=== PATIENT | female | born 1950 | race Caucasian/White ===

== ENCOUNTER → 2016-08-05 | Outpatient (CLI) | payer OTHER ==
[~2016-08-05] VITALS: Ht 165.1 cm; Wt 130.8 kg
[~2016-08-05] MED LIST: ADVIN50/60 INH; ALBU0.08 INH; ALBUAER2 INH; ASPI81TA28 PO; B-COCAP2 PO; CINN500T PO; CLOP1TAB5 PO; CRAN1000 PO; FERR325T5 PO; FLUC150T PO; GFNSR600 PO; GLC500 PO; INSU70IN2 SC; INSUINJ4 SQ; LAMO200T38 PO; LORA10TA5 PO; LORA1TAB13 PO; LPR25 PO; MAGN1CAP2 PO; MULTTAB58 PO; NVLGI SC; OMEG10007 PO; OXCA150T2 PO; OXGN; PANT40TA PO; SALINE INTNAS; SIMV10TA5 PO; SNG10 PO; TIOTCAP INH; TRIA1SPR2 NAE; TYLER650 PO
[2016-08-05 12:06] VITALS: Ht 165.1 cm; Wt 130.8 kg
--- NOTE | 2016-08-05 12:49 | PAT Medication Instructions ---
Service Date August 05, 2016. Current Home Medication List Acetaminophen (Tylenol Arthitis Ext Rel), 1-2 TAB PO PRN PRN for RN Albuterol (Ventolin), 2 PUFFS INH QID PRN for SOB/Wheezing Albuterol Soln (Proventil 0.083% 2.5MG/3ML), 2.5 MG INH QIDPRN Aspirin (Aspirin Ec), 81 MG PO QAM Cinnamon (Cinnamon), 1,000 MG PO BID Clopidogrel Bisulfate (Plavix), 75 MG PO QAM Cranberry (Vaccinium Macrocarp (Cranberry Juice Extract), 1,000 MG PO BID Ferrous Sulfate (Ferrous Sulfate), 325 MG PO HS Fish Oil ([place]-3), 1 CAP PO QAM Fluconazole (Diflucan), 150 MG PO UD PRN for RN Fluticasone Prop/Salmeterol (Advair Diskus 500/50 60 Dose), 1 PUFF INH BID Insulin Aspart (Novolog), 0 SC WM PRN for BLOOD SUGAR >175 Insulin Glargine (Lantus Solostar Pen), 60 UNITS SQ QAM Insulin Isophan/Regular (Novolin 70/30), 60 UNITS SC BID Lamotrigine (Lamictal), 100 MG PO HS Loratadine (Claritin), 10 MG PO HS Lorazepam (Lorazepam), 0.5 MG PO DAILY PRN for Anxiety Magnesium Oxide (Mg Supplement (Magnesium), 400 MG PO BID Metformin HCL (Glucophage *), 1,000 MG PO BID Metoprolol Tartrate (Lopressor), 12.5 MG PO BID Montelukast (Singulair *), 10 MG PO HS Multiple Vitamin (Multivitamin), 1 TAB PO QAM Oxcarbazepine (Trileptal), 150 MG PO HS Oxygen (Oxygen), 2 LITERS NA PRN Pantoprazole (Protonix), 40 MG PO HS Simvastatin (Zocor), 10 MG PO HS Tiotropium [place] (Spiriva Handihaler), 1 CAP INH QPM Triamcinolone Acetonide (Nasal (Nasacort-Aq Nasal Inh), 2 SPRAYS ANIBAL QPM Vitamin B Cmplx/Vitc/Folic Ac (Nephrocaps), 1 CAP PO QAM [Saline Nasal], 1-2 SPRAYS INTNAS BID PRN for director of operations support Instructions For Your Scheduled Surgery Clopidogrel Bisulfate (Plavix), 75 MG PO QAM (patient starting holding 08/02/16 per surgeon and PCP instructions) Fluconazole (Diflucan), 150 MG PO UD PRN for RN (not taking currently- only takes with antibiotics) Aspirin (Aspirin Ec), 81 MG PO QAM (patient will check with surgeon for instructions) Triamcinolone Acetonide (Nasal (Nasacort-Aq Nasal Inh), 2 SPRAYS ANIBAL QPM ( patient will check with surgeon for instructions) Saline Nasal 1-2 SPRAYS INTNAS BID PRN for RN (patient will check with surgeon for instructions) - Hold the following medications starting today 08/05/16 Fish Oil ([place]-3), 1 CAP PO QAM Cranberry (Vaccinium Macrocarp (Cranberry Juice Extract), 1,000 MG PO BID Cinnamon (Cinnamon), 1,000 MG PO BID - Hold the following medications 48 hours prior to surgery: Metformin HCL (Glucophage *), 1,000 MG PO BID (last dose will be in the morning on 08/06/16) - Hold the following medications the morning of surgery: Vitamin B Cmplx/Vitc/Folic Ac (Nephrocaps), 1 CAP PO QAM Multiple Vitamin (Multivitamin), 1 TAB PO QAM Magnesium Oxide (Mg Supplement (Magnesium), 400 MG PO BID Insulin Aspart (Novolog), 0 SC WM PRN for BLOOD SUGAR >175 Insulin Isophan/Regular (Novolin 70/30), 60 UNITS SC BID - Take the following medications the morning of surgery with a sip of water: Metoprolol Tartrate (Lopressor), 12.5 MG PO BID Lorazepam (Lorazepam), 0.5 MG PO DAILY PRN for Anxiety Fluticasone Prop/Salmeterol (Advair Diskus 500/50 60 Dose), 1 PUFF INH BID Albuterol (Ventolin), 2 PUFFS INH QID PRN for SOB/Wheezing (bring with you to hospital on day of surgery) Albuterol Soln (Proventil 0.083% 2.5MG/3ML), 2.5 MG INH QIDPRN (if needed) Acetaminophen (Tylenol Arthitis Ext Rel), 1-2 TAB PO PRN PRN for RN (if needed) - Take the following medications as scheduled the night before surgery: Tiotropium [place] (Spiriva Handihaler), 1 CAP INH QPM Pantoprazole (Protonix), 40 MG PO HS Simvastatin (Zocor), 10 MG PO HS Oxcarbazepine (Trileptal), 150 MG PO HS Montelukast (Singulair *), 10 MG PO HS Metoprolol Tartrate (Lopressor), 12.5 MG PO BID Magnesium Oxide (Mg Supplement (Magnesium), 400 MG PO BID Lorazepam (Lorazepam), 0.5 MG PO DAILY PRN for Anxiety Lamotrigine (Lamictal), 100 MG PO HS Loratadine (Claritin), 10 MG PO HS Insulin Aspart (Novolog), 0 SC WM PRN for BLOOD SUGAR >175 (if needed) Insulin Isophan/Regular (Novolin 70/30), 60 UNITS SC BID Fluticasone Prop/Salmeterol (Advair Diskus 500/50 60 Dose), 1 PUFF INH BID Ferrous Sulfate (Ferrous Sulfate), 325 MG PO HS Albuterol (Ventolin), 2 PUFFS INH QID PRN for SOB/Wheezing Albuterol Soln (Proventil 0.083% 2.5MG/3ML), 2.5 MG INH QIDPRN Acetaminophen (Tylenol Arthitis Ext Rel), 1-2 TAB PO PRN PRN for RN - For Insulin Dependent Diabetic patients: Test blood sugar A.M. of surgery. - If blood sugar is greater than 150, take half of your morning dose of: Lantus 30 units - If blood sugar is less than 150, do not take any: Lantus If you have any questions please call us at [phone] or [phone] ( [facility]) or [phone]
[2016-08-05 13:16] LABS: BASO % 0.7 %; BASO ABS # 0.06 K/uL (0-0.2); COMPLETE YES; EOS % 2.7 %; HEMATOCRIT 38.8 % (37-47); IG% 0.4 %; LYMPH % 28.7 %; LYMPH ABS # 2.63 K/uL (1.2-3.4); MEAN CELL VOLUME 90.7 fL (80-100); MEAN PLATELET VOLUME 10.5 fL (7.4-10.4); MONO % 5.8 %; NEUT % 61.7 %; PLATELET COUNT 187 K/uL (130-400); RED BLOOD COUNT 4.28 M/uL (4.2-5.4); WHITE BLOOD COUNT 9.16 K/uL (4.8-10.8)
== END | disposition home or self-care (01) ==
LOC: C.LAB 08:00 → EDSTATUS 08-08 11:38
PROVIDERS: ATTEND Otolaryngology
DX: Z01.818 Encounter for other preprocedural examination (principal)

== ENCOUNTER → 2016-08-05 | Outpatient (CLI) | payer OTHER ==
[~2016-08-05] MED LIST changes: +ALBINS/ INH; +B-CO1CAP17 PO; +INSDGI SC; +METF1000 PO; +MONT1TAB3 PO; +NVLG SQ; +SPRIN/30 INH; +TRIA1SPR4 NAE; +VNTHFA/IN INH
--- NOTE | 2016-08-05 15:57 | DIAGNOSTIC IMAGING REPORT ---
CT SCAN OF THE PARANASAL SINUSES CLINICAL HISTORY: Sinusitis. COMPARISON STUDY: CT scan of the paranasal sinuses dated 06/25/2011. TECHNIQUE: High-resolution CT scan of the paranasal sinuses is performed. Images are reviewed in the axial, sagittal, and coronal planes. IV contrast was not administered for this examination. CT DOSE: 594.92 mGy.cm FINDINGS: Maxillary antra: Clear bilaterally. A thin bony septation is seen inferiorly on the left. There is a 9 mm cortical defect present within the posterior wall the right maxillary antrum as seen on image #127. Anterior ethmoid sinuses: Clear. Posterior ethmoid sinuses: Clear. Sphenoid sinuses: Clear. Frontal sinuses: Clear. Ostiomeatal complexes: Patent bilaterally. Frontoethmoidal and sphenoethmoidal recesses: Patent bilaterally. Carotid arteries: The carotid arteries are protuberant but covered and without septal attachments. Ethmoid roofs: There is slightly asymmetric elevation of the right ethmoid roof as compared to the left. Nasal turbinates: Normal in appearance. Nasal septum: There is mild left were deviation of the bony nasal septum. Optic nerves: Covered. Orbits: The bony orbits are intact. Orbital contents are normal in appearance noting bilateral ocular lens implants. Calvarium: The skeletal structures are osteopenic. The imaged calvarium is normal in appearance. Mastoid air cells: Well pneumatized. Brain parenchyma: Partially visualized brain parenchyma is within normal limits. IMPRESSION: No paranasal sinus disease is identified. See above. Electronically signed by: Semaj Gonzalez M.D. 08/05/2016 3:56 PM Dictated Date/Time: 08/05/2016 3:52 PM
== END | disposition home or self-care (01) ==
LOC: C.CTS 15:38
PROVIDERS: ATTEND Otolaryngology
DX: J32.9 Chronic sinusitis, unspecified (principal)

== ENCOUNTER 2017-01-18 21:12 | Emergency (ER) | payer OTHER ==
[~2017-01-18] VITALS: Ht 166.4 cm; Wt 131.5 kg
[~2017-01-18 21:12] MED LIST changes: -ALBINS/ INH; -B-CO1CAP17 PO; -GFNSR600 PO; -INSDGI SC; -METF1000 PO; -MONT1TAB3 PO; -NVLG SQ; -SPRIN/30 INH; -TRIA1SPR4 NAE; -VNTHFA/IN INH
[2017-01-18 21:28] VITALS: TEMP 36.9; Ht 166.4 cm; Wt 131.5 kg
[2017-01-18] MEDS ORDERED: ACETAMINOPHEN 325 MG TAB PO STA (21:49)
--- NOTE | 2017-01-18 22:41 | DIAGNOSTIC IMAGING REPORT ---
R SHOULDER MIN 2 VIEWS ROUTINE CLINICAL HISTORY: Right shoulder pain following fall. COMPARISON: Chest CT May 17, 2014. FINDINGS: Alignment of the right shoulder is anatomic. No acute fractures are identified. There is mild to moderate arthritis of the right shoulder. Penetration is suboptimal on this portable exam. IMPRESSION: Technically compromised exam given suboptimal penetration but no acute fracture or dislocation of the right shoulder identified. Electronically signed by: Hola Méndez M.D. 01/18/2017 10:40 PM Dictated Date/Time: 01/18/2017 10:37 PM
--- NOTE | 2017-01-18 22:57 | EMERGENCY ROOM VISIT NOTE ---
History First contact with patient: 21:34 Chief Complaint: SHOULDER PAIN Stated Complaint: Fall, Right shoulder pain History of Present Illness The patient is a 66 year old female who presents to the Emergency Room with complaints of right shoulder pain. The patient states that she was walking into her living room when she tripped over her slippers and fell, striking her right shoulder. The patient reports that she has pain in the anterior right shoulder. She rates her discomfort a 10/10. She states the shoulder pain is worse with movement and she has difficulty moving the shoulder. She denies any previous injuries to the shoulder. She does report hearing a cracking sensation in the shoulder when she fell. The patient denies any dizziness/ lightheadedness related to the fall. Review of Systems A 6 point review of systems was reviewed with the patient with pertinent positives and negatives as per history of present illness. All else were negative. Past Medical/Surgical History Medical Problems: (1) Anxiety disorder (2) Arthritis (3) Asthma (4) Benign hypertension (5) Bipolar disorder (6) Bronchitis (7) COPD (chronic obstructive pulmonary disease) (8) Diabetes mellitus (9) Fracture, ulna, proximal (10) Heart disease (11) Pneumonia (12) Ulcers Family History Diabetes mellitus Social History Smoking Status: Former Smoker Alcohol Use: none Marital Status: Housing Status: lives with family Occupation Status: unemployed Current/Historical Medications Scheduled Aspirin (Aspirin Ec), 81 MG PO QAM Cinnamon (Cinnamon), 1,000 MG PO BID Clopidogrel Bisulfate (Plavix), 75 MG PO QAM Cranberry (Vaccinium Macrocarp (Cranberry Juice Extract), 1,000 MG PO BID Ferrous Sulfate (Ferrous Sulfate), 325 MG PO HS Fish Oil ([place]-3), 1 CAP PO QPM Fluticasone Prop/Salmeterol (Advair Diskus 500/50 60 Dose), 1 PUFF INH BID Home O2 Therapy (Oxygen), 2 LITERS NA PRN Insulin Aspart (Novolog), SQ TIDM Insulin Glargine (Lantus), 60 UNITS SC AMPM Insulin Isophan/Regular (Novolin 70/30), 60 UNITS SC BID Lamotrigine (Lamictal), 100 MG PO HS Loratadine (Claritin), 10 MG PO HS Magnesium Oxide (Mg Supplement (Magnesium), 400 MG PO BID Metformin Hcl (Glucophage), 1,000 MG PO BID Metoprolol Tartrate (Lopressor), 12.5 MG PO BID Montelukast Sodium (Singulair), 10 MG PO DAILY Multiple Vitamin (Multivitamin), 1 TAB PO QAM Pantoprazole (Protonix), 40 MG PO HS Simvastatin (Zocor), 10 MG PO HS Tiotropium [place] (Spiriva Handihaler), 1 CAP INH DAILY Vitamin B Cmplx/Vitc/Folic Ac (Nephrocaps), 1 CAP PO DAILY Scheduled PRN Acetaminophen (Tylenol Arthitis Ext Rel), 1-2 TAB PO PRN PRN for RN Albuterol Hfa (Ventolin Hfa), 2 PUFFS INH Q6H PRN for SOB/Wheezing Albuterol Sulf (Proventil 0.083% 2.5MG/3ML), 2.5 MG INH QID PRN for SOB/Wheezing Fluconazole (Diflucan), 150 MG PO UD PRN for RN Lorazepam (Lorazepam), 0.5 MG PO DAILY PRN for Anxiety [Saline Nasal], 1-2 SPRAYS INTNAS BID PRN for RN Miscellaneous Medications Triamcinolone Acetonide (Nasal (Nasacort Allergy 24Hr), 2 SPRAY ANIBAL Allergies Coded Allergies: Cephalosporins (Verified Allergy, Intermediate, RASH, 01/18/17) Replaces KEFUROX 1.5 G Sulfa Antibiotics (Verified Allergy, Intermediate, "Sulfa Drugs = rash", 01/18/17) Terconazole (Verified Allergy, Intermediate, ITCHING, BURNING, 01/18/17) Penicillin G (Verified Allergy, Mild, RASH, 01/18/17) Amoxicillin (Verified Allergy, Unknown, UNKNOWN, 01/18/17) Clarithromycin (Verified Allergy, Unknown, UNKNOWN, 01/18/17) Clavulanic Acid (Verified Allergy, Unknown, UNKNOWN, 01/18/17) Adhesives (Verified Adverse Reaction, Mild, BAND-AIDS = SKIN IRRITATION, 01/18/17) Physical Exam Vital Signs Date Time Temp Pulse Resp B/P (MAP) Pulse Ox O2 Delivery O2 Flow Rate FiO2 01/18/17 23:28 78 20 146/95 95 01/18/17 21:28 36.9 86 20 137/83 96 Room Air Physical Exam VITALS: Vitals are noted on the nurse's note and reviewed by myself. Vital signs stable. GENERAL: This is a 66-year-old female, in no acute distress, nondiaphoretic, well-developed well-nourished. SKIN: No lacerations, abrasions or ecchymosis. HEART: Regular rate and rhythm without murmurs gallops or rubs. LUNGS: Clear to auscultation bilaterally without wheezes, rales or rhonchi. MUSCULOSKELETAL: There is tenderness to palpation in the anterior right shoulder. There is no tenderness to the posterior lateral shoulder. No tenderness of the clavicle. No tenderness of the cervical spine. Limited range of motion secondary to patient discomfort. Fundraiser strength 5/5. Radial pulse 2+. NEURO: Patient was alert and oriented to person place and time. Normal sensation to light and sharp touch. Medical Decision & Procedures ER Provider Diagnostic Interpretation: R SHOULDER MIN 2 VIEWS ROUTINE FINDINGS: Alignment of the right shoulder is anatomic. No acute fractures are identified. There is mild to moderate arthritis of the right shoulder. Penetration is suboptimal on this portable exam. IMPRESSION: Technically compromised exam given suboptimal penetration but no acute fracture or dislocation of the right shoulder identified. Medications Administered Medications (Trade) Dose Ordered Sig/Vu Route Start Time Stop Time Status Last Admin Dose Admin Acetaminophen (Tylenol Tab) 650 mg NOW STAT PO 01/18/17 21:49 01/18/17 21:50 DC 01/18/17 22:43 650 MG Medical Decision Differential diagnosis includes fracture, contusion, dislocation, ligamentous injury, among others. The patient is a 66-year-old female who presents to the ED complaining of right shoulder pain after a mechanical fall. X-rays were obtained and read by radiology and show no acute findings. The patient was placed in an arm sling for comfort. Conservative measures were discussed. She was encouraged to follow-up with orthopedics as needed for any worsening or new/concerning symptoms. She verbalized her understanding of my assessment and treatment plan and was discharged home in good condition. Blood Pressure Screening: Patient was found to have a slightly elevated blood pressure due to circumstances. I do not believe that the patient requires hypertension monitoring. Medication reconciliation: I attest that I have personally reviewed the patient 's current medication list. Impression Primary Impression: Contusion of right shoulder Departure Information Dispostion Home / Self-Care Condition GOOD Referrals Kopinski, Sabine, D.O. (PCP) Patient Instructions My [facility] Additional Instructions You have been treated in the Emergency Department for Shoulder Pain. For pain control, you can use the following inew-rls-wzyskck medicines (if >12 yo): - Regular strength (325mg/tab) Tylenol (acetaminophen) 2 tabs every 4-6 hours as needed. Do not exceed 12 tablets in a 24 hour period. Avoid taking more than 4 grams (4000 mg) of Tylenol per day. This includes any other sources of acetaminophen you may take on a regular basis. If this is a recent injury (<24 hrs), ice can be applied to the area of pain for the first 3 days to help decrease pain and inflammation. Keep the sling in place for the next few days as needed for pain. Be sure to take the arm out of the sling a few times a day and perform range of motion. Follow-up with orthopedics if you have persistent pain in 4-5 days or any new/ concerning symptoms. Return to the Emergency Department if your current symptoms worsen despite treatment course outlined above, or if you develop any of the following symptoms : intractable pain despite aforementioned treatment course or new onset of numbness or tingling of the arm. Problem Qualifiers Primary Impression: Contusion of right shoulder Encounter type: initial encounter Qualified Codes: S40.011A - Contusion of right shoulder, initial encounter
[2017-01-18] MEDS ORDERED: TRIA1SPR4 NAE (23:04)
[2017-01-18] MEDS ORDERED: SPRIN/30 INH (23:04)
[2017-01-18] MEDS ORDERED: INSDGI SC (23:04)
[2017-01-18] MEDS ORDERED: B-CO1CAP17 PO (23:04)
[2017-01-18] MEDS ORDERED: VNTHFA/IN INH (23:04)
[2017-01-18] MEDS ORDERED: ALBINS/ INH (23:04)
[2017-01-18] MEDS ORDERED: MONT1TAB3 PO (23:04)
[2017-01-18] MEDS ORDERED: NVLG SQ (23:04)
[2017-01-18] MEDS ORDERED: METF1000 PO (23:04)
[2017-01-18 23:28] VITALS: BP 146/95; PULSE 78; O2SAT 95
== END 2017-01-18 23:29 | disposition home or self-care (01) ==
LOC: EDBD 21:12 → C.EDB 21:29
DX: S40.011A Contusion of right shoulder, initial encounter (principal); W01.10XA Fall on same level from slipping, tripping and stumbling with subsequent striking against unspecified object, initial encounter; Y93.01 Activity, walking, marching and hiking; Y99.8 Other external cause status; Y92.008 Other place in unspecified non-institutional (private) residence as the place of occurrence of the external cause; M19.90 Unspecified osteoarthritis, unspecified site; J45.909 Unspecified asthma, uncomplicated; J44.9 Chronic obstructive pulmonary disease, unspecified; E11.9 Type 2 diabetes mellitus without complications; F31.9 Bipolar disorder, unspecified; Z87.01 Personal history of pneumonia (recurrent); Z87.891 Personal history of nicotine dependence; Z83.3 Family history of diabetes mellitus; Z79.02 Long term (current) use of antithrombotics/antiplatelets; Z79.4 Long term (current) use of insulin; Z79.82 Long term (current) use of aspirin; Z79.899 Other long term (current) drug therapy

== ENCOUNTER 2017-06-26 11:56 | Inpatient (IN) | payer OTHER ==
[~2017-06-26] VITALS: Ht 165.1 cm; Wt 129.1 kg
[~2017-06-26 11:56] MED LIST changes: +ALBINS/ INH; -ALBU0.08 INH; -ALBUAER2 INH; +B-CO1CAP17 PO; -B-COCAP2 PO; -GLC500 PO; +INSDGI SC; -INSUINJ4 SQ; +LAMO200T35 PO; -LAMO200T38 PO; -LORA10TA5 PO; +LORA10TA6 PO; +METF1000 PO; +MONT1TAB3 PO; +NVLG SQ; -NVLGI SC; -OXCA150T2 PO; -SNG10 PO; +SPRIN/30 INH; -TIOTCAP INH; -TRIA1SPR2 NAE; +TRIA1SPR4 NAE; +VNTHFA/IN INH
[2017-06-26] MEDS ORDERED: SODIUM CHLORIDE 0.9% 500ML 500 ML IV STA ×2 (12:11→13:34)
[2017-06-26 12:27] LABS: BASO % 0.5 %; BASO ABS # 0.05 K/uL (0-0.2); EOS ABS # 0.29 K/uL (0-0.5); HEMATOCRIT 42.4 % (37-47); HEMOGLOBIN 14.1 g/dL (12.0-16.0); IG# 0.04 K/uL (0.00-0.02); LYMPH % 31.2 %; LYMPH ABS # 3.01 K/uL (1.2-3.4); MEAN CELL VOLUME 91.6 fL (80-100); MEAN CORPUSCULAR HEMOGLOBIN 30.5 pg (25-34); MEAN CORPUSCULAR HGB CONC 33.3 g/dl (32-36); MEAN PLATELET VOLUME 10.7 fL (7.4-10.4); MONO % 8.9 %; MONO ABS # 0.86 K/uL (0.11-0.59); PLATELET COUNT 212 K/uL (130-400); RED CELL DISTRIBUTION WIDTH CV 14.6 % (11.5-14.5); RED CELL DISTRIBUTION WIDTH SD 49.6 fL (36.4-46.3); WHITE BLOOD COUNT 9.65 K/uL (4.8-10.8)
--- NOTE | 2017-06-26 12:28 | EMERGENCY ROOM VISIT NOTE ---
History Report prepared by Mike: Irma Daigle Under the Supervision of: Dr. David Lester M.D. First contact with patient: 12:08 Stated Complaint: afib History of Present Illness The patient is a 66 year old female who presents to the Emergency Room with complaints of intermittent heart palpitations beginning two weeks ago. The patient is coming from Dr. Wells-Cardiology's office where she was being seen for her palpitations and was found in Atrial fibrillation. The patient had an episode of A-fib in 2012 which resided without intervention. She notes some shortness of breath and a cough. She denies any chest pain, fever, body aches, or chills. The patient states she is getting over a sinus infection. She reports she stopped her Levaquin on Thursday. The patient is on Plavix. The patient follows up with Dr. Irene. The patient has a history of septic pneumonic, lymphedema, and C.Diff Source of History: patient Onset: two weeks ago Position: other (generalized) Quality: other (palpations) Timing: intermittent Associated Symptoms: + cough, + SOB, No fevers, No chills, No chest pain Review of Systems See HPI for pertinent positives and negatives. A total of ten systems were reviewed and were otherwise negative. Past Medical & Surgical Medical Problems: (1) Arthritis (2) COPD (chronic obstructive pulmonary disease) (3) Diabetes mellitus, type II (4) H/O: CVA (cerebrovascular accident) (5) HLD (hyperlipidemia) (6) Mood disorder (7) REENA (obstructive sleep apnea) (8) Paroxysmal atrial fibrillation (9) RBBB Social History Problems: (1) Benign hypertension (2) Bipolar disorder Family History Diabetes mellitus Social History Smoking Status: Former Smoker Alcohol Use: none Marital Status: Housing Status: lives with family Occupation Status: unemployed Current/Historical Medications Scheduled Aspirin (Aspirin Ec), 81 MG PO QAM Atorvastatin (Lipitor), 40 MG PO DAILY Cinnamon (Cinnamon), 1,000 MG PO BID Clopidogrel Bisulfate (Plavix), 75 MG PO QAM Cranberry (Vaccinium Macrocarp (Cranberry Juice Extract), 1,000 MG PO BID Ferrous Sulfate (Ferrous Sulfate), 325 MG PO BID Fish Oil ([place]-3), 1 CAP PO QPM Fluticasone Prop/Salmeterol (Advair Diskus 500/50 60 Dose), 1 PUFF INH BID Home O2 Therapy (Oxygen), 2 LITERS NA PRN Insulin Aspart Protamine & Asp (Novolog Mix 70/30), 40 UNITS SC QPM Insulin Glargine (Lantus), 40 UNITS SC AMPM Insulin Isophan/Regular (Novolin 70/30), 45 UNITS SC QAM Lamotrigine (Lamictal), 100 MG PO HS Levocetirizine Dihydrochloride (Xyzal Allergy 24Hr), 5 MG PO DAILY Liraglutide (Victoza), 1 DOSE SQ DAILY Magnesium Oxide (Mg Supplement (Magnesium), 400 MG PO BID Metformin Hcl (Glucophage), 1,000 MG PO BID Metoprolol Tartrate (Lopressor), 12.5 MG PO BID Montelukast Sodium (Singulair), 10 MG PO DAILY Multiple Vitamin (Multivitamin), 1 TAB PO QAM Omeprazole (Cvs Omeprazole), 20 MG PO DAILY Pantoprazole (Protonix), 40 MG PO HS Tiotropium [place] (Spiriva Handihaler), 1 CAP INH DAILY Vitamin B Cmplx/Vitc/Folic Ac (Nephrocaps), 1 CAP PO DAILY Scheduled PRN Acetaminophen (Tylenol Arthitis Ext Rel), 1-2 TAB PO PRN PRN for RN Albuterol Hfa (Ventolin Hfa), 2 PUFFS INH Q6H PRN for SOB/Wheezing Albuterol Sulf (Proventil 0.083% 2.5MG/3ML), 2.5 MG INH QID PRN for SOB/Wheezing Fluconazole (Diflucan), 150 MG PO UD PRN for RN Lorazepam (Lorazepam), 0.5 MG PO DAILY PRN for Anxiety Miscellaneous Medications Triamcinolone Acetonide (Nasal (Nasacort Allergy 24Hr), 2 SPRAY ANIBAL Allergies Coded Allergies: Cephalosporins (Verified Allergy, Intermediate, RASH, 06/26/17) Replaces KEFUROX 1.5 G Sulfa Antibiotics (Verified Allergy, Intermediate, "Sulfa Drugs = rash", ) Terconazole (Verified Allergy, Intermediate, ITCHING, BURNING, 06/26/17) Penicillin G (Verified Allergy, Mild, RASH, 06/26/17) Amoxicillin (Verified Allergy, Unknown, UNKNOWN, 06/26/17) Clarithromycin (Verified Allergy, Unknown, UNKNOWN, 06/26/17) Clavulanic Acid (Verified Allergy, Unknown, UNKNOWN, 06/26/17) Adhesives (Verified Adverse Reaction, Mild, BAND-AIDS = SKIN IRRITATION, ) Physical Exam Vital Signs Date Time Temp Pulse Resp B/P (MAP) Pulse Ox O2 Delivery O2 Flow Rate FiO2 06/26/17 14:18 94 06/26/17 13:26 91 16 95 Room Air 06/26/17 13:01 137 16 104/80 93 Room Air 06/26/17 12:50 139 20 124/94 94 Room Air 06/26/17 12:21 152 06/26/17 12:16 95 Room Air 06/26/17 12:11 36.3 142 22 120/86 95 Room Air 06/26/17 12:00 95 Room Air Physical Exam GENERAL: Awake, alert, fatigued-appearing, in no distress HENT: Normocephalic, atraumatic. Oropharynx unremarkable. Dry mucus membranes. EYES: Normal conjunctiva. Sclera non-icteric. NECK: Supple. No nuchal rigidity. FROM. No JVD. RESPIRATORY: Clear to auscultation. CARDIAC: Irregularly irregular rhythm. Extremities warm and well perfused. Pulses equal. ABDOMEN: Soft, non-distended. No tenderness to palpation. No rebound or guarding. No masses. RECTAL: Deferred. MUSCULOSKELETAL: Chest examination reveals no tenderness. The back is symmetrical on inspection without obvious abnormality. There is no CVA tenderness to palpation. No joint edema. LOWER EXTREMITIES: Calves are equal size bilaterally and non-tender. No edema. No discoloration. NEURO: Normal sensorium. No sensory or motor deficits noted. SKIN: No rash or jaundice noted. Medical Decision & Procedures ER Provider Diagnostic Interpretation: Radiology results as stated below per my review and radiologist interpretation: CHEST ONE VIEW PORTABLE FINDINGS: Mild stable cardiomegaly. Chronic prominence of pulmonary vasculature. Diaphragms are smooth. No focal infiltrate. IMPRESSION: Slight chronic prominence of the pulmonary vasculature. No acute process. The above report was generated using voice recognition software. It may contain grammatical, syntax or spelling errors. Electronically signed by: Anup Mcmullen M.D. Laboratory Results 06/26/17 12:00 Red Blood Count 4.63, Mean Corpuscular Volume 91.6, Mean Corpuscular Hemoglobin 30.5, Mean Corpuscular Hemoglobin Concent 33.3, Mean Platelet Volume 10.7, Neutrophils (%) (Auto) 56.0, Lymphocytes (%) (Auto) 31.2, Monocytes (%) (Auto) 8.9, Eosinophils (%) (Auto) 3.0, Basophils (%) (Auto) 0.5, Neutrophils # (Auto) 5.40, Lymphocytes # (Auto) 3.01, Monocytes # (Auto) 0.86, Eosinophils # (Auto) 0.29, Basophils # (Auto) 0.05 06/26/17 12:00 Test 06/26/17 12:00 06/26/17 12:20 06/26/17 12:38 White Blood Count 9.65 K/uL (4.8-10.8) Red Blood Count 4.63 M/uL (4.2-5.4) Hemoglobin 14.1 g/dL (12.0-16.0) Hematocrit 42.4 % (37-47) Mean Corpuscular Volume 91.6 fL (80-100) Mean Corpuscular Hemoglobin 30.5 pg (25-34) Mean Corpuscular Hemoglobin Concent 33.3 g/dl (32-36) Platelet Count 212 K/uL (130-400) Mean Platelet Volume 10.7 fL (7.4-10.4) Neutrophils (%) (Auto) 56.0 % Lymphocytes (%) (Auto) 31.2 % Monocytes (%) (Auto) 8.9 % Eosinophils (%) (Auto) 3.0 % Basophils (%) (Auto) 0.5 % Neutrophils # (Auto) 5.40 K/uL (1.4-6.5) Lymphocytes # (Auto) 3.01 K/uL (1.2-3.4) Monocytes # (Auto) 0.86 K/uL (0.11-0.59) Eosinophils # (Auto) 0.29 K/uL (0-0.5) Basophils # (Auto) 0.05 K/uL (0-0.2) RDW Standard Deviation 49.6 fL (36.4-46.3) RDW Coefficient of Variation 14.6 % (11.5-14.5) Immature Granulocyte % (Auto) 0.4 % Immature Granulocyte # (Auto) 0.04 K/uL (0.00-0.02) Prothrombin Time 10.5 SECONDS (9.0-12.0) Prothromb Time International Ratio 1.0 (0.9-1.1) Anion Gap 9.0 mmol/L (3-11) Est Creatinine Clear Calc Drug Dose 101.8 ml/min Estimated GFR () 96.1 Estimated GFR (Non- 82.9 BUN/Creatinine Ratio 18.7 (10-20) Calcium Level 8.9 mg/dl (8.5-10.1) Magnesium Level 1.8 mg/dl (1.8-2.4) Total Bilirubin 0.6 mg/dl (0.2-1) Direct Bilirubin 0.2 mg/dl (0-0.2) Aspartate Amino Transf (AST/SGOT) 31 U/L (15-37) Alanine Aminotransferase (ALT/SGPT) 43 U/L (12-78) Alkaline Phosphatase 98 U/L (45-117) Pro-B-Type Natriuretic Peptide 372 pg/ml (0-900) Total Protein 6.8 gm/dl (6.4-8.2) Albumin 3.7 gm/dl (3.4-5.0) Lipase 126 U/L (73-393) Thyroid Stimulating Hormone (TSH) 1.510 uIu/ml (0.300-4.500) Hepatitis C Antibody Screen NEG (NEG) Influenza Type A (RT-PCR) Neg for Influ A (NEG) Influenza Type B (RT-PCR) Neg for Influ B (NEG) Urine Color DK YELLOW Urine Appearance CLEAR (CLEAR) Urine pH 5.5 (4.5-7.5) Urine Specific Vader 1.018 (1.000-1.030) Urine Protein NEG (NEG) Urine Glucose (UA) NEG (NEG) Urine Ketones NEG (NEG) Urine Occult Blood NEG (NEG) Urine Nitrite NEG (NEG) Urine Bilirubin NEG (NEG) Urine Urobilinogen NEG (NEG) Urine Leukocyte Esterase MODERATE (NEG) Urine WBC (Auto) 5-10 /hpf (0-5) Urine RBC (Auto) 0-4 /hpf (0-4) Urine Hyaline Casts (Auto) 1-5 /lpf (0-5) Urine Epithelial Cells (Auto) >30 /lpf (0-5) Urine Bacteria (Auto) NEG (NEG) Laboratory results reviewed by me Medications Administered Medications (Trade) Dose Ordered Sig/Vu Route Start Time Stop Time Status Last Admin Dose Admin Sodium Chloride 500 ml @ 999 mls/hr Q31M STAT IV 06/26/17 12:11 06/26/17 12:41 DC 06/26/17 12:38 999 MLS/HR Sodium Chloride 500 ml @ 999 mls/hr Q31M STAT IV 06/26/17 13:34 06/26/17 14:04 DC 06/26/17 13:35 999 MLS/HR ECG Per My Interpretation Indication: palpitations Rate (beats per minute): 138 Rhythm: sinus tachycardia Findings: no acute ischemic change, other (normal axis) Comparison ECG Date: 08/05/16 Change: increased rate compared to prior. REPEAT EKG: Normal sinus 81 bpm, normal axis, RBBB, no acute ischemia. ED Course 1210: The patient was evaluated in room A9. A complete history and physical exam was performed. 1512: I discussed the patient with Dr. Irene Cardiology - He recommends bringing the patient into the hospital for further evaluation. 1527: I updated the patient on the treatment plan and she is agreeable. 1530: I discussed the patient with Dr. George - He will evaluate the patient for further treatment. Medical Decision I reviewed the patient's past medical history, medications, and the nursing notes as described above. Differential diagnosis: Etiologies such as premature contractions, electrolyte abnormality, cardiac dysrhythmia, thyroid dysfunction, pulmonary embolism, infection, gastrointestinal, as well as others were entertained. The patient is a 66-year-old woman with a past medical history of paroxysmal atrial fibrillation who presents to the emergency department for evaluation and admission with atrial fibrillation with RVR from the cardiology clinic (Seen by Dr. Wells) after presenting there for an evaluation for palpitations per [facility]. On arrival the patient is fatigued appearing but no acute distress, afebrile with heart rate in the 140s and vital signs otherwise stable. EKG on arrival shows a regular tachycardia that appears consistent with aflutter with 2 -1 block. Was given 500 cc of NS with subsequent improvement in her rate to the low 100s. The patient was then given additional 500 cc with further improvement with heart rate into the 70s and 80s with repeat EKG demonstrating normal sinus rhythm. Labs otherwise unremarkable including WBC within normal limits. Chest x-ray negative. Case was discussed with Dr. Mosley, the patient's photo studio assistant who is also on-call, who agrees with plan for admission to optimize the patient's rate controlling medications and evaluate the patient for additional anticoagulation given her elevated chads vascular score. Currently the patient is on Aspirin and Plavix. Case was discussed with Patt Velasquez hospitalist, who will admit the patient for further management. Medication Reconcilliation Current Medication List: was personally reviewed by me Blood Pressure Screening Patient's blood pressure: Normal blood pressure Consults Time Called: 1506 Consulting Physician: Dr. Irene Cardiology Returned Call: 1512 I discussed the patient with Dr. Irene Cardiology - He recommends bringing the patient into the hospital for further evaluation. Additional Consults: Time Called: 1516 Consulted Physician: Dr. George Returned Call: 1530 Additional Comments: I discussed the patient with Dr. George - He will evaluate the patient for further treatment. Impression Primary Impression: Atrial flutter with rapid ventricular response Scribe Attestation The scribe's documentation has been prepared under my direction and personally reviewed by me in its entirety. I confirm that the note above accurately reflects all work, treatment, procedures, and medical decision making performed by me. Departure Information Dispostion Being Evaluated By Hospitalist Sabine Mccollum D.O. (PCP)
[2017-06-26 12:35] LABS: ALBUMIN 3.7 gm/dl (3.4-5.0); ALT/SGPT 43 U/L (12-78); BLOOD UREA NITROGEN 14 mg/dl (7-18); CALCIUM 8.9 mg/dl (8.5-10.1); CARBON DIOXIDE 23 mmol/L (21-32); CREATININE 0.76 mg/dl (0.60-1.20); GLUCOSE 139 mg/dl (70-99); LIPASE 126 U/L (73-393); SODIUM 137 mmol/L (136-145)
[2017-06-26] MEDS ORDERED: OMEP20TA40 PO (12:39)
[2017-06-26] MEDS ORDERED: LIRA18IN SQ (12:39)
[2017-06-26] MEDS ORDERED: NVLGI7030 SC (12:39)
[2017-06-26] MEDS ORDERED: LEVO5TAB7 PO (12:39)
[2017-06-26] MEDS ORDERED: ATOR-24 PO (12:39)
[2017-06-26 12:46] LABS: ALKALINE PHOSPHATASE 98 U/L (45-117); AST/SGOT 31 U/L (15-37); TOTAL PROTEIN 6.8 gm/dl (6.4-8.2)
--- NOTE | 2017-06-26 12:51 | DIAGNOSTIC IMAGING REPORT ---
CHEST ONE VIEW PORTABLE CLINICAL HISTORY: CHEST PAIN dyspnea COMPARISON STUDY: 04/18/2015 FINDINGS: Mild stable cardiomegaly. Chronic prominence of pulmonary vasculature. Diaphragms are smooth. No focal infiltrate. IMPRESSION: Slight chronic prominence of the pulmonary vasculature. No acute process. The above report was generated using voice recognition software. It may contain grammatical, syntax or spelling errors. Electronically signed by: Anup Mcmullen M.D. 06/26/2017 12:50 PM Dictated Date/Time: 06/26/2017 12:49 PM
[2017-06-26 14:46] LABS: INFLUENZA A PCR Neg for Influ A (NEG); INFLUENZA B PCR Neg for Influ B (NEG)
[2017-06-26] MEDS ORDERED: ALUMINUM/MAGNESIUM/SIMETH (MAALOX MAX) 30 ML UDC PO PRN (15:45)
[2017-06-26] MEDS ORDERED: NITROGLYCERIN 0.4 MG SL PER TAB CHARGE SL PRN (15:45)
[2017-06-26] MEDS ORDERED: POLYETHYLENE (MIRALAX) 17 GM PACK PO PRN (15:45)
[2017-06-26] MEDS ORDERED: MAGNESIUM HYDROXIDE SUSP 30 ML UDC PO PRN (15:45)
[2017-06-26] MEDS ORDERED: ALBUTEROL HFA 8 GM INHALER INH PRN (16:15)
[2017-06-26] MEDS ORDERED: DABIGATRAN ELEXILATE 75 MG CAP PO ONE (16:15)
[2017-06-26] MEDS ORDERED: ALBUTEROL 0.083% NEBU SOLN 3 ML VIAL INH PRN (16:15)
[2017-06-26] MEDS ORDERED: METOPROLOL TARTRATE 25 MG TAB PO ONE (16:15)
[2017-06-26] MEDS ORDERED: LORAZEPAM 0.5 MG TAB PO PRN (16:15)
--- NOTE | 2017-06-26 16:55 | History and Physical ---
History & Physical Date & Time of Service: Jun 26, 2017 at 16:54 Chief Complaint: afib Primary Care Physician: Sabine Mosley D.O. History of Present Illness Source: patient, clinic records, hospital records Patient is a 66-year-old female with a past medical history of DM II, COPD, paroxysmal A. fib, history of CVA (on aspirin, Plavix) and other problems mentioned below who presents from cardiology clinic with atrial flutter in RVR. Patient endorses palpitations over the past 2 weeks with associated shortness of breath and near syncope. She is recovering from acute sinusitis and finished a course of Levaquin this past Thursday. EKG in clinic today showed a flutter with RVR with a heart rate in 140s. Patient was sent over by Dr. Wells to the ED for further evaluation. Upon arrival, patient was found in a flutter with RVR with a 2:1 block at 138 bpm. Spontaneously converted to normal sinus with a rate of 81 bpm. Patient has had one previous episode of an atrial arrhythmia during a 2013 hospital admission for septic pneumonia in the ICU. Was found to be in A. fib with RVR then and required cardioversion. Was sent home on metoprolol and Pradaxa and followed with cardiology clinic but became asymptomatic and eventually Pradaxa was discontinued. Continues to take Toprol 12.5mg BID. Recently patient began to experience more frequent palpitations and had a 24- hour Holter monitor evaluation, which showed very frequent supraventricular ectopy as well as episodes of A. fib with RVR. HR varied from 61-185 bpm during 24 hour period. Denies any fever, chills, lightheadedness, headache, visual, abdominal pain, nausea, vomiting, or bladder changes, LE swelling. Echocardiogram from 2016 shows normal EF, no wall motion abnormalities. Follows with Dr. Mosley for cardio. Past Medical/Surgical History Medical Problems: (1) Arthritis Status: Chronic (2) COPD (chronic obstructive pulmonary disease) Status: Chronic (3) Diabetes mellitus, type II Status: Chronic (4) H/O: CVA (cerebrovascular accident) Status: Chronic (5) HLD (hyperlipidemia) Status: Chronic (6) Mood disorder Status: Chronic (7) REENA (obstructive sleep apnea) Status: Chronic (8) Paroxysmal atrial fibrillation Status: Chronic (9) RBBB Status: Chronic Social History Problems: (1) Benign hypertension Status: Chronic (2) Bipolar disorder Status: Chronic Family History Diabetes mellitus Social History Smoking Status: Former Smoker Alcohol Use: none Marital Status: Housing status: lives with significant other Occupational Status: unemployed Immunizations History of Influenza Vaccine: No Influenza Vaccine Date: Jan 05, 2005 History of Tetanus Vaccine?: Yes Tetanus Immunization Date: Nov 17, 2010 History of Pneumococcal: Yes History of Hepatitis B Vaccine: Yes Allergies Coded Allergies: Cephalosporins (Verified Allergy, Intermediate, RASH, 06/26/17) Replaces KEFUROX 1.5 G Sulfa Antibiotics (Verified Allergy, Intermediate, "Sulfa Drugs = rash", ) Terconazole (Verified Allergy, Intermediate, ITCHING, BURNING, 06/26/17) Penicillin G (Verified Allergy, Mild, RASH, 06/26/17) Amoxicillin (Verified Allergy, Unknown, UNKNOWN, 06/26/17) Clarithromycin (Verified Allergy, Unknown, UNKNOWN, 06/26/17) Clavulanic Acid (Verified Allergy, Unknown, UNKNOWN, 06/26/17) Adhesives (Verified Adverse Reaction, Mild, BAND-AIDS = SKIN IRRITATION, ) Home Medications Scheduled Aspirin (Aspirin Ec), 81 MG PO QAM Atorvastatin (Lipitor), 40 MG PO DAILY Cinnamon (Cinnamon), 1,000 MG PO BID Clopidogrel Bisulfate (Plavix), 75 MG PO QAM Cranberry (Vaccinium Macrocarp (Cranberry Juice Extract), 1,000 MG PO BID Ferrous Sulfate (Ferrous Sulfate), 325 MG PO BID Fish Oil ([place]-3), 1 CAP PO QPM Fluticasone Prop/Salmeterol (Advair Diskus 500/50 60 Dose), 1 PUFF INH BID Home O2 Therapy (Oxygen), 2 LITERS NA PRN Insulin Aspart Protamine & Asp (Novolog Mix 70/30), 40 UNITS SC QPM Insulin Glargine (Lantus), 40 UNITS SC AMPM Insulin Isophan/Regular (Novolin 70/30), 45 UNITS SC QAM Lamotrigine (Lamictal), 100 MG PO HS Levocetirizine Dihydrochloride (Xyzal Allergy 24Hr), 5 MG PO DAILY Liraglutide (Victoza), 1 DOSE SQ DAILY Magnesium Oxide (Mg Supplement (Magnesium), 400 MG PO BID Metformin Hcl (Glucophage), 1,000 MG PO BID Metoprolol Tartrate (Lopressor), 12.5 MG PO BID Montelukast Sodium (Singulair), 10 MG PO DAILY Multiple Vitamin (Multivitamin), 1 TAB PO QAM Omeprazole (Cvs Omeprazole), 20 MG PO DAILY Pantoprazole (Protonix), 40 MG PO HS Tiotropium [place] (Spiriva Handihaler), 1 CAP INH DAILY Vitamin B Cmplx/Vitc/Folic Ac (Nephrocaps), 1 CAP PO DAILY Scheduled PRN Acetaminophen (Tylenol Arthitis Ext Rel), 1-2 TAB PO PRN PRN for RN Albuterol Hfa (Ventolin Hfa), 2 PUFFS INH Q6H PRN for SOB/Wheezing Albuterol Sulf (Proventil 0.083% 2.5MG/3ML), 2.5 MG INH QID PRN for SOB/Wheezing Fluconazole (Diflucan), 150 MG PO UD PRN for RN Lorazepam (Lorazepam), 0.5 MG PO DAILY PRN for Anxiety Miscellaneous Medications Triamcinolone Acetonide (Nasal (Nasacort Allergy 24Hr), 2 SPRAY ANIBAL Review of Systems Ten systems reviewed and negative except as noted in the HPI. Physical Exam Vital Signs Date Time Temp Pulse Resp B/P (MAP) Pulse Ox O2 Delivery O2 Flow Rate FiO2 06/26/17 16:14 78 18 154/99 95 Room Air 06/26/17 14:18 94 06/26/17 13:26 91 16 95 Room Air 06/26/17 13:01 137 16 104/80 93 Room Air 06/26/17 12:50 139 20 124/94 94 Room Air 06/26/17 12:21 152 06/26/17 12:16 95 Room Air 06/26/17 12:11 36.3 142 22 120/86 95 Room Air 06/26/17 12:00 95 Room Air General Appearance: WD/WN, no apparent distress Head: normocephalic, atraumatic Eyes: normal inspection, PERRL, sclerae normal ENT: normal ENT inspection, hearing grossly normal, pharynx normal Neck: supple, thyroid normal, no JVD, trachea midline Respiratory/Chest: chest non-tender, lungs clear, normal breath sounds, no respiratory distress, no accessory muscle use Cardiovascular: regular rate, rhythm, no murmur, normal peripheral pulses, + pertinent finding (Trace bilateral edema. Wearing nick hose ) Abdomen/GI: non tender, soft, no organomegaly Extremities/Musculoskelatal: normal inspection, no calf tenderness, normal range of motion, non-tender Neurologic/Psych: no motor/sensory deficits, alert, normal mood/affect, oriented x 3 Skin: normal color, warm/dry Diagnostics Laboratory Results Results Past 24 Hours Test 06/26/17 12:00 06/26/17 12:20 06/26/17 12:38 Range/Units White Blood Count 9.65 4.8-10.8 K/uL Red Blood Count 4.63 4.2-5.4 M/uL Hemoglobin 14.1 12.0-16.0 g/dL Hematocrit 42.4 37-47 % Mean Corpuscular Volume 91.6 80-100 fL Mean Corpuscular Hemoglobin 30.5 25-34 pg Mean Corpuscular Hemoglobin Concent 33.3 32-36 g/dl Platelet Count 212 130-400 K/uL Mean Platelet Volume 10.7 7.4-10.4 fL Neutrophils (%) (Auto) 56.0 % Lymphocytes (%) (Auto) 31.2 % Monocytes (%) (Auto) 8.9 % Eosinophils (%) (Auto) 3.0 % Basophils (%) (Auto) 0.5 % Neutrophils # (Auto) 5.40 1.4-6.5 K/uL Lymphocytes # (Auto) 3.01 1.2-3.4 K/uL Monocytes # (Auto) 0.86 0.11-0.59 K/uL Eosinophils # (Auto) 0.29 0-0.5 K/uL Basophils # (Auto) 0.05 0-0.2 K/uL RDW Standard Deviation 49.6 36.4-46.3 fL RDW Coefficient of Variation 14.6 11.5-14.5 % Immature Granulocyte % (Auto) 0.4 % Immature Granulocyte # (Auto) 0.04 0.00-0.02 K/uL Prothrombin Time 10.5 9.0-12.0 SECONDS Prothromb Time International Ratio 1.0 0.9-1.1 Sodium Level 137 136-145 mmol/L Potassium Level 4.0 3.5-5.1 mmol/L Chloride Level 105 98-107 mmol/L Carbon Dioxide Level 23 21-32 mmol/L Anion Gap 9.0 3-11 mmol/L Blood Urea Nitrogen 14 7-18 mg/dl Creatinine 0.76 0.60-1.20 mg/dl Est Creatinine Clear Calc Drug Dose 101.8 ml/min Estimated GFR () 96.1 Estimated GFR (Non- 82.9 BUN/Creatinine Ratio 18.7 10-20 Random Glucose 139 70-99 mg/dl Calcium Level 8.9 8.5-10.1 mg/dl Magnesium Level 1.8 1.8-2.4 mg/dl Total Bilirubin 0.6 0.2-1 mg/dl Direct Bilirubin 0.2 0-0.2 mg/dl Aspartate Amino Transf (AST/SGOT) 31 15-37 U/L Alanine Aminotransferase (ALT/SGPT) 43 12-78 U/L Alkaline Phosphatase 98 45-117 U/L Troponin I < 0.015 0-0.045 ng/ml Pro-B-Type Natriuretic Peptide 372 0-900 pg/ml Total Protein 6.8 6.4-8.2 gm/dl Albumin 3.7 3.4-5.0 gm/dl Lipase 126 73-393 U/L Thyroid Stimulating Hormone (TSH) 1.510 0.300-4.500 uIu/ml Influenza Type A (RT-PCR) Neg for Influ A NEG Influenza Type B (RT-PCR) Neg for Influ B NEG Urine Color DK YELLOW Urine Appearance CLEAR CLEAR Urine pH 5.5 4.5-7.5 Urine Specific [place] 1.018 1.000-1.030 Urine Protein NEG NEG Urine Glucose (UA) NEG NEG Urine Ketones NEG NEG Urine Occult Blood NEG NEG Urine Nitrite NEG NEG Urine Bilirubin NEG NEG Urine Urobilinogen NEG NEG Urine Leukocyte Esterase MODERATE NEG Urine WBC (Auto) 5-10 0-5 /hpf Urine RBC (Auto) 0-4 0-4 /hpf Urine Hyaline Casts (Auto) 1-5 0-5 /lpf Urine Epithelial Cells (Auto) >30 0-5 /lpf Urine Bacteria (Auto) NEG NEG Diagnostic Radiology CXR: IMPRESSION: Slight chronic prominence of the pulmonary vasculature. No acute process. EKG Initial EKG: Probable Atrial flutter with 2 to 1 block at 138 bpm Right bundle branch block (previously noted) Repeat EKG: Normal sinus rhythm at 81 bpm RBBB Impression Assessment and Plan Patient is a 66-year-old female with a past medical history of DM II, COPD, paroxysmal A. fib, history of CVA (on Plavix) and other problems mentioned below who presents from cardiology clinic with atrial flutter in RVR. A flutter in RVR: resolved -H/o A Fib with RVR in 2012 -Recent 24H Holter monitor with frequent supraventricular ectopy as well as episodes of A. fib with RVR -Initially in A flutter with 2:1 block at 138 bpm -Spontaneously converted to NSR at 81 bpm -Electrolytes, TSH wnl -Cardio consulted -Increased Toprol to 25mg BID -Restart Pradaxa, discontinue Plavix -Echo tomorrow -Monitor on telemetry DM II: -Most recent a1c of 8.1 in Mar 2017 -Recently started following with [facility] endo with improvement -Hold victoza, metformin, 70/30 insulin while in-patient -Continue Lantus 40U BID with tight correction factor and CHO ratio -BSG checks AC HS -Diabetic diet COPD: -At baseline -No SOB, wheezing -Cont home albuterol, nebs PRN, Singulair H/o CVA: -Continue baby aspirin -Hold Plavix since restarting Pradaxa Mood disorder: -Cont Lamictal, Ativan PRN GERD: -Cont PPI DVT Ppx: Pradaxa Code status: FULL per discussion with patient PCP: Marion Mosley Dispo: Admitted to telemetry. Discharge planning ordered once medically appropriate. Patient seen in collaboration with Dr. Lind . Please see addendum. ATTENDING ADDENDUM This is a 66-year-old female with past medical history of paroxysmal A. fib, type 2 diabetes, history of CVA on Plavix. Sent from cardiology office as patient was found to be in atrial flutter 2:1 heart rate 150 Physical exam: Please refer to physical exam by Ina Piedra PA-C assessment and plan: A. fib RVR/A flutter: Converted to sinus rhythm in ER, after getting IV fluids bolus Patient will be admitted to telemetry Cardiology consulted/appreciate input Toprol dose increased to 25 mg twice daily Patient is started with Pradaxa, DC Plavix Monitor serial cardiac markers, resting echo Please refer to documentation by Ina Piedra PA-C for further discussion of other chronic issues Graciela Lind MD Resuscitation Status VTE Prophylaxis Will order VTE Prophylaxis: Yes
[2017-06-26] MEDS ORDERED: DEXTROSE 50% 50 ML SYR IV PRN (17:00)
[2017-06-26] MEDS ORDERED: GLUCOSE 10 TABS/TUBE PO PRN (17:00)
[2017-06-26] MEDS ORDERED: GLUCOSE 40% GEL 15 GM TUBE PO PRN (17:00)
[2017-06-26] MEDS ORDERED: GLUCAGON FOR INJ 1 MG VIAL SQ PRN (17:00)
[2017-06-26] MEDS: ACETAMINOPHEN 325 MG TAB PO PRN ×2 (17:53→22:09)
[2017-06-26 17:56] VITALS: BP 129/63; PULSE 83; TEMP 36.4; O2SAT 94; Ht 165.1 cm; Wt 129.1 kg
[2017-06-26] MEDS ORDERED: METOPROLOL TARTRATE 25 MG TAB PO SCH ×2 (18:00→21:00)
--- NOTE | 2017-06-26 19:18 | CARDIOLOGY CONSULTATION ---
DATE OF CONSULTATION: 06/26/2017 REFERRING PHYSICIAN: Graciela Lind MD. REASON FOR CONSULTATION: Paroxysmal atrial flutter. HISTORY OF PRESENT ILLNESS: Ms. Mercado is a 66-year-old female who is well known to the undersigned. Carries a previous history of paroxysmal atrial fibrillation in the setting of pneumonia and ventilator dependent respiratory failure 2012. She had been treated with Pradaxa, which was subsequently discontinued. The patient was transitioned back to aspirin and Plavix which she has been maintained on for the past 3 years. Over the past 2 weeks, she notes palpitations and dyspnea on exertion. Feels a fluttering in her chest associated with her shortness of breath. Notes intermittent lightheadedness without syncope. No chest discomfort. Denies orthopnea, PND, or lower extremity edema. Symptoms seem to be intermittent. At times she feels quite normal. Recent Holter monitor demonstrated episodes of atrial fibrillation. ECG today demonstrates atrial flutter with 2:1 conduction. She subsequently converted to sinus rhythm in the Emergency Department. Currently, asymptomatic. Family at bedside. Offers no other complaints at this time. REVIEW OF SYSTEMS: The pertinent positive noted above, a comprehensive 10-system review is otherwise negative. PAST MEDICAL HISTORY: 1. Paroxysmal atrial fibrillation in the setting of pneumonia, VDRF, septic shock. 2. Reactive airways disease. 3. Cerebrovascular accident. 4. Chronic obstructive pulmonary disease. 5. Obstructive sleep apnea. 6. Dyslipidemia. 7. Diabetes type 2. 8. Right bundle branch block. PAST SURGICAL HISTORY: 1. Colonoscopy. 2. Cystoscopy. 3. Tonsillectomy. 4. Hysterectomy. FAMILY HISTORY: Negative for premature CAD or sudden cardiac . Diabetes noted in her father and grandmother. SOCIAL HISTORY: Former tobacco abuse with a [id number] history. She is , lives with her spouse. ALLERGIES: PENICILLIN, AUGMENTIN, CEPHALOSPORINS, CLARITHROMYCIN, SULFA ANTIBIOTICS, ITRACONAZOLE. OUTPATIENT MEDICATIONS: 1. Albuterol inhaler as needed. 2. Lipitor 40 mg daily. 3. B complex vitamin daily. 4. Topical estrogen cream. 5. Ferrous sulfate 325 twice daily. 6. Advair Diskus 1 puff twice daily. 7. Aspart insulin with meals. 8. Insulin Glargine 60 units twice daily. 9. Lamictal 100 mg daily. 10. Victoza 18 mg daily. 11. Lorazepam 1 mg as needed. 12. Magnesium 400 mg 2 times daily. 13. Glucophage 1000 mg 2 times daily. 14. Toprol-XL 12.5 mg twice daily. 15. Singulair 10 mg daily. 16. Mucinex 600 mg daily as needed. 17. 70/30 insulin 45 units before breakfast and 45 units before dinner. 18. [place] 3 fatty acids daily. 19. Prilosec 20 mg daily. 20. Spiriva inhaler, 18 mcg daily. ECG on admission demonstrates atrial flutter, 2:1 conduction, right bundle branch block. Chest x-ray on admission: No acute process. LABORATORY DATA: White blood cell count 9.65, hemoglobin is 14.1, platelet count is 212. INR is 1.0. Sodium 137, potassium 4.0, chloride 105, CO2 23, BUN is 14, creatinine 0.76. Troponins less than 0.015. TSH 1.510. ProBNP is 372. Urinalysis moderate esterase. Influenza screen is negative. PHYSICAL EXAMINATION: VITAL SIGNS: Temperature is 36.3 degrees centigrade, pulse is 75 beats per minute and regular, respiratory rate 16 breaths per minute, blood pressure 104/80, SaO2 is 95% on room air. GENERAL: NAD, awake, alert and oriented x3. Obese. HEENT: Mucous membranes are moist. No scleral icterus. Conjunctivae pink. NECK: Supple, no JVD, no HJR. No carotid bruit. HEART: Regular with a normal S1 and S2. There is no murmur, rub or gallop. LUNGS: Clear bilateral. There are no rales, rhonchi, or wheeze. ABDOMEN: Obese and nontender. No rebound or guarding. Normal bowel sounds. EXTREMITIES: Warm and dry without clubbing, cyanosis or edema. NEUROLOGIC: Demonstrates no focal deficit. FINAL IMPRESSION: 1. Paroxysmal atrial flutter with 2:1 conduction. 2. History of paroxysmal atrial fibrillation in the setting of critical illness. 3. Elevated stroke risk secondary to diabetes, hypertension, history of prior cerebrovascular accident. PLAN AND RECOMMENDATIONS: Plavix and aspirin will be discontinued at this time. The patient will be given Pradaxa 150 mg twice daily. Metoprolol be increased to 25 mg twice daily as well. Repeat resting 2D transthoracic echo in a.m. Continue other cardiovascular medications previously ordered. Thank you for allowing me to participate in the care of your patient.
[2017-06-26 20:14] VITALS: BP 120/65; PULSE 82; TEMP 36.9; O2SAT 92
[2017-06-26] MEDS ORDERED: [UNRECOGNIZED DRUG - OTHER] PO SCH (21:00)
[2017-06-26] MEDS ORDERED: OMEGA-3 (PURIFIED FISH OIL) 1 GM CAP PO SCH (21:00)
[2017-06-26] MEDS ORDERED: CRANBERRY PO SCH (21:00)
[2017-06-26] MEDS: INSULIN ASPART 100 UNITS/ML 3 ML PEN SC SCH (21:00)
[2017-06-26] MEDS ORDERED: FERROUS SULFATE 325 MG TAB PO SCH (21:00)
[2017-06-26] MEDS ORDERED: PANTOprazole SOD 40 MG TAB PO SCH (21:00)
[2017-06-26] MEDS ORDERED: NON-FORMULARY MEDICATION (Cinnamon 1,000 MG) PO SCH (21:00)
[2017-06-26] MEDS: MAGNESIUM OXIDE 400 MG TAB PO SCH (21:28)
[2017-06-26] MEDS: DABIGATRAN ELEXILATE 75 MG CAP PO SCH (21:28)
[2017-06-26] MEDS: FLUTICASONE/SALMETEROL (ADVAIR) 500/50 INH 14 PUFF INH SCH (21:29)
[2017-06-26] MEDS: INSULIN GLARGINE SOLOSTAR 100 UNITS/ML 3 ML PEN SC SCH (21:30)
[2017-06-26] MEDS ORDERED: METOPROLOL TARTRATE 1 MG/ML VIAL IV PRN (22:45)
[2017-06-26 22:49] VITALS: BP 123/87; PULSE 150
[2017-06-26] MEDS: METOPROLOL TARTRATE 25 MG TAB PO SCH (23:21)
[2017-06-26] MEDS ORDERED: NURSING VERBAL MED ORDER ONE (23:30)
[2017-06-26 23:42] VITALS: BP 143/92; PULSE 78; TEMP 36.8; O2SAT 92
[2017-06-26] MEDS: [UNRECOGNIZED DRUG - OTHER] SCH (23:54)
[2017-06-27 03:41] VITALS: BP 106/68; PULSE 77; TEMP 36.5; O2SAT 92
[2017-06-27] MEDS: METOPROLOL TARTRATE 25 MG TAB PO SCH (06:05)
[2017-06-27] MEDS: [UNRECOGNIZED DRUG - OTHER] SCH ×2 (07:32→15:16)
[2017-06-27] MEDS: FLUTICASONE/SALMETEROL (ADVAIR) 500/50 INH 14 PUFF INH SCH (07:47)
[2017-06-27] MEDS: DABIGATRAN ELEXILATE 75 MG CAP PO SCH (07:50)
[2017-06-27] MEDS: MAGNESIUM OXIDE 400 MG TAB PO SCH (07:50)
[2017-06-27 07:55] LABS: HEMOGLOBIN A1C 7.3 % (4.5-5.6)
[2017-06-27] MEDS: INSULIN ASPART 100 UNITS/ML 3 ML PEN SC SCH ×3 (07:58→18:00)
[2017-06-27] MEDS: INSULIN GLARGINE SOLOSTAR 100 UNITS/ML 3 ML PEN SC SCH (07:59)
[2017-06-27 08:00] VITALS: BP 140/83; PULSE 68; TEMP 36.6; O2SAT 93
[2017-06-27] MEDS ORDERED: NURSING VERBAL MED ORDER ONE (08:00)
[2017-06-27] MEDS ORDERED: NURSING DECISION MEDICATION ORDER SCH (08:15)
[2017-06-27] MEDS ORDERED: SODIUM CHLORIDE 0.65% NA SOLN 45 ML (OCEAN) PRN (08:15)
[2017-06-27] MEDS ORDERED: NEPHROCAPS PO SCH (09:00)
[2017-06-27] MEDS ORDERED: TRIAMCINOLONE ACET NASAL SPRAY 10.8ML BTL NAE SCH (09:00)
[2017-06-27] MEDS ORDERED: ASPIRIN 81 MG ECTAB PO SCH (09:00)
[2017-06-27] MEDS ORDERED: TIOTROPIUM BROMIDE 5 PUFF/90 MCG INH INH SCH (09:00)
[2017-06-27] MEDS ORDERED: PANTOprazole SOD 40 MG TAB PO SCH (09:00)
[2017-06-27] MEDS ORDERED: MULTIVITAMIN TAB PO SCH (09:00)
[2017-06-27] MEDS ORDERED: MONTELUKAST SOD 10 MG TAB PO SCH ×2 (09:00→21:00)
[2017-06-27] MEDS ORDERED: ATORVASTATIN 40 MG TAB PO SCH ×2 (09:00→21:00)
[2017-06-27] MEDS: ACETAMINOPHEN 325 MG TAB PO PRN (09:04)
[2017-06-27] MEDS ORDERED: ELQ25 PO (10:25)
--- NOTE | 2017-06-27 10:30 | Progress Note ---
Medicine Progress Note Date & Time of Visit: Jun 27, 2017 at 10:16. Subjective Patient seen resting in bed comfortable in good spirits States she feels fine overall Denies chest pain shortness of breath nausea vomiting dizziness Ambulating with no problems Denies any symptoms Objective Last 8 Hrs Date Time Temp Pulse Resp B/P (MAP) Pulse Ox O2 Delivery O2 Flow Rate FiO2 06/27/17 08:00 Room Air 06/27/17 08:00 36.6 68 20 140/83 (102) 93 Room Air 06/27/17 04:00 Room Air 06/27/17 03:41 36.5 77 20 106/68 (81) 92 Room Air Physical Exam: General-oriented 3 not in distress no accessory muscle use speaking in sentences Head- atraumatic Eyes- PERRL, EOMI, anicteric ENT- oropharynx clear Neck- supple, no JVD, no adenopathy, no thyromegaly; carotids +2/2, no bruits appreciated Lungs- clear to auscultation bilaterally Heart- regular rhythm; no murmur, n normal rate Abdomen- normal bowel sounds, soft, nontender Extremities- no pretibial edema, no calf tenderness; peripheral pulses intact Neuro- alert, oriented x 3; no gross focal motor or sensory deficits Skin- warm & dry Laboratory Results: Last 24 Hours Test 06/26/17 12:00 06/26/17 12:20 06/26/17 12:38 06/26/17 20:33 White Blood Count 9.65 K/uL Red Blood Count 4.63 M/uL Hemoglobin 14.1 g/dL Hematocrit 42.4 % Mean Corpuscular Volume 91.6 fL Mean Corpuscular Hemoglobin 30.5 pg Mean Corpuscular Hemoglobin Concent 33.3 g/dl Platelet Count 212 K/uL Mean Platelet Volume 10.7 fL Neutrophils (%) (Auto) 56.0 % Lymphocytes (%) (Auto) 31.2 % Monocytes (%) (Auto) 8.9 % Eosinophils (%) (Auto) 3.0 % Basophils (%) (Auto) 0.5 % Neutrophils # (Auto) 5.40 K/uL Lymphocytes # (Auto) 3.01 K/uL Monocytes # (Auto) 0.86 K/uL Eosinophils # (Auto) 0.29 K/uL Basophils # (Auto) 0.05 K/uL RDW Standard Deviation 49.6 fL RDW Coefficient of Variation 14.6 % Immature Granulocyte % (Auto) 0.4 % Immature Granulocyte # (Auto) 0.04 K/uL Prothrombin Time 10.5 SECONDS Prothromb Time International Ratio 1.0 Sodium Level 137 mmol/L Potassium Level 4.0 mmol/L Chloride Level 105 mmol/L Carbon Dioxide Level 23 mmol/L Anion Gap 9.0 mmol/L Blood Urea Nitrogen 14 mg/dl Creatinine 0.76 mg/dl Est Creatinine Clear Calc Drug Dose 101.8 ml/min Estimated GFR () 96.1 Estimated GFR (Non- 82.9 BUN/Creatinine Ratio 18.7 Random Glucose 139 mg/dl Calcium Level 8.9 mg/dl Magnesium Level 1.8 mg/dl Total Bilirubin 0.6 mg/dl Direct Bilirubin 0.2 mg/dl Aspartate Amino Transf (AST/SGOT) 31 U/L Alanine Aminotransferase (ALT/SGPT) 43 U/L Alkaline Phosphatase 98 U/L Troponin I < 0.015 ng/ml Pro-B-Type Natriuretic Peptide 372 pg/ml Total Protein 6.8 gm/dl Albumin 3.7 gm/dl Lipase 126 U/L Thyroid Stimulating Hormone (TSH) 1.510 uIu/ml Hepatitis C Antibody Screen NEG Influenza Type A (RT-PCR) Neg for Influ A Influenza Type B (RT-PCR) Neg for Influ B Urine Color DK YELLOW Urine Appearance CLEAR Urine pH 5.5 Urine Specific [place] 1.018 Urine Protein NEG Urine Glucose (UA) NEG Urine Ketones NEG Urine Occult Blood NEG Urine Nitrite NEG Urine Bilirubin NEG Urine Urobilinogen NEG Urine Leukocyte Esterase MODERATE Urine WBC (Auto) 5-10 /hpf Urine RBC (Auto) 0-4 /hpf Urine Hyaline Casts (Auto) 1-5 /lpf Urine Epithelial Cells (Auto) >30 /lpf Urine Bacteria (Auto) NEG Bedside Glucose 144 mg/dl Test 06/26/17 21:56 06/27/17 03:46 06/27/17 06:51 06/27/17 09:30 Troponin I < 0.015 ng/ml < 0.015 ng/ml Estimated Average Glucose 163 mg/dl Hemoglobin A1c 7.3 % Bedside Glucose 162 mg/dl Assessment & Plan Patient is a 66-year-old female with a past medical history of DM II, COPD, paroxysmal A. fib, history of CVA (on Plavix) and other problems mentioned below who presents from cardiology clinic with atrial flutter in RVR. A flutter in RVR: resolved -H/o A Fib with RVR in 2012 -Recent 24H Holter monitor with frequent supraventricular ectopy as well as episodes of A. fib with RVR -Initially in A flutter with 2:1 block at 138 bpm -Spontaneously converted to NSR at 81 bpm -Electrolytes, TSH wnl -Cardio consulted Dr. Mosley Metoprolol increased to 25 twice daily Pradaxa twice daily started Overnight the patient remained in sinus rhythm with rate controlled Tolerated medications well Final recommendations by Dr. Villanueva -Increased Toprol to 25mg BID from 12.5 mg twice daily -Discharged on Eliquis 5 mg p.o. twice daily Follow-up with cardiology clinic in 1-2 weeks DM II: A1c 7.3 Continue usual diabetic regimen Follow-up with dental clinic COPD: No signs of exacerbation Continue usual regimen H/o CVA: Start Eliquis 5 mg twice daily DC aspirin and Plavix Mood disorder: -Cont Lamictal, Ativan PRN GERD: -Cont PPI PCP: Mraion Mosley Dispo: d/c home today ff up with PCP in 3-5 days ff up with Cardiology in 1-2 weeks. Current Inpatient Medications: Current Inpatient Medications Medications (Trade) Dose Ordered Sig/Vu Route Start Time Stop Time Status Last Admin Dose Admin Acetaminophen (Tylenol Tab) 650 mg Q4H PRN PO 06/26/17 15:45 07/26/17 15:44 06/27/17 09:04 650 MG Al Hydrox/Mg Hydrox/Simethicone (Maalox Max Susp) 15 ml Q4H PRN PO 06/26/17 15:45 07/26/17 15:44 06/27/17 03:27 15 ML Magnesium Hydroxide (Milk Of Magnesia Susp) 30 ml Q12H PRN PO 06/26/17 15:45 07/26/17 15:44 Nitroglycerin (Nitrostat Tab) 0.4 mg UD PRN SL 06/26/17 15:45 07/26/17 15:44 Polyethylene (Miralax Powder Packet) 17 gm DAILY PRN PO 06/26/17 15:45 07/26/17 15:44 Dabigatran (Pradaxa Cap) 150 mg BID PO 06/26/17 21:00 07/26/17 20:59 06/27/17 07:50 150 MG Albuterol (Ventolin Hfa Inhaler) 2 puffs Q6H PRN INH 06/26/17 16:15 07/26/17 16:14 Albuterol Sulfate (Ventolin 0.083% 2.5MG/3ML Neb) 2.5 mg QID PRN INH 06/26/17 16:15 07/26/17 16:14 Ferrous Sulfate (Feosol Tab) 325 mg HS PO 06/26/17 21:00 07/26/17 20:59 06/26/17 21:28 325 MG Fish Oil ([place]-3 (Purified Fish Oil) Cap) 1 gm QPM PO 06/26/17 21:00 07/26/17 20:59 06/26/17 21:28 1 GM Salmeterol Xinafoate/ Fluticasone (Advair Diskus 500/50 Inh) 1 puff BID INH 06/26/17 21:00 07/26/17 20:59 06/27/17 07:47 1 PUFF Insulin Glargine (Lantus Solostar Pen) 40 units BID SC 06/26/17 21:00 07/26/17 20:59 06/27/17 07:59 40 UNITS Lamotrigine (Lamictal Tab) 100 mg HS PO 06/26/17 21:00 07/26/17 20:59 06/26/17 21:28 100 MG Lorazepam (Ativan Tab) 0.5 mg DAILY PRN PO 06/26/17 16:15 07/26/17 16:14 Multivitamins (Multivitamin Tab) 1 tab QAM PO 06/27/17 09:00 07/27/17 08:59 06/27/17 07:50 1 TAB Pantoprazole Sodium (Protonix Tab) 40 mg HS PO 06/26/17 21:00 07/26/17 20:59 06/26/17 21:28 40 MG Tiotropium [place] (Spiriva Handihaler Inhaler) 1 puff DAILY INH 06/27/17 09:00 07/27/17 08:59 06/27/17 07:48 1 PUFF Triamcinolone Acetonide (Nasacort Allergy 24hr) 2 sprays DAILY ANIBAL 06/27/17 09:00 07/27/17 08:59 06/27/17 07:46 2 SPRAYS Vitamin B Complex/ Vit C/Folic Acid (Nephrocaps) 1 cap DAILY PO 06/27/17 09:00 07/27/17 08:59 06/27/17 07:49 1 CAP Miscellaneous Information (Order Awaiting Action) 1 ea QS N/A 06/27/17 00:00 07/27/17 00:00 Miscellaneous Information (Order Awaiting Action) 1 ea QS N/A 06/27/17 00:00 07/27/17 00:00 Magnesium Oxide (Mag-Ox Tab) 400 mg BID PO 06/26/17 21:00 07/26/17 20:59 06/27/17 07:50 400 MG Insulin Aspart (novoLOG ASPART) SLIDING SCALE If C... ACHS SC 06/26/17 21:00 07/26/17 20:59 06/27/17 07:58 29 UNITS Glucose (Glucose 40% Gel) 15-30 GRAMS 15 GRAMS... UD PRN PO 06/26/17 17:00 07/26/17 16:59 Glucose (Glucose Chew Tab) 4-8 Tablets 4 Tabl... UD PRN PO 06/26/17 17:00 07/26/17 16:59 Dextrose (Dextrose 50% 50ML Syringe) 25-50ML OF 50% DW IV FOR... UD PRN IV 06/26/17 17:00 07/26/17 16:59 Glucagon (Glucagon Inj) 1 mg UD PRN SQ 06/26/17 17:00 07/26/17 16:59 Metoprolol Tartrate (Lopressor Iv) 5 mg Q6 PRN IV 06/26/17 22:45 07/26/17 22:44 Metoprolol Tartrate (Lopressor Tab) 25 mg Q6 PO 06/27/17 00:00 07/26/17 17:59 06/27/17 06:05 25 MG Atorvastatin Calcium (Lipitor Tab) 40 mg HS PO 06/27/17 21:00 07/27/17 08:59 Montelukast Sodium (Singulair Tab) 10 mg HS PO 06/27/17 21:00 07/27/17 08:59 Sodium Chloride ([place] Nasal [place]) 1 sprays PRN PRN NA 06/27/17 08:15 07/27/17 08:14
[2017-06-27 10:32] LABS: BLOOD UREA NITROGEN 15 mg/dl (7-18); CALCIUM 8.9 mg/dl (8.5-10.1); CARBON DIOXIDE 23 mmol/L (21-32); CREATININE 0.79 mg/dl (0.60-1.20); GLUCOSE 181 mg/dl (70-99); POTASSIUM 3.9 mmol/L (3.5-5.1); SODIUM 137 mmol/L (136-145)
--- NOTE | 2017-06-27 10:32 | Discharge Instructions ---
Discharge Instructions Date of Service Jun 27, 2017. Admission Reason for Admission: Atrial Flutter With Rapid Ventricular Response Discharge Discharge Diagnosis / Problem: ATRIAL FIBRILLATION/FLUTTER WITH RAPID VENTRICULAR RESPONSE Discharge Goals Goal(s): Diagnostic testing, Therapeutic intervention Activity Recommendations Activity Limitations: as noted below (NO HEAVY EXERTION UNTIL FOLLOW UP WITH PRIMARY CARE PHYSICIAN) Lifting Limitations: until after follow-up appointment Exercise/Sports Limitations: until after follow-up appointment Driving or Machine Use: NO DRIVING UNTIL FOLLOW UP WITH PRIMARY CARE PHYSICIAN . Instructions / Follow-Up Instructions / Follow-Up PLEASE REVIEW YOUR NEW MEDICATION LIST AND FOLLOW INSTRUCTIONS CAREFULLY. CALL YOUR PRIMARY CARE PHYSICIAN OR RETURN TO ER IMMEDIATELY IF WITH DIZZINESS, PALPITATIONS, CHEST PAIN, SHORTNESS OF BREATH, BLEEDING. IF YOU HAVE ANY HEAD TRAUMA, GO TO THE ER IMMEDIATELY FOR EVALUATION. FOLLOW UP WITH DR. PANKAJ GASCA (ASSOCIATE OF DR. Luann HUDSON) ON Thursday AT 12 45PM. FOLLOW UP WITH CARDIOLOGY CLINIC IN 1-2 WEEKS. Current Hospital Diet Patient's current hospital diet: AHA Diet (Heart Healthy), Diabetes Type 2 Diet Discharge Diet Recommended Diet: AHA Diet (Heart Healthy), Diabetes Type 2 Diet Procedures Procedures Performed: ECHOCARDIOGRAM Pending Studies Studies pending at discharge: no Laboratory Results Hemoglobin A1c Test 06/27/17 03:46 Range/Units Estimated Average Glucose 163 mg/dl Hemoglobin A1c 7.3 H 4.5-5.6 % Medical Emergencies . Who to Call and When: Medical Emergencies: If at any time you feel your situation is an emergency, please call 911 immediately. . Non-Emergent Contact Non-Emergency issues call your: Primary Care Provider, Forge Tender Call Non-Emergent contact if: you have a fever, you have any medication questions . . "Provider Documentation" section prepared by Denilson Apple. .
--- NOTE | 2017-06-27 10:48 | PROGRESS NOTE ---
DATE: 06/27/2017 CARDIOLOGY CONSULTATION FOLLOWUP NOTE The patient seen and examined. Chart, medications, telemetry reviewed. SUBJECTIVE: The patient feels well this morning. Notes spontaneous conversion to sinus rhythm overnight with no further arrhythmias. She is anxious to be discharged. Notes no chest pain or discomfort. Notes no dizziness. Notes no acute neurologic complaints. Appetite is good. Notes no worsening edema. Notes no headache or visual changes. OBJECTIVE: VITAL SIGNS: Heart rate is 68, blood pressure is 140/83. NECK: Thick. There is no distinct jugular venous distention. LUNGS: Clear to auscultation. CARDIOVASCULAR: Regular with normal S1, S2. There is no murmur, gallop or rub. ABDOMEN: Soft, nontender. There is no palpable hepatosplenomegaly. There is no hepatojugular reflux. EXTREMITIES: Without cyanosis or clubbing. There is no significant peripheral edema. LABORATORY DATA: Electrolytes are pending from this morning. IMPRESSION AND PLAN: A 66-year-old female with paroxysmal atrial fibrillation/flutter with symptomatic relapse, past history of atrial fibrillation in the setting of acute illness in 2012. Discussed findings in detail. She has been restarted on an oral anticoagulant. We would continue with Eliquis 5 mg twice per day. Continue metoprolol at 25 mg twice per day. Discontinue aspirin and Plavix. Echocardiogram will be ordered and reviewed prior to hospital discharge. The patient may be allowed to return to home with planned outpatient followup with Dr. Sabine Mosley and Dr. Aries Mosley. The patient is agreeable to plan and will represent if any recurrence of atrial arrhythmias.
[2017-06-27 11:53] VITALS: BP 145/91; PULSE 71; TEMP 36.6; O2SAT 93
[2017-06-27 13:17] VITALS: BP 145/91; PULSE 71; TEMP 36.6; O2SAT 93
--- NOTE | 2017-06-27 14:05 | ECHOCARDIOGRAM REPORT ---
*NOTICE TO RECEIVING CONSTITUTION PARTY AGENCY This information is strictly Confidential and protected under [place] law. [place] law prohibits you from making any further disclosure of this information unless further disclosure is expressly permitted by the written consent of the person to whom it pertains or is authorized by law. A general authorization for the release of medical or other information is not sufficient for this purpose. Hospital accepts no responsibility if the information is made available to any other person, INCLUDING THE PATIENT. Interpretation Summary * Name: ASHER JACKSON Study Date: 06/27/2017 01:07 PM BP: 145/91 mmHg * Patient Location: .2T\S\E218\S\1 HR: 71 * : 1950 (M/d/yyyy) Gender: Female Height: 65 in * Age: 66 yrs Ethnicity: CA Weight: 284 lb * Ordering Physician: Graciela Lind * Referring Physician: Dimitris Wells D.O. * Performed By: Gilda Billy RDCS * * Reason For Study: AFLUTTER * BSA: 2.3 m2 * -- Conclusions -- * The left ventricle is normal in size. * There is borderline concentric left ventricular hypertrophy. * Left ventricular systolic function is normal. * The left ventricular wall motion is normal. * Ejection Fraction = 60-65%. * There is no significant valvular disease. * The left atrial size is normal. Procedure Details * A contrast injection of Definity was performed to improve assessment of LV function. * Contrast was injected into an intravenous site in the left arm. * One vial of Definity ultrasound contrast was diluted in normal saline to a total volume of 10 ml. A total of '2' ml of solution was administered during imaging. * Lot # [id number] of Definity utilized for procedure. * Expiration date MAY 25. * The attending nurse who injected the contrast agent was AURELIO RUIZ. * A complete two-dimensional transthoracic echocardiogram was performed (2D, M-mode, Doppler and color flow Doppler). Left Ventricle * The left ventricle is normal in size. * There is borderline concentric left ventricular hypertrophy. * Ejection Fraction = 60-65%. * Left ventricular systolic function is normal. * The left ventricular wall motion is normal. Right Ventricle * The right ventricle is normal in size and function. Atria * The left atrial size is normal. * Right atrial size is normal. * No ASD detected; PFO is not assessed. Mitral Valve * The mitral valve anatomy is normal. * There is no mitral valve stenosis. * There is trace mitral regurgitation. Tricuspid Valve * The tricuspid valve anatomy is normal. * There is no tricuspid stenosis. * There is trace tricuspid regurgitation. * Doppler findings do not suggest pulmonary hypertension. Aortic Valve * The aortic valve is trileaflet. * No hemodynamically significant valvular aortic stenosis. * No aortic regurgitation is present. Pulmonic Valve * The pulmonic valve is not well visualized. Great Vessels * The aortic root is normal size. Pericardium/Pleural * There is no pericardial effusion. Great Vessels * Normal inferior vena cava diameter and respiratory variation suggests normal central venous pressure. MMode 2D Measurements and Calculations IVSd 1.2 cm IVSs 1.6 cm LVIDd 4.7 cm LVIDs 3.4 cm LVPWd 1.4 cm LVPWs 1.5 cm IVS/LVPW 0.88 FS 29.0 % EDV(Teich) 103.6 ml ESV(Teich) 45.9 ml EF(Teich) 55.7 % EDV(cubed) 105.5 ml ESV(cubed) 37.7 ml EF(cubed) 64.3 % % IVS thick 26.1 % % LVPW thick 9.8 % LV mass(C)d 246.1 grams LV mass(C)dI 107.2 grams/m\S\2 LV mass(C)s 193.6 grams LV mass(C)sI 84.3 grams/m\S\2 SV(Teich) 57.7 ml SI(Teich) 25.2 ml/m\S\2 SV(cubed) 67.8 ml SI(cubed) 29.5 ml/m\S\2 Ao root diam 3.3 cm Ao root area 8.6 cm\S\2 LA dimension 3.9 cm LA/Ao 1.2 LVAd ap4 33.4 cm\S\2 LVLd ap4 8.5 cm EDV(MOD-sp4) 108.5 ml EDV(sp4-el) 111.5 ml LVAs ap4 20.5 cm\S\2 LVLs ap4 7.6 cm ESV(MOD-sp4) 45.0 ml ESV(sp4-el) 46.9 ml EF(MOD-sp4) 58.5 % EF(sp4-el) 57.9 % LVAd ap2 36.3 cm\S\2 LVLd ap2 8.8 cm EDV(MOD-sp2) 124.4 ml EDV(sp2-el) 127.7 ml LVAs ap2 21.4 cm\S\2 LVLs ap2 7.7 cm ESV(MOD-sp2) 49.4 ml ESV(sp2-el) 50.3 ml EF(MOD-sp2) 60.3 % EF(sp2-el) 60.6 % LVLd %diff 3.1 % EDV(MOD-bp) 115.1 ml LVLs %diff 1.6 % ESV(MOD-bp) 47.3 ml EF(MOD-bp) 58.9 % SV(MOD-sp4) 63.5 ml SI(MOD-sp4) 27.7 ml/m\S\2 SV(MOD-sp2) 75.0 ml SI(MOD-sp2) 32.7 ml/m\S\2 SV(MOD-bp) 67.8 ml SI(MOD-bp) 29.5 ml/m\S\2 SV(sp4-el) 64.6 ml SI(sp4-el) 28.1 ml/m\S\2 SV(sp2-el) 77.4 ml SI(sp2-el) 33.7 ml/m\S\2 Doppler Measurements and Calculations MV E max maria de jesus 81.8 cm/sec MV A max maria de jesus 59.6 cm/sec MV E/A 1.4 MV dec time 0.21 sec Ao V2 max 124.1 cm/sec Ao max PG 6.2 mmHg Ao max PG (full) 1.1 mmHg LV V1 max PG 5.0 mmHg LV V1 max 112.4 cm/sec
[2017-06-27 15:54] VITALS: BP 112/74; PULSE 71; TEMP 36.5; O2SAT 92
[2017-06-27] MEDS ORDERED: LPR25 PO (16:50)
--- NOTE | 2017-06-27 16:59 | Discharge Summary ---
Discharge Summary Date of Service Jun 27, 2017. Discharge Summary Admission Date: Jun 26, 2017 at 15:39 Discharge Date: Jun 27, 2017 Discharge Disposition: Home Principal Diagnosis: A flutter in RVR: resolved Secondary Diagnoses/Problems: Please refer to hospital course below. Procedures: ECHO: * -- Conclusions -- * The left ventricle is normal in size. * There is borderline concentric left ventricular hypertrophy. * Left ventricular systolic function is normal. * The left ventricular wall motion is normal. * Ejection Fraction = 60-65%. * There is no significant valvular disease. * The left atrial size is normal. Consultations: CCNA DR. HUDSON/DR. VILLANUEVA Pending Studies/Follow-Up: PLEASE REFER TO HOSPITAL COURSE BELOW. Medication Reconciliation New Medications: Apixaban (Eliquis) 2.5 Mg Tab 5 MG PO BID for 30 Days, #120 TAB 2 Refills Metoprolol Tartrate (Lopressor) 25 Mg Tab 25 MG PO Q12H for 30 Days, #60 TAB 2 Refills Continued Medications: Acetaminophen (Tylenol Arthitis Ext Rel) 650 Mg Ertab 1-2 TAB PO PRN PRN for RN, CAP Albuterol Hfa (Ventolin Hfa) 200 Puffs/23509 Mcg Aers 2 PUFFS INH Q6H PRN for SOB/Wheezing, #1 INHALER Albuterol Sulf (Proventil 0.083% 2.5MG/3ML) 2.5 Mg/3 Ml Nebu 2.5 MG INH QID PRN for SOB/Wheezing, EA Atorvastatin (Lipitor) 40 Mg Tab 40 MG PO DAILY, TAB Cinnamon (Cinnamon) 500 Mg Tab 1000 MG PO BID Cranberry (Vaccinium Macrocarp (Cranberry Juice Extract) 1,000 Mg Cap 1000 MG PO BID Ferrous Sulfate (Ferrous Sulfate) 325 Mg Tab 325 MG PO BID Fish Oil ([place]-3) 1 Ea Cap 1 CAP PO QPM, 0 Refills Fluticasone Prop/Salmeterol (Advair Diskus 500/50 60 Dose) 1 Ea Aerp 1 PUFF INH BID, INHALER Home O2 Therapy (Oxygen) Gas 2 LITERS NA PRN Insulin Aspart Protamine & Asp (Novolog Mix 70/30) 1 Inj Inj 40 UNITS SC QPM, BTL Insulin Glargine (Lantus) 100 Unit/Ml Inj 40 UNITS SC AMPM, VIAL Insulin Isophan/Regular (Novolin 70/30) Susp 45 UNITS SC QAM Lamotrigine (Lamictal) 200 Mg Tab 100 MG PO HS, #60 Levocetirizine Dihydrochloride (Xyzal Allergy 24Hr) 5 Mg Tab 5 MG PO DAILY Liraglutide (Victoza) 18 Mg/3 Ml Inj 1 DOSE SQ DAILY Lorazepam (Lorazepam) 1 Mg Tab 0.5 MG PO DAILY PRN for Anxiety Magnesium Oxide (Mg Supplement (Magnesium) 400 Mg Cap 400 MG PO BID Metformin Hcl (Glucophage) 1,000 Mg Tab 1000 MG PO BID, TAB Montelukast Sodium (Singulair) 10 Mg Tab 10 MG PO DAILY, TAB Multiple Vitamin (Multivitamin) 1 Tab Tab 1 TAB PO QAM, TAB Pantoprazole (Protonix) 40 Mg Tab 40 MG PO HS, 0 Refills Tiotropium Canvas (Spiriva Handihaler) 30 Puff/540 Mcg Aerp 1 CAP INH DAILY, INHALER Triamcinolone Acetonide (Nasal (Nasacort Allergy 24Hr) 55 Mcg/Act Spr 2 SPRAY ANIBAL Vitamin B Cmplx/Vitc/Folic Ac (Nephrocaps) Cap 1 CAP PO DAILY for 30 Days, #30 CAP 11 Refills Discontinued Medications: Aspirin (Aspirin Ec) 81 Mg Tab 81 MG PO QAM Clopidogrel Bisulfate (Plavix) 75 Mg Tab 75 MG PO QAM, TAB Fluconazole (Diflucan) 150 Mg Tab 150 MG PO UD PRN for RN, TAB Metoprolol Tartrate (Lopressor) 25 Mg Tab 12.5 MG PO BID, TAB Omeprazole (Cvs Omeprazole) 20 Mg Tab 20 MG PO DAILY Admission Information HPI (per Admitting provider): Patient is a 66-year-old female with a past medical history of DM II, COPD, paroxysmal A. fib, history of CVA (on aspirin, Plavix) and other problems mentioned below who presents from cardiology clinic with atrial flutter in RVR. Patient endorses palpitations over the past 2 weeks with associated shortness of breath and near syncope. She is recovering from acute sinusitis and finished a course of Levaquin this past Thursday. EKG in clinic today showed a flutter with RVR with a heart rate in 140s. Patient was sent over by Dr. Wells to the ED for further evaluation. Upon arrival, patient was found in a flutter with RVR with a 2:1 block at 138 bpm. Spontaneously converted to normal sinus with a rate of 81 bpm. Patient has had one previous episode of an atrial arrhythmia during a 2013 hospital admission for septic pneumonia in the ICU. Was found to be in A. fib with RVR then and required cardioversion. Was sent home on metoprolol and Pradaxa and followed with cardiology clinic but became asymptomatic and eventually Pradaxa was discontinued. Continues to take Toprol 12.5mg BID. Recently patient began to experience more frequent palpitations and had a 24- hour Holter monitor evaluation, which showed very frequent supraventricular ectopy as well as episodes of A. fib with RVR. HR varied from 61-185 bpm during 24 hour period. Denies any fever, chills, lightheadedness, headache, visual, abdominal pain, nausea, vomiting, or bladder changes, LE swelling. Echocardiogram from 2016 shows normal EF, no wall motion abnormalities. Follows with Dr. Hudson for cardio. Physical Exam (per Admitting): General Appearance: WD/WN, no apparent distress Head: normocephalic, atraumatic Eyes: normal inspection, PERRL, sclerae normal ENT: normal ENT inspection, hearing grossly normal, pharynx normal Neck: supple, thyroid normal, no JVD, trachea midline Respiratory/Chest: chest non-tender, lungs clear, normal breath sounds, no respiratory distress, no accessory muscle use Cardiovascular: regular rate, rhythm, no murmur, normal peripheral pulses, + pertinent finding (Trace bilateral edema. Wearing nick hose ) Abdomen/GI: non tender, soft, no organomegaly Extremities/Musculoskelatal: normal inspection, no calf tenderness, normal range of motion, non-tender Neurologic/Psych: no motor/sensory deficits, alert, normal mood/affect, oriented x 3 Skin: normal color, warm/dry Hospital Course Patient is a 66-year-old female with a past medical history of DM II, COPD, paroxysmal A. fib, history of CVA (on Plavix) and other problems mentioned below who presents from cardiology clinic with atrial flutter in RVR. A flutter in RVR: resolved -H/o A Fib with RVR in 2012 -Recent 24H Holter monitor with frequent supraventricular ectopy as well as episodes of A. fib with RVR -Initially in A flutter with 2:1 block at 138 bpm -Spontaneously converted to NSR at 81 bpm -Electrolytes, TSH wnl -Cardio consulted Dr. Hudson Metoprolol increased to 25 twice daily Pradaxa twice daily started Overnight the patient remained in sinus rhythm with rate controlled Tolerated medications well Final recommendations by Dr. Villanueva -Increased Toprol to 25mg BID from 12.5 mg twice daily -Discharged on Eliquis 5 mg p.o. twice daily Follow-up with cardiology clinic in 1-2 weeks DM II: A1c 7.3 Continue usual diabetic regimen Follow-up with Endo Clinic COPD: No signs of exacerbation Continue usual regimen H/o CVA: Start Eliquis 5 mg twice daily Discontinue aspirin and Plavix Mood disorder: -Cont Lamictal, Ativan PRN GERD: -Cont PPI Dispo: d/c home ff up with PCP in 3-5 days ff up with Cardiology in 1-2 weeks. Total time spent on discharge = 40 minutes This includes examination of the patient, discharge planning, medication reconciliation, and communication with other providers. Discharge Instructions Discharge Instructions Date of Service Jun 27, 2017. Admission Reason for Admission: Atrial Flutter With Rapid Ventricular Response Discharge Discharge Diagnosis / Problem: ATRIAL FIBRILLATION/FLUTTER WITH RAPID VENTRICULAR RESPONSE Discharge Goals Goal(s): Diagnostic testing, Therapeutic intervention Activity Recommendations Activity Limitations: as noted below (NO HEAVY EXERTION UNTIL FOLLOW UP WITH PRIMARY CARE PHYSICIAN) Lifting Limitations: until after follow-up appointment Exercise/Sports Limitations: until after follow-up appointment Driving or Machine Use: NO DRIVING UNTIL FOLLOW UP WITH PRIMARY CARE PHYSICIAN . Instructions / Follow-Up Instructions / Follow-Up PLEASE REVIEW YOUR NEW MEDICATION LIST AND FOLLOW INSTRUCTIONS CAREFULLY. CALL YOUR PRIMARY CARE PHYSICIAN OR RETURN TO ER IMMEDIATELY IF WITH DIZZINESS, PALPITATIONS, CHEST PAIN, SHORTNESS OF BREATH, BLEEDING. IF YOU HAVE ANY HEAD TRAUMA, GO TO THE ER IMMEDIATELY FOR EVALUATION. FOLLOW UP WITH DR. PANKAJ GASCA (ASSOCIATE OF DR. Luann HUDSON) ON Thursday AT 12 45PM. FOLLOW UP WITH CARDIOLOGY CLINIC IN 1-2 WEEKS. Current Hospital Diet Patient's current hospital diet: AHA Diet (Heart Healthy), Diabetes Type 2 Diet Discharge Diet Recommended Diet: AHA Diet (Heart Healthy), Diabetes Type 2 Diet Procedures Procedures Performed: ECHOCARDIOGRAM Pending Studies Studies pending at discharge: no Laboratory Results Hemoglobin A1c Test 06/27/17 03:46 Range/Units Estimated Average Glucose 163 mg/dl Hemoglobin A1c 7.3 H 4.5-5.6 % Medical Emergencies . Who to Call and When: Medical Emergencies: If at any time you feel your situation is an emergency, please call 911 immediately. . Non-Emergent Contact Non-Emergency issues call your: Primary Care Provider, Supervisor Call Non-Emergent contact if: you have a fever, you have any medication questions . . "Provider Documentation" section prepared by Denilson Apple. .
[2017-06-27] MEDS ORDERED: APIXABAN 2.5 MG TAB PO SCH ×3 (17:00→21:00)
[2017-06-27] MEDS ORDERED: METOPROLOL TARTRATE 25 MG TAB PO SCH (18:00)
== END 2017-06-27 18:46 | disposition home or self-care (01) | DRG 310 ==
LOC: EDBD 11:56 → C.EDA 11:57 → C.2T 15:39 → ENRESERV 16:32
PROVIDERS: ADMIT Hospitalist; ATTEND Internal Medicine
DX: I48.92 Unspecified atrial flutter (principal); M19.90 Unspecified osteoarthritis, unspecified site; J44.9 Chronic obstructive pulmonary disease, unspecified; E11.9 Type 2 diabetes mellitus without complications; Z86.73 Personal history of transient ischemic attack (TIA), and cerebral infarction without residual deficits; E78.5 Hyperlipidemia, unspecified; G47.33 Obstructive sleep apnea (adult) (pediatric); I10 Essential (primary) hypertension; F39 Unspecified mood [affective] disorder; Z87.891 Personal history of nicotine dependence; Z88.2 Allergy status to sulfonamides; Z88.1 Allergy status to other antibiotic agents; I48.0 Paroxysmal atrial fibrillation; Z79.84 Long term (current) use of oral hypoglycemic drugs; Z79.02 Long term (current) use of antithrombotics/antiplatelets

== ENCOUNTER 2017-07-07 15:11 | Inpatient (IN) | payer OTHER ==
[~2017-07-07] VITALS: Ht 165.1 cm; Wt 129.9 kg
[~2017-07-07 15:11] MED LIST changes: -ASPI81TA28 PO; +ATOR-24 PO; -B-CO1CAP17 PO; -CLOP1TAB5 PO; -CRAN1000 PO; +ELQ25 PO; -FERR325T5 PO; -FLUC150T PO; -INSDGI SC; -INSU70IN2 SC; +LEVO5TAB7 PO; +LIRA18IN SQ; -LORA10TA6 PO; -MAGN1CAP2 PO; -METF1000 PO; -MONT1TAB3 PO; -NVLG SQ; +NVLGI7030 SC; -PANT40TA PO; -SALINE INTNAS; -SIMV10TA5 PO; -SPRIN/30 INH; -VNTHFA/IN INH
[2017-07-07] MEDS ORDERED: METOPROLOL TARTRATE 1 MG/ML VIAL IV STA ×2 (15:15→16:22)
[2017-07-07] MEDS ORDERED: CRAN1000 PO (15:33)
[2017-07-07 15:39] LABS: BASO % 0.4 %; BASO ABS # 0.06 K/uL (0-0.2); EOS % 1.8 %; EOS ABS # 0.26 K/uL (0-0.5); HEMATOCRIT 41.2 % (37-47); HEMOGLOBIN 13.7 g/dL (12.0-16.0); IG# 0.05 K/uL (0.00-0.02); LYMPH % 21.2 %; LYMPH ABS # 3.14 K/uL (1.2-3.4); MEAN CELL VOLUME 91.6 fL (80-100); MEAN CORPUSCULAR HEMOGLOBIN 30.4 pg (25-34); MEAN CORPUSCULAR HGB CONC 33.3 g/dl (32-36); MEAN PLATELET VOLUME 10.1 fL (7.4-10.4); MONO % 6.9 %; MONO ABS # 1.02 K/uL (0.11-0.59); NEUT % 69.4 %; NEUT ABS # 10.25 K/uL (1.4-6.5); PLATELET COUNT 235 K/uL (130-400); RED CELL DISTRIBUTION WIDTH CV 14.5 % (11.5-14.5); RED CELL DISTRIBUTION WIDTH SD 48.9 fL (36.4-46.3); WHITE BLOOD COUNT 14.78 K/uL (4.8-10.8)
--- NOTE | 2017-07-07 15:44 | DIAGNOSTIC IMAGING REPORT ---
SINGLE VIEW CHEST CLINICAL HISTORY: Dyspnea. FINDINGS: An AP, portable, upright chest radiograph is compared to study dated 06/23/2017. Correlation is with chest CT dated 05/17/2014. The examination is degraded by portable technique and patient rotation. The heart is enlarged. There is mild congestion of the pulmonary vasculature. Patchy airspace opacities are present at both lung bases. No large pleural effusion or pneumothorax is seen. The skeletal structures are osteopenic. The bony thorax is grossly intact. IMPRESSION: 1. Cardiomegaly with mild pulmonary vascular congestion. 2. Bibasilar airspace opacities likely represent atelectasis. Correlate clinically for evidence of a superimposed infectious/inflammatory pneumonitis. Electronically signed by: Semaj Gonzalez M.D. 07/07/2017 3:43 PM Dictated Date/Time: 07/07/2017 3:42 PM
[2017-07-07 15:49] LABS: INR 1.1 (0.9-1.1); PTT PATIENT 27.6 SECONDS (21.0-31.0)
[2017-07-07 15:59] LABS: ALBUMIN 3.7 gm/dl (3.4-5.0); ALT/SGPT 53 U/L (12-78); AST/SGOT 24 U/L (15-37); BLOOD UREA NITROGEN 22 mg/dl (7-18); CALCIUM 9.3 mg/dl (8.5-10.1); CARBON DIOXIDE 23 mmol/L (21-32); CREATININE 0.98 mg/dl (0.60-1.20); GLUCOSE 162 mg/dl (70-99); POTASSIUM 4.1 mmol/L (3.5-5.1); SODIUM 138 mmol/L (136-145)
[2017-07-07 16:09] LABS: ALKALINE PHOSPHATASE 128 U/L (45-117)
[2017-07-07] MEDS ORDERED: SODIUM CHLORIDE 0.9% 500ML 500 ML IV STA (16:21)
[2017-07-07] MEDS ORDERED: MAGNESIUM SULFATE 1GM / D5W 1 GM BAG IV STA (16:22)
[2017-07-07] MEDS ORDERED: PRMVC PV (16:28)
[2017-07-07] MEDS ORDERED: PANT40TA PO (16:28)
[2017-07-07] MEDS ORDERED: ADVIN50/60 INH (16:28)
[2017-07-07] MEDS ORDERED: LEVA45AE INH (16:28)
[2017-07-07] MEDS ORDERED: KETO2SHA TOP (16:28)
[2017-07-07] MEDS ORDERED: LEVO500T19 PO (16:28)
[2017-07-07] MEDS ORDERED: INSU100I23 SQ (16:28)
[2017-07-07] MEDS ORDERED: SODIUM CHLORIDE 0.9% 1000ML 1,000 ML IV STA (17:01)
--- NOTE | 2017-07-07 17:03 | EMERGENCY ROOM VISIT NOTE ---
History Report prepared by Mike: Gautam Be Under the Supervision of: Dr. Tor Dinh D.O. First contact with patient: 15:12 Chief Complaint: TACHYCARDIA Stated Complaint: CARDIAC ASSESMENT AFIB History of Present Illness The patient is a 66 year old female who presents to the Emergency Room with complaints of constant atrial fibrillation. She was seen by her respiratory therapist today for congestion and was found to be in A-fib. She was diagnosed with paroxysmal A-fib recently and was started on Eliquis. The patient also complains of shortness of breath. She denies chest pain, fevers, or leg swelling. She notes that she has been taking Prednisone and feels this could be related. The patient has been eating and drinking normally. She has been taking her medications normally. She reports using her inhalers more than usual lately. The patient states that she has lost weight recently because of her medications. Source of History: patient Onset: Today Quality: other (Atrial fibrillation) Timing: constant Associated Symptoms: + SOB, No fevers, No chest pain Note: Negative: leg swelling. Review of Systems See HPI for pertinent positives & negatives. A total of 10 systems reviewed and were otherwise negative. Past Medical & Surgical Medical Problems: (1) Arthritis (2) COPD (chronic obstructive pulmonary disease) (3) Diabetes mellitus, type II (4) H/O: CVA (cerebrovascular accident) (5) HLD (hyperlipidemia) (6) Mood disorder (7) REENA (obstructive sleep apnea) (8) Paroxysmal atrial fibrillation (9) RBBB Social History Problems: (1) Benign hypertension (2) Bipolar disorder Family History Diabetes mellitus Social History Smoking Status: Former Smoker Alcohol Use: none Marital Status: Housing Status: lives with family Occupation Status: unemployed Current/Historical Medications Scheduled Apixaban (Eliquis), 5 MG PO BID Atorvastatin (Lipitor), 40 MG PO DAILY Cinnamon (Cinnamon), 1,000 MG PO BID Cranberry (Vaccinium Macrocarp (Cranberry Juice Extract), 1,000 MG PO BID Estrogens, Conjugated (Premarin), 1 APPLN PV HS Ferrous Sulfate (Ferrous Sulfate), 325 MG PO BID Fluticasone Prop/Salmeterol (Advair Diskus 500/50 60 Dose), 1 PUFF INH BID Insulin Aspart Protamine & Asp (Novolog Mix 70/30), 40 UNITS SC QPM Insulin Glargine (Basaglar Kwikpen), 40 UNITS SQ BID Insulin Isophan/Regular (Novolin 70/30), 45 UNITS SC QAM Ketoconazole (Topical) (Ketoconazole), 1 APPLN TOP UD Lamotrigine (Lamictal), 100 MG PO HS Levalbuterol Tartrate (Levalbuterol Tartrate Hfa), INH UD Levocetirizine Dihydrochloride (Xyzal Allergy 24Hr), 5 MG PO DAILY Levofloxacin (Levaquin), 1 TAB PO UD Liraglutide (Victoza), 1 DOSE SQ DAILY Magnesium Oxide (Mg Supplement (Magnesium), 400 MG PO BID Metformin Hcl (Glucophage), 1,000 MG PO BID Metoprolol Tartrate (Lopressor), 25 MG PO Q12H Montelukast Sodium (Singulair), 10 MG PO DAILY Multiple Vitamin (Multivitamin), 1 TAB PO QAM Pantoprazole (Protonix), 40 MG PO HS Tiotropium [place] (Spiriva Handihaler), 1 CAP INH DAILY Vitamin B Cmplx/Vitc/Folic Ac (Nephrocaps), 1 CAP PO DAILY Scheduled PRN Acetaminophen (Tylenol Arthitis Ext Rel), 1-2 TAB PO PRN PRN for RN Albuterol Hfa (Ventolin Hfa), 2 PUFFS INH Q6H PRN for SOB/Wheezing Albuterol Sulf (Proventil 0.083% 2.5MG/3ML), 2.5 MG INH BID PRN for SOB/Wheezing Miscellaneous Medications Triamcinolone Acetonide (Nasal (Nasacort Allergy 24Hr), 2 SPRAY ANIBAL Allergies Coded Allergies: Cephalosporins (Verified Allergy, Intermediate, RASH, 06/26/17) Replaces KEFUROX 1.5 G Sulfa Antibiotics (Verified Allergy, Intermediate, "Sulfa Drugs = rash", ) Terconazole (Verified Allergy, Intermediate, ITCHING, BURNING, 06/26/17) Penicillin G (Verified Allergy, Mild, RASH, 06/26/17) Amoxicillin (Verified Allergy, Unknown, UNKNOWN, 06/26/17) Clarithromycin (Verified Allergy, Unknown, UNKNOWN, 06/26/17) Clavulanic Acid (Verified Allergy, Unknown, UNKNOWN, 06/26/17) Adhesives (Verified Adverse Reaction, Mild, BAND-AIDS = SKIN IRRITATION, ) Physical Exam Vital Signs Date Time Temp Pulse Resp B/P (MAP) Pulse Ox O2 Delivery O2 Flow Rate FiO2 07/07/17 17:27 141 18 95/74 92 Room Air 07/07/17 16:52 141 18 86/74 91 Room Air 07/07/17 16:35 144 97/69 07/07/17 16:34 144 20 97/69 92 Room Air 07/07/17 16:05 144 20 95/74 93 Room Air 07/07/17 15:25 143 07/07/17 15:20 36.6 145 20 96/80 94 Room Air 07/07/17 15:20 94 Room Air 07/07/17 15:20 94 Room Air 07/07/17 15:20 94 Room Air Physical Exam GENERAL: Patient is awake, alert, and in no acute distress. Patient is resting comfortably and showing no signs of anxiety EYES: The conjunctivae are clear. The pupils are round and reactive. EARS, NOSE, MOUTH AND THROAT: The nose is without any evidence of any deformity. Mucous membranes are moist tongue is midline NECK: The neck is nontender and supple. RESPIRATORY: Normal respiratory effort is noted there is no evidence of wheezing rhonchi or rales CARDIOVASCULAR: Tachycardic but regular. No definite murmur noted. GASTROINTESTINAL: The abdomen is soft. Bowel sounds are present in all quadrants. Abdomen is nontender MUSCULOSKELETAL/EXTREMITIES: There is no evidence of gross deformity full range of motion is noted in the hips and shoulders SKIN: There is no obvious evidence of any rash. There are no petechiae, pallor or cyanosis noted. NEUROLOGIC: Patient is awake alert and oriented x3. Medical Decision & Procedures ER Provider Diagnostic Interpretation: Radiology results as stated below per my review and radiologist interpretation: SINGLE VIEW CHEST FINDINGS: An AP, portable, upright chest radiograph is compared to study dated 06/23/2017. Correlation is with chest CT dated 05/17/2014. The examination is degraded by portable technique and patient rotation. The heart is enlarged. There is mild congestion of the pulmonary vasculature. Patchy airspace opacities are present at both lung bases. No large pleural effusion or pneumothorax is seen. The skeletal structures are osteopenic. The bony thorax is grossly intact. IMPRESSION: 1. Cardiomegaly with mild pulmonary vascular congestion. 2. Bibasilar airspace opacities likely represent atelectasis. Correlate clinically for evidence of a superimposed infectious/inflammatory pneumonitis. Electronically signed by: Semaj Gonzalez M.D. 07/07/2017 3:43 PM Laboratory Results 07/07/17 15:25 Red Blood Count 4.50, Mean Corpuscular Volume 91.6, Mean Corpuscular Hemoglobin 30.4, Mean Corpuscular Hemoglobin Concent 33.3, Mean Platelet Volume 10.1, Neutrophils (%) (Auto) 69.4, Lymphocytes (%) (Auto) 21.2, Monocytes (%) (Auto) 6.9, Eosinophils (%) (Auto) 1.8, Basophils (%) (Auto) 0.4, Neutrophils # (Auto) 10.25, Lymphocytes # (Auto) 3.14, Monocytes # (Auto) 1.02, Eosinophils # (Auto) 0.26, Basophils # (Auto) 0.06 07/07/17 15:25 Test 07/07/17 15:25 07/07/17 17:30 White Blood Count 14.78 K/uL (4.8-10.8) Red Blood Count 4.50 M/uL (4.2-5.4) Hemoglobin 13.7 g/dL (12.0-16.0) Hematocrit 41.2 % (37-47) Mean Corpuscular Volume 91.6 fL (80-100) Mean Corpuscular Hemoglobin 30.4 pg (25-34) Mean Corpuscular Hemoglobin Concent 33.3 g/dl (32-36) Platelet Count 235 K/uL (130-400) Mean Platelet Volume 10.1 fL (7.4-10.4) Neutrophils (%) (Auto) 69.4 % Lymphocytes (%) (Auto) 21.2 % Monocytes (%) (Auto) 6.9 % Eosinophils (%) (Auto) 1.8 % Basophils (%) (Auto) 0.4 % Neutrophils # (Auto) 10.25 K/uL (1.4-6.5) Lymphocytes # (Auto) 3.14 K/uL (1.2-3.4) Monocytes # (Auto) 1.02 K/uL (0.11-0.59) Eosinophils # (Auto) 0.26 K/uL (0-0.5) Basophils # (Auto) 0.06 K/uL (0-0.2) RDW Standard Deviation 48.9 fL (36.4-46.3) RDW Coefficient of Variation 14.5 % (11.5-14.5) Immature Granulocyte % (Auto) 0.3 % Immature Granulocyte # (Auto) 0.05 K/uL (0.00-0.02) Prothrombin Time 11.1 SECONDS (9.0-12.0) Prothromb Time International Ratio 1.1 (0.9-1.1) Activated Partial Thromboplast Time 27.6 SECONDS (21.0-31.0) Partial Thromboplastin Ratio 1.1 Anion Gap 11.0 mmol/L (3-11) Est Creatinine Clear Calc Drug Dose 79.1 ml/min Estimated GFR () 70.7 Estimated GFR (Non- 61.0 BUN/Creatinine Ratio 21.9 (10-20) Calcium Level 9.3 mg/dl (8.5-10.1) Magnesium Level 1.8 mg/dl (1.8-2.4) Total Bilirubin 0.9 mg/dl (0.2-1) Aspartate Amino Transf (AST/SGOT) 24 U/L (15-37) Alanine Aminotransferase (ALT/SGPT) 53 U/L (12-78) Alkaline Phosphatase 128 U/L (45-117) Troponin I < 0.015 ng/ml (0-0.045) Total Protein 7.0 gm/dl (6.4-8.2) Albumin 3.7 gm/dl (3.4-5.0) Globulin 3.3 gm/dl (2.5-4.0) Albumin/Globulin Ratio 1.1 (0.9-2) Thyroid Stimulating Hormone (TSH) 0.772 uIu/ml (0.300-4.500) Free Thyroxine 1.37 ng/dl (0.80-1.60) Laboratory results per my review. Medications Administered Medications (Trade) Dose Ordered Sig/Vu Route Start Time Stop Time Status Last Admin Dose Admin Sodium Chloride 500 ml @ 999 mls/hr Q31M STAT IV 07/07/17 16:21 07/07/17 16:51 DC 07/07/17 16:34 999 MLS/HR Magnesium Sulfate (Magnesium Sulfate) 1 gm NOW STAT IV 07/07/17 16:22 07/07/17 16:23 DC 07/07/17 16:22 1 GM Metoprolol Tartrate (Lopressor Iv) 5 mg NOW STAT IV 07/07/17 16:22 07/07/17 16:23 DC 07/07/17 16:35 5 MG Sodium Chloride 1,000 ml @ 999 mls/hr Q1H1M STAT IV 07/07/17 17:01 07/07/17 18:01 07/07/17 17:07 999 MLS/HR ECG Per My Interpretation Indication: tachycardia Rate (beats per minute): 143 Rhythm: atrial fibrillation Findings: RBBB, other (No PVCs. ) Comparison ECG Date: 06/27/2017 Change: A-fib is new. ED Course 1513: The patient was evaluated in room B6. A complete history and physical examination were performed. 1515: Ordered Lopressor 15 mg IV. 1621: Ordered NSS 500 ml @ 999 mls/hr IV, Lopressor 5 mg IV, Magnesium Sulfate 1 gm IV. 1700: Upon reevaluation, the patient is resting comfortably. I discussed results and treatment plan with her. She verbalizes agreement and understanding. [facility] The patient will be evaluated for further management and care. Medical Decision Differential diagnosis: Etiologies such as premature contractions, electrolyte abnormality, cardiac dysrhythmia, thyroid dysfunction, pulmonary embolism, infection, gastrointestinal, as well as others were entertained. Nursing notes reviewed. The patient is a 66-year-old female who presented to the emergency department for palpitations and fast heart rate. She was found to be in rapid atrial fibrillation. 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 The patient was treated with IV fluids and IV Lopressor in the emergency department. She was reevaluated multiple times. She continued to have a fast heart rate as well as hypotension. I discussed this case with the on-call [facility] group. I am unsure if this represents hypotension from the patient's rapid atrial fibrillation or an infectious source. She was found to have an elevated white blood cell count but was recently taking steroids. She was treated with further IV fluids. At this time and cultures and a [id number] lactate was drawn. I further discussed her findings with the on-call [facility] group. She may require further testing to determine the best course of treatment. She may also require an evaluation by cardiology. Medication Reconcilliation Current Medication List: was personally reviewed by me Blood Pressure Screening Patient's blood pressure: Low blood pressure Blood pressure disposition: Did not require urgent referral Consults Time Called: 1655 Consulting Physician: Kim Roth [facility] Return[facility] Call: [phone] I discussed the patient's case with Kim Roth PA-C. The patient will be evaluated for further management. Impression Primary Impression: Rapid atrial fibrillation Additional Impression: Hypotension Scribe Attestation The scribe's documentation has been prepared under my direction and personally reviewed by me in its entirety. I confirm that the note above accurately reflects all work, treatment, procedures, and medical decision making performed by me. Departure Information Dispostion Being Evaluated By Hospitalist Referrals Sabine Mosley D.O. (PCP) Patient Instructions My [facility] Problem Qualifiers Additional Impression: Hypotension Hypotension type: unspecified hypotension type Qualified Codes: I95.9 - Hypotension, unspecified
[2017-07-07] MEDS ORDERED: MAGN1CAP2 PO (17:40)
[2017-07-07] MEDS ORDERED: AMIODARONE IV BOLUS / DRIP IV STA (17:49)
--- NOTE | 2017-07-07 17:59 | History and Physical ---
History & Physical Date & Time of Service: Jul 07, 2017 at 17:59 Chief Complaint: Cardiac Assesment Afib Primary Care Physician: Sabine Mosley D.O. History of Present Illness Source: patient, clinic records, hospital records Patient is a 66-year-old female with a past medical history of paroxysmal A. fib, DM II, COPD, history of CVA and other problems mentioned below who presents from respiratory therapy with tachycardia. Patient was recently admitted from 06/26-06/27 for A flutter with RVR with HR of 138 that spontaneously converted. Toprol dose was increased from 12.5mg BID to 25mg BID and patient was discharged home on Eliquis. A few days later, patient started to experience URI symptoms such as nasal congestion and productive cough with yellow sputum and was started on a steroid taper that she completed today. Has been taking PRN Xopenex nebs and albuterol more frequently than before. Endorses lightheadedness with exertion and palpitations but denies near-syncope , chest pain, SOB or LE swelling. States that she felt bloated after eating dairy over the weekend and had diarrhea that has since resolved. Has been eating /drinking less than normal the past few days and feels dehydrated. Denies fever , chills, headache, visual changes, abdominal pain, nausea, vomiting, dysuria, Echocardiogram from a few weeks ago shows EF: 60-65%, no wall motion abnormalities or significant valvular disease. Follows with Dr. Mosley for cardio. Past Medical/Surgical History Medical Problems: (1) Arthritis Status: Chronic (2) COPD (chronic obstructive pulmonary disease) Status: Chronic (3) Diabetes mellitus, type II Status: Chronic (4) H/O: CVA (cerebrovascular accident) Status: Chronic (5) HLD (hyperlipidemia) Status: Chronic (6) Mood disorder Status: Chronic (7) REENA (obstructive sleep apnea) Status: Chronic (8) Paroxysmal atrial fibrillation Status: Chronic (9) RBBB Status: Chronic Social History Problems: (1) Benign hypertension Status: Chronic (2) Bipolar disorder Status: Chronic Family History Diabetes mellitus Social History Smoking Status: Former Smoker Marital Status: Housing status: lives with significant other Occupational Status: unemployed Immunizations History of Influenza Vaccine: No Influenza Vaccine Date: Jan 05, 2005 History of Tetanus Vaccine?: Yes Tetanus Immunization Date: Nov 17, 2010 History of Pneumococcal: Yes History of Hepatitis B Vaccine: Yes Allergies Coded Allergies: Cephalosporins (Verified Allergy, Intermediate, RASH, 06/26/17) Replaces KEFUROX 1.5 G Sulfa Antibiotics (Verified Allergy, Intermediate, "Sulfa Drugs = rash", ) Terconazole (Verified Allergy, Intermediate, ITCHING, BURNING, 06/26/17) Penicillin G (Verified Allergy, Mild, RASH, 06/26/17) Amoxicillin (Verified Allergy, Unknown, UNKNOWN, 06/26/17) Clarithromycin (Verified Allergy, Unknown, UNKNOWN, 06/26/17) Clavulanic Acid (Verified Allergy, Unknown, UNKNOWN, 06/26/17) Adhesives (Verified Adverse Reaction, Mild, BAND-AIDS = SKIN IRRITATION, ) Home Medications Scheduled Apixaban (Eliquis), 5 MG PO BID Atorvastatin (Lipitor), 40 MG PO DAILY Cinnamon (Cinnamon), 1,000 MG PO BID Cranberry (Vaccinium Macrocarp (Cranberry Juice Extract), 1,000 MG PO BID Estrogens, Conjugated (Premarin), 1 APPLN PV HS Ferrous Sulfate (Ferrous Sulfate), 325 MG PO BID Fluticasone Prop/Salmeterol (Advair Diskus 500/50 60 Dose), 1 PUFF INH BID Insulin Aspart Protamine & Asp (Novolog Mix 70/30), 40 UNITS SC QPM Insulin Glargine (Basaglar Kwikpen), 40 UNITS SQ BID Insulin Isophan/Regular (Novolin 70/30), 45 UNITS SC QAM Ketoconazole (Topical) (Ketoconazole), 1 APPLN TOP UD Lamotrigine (Lamictal), 100 MG PO HS Levocetirizine Dihydrochloride (Xyzal Allergy 24Hr), 5 MG PO DAILY Liraglutide (Victoza), 1 DOSE SQ DAILY Magnesium Oxide (Mg Supplement (Magnesium), 400 MG PO BID Metformin Hcl (Glucophage), 1,000 MG PO BID Metoprolol Tartrate (Lopressor), 25 MG PO Q12H Montelukast Sodium (Singulair), 10 MG PO DAILY Multiple Vitamin (Multivitamin), 1 TAB PO QAM Nystatin (Topical) (Nystop), 1 DOSE TOP TID Nystatin-Triamcinolone (Nystatin/Triamcinolone), 1 APPLN TOP BID Pantoprazole (Protonix), 40 MG PO HS Tiotropium [place] (Spiriva Handihaler), 1 CAP INH DAILY Vitamin B Cmplx/Vitc/Folic Ac (Nephrocaps), 1 CAP PO DAILY Scheduled PRN Acetaminophen (Tylenol Arthitis Ext Rel), 1-2 TAB PO PRN PRN for RN Albuterol Hfa (Ventolin Hfa), 2 PUFFS INH Q6H PRN for SOB/Wheezing Albuterol Sulf (Proventil 0.083% 2.5MG/3ML), 2.5 MG INH BID PRN for SOB/Wheezing Levalbuterol Tartrate (Levalbuterol Tartrate Hfa), 2 PUFFS INH Q4H PRN for Shortness of Breath Miscellaneous Medications Triamcinolone Acetonide (Nasal (Nasacort Allergy 24Hr), 2 SPRAY ANIBAL Review of Systems Ten systems reviewed and negative except as noted in the HPI. Physical Exam Vital Signs Date Time Temp Pulse Resp B/P (MAP) Pulse Ox O2 Delivery O2 Flow Rate FiO2 07/07/17 17:27 141 18 95/74 92 Room Air 07/07/17 16:52 141 18 86/74 91 Room Air 07/07/17 16:35 144 97/69 07/07/17 16:34 144 20 97/69 92 Room Air 07/07/17 16:05 144 20 95/74 93 Room Air 07/07/17 15:25 143 07/07/17 15:20 36.6 145 20 96/80 94 Room Air 07/07/17 15:20 94 Room Air 07/07/17 15:20 94 Room Air 07/07/17 15:20 94 Room Air General Appearance: WD/WN, no apparent distress, + pertinent finding ( Conversational ) Head: normocephalic, atraumatic Eyes: normal inspection, PERRL, sclerae normal ENT: normal ENT inspection, hearing grossly normal, pharynx normal (dry mucous membranes ) Neck: supple, no JVD, trachea midline Respiratory/Chest: chest non-tender, lungs clear, no respiratory distress, no accessory muscle use, + decreased breath sounds Cardiovascular: no edema, normal peripheral pulses, + tachycardia Abdomen/GI: non tender, soft, no organomegaly Back: normal inspection Extremities/Musculoskelatal: normal inspection, no calf tenderness, no pedal edema, non-tender Neurologic/Psych: no motor/sensory deficits, alert, normal mood/affect, oriented x 3 Skin: normal color, warm/dry Diagnostics Laboratory Results Results Past 24 Hours Test 07/07/17 15:25 07/07/17 17:30 Range/Units White Blood Count 14.78 4.8-10.8 K/uL Red Blood Count 4.50 4.2-5.4 M/uL Hemoglobin 13.7 12.0-16.0 g/dL Hematocrit 41.2 37-47 % Mean Corpuscular Volume 91.6 80-100 fL Mean Corpuscular Hemoglobin 30.4 25-34 pg Mean Corpuscular Hemoglobin Concent 33.3 32-36 g/dl Platelet Count 235 130-400 K/uL Mean Platelet Volume 10.1 7.4-10.4 fL Neutrophils (%) (Auto) 69.4 % Lymphocytes (%) (Auto) 21.2 % Monocytes (%) (Auto) 6.9 % Eosinophils (%) (Auto) 1.8 % Basophils (%) (Auto) 0.4 % Neutrophils # (Auto) 10.25 1.4-6.5 K/uL Lymphocytes # (Auto) 3.14 1.2-3.4 K/uL Monocytes # (Auto) 1.02 0.11-0.59 K/uL Eosinophils # (Auto) 0.26 0-0.5 K/uL Basophils # (Auto) 0.06 0-0.2 K/uL RDW Standard Deviation 48.9 36.4-46.3 fL RDW Coefficient of Variation 14.5 11.5-14.5 % Immature Granulocyte % (Auto) 0.3 % Immature Granulocyte # (Auto) 0.05 0.00-0.02 K/uL Prothrombin Time 11.1 9.0-12.0 SECONDS Prothromb Time International Ratio 1.1 0.9-1.1 Activated Partial Thromboplast Time 27.6 21.0-31.0 SECONDS Partial Thromboplastin Ratio 1.1 Sodium Level 138 136-145 mmol/L Potassium Level 4.1 3.5-5.1 mmol/L Chloride Level 104 98-107 mmol/L Carbon Dioxide Level 23 21-32 mmol/L Anion Gap 11.0 3-11 mmol/L Blood Urea Nitrogen 22 7-18 mg/dl Creatinine 0.98 0.60-1.20 mg/dl Est Creatinine Clear Calc Drug Dose 79.1 ml/min Estimated GFR () 70.7 Estimated GFR (Non- 61.0 BUN/Creatinine Ratio 21.9 10-20 Random Glucose 162 70-99 mg/dl Calcium Level 9.3 8.5-10.1 mg/dl Magnesium Level 1.8 1.8-2.4 mg/dl Total Bilirubin 0.9 0.2-1 mg/dl Aspartate Amino Transf (AST/SGOT) 24 15-37 U/L Alanine Aminotransferase (ALT/SGPT) 53 12-78 U/L Alkaline Phosphatase 128 45-117 U/L Troponin I < 0.015 0-0.045 ng/ml Total Protein 7.0 6.4-8.2 gm/dl Albumin 3.7 3.4-5.0 gm/dl Globulin 3.3 2.5-4.0 gm/dl Albumin/Globulin Ratio 1.1 0.9-2 Thyroid Stimulating Hormone (TSH) 0.772 0.300-4.500 uIu/ml Free Thyroxine 1.37 0.80-1.60 ng/dl Microbiology Results 07/07/17 Blood Culture, Received Pending 07/07/17 Blood Culture, Received Pending Diagnostic Radiology CXR: IMPRESSION: 1. Cardiomegaly with mild pulmonary vascular congestion. 2. Bibasilar airspace opacities likely represent atelectasis. Correlate clinically for evidence of a superimposed infectious/inflammatory pneumonitis. EKG A flutter with 2:1 conduction at 141 bpm. Impression Assessment and Plan Patient is a 66-year-old female with a past medical history of paroxysmal A. fib, DM II, COPD, history of CVA and other problems mentioned below who presents from respiratory therapy with tachycardia and was found to have A Flutter with RVR. A flutter in RVR: -H/o paroxysmal A Fib. Recently seen for A fib with RVR June 26 -A flutter with 2:1 block at 141 bpm -BP of 96/80 initially -Given 20mg IV Lopressor total in ED -BP decreased to 86/74 -Electrolytes, TSH wnl -Cardio consulted -Amiodarone bolus and drip -Monitor on telemetry -Continue Eliquis. Hold PO Toprol for now. -Echo from June 2017 with normal EV, no wall motion abnormalities DM II: -Most recent a1c of 7.3 in June 2017 -Hold victoza, metformin, 70/30 insulin while in-patient -Continue Lantus 40U BID with tight correction factor and CHO ratio -BSG checks AC HS -Diabetic diet Leukocytosis: -Likely steroid induced; completed taper today -Recent URI, resolving -Repeat CBC tomorrow COPD: -At baseline -Recent URI with resolution -No SOB, wheezing -Cont Spiriva, Advair, singulair as scheduled -Xopenex inhaler PRN H/o CVA: -Continue baby aspirin Mood disorder: -Cont Lamictal, Ativan PRN GERD: -Cont PPI DVT Ppx: Eliquis Code status: FULL PCP: Marion Mosley Dispo: Admitted to telemetry. Discharge planning ordered once medically appropriate. Patient seen in collaboration with Dr. Martinez . Please see addendum. Attending Note: Patient is a 66 yr female with PMH of Afib, Atrial flutter, COPD and other problems presents with history of dyspnea on exertion, palpitations, dizziness. Patient is currently undergoing treatment with PO prednisone for URI infection and she states she was seen by her respiratory therapist and was found to be tachycardic. She also states she has been using her albuterol more frequently secondary to URI. She was recently discharged from [facility] after being treated for A.flutter RVR. she has poor appetite since few days secondary to URI. She was was found to be in atrial flutter RVR with low blood pressure. Physical Exam: Vitals signs as noted above General Appearance:Obese, no apparent distress Head: normocephalic, Atraumatic Eyes: normal inspection, EOMI, PERRL Neck: supple, Trachea midline Respiratory/Chest: Decreased breath sounds, CTA Cardiovascular: Tachycardiac, No murmur Abdomen/GI:Soft, Non tender, Bowel sounds present Extremities/Musculoskelatal:normal inspection, Trace edema Neurologic/Psych:AAOX3, grossly no focal neurological deficits Skin:normal color,warm Assessment and Plan: Atrial Flutter RVR: Started on amiodarone ggt Thyroid function normal Hold home Metoprolol Cardiology consulted On Eliquis for anticoagulation I personally reviewed the record. Patient is interviewed and examined at bedside. Patient's care is coordinated with Ina Piedra PA-C.Please refer to the documentation above for details of patient's presentation and for discussion of other issues. Resuscitation Status VTE Prophylaxis Will order VTE Prophylaxis: Yes
[2017-07-07] MEDS ORDERED: AMIODARONE / D5W 100 ML IV SCH (18:00)
[2017-07-07] MEDS ORDERED: AMIODARONE / D5W 200 ML IV SCH (18:15)
[2017-07-07] MEDS ORDERED: FERR325T5 PO (18:17)
[2017-07-07] MEDS ORDERED: INSU70IN2 SC (18:17)
[2017-07-07 18:50] VITALS: BP 123/89; PULSE 135; TEMP 36.9; O2SAT 95; BMI 47.9
[2017-07-07] MEDS ORDERED: SODIUM CHLORIDE 0.9% 1000ML 1,000 ML IV SCH (19:00)
[2017-07-07] MEDS ORDERED: NYSTCRE32 TOP (19:02)
[2017-07-07] MEDS ORDERED: NYST100010 TOP (19:02)
[2017-07-07] MEDS ORDERED: GLUCOSE 40% GEL 15 GM TUBE PO PRN (19:15)
[2017-07-07] MEDS ORDERED: DEXTROSE 50% 50 ML SYR IV PRN (19:15)
[2017-07-07] MEDS ORDERED: GLUCAGON FOR INJ 1 MG VIAL SQ PRN (19:15)
[2017-07-07] MEDS ORDERED: GLUCOSE 10 TABS/TUBE PO PRN (19:15)
[2017-07-07] MEDS ORDERED: METOPROLOL TARTRATE 25 MG TAB PO SCH (19:15)
[2017-07-07] MEDS: XYZAL~ORDER AWAITING ACTION SCH (19:30)
[2017-07-07] MEDS ORDERED: LEValbuterol HFA 15GM INHALER INH PRN (20:00)
[2017-07-07] MEDS: NYSTATIN/TRIAMCINOLONE CR 15 GM TUBE EXT SCH (20:44)
[2017-07-07] MEDS: FLUTICASONE/SALMETEROL (ADVAIR) 500/50 INH 14 PUFF INH SCH (20:44)
[2017-07-07] MEDS: NYSTATIN POWDER 15GM BTL EXT SCH (20:44)
[2017-07-07] MEDS: MAGNESIUM OXIDE 400 MG TAB PO SCH (20:45)
[2017-07-07] MEDS: APIXABAN 2.5 MG TAB PO SCH (20:46)
[2017-07-07] MEDS: PANTOprazole SOD 40 MG TAB PO SCH (20:47)
[2017-07-07] MEDS ORDERED: INSULIN ASPART 100 UNITS/ML 3 ML PEN SC SCH (21:00)
[2017-07-07] MEDS ORDERED: INSULIN GLARGINE SOLOSTAR 100 UNITS/ML 3 ML PEN SQ SCH (21:00)
[2017-07-07] MEDS ORDERED: IV FLUIDS COMPLETED PRN (21:00)
[2017-07-07] MEDS ORDERED: DIGOXIN IV 250 MCG in SYRINGE 9 ML IV ONE (22:30)
[2017-07-07] MEDS ORDERED: MAGNESIUM SULFATE 1GM / D5W 1 GM in PREMIXED IN D5W 100 ML IV ONE (22:30)
[2017-07-07] MEDS ORDERED: METF1000 PO (23:04)
[2017-07-07] MEDS ORDERED: B-CO1CAP17 PO (23:04)
[2017-07-07] MEDS ORDERED: VNTHFA/IN INH (23:04)
[2017-07-07] MEDS ORDERED: MONT1TAB3 PO (23:04)
[2017-07-07] MEDS ORDERED: SPRIN/30 INH (23:04)
[2017-07-07] MEDS ORDERED: INSDGI SC (23:04)
[2017-07-08] VITALS (12 sets, daily range): BP systolic 108–136; BP diastolic 64–85; PULSE 69–139; TEMP 36.6–36.7; O2SAT 90–94
[2017-07-08] MEDS ORDERED: AMIODARONE / D5W 200 ML IV SCH (00:15)
[2017-07-08] MEDS ORDERED: METOPROLOL TARTRATE 1 MG/ML VIAL IV STA (00:49)
[2017-07-08] MEDS: ACETAMINOPHEN 325 MG TAB PO PRN ×2 (01:42→17:21)
[2017-07-08] MEDS ORDERED: COUGH DROP (SUGAR FREE) LOZ 24 LOZ/1 BOX LOZ ONE (01:46)
[2017-07-08] MEDS ORDERED: DIGOXIN IV 250 MCG in SYRINGE 9 ML IV ONE (02:00)
[2017-07-08] MEDS ORDERED: ALBUMIN HUMAN 25% 12.5 GM/50 ML VIAL IV ONE (02:00)
[2017-07-08 02:21] LABS: BASO % 0.4 %; BASO ABS # 0.05 K/uL (0-0.2); EOS % 1.8 %; EOS ABS # 0.24 K/uL (0-0.5); HEMATOCRIT 38.4 % (37-47); HEMOGLOBIN 12.3 g/dL (12.0-16.0); IG# 0.06 K/uL (0.00-0.02); LYMPH % 36.4 %; LYMPH ABS # 4.93 K/uL (1.2-3.4); MEAN CELL VOLUME 92.1 fL (80-100); MEAN CORPUSCULAR HEMOGLOBIN 29.5 pg (25-34); MEAN PLATELET VOLUME 10.5 fL (7.4-10.4); MONO % 6.4 %; MONO ABS # 0.87 K/uL (0.11-0.59); NEUT % 54.6 %; NEUT ABS # 7.41 K/uL (1.4-6.5); PLATELET COUNT 204 K/uL (130-400); RED CELL DISTRIBUTION WIDTH CV 14.5 % (11.5-14.5); RED CELL DISTRIBUTION WIDTH SD 48.8 fL (36.4-46.3); WHITE BLOOD COUNT 13.56 K/uL (4.8-10.8)
[2017-07-08 02:39] LABS: CALCIUM 8.3 mg/dl (8.5-10.1); POTASSIUM 3.9 mmol/L (3.5-5.1)
[2017-07-08] MEDS ORDERED: POTASSIUM CHLORIDE 10 MEQ TABCR PO STA (03:04)
[2017-07-08 03:16] LABS: ALBUMIN 3.5 gm/dl (3.4-5.0)
[2017-07-08] MEDS ORDERED: CALCIUM GLUCONATE 10% 1,000 MG in SODIUM CHLORIDE 0.9% 50ML 50 ML IV STA (03:17)
[2017-07-08] MEDS ORDERED: INSULIN GLARGINE SOLOSTAR 100 UNITS/ML 3 ML PEN SC ONE (03:18)
[2017-07-08] MEDS ORDERED: INSULIN ASPART 100 UNITS/ML 3 ML PEN SC ONE ×2 (03:18→07:47)
[2017-07-08] MEDS ORDERED: INSULIN GLARGINE SOLOSTAR 100 UNITS/ML 3 ML PEN SQ ONE (03:37)
[2017-07-08] MEDS: XYZAL~ORDER AWAITING ACTION SCH ×4 (08:00→23:26)
[2017-07-08] MEDS: FERROUS SULFATE 325 MG TAB PO SCH ×2 (08:38→17:19)
[2017-07-08] MEDS: NEPHROCAPS PO SCH (08:38)
[2017-07-08] MEDS: APIXABAN 2.5 MG TAB PO SCH ×2 (08:39→21:09)
[2017-07-08] MEDS: ATORVASTATIN 40 MG TAB PO SCH (08:40)
[2017-07-08] MEDS: FLUTICASONE/SALMETEROL (ADVAIR) 500/50 INH 14 PUFF INH SCH ×2 (08:40→21:10)
[2017-07-08] MEDS: NYSTATIN POWDER 15GM BTL EXT SCH ×3 (08:41→21:11)
[2017-07-08] MEDS: NYSTATIN/TRIAMCINOLONE CR 15 GM TUBE EXT SCH ×2 (08:41→21:11)
[2017-07-08] MEDS: MONTELUKAST SOD 10 MG TAB PO SCH ×2 (09:00→21:20)
[2017-07-08] MEDS ORDERED: INSULIN GLARGINE SOLOSTAR 100 UNITS/ML 3 ML PEN SC SCH (09:00)
[2017-07-08] MEDS: TIOTROPIUM BROMIDE 5 PUFF/90 MCG INH INH SCH (09:00)
[2017-07-08] MEDS ORDERED: INSULIN ASPART 100 UNITS/ML 3 ML PEN SC SCH (11:00)
[2017-07-08] MEDS: MAGNESIUM OXIDE 400 MG TAB PO SCH ×2 (11:39→21:10)
[2017-07-08] MEDS: INSULIN ASPART 100 UNITS/ML 3 ML PEN SC SCH ×3 (11:43→21:17)
--- NOTE | 2017-07-08 12:20 | Progress Note ---
Medicine Progress Note Date & Time of Visit: Jul 08, 2017 at 12:20. Subjective converted to SR seen resting in bed comfortable states she feels better today denies chest pain, dyspnea, palpitations, dizziness no other symptoms Objective Last 8 Hrs Date Time Temp Pulse Resp B/P (MAP) Pulse Ox O2 Delivery O2 Flow Rate FiO2 07/08/17 11:35 36.6 73 20 126/81 (96) 92 Room Air 07/08/17 08:00 Room Air 07/08/17 07:57 36.7 69 20 132/85 (101) 94 Room Air Physical Exam: General- oriented x 3, not in distress, speaks in sentences with no effort Head- atraumatic Eyes- PERRL, EOMI, anicteric ENT- oropharynx clear Neck- supple, no JVD, no adenopathy, no thyromegaly Lungs- clear to auscultation bilaterally Heart- regular rhythm; no murmur, normal rate Abdomen- normal bowel sounds, soft, nontender Extremities- no pretibial edema, no calf tenderness; peripheral pulses intact Neuro- alert, oriented x 3; no gross focal deficits Skin- warm & dry Laboratory Results: Last 24 Hours Test 07/07/17 15:25 07/07/17 17:30 07/07/17 17:45 07/07/17 18:15 White Blood Count 14.78 K/uL Red Blood Count 4.50 M/uL Hemoglobin 13.7 g/dL Hematocrit 41.2 % Mean Corpuscular Volume 91.6 fL Mean Corpuscular Hemoglobin 30.4 pg Mean Corpuscular Hemoglobin Concent 33.3 g/dl Platelet Count 235 K/uL Mean Platelet Volume 10.1 fL Neutrophils (%) (Auto) 69.4 % Lymphocytes (%) (Auto) 21.2 % Monocytes (%) (Auto) 6.9 % Eosinophils (%) (Auto) 1.8 % Basophils (%) (Auto) 0.4 % Neutrophils # (Auto) 10.25 K/uL Lymphocytes # (Auto) 3.14 K/uL Monocytes # (Auto) 1.02 K/uL Eosinophils # (Auto) 0.26 K/uL Basophils # (Auto) 0.06 K/uL RDW Standard Deviation 48.9 fL RDW Coefficient of Variation 14.5 % Immature Granulocyte % (Auto) 0.3 % Immature Granulocyte # (Auto) 0.05 K/uL Prothrombin Time 11.1 SECONDS Prothromb Time International Ratio 1.1 Activated Partial Thromboplast Time 27.6 SECONDS Partial Thromboplastin Ratio 1.1 Sodium Level 138 mmol/L Potassium Level 4.1 mmol/L Chloride Level 104 mmol/L Carbon Dioxide Level 23 mmol/L Anion Gap 11.0 mmol/L Blood Urea Nitrogen 22 mg/dl Creatinine 0.98 mg/dl Est Creatinine Clear Calc Drug Dose 79.1 ml/min Estimated GFR () 70.7 Estimated GFR (Non- 61.0 BUN/Creatinine Ratio 21.9 Random Glucose 162 mg/dl Calcium Level 9.3 mg/dl Magnesium Level 1.8 mg/dl Total Bilirubin 0.9 mg/dl Aspartate Amino Transf (AST/SGOT) 24 U/L Alanine Aminotransferase (ALT/SGPT) 53 U/L Alkaline Phosphatase 128 U/L Troponin I < 0.015 ng/ml Total Protein 7.0 gm/dl Albumin 3.7 gm/dl Globulin 3.3 gm/dl Albumin/Globulin Ratio 1.1 Thyroid Stimulating Hormone (TSH) 0.772 uIu/ml Free Thyroxine 1.37 ng/dl Random Cortisol 7.62 mcg/dl Hepatitis C Antibody Screen NEG Bedside Lactic Acid Venous 2.86 mmol/L Urine Color DK YELLOW Urine Appearance CLOUDY Urine pH 5.0 Urine Specific [place] 1.034 Urine Protein NEG Urine Glucose (UA) NEG Urine Ketones TRACE Urine Occult Blood NEG Urine Nitrite NEG Urine Bilirubin NEG Urine Urobilinogen NEG Urine Leukocyte Esterase SMALL Urine WBC (Auto) 1-5 /hpf Urine RBC (Auto) 0-4 /hpf Urine Hyaline Casts (Auto) 1-5 /lpf Urine Epithelial Cells (Auto) >30 /lpf Urine Bacteria (Auto) NEG Urine Crystals CALCIUM OXALATE Test 07/07/17 20:48 07/08/17 02:07 07/08/17 04:20 07/08/17 06:36 Bedside Glucose 168 mg/dl 219 mg/dl 174 mg/dl White Blood Count 13.56 K/uL Red Blood Count 4.17 M/uL Hemoglobin 12.3 g/dL Hematocrit 38.4 % Mean Corpuscular Volume 92.1 fL Mean Corpuscular Hemoglobin 29.5 pg Mean Corpuscular Hemoglobin Concent 32.0 g/dl Platelet Count 204 K/uL Mean Platelet Volume 10.5 fL Neutrophils (%) (Auto) 54.6 % Lymphocytes (%) (Auto) 36.4 % Monocytes (%) (Auto) 6.4 % Eosinophils (%) (Auto) 1.8 % Basophils (%) (Auto) 0.4 % Neutrophils # (Auto) 7.41 K/uL Lymphocytes # (Auto) 4.93 K/uL Monocytes # (Auto) 0.87 K/uL Eosinophils # (Auto) 0.24 K/uL Basophils # (Auto) 0.05 K/uL RDW Standard Deviation 48.8 fL RDW Coefficient of Variation 14.5 % Immature Granulocyte % (Auto) 0.4 % Immature Granulocyte # (Auto) 0.06 K/uL Sodium Level 138 mmol/L Potassium Level 3.9 mmol/L Chloride Level 107 mmol/L Carbon Dioxide Level 21 mmol/L Anion Gap 10.0 mmol/L Blood Urea Nitrogen 21 mg/dl Creatinine 1.00 mg/dl Est Creatinine Clear Calc Drug Dose 77.5 ml/min Estimated GFR () 69.0 Estimated GFR (Non- 59.5 BUN/Creatinine Ratio 21.5 Random Glucose 248 mg/dl Lactic Acid Level 2.8 mmol/L Calcium Level 8.3 mg/dl Magnesium Level 2.0 mg/dl Albumin 3.5 gm/dl Procalcitonin < 0.05 ng/ml Test 07/08/17 09:00 07/08/17 11:37 Lactic Acid Level 1.8 mmol/L Bedside Glucose 167 mg/dl Date/Time Source Procedure Growth Status 07/07/17 17:43 Blood Blood Culture Pending Received 07/07/17 17:30 Blood Blood Culture Pending Received Assessment & Plan Patient is a 66-year-old female with a past medical history of paroxysmal A. fib, DM II, COPD, history of CVA and other problems mentioned below who presents from respiratory therapy with tachycardia and was found to have A Flutter with RVR. A flutter in RVR -H/o paroxysmal A Fib. Recently seen for A fib with RVR June 26 -Cardio consulted -Amiodarone bolus and drip - converted to SR - Per Cardio, d/c Amiodarone plan to start Sotalol tomorrow if QT is < 500 - continue Eliquis DM II: -Most recent a1c of 7.3 in June 2017 -Hold victoza, metformin, 70/30 insulin while in-patient -Continue Lantus 40U BID with tight correction factor and CHO ratio -BSG checks AC HS -Diabetic diet Leukocytosis: -Likely steroid induced; completed taper today -Recent URI, resolving COPD: -At baseline -Recent URI with resolution -No SOB, wheezing -Cont Spiriva, Advair, singulair as scheduled -Xopenex inhaler PRN H/o CVA: -Continue baby aspirin Mood disorder: -Cont Lamictal, Ativan PRN GERD: -Cont PPI DVT Ppx: Eliquis Code status: FULL PCP: Marion Mosley Dispo: pending anticipate d/c home when medically stable Current Inpatient Medications: Current Inpatient Medications Medications (Trade) Dose Ordered Sig/Vu Route Start Time Stop Time Status Last Admin Dose Admin Acetaminophen (Tylenol Tab) 650 mg Q4H PRN PO 07/07/17 18:00 08/06/17 17:59 07/08/17 01:42 650 MG Apixaban (Eliquis Tab) 5 mg BID PO 07/07/17 21:00 08/06/17 20:59 07/08/17 08:39 5 MG Atorvastatin Calcium (Lipitor Tab) 40 mg DAILY PO 07/08/17 09:00 08/07/17 08:59 07/08/17 08:40 40 MG Ferrous Sulfate (Feosol Tab) 325 mg BIDM PO 07/08/17 07:30 08/07/17 07:29 07/08/17 08:38 325 MG Salmeterol Xinafoate/ Fluticasone (Advair Diskus 500/50 Inh) 1 puff BID INH 07/07/17 21:00 08/06/17 20:59 07/08/17 08:40 1 PUFF Lamotrigine (Lamictal Tab) 100 mg HS PO 07/07/17 21:00 08/06/17 20:59 07/07/17 20:45 100 MG Levalbuterol (Xopenex Hfa Inhaler) 2 puffs Q4H PRN INH 07/07/17 20:00 08/06/17 19:59 Montelukast Sodium (Singulair Tab) 10 mg DAILY PO 07/08/17 09:00 08/07/17 08:59 Nystatin (Mycostatin Powder) 1 appln TID EXT 07/07/17 21:00 08/06/17 20:59 07/08/17 08:41 1 APPLN Nystatin/ Triamcinolone Acetonide (Mycogen II Crm) 1 appln BID EXT 07/07/17 21:00 08/06/17 20:59 07/08/17 08:41 1 APPLN Pantoprazole Sodium (Protonix Tab) 40 mg HS PO 07/07/17 21:00 08/06/17 20:59 07/07/17 20:47 40 MG Tiotropium [place] (Spiriva Handihaler Inhaler) 1 puff DAILY INH 07/08/17 09:00 08/07/17 08:59 Vitamin B Complex/ Vit C/Folic Acid (Nephrocaps) 1 cap DAILY PO 07/08/17 09:00 08/07/17 08:59 07/08/17 08:38 1 CAP Miscellaneous Information (Order Awaiting Action) 1 ea QS N/A 07/07/17 19:30 08/06/17 19:29 Magnesium Oxide (Mag-Ox Tab) 400 mg BID PO 07/07/17 21:00 08/06/17 20:59 07/08/17 11:39 400 MG Glucose (Glucose 40% Gel) 15-30 GRAMS 15 GRAMS... UD PRN PO 07/07/17 19:15 08/06/17 19:14 Glucose (Glucose Chew Tab) 4-8 Tablets 4 Tabl... UD PRN PO 07/07/17 19:15 08/06/17 19:14 Dextrose (Dextrose 50% 50ML Syringe) 25-50ML OF 50% DW IV FOR... UD PRN IV 07/07/17 19:15 08/06/17 19:14 Glucagon (Glucagon Inj) 1 mg UD PRN SQ 07/07/17 19:15 08/06/17 19:14 Miscellaneous (Iv Fluids Completed) 1 ea PRN PRN N/A 07/07/17 21:00 07/07/18 20:59 Insulin Aspart (novoLOG ASPART) SLIDING SCALE If C... ACHS SC 07/08/17 11:00 08/06/17 20:59 07/08/17 11:43 14 UNITS Insulin Glargine (Lantus Solostar Pen) 42 units BID SQ 07/08/17 21:00 08/06/17 20:59
--- NOTE | 2017-07-08 15:49 | CARDIOLOGY CONSULTATION ---
DATE OF CONSULTATION: 07/08/2017 CONSULTATION REQUESTED BY: Dr. Martinez. REASON FOR CONSULTATION: Symptomatic atrial flutter with rapid ventricular response. HISTORY OF PRESENT ILLNESS: Ms. Mercado is a very pleasant 66-year-old woman who has been followed very closely with Dr. Wells of our cardiology practice for history of paroxysmal atrial flutter. She presented to [facility] on 07/07/2017 with a complaint of significant dyspnea with exertion and palpitations. The patient states that for the last several days she has noticed that her heart seems to have been bracing more, but she was recently started on prednisone for an upper respiratory tract infection and chalked her heart racing up to the effects of the prednisone. However, today she was walking into Dr. Cerrato's office for an evaluation, she became severely dyspneic on a very short walk. She was triaged at that appointment and found to be back in atrial flutter and sent to [facility]. In the Emergency Department, it was confirmed that she was in atrial flutter, upon arrival with a 2:1 block. She was evaluated by Dr. Martinez and placed on an amiodarone drip and the patient spontaneously converted at 7:07 a.m. today. Currently, she states that she is feeling much better. She states her heart is no longer racing and her breathing is improved. Of note, the patient has had a total of 3 episodes of atrial flutter dating back over the last 5 years with the last 2 episodes now occurring approximately 1 week apart. PAST SURGICAL HISTORY: 1. Colonoscopy. 2. Cystoscopy. 3. Tonsillectomy. 4. Hysteroscopy. MEDICAL ILLNESSES: 1. Paroxysmal atrial flutter, increasing in frequency. 2. Reactive airway disease. 3. CVA. 4. COPD. 5. Obstructive sleep apnea. 6. Dyslipidemia. 7. Type 2 diabetes. 8. Right bundle branch block. 9. Elevated BMI. FAMILY HISTORY: Denies any premature coronary artery disease or sudden cardiac . SOCIAL HISTORY: The patient is a former smoker, has a [id number] history. She is . She lives at home with her . REVIEW OF SYSTEMS: As per HPI. All review of systems reviewed and negative at this time. ALLERGIES: 1. PENICILLIN. 2. AUGMENTIN. 3. CEPHALOSPORINS. 4. CLARITHROMYCIN. 5. SULFA. 6. ITRACONAZOLE. MEDICATIONS AN OUTPATIENT: 1. Eliquis 5 mg b.i.d. 2. Atorvastatin 40 mg daily. 3. Metformin b.i.d. 4. Spiriva daily. 5. Protonix daily. 6. Insulin 70/30 as directed. 7. Metoprolol tartrate 25 mg b.i.d. 8. Singulair daily. 9. Premarin cream. PHYSICAL EXAMINATION: VITALS: Temperature 36.7, pulse 69, respiratory rate 12, blood pressure 132/85. GENERAL: Awake, alert, oriented x3 in no acute distress. HEENT: Normocephalic, atraumatic. Pupils equal, round, and reactive to light and accommodation. Extraocular muscles intact. Anicteric sclerae. Moist mucous membranes. NECK: No JVD, no bruit. CARDIOVASCULAR: Regular but distant. Unable to appreciate murmurs, rubs or gallops. PULMONARY: Poor air movement bilaterally but clear. No rales, rhonchi, or wheezing. ABDOMEN: Bowel sounds x4, soft. No rebound, guarding, tenderness. No organomegaly. EXTREMITIES: No clubbing, cyanosis or edema. +2 pedal pulses bilaterally. SKIN: Warm and dry. TEST RESULTS: A 2D echocardiogram performed on 06/27/2017 was read as normal left ventricular chamber size with borderline concentric LVH, normal LV systolic function without regional wall motion abnormality, EF 60-65%, no significant valvular disease, normal left atrial size. A 12-lead EKG performed in the Emergency Department independently reviewed at this time shows atrial flutter with 2:1 block at 143 beats per minute, underlying right bundle branch block, QTC of 533. Repeat EKG today at 13:43 shows normal sinus rhythm, again with underlying right bundle branch block and a QTC of 516 milliseconds. LABORATORY STUDIES OF SIGNIFICANCE: INR of 1.1. Sodium 138, potassium 3.9, BUN 21, and creatinine of 1. IMPRESSION: 1. Symptomatic paroxysmal atrial flutter with 2 episodes occurring approximately 1 week apart. 2. Reactive airway disease. 3. Underlying right bundle branch block pattern on echocardiogram. 4. Diabetes. 5. History of cerebrovascular accident. 6. Obstructive sleep apnea. RECOMMENDATIONS: It was my pleasure to see Mrs. Mercado in reevaluation today. Once again, the pathophysiology and treatment options for atrial flutter were discussed with the patient. She was counseled at this point she definitely needs further treatment for her atrial flutter, given the increasing frequency of her symptoms. However, the fact that her baseline QT is prolonged is somewhat troublesome and may limit our options in terms of antiarrhythmics. So at this point, her amiodarone will be discontinued and like to allow her to wash out from antiarrhythmic for at least 24 hours. We will reevaluate her QT interval in the a.m. and should be below 500 milliseconds. Then will likely start her on sotalol for further atrial arrhythmia suppression. Again, a very close eye will have to be kept on her QT interval and she was counseled that should her QT interval significantly lengthened with the addition of antiarrhythmic therapy then we may have to proceed with atrial flutter ablation instead. The patient states that she understands and agrees that she would like to try the medication first. However, she will be happy to pursue this, the ablation should be deemed necessary. So, she will be continued on her Eliquis currently as well as her metoprolol and again the amiodarone has been stopped.
[2017-07-08] MEDS ORDERED: INSULIN GLARGINE SOLOSTAR 100 UNITS/ML 3 ML PEN SQ SCH (21:00)
[2017-07-08] MEDS: PANTOprazole SOD 40 MG TAB PO SCH (21:11)
[2017-07-08] MEDS: INSULIN GLARGINE SOLOSTAR 100 UNITS/ML 3 ML PEN SQ SCH (21:17)
[2017-07-09] VITALS (9 sets, daily range): BP systolic 108–144; BP diastolic 57–78; PULSE 58–89; TEMP 36–36.7; O2SAT 92–97
[2017-07-09] MEDS: ACETAMINOPHEN 325 MG TAB PO PRN ×3 (01:21→21:36)
[2017-07-09] MEDS: XYZAL~ORDER AWAITING ACTION SCH ×3 (08:00→23:20)
--- NOTE | 2017-07-09 08:55 | Cardiology Follow-Up ---
Subjective Subjective Date of Service: Jul 09, 2017. Pt evaluation today including: conversation w/ patient, physical exam, chart review, lab review, review of studies, review of inpatient medication list Problem List Medical Problems: (1) Atrial flutter with rapid ventricular response Status: Acute (2) Contusion of right shoulder Status: Acute (3) Facial abrasion Status: Acute (4) Hypotension Status: Acute (5) Rapid atrial fibrillation Status: Acute (6) Wound dehiscence Status: Acute Social History Problems: (1) Benign hypertension Status: Chronic (2) Bipolar disorder Status: Chronic Review of Systems Respiratory: + sputum Cardiac: + edema Objective Vital Signs Last Vital Signs Documentation Date Time Temp Pulse Resp B/P (MAP) Pulse Ox O2 Delivery O2 Flow Rate FiO2 07/09/17 07:57 36.5 61 20 144/78 (100) 93 Room Air 07/08/17 00:19 21
[2017-07-09] MEDS: ATORVASTATIN 40 MG TAB PO SCH (09:11)
[2017-07-09] MEDS: MAGNESIUM OXIDE 400 MG TAB PO SCH ×2 (09:11→21:38)
[2017-07-09] MEDS: MONTELUKAST SOD 10 MG TAB PO SCH (09:11)
[2017-07-09] MEDS: FERROUS SULFATE 325 MG TAB PO SCH ×2 (09:12→17:23)
[2017-07-09] MEDS: APIXABAN 2.5 MG TAB PO SCH ×2 (09:12→21:38)
[2017-07-09] MEDS: NEPHROCAPS PO SCH (09:12)
[2017-07-09] MEDS: FLUTICASONE/SALMETEROL (ADVAIR) 500/50 INH 14 PUFF INH SCH ×2 (09:13→21:36)
[2017-07-09] MEDS: TIOTROPIUM BROMIDE 5 PUFF/90 MCG INH INH SCH (09:13)
[2017-07-09] MEDS: NYSTATIN POWDER 15GM BTL EXT SCH ×3 (09:14→21:36)
[2017-07-09] MEDS: NYSTATIN/TRIAMCINOLONE CR 15 GM TUBE EXT SCH ×2 (09:14→21:36)
[2017-07-09] MEDS: INSULIN ASPART 100 UNITS/ML 3 ML PEN SC SCH ×4 (09:16→21:41)
[2017-07-09] MEDS: INSULIN GLARGINE SOLOSTAR 100 UNITS/ML 3 ML PEN SQ SCH ×2 (09:16→21:42)
[2017-07-09] MEDS: SOTALOL HCL 80 MG TAB PO SCH ×2 (09:32→21:38)
--- NOTE | 2017-07-09 17:35 | Progress Note ---
Medicine Progress Note Date & Time of Visit: Jul 09, 2017 at 17:32. Subjective Seen resting in bed comfortable in good spirits States she feels okay overall Denies weakness dizziness chest pain shortness of breath palpitations Cough improving No other symptoms Objective Last 8 Hrs Date Time Temp Pulse Resp B/P (MAP) Pulse Ox O2 Delivery O2 Flow Rate FiO2 07/09/17 15:59 36.6 58 20 108/71 (83) 92 Room Air 07/09/17 12:00 Room Air CPAP 07/09/17 11:37 36.7 69 20 109/57 (74) 97 BiPAP Physical Exam: General- oriented x 3, not in distress, speaks in sentences with no effort Eyes- anicteric Neck- supple, no JVD Lungs- clear breath sounds bilaterally Heart- regular rhythm; no murmur, normal rate Abdomen- normal bowel sounds, soft, nontender Extremities- no pretibial edema, no calf tenderness; peripheral pulses intact Neuro- alert, oriented x 3; no gross focal deficits Skin- warm & dry Laboratory Results: Last 24 Hours Test 07/08/17 20:49 07/09/17 06:35 07/09/17 16:47 Bedside Glucose 182 mg/dl 185 mg/dl 144 mg/dl Assessment & Plan Patient is a 66-year-old female with a past medical history of paroxysmal A. fib, DM II, COPD, history of CVA and other problems mentioned below who presents from respiratory therapy with tachycardia and was found to have A Flutter with RVR. A flutter in RVR -H/o paroxysmal A Fib. Recently seen for A fib with RVR June 26 -Cardio consulted -Was given amiodarone bolus and drip - converted to SR -Now transitioned to sotalol 80 mg twice daily Remains in sinus rhythm rate controlled QT monitoring daily -Continue Eliquis DM II: -Most recent a1c of 7.3 in June 2017 -Hold victoza, metformin, 70/30 insulin while in-patient -Continue Lantus 40U BID with tight correction factor and CHO ratio BSG is within acceptable range Monitor Leukocytosis: -Likely steroid induced; completed taper today -Recent URI, resolving COPD: -At baseline -Recent URI with resolution -No SOB, wheezing -Cont Spiriva, Advair, singulair as scheduled -Xopenex inhaler PRN H/o CVA: -Continue baby aspirin Mood disorder: -Cont Lamictal, Ativan PRN GERD: -Cont PPI DVT Ppx: Eliquis Code status: FULL PCP: Marion Mosley Dispo: Pending Usually lives at home with family Anticipate discharge to home when medically stable, cleared by cardiology Current Inpatient Medications: Current Inpatient Medications Medications (Trade) Dose Ordered Sig/Vu Route Start Time Stop Time Status Last Admin Dose Admin Acetaminophen (Tylenol Tab) 650 mg Q4H PRN PO 07/07/17 18:00 08/06/17 17:59 07/09/17 10:20 650 MG Apixaban (Eliquis Tab) 5 mg BID PO 07/07/17 21:00 08/06/17 20:59 07/09/17 09:12 5 MG Atorvastatin Calcium (Lipitor Tab) 40 mg DAILY PO 07/08/17 09:00 08/07/17 08:59 07/09/17 09:11 40 MG Ferrous Sulfate (Feosol Tab) 325 mg BIDM PO 07/08/17 07:30 08/07/17 07:29 07/09/17 09:12 325 MG Salmeterol Xinafoate/ Fluticasone (Advair Diskus 500/50 Inh) 1 puff BID INH 07/07/17 21:00 08/06/17 20:59 07/09/17 09:13 1 PUFF Lamotrigine (Lamictal Tab) 100 mg HS PO 07/07/17 21:00 08/06/17 20:59 07/08/17 21:09 100 MG Levalbuterol (Xopenex Hfa Inhaler) 2 puffs Q4H PRN INH 07/07/17 20:00 08/06/17 19:59 Montelukast Sodium (Singulair Tab) 10 mg DAILY PO 07/08/17 09:00 08/07/17 08:59 07/09/17 09:11 10 MG Nystatin (Mycostatin Powder) 1 appln TID EXT 07/07/17 21:00 08/06/17 20:59 07/09/17 12:39 1 APPLN Nystatin/ Triamcinolone Acetonide (Mycogen II Crm) 1 appln BID EXT 07/07/17 21:00 08/06/17 20:59 07/09/17 09:14 1 APPLN Pantoprazole Sodium (Protonix Tab) 40 mg HS PO 07/07/17 21:00 08/06/17 20:59 07/08/17 21:11 40 MG Tiotropium [place] (Spiriva Handihaler Inhaler) 1 puff DAILY INH 07/08/17 09:00 08/07/17 08:59 07/09/17 09:13 1 PUFF Vitamin B Complex/ Vit C/Folic Acid (Nephrocaps) 1 cap DAILY PO 07/08/17 09:00 08/07/17 08:59 07/09/17 09:12 1 CAP Miscellaneous Information (Order Awaiting Action) 1 ea QS N/A 07/07/17 19:30 08/06/17 19:29 Magnesium Oxide (Mag-Ox Tab) 400 mg BID PO 07/07/17 21:00 08/06/17 20:59 07/09/17 09:11 400 MG Glucose (Glucose 40% Gel) 15-30 GRAMS 15 GRAMS... UD PRN PO 07/07/17 19:15 08/06/17 19:14 Glucose (Glucose Chew Tab) 4-8 Tablets 4 Tabl... UD PRN PO 07/07/17 19:15 08/06/17 19:14 Dextrose (Dextrose 50% 50ML Syringe) 25-50ML OF 50% DW IV FOR... UD PRN IV 07/07/17 19:15 08/06/17 19:14 Glucagon (Glucagon Inj) 1 mg UD PRN SQ 07/07/17 19:15 08/06/17 19:14 Miscellaneous (Iv Fluids Completed) 1 ea PRN PRN N/A 07/07/17 21:00 07/07/18 20:59 Insulin Aspart (novoLOG ASPART) SLIDING SCALE If C... ACHS SC 07/08/17 11:00 08/06/17 20:59 07/09/17 17:24 11 UNITS Insulin Glargine (Lantus Solostar Pen) 42 units BID SQ 07/08/17 21:00 08/06/17 20:59 07/09/17 09:16 42 UNITS Sotalol HCl (Betapace Tab) 80 mg BID PO 07/09/17 09:00 08/08/17 08:59 07/09/17 09:32 80 MG
[2017-07-09] MEDS: PANTOprazole SOD 40 MG TAB PO SCH (21:37)
[2017-07-10 04:28] VITALS: BP 144/77; PULSE 108; TEMP 36.7; O2SAT 94
[2017-07-10 07:06] LABS: CALCIUM 8.7 mg/dl (8.5-10.1); CREATININE 0.83 mg/dl (0.60-1.20); POTASSIUM 4.1 mmol/L (3.5-5.1)
[2017-07-10 07:22] VITALS: BP 128/90; PULSE 83; TEMP 36.5; O2SAT 92
[2017-07-10] MEDS: XYZAL~ORDER AWAITING ACTION SCH ×2 (08:00→16:00)
[2017-07-10] MEDS: FERROUS SULFATE 325 MG TAB PO SCH ×2 (08:11→17:24)
[2017-07-10] MEDS: INSULIN ASPART 100 UNITS/ML 3 ML PEN SC SCH ×4 (08:17→20:11)
[2017-07-10] MEDS: INSULIN GLARGINE SOLOSTAR 100 UNITS/ML 3 ML PEN SQ SCH ×2 (08:18→20:12)
[2017-07-10] MEDS: FLUTICASONE/SALMETEROL (ADVAIR) 500/50 INH 14 PUFF INH SCH ×2 (08:20→20:04)
[2017-07-10] MEDS: APIXABAN 2.5 MG TAB PO SCH ×2 (08:20→20:04)
[2017-07-10] MEDS: TIOTROPIUM BROMIDE 5 PUFF/90 MCG INH INH SCH (08:20)
[2017-07-10] MEDS: ATORVASTATIN 40 MG TAB PO SCH (08:21)
[2017-07-10] MEDS: MONTELUKAST SOD 10 MG TAB PO SCH (08:21)
[2017-07-10] MEDS: MAGNESIUM OXIDE 400 MG TAB PO SCH ×2 (08:21→20:04)
[2017-07-10] MEDS: SOTALOL HCL 80 MG TAB PO SCH ×2 (08:21→20:04)
[2017-07-10] MEDS: NEPHROCAPS PO SCH (08:22)
[2017-07-10] MEDS: NYSTATIN POWDER 15GM BTL EXT SCH ×3 (08:23→20:05)
[2017-07-10] MEDS: NYSTATIN/TRIAMCINOLONE CR 15 GM TUBE EXT SCH ×2 (08:45→20:05)
[2017-07-10] MEDS ORDERED: DILTIAZEM BOLUS / DRIP IV STA (08:52)
[2017-07-10] MEDS ORDERED: DILTIAZEM HCL INJ 125 MG in DEXTROSE 5% 100ML IV PRN (09:15)
[2017-07-10] MEDS ORDERED: DILTIAZEM HCL 5 MG/ML 5 ML VIAL BOLUS/OMNI IV ONE (09:15)
[2017-07-10 09:45] VITALS: BP 110/64; PULSE 63; O2SAT 93
[2017-07-10 11:33] VITALS: BP 125/71; PULSE 63; TEMP 36.6; O2SAT 93
--- NOTE | 2017-07-10 11:48 | Cardiology Follow-Up ---
Subjective Subjective Date of Service: Jul 10, 2017. Pt evaluation today including: conversation w/ patient, physical exam, chart review, lab review, review of studies, review of inpatient medication list Additional Details: Pt seen and examined, states that she feels well now. Did go into afib with rvr into 130's overnight, symptoms did return; palpitations, lightheadedness and lightheadedness. But received IV cardizem bolus as I ordered and spontaneously converted back to sinus rhythm. No symptom free. Tele reviewed: afib with rvr overnight, now sinus. Problem List Medical Problems: (1) Atrial flutter with rapid ventricular response Status: Acute (2) Contusion of right shoulder Status: Acute (3) Facial abrasion Status: Acute (4) Hypotension Status: Acute (5) Rapid atrial fibrillation Status: Acute (6) Wound dehiscence Status: Acute Social History Problems: (1) Benign hypertension Status: Chronic (2) Bipolar disorder Status: Chronic Review of Systems Respiratory: No see HPI, No cough, No sputum, No wheezing, No shortness of breath, No dyspnea on exertion, No dyspnea at rest, No hemoptysis, No problem reported Cardiac: No see HPI, No chest pain, No orthopnea, No PND, No edema, No claudication, No palpitations, No problem reported Objective Vital Signs Last Vital Signs Documentation Date Time Temp Pulse Resp B/P (MAP) Pulse Ox O2 Delivery O2 Flow Rate FiO2 07/10/17 11:33 36.6 63 20 125/71 (89) 93 Room Air 07/08/17 00:19 21 Physical Exam: General Appearance: WD/WN, no apparent distress Eyes: bilateral eyes normal inspection, bilateral eyes PERRL, bilateral eyes EOMI ENT: normal ENT inspection, hearing grossly normal, pharynx normal Neck: supple, no adenopathy, thyroid normal, no JVD, no carotid bruits, trachea midline Respiratory/Chest: chest non-tender, lungs clear, normal breath sounds, no respiratory distress, no accessory muscle use Cardiovascular: regular rate, rhythm, no edema, no JVD, no murmur, + gallop/S4 Abdomen: normal bowel sounds, non tender, soft, no organomegaly, no pulsatile mass Extremities: normal inspection, no pedal edema, no calf tenderness Neurologic/Psychiatric: inside outside sales representative II-XII nml as tested, no motor/sensory deficits, alert, normal mood/affect, oriented x 3 Skin: normal color, warm/dry, no rash Lymphatic: no adenopathy Assessment and Plan 1. paroxysmal atrial flutter and now fibrillation new onset afib overnight with rvr has been receiving sotalol ordered cardizem bolus and gtt, converted after bolus has now received a total of 3 doses of sotalol and QTc has remained stable cont to monitor on tele cont daily ECG's cont Temiquis
[2017-07-10] MEDS: ACETAMINOPHEN 325 MG TAB PO PRN ×2 (13:59→20:24)
[2017-07-10 15:20] VITALS: BP 111/74; PULSE 66; TEMP 36.7; O2SAT 93
--- NOTE | 2017-07-10 17:44 | Progress Note ---
Medicine Progress Note Date & Time of Visit: Jul 10, 2017 at 17:39. Subjective Overnight the patient developed A. fib with RVR Had to be placed on diltiazem drip Converted to sinus rhythm now off diltiazem drip On exam patient seen resting in bed comfortable, in good denied spirits Denies chest pain shortness of breath dizziness palpitations No other symptoms Objective Last 8 Hrs Date Time Temp Pulse Resp B/P (MAP) Pulse Ox O2 Delivery O2 Flow Rate FiO2 07/10/17 16:00 Room Air CPAP 07/10/17 15:20 36.7 66 18 111/74 (86) 93 BiPAP 07/10/17 12:00 Room Air CPAP 07/10/17 11:33 36.6 63 20 125/71 (89) 93 Room Air 07/10/17 09:45 63 110/64 (79) 93 Room Air Physical Exam: General- oriented x 3, not in distress, speaks in sentences with no effort Eyes- anicteric Neck- no JVD Lungs- clear BS bilaterally, no rales or wheezes Heart- regular rhythm; no murmur, normal rate Abdomen- normal bowel sounds, soft, nontender Extremities- no pretibial edema, no calf tenderness Neuro- alert, oriented x 3; no gross focal deficits Skin- warm & dry Laboratory Results: Last 24 Hours Test 07/09/17 20:33 07/10/17 06:04 07/10/17 07:18 07/10/17 11:21 Bedside Glucose 175 mg/dl 204 mg/dl 263 mg/dl Sodium Level 138 mmol/L Potassium Level 4.1 mmol/L Chloride Level 106 mmol/L Carbon Dioxide Level 24 mmol/L Anion Gap 8.0 mmol/L Blood Urea Nitrogen 11 mg/dl Creatinine 0.83 mg/dl Est Creatinine Clear Calc Drug Dose 94.3 ml/min Estimated GFR () 86.4 Estimated GFR (Non- 74.5 BUN/Creatinine Ratio 13.8 Random Glucose 233 mg/dl Calcium Level 8.7 mg/dl Magnesium Level 2.1 mg/dl Test 07/10/17 16:02 Bedside Glucose 155 mg/dl Assessment & Plan Patient is a 66-year-old female with a past medical history of paroxysmal A. fib, DM II, COPD, history of CVA and other problems mentioned below who presents from respiratory therapy with tachycardia and was found to have A Flutter with RVR. A flutter in RVR -H/o paroxysmal A Fib. Recently seen for A fib with RVR June 26 -Cardio consulted -Was given amiodarone bolus and drip - converted to SR Transition to sotalol 80 mg twice daily 07/10/2017 Patient had an episode of A. fib with RVR Resolved with Cardizem drip Continue sotalol 80 mg twice daily Monitor QT daily Continue Eliquis Appreciate cardiology service recommendations as needed DM II: -Most recent a1c of 7.3 in June 2017 -Hold victoza, metformin, 70/30 insulin while in-patient -Continue Lantus 40U BID with tight correction factor and CHO ratio BSG is within acceptable range Monitor Leukocytosis: -Likely steroid induced; completed taper today -Recent URI, resolving COPD: -At baseline -Recent URI with resolution -No SOB, wheezing -Cont Spiriva, Advair, singulair as scheduled -Xopenex inhaler PRN H/o CVA: -Continue baby aspirin Mood disorder: -Cont Lamictal, Ativan PRN GERD: -Cont PPI DVT Ppx: Eliquis Code status: FULL PCP: Marion Mosley Dispo: Pending Usually lives at home with family Anticipate discharge to home when medically stable, cleared by cardiology Current Inpatient Medications: Current Inpatient Medications Medications (Trade) Dose Ordered Sig/Vu Route Start Time Stop Time Status Last Admin Dose Admin Acetaminophen (Tylenol Tab) 650 mg Q4H PRN PO 07/07/17 18:00 08/06/17 17:59 07/10/17 13:59 650 MG Apixaban (Eliquis Tab) 5 mg BID PO 07/07/17 21:00 08/06/17 20:59 07/10/17 08:20 5 MG Atorvastatin Calcium (Lipitor Tab) 40 mg DAILY PO 07/08/17 09:00 08/07/17 08:59 07/10/17 08:21 40 MG Ferrous Sulfate (Feosol Tab) 325 mg BIDM PO 07/08/17 07:30 08/07/17 07:29 07/09/17 09:12 325 MG Salmeterol Xinafoate/ Fluticasone (Advair Diskus 500/50 Inh) 1 puff BID INH 07/07/17 21:00 08/06/17 20:59 4/6/18 08:20 1 PUFF Lamotrigine (Lamictal Tab) 100 mg HS PO 07/07/17 21:00 08/06/17 20:59 07/08/17 21:09 100 MG Levalbuterol (Xopenex Hfa Inhaler) 2 puffs Q4H PRN INH 07/07/17 20:00 08/06/17 19:59 Montelukast Sodium (Singulair Tab) 10 mg DAILY PO 07/08/17 09:00 08/07/17 08:59 07/10/17 08:21 10 MG Nystatin (Mycostatin Powder) 1 appln TID EXT 07/07/17 21:00 08/06/17 20:59 07/10/17 13:59 1 APPLN Nystatin/ Triamcinolone Acetonide (Mycogen II Crm) 1 appln BID EXT 07/07/17 21:00 08/06/17 20:59 07/10/17 08:45 1 APPLN Pantoprazole Sodium (Protonix Tab) 40 mg HS PO 07/07/17 21:00 08/06/17 20:59 07/09/17 21:37 40 MG Tiotropium [place] (Spiriva Handihaler Inhaler) 1 puff DAILY INH 07/08/17 09:00 08/07/17 08:59 07/10/17 08:20 1 PUFF Vitamin B Complex/ Vit C/Folic Acid (Nephrocaps) 1 cap DAILY PO 07/08/17 09:00 08/07/17 08:59 07/10/17 08:22 1 CAP Miscellaneous Information (Order Awaiting Action) 1 ea QS N/A 07/07/17 19:30 08/06/17 19:29 Magnesium Oxide (Mag-Ox Tab) 400 mg BID PO 07/07/17 21:00 08/06/17 20:59 07/10/17 08:21 400 MG Glucose (Glucose 40% Gel) 15-30 GRAMS 15 GRAMS... UD PRN PO 07/07/17 19:15 08/06/17 19:14 Glucose (Glucose Chew Tab) 4-8 Tablets 4 Tabl... UD PRN PO 07/07/17 19:15 08/06/17 19:14 Dextrose (Dextrose 50% 50ML Syringe) 25-50ML OF 50% DW IV FOR... UD PRN IV 07/07/17 19:15 08/06/17 19:14 Glucagon (Glucagon Inj) 1 mg UD PRN SQ 07/07/17 19:15 08/06/17 19:14 Miscellaneous (Iv Fluids Completed) 1 ea PRN PRN N/A 07/07/17 21:00 07/07/18 20:59 Insulin Aspart (novoLOG ASPART) SLIDING SCALE If C... ACHS SC 07/08/17 11:00 08/06/17 20:59 07/10/17 17:28 12 UNITS Insulin Glargine (Lantus Solostar Pen) 42 units BID SQ 07/08/17 21:00 08/06/17 20:59 07/10/17 08:18 42 UNITS Sotalol HCl (Betapace Tab) 80 mg BID PO 07/09/17 09:00 08/08/17 08:59 07/10/17 08:21 80 MG
[2017-07-10 19:13] VITALS: BP 128/79; PULSE 67; TEMP 36.3; O2SAT 92
[2017-07-10] MEDS: PANTOprazole SOD 40 MG TAB PO SCH (20:05)
[2017-07-11] VITALS (8 sets, daily range): BP systolic 104–166; BP diastolic 63–97; PULSE 60–111; TEMP 36.3–37; O2SAT 92–94
[2017-07-11] MEDS: ACETAMINOPHEN 325 MG TAB PO PRN ×3 (01:44→23:22)
[2017-07-11] MEDS: FERROUS SULFATE 325 MG TAB PO SCH ×2 (07:30→16:45)
[2017-07-11] MEDS: INSULIN ASPART 100 UNITS/ML 3 ML PEN SC SCH ×4 (07:49→20:27)
[2017-07-11] MEDS: INSULIN GLARGINE SOLOSTAR 100 UNITS/ML 3 ML PEN SQ SCH ×2 (07:50→20:28)
[2017-07-11] MEDS: XYZAL~ORDER AWAITING ACTION SCH ×3 (07:52→15:56)
[2017-07-11] MEDS: NYSTATIN POWDER 15GM BTL EXT SCH ×3 (09:29→20:22)
[2017-07-11] MEDS: NYSTATIN/TRIAMCINOLONE CR 15 GM TUBE EXT SCH ×2 (09:29→20:23)
[2017-07-11] MEDS: FLUTICASONE/SALMETEROL (ADVAIR) 500/50 INH 14 PUFF INH SCH ×2 (09:29→20:24)
[2017-07-11] MEDS: MONTELUKAST SOD 10 MG TAB PO SCH (09:30)
[2017-07-11] MEDS: TIOTROPIUM BROMIDE 5 PUFF/90 MCG INH INH SCH (09:30)
[2017-07-11] MEDS: ATORVASTATIN 40 MG TAB PO SCH (09:30)
[2017-07-11] MEDS: SOTALOL HCL 80 MG TAB PO SCH ×2 (09:30→20:22)
[2017-07-11] MEDS: MAGNESIUM OXIDE 400 MG TAB PO SCH ×2 (09:30→20:22)
[2017-07-11] MEDS: APIXABAN 2.5 MG TAB PO SCH ×2 (09:30→20:23)
[2017-07-11] MEDS: NEPHROCAPS PO SCH (09:31)
--- NOTE | 2017-07-11 11:19 | Cardiology Follow-Up ---
Subjective Subjective Date of Service: Jul 11, 2017. Pt evaluation today including: conversation w/ patient, physical exam, chart review, lab review, review of inpatient medication list Additional Details: This is a 66-year-old female with paroxysmal atrial fibrillation who was started on sotalol. She has no new complaints today. Her EKG however, indicates her QTC to be over 500 which is of concern. Her atrial arrhythmias have been stable and she has no evidence of ventricular ectopy. I will continue the sotalol but will reduce the dose to 40 mg twice daily. Problem List Medical Problems: (1) Atrial flutter with rapid ventricular response Status: Acute (2) Contusion of right shoulder Status: Acute (3) Facial abrasion Status: Acute (4) Hypotension Status: Acute (5) Rapid atrial fibrillation Status: Acute (6) Wound dehiscence Status: Acute Social History Problems: (1) Benign hypertension Status: Chronic (2) Bipolar disorder Status: Chronic Review of Systems Respiratory: No see HPI, No cough, No sputum, No wheezing, No shortness of breath, No dyspnea on exertion, No dyspnea at rest, No hemoptysis, No problem reported Cardiac: No see HPI, No chest pain, No orthopnea, No PND, No edema, No claudication, No palpitations, No problem reported Objective Vital Signs Last Vital Signs Documentation Date Time Temp Pulse Resp B/P (MAP) Pulse Ox O2 Delivery O2 Flow Rate FiO2 07/11/17 08:00 Room Air 07/11/17 07:00 36.5 70 18 166/93 (117) 93 07/08/17 00:19 21 Physical Exam: General Appearance: WD/WN, no apparent distress Eyes: bilateral eyes normal inspection, bilateral eyes PERRL, bilateral eyes EOMI ENT: normal ENT inspection, hearing grossly normal, pharynx normal Neck: supple, no adenopathy, thyroid normal, no JVD, no carotid bruits, trachea midline Respiratory/Chest: chest non-tender, lungs clear, normal breath sounds, no respiratory distress, no accessory muscle use Cardiovascular: regular rate, rhythm, no edema, no JVD, no murmur, + gallop/S4 Abdomen: normal bowel sounds, non tender, soft, no organomegaly, no pulsatile mass Extremities: normal inspection, no pedal edema, no calf tenderness Neurologic/Psychiatric: 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 The QTc has started to length and be on 500 and I have lowered her dose of sotalol to 40 mg twice daily. We will continue to monitor her and obtain an EKG in the morning. Medications: Current Inpatient Medications Medications (Trade) Dose Ordered Sig/Vu Route Start Time Stop Time Status Last Admin Dose Admin Acetaminophen (Tylenol Tab) 650 mg Q4H PRN PO 07/07/17 18:00 08/06/17 17:59 07/11/17 09:41 650 MG Apixaban (Eliquis Tab) 5 mg BID PO 07/07/17 21:00 08/06/17 20:59 07/11/17 09:30 5 MG Atorvastatin Calcium (Lipitor Tab) 40 mg DAILY PO 07/08/17 09:00 08/07/17 08:59 07/11/17 09:30 40 MG Ferrous Sulfate (Feosol Tab) 325 mg BIDM PO 07/08/17 07:30 08/07/17 07:29 07/09/17 09:12 325 MG Salmeterol Xinafoate/ Fluticasone (Advair Diskus 500/50 Inh) 1 puff BID INH 07/07/17 21:00 08/06/17 20:59 07/11/17 09:29 1 PUFF Lamotrigine (Lamictal Tab) 100 mg HS PO 07/07/17 21:00 08/06/17 20:59 07/08/17 21:09 100 MG Levalbuterol (Xopenex Hfa Inhaler) 2 puffs Q4H PRN INH 07/07/17 20:00 08/06/17 19:59 Montelukast Sodium (Singulair Tab) 10 mg DAILY PO 07/08/17 09:00 08/07/17 08:59 07/11/17 09:30 10 MG Nystatin (Mycostatin Powder) 1 appln TID EXT 07/07/17 21:00 08/06/17 20:59 07/11/17 09:29 1 APPLN Nystatin/ Triamcinolone Acetonide (Mycogen II Crm) 1 appln BID EXT 07/07/17 21:00 08/06/17 20:59 07/11/17 09:29 1 APPLN Pantoprazole Sodium (Protonix Tab) 40 mg HS PO 07/07/17 21:00 08/06/17 20:59 07/10/17 20:05 40 MG Tiotropium [place] (Spiriva Handihaler Inhaler) 1 puff DAILY INH 07/08/17 09:00 08/07/17 08:59 07/11/17 09:30 1 PUFF Vitamin B Complex/ Vit C/Folic Acid (Nephrocaps) 1 cap DAILY PO 07/08/17 09:00 08/07/17 08:59 07/11/17 09:31 1 CAP Miscellaneous Information (Order Awaiting Action) 1 ea QS N/A 07/07/17 19:30 08/06/17 19:29 Magnesium Oxide (Mag-Ox Tab) 400 mg BID PO 07/07/17 21:00 08/06/17 20:59 07/11/17 09:30 400 MG Glucose (Glucose 40% Gel) 15-30 GRAMS 15 GRAMS... UD PRN PO 07/07/17 19:15 08/06/17 19:14 Glucose (Glucose Chew Tab) 4-8 Tablets 4 Tabl... UD PRN PO 07/07/17 19:15 08/06/17 19:14 Dextrose (Dextrose 50% 50ML Syringe) 25-50ML OF 50% DW IV FOR... UD PRN IV 07/07/17 19:15 08/06/17 19:14 Glucagon (Glucagon Inj) 1 mg UD PRN SQ 07/07/17 19:15 08/06/17 19:14 Miscellaneous (Iv Fluids Completed) 1 ea PRN PRN N/A 07/07/17 21:00 07/07/18 20:59 Insulin Aspart (novoLOG ASPART) SLIDING SCALE If C... ACHS SC 07/08/17 11:00 08/06/17 20:59 07/11/17 07:49 13 UNITS Insulin Glargine (Lantus Solostar Pen) 42 units BID SQ 07/08/17 21:00 08/06/17 20:59 07/11/17 07:50 42 UNITS Sotalol HCl (Betapace Tab) 80 mg BID PO 07/09/17 09:00 08/08/17 08:59 07/11/17 09:30 80 MG Lab Results: Last 24 Hours Test 07/10/17 11:21 07/10/17 16:02 07/10/17 20:07 07/11/17 06:11 Bedside Glucose 263 mg/dl 155 mg/dl 203 mg/dl 173 mg/dl
[2017-07-11] MEDS ORDERED: IPRATROPIUM BROMIDE NEB SOLN 0.02% 2.5 ML VIAL INH STA (14:24)
[2017-07-11] MEDS ORDERED: LEVALBUTEROL 0.63MG/3 ML NEB INH STA (14:24)
[2017-07-11] MEDS ORDERED: LEVALBUTEROL 0.63MG/3 ML NEB INH PRN (14:30)
[2017-07-11] MEDS ORDERED: IPRATROPIUM BROMIDE NEB SOLN 0.02% 2.5 ML VIAL INH PRN (14:30)
--- NOTE | 2017-07-11 14:59 | Progress Note ---
Medicine Progress Note Date & Time of Visit: Jul 11, 2017 at 14:55. Subjective Sitting up in bed, comfortable, good spirits QT noted to be prolonged at 518 Denies chest pain shortness of breath palpitations dizziness Has cough productive of yellow sputum Denies fevers chills, shortness of breath No other symptoms Objective Last 8 Hrs Date Time Temp Pulse Resp B/P (MAP) Pulse Ox O2 Delivery O2 Flow Rate FiO2 07/11/17 12:00 Room Air 07/11/17 11:23 36.9 68 22 149/74 (99) 92 Room Air 07/11/17 08:00 Room Air 07/11/17 07:00 36.5 70 18 166/93 (117) 93 Room Air Physical Exam: General- oriented x 3, not in distress, speaks in sentences with no effort Eyes- anicteric Neck- no JVD Lungs-scattered mild rales/wheezes bilaterally, good air entry Heart- regular rhythm; no murmur, normal rate Abdomen- normal bowel sounds, soft, nontender Extremities- no pretibial edema, no calf tenderness Neuro- alert, oriented x 3; no gross focal deficits Skin- warm & dry Laboratory Results: Last 24 Hours Test 07/10/17 16:02 07/10/17 20:07 07/11/17 06:11 07/11/17 11:21 Bedside Glucose 155 mg/dl 203 mg/dl 173 mg/dl 210 mg/dl Assessment & Plan Patient is a 66-year-old female with a past medical history of paroxysmal A. fib, DM II, COPD, history of CVA and other problems mentioned below who presents from respiratory therapy with tachycardia and was found to have A Flutter with RVR. A flutter in RVR -H/o paroxysmal A Fib. Recently seen for A fib with RVR June 26 -Cardio consulted -Was given amiodarone bolus and drip - converted to SR Transition to sotalol 80 mg twice daily 07/10/2017 Patient had an episode of A. fib with RVR Resolved with Cardizem drip 07/11/2017 QT prolonged to 518 Sotalol reduced to 40 mg twice daily Monitor QT daily Continue Eliquis Appreciate cardiology service recommendations Cough, possible acute bronchitis rule out pneumonia Check chest x-ray 2 views Start nebulizer treatments Start doxycycline 100 mg twice daily Monitor DM II: -Most recent a1c of 7.3 in June 2017 -Hold victoza, metformin, 70/30 insulin while in-patient -Continue Lantus 40U BID with tight correction factor and CHO ratio BSG reaching 200s We will consult pharmacy glycemic control COPD: -At baseline Management of acute bronchitis as noted above Does not seem to be in COPD exacerbation But will closely monitor -Cont Spiriva, Advair, singulair as scheduled -Xopenex inhaler PRN H/o CVA: -Continue baby aspirin Mood disorder: -Cont Lamictal, Ativan PRN GERD: -Cont PPI DVT Ppx: Eliquis Code status: FULL PCP: Marion Mosley Dispo: Pending Usually lives at home with family Anticipate discharge to home when medically stable, cleared by cardiology Current Inpatient Medications: Current Inpatient Medications Medications (Trade) Dose Ordered Sig/Vu Route Start Time Stop Time Status Last Admin Dose Admin Acetaminophen (Tylenol Tab) 650 mg Q4H PRN PO 07/07/17 18:00 08/06/17 17:59 07/11/17 09:41 650 MG Apixaban (Eliquis Tab) 5 mg BID PO 07/07/17 21:00 08/06/17 20:59 07/11/17 09:30 5 MG Atorvastatin Calcium (Lipitor Tab) 40 mg DAILY PO 07/08/17 09:00 08/07/17 08:59 07/11/17 09:30 40 MG Ferrous Sulfate (Feosol Tab) 325 mg BIDM PO 07/08/17 07:30 08/07/17 07:29 07/09/17 09:12 325 MG Salmeterol Xinafoate/ Fluticasone (Advair Diskus 500/50 Inh) 1 puff BID INH 07/07/17 21:00 08/06/17 20:59 07/11/17 09:29 1 PUFF Lamotrigine (Lamictal Tab) 100 mg HS PO 07/07/17 21:00 08/06/17 20:59 07/08/17 21:09 100 MG Montelukast Sodium (Singulair Tab) 10 mg DAILY PO 07/08/17 09:00 08/07/17 08:59 07/11/17 09:30 10 MG Nystatin (Mycostatin Powder) 1 appln TID EXT 07/07/17 21:00 08/06/17 20:59 07/11/17 14:32 1 APPLN Nystatin/ Triamcinolone Acetonide (Mycogen II Crm) 1 appln BID EXT 07/07/17 21:00 08/06/17 20:59 07/11/17 09:29 1 APPLN Pantoprazole Sodium (Protonix Tab) 40 mg HS PO 07/07/17 21:00 08/06/17 20:59 07/10/17 20:05 40 MG Tiotropium [place] (Spiriva Handihaler Inhaler) 1 puff DAILY INH 07/08/17 09:00 08/07/17 08:59 07/11/17 09:30 1 PUFF Vitamin B Complex/ Vit C/Folic Acid (Nephrocaps) 1 cap DAILY PO 07/08/17 09:00 08/07/17 08:59 07/11/17 09:31 1 CAP Miscellaneous Information (Order Awaiting Action) 1 ea QS N/A 07/07/17 19:30 08/06/17 19:29 Magnesium Oxide (Mag-Ox Tab) 400 mg BID PO 07/07/17 21:00 08/06/17 20:59 07/11/17 09:30 400 MG Glucose (Glucose 40% Gel) 15-30 GRAMS 15 GRAMS... UD PRN PO 07/07/17 19:15 08/06/17 19:14 Glucose (Glucose Chew Tab) 4-8 Tablets 4 Tabl... UD PRN PO 07/07/17 19:15 08/06/17 19:14 Dextrose (Dextrose 50% 50ML Syringe) 25-50ML OF 50% DW IV FOR... UD PRN IV 07/07/17 19:15 08/06/17 19:14 Glucagon (Glucagon Inj) 1 mg UD PRN SQ 07/07/17 19:15 08/06/17 19:14 Miscellaneous (Iv Fluids Completed) 1 ea PRN PRN N/A 07/07/17 21:00 07/07/18 20:59 Insulin Aspart (novoLOG ASPART) SLIDING SCALE If C... ACHS SC 07/08/17 11:00 08/06/17 20:59 07/11/17 12:10 12 UNITS Insulin Glargine (Lantus Solostar Pen) 42 units BID SQ 07/08/17 21:00 08/06/17 20:59 07/11/17 07:50 42 UNITS Sotalol HCl (Betapace Tab) 40 mg BID PO 07/11/17 21:00 08/08/17 08:59 Levalbuterol (Xopenex 0.63 Mg/ 3 Ml Neb) 0.63 mg Q4H PRN INH 07/11/17 14:30 08/10/17 14:29 Ipratropium [place] (Atrovent 0.02% 0.5MG/2.5ML Neb) 0.5 mg Q4H PRN INH 07/11/17 14:30 08/10/17 14:29 Doxycycline Hyclate (Vibramycin Cap) 100 mg BID PO 07/11/17 14:45 07/18/17 14:44
[2017-07-11] MEDS ORDERED: PHARMACY GLYCEMIC MGMT CONSULT PRN (15:01)
[2017-07-11] MEDS: DOXYCYCLINE HYCLATE 100 MG CAP PO SCH ×2 (15:22→20:22)
--- NOTE | 2017-07-11 15:35 | Pharmacy Progress Note ---
Glycemic Control Intl Consult Date of Service Jul 11, 2017. Scope Glycemic Pharmacist consulted by Dr Apple on 07/11/17 for glycemic control and to write orders per [facility] inpatient glycemic control protocol Objective Weight (Kilograms): 131.400 Accuchecks BSG (last 24hrs): Test 07/10/17 16:02 07/10/17 20:07 07/11/17 06:11 07/11/17 11:21 Bedside Glucose 155 mg/dl (70-90) 203 mg/dl (70-90) 173 mg/dl (70-90) 210 mg/dl (70-90) Recent Pertinent Medications Outpatient Anti-diabetic Regimen: * Basaglar 40 units BID + Humulin 70/30 ... 45 units in the morning and 40 units in the PM (CONFIRMED WITH PATIENT AND [employer]SCRIPTS) plus Victozia * A1c = 7.3 % 06/27/17 The patient is currently receiving: * Basal insulin: Lantus 42 units every 12 hours * Correctional Insulin: Novolog Correction per scale ACHS Goal Range: Low 110 mg/dL - High 140 mg/dL Correction Factor: 25 mg/dL/unit * Prandial insulin: Per carb ratio of 1 unit per 5 grams CHO consumed Risk Factors for Insulin Resistance: * Diet: type 2 diabetes Assessment & Plan ASSESSMENT: * Mr Mercado is a 66 y/o F with a PMH of Afib, COPD, CVA, and very well controlled type 2 diabetes who presented with SOB from possible bronchitis and AFib with RVR. Patient remains hospitalized for initiation of sotalol. I spoke with the patient today who confirmed the use of basaglar and Humulin 70/30. This equates to 165 units of insulin per day (I estimated that patient would need around 150 units/day) with 140 units of basal insulin. Since the patient has already been started on a more 50/50 split of insulin will continue Lantus dose of 42 units. Tighten Novolog to CF of 10 and CR of 3 which is what is recommended for TDD of 150 units/day. Added an overnight check to see how patient trends overnight for one night. * Reduce goal range to 110-140 mg/dL. PLAN FOR INPATIENT GLYCEMIC CONTROL: * Basal insulin with LANTUS 42 units SQ BID * Correctional Insulin with NOVOLOG per scale ACHS or Q6hrs while NPO * Goal Range: Low 110 mg/dL - High 140 mg/dL * Correction Factor: 25 mg/dL/unit * Nutritional / Prandial insulin per carb ratio of 1 unit per 5 grams CHO consumed OUTPATIENT RECOMMENDATIONS * Patient is well controlled as an outpatient continue current regimen. Thank you.
--- NOTE | 2017-07-11 19:36 | DIAGNOSTIC IMAGING REPORT ---
CHEST ONE VIEW PORTABLE CLINICAL HISTORY: 66 years-old Female presenting with r/o pneumonia. TECHNIQUE: Portable upright AP view of the chest was obtained. COMPARISON: 07/07/2017. FINDINGS: Atherosclerosis of aortic arch. Cardiac silhouette mildly enlarged. Pulmonary vascular prominence. Mildly low lung volumes. Minimal linear and nodular opacities at the lung bases similar to prior exam. No large pleural effusion or pneumothorax. Osseous structures normal. External leads degrade evaluation of the right upper quadrant. IMPRESSION: 1. Mildly low lung volumes with unchanged bibasilar opacities, presumably atelectasis. An infectious process is felt to be less likely, however, aspiration cannot be excluded. 2. Mild cardiomegaly with mild volume overload. Electronically signed by: Cheng Zee M.D. 07/11/2017 7:34 PM Dictated Date/Time: 07/11/2017 7:33 PM
[2017-07-11] MEDS: PANTOprazole SOD 40 MG TAB PO SCH (20:22)
[2017-07-12] VITALS (8 sets, daily range): BP systolic 116–130; BP diastolic 73–89; PULSE 64–105; TEMP 36.2–36.8; O2SAT 91–98
[2017-07-12] MEDS ORDERED: INSULIN ASPART 100 UNITS/ML 3 ML PEN SC SCH (02:00)
[2017-07-12] MEDS: FERROUS SULFATE 325 MG TAB PO SCH ×2 (07:30→16:45)
[2017-07-12] MEDS: XYZAL~ORDER AWAITING ACTION SCH ×3 (08:00→16:00)
--- NOTE | 2017-07-12 09:22 | Progress Note ---
Medicine Progress Note Date & Time of Visit: Jul 12, 2017 at 09:22. Subjective Sitting up in bed comfortable, in good spirits States she feels improved today Less chest congestion, coughing no chest pain, shortness of breath, palpitations , dizziness No other symptoms Objective Last 8 Hrs Date Time Temp Pulse Resp B/P (MAP) Pulse Ox O2 Delivery O2 Flow Rate FiO2 07/12/17 08:14 36.4 79 20 116/77 (90) 92 Room Air 07/12/17 04:00 Nasal Cannula 2.0 07/12/17 02:48 36.5 105 20 124/89 (101) 92 Room Air Physical Exam: General- oriented x 3, not in distress, speaks in sentences with no effort Eyes- anicteric Neck- no JVD Lungs-scattered rales bilateral bases no wheezing, good air entry bilaterally Heart- regular rhythm; no murmur, normal rate Abdomen- normal bowel sounds, soft, nontender Extremities- no pretibial edema, no calf tenderness Neuro- alert, oriented x 3; no gross focal deficits Skin- warm & dry Laboratory Results: Last 24 Hours Test 07/11/17 11:21 07/11/17 16:15 07/11/17 20:24 07/12/17 02:17 Bedside Glucose 210 mg/dl 203 mg/dl 158 mg/dl 294 mg/dl Test 07/12/17 06:25 Bedside Glucose 292 mg/dl Assessment & Plan Patient is a 66-year-old female with a past medical history of paroxysmal A. fib, DM II, COPD, history of CVA and other problems mentioned below who presents from respiratory therapy with tachycardia and was found to have A Flutter with RVR. A flutter in RVR -H/o paroxysmal A Fib. Recently seen for A fib with RVR June 26 -Cardio consulted -Was given amiodarone bolus and drip - converted to SR Transition to sotalol 80 mg twice daily 07/10/2017 Patient had an episode of A. fib with RVR Resolved with Cardizem drip 07/11/2017 QT prolonged to 518 Sotalol reduced to 40 mg twice daily Positive episode of A. fib heart rate 110s 07/12/2017 QT less than 500 Continue sotalol 40 mg twice daily Cardizem 3 times daily started Continue to monitor QT daily continue Eliquis Appreciate cardiology recommendations Cough, possible acute bronchitis rule out pneumonia Chest x-ray: No signs of pulmonary congestion Prednisone 40 mg p.o. daily started, improving Nebs every 6 hours doxycycline 100 mg twice daily day #2 Monitor DM II: -Most recent a1c of 7.3 in June 2017 -Hold victoza, metformin, 70/30 insulin while in-patient -Lantus and insulin sliding scale Appreciate pharmacy glycemic control recommendations COPD, possible mild exacerbation secondary to bronchitis -At baseline Management of acute bronchitis as noted above We will closely monitor -Cont Spiriva, Advair, singulair as scheduled -Xopenex inhaler PRN H/o CVA: -Continue baby aspirin Mood disorder: -Cont Lamictal, Ativan PRN GERD: -Cont PPI DVT Ppx: Eliquis Code status: FULL PCP: Marion Mosley Dispo: Pending Usually lives at home with family Anticipate discharge to home when medically stable, cleared by cardiology Current Inpatient Medications: Current Inpatient Medications Medications (Trade) Dose Ordered Sig/Vu Route Start Time Stop Time Status Last Admin Dose Admin Acetaminophen (Tylenol Tab) 650 mg Q4H PRN PO 07/07/17 18:00 08/06/17 17:59 07/11/17 23:22 650 MG Apixaban (Eliquis Tab) 5 mg BID PO 07/07/17 21:00 08/06/17 20:59 07/11/17 20:23 5 MG Atorvastatin Calcium (Lipitor Tab) 40 mg DAILY PO 07/08/17 09:00 08/07/17 08:59 07/11/17 09:30 40 MG Ferrous Sulfate (Feosol Tab) 325 mg BIDM PO 07/08/17 07:30 08/07/17 07:29 07/09/17 09:12 325 MG Salmeterol Xinafoate/ Fluticasone (Advair Diskus 500/50 Inh) 1 puff BID INH 07/07/17 21:00 08/06/17 20:59 07/11/17 20:24 1 PUFF Lamotrigine (Lamictal Tab) 100 mg HS PO 07/07/17 21:00 08/06/17 20:59 07/08/17 21:09 100 MG Montelukast Sodium (Singulair Tab) 10 mg DAILY PO 07/08/17 09:00 08/07/17 08:59 07/11/17 09:30 10 MG Nystatin (Mycostatin Powder) 1 appln TID EXT 07/07/17 21:00 08/06/17 20:59 07/11/17 20:22 1 APPLN Nystatin/ Triamcinolone Acetonide (Mycogen II Crm) 1 appln BID EXT 07/07/17 21:00 08/06/17 20:59 07/11/17 20:23 1 APPLN Pantoprazole Sodium (Protonix Tab) 40 mg HS PO 07/07/17 21:00 08/06/17 20:59 07/11/17 20:22 40 MG Tiotropium [place] (Spiriva Handihaler Inhaler) 1 puff DAILY INH 07/08/17 09:00 08/07/17 08:59 07/11/17 09:30 1 PUFF Vitamin B Complex/ Vit C/Folic Acid (Nephrocaps) 1 cap DAILY PO 07/08/17 09:00 08/07/17 08:59 07/11/17 09:31 1 CAP Miscellaneous Information (Order Awaiting Action) 1 ea QS N/A 07/07/17 19:30 08/06/17 19:29 Magnesium Oxide (Mag-Ox Tab) 400 mg BID PO 07/07/17 21:00 08/06/17 20:59 07/11/17 20:22 400 MG Glucose (Glucose 40% Gel) 15-30 GRAMS 15 GRAMS... UD PRN PO 07/07/17 19:15 08/06/17 19:14 Glucose (Glucose Chew Tab) 4-8 Tablets 4 Tabl... UD PRN PO 07/07/17 19:15 08/06/17 19:14 Dextrose (Dextrose 50% 50ML Syringe) 25-50ML OF 50% DW IV FOR... UD PRN IV 07/07/17 19:15 08/06/17 19:14 Glucagon (Glucagon Inj) 1 mg UD PRN SQ 07/07/17 19:15 08/06/17 19:14 Miscellaneous (Iv Fluids Completed) 1 ea PRN PRN N/A 07/07/17 21:00 07/07/18 20:59 Insulin Aspart (novoLOG ASPART) SLIDING SCALE If C... ACHS SC 07/08/17 11:00 08/06/17 20:59 07/11/17 20:27 2 UNITS Insulin Glargine (Lantus Solostar Pen) 42 units BID SQ 07/08/17 21:00 08/06/17 20:59 07/11/17 20:28 42 UNITS Sotalol HCl (Betapace Tab) 40 mg BID PO 07/11/17 21:00 08/08/17 08:59 07/11/17 20:22 40 MG Levalbuterol (Xopenex 0.63 Mg/ 3 Ml Neb) 0.63 mg Q4H PRN INH 07/11/17 14:30 08/10/17 14:29 Ipratropium [place] (Atrovent 0.02% 0.5MG/2.5ML Neb) 0.5 mg Q4H PRN INH 07/11/17 14:30 08/10/17 14:29 Doxycycline Hyclate (Vibramycin Cap) 100 mg BID PO 07/11/17 14:45 07/18/17 14:44 07/11/17 20:22 100 MG Miscellaneous Information (Consult Glycemic Management Pharmacy) 1 ea UD PRN N/A 07/11/17 15:01 08/10/17 15:00
[2017-07-12] MEDS: TIOTROPIUM BROMIDE 5 PUFF/90 MCG INH INH SCH (09:29)
[2017-07-12] MEDS: FLUTICASONE/SALMETEROL (ADVAIR) 500/50 INH 14 PUFF INH SCH ×2 (09:29→20:42)
[2017-07-12] MEDS: MAGNESIUM OXIDE 400 MG TAB PO SCH ×2 (09:30→20:46)
[2017-07-12] MEDS: MONTELUKAST SOD 10 MG TAB PO SCH (09:30)
[2017-07-12] MEDS: APIXABAN 2.5 MG TAB PO SCH ×2 (09:30→20:47)
[2017-07-12] MEDS: NEPHROCAPS PO SCH (09:30)
[2017-07-12] MEDS ORDERED: LORAZEPAM 0.5 MG TAB PO PRN (09:30)
[2017-07-12] MEDS: DOXYCYCLINE HYCLATE 100 MG CAP PO SCH ×2 (09:31→20:44)
[2017-07-12] MEDS: SOTALOL HCL 80 MG TAB PO SCH ×2 (09:31→20:45)
[2017-07-12] MEDS: ATORVASTATIN 40 MG TAB PO SCH (09:31)
[2017-07-12] MEDS: NYSTATIN/TRIAMCINOLONE CR 15 GM TUBE EXT SCH ×2 (09:32→20:43)
[2017-07-12] MEDS: NYSTATIN POWDER 15GM BTL EXT SCH ×3 (09:32→20:43)
[2017-07-12] MEDS: INSULIN ASPART 100 UNITS/ML 3 ML PEN SC SCH ×4 (09:35→20:56)
[2017-07-12] MEDS: INSULIN GLARGINE SOLOSTAR 100 UNITS/ML 3 ML PEN SQ SCH ×2 (09:36→20:57)
[2017-07-12] MEDS ORDERED: ACETYLCYSTEINE 20% INHAL SOLN ***DISPENSED BY RESP. INH ONE (10:00)
--- NOTE | 2017-07-12 11:07 | Pharmacy Progress Note ---
Pharmacy Glycemic Short Note 2 Date of Service Jul 12, 2017. OUTPATIENT ANTIDIABETIC REGIMEN: * Basaglar 40 units BID + Humulin 70/30 ... 45 units in the morning and 40 units in the PM (CONFIRMED WITH PATIENT AND ALLSCRIPTS) plus Victonicka ASSESSMENT: * Mr Mercado is a 66 y/o F with a PMH of Afib, COPD, CVA, and very well controlled type 2 diabetes who presented with SOB from possible bronchitis and AFib with RVR. Patient remains hospitalized for initiation of sotalol. I spoke with the patient yesterday who confirmed the use of basaglar and Humulin 70/30. This equates to 165 units of insulin per day (I estimated that patient would need around 150 units/day) with 140 units of basal insulin. Since the patient has already been started on a more 50/50 split of insulin will continue Lantus dose of 42 units. Reduce goal range to 110-140 mg/dL. * Patient received a dose of prednisone 40 mg yesterday around 2000 and today around 1000. Patient's blood sugar was 173-210 (pharmacy consulted here)- 203- 158. Check at 0200 was 294 (this was after prednisone) and patient received 16 units of insulin. Fasting was 292 mg/dL. Did not tighten Novolog for breakfast as this was already 12 hours after prednisone so effects should be dissimilating. Lantus was not increased as want to use Novolog to achieve desired blood sugars with steroids. * With additional dose of prednisone today, give NPH 0.4 units/kg or 50 units with lunch so that NPH peaks with prednisone tonight. Tighten Novolog with lunch as blood sugar trended upwards. PLAN FOR INPATIENT GLYCEMIC CONTROL: * Basal insulin * Lantus 42 units SQ BID * Bolus insulin * NovoLog per scale ACHS or Q6hrs while NPO * Goal Range: Low 110 mg/dL - High 140 mg/dL * Correction Factor: 9 mg/dL/unit * Nutritional / Prandial insulin per carb ratio of 1 unit per 2 grams CHO consumed PLAN FOR DISCHARGE: * Patient is well controlled on regimen. Follow-up with provider.
--- NOTE | 2017-07-12 11:25 | Cardiology Follow-Up ---
Subjective Subjective Date of Service: Jul 12, 2017. Pt evaluation today including: conversation w/ patient, physical exam, chart review, lab review, review of inpatient medication list Additional Details: The patient had atrial fibrillation which started late yesterday afternoon and continue to 4 AM this morning. She is currently in a sinus rhythm. I have lowered her sotalol starting last evening to 40 mg twice daily due to prolonged QT interval. The QT interval has improved with this morning's EKG. Patient currently has no complaints. Problem List Medical Problems: (1) Atrial flutter with rapid ventricular response Status: Acute (2) Contusion of right shoulder Status: Acute (3) Facial abrasion Status: Acute (4) Hypotension Status: Acute (5) Rapid atrial fibrillation Status: Acute (6) Wound dehiscence Status: Acute Social History Problems: (1) Benign hypertension Status: Chronic (2) Bipolar disorder Status: Chronic Review of Systems Respiratory: No see HPI, No cough, No sputum, No wheezing, No shortness of breath, No dyspnea on exertion, No dyspnea at rest, No hemoptysis, No problem reported Cardiac: No see HPI, No chest pain, No orthopnea, No PND, No edema, No claudication, No palpitations, No problem reported Objective Vital Signs Last Vital Signs Documentation Date Time Temp Pulse Resp B/P (MAP) Pulse Ox O2 Delivery O2 Flow Rate FiO2 07/12/17 11:05 75 18 97 Room Air 07/12/17 08:14 36.4 116/77 (90) 07/12/17 08:00 2.0 07/08/17 00:19 21 Physical Exam: General Appearance: WD/WN, no apparent distress Eyes: bilateral eyes normal inspection, bilateral eyes PERRL, bilateral eyes EOMI ENT: normal ENT inspection, hearing grossly normal, pharynx normal Neck: supple, no adenopathy, thyroid normal, no JVD, no carotid bruits, trachea midline Respiratory/Chest: chest non-tender, lungs clear, normal breath sounds, no respiratory distress, no accessory muscle use Cardiovascular: regular rate, rhythm, no edema, no JVD, no murmur, + gallop/S4 Abdomen: normal bowel sounds, non tender, soft, no organomegaly, no pulsatile mass Extremities: normal inspection, no pedal edema, no calf tenderness 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 The patient is currently receiving sotalol 40 mg twice daily with the QT interval improving over yesterday. She did have a prolonged episode of PAF starting late yesterday afternoon until the umbrella tipper hand hours. I am going to add diltiazem to her medical regimen to see if we can suppress PAF or at least a heart rate if she should go into atrial fibrillation. Medications: Current Inpatient Medications Medications (Trade) Dose Ordered Sig/Vu Route Start Time Stop Time Status Last Admin Dose Admin Acetaminophen (Tylenol Tab) 650 mg Q4H PRN PO 07/07/17 18:00 08/06/17 17:59 07/11/17 23:22 650 MG Apixaban (Eliquis Tab) 5 mg BID PO 07/07/17 21:00 08/06/17 20:59 07/12/17 09:30 5 MG Atorvastatin Calcium (Lipitor Tab) 40 mg DAILY PO 07/08/17 09:00 08/07/17 08:59 07/12/17 09:31 40 MG Ferrous Sulfate (Feosol Tab) 325 mg BIDM PO 07/08/17 07:30 08/07/17 07:29 07/09/17 09:12 325 MG Salmeterol Xinafoate/ Fluticasone (Advair Diskus 500/50 Inh) 1 puff BID INH 07/07/17 21:00 08/06/17 20:59 07/12/17 09:29 1 PUFF Lamotrigine (Lamictal Tab) 100 mg HS PO 07/07/17 21:00 08/06/17 20:59 07/08/17 21:09 100 MG Montelukast Sodium (Singulair Tab) 10 mg DAILY PO 07/08/17 09:00 08/07/17 08:59 07/12/17 09:30 10 MG Nystatin (Mycostatin Powder) 1 appln TID EXT 07/07/17 21:00 08/06/17 20:59 07/12/17 09:32 1 APPLN Nystatin/ Triamcinolone Acetonide (Mycogen II Crm) 1 appln BID EXT 07/07/17 21:00 08/06/17 20:59 07/12/17 09:32 1 APPLN Pantoprazole Sodium (Protonix Tab) 40 mg HS PO 07/07/17 21:00 08/06/17 20:59 07/11/17 20:22 40 MG Tiotropium [place] (Spiriva Handihaler Inhaler) 1 puff DAILY INH 07/08/17 09:00 08/07/17 08:59 07/12/17 09:29 1 PUFF Vitamin B Complex/ Vit C/Folic Acid (Nephrocaps) 1 cap DAILY PO 07/08/17 09:00 08/07/17 08:59 07/12/17 09:30 1 CAP Miscellaneous Information (Order Awaiting Action) 1 ea QS N/A 07/07/17 19:30 08/06/17 19:29 Magnesium Oxide (Mag-Ox Tab) 400 mg BID PO 07/07/17 21:00 08/06/17 20:59 07/12/17 09:30 400 MG Glucose (Glucose 40% Gel) 15-30 GRAMS 15 GRAMS... UD PRN PO 07/07/17 19:15 08/06/17 19:14 Glucose (Glucose Chew Tab) 4-8 Tablets 4 Tabl... UD PRN PO 07/07/17 19:15 08/06/17 19:14 Dextrose (Dextrose 50% 50ML Syringe) 25-50ML OF 50% DW IV FOR... UD PRN IV 07/07/17 19:15 08/06/17 19:14 Glucagon (Glucagon Inj) 1 mg UD PRN SQ 07/07/17 19:15 08/06/17 19:14 Miscellaneous (Iv Fluids Completed) 1 ea PRN PRN N/A 07/07/17 21:00 07/07/18 20:59 Insulin Aspart (novoLOG ASPART) SLIDING SCALE If C... ACHS SC 07/08/17 11:00 08/06/17 20:59 07/12/17 09:35 32 UNITS Insulin Glargine (Lantus Solostar Pen) 42 units BID SQ 07/08/17 21:00 08/06/17 20:59 07/12/17 09:36 42 UNITS Sotalol HCl (Betapace Tab) 40 mg BID PO 07/11/17 21:00 08/08/17 08:59 07/12/17 09:31 40 MG Levalbuterol (Xopenex 0.63 Mg/ 3 Ml Neb) 0.63 mg Q4H PRN INH 07/11/17 14:30 08/10/17 14:29 07/12/17 11:00 0.63 MG Ipratropium [place] (Atrovent 0.02% 0.5MG/2.5ML Neb) 0.5 mg Q4H PRN INH 07/11/17 14:30 08/10/17 14:29 Doxycycline Hyclate (Vibramycin Cap) 100 mg BID PO 07/11/17 14:45 07/18/17 14:44 07/12/17 09:31 100 MG Miscellaneous Information (Consult Glycemic Management Pharmacy) 1 ea UD PRN N/A 07/11/17 15:01 08/10/17 15:00 Levalbuterol (Xopenex 0.31MG/ 3ML Neb) 0.31 mg Q6RWA INH 07/12/17 15:00 08/11/17 14:59 Acetylcysteine (Mucomyst 20% Inh Soln) 3 ml BIDR INH 07/12/17 20:00 08/11/17 19:59 Lorazepam (Ativan Tab) 0.5 mg Q6H PRN PO 07/12/17 09:30 08/11/17 09:29 Insulin Human NPH (humuLIN-N U-100 PER UNIT) 50 units QDL SQ 07/12/17 11:30 07/12/17 11:31 Lab Results: Last 24 Hours Test 07/11/17 16:15 07/11/17 20:24 07/12/17 02:17 07/12/17 06:25 Bedside Glucose 203 mg/dl 158 mg/dl 294 mg/dl 292 mg/dl
[2017-07-12] MEDS ORDERED: [UNRECOGNIZED DRUG - OTHER] SQ SCH (11:30)
[2017-07-12] MEDS ORDERED: INSULIN HUMAN REGULAR IV BOLUS 10 UNIT in SYRINGE 0 ML IV SCH (12:30)
[2017-07-12] MEDS: LEVALBUTEROL 0.31MG/3 ML VIAL INH SCH ×2 (14:11→19:25)
[2017-07-12] MEDS: DILTIAZEM HCL 30 MG TAB PO SCH ×2 (14:18→20:46)
[2017-07-12] MEDS: ACETAMINOPHEN 325 MG TAB PO PRN ×2 (14:20→23:37)
[2017-07-12] MEDS: ACETYLCYSTEINE 20% INHAL SOLN ***DISPENSED BY RESP. INH SCH (19:25)
[2017-07-12] MEDS: PANTOprazole SOD 40 MG TAB PO SCH (20:48)
[2017-07-13] VITALS (11 sets, daily range): BP systolic 101–136; BP diastolic 58–73; PULSE 49–82; TEMP 36.5–36.7; O2SAT 92–95
[2017-07-13] MEDS ORDERED: INSULIN ASPART 100 UNITS/ML 3 ML PEN SC SCH (02:00)
[2017-07-13] MEDS: LEVALBUTEROL 0.31MG/3 ML VIAL INH SCH ×3 (07:14→19:35)
[2017-07-13] MEDS: ACETYLCYSTEINE 20% INHAL SOLN ***DISPENSED BY RESP. INH SCH ×2 (07:15→19:35)
[2017-07-13] MEDS: FERROUS SULFATE 325 MG TAB PO SCH ×3 (07:30→18:24)
[2017-07-13] MEDS: XYZAL~ORDER AWAITING ACTION SCH ×4 (08:00→23:25)
[2017-07-13] MEDS: TIOTROPIUM BROMIDE 5 PUFF/90 MCG INH INH SCH (09:00)
[2017-07-13 09:22] LABS: BASO % 0.4 %; BASO ABS # 0.06 K/uL (0-0.2); EOS % 0.8 %; EOS ABS # 0.13 K/uL (0-0.5); HEMATOCRIT 38.4 % (37-47); IG# 0.08 K/uL (0.00-0.02); LYMPH % 30.6 %; LYMPH ABS # 4.76 K/uL (1.2-3.4); MEAN CELL VOLUME 89.9 fL (80-100); MEAN CORPUSCULAR HEMOGLOBIN 30.4 pg (25-34); MEAN CORPUSCULAR HGB CONC 33.9 g/dl (32-36); MEAN PLATELET VOLUME 10.2 fL (7.4-10.4); MONO % 8.5 %; MONO ABS # 1.32 K/uL (0.11-0.59); NEUT % 59.2 %; PLATELET COUNT 203 K/uL (130-400); RED CELL DISTRIBUTION WIDTH CV 14.2 % (11.5-14.5); RED CELL DISTRIBUTION WIDTH SD 46.5 fL (36.4-46.3); WHITE BLOOD COUNT 15.55 K/uL (4.8-10.8)
--- NOTE | 2017-07-13 09:43 | Pharmacy Progress Note ---
Pharmacy Glycemic Short Note 2 Date of Service Jul 13, 2017. OUTPATIENT ANTIDIABETIC REGIMEN: * Basaglar 40 units BID + Humulin 70/30 ... 45 units in the morning and 40 units in the PM (CONFIRMED WITH PATIENT AND ALLSCRIPTS) plus Victozia * Total daily insulin dose is 465 units + Victoza Item Value Date Time Bedside Glucose 173 mg/dl H 07/11/17 0611 Bedside Glucose 210 mg/dl H 07/11/17 1121 Bedside Glucose 203 mg/dl H 07/11/17 1615 Bedside Glucose 158 mg/dl H 07/11/17 2024 Bedside Glucose 294 mg/dl H 07/12/17 0217 Bedside Glucose 292 mg/dl H 07/12/17 0625 Bedside Glucose 326 mg/dl H 07/12/17 1126 Bedside Glucose 271 mg/dl H 07/12/17 1458 Bedside Glucose 280 mg/dl H 07/12/17 1620 Bedside Glucose 331 mg/dl H 07/12/17 2023 Bedside Glucose 315 mg/dl H 07/13/17 0205 Bedside Glucose 198 mg/dl H 07/13/17 0647 ASSESSMENT: * 66yo T2DM female with significant insulin resistance- on high doses of insulin as an outpatient. High insulin needs are compounded but infection and daily prednisone dosing. * Pt was receiving ~125 units of insulin per day with near adequate control on - 07/11. However, daily prednsone started the evening of 07/11 which has deteriorated glycemic control despite aggressive insulin dosing. * Pt has received 331 units of insulin over the past 24hrs. * 84 units of basal insulin with Lantus * 50 units of NPH to cover steroid induced hyperglycemia from prednisone 40mg * 197 units of prandial/correctional insulin * Risk factors for insulin resistance are decreasing over the past 24hrs * Steroid dosing decreased from 40mg daily to 30mg daily * Infection is being adequately treated/Pt status improving * Despite these improvements, will keep insulin dosing the same today since BSGs were all >270 mg/dl yesterday. Decreased steroid dosing should yield improvement in BSGs and insulin dose increase may not be needed. * AM Fasting BSG = 198 mg/dl --> this is above goal range but decrease in prednisone dosing should yield improvements * Post-prandial BSGs are elevated/BSGs rise throughout the day, however, decrease in prednisone dosing should yield improvement PLAN FOR INPATIENT GLYCEMIC CONTROL: no changes at this time. * Basal insulin * Lantus 42 units SQ BID * Steroid/Prednisone induced hyperglycemia * NPH 50 units SQ daily with lunch * Bolus insulin * NovoLog per scale ACHS or Q6hrs while NPO * Goal Range: Low 110 mg/dL - High 140 mg/dL * Correction Factor: 9 mg/dL/unit * Nutritional / Prandial insulin per carb ratio of 1 unit per 2 grams CHO consumed PLAN FOR DISCHARGE: * Patient is well controlled on regimen. Follow-up with PCP/endo provider. * Pt may require adjustment in AM dose of 70/30 if prednisone is continued post- discharge.
[2017-07-13] MEDS: ATORVASTATIN 40 MG TAB PO SCH (09:50)
[2017-07-13] MEDS: INSULIN GLARGINE SOLOSTAR 100 UNITS/ML 3 ML PEN SQ SCH ×2 (09:50→20:44)
[2017-07-13] MEDS: INSULIN ASPART 100 UNITS/ML 3 ML PEN SC SCH ×4 (09:50→21:41)
[2017-07-13] MEDS: MONTELUKAST SOD 10 MG TAB PO SCH (09:51)
[2017-07-13] MEDS: NEPHROCAPS PO SCH (09:51)
[2017-07-13] MEDS: MAGNESIUM OXIDE 400 MG TAB PO SCH ×2 (09:51→20:40)
[2017-07-13] MEDS: FLUTICASONE/SALMETEROL (ADVAIR) 500/50 INH 14 PUFF INH SCH ×2 (09:51→20:36)
[2017-07-13] MEDS: DILTIAZEM HCL 30 MG TAB PO SCH ×3 (09:52→20:38)
[2017-07-13] MEDS: DOXYCYCLINE HYCLATE 100 MG CAP PO SCH ×2 (09:52→20:39)
[2017-07-13] MEDS: APIXABAN 2.5 MG TAB PO SCH ×2 (09:52→20:40)
[2017-07-13] MEDS: SOTALOL HCL 80 MG TAB PO SCH ×2 (09:53→20:37)
[2017-07-13 09:58] LABS: CREATININE 0.8 mg/dl (0.60-1.20); POTASSIUM 3.9 mmol/L (3.5-5.1)
[2017-07-13] MEDS: NYSTATIN POWDER 15GM BTL EXT SCH ×3 (10:03→20:41)
[2017-07-13] MEDS: NYSTATIN/TRIAMCINOLONE CR 15 GM TUBE EXT SCH ×2 (10:04→20:41)
[2017-07-13] MEDS: ACETAMINOPHEN 325 MG TAB PO PRN ×2 (12:08→23:27)
[2017-07-13] MEDS: INSULIN HUMAN NPH SC SCH (12:12)
--- NOTE | 2017-07-13 13:31 | Cardiology Follow-Up ---
Subjective Subjective Date of Service: Jul 13, 2017. Pt evaluation today including: conversation w/ patient, physical exam, chart review, lab review, review of studies, review of inpatient medication list Additional Details: The patient had an uneventful night. No new cardiac complaints. I reviewed her telemetry from last night. She has had no additional episodes of paroxysmal atrial fibrillation. She is maintaining sinus rhythm with sinus bradycardia at night while sleeping which is not clinically significant. Problem List Medical Problems: (1) Atrial flutter with rapid ventricular response Status: Acute (2) Contusion of right shoulder Status: Acute (3) Facial abrasion Status: Acute (4) Hypotension Status: Acute (5) Rapid atrial fibrillation Status: Acute (6) Wound dehiscence Status: Acute Social History Problems: (1) Benign hypertension Status: Chronic (2) Bipolar disorder Status: Chronic Review of Systems Respiratory: No see HPI, No cough, No sputum, No wheezing, No shortness of breath, No dyspnea on exertion, No dyspnea at rest, No hemoptysis, No problem reported Cardiac: No see HPI, No chest pain, No orthopnea, No PND, No edema, No claudication, No palpitations, No problem reported Objective Vital Signs Last Vital Signs Documentation Date Time Temp Pulse Resp B/P (MAP) Pulse Ox O2 Delivery O2 Flow Rate FiO2 07/13/17 12:00 Room Air 07/13/17 11:20 36.5 61 20 101/63 (76) 93 07/12/17 16:00 2.0 07/08/17 00:19 21 Physical Exam: General Appearance: WD/WN, no apparent distress Eyes: bilateral eyes normal inspection, bilateral eyes PERRL, bilateral eyes EOMI ENT: normal ENT inspection, hearing grossly normal, pharynx normal Neck: supple, no adenopathy, thyroid normal, no JVD, no carotid bruits, trachea midline Respiratory/Chest: chest non-tender, lungs clear, normal breath sounds, no respiratory distress, no accessory muscle use Cardiovascular: regular rate, rhythm, no edema, no JVD, no murmur, + gallop/S4 Abdomen: normal bowel sounds, non tender, soft, no organomegaly, no pulsatile mass Extremities: normal inspection, no pedal edema, no calf tenderness Neurologic/Psychiatric: 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 The patient is on a combination of diltiazem and sotalol. Her QTc interval was normal today. She is maintaining sinus rhythm without additional episodes of PAF. She is currently clinically stable.
--- NOTE | 2017-07-13 20:17 | Progress Note ---
Medicine Progress Note Date & Time of Visit: Jul 13, 2017 at 20:14. Subjective Seen resting bedside chair comfortable States she feels improved today compared to yesterday No recurrence of A. fib with RVR, remains in sinus rhythm with controlled States chest congestion and cough starting to improve, ambulated in the hallways with no shortness of breath No other symptoms Objective Last 8 Hrs Date Time Temp Pulse Resp B/P (MAP) Pulse Ox O2 Delivery O2 Flow Rate FiO2 07/13/17 19:52 36.7 67 18 129/58 (81) 93 Room Air 07/13/17 19:35 82 18 93 Room Air 07/13/17 16:00 93 Room Air 07/13/17 15:12 36.6 56 20 131/73 (92) 93 Room Air 07/13/17 14:17 73 18 94 Room Air Physical Exam: General- oriented x 3, not in distress, speaks in sentences with no effort Eyes- anicteric Neck- no JVD Lungs-mild scattered rales at the lower lung berry, no wheezing, good bilateral air entry Heart- regular rhythm; no murmur, normal rate Abdomen- normal bowel sounds, soft, nontender Extremities- no pretibial edema, no calf tenderness Neuro- alert, oriented x 3; no gross focal deficits Skin- warm & dry Laboratory Results: Last 24 Hours Test 07/12/17 20:23 07/13/17 02:05 07/13/17 06:47 07/13/17 09:05 Bedside Glucose 331 mg/dl 315 mg/dl 198 mg/dl White Blood Count 15.55 K/uL Red Blood Count 4.27 M/uL Hemoglobin 13.0 g/dL Hematocrit 38.4 % Mean Corpuscular Volume 89.9 fL Mean Corpuscular Hemoglobin 30.4 pg Mean Corpuscular Hemoglobin Concent 33.9 g/dl Platelet Count 203 K/uL Mean Platelet Volume 10.2 fL Neutrophils (%) (Auto) 59.2 % Lymphocytes (%) (Auto) 30.6 % Monocytes (%) (Auto) 8.5 % Eosinophils (%) (Auto) 0.8 % Basophils (%) (Auto) 0.4 % Neutrophils # (Auto) 9.20 K/uL Lymphocytes # (Auto) 4.76 K/uL Monocytes # (Auto) 1.32 K/uL Eosinophils # (Auto) 0.13 K/uL Basophils # (Auto) 0.06 K/uL RDW Standard Deviation 46.5 fL RDW Coefficient of Variation 14.2 % Immature Granulocyte % (Auto) 0.5 % Immature Granulocyte # (Auto) 0.08 K/uL Sodium Level 137 mmol/L Potassium Level 3.9 mmol/L Chloride Level 105 mmol/L Carbon Dioxide Level 23 mmol/L Anion Gap 9.0 mmol/L Blood Urea Nitrogen 24 mg/dl Creatinine 0.80 mg/dl Est Creatinine Clear Calc Drug Dose 94.6 ml/min Estimated GFR () 89.7 Estimated GFR (Non- 77.4 BUN/Creatinine Ratio 29.9 Random Glucose 207 mg/dl Calcium Level 9.0 mg/dl Magnesium Level 1.8 mg/dl Test 07/13/17 11:19 07/13/17 16:48 Bedside Glucose 214 mg/dl 268 mg/dl Date/Time Source Procedure Growth Status 07/13/17 12:55 Sputum Expectorated Sputum Gram Stain Pending Received 07/13/17 12:55 Sputum Expectorated Sputum Sputum Culture Pending Received Assessment & Plan Patient is a 66-year-old female with a past medical history of paroxysmal A. fib, DM II, COPD, history of CVA and other problems mentioned below who presents from respiratory therapy with tachycardia and was found to have A Flutter with RVR. A flutter in RVR -H/o paroxysmal A Fib. Recently seen for A fib with RVR June 26 -Cardio consulted -Was initially given amiodarone bolus and drip - converted to SR Then transitioned to sotalol 80 mg twice daily 07/10/2017 Patient had an episode of A. fib with RVR Resolved with Cardizem drip 07/11/2017 QT prolonged to 518 Sotalol reduced to 40 mg twice daily Positive episode of A. fib heart rate 110s 07/12/2017 QT less than 500 Continued sotalol 40 mg twice daily Cardizem 3 times daily started 07/13/2017 Remains in sinus rhythm Continue sotalol 40 mg twice daily Cardizem 30 mg 3 times daily Continue to monitor QT daily continue Eliquis Appreciate cardiology recommendations Cough, possible acute bronchitis rule out pneumonia Chest x-ray: No signs of pulmonary congestion Prednisone 40 mg p.o. daily started, improving overall Lower prednisone to prednisone 30 mg p.o. daily today and taper Nebs every 6 hours Mucomyst twice daily day 2 out of 3 doxycycline 100 mg twice daily day #3 Monitor DM II: -Most recent a1c of 7.3 in June 2017 -Hold victoza, metformin, 70/30 insulin while in-patient -Lantus and insulin sliding scale Appreciate pharmacy glycemic control recommendations COPD, possible mild exacerbation secondary to bronchitis -At baseline Management of acute bronchitis as noted above We will closely monitor -Cont Spiriva, Advair, singulair as scheduled -Xopenex inhaler PRN H/o CVA: -Continue baby aspirin Mood disorder: -Cont Lamictal, Ativan PRN GERD: -Cont PPI DVT Ppx: Eliquis Code status: FULL PCP: Marion Mosley Dispo: Pending Usually lives at home with family Anticipate discharge to home when medically stable, cleared by cardiology Current Inpatient Medications: Current Inpatient Medications Medications (Trade) Dose Ordered Sig/Vu Route Start Time Stop Time Status Last Admin Dose Admin Acetaminophen (Tylenol Tab) 650 mg Q4H PRN PO 07/07/17 18:00 08/06/17 17:59 07/13/17 12:08 650 MG Apixaban (Eliquis Tab) 5 mg BID PO 07/07/17 21:00 08/06/17 20:59 07/13/17 09:52 5 MG Atorvastatin Calcium (Lipitor Tab) 40 mg DAILY PO 07/08/17 09:00 08/07/17 08:59 07/13/17 09:50 40 MG Ferrous Sulfate (Feosol Tab) 325 mg BIDM PO 07/08/17 07:30 08/07/17 07:29 07/09/17 09:12 325 MG Salmeterol Xinafoate/ Fluticasone (Advair Diskus 500/50 Inh) 1 puff BID INH 07/07/17 21:00 08/06/17 20:59 07/13/17 09:51 1 PUFF Lamotrigine (Lamictal Tab) 100 mg HS PO 07/07/17 21:00 08/06/17 20:59 07/08/17 21:09 100 MG Montelukast Sodium (Singulair Tab) 10 mg DAILY PO 07/08/17 09:00 08/07/17 08:59 07/13/17 09:51 10 MG Nystatin (Mycostatin Powder) 1 appln TID EXT 07/07/17 21:00 08/06/17 20:59 07/13/17 13:22 1 APPLN Nystatin/ Triamcinolone Acetonide (Mycogen II Crm) 1 appln BID EXT 07/07/17 21:00 08/06/17 20:59 07/13/17 10:04 1 APPLN Pantoprazole Sodium (Protonix Tab) 40 mg HS PO 07/07/17 21:00 08/06/17 20:59 07/12/17 20:48 40 MG Tiotropium [place] (Spiriva Handihaler Inhaler) 1 puff DAILY INH 07/08/17 09:00 08/07/17 08:59 07/12/17 09:29 1 PUFF Vitamin B Complex/ Vit C/Folic Acid (Nephrocaps) 1 cap DAILY PO 07/08/17 09:00 08/07/17 08:59 07/13/17 09:51 1 CAP Miscellaneous Information (Order Awaiting Action) 1 ea QS N/A 07/07/17 19:30 08/06/17 19:29 Magnesium Oxide (Mag-Ox Tab) 400 mg BID PO 07/07/17 21:00 08/06/17 20:59 07/13/17 09:51 400 MG Glucose (Glucose 40% Gel) 15-30 GRAMS 15 GRAMS... UD PRN PO 07/07/17 19:15 08/06/17 19:14 Glucose (Glucose Chew Tab) 4-8 Tablets 4 Tabl... UD PRN PO 07/07/17 19:15 08/06/17 19:14 Dextrose (Dextrose 50% 50ML Syringe) 25-50ML OF 50% DW IV FOR... UD PRN IV 07/07/17 19:15 08/06/17 19:14 Glucagon (Glucagon Inj) 1 mg UD PRN SQ 07/07/17 19:15 08/06/17 19:14 Miscellaneous (Iv Fluids Completed) 1 ea PRN PRN N/A 07/07/17 21:00 07/07/18 20:59 Insulin Aspart (novoLOG ASPART) SLIDING SCALE If C... ACHS SC 07/08/17 11:00 08/06/17 20:59 07/13/17 16:59 46 UNITS Insulin Glargine (Lantus Solostar Pen) 42 units BID SQ 07/08/17 21:00 08/06/17 20:59 07/13/17 09:50 42 UNITS Sotalol HCl (Betapace Tab) 40 mg BID PO 07/11/17 21:00 08/08/17 08:59 07/13/17 09:53 40 MG Levalbuterol (Xopenex 0.63 Mg/ 3 Ml Neb) 0.63 mg Q4H PRN INH 07/11/17 14:30 08/10/17 14:29 07/12/17 11:00 0.63 MG Ipratropium [place] (Atrovent 0.02% 0.5MG/2.5ML Neb) 0.5 mg Q4H PRN INH 07/11/17 14:30 08/10/17 14:29 Doxycycline Hyclate (Vibramycin Cap) 100 mg BID PO 07/11/17 14:45 07/18/17 14:44 07/13/17 09:52 100 MG Miscellaneous Information (Consult Glycemic Management Pharmacy) 1 ea UD PRN N/A 07/11/17 15:01 08/10/17 15:00 Levalbuterol (Xopenex 0.31MG/ 3ML Neb) 0.31 mg Q6RWA INH 07/12/17 15:00 08/11/17 14:59 07/13/17 19:35 0.31 MG Acetylcysteine (Mucomyst 20% Inh Soln) 3 ml BIDR INH 07/12/17 20:00 08/11/17 19:59 07/13/17 19:35 3 ML Lorazepam (Ativan Tab) 0.5 mg Q6H PRN PO 07/12/17 09:30 08/11/17 09:29 Diltiazem HCl (Cardizem Tab) 30 mg TID PO 07/12/17 14:00 08/11/17 13:59 07/13/17 13:34 30 MG Prednisone (PredniSONE TAB) 30 mg DAILY PO 07/14/17 09:00 08/13/17 08:59 Insulin Human NPH (novoLIN-N NPH) 50 units QDL SC 07/13/17 11:30 08/12/17 11:29 07/13/17 12:12 50 UNITS
[2017-07-13] MEDS: PANTOprazole SOD 40 MG TAB PO SCH (20:39)
[2017-07-14] VITALS (7 sets, daily range): BP systolic 92–121; BP diastolic 58–75; PULSE 60–90; TEMP 36.5–36.9; O2SAT 93–96
[2017-07-14] MEDS ORDERED: INSULIN ASPART 100 UNITS/ML 3 ML PEN SC SCH (02:00)
[2017-07-14] MEDS: FERROUS SULFATE 325 MG TAB PO SCH ×2 (07:30→16:29)
[2017-07-14 07:35] LABS: CALCIUM 8.8 mg/dl (8.5-10.1); CREATININE 0.81 mg/dl (0.60-1.20); POTASSIUM 3.9 mmol/L (3.5-5.1)
[2017-07-14] MEDS: LEVALBUTEROL 0.31MG/3 ML VIAL INH SCH (07:48)
[2017-07-14] MEDS: ACETYLCYSTEINE 20% INHAL SOLN ***DISPENSED BY RESP. INH SCH (07:49)
[2017-07-14] MEDS: XYZAL~ORDER AWAITING ACTION SCH ×3 (08:00→23:45)
[2017-07-14] MEDS ORDERED: INSULIN GLARGINE SOLOSTAR 100 UNITS/ML 3 ML PEN SC SCH (09:00)
--- NOTE | 2017-07-14 09:09 | Cardiology Follow-Up ---
Subjective Subjective Date of Service: Jul 14, 2017. Pt evaluation today including: conversation w/ patient, physical exam, chart review, lab review, review of studies, review of inpatient medication list Additional Details: The patient went back into atrial fibrillation with a controlled heart rate this morning after receiving a nebulizer treatment. In questioning the patient , it seems as though each time she goes into paroxysmal atrial fibrillation it is following these nebulizer treatments. She states that they make her feel jittery. I think these treatments should be discontinued or changed. Problem List Medical Problems: (1) Atrial flutter with rapid ventricular response Status: Acute (2) Contusion of right shoulder Status: Acute (3) Facial abrasion Status: Acute (4) Hypotension Status: Acute (5) Rapid atrial fibrillation Status: Acute (6) Wound dehiscence Status: Acute Social History Problems: (1) Benign hypertension Status: Chronic (2) Bipolar disorder Status: Chronic Review of Systems Respiratory: No see HPI, No cough, No sputum, No wheezing, No shortness of breath, No dyspnea on exertion, No dyspnea at rest, No hemoptysis, No problem reported Cardiac: No see HPI, No chest pain, No orthopnea, No PND, No edema, No claudication, No palpitations, No problem reported Objective Vital Signs Last Vital Signs Documentation Date Time Temp Pulse Resp B/P (MAP) Pulse Ox O2 Delivery O2 Flow Rate FiO2 07/14/17 08:06 36.5 73 18 110/70 (83) 96 07/14/17 07:49 Room Air 07/12/17 16:00 2.0 07/08/17 00:19 21 Physical Exam: General Appearance: WD/WN, no apparent distress Eyes: bilateral eyes normal inspection, bilateral eyes PERRL, bilateral eyes EOMI ENT: normal ENT inspection, hearing grossly normal, pharynx normal Neck: supple, no adenopathy, thyroid normal, no JVD, no carotid bruits, trachea midline Respiratory/Chest: chest non-tender, lungs clear, normal breath sounds, no respiratory distress, no accessory muscle use Cardiovascular: regular rate, rhythm, no edema, no JVD, no murmur, + gallop/S4 Abdomen: normal bowel sounds, non tender, soft, no organomegaly, no pulsatile mass Extremities: normal inspection, no pedal edema, no calf tenderness Neurologic/Psychiatric: rigger up II-XII 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 The patient is on a combination of diltiazem and sotalol. She had been maintaining sinus rhythm but converted to atrial fibrillation with controlled heart rate this morning after receiving a nebulizer treatment. The treatment is combination of Mucomyst and levalbuterol which I believe may be exacerbating her atrial arrhythmias. I would ask the hospitalist to switch or discontinue this medication. Medications: Current Inpatient Medications Medications (Trade) Dose Ordered Sig/Vu Route Start Time Stop Time Status Last Admin Dose Admin Acetaminophen (Tylenol Tab) 650 mg Q4H PRN PO 07/07/17 18:00 08/06/17 17:59 07/13/17 23:27 650 MG Apixaban (Eliquis Tab) 5 mg BID PO 07/07/17 21:00 08/06/17 20:59 07/13/17 20:40 5 MG Atorvastatin Calcium (Lipitor Tab) 40 mg DAILY PO 07/08/17 09:00 08/07/17 08:59 07/13/17 09:50 40 MG Ferrous Sulfate (Feosol Tab) 325 mg BIDM PO 07/08/17 07:30 08/07/17 07:29 07/09/17 09:12 325 MG Salmeterol Xinafoate/ Fluticasone (Advair Diskus 500/50 Inh) 1 puff BID INH 07/07/17 21:00 08/06/17 20:59 07/13/17 20:36 1 PUFF Lamotrigine (Lamictal Tab) 100 mg HS PO 07/07/17 21:00 08/06/17 20:59 07/08/17 21:09 100 MG Montelukast Sodium (Singulair Tab) 10 mg DAILY PO 07/08/17 09:00 08/07/17 08:59 07/13/17 09:51 10 MG Nystatin (Mycostatin Powder) 1 appln TID EXT 07/07/17 21:00 08/06/17 20:59 07/13/17 20:41 1 APPLN Nystatin/ Triamcinolone Acetonide (Mycogen II Crm) 1 appln BID EXT 07/07/17 21:00 08/06/17 20:59 07/13/17 20:41 1 APPLN Pantoprazole Sodium (Protonix Tab) 40 mg HS PO 07/07/17 21:00 08/06/17 20:59 07/13/17 20:39 40 MG Tiotropium [place] (Spiriva Handihaler Inhaler) 1 puff DAILY INH 07/08/17 09:00 08/07/17 08:59 07/12/17 09:29 1 PUFF Vitamin B Complex/ Vit C/Folic Acid (Nephrocaps) 1 cap DAILY PO 07/08/17 09:00 08/07/17 08:59 07/13/17 09:51 1 CAP Miscellaneous Information (Order Awaiting Action) 1 ea QS N/A 07/07/17 19:30 08/06/17 19:29 Magnesium Oxide (Mag-Ox Tab) 400 mg BID PO 07/07/17 21:00 08/06/17 20:59 07/13/17 20:40 400 MG Glucose (Glucose 40% Gel) 15-30 GRAMS 15 GRAMS... UD PRN PO 07/07/17 19:15 08/06/17 19:14 Glucose (Glucose Chew Tab) 4-8 Tablets 4 Tabl... UD PRN PO 07/07/17 19:15 08/06/17 19:14 Dextrose (Dextrose 50% 50ML Syringe) 25-50ML OF 50% DW IV FOR... UD PRN IV 07/07/17 19:15 08/06/17 19:14 Glucagon (Glucagon Inj) 1 mg UD PRN SQ 07/07/17 19:15 08/06/17 19:14 Miscellaneous (Iv Fluids Completed) 1 ea PRN PRN N/A 07/07/17 21:00 07/07/18 20:59 Insulin Aspart (novoLOG ASPART) SLIDING SCALE If C... ACHS SC 07/08/17 11:00 08/06/17 20:59 07/13/17 21:41 36 UNITS Insulin Glargine (Lantus Solostar Pen) 42 units BID SQ 07/08/17 21:00 08/06/17 20:59 Future Hold 07/13/17 20:44 42 UNITS Sotalol HCl (Betapace Tab) 40 mg BID PO 07/11/17 21:00 08/08/17 08:59 07/13/17 20:37 40 MG Levalbuterol (Xopenex 0.63 Mg/ 3 Ml Neb) 0.63 mg Q4H PRN INH 07/11/17 14:30 08/10/17 14:29 07/12/17 11:00 0.63 MG Ipratropium [place] (Atrovent 0.02% 0.5MG/2.5ML Neb) 0.5 mg Q4H PRN INH 07/11/17 14:30 08/10/17 14:29 07/14/17 07:48 0.5 MG Doxycycline Hyclate (Vibramycin Cap) 100 mg BID PO 07/11/17 14:45 07/18/17 14:44 07/13/17 20:39 100 MG Miscellaneous Information (Consult Glycemic Management Pharmacy) 1 ea UD PRN N/A 07/11/17 15:01 08/10/17 15:00 Levalbuterol (Xopenex 0.31MG/ 3ML Neb) 0.31 mg Q6RWA INH 07/12/17 15:00 08/11/17 14:59 07/14/17 07:48 0.31 MG Acetylcysteine (Mucomyst 20% Inh Soln) 3 ml BIDR INH 07/12/17 20:00 08/11/17 19:59 07/14/17 07:49 3 ML Lorazepam (Ativan Tab) 0.5 mg Q6H PRN PO 07/12/17 09:30 08/11/17 09:29 Diltiazem HCl (Cardizem Tab) 30 mg TID PO 07/12/17 14:00 08/11/17 13:59 07/13/17 20:38 30 MG Prednisone (PredniSONE TAB) 30 mg DAILY PO 07/14/17 09:00 08/13/17 08:59 Insulin Human NPH (novoLIN-N NPH) 50 units QDL SC 07/13/17 11:30 08/12/17 11:29 07/13/17 12:12 50 UNITS Insulin Glargine (Lantus Solostar Pen) 70 units TODAY@0900 SC 07/14/17 09:00 07/14/17 10:00 Lab Results: Last 24 Hours Test 07/13/17 11:19 07/13/17 16:48 07/13/17 20:32 07/14/17 01:52 Bedside Glucose 214 mg/dl 268 mg/dl 335 mg/dl 268 mg/dl Test 07/14/17 06:20 07/14/17 06:41 Sodium Level 140 mmol/L Potassium Level 3.9 mmol/L Chloride Level 106 mmol/L Carbon Dioxide Level 26 mmol/L Anion Gap 8.0 mmol/L Blood Urea Nitrogen 23 mg/dl Creatinine 0.81 mg/dl Est Creatinine Clear Calc Drug Dose 93.4 ml/min Estimated GFR () 88.3 Estimated GFR (Non- 76.2 BUN/Creatinine Ratio 28.5 Random Glucose 291 mg/dl Calcium Level 8.8 mg/dl Magnesium Level 1.8 mg/dl Bedside Glucose 240 mg/dl
[2017-07-14] MEDS: FLUTICASONE/SALMETEROL (ADVAIR) 500/50 INH 14 PUFF INH SCH ×2 (09:24→20:43)
[2017-07-14] MEDS: NYSTATIN/TRIAMCINOLONE CR 15 GM TUBE EXT SCH ×2 (09:24→20:42)
[2017-07-14] MEDS: NYSTATIN POWDER 15GM BTL EXT SCH ×3 (09:24→20:42)
[2017-07-14] MEDS: MONTELUKAST SOD 10 MG TAB PO SCH (09:25)
[2017-07-14] MEDS: APIXABAN 2.5 MG TAB PO SCH ×2 (09:25→20:55)
[2017-07-14] MEDS: TIOTROPIUM BROMIDE 5 PUFF/90 MCG INH INH SCH (09:25)
[2017-07-14] MEDS: ATORVASTATIN 40 MG TAB PO SCH (09:25)
[2017-07-14] MEDS: NEPHROCAPS PO SCH (09:25)
[2017-07-14] MEDS: SOTALOL HCL 80 MG TAB PO SCH ×2 (09:25→20:43)
[2017-07-14] MEDS: DOXYCYCLINE HYCLATE 100 MG CAP PO SCH ×2 (09:26→20:43)
[2017-07-14] MEDS: MAGNESIUM OXIDE 400 MG TAB PO SCH ×2 (09:26→20:44)
[2017-07-14] MEDS: DILTIAZEM HCL 30 MG TAB PO SCH ×3 (09:26→20:43)
[2017-07-14] MEDS: INSULIN ASPART 100 UNITS/ML 3 ML PEN SC SCH ×5 (09:27→23:49)
[2017-07-14] MEDS ORDERED: LEValbuterol HFA 15GM INHALER INH PRN (11:15)
--- NOTE | 2017-07-14 11:57 | Progress Note ---
Subjective Date of Service: Jul 14, 2017. Subjective Pt evaluation today including: conversation w/ patient, physical exam, lab review, review of studies, review of inpatient medication list Saw/examined the patient in room 235 cough and wheezing persists no shortness of breath at this time has some chest congestion, but no chest pain; palpitations Problem List Medical Problems: (1) Atrial flutter with rapid ventricular response Status: Acute (2) Contusion of right shoulder Status: Acute (3) Facial abrasion Status: Acute (4) Hypotension Status: Acute (5) Rapid atrial fibrillation Status: Acute (6) Wound dehiscence Status: Acute Social History Problems: (1) Benign hypertension Status: Chronic (2) Bipolar disorder Status: Chronic Review of Systems Constitutional: No fever, No chills Respiratory: + cough, + sputum, + wheezing, No shortness of breath, No dyspnea on exertion, No dyspnea at rest, No hemoptysis Cardiac: No chest pain, No edema, No palpitations Abdomen: No pain, No nausea, No vomiting, No diarrhea Musculoskeletal: No joint pain Medications Current Inpatient Medications Medications (Trade) Dose Ordered Sig/Vu Route Start Time Stop Time Status Last Admin Dose Admin Acetaminophen (Tylenol Tab) 650 mg Q4H PRN PO 07/07/17 18:00 08/06/17 17:59 07/13/17 23:27 650 MG Apixaban (Eliquis Tab) 5 mg BID PO 07/07/17 21:00 08/06/17 20:59 07/14/17 09:25 5 MG Atorvastatin Calcium (Lipitor Tab) 40 mg DAILY PO 07/08/17 09:00 08/07/17 08:59 07/14/17 09:25 40 MG Ferrous Sulfate (Feosol Tab) 325 mg BIDM PO 07/08/17 07:30 08/07/17 07:29 07/09/17 09:12 325 MG Salmeterol Xinafoate/ Fluticasone (Advair Diskus 500/50 Inh) 1 puff BID INH 07/07/17 21:00 08/06/17 20:59 07/14/17 09:24 1 PUFF Lamotrigine (Lamictal Tab) 100 mg HS PO 07/07/17 21:00 08/06/17 20:59 07/08/17 21:09 100 MG Montelukast Sodium (Singulair Tab) 10 mg DAILY PO 07/08/17 09:00 08/07/17 08:59 07/14/17 09:25 10 MG Nystatin (Mycostatin Powder) 1 appln TID EXT 07/07/17 21:00 08/06/17 20:59 07/14/17 09:24 1 APPLN Nystatin/ Triamcinolone Acetonide (Mycogen II Crm) 1 appln BID EXT 07/07/17 21:00 08/06/17 20:59 07/14/17 09:24 1 APPLN Pantoprazole Sodium (Protonix Tab) 40 mg HS PO 07/07/17 21:00 08/06/17 20:59 07/13/17 20:39 40 MG Tiotropium [place] (Spiriva Handihaler Inhaler) 1 puff DAILY INH 07/08/17 09:00 08/07/17 08:59 07/14/17 09:25 1 PUFF Vitamin B Complex/ Vit C/Folic Acid (Nephrocaps) 1 cap DAILY PO 07/08/17 09:00 08/07/17 08:59 07/14/17 09:25 1 CAP Miscellaneous Information (Order Awaiting Action) 1 ea QS N/A 07/07/17 19:30 08/06/17 19:29 Magnesium Oxide (Mag-Ox Tab) 400 mg BID PO 07/07/17 21:00 08/06/17 20:59 07/14/17 09:26 400 MG Glucose (Glucose 40% Gel) 15-30 GRAMS 15 GRAMS... UD PRN PO 07/07/17 19:15 08/06/17 19:14 Glucose (Glucose Chew Tab) 4-8 Tablets 4 Tabl... UD PRN PO 07/07/17 19:15 08/06/17 19:14 Dextrose (Dextrose 50% 50ML Syringe) 25-50ML OF 50% DW IV FOR... UD PRN IV 07/07/17 19:15 08/06/17 19:14 Glucagon (Glucagon Inj) 1 mg UD PRN SQ 07/07/17 19:15 08/06/17 19:14 Miscellaneous (Iv Fluids Completed) 1 ea PRN PRN N/A 07/07/17 21:00 07/07/18 20:59 Insulin Aspart (novoLOG ASPART) SLIDING SCALE If C... ACHS SC 07/08/17 11:00 08/06/17 20:59 07/14/17 09:27 36 UNITS Insulin Glargine (Lantus Solostar Pen) 42 units BID SQ 07/08/17 21:00 08/06/17 20:59 Future Hold 07/13/17 20:44 42 UNITS Sotalol HCl (Betapace Tab) 40 mg BID PO 07/11/17 21:00 08/08/17 08:59 07/14/17 09:25 40 MG Doxycycline Hyclate (Vibramycin Cap) 100 mg BID PO 07/11/17 14:45 07/18/17 14:44 07/14/17 09:26 100 MG Miscellaneous Information (Consult Glycemic Management Pharmacy) 1 ea UD PRN N/A 07/11/17 15:01 08/10/17 15:00 Acetylcysteine (Mucomyst 20% Inh Soln) 3 ml BIDR INH 07/12/17 20:00 08/11/17 19:59 07/14/17 07:49 3 ML Lorazepam (Ativan Tab) 0.5 mg Q6H PRN PO 07/12/17 09:30 08/11/17 09:29 Diltiazem HCl (Cardizem Tab) 30 mg TID PO 07/12/17 14:00 08/11/17 13:59 07/14/17 09:26 30 MG Insulin Human NPH (novoLIN-N NPH) 50 units QDL SC 07/13/17 11:30 08/12/17 11:29 07/13/17 12:12 50 UNITS Prednisone (PredniSONE TAB) 20 mg DAILY PO 07/15/17 09:00 08/13/17 08:59 UNV Guaifenesin (Mucinex Contr Rel Tab) 600 mg Q12 PO 07/14/17 21:00 08/13/17 20:59 UNV Objective Vital Signs Date Time Temp Pulse Resp B/P (MAP) Pulse Ox O2 Delivery O2 Flow Rate FiO2 07/14/17 08:06 36.5 73 18 110/70 (83) 96 07/14/17 08:00 Room Air 07/14/17 07:49 71 18 94 Room Air 07/14/17 04:00 Room Air 07/14/17 03:33 36.6 69 20 117/72 (87) 95 CPAP 07/14/17 00:00 CPAP 07/13/17 23:15 36.6 58 20 125/71 (89) 94 Room Air 07/13/17 20:00 Room Air 07/13/17 19:52 36.7 67 18 129/58 (81) 93 Room Air 07/13/17 19:35 82 18 93 Room Air 07/13/17 16:00 93 Room Air 07/13/17 15:12 36.6 56 20 131/73 (92) 93 Room Air 07/13/17 14:17 73 18 94 Room Air 07/13/17 12:00 Room Air 07/13/17 11:20 36.5 61 20 101/63 (76) 93 Room Air Physical Exam General Appearance: no apparent distress, + obese Respiratory/Chest: no respiratory distress, no accessory muscle use, + decreased breath sounds, + wheezing (sonorous wheezing on expiration, worse on the L) Cardiovascular: no edema, no murmur, + tachycardia, + irregularly irregular Extremities: normal range of motion, non-tender, normal inspection, no pedal edema, no calf tenderness Neurologic/Psychiatric: no motor/sensory deficits, alert, normal mood/affect Skin: normal color Lymphatic: no adenopathy Laboratory Results Last 24 Hours Test 07/13/17 11:19 07/13/17 16:48 07/13/17 20:32 07/14/17 01:52 Bedside Glucose 214 mg/dl 268 mg/dl 335 mg/dl 268 mg/dl Test 07/14/17 06:20 07/14/17 06:41 Sodium Level 140 mmol/L Potassium Level 3.9 mmol/L Chloride Level 106 mmol/L Carbon Dioxide Level 26 mmol/L Anion Gap 8.0 mmol/L Blood Urea Nitrogen 23 mg/dl Creatinine 0.81 mg/dl Est Creatinine Clear Calc Drug Dose 93.4 ml/min Estimated GFR () 88.3 Estimated GFR (Non- 76.2 BUN/Creatinine Ratio 28.5 Random Glucose 291 mg/dl Calcium Level 8.8 mg/dl Magnesium Level 1.8 mg/dl Bedside Glucose 240 mg/dl Assessment and Plan This is a 67 year old morbidly obese female with a past medical history of paroxysmal atrial fibrillation on long-term anticoagulation, COPD, REENA on nocturnal CPAP, insulin dependent DM2, depression/anxiety, HLD, hx. of CVA - presents with tachycardia during respiratory treatment as outpatient - found to have A. Fib with RVR; continues to have productive cough, end expiratory wheezing and congestion. Paroxysmal Atrial Fibrillation presented with Rapid Ventricular Response - in the setting of respiratory treatment, b-agonist use - patient was started on amiodarone, but due to QT prolongation, this was stopped and patient started on sotalol - patient is also on diltiazem for rate control and Eliquis for anticoagulation - had converted to sinus rhythm, but reverts back to A. Fib with breathing treatments - will stop nebulizers and taper down steroids in hopes of better atrial tachyarrhythmia control - appreciate cardiology input Acute Bronchitis Mild Acute COPD Exacerbation - patient presented with productive cough, wheezing - unlikely pneumonia; more likely URI vs. viral bronchitis - either way, will treat with a 7 day course of doxycycline - Xopenex nebulizers seems to be triggering the A. Fib - will stop all nebulizers and go back to inhalers - taper prednisone down to 20mg, quick taper - added Mucinex - continue Spiriva and Advair REENA on Nocturnal CPAP Insulin Dependent DM2 - well controlled as outpatient, with Ha1c = 7.3% - while inpatient and with steroid use, requiring a change in insulin regimen - appreciate glycemic control input - on discharge, back to her baseline insulin - tapering down steroids to prednisone 20mg daily for now Hx. of CVA - continue Lipitor - takes Eliquis, does not take aspirin; continue this Mood Disorder; Depression with Anxiety - continue home medications, Lamictal GERD - continue PPI DVT ppx - Eliquis FULL CODE
[2017-07-14] MEDS: ACETAMINOPHEN 325 MG TAB PO PRN ×2 (12:24→23:54)
[2017-07-14] MEDS: INSULIN HUMAN NPH SC SCH (12:27)
--- NOTE | 2017-07-14 13:18 | Pharmacy Progress Note ---
Glycemic Control Progress Note Date of Service Jul 14, 2017. Scope Glycemic Pharmacist consulted for glycemic control to write orders per [facility] inpatient glycemic control protocol. Objective Accuchecks BSG (last 24hrs): Test 07/13/17 16:48 07/13/17 20:32 07/14/17 01:52 07/14/17 06:20 Bedside Glucose 268 mg/dl (70-90) 335 mg/dl (70-90) 268 mg/dl (70-90) Random Glucose 291 mg/dl (70-99) Test 07/14/17 06:41 07/14/17 11:13 Bedside Glucose 240 mg/dl (70-90) 264 mg/dl (70-90) Recent Pertinent Medications The patient is currently receiving: * Basal insulin: Lantus 70 units this AM. 07/13/17 lantus 42 units BID * Correctional Insulin: Novolog Correction per scale ACHS Goal Range: Low 110 mg/dL - High 140 mg/dL Correction Factor: 9 mg/dL/unit * Prandial insulin: Per carb ratio of 1 unit per 2 grams CHO consumed Assessment & Plan ASSESSMENT: * See progress note from 07/13/17 for more background info, in short: * Pt receiving SQ basal bolus insulin regimen for hyperglycemia secondary to baseline DM (outpatient regimen on hold), high daily insulin requirement due to underlying infxn and daily prednisone. Ms. Mercado set to start Prednisone 20mg QAM 07/15/17, previously ordered 30mg daily. * She required 310 units of insulin over the previous 24hrs. * 112 units of Lantus * 50 units of NPH to cover prednisone's metabolic antagonization of insulin * 176 units of correctional/prandial Plan: * Continue with previously ordered CF:CR. Will add 0000/0400 checks * Despite the taper in prednisone dose: I plan on continuing NPH 50units QDL, BSGs have remained largely above goal. * Basal scale set for evening of 07/14/17: BSG 200 or greater give 50units, BSG less than 200 give 42 units * Insulin requirements ostensibly seem to be decreasing; however, her BSGs have not been under 214 over the previous 24hrs * Please note that the plan above was derived based on current level of insulin resistance and hospital stress. These recommendations are appropriate for inpatient admission only. Plan of care upon discharge will need to be reassessed to avoid potential outpatient hypo/hyperglycemia. Thank you.
[2017-07-14] MEDS: PANTOprazole SOD 40 MG TAB PO SCH (20:44)
[2017-07-14] MEDS: INSULIN GLARGINE SOLOSTAR 100 UNITS/ML 3 ML PEN SQ SCH (20:50)
[2017-07-14] MEDS: GUAIFENESIN 600 MG TABCR PO SCH (20:54)
[2017-07-15] MEDS: INSULIN ASPART 100 UNITS/ML 3 ML PEN SC SCH ×5 (03:26→21:05)
[2017-07-15 04:05] VITALS: BP 116/79; PULSE 44; TEMP 36.4; O2SAT 95
[2017-07-15 06:33] LABS: HEMATOCRIT 37.3 % (37-47); HEMOGLOBIN 12.4 g/dL (12.0-16.0); MEAN CELL VOLUME 91.2 fL (80-100); MEAN CORPUSCULAR HEMOGLOBIN 30.3 pg (25-34); MEAN CORPUSCULAR HGB CONC 33.2 g/dl (32-36); MEAN PLATELET VOLUME 10.8 fL (7.4-10.4); PLATELET COUNT 191 K/uL (130-400); RED CELL DISTRIBUTION WIDTH CV 14.2 % (11.5-14.5); WHITE BLOOD COUNT 13.75 K/uL (4.8-10.8)
[2017-07-15 07:10] LABS: CALCIUM 8.7 mg/dl (8.5-10.1); CREATININE 0.81 mg/dl (0.60-1.20); POTASSIUM 3.7 mmol/L (3.5-5.1)
[2017-07-15] MEDS: FERROUS SULFATE 325 MG TAB PO SCH ×2 (07:17→17:41)
[2017-07-15 07:30] VITALS: BP 114/70; PULSE 52; TEMP 36.4; O2SAT 93
[2017-07-15] MEDS: XYZAL~ORDER AWAITING ACTION SCH ×3 (08:00→23:20)
[2017-07-15] MEDS: DILTIAZEM HCL 30 MG TAB PO SCH ×3 (09:14→21:15)
[2017-07-15] MEDS: ATORVASTATIN 40 MG TAB PO SCH (09:14)
[2017-07-15] MEDS: APIXABAN 2.5 MG TAB PO SCH ×2 (09:15→21:14)
[2017-07-15] MEDS: MAGNESIUM OXIDE 400 MG TAB PO SCH ×2 (09:15→21:12)
[2017-07-15] MEDS: GUAIFENESIN 600 MG TABCR PO SCH ×2 (09:15→21:13)
[2017-07-15] MEDS: NEPHROCAPS PO SCH (09:15)
[2017-07-15] MEDS: MONTELUKAST SOD 10 MG TAB PO SCH (09:15)
[2017-07-15] MEDS: ACETAMINOPHEN 325 MG TAB PO PRN ×3 (09:16→23:21)
[2017-07-15] MEDS: SOTALOL HCL 80 MG TAB PO SCH ×2 (09:16→21:11)
[2017-07-15] MEDS: FLUTICASONE/SALMETEROL (ADVAIR) 500/50 INH 14 PUFF INH SCH ×2 (09:16→21:10)
[2017-07-15] MEDS: DOXYCYCLINE HYCLATE 100 MG CAP PO SCH ×2 (09:17→21:16)
[2017-07-15] MEDS: TIOTROPIUM BROMIDE 5 PUFF/90 MCG INH INH SCH (09:17)
[2017-07-15] MEDS: INSULIN GLARGINE SOLOSTAR 100 UNITS/ML 3 ML PEN SQ SCH ×2 (09:24→21:09)
[2017-07-15] MEDS: INSULIN HUMAN NPH SC SCH ×2 (09:25→17:40)
[2017-07-15] MEDS: NYSTATIN/TRIAMCINOLONE CR 15 GM TUBE EXT SCH ×2 (09:26→21:10)
[2017-07-15] MEDS: NYSTATIN POWDER 15GM BTL EXT SCH ×3 (09:26→21:10)
--- NOTE | 2017-07-15 10:06 | Pharmacy Progress Note ---
Pharmacy Glycemic Short Note 2 Date of Service Jul 15, 2017. OUTPATIENT ANTIDIABETIC REGIMEN: * Basaglar 40 units BID + Humulin 70/30 ... 45 units in the morning and 40 units in the PM (CONFIRMED WITH PATIENT AND [facility]CRIPTS) plus Victozia * Total daily insulin dose is 465 units + Victoza Item Value Date Time Bedside Glucose 268 mg/dl H 07/14/17 0152 Bedside Glucose 240 mg/dl H 07/14/17 0641 Bedside Glucose 264 mg/dl H 07/14/17 1113 Bedside Glucose 257 mg/dl H 07/14/17 1613 Bedside Glucose 332 mg/dl H 07/14/17 2037 Bedside Glucose 267 mg/dl H 07/14/17 2342 Bedside Glucose 262 mg/dl H 07/15/17 0320 Bedside Glucose 218 mg/dl H 07/15/17 0628 ASSESSMENT: * 66yo T2DM female with significant insulin resistance- on high doses of insulin as an outpatient. High insulin needs are compounded by infection and daily prednisone dosing. * Pt was receiving ~125 units of insulin per day with near adequate control on - 07/11. However, daily prednsone started the evening of 07/11 which has deteriorated glycemic control despite aggressive insulin dosing. * Pt has been requiring 350+ units of insulin per day with suboptimal control. Most BSGs >250 mg/dl * Hesitant to increase Lantus dosing as steroids have their most profound effect on post-prandial hyperglycemia. Additionally, do not want large doses of 24hr insulin on board in the event that steroid dose is rapidly tapered. * Hyperglycemia secondary to once daily prednisone is best covered with the addition of NPH insulin - dosing based on weight and dose of NPH. * Will continue to titrate NPH dosing for better control of prednisone induced hyperglycemia. * Prednisone dose decreased from 30mg to 20mg today, this should yield a small improvement in BSGs * Estimating total daily dose of insulin needed ~350-400 units/day PLAN FOR INPATIENT GLYCEMIC CONTROL: * Basal insulin * Lantus 42-50 units SQ BID (this is basically outpatient dosing) * Steroid/Prednisone induced hyperglycemia. Increase NPH to BID since once daily is not covering hyperglycemia from once daily prednisone. Additionally, pt is on BID premixed insulin (novolin 70/30) in addition to Lantus as an outpatient. * NPH 40 units SQ BIDM * Bolus insulin * NovoLog per scale ACHS or Q6hrs while NPO * Goal Range: Low 110 mg/dL - High 140 mg/dL * Correction Factor: 9 mg/dL/unit * Nutritional / Prandial insulin per carb ratio of 1 unit per 2 grams CHO consumed PLAN FOR DISCHARGE: * Patient is well controlled on regimen. Follow-up with PCP/endo provider. * Pt may require adjustment in AM dose of 70/30 if prednisone is continued post- discharge.
--- NOTE | 2017-07-15 10:14 | Progress Note ---
Subjective Date of Service: Jul 15, 2017. Subjective Pt evaluation today including: conversation w/ patient, physical exam, lab review, review of studies, review of inpatient medication list Saw/examined the patient in room 235 She is doing well, no chest pain, no palpitations Breathing much improved, minimal cough persists Problem List Medical Problems: (1) Atrial flutter with rapid ventricular response Status: Acute (2) Contusion of right shoulder Status: Acute (3) Facial abrasion Status: Acute (4) Hypotension Status: Acute (5) Rapid atrial fibrillation Status: Acute (6) Wound dehiscence Status: Acute Social History Problems: (1) Benign hypertension Status: Chronic (2) Bipolar disorder Status: Chronic Review of Systems Constitutional: No fever, No chills Respiratory: + cough, + sputum, + wheezing, + shortness of breath, No dyspnea on exertion, No dyspnea at rest, No hemoptysis Cardiac: No chest pain, No edema, No palpitations Medications Current Inpatient Medications Medications (Trade) Dose Ordered Sig/Vu Route Start Time Stop Time Status Last Admin Dose Admin Acetaminophen (Tylenol Tab) 650 mg Q4H PRN PO 07/07/17 18:00 08/06/17 17:59 07/15/17 09:16 650 MG Apixaban (Eliquis Tab) 5 mg BID PO 07/07/17 21:00 08/06/17 20:59 07/15/17 09:15 5 MG Atorvastatin Calcium (Lipitor Tab) 40 mg DAILY PO 07/08/17 09:00 08/07/17 08:59 07/15/17 09:14 40 MG Ferrous Sulfate (Feosol Tab) 325 mg BIDM PO 07/08/17 07:30 08/07/17 07:29 07/09/17 09:12 325 MG Salmeterol Xinafoate/ Fluticasone (Advair Diskus 500/50 Inh) 1 puff BID INH 07/07/17 21:00 08/06/17 20:59 07/15/17 09:16 1 PUFF Lamotrigine (Lamictal Tab) 100 mg HS PO 07/07/17 21:00 08/06/17 20:59 07/08/17 21:09 100 MG Montelukast Sodium (Singulair Tab) 10 mg DAILY PO 07/08/17 09:00 08/07/17 08:59 07/15/17 09:15 10 MG Nystatin (Mycostatin Powder) 1 appln TID EXT 07/07/17 21:00 08/06/17 20:59 07/15/17 09:26 1 APPLN Nystatin/ Triamcinolone Acetonide (Mycogen II Crm) 1 appln BID EXT 07/07/17 21:00 08/06/17 20:59 07/15/17 09:26 1 APPLN Pantoprazole Sodium (Protonix Tab) 40 mg HS PO 07/07/17 21:00 08/06/17 20:59 07/14/17 20:44 40 MG Tiotropium Riparius (Spiriva Handihaler Inhaler) 1 puff DAILY INH 07/08/17 09:00 08/07/17 08:59 07/15/17 09:17 1 PUFF Vitamin B Complex/ Vit C/Folic Acid (Nephrocaps) 1 cap DAILY PO 07/08/17 09:00 08/07/17 08:59 07/15/17 09:15 1 CAP Miscellaneous Information (Order Awaiting Action) 1 ea QS N/A 07/07/17 19:30 08/06/17 19:29 Magnesium Oxide (Mag-Ox Tab) 400 mg BID PO 07/07/17 21:00 08/06/17 20:59 07/15/17 09:15 400 MG Glucose (Glucose 40% Gel) 15-30 GRAMS 15 GRAMS... UD PRN PO 07/07/17 19:15 08/06/17 19:14 Glucose (Glucose Chew Tab) 4-8 Tablets 4 Tabl... UD PRN PO 07/07/17 19:15 08/06/17 19:14 Dextrose (Dextrose 50% 50ML Syringe) 25-50ML OF 50% DW IV FOR... UD PRN IV 07/07/17 19:15 08/06/17 19:14 Glucagon (Glucagon Inj) 1 mg UD PRN SQ 07/07/17 19:15 08/06/17 19:14 Miscellaneous (Iv Fluids Completed) 1 ea PRN PRN N/A 07/07/17 21:00 07/07/18 20:59 Insulin Aspart (novoLOG ASPART) SLIDING SCALE If C... ACHS SC 07/08/17 11:00 08/06/17 20:59 07/15/17 09:24 45 UNITS Sotalol HCl (Betapace Tab) 40 mg BID PO 07/11/17 21:00 08/08/17 08:59 07/15/17 09:16 40 MG Doxycycline Hyclate (Vibramycin Cap) 100 mg BID PO 07/11/17 14:45 07/18/17 14:44 07/15/17 09:17 100 MG Miscellaneous Information (Consult Glycemic Management Pharmacy) 1 ea UD PRN N/A 07/11/17 15:01 08/10/17 15:00 Lorazepam (Ativan Tab) 0.5 mg Q6H PRN PO 07/12/17 09:30 08/11/17 09:29 Diltiazem HCl (Cardizem Tab) 30 mg TID PO 07/12/17 14:00 08/11/17 13:59 07/15/17 09:14 30 MG Prednisone (PredniSONE TAB) 20 mg DAILY PO 07/15/17 09:00 08/13/17 08:59 07/15/17 09:15 20 MG Guaifenesin (Mucinex Contr Rel Tab) 600 mg Q12 PO 07/14/17 21:00 08/13/17 20:59 07/15/17 09:15 600 MG Levalbuterol (Xopenex Hfa Inhaler) 2 puffs QID PRN INH 07/14/17 11:15 08/13/17 11:14 Insulin Glargine (Lantus Solostar Pen) SEE PROTOCOL TE... BID SQ 07/14/17 21:00 08/06/17 20:59 07/15/17 09:24 50 UNITS Insulin Human NPH (novoLIN-N NPH) 40 units BIDM SC 07/15/17 08:00 08/14/17 07:59 07/15/17 09:25 40 UNITS Objective Vital Signs Date Time Temp Pulse Resp B/P (MAP) Pulse Ox O2 Delivery O2 Flow Rate FiO2 07/15/17 08:00 Room Air 07/15/17 07:30 36.4 52 18 114/70 (85) 93 CPAP 07/15/17 04:05 36.4 44 18 116/79 (91) 95 Room Air 07/15/17 04:00 Room Air 07/14/17 23:59 Room Air 07/14/17 23:40 36.5 62 20 119/75 (90) 94 Room Air 07/14/17 20:00 Room Air 07/14/17 20:00 36.9 60 18 121/58 (79) 95 Room Air 07/14/17 16:00 Room Air 07/14/17 15:53 36.7 78 20 92/64 (73) 93 Room Air 07/14/17 12:00 Room Air 07/14/17 11:42 36.5 90 24 110/71 (84) 93 Room Air Physical Exam General Appearance: no apparent distress Respiratory/Chest: no respiratory distress, no accessory muscle use, + wheezing Cardiovascular: regular rate, rhythm, no edema, no murmur Extremities: normal inspection, no pedal edema Neurologic/Psychiatric: no motor/sensory deficits, alert, normal mood/affect Laboratory Results Last 24 Hours Test 07/14/17 11:13 07/14/17 16:13 07/14/17 20:37 07/14/17 23:42 Bedside Glucose 264 mg/dl 257 mg/dl 332 mg/dl 267 mg/dl Test 07/15/17 03:20 07/15/17 05:52 07/15/17 06:28 Bedside Glucose 262 mg/dl 218 mg/dl White Blood Count 13.75 K/uL Red Blood Count 4.09 M/uL Hemoglobin 12.4 g/dL Hematocrit 37.3 % Mean Corpuscular Volume 91.2 fL Mean Corpuscular Hemoglobin 30.3 pg Mean Corpuscular Hemoglobin Concent 33.2 g/dl RDW Standard Deviation 47.0 fL RDW Coefficient of Variation 14.2 % Platelet Count 191 K/uL Mean Platelet Volume 10.8 fL Sodium Level 138 mmol/L Potassium Level 3.7 mmol/L Chloride Level 107 mmol/L Carbon Dioxide Level 27 mmol/L Anion Gap 4.0 mmol/L Blood Urea Nitrogen 24 mg/dl Creatinine 0.81 mg/dl Est Creatinine Clear Calc Drug Dose 93.4 ml/min Estimated GFR () 88.3 Estimated GFR (Non- 76.2 BUN/Creatinine Ratio 30.0 Random Glucose 213 mg/dl Calcium Level 8.7 mg/dl Magnesium Level 2.0 mg/dl Assessment and Plan This is a 67 year old morbidly obese female with a past medical history of paroxysmal atrial fibrillation on long-term anticoagulation, COPD, REENA on nocturnal CPAP, insulin dependent DM2, depression/anxiety, HLD, hx. of CVA - presents with tachycardia during respiratory treatment as outpatient - found to have A. Fib with RVR; continues to have productive cough, end expiratory wheezing and congestion. Paroxysmal Atrial Fibrillation presented with Rapid Ventricular Response 07/15 - back to NSR, with episodes of sinus bradycardia - denies any palpitations, chest pain; clinically stable - continue Sotalol and Diltiazem - further recommendations as per cardiology - continue Eliquis for anticoagulation 07/14 - in the setting of respiratory treatment, b-agonist use - patient was started on amiodarone, but due to QT prolongation, this was stopped and patient started on sotalol - patient is also on diltiazem for rate control and Eliquis for anticoagulation - had converted to sinus rhythm, but reverts back to A. Fib with breathing treatments - will stop nebulizers and taper down steroids in hopes of better atrial tachyarrhythmia control - appreciate cardiology input Acute Bronchitis Mild Acute COPD Exacerbation 07/15 - continue Spiriva, Advair, Xopenex inhaler as needed - continue prednisone 20mg today - finish doxycycline 7 day course - clinically improving 07/14 - patient presented with productive cough, wheezing - unlikely pneumonia; more likely URI vs. viral bronchitis - either way, will treat with a 7 day course of doxycycline - Xopenex nebulizers seems to be triggering the A. Fib - will stop all nebulizers and go back to inhalers - taper prednisone down to 20mg, quick taper - added Mucinex - continue Spiriva and Advair REENA on Nocturnal CPAP Insulin Dependent DM2 - well controlled as outpatient, with Ha1c = 7.3% - while inpatient and with steroid use, requiring a change in insulin regimen - appreciate glycemic control input - on discharge, back to her baseline insulin - tapering down steroids to prednisone 20mg daily for now Hx. of CVA - continue Lipitor - takes Eliquis, does not take aspirin; continue this Mood Disorder; Depression with Anxiety - continue home medications, Lamictal GERD - continue PPI DVT ppx - Eliquis FULL CODE
[2017-07-15 11:20] VITALS: BP 126/60; PULSE 60; TEMP 37; O2SAT 94
--- NOTE | 2017-07-15 11:48 | Cardiology Follow-Up ---
Subjective Subjective Date of Service: Jul 15, 2017. Pt evaluation today including: conversation w/ patient, physical exam, chart review, lab review, review of inpatient medication list Additional Details: The patient converted to normal sinus rhythm last evening. She has not had recurrence of her atrial arrhythmias overnight. Stopping the albuterol treatments as I believe has helped. Problem List Medical Problems: (1) Atrial flutter with rapid ventricular response Status: Acute (2) Contusion of right shoulder Status: Acute (3) Facial abrasion Status: Acute (4) Hypotension Status: Acute (5) Rapid atrial fibrillation Status: Acute (6) Wound dehiscence Status: Acute Social History Problems: (1) Benign hypertension Status: Chronic (2) Bipolar disorder Status: Chronic Review of Systems Constitutional: No fever, No chills Respiratory: + cough, + sputum, + wheezing, + shortness of breath, No dyspnea on exertion, No dyspnea at rest, No hemoptysis Cardiac: No chest pain, No edema, No palpitations Abdomen: No pain, No nausea, No vomiting, No diarrhea Musculoskeletal: No joint pain Objective Vital Signs Last Vital Signs Documentation Date Time Temp Pulse Resp B/P (MAP) Pulse Ox O2 Delivery O2 Flow Rate FiO2 07/15/17 11:20 37.0 60 18 126/60 (82) 94 Room Air 07/12/17 16:00 2.0 07/08/17 00:19 21 Physical Exam: General Appearance: no apparent distress Eyes: bilateral eyes normal inspection, bilateral eyes PERRL, bilateral eyes EOMI ENT: normal ENT inspection, hearing grossly normal, pharynx normal Neck: supple, no adenopathy, thyroid normal, no JVD, no carotid bruits, trachea midline Respiratory/Chest: no respiratory distress, no accessory muscle use, + wheezing Cardiovascular: regular rate, rhythm, no edema, no murmur Abdomen: normal bowel sounds, non tender, soft, no organomegaly, no pulsatile mass Extremities: normal inspection, no pedal edema Neurologic/Psychiatric: no motor/sensory deficits, alert, normal mood/affect Skin: normal color Lymphatic: no adenopathy Assessment and Plan This is a 66-year-old female remains in the hospital due to atrial fibrillation with RVR and the start of sotalol treatment. The patient is on a combination of diltiazem and sotalol. She is maintaining sinus rhythm and I think it has helped that she is no longer receiving albuterol treatments. I would recommend that we start discharge planning.
[2017-07-15 14:06] VITALS: Ht 165.1 cm; Wt 129.9 kg
[2017-07-15 16:21] VITALS: BP 111/56; PULSE 46; TEMP 36.7; O2SAT 96
[2017-07-15 19:52] VITALS: BP 121/79; PULSE 50; TEMP 36.6; O2SAT 95
[2017-07-15] MEDS: PANTOprazole SOD 40 MG TAB PO SCH (21:16)
[2017-07-15 23:26] VITALS: BP 153/82; PULSE 56; TEMP 36.3; O2SAT 91
[2017-07-16 03:51] VITALS: BP 145/82; PULSE 45; TEMP 36.4; O2SAT 94
[2017-07-16 06:53] LABS: HEMATOCRIT 37.5 % (37-47); HEMOGLOBIN 12.1 g/dL (12.0-16.0); MEAN CELL VOLUME 91.7 fL (80-100); MEAN CORPUSCULAR HEMOGLOBIN 29.6 pg (25-34); MEAN CORPUSCULAR HGB CONC 32.3 g/dl (32-36); PLATELET COUNT 173 K/uL (130-400); RED CELL DISTRIBUTION WIDTH CV 14.1 % (11.5-14.5); RED CELL DISTRIBUTION WIDTH SD 47.4 fL (36.4-46.3)
[2017-07-16 07:23] LABS: CALCIUM 8.8 mg/dl (8.5-10.1); CREATININE 0.78 mg/dl (0.60-1.20); POTASSIUM 3.9 mmol/L (3.5-5.1)
[2017-07-16 07:42] VITALS: BP 153/93; PULSE 51; TEMP 36.4; O2SAT 93
[2017-07-16] MEDS ORDERED: INSULIN HUMAN NPH SC SCH (07:45)
[2017-07-16] MEDS: FERROUS SULFATE 325 MG TAB PO SCH (08:18)
[2017-07-16] MEDS: APIXABAN 2.5 MG TAB PO SCH (08:19)
[2017-07-16] MEDS: SOTALOL HCL 80 MG TAB PO SCH (08:19)
[2017-07-16] MEDS: MAGNESIUM OXIDE 400 MG TAB PO SCH (08:20)
[2017-07-16] MEDS: NEPHROCAPS PO SCH (08:21)
[2017-07-16] MEDS: DOXYCYCLINE HYCLATE 100 MG CAP PO SCH (08:21)
[2017-07-16] MEDS: ATORVASTATIN 40 MG TAB PO SCH (08:21)
[2017-07-16] MEDS: MONTELUKAST SOD 10 MG TAB PO SCH (08:21)
[2017-07-16] MEDS: GUAIFENESIN 600 MG TABCR PO SCH (08:22)
[2017-07-16] MEDS: DILTIAZEM HCL 30 MG TAB PO SCH (08:22)
[2017-07-16] MEDS: INSULIN ASPART 100 UNITS/ML 3 ML PEN SC SCH ×2 (08:27→12:00)
[2017-07-16] MEDS: INSULIN GLARGINE SOLOSTAR 100 UNITS/ML 3 ML PEN SQ SCH (08:28)
[2017-07-16] MEDS: FLUTICASONE/SALMETEROL (ADVAIR) 500/50 INH 14 PUFF INH SCH (08:32)
[2017-07-16] MEDS: TIOTROPIUM BROMIDE 5 PUFF/90 MCG INH INH SCH (08:33)
[2017-07-16] MEDS: NYSTATIN/TRIAMCINOLONE CR 15 GM TUBE EXT SCH (08:35)
[2017-07-16] MEDS: NYSTATIN POWDER 15GM BTL EXT SCH (08:35)
--- NOTE | 2017-07-16 09:06 | Cardiology Follow-Up ---
Subjective Subjective Date of Service: Jul 16, 2017. Pt evaluation today including: conversation w/ patient, conversation w/ family , physical exam, chart review, review of studies, conversation w/ absence management consultant Problem List Medical Problems: (1) Atrial flutter with rapid ventricular response Status: Acute (2) Contusion of right shoulder Status: Acute (3) Facial abrasion Status: Acute (4) Hypotension Status: Acute (5) Rapid atrial fibrillation Status: Acute (6) Wound dehiscence Status: Acute Social History Problems: (1) Benign hypertension Status: Chronic (2) Bipolar disorder Status: Chronic Review of Systems Constitutional: No fever, No chills Respiratory: No dyspnea on exertion, No dyspnea at rest, No hemoptysis Cardiac: No chest pain, No edema, No palpitations Abdomen: No pain, No nausea, No vomiting, No diarrhea Musculoskeletal: No joint pain Objective Vital Signs Last Vital Signs Documentation Date Time Temp Pulse Resp B/P (MAP) Pulse Ox O2 Delivery O2 Flow Rate FiO2 07/16/17 07:42 36.4 51 18 153/93 (113) 93 Room Air 07/12/17 16:00 2.0 07/08/17 00:19 21 Physical Exam: General Appearance: no apparent distress Eyes: bilateral eyes normal inspection, bilateral eyes PERRL, bilateral eyes EOMI ENT: normal ENT inspection, hearing grossly normal, pharynx normal Neck: supple, no adenopathy, thyroid normal, no JVD, no carotid bruits, trachea midline Respiratory/Chest: no respiratory distress, no accessory muscle use, + wheezing Cardiovascular: regular rate, rhythm, no edema, no murmur Abdomen: normal bowel sounds, non tender, soft, no organomegaly, no pulsatile mass Extremities: normal inspection, no pedal edema Neurologic/Psychiatric: no motor/sensory deficits, alert, normal mood/affect Skin: normal color Lymphatic: no adenopathy Assessment and Plan This is a 67-year-old female with a history of asthma who presented with atrial fibrillation and RVR that was symptomatic. She has now been controlled for the past 36 hours on a combination of sotalol and diltiazem. She feels well and I would recommend at this point that she be discharged to outpatient follow-up. I will arrange follow-up with our office. Medications: Current Inpatient Medications Medications (Trade) Dose Ordered Sig/Vu Route Start Time Stop Time Status Last Admin Dose Admin Acetaminophen (Tylenol Tab) 650 mg Q4H PRN PO 07/07/17 18:00 08/06/17 17:59 07/15/17 23:21 650 MG Apixaban (Eliquis Tab) 5 mg BID PO 07/07/17 21:00 08/06/17 20:59 07/16/17 08:19 5 MG Atorvastatin Calcium (Lipitor Tab) 40 mg DAILY PO 07/08/17 09:00 08/07/17 08:59 07/16/17 08:21 40 MG Ferrous Sulfate (Feosol Tab) 325 mg BIDM PO 07/08/17 07:30 08/07/17 07:29 07/16/17 08:18 325 MG Salmeterol Xinafoate/ Fluticasone (Advair Diskus 500/50 Inh) 1 puff BID INH 07/07/17 21:00 08/06/17 20:59 07/16/17 08:32 1 PUFF Lamotrigine (Lamictal Tab) 100 mg HS PO 07/07/17 21:00 08/06/17 20:59 07/15/17 21:12 100 MG Montelukast Sodium (Singulair Tab) 10 mg DAILY PO 07/08/17 09:00 08/07/17 08:59 07/16/17 08:21 10 MG Nystatin (Mycostatin Powder) 1 appln TID EXT 07/07/17 21:00 08/06/17 20:59 07/16/17 08:35 1 APPLN Nystatin/ Triamcinolone Acetonide (Mycogen II Crm) 1 appln BID EXT 07/07/17 21:00 08/06/17 20:59 07/16/17 08:35 1 APPLN Pantoprazole Sodium (Protonix Tab) 40 mg HS PO 07/07/17 21:00 08/06/17 20:59 07/15/17 21:16 40 MG Tiotropium Naylor (Spiriva Handihaler Inhaler) 1 puff DAILY INH 07/08/17 09:00 08/07/17 08:59 07/16/17 08:33 1 PUFF Vitamin B Complex/ Vit C/Folic Acid (Nephrocaps) 1 cap DAILY PO 07/08/17 09:00 08/07/17 08:59 07/16/17 08:21 1 CAP Miscellaneous Information (Order Awaiting Action) 1 ea QS N/A 07/07/17 19:30 08/06/17 19:29 Magnesium Oxide (Mag-Ox Tab) 400 mg BID PO 07/07/17 21:00 08/06/17 20:59 07/16/17 08:20 400 MG Glucose (Glucose 40% Gel) 15-30 GRAMS 15 GRAMS... UD PRN PO 07/07/17 19:15 08/06/17 19:14 Glucose (Glucose Chew Tab) 4-8 Tablets 4 Tabl... UD PRN PO 07/07/17 19:15 08/06/17 19:14 Dextrose (Dextrose 50% 50ML Syringe) 25-50ML OF 50% DW IV FOR... UD PRN IV 07/07/17 19:15 08/06/17 19:14 Glucagon (Glucagon Inj) 1 mg UD PRN SQ 07/07/17 19:15 08/06/17 19:14 Miscellaneous (Iv Fluids Completed) 1 ea PRN PRN N/A 07/07/17 21:00 07/07/18 20:59 Insulin Aspart (novoLOG ASPART) SLIDING SCALE If C... ACHS SC 07/08/17 11:00 08/06/17 20:59 07/16/17 08:27 43 UNITS Sotalol HCl (Betapace Tab) 40 mg BID PO 07/11/17 21:00 08/08/17 08:59 07/16/17 08:19 40 MG Doxycycline Hyclate (Vibramycin Cap) 100 mg BID PO 07/11/17 14:45 07/18/17 14:44 07/16/17 08:21 100 MG Miscellaneous Information (Consult Glycemic Management Pharmacy) 1 ea UD PRN N/A 07/11/17 15:01 08/10/17 15:00 Lorazepam (Ativan Tab) 0.5 mg Q6H PRN PO 07/12/17 09:30 08/11/17 09:29 Diltiazem HCl (Cardizem Tab) 30 mg TID PO 07/12/17 14:00 08/11/17 13:59 07/16/17 08:22 30 MG Prednisone (PredniSONE TAB) 20 mg DAILY PO 07/15/17 09:00 08/13/17 08:59 07/16/17 08:18 20 MG Guaifenesin (Mucinex Contr Rel Tab) 600 mg Q12 PO 07/14/17 21:00 08/13/17 20:59 07/16/17 08:22 600 MG Levalbuterol (Xopenex Hfa Inhaler) 2 puffs QID PRN INH 07/14/17 11:15 08/13/17 11:14 Insulin Glargine (Lantus Solostar Pen) SEE PROTOCOL TE... BID SQ 07/14/17 21:00 08/06/17 20:59 07/16/17 08:28 55 UNITS Insulin Human NPH (novoLIN-N NPH) 50 units BIDM SC 07/16/17 07:45 08/15/17 07:44 07/16/17 08:28 50 UNITS Lab Results: Last 24 Hours Test 07/15/17 11:01 07/15/17 16:46 07/15/17 20:55 07/16/17 06:10 Bedside Glucose 248 mg/dl 219 mg/dl 274 mg/dl White Blood Count 12.10 K/uL Red Blood Count 4.09 M/uL Hemoglobin 12.1 g/dL Hematocrit 37.5 % Mean Corpuscular Volume 91.7 fL Mean Corpuscular Hemoglobin 29.6 pg Mean Corpuscular Hemoglobin Concent 32.3 g/dl RDW Standard Deviation 47.4 fL RDW Coefficient of Variation 14.1 % Platelet Count 173 K/uL Mean Platelet Volume 11.0 fL Sodium Level 138 mmol/L Potassium Level 3.9 mmol/L Chloride Level 106 mmol/L Carbon Dioxide Level 28 mmol/L Anion Gap 4.0 mmol/L Blood Urea Nitrogen 24 mg/dl Creatinine 0.78 mg/dl Est Creatinine Clear Calc Drug Dose 97.8 ml/min Estimated GFR () 92.5 Estimated GFR (Non- 79.8 BUN/Creatinine Ratio 30.3 Random Glucose 207 mg/dl Calcium Level 8.8 mg/dl Magnesium Level 1.9 mg/dl Test 07/16/17 06:23 Bedside Glucose 201 mg/dl
--- NOTE | 2017-07-16 09:33 | Progress Note ---
Subjective Date of Service: Jul 16, 2017. Subjective Pt evaluation today including: conversation w/ patient, physical exam, lab review, review of studies, review of inpatient medication list Saw/examined the patient in room 235 She is doing well today, cough is still present, but improving Denies any pain or palpitations Problem List Medical Problems: (1) Atrial flutter with rapid ventricular response Status: Acute (2) Contusion of right shoulder Status: Acute (3) Facial abrasion Status: Acute (4) Hypotension Status: Acute (5) Rapid atrial fibrillation Status: Acute (6) Wound dehiscence Status: Acute Social History Problems: (1) Benign hypertension Status: Chronic (2) Bipolar disorder Status: Chronic Review of Systems Respiratory: + cough, + sputum, No wheezing, No shortness of breath, No dyspnea on exertion Cardiac: No chest pain, No edema, No palpitations Abdomen: No pain, No nausea, No vomiting, No diarrhea, No constipation Heme: No abnormal bleeding/bruising Medications Current Inpatient Medications Medications (Trade) Dose Ordered Sig/Vu Route Start Time Stop Time Status Last Admin Dose Admin Acetaminophen (Tylenol Tab) 650 mg Q4H PRN PO 07/07/17 18:00 08/06/17 17:59 07/15/17 23:21 650 MG Apixaban (Eliquis Tab) 5 mg BID PO 07/07/17 21:00 08/06/17 20:59 07/16/17 08:19 5 MG Atorvastatin Calcium (Lipitor Tab) 40 mg DAILY PO 07/08/17 09:00 08/07/17 08:59 07/16/17 08:21 40 MG Ferrous Sulfate (Feosol Tab) 325 mg BIDM PO 07/08/17 07:30 08/07/17 07:29 07/16/17 08:18 325 MG Salmeterol Xinafoate/ Fluticasone (Advair Diskus 500/50 Inh) 1 puff BID INH 07/07/17 21:00 08/06/17 20:59 07/16/17 08:32 1 PUFF Lamotrigine (Lamictal Tab) 100 mg HS PO 07/07/17 21:00 08/06/17 20:59 07/15/17 21:12 100 MG Montelukast Sodium (Singulair Tab) 10 mg DAILY PO 4/4/18 09:00 08/07/17 08:59 07/16/17 08:21 10 MG Nystatin (Mycostatin Powder) 1 appln TID EXT 07/07/17 21:00 08/06/17 20:59 07/16/17 08:35 1 APPLN Nystatin/ Triamcinolone Acetonide (Mycogen II Crm) 1 appln BID EXT 07/07/17 21:00 08/06/17 20:59 07/16/17 08:35 1 APPLN Pantoprazole Sodium (Protonix Tab) 40 mg HS PO 07/07/17 21:00 08/06/17 20:59 07/15/17 21:16 40 MG Tiotropium [place] (Spiriva Handihaler Inhaler) 1 puff DAILY INH 07/08/17 09:00 08/07/17 08:59 07/16/17 08:33 1 PUFF Vitamin B Complex/ Vit C/Folic Acid (Nephrocaps) 1 cap DAILY PO 07/08/17 09:00 08/07/17 08:59 07/16/17 08:21 1 CAP Miscellaneous Information (Order Awaiting Action) 1 ea QS N/A 07/07/17 19:30 08/06/17 19:29 Magnesium Oxide (Mag-Ox Tab) 400 mg BID PO 07/07/17 21:00 08/06/17 20:59 07/16/17 08:20 400 MG Glucose (Glucose 40% Gel) 15-30 GRAMS 15 GRAMS... UD PRN PO 07/07/17 19:15 08/06/17 19:14 Glucose (Glucose Chew Tab) 4-8 Tablets 4 Tabl... UD PRN PO 07/07/17 19:15 08/06/17 19:14 Dextrose (Dextrose 50% 50ML Syringe) 25-50ML OF 50% DW IV FOR... UD PRN IV 07/07/17 19:15 08/06/17 19:14 Glucagon (Glucagon Inj) 1 mg UD PRN SQ 07/07/17 19:15 08/06/17 19:14 Miscellaneous (Iv Fluids Completed) 1 ea PRN PRN N/A 07/07/17 21:00 07/07/18 20:59 Insulin Aspart (novoLOG ASPART) SLIDING SCALE If C... ACHS SC 07/08/17 11:00 08/06/17 20:59 07/16/17 08:27 43 UNITS Sotalol HCl (Betapace Tab) 40 mg BID PO 07/11/17 21:00 08/08/17 08:59 07/16/17 08:19 40 MG Doxycycline Hyclate (Vibramycin Cap) 100 mg BID PO 07/11/17 14:45 07/18/17 14:44 07/16/17 08:21 100 MG Miscellaneous Information (Consult Glycemic Management Pharmacy) 1 ea UD PRN N/A 07/11/17 15:01 08/10/17 15:00 Lorazepam (Ativan Tab) 0.5 mg Q6H PRN PO 07/12/17 09:30 08/11/17 09:29 Diltiazem HCl (Cardizem Tab) 30 mg TID PO 07/12/17 14:00 08/11/17 13:59 07/16/17 08:22 30 MG Prednisone (PredniSONE TAB) 20 mg DAILY PO 07/15/17 09:00 08/13/17 08:59 07/16/17 08:18 20 MG Guaifenesin (Mucinex Contr Rel Tab) 600 mg Q12 PO 07/14/17 21:00 08/13/17 20:59 07/16/17 08:22 600 MG Levalbuterol (Xopenex Hfa Inhaler) 2 puffs QID PRN INH 07/14/17 11:15 08/13/17 11:14 Insulin Glargine (Lantus Solostar Pen) SEE PROTOCOL TE... BID SQ 07/14/17 21:00 08/06/17 20:59 07/16/17 08:28 55 UNITS Insulin Human NPH (novoLIN-N NPH) 50 units BIDM SC 07/16/17 07:45 08/15/17 07:44 07/16/17 08:28 50 UNITS Objective Vital Signs Date Time Temp Pulse Resp B/P (MAP) Pulse Ox O2 Delivery O2 Flow Rate FiO2 07/16/17 07:42 36.4 51 18 153/93 (113) 93 Room Air 07/16/17 04:00 Room Air 07/16/17 03:51 36.4 45 21 145/82 (103) 94 Room Air 07/15/17 23:59 Room Air 07/15/17 23:26 36.3 56 20 153/82 (105) 91 Room Air 07/15/17 20:00 Room Air 07/15/17 19:52 36.6 50 21 121/79 (93) 95 CPAP 07/15/17 16:21 36.7 46 18 111/56 (74) 96 CPAP 07/15/17 16:00 Room Air 07/15/17 12:00 Room Air 07/15/17 11:20 37.0 60 18 126/60 (82) 94 Room Air Physical Exam General Appearance: no apparent distress, + obese Respiratory/Chest: chest non-tender, lungs clear, normal breath sounds, no respiratory distress, no accessory muscle use Cardiovascular: regular rate, rhythm, no edema, no murmur Extremities: normal inspection, no pedal edema Neurologic/Psychiatric: no motor/sensory deficits, alert, normal mood/affect Laboratory Results Last 24 Hours Test 07/15/17 11:01 07/15/17 16:46 07/15/17 20:55 07/16/17 06:10 Bedside Glucose 248 mg/dl 219 mg/dl 274 mg/dl White Blood Count 12.10 K/uL Red Blood Count 4.09 M/uL Hemoglobin 12.1 g/dL Hematocrit 37.5 % Mean Corpuscular Volume 91.7 fL Mean Corpuscular Hemoglobin 29.6 pg Mean Corpuscular Hemoglobin Concent 32.3 g/dl RDW Standard Deviation 47.4 fL RDW Coefficient of Variation 14.1 % Platelet Count 173 K/uL Mean Platelet Volume 11.0 fL Sodium Level 138 mmol/L Potassium Level 3.9 mmol/L Chloride Level 106 mmol/L Carbon Dioxide Level 28 mmol/L Anion Gap 4.0 mmol/L Blood Urea Nitrogen 24 mg/dl Creatinine 0.78 mg/dl Est Creatinine Clear Calc Drug Dose 97.8 ml/min Estimated GFR () 92.5 Estimated GFR (Non- 79.8 BUN/Creatinine Ratio 30.3 Random Glucose 207 mg/dl Calcium Level 8.8 mg/dl Magnesium Level 1.9 mg/dl Test 07/16/17 06:23 Bedside Glucose 201 mg/dl Assessment and Plan This is a 67 year old morbidly obese female with a past medical history of paroxysmal atrial fibrillation on long-term anticoagulation, COPD, REENA on nocturnal CPAP, insulin dependent DM2, depression/anxiety, HLD, hx. of CVA - presents with tachycardia during respiratory treatment as outpatient - found to have A. Fib with RVR; continues to have productive cough, end expiratory wheezing and congestion. Paroxysmal Atrial Fibrillation presented with Rapid Ventricular Response 07/16 - patient is doing well, currently in NSR - appreciate cardiology input - plan for d/c home with Sotalol and Diltiazem - outpatient PCP and cardiology follow-up 07/15 - back to NSR, with episodes of sinus bradycardia - denies any palpitations, chest pain; clinically stable - continue Sotalol and Diltiazem - further recommendations as per cardiology - continue Eliquis for anticoagulation 07/14 - in the setting of respiratory treatment, b-agonist use - patient was started on amiodarone, but due to QT prolongation, this was stopped and patient started on sotalol - patient is also on diltiazem for rate control and Eliquis for anticoagulation - had converted to sinus rhythm, but reverts back to A. Fib with breathing treatments - will stop nebulizers and taper down steroids in hopes of better atrial tachyarrhythmia control - appreciate cardiology input Acute Bronchitis Mild Acute COPD Exacerbation 07/15 - continue Spiriva, Advair, Xopenex inhaler as needed - continue prednisone 20mg today - finish doxycycline 7 day course - clinically improving 07/14 - patient presented with productive cough, wheezing - unlikely pneumonia; more likely URI vs. viral bronchitis - either way, will treat with a 7 day course of doxycycline - Xopenex nebulizers seems to be triggering the A. Fib - will stop all nebulizers and go back to inhalers - taper prednisone down to 20mg, quick taper - added Mucinex - continue Spiriva and Advair REENA on Nocturnal CPAP Insulin Dependent DM2 - well controlled as outpatient, with Ha1c = 7.3% - while inpatient and with steroid use, requiring a change in insulin regimen - appreciate glycemic control input - on discharge, back to her baseline insulin - tapering down steroids to prednisone 20mg daily for now Hx. of CVA - continue Lipitor - takes Eliquis, does not take aspirin; continue this Mood Disorder; Depression with Anxiety - continue home medications, Lamictal GERD - continue PPI DVT ppx - Eliquis FULL CODE
--- NOTE | 2017-07-16 09:41 | Pharmacy Progress Note ---
Pharmacy Glycemic Short Note 2 Date of Service Jul 16, 2017. OUTPATIENT ANTIDIABETIC REGIMEN: * Basaglar 40 units BID + Humulin 70/30 ... 45 units in the morning and 40 units in the PM (CONFIRMED WITH PATIENT AND ALLSCRIPTS) plus Victozia * Total daily insulin dose is 465 units + Victoza Test 07/15/17 11:01 07/15/17 16:46 07/15/17 20:55 07/16/17 06:10 Bedside Glucose 248 mg/dl (70-90) 219 mg/dl (70-90) 274 mg/dl (70-90) Random Glucose 207 mg/dl (70-99) Test 07/16/17 06:23 Bedside Glucose 201 mg/dl (70-90) ASSESSMENT: 07/16/17 * Patient received 333 units of insulin yesterday, BSGs noted above * No change to causes of insulin resistance - prednisone dose remains the same * Fasting BSG elevated: will increase Lantus scale to 55 units instead of 50 units * Postprandial BSGs elevated: will increase NPH from 40->50 units BID since BSG elevation most likely from steroids 07/15/17 * 66yo T2DM female with significant insulin resistance- on high doses of insulin as an outpatient. High insulin needs are compounded by infection and daily prednisone dosing. * Pt was receiving ~125 units of insulin per day with near adequate control on - 07/11. However, daily prednsone started the evening of 07/11 which has deteriorated glycemic control despite aggressive insulin dosing. * Pt has been requiring 350+ units of insulin per day with suboptimal control. Most BSGs >250 mg/dl * Hesitant to increase Lantus dosing as steroids have their most profound effect on post-prandial hyperglycemia. Additionally, do not want large doses of 24hr insulin on board in the event that steroid dose is rapidly tapered. * Hyperglycemia secondary to once daily prednisone is best covered with the addition of NPH insulin - dosing based on weight and dose of NPH. * Will continue to titrate NPH dosing for better control of prednisone induced hyperglycemia. * Prednisone dose decreased from 30mg to 20mg today, this should yield a small improvement in BSGs * Estimating total daily dose of insulin needed ~350-400 units/day PLAN FOR INPATIENT GLYCEMIC CONTROL: * Basal insulin - increase * Lantus 42-55 units SQ BID (slightly higher than outpatient dosing) * NPH 50 units SQ BIDM (increase to account for steroid hyperglycemia) * Bolus insulin - no change * NovoLog per scale ACHS or Q6hrs while NPO * Goal Range: Low 110 mg/dL - High 140 mg/dL * Correction Factor: 9 mg/dL/unit * Nutritional / Prandial insulin per carb ratio of 1 unit per 2 grams CHO consumed PLAN FOR DISCHARGE: * Patient is well controlled on regimen. Follow-up with PCP/endo provider. * Pt may require adjustment in AM dose of 70/30 if prednisone is continued post- discharge.
[2017-07-16] MEDS ORDERED: DXY100 PO (09:48)
[2017-07-16] MEDS ORDERED: GFNSR600 PO (09:48)
[2017-07-16] MEDS ORDERED: BTP80 PO (09:48)
[2017-07-16] MEDS ORDERED: CRD30 PO (09:48)
[2017-07-16] MEDS ORDERED: PRD10 PO (09:48)
--- NOTE | 2017-07-16 09:50 | Discharge Instructions ---
Discharge Instructions Date of Service Jul 16, 2017. Admission Reason for Admission: Atrial Flutter With Rvr Discharge Discharge Diagnosis / Problem: Atrial Flutter (irregular heart rhythm), Bronchitis Discharge Goals Goal(s): Decrease discomfort, Improve function, Diagnostic testing, Therapeutic intervention Activity Recommendations Activity Limitations: resume your previous activity . Instructions / Follow-Up Instructions / Follow-Up Please follow up with Dr. Sabine Mosley on July 23 at 10:55AM * You will be on prednisone (steroid) 10mg once a day for two more days, then stop * You will be on doxycycline (antibiotic) 100mg twice a day for two more days, then stop * You can take Mucinex for the cough - stop taking this as the cough improves * Continue using your inhalers - Spiriva and Advair; use Xopenex inhaler as needed and try using this sparingly to avoid going into an irregular heart rhythm * You are to stop taking metoprolol altogether - you will now be on sotalol and diltiazem - take these as prescribed * Follow-up with cardiology - they will give you a call with a date/time Current Hospital Diet Patient's current hospital diet: Diabetes Type 2 Diet, AHA Diet (Heart Healthy) Discharge Diet Recommended Diet: AHA Diet (Heart Healthy), Diabetes Type 2 Diet Pending Studies Studies pending at discharge: no Laboratory Results Hemoglobin A1c Test 06/27/17 03:46 Range/Units Estimated Average Glucose 163 mg/dl Hemoglobin A1c 7.3 H 4.5-5.6 % Medical Emergencies . Who to Call and When: Medical Emergencies: If at any time you feel your situation is an emergency, please call 911 immediately. . Non-Emergent Contact Non-Emergency issues call your: Primary Care Provider, Filteration Operator . Past History Medical & Surgical History: (1) Rapid atrial fibrillation (2) COPD (chronic obstructive pulmonary disease) . "Provider Documentation" section prepared by Day Gray. .
--- NOTE | 2017-07-16 09:58 | Discharge Summary ---
Discharge Summary Date of Service Jul 16, 2017. Discharge Summary Admission Date: Jul 09, 2017 at 18:02 Discharge Date: Jul 16, 2017 Discharge Disposition: Home Principal Diagnosis: Paroxysmal Atrial Fibrillation presented with Rapid Ventricular Response Acute Bronchitis Mild Acute COPD Exacerbation REENA on Nocturnal CPAP Insulin Dependent DM2 Hx. of CVA Mood Disorder; Depression with Anxiety GERD Medication Reconciliation New Medications: Diltiazem HCl (Diltiazem HCl) 30 Mg Tab 30 MG PO TID for 30 Days, #90 TAB Doxycycline Hyclate (Doxycycline Hyclate) 100 Mg Cap 100 MG PO BID for 2 Days, #4 CAP Guaifenesin Ext Rel (Mucinex Ext Rel) 600 Mg Tabcr 600 MG PO Q12 for 10 Days, #20 TABS Prednisone (Prednisone) 10 Mg Tab 10 MG PO DAILY for 2 Days, #2 TAB Sotalol HCl (Sotalol HCl) 80 Mg Tab 40 MG PO BID for 30 Days, #30 TAB Continued Medications: Acetaminophen (Tylenol Arthitis Ext Rel) 650 Mg Ertab 1-2 TAB PO PRN PRN for RN, CAP Albuterol Hfa (Ventolin Hfa) 200 Puffs/71988 Mcg Aers 2 PUFFS INH Q6H PRN for SOB/Wheezing, #1 INHALER Albuterol Sulf (Proventil 0.083% 2.5MG/3ML) 2.5 Mg/3 Ml Nebu 2.5 MG INH BID PRN for SOB/Wheezing, EA Apixaban (Eliquis) 2.5 Mg Tab 5 MG PO BID for 30 Days, #120 TAB 2 Refills Atorvastatin (Lipitor) 40 Mg Tab 40 MG PO DAILY, TAB Cinnamon (Cinnamon) 500 Mg Tab 1000 MG PO BID Cranberry (Vaccinium Macrocarp (Cranberry Juice Extract) 1,000 Mg Cap 1000 MG PO BID Estrogens, Conjugated (Premarin) 14 Appln/30 Gm Cr 1 APPLN PV HS Ferrous Sulfate (Ferrous Sulfate) 325 Mg Tab 325 MG PO BID Fluticasone Prop/Salmeterol (Advair Diskus 500/50 60 Dose) 1 Ea Aerp 1 PUFF INH BID, INHALER Insulin Aspart Protamine & Asp (Novolog Mix 70/30) 1 Inj Inj 40 UNITS SC QPM, BTL Insulin Glargine (Basaglar Kwikpen) 100 Unit/Ml Inj 40 UNITS SQ BID Insulin Isophan/Regular (Novolin 70/30) Susp 45 UNITS SC QAM Ketoconazole (Topical) (Ketoconazole) 2 % Sha 1 APPLN TOP UD for 30 Days, #120 ML 1 Refill Lamotrigine (Lamictal) 200 Mg Tab 100 MG PO HS, #60 Levalbuterol Tartrate (Levalbuterol Tartrate Hfa) 45 Mcg/Act Aer 2 PUFFS INH Q4H PRN for Shortness of Breath Levocetirizine Dihydrochloride (Xyzal Allergy 24Hr) 5 Mg Tab 5 MG PO DAILY Liraglutide (Victoza) 18 Mg/3 Ml Inj 1 DOSE SQ DAILY Magnesium Oxide (Mg Supplement (Magnesium) 400 Mg Cap 400 MG PO BID Metformin Hcl (Glucophage) 1,000 Mg Tab 1000 MG PO BID, TAB Montelukast Sodium (Singulair) 10 Mg Tab 10 MG PO DAILY, TAB Multiple Vitamin (Multivitamin) 1 Tab Tab 1 TAB PO QAM, TAB Nystatin (Topical) (Nystop) 100,000 Unit/Gm Pow 1 DOSE TOP TID Nystatin-Triamcinolone (Nystatin/Triamcinolone) 1 Cre Cre 1 APPLN TOP BID, #15 GM 1 Refill Pantoprazole (Protonix) 40 Mg Tab 40 MG PO HS, 0 Refills Tiotropium [place] (Spiriva Handihaler) 30 Puff/540 Mcg Aerp 1 CAP INH DAILY, INHALER Triamcinolone Acetonide (Nasal (Nasacort Allergy 24Hr) 55 Mcg/Act Spr 2 SPRAY ANIBAL Vitamin B Cmplx/Vitc/Folic Ac (Nephrocaps) Cap 1 CAP PO DAILY for 30 Days, #30 CAP 11 Refills Discontinued Medications: Metoprolol Tartrate (Lopressor) 25 Mg Tab 25 MG PO Q12H for 30 Days, #60 TAB 2 Refills Admission Information HPI (per Admitting provider): Patient is a 66-year-old female with a past medical history of paroxysmal A. fib, DM II, COPD, history of CVA and other problems mentioned below who presents from respiratory therapy with tachycardia. Patient was recently admitted from 06/26-06/27 for A flutter with RVR with HR of 138 that spontaneously converted. Toprol dose was increased from 12.5mg BID to 25mg BID and patient was discharged home on Eliquis. A few days later, patient started to experience URI symptoms such as nasal congestion and productive cough with yellow sputum and was started on a steroid taper that she completed today. Has been taking PRN Xopenex nebs and albuterol more frequently than before. Endorses lightheadedness with exertion and palpitations but denies near-syncope , chest pain, SOB or LE swelling. States that she felt bloated after eating dairy over the weekend and had diarrhea that has since resolved. Has been eating /drinking less than normal the past few days and feels dehydrated. Denies fever , chills, headache, visual changes, abdominal pain, nausea, vomiting, dysuria, Echocardiogram from a few weeks ago shows EF: 60-65%, no wall motion abnormalities or significant valvular disease. Follows with Dr. Mosley for cardio. Physical Exam (per Admitting): General Appearance: WD/WN, no apparent distress, + pertinent finding ( Conversational ) Head: normocephalic, atraumatic Eyes: normal inspection, PERRL, sclerae normal ENT: normal ENT inspection, hearing grossly normal, pharynx normal (dry mucous membranes ) Neck: supple, no JVD, trachea midline Respiratory/Chest: chest non-tender, lungs clear, no respiratory distress, no accessory muscle use, + decreased breath sounds Cardiovascular: no edema, normal peripheral pulses, + tachycardia Abdomen/GI: non tender, soft, no organomegaly Back: normal inspection Extremities/Musculoskelatal: normal inspection, no calf tenderness, no pedal edema, non-tender Neurologic/Psych: no motor/sensory deficits, alert, normal mood/affect, oriented x 3 Skin: normal color, warm/dry Hospital Course This is a 67 year old morbidly obese female with a past medical history of paroxysmal atrial fibrillation on long-term anticoagulation, COPD, REENA on nocturnal CPAP, insulin dependent DM2, depression/anxiety, HLD, hx. of CVA - presents with tachycardia during respiratory treatment as outpatient - found to have A. Fib with RVR; continues to have productive cough, end expiratory wheezing and congestion. Paroxysmal Atrial Fibrillation presented with Rapid Ventricular Response 07/16 - patient is doing well, currently in NSR - appreciate cardiology input - plan for d/c home with Sotalol and Diltiazem - outpatient PCP and cardiology follow-up 07/15 - back to NSR, with episodes of sinus bradycardia - denies any palpitations, chest pain; clinically stable - continue Sotalol and Diltiazem - further recommendations as per cardiology - continue Eliquis for anticoagulation 07/14 - in the setting of respiratory treatment, b-agonist use - patient was started on amiodarone, but due to QT prolongation, this was stopped and patient started on sotalol - patient is also on diltiazem for rate control and Eliquis for anticoagulation - had converted to sinus rhythm, but reverts back to A. Fib with breathing treatments - will stop nebulizers and taper down steroids in hopes of better atrial tachyarrhythmia control - appreciate cardiology input Acute Bronchitis Mild Acute COPD Exacerbation 07/15 - continue Spiriva, Advair, Xopenex inhaler as needed - continue prednisone 20mg today - finish doxycycline 7 day course - clinically improving 07/14 - patient presented with productive cough, wheezing - unlikely pneumonia; more likely URI vs. viral bronchitis - either way, will treat with a 7 day course of doxycycline - Xopenex nebulizers seems to be triggering the A. Fib - will stop all nebulizers and go back to inhalers - taper prednisone down to 20mg, quick taper - added Mucinex - continue Spiriva and Advair REENA on Nocturnal CPAP Insulin Dependent DM2 - well controlled as outpatient, with Ha1c = 7.3% - while inpatient and with steroid use, requiring a change in insulin regimen - appreciate glycemic control input - on discharge, back to her baseline insulin - tapering down steroids to prednisone 20mg daily for now Hx. of CVA - continue Lipitor - takes Eliquis, does not take aspirin; continue this Mood Disorder; Depression with Anxiety - continue home medications, Lamictal GERD - continue PPI DVT ppx - Eliquis FULL CODE Total time spent on discharge = 45 minutes This includes examination of the patient, discharge planning, medication reconciliation, and communication with other providers. Discharge Instructions Please follow up with Dr. Sabine Mosley on July 23 at 10:55AM * You will be on prednisone (steroid) 10mg once a day for two more days, then stop * You will be on doxycycline (antibiotic) 100mg twice a day for two more days, then stop * You can take Mucinex for the cough - stop taking this as the cough improves * Continue using your inhalers - Spiriva and Advair; use Xopenex inhaler as needed and try using this sparingly to avoid going into an irregular heart rhythm * You are to stop taking metoprolol altogether - you will now be on sotalol and diltiazem - take these as prescribed * Follow-up with cardiology - they will give you a call with a date/time
[2017-07-16 11:37] VITALS: BP 159/70; PULSE 53; TEMP 36.9; O2SAT 94
== END 2017-07-16 13:20 | disposition home or self-care (01) | DRG 309 ==
LOC: EDBD 15:11 → C.EDB 15:12 → C.2T 17:45 → EDBEDREQ 17:49 → ENRESERV 17:54 → OBSVTOIN 07-09 18:02
PROVIDERS: ADMIT Internal Medicine; ATTEND Family Medicine
DX: I48.0 Paroxysmal atrial fibrillation (principal); J44.0 Chronic obstructive pulmonary disease with (acute) lower respiratory infection; E11.9 Type 2 diabetes mellitus without complications; J20.9 Acute bronchitis, unspecified; E78.5 Hyperlipidemia, unspecified; G47.33 Obstructive sleep apnea (adult) (pediatric); Z86.73 Personal history of transient ischemic attack (TIA), and cerebral infarction without residual deficits; I10 Essential (primary) hypertension; Z87.891 Personal history of nicotine dependence; Z79.4 Long term (current) use of insulin; Z79.84 Long term (current) use of oral hypoglycemic drugs; Z88.2 Allergy status to sulfonamides; Z88.1 Allergy status to other antibiotic agents; I95.9 Hypotension, unspecified; F41.8 Other specified anxiety disorders; Z88.0 Allergy status to penicillin; I48.92 Unspecified atrial flutter; K21.9 Gastro-esophageal reflux disease without esophagitis; E66.01 Morbid (severe) obesity due to excess calories; Z68.42 Body mass index [BMI] 45.0-49.9, adult

== ENCOUNTER 2017-11-04 09:58 | Emergency (ER) | payer OTHER ==
[~2017-11-04 09:58] MED LIST changes: +B-CO1CAP17 PO; +BTP80 PO; +CRAN1000 PO; +CRD30 PO; +DXY100 PO; +FERR325T5 PO; +GFNSR600 PO; +INSU100I23 SQ; +INSU70IN2 SC; +KETO2SHA TOP; +LEVA45AE INH; -LORA1TAB13 PO; -LPR25 PO; +MAGN1CAP2 PO; +METF1000 PO; +MONT1TAB3 PO; +NYST100010 TOP; +NYSTCRE32 TOP; -OMEG10007 PO; -OXGN; +PANT40TA PO; +PRD10 PO; +PRMVC PV; +SPRIN/30 INH; +VNTHFA/IN INH
[2017-11-04 10:04] VITALS: TEMP 36.9; Ht 165.1 cm
--- NOTE | 2017-11-04 10:45 | DIAGNOSTIC IMAGING REPORT ---
SINGLE VIEW CHEST CLINICAL HISTORY: Weakness. Change in mental status. FINDINGS: An AP, portable, upright chest radiograph is compared to study dated 07/11/2017. Correlation is with chest CT dated 05/17/2014. The examination is degraded by portable technique and patient rotation. The heart is enlarged and there is prominence of the central pulmonary vessels. Emphysema and chronic interstitial thickening are similar to previous. Patchy airspace opacities are present at both lung bases. No large pleural effusion or pneumothorax is seen. The skeletal structures are osteopenic. The bony thorax is grossly intact. IMPRESSION: 1. Cardiomegaly with prominence of the central pulmonary vessels. Correlate clinically for evidence of mild congestive change. 2. Emphysema. 3. Bibasilar airspace opacities likely represent atelectasis. Correlate clinically for evidence of a superimposed infectious/inflammatory pneumonitis. Electronically signed by: Semaj Gonzalez M.D. 11/04/2017 10:43 AM Dictated Date/Time: 11/04/2017 10:42 AM
[2017-11-04 11:05] LABS: BASO % 0.5 %; BASO ABS # 0.05 K/uL (0-0.2); EOS ABS # 0.31 K/uL (0-0.5); HEMATOCRIT 41.7 % (37-47); HEMOGLOBIN 13.7 g/dL (12.0-16.0); IG# 0.03 K/uL (0.00-0.02); LYMPH % 31.7 %; LYMPH ABS # 3.29 K/uL (1.2-3.4); MEAN CELL VOLUME 91.2 fL (80-100); MEAN CORPUSCULAR HGB CONC 32.9 g/dl (32-36); MEAN PLATELET VOLUME 10.9 fL (7.4-10.4); MONO % 7.9 %; MONO ABS # 0.82 K/uL (0.11-0.59); NEUT % 56.6 %; NEUT ABS # 5.88 K/uL (1.4-6.5); PLATELET COUNT 220 K/uL (130-400); RED CELL DISTRIBUTION WIDTH SD 46.2 fL (36.4-46.3); WHITE BLOOD COUNT 10.38 K/uL (4.8-10.8)
[2017-11-04] MEDS ORDERED: INSU70IN2 SC ×2 (11:21)
[2017-11-04] MEDS ORDERED: INSU100I23 SQ (11:21)
[2017-11-04 11:33] LABS: ALBUMIN 3.8 gm/dl (3.4-5.0); ALKALINE PHOSPHATASE 101 U/L (45-117); ALT/SGPT 35 U/L (12-78); AST/SGOT 24 U/L (15-37); BLOOD UREA NITROGEN 15 mg/dl (7-18); CALCIUM 9.3 mg/dl (8.5-10.1); CARBON DIOXIDE 26 mmol/L (21-32); CREATININE 0.76 mg/dl (0.60-1.20); GLUCOSE 160 mg/dl (70-99); SODIUM 137 mmol/L (136-145); TOTAL PROTEIN 7.3 gm/dl (6.4-8.2)
[2017-11-04] MEDS ORDERED: DILT60TA PO (12:17)
[2017-11-04 12:29] VITALS: BP 140/90; PULSE 81; O2SAT 94
--- NOTE | 2017-11-04 13:58 | Pharmacy Progress Note ---
ED Pharmacist Progress Note Date of Service: Nov 04, 2017. Received a call from [facility] pharmacist asking for a daily limit for the diltiazem prescriptions 1/2 30mg tab as needed for palpitations. Discussed with Dr. Miles, the prescribing provider, and a max daily of 3 doses (15mg) was decided and conveyed to the pharmacist.
--- NOTE | 2017-11-04 17:16 | EMERGENCY ROOM VISIT NOTE ---
History Report prepared by Mike: Gregoria De Paz Under the Supervision of: Dr. Semaj Miles M.D. First contact with patient: 10:11 Chief Complaint: TACHYCARDIA Stated Complaint: NEW MEDICATION FAST HEART BEAT History of Present Illness The patient is a 67 year old female who presents to the Emergency Room with complaints of intermittent palpitations over the last week. She reports feeling fluttering with the palpitations and reports having some shortness of breath with the episodes. The patient denies having any chest pain with the episodes. She states that her most recent episode was about 4 hours prior to arrival, but denies feeling the palpitations currently. The patient states that her episodes last for up to 4 hours. She states that she has a heart rate monitor which she states showed her heart rate was at 119 and 135 earlier this morning, but states that she does not think that it has been working correctly. The patient states that she has been under a lot of stress since October 07 and that she was feeling fine until about a week ago. She reports that she was here in July for her atrial fibrillation and that she has been on Eliquis and Sotalol since, and states that she has not missed any dosages. She reports that she is no longer on Diltiazem. 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 Source of History: patient Onset: over the last week Position: other (generalized ) Quality: other (palpitations ) Timing: intermittent Associated Symptoms: + SOB, No chest pain Review of Systems See HPI for pertinent positives & negatives. A total of 10 systems reviewed and were otherwise negative. Past Medical & Surgical Medical Problems: (1) Arthritis (2) COPD (chronic obstructive pulmonary disease) (3) Diabetes mellitus, type II (4) H/O: CVA (cerebrovascular accident) (5) HLD (hyperlipidemia) (6) Mood disorder (7) REENA (obstructive sleep apnea) (8) Paroxysmal atrial fibrillation (9) RBBB Social History Problems: (1) Benign hypertension (2) Bipolar disorder Family History Diabetes mellitus Social History Smoking Status: Former Smoker Alcohol Use: none Marital Status: Housing Status: lives with family Occupation Status: unemployed Current/Historical Medications Scheduled Apixaban (Eliquis), 5 MG PO BID Atorvastatin (Lipitor), 40 MG PO DAILY Cinnamon (Cinnamon), 1,000 MG PO BID Cranberry (Vaccinium Macrocarp (Cranberry Juice Extract), 1,000 MG PO BID Diltiazem HCl (Diltiazem HCl), 30 MG PO TID Diltiazem Hcl (Diltiazem Hcl), 30 MG PO DIRECTED Doxycycline Hyclate (Doxycycline Hyclate), 100 MG PO BID Estrogens, Conjugated (Premarin), 1 APPLN PV HS Ferrous Sulfate (Ferrous Sulfate), 325 MG PO BID Fluticasone Prop/Salmeterol (Advair Diskus 500/50 60 Dose), 1 PUFF INH BID Guaifenesin Ext Rel (Mucinex Ext Rel), 600 MG PO Q12 Insulin Glargine (Basaglar Kwikpen), 60 UNITS SQ BID Insulin Human Isophan/Regular (Novolin 70/30), 45 UNITS SC before breakfast Insulin Human Isophan/Regular (Novolin 70/30), 45 UNITS SC before supper Ketoconazole (Topical) (Ketoconazole), 1 APPLN TOP UD Lamotrigine (Lamictal), 100 MG PO HS Levocetirizine Dihydrochloride (Xyzal Allergy 24Hr), 5 MG PO DAILY Liraglutide (Victoza), 1 DOSE SQ DAILY Magnesium Oxide (Mg Supplement (Magnesium), 400 MG PO BID Metformin Hcl (Glucophage), 1,000 MG PO BID Montelukast Sodium (Singulair), 10 MG PO DAILY Multiple Vitamin (Multivitamin), 1 TAB PO QAM Nystatin (Topical) (Nystop), 1 DOSE TOP TID Nystatin-Triamcinolone (Nystatin/Triamcinolone), 1 APPLN TOP BID Pantoprazole (Protonix), 40 MG PO HS Prednisone (Prednisone), 10 MG PO DAILY Sotalol HCl (Sotalol HCl), 40 MG PO BID Tiotropium [place] (Spiriva Handihaler), 1 CAP INH DAILY Vitamin B Cmplx/Vitc/Folic Ac (Nephrocaps), 1 CAP PO DAILY Scheduled PRN Acetaminophen (Tylenol Arthitis Ext Rel), 1-2 TAB PO PRN PRN for RN Albuterol Hfa (Ventolin Hfa), 2 PUFFS INH Q6H PRN for SOB/Wheezing Albuterol Sulf (Proventil 0.083% 2.5MG/3ML), 2.5 MG INH BID PRN for SOB/Wheezing Levalbuterol Tartrate (Levalbuterol Tartrate Hfa), 2 PUFFS INH Q4H PRN for Shortness of Breath Miscellaneous Medications Triamcinolone Acetonide (Nasal (Nasacort Allergy 24Hr), 2 SPRAY ANIBAL Allergies Coded Allergies: Cephalosporins (Verified Allergy, Intermediate, RASH, 06/26/17) Replaces KEFUROX 1.5 G Sulfa Antibiotics (Verified Allergy, Intermediate, "Sulfa Drugs = rash", ) Terconazole (Verified Allergy, Intermediate, ITCHING, BURNING, 06/26/17) Penicillin G (Verified Allergy, Mild, RASH, 06/26/17) Amoxicillin (Verified Allergy, Unknown, UNKNOWN, 06/26/17) Clarithromycin (Verified Allergy, Unknown, UNKNOWN, 06/26/17) Clavulanic Acid (Verified Allergy, Unknown, UNKNOWN, 06/26/17) Adhesives (Verified Adverse Reaction, Mild, BAND-AIDS = SKIN IRRITATION, ) Physical Exam Vital Signs Date Time Temp Pulse Resp B/P (MAP) Pulse Ox O2 Delivery O2 Flow Rate FiO2 11/04/17 12:29 81 18 140/90 94 11/04/17 11:58 82 16 11/04/17 11:28 87 23 94 11/04/17 11:02 93 Room Air 11/04/17 11:01 90 23 131/79 92 Room Air 11/04/17 11:00 131/79 11/04/17 10:59 91 11/04/17 10:58 91 23 11/04/17 10:04 36.9 94 18 138/84 96 Room Air Physical Exam GENERAL: Patient is in no acute distress. HEENT: No acute trauma, normocephalic atraumatic, mucous membranes moist, no nasal congestion, no scleral icterus. NECK: No stridor, no adenopathy, no meningismus, trachea is midline. LUNGS: Clear to auscultation bilaterally, no wheeze, no rhonchi, breath sounds equal. HEART: Without murmurs gallops or rubs, regular rate and rhythm. ABDOMEN: Soft, nontender, bowel sounds positive, no hernias, no peritonitis. EXTREMITIES: No cyanosis, full range of motion of all the joints without pain or difficulty, no signs for acute trauma. Mild bilateral pedal edema. NEUROLOGIC: Oriented x 3, no acute motor or sensory deficits, no focal weakness. SKIN: No rash, no jaundice, no diaphoresis. Medical Decision & Procedures ER Provider Diagnostic Interpretation: Radiology results as stated below per my review and radiologist interpretation: SINGLE VIEW CHEST CLINICAL HISTORY: Weakness. Change in mental status. FINDINGS: An AP, portable, upright chest radiograph is compared to study dated 07/11/2017. Correlation is with chest CT dated 05/17/2014. The examination is degraded by portable technique and patient rotation. The heart is enlarged and there is prominence of the central pulmonary vessels. Emphysema and chronic interstitial thickening are similar to previous. Patchy airspace opacities are present at both lung bases. No large pleural effusion or pneumothorax is seen. The skeletal structures are osteopenic. The bony thorax is grossly intact. IMPRESSION: 1. Cardiomegaly with prominence of the central pulmonary vessels. Correlate clinically for evidence of mild congestive change. 2. Emphysema. 3. Bibasilar airspace opacities likely represent atelectasis. Correlate clinically for evidence of a superimposed infectious/inflammatory pneumonitis. Electronically signed by: Semaj Gonzalez M.D. 11/04/2017 10:43 AM Dictated Date/Time: 11/04/2017 10:42 AM Laboratory Results 11/04/17 10:30 Red Blood Count 4.57, Mean Corpuscular Volume 91.2, Mean Corpuscular Hemoglobin 30.0, Mean Corpuscular Hemoglobin Concent 32.9, Mean Platelet Volume 10.9, Neutrophils (%) (Auto) 56.6, Lymphocytes (%) (Auto) 31.7, Monocytes (%) (Auto) 7.9, Eosinophils (%) (Auto) 3.0, Basophils (%) (Auto) 0.5, Neutrophils # (Auto) 5.88, Lymphocytes # (Auto) 3.29, Monocytes # (Auto) 0.82, Eosinophils # (Auto) 0.31, Basophils # (Auto) 0.05 11/04/17 10:30 Test 11/04/17 10:30 11/04/17 11:45 White Blood Count 10.38 K/uL (4.8-10.8) Red Blood Count 4.57 M/uL (4.2-5.4) Hemoglobin 13.7 g/dL (12.0-16.0) Hematocrit 41.7 % (37-47) Mean Corpuscular Volume 91.2 fL (80-100) Mean Corpuscular Hemoglobin 30.0 pg (25-34) Mean Corpuscular Hemoglobin Concent 32.9 g/dl (32-36) Platelet Count 220 K/uL (130-400) Mean Platelet Volume 10.9 fL (7.4-10.4) Neutrophils (%) (Auto) 56.6 % Lymphocytes (%) (Auto) 31.7 % Monocytes (%) (Auto) 7.9 % Eosinophils (%) (Auto) 3.0 % Basophils (%) (Auto) 0.5 % Neutrophils # (Auto) 5.88 K/uL (1.4-6.5) Lymphocytes # (Auto) 3.29 K/uL (1.2-3.4) Monocytes # (Auto) 0.82 K/uL (0.11-0.59) Eosinophils # (Auto) 0.31 K/uL (0-0.5) Basophils # (Auto) 0.05 K/uL (0-0.2) RDW Standard Deviation 46.2 fL (36.4-46.3) RDW Coefficient of Variation 14.0 % (11.5-14.5) Immature Granulocyte % (Auto) 0.3 % Immature Granulocyte # (Auto) 0.03 K/uL (0.00-0.02) Anion Gap 8.0 mmol/L (3-11) Estimated GFR () 95.4 Estimated GFR (Non- 82.3 BUN/Creatinine Ratio 20.4 (10-20) Calcium Level 9.3 mg/dl (8.5-10.1) Magnesium Level 1.8 mg/dl (1.8-2.4) Total Bilirubin 0.6 mg/dl (0.2-1) Aspartate Amino Transf (AST/SGOT) 24 U/L (15-37) Alanine Aminotransferase (ALT/SGPT) 35 U/L (12-78) Alkaline Phosphatase 101 U/L (45-117) Troponin I < 0.015 ng/ml (0-0.045) Total Protein 7.3 gm/dl (6.4-8.2) Albumin 3.8 gm/dl (3.4-5.0) Globulin 3.5 gm/dl (2.5-4.0) Albumin/Globulin Ratio 1.1 (0.9-2) Thyroid Stimulating Hormone (TSH) 1.260 uIu/ml (0.300-4.500) Urine Color YELLOW Urine Appearance CLEAR (CLEAR) Urine pH 5.0 (4.5-7.5) Urine Specific [place] 1.017 (1.000-1.030) Urine Protein NEG (NEG) Urine Glucose (UA) NEG (NEG) Urine Ketones NEG (NEG) Urine Occult Blood NEG (NEG) Urine Nitrite NEG (NEG) Urine Bilirubin NEG (NEG) Urine Urobilinogen NEG (NEG) Urine Leukocyte Esterase NEG (NEG) Laboratory results reviewed by me. ECG Per My Interpretation Indication: palpitations Rate (beats per minute): 87 Rhythm: normal sinus Findings: RBBB, other (no ST elevation) Change: sinus rhythm has replace afib ED Course 1014: The patient was evaluated in room B4B. A complete history and physical exam was performed. 1231: Discussed the patient's case with Dr. Sukhdeep Beltre Cardiology who said to give the patient Cardizem as needed to take home. Dr. Rivera said that he will see the patient in his office. 1235: Reevaluated the patient. Discussed results and discharge instructions: She verbalized understanding and agreement. The patient is ready for discharge. Medical Decision The patient is a 67 year old female who presents to the ED with complaints of palpitations. Differential diagnoses considered include atrial fibrillation or atrial flutter, SVT, VT, anxiety, stress, anemia, electrolyte imbalance, thyroid disorder, and UTI. There is no leukocytosis or concerning anemia. No significant electrolyte abnormality, kidney failure or hepatitis. The patient appears to be in a euthyroid state. Chest film shows some likely chronic findings, no pneumonia or true CHF. EKG shows a sinus rhythm, no acute ischemic change. Cardiac enzyme testing 1 is not consistent with acute cardiac injury. Urinalysis does not show evidence for infection. The patient is in a sinus rhythm at present. I did speak with cardiology. They suggested adding on some as needed diltiazem for her palpitations. She is going to follow with them in the office later today. If things are worsening, she can return. She was felt stable for discharge. She likely is having bouts of atrial fibrillation, she understands. She will continue her anticoagulation with Eliquis. Medication Reconcilliation Current Medication List: was personally reviewed by me Blood Pressure Screening Patient's blood pressure: Elevated blood pressure Blood pressure disposition: Referred to PCP Consults Time Called: 1220 Consulting Physician: Dr. Rohit Beltre Cardiology Returned Call: 1231 Discussed the patient's case with Dr. Sukhdeep Beltre Cardiology who said to give the patient Cardizem as needed to take home. Dr. Rivera said that he will see the patient in his office. Impression Primary Impression: Palpitations Additional Impression: History of atrial fibrillation Scribe Attestation The scribe's documentation has been prepared under my direction and personally reviewed by me in its entirety. I confirm that the note above accurately reflects all work, treatment, procedures, and medical decision making performed by me. Departure Information Dispostion Home / Self-Care Prescriptions Diltiazem Hcl (DILTIAZEM HCL) 60 Mg Tab 30 MG PO DIRECTED, #15 TAB 2 Refills use 30 mg (1/2 tab) for episodes of palpitations Prov: Semaj Miles M.D. 11/04/17 Referrals Sabine Mosley D.O. (PCP) Stone Rivera D.O. Forms HOME CARE DOCUMENTATION FORM, IMPORTANT VISIT INFORMATION, WORK / SCHOOL INSTRUCTIONS Patient Instructions My [facility] Additional Instructions report to the cardiology office now use the diltiazem as needed for palpitations lab testing today was all ok return if worsening or if you have chest pain Problem Qualifiers
== END 2017-11-04 12:45 | disposition home or self-care (01) ==
LOC: C.EDB 10:00
DX: R00.2 Palpitations (principal); R03.0 Elevated blood-pressure reading, without diagnosis of hypertension; R60.0 Localized edema; I48.0 Paroxysmal atrial fibrillation; Z79.01 Long term (current) use of anticoagulants; E78.5 Hyperlipidemia, unspecified; J44.9 Chronic obstructive pulmonary disease, unspecified; E11.9 Type 2 diabetes mellitus without complications; Z79.4 Long term (current) use of insulin; Z87.891 Personal history of nicotine dependence; Z88.1 Allergy status to other antibiotic agents; Z88.2 Allergy status to sulfonamides; Z88.8 Allergy status to other drugs, medicaments and biological substances; Z88.0 Allergy status to penicillin

== ENCOUNTER 2018-06-14 16:10 | Observation (INO) ==
[2018-06-14] MEDS ORDERED: SODIUM CHLORIDE 0.9% 500 ML IV SCH (17:00)
--- NOTE | 2018-06-14 17:10 | XRay Report ---
XR chest 1V portable CLINICAL HISTORY: Chest Pain dyspnea COMPARISON STUDY: 03/15/2018 FINDINGS: Mild chronic bilateral interstitial prominence. No well-defined focal infiltrate. Minimal c hronic atelectasis right lung base. Pulmonary apices are clear. IMPRESSION: Chronic change. No acute process. The above report was generated using voice recognition software. It may contain grammatical, syntax or spelling errors. Electronically signed by: Anup Mcmullen M.D. 06/14/2018 5:09 PM
[2018-06-14 17:23] LABS: Basophils # (auto) 0.06 K/uL (0-0.2); Basophils % (auto) 0.6 %; Eosinophils # (auto) 0.47 K/uL (0-0.5); Eosinophils % (auto) 4.4 %; Hematocrit (blood only) 40.7 % (37-47); Hemoglobin 13.6 g/dL (12.0-16.0); Immature Granulocytes # (auto) 0.04 K/uL (0.00-0.02); Immature Granulocytes % (auto) 0.4 %; Lymphocytes # (auto) 2.97 K/uL (1.2-3.4); Mean Corpuscular Hgb Conc 33.4 g/dL (32-36); Mean Corpuscular Volume 90.4 fL (80-100); Mean Platelet Volume 10.4 fL (7.4-10.4); Monocytes # (auto) 0.91 K/uL (0.11-0.59); Monocytes % (auto) 8.6 %; Neutrophils # (auto) 6.14 K/uL (1.4-6.5); Platelet Count 218 K/uL (130-400); RDW Coefficient of Variation 14.3 % (11.5-14.5); RDW Standard Deviation 46.9 fL (36.4-46.3); White Blood Count 10.59 K/uL (4.8-10.8)
[2018-06-14 17:40] LABS: Appearance Urine Turbid (Clear); Bilirubin Urine Negative (Negative); Blood Urine Negative (Negative); Cast Urine Automated 0 /lpf (0-5); Color Urine Yellow; Epithelial Cell Urine Auto >30 /lpf (0-5); Glucose Urine UA Negative (Negative); Ketones Urine Negative (Negative); Leukocyte Esterase Urine Negative (Negative); Nitrite Urine Negative (Negative); Protein Urine Negative (Negative); Specific Gravity Urine 1.018 (1.000-1.030); Urobilinogen Urine Negative (Negative)
[2018-06-14 17:41] LABS: Alanine Aminotransferase 35 U/L (12-78); Albumin Level 3.8 gm/dl (3.4-5.0); Aspartate Aminotransferase 19 U/L (15-37); BUN Creatinine Ratio 20.5 (10-20); Blood Urea Nitrogen 13 mg/dl (7-18); Calcium 9.3 mg/dl (8.5-10.1); Carbon Dioxide 25 mmol/L (21-32); Chloride 104 mmol/L (98-107); Creatinine Clr Calc Pharmacy 119.5 ml/min; Est GFR (African American) 109.1; Est GFR (Non-African American) 94.1; Glucose 138 mg/dl (70-99); Sodium 137 mmol/L (136-145)
[2018-06-14 17:48] LABS: Alkaline Phosphatase 113 U/L (45-117); Bilirubin,Total 0.5 mg/dl (0.2-1); Creatine Kinase 295 U/L (26-192); Creatine Kinase MB 4.8 ng/ml (0.5-3.6); Globulin 3.8 gm/dl (2.5-4.0); NT Pro B Type Natriuretic Pept 35 pg/ml (0-900); Total Protein 7.6 gm/dl (6.4-8.2); Troponin I < 0.015 ng/ml (0-0.045)
[2018-06-14 17:55] LABS: Bacteria Urine Automated 2+ (Negative); RBC Urine Automated 0-4 /hpf (0-4)
--- NOTE | 2018-06-14 19:49 | History & Physical Report ---
Date of Service June 14, 2018 Assessment & Plan (1) Palpitations: (2) Paroxysmal atrial fibrillation: Patient is a 67yo F with a PMH of paroxysmal A. fib (on anticoagulation), DM II, COPD, history of CVA and other problems mentioned below who presents with palpitations. -Possible that patient spontaneously converted from A Fib to NSR prior to arrival, still feeling fatigued and anxious -EKG with NSR at 96 bpm, RBBB (chronic) -Echo from June 2017 with normal EV, no wall motion abnormalities -Continue home diltiazem, sotalol -Eliquis for anticoagulation -Telemetry -Repeat EKG in AM (3) Diabetes mellitus, type II: Most recent a1c of 6.6 in March 2018 -Hold victoza, metformin, 70/30 insulin while in-patient -Continue Lantus 40U BID with tight correction factor and CHO ratio -BSG checks AC HS -Diabetic diet (4) COPD (chronic obstructive pulmonary disease): -At baseline, no SOB, wheezing -Cont Spiriva, Advair, singulair as scheduled -Xopenex inhaler PRN (5) Mood disorder: Continue Lamictal, Ativan PRN DVT Ppx: Eliquis Code status: FULL PCP: Marion Mosley Dispo: Observation med tele. Plan to return home once medically stable. Patient seen in collaboration with Dr. Steward. Please see addendum. History of Present Illness Chief Complaint: palpitations Primary Care Provider: Sabine Mosley Patient is a 67yo F with a PMH of paroxysmal A. fib (on anticoagulation), DM II, COPD, history of CVA and other problems mentioned below who presents with palpit ations. Patient woke up during the night and felt her heart racing and thought she was in A Fib. [place] like she could not catch her breath and had heaviness in left shoulder. Denies lightheadedness, dizziness or chest pain. Took her morning dose of diltiazem and sotolol prior to arrival in ED. Upon arrival, patient was found to be in normal sinus rhythm with EKG of HR of 96. CXR unremarkable. No el ectrolyte changes noted. Has not been consuming caffeine or alcohol. Feels tired now and anxious that arrythmia will return once she goes home. Denies fever, chills, headache, chest pain, SOB, nausea, vomiting, abdominal pain, dysuria, diarrhea or constipation. Allergies Allergy/AdvReac Type Severity Reaction Status Date / Time Cephalosporins Allergy Intermediate RASH Verified 06/14/18 17:30 Sulfa (Sulfonamide Allergy Intermediate "Sulfa Verified 06/14/18 17:30 Antibiotics) Drugs = rash" terconazole Allergy Intermediate ITCHING, Verified 06/14/18 17:30 BURNING penicillin G Allergy Mild RASH Verified 06/14/18 17:30 amoxicillin Allergy Unknown UNKNOWN Verified 06/14/18 17:30 clarithromycin Allergy Unknown UNKNOWN Verified 06/14/18 17:30 clavulanic acid Allergy Unknown UNKNOWN Verified 06/14/18 17:30 adhesive AdvReac Mild BAND-AIDS Verified 06/14/18 17:30 = SKIN IRRITATION Home Medications Home Medications Medication Instructions Recorded Confirmed Type acetaminophen [Tylenol Arthritis 650 - 1,300 mg PO DAILY 06/14/18 06/14/18 History Pain] apixaban [Eliquis] 5 mg PO BID 06/14/18 06/14/18 History atorvastatin 40 mg PO DAILY 06/14/18 06/14/18 History bisacodyl 5 mg PO DAILY PRN 06/14/18 06/14/18 History cholecalciferol (vitamin D3) 5,000 unit PO DAILY 06/14/18 06/14/18 History cinnamon bark [Cinnamon] 1,000 mg PO BID 06/14/18 06/14/18 History clobetasol 1 applic TOPICAL UD 06/14/18 06/14/18 History codeine-guaifenesin [Cheratussin 10 ml PO HS PRN 06/14/18 06/14/18 History AC] conjugated estrogens [Premarin] 1 dose VAGINAL HS 06/14/18 06/14/18 History cranberry extract [Cranberry 1,000 mg PO DAILY 06/14/18 06/14/18 History Concentrate] diltiazem HCl 120 mg PO QAM 06/14/18 06/14/18 History ferrous sulfate 325 mg PO BID 06/14/18 06/14/18 History kmlb-pnc-srt-blkbor-om 3,6,9 5 1 cap PO DAILY 06/14/18 06/14/18 History [[place] 3-6-9 Fatty Acids] fluticasone-salmeterol 1 inh INHALATION BID 06/14/18 06/14/18 History guaifenesin [Mucinex] 600 mg PO DAILY PRN 06/14/18 06/14/18 History insulin NPH and regular human 45 unit SUBCUT BID 06/14/18 06/14/18 History insulin glargine [Basaglar KwikPen 40 unit SUBCUT BID 06/14/18 06/14/18 History U-100 Insulin] lamotrigine 150 mg PO DAILY 06/14/18 06/14/18 History levalbuterol HCl 0.63 mg INHALATION Q4H PRN 06/14/18 06/14/18 History liraglutide [Victoza 2-Blaine] 0.6 mg SUBCUT DAILY 06/14/18 06/14/18 History lorazepam 1 mg PO DAILY PRN 06/14/18 06/14/18 History magnesium 400 mg PO BID 06/14/18 06/14/18 History metformin 1,000 mg PO BID 06/14/18 06/14/18 History montelukast 10 mg PO DAILY 06/14/18 06/14/18 History os-wl-pwpj-FA-Ca carb-vit K 1 tab PO DAILY 06/14/18 06/14/18 History [One-A-Day Womens Formula] nystatin 1 applic TOPICAL BID PRN 06/14/18 06/14/18 History pantoprazole 40 mg PO DAILY 06/14/18 06/14/18 History ranitidine HCl 150 mg PO BID 06/14/18 06/14/18 History sotalol [Sotalol AF] 40 mg PO Q12H 06/14/18 06/14/18 History tiotropium bromide [Spiriva with 1 cap INHALATION DAILY 06/14/18 06/14/18 History HandiHaler] Past Med/Surg History Medical History COPD (chronic obstructive pulmonary disease) (Chronic) Arthritis (Chronic) H/O: CVA (cerebrovascular accident) (Chronic) REENA (obstructive sleep apnea) (Chronic) HLD (hyperlipidemia) (Chronic) Paroxysmal atrial fibrillation (Chronic) Diabetes mellitus, type II (Chronic) RBBB (Chronic) Mood disorder (Chronic) H/O: hysterectomy (Resolved) Surgical History Hx of nasal septoplasty (Resolved) Family History Other Diabetes Social History Preferred Language: Yoruba Communication Ability: Effective Scaffolding Helper Required: No Beliefs That Will Affect Care: Taoism marital status: Current Living Situation: Spouse Other Information That Helps Us Care for You: No Feels Safe at Home: Yes Safety Concerns: Feels Safe At This Time Smoking Status: Former smoker Hx Alcohol Use: No Hx Substance Use: No Review of Systems All systems reviewed & are unremarkable except as noted in HPI & below Physical Exam Vital Signs (Past 24 Hours): Last Vital Signs Temp 36.8 C 06/14/18 16:18 Pulse 88 06/14/18 18:57 Resp 19 06/14/18 18:57 BP 147/85 H 06/14/18 18:57 Pulse Ox 95 06/14/18 18:57 Physical Exam: General Appearance: WD/WN, no apparent distress, sitting at side of bed, + anxious Head: normocephalic, atraumatic Eyes: normal inspection, PERRL, EOMI ENT: hearing grossly normal, pharynx normal (moist mucous membranes) Neck: supple, no JVD, no adenopathy Respiratory/Chest: lungs clear to auscultation. No wheezes, rales or rhonci. No respiratory distress or accessory muscle use Cardiovascular: regular rate, rhythm, no murmur, normal peripheral pulses, trace BLE edema Abdomen/GI: normal bowel sounds, soft, non-tender to palpation Extremities/Musculoskelatal: normal inspection, no calf tenderness, normal capillary refill, no pedal edema Neurologic/Psych: alert, normal mood/affect, oriented x 3 Skin: normal color, warm/dry Results & Data Laboratory Results Short CBC 06/14/18 Range/Units 17:15 WBC 10.59 (4.8-10.8) K/uL Hgb 13.6 (12.0-16.0) g/dL Hct 40.7 (37-47) % Plt Count 218 (130-400) K/uL BMP 06/14/18 17:15 Sodium 137 Potassium 4.0 Chloride 104 Carbon Dioxide 25 BUN 13 Creatinine 0.63 Glucose 138 H Calcium 9.3 Cardiac Enzymes 06/14/18 Range/Units 17:15 Total Creatine Kinase 295 H (26-192) U/L CK-MB (CK-2) 4.8 H (0.5-3.6) ng/ml Troponin I < 0.015 (0-0.045) ng/ml Liver Function 06/14/18 Range/Units 17:15 Total Bilirubin 0.5 (0.2-1) mg/dl AST 19 (15-37) U/L ALT 35 (12-78) U/L Alkaline Phosphatase 113 (45-117) U/L Albumin 3.8 (3.4-5.0) gm/dl Urine 06/14/18 Range/Units 17:10 Urine Color Yellow Urine Appearance Turbid H (Clear) Urine pH 7.0 (4.5-7.5) Ur Specific [place] 1.018 (1.000-1.030) Urine Protein Negative (Negative) Urine Glucose (UA) Negative (Negative) Supervising Physician Co-Signing Physician Notes Attending addendum: The patient was seen and examined in the emergency room She has acute atrial fibrillation controlled with oral sotalol and Cardizem and came to ER with an episode of palpitation and weakness Remained hemodynamically stable in the emergency room without any significant symptoms Is very anxious to be discharged from the emergency room On examination No apparent distress at rest Hemodynamically stable Chest-clear to auscultate bilaterally with decreased breath sounds Abdomen-benign Heart-S1-S2 irregular without any murmur Extremities-trace edema bilaterally Admission labs and imaging studies reviewed Agree with assessment and plan as outlined above by Dimitris Steward
[2018-06-14] MEDS ORDERED: dilTIAZem HCl 5 MG/ML 5 ML VIAL IV STA (20:20)
[2018-06-14] MEDS ORDERED: LORazepam 1 MG TAB PO PRN (21:47)
[2018-06-14] MEDS ORDERED: GLUCOSE 40% GEL 15 GM TUBE PO PRN (21:47)
[2018-06-14] MEDS ORDERED: NYSTATIN CR 15 GM TUBE EXT PRN (21:47)
[2018-06-14] MEDS ORDERED: POLYETHYLENE (MIRALAX) 17 GM PACK PO PRN (21:47)
[2018-06-14] MEDS ORDERED: DEXTROSE 50% 50 ML SYRINGE IV PRN (21:47)
[2018-06-14] MEDS ORDERED: GLUCOSE 10 TABS/TUBE PO PRN (21:47)
[2018-06-14] MEDS ORDERED: CARBOHYDRATES FOR HYPOGLYCEMIA PO PRN (21:47)
[2018-06-14] MEDS ORDERED: LEVALBUTEROL HCL 0.63 MG/3 ML NEB INH PRN (21:47)
[2018-06-14] MEDS ORDERED: SOTALOL HCL 80 MG TAB PO SCH (21:47)
[2018-06-14] MEDS ORDERED: GLUCAGON FOR INJ 1 MG VIAL SQ PRN (21:47)
[2018-06-14] MEDS ORDERED: BISACODYL 5 MG TABEC PO PRN (22:15)
[2018-06-14] MEDS: INSULIN ASPART 100 UNITS/ML 3 ML PEN SC SCH (23:01)
[2018-06-14] MEDS: FLUTICASONE/SALMETEROL (ADVAIR) 500/50 INH 14 PUFF INH SCH (23:01)
[2018-06-14] MEDS: APIXABAN 5 MG TABLET PO SCH (23:05)
[2018-06-14] MEDS: INSULIN GLARGINE SOLOSTAR 100 UNITS/ML 3 ML PEN SC SCH (23:07)
[2018-06-14] MEDS: ACETAMINOPHEN 325 MG TAB PO PRN (23:30)
[2018-06-15] MEDS ORDERED: SODIUM CHLORIDE 0.65% NA SOLN 45 ML (OCEAN) PRN
[2018-06-15] MEDS ORDERED: SODIUM CHLORIDE 0.9% 500 ML IV ONE (00:06)
[2018-06-15] MEDS ORDERED: dilTIAZem HCl 5 MG/ML 5 ML VIAL IV ONE (00:30)
--- NOTE | 2018-06-15 02:03 | Emergency Department Note ---
Entered by Bhumika Iqbal acting as a scribe for Ag Day MD History of Present Illness General Chief complaint: Cardiac Assessment Stated complaint: A-FIB Time Seen by Provider: 06/14/18 16:22 Source: patient Mode of arrival: ambulatory Limitations: no limitations History of Present Illness Provider complaint: palpitations Onset (ago): hour(s) 4 Location: chest Pain Consistency: + other (episode) Quality: + other (palpitations) Associated symptoms: + other (heavy arm) The patient is a 67 year old female who presents to the Emergency Room with complaints of an episode of palpitations that occurred about 4 hours ago. The patient reports that she was lying in bed around 1300 today when she suddenly felt as if her heart was racing. She notes that she does have a history of a- fib and is currently on Eliquis. She states that she also felt heaviness in her arm and that she contacted her city secretary, Dr. Mosley, who referred her to the ER. She denies ever having a stent placed but reports she did have a stress test many years ago. She states that she does have a history of diabetes. She notes that she was feeling baseline prior to this episode. Home Medications Home Medications Medication Instructions Recorded Confirmed Type acetaminophen [Tylenol Arthritis 650 - 1,300 mg PO DAILY 06/14/18 06/14/18 History Pain] apixaban [Eliquis] 5 mg PO BID 06/14/18 06/14/18 History atorvastatin 40 mg PO DAILY 06/14/18 06/14/18 History bisacodyl 5 mg PO DAILY PRN 06/14/18 06/14/18 History cholecalciferol (vitamin D3) 5,000 unit PO DAILY 06/14/18 06/14/18 History cinnamon bark [Cinnamon] 1,000 mg PO BID 06/14/18 06/14/18 History clobetasol 1 applic TOPICAL UD 06/14/18 06/14/18 History codeine-guaifenesin [Cheratussin 10 ml PO HS PRN 06/14/18 06/14/18 History AC] conjugated estrogens [Premarin] 1 dose VAGINAL HS 06/14/18 06/14/18 History cranberry extract [Cranberry 1,000 mg PO DAILY 06/14/18 06/14/18 History Concentrate] diltiazem HCl 120 mg PO QAM 06/14/18 06/14/18 History ferrous sulfate 325 mg PO BID 06/14/18 06/14/18 History msmr-ecg-ojt-blkbor-om 3,6,9 5 1 cap PO DAILY 06/14/18 06/14/18 History [Blanket 3-6-9 Fatty Acids] fluticasone-salmeterol 1 inh INHALATION BID 06/14/18 06/14/18 History guaifenesin [Mucinex] 600 mg PO DAILY PRN 06/14/18 06/14/18 History insulin NPH and regular human 45 unit SUBCUT BID 06/14/18 06/14/18 History insulin glargine [Basaglar KwikPen 40 unit SUBCUT BID 06/14/18 06/14/18 History U-100 Insulin] lamotrigine 150 mg PO DAILY 06/14/18 06/14/18 History levalbuterol HCl 0.63 mg INHALATION Q4H PRN 06/14/18 06/14/18 History liraglutide [Victoza 2-Blaine] 0.6 mg SUBCUT DAILY 06/14/18 06/14/18 History lorazepam 1 mg PO DAILY PRN 06/14/18 06/14/18 History magnesium 400 mg PO BID 06/14/18 06/14/18 History metformin 1,000 mg PO BID 06/14/18 06/14/18 History montelukast 10 mg PO DAILY 06/14/18 06/14/18 History yi-ft-uhyj-FA-Ca carb-vit K 1 tab PO DAILY 06/14/18 06/14/18 History [One-A-Day Womens Formula] nystatin 1 applic TOPICAL BID PRN 06/14/18 06/14/18 History pantoprazole 40 mg PO DAILY 06/14/18 06/14/18 History ranitidine HCl 150 mg PO BID 06/14/18 06/14/18 History sotalol [Sotalol AF] 40 mg PO Q12H 06/14/18 06/14/18 History tiotropium bromide [Spiriva with 1 cap INHALATION DAILY 06/14/18 06/14/18 History HandiHaler] Allergies Allergy/AdvReac Type Severity Reaction Status Date / Time Cephalosporins Allergy Intermediate RASH Verified 06/14/18 17:30 Sulfa (Sulfonamide Allergy Intermediate "Sulfa Verified 06/14/18 17:30 Antibiotics) Drugs = rash" terconazole Allergy Intermediate ITCHING, Verified 06/14/18 17:30 BURNING penicillin G Allergy Mild RASH Verified 06/14/18 17:30 amoxicillin Allergy Unknown UNKNOWN Verified 06/14/18 17:30 clarithromycin Allergy Unknown UNKNOWN Verified 06/14/18 17:30 clavulanic acid Allergy Unknown UNKNOWN Verified 06/14/18 17:30 adhesive AdvReac Mild BAND-AIDS Verified 06/14/18 17:30 = SKIN IRRITATION Past Med/Surg History Medical History COPD (chronic obstructive pulmonary disease) (Chronic) Arthritis (Chronic) H/O: CVA (cerebrovascular accident) (Chronic) REENA (obstructive sleep apnea) (Chronic) HLD (hyperlipidemia) (Chronic) Paroxysmal atrial fibrillation (Chronic) Diabetes mellitus, type II (Chronic) RBBB (Chronic) Mood disorder (Chronic) H/O: hysterectomy (Resolved) Surgical History Hx of nasal septoplasty (Resolved) Family History Other Diabetes Social History Preferred Language: Guamanian Communication Ability: Effective Past Due Accounts Clerk Required: No Beliefs That Will Affect Care: Buddhism marital status: Current Living Situation: Spouse Other Information That Helps Us Care for You: No Feels Safe at Home: Yes Safety Concerns: Feels Safe At This Time Smoking Status: Former smoker Hx Alcohol Use: No Hx Substance Use: No Review of Systems See HPI for pertinent positives & negatives. and A total of 10 systems reviewed and were otherwise negative Physical Exam Vital Signs Vital Signs - 24 hr 06/14/18 16:18 06/14/18 18:32 06/14/18 18:57 Temperature 36.8 C Temperature Source Oral Sepsis Recent Fever Within 48 Hours No Sepsis New/Unexplained Change in Mental Status No Sepsis Action Taken by Nursing No Action Required Pulse Rate 101 H 90 Pulse Rate [Finger] 88 Pulse Rate from SpO2 Sensor Respiratory Rate 26 H 19 Respiratory Effort / Characteristics Respiratory Depth Respiratory Pattern Blood Pressure 167/92 H Blood Pressure [Left Arm] 147/85 H Blood Pressure Mean 117 Blood Pressure Mean [Left Arm] 105 Pulse Oximetry 95 95 95 Oxygen Delivery Method Room Air Room Air 06/14/18 18:58 06/14/18 19:30 06/14/18 19:45 Temperature Temperature Source Sepsis Recent Fever Within 48 Hours Sepsis New/Unexplained Change in Mental Status Sepsis Action Taken by Nursing Pulse Rate 95 H 94 H Pulse Rate [Finger] Pulse Rate from SpO2 Sensor 94 H 93 H Respiratory Rate 24 24 Respiratory Effort / Characteristics Respiratory Depth Respiratory Pattern Blood Pressure 147/85 H Blood Pressure [Left Arm] Blood Pressure Mean 105 Blood Pressure Mean [Left Arm] Pulse Oximetry 95 93 Oxygen Delivery Method Room Air 06/14/18 20:09 06/14/18 20:21 06/14/18 20:30 Temperature Temperature Source Sepsis Recent Fever Within 48 Hours Sepsis New/Unexplained Change in Mental Status Sepsis Action Taken by Nursing Pulse Rate 146 H 135 H 131 H Pulse Rate [Finger] Pulse Rate from SpO2 Sensor 118 H 120 H Respiratory Rate 13 20 21 Respiratory Effort / Characteristics Respiratory Depth Respiratory Pattern Blood Pressure 145/106 H Blood Pressure [Left Arm] Blood Pressure Mean 119 Blood Pressure Mean [Left Arm] Pulse Oximetry 94 93 Oxygen Delivery Method 06/14/18 20:33 06/14/18 20:35 06/15/18 00:35 Temperature Temperature Source Sepsis Recent Fever Within 48 Hours Sepsis New/Unexplained Change in Mental Status Sepsis Action Taken by Nursing Pulse Rate 128 H 142 H 114 H Pulse Rate [Finger] Pulse Rate from SpO2 Sensor 121 H Respiratory Rate 21 19 16 Respiratory Effort / Characteristics Non-Labored Spontaneous Respiratory Depth Normal Respiratory Pattern Regular Blood Pressure 121/70 Blood Pressure [Left Arm] Blood Pressure Mean 87 Blood Pressure Mean [Left Arm] Pulse Oximetry 94 96 Oxygen Delivery Method GENERAL: Patient is a healthy-appearing well-nourished HEAD: Normocephalic atraumatic EYES: Ocular movements intact pupils equal and react to light OROPHARYNX mucous membranes are moist no exudates present no erythema or edema present NECK: Supple no nuchal rigidity CHEST: Good equal expansion LUNGS: Clear and equal to auscultation CARDIAC: Normal S1 and S2 ABDOMEN: Soft nontender no guarding BACK: No CVA tenderness EXTREMITIES: No pain upon palpation normal muscle strength in all groups no clubbing cyanosis or edema NEURO: Patient is following commands is answering questions appropriately. Alert and oriented x3 Cranial Nerves 2-12 grossly intact Course 1636: We have been waiting for the patient who is in the bathroom. 1647: Past medical records reviewed. The patient was evaluated in room C2A, and a complete history and physical examination were performed. 1808: I reviewed the patient's case with ELAINA Yañez - [facility] Hospitalist. She will evaluate the patient for further management. Administered Medications Acetaminophen (Tylenol) 650 mg PO Q4H PRN PRN Reason: Pain or Fever Stop: 07/14/18 21:46 Last Admin: 06/14/18 23:30 Dose: 650 mg Documented by: [id number] Apixaban (Eliquis) 5 mg PO BID GARIMA Stop: 07/14/18 21:46 Last Admin: 06/14/18 23:05 Dose: 5 mg Documented by: [id number] Insulin Aspart (Novolog Flexpen) 0 units SC ACHS GARIMA Stop: 07/14/18 21:46 Last Admin: 06/14/18 23:01 Dose: Not Given Documented by: [id number] Cosigned by: [id number] Insulin Glargine (Lantus Solostar Pen) 0 units SC BID GARIMA Stop: 07/14/18 21:59 Last Admin: 06/14/18 23:07 Dose: 20 units Documented by: [id number] Cosigned by: [id number] Ranitidine HCl (Zantac) 150 mg PO BID GARIMA Stop: 07/14/18 21:46 Last Admin: 06/14/18 23:05 Dose: 150 mg Documented by: [id number] Fluticasone/Salmeterol (Advair Diskus 500/50) 1 puffs INH BID GARIMA Stop: 07/14/18 21:46 Last Admin: 06/14/18 23:01 Dose: 1 puffs Documented by: [id number] Sotalol HCl (Betapace) 40 mg PO BID GARIMA Stop: 07/14/18 21:46 Last Admin: 06/14/18 23:03 Dose: 40 mg Documented by: [id number] Discontinued Medications Diltiazem HCl (Cardizem) 31 mg IV NOW STA Stop: 06/14/18 20:21 Last Admin: 06/14/18 20:27 Dose: 31 mg Documented by: [id number] Cosigned by: [id number] Diltiazem HCl (Cardizem) 20 mg IV ONE ONE Stop: 06/15/18 00:31 Last Admin: 06/15/18 00:31 Dose: 20 mg Documented by: [id number] Cosigned by: [id number] Sodium Chloride (Nss) 500 mls @ 999 mls/hr IV .Q31M GARIMA Stop: 06/14/18 17:30 Last Infusion: 06/14/18 18:10 Dose: 0 mls/hr Documented by: [id number] Admin: 06/14/18 17:23 Dose: 999 mls/hr Documented by: [id number] Sodium Chloride (Nss) 500 mls @ 500 mls/hr IV .Q1H ONE Stop: 06/15/18 01:05 Last Admin: 06/15/18 00:31 Dose: 500 mls/hr Documented by: [id number] Medical Decision Making Differential Diagnosis Differential diagnosis includes: premature contractions, electrolyte abnormality, cardiac dysrhythmia, thyroid dysfunction, pulmonary embolism, infection, gastrointestinal, as well as others were entertained. Medical Records Attestation: I reviewed the patient's medical records. Home Medications Current Medication List: was personally reviewed by me Laboratory Data Attestation: I reviewed the patient's lab results. Result diagrams: 06/14/18 17:15 06/14/18 17:15 Lab Results 06/14/18 06/14/18 06/14/18 Range/Units 17:10 17:15 17:15 WBC 10.59 (4.8-10.8) K/uL RBC 4.50 (4.2-5.4) M/uL Hgb 13.6 (12.0-16.0) g/dL Hct 40.7 (37-47) % MCV 90.4 (80-100) fL MCH 30.2 (25-34) pg MCHC 33.4 (32-36) g/dL RDW Std Deviation 46.9 H (36.4-46.3) fL RDW Coeff of Juan [place] 14.3 (11.5-14.5) % Plt Count 218 (130-400) K/uL MPV 10.4 (7.4-10.4) fL Immature Gran % (Auto) 0.4 % Neut % (Auto) 58.0 % Lymph % (Auto) 28.0 % Maverick % (Auto) 8.6 % Eos % (Auto) 4.4 % Baso % (Auto) 0.6 % Immature Gran # (Auto) 0.04 H (0.00-0.02) K/uL Neut # (Auto) 6.14 (1.4-6.5) K/uL Lymph # (Auto) 2.97 (1.2-3.4) K/uL Maverick # (Auto) 0.91 H (0.11-0.59) K/uL Eos # (Auto) 0.47 (0-0.5) K/uL Baso # (Auto) 0.06 (0-0.2) K/uL Sodium 137 (136-145) mmol/L Potassium 4.0 (3.5-5.1) mmol/L Chloride 104 (98-107) mmol/L Carbon Dioxide 25 (21-32) mmol/L Anion Gap 9.0 (3-11) BUN 13 (7-18) mg/dl Creatinine 0.63 (0.6-1.2) mg/dl Est Cr Clr Drug Dosing 119.5 ml/min Est GFR ( Amer) 109.1 Est GFR (Non-Af Amer) 94.1 BUN/Creatinine Ratio 20.5 H (10-20) Glucose 138 H (70-99) mg/dl POC Glucose (70-99) Calcium 9.3 (8.5-10.1) mg/dl Magnesium Cancelled Total Bilirubin 0.5 (0.2-1) mg/dl AST 19 (15-37) U/L ALT 35 (12-78) U/L Alkaline Phosphatase 113 (45-117) U/L Total Creatine Kinase 295 H (26-192) U/L CK-MB (CK-2) 4.8 H (0.5-3.6) ng/ml CK/CKMB % Calc 1.6 (0-3.0) Troponin I < 0.015 (0-0.045) ng/ml NT-Pro-B Natriuret Pep 35 (0-900) pg/ml Total Protein 7.6 (6.4-8.2) gm/dl Albumin 3.8 (3.4-5.0) gm/dl Globulin 3.8 (2.5-4.0) gm/dl Albumin/Globulin Ratio 1.0 (0.9-2) Lipase 112 (73-393) U/L Urine Color Yellow Urine Appearance Turbid H (Clear) Urine pH 7.0 (4.5-7.5) Ur Specific [place] 1.018 (1.000-1.030) Urine Protein Negative (Negative) Urine Glucose (UA) Negative (Negative) Urine Ketones Negative (Negative) Urine Blood Negative (Negative) Urine Nitrite Negative (Negative) Urine Bilirubin Negative (Negative) Urine Urobilinogen Negative (Negative) Ur Leukocyte Esterase Negative (Negative) Urine WBC (Auto) 1-5 (0-5) /hpf Urine RBC (Auto) 0-4 (0-4) /hpf U Hyaline Cast (Auto) 0 (0-5) /lpf U Epithel Cells (Auto) >30 H (0-5) /lpf Urine Bacteria (Auto) 2+ H (Negative) Urine Sperm Not Reportable 06/14/18 06/14/18 06/15/18 Range/Units 20:35 22:16 00:14 WBC (4.8-10.8) K/uL RBC (4.2-5.4) M/uL Hgb (12.0-16.0) g/dL Hct (37-47) % MCV (80-100) fL MCH (25-34) pg MCHC (32-36) g/dL RDW Std Deviation (36.4-46.3) fL RDW Coeff of Juan [place] (11.5-14.5) % Plt Count (130-400) K/uL MPV (7.4-10.4) fL Immature Gran % (Auto) % Neut % (Auto) % Lymph % (Auto) % Maverick % (Auto) % Eos % (Auto) % Baso % (Auto) % Immature Gran # (Auto) (0.00-0.02) K/uL Neut # (Auto) (1.4-6.5) K/uL Lymph # (Auto) (1.2-3.4) K/uL Maverick # (Auto) (0.11-0.59) K/uL Eos # (Auto) (0-0.5) K/uL Baso # (Auto) (0-0.2) K/uL Sodium (136-145) mmol/L Potassium (3.5-5.1) mmol/L Chloride (98-107) mmol/L Carbon Dioxide (21-32) mmol/L Anion Gap (3-11) BUN (7-18) mg/dl Creatinine (0.6-1.2) mg/dl Est Cr Clr Drug Dosing ml/min Est GFR ( Amer) Est GFR (Non-Af Amer) BUN/Creatinine Ratio (10-20) Glucose (70-99) mg/dl POC Glucose 102 H 158 H (70-99) Calcium (8.5-10.1) mg/dl Magnesium 1.6 L Total Bilirubin (0.2-1) mg/dl AST (15-37) U/L ALT (12-78) U/L Alkaline Phosphatase (45-117) U/L Total Creatine Kinase (26-192) U/L CK-MB (CK-2) (0.5-3.6) ng/ml CK/CKMB % Calc (0-3.0) Troponin I (0-0.045) ng/ml NT-Pro-B Natriuret Pep (0-900) pg/ml Total Protein (6.4-8.2) gm/dl Albumin (3.4-5.0) gm/dl Globulin (2.5-4.0) gm/dl Albumin/Globulin Ratio (0.9-2) Lipase (73-393) U/L Urine Color Urine Appearance (Clear) Urine pH (4.5-7.5) Ur Specific [place] (1.000-1.030) Urine Protein (Negative) Urine Glucose (UA) (Negative) Urine Ketones (Negative) Urine Blood (Negative) Urine Nitrite (Negative) Urine Bilirubin (Negative) Urine Urobilinogen (Negative) Ur Leukocyte Esterase (Negative) Urine WBC (Auto) (0-5) /hpf Urine RBC (Auto) (0-4) /hpf U Hyaline Cast (Auto) (0-5) /lpf U Epithel Cells (Auto) (0-5) /lpf Urine Bacteria (Auto) (Negative) Urine Sperm Imaging Data Radiologist's Impression: Radiology results as stated below per my review and the radiologist's interpretation: XR chest 1V portable CLINICAL HISTORY: Chest Pain dyspnea COMPARISON STUDY: 03/15/2018 FINDINGS: Mild chronic bilateral interstitial prominence. No well-defined focal infiltrate. Minimal chronic atelectasis right lung base. Pulmonary apices are clear. IMPRESSION: Chronic change. No acute process. The above report was generated using voice recognition software. It may contain grammatical, syntax or spelling errors. Electronically signed by: Anup Mcmullen M.D. 06/14/2018 5:09 PM ECG Data Attestation: I personally reviewed and interpreted this ECG as follows: Indication: tachycardia Rate (beats per minute): 96 Rhythm: normal sinus Findings: + RBBB; no ST depression and no ST elevation Comparison ECG Date: from (04-NOV-2017) Change: no significant change Blood Pressure Blood Pressure Findings: Elevated blood pressure Blood Pressure Disposition: further management by hospitalist MDM Narrative This is a 67-year-old female who reports that she had an increase in her heart rate earlier today. Upon arrival to the emergency department the patient was in a normal sinus rhythm. She has no elevations in her CK-MB and troponin. Her EKG is unchanged from previous. Patient is on Eliquis for her atrial fibrillation. The patient was being evaluated in the emergency department she flipped into an A. fib with RVR. She was then given Cardizem. Case was di scussed with the hospitalist who agreed to admit the patient. Impression & Plan Atrial fibrillation with RVR Discharge Plan Visit Data *Final* Discharge Date/Time: 06/14/18 21:16 Chief Complaint: Cardiac Assessment Stated Complaint: A-FIB ED Provider: Ag Day Discharge Problem: Atrial fibrillation with RVR Patient Disposition: Admitted As Inpatient Discharge Instructions Interventions: ED Discharge Assessment Last Done: 06/14/18 21:16 The scribe's documentation has been prepared under my direction and personally reviewed by me in its entirety. I confirm that the note above accurately refl ects all work, treatment, procedures, and medical decision making performed by me.
[2018-06-15] MEDS: MAGNESIUM SULFATE / D5W 1 GM/100 ML BAG IV SCH ×2 (02:27→03:56)
[2018-06-15] MEDS: SOTALOL HCL 80 MG TAB PO SCH ×2 (06:01→21:15)
[2018-06-15] MEDS: FERROUS SULFATE 325 MG TAB PO SCH ×3 (08:13→18:10)
[2018-06-15] MEDS: dilTIAZem HCL 120 MG CAPCR PO SCH (08:14)
[2018-06-15] MEDS: FLUTICASONE/SALMETEROL (ADVAIR) 500/50 INH 14 PUFF INH SCH ×2 (08:14→21:13)
[2018-06-15] MEDS: CHOLECALCIFEROL 1,000 UNITS TAB PO SCH (08:15)
[2018-06-15] MEDS: MAGNESIUM OXIDE 400 MG TAB PO SCH ×4 (08:18→21:12)
[2018-06-15] MEDS: APIXABAN 5 MG TABLET PO SCH ×2 (08:18→21:14)
[2018-06-15] MEDS: INSULIN GLARGINE SOLOSTAR 100 UNITS/ML 3 ML PEN SC SCH ×2 (08:19→21:16)
[2018-06-15] MEDS: INSULIN ASPART 100 UNITS/ML 3 ML PEN SC SCH ×4 (08:24→21:17)
[2018-06-15 08:35] LABS: Hematocrit (blood only) 42.7 % (37-47); Hemoglobin 14.2 g/dL (12.0-16.0); Mean Corpuscular Hgb Conc 33.3 g/dL (32-36); Mean Corpuscular Volume 90.5 fL (80-100); Mean Platelet Volume 10.4 fL (7.4-10.4); Platelet Count 224 K/uL (130-400); RDW Coefficient of Variation 14.4 % (11.5-14.5); RDW Standard Deviation 48.3 fL (36.4-46.3); Red Blood Count 4.72 M/uL (4.2-5.4); White Blood Count 12.12 K/uL (4.8-10.8)
[2018-06-15 08:59] LABS: Estimated Average Glucose 157 mg/dl; Hemoglobin A1C 7.1 % (4.5-5.6)
[2018-06-15] MEDS ORDERED: TIOTROPIUM BROMIDE 5 PUFF/90 MCG INH INH SCH ×2 (09:00→21:00)
[2018-06-15] MEDS ORDERED: ATORVASTATIN 40 MG TAB PO SCH ×2 (09:00→21:00)
[2018-06-15] MEDS ORDERED: [UNRECOGNIZED DRUG - OTHER] PO SCH (09:00)
[2018-06-15] MEDS ORDERED: PANTOprazole 40 MG TAB PO SCH ×2 (09:00→21:00)
[2018-06-15] MEDS ORDERED: MONTELUKAST SODIUM 10 MG TABLET PO SCH ×3 (09:00→21:00)
[2018-06-15] MEDS ORDERED: NON-FORMULARY MEDICATION (Mv-Mn-Iron-Fa-Ca Carb-Vit K [One-A-Day Womens Formula] 1 TAB) PO SCH (09:00)
[2018-06-15 09:05] LABS: BUN Creatinine Ratio 18.4 (10-20); Blood Urea Nitrogen 13 mg/dl (7-18); Carbon Dioxide 24 mmol/L (21-32); Chloride 106 mmol/L (98-107); Creatinine Clr Calc Pharmacy 105.1 ml/min; Est GFR (African American) 103.6; Est GFR (Non-African American) 89.4; Glucose 159 mg/dl (70-99); Potassium 3.8 mmol/L (3.5-5.1); Sodium 138 mmol/L (136-145)
[2018-06-15 09:09] LABS: Troponin I < 0.015 ng/ml (0-0.045)
[2018-06-15] MEDS ORDERED: dilTIAZem HCL 30 MG TAB PO ONE (10:15)
--- NOTE | 2018-06-15 11:06 | Consultation Report ---
DATE OF ADMISSION: 06/15/2018 REQUESTED BY: Richard Gallardo MD REASON FOR CONSULTATION: Paroxysmal atrial fibrillation. HISTORY OF PRESENT ILLNESS: Ms. Mercado is a very pleasant 67-year-old woman who follows very closely with Dr. Mosley of our cardiology practice. She was in her normal state of health on 06/14/2018 when she took an afternoon nap. She woke up suddenly and felt her heart beating quick, fast in her chest. She states that this was similar yet somewhat more severe than her past episodes of atrial fibrillation. She did try taking an extra half tablet of her sotalol as she has been instructed to do with the past; however, symptoms persisted for over an hour. During this time, she also became very anxious and developed a funny feeling in her left shoulder, which she described more of a heaviness sensation. She called the [facility] office and was instructed to present herself to [facility] Emergency Department. This episode was also associated with some shortness of breath. Her symptoms seemed to resolve on the way to the hospital and upon presentation, she was found to be in normal sinus rhythm. She was admitted to telemetry and had recurrent bouts of atrial fibrillation intermittently overnight with periods of sinus rhythm including frequent PACs. The patient denies any changes to her medical regimen lately. She states that she is very compliant with her medications as she has not missed any of her sotalol, Cardizem or Eliquis. She has been in her normal state of health recently and no other significant changes either. She did note that she was not wearing her CPAP when she took a nap. PAST SURGICAL HISTORY: 1. Total abdominal hysterectomy. 2. Breast biopsy. 3. Nasal septum repair. 4. Cystoscopy. 5. Tonsillectomy. 6. Colonoscopy. MEDICAL ILLNESSES: 1. Paroxysmal atrial fibrillation on chronic sotalol and Eliquis. 2. Moderate COPD. 3. Diabetes. 4. Obesity. 5. History of CVA. 6. Obstructive sleep apnea, nocturnal CPAP. 7. Chronic right bundle branch block. 8. Dyslipidemia. 9. Hypertriglyceridemia. FAMILY HISTORY: Noncontributory. SOCIAL HISTORY: The patient is a former smoker, quit in 2012. Denies any alcohol or recreational drug use. She is . She lives at home with her . 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 REVIEW OF SYSTEMS: As per HPI, all other review of systems reviewed and negative at this time. ALLERGIES: 1. CEPHALOSPORINS. 2. SULFA. 3. ITRACONAZOLE. 4. PENICILLIN G. 5. AMOXICILLIN. 6. CLARITHROMYCIN. 7. CLAVULANIC ACID. 8. ADHESIVES. MEDICATIONS AN OUTPATIENT: 1. Sotalol 40 mg b.i.d. 2. Eliquis 5 mg b.i.d. 3. Diltiazem 120 mg daily. 4. Atorvastatin 40 mg daily. 5. Magnesium oxide b.i.d. 6. Insulin as directed. 7. Protonix daily. 8. Spiriva daily. 9. Advair. 10. Lamictal. PHYSICAL EXAMINATION: VITALS: Temperature 36.3, pulse 87, respiratory rate 12, blood pressure 133/79. GENERAL: Awake, alert, oriented x3 in no acute distress. HEENT: Normocephalic, atraumatic. Pupils equal, round react to light and accommodation. Extraocular muscles intact. Anicteric sclerae. Moist mucous membranes. NECK: No JVD, no bruit. CARDIOVASCULAR: Regular. Positive S4. Normal S1 and S2, no S3. No murmurs or rubs. PULMONARY: Clear to auscultation bilaterally. No rales, rhonchi or wheezing. ABDOMEN: Bowel sounds x4, soft. No rebound, guarding, tenderness. No organomegaly. EXTREMITIES: No clubbing, cyanosis or edema. +2 pedal pulses bilaterally. SKIN: Warm and dry. TEST RESULTS: A 12-lead EKG performed in the Emergency Department independently reviewed at this time shows normal sinus rhythm with underlying right bundle branch block. Repeat EKG on 06/14/2013 shows atrial fibrillation with rapid ventricular response at 137 beats per minute. Telemetry monitoring shows intermittent atrial fibrillation with rapid ventricular response overnight. LABORATORY STUDIES OF SIGNIFICANCE: Magnesium of 1.6, sodium 138, potassium 3.8, BUN 13, creatinine 0.7. IMPRESSION: 1. Paroxysmal atrial fibrillation with rapid ventricular response, symptomatic. 2. History of cerebrovascular accident. 3. Hypertension. 4. Diabetes. 5. Obstructive sleep apnea, nocturnal CPAP. 6. Chronic hypomagnesium. RECOMMENDATIONS: It is my pleasure to see Mrs. Mercado in consultation today. From a cardiac standpoint, the patient is definitely going in and out of atrial fibrillation at this time, unfortunately we are rather limited in our scope of treatment given the fact that her QT is borderline prolonged at 490 milliseconds on low dose sotalol, so at this point we will attempt to replete her magnesium levels and I will give her a slight increase of her Cardizem dose at this time to see if this combination does not maintain normal sinus rhythm. Otherwise, her Eliquis will be continued uninterrupted and consideration will be given to possible electrophysiology referral as an outpatient. The patient will be maintained on telemetry monitoring overnight tonight. Further recommendations to follow. MTDD
[2018-06-15] MEDS: ACETAMINOPHEN 325 MG TAB PO PRN ×2 (13:01→23:35)
--- NOTE | 2018-06-15 16:48 | Hospitalist Progress Note ---
Date of Service June 15, 2018 Assessment & Plan (1) Palpitations: (2) Paroxysmal atrial fibrillation: Patient is a 67yo F with a PMH of paroxysmal A. fib (on anticoagulation), DM II, COPD, history of CVA and other problems mentioned below who presents with palpitations. -Possible that patient spontaneously converted from A Fib to NSR prior to arrival, still feeling fatigued and anxious -EKG with NSR at 96 bpm, RBBB (chronic) -Echo from June 2017 with normal EV, no wall motion abnormalities -Continue home diltiazem, sotalol -Eliquis for anticoagulation -Has had episodes of RVR at night -Appreciate cardiology input and recommendation -Received an additional dose of diltiazem IV and dose of diltiazem has been increased -Electrolytes should be replaced -Likely to be discharged tomorrow (3) Diabetes mellitus, type II: Most recent a1c of 6.6 in March 2018 -Hold victoza, metformin, 70/30 insulin while in-patient -Continue Lantus 40U BID with tight correction factor and CHO ratio -BSG checks AC HS -Diabetic diet (4) COPD (chronic obstructive pulmonary disease): -At baseline, no SOB, wheezing -Cont Spiriva, Advair, singulair as scheduled -Xopenex inhaler PRN -Denies any acute shortness of breath at rest (5) Mood disorder: Continue Lamictal, Ativan PRN Other significant medical conditions like History of CVA REENA Hyperlipidemia and arthritis remained stable We will continue current medications DVT Ppx: Eliquis Code status: FULL PCP: Marion Mosley Dispo: Observation med tele. Plan to return home once medically stable. Patient seen in collaboration with Dr. Steward. Please see addendum. Subjective She is a 67-year-old female with significant past medical history of paroxysmal atrial fibrillation, COPD, obstructive sleep apnea, diabetes type 2, and hyperlipidemia was admitted with atrial fibrillation with rapid ventricular response with symptoms. 06/15 He has had episodes of RVR last night She received intravenous dose of diltiazem She has been feeling a lot better this morning She denies any chest pain and/or palpitation Physical Exam Vital Signs (Past 24 Hours): Last Vital Signs Temp 36.7 C 06/15/18 16:04 Pulse 76 06/15/18 16:04 Resp 22 06/15/18 16:04 BP 122/76 03/12/19 16:04 Pulse Ox 90 06/15/18 16:04 Physical Exam: No apparent distress at rest Constitutional: WD/WN, vitals as above Eyes: PERRL, conjunctivae normal, anicteric sclerae ENMT: external ear and nose normal, oropharynx normal Neck: trachea midline, no thyromegaly Respiratory: normal respiratory effort Auscultation: lungs clear to auscultation bilaterally Cardiovascular: Rate/Rhythm: + abnormal rate and + abnormal rhythm Heart Sounds: normal S1 and normal S2 Gastrointestinal (Abdomen): normal bowel sounds, soft, nontender, no hepatosplenomegaly Neurologic: PERRL, EOMI, accommodation nl, no face palsy, no dysarthria Results & Data Laboratory Results Short CBC 06/14/18 06/15/18 Range/Units 17:15 08:12 WBC 10.59 12.12 H (4.8-10.8) K/uL Hgb 13.6 14.2 (12.0-16.0) g/dL Hct 40.7 42.7 (37-47) % Plt Count 218 224 (130-400) K/uL BMP 06/14/18 06/15/18 17:15 08:12 Sodium 137 138 Potassium 4.0 3.8 Chloride 104 106 Carbon Dioxide 25 24 BUN 13 13 Creatinine 0.63 0.71 Glucose 138 H 159 H Calcium 9.3 9.0 Cardiac Enzymes 06/14/18 06/15/18 Range/Units 17:15 08:12 Total Creatine Kinase 295 H (26-192) U/L CK-MB (CK-2) 4.8 H (0.5-3.6) ng/ml Troponin I < 0.015 < 0.015 (0-0.045) ng/ml Liver Function 06/14/18 Range/Units 17:15 Total Bilirubin 0.5 (0.2-1) mg/dl AST 19 (15-37) U/L ALT 35 (12-78) U/L Alkaline Phosphatase 113 (45-117) U/L Albumin 3.8 (3.4-5.0) gm/dl Urine 06/14/18 Range/Units 17:10 Urine Color Yellow Urine Appearance Turbid H (Clear) Urine pH 7.0 (4.5-7.5) Ur Specific [place] 1.018 (1.000-1.030) Urine Protein Negative (Negative) Urine Glucose (UA) Negative (Negative) Medications Administered Current Inpatient Medications Acetaminophen (Tylenol) 650 mg PO Q4H PRN PRN Reason: Pain or Fever Stop: 07/14/18 21:46 Last Admin: 06/15/18 13:01 Dose: 650 mg Documented by: Apixaban (Eliquis) 5 mg PO BID [facility] Stop: 07/14/18 21:46 Last Admin: 06/15/18 08:18 Dose: 5 mg Documented by: Atorvastatin Calcium (Lipitor) 40 mg PO HS [facility] Stop: 07/15/18 20:59 Bisacodyl (Dulcolax) 5 mg PO DAILY PRN PRN Reason: constipation Stop: 07/14/18 22:14 Dextrose (Dextrose 50%) 25 - 50 ml IV UD PRN; Protocol PRN Reason: Hypoglycemia Protocol Stop: 07/14/18 21:46 Diltiazem HCl (Cardizem Cd) 120 mg PO DAILY [facility] Stop: 07/15/18 08:59 Last Admin: 06/15/18 08:14 Dose: 120 mg Documented by: Ferrous Sulfate (Feosol) 325 mg PO BIDM [facility] Stop: 07/15/18 07:59 Last Admin: 06/15/18 08:17 Dose: Not Given Documented by: Glucagon (Glucagen) 1 mg SQ UD PRN; Protocol PRN Reason: Hypoglycemia Protocol Stop: 07/14/18 21:46 Glucose (Glucose 40%) 15 - 30 gm PO UD PRN; Protocol PRN Reason: Hypoglycemia Protocol Stop: 07/14/18 21:46 Glucose (Dex4 Glucose) 4 - 8 tabs PO UD PRN; Protocol PRN Reason: Hypoglycemia Protocol Stop: 07/14/18 21:46 Insulin Aspart (Novolog Flexpen) 0 units SC ACHS [facility] Stop: 07/14/18 21:46 Last Admin: 06/15/18 12:53 Dose: 15 units Documented by: Insulin Glargine (Lantus Solostar Pen) 0 units SC BID [facility] Stop: 07/14/18 21:59 Last Admin: 06/15/18 08:19 Dose: 20 units Documented by: Levalbuterol HCl (Xopenex 0.63 Mg/3 Ml Neb) 0.63 mg INH Q4H PRN PRN Reason: Wheezing Stop: 07/14/18 21:46 Lorazepam (Ativan) 1 mg PO DAILY PRN PRN Reason: Anxiety Stop: 07/14/18 21:46 Magnesium Oxide (Mag-Ox) 400 mg PO BID [facility] Stop: 07/15/18 08:59 Last Admin: 06/15/18 08:18 Dose: 400 mg Documented by: Magnesium Oxide (Mag-Ox) 400 mg PO BID [facility] Stop: 07/15/18 10:14 Last Admin: 06/15/18 12:51 Dose: 400 mg Documented by: Miscellaneous (Carbohydrates For Hypoglycemia) 15 - 30 gm PO UD PRN PRN Reason: Hypoglycemia Treatment Stop: 07/14/18 21:46 Montelukast Sodium (Singulair) 10 mg PO HS [facility] Stop: 07/15/18 20:59 Nystatin (Nystatin) 1 appln EXT BID PRN PRN Reason: Rash Stop: 07/14/18 21:46 Pantoprazole Sodium (Protonix) 40 mg PO HS [facility] Stop: 07/15/18 20:59 Polyethylene Glycol (Miralax Powder Packet) 17 gm PO DAILY PRN PRN Reason: Constipation Stop: 07/14/18 21:46 Ranitidine HCl (Zantac) 150 mg PO BID [facility] Stop: 07/14/18 21:46 Last Admin: 06/15/18 08:13 Dose: 150 mg Documented by: Fluticasone/Salmeterol (Advair Diskus 500/50) 1 puffs INH BID [facility] Stop: 07/14/18 21:46 Last Admin: 06/15/18 08:14 Dose: 1 puffs Documented by: Sodium Chloride ([place] Nasal) 0 sprays NA PRN PRN; Protocol PRN Reason: Dryness Stop: 07/15/18 00:00 Sotalol HCl (Betapace) 40 mg PO BID [facility] Stop: 07/15/18 05:59 Last Admin: 06/15/18 06:01 Dose: 40 mg Documented by: Tiotropium [place] (Spiriva) 2 puffs INH HS [facility] Stop: 07/15/18 20:59 Vitamin D (Vitamin D3) 5,000 units PO DAILY [facility] Stop: 07/15/18 08:59 Last Admin: 06/15/18 08:15 Dose: 5,000 units Documented by:
[2018-06-16] MEDS: FLUTICASONE/SALMETEROL (ADVAIR) 500/50 INH 14 PUFF INH SCH (08:24)
[2018-06-16] MEDS: FERROUS SULFATE 325 MG TAB PO SCH (08:24)
[2018-06-16] MEDS: CHOLECALCIFEROL 1,000 UNITS TAB PO SCH (08:28)
[2018-06-16] MEDS: dilTIAZem HCL 120 MG CAPCR PO SCH (08:30)
[2018-06-16] MEDS: SOTALOL HCL 80 MG TAB PO SCH (08:30)
[2018-06-16] MEDS: MAGNESIUM OXIDE 400 MG TAB PO SCH ×2 (08:31)
[2018-06-16] MEDS: APIXABAN 5 MG TABLET PO SCH (08:32)
[2018-06-16] MEDS: INSULIN ASPART 100 UNITS/ML 3 ML PEN SC SCH ×2 (08:33→12:41)
[2018-06-16] MEDS: INSULIN GLARGINE SOLOSTAR 100 UNITS/ML 3 ML PEN SC SCH (08:34)
[2018-06-16 09:30] LABS: BUN Creatinine Ratio 24.2 (10-20); Calcium 8.7 mg/dl (8.5-10.1); Creatinine Clr Calc Pharmacy 102.6 ml/min; Est GFR (African American) 100.2; Est GFR (Non-African American) 86.4
--- NOTE | 2018-06-16 09:48 | Cardiology Progress Note ---
Date of Service June 16, 2018 Assessment & Plan (1) Atrial fibrillation with RVR: has subsided with increase of diltiazem will d/c to home with increased dose of 180mg daily unfortunately, unable to uptitrate sotalol given QT interval approaching 500 ms would consider outpatient evaluation with EP for possible PVI pt does appear to be a viable candidate given her: normal left atrial size, lack of mitral valve disease and inability to tolerate antiarrhythmics my office will arrange cardiac f/u with Dr. Mosley in 2-4 weeks cont Eliquis uninterrupted (2) H/O: CVA (cerebrovascular accident): stable on Eliquis (3) REENA (obstructive sleep apnea): cont nocturnal cpap (4) Chest pain: chest and shoulder heaviness upon presentation resolved with cardioversion to sinus cardiac enzymes negative will arrange for outpatient Lexiscan nuclear stress test to rule out ischemia Subjective Pt seen and examined, states that she feels well today. Palpitations have all but resolved since increasing cardizem yesterday. Anxious for discharge today. Denies cp, sob, palpitations, lightheadedness or dizziness. Tele reviewed: sinus rhythm with occasional PAC's, no sustained runs of afib. Review of Systems All systems reviewed & are unremarkable except as noted in HPI & below Physical Exam Vital Signs (Past 24 Hours): Last Vital Signs Temp 36.4 C L 06/16/18 08:04 Pulse 70 06/16/18 08:04 Resp 16 06/16/18 08:04 BP 121/73 06/16/18 08:04 Pulse Ox 95 06/16/18 08:04 Physical Exam: General: Awake, alert and oriented x 3. No acute distress. HEENT: Normocephalic, atraumatic. Pupils equal, round and reactive to light and accommodation. Extraocular muscles are intact. Anicteric sclera. Moist mucous membranes. Neck: No JVD. No bruit. Cardiovascular: Regular. Positive S-4. Normal S-1 and S-2. No S-3. No murmurs or rubs. Pulmonary: Clear to auscultation B/L. No rales, rhonchi or wheezing Abdomen: Bowel sounds x 4, soft. No rebound, guarding or tenderness. No organomegaly. Extremities: No clubbing, cyanosis or edema. +2 pedal pulses bilaterally. Skin: Warm and dry.
[2018-06-16] MEDS ORDERED: dilTIAZem HCL 30 MG TAB PO STA (09:50)
--- NOTE | 2018-06-16 13:42 | Hospitalist Progress Note ---
Date of Service June 16, 2018 Assessment & Plan (1) Palpitations: (2) Paroxysmal atrial fibrillation: Patient is a 67yo F with a PMH of paroxysmal A. fib (on anticoagulation), DM II, COPD, history of CVA and other problems presents with palpitations. Afib RVR Diltiazem dose increased to 180mg daily continue sotalol Continue Eliquis for anticoagulation Appreciate cardiology Input Monitor electrolytes EP study as outpatient for possible PVI (3) Diabetes mellitus, type II: A1C: 7.1: June 2018 Hold victoza, metformin, 70/30 insulin while in-patient Continue ISS, Lantus Monitor BGs (4) COPD (chronic obstructive pulmonary disease): No signs of exacerbation Continue Spiriva, Advair, singulair Xopenex PRN (5) Mood disorder: Continue Lamictal, Ativan PRN H/O CVA REENA Hyperlipidemia Arthritis Stable Continue home meds DVT Px: On Eliquis Code status: FULL PCP: Marion Mosley Subjective Patient is seen and examined at bedside Doing well today Palpitations resolved Denies chest pain, SOB, dizziness, nausea Offers no other complaints Physical Exam Vital Signs (Past 24 Hours): Last Vital Signs Temp 36.2 C L 06/16/18 11:30 Pulse 62 06/16/18 11:30 Resp 18 06/16/18 11:30 BP 146/70 H 06/16/18 11:30 Pulse Ox 94 06/16/18 11:30 Physical Exam: Physical Exam: Vitals signs as noted above General Appearance:Obese, no apparent distress Head: normocephalic, Atraumatic Eyes: normal inspection, EOMI Neck: supple, Trachea midline Respiratory/Chest: Normal breath sounds, CTA Cardiovascular: S1, S2, No murmur Abdomen/GI:Soft, Non tender, Bowel sounds present Extremities/Musculoskelatal:normal inspection, Trace edema Neurologic/Psych:AAOX3, grossly no focal neurological deficits Skin: normal color, warm Results & Data Laboratory Results [facility] 06/16/18 08:18 Sodium 140 Potassium 4.0 Chloride 107 Carbon Dioxide 25 BUN 18 Creatinine 0.73 Glucose 266 H Calcium 8.7
--- NOTE | 2018-06-16 13:55 | Discharge Summary ---
Date of Service June 16, 2018 Admission HPI Per Admitting Provider Patient is a 67yo F with a PMH of paroxysmal A. fib (on anticoagulation), DM II, COPD, history of CVA and other problems mentioned below who presents with palpitations. Patient woke up during the night and felt her heart racing and thought she was in A Fib. [place] like she could not catch her breath and had heaviness in left shoulder. Denies lightheadedness, dizziness or chest pain. Took her morning dose of diltiazem and sotolol prior to arrival in ED. Upon arrival, patient was found to be in normal sinus rhythm with EKG of HR of 96. CXR unremarkable. No electrolyte changes noted. Has not been consuming caffeine or alcohol. Feels tired now and anxious that arrythmia will return once she goes home. Denies fever, chills, headache, chest pain, SOB, nausea, vomiting, abdominal pain, dysuria, diarrhea or constipation. Admission Exam Per Admitting Provider General Appearance: WD/WN, no apparent distress, sitting at side of bed, + anxious Head: normocephalic, atraumatic Eyes: normal inspection, PERRL, EOMI ENT: hearing grossly normal, pharynx normal (moist mucous membranes) Neck: supple, no JVD, no adenopathy Respiratory/Chest: lungs clear to auscultation. No wheezes, rales or rhonci. No respiratory distress or accessory muscle use Cardiovascular: regular rate, rhythm, no murmur, normal peripheral pulses, trace BLE edema Abdomen/GI: normal bowel sounds, soft, non-tender to palpation Extremities/Musculoskelatal: normal inspection, no calf tenderness, normal capillary refill, no pedal edema Neurologic/Psych: alert, normal mood/affect, oriented x 3 Skin: normal color, warm/dry Principal Diagnosis Discharge Information Discharge Diagnosis Atrial Fibrillation Discharge Goals Decrease discomfort,Improve function,Improve disease control Discharge Activity Limitations Resume your previous activity Discharge Data Allergies Allergy/AdvReac Type Severity Reaction Status Date / Time Cephalosporins Allergy Intermediate RASH Verified 06/14/18 17:30 Sulfa (Sulfonamide Allergy Intermediate "Sulfa Verified 06/14/18 17:30 Antibiotics) Drugs = rash" terconazole Allergy Intermediate ITCHING, Verified 06/14/18 17:30 BURNING penicillin G Allergy Mild RASH Verified 06/14/18 17:30 amoxicillin Allergy Unknown UNKNOWN Verified 06/14/18 17:30 clarithromycin Allergy Unknown UNKNOWN Verified 06/14/18 17:30 clavulanic acid Allergy Unknown UNKNOWN Verified 06/14/18 17:30 adhesive AdvReac Mild BAND-AIDS Verified 06/14/18 17:30 = SKIN IRRITATION Consultations 06/14/18 18:09 ED Decision to Admit Stat 06/15/18 11:06 Consult Cardiology Routine Procedures Performed CXR: Chronic change. No acute process. Hospital Course (1) Palpitations: (2) Paroxysmal atrial fibrillation: Patient is a 67yo F with a PMH of paroxysmal A. fib (on anticoagulation), DM II, COPD, history of CVA and other problems presents with palpitations. Afib RVR Diltiazem dose increased to 180mg daily continue sotalol Continue Eliquis for anticoagulation Appreciate cardiology Input Monitor electrolytes EP study as outpatient for possible PVI (3) Diabetes mellitus, type II: A1C: 7.1: June 2018 Hold victoza, metformin, 70/30 insulin while in-patient Continue ISS, Lantus Monitor BGs (4) COPD (chronic obstructive pulmonary disease): No signs of exacerbation Continue Spiriva, Advair, singulair Xopenex PRN (5) Mood disorder: Continue Lamictal, Ativan PRN H/O CVA ERENA Hyperlipidemia Arthritis Stable Continue home meds DVT Px: On Eliquis Code status: FULL PCP: Marion Mosley Total Time Total Time Spent Total Time Spent (In Minutes): 35 minutes Total Time Includes: Examination of the Patient, Discharge Planning, Medication Reconciliation, Communication With Other Providers and Other Discharge Plan Discharge Items Patient Disposition: Home - Self-Care Reason For Visit: PALPITATIONS Discharge Diagnosis: Atrial Fibrillation Discharge Goals: Decrease discomfort, Improve disease control and Improve function Activity: Resume your previous activity Exercise/Sports: Gradually increase as tolerated Non-emergency contact: Primary Care Provider and [facility] Call non-emergency contact if: you have any medication questions, your symptoms worsen, your pain is not controlled, your pain is worsening, your pain is unusual for you, your pain is concerning for you, you have a fever, your temperature is above 100.5, your temperature is above 101 and your temperature is above 101.5 Follow-up/Referrals: Sabine Mosley DO [Primary Care Provider] - Diet: Carb Consistent or DM2 and Heart Healthy Addtl Provider Instructions: Follow up with your PCP on 06/22/18 at 1:15pm Follow up with your Tile [facility] in 2-4 weeks Get Electrophysiology (EP) study as outpatient as per the recommendations from your [facility] Seek immediate medical attention if your symptoms reoccur or worsen Medications Changes: Your Diltiazem dose is increased to 180mg daily Prescriptions: New diltiazem HCl 180 mg Capsule,Extended Release 24hr 180 mg PO DAILY 30 Days Qty: 30 RF: 1 Continued atorvastatin 40 mg Tablet 40 mg PO DAILY RF: 0 levalbuterol HCl 0.63 mg/3 mL Solution For Nebulization 0.63 mg INHALATION Q4H PRN (Reason: Wheezing) RF: 0 sotalol [Sotalol AF] 80 mg Tablet 40 mg PO Q12H RF: 0 clobetasol 0.05 % Cream 1 applic TOPICAL UD RF: 0 acetaminophen [Tylenol Arthritis Pain] 650 mg Tablet Extended Release 650 - 1,300 mg PO DAILY RF: 0 pantoprazole 40 mg Tablet,Delayed Release (Dr/Ec) 40 mg PO DAILY RF: 0 ferrous sulfate 325 mg (65 mg iron) Tablet 325 mg PO BID RF: 0 Premarin 0.625 mg/gram Cream 1 dose Vaginal HS RF: 0 metformin 1,000 mg Tablet 1,000 mg PO BID RF: 0 nystatin 100,000 unit/gram Cream 1 applic TOPICAL BID PRN (Reason: Rash) RF: 0 ranitidine HCl 150 mg Tablet 150 mg PO BID RF: 0 fluticasone-salmeterol 500-50 mcg/dose Blister With Device 1 inh INHALATION BID RF: 0 montelukast 10 mg Tablet 10 mg PO DAILY RF: 0 codeine-guaifenesin [Cheratussin AC] 10-100 mg/5 mL Liquid 10 ml PO HS PRN (Reason: Cough) RF: 0 lorazepam 1 mg Tablet 1 mg PO DAILY PRN (Reason: Anxiety) RF: 0 bisacodyl 5 mg Tablet 5 mg PO DAILY PRN (Reason: Constipation) RF: 0 magnesium 200 mg Tablet 400 mg PO BID RF: 0 cranberry extract [Cranberry Concentrate] 500 mg Capsule 1,000 mg PO DAILY RF: 0 Spiriva with HandiHaler 18 mcg Capsule, W/Inhalation Device 1 cap INHALATION DAILY RF: 0 cinnamon bark [Cinnamon] 500 mg Capsule 1,000 mg PO BID RF: 0 insulin NPH and regular human 100 unit/mL (70-30) Insulin Pen 45 unit SUBCUT BID RF: 0 Basaglar KwikPen U-100 Insulin 100 unit/mL (3 mL) Insulin Pen 40 unit SUBCUT BID RF: 0 cholecalciferol (vitamin D3) 5,000 unit Tablet 5,000 unit PO DAILY RF: 0 Victoza 2-Blaine 0.6 mg/0.1 mL (18 mg/3 mL) Pen Injector 0.6 mg SUBCUT DAILY RF: 0 [place] 3-6-9 Fatty Acids 400-400-200 mg Capsule 1 cap PO DAILY RF: 0 One-A-Day Womens Formula 18 mg iron-400 mcg-500 mg Tablet 1 tab PO DAILY RF: 0 Eliquis 5 mg Tablet 5 mg PO BID RF: 0 guaifenesin [Mucinex] 600 mg Tablet Extended Release 12hr 600 mg PO DAILY PRN (Reason: CHEST CONGESTION) RF: 0 lamotrigine 150 mg tablet 150 mg PO DAILY RF: 0 Discontinued diltiazem HCl 120 mg Tablet 120 mg PO QAM RF: 0 Stand-Alone Forms: Formerly [facility], [facility]–1983 Discharge Orders: Discharge Order (Routine); Ordered 06/16/18 Ordered By: Kj Martinez Admission Data Admit Date/Time: 06/14/18 19:39 Attending Provider: Kj Martinez Admit Provider: Magdalene Steward Primary Care Provider: Sabine Mosley Other Providers: Magdalene Steward ; Stone Rivera Service: Telemetry Other Interventions: Discharge Summary Assessment (RN) Last Done: 06/16/18 14:09 Pending Studies at Discharge: No DC Date/Time DO NOT enter until pt leaves facility: 06/16/18 14:50
[2018-06-17] MEDS ORDERED: dilTIAZem HCL 180 MG CAPCR PO SCH (09:00)
== END 2018-06-16 14:50 | disposition home or self-care (01) ==
LOC: ED 16:10 → 2W 16:10 → SUATTDRO 19:39 → 2W 21:16

== ENCOUNTER 2019-11-03 17:30 | Inpatient (IN) ==
[2019-11-03] MEDS ORDERED: SODIUM CHLORIDE 0.9% 1000ML 500 ML IV ONE (17:56)
[2019-11-03] MEDS ORDERED: MoRPHine SULFATE 4 MG/ML 1 ML CARP\\VIAL IV STA (17:56)
[2019-11-03 18:17] LABS: Basophils # (auto) 0.04 K/uL (0-0.2); Basophils % (auto) 0.3 %; Eosinophils # (auto) 0.12 K/uL (0-0.5); Eosinophils % (auto) 0.8 %; Hematocrit (blood only) 43.3 % (37-47); Hemoglobin 14.1 g/dL (12.0-16.0); Immature Granulocytes # (auto) 0.05 K/uL (0.00-0.02); Immature Granulocytes % (auto) 0.3 %; Lymphocytes # (auto) 1.97 K/uL (1.2-3.4); Lymphocytes % (auto) 13.3 %; Mean Corpuscular Hemoglobin 29.7 pg (25-34); Mean Corpuscular Hgb Conc 32.6 g/dL (32-36); Mean Corpuscular Volume 91.2 fL (80-100); Mean Platelet Volume 10.5 fL (7.4-10.4); Monocytes # (auto) 0.95 K/uL (0.11-0.59); Monocytes % (auto) 6.4 %; Neutrophils # (auto) 11.67 K/uL (1.4-6.5); Neutrophils % (auto) 78.9 %; Platelet Count 249 K/uL (130-400); RDW Coefficient of Variation 14.5 % (11.5-14.5); RDW Standard Deviation 48.8 fL (36.4-46.3); Red Blood Count 4.75 M/uL (4.2-5.4)
--- NOTE | 2019-11-03 18:22 | Emergency Department Note ---
Impression & Plan Renal colic, Atrial fibrillation with RVR, Hydronephrosis ED Provider Note NAME: ASHER JACKSON AGE: 69 SEX: F : 1950 ARRIVES VIA: Walk-In INFORMANT: Patient ED PROVIDER(S): Mitch Rowan DO CHIEF COMPLAINT: Lower abdominal cramps HPI: Patient is a 9-year-old female who presents the ER for lower abdominal belly cramping. This started yesterday and then resolved after she had a bowel movement. It started again today. She describes as a crampy pain 10 out of 10. Is bilateral lower pelvic region. She has taken Metamucil and today she took some MiraLAX. Previous history of hysterectomy. No other abdominal surgeries. Does have a history of A. fib. She takes Eliquis. She notes that she took her medications late tonight which included sotalol and calcium channel patsy due to the belly pain earlier. She denies any nausea vomiting. No dysuria urgency or frequency. No vaginal bleeding or vaginal discharge. ROS: See above HPI for pertinent positives & negatives. A total of 10 systems reviewed and were otherwise negative. PAST MEDICAL HISTORY:See Below PAST SURGICAL HISTORY:See Below FAMILY HISTORY:See Below SOCIAL HISTORY:See Below HOME MEDICATIONS:See Below ALLERGIES:See Below VITALS:See Below PHYSICAL EXAMINATION: GENERAL: Sitting up in bed, alert, obese, no acute distress, nontoxic EYE EXAM: normal conjunctiva. OROPHARYNX: no exudate, no erythema, lips, buccal mucosa, and tongue normal and mucous membranes are moist NECK: supple, no nuchal rigidity, no adenopathy, non-tender LUNGS: Clear to auscultation. Normal chest wall mechanics HEART: no murmurs, S1 normal and S2 normal ABDOMEN: abdomen soft, tender in the lower abdomen, normo-active bowel sounds, no masses, no rebound or guarding. BACK: Back is symmetrical on inspection and there is no deformity, no midline tenderness, no CVA tenderness. SKIN: no rashes and no bruising UPPER EXTREMITIES: upper extremities are grossly normal. LOWER EXTREMITIES: No pitting edema. NEURO EXAM: Normal sensorium, cranial nerves II-XII grossly intact, normal speech, no gross weakness of arms, no gross weakness of legs. MEDICAL DECISION MAKING: Patient is a 69-year-old female who presents the ER for lower abdominal pain. She sent in by her PCP. IV was established blood work was obtained. Labs show leukocytosis of 14,000. No significant anemia. BMP was unremarkable. Lactate was slightly elevated at 2.4 but was ordered by the hospitalist. LFTs bilirubin was unremarkable. Lipase was normal. UA had leukocytes and white blood cells. CT shows 5 mm distal stone. She was given multiple doses of IV narcotics. She still uncomfortable. She is in A. fib and is anticoagulated. Heart rate was up slightly I did not give her any rate controlling medications as I did feel that this is likely combination of the pain. With the leukocytes and white cells did consider infection and cover her with IV antibiotics although I favor this is less likely. Patient was updated bedside. Discussed with hospitalist will be admitted for further work-up. Triage Nursing notes reviewed. Prior medical records reviewed Vital Signs: reviewed and remarkable for tachycardic Differential diagnosis: Differential diagnoses includes but is not limited to gastritis, peptic ulcer disease, GERD, gallbladder disease, pancreatitis, small bowel obstruction, acute coronary syndrome, pericarditis, ischemic bowel, irritable bowel disease, irritable bowel syndrome, appendicitis, diverticulitis, malignancy, hernia, urinary tract infection, torsion, perforation, trauma, infectious. ER treatment provided: See below Diagnostics interpreted by me: ECG: A. fib RVR rate of 118 Left axis Right bundle branch block ST depressions in the septal leads with T WI Normal QTC No PVCs No change from EKG 2019 Cardiac Monitoring: An order was placed for continuous cardiac monitoring. The monitor shows a rate of 121 with A. fib with RVR rhythm. Laboratory studies: As stated above and show below. Imaging studies: CT shows a 5 mm distal stone. Consultation(s): D/w with hospitalist for admission. ED COURSE: Procedures: none Critical Care: None Past Med/Surg History Social History (System 10/04/19 @ 09:15 by Cristina Vera) Smoking Status: Former smoker Second Hand Exposure: No; Hx Alcohol Use: No Hx Substance Use: No Preferred Language: Togolese Communication Ability: Effective Hospice Team Lead Required: No Beliefs That Will Affect Care: Oriental Orthodox Oriental Orthodox Beliefs: Caodaism marital status: Current Living Situation: Spouse Feels Safe at Home: Yes Allergies Allergies Allergy/AdvReac Type Severity Reaction Status Date / Time amoxicillin [From Augmentin] Allergy Severe Unknown Verified 11/03/19 19:13 Cephalosporins Allergy Intermediate RASH Verified 11/03/19 19:13 Sulfa (Sulfonamide Allergy Intermediate "Sulfa Verified 11/03/19 19:13 Antibiotics) Drugs = rash" terconazole Allergy Intermediate ITCHING, Verified 11/03/19 19:13 BURNING clarithromycin Allergy Unknown UNKNOWN Verified 11/03/19 19:13 clavulanic acid Allergy Unknown UNKNOWN Verified 11/03/19 19:13 clobetasol Allergy Unknown Unknown Verified 11/03/19 19:13 Penicillins Allergy Unknown Unknown Verified 11/03/19 19:13 adhesive AdvReac Mild BAND-AIDS Verified 11/03/19 19:13 = SKIN IRRITATION Home Meds Home Medications Medication Instructions Recorded Confirmed apixaban 5 mg tablet 5 mg PO BID tab 11/11/18 11/03/19 atorvastatin 40 mg tablet 40 mg PO PM #90 tab 11/11/18 11/03/19 cinnamon bark 500 mg capsule 1,000 mg PO BID 11/11/18 11/03/19 loratadine 10 mg tablet 10 mg PO PM tab 11/11/18 11/03/19 metformin 1,000 mg tablet 1,000 mg PO BID tab 11/11/18 11/03/19 cholecalciferol (vitamin D3) 125 5,000 unit PO QAM cap 12/10/18 11/03/19 mcg (5,000 unit) capsule diltiazem HCl 120 mg 120 mg PO QAM 12/10/18 11/03/19 capsule,extended release 24 hr magnesium oxide 400 mg (241.3 mg 400 mg PO BID tab 12/10/18 11/03/19 magnesium) tablet multivitamin 1 tab PO QAM 12/10/18 11/03/19 nystatin 100,000 unit/gram topical 1 applic TOPICAL DAILY PRN gm 12/10/18 11/03/19 powder omega-3 fatty acids 1,000 mg 1,000 mg PO QAM 12/10/18 11/03/19 capsule lactobacillus combination no.9 4 4,000 mmu cells PO QAM 01/18/19 11/03/19 billion cell capsule sotalol 80 mg tablet 40 mg PO BID tab 01/18/19 11/03/19 [id number]-igsvinyhp-gwmxmfim 1 puffs INH PM 08/28/19 11/03/19 [Trelegy Ellipta] acetaminophen [Tylenol Arthritis 650 mg PO Q12H PRN 11/03/19 11/03/19 Pain] bisacodyl 5 mg PO HS PRN 11/03/19 11/03/19 clobetasol 1 applic TOPICAL BID PRN 11/03/19 11/03/19 conjugated estrogens 0.625 mg VAGINAL DIRECTED 11/03/19 11/03/19 cranberry extract 1,000 mg PO DAILY 11/03/19 11/03/19 famotidine 20 mg PO DAILY 11/03/19 11/03/19 yxsmgmdbd-clq-Q-danny-herbal 21 1 tab PO DAILY 11/03/19 11/03/19 [Glucosamine-MSM Complex] guaifenesin [Mucinex] 600 mg PO Q12H PRN 11/03/19 11/03/19 insulin asp prt-insulin aspart 45 unit SUBCUT BIDM 11/03/19 11/03/19 [Novolog Mix 70-30 U-100 Insuln] insulin glargine [Basaglar KwikPen 40 unit SUBCUT BID 11/03/19 11/03/19 U-100 Insulin] ipratropium bromide 2 spray INTRANASAL BID 11/03/19 11/03/19 lamotrigine 150 mg PO DAILY 11/03/19 11/03/19 levalbuterol HCl 0.63 mg INH Q4H PRN 11/03/19 11/03/19 liraglutide [Victoza 3-Blaine] 1.8 mg SUBCUT DAILY 11/03/19 11/03/19 lorazepam [Ativan] 1 mg PO DAILY PRN 11/03/19 11/03/19 methocarbamol 500 mg PO TID PRN 11/03/19 11/03/19 montelukast [Singulair] 10 mg PO DAILY 11/03/19 11/03/19 nystatin-triamcinolone 1 applic TOPICAL DIRECTED PRN 11/03/19 11/03/19 pantoprazole 40 mg PO DAILY 11/03/19 11/03/19 phenazopyridine [Pyridium] 200 mg PO TID PRN 11/03/19 11/03/19 vitamin B complex-folic acid 0 mg PO DAILY 11/03/19 11/03/19 Previous Rx's Medication Instructions Recorded CPAP Machine #1 ea 12/10/18 levalbuterol tartrate 45 2 puffs INH Q6H PRN #3 inhaler 06/21/19 mcg/actuation aerosol inhaler nebulizer accessories #1 ea 06/27/19 Results & Data (ED) Vital Signs Vital Signs - 24 hr 11/03/19 17:38 11/03/19 18:02 11/03/19 18:23 Temperature 36.9 C Temperature Source Oral Pulse Rate 116 H 137 H Pulse Rate [Apical] 124 H Pulse Rhythm Irregular Pulse Rhythm [Apical] Irregular Pulse Strength [Apical] Normal Respiratory Rate 20 14 16 Respiratory Effort / Characteristics Non-Labored Non-Labored Spontaneous Respiratory Depth Normal Normal Respiratory Pattern Regular Blood Pressure 116/80 Blood Pressure [Left Arm] 118/92 Blood Pressure Mean 92 Blood Pressure Mean [Left Arm] 100 Blood Pressure Position Sitting Blood Pressure Position [Left Arm] Semi-fowlers Pulse Oximetry 94 94 94 Oxygen Delivery Method Room Air Room Air Room Air Sepsis Recent Fever Within 48 Hours No Sepsis New/Unexplained Change in Mental Status No Sepsis Action Taken by Nursing No Action Required 11/03/19 20:48 11/03/19 21:34 Temperature Temperature Source Pulse Rate Pulse Rate [Apical] 112 H 100 H Pulse Rhythm Pulse Rhythm [Apical] Pulse Strength [Apical] Respiratory Rate 20 20 Respiratory Effort / Characteristics Non-Labored Spontaneous Non-Labored Spontaneous Respiratory Depth Normal Normal Respiratory Pattern Regular Regular Blood Pressure Blood Pressure [Left Arm] 154/112 H 136/100 Blood Pressure Mean Blood Pressure Mean [Left Arm] 126 112 Blood Pressure Position Blood Pressure Position [Left Arm] Sitting Pulse Oximetry 95 93 Oxygen Delivery Method Room Air Room Air Sepsis Recent Fever Within 48 Hours Sepsis New/Unexplained Change in Mental Status Sepsis Action Taken by Nursing Laboratory Data Result diagrams: 11/03/19 18:02 11/03/19 18:02 Lab Results 11/03/19 11/03/19 11/03/19 Range/Units 17:55 18:02 18:02 WBC 14.80 H (4.8-10.8) K/uL RBC 4.75 (4.2-5.4) M/uL Hgb 14.1 (12.0-16.0) g/dL Hct 43.3 (37-47) % MCV 91.2 (80-100) fL MCH 29.7 (25-34) pg MCHC 32.6 (32-36) g/dL RDW Std Deviation 48.8 H (36.4-46.3) fL RDW Coeff of [place] 14.5 (11.5-14.5) % Plt Count 249 (130-400) K/uL MPV 10.5 H (7.4-10.4) fL Immature Gran % (Auto) 0.3 % Neut % (Auto) 78.9 % Lymph % (Auto) 13.3 % [place] % (Auto) 6.4 % Eos % (Auto) 0.8 % Baso % (Auto) 0.3 % Neut # (Auto) 11.67 H (1.4-6.5) K/uL Lymph # (Auto) 1.97 (1.2-3.4) K/uL [place] # (Auto) 0.95 H (0.11-0.59) K/uL Eos # (Auto) 0.12 (0-0.5) K/uL Baso # (Auto) 0.04 (0-0.2) K/uL Immature Gran # (Auto) 0.05 H (0.00-0.02) K/uL APTT (21.0-31.0) Seconds PTT Ratio Sodium 137 (136-145) mmol/L Potassium 4.1 (3.5-5.1) mmol/L Chloride 106 (98-107) mmol/L Carbon Dioxide 23 (21-32) mmol/L Anion Gap 8.0 (3-11) BUN 19 H (7-18) mg/dl Creatinine 0.86 (0.6-1.2) mg/dl Est Cr Clr Drug Dosing [employer] Est GFR ( Amer) 81.0 Est GFR (Non-Af Amer) 69.9 BUN/Creatinine Ratio 22.6 H (10-20) Glucose 175 H (70-99) mg/dl Lactate (0.4-2.0) mmol/L Calcium 9.5 (8.5-10.1) mg/dl Magnesium 1.7 L (1.8-2.4) mg/dl Total Bilirubin 1.0 (0.2-1) mg/dl AST 22 (15-37) U/L ALT 39 (12-78) U/L Alkaline Phosphatase 96 (45-117) U/L Total Protein 7.9 (6.4-8.2) gm/dl Albumin 3.9 (3.4-5.0) gm/dl Globulin 4.0 (2.5-4.0) gm/dl Albumin/Globulin Ratio 1.0 (0.9-2) Lipase 113 (73-393) U/L TSH 1.130 (0.300-4.500) uIu/ml Urine Color [place] Urine Appearance Turbid A (Clear) Urine pH 5.0 (4.5-7.5) Ur Specific [place] 1.019 (1.000-1.030) Urine Protein 2+ H (Negative) Urine Glucose (UA) Negative (Negative) Urine Ketones Negative (Negative) Urine Blood 3+ H (Negative) Urine Nitrite Negative (Negative) Urine Bilirubin Negative (Negative) Urine Urobilinogen Negative (Negative) Ur Leukocyte Esterase 1+ H (Negative) Urine WBC (Auto) 10-30 H (0-5) /hpf Urine RBC (Auto) >30 H (0-4) /hpf U Hyaline Cast (Auto) 1-5 (0-5) /lpf U Epithel Cells (Auto) 20-30 H (0-5) /lpf Urine Bacteria (Auto) Negative (Negative) 11/03/19 11/03/19 Range/Units 18:02 20:34 WBC (4.8-10.8) K/uL RBC (4.2-5.4) M/uL Hgb (12.0-16.0) g/dL Hct (37-47) % MCV (80-100) fL MCH (25-34) pg MCHC (32-36) g/dL RDW Std Deviation (36.4-46.3) fL RDW Coeff of [place] (11.5-14.5) % Plt Count (130-400) K/uL MPV (7.4-10.4) fL Immature Gran % (Auto) % Neut % (Auto) % Lymph % (Auto) % [place] % (Auto) % Eos % (Auto) % Baso % (Auto) % Neut # (Auto) (1.4-6.5) K/uL Lymph # (Auto) (1.2-3.4) K/uL [place] # (Auto) (0.11-0.59) K/uL Eos # (Auto) (0-0.5) K/uL Baso # (Auto) (0-0.2) K/uL Immature Gran # (Auto) (0.00-0.02) K/uL APTT 32.5 H (21.0-31.0) Seconds PTT Ratio 1.2 Sodium (136-145) mmol/L Potassium (3.5-5.1) mmol/L Chloride (98-107) mmol/L Carbon Dioxide (21-32) mmol/L Anion Gap (3-11) BUN (7-18) mg/dl Creatinine (0.6-1.2) mg/dl Est Cr Clr Drug Dosing Est GFR ( Amer) Est GFR (Non-Af Amer) BUN/Creatinine Ratio (10-20) Glucose (70-99) mg/dl Lactate 2.3 H* (0.4-2.0) mmol/L Calcium (8.5-10.1) mg/dl Magnesium (1.8-2.4) mg/dl Total Bilirubin (0.2-1) mg/dl AST (15-37) U/L ALT (12-78) U/L Alkaline Phosphatase (45-117) U/L Total Protein (6.4-8.2) gm/dl Albumin (3.4-5.0) gm/dl Globulin (2.5-4.0) gm/dl Albumin/Globulin Ratio (0.9-2) Lipase (73-393) U/L TSH (0.300-4.500) uIu/ml Urine Color Urine Appearance (Clear) Urine pH (4.5-7.5) Ur Specific [place] (1.000-1.030) Urine Protein (Negative) Urine Glucose (UA) (Negative) Urine Ketones (Negative) Urine Blood (Negative) Urine Nitrite (Negative) Urine Bilirubin (Negative) Urine Urobilinogen (Negative) Ur Leukocyte Esterase (Negative) Urine WBC (Auto) (0-5) /hpf Urine RBC (Auto) (0-4) /hpf U Hyaline Cast (Auto) (0-5) /lpf U Epithel Cells (Auto) (0-5) /lpf Urine Bacteria (Auto) (Negative) Administered Medications Magnesium Sulfate/Dextrose (Magnesium Sulfate / D5w) 1 gm in 100 mls @ 50 mls/hr IV Q2H GARIMA Stop: 11/04/19 00:59 Last Admin: 11/03/19 21:22 Dose: 50 mls/hr Documented by: [id number] Discontinued Medications Sodium Chloride (Nss 1000ml) 500 mls @ 999 mls/hr IV .Q31M ONE Stop: 11/03/19 18:26 Last Infusion: 11/03/19 19:13 Dose: 0 mls/hr Documented by: [id number] Admin: 11/03/19 18:42 Dose: 999 mls/hr Documented by: [id number] Ertapenem 1,000 mg/ Sodium (Chloride) 60 mls @ 100 mls/hr IV TODAY@2015 GARIMA Stop: 11/03/19 20:50 Last Admin: 11/03/19 21:22 Dose: Not Given Documented by: [id number] Aztreonam 2,000 mg/ Dextrose 110 mls @ 100 mls/hr IV NOW STA; Protocol Stop: 11/03/19 21:44 Last Admin: 11/03/19 21:22 Dose: 100 mls/hr Documented by: [id number] Ioversol (Optiray 320 100ml) 94 ml IV ONCE ONE Stop: 11/03/19 19:16 Last Admin: 11/03/19 19:15 Dose: 94 ml Documented by: [id number] Morphine Sulfate (Morphine Sulfate) 4 mg IV NOW STA Stop: 11/03/19 17:57 Last Admin: 11/03/19 18:41 Dose: 4 mg Documented by: [id number] Morphine Sulfate (Morphine Sulfate) 6 mg IV NOW STA Stop: 11/03/19 20:02 Last Admin: 11/03/19 20:34 Dose: 6 mg Documented by: [id number] Sotalol HCl (Betapace) 40 mg PO NOW ONE Stop: 11/03/19 20:39 Last Admin: 11/03/19 21:22 Dose: 40 mg Documented by: [id number] Tamsulosin HCl (Flomax) 0.4 mg PO NOW ONE Stop: 11/03/19 20:39 Last Admin: 11/03/19 21:22 Dose: 0.4 mg Documented by: [id number] Discharge Plan Visit Data Chief Complaint: Kidney Stone Stated Complaint: kidney stones ED Provider: Mitch Rowan Discharge Problem: Renal colic, Atrial fibrillation with RVR, Hydronephrosis Forms Stand Alone Forms: [facility] Prescriptions Prescriptions: No Action levalbuterol tartrate [Xopenex HFA] 45 mcg/actuation HFA aerosol inhaler 2 puffs INH Q6H PRN (Reason: shortness of breath or wheezing) Qty: 3 RF: 1 (DME) nebulizer accessories Kit See Rx Instructions .ROUTE .MEDSUPPLY Qty: 1 RF: 0 cinnamon bark [Cinnamon] 500 mg capsule 1,000 mg PO BID RF: 0 Eliquis 5 mg tablet 5 mg PO BID RF: 0 loratadine 10 mg tablet 10 mg PO PM RF: 0 atorvastatin 40 mg tablet 40 mg PO PM Qty: 90 RF: 0 metformin 1,000 mg tablet 1,000 mg PO BID RF: 0 diltiazem HCl [Cardizem CD] 120 mg capsule,extended release 24hr 120 mg PO QAM RF: 0 omega-3 fatty acids 1,000 mg capsule 1,000 mg PO QAM RF: 0 magnesium oxide 400 mg (241.3 mg magnesium) tablet 400 mg PO BID RF: 0 multivitamin [Daily Multi-Vitamin] tablet 1 tab PO QAM RF: 0 nystatin 100,000 unit/gram powder 1 applic topical DAILY PRN (Reason: irritation) RF: 0 cholecalciferol (vitamin D3) 5,000 unit capsule 5,000 unit PO QAM RF: 0 (DME) CPAP Machine Misc See Dose Instructions .ROUTE .MEDSUPPLY Qty: 1 RF: 0 Adult 50 Plus Probiotic 4 billion cell capsule 4,000 mmu cells PO QAM RF: 0 sotalol 80 mg tablet 40 mg PO BID RF: 0 methocarbamol 500 mg Tablet 500 mg PO TID PRN (Reason: MUSCLE SPASMS) RF: 0 lamotrigine 150 mg tablet 150 mg PO DAILY RF: 0 phenazopyridine [Pyridium] 200 mg Tablet 200 mg PO TID PRN (Reason: BLADDER PAIN) RF: 0 Glucosamine-MSM Complex Tablet 1 tab PO DAILY RF: 0 acetaminophen [Tylenol Arthritis Pain] 650 mg Tablet Extended Release 650 mg PO Q12H PRN (Reason: Pain) RF: 0 nystatin-triamcinolone 100,000-0.1 unit/gram-% Ointment 1 applic TOPICAL DIRECTED PRN (Reason: Skin Irritation) RF: 0 famotidine 20 mg Tablet 20 mg PO DAILY RF: 0 pantoprazole 40 mg Tablet,Delayed Release (Dr/Ec) 40 mg PO DAILY RF: 0 conjugated estrogens 0.625 mg/gram Cream 0.625 mg VAGINAL DIRECTED RF: 0 montelukast [Singulair] 10 mg Tablet 10 mg PO DAILY RF: 0 clobetasol 0.05 % Ointment 1 applic TOPICAL BID PRN (Reason: NEEDED) RF: 0 lorazepam [Ativan] 1 mg Tablet 1 mg PO DAILY PRN (Reason: Anxiety) RF: 0 ipratropium bromide 0.03 % [place],Non-Aerosol 2 spray INTRANASAL BID RF: 0 bisacodyl 5 mg Tablet 5 mg PO HS PRN (Reason: Constipation) RF: 0 insulin asp prt-insulin aspart [Novolog Mix 70-30 U-100 Insuln] 100 unit/mL (70-30) Solution 45 unit SUBCUT BIDM RF: 0 Basaglar KwikPen U-100 Insulin 100 unit/mL (3 mL) Insulin Pen 40 unit SUBCUT BID RF: 0 vitamin B complex-folic acid 400 mcg Tablet Extended Release 0 mg PO DAILY RF: 0 Victoza 3-Blaine 0.6 mg/0.1 mL (18 mg/3 mL) Pen Injector 1.8 mg SUBCUT DAILY RF: 0 guaifenesin [Mucinex] 600 mg Tablet Extended Release 12hr 600 mg PO Q12H PRN (Reason: Congestion) RF: 0 cranberry extract 500 mg Tablet 1,000 mg PO DAILY RF: 0 levalbuterol HCl 0.63 mg/3 mL solution for nebulization 0.63 mg INH Q4H PRN (Reason: shortness of breath or wheezing) RF: 0 Trelegy Ellipta 100-62.5-25 mcg blister with device 1 puffs INH PM RF: 0 Discharge Problem: Hydronephrosis Qualifiers: Hydronephrosis type: unspecified Qualified Code(s): N13.30 - Unspecified hydronephrosis
[2019-11-03 18:31] LABS: Appearance Urine Turbid (Clear); Bacteria Urine Automated Negative (Negative); Bilirubin Urine Negative (Negative); Blood Urine 3+ (Negative); Color Urine Orange; Epithelial Cell Urine Auto 20-30 /lpf (0-5); Glucose Urine UA Negative (Negative); Ketones Urine Negative (Negative); Leukocyte Esterase Urine 1+ (Negative); Nitrite Urine Negative (Negative); Protein Urine 2+ (Negative); RBC Urine Automated >30 /hpf (0-4); Specific Gravity Urine 1.019 (1.000-1.030); Urobilinogen Urine Negative (Negative)
[2019-11-03 18:35] LABS: Alanine Aminotransferase 39 U/L (12-78); Albumin Level 3.9 gm/dl (3.4-5.0); Aspartate Aminotransferase 22 U/L (15-37); BUN Creatinine Ratio 22.6 (10-20); Blood Urea Nitrogen 19 mg/dl (7-18); Calcium 9.5 mg/dl (8.5-10.1); Carbon Dioxide 23 mmol/L (21-32); Chloride 106 mmol/L (98-107); Est GFR (Non-African American) 69.9; Glucose 175 mg/dl (70-99); Lipase 113 U/L (73-393); Potassium 4.1 mmol/L (3.5-5.1); Sodium 137 mmol/L (136-145)
[2019-11-03 18:38] LABS: Alkaline Phosphatase 96 U/L (45-117); Total Protein 7.9 gm/dl (6.4-8.2)
[2019-11-03] MEDS ORDERED: IOVERSOL 100ml IV ONE (19:15)
--- NOTE | 2019-11-03 19:49 | CT Scan Report ---
CT abd pelvis IV con only CT DOSE: 1628.98 mGy.cm HISTORY: Pain. Nausea. lower abd pain TECHNIQUE: Multiaxial CT images of the abdomen and pelvis were performed following the use of intrave nous contrast. A dose lowering technique was utilized adhering to the principles of ALARA. COMPARISON STUDY: 05/17/2014 FINDINGS: Minimal dependent basilar atelectasis. Mild fatty replacement of the liver. Gallbladder is negative for distention. Left kidney shows mild cortical scarring. There is no evidence for left renal nephrocalcinosis or hyd ronephrosis. There is moderate right renal hydronephrosis with a small amount of perinephric fluid. The right uret er is distended and extends to a 5 mm obstructing calculus distal right ureter at and slightly proxim al to the right ureteral vesicle junction. The bladder is midline. Chronic sigmoid diverticulosis. No evidence for acute diverticulitis. Nonobstructive bowel pattern. IMPRESSION: 1. 5 mm obstructing calculus distal right ureter. 2. Moderate right renal hydroureteronephrosis. 3. Small amount of right perirenal/perinephric fluid. 4. Mild fatty replacement of the liver. ACT 112: Negative or not required by law. The above report was generated using voice recognition software. It may contain grammatical, syntax or spelling errors. Electronically signed by: Anup Mcmullen M.D. 11/03/2019 7:47 PM
[2019-11-03] MEDS ORDERED: CIPROFLOXACIN / D5W 400 MG/200 ML BAG IV STA (19:50)
[2019-11-03] MEDS ORDERED: MoRPHine SULFATE 10 MG/ML CARP/VIAL IV STA (20:01)
[2019-11-03 20:14] LABS: Magnesium 1.7 mg/dl (1.8-2.4)
[2019-11-03] MEDS ORDERED: ERTAPENEM SODIUM 1,000 MG in SODIUM CHLORIDE 0.9% 50 ML IV SCH (20:15)
--- NOTE | 2019-11-03 20:20 | XRay Report ---
XR chest 1V portable CLINICAL HISTORY: sepsis dyspnea COMPARISON STUDY: 06/14/2018 FINDINGS: Moderate increase in cardiac size. Prominent pulmonary vasculature. Potential parenchymal i nfiltrate medial right base. IMPRESSION: 1. Mild congestive heart failure. 2. Small parenchymal infiltrate medial aspect right base. ACT 112: Negative or not required by law. The above report was generated using voice recognition software. It may contain grammatical, syntax or spelling errors. Electronically signed by: Anup Mcmullen M.D. 11/03/2019 8:18 PM
[2019-11-03] MEDS ORDERED: TAMSULOSIN HCL 0.4 MG CAP PO ONE (20:38)
[2019-11-03] MEDS ORDERED: SOTALOL HCL 80 MG TAB PO ONE (20:38)
[2019-11-03] MEDS ORDERED: AZTREONAM 2,000 MG in DEXTROSE 5% 100 ML IV STA (20:39)
[2019-11-03 21:06] LABS: Partial Thromboplastin Ratio 1.2; Partial Thromboplastin Time 32.5 Seconds (21.0-31.0)
[2019-11-03] MEDS: MAGNESIUM SULFATE / D5W 1 GM/100 ML BAG IV SCH ×2 (21:22→23:58)
--- NOTE | 2019-11-03 21:29 | History & Physical Report ---
Date of Service November 03, 2019 Assessment & Plan (1) Severe sepsis: SIRS plus lactic acid elevation Secondary to complicated UTI/obstructive uropathy Rapid A. fib secondary to above Patient on Eliquis. hypertension, elevated secondary discomfort hyperlipidemia on statin Rx history CVA as per records COPD, not in acute exacerbation DM2 insulin requiring, reasonable control as of recent hemoglobin A1c of 7.09 October 2019 mood disorder, stable past tobacco abuse PCU Facilitate Sotalol Analgesia IVF, follow lactic acid Cultures, Azactam for now Add Daptomycin if lactic acidosis unimproved after initial intervention Flomax trial for obstructive uropathy Strain urine Urology consult RE obstructive uropathy N.p.o. after midnight, hold Eliquis until patient seen by Urology in anticipation of procedure Basal insulin adjusted for n.p.o. status, ISS BG goal [id number] DVT prophylaxis. SCDs while Eliquis on hold Full code Text document was generated using [employer] voice recognition software. It may contain grammatical or spelling errors. Kindly contact undersigned for clarification of any documentation item in question. History of Present Illness Chief Complaint: Abdominal/flank pain/constipation Primary Care Provider: Sabine Mosley DO History obtained from patient and records. Medical history significant for A. fib/a flutter on Eliquis, hypertension, hyperlipidemia, history CVA as per records, COPD, REENA on CPAP, DM2 insulin requiring, mood disorder, past tobacco abuse. Last confinement June 2018 for A. fib with RVR. Yesterday patient noted right sided abdominal/flank cramping with constipation symptoms followed by urinary urgency and hesitancy later followed by hematuria. No fever, no chills. No chest pain, no S OB, no cough. Patient directed by PCP to ER. Medical History as above Surgical History : Breast lesion biopsy, tonsillectomy, septoplasty, LUCERO/BSO Family History : Breast cancer, skin cancer, COPD, diabetes Personal/Social history : Past tobacco abuse, no EtOH intake, retired [employer] employee Allergies Allergy/AdvReac Type Severity Reaction Status Date / Time amoxicillin [From Augmentin] Allergy Severe Unknown Verified 11/03/19 19:13 Cephalosporins Allergy Intermediate RASH Verified 11/03/19 19:13 Sulfa (Sulfonamide Allergy Intermediate "Sulfa Verified 11/03/19 19:13 Antibiotics) Drugs = rash" terconazole Allergy Intermediate ITCHING, Verified 11/03/19 19:13 BURNING clarithromycin Allergy Unknown UNKNOWN Verified 11/03/19 19:13 clavulanic acid Allergy Unknown UNKNOWN Verified 11/03/19 19:13 clobetasol Allergy Unknown Unknown Verified 11/03/19 19:13 Penicillins Allergy Unknown Unknown Verified 11/03/19 19:13 adhesive AdvReac Mild BAND-AIDS Verified 11/03/19 19:13 = SKIN IRRITATION Home Medications Home Medications Medication Instructions Recorded Confirmed Type apixaban 5 mg tablet 5 mg PO BID tab 11/11/18 11/03/19 History atorvastatin 40 mg tablet 40 mg PO PM #90 tab 11/11/18 11/03/19 History cinnamon bark 500 mg capsule 1,000 mg PO BID 11/11/18 11/03/19 History loratadine 10 mg tablet 10 mg PO PM tab 11/11/18 11/03/19 History metformin 1,000 mg tablet 1,000 mg PO BID tab 11/11/18 11/03/19 History CPAP Machine #1 ea 12/10/18 08/10/19 Rx cholecalciferol (vitamin D3) 125 5,000 unit PO QAM cap 12/10/18 11/03/19 Histor y mcg (5,000 unit) capsule diltiazem HCl 120 mg 120 mg PO QAM 12/10/18 11/03/19 History capsule,extended release 24 hr magnesium oxide 400 mg (241.3 mg 400 mg PO BID tab 12/10/18 11/03/19 History magnesium) tablet multivitamin 1 tab PO QAM 12/10/18 11/03/19 History nystatin 100,000 unit/gram topical 1 applic TOPICAL DAILY PRN gm 12/10/18 11/03/19 History powder omega-3 fatty acids 1,000 mg 1,000 mg PO QAM 12/10/18 11/03/19 History capsule lactobacillus combination no.9 4 4,000 mmu cells PO QAM 01/18/19 11/03/19 History billion cell capsule sotalol 80 mg tablet 40 mg PO BID tab 01/18/19 11/03/19 History levalbuterol tartrate 45 2 puffs INH Q6H PRN #3 inhaler 06/21/19 11/03/19 Rx mcg/actuation aerosol inhaler nebulizer accessories #1 ea 06/27/19 08/10/19 Rx pjwgrmhpkim-tjlabbhkx-wpgnbjbk 1 puffs INH PM 08/28/19 11/03/19 History [Trelegy Ellipta] acetaminophen [Tylenol Arthritis 650 mg PO Q12H PRN 11/03/19 11/03/19 History Pain] bisacodyl 5 mg PO HS PRN 11/03/19 11/03/19 History clobetasol 1 applic TOPICAL BID PRN 11/03/19 11/03/19 History conjugated estrogens 0.625 mg VAGINAL DIRECTED 11/03/19 11/03/19 History cranberry extract 1,000 mg PO DAILY 11/03/19 11/03/19 History famotidine 20 mg PO DAILY 11/03/19 11/03/19 History ueicuqnyd-kvx-E-danny-herbal 21 1 tab PO DAILY 11/03/19 11/03/19 History [Glucosamine-MSM Complex] guaifenesin [Mucinex] 600 mg PO Q12H PRN 11/03/19 11/03/19 History insulin asp prt-insulin aspart 45 unit SUBCUT BIDM 11/03/19 11/03/19 History [Novolog Mix 70-30 U-100 Insuln] insulin glargine [Basaglar KwikPen 40 unit SUBCUT BID 11/03/19 11/03/19 History U-100 Insulin] ipratropium bromide 2 spray INTRANASAL BID 11/03/19 11/03/19 History lamotrigine 150 mg PO DAILY 11/03/19 11/03/19 History levalbuterol HCl 0.63 mg INH Q4H PRN 11/03/19 11/03/19 History liraglutide [Victoza 3-Blaine] 1.8 mg SUBCUT DAILY 11/03/19 11/03/19 History lorazepam [Ativan] 1 mg PO DAILY PRN 11/03/19 11/03/19 History methocarbamol 500 mg PO TID PRN 11/03/19 11/03/19 History montelukast [Singulair] 10 mg PO DAILY 11/03/19 11/03/19 History nystatin-triamcinolone 1 applic TOPICAL DIRECTED PRN 11/03/19 11/03/19 History pantoprazole 40 mg PO DAILY 11/03/19 11/03/19 History phenazopyridine [Pyridium] 200 mg PO TID PRN 11/03/19 11/03/19 History vitamin B complex-folic acid 0 mg PO DAILY 11/03/19 11/03/19 History Past Med/Surg History Social History (System 10/04/19 @ 09:15 by Cristina Vera) Smoking Status: Former smoker Second Hand Exposure: No; Hx Alcohol Use: No Hx Substance Use: No Preferred Language: Kittitian Communication Ability: Effective Meat Seafood Associate Required: No Beliefs That Will Affect Care: None marital status: Current Living Situation: Spouse Other Information That Helps Us Care for You: No Feels Safe at Home: Yes Safety Concerns: Feels Safe At This Time Review of Systems Review of Systems: As per HPI, all 10 systems reviewed, all other ROS negative Physical Exam Physical Exam: GENERAL: Slightly uncomfortable, morbidly obese, no respiratory distress SKIN: Normal color, warm HEENT: [place] palpebral conjunctivae, no ptosis, dry buccal mucosa NECK : Supple, short neck, no tenderness CHEST : Decreased breath sounds, no tenderness HEART : Irregular, tachycardic , no obvious murmurs ABDOMEN: distention, right-sided abdominal tenderness EXTREMITIES : Bilateral LE swelling, no LE tenderness, no other conspicuous deformities noted NEUROLOGIC : Coherent, no facial asymmetry, no other gross focality Results & Data Results & Data ([facility]) Vital Signs (Past 12 Hours) Vital Signs Temp Pulse Pulse Resp BP BP Pulse Ox 11/03/19 20:48 112 H 20 154/112 H 95 11/03/19 18:23 124 H 16 118/92 94 11/03/19 18:02 137 H 14 94 11/03/19 17:38 36.9 C 116 H 20 116/80 94 Laboratory Results Laboratory Results WBC 14.80 K/uL (4.8-10.8) H 11/03/19 18:02 RBC 4.75 M/uL (4.2-5.4) 11/03/19 18:02 Hgb 14.1 g/dL (12.0-16.0) 11/03/19 18:02 Hct 43.3 % (37-47) 11/03/19 18:02 MCV 91.2 fL (80-100) 11/03/19 18:02 MCH 29.7 pg (25-34) 11/03/19 18:02 MCHC 32.6 g/dL (32-36) 11/03/19 18:02 RDW Std Deviation 48.8 fL (36.4-46.3) H 11/03/19 18:02 RDW Coeff of Juan Diego 14.5 % (11.5-14.5) 11/03/19 18:02 Plt Count 249 K/uL (130-400) 11/03/19 18:02 MPV 10.5 fL (7.4-10.4) H 11/03/19 18:02 Immature Gran % (Auto) 0.3 % 11/03/19 18:02 Neut % (Auto) 78.9 % 11/03/19 18:02 Lymph % (Auto) 13.3 % 11/03/19 18:02 [place] % (Auto) 6.4 % 11/03/19 18:02 Eos % (Auto) 0.8 % 11/03/19 18:02 Baso % (Auto) 0.3 % 11/03/19 18:02 Neut # (Auto) 11.67 K/uL (1.4-6.5) H 11/03/19 18:02 Lymph # (Auto) 1.97 K/uL (1.2-3.4) 11/03/19 18:02 [place] # (Auto) 0.95 K/uL (0.11-0.59) H 11/03/19 18:02 Eos # (Auto) 0.12 K/uL (0-0.5) 11/03/19 18:02 Baso # (Auto) 0.04 K/uL (0-0.2) 11/03/19 18:02 Immature Gran # (Auto) 0.05 K/uL (0.00-0.02) H 11/03/19 18:02 APTT 32.5 Seconds (21.0-31.0) H 11/03/19 18:02 PTT Ratio 1.2 11/03/19 18:02 Sodium 137 mmol/L (136-145) 11/03/19 18:02 Potassium 4.1 mmol/L (3.5-5.1) 11/03/19 18:02 Chloride 106 mmol/L (98-107) 11/03/19 18:02 Carbon Dioxide 23 mmol/L (21-32) 11/03/19 18:02 Anion Gap 8.0 (3-11) 11/03/19 18:02 BUN 19 mg/dl (7-18) H 11/03/19 18:02 Creatinine 0.86 mg/dl (0.6-1.2) 11/03/19 18:02 Est Cr Clr Drug Dosing Not Reportable 11/03/19 18:02 Est GFR ( Amer) 81.0 11/03/19 18:02 Est GFR (Non-Af Amer) 69.9 11/03/19 18:02 BUN/Creatinine Ratio 22.6 (10-20) H 11/03/19 18:02 Glucose 175 mg/dl (70-99) H 11/03/19 18:02 Lactate 2.3 mmol/L (0.4-2.0) H* 11/03/19 20:34 Calcium 9.5 mg/dl (8.5-10.1) 11/03/19 18:02 Magnesium 1.7 mg/dl (1.8-2.4) L 11/03/19 18:02 Total Bilirubin 1.0 mg/dl (0.2-1) 11/03/19 18:02 AST 22 U/L (15-37) 11/03/19 18:02 ALT 39 U/L (12-78) 11/03/19 18:02 Alkaline Phosphatase 96 U/L (45-117) 11/03/19 18:02 Total Protein 7.9 gm/dl (6.4-8.2) 11/03/19 18:02 Albumin 3.9 gm/dl (3.4-5.0) 11/03/19 18:02 Globulin 4.0 gm/dl (2.5-4.0) 11/03/19 18:02 Albumin/Globulin Ratio 1.0 (0.9-2) 11/03/19 18:02 Lipase 113 U/L (73-393) 11/03/19 18:02 TSH 1.130 uIu/ml (0.300-4.500) 11/03/19 18:02 Urine Color [place] 11/03/19 17:55 Urine Appearance Turbid (Clear) A 11/03/19 17:55 Urine pH 5.0 (4.5-7.5) 11/03/19 17:55 Ur Specific [place] 1.019 (1.000-1.030) 11/03/19 17:55 Urine Protein 2+ (Negative) H 11/03/19 17:55 Urine Glucose (UA) Negative (Negative) 11/03/19 17:55 Urine Ketones Negative (Negative) 11/03/19 17:55 Urine Blood 3+ (Negative) H 11/03/19 17:55 Urine Nitrite Negative (Negative) 11/03/19 17:55 Urine Bilirubin Negative (Negative) 11/03/19 17:55 Urine Urobilinogen Negative (Negative) 11/03/19 17:55 Ur Leukocyte Esterase 1+ (Negative) H 11/03/19 17:55 Urine WBC (Auto) 10-30 /hpf (0-5) H 11/03/19 17:55 Urine RBC (Auto) >30 /hpf (0-4) H 11/03/19 17:55 U Hyaline Cast (Auto) 1-5 /lpf (0-5) 11/03/19 17:55 U Epithel Cells (Auto) 20-30 /lpf (0-5) H 11/03/19 17:55 Urine Bacteria (Auto) Negative (Negative) 11/03/19 17:[address] abdomen pelvis: 1. 5 mm obstructing calculus distal right ureter. 2. Moderate right renal hydroureteronephrosis. 3. Small amount of right perirenal/perinephric fluid. 4. Mild fatty replacement of the liver. Chest x-ray : 1. Mild congestive heart failure. 2. Small parenchymal infiltrate medial aspect right base. EKG as per my interpretation : Rate 120, A. fib, normal axis, RBBB, T wave abnormalities inferior and lateral leads
[2019-11-03] MEDS ORDERED: LACTULOSE SYRUP 20 GM/30 ML UDC PO STA (21:41)
[2019-11-03] MEDS ORDERED: HYDROmorphone INJ 0.5 MG/0.5 ML SYR IV STA (21:41)
[2019-11-03] MEDS ORDERED: POLYETHYLENE (MIRALAX) 17 GM PACK PO PRN (21:41)
[2019-11-03] MEDS ORDERED: INSULIN GLARGINE SOLOSTAR 100 UNITS/ML 3 ML PEN SC STA (21:43)
[2019-11-03] MEDS ORDERED: DOCUSATE SODIUM/SENNA 50/8.6MG TAB PO STA (21:52)
[2019-11-03 22:39] LABS: NT Pro B Type Natriuretic Pept 319 pg/ml (0-900)
[2019-11-03] MEDS ORDERED: PHENAZOPYRIDINE HCL 200 MG TAB PO PRN (22:52)
[2019-11-03] MEDS ORDERED: OXYCODONE HCL IR 5 MG TAB (IMMEDIATE RELEASE) PO PRN (22:52)
[2019-11-03] MEDS ORDERED: PROMETHAZINE HCL 12.5 MG in SODIUM CHLORIDE 0.9% 50 ML IV PRN (22:52)
[2019-11-03] MEDS ORDERED: LORazepam 0.5 MG/1 ML VIAL IV PRN (22:52)
[2019-11-03] MEDS ORDERED: HYDROmorphone INJ 1 MG/ML SYRINGE IV PRN (22:52)
[2019-11-03] MEDS ORDERED: SODIUM CHLORIDE 0.9% 500 ML IV ONE (23:00)
[2019-11-03] MEDS ORDERED: AZTREONAM CONSULT ACTIVE PRN (23:17)
[2019-11-04] MEDS: NORMOSOL-R 1,000 ML IV SCH ×3 (00:48→17:43)
[2019-11-04] MEDS ORDERED: NORMOSOL-R 1,000 ML IV SCH (02:00)
[2019-11-04 02:05] LABS: Basophils # (auto) 0.03 K/uL (0-0.2); Basophils % (auto) 0.2 %; Eosinophils # (auto) 0.04 K/uL (0-0.5); Eosinophils % (auto) 0.2 %; Hematocrit (blood only) 43.2 % (37-47); Hemoglobin 14.1 g/dL (12.0-16.0); Immature Granulocytes # (auto) 0.04 K/uL (0.00-0.02); Immature Granulocytes % (auto) 0.2 %; Lymphocytes # (auto) 1.93 K/uL (1.2-3.4); Lymphocytes % (auto) 11.3 %; Mean Corpuscular Hemoglobin 30.1 pg (25-34); Mean Corpuscular Hgb Conc 32.6 g/dL (32-36); Mean Corpuscular Volume 92.1 fL (80-100); Mean Platelet Volume 10.1 fL (7.4-10.4); Monocytes % (auto) 6.5 %; Neutrophils % (auto) 81.6 %; Platelet Count 220 K/uL (130-400); RDW Coefficient of Variation 14.6 % (11.5-14.5); RDW Standard Deviation 49.4 fL (36.4-46.3); Red Blood Count 4.69 M/uL (4.2-5.4); White Blood Count 17.04 K/uL (4.8-10.8)
[2019-11-04 02:22] LABS: BUN Creatinine Ratio 18.7 (10-20); Calcium 8.9 mg/dl (8.5-10.1); Creatinine Clr Calc Pharmacy 71.9 ml/min; Est GFR (African American) 65.1; Est GFR (Non-African American) 56.2; Magnesium 2.1 mg/dl (1.8-2.4); Potassium 4.2 mmol/L (3.5-5.1)
[2019-11-04] MEDS ORDERED: DAPTOMYCIN CONSULT ACTIVE PRN (02:46)
[2019-11-04] MEDS ORDERED: DAPTOmycin 350 MG in SYRINGE 0 ML IV SCH (03:00)
[2019-11-04] MEDS ORDERED: DAPTOmycin 500 MG in SYRINGE 0 ML IV SCH (03:00)
[2019-11-04] MEDS: AZTREONAM 2,000 MG in DEXTROSE 5% 100 ML IV SCH ×3 (03:21→20:54)
[2019-11-04] MEDS ORDERED: ACETAMINOPHEN 325 MG TAB PO PRN (04:07)
[2019-11-04] MEDS ORDERED: dilTIAZem HCL 120 MG CAPCR PO SCH ×2 (04:30→09:00)
[2019-11-04] MEDS ORDERED: MONTELUKAST SODIUM 10 MG TABLET PO SCH ×2 (09:00→21:00)
[2019-11-04] MEDS ORDERED: lamoTRIgine 100 MG TAB PO SCH ×2 (09:00→21:00)
[2019-11-04] MEDS ORDERED: CONSULT PHARMACY SCH (09:00)
[2019-11-04] MEDS ORDERED: ENOXAPARIN INJ 40 MG/0.4 ML SYR SQ SCH (09:00)
[2019-11-04] MEDS: DOCUSATE SODIUM/SENNA 50/8.6MG TAB PO SCH ×2 (09:41→21:02)
[2019-11-04] MEDS: dilTIAZem HCL 120 MG CAPCR PO SCH (09:42)
[2019-11-04] MEDS: FAMOTIDINE 20 MG TAB PO SCH (09:42)
[2019-11-04] MEDS: MULTIVITAMIN TAB PO SCH (09:42)
[2019-11-04] MEDS: MAGNESIUM OXIDE 400 MG TAB PO SCH ×2 (09:42→21:01)
[2019-11-04] MEDS: SOTALOL HCL 80 MG TAB PO SCH ×2 (09:43→20:59)
[2019-11-04] MEDS: VITAMIN B COMPLEX TAB PO SCH (09:43)
[2019-11-04] MEDS: PANTOprazole 40 MG TAB PO SCH (09:43)
[2019-11-04] MEDS: INSULIN GLARGINE SOLOSTAR 100 UNITS/ML 3 ML PEN SC SCH ×2 (09:48→22:32)
[2019-11-04] MEDS ORDERED: Nursing to Pharmacy Communication SCH (11:00)
--- NOTE | 2019-11-04 11:56 | Urology Consultation ---
Date of Consultation November 04, 2019 Assessment & Plan (1) Nephrolithiasis: Assessment Renal colic secondary to a 5 mm right ureterovesical junction stone. I did review her CT scan. Patient has since passed the stone she is now pain-free. This is her first stone. General stone prevention guidelines discussed. No further urologic intervention needed. She should follow-up with us as an outpatient. History of Present Illness Attending Physician: Denilson Apple MD History of Present Illness 69-year-old white female admitted to the ER with abdominal pain. Work-up showed a 5 mm right ureterovesical junction stone. She denies any fevers or shaking chills. She currently has no nausea or vomiting. Temperature is 36.8 Pulse 113 Blood pressure 142/91 Patient is no longer having any pain as she has passed her stone. Allergies Allergy/AdvReac Type Severity Reaction Status Date / Time amoxicillin [From Augmentin] Allergy Severe Unknown Verified 11/03/19 19:13 Cephalosporins Allergy Intermediate RASH Verified 11/03/19 19:13 Sulfa (Sulfonamide Allergy Intermediate "Sulfa Verified 11/03/19 19:13 Antibiotics) Drugs = rash" terconazole Allergy Intermediate ITCHING, Verified 11/03/19 19:13 BURNING clarithromycin Allergy Unknown UNKNOWN Verified 11/03/19 19:13 clavulanic acid Allergy Unknown UNKNOWN Verified 11/03/19 19:13 clobetasol Allergy Unknown Unknown Verified 11/03/19 19:13 Penicillins Allergy Unknown Unknown Verified 11/03/19 19:13 adhesive AdvReac Mild BAND-AIDS Verified 11/03/19 19:13 = SKIN IRRITATION Home Medications Home Medications Medication Instructions Recorded Confirmed Type apixaban 5 mg tablet 5 mg PO BID tab 11/11/18 11/03/19 History atorvastatin 40 mg tablet 40 mg PO PM #90 tab 11/11/18 11/03/19 History cinnamon bark 500 mg capsule 1,000 mg PO BID 11/11/18 11/03/19 History loratadine 10 mg tablet 10 mg PO PM tab 11/11/18 11/03/19 History metformin 1,000 mg tablet 1,000 mg PO BID tab 11/11/18 11/03/19 History CPAP Machine #1 ea 12/10/18 08/10/19 Rx cholecalciferol (vitamin D3) 125 5,000 unit PO QAM cap 12/10/18 11/03/19 History mcg (5,000 unit) capsule diltiazem HCl 120 mg 120 mg PO QAM 12/10/18 11/03/19 History capsule,extended release 24 hr magnesium oxide 400 mg (241.3 mg 400 mg PO BID tab 12/10/18 11/03/19 History magnesium) tablet multivitamin 1 tab PO QAM 12/10/18 11/03/19 History nystatin 100,000 unit/gram topical 1 applic TOPICAL DAILY PRN gm 12/10/18 11/03/19 History powder omega-3 fatty acids 1,000 mg 1,000 mg PO QAM 12/10/18 11/03/19 History capsule lactobacillus combination no.9 4 4,000 mmu cells PO QAM 01/18/19 11/03/19 History billion cell capsule sotalol 80 mg tablet 40 mg PO BID tab 01/18/19 11/03/19 History levalbuterol tartrate 45 2 puffs INH Q6H PRN #3 inhaler 06/21/19 11/03/19 Rx mcg/actuation aerosol inhaler nebulizer accessories #1 ea 06/27/19 08/10/19 Rx eiuaglxnrod-fwfwvidfr-nteqhtku 1 puffs INH PM 08/28/19 11/03/19 History [Trelegy Ellipta] acetaminophen [Tylenol Arthritis 650 mg PO Q12H PRN 11/03/19 11/03/19 History Pain] bisacodyl 5 mg PO HS PRN 11/03/19 11/03/19 History clobetasol 1 applic TOPICAL BID PRN 11/03/19 11/03/19 History conjugated estrogens 0.625 mg VAGINAL DIRECTED 11/03/19 11/03/19 History cranberry extract 1,000 mg PO DAILY 11/03/19 11/03/19 History famotidine 20 mg PO DAILY 11/03/19 11/03/19 History aiopindqp-xow-A-danny-herbal 21 1 tab PO DAILY 11/03/19 11/03/19 History [Glucosamine-MSM Complex] guaifenesin [Mucinex] 600 mg PO Q12H PRN 11/03/19 11/03/19 History insulin asp prt-insulin aspart 45 unit SUBCUT BIDM 11/03/19 11/03/19 History [Novolog Mix 70-30 U-100 Insuln] insulin glargine [Basaglar KwikPen 40 unit SUBCUT BID 11/03/19 11/03/19 History U-100 Insulin] ipratropium bromide 2 spray INTRANASAL BID 11/03/19 11/03/19 History lamotrigine 150 mg PO DAILY 11/03/19 11/03/19 History levalbuterol HCl 0.63 mg INH Q4H PRN 11/03/19 11/03/19 History liraglutide [Victoza 3-Blaine] 1.8 mg SUBCUT DAILY 11/03/19 11/03/19 History lorazepam [Ativan] 1 mg PO DAILY PRN 11/03/19 11/03/19 History methocarbamol 500 mg PO TID PRN 11/03/19 11/03/19 History montelukast [Singulair] 10 mg PO DAILY 11/03/19 11/03/19 History nystatin-triamcinolone 1 applic TOPICAL DIRECTED PRN 11/03/19 11/03/19 History pantoprazole 40 mg PO DAILY 11/03/19 11/03/19 History phenazopyridine [Pyridium] 200 mg PO TID PRN 11/03/19 11/03/19 History vitamin B complex-folic acid 0 mg PO DAILY 11/03/19 11/03/19 History Patient History Social History (System 10/04/19 @ 09:15 by Cristina Vera) Smoking Status: Former smoker Second Hand Exposure: No; Hx Alcohol Use: No Hx Substance Use: No Preferred Language: Macanese Communication Ability: Effective Shampooer Required: No Beliefs That Will Affect Care: None marital status: Current Living Situation: Spouse Other Information That Helps Us Care for You: No Feels Safe at Home: Yes Safety Concerns: Feels Safe At This Time Physical Exam Physical Exam: Constitutional Well-developed well-nourished In no acute distress, Healthy appearing Neuro/psych Alert and oriented x3 Normal mood Normal affect Normal coordination Skin Normal color Normal turgor No rashes Warm and Dry Neck Normal visual inspection Pulmonary Normal rhythm and effort No respiratory distress No audible wheezes Able to speak in complete sentences Cardiac No peripheral edema Results & Data Vital Signs (Past 12 Hours) Vital Signs Temp Pulse Pulse Resp BP Pulse Ox 07/31/20 07:11 36.8 C 113 H 20 142/91 H 93 11/04/19 03:47 36.6 C 104 H 20 131/92 95 11/04/19 00:40 89 18 91 PG Care Time/CCT Total # of Minutes Spent Total Time Spent with Patient: Total time spent is greater than 50% in coordination of care (as documented) at patient's floor/unit and/or counseling patient: Coding Level of Care Code 24384 Initial Inpt Care Lvl 1 Diagnoses Nephrolithiasis N20.0
[2019-11-04] MEDS ORDERED: APIXABAN 5 MG TABLET PO SCH (21:00)
[2019-11-04] MEDS ORDERED: LORATADINE 10 MG TAB PO SCH (21:00)
[2019-11-04] MEDS ORDERED: TAMSULOSIN HCL 0.4 MG CAP PO SCH (21:00)
[2019-11-04] MEDS ORDERED: ATORVASTATIN 40 MG TAB PO SCH (21:00)
[2019-11-04] MEDS ORDERED: FLUTICASONE FUROATE 100MCG 14 PUFFS/INHALER INH SCH (21:00)
[2019-11-04] MEDS ORDERED: UMECLIDINIUM/VILANTEROL 62.5/25MCG 7 PUFFS/INHALER INH SCH (21:00)
--- NOTE | 2019-11-04 21:09 | Hospitalist Progress Note ---
Date of Service November 04, 2019 Assessment & Plan (1) Severe sepsis: SIRS plus lactic acid elevation Secondary to complicated UTI/obstructive uropathy afebrile blood cultures: pending urine culture: pending continue Dapto + Aztreonam monitor closely Ureteral stone patient passed stone today no interventions per Urology hold Eliquis for hematuria, hopefully can resume tomorrow monitor Rapid A. fib secondary to above HR improved continue Sotalol, Xardizem Patient on Eliquis. Hypertension, elevated secondary to discomfort improved Hyperlipidemia on statin Rx History CVA as per records COPD, not in acute exacerbation DM2 insulin requiring, reasonable control as of recent hemoglobin A1c of 7.09 October 2019 mood disorder, stable past tobacco abuse DVT prophylaxis. SCDs while Eliquis on hold Full code Admission and Anticipated Discharge Date Admission Date: November 03, 2019 Subjective ff up for severe sepsis, ureteral stone, a fib, etc. passed stone earlier today stone seen in patient's strainer sitting up in bed, comfortable states she feels better overall abdominal pain resolved no nausea/vomiting, fever/chills reports hematuria - dark red- multiple times this afternoon denies chest pain,dyspnea, palpitations no other symptoms Review of Systems Review of Systems: All systems reviewed & are unremarkable except as noted in HPI & below Physical Exam Physical Exam: General- oriented x 3, not in distress, speaks in sentences with no effort or accessory muscle use Head- atraumatic Eyes- PERRL, EOMI, anicteric ENT- oropharynx clear Neck- supple, no JVD, no adenopathy, no thyromegaly; carotids +2/2, no bruits appreciated Lungs- clear to auscultation bilaterally, no rales/wheezes Heart- normal rate, irregularly irregular rhythm; no murmur, no gallop, no rub appreciated Abdomen- normal bowel sounds, nondistended, soft, nontender, no masses or hepatosplenomegaly Extremities- no pretibial edema, no calf tenderness; peripheral pulses intact Neuro- alert, oriented x 3; CN 2-12 grossly intact; motor 5/5 bilaterally;sensation 100% on all extremities; no other gross focal neurologic deficits Skin- warm & dry Results & Data Results & Data ([facility]) Vital Signs (Past 12 Hours) Vital Signs Temp Pulse Resp BP Pulse Ox 11/04/19 20:32 36.6 C 95 H 20 106/71 93 07/31/20 15:35 36.4 C L 95 H 21 93/63 L 92 11/04/19 11:15 37.1 C 95 H 18 104/67 91 Laboratory Results Laboratory Results - last 24 hr 11/03/19 11/03/19 11/03/19 18:02 18:02 20:34 WBC RBC Hgb Hct MCV MCH MCHC RDW Std Deviation RDW Coeff of Juan Diego Plt Count MPV Immature Gran % (Auto) Neut % (Auto) Lymph % (Auto) [place] % (Auto) Eos % (Auto) Baso % (Auto) Neut # (Auto) Lymph # (Auto) [place] # (Auto) Eos # (Auto) Baso # (Auto) Immature Gran # (Auto) APTT 32.5 H PTT Ratio 1.2 Sodium 137 Potassium 4.1 Chloride 106 Carbon Dioxide 23 Anion Gap 8.0 BUN 19 H Creatinine 0.86 Est Cr Clr Drug Dosing YARDER PUNCHER Est GFR ( Amer) 81.0 Est GFR (Non-Af Amer) 69.9 BUN/Creatinine Ratio 22.6 H Glucose 175 H POC Glucose Lactate 2.3 H* Calcium 9.5 Magnesium 1.7 L Total Bilirubin 1.0 AST 22 ALT 39 Alkaline Phosphatase 96 NT-Pro-B Natriuret Pep 319 Total Protein 7.9 Albumin 3.9 Globulin 4.0 Albumin/Globulin Ratio 1.0 Lipase 113 TSH 1.130 11/03/19 11/04/19 11/04/19 22:31 01:57 01:57 WBC 17.04 H RBC 4.69 Hgb 14.1 Hct 43.2 MCV 92.1 MCH 30.1 MCHC 32.6 RDW Std Deviation 49.4 H RDW Coeff of [place] 14.6 H Plt Count 220 MPV 10.1 Immature Gran % (Auto) 0.2 Neut % (Auto) 81.6 Lymph % (Auto) 11.3 [place] % (Auto) 6.5 Eos % (Auto) 0.2 Baso % (Auto) 0.2 Neut # (Auto) 13.90 H Lymph # (Auto) 1.93 [place] # (Auto) 1.10 H Eos # (Auto) 0.04 Baso # (Auto) 0.03 Immature Gran # (Auto) 0.04 H APTT PTT Ratio Sodium 139 Potassium 4.2 Chloride 106 Carbon Dioxide 28 Anion Gap 5.0 BUN 19 H Creatinine 1.03 Est Cr Clr Drug Dosing 71.9 Est GFR ( Amer) 65.1 Est GFR (Non-Af Amer) 56.2 BUN/Creatinine Ratio 18.7 Glucose 185 H POC Glucose 154 H Lactate Calcium 8.9 Magnesium 2.1 Total Bilirubin AST ALT Alkaline Phosphatase NT-Pro-B Natriuret Pep Total Protein Albumin Globulin Albumin/Globulin Ratio Lipase TSH 11/04/19 11/04/19 11/04/19 01:57 06:05 07:27 WBC RBC Hgb Hct MCV MCH MCHC RDW Std Deviation RDW Coeff of [place] Plt Count MPV Immature Gran % (Auto) Neut % (Auto) Lymph % (Auto) [place] % (Auto) Eos % (Auto) Baso % (Auto) Neut # (Auto) Lymph # (Auto) [place] # (Auto) Eos # (Auto) Baso # (Auto) Immature Gran # (Auto) APTT PTT Ratio Sodium Potassium Chloride Carbon Dioxide Anion Gap BUN Creatinine Est Cr Clr Drug Dosing Est GFR ( Amer) Est GFR (Non-Af Amer) BUN/Creatinine Ratio Glucose POC Glucose 184 H Lactate 2.2 H* 2.3 H* Calcium Magnesium Total Bilirubin AST ALT Alkaline Phosphatase NT-Pro-B Natriuret Pep Total Protein Albumin Globulin Albumin/Globulin Ratio Lipase TSH 11/04/19 11/04/19 11/04/19 11:19 16:32 20:05 WBC RBC Hgb Hct MCV MCH MCHC RDW Std Deviation RDW Coeff of [place] Plt Count MPV Immature Gran % (Auto) Neut % (Auto) Lymph % (Auto) [place] % (Auto) Eos % (Auto) Baso % (Auto) Neut # (Auto) Lymph # (Auto) [place] # (Auto) Eos # (Auto) Baso # (Auto) Immature Gran # (Auto) APTT PTT Ratio Sodium Potassium Chloride Carbon Dioxide Anion Gap BUN Creatinine Est Cr Clr Drug Dosing Est GFR ( Amer) Est GFR (Non-Af Amer) BUN/Creatinine Ratio Glucose POC Glucose 187 H 211 H 238 H Lactate Calcium Magnesium Total Bilirubin AST ALT Alkaline Phosphatase NT-Pro-B Natriuret Pep Total Protein Albumin Globulin Albumin/Globulin Ratio Lipase TSH
[2019-11-04] MEDS ORDERED: GLUCAGON FOR INJ 1 MG VIAL SQ PRN (21:13)
[2019-11-04] MEDS ORDERED: GLUCOSE 10 TABS/TUBE PO PRN (21:13)
[2019-11-04] MEDS ORDERED: CARBOHYDRATES FOR HYPOGLYCEMIA PO PRN (21:13)
[2019-11-04] MEDS ORDERED: DEXTROSE 50% 50 ML SYRINGE IV PRN (21:13)
[2019-11-04] MEDS ORDERED: GLUCOSE 40% GEL 15 GM TUBE PO PRN (21:13)
[2019-11-04] MEDS: INSULIN ASPART 100 UNITS/ML 3 ML PEN SC SCH (22:34)
[2019-11-05] MEDS ORDERED: DAPTOmycin 525 MG in SYRINGE 0 ML IV SCH (03:00)
[2019-11-05] MEDS: AZTREONAM 2,000 MG in DEXTROSE 5% 100 ML IV SCH ×2 (03:20→13:25)
--- NOTE | 2019-11-05 06:47 | Electrocardiogram Report ---
Test Reason : Blood Pressure : / mmHG Vent. Rate : 118 BPM Atrial Rate : 133 BPM P-R Int : 000 ms QRS Dur : 136 ms QT Int : 316 ms P-R-T Axes : 000 013 -31 degrees QTc Int : 442 ms Atrial fibrillation with rapid ventricular response Right bundle branch block Abnormal ECG When compared with ECG of 28-AUG-2019 16:37, No significant change was found Confirmed by Davis Murillo ([id number]) on 11/05/2019 6:46:50 AM Referred By: REFERRED SELF Confirmed By:Davis Murillo
[2019-11-05] MEDS ORDERED: PHARMACY GLYCEMIC MGMT CONSULT PRN (08:33)
[2019-11-05 08:53] LABS: Basophils # (auto) 0.04 K/uL (0-0.2); Basophils % (auto) 0.4 %; Eosinophils # (auto) 0.19 K/uL (0-0.5); Hematocrit (blood only) 37.6 % (37-47); Hemoglobin 12.4 g/dL (12.0-16.0); Immature Granulocytes # (auto) 0.02 K/uL (0.00-0.02); Immature Granulocytes % (auto) 0.2 %; Lymphocytes % (auto) 31.4 %; Mean Corpuscular Hemoglobin 29.7 pg (25-34); Mean Platelet Volume 10.5 fL (7.4-10.4); Monocytes # (auto) 0.79 K/uL (0.11-0.59); Monocytes % (auto) 8.3 %; Neutrophils # (auto) 5.52 K/uL (1.4-6.5); Neutrophils % (auto) 57.7 %; Platelet Count 193 K/uL (130-400); RDW Coefficient of Variation 14.7 % (11.5-14.5); Red Blood Count 4.18 M/uL (4.2-5.4); White Blood Count 9.56 K/uL (4.8-10.8)
[2019-11-05] MEDS ORDERED: INSULIN GLARGINE SOLOSTAR 100 UNITS/ML 3 ML PEN SC ONE (09:00)
[2019-11-05] MEDS: INSULIN ASPART 100 UNITS/ML 3 ML PEN SC SCH ×2 (09:08→13:19)
[2019-11-05] MEDS: dilTIAZem HCL 120 MG CAPCR PO SCH (09:09)
[2019-11-05] MEDS: VITAMIN B COMPLEX TAB PO SCH (09:09)
[2019-11-05] MEDS: FAMOTIDINE 20 MG TAB PO SCH (09:09)
[2019-11-05] MEDS: MAGNESIUM OXIDE 400 MG TAB PO SCH (09:10)
[2019-11-05] MEDS: SOTALOL HCL 80 MG TAB PO SCH (09:10)
[2019-11-05] MEDS: MULTIVITAMIN TAB PO SCH (09:16)
[2019-11-05] MEDS: PANTOprazole 40 MG TAB PO SCH (09:16)
[2019-11-05] MEDS: DOCUSATE SODIUM/SENNA 50/8.6MG TAB PO SCH (09:30)
[2019-11-05 09:47] LABS: Calcium 8.5 mg/dl (8.5-10.1); Creatinine Clr Calc Pharmacy 71.8 ml/min; Est GFR (African American) 64.4; Est GFR (Non-African American) 55.6; Potassium 3.8 mmol/L (3.5-5.1)
[2019-11-05 10:08] LABS: Beta-Hydroxybutyrate 1.03 mg/dl (0.2-2.81)
--- NOTE | 2019-11-05 10:08 | Pharmacy Report ---
Pharmacy Glycemic Short Note 2 - Date of Service November 05, 2019 - Glycemic Short BSG Results (Last 24 hours): 11/04/19 11/04/19 11/04/19 11:19 16:32 20:05 Glucose POC Glucose 187 H 211 H 238 H 11/05/19 11/05/19 07:20 08:39 Glucose 307 H* POC Glucose 248 H OUTPATIENT ANTIDIABETIC REGIMEN: * metformin 1000 mg PO BID * victoza 1.8 mg SQ daily * basaglar 40 units SQ BID * novolin 70/30 45 units BID (reported on med rec as novolog mix, refill records indicate novolin 70/30) * A1c = 7.5% (October 2019) ASSESSMENT: * Tiffanie is a 69 yo female admitted with complicated UTI, nephrolithiasis * Pharmacy consulted due to hyperglycemia. Patient takes large amounts amounts of insulin at home (~170 units/day). * Will increase both basal and bolus insulin and continue to titrate based on BSG. PLAN FOR INPATIENT GLYCEMIC CONTROL: * Hold outpatient oral diabetes medications * Basal insulin * Lantus 45 units SQ x 1 this morning, then 35-45 units BID per scale: * 35 units for BSG < 150 * 40 units for BSG 150 - 200 * 45 units for BSG > 200 * Bolus insulin * NovoLog per scale ACHS or Q6hrs while NPO * Goal Range: Low 120 mg/dL - High 150 mg/dL * Correction Factor: 10 mg/dL/unit * Nutritional / Prandial insulin per carb ratio of 1 unit per 3 grams CHO consumed PLAN FOR DISCHARGE: * tbd
[2019-11-05] MEDS ORDERED: APIXABAN 5 MG TABLET PO SCH (14:05)
--- NOTE | 2019-11-05 14:11 | Hospitalist Progress Note ---
Date of Service November 05, 2019 Assessment & Plan (1) Severe sepsis: Severe Sepsis with SIRS plus lactic acid elevation Secondary to complicated UTI/obstructive uropathy blood cultures: negative so far urine culture: negative so far given Dapto + Aztreonam x 2 days afebrile since admisison leukocytosis resolved ff up final culture reports will discharge on Macrobid 100mg BID x 7 days Ureteral stone patient passed stone on hospital day 2 no interventions per Urologist Dr. Amato hematuria resolved, resume Eliquis ff up with Urologist Nael Renner. fib secondary to above HR improved continue Sotalol, Xardizem Patient on Eliquis. Hypertension continue usual regimen Hyperlipidemia on statin Rx History CVA as per records COPD not in acute exacerbation DM2 continue usual Insulin regimen ff up as outpatient Disposition d/c home ff up with PCP in 1 week as per d/c instructions ff up with [facility] [place] Urologist Admission and Anticipated Discharge Date Admission Date: November 03, 2019 Subjective ff up for sepsis, possible UTI, ureteral stone seen resting in bedside chair comfortable, in good spirits states she feels much better overall denies abdominal/flank/back pain no problems with urination no hematuria no fever/chills denies chest pain, dizziness, dyspnea, palpitations no other symptoms states she is ready and would like to be discharged today Review of Systems Review of Systems: All systems reviewed & are unremarkable except as noted in HPI & below Physical Exam Physical Exam: General- oriented x 3, not in distress, speaks in sentences with no effort or accessory muscle use Eyes- anicteric Neck- no JVD Lungs- clear breath sounds bilaterally, no rales/wheezes Heart- normal rate, regular rhythm; no murmurs Abdomen- normal bowel sounds, nondistended, soft, nontender NO cva tenderness Extremities- trace pretibial edema, no calf tenderness Neuro- alert, oriented x 3; no gross focal neurologic deficits Skin- warm & dry Results & Data Results & Data ([facility]) Vital Signs (Past 12 Hours) Vital Signs Temp Pulse Pulse Resp BP Pulse Ox 11/05/19 11:34 36.5 C 103 H 18 113/62 96 11/05/19 07:02 36.9 C 106 H 18 110/65 93 11/05/19 03:52 16 95 11/05/19 03:29 36.8 C 100 H 19 125/84 92 Laboratory Results Laboratory Results - last 24 hr 11/04/19 11/04/19 11/04/19 16:32 20:05 Unknown WBC RBC Hgb Hct MCV MCH MCHC RDW Std Deviation RDW Coeff of Juan Diego Plt Count MPV Immature Gran % (Auto) Neut % (Auto) Lymph % (Auto) [place] % (Auto) Eos % (Auto) Baso % (Auto) Neut # (Auto) Lymph # (Auto) [place] # (Auto) Eos # (Auto) Baso # (Auto) Immature Gran # (Auto) Sodium Potassium Chloride Carbon Dioxide Anion Gap BUN Creatinine Est Cr Clr Drug Dosing Est GFR ( Amer) Est GFR (Non-Af Amer) BUN/Creatinine Ratio Glucose POC Glucose 211 H 238 H Calcium Beta-Hydroxybutyric Acd Stone Source Pending Stone Weight Pending Stone Composition Pending Stone Composition 2 Pending 11/05/19 11/05/19 11/05/19 07:20 08:39 08:39 WBC 9.56 RBC 4.18 L Hgb 12.4 Hct 37.6 MCV 90.0 MCH 29.7 MCHC 33.0 RDW Std Deviation 48.0 H RDW Coeff of Juan Diego 14.7 H Plt Count 193 MPV 10.5 H Immature Gran % (Auto) 0.2 Neut % (Auto) 57.7 Lymph % (Auto) 31.4 [place] % (Auto) 8.3 Eos % (Auto) 2.0 Baso % (Auto) 0.4 Neut # (Auto) 5.52 Lymph # (Auto) 3.00 [place] # (Auto) 0.79 H Eos # (Auto) 0.19 Baso # (Auto) 0.04 Immature Gran # (Auto) 0.02 Sodium 137 Potassium 3.8 Chloride 106 Carbon Dioxide 23 Anion Gap 8.0 BUN 25 H Creatinine 1.04 Est Cr Clr Drug Dosing 71.8 Est GFR ( Amer) 64.4 Est GFR (Non-Af Amer) 55.6 BUN/Creatinine Ratio 24.0 H Glucose 307 H* POC Glucose 248 H Calcium 8.5 Beta-Hydroxybutyric Acd 1.03 Stone Source Stone Weight Stone Composition Stone Composition 2 11/05/19 11:15 WBC RBC Hgb Hct MCV MCH MCHC RDW Std Deviation RDW Coeff of Juan Diego Plt Count MPV Immature Gran % (Auto) Neut % (Auto) Lymph % (Auto) [place] % (Auto) Eos % (Auto) Baso % (Auto) Neut # (Auto) Lymph # (Auto) [place] # (Auto) Eos # (Auto) Baso # (Auto) Immature Gran # (Auto) Sodium Potassium Chloride Carbon Dioxide Anion Gap BUN Creatinine Est Cr Clr Drug Dosing Est GFR ( Amer) Est GFR (Non-Af Amer) BUN/Creatinine Ratio Glucose POC Glucose 270 H Calcium Beta-Hydroxybutyric Acd Stone Source Stone Weight Stone Composition Stone Composition 2
--- NOTE | 2019-11-05 14:28 | Discharge Summary ---
Date of Service November 05, 2019 Admission HPI Per Admitting Provider History obtained from patient and records. Medical history significant for A. fib/a flutter on Eliquis, hypertension, hyperlipidemia, history CVA as per records, COPD, REENA on CPAP, DM2 insulin requiring, mood disorder, past tobacco abuse. Last confinement June 2018 for A. fib with RVR. Yesterday patient noted right sided abdominal/flank cramping with constipation symptoms followed by urinary urgency and hesitancy later followed by hematuria. No fever, no chills. No chest pain, no S OB, no cough. Patient directed by PCP to ER. Medical History as above Surgical History : Breast lesion biopsy, tonsillectomy, septoplasty, LUCERO/BSO Family History : Breast cancer, skin cancer, COPD, diabetes Personal/Social history : Past tobacco abuse, no EtOH intake, retired [employer] employee Admission Exam Per Admitting Provider GENERAL: Slightly uncomfortable, morbidly obese, no respiratory distress SKIN: Normal color, warm HEENT: [place] palpebral conjunctivae, no ptosis, dry buccal mucosa NECK : Supple, short neck, no tenderness CHEST : Decreased breath sounds, no tenderness HEART : Irregular, tachycardic , no obvious murmurs ABDOMEN: distention, right-sided abdominal tenderness EXTREMITIES : Bilateral LE swelling, no LE tenderness, no other conspicuous deformities noted NEUROLOGIC : Coherent, no facial asymmetry, no other gross focality Principal Diagnosis RIGHT URETERAL STONE, s/p SPONTANEOUS PASSAGE POSSIBLE URINARY TRACT INFECTION Discharge Exam General- oriented x 3, not in distress, speaks in sentences with no effort or accessory muscle use Eyes- anicteric Neck- no JVD Lungs- clear breath sounds bilaterally, no rales/wheezes Heart- normal rate, regular rhythm; no murmurs Abdomen- normal bowel sounds, nondistended, soft, nontender NO cva tenderness Extremities- trace pretibial edema, no calf tenderness Neuro- alert, oriented x 3; no gross focal neurologic deficits Skin- warm & dry Discharge Data Allergies Allergy/AdvReac Type Severity Reaction Status Date / Time amoxicillin [From Augmentin] Allergy Severe Unknown Verified 11/03/19 19:13 Cephalosporins Allergy Intermediate RASH Verified 11/03/19 19:13 Sulfa (Sulfonamide Allergy Intermediate "Sulfa Verified 11/03/19 19:13 Antibiotics) Drugs = rash" terconazole Allergy Intermediate ITCHING, Verified 11/03/19 19:13 BURNING clarithromycin Allergy Unknown UNKNOWN Verified 11/03/19 19:13 clavulanic acid Allergy Unknown UNKNOWN Verified 11/03/19 19:13 clobetasol Allergy Unknown Unknown Verified 11/03/19 19:13 Penicillins Allergy Unknown Unknown Verified 11/03/19 19:13 adhesive AdvReac Mild BAND-AIDS Verified 11/03/19 19:13 = SKIN IRRITATION Consultations 11/03/19 20:00 ED Decision to Admit Stat 11/03/19 22:52 Consult Urology Routine Ordered Studies 11/03/19 17:56 CT abd pelvis IV con only Stat COMPARISON STUDY: 05/17/2014 FINDINGS: Minimal dependent basilar atelectasis. Mild fatty replacement of the liver. Gallbladder is negative for distention. Left kidney shows mild cortical scarring. There is no evidence for left renal nephrocalcinosis or hydronephrosis. There is moderate right renal hydronephrosis with a small amount of perinephric fluid. The right ureter is distended and extends to a 5 mm obstructing calculus distal right ureter at and slightly proximal to the right ureteral vesicle junction. The bladder is midline. Chronic sigmoid diverticulosis. No evidence for acute diverticulitis. Nonobstructive bowel pattern. IMPRESSION: 1. 5 mm obstructing calculus distal right ureter. 2. Moderate right renal hydroureteronephrosis. 3. Small amount of right perirenal/perinephric fluid. 4. Mild fatty replacement of the liver. Hospital Course (1) Severe sepsis: Severe Sepsis with SIRS plus lactic acid elevation Secondary to complicated UTI/obstructive uropathy admitted with leukocytosis of 17,000 but afebrile blood cultures: preliminary, negative x 48 hours urine culture: negative given Dapto + Aztreonam x 2 days afebrile since admission leukocytosis resolved ff up final culture reports discharged on Macrobid 100mg BID x 7 days Follow-up with PCP in 1 week Ureteral stone patient passed stone spontaneously on hospital day 2 Kidney stone analysis pending no interventions per Urologist Dr. Amato hematuria resolved, resume Eliquis ff up with Urologist Fatty liver Seen on CT abdomen pelvis Further management and follow-up as an outpatient Atrial fibrillation in RVR secondary to above HR improved continue Sotalol, Xardizem Patient on Eliquis. Hypertension continue usual regimen Hyperlipidemia on statin Rx History CVA as per records COPD not in acute exacerbation DM2 continue usual Insulin regimen ff up as outpatient Disposition d/c home ff up with PCP in 1 week as per d/c instructions ff up with [facility] Urologist Total Time Total Time Spent Total Time Spent (In Minutes): 50 minutes Discharge Plan Discharge Items Patient Disposition: Home - Self-Care Reason For Visit: RAPID AF Discharge Diagnosis: SEVERE SEPSIS, POSSIBLE URINARY TRACT INFECTION URETERAL STONE Activity: Resume your previous activity Activity Comment: GRADUALLY TOLERATED Sexual Activity: Wait until after follow-up appointment Exercise/Sports: Wait until after follow-up appointment Driving/Machine Use: NO DRIVING UNTIL RE-EVALUATED AND ALLOWED BY PRIMARY CARE PHYSICIAN Non-emergency contact: Primary Care Provider Call non-emergency contact if: you have any medication questions, your symptoms worsen, your pain is not controlled, your pain is worsening, your pain is unusual for you, your pain is concerning for you and you have a fever Diet: Carb Consistent or DM2 and Heart Healthy Addtl Attending Provider Instructions: YOUR NEW MEDICATION IS: MACROBID (NITROFURANTOIN)- antibiotic for urinary tract infection PLEASE DRINK PLENTY OF WATER. CALL PRIMARY CARE PHYSICIAN OR RETURN TO THE ER IMMEDIATELY IF WITH WORSENING OF SYMPTOMS, RECURRENCE OF ABDOMINAL/BACK/FLANK PAIN, PROBLEMS WITH URINATION INCLUDING BLOOD IN THE URINE, FEVER/CHILLS, NAUSEA/VOMITING, INCREASING LEG SWELLING. Pending Studies at Discharge: Yes Studies:: FINAL REPORTS OF URINE AND BLOOD CULTURES Stand-Alone Forms: My [facility], Smoking Cessation Medications and DC Order Prescriptions: New nitrofurantoin monohyd/m-cryst [Macrobid] 100 mg capsule 100 mg PO Q12H 7 Days Qty: 14 RF: 0 Continued levalbuterol tartrate [Xopenex HFA] 45 mcg/actuation HFA aerosol inhaler 2 puffs INH Q6H PRN (Reason: shortness of breath or wheezing) Qty: 3 RF: 1 (DME) nebulizer accessories Kit See Rx Instructions .ROUTE .MEDSUPPLY Qty: 1 RF: 0 cinnamon bark [Cinnamon] 500 mg capsule 1,000 mg PO BID RF: 0 Eliquis 5 mg tablet 5 mg PO BID RF: 0 loratadine 10 mg tablet 10 mg PO PM RF: 0 atorvastatin 40 mg tablet 40 mg PO PM Qty: 90 RF: 0 metformin 1,000 mg tablet 1,000 mg PO BID RF: 0 diltiazem HCl [Cardizem CD] 120 mg capsule,extended release 24hr 120 mg PO QAM RF: 0 omega-3 fatty acids 1,000 mg capsule 1,000 mg PO QAM RF: 0 magnesium oxide 400 mg (241.3 mg magnesium) tablet 400 mg PO BID RF: 0 multivitamin [Daily Multi-Vitamin] tablet 1 tab PO QAM RF: 0 nystatin 100,000 unit/gram powder 1 applic topical DAILY PRN (Reason: irritation) RF: 0 cholecalciferol (vitamin D3) 5,000 unit capsule 5,000 unit PO QAM RF: 0 (DME) CPAP Machine Misc See Dose Instructions .ROUTE .MEDSUPPLY Qty: 1 RF: 0 Adult 50 Plus Probiotic 4 billion cell capsule 4,000 mmu cells PO QAM RF: 0 sotalol 80 mg tablet 40 mg PO BID RF: 0 methocarbamol 500 mg Tablet 500 mg PO TID PRN (Reason: MUSCLE SPASMS) RF: 0 lamotrigine 150 mg tablet 150 mg PO DAILY RF: 0 phenazopyridine [Pyridium] 200 mg Tablet 200 mg PO TID PRN (Reason: BLADDER PAIN) RF: 0 Glucosamine-MSM Complex Tablet 1 tab PO DAILY RF: 0 acetaminophen [Tylenol Arthritis Pain] 650 mg Tablet Extended Release 650 mg PO Q12H PRN (Reason: Pain) RF: 0 nystatin-triamcinolone 100,000-0.1 unit/gram-% Ointment 1 applic TOPICAL DIRECTED PRN (Reason: Skin Irritation) RF: 0 famotidine 20 mg Tablet 20 mg PO DAILY RF: 0 pantoprazole 40 mg Tablet,Delayed Release (Dr/Ec) 40 mg PO DAILY RF: 0 conjugated estrogens 0.625 mg/gram Cream 0.625 mg VAGINAL DIRECTED RF: 0 montelukast [Singulair] 10 mg Tablet 10 mg PO DAILY RF: 0 clobetasol 0.05 % Ointment 1 applic TOPICAL BID PRN (Reason: NEEDED) RF: 0 lorazepam [Ativan] 1 mg Tablet 1 mg PO DAILY PRN (Reason: Anxiety) RF: 0 ipratropium bromide 0.03 % [place],Non-Aerosol 2 spray INTRANASAL BID RF: 0 bisacodyl 5 mg Tablet 5 mg PO HS PRN (Reason: Constipation) RF: 0 insulin asp prt-insulin aspart [Novolog Mix 70-30 U-100 Insuln] 100 unit/mL (70-30) Solution 45 unit SUBCUT BIDM RF: 0 Basaglar KwikPen U-100 Insulin 100 unit/mL (3 mL) Insulin Pen 40 unit SUBCUT BID RF: 0 vitamin B complex-folic acid 400 mcg Tablet Extended Release 0 mg PO DAILY RF: 0 Victoza 3-Blaine 0.6 mg/0.1 mL (18 mg/3 mL) Pen Injector 1.8 mg SUBCUT DAILY RF: 0 guaifenesin [Mucinex] 600 mg Tablet Extended Release 12hr 600 mg PO Q12H PRN (Reason: Congestion) RF: 0 cranberry extract 500 mg Tablet 1,000 mg PO DAILY RF: 0 levalbuterol HCl 0.63 mg/3 mL solution for nebulization 0.63 mg INH Q4H PRN (Reason: shortness of breath or wheezing) RF: 0 Trelegy Ellipta 100-62.5-25 mcg blister with device 1 puffs INH PM RF: 0 Discharge Orders: Discharge Order (Routine); Ordered 11/05/19 Ordered By: Denilson Apple Admission Data Admit Date/Time: 11/03/19 21:35 Attending Provider: Denilson Apple Admit Provider: Richard Gallardo Primary Care Provider: Sabine Mosley Other Providers: Richard Gallardo ; Davis Dubose ; Stone Amato ; Alfie Boyle I. ; Ashish Darling ; Do Park ; Ayanna Schaeffer ; Hernan Garcia ; Cherri Ansari Melissa A. ; Aries Norton ; Darline Palma Other Interventions: Discharge Summary Assessment (RN) Last Done: 11/05/19 14:57 DC Date/Time DO NOT enter until pt leaves facility: 11/05/19 16:10
[2019-11-05] MEDS ORDERED: INSULIN GLARGINE SOLOSTAR 100 UNITS/ML 3 ML PEN SC SCH (21:00)
[2019-11-09 14:03] LABS: Component 2 DNR; Source KIDNEY
== END 2019-11-05 16:10 | disposition home or self-care (01) | DRG 872 ==
LOC: ED 17:30 → 2S 21:35

== ENCOUNTER 2023-01-23 16:28 | Inpatient (IN) ==
--- NOTE | 2023-01-23 17:01 | Emergency Department Note ---
Impression & Plan Hydronephrosis with renal and ureteral calculous obstruction, Fever, Hypomagnesemia, Acute urinary retention ED Provider Note NAME: ASHER JACKSON AGE: 72 SEX: F : 1950 ARRIVES VIA: Ambulance INFORMANT: Patient, EMS ED PROVIDER(S): Tor Dinh DO CHIEF COMPLAINT: Difficulty breathing HPI: The patient is a 72-year-old female who presented to the emergency department by ambulance for generalized weakness and difficulty breathing. She has been noticing dysuria and frequency. She was started on an antibiotic for urinary tract infection. She has had trouble breathing now. She has had difficulty ambulating and standing because of her shortness of breath. She denies having any chest pain. She has lower extremity swelling which is not new. ROS: See above HPI for pertinent positives & negatives. A total of 10 systems reviewed and were otherwise negative. PAST MEDICAL HISTORY: See Below PAST SURGICAL HISTORY: See Below FAMILY HISTORY: See Below SOCIAL HISTORY: See Below HOME MEDICATIONS: See Below ALLERGIES: See Below VITALS: See Below PHYSICAL EXAMINATION: GENERAL: The patient is awake and alert. The patient is very anxious.. EYES: The conjunctivae are clear. The pupils are round and reactive. EARS, NOSE, MOUTH AND THROAT: The nose is without any evidence of any deformity. Mucous membranes are dry. NECK: The neck is nontender and supple. RESPIRATORY: Diminished breath sounds are noted throughout. There is tachypnea and conversational dyspnea. CARDIOVASCULAR: Irregular heart sounds were noted to auscultation. There is no definite murmur. GASTROINTESTINAL: The abdomen was soft and mildly distended. There is diffuse tenderness palpation but no guarding or rigidity. MUSCULOSKELETAL/EXTREMITIES: There is no evidence of gross deformity full range of motion is noted in the hips and shoulders. SKIN: Pedal edema was noted bilaterally. Chronic venous stasis changes were n oted left greater than right. NEUROLOGIC: Patient is awake alert and oriented x3 MEDICAL DECISION MAKING: The patient is a 72-year-old female who presented to the emergency department for an evaluation of weakness. The patient reported a fever. The patient did not have any significant back pain. Given the patient's urinary symptoms and abdominal distention Miller catheter was placed. The patient did have a significant urinary tension. Urinalysis was not overwhelmingly consistent with infection but the patient was treated with an IV antibiotic because of her elevated white blood cell count. I discussed the patient's laboratory and radiographic studies with her. She was found to have an obstructing right-sided ureteral calculus. I discussed her condition with the on-call urologist as well [facility] have agreed to evaluate the patient in the emergency department for further management and disposition. Triage Nursing notes reviewed. Prior medical records reviewed Vital Signs: reviewed and remarkable for tachycardia and fever. Differential diagnosis: Infection, dehydration, metabolic abnormality, hypo/hyperglycemia, electrolyte disturbance, anemia, hypoxia, cardiac sources, intracerebral event, toxicologic, neurologic, as well as other pathologies. ER treatment provided: See below Diagnostics interpreted by me: ECG: EKG was obtained in the emergency department. My interpretation is atrial fibrillation at 102 bpm. There is no PVCs noted. Right [place] block pattern was noted. This was compared to a tracing from May 09, 2022. No changes were noted. Cardiac Monitoring: An order was placed for continuous cardiac monitoring. The monitor shows a rate of 115 bpm with atrial fibrillation. Laboratory studies: As stated above and show below. Imaging studies: See below. Radiographic imaging was reviewed by myself Consultation(s): I discussed this case with Dr Ventura I discussed this case with Dr. Davila who was [facility]. Past Med/Surg History Medical History (Updated 01/23/23 @ 23:12 by Tor Dinh DO) Anxiety Arthritis Bipolar disorder Chronic diastolic heart failure Chronic sinusitis COPD (chronic obstructive pulmonary disease) follows with [facility] Pulmonary (Dr Kat) Depression Diabetes mellitus, type II IDDM GERD (gastroesophageal reflux disease) H/O: CVA (cerebrovascular accident) 2004 -- no deficits. History of bleeding ulcers History of cardioversion History of pneumococcal septicemia treated at [facility] 2012. HLD (hyperlipidemia) Hypertension Kidney stones Morbid obesity Nephrolithiasis REENA (obstructive sleep apnea) cpap at night Paroxysmal atrial fibrillation follows with Dr. 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 no problems since then. Wound dehiscence 2015 s/p hysterectomy Surgical History H/O: hysterectomy LUCERO with BSO History of bronchoscopy History of cataract surgery bilateral History of colonoscopy History of esophagogastroduodenoscopy (EGD) History of open reduction and internal fixation (ORIF) procedure Left elbow with hardware History of tonsillectomy Hx of nasal septoplasty S/P laparotomy to repair hysterectomy wound dehiscence. S/P tendon repair bicep tendon repair (left) Family History Other Diabetes No family history of adverse response to anesthesia Social History Smoking Status: Former smoker Tobacco Type: Cigarettes Cigarettes Per Day: 40; Second Hand Exposure: No; Do You Dip or Chew Tobacco: No; Hx Alcohol Use: No Hx Substance Use: No Preferred Language: Haitian Communication Ability: Effective Ointment Mill Tender Required: No Beliefs That Will Affect Care: None marital status: Current Living Situation: Spouse Feels Safe at Home: Yes Assistive Devices: Cane, CPAP and Walker Allergies Allergies Allergy/AdvReac Type Severity Reaction Status Date / Time Cephalosporins Allergy Intermediate RASH Verified 01/23/23 21:42 Sulfa (Sulfonamide Allergy Intermediate "Sulfa Verified 01/23/23 21:42 Antibiotics) Drugs = rash" terconazole Allergy Intermediate ITCHING, Verified 01/23/23 21:42 BURNING clarithromycin Allergy Unknown UNKNOWN Verified 01/23/23 21:42 clavulanic acid Allergy Unknown UNKNOWN Verified 01/23/23 21:42 clobetasol Allergy Unknown Unknown Verified 01/23/23 21:42 adhesive AdvReac Mild BAND-AIDS Verified 01/23/23 21:42 = SKIN IRRITATION Home Meds Home Medications Medication Instructions Recorded Confirmed albuterol sulfate 90 mcg/actuation 2 inh inhalation Q4H PRN Shortness 01/23/23 01/23/23 aerosol inhaler Of Breath Or Wheezing apixaban 5 mg tablet (Eliquis) 5 mg PO BID 01/23/23 01/23/23 atorvastatin 40 mg tablet 40 mg PO DAILY 01/23/23 01/23/23 baclofen 10 mg tablet 10 mg PO BID PRN Muscle Pain 01/23/23 01/23/23 diltiazem HCl 180 mg 180 mg PO DAILY 01/23/23 01/23/23 capsule,extended release 24 hr famotidine 20 mg tablet 20 mg PO DAILY 01/23/23 01/23/23 fluconazole 150 mg tablet 150 mg PO ONCE 01/23/23 01/23/23 hydrocodone 5 mg-acetaminophen 325 1 tab PO Q6 PRN Pain 01/23/23 01/23/23 mg tablet hydrocortisone acetate 25 mg 25 mg NE BID PRN Hemorrhoids 01/23/23 01/23/23 rectal suppository insulin aspart U-100 100 unit/mL 20 - 25 unit subcut BIDM 01/23/23 01/23/23 (3 mL) subcutaneous pen (Novolog FlexPen U-100 Insulin aspart) insulin glargine 100 unit/mL (3 65 unit subcut BID 01/23/23 01/23/23 mL) subcutaneous pen (Basaglar KwikPen U-100 Insulin) ipratropium bromide 21 mcg (0.03 2 spray intranasal AMHS 01/23/23 01/23/23 %) nasal spray levalbuterol HCl 0.63 mg/3 mL 0.63 mg inhalation Q4 PRN Wheezing 01/23/23 01/23/23 solution for nebulization metformin 1,000 mg tablet 1,000 mg PO BID 01/23/23 01/23/23 metoprolol tartrate 50 mg tablet 75 mg PO BID 01/23/23 01/23/23 montelukast 10 mg tablet 10 mg PO DAILY 01/23/23 01/23/23 nitrofurantoin 100 mg PO BID 01/23/23 01/23/23 monohydrate/macrocrystals 100 mg capsule nystatin 100,000 unit/gram topical 1 applic topical BID 01/23/23 01/23/23 powder nystatin-triamcinolone 100,000 1 applic topical BID PRN .flare ups 01/23/23 unit/g-0.1 % topical cream pantoprazole 40 mg tablet,delayed 40 mg PO DAILY 01/23/23 01/23/23 release semaglutide 2 mg/dose (8 mg/3 mL) 2 mg subcut WK 01/23/23 01/23/23 subcutaneous pen injector (Ozempic) tamsulosin 0.4 mg capsule 0.4 mg PO HS 01/23/23 01/23/23 triamcinolone acetonide 0.1 % 1 applic topical BID PRN .flare ups 01/23/23 01/23/23 topical ointment Results & Data (ED) Vital Signs Vital Signs - 24 hr 01/23/23 16:41 01/23/23 17:12 01/23/23 17:30 Temperature 37.9 C H Temperature Source Oral Pulse Rate 101 H 106 H 98 H Pulse Rate [Apical] Pulse Rate from SpO2 Sensor 103 H Pulse Rhythm Regular Pulse Rhythm [Apical] Pulse Strength Normal Respiratory Rate 34 H 32 H Respiratory Effort / Characteristics Labored Respiratory Pattern Tachypnea Blood Pressure 174/88 H 163/110 H Blood Pressure [Right Arm] Blood Pressure Mean 116 127 Blood Pressure Mean [Right Arm] Blood Pressure Position Sitting Pulse Oximetry 97 97 Oxygen Delivery Method Room Air Nasal Cannula Oxygen Flow Rate 2 Sepsis Recent Fever Within 48 Hours Yes Sepsis New/Unexplained Change in Mental Status No Sepsis Action Taken by Nursing Physician Notified 01/23/23 17:45 01/23/23 18:00 01/23/23 18:15 Temperature Temperature Source Pulse Rate 106 H 108 H 102 H Pulse Rate [Apical] Pulse Rate from SpO2 Sensor 104 H 107 H 105 H Pulse Rhythm Pulse Rhythm [Apical] Pulse Strength Respiratory Rate 31 H 30 H 34 H Respiratory Effort / Characteristics Respiratory Pattern Blood Pressure 158/97 H 132/91 148/88 H Blood Pressure [Right Arm] Blood Pressure Mean 117 104 108 Blood Pressure Mean [Right Arm] Blood Pressure Position Pulse Oximetry 96 96 97 Oxygen Delivery Method Nasal Cannula Nasal Cannula Nasal Cannula Oxygen Flow Rate 2 2 2 Sepsis Recent Fever Within 48 Hours Sepsis New/Unexplained Change in Mental Status Sepsis Action Taken by Nursing 01/23/23 18:30 01/23/23 19:00 01/23/23 19:41 Temperature Temperature Source Pulse Rate 106 H Pulse Rate [Apical] 103 H 108 H Pulse Rate from SpO2 Sensor 107 H Pulse Rhythm Pulse Rhythm [Apical] Irregular Pulse Strength Respiratory Rate 29 H 23 Respiratory Effort / Characteristics Respiratory Pattern Blood Pressure 162/100 H Blood Pressure [Right Arm] 131/79 Blood Pressure Mean 120 Blood Pressure Mean [Right Arm] 96 Blood Pressure Position Pulse Oximetry 96 97 Oxygen Delivery Method Nasal Cannula Room Air Oxygen Flow Rate 2 Sepsis Recent Fever Within 48 Hours Sepsis New/Unexplained Change in Mental Status Sepsis Action Taken by Nursing 01/23/23 20:45 Temperature Temperature Source Pulse Rate 115 H Pulse Rate [Apical] Pulse Rate from SpO2 Sensor Pulse Rhythm Pulse Rhythm [Apical] Pulse Strength Respiratory Rate Respiratory Effort / Characteristics Respiratory Pattern Blood Pressure Blood Pressure [Right Arm] Blood Pressure Mean Blood Pressure Mean [Right Arm] Blood Pressure Position Pulse Oximetry Oxygen Delivery Method Oxygen Flow Rate Sepsis Recent Fever Within 48 Hours Sepsis New/Unexplained Change in Mental Status Sepsis Action Taken by [facility] Medications Current Medication List: was personally reviewed by me Laboratory Data Attestation: I reviewed the patient's lab results. 01/23/23 17:14 01/23/23 17:14 Lab Results 01/23/23 01/23/23 01/23/23 Range/Units 17:10 17:14 17:14 WBC 20.15 H (4.8-10.8) K/ul RBC 4.62 (4.20-5.40) M/uL Hgb 12.7 (12.0-16.0) g/dl Hct 40.0 (37.0-47.0) % MCV 86.6 (80.0-100.0) fL MCH 27.5 (25.0-34.0) pg MCHC 31.8 L (32.0-36.0) g/dL RDW Std Deviation 54.0 H (36.4-46.3) fL RDW Coeff of [place] 17.1 H (11.5-14.5) % Plt Count 172 (130-400) K/uL MPV 10.6 (9.4-12.4) fL Immature Gran % (Auto) 0.8 % Neut % (Auto) 86.2 % Lymph % (Auto) 6.7 % [place] % (Auto) 5.6 % Eos % (Auto) 0.2 % Baso % (Auto) 0.5 % Neut # (Auto) 17.36 H (1.40-6.50) K/uL Lymph # (Auto) 1.36 (1.20-3.40) K/uL [place] # (Auto) 1.13 H (0.11-0.59) K/uL Eos # (Auto) 0.04 (0.00-0.50) K/uL Baso # (Auto) 0.10 (0.00-0.20) K/uL Immature Gran # (Auto) 0.16 (0.01-0.20) K/uL PT 10.8 (9.0-12.0) Seconds INR 1.0 (0.9-1.1) APTT 29.3 (21.0-31.0) Seconds PTT Ratio 1.0 VBG pH (7.36-7.41) VBG pCO2 (38-50) mmHg VBG pO2 mmHg VBG HCO3 mmol/L VBG O2 Saturation % VBG Base Excess mEq/L Sodium (136-145) mmol/L Potassium (3.5-5.1) mmol/L Chloride (98-107) mmol/L Carbon Dioxide (21-32) mmol/L Anion Gap (3-11) BUN (6-23) mg/dl Creatinine (0.6-1.2) mg/dl Est Cr Clr Drug Dosing ml/min Est GFR ( Amer) ml/min Est GFR (Non-Af Amer) ml/min BUN/Creatinine Ratio (10-20) Glucose (70-99(Fasting)) mg/dl Lactate (0.4-2.0) mmol/L Calcium (8.6-10.3) mg/dl Magnesium (1.7-2.4) mg/dl Total Bilirubin (0.2-1.0) mg/dl Direct Bilirubin (0-0.2) mg/dl AST (13-39) U/L ALT (7-52) U/L Alkaline Phosphatase (34-104) U/L Troponin I High Sens (0-14) pg/ml B-Natriuretic Peptide (0-100) pg/ml Total Protein (6.0-8.3) gm/dl Albumin (3.4-5.0) gm/dl Procalcitonin (0-0.5) ng/ml Urine Color Yellow Urine Appearance Clear (Clear) Urine pH 5.0 (4.5-7.5) Ur Specific [place] 1.009 (1.000-1.030) Urine Protein Negative (Negative) Urine Glucose (UA) Negative (Negative) Urine Ketones Negative (Negative) Urine Blood 3+ H (Negative) Urine Nitrite Negative (Negative) Urine Bilirubin Negative (Negative) Urine Urobilinogen Negative (Negative) Ur Leukocyte Esterase Negative (Negative) Urine WBC (Auto) 0 (0-5) /hpf Urine RBC (Auto) 0-4 (0-4) /hpf U Hyaline Cast (Auto) 0 (0-5) /lpf U Epithel Cells (Auto) 0-5 (0-5) /lpf Urine Bacteria (Auto) Negative (Negative) Adenovirus (PCR) (NotDetected) B. pertussis DNA (PCR) (NotDetected) B.parapertussis DNA PCR (NotDetected) C. pneumoniae DNA (PCR) (NotDetected) Coronavirus OC43 (PCR) (NotDetected) Coronavirus HKU1 (PCR) (NotDetected) Coronavirus 229E (PCR) (NotDetected) SARS-CoV-2 (PCR) (NotDetected) Coronavirus NL63 (PCR) (NotDetected) Human Metapneumovir PCR (NotDetected) Influenza Type A (PCR) (NotDetected) Influenza Type B (PCR) (NotDetected) M. pneumoniae (PCR) (NotDetected) Parainfluenza 1 (PCR) (NotDetected) Parainfluenza 2 (PCR) (NotDetected) Parainfluenza 3 (PCR) (NotDetected) Parainfluenza 4 (PCR) (NotDetected) RSV (PCR) (NotDetected) Entero/Rhino (PCR) (NotDetected) 01/23/23 01/23/23 01/23/23 Range/Units 17:14 17:14 17:18 WBC (4.8-10.8) K/ul RBC (4.20-5.40) M/uL Hgb (12.0-16.0) g/dl Hct (37.0-47.0) % MCV (80.0-100.0) fL MCH (25.0-34.0) pg MCHC (32.0-36.0) g/dL RDW Std Deviation (36.4-46.3) fL RDW Coeff of [place] (11.5-14.5) % Plt Count (130-400) K/uL MPV (9.4-12.4) fL Immature Gran % (Auto) % Neut % (Auto) % Lymph % (Auto) % [place] % (Auto) % Eos % (Auto) % Baso % (Auto) % Neut # (Auto) (1.40-6.50) K/uL Lymph # (Auto) (1.20-3.40) K/uL [place] # (Auto) (0.11-0.59) K/uL Eos # (Auto) (0.00-0.50) K/uL Baso # (Auto) (0.00-0.20) K/uL Immature Gran # (Auto) (0.01-0.20) K/uL PT (9.0-12.0) Seconds INR (0.9-1.1) APTT (21.0-31.0) Seconds PTT Ratio VBG pH (7.36-7.41) VBG pCO2 (38-50) mmHg VBG pO2 mmHg VBG HCO3 mmol/L VBG O2 Saturation % VBG Base Excess mEq/L Sodium 136 (136-145) mmol/L Potassium 4.4 (3.5-5.1) mmol/L Chloride 102 (98-107) mmol/L Carbon Dioxide 23 (21-32) mmol/L Anion Gap 11 (3-11) BUN 15 (6-23) mg/dl Creatinine 0.84 (0.6-1.2) mg/dl Est Cr Clr Drug Dosing 91.4 ml/min Est GFR ( Amer) 81.6 ml/min Est GFR (Non-Af Amer) 70.4 ml/min BUN/Creatinine Ratio 17.9 (10-20) Glucose 263 H (70-99(Fasting)) mg/dl Lactate (0.4-2.0) mmol/L Calcium 9.4 (8.6-10.3) mg/dl Magnesium 1.3 L (1.7-2.4) mg/dl Total Bilirubin 0.7 (0.2-1.0) mg/dl Direct Bilirubin 0.2 (0-0.2) mg/dl AST 26 (13-39) U/L ALT 29 (7-52) U/L Alkaline Phosphatase 118 H (34-104) U/L Troponin I High Sens 8.6 (0-14) pg/ml B-Natriuretic Peptide (0-100) pg/ml Total Protein 7.8 (6.0-8.3) gm/dl Albumin 4.3 (3.4-5.0) gm/dl Procalcitonin 0.12 (0-0.5) ng/ml Urine Color Urine Appearance (Clear) Urine pH (4.5-7.5) Ur Specific [place] (1.000-1.030) Urine Protein (Negative) Urine Glucose (UA) (Negative) Urine Ketones (Negative) Urine Blood (Negative) Urine Nitrite (Negative) Urine Bilirubin (Negative) Urine Urobilinogen (Negative) Ur Leukocyte Esterase (Negative) Urine WBC (Auto) (0-5) /hpf Urine RBC (Auto) (0-4) /hpf U Hyaline Cast (Auto) (0-5) /lpf U Epithel Cells (Auto) (0-5) /lpf Urine Bacteria (Auto) (Negative) Adenovirus (PCR) Not Detected (NotDetected) B. pertussis DNA (PCR) Not Detected (NotDetected) B.parapertussis DNA PCR Not Detected (NotDetected) C. pneumoniae DNA (PCR) Not Detected (NotDetected) Coronavirus OC43 (PCR) Not Detected (NotDetected) Coronavirus HKU1 (PCR) Not Detected (NotDetected) Coronavirus 229E (PCR) Not Detected (NotDetected) SARS-CoV-2 (PCR) Not Detected (NotDetected) Coronavirus NL63 (PCR) Not Detected (NotDetected) Human Metapneumovir PCR Not Detected (NotDetected) Influenza Type A (PCR) Not Detected (NotDetected) Influenza Type B (PCR) Not Detected (NotDetected) M. pneumoniae (PCR) Not Detected (NotDetected) Parainfluenza 1 (PCR) Not Detected (NotDetected) Parainfluenza 2 (PCR) Not Detected (NotDetected) Parainfluenza 3 (PCR) Not Detected (NotDetected) Parainfluenza 4 (PCR) Not Detected (NotDetected) RSV (PCR) Not Detected (NotDetected) Entero/Rhino (PCR) Not Detected (NotDetected) 01/23/23 01/23/23 01/23/23 Range/Units 17:52 17:52 17:52 WBC (4.8-10.8) K/ul RBC (4.20-5.40) M/uL Hgb (12.0-16.0) g/dl Hct (37.0-47.0) % MCV (80.0-100.0) fL MCH (25.0-34.0) pg MCHC (32.0-36.0) g/dL RDW Std Deviation (36.4-46.3) fL RDW Coeff of [place] (11.5-14.5) % Plt Count (130-400) K/uL MPV (9.4-12.4) fL Immature Gran % (Auto) % Neut % (Auto) % Lymph % (Auto) % [place] % (Auto) % Eos % (Auto) % Baso % (Auto) % Neut # (Auto) (1.40-6.50) K/uL Lymph # (Auto) (1.20-3.40) K/uL [place] # (Auto) (0.11-0.59) K/uL Eos # (Auto) (0.00-0.50) K/uL Baso # (Auto) (0.00-0.20) K/uL Immature Gran # (Auto) (0.01-0.20) K/uL PT (9.0-12.0) Seconds INR (0.9-1.1) APTT (21.0-31.0) Seconds PTT Ratio VBG pH 7.42 H (7.36-7.41) VBG pCO2 45 (38-50) mmHg VBG pO2 28 mmHg VBG HCO3 29 mmol/L VBG O2 Saturation < 60.0 % VBG Base Excess 4.0 mEq/L Sodium (136-145) mmol/L Potassium (3.5-5.1) mmol/L Chloride (98-107) mmol/L Carbon Dioxide (21-32) mmol/L Anion Gap (3-11) BUN (6-23) mg/dl Creatinine (0.6-1.2) mg/dl Est Cr Clr Drug Dosing ml/min Est GFR ( Amer) ml/min Est GFR (Non-Af Amer) ml/min BUN/Creatinine Ratio (10-20) Glucose (70-99(Fasting)) mg/dl Lactate 3.4 H* (0.4-2.0) mmol/L Calcium (8.6-10.3) mg/dl Magnesium (1.7-2.4) mg/dl Total Bilirubin (0.2-1.0) mg/dl Direct Bilirubin (0-0.2) mg/dl AST (13-39) U/L ALT (7-52) U/L Alkaline Phosphatase (34-104) U/L Troponin I High Sens (0-14) pg/ml B-Natriuretic Peptide 156 H (0-100) pg/ml Total Protein (6.0-8.3) gm/dl Albumin (3.4-5.0) gm/dl Procalcitonin (0-0.5) ng/ml Urine Color Urine Appearance (Clear) Urine pH (4.5-7.5) Ur Specific [place] (1.000-1.030) Urine Protein (Negative) Urine Glucose (UA) (Negative) Urine Ketones (Negative) Urine Blood (Negative) Urine Nitrite (Negative) Urine Bilirubin (Negative) Urine Urobilinogen (Negative) Ur Leukocyte Esterase (Negative) Urine WBC (Auto) (0-5) /hpf Urine RBC (Auto) (0-4) /hpf U Hyaline Cast (Auto) (0-5) /lpf U Epithel Cells (Auto) (0-5) /lpf Urine Bacteria (Auto) (Negative) Adenovirus (PCR) (NotDetected) B. pertussis DNA (PCR) (NotDetected) B.parapertussis DNA PCR (NotDetected) C. pneumoniae DNA (PCR) (NotDetected) Coronavirus OC43 (PCR) (NotDetected) Coronavirus HKU1 (PCR) (NotDetected) Coronavirus 229E (PCR) (NotDetected) SARS-CoV-2 (PCR) (NotDetected) Coronavirus NL63 (PCR) (NotDetected) Human Metapneumovir PCR (NotDetected) Influenza Type A (PCR) (NotDetected) Influenza Type B (PCR) (NotDetected) M. pneumoniae (PCR) (NotDetected) Parainfluenza 1 (PCR) (NotDetected) Parainfluenza 2 (PCR) (NotDetected) Parainfluenza 3 (PCR) (NotDetected) Parainfluenza 4 (PCR) (NotDetected) RSV (PCR) (NotDetected) Entero/Rhino (PCR) (NotDetected) 01/23/23 Range/Units 20:36 WBC (4.8-10.8) K/ul RBC (4.20-5.40) M/uL Hgb (12.0-16.0) g/dl Hct (37.0-47.0) % MCV (80.0-100.0) fL MCH (25.0-34.0) pg MCHC (32.0-36.0) g/dL RDW Std Deviation (36.4-46.3) fL RDW Coeff of [place] (11.5-14.5) % Plt Count (130-400) K/uL MPV (9.4-12.4) fL Immature Gran % (Auto) % Neut % (Auto) % Lymph % (Auto) % [place] % (Auto) % Eos % (Auto) % Baso % (Auto) % Neut # (Auto) (1.40-6.50) K/uL Lymph # (Auto) (1.20-3.40) K/uL [place] # (Auto) (0.11-0.59) K/uL Eos # (Auto) (0.00-0.50) K/uL Baso # (Auto) (0.00-0.20) K/uL Immature Gran # (Auto) (0.01-0.20) K/uL PT (9.0-12.0) Seconds INR (0.9-1.1) APTT (21.0-31.0) Seconds PTT Ratio VBG pH (7.36-7.41) VBG pCO2 (38-50) mmHg VBG pO2 mmHg VBG HCO3 mmol/L VBG O2 Saturation % VBG Base Excess mEq/L Sodium (136-145) mmol/L Potassium (3.5-5.1) mmol/L Chloride (98-107) mmol/L Carbon Dioxide (21-32) mmol/L Anion Gap (3-11) BUN (6-23) mg/dl Creatinine (0.6-1.2) mg/dl Est Cr Clr Drug Dosing ml/min Est GFR ( Amer) ml/min Est GFR (Non-Af Amer) ml/min BUN/Creatinine Ratio (10-20) Glucose (70-99(Fasting)) mg/dl Lactate 4.1 H* (0.4-2.0) mmol/L Calcium (8.6-10.3) mg/dl Magnesium (1.7-2.4) mg/dl Total Bilirubin (0.2-1.0) mg/dl Direct Bilirubin (0-0.2) mg/dl AST (13-39) U/L ALT (7-52) U/L Alkaline Phosphatase (34-104) U/L Troponin I High Sens (0-14) pg/ml B-Natriuretic Peptide (0-100) pg/ml Total Protein (6.0-8.3) gm/dl Albumin (3.4-5.0) gm/dl Procalcitonin (0-0.5) ng/ml Urine Color Urine Appearance (Clear) Urine pH (4.5-7.5) Ur Specific [place] (1.000-1.030) Urine Protein (Negative) Urine Glucose (UA) (Negative) Urine Ketones (Negative) Urine Blood (Negative) Urine Nitrite (Negative) Urine Bilirubin (Negative) Urine Urobilinogen (Negative) Ur Leukocyte Esterase (Negative) Urine WBC (Auto) (0-5) /hpf Urine RBC (Auto) (0-4) /hpf U Hyaline Cast (Auto) (0-5) /lpf U Epithel Cells (Auto) (0-5) /lpf Urine Bacteria (Auto) (Negative) Adenovirus (PCR) (NotDetected) B. pertussis DNA (PCR) (NotDetected) B.parapertussis DNA PCR (NotDetected) C. pneumoniae DNA (PCR) (NotDetected) Coronavirus OC43 (PCR) (NotDetected) Coronavirus HKU1 (PCR) (NotDetected) Coronavirus 229E (PCR) (NotDetected) SARS-CoV-2 (PCR) (NotDetected) Coronavirus NL63 (PCR) (NotDetected) Human Metapneumovir PCR (NotDetected) Influenza Type A (PCR) (NotDetected) Influenza Type B (PCR) (NotDetected) M. pneumoniae (PCR) (NotDetected) Parainfluenza 1 (PCR) (NotDetected) Parainfluenza 2 (PCR) (NotDetected) Parainfluenza 3 (PCR) (NotDetected) Parainfluenza 4 (PCR) (NotDetected) RSV (PCR) (NotDetected) Entero/Rhino (PCR) (NotDetected) Administered Medications Discontinued Medications Acetaminophen (Acetaminophen 325 Mg Tab) 650 mg PO NOW STA Stop: 01/23/23 20:17 Last Admin: 01/23/23 20:26 Dose: 650 mg Documented By: KT Acetaminophen (Acetaminophen 500 Mg Tab) 500 mg PO NOW STA Stop: 01/23/23 21:31 Last Admin: 01/23/23 22:43 Dose: Not Given Documented By: KT Ertapenem (Invanz) 10 mls @ 2 mls/min IV NOW STA Stop: 01/23/23 17:50 Last Admin: 01/23/23 18:21 Dose: 2 mls/min Documented By: [place] Magnesium Sulfate/Dextrose (Magnesium Sulfate / D5w) 1 gm in 100 mls @ 100 mls/hr IV Q1H GARIMA Stop: 01/23/23 20:32 Last Infusion: 01/23/23 22:44 Dose: 0 mls/hr Documented By: Admin: 01/23/23 20:27 Dose: 100 mls/hr Documented By: Infusion: 01/23/23 20:27 Dose: 100 mls/hr Documented By: Admin: 01/23/23 19:46 Dose: 100 mls/hr Documented By: KT Sodium Chloride (Nss) 500 mls @ 999 mls/hr IV .Q31M ONE Stop: 01/23/23 20:46 Last Admin: 01/23/23 21:01 Dose: Not Given Documented By: KT Albumin Human (Albumin 25%) 25 gm in 100 mls @ 50 mls/hr IV ONE ONE Stop: 01/23/23 22:29 Last Infusion: 01/23/23 22:44 Dose: 0 mls/hr Documented By: Admin: 01/23/23 21:00 Dose: 50 mls/hr Documented By: KT Magnesium Sulfate/Dextrose (Magnesium Sulfate / D5w) 1 gm in 100 mls @ 50 mls/hr IV ONE ONE Stop: 01/23/23 22:30 Last Admin: 01/23/23 20:59 Dose: 50 mls/hr Documented By: KT Piperacillin Sod/Tazobactam Sod (Zosyn) 4.5 gm in 100 mls @ 200 mls/hr IV NOW STA Stop: 01/23/23 21:35 Last Admin: 01/23/23 22:44 Dose: 200 mls/hr Documented By: MANJEET Ioversol (Optiray 320 500ml) 114 ml IV ONCE ONE Stop: 01/23/23 19:05 Last Admin: 01/23/23 19:06 Dose: 114 ml Documented By: HERON Ipratropium [place] (Ipratropium [place] Neb Soln 0.02% 2.5 Ml Vial) 0.5 mg INH NOW STA Stop: 01/23/23 20:29 Last Admin: 01/23/23 21:00 Dose: 0.5 mg Documented By: MANJEET Levalbuterol HCl (Levalbuterol 1.25 Mg/3 Ml Neb) 1.25 mg NEB NOW STA Stop: 01/23/23 20:29 Last Admin: 01/23/23 21:00 Dose: 1.25 mg Documented By: MANJEET Tamsulosin HCl (Tamsulosin Hcl 0.4 Mg Cap) 0.4 mg PO NOW ONE Stop: 01/23/23 20:37 Last Admin: 01/23/23 21:00 Dose: 0.4 mg Documented By: MANJEET Imaging Data Attestation: I personally reviewed and interpreted this imaging study as follows: My Impression: 1 view chest x-ray was obtained in the emergency department. My interpretation is cardiomegaly with volume overload, final report below. CT of the abdomen and pelvis was obtained in the emergency department. My interpretation is obstructing right-sided ureteral calculus, no free air, final report below Radiologist's Impression: Chest X-Ray 01/23/23 16:55 SINGLE VIEW CHEST CLINICAL HISTORY: Sepsis. FINDINGS: An AP, portable, upright chest radiograph is compared to study dated 04/04/2022. Correlation is made with chest CT dated 02/14/2021. The heart is enlarged noting atherosclerotic calcification of the thoracic area aorta. There is pulmonary vascular congestion an mild interstitial edema. Emphysema and chronic interstitial thickening is similar to previous. Scarring/atelectasis is seen at the lung bases. No airspace consolidation or large pleural effusion is identified. No pneumothorax is seen. The skeletal structures are osteopenic. The bony thorax is grossly intact. IMPRESSION: 1. Cardiomegaly with evidence of congestive failure and mild pulmonary edema. 2. Emphysema. 3. No airspace consolidation or large pleural effusion is identified. ACT 112: Negative or not required by law. Electronically signed by: Semaj Gonzalez M.D. 01/23/2023 5:31 PM Abdomen/Pelvis CT 01/23/23 18:33 Exam(s): CT ABDOMEN + PELVIS With Contrast IV Amt: 114 ml opti 320 EXAM: CT Abdomen and Pelvis With Intravenous Contrast CLINICAL HISTORY: Reason for exam: fever and pain. TECHNIQUE: Axial computed tomography images of the abdomen and pelvis with intravenous contrast. CTDI is 28.14 mGy and DLP is 1499.82 mGy-cm. Automated exposure control was utilized for the study. A dose lowering technique was utilized adhering to the principles of ALARA. CONTRAST: Patient received 114 ml opti 320 of IV contrast COMPARISON: No relevant prior studies available. FINDINGS: Lung bases: Unremarkable. No mass. No consolidation. ABDOMEN: Liver: Hepatic steatosis. Gallbladder and bile ducts: Unremarkable. No calcified stones. No ductal dilation. Pancreas: Unremarkable. No mass. No ductal dilation. Spleen: Unremarkable. No splenomegaly. Adrenals: Unremarkable. No mass. Kidneys and ureters: Obstructing 6 x 5 mm stone in the RIGHT proximal ureter. Mild fullness of the RIGHT renal collecting system. Nonobstructing 5 mm RIGHT mid pole renal stone. Stomach and bowel: Diverticulosis, without acute diverticulitis. No small bowel obstruction. No free intraperitoneal air. PELVIS: Appendix: No findings to suggest acute appendicitis. Bladder: Decompressed urinary bladder which contains a Miller catheter. Reproductive: Unremarkable as visualized. ABDOMEN and PELVIS: Intraperitoneal space: Unremarkable. No free air. No significant fluid collection. Bones/joints: Degenerative changes of the spine. No acute fracture. No dislocation. Soft tissues: Small fat-containing umbilical hernia. Vasculature: Atherosclerotic changes of the aorta. No abdominal aortic aneurysm. Lymph nodes: Unremarkable. No enlarged lymph nodes. IMPRESSION: 1. Obstructing 6 x 5 mm stone in the RIGHT proximal ureter. Mild fullness of the RIGHT renal collecting system. Nonobstructing 5 mm RIGHT mid pole renal stone. 2. Diverticulosis, without acute diverticulitis. No small bowel obstruction. No free intraperitoneal air. Electronically signed by: Kyler Chaney MD 01/23/23 20:04 PM Chest CTA 01/23/23 18:33 Exam(s): CTA CHEST IV Amt: 114 ml opti 320 EXAM: CT Angiography Chest With Intravenous Contrast CLINICAL HISTORY: Reason for exam: PE. TECHNIQUE: Axial computed tomographic angiography images of the chest with intravenous contrast. CTDI is 28.14 mGy and DLP is 894.74 mGy-cm. Automated exposure control was utilized for the study. A dose lowering technique was utilized adhering to the principles of ALARA. MIP reconstructed images were created and reviewed. COMPARISON: No relevant prior studies available. FINDINGS: Pulmonary arteries: Unremarkable. No acute pulmonary embolism. Aorta: No acute findings. No thoracic aortic aneurysm. Lungs: Atelectasis at the lung bases. No mass. Pleural space: Unremarkable. No significant effusion. No pneumothorax. Heart: Cardiomegaly. No significant pericardial effusion. No evidence of RV dysfunction. Bones/joints: No acute fracture. No dislocation. Soft tissues: Unremarkable. Lymph nodes: Unremarkable. No enlarged lymph nodes. Liver: Hepatic steatosis. IMPRESSION: No acute pulmonary embolism. Electronically signed by: Kyler Chaney MD 01/23/23 19:[address] 01/23/23 21:28 Exam(s): CT HEAD Without Contrast EXAM: CT Head Without Intravenous Contrast CLINICAL HISTORY: Reason for exam: mcclendon, ams, eliquis,. TECHNIQUE: Axial computed tomography images of the head/brain without intravenous contrast. CTDI is 36.31 mGy and DLP is 625.8 mGy-cm. Automated exposure control was utilized for the study. A dose lowering technique was utilized adhering to the principles of ALARA. COMPARISON: No relevant prior studies available. FINDINGS: No acute intracranial hemorrhage. No midline shift or mass effect. The territorial khan-white matter differentiation is maintained throughout. Age-related cerebral volume loss. Periventricular and subcortical white matter hypoattenuation, consistent with chronic microangiopathy. The visualized orbits appear grossly unremarkable. The calvarium is intact. The visualized paranasal sinuses and mastoid air cells are grossly clear. IMPRESSION: No acute intracranial hemorrhage, midline shift, or mass effect. Electronically signed by: Kyler Chaney MD 01/23/23 22:19 PM Discharge Plan Visit Data Chief Complaint: Shortness of Breath/Dyspnea Stated Complaint: WEAKNESS ED Provider: Tor Dinh Discharge Problem: Hydronephrosis with renal and ureteral calculous obstruction, Fever, Hypomagnesemia, Acute urinary retention Patient Disposition: Being Evaluated by Hospitalist Forms Stand Alone Forms: [facility] [employer] Prescriptions Prescriptions: No Action levalbuterol HCl 0.63 mg/3 mL Solution For Nebulization 0.63 mg INHALATION Q4 PRN (Reason: Wheezing) diltiazem HCl 180 mg capsule,extended release 24hr 180 mg PO DAILY hydrocodone-acetaminophen 5-325 mg tablet 1 tab PO Q6 PRN (Reason: Pain) hydrocortisone acetate 25 mg suppository 25 mg NE BID PRN (Reason: Hemorrhoids) famotidine 20 mg tablet 20 mg PO DAILY tamsulosin 0.4 mg capsule 0.4 mg PO HS baclofen 10 mg Tablet 10 mg PO BID PRN (Reason: Muscle Pain) pantoprazole 40 mg tablet,delayed release (DR/EC) 40 mg PO DAILY metformin 1,000 mg tablet 1,000 mg PO BID triamcinolone acetonide 0.1 % Ointment 1 applic TOPICAL BID PRN (Reason: .flare ups) metoprolol tartrate 50 mg tablet 75 mg PO BID Rx Instructions: Filled 01/15/23 nystatin-triamcinolone 100,000-0.1 unit/g-% cream 1 applic TOPICAL BID PRN (Reason: .flare ups) montelukast 10 mg Tablet 10 mg PO DAILY nystatin 100,000 unit/gram powder 1 applic TOPICAL BID Rx Instructions: Apply 0.5 g to groin ipratropium bromide 21 mcg (0.03 %) spray,non-aerosol 2 spray INTRANASAL [facility] insulin aspart U-100 [Novolog FlexPen U-100 Insulin] 100 unit/mL (3 mL) insulin pen 20 - 25 unit SUBCUT BIDM insulin glargine [Basaglar KwikPen U-100 Insulin] 100 unit/mL (3 mL) insulin pen 65 unit SUBCUT BID Eliquis 5 mg Tablet 5 mg PO BID Ozempic 2 mg/dose (8 mg/3 mL) pen injector 2 mg SUBCUT WK Rx Instructions: wed atorvastatin 40 mg tablet 40 mg PO DAILY fluconazole 150 mg tablet 150 mg PO ONCE albuterol sulfate 90 mcg/actuation HFA aerosol inhaler 2 inh INHALATION Q4H PRN (Reason: Shortness Of Breath Or Wheezing) nitrofurantoin monohyd/m-cryst 100 mg capsule 100 mg PO BID Referrals Referrals: Sabine Mosley DO [Primary Care Provider] -
[2023-01-23 17:32] LABS: Appearance Urine Clear (Clear); Bacteria Urine Automated Negative (Negative); Bilirubin Urine Negative (Negative); Blood Urine 3+ (Negative); Cast Urine Automated 0 /lpf (0-5); Color Urine Yellow; Epithelial Cell Urine Auto 0-5 /lpf (0-5); Glucose Urine UA Negative (Negative); Ketones Urine Negative (Negative); Leukocyte Esterase Urine Negative (Negative); Nitrite Urine Negative (Negative); Protein Urine Negative (Negative); RBC Urine Automated 0-4 /hpf (0-4); Specific Gravity Urine 1.009 (1.000-1.030); Urobilinogen Urine Negative (Negative); WBC Urine Automated 0 /hpf (0-5)
--- NOTE | 2023-01-23 17:32 | XRay Report ---
SINGLE VIEW CHEST CLINICAL HISTORY: Sepsis. FINDINGS: An AP, portable, upright chest radiograph is compared to study dated 04/04/2022. Correlatio n is made with chest CT dated 02/14/2021. The heart is enlarged noting atherosclerotic calcification of the thoracic area aorta. There is pulmonary vascular congestion an mild interstitial edema. Emphys vonnie and chronic interstitial thickening is similar to previous. Scarring/atelectasis is seen at the l anita bases. No airspace consolidation or large pleural effusion is identified. No pneumothorax is seen . The skeletal structures are osteopenic. The bony thorax is grossly intact. IMPRESSION: 1. Cardiomegaly with evidence of congestive failure and mild pulmonary edema. 2. Emphysema. 3. No airspace consolidation or large pleural effusion is identified. ACT 112: Negative or not required by law. Electronically signed by: Semaj Gonzalez M.D. 01/23/2023 5:31 PM
[2023-01-23 17:41] LABS: Basophils % (auto) 0.5 %; Eosinophils # (auto) 0.04 K/uL (0.00-0.50); Eosinophils % (auto) 0.2 %; Hemoglobin 12.7 g/dl (12.0-16.0); Immature Granulocytes # (auto) 0.16 K/uL (0.01-0.20); Immature Granulocytes % (auto) 0.8 %; Lymphocytes # (auto) 1.36 K/uL (1.20-3.40); Lymphocytes % (auto) 6.7 %; Mean Corpuscular Hemoglobin 27.5 pg (25.0-34.0); Mean Corpuscular Hgb Conc 31.8 g/dL (32.0-36.0); Mean Corpuscular Volume 86.6 fL (80.0-100.0); Mean Platelet Volume 10.6 fL (9.4-12.4); Monocytes # (auto) 1.13 K/uL (0.11-0.59); Monocytes % (auto) 5.6 %; Neutrophils # (auto) 17.36 K/uL (1.40-6.50); Neutrophils % (auto) 86.2 %; Platelet Count 172 K/uL (130-400); RDW Coefficient of Variation 17.1 % (11.5-14.5); Red Blood Count 4.62 M/uL (4.20-5.40); White Blood Count 20.15 K/ul (4.8-10.8)
[2023-01-23 17:45] LABS: Albumin Level 4.3 gm/dl (3.4-5.0); BUN Creatinine Ratio 17.9 (10-20); Bilirubin Direct 0.2 mg/dl (0-0.2); Bilirubin,Total 0.7 mg/dl (0.2-1.0); Calcium 9.4 mg/dl (8.6-10.3); Creatinine Clr Calc Pharmacy 91.4 ml/min; Est GFR (African American) 81.6 ml/min; Est GFR (Non-African American) 70.4 ml/min; Magnesium 1.3 mg/dl (1.7-2.4); Potassium 4.4 mmol/L (3.5-5.1); Total Protein 7.8 gm/dl (6.0-8.3)
[2023-01-23] MEDS ORDERED: ERTAPENEM SODIUM 10 ML IV STA (17:46)
[2023-01-23 17:52] LABS: Troponin I High Sensitivity 8.6 pg/ml (0-14)
[2023-01-23 17:55] LABS: Partial Thromboplastin Time 29.3 Seconds (21.0-31.0); Prothrombin Time 10.8 Seconds (9.0-12.0)
[2023-01-23 18:08] LABS: HCO3 VBG 29 mmol/L; Oxygen Saturation VBG < 60.0 %; PCO2 VBG 45 mmHg (38-50); PO2 VBG 28 mmHg; pH VBG 7.42 (7.36-7.41)
[2023-01-23 18:18] LABS: Adenovirus PCR Not Detected (NotDetected); Bordetella parapertussis PCR Not Detected (NotDetected); Bordetella pertussis PCR Not Detected (NotDetected); Chlamydia pneumoniae PCR Not Detected (NotDetected); Coronavirus 229E PCR Not Detected (NotDetected); Coronavirus CoV-2 (COVID19)PCR Not Detected (NotDetected); Coronavirus HKU1 PCR Not Detected (NotDetected); Coronavirus NL63 PCR Not Detected (NotDetected); Coronavirus OC43PCR Not Detected (NotDetected); Human Metapneumovirus PCR Not Detected (NotDetected); Influenza A PCR Not Detected (NotDetected); Influenza B PCR Not Detected (NotDetected); Mycoplasma pneumoniae PCR Not Detected (NotDetected); Parainfluenza Virus 1 PCR Not Detected (NotDetected); Parainfluenza Virus 2 PCR Not Detected (NotDetected); Parainfluenza Virus 3 PCR Not Detected (NotDetected); Parainfluenza Virus 4 PCR Not Detected (NotDetected); Respiratory Syncytial VirusPCR Not Detected (NotDetected); Rhinovirus/Enterovirus PCR Not Detected (NotDetected)
[2023-01-23] MEDS ORDERED: OPTIRAY 320 500ml IV ONE (19:04)
[2023-01-23] MEDS: MAGNESIUM SULFATE / D5W 1 GM/100 ML BAG IV SCH ×2 (19:46→20:27)
--- NOTE | 2023-01-23 19:58 | CT Scan Report ---
Exam(s): CTA CHEST IV Amt: 114 ml opti 320 EXAM: CT Angiography Chest With Intravenous Contrast CLINICAL HISTORY: Reason for exam: PE. TECHNIQUE: Axial computed tomographic angiography images of the chest with intravenous contrast. CTDI is 28.14 mGy and DLP is 894.74 mGy-cm. Automated exposure control was utilized for the study. A dose lowering technique was utilized adhering to the principles of ALARA. MIP reconstructed images were created and reviewed. COMPARISON: No relevant prior studies available. FINDINGS: Pulmonary arteries: Unremarkable. No acute pulmonary embolism. Aorta: No acute findings. No thoracic aortic aneurysm. Lungs: Atelectasis at the lung bases. No mass. Pleural space: Unremarkable. No significant effusion. No pneumothorax. Heart: Cardiomegaly. No significant pericardial effusion. No evidence of RV dysfunction. Bones/joints: No acute fracture. No dislocation. Soft tissues: Unremarkable. Lymph nodes: Unremarkable. No enlarged lymph nodes. Liver: Hepatic steatosis. IMPRESSION: No acute pulmonary embolism. Electronically signed by: Kyler Chaney MD 01/23/23 19:57 PM
--- NOTE | 2023-01-23 20:05 | CT Scan Report ---
Exam(s): CT ABDOMEN + PELVIS With Contrast IV Amt: 114 ml opti 320 EXAM: CT Abdomen and Pelvis With Intravenous Contrast CLINICAL HISTORY: Reason for exam: fever and pain. TECHNIQUE: Axial computed tomography images of the abdomen and pelvis with intravenous contrast. CTDI is 28.14 mGy and DLP is 1499.82 mGy-cm. Automated exposure control was utilized for the study. A dose lowering technique was utilized adhering to the principles of ALARA. CONTRAST: Patient received 114 ml opti 320 of IV contrast COMPARISON: No relevant prior studies available. FINDINGS: Lung bases: Unremarkable. No mass. No consolidation. ABDOMEN: Liver: Hepatic steatosis. Gallbladder and bile ducts: Unremarkable. No calcified stones. No ductal dilation. Pancreas: Unremarkable. No mass. No ductal dilation. Spleen: Unremarkable. No splenomegaly. Adrenals: Unremarkable. No mass. Kidneys and ureters: Obstructing 6 x 5 mm stone in the RIGHT proximal ureter. Mild fullness of the RIGHT renal collecting system. Nonobstructing 5 mm RIGHT mid pole renal stone. Stomach and bowel: Diverticulosis, without acute diverticulitis. No small bowel obstruction. No free intraperitoneal air. PELVIS: Appendix: No findings to suggest acute appendicitis. Bladder: Decompressed urinary bladder which contains a Miller catheter. Reproductive: Unremarkable as visualized. ABDOMEN and PELVIS: Intraperitoneal space: Unremarkable. No free air. No significant fluid collection. Bones/joints: Degenerative changes of the spine. No acute fracture. No dislocation. Soft tissues: Small fat-containing umbilical hernia. Vasculature: Atherosclerotic changes of the aorta. No abdominal aortic aneurysm. Lymph nodes: Unremarkable. No enlarged lymph nodes. IMPRESSION: 1. Obstructing 6 x 5 mm stone in the RIGHT proximal ureter. Mild fullness of the RIGHT renal collecting system. Nonobstructing 5 mm RIGHT mid pole renal stone. 2. Diverticulosis, without acute diverticulitis. No small bowel obstruction. No free intraperitoneal air. Electronically signed by: Kyler Chaney MD 01/23/23 20:04 PM
[2023-01-23] MEDS ORDERED: ACETAMINOPHEN 325 MG TAB PO STA (20:16)
[2023-01-23] MEDS: SODIUM CHLORIDE 0.9% 500 ML IV ONE ×2 (20:27→21:01)
[2023-01-23] MEDS ORDERED: XOPENEX/ATROVENT 1.25mg/0.5MG NEB COMBO NEB STA (20:28)
[2023-01-23] MEDS ORDERED: IPRATROPIUM BROMIDE NEB SOLN 0.02% 2.5 ML VIAL INH STA (20:28)
[2023-01-23] MEDS ORDERED: LEVALBUTEROL 1.25 MG/3 ML NEB NEB STA (20:28)
[2023-01-23] MEDS ORDERED: ALBUMIN 25% 25 GM/100 ML VIAL IV ONE (20:30)
[2023-01-23] MEDS ORDERED: MAGNESIUM SULFATE / D5W 1 GM/100 ML BAG IV ONE (20:31)
--- NOTE | 2023-01-23 20:33 | History & Physical Report ---
Date of Service January 23, 2023 Assessment & Plan (1) Ureteral calculus, right: (2) Sepsis: (3) Hypomagnesemia: (4) Diabetes mellitus, type II: (5) Hypertension: (6) HLD (hyperlipidemia): (7) Paroxysmal atrial fibrillation: (8) COPD (chronic obstructive pulmonary disease): (9) H/O: CVA (cerebrovascular accident): (10) REENA (obstructive sleep apnea): (11) Chronic diastolic heart failure: (12) Bipolar disorder: (13) Morbid obesity: Plan: Assessment and Plan per Dr Gallardo. See addendum. History of Present Illness Chief Complaint: multiple complaints Primary Care Provider: Sabine Mosley DO Patient is 72 y/o F with PMH HTN, HLD, DM II, COPD, paroxysmal atrial fibrillation chronically anticoagulated on Eliquis, chronic diastolic heart failure, RBBB, CVA, kidney stones, bipolar disorder, REENA, morbid obesity presented to ER with multiple medical complaints. History obtained from patient as well as chart review. Limited history obtained from patient secondary to patient's current dyspnea and lethargy. Spoke to daughter on phone who assists in history. Patient reports last week started with urinary symptoms with urinary frequency. Reports having urinary frequency, dysuria. Patient reports gave urine sample Thursday at urology office. Reports she was called in Macrobid for UTI. (No urine studies from this week for review). Patient states started Macrobid today. Today started with left abdominal pain. Had Urine culture 01/05/2023 likely skin edmundo. Patients daughter states patient has had urinary frequency and dysuria for the past month and has been treated for UTI and finished 2 courses of Macrobid. States today started third course of Macrobid. Patient's daughter also states patient has been complaining of some nausea and "gassiness" for the past week that was thought secondary to Ozempic that patient restarted 1 to 2 weeks ago. Patient thinks has had a fever. Daughter is unsure if patient had fevers. Patient states yesterday was with her friend and her friend noted that patient seemed to be short of breath. Patient states she did not feel short of breath at the time. Patient does endorse cough however is unable to further clarify. When asked if this is a chronic cough she states "I have a heart condition". Patient states today she does feel short of breath. States past 2 days has been having increased weakness and lethargy. States chronic BLE edema and does not think it is worse. Denies nausea, vomiting, diarrhea, syncope, CP, palpitations, sore throat, rhinorrhea, rashes. Allergies Allergy/AdvReac Type Severity Reaction Status Date / Time Cephalosporins Allergy Intermediate RASH Verified 01/23/23 21:42 Sulfa (Sulfonamide Allergy Intermediate "Sulfa Verified 01/23/23 21:42 Antibiotics) Drugs = rash" terconazole Allergy Intermediate ITCHING, Verified 01/23/23 21:42 BURNING clarithromycin Allergy Unknown UNKNOWN Verified 01/23/23 21:42 clavulanic acid Allergy Unknown UNKNOWN Verified 01/23/23 21:42 clobetasol Allergy Unknown Unknown Verified 01/23/23 21:42 adhesive AdvReac Mild BAND-AIDS Verified 01/23/23 21:42 = SKIN IRRITATION Home Medications Medication Instructions Recorded Confirmed Type albuterol sulfate 90 mcg/actuation 2 inh inhalation Q4H PRN Shortness 01/23/23 01/23/23 History aerosol inhaler Of Breath Or Wheezing apixaban 5 mg tablet (Eliquis) 5 mg PO BID 01/23/23 01/23/23 History atorvastatin 40 mg tablet 40 mg PO DAILY 01/23/23 01/23/23 History baclofen 10 mg tablet 10 mg PO BID PRN Muscle Pain 01/23/23 01/23/23 History diltiazem HCl 180 mg 180 mg PO DAILY 01/23/23 01/23/23 History capsule,extended release 24 hr famotidine 20 mg tablet 20 mg PO DAILY 01/23/23 01/23/23 History fluconazole 150 mg tablet 150 mg PO ONCE 01/23/23 01/23/23 History hydrocodone 5 mg-acetaminophen 325 1 tab PO Q6 PRN Pain 01/23/23 01/23/23 History mg tablet hydrocortisone acetate 25 mg 25 mg ND BID PRN Hemorrhoids 01/23/23 01/23/23 History rectal suppository insulin aspart U-100 100 unit/mL 20 - 25 unit subcut BIDM 01/23/23 01/23/23 History (3 mL) subcutaneous pen (Novolog FlexPen U-100 Insulin aspart) insulin glargine 100 unit/mL (3 65 unit subcut BID 01/23/23 01/23/23 History mL) subcutaneous pen (Basaglar KwikPen U-100 Insulin) ipratropium bromide 21 mcg (0.03 2 spray intranasal AMHS 01/23/23 01/23/23 History %) nasal spray levalbuterol HCl 0.63 mg/3 mL 0.63 mg inhalation Q4 PRN Wheezing 01/23/23 01/23/23 History solution for nebulization metformin 1,000 mg tablet 1,000 mg PO BID 01/23/23 01/23/23 History metoprolol tartrate 50 mg tablet 75 mg PO BID 01/23/23 01/23/23 History montelukast 10 mg tablet 10 mg PO DAILY 01/23/23 01/23/23 History nitrofurantoin 100 mg PO BID 01/23/23 01/23/23 History monohydrate/macrocrystals 100 mg capsule nystatin 100,000 unit/gram topical 1 applic topical BID 01/23/23 01/23/23 History powder nystatin-triamcinolone 100,000 1 applic topical BID PRN .flare ups 01/23/23 01/23/23 History unit/g-0.1 % topical cream pantoprazole 40 mg tablet,delayed 40 mg PO DAILY 01/23/23 01/23/23 History release semaglutide 2 mg/dose (8 mg/3 mL) 2 mg subcut WK 01/23/23 01/23/23 History subcutaneous pen injector (Ozempic) tamsulosin 0.4 mg capsule 0.4 mg PO HS 01/23/23 01/23/23 History triamcinolone acetonide 0.1 % 1 applic topical BID PRN .flare ups 01/23/23 01/23/23 History topical ointment Past Med/Surg History Medical History (Updated 01/23/23 @ 23:12 by Tor Dinh DO) Anxiety Arthritis Bipolar disorder Chronic diastolic heart failure Chronic sinusitis COPD (chronic obstructive pulmonary disease) follows with [facility] Pulmonary (Dr Kat) Depression Diabetes mellitus, type II IDDM GERD (gastroesophageal reflux disease) H/O: CVA (cerebrovascular accident) 2004 -- no deficits. History of bleeding ulcers History of cardioversion History of pneumococcal septicemia treated at [facility] 2012. HLD (hyperlipidemia) Hypertension Kidney stones Morbid obesity Nephrolithiasis REENA (obstructive sleep apnea) cpap at night Paroxysmal atrial fibrillation follows with Dr. 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 no problems since then. Wound dehiscence 2016 s/p hysterectomy Surgical History H/O: hysterectomy LUCERO with BSO History of bronchoscopy History of cataract surgery bilateral History of colonoscopy History of esophagogastroduodenoscopy (EGD) History of open reduction and internal fixation (ORIF) procedure Left elbow with hardware History of tonsillectomy Hx of nasal septoplasty S/P laparotomy to repair hysterectomy wound dehiscence. S/P tendon repair bicep tendon repair (left) Family History Other Diabetes No family history of adverse response to anesthesia Social History Smoking Status: Former smoker Tobacco Type: Cigarettes Cigarettes Per Day: 40; Second Hand Exposure: No; Do You Dip or Chew Tobacco: No; Tobacco Cessation Education Requested by Patient: No Hx Alcohol Use: No Hx Substance Use: No Preferred Language: Colombian Communication Ability: Effective Academic Guidance Specialist Required: No Beliefs That Will Affect Care: None marital status: Current Living Situation: Spouse Other Information That Helps Us Care for You: No Feels Safe at Home: Yes Safety Concerns: Feels Safe At This Time Assistive Devices: Cane and Walker Review of Systems Review of Systems: All systems reviewed & are unremarkable except as noted in HPI & below Physical Exam Physical Exam: General: + distress, +ill appearing, obese elderly female Head: normocephalic, atraumatic Eyes: conjunctiva non-injected, anicteric ENT: normal inspection external ears, nose, mucous membranes dry Neck: supple, trachea midline Lungs: + Tachypnea, difficult to auscultate lungs secondary to body habitus and current lethargy however appears decreased without noted wheezing or rales CV: +tachycardia rate 116, regular Abd: protuberant, normal BS, soft, + diffuse tenderness to palpation without guarding Ext: BLE +edema bilaterally with erythematous skin changes bilateral lower legs with tenderness to palpation bilateral legs, no cyanosis Neuro: +drowsy and falling asleep while talking, oriented to person, place, month and year, no focal deficits noted Skin: +hot to palpation, dry Results & Data Results & Data Vital Signs (Past 12 Hours) Vital Signs Temp Pulse Pulse Resp BP BP Pulse Ox 01/23/23 19:41 108 H 23 131/79 97 01/23/23 19:00 103 H 01/23/23 18:30 106 H 29 H 162/100 H 96 01/23/23 18:15 102 H 34 H 148/88 H 97 01/23/23 18:00 108 H 30 H 132/91 96 01/23/23 17:45 106 H 31 H 158/97 H 96 01/23/23 17:30 98 H 32 H 163/110 H 97 01/23/23 17:12 106 H 01/23/23 16:41 37.9 C H 101 H 34 H 174/88 H 97 O2 Del Method O2 Flow Rate 01/23/23 19:41 Room Air 01/23/23 19:00 01/23/23 18:30 Nasal Cannula 2 01/23/23 18:15 Nasal Cannula 2 01/23/23 18:00 Nasal Cannula 2 01/23/23 17:45 Nasal Cannula 2 01/23/23 17:30 Nasal Cannula 2 01/23/23 17:12 01/23/23 16:41 Room Air Laboratory Results Short CBC 01/23/23 Range/Units 17:14 WBC 20.15 H (4.8-10.8) K/ul Hgb 12.7 (12.0-16.0) g/dl Hct 40.0 (37.0-47.0) % Plt Count 172 (130-400) K/uL BMP 01/23/23 17:14 Sodium 136 Potassium 4.4 Chloride 102 Carbon Dioxide 23 BUN 15 Creatinine 0.84 Glucose 263 H Calcium 9.4 Liver Function 01/23/23 Range/Units 17:14 Total Bilirubin 0.7 (0.2-1.0) mg/dl Direct Bilirubin 0.2 (0-0.2) mg/dl AST 26 (13-39) U/L ALT 29 (7-52) U/L Alkaline Phosphatase 118 H (34-104) U/L Albumin 4.3 (3.4-5.0) gm/dl Urine 01/23/23 Range/Units 17:10 Urine Color Yellow Urine Appearance Clear (Clear) Urine pH 5.0 (4.5-7.5) Ur Specific [place] 1.009 (1.000-1.030) Urine Protein Negative (Negative) Urine Glucose (UA) Negative (Negative) Diagnostic Findings Chest X-Ray 01/23/23 16:55 SINGLE VIEW CHEST CLINICAL HISTORY: Sepsis. FINDINGS: An AP, portable, upright chest radiograph is compared to study dated 04/04/2022. Correlation is made with chest CT dated 02/14/2021. The heart is enlarged noting atherosclerotic calcification of the thoracic area aorta. There is pulmonary vascular congestion an mild interstitial edema. Emphysema and chronic interstitial thickening is similar to previous. Scarring/atelectasis is seen at the lung bases. No airspace consolidation or large pleural effusion is identified. No pneumothorax is seen. The skeletal structures are osteopenic. The bony thorax is grossly intact. IMPRESSION: 1. Cardiomegaly with evidence of congestive failure and mild pulmonary edema. 2. Emphysema. 3. No airspace consolidation or large pleural effusion is identified. ACT 112: Negative or not required by law. Electronically signed by: Semaj Gonzalez M.D. 01/23/2023 5:31 PM Abdomen/Pelvis CT 01/23/23 18:33 Exam(s): CT ABDOMEN + PELVIS With Contrast IV Amt: 114 ml opti 320 EXAM: CT Abdomen and Pelvis With Intravenous Contrast CLINICAL HISTORY: Reason for exam: fever and pain. TECHNIQUE: Axial computed tomography images of the abdomen and pelvis with intravenous contrast. CTDI is 28.14 mGy and DLP is 1499.82 mGy-cm. Automated exposure control was utilized for the study. A dose lowering technique was utilized adhering to the principles of ALARA. CONTRAST: Patient received 114 ml opti 320 of IV contrast COMPARISON: No relevant prior studies available. FINDINGS: Lung bases: Unremarkable. No mass. No consolidation. ABDOMEN: Liver: Hepatic steatosis. Gallbladder and bile ducts: Unremarkable. No calcified stones. No ductal dilation. Pancreas: Unremarkable. No mass. No ductal dilation. Spleen: Unremarkable. No splenomegaly. Adrenals: Unremarkable. No mass. Kidneys and ureters: Obstructing 6 x 5 mm stone in the RIGHT proximal ureter. Mild fullness of the RIGHT renal collecting system. Nonobstructing 5 mm RIGHT mid pole renal stone. Stomach and bowel: Diverticulosis, without acute diverticulitis. No small bowel obstruction. No free intraperitoneal air. PELVIS: Appendix: No findings to suggest acute appendicitis. Bladder: Decompressed urinary bladder which contains a Miller catheter. Reproductive: Unremarkable as visualized. ABDOMEN and PELVIS: Intraperitoneal space: Unremarkable. No free air. No significant fluid collection. Bones/joints: Degenerative changes of the spine. No acute fracture. No dislocation. Soft tissues: Small fat-containing umbilical hernia. Vasculature: Atherosclerotic changes of the aorta. No abdominal aortic aneurysm. Lymph nodes: Unremarkable. No enlarged lymph nodes. IMPRESSION: 1. Obstructing 6 x 5 mm stone in the RIGHT proximal ureter. Mild fullness of the RIGHT renal collecting system. Nonobstructing 5 mm RIGHT mid pole renal stone. 2. Diverticulosis, without acute diverticulitis. No small bowel obstruction. No free intraperitoneal air. Electronically signed by: Kyler Chaney MD 01/23/23 20:04 PM Chest CTA 01/23/23 18:33 Exam(s): CTA CHEST IV Amt: 114 ml opti 320 EXAM: CT Angiography Chest With Intravenous Contrast CLINICAL HISTORY: Reason for exam: PE. TECHNIQUE: Axial computed tomographic angiography images of the chest with intravenous contrast. CTDI is 28.14 mGy and DLP is 894.74 mGy-cm. Automated exposure control was utilized for the study. A dose lowering technique was utilized adhering to the principles of ALARA. MIP reconstructed images were created and reviewed. COMPARISON: No relevant prior studies available. FINDINGS: Pulmonary arteries: Unremarkable. No acute pulmonary embolism. Aorta: No acute findings. No thoracic aortic aneurysm. Lungs: Atelectasis at the lung bases. No mass. Pleural space: Unremarkable. No significant effusion. No pneumothorax. Heart: Cardiomegaly. No significant pericardial effusion. No evidence of RV dysfunction. Bones/joints: No acute fracture. No dislocation. Soft tissues: Unremarkable. Lymph nodes: Unremarkable. No enlarged lymph nodes. Liver: Hepatic steatosis. IMPRESSION: No acute pulmonary embolism. Electronically signed by: Kyler Chaney MD 01/23/23 19:57 PM Supervising Physician Co-Signing Physician Notes IM ATTENDING : Patient seen and examined. History obtained from patient and records. Preceding documentation by Ms. Kim Roth PA-C reviewed. In addition, patient complaining of headache symptoms. CT head: No acute intracranial hemorrhage, midline shift, or mass effect. FINAL ASSESSMENT AND PLAN as follows : Decompensated heart failure History diastolic dysfunction (EF 55 to 59%, TTE 2020) History noncompliance as per records Severe sepsis SIRS plus lactic acid elevation secondary to partially treated complicated UTI/infected kidney stone causing obstructive uropathy (History of Enterococcus, enteric organisms on previous urine CS) Hematuria secondary to obstructive uropathy hx Eliquis Rx for AF Hemoglobin currently stable hypertension, stable hyperlipidemia on statin Rx history CVA as per records COPD, not in acute exacerbation REENA on CPAP DM2 insulin requiring, suboptimal control as of recent hemoglobin A1c of 9.06 September 2022 mood disorder, stable past tobacco abuse hx MRSA PCU stat neb tx Diuretic Rx once lactic acidosis improved Strict I/Os, daily weights, CHF education Update TTE, Cardiology consult Re: CHF Continue CPAP at bedtime CS, Zosyn Follow-up lactic acid response to IV albumin (Guideline recommended 30 cc/kg IBW fluid bolus administration over 3 hours currently precluded by pulmonary congestion.) Strain urine Urology consult RE obstructive uropathy causing sepsis (ER provider already in touch with Dr. Ventura. ) N.p.o. until patient seen by Urology given potential need for urgent intervention Hold Eliquis for now given gross hematuria. Basal insulin adjusted for n.p.o. status, ISS BG goal [id number], update hemoglobin A1c DVT prophylaxis. SCDs while Eliquis on hold Full code Patient requesting for daughter to be given periodic updates regarding care. Ms. Sarah Gerber, contact #[phone]. Text document was generated using [employer] voice recognition software. It may contain grammatical or spelling errors. Kindly contact undersigned for clarification of any documentation item in question. ADDENDUM 01/24 4 AM Persistent lactic acidosis despite Zosyn Rx 3.3 <- 3.3 <- 3.4 <- 4.3 Change antibiotic regimen to daptomycin and Azactam for now. Recheck lactic acidosis after 4 hours. Hold statin while patient on daptomycin. (8) COPD (chronic obstructive pulmonary disease) COPD type: emphysema Emphysema type: centrilobular Qualified Code(s): J43.2 - Centrilobular emphysema
[2023-01-23] MEDS ORDERED: TAMSULOSIN HCL 0.4 MG CAP PO ONE (20:36)
[2023-01-23] MEDS ORDERED: PIPERACILLIN/TAZOBACTAM 4.5 GM/100 ML BAG IV STA (21:06)
[2023-01-23] MEDS ORDERED: ACETAMINOPHEN 500 MG TAB PO STA (21:30)
--- NOTE | 2023-01-23 22:20 | CT Scan Report ---
Exam(s): CT HEAD Without Contrast EXAM: CT Head Without Intravenous Contrast CLINICAL HISTORY: Reason for exam: mcclendon, ams, eliquis,. TECHNIQUE: Axial computed tomography images of the head/brain without intravenous contrast. CTDI is 36.31 mGy and DLP is 625.8 mGy-cm. Automated exposure control was utilized for the study. A dose lowering technique was utilized adhering to the principles of ALARA. COMPARISON: No relevant prior studies available. FINDINGS: No acute intracranial hemorrhage. No midline shift or mass effect. The territorial khan-white matter differentiation is maintained throughout. Age-related cerebral volume loss. Periventricular and subcortical white matter hypoattenuation, consistent with chronic microangiopathy. The visualized orbits appear grossly unremarkable. The calvarium is intact. The visualized paranasal sinuses and mastoid air cells are grossly clear. IMPRESSION: No acute intracranial hemorrhage, midline shift, or mass effect. Electronically signed by: Kyler Chaney MD 01/23/23 22:19 PM
[2023-01-23] MEDS ORDERED: PROMETHAZINE HCL 12.5 MG in SODIUM CHLORIDE 0.9% 50 ML IV PRN (22:29)
[2023-01-23 23:12] LABS: Base Excess VBG 1.7 mEq/L; HCO3 VBG 27 mmol/L; Oxygen Saturation VBG 63.5 %; PCO2 VBG 42 mmHg (38-50); PO2 VBG 39 mmHg; pH VBG 7.41 (7.36-7.41)
[2023-01-23 23:15] LABS: Hemoglobin 11.6 g/dl (12.0-16.0)
[2023-01-23] MEDS ORDERED: ALBUMIN 25% 25 GM/100 ML VIAL IV STA (23:39)
[2023-01-23] MEDS ORDERED: DEXTROSE 50% 50 ML SYRINGE IV PRN (23:58)
[2023-01-23] MEDS ORDERED: GLUCOSE 40% GEL 15 GM TUBE PO PRN (23:58)
[2023-01-23] MEDS ORDERED: GLUCOSE 10 TAB/TUBE PO PRN (23:58)
[2023-01-23] MEDS ORDERED: GLUCAGON FOR INJ 1 MG VIAL SQ PRN (23:58)
[2023-01-23] MEDS ORDERED: NITROGLYCERIN SL 0.4 MG/TAB TAB SL PRN (23:58)
[2023-01-23] MEDS ORDERED: CARBOHYDRATES FOR HYPOGLYCEMIA PO PRN (23:58)
[2023-01-24] MEDS ORDERED: LANTUS PER UNIT CHARGE SQ SCH (00:15)
[2023-01-24] MEDS ORDERED: LANTUS PER UNIT CHARGE SQ STA (00:24)
[2023-01-24] MEDS: INSULIN ASPART PER UNIT CHARGE SC SCH ×6 (00:57→20:37)
[2023-01-24] MEDS: LIDOCAINE 5% 1 PATCH TD SCH ×2 (01:08→20:41)
[2023-01-24] MEDS ORDERED: PIPERACILLIN/TAZOBACTAM 4.5 GM in DEXTROSE 5% MINI-B 100 ML IV SCH (04:00)
[2023-01-24 04:30] LABS: Hemoglobin 10.6 g/dl (12.0-16.0); Mean Corpuscular Hemoglobin 27.7 pg (25.0-34.0); Mean Corpuscular Volume 83.6 fL (80.0-100.0); Red Blood Count 3.83 M/uL (4.20-5.40); White Blood Count 18.32 K/ul (4.8-10.8)
[2023-01-24] MEDS ORDERED: DIGOXIN 250 MCG in SYRINGE 9 ML IV ONE (04:30)
[2023-01-24] MEDS ORDERED: FUROSEMIDE INJ 20 MG/2 ML VIAL IV ONE (04:30)
[2023-01-24 04:31] LABS: Basophils # (auto) 0.06 K/uL (0.00-0.20); Basophils % (auto) 0.3 %; Immature Granulocytes # (auto) 0.12 K/uL (0.01-0.20); Immature Granulocytes % (auto) 0.7 %; Lymphocytes # (auto) 1.71 K/uL (1.20-3.40); Lymphocytes % (auto) 9.3 %; Mean Corpuscular Hgb Conc 33.1 g/dL (32.0-36.0); Monocytes # (auto) 1.12 K/uL (0.11-0.59); Monocytes % (auto) 6.1 %; Neutrophils # (auto) 15.31 K/uL (1.40-6.50); Neutrophils % (auto) 83.6 %; Platelet Count 150 K/uL (130-400); RDW Coefficient of Variation 17.3 % (11.5-14.5); RDW Standard Deviation 52.5 fL (36.4-46.3)
[2023-01-24 04:47] LABS: BUN Creatinine Ratio 17.6 (10-20); Calcium 9.1 mg/dl (8.6-10.3); Creatinine Clr Calc Pharmacy 84.7 ml/min; Est GFR (African American) 74.1 ml/min; Est GFR (Non-African American) 63.9 ml/min; Magnesium 1.8 mg/dl (1.7-2.4)
[2023-01-24] MEDS: dilTIAZem HCL 180 MG CAPCR PO SCH (05:41)
[2023-01-24] MEDS: DAPTOmycin 550 MG in SYRINGE 0 ML IV SCH (05:41)
[2023-01-24] MEDS: MAGNESIUM SULFATE / D5W 1 GM/100 ML BAG IV SCH ×2 (06:09→08:52)
--- NOTE | 2023-01-24 06:25 | Urology Consultation ---
I have discussed Ms. Mercado's case with Nathaniel Andrade PA-C and agree with the above documentation. Right ureteral stone and markers of urinary tract infection raise concern for possible septic stone. We will plan for cystoscopy, right retrograde pyelogram and right ureteral stent placement. -Edvin Ventura MD. Date of Consultation January 24, 2023 Assessment & Plan (1) Hydronephrosis with renal and ureteral calculous obstruction: The patient has been admitted on the hospitalist service. From a urologic perspective we recommend continuing care as follows: Provide analgesics -provide antiemetics Broad-spectrum antibiotics in form of aztreonam and daptomycin have been initiated. The patient has had blood and urine cultures sent. Culture results should be followed and antibiotics can be further tailored based on these results As there is concern for underlying sepsis from an obstructing kidney stone I have discussed the case with my attending physician Dr. Ventura and are plan will be to take the patient for cystoscopy with possible right ureteral stent placement on 01/24/2023. At the present time the patient is noted to be afebrile and hemodynamically stable Additional recommendations will be forthcoming based on her clinical course as it unfolds History of Present Illness Reason for Consultation: Nephrolithiasis with concern for sepsis Attending Physician: Gonzalo Cleary MD History of Present Illness This is a 72-year-old female who presented to the emergency department at [facility] on 01/23/2023 secondary to generalized weakness and some difficulty breathing. The patient also has noted dysuria and urinary frequency for approximately 1 month. Patient notes that she was recently started on antibiotic for urinary tract infection and since this time has had more difficulty breathing. She specifically denies any chest pain. In addition, the patient reports some right-sided flank pain with some radiation into her abdomen. She has had nausea without vomiting. The patient says that she has felt feverish but has not checked her temperature. The patient does note that she has had kidney stones in the past and has required cystoscopy. Her most recent urologic procedure was in March 2022 where patient underwent a laser destruction of a kidney stone on the right-hand side. Since arrival to the hospital the patient has had labs and imaging which independent reviewed. The patient did have a chest x-ray that showed no evidence of pneumonia. Patient did have some cardiomegaly with evidence of congestive change. A CT scan of the chest showed no evidence of acute pulmonary embolism. CT scan of the head showed no acute intracranial findings. A CT scan of the abdomen pelvis showed the patient had an obstructing 6 x 5 mm kidney stone in the right proximal ureter. Labs include a CBC her white blood cell count was elevated 18.3. Hemoglobin and hematocrit were 10.6 and 32.0. Platelet count was normal. Coagulation studies were noted to be normal. Chemistry profile showed sodium was 133 with a normal potassium. BUN and creatinine were both normal. The patient did have an elevated lactic acid level which peaked at approximately 4.1 but on repeat levels was noted to be 3.3. A urinalysis was not indicative of infection. The patient did have a bio fire checked which was negative for all viruses tested. At the time of my interview the patient was resting comfortably in bed and she was no distress. I did discuss with the nurse attending the patient and the patient has had a low-grade temperature since arrival to the unit. She has not had any episodes of hypotension but she is having episodes of tachycardia. Allergies Allergy/AdvReac Type Severity Reaction Status Date / Time Cephalosporins Allergy Intermediate RASH Verified 01/23/23 21:42 Sulfa (Sulfonamide Allergy Intermediate "Sulfa Verified 01/23/23 21:42 Antibiotics) Drugs = rash" terconazole Allergy Intermediate ITCHING, Verified 01/23/23 21:42 BURNING clarithromycin Allergy Unknown UNKNOWN Verified 01/23/23 21:42 clavulanic acid Allergy Unknown UNKNOWN Verified 01/23/23 21:42 clobetasol Allergy Unknown Unknown Verified 01/23/23 21:42 adhesive AdvReac Mild BAND-AIDS Verified 01/23/23 21:42 = SKIN IRRITATION Home Medications Medication Instructions Recorded Confirmed Type albuterol sulfate 90 mcg/actuation 2 inh inhalation Q4H PRN Shortness 01/23/23 01/23/23 History aerosol inhaler Of Breath Or Wheezing apixaban 5 mg tablet (Eliquis) 5 mg PO BID 01/23/23 01/23/23 History atorvastatin 40 mg tablet 40 mg PO DAILY 01/23/23 01/23/23 History baclofen 10 mg tablet 10 mg PO BID PRN Muscle Pain 01/23/23 01/23/23 History diltiazem HCl 180 mg 180 mg PO DAILY 01/23/23 01/23/23 History capsule,extended release 24 hr famotidine 20 mg tablet 20 mg PO DAILY 01/23/23 01/23/23 History fluconazole 150 mg tablet 150 mg PO ONCE 01/23/23 01/23/23 History hydrocodone 5 mg-acetaminophen 325 1 tab PO Q6 PRN Pain 01/23/23 01/23/23 History mg tablet hydrocortisone acetate 25 mg 25 mg DC BID PRN Hemorrhoids 01/23/23 01/23/23 History rectal suppository insulin aspart U-100 100 unit/mL 20 - 25 unit subcut BIDM 01/23/23 01/23/23 History (3 mL) subcutaneous pen (Novolog FlexPen U-100 Insulin aspart) insulin glargine 100 unit/mL (3 65 unit subcut BID 01/23/23 01/23/23 History mL) subcutaneous pen (Basaglar KwikPen U-100 Insulin) ipratropium bromide 21 mcg (0.03 2 spray intranasal AMHS 01/23/23 01/23/23 History %) nasal spray levalbuterol HCl 0.63 mg/3 mL 0.63 mg inhalation Q4 PRN Wheezing 01/23/23 01/23/23 History solution for nebulization metformin 1,000 mg tablet 1,000 mg PO BID 01/23/23 01/23/23 History metoprolol tartrate 50 mg tablet 75 mg PO BID 01/23/23 01/23/23 History montelukast 10 mg tablet 10 mg PO DAILY 01/23/23 01/23/23 History nitrofurantoin 100 mg PO BID 01/23/23 01/23/23 History monohydrate/macrocrystals 100 mg capsule nystatin 100,000 unit/gram topical 1 applic topical BID 01/23/23 01/23/23 History powder nystatin-triamcinolone 100,000 1 applic topical BID PRN .flare ups 01/23/23 01/23/23 History unit/g-0.1 % topical cream pantoprazole 40 mg tablet,delayed 40 mg PO DAILY 01/23/23 01/23/23 History release semaglutide 2 mg/dose (8 mg/3 mL) 2 mg subcut WK 01/23/23 01/23/23 History subcutaneous pen injector (Ozempic) tamsulosin 0.4 mg capsule 0.4 mg PO HS 01/23/23 01/23/23 History triamcinolone acetonide 0.1 % 1 applic topical BID PRN .flare ups 01/23/23 01/23/23 History topical ointment Patient History Medical History Anxiety Arthritis Bipolar disorder Chronic diastolic heart failure Chronic sinusitis COPD (chronic obstructive pulmonary disease) follows with [facility] (Dr Kat) Depression Diabetes mellitus, type II IDDM GERD (gastroesophageal reflux disease) H/O: CVA (cerebrovascular accident) 2004 -- no deficits. History of bleeding ulcers History of cardioversion History of pneumococcal septicemia treated at [facility] 2012. HLD (hyperlipidemia) Hypertension Kidney stones Morbid obesity Nephrolithiasis REENA (obstructive sleep apnea) cpap at night Paroxysmal atrial fibrillation follows with Dr. 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 no problems since then. Wound dehiscence 2015 s/p hysterectomy Surgical History H/O: hysterectomy LUCERO with BSO History of bronchoscopy History of cataract surgery bilateral History of colonoscopy History of esophagogastroduodenoscopy (EGD) History of open reduction and internal fixation (ORIF) procedure Left elbow with hardware History of tonsillectomy Hx of nasal septoplasty S/P laparotomy to repair hysterectomy wound dehiscence. S/P tendon repair bicep tendon repair (left) Family History Other Diabetes No family history of adverse response to anesthesia Social History Smoking Status: Former smoker Tobacco Type: Cigarettes Cigarettes Per Day: 40; Second Hand Exposure: No; Do You Dip or Chew Tobacco: No; Tobacco Cessation Education Requested by Patient: No Hx Alcohol Use: No Hx Substance Use: No Preferred Language: Yoruba Communication Ability: Effective Production Expert Required: No Beliefs That Will Affect Care: None marital status: Current Living Situation: Spouse Other Information That Helps Us Care for You: No Feels Safe at Home: Yes Safety Concerns: Feels Safe At This Time Assistive Devices: Cane and Walker Review of Systems Constitutional: + fever; no chills Ear, Nose, Mouth, Throat: no ear pain Respiratory: + dyspnea Cardiovascular: no chest pain Gastrointestinal: + abdominal pain (Radiating from right flank) and + nausea; no vomiting Genitourinary: as per Subjective / HPI Musculoskeletal: + back pain (Right flank) Integumentary: no rash Neurologic: no localized weakness Physical Exam Constitutional: WD/WN, vitals as above Eyes: no conjunctival abnormality ENMT: Ears: no hearing impairment and no external ear abnormality Neck: trachea midline Respiratory: normal respiratory effort; no respiratory distress and no labored breathing Breath sounds are decreased at bases Cardiovascular: Rate/Rhythm: regular rate, regular rhythm and + tachycardic Gastrointestinal (Abdomen): Abdomen is rotund but soft. It is nonrigid. There is some pain with palpation in the right lower quadrant of her abdomen Musculoskeletal: No calf tenderness Skin: no rashes Neurologic: moves all extremities Psychiatric: A+Ox3, euthymic affect Results & Data Vital Signs (Past 12 Hours) Vital Signs Temp Pulse Pulse Resp BP BP Pulse Ox 01/24/23 06:05 36.9 C 98 H 22 115/64 01/24/23 02:59 126 H 25 H 94 01/23/23 23:45 36.9 C 112 H 20 119/74 96 01/23/23 23:58 36.9 C 112 H 20 119/74 96 01/23/23 23:58 01/24/23 00:00 01/24/23 00:41 01/23/23 20:45 115 H 01/23/23 19:41 108 H 23 131/79 97 01/23/23 19:00 103 H 01/23/23 18:30 106 H 29 H 162/100 H 96 Pulse Ox O2 Del Method O2 Del Method O2 Flow Rate O2 Flow Rate 01/24/23 06:05 CPAP 01/24/23 02:59 3 01/23/23 23:45 Nasal Cannula 2 01/23/23 23:58 Nasal Cannula 2 01/23/23 23:58 96 Nasal Cannula 2 01/24/23 00:00 96 Nasal Cannula 2 01/24/23 00:41 Nasal Cannula 2 01/23/23 20:45 01/23/23 19:41 Room Air 01/23/23 19:00 01/23/23 18:30 Nasal Cannula 2 PG Care Time/CCT Total # of Minutes Spent Total Time Spent with Patient: Total time spent is greater than 50% in coordination of care (as documented) at patient's floor/unit and/or counseling patient: Coding Level of Care Code 78939 INT INP/OBS CARE MIN Diagnoses Hydronephrosis with renal and ureteral calculous obstruction N13.2
[2023-01-24] MEDS: ALBUMIN 25% 25 GM/100 ML VIAL IV SCH ×3 (06:28→20:55)
[2023-01-24] MEDS: ACETAMINOPHEN 500 MG TAB PO PRN ×2 (07:18→23:50)
--- NOTE | 2023-01-24 07:31 | Electrocardiogram Report ---
Test Reason : Blood Pressure : / mmHG Vent. Rate : 102 BPM Atrial Rate : 000 BPM P-R Int : 000 ms QRS Dur : 120 ms QT Int : 346 ms P-R-T Axes : 000 007 -03 degrees QTc Int : 450 ms Atrial fibrillation with rapid ventricular response Low voltage QRS Right bundle branch block Abnormal ECG When compared with ECG of 09-MAY-2022 14:57, No significant change was found Confirmed by Dev Matos ([id number]) on 01/24/2023 7:31:36 AM Referred By: REFERRED SELF Confirmed By:Dev Matos
[2023-01-24] MEDS ORDERED: ALBUMIN 25% 25 GM/100 ML VIAL IV SCH (08:00)
[2023-01-24 08:07] LABS: Estimated Average Glucose 197 mg/dl; Hemoglobin A1C 8.5 % (4.5-5.6)
[2023-01-24] MEDS ORDERED: PROPOFOL IV EMULSION 10 MG/ML 20 ML VIAL IV ONE ×2 (08:47→10:10)
[2023-01-24] MEDS ORDERED: DEXAMETHASONE SOD INJ 4 MG/ML VIAL ONE (08:47)
[2023-01-24] MEDS ORDERED: ONDANSETRON INJ 2 MG/ML 2 ML VIAL ONE (08:47)
[2023-01-24] MEDS ORDERED: LIDOCAINE 2% 2 ML VIAL/AMP(20MG/ML) INFIL ONE (08:47)
[2023-01-24] MEDS: THIAMINE HCL 100 MG TAB PO SCH (08:52)
[2023-01-24] MEDS: METOPROLOL TARTRATE 25 MG TAB PO SCH ×2 (08:52→20:42)
[2023-01-24] MEDS: FAMOTIDINE 20 MG TAB PO SCH (08:53)
[2023-01-24] MEDS: PANTOprazole 40 MG TAB PO SCH (08:54)
[2023-01-24] MEDS ORDERED: dilTIAZem HCL 180 MG CAPCR PO SCH (09:00)
[2023-01-24] MEDS ORDERED: ePHEDrine sulfate 50 MG/ML AMP IV PRN (09:41)
[2023-01-24] MEDS ORDERED: ONDANSETRON INJ 2 MG/ML 2 ML VIAL IV PRN (09:41)
[2023-01-24] MEDS ORDERED: ATROPINE SULFATE 0.1 MG/ML 10ML SYR IV PRN (09:41)
--- NOTE | 2023-01-24 09:41 | Anesthesiology Consultation ---
Date of Service January 24, 2023 Assessment & Plan Chart Review Chart Review: Acceptable Risk for Surgery and Patient NOT seen in Pre Admission Testing Consults Requested none ASA ASA4 Proposed Anesthesia Anesthesia Type: MAC Risk / Benefits Reviewed With: PT / POA / Parent / Guardian, Accepts Plan and Informed Consent Obtained Additional Comments: Patient presented yesterday with shortness of breath, found to be septic with infected kidney stone. Patient in a-fib with RVR. TTE done for concern for decompensated HF given sob and leg swelling. TTE preliminarily read by Dr. Brown from cardiology who states preserved EF 55-60% without valvular abnormality. Final report pending. Patient takes ozempic but has not had it in several weeks. BP stable HR slightly elevated 100-120. hx of REENA and COPD. Patient requests breathig treatment prior to procedure. Will proceed with MAC anesthesia. History Surgery Operation Date: 01/24/23 09:30 Proposed Procedures p Cystoscopy Retrograde - Edvin Ventura MD Height/Weight Height: 5 ft 5 in Weight: 147.6 kg Allergies Allergy/AdvReac Type Severity Reaction Status Date / Time Cephalosporins Allergy Intermediate RASH Verified 01/23/23 21:42 Sulfa (Sulfonamide Allergy Intermediate "Sulfa Verified 01/23/23 21:42 Antibiotics) Drugs = rash" terconazole Allergy Intermediate ITCHING, Verified 01/23/23 21:42 BURNING clarithromycin Allergy Unknown UNKNOWN Verified 01/23/23 21:42 clavulanic acid Allergy Unknown UNKNOWN Verified 01/23/23 21:42 clobetasol Allergy Unknown Unknown Verified 01/23/23 21:42 adhesive AdvReac Mild BAND-AIDS Verified 01/23/23 21:42 = SKIN IRRITATION Medications Home Medications Medication Instructions Recorded Confirmed Last Taken albuterol sulfate 90 mcg/actuation 2 inh inhalation Q4H PRN Shortness 01/23/23 01/23/23 01/23/23 aerosol inhaler Of Breath Or Wheezing apixaban 5 mg tablet (Eliquis) 5 mg PO BID 01/23/23 01/23/23 01/23/23 11:00 atorvastatin 40 mg tablet 40 mg PO DAILY 01/23/23 01/23/23 Unknown baclofen 10 mg tablet 10 mg PO BID PRN Muscle Pain 01/23/23 01/23/23 Unknown diltiazem HCl 180 mg 180 mg PO DAILY 01/23/23 01/23/23 Unknown capsule,extended release 24 hr famotidine 20 mg tablet 20 mg PO DAILY 01/23/23 01/23/23 Unknown fluconazole 150 mg tablet 150 mg PO ONCE 01/23/23 01/23/23 Unknown hydrocodone 5 mg-acetaminophen 325 1 tab PO Q6 PRN Pain 01/23/23 01/23/23 Unknown mg tablet hydrocortisone acetate 25 mg 25 mg [place] BID PRN Hemorrhoids 01/23/23 01/23/23 Unknown rectal suppository insulin aspart U-100 100 unit/mL 20 - 25 unit subcut BIDM 01/23/23 01/23/23 01/23/23 11:00 (3 mL) subcutaneous pen (Novolog FlexPen U-100 Insulin aspart) insulin glargine 100 unit/mL (3 65 unit subcut BID 01/23/23 01/23/23 01/23/23 11:00 mL) subcutaneous pen (Basaglar KwikPen U-100 Insulin) ipratropium bromide 21 mcg (0.03 2 spray intranasal AMHS 01/23/23 01/23/23 Unknown %) nasal spray levalbuterol HCl 0.63 mg/3 mL 0.63 mg inhalation Q4 PRN Wheezing 01/23/23 01/23/23 Unknown solution for nebulization metformin 1,000 mg tablet 1,000 mg PO BID 01/23/23 01/23/23 Unknown metoprolol tartrate 50 mg tablet 75 mg PO BID 01/23/23 01/23/23 Unknown montelukast 10 mg tablet 10 mg PO DAILY 01/23/23 01/23/23 Unknown nitrofurantoin 100 mg PO BID 01/23/23 01/23/23 01/23/23 monohydrate/macrocrystals 100 mg capsule nystatin 100,000 unit/gram topical 1 applic topical BID 01/23/23 01/23/23 Unknown powder nystatin-triamcinolone 100,000 1 applic topical BID PRN .flare ups 01/23/23 01/23/23 Unknown unit/g-0.1 % topical cream pantoprazole 40 mg tablet,delayed 40 mg PO DAILY 01/23/23 01/23/23 Unknown release semaglutide 2 mg/dose (8 mg/3 mL) 2 mg subcut WK 01/23/23 01/23/23 01/14/23 subcutaneous pen injector (Emprivo) tamsulosin 0.4 mg capsule 0.4 mg PO HS 01/23/23 01/23/23 Unknown triamcinolone acetonide 0.1 % 1 applic topical BID PRN .flare ups 01/23/23 01/23/23 Unknown topical ointment Active Medications Generic Name Dose Route Start Last Admin Trade Name Freq PRN Reason Stop Dose Admin Acetaminophen 500 mg 01/23/23 22:29 01/24/23 07:18 Acetaminophen 500 Mg Tab PO 02/22/23 22:28 500 mg Q6H PRN Administration fever/pain Diltiazem HCl 180 mg 01/24/23 04:30 01/24/23 05:41 Diltiazem Hcl 180 Mg Capcr PO 02/23/23 04:29 180 mg DAILY GARIMA Administration Famotidine 20 mg 01/24/23 09:00 01/24/23 08:53 Famotidine 20 Mg Tab PO 02/23/23 08:59 20 mg DAILY GARIMA Administration Daptomycin 550 mg/ Syringe 11 mls @ 5.5 mls/min 01/24/23 05:00 01/24/23 05:41 IV 02/03/23 04:59 5.5 mls/min Q24H GARIMA Administration Protocol Albumin Human 25 gm in 100 mls @ 50 mls/hr 01/24/23 06:05 01/24/23 06:28 Albumin 25% IV 01/25/23 06:04 50 mls/hr Q8H GARIMA Administration Insulin Aspart 0 units 01/24/23 00:15 01/24/23 06:20 Insulin Aspart Per Unit Charge SC 02/23/23 00:14 3 units Q6 GARIMA Administration Lidocaine 1 patch 01/24/23 00:45 01/24/23 01:08 Lidocaine 5% 1 Patch TD 02/23/23 00:44 1 patch HS GARIMA Administration Metoprolol Tartrate 75 mg 01/24/23 09:00 01/24/23 08:52 Metoprolol Tartrate 25 Mg Tab PO 02/23/23 08:59 75 mg BID GARIMA Administration Pantoprazole Sodium 40 mg 01/24/23 09:00 01/24/23 08:54 Pantoprazole 40 Mg Tab PO 02/23/23 08:59 40 mg DAILY GARIMA Administration Thiamine HCl 100 mg 01/24/23 09:00 01/24/23 08:52 Thiamine Hcl 100 Mg Tab PO 01/30/23 09:01 100 mg QAM GARIMA Administration Past Medical History Medical History Anxiety Arthritis Bipolar disorder Chronic diastolic heart failure Chronic sinusitis COPD (chronic obstructive pulmonary disease) follows [facility] (Dr Kat) Depression Diabetes mellitus, type II IDDM GERD (gastroesophageal reflux disease) H/O: CVA (cerebrovascular accident) 2004 -- no deficits. History of bleeding ulcers History of cardioversion History of pneumococcal septicemia treated at [facility] 2012. HLD (hyperlipidemia) Hypertension Kidney stones Morbid obesity Nephrolithiasis REENA (obstructive sleep apnea) cpap at night Paroxysmal atrial fibrillation follows with Dr. 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 no problems since then. Wound dehiscence 2015 s/p hysterectomy Past Family History Family History Other Diabetes No family history of adverse response to anesthesia Past Surgical History Surgical History H/O: hysterectomy LUCERO with BSO History of bronchoscopy History of cataract surgery bilateral History of colonoscopy History of esophagogastroduodenoscopy (EGD) History of open reduction and internal fixation (ORIF) procedure Left elbow with hardware History of tonsillectomy Hx of nasal septoplasty S/P laparotomy to repair hysterectomy wound dehiscence. S/P tendon repair bicep tendon repair (left) Past Anesthesia History No Hx of Anesthesia Complications and No Family Hx of Anesthesia Complications Social History Smoking Status: Former smoker tobacco type: cigarettes Smoking cigarettes per day: 40 Do You Dip or Chew Tobacco: No Hx Alcohol Use: No Hx Substance Use: No Review of Systems ROS Unobtainable: All systems reviewed & are unremarkable except as noted in HPI & below Physical Exam Vital Signs Last Vital Signs Temp 37.6 C H 01/24/23 07:00 Pulse 106 H 01/24/23 07:00 Resp 18 01/24/23 07:00 BP 139/76 01/24/23 07:00 Pulse Ox 94 01/24/23 07:00 O2 Del Method Nasal Cannula, CPAP 01/24/23 07:42 O2 Flow Rate 2 01/24/23 07:42 Constitutional + morbidly obese; no acute distress ENMT Mouth: no TMJ abnormality Thyromental Distance: > or= 3.5 Finger Breadths Mallampati Class: III Neck normal visual inspection and trachea midline; neck extension not limited Respiratory normal respiratory effort Auscultation: lungs clear to auscultation bilaterally Cardiovascular Rate/Rhythm: regular rate and regular rhythm Heart Sounds: no murmur Musculoskeletal Spine: normal cervical ROM Extremities: full ROM of extremities Neurologic moves all extremities Psychiatric Orientation: alert and oriented x 3 Testing Laboratory Results 01/24/23 03:34 01/24/23 03:34 PT 10.8 Seconds (9.0-12.0) 01/23/23 17:14 INR 1.0 (0.9-1.1) 01/23/23 17:14 APTT 29.3 Seconds (21.0-31.0) 01/23/23 17:14 Hemoglobin A1c 8.5 % (4.5-5.6) H 01/23/23 17:14 Urine Color Yellow 01/23/23 17:10 Urine Appearance Clear (Clear) 01/23/23 17:10 Urine pH 5.0 (4.5-7.5) 01/23/23 17:10 Ur Specific [place] 1.009 (1.000-1.030) 01/23/23 17:10 Urine Protein Negative (Negative) 01/23/23 17:10 Urine Glucose (UA) Negative (Negative) 01/23/23 17:10 Urine Ketones Negative (Negative) 01/23/23 17:10 Urine Nitrite Negative (Negative) 01/23/23 17:10 Ur Leukocyte Esterase Negative (Negative) 01/23/23 17:10 Urine WBC (Auto) 0 /hpf (0-5) 01/23/23 17:10 Urine RBC (Auto) 0-4 /hpf (0-4) 01/23/23 17:10 U Hyaline Cast (Auto) 0 /lpf (0-5) 01/23/23 17:10 U Epithel Cells (Auto) 0-5 /lpf (0-5) 01/23/23 17:10 Urine Bacteria (Auto) Negative (Negative) 01/23/23 17:10 Blood Type O Positive 10/20/23 22:46 Antibody Screen NEGATIVE 01/23/23 22:46 01/24/23 01/23/23 06:18 23:44 POC Glucose 210 H 192 H Electrocardiogram Date: 01/23/23 Findings: + AFIB @ (with RVR)
[2023-01-24] MEDS ORDERED: fentaNYL citrate PF 100 MCG/2 ML VIAL ONE (09:47)
[2023-01-24] MEDS ORDERED: ALBUT/IPRATROP 3MG/0.5MG NEB 3 ML VIAL INH STA (10:00)
--- NOTE | 2023-01-24 10:15 | Operative Report ---
PG Post Operative Report Pre & Post Diagnosis Operation Date: 01/24/23 09:30 Pre-Op Diagnosis: Hydronephrosis with renal and right ureteral calculous obstruction Post-Op Diagnosis: Hydronephrosis with renal and right ureteral calculous obstruction I identified the patient and participated in the time-out.: Yes Procedure Operation Date: 01/24/23 09:30 Actual Procedures p Cystoscopy, right Retrograde pyelogrom, right ureteral stent insertion(Right) - Edvin Ventura MD Surgeon Edvin Ventura MD Licensed Practical Vocational Nurse None Estimated Blood Loss 0 Findings Consistent with Post-Op Diagnosis Specimens None Drains 6 Venezuelan by 24 cm double-J ureteral stent in the right ureter 16 Venezuelan Miller catheter per urethra 10 cc in balloon Anesthesia Type MAC Complications none Disposition Accompanied Patient To Recovery: Yes Disposition: Recovery Room Indications This is a 72-year-old female found to have signs of urinary tract infection and a right ureteral stone on CT scan. She is being brought to the OR for right ureteral stent placement. Description of Procedure The patient was identified in the holding area and informed consent was confirmed. She was marked on the right side, then was taken to the operating room where anesthesia was initiated. She was placed in the dorsal lithotomy position with all pressure points appropriately padded. She was prepped and draped in the usual sterile fashion and a preoperative timeout was performed. A well-lubricated cystoscope was inserted per urethra and panendoscopy was p erformed. The urethra was normal in appearance. The bladder was of normal size with ureteral orifices in orthotopic position. The right ureteral orifice was identified and cannulated with a 5 [place]an open- ended catheter. A retrograde pyelogram was performed to outline the contour of the ureter and the kidney. There was mild hydronephrosis of the kidney. A 0.038" ZIPwire was advanced to the level of the kidney under fluoroscopic guidance. Over the wire, a 6 Venezuelan x 24 centimeter double-J ureteral stent was advanced. When the wire was removed, the proximal curl was visualized in the kidney with x-ray, and the distal curl visualized in the bladder with the cystoscope. At this point all instrumentation was removed. A 16 [place] Miller catheter was advanced per urethra. Once in position, the balloon was inflated with 10 mL normal saline and the catheter was attached to gravity drainage. The patient was then awakened from anesthesia and was brought to the PACU in stable condition. I attest to the content of the Intraoperative Record and any orders documented therein. Any exceptions are noted below.
[2023-01-24] MEDS ORDERED: DIATRIZOATE MEGLUMINE 30% 100ML VIAL INSTIL SCH (10:30)
[2023-01-24] MEDS ORDERED: DIATRIZOATE MEGLUMINE 30% 100ML VIAL INSTIL ONE ×2 (10:31→10:33)
[2023-01-24] MEDS: fentaNYL citrate PF 100 MCG/2 ML VIAL IV PRN ×3 (10:35→11:03)
--- NOTE | 2023-01-24 11:05 | Fluoroscopy Report ---
FL retrograde includes kub CLINICAL HISTORY: RT SIDE RETROGRADE COMPARISON STUDY: CT of the abdomen and pelvis January 23, 2023. FLUOROSCOPY TIME: 8 seconds. Ka, r: 7.93 mGy FLUOROSCOPIC IMAGES: 1 FINDINGS: Fluoroscopy was provided during right retrograde exam with right ureteral stent placement. Proximal aspect of the stent projects over the right renal pelvis. IMPRESSION: Fluoroscopy provided during right retrograde exam with right ureteral stent placement. ACT 112: Negative or not required by law. Electronically signed by: Hola Méndez M.D. 01/24/2023 11:03 AM
--- NOTE | 2023-01-24 11:10 | Anesthesiology Progress Note ---
Date of Service January 24, 2023 Anesthesia Post Procedure Vital Signs Vital Signs: Temp Pulse Pulse Resp BP BP Pulse Ox 01/24/23 11:00 84 20 125/55 L 93 01/24/23 10:50 86 22 98/60 L 93 01/24/23 10:40 91 H 22 98/58 L 93 01/24/23 10:30 37.4 C 82 25 H 101/52 L 96 01/24/23 10:22 36.8 C 88 25 H 97/51 L 93 01/24/23 07:42 01/24/23 07:00 37.6 C H 106 H 18 139/76 94 01/24/23 06:05 36.9 C 98 H 22 115/64 01/24/23 02:59 126 H 25 H 94 01/23/23 23:45 36.9 C 112 H 20 119/74 96 01/23/23 23:58 36.9 C 112 H 20 119/74 96 01/23/23 23:58 01/24/23 00:00 01/24/23 00:41 01/23/23 20:45 115 H 01/23/23 19:41 108 H 23 131/79 97 01/23/23 19:00 103 H 01/23/23 18:30 106 H 29 H 162/100 H 96 01/23/23 18:15 102 H 34 H 148/88 H 97 01/23/23 18:00 108 H 30 H 132/91 96 01/23/23 17:45 106 H 31 H 158/97 H 96 01/23/23 17:30 98 H 32 H 163/110 H 97 01/23/23 17:12 106 H 01/23/23 16:41 37.9 C H 101 H 34 H 174/88 H 97 Pulse Ox O2 Del Method O2 Del Method O2 Flow Rate O2 Flow Rate 01/24/23 11:00 Oxymask 4 01/24/23 10:50 Oxymask 4 01/24/23 10:40 Oxymask 4 01/24/23 10:30 Oxymask 4 01/24/23 10:22 Oxymask 6 01/24/23 07:42 Nasal Cannula, CPAP 2 01/24/23 07:00 CPAP 01/24/23 06:05 CPAP 01/24/23 02:59 3 01/23/23 23:45 Nasal Cannula 2 01/23/23 23:58 Nasal Cannula 2 01/23/23 23:58 96 Nasal Cannula 2 01/24/23 00:00 96 Nasal Cannula 2 01/24/23 00:41 Nasal Cannula 2 01/23/23 20:45 01/23/23 19:41 Room Air 01/23/23 19:00 01/23/23 18:30 Nasal Cannula 2 01/23/23 18:15 Nasal Cannula 2 01/23/23 18:00 Nasal Cannula 2 01/23/23 17:45 Nasal Cannula 2 01/23/23 17:30 Nasal Cannula 2 01/23/23 17:12 01/23/23 16:41 Room Air Pain Intensity Bilateral Leg: Pain Intensity: 5 Transfer of Care Handoff Completed per policy Notes Mental Status: alert / awake / arousable Patient Amnestic to Procedure: Yes Nausea / Vomiting: adequately controlled Pain: adequately controlled Airway Patency, RR, SpO2: stable & adequate BP & HR: stable & adequate Hydration State: stable & adequate Anesthetic Complications: no major complications apparent and Pt Satisfied with anesthetic care
[2023-01-24] MEDS: AZTREONAM 2,000 MG in DEXTROSE 5% MINI-B 100 ML IV SCH ×2 (11:56→20:02)
[2023-01-24] MEDS: IPRATROPIUM BROMIDE NASAL SPRAY 0.06% 15ML NAE SCH ×2 (12:05→20:40)
[2023-01-24] MEDS: MONTELUKAST SODIUM 10 MG TABLET PO SCH (12:07)
[2023-01-24] MEDS: LANTUS PER UNIT CHARGE SQ SCH ×2 (12:29→20:39)
[2023-01-24] MEDS: traMADol HCL 50 MG TABLET PO PRN ×3 (13:29→21:57)
[2023-01-24] MEDS ORDERED: oxyCODONE/ACETAMINOPHEN 5mg/325mg TAB PO PRN (13:49)
[2023-01-24] MEDS: HYDROCODONE/ACETAMOPHEN 5/325MG TAB PO PRN ×2 (13:58→19:56)
--- NOTE | 2023-01-24 14:04 | Cardiology Consultation ---
Date of Consultation January 24, 2023 Assessment & Plan (1) Acute heart failure with preserved ejection fraction (HFpEF): Plan This is a 72 year old female with a pmhx of HFpEF, morbid obesity, COPD, CVA, who was admitted for urinary symptoms and found to have sepsis 2/2 a complicated UTI/infected kidney stone now s/p stent. She also was found to have acute on chronic decompensated HFpEF. 1. Acute Exacerbation of HFpEF -she has chronic volume overloaded 2/2 non-compliance and acutely complicated by sepsis -recommend dose of 80mg IV lasix x 1 and follow up urine output -goal net negative I/O of 2L or more daily -No change in LV function as per recent TTE 2. Afib with RVR -improved HR -continue to treat underlying sepsis -continue beta patsy and CCB for now. I provided 40 min of time to direct patient care including physical examination, review of the chart, and counseling the patient in regards to acute exacerbation of HFpEF. Ham Bauman MD History of Present Illness Reason for Consultation: Acute exacerbation of HFpEF Attending Physician: Gonzalo Cleary MD History of Present Illness This is a 72 year old female with a pmhx of HFpEF, morbid obesity, COPD, CVA, who was admitted for urinary symptoms and found to have sepsis 2/2 a complicated UTI/infected kidney stone now s/p stent. She also was found to have acute on chronic decompensated HFpEF. She is currently out of the OR and tells us that she "feels fine," other than some "back pain." She does have some b/l lower ext remity edema that she admits is likely due to her non-compliance with her home diuretic dose. She denies chest pain. No N/V/ESPITIA; afebrile. No PND or orthopnea. She does have some mild shortness of breath at rest. Allergies Allergy/AdvReac Type Severity Reaction Status Date / Time Cephalosporins Allergy Intermediate RASH Verified 01/23/23 21:42 Sulfa (Sulfonamide Allergy Intermediate "Sulfa Verified 01/23/23 21:42 Antibiotics) Drugs = rash" terconazole Allergy Intermediate ITCHING, Verified 01/23/23 21:42 BURNING clarithromycin Allergy Unknown UNKNOWN Verified 01/23/23 21:42 clavulanic acid Allergy Unknown UNKNOWN Verified 01/23/23 21:42 clobetasol Allergy Unknown Unknown Verified 01/23/23 21:42 adhesive AdvReac Mild BAND-AIDS Verified 01/23/23 21:42 = SKIN IRRITATION Home Medications Medication Instructions Recorded Confirmed Type albuterol sulfate 90 mcg/actuation 2 inh inhalation Q4H PRN Shortness 01/23/23 01/23/23 History aerosol inhaler Of Breath Or Wheezing apixaban 5 mg tablet (Eliquis) 5 mg PO BID 01/23/23 01/23/23 History atorvastatin 40 mg tablet 40 mg PO DAILY 01/23/23 01/23/23 History baclofen 10 mg tablet 10 mg PO BID PRN Muscle Pain 01/23/23 01/23/23 History diltiazem HCl 180 mg 180 mg PO DAILY 01/23/23 01/23/23 History capsule,extended release 24 hr famotidine 20 mg tablet 20 mg PO DAILY 01/23/23 01/23/23 History fluconazole 150 mg tablet 150 mg PO ONCE 01/23/23 01/23/23 History hydrocodone 5 mg-acetaminophen 325 1 tab PO Q6 PRN Pain 01/23/23 01/23/23 History mg tablet hydrocortisone acetate 25 mg 25 mg SD BID PRN Hemorrhoids 01/23/23 01/23/23 History rectal suppository insulin aspart U-100 100 unit/mL 20 - 25 unit subcut BIDM 01/23/23 01/23/23 History (3 mL) subcutaneous pen (Novolog FlexPen U-100 Insulin aspart) insulin glargine 100 unit/mL (3 65 unit subcut BID 01/23/23 01/23/23 History mL) subcutaneous pen (Basaglar KwikPen U-100 Insulin) ipratropium bromide 21 mcg (0.03 2 spray intranasal AMHS 01/23/23 01/23/23 Hi story %) nasal spray levalbuterol HCl 0.63 mg/3 mL 0.63 mg inhalation Q4 PRN Wheezing 01/23/23 01/23/23 History solution for nebulization metformin 1,000 mg tablet 1,000 mg PO BID 01/23/23 01/23/23 History metoprolol tartrate 50 mg tablet 75 mg PO BID 01/23/23 01/23/23 History montelukast 10 mg tablet 10 mg PO DAILY 01/23/23 01/23/23 History nitrofurantoin 100 mg PO BID 01/23/23 01/23/23 History monohydrate/macrocrystals 100 mg capsule nystatin 100,000 unit/gram topical 1 applic topical BID 01/23/23 01/23/23 History powder nystatin-triamcinolone 100,000 1 applic topical BID PRN .flare ups 01/23/23 01/23/23 History unit/g-0.1 % topical cream pantoprazole 40 mg tablet,delayed 40 mg PO DAILY 01/23/23 01/23/23 History release semaglutide 2 mg/dose (8 mg/3 mL) 2 mg subcut WK 01/23/23 01/23/23 History subcutaneous pen injector (Ozempic) tamsulosin 0.4 mg capsule 0.4 mg PO HS 01/23/23 01/23/23 History triamcinolone acetonide 0.1 % 1 applic topical BID PRN .flare ups 01/23/23 01/23/23 History topical ointment Patient History Medical History Anxiety Arthritis Bipolar disorder Chronic diastolic heart failure Chronic sinusitis COPD (chronic obstructive pulmonary disease) follows with [facility] Pulmonary (Dr Kat) Depression Diabetes mellitus, type II IDDM GERD (gastroesophageal reflux disease) H/O: CVA (cerebrovascular accident) 2004 -- no deficits. History of bleeding ulcers History of cardioversion History of pneumococcal septicemia treated at [facility] 2012. HLD (hyperlipidemia) Hypertension Kidney stones Morbid obesity Nephrolithiasis REENA (obstructive sleep apnea) cpap at night Paroxysmal atrial fibrillation follows with Dr. 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 no problems since then. Wound dehiscence 2016 s/p hysterectomy Surgical History H/O: hysterectomy LUCERO with BSO History of bronchoscopy History of cataract surgery bilateral History of colonoscopy History of esophagogastroduodenoscopy (EGD) History of open reduction and internal fixation (ORIF) procedure Left elbow with hardware History of tonsillectomy Hx of nasal septoplasty S/P laparotomy to repair hysterectomy wound dehiscence. 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 Physical Exam Physical Exam: Morbid obesity. NAD. AAOx3 Constitutional: Has some lower back pain Eyes: PERRL, conjunctivae normal, anicteric sclerae Neck: Cannot assess JVD 2/2 body habitus Respiratory: Decreased breath sounds due to body habitus. No wheezes/rales/rhonchi. Cardiovascular: Irregular rhythm (chronic afib); regular rate. No murmurs, rubs, or gallops. Chest (Breasts): Chest: normal inspection of chest Gastrointestinal (Abdomen): normal bowel sounds, soft, nontender, no hepatosplenomegaly Skin: Left leg with significant erythema and warmth. 1+ b/l lower extremity edema. Neurologic: Deferred Psychiatric: A+Ox3, euthymic affect Results & Data Vital Signs (Past 12 Hours) Vital Signs Temp Pulse Pulse Resp BP Pulse Ox O2 Del Method 01/24/23 12:02 37.6 C H 79 21 116/67 92 Nasal Cannula 01/24/23 11:20 88 22 116/71 92 Nasal Cannula 01/24/23 11:10 37.4 C 81 21 118/66 92 Nasal Cannula 01/24/23 11:00 84 20 125/55 L 93 Oxymask 01/24/23 10:50 86 22 98/60 L 93 Oxymask 01/24/23 10:40 91 H 22 98/58 L 93 Oxymask 01/24/23 10:30 37.4 C 82 25 H 101/52 L 96 Oxymask 01/24/23 10:22 36.8 C 88 25 H 97/51 L 93 Oxymask 01/24/23 07:42 Nasal Cannula, CPAP 01/24/23 07:00 37.6 C H 106 H 18 139/76 94 CPAP 01/24/23 06:05 36.9 C 98 H 22 115/64 CPAP 01/24/23 02:59 126 H 25 H 94 O2 Flow Rate 01/24/23 12:02 4 01/24/23 11:20 4 01/24/23 11:10 4 01/24/23 11:00 4 01/24/23 10:50 4 01/24/23 10:40 4 01/24/23 10:30 4 01/24/23 10:22 6 01/24/23 07:42 2 01/24/23 07:00 01/24/23 06:05 01/24/23 02:59 3
[2023-01-24] MEDS: DICLOFENAC SOD 1% GEL 100 GM TUBE EXT SCH ×2 (14:13→19:55)
--- NOTE | 2023-01-24 14:40 | Hospitalist Progress Note ---
Date of Service January 24, 2023 Assessment & Plan (1) Ureteral calculus, right: Plan 72 y/o F with PMH HTN, HLD, DM II, COPD, paroxysmal atrial fibrillation chronically anticoagulated on Eliquis, chronic diastolic heart failure, RBBB, CVA, kidney stones, bipolar disorder, REENA, morbid obesity presented to ER with multiple medical complaints.This is being managed for the following: Acute on chronic diastolic heart failure History of noncompliance, patient was dyspneic at presentation 2020 TTE with EF of 55 to 59%. Admitting BNP 156. Admitting echo with EF of 55 to 60%, no LV segmental wall motion abnormality. Diastolic dysfunction. Troponin negative at presentation. Admitting CXR with pulmonary edema. No airspace consolidation. CT chest with no PE. Volume overload secondary to noncompliance in the setting of acute sepsis. Strict I's and O's, cardiology on board, managing diuresis. Continue telemetry monitoring. Partially treated complicated UTI Infected renal stone/obstructive uropathy Severe sepsis POA: Secondary to above. SIRS positive, lactic acid elevation at presentation. Hematuria: Secondary to obstructive uropathy LLE Cellulitis: will get lle venous doppler Patient came in with complaint of urinary frequency, dysuria in the setting of recent multiple courses of outpatient treatment for UTI. Pt noted to have LLE cellulitis on bedside exam today. Admitting CTAP with obstructing 6 x 5 mm stone in the right proximal ureter and nonobstructing 5 mm right mid pole renal stone. Patient started on aztreonam and daptomycin. Continue with same. Follow admitting cultures. Tailor antibiotic per culture results. Follow H&H closely. Status post cystoscopy and right ureteral stent placement by urology 01/24/2023. Will need follow-up with urology on discharge. Patient hemodynamically getting stable. Other chronic medical conditions: Continue with/resume home meds as and when able. hypertension, stable hyperlipidemia on statin Rx, held d/t pt being on dapto for now. PAF: Resume Eliquis once cleared per urology. history CVA as per records COPD, not in acute exacerbation REENA on CPAP DM2 insulin requiring, suboptimal control as of recent hemoglobin A1c of 9.06 September 2022, a1c 8.5 this admission. ? 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 mood disorder, stable past tobacco abuse hx MRSA DVT prophylaxis: SCDs hold Eliquis for now given gross hematuria at presentation. Full code Admission and Anticipated Discharge Date Admission Date: January 23, 2023 Subjective Patient was seen and examined at bedside. Patient was lying in bed, status post cystoscopy and right ureteral stent placement today morning, complaining of left hip pain which is her chronic pain and takes hydrocodone at home. Hydrocodone ordered. Diet will be resumed. Patient denies further fever after coming to the hospital. Denies right-sided flank pain. Physical Exam Physical Exam: GENERAL: Alert and oriented x3. NAD, on 4L NC O2; obese class III HEENT: No pallor, no icterus. Pupils equal, round and reactive to light. Oral mucosa moist. NECK: No JVD, no neck masses. HEART: S1 and S2 heard. Regular rate and rhythm. No murmur, no gallop. RESPIRATORY SYSTEM: Normal AP diameter. No accessory muscle use. No wheezing, no crackles. Decreased breath sounds secondary to obesity. ABDOMEN: Soft, bowel sounds present, nontender, no distention. CENTRAL NERVOUS SYSTEM: No facial droop. Speech is clear. Obeys simple commands. Moves extremities. EXTREMITIES: 1+ BLE edema, diffuse erythema and tenderness x left leg, chronic skin changes x right leg. Results & Data Results & Data Vital Signs (Past 12 Hours) Vital Signs Temp Pulse Pulse Resp BP Pulse Ox O2 Del Method 01/24/23 12:02 37.6 C H 79 21 116/67 92 Nasal Cannula 01/24/23 11:20 88 22 116/71 92 Nasal Cannula 01/24/23 11:10 37.4 C 81 21 118/66 92 Nasal Cannula 01/24/23 11:00 84 20 125/55 L 93 Oxymask 01/24/23 10:50 86 22 98/60 L 93 Oxymask 01/24/23 10:40 91 H 22 98/58 L 93 Oxymask 01/24/23 10:30 37.4 C 82 25 H 101/52 L 96 Oxymask 01/24/23 10:22 36.8 C 88 25 H 97/51 L 93 Oxymask 01/24/23 07:42 Nasal Cannula, CPAP 01/24/23 07:00 37.6 C H 106 H 18 139/76 94 CPAP 01/24/23 06:05 36.9 C 98 H 22 115/64 CPAP 01/24/23 02:59 126 H 25 H 94 O2 Flow Rate 01/24/23 12:02 4 01/24/23 11:20 4 01/24/23 11:10 4 01/24/23 11:00 4 01/24/23 10:50 4 01/24/23 10:40 4 01/24/23 10:30 4 01/24/23 10:22 6 01/24/23 07:42 2 01/24/23 07:00 01/24/23 06:05 01/24/23 02:59 3
[2023-01-24] MEDS ORDERED: FUROSEMIDE 40 MG/4 ML VIAL IV ONE (15:07)
--- NOTE | 2023-01-24 16:00 | Ultrasound Report ---
LEFT LOWER EXTREMITY VENOUS DOPPLER CLINICAL HISTORY: Lower extremity swelling. Evaluate for deep venous thrombus. COMPARISON STUDY: No previous studies for comparison. TECHNIQUE: Sonography of the deep venous system of the left lower extremity was performed. Compressi on and augmentation were evaluated. FINDINGS: The left common femoral, superficial femoral and popliteal veins were compressible. Augmen tation was normal. Calf vessels were suboptimally assessed but no deep venous thrombus was identified . IMPRESSION: Exam compromised by suboptimal penetration but no evidence of deep venous thrombus within the left lower extremity. ACT 112: Negative or not required by law. Electronically signed by: Hola Méndez M.D. 01/24/2023 3:58 PM
[2023-01-24] MEDS: TAMSULOSIN HCL 0.4 MG CAP PO SCH (20:43)
[2023-01-25] MEDS: HYDROCODONE/ACETAMOPHEN 5/325MG TAB PO PRN ×3 (02:23→14:23)
[2023-01-25] MEDS: DICLOFENAC SOD 1% GEL 100 GM TUBE EXT SCH ×3 (02:25→14:27)
[2023-01-25] MEDS: AZTREONAM 2,000 MG in DEXTROSE 5% MINI-B 100 ML IV SCH ×3 (04:39→19:30)
[2023-01-25] MEDS: DAPTOmycin 550 MG in SYRINGE 0 ML IV SCH (05:28)
[2023-01-25 06:01] LABS: Hematocrit (blood only) 30.3 % (37.0-47.0); Hemoglobin 9.5 g/dl (12.0-16.0); Mean Corpuscular Hemoglobin 27.3 pg (25.0-34.0); Mean Corpuscular Hgb Conc 31.4 g/dL (32.0-36.0); Mean Corpuscular Volume 87.1 fL (80.0-100.0); Mean Platelet Volume 10.8 fL (9.4-12.4); Platelet Count 122 K/uL (130-400); RDW Coefficient of Variation 17.3 % (11.5-14.5); RDW Standard Deviation 55.5 fL (36.4-46.3); Red Blood Count 3.48 M/uL (4.20-5.40); White Blood Count 10.54 K/ul (4.8-10.8)
[2023-01-25 06:09] LABS: BUN Creatinine Ratio 24.1 (10-20); Calcium 9.1 mg/dl (8.6-10.3); Creatinine Clr Calc Pharmacy 88.6 ml/min; Est GFR (African American) 78.2 ml/min; Est GFR (Non-African American) 67.5 ml/min; Phosphorus 3.7 mg/dl (2.5-4.9)
[2023-01-25] MEDS: INSULIN ASPART PER UNIT CHARGE SC SCH ×4 (07:48→21:22)
--- NOTE | 2023-01-25 07:49 | Hospitalist Progress Note ---
Date of Service January 25, 2023 Assessment & Plan (1) Ureteral calculus, right: Plan 72 y/o F with PMH HTN, HLD, DM II, COPD, paroxysmal atrial fibrillation chronically anticoagulated on Eliquis, chronic diastolic heart failure, RBBB, CVA, kidney stones, bipolar disorder, REENA, morbid obesity presented to ER with multiple medical complaints.This is being managed for the following: Acute on chronic diastolic heart failure History of noncompliance, patient was dyspneic at presentation 2020 TTE with EF of 55 to 59%. Admitting BNP 156. Admitting echo with EF of 55 to 60%, no LV segmental wall motion abnormality. Diastolic dysfunction. Troponin negative at presentation. Admitting CXR with pulmonary edema. No airspace consolidation. CT chest with no PE. Volume overload secondary to noncompliance in the setting of acute sepsis. Strict I's and O's, cardiology on board, managing diuresis. Continue telemetry monitoring. Partially treated complicated UTI Infected renal stone/obstructive uropathy Severe sepsis POA: Secondary to above. SIRS positive, lactic acid elevation at presentation. Hematuria: Secondary to obstructive uropathy LLE Cellulitis: will get lle venous doppler Patient came in with complaint of urinary frequency, dysuria in the setting of recent multiple courses of outpatient treatment for UTI. Pt noted to have LLE cellulitis on bedside exam today. Admitting CTAP with obstructing 6 x 5 mm stone in the right proximal ureter and nonobstructing 5 mm right mid pole renal stone. Patient started on aztreonam and daptomycin. Continue with same. Blood cultures are negative to day and no UA or Ucx this admission to reflect a specific pathogen. Will obtain outpatient records. Status post cystoscopy and right ureteral stent placement by urology 01/24/2023. Post operatively she reports acute left hip pain that is TTP of lateral area over GTB. Left CT hip reveals no acute fracture or dislocation. She is requiring narcotic therapy. Will start short term toradol to try and avoid using narcotics. Will need follow-up with urology on discharge. Other chronic medical conditions: Continue with/resume home meds as and when able. hypertension, stable hyperlipidemia on statin Rx, held d/t pt being on dapto for now. PAF: Resume Eliquis once cleared per urology. history CVA as per records COPD, not in acute exacerbation REENA on CPAP DM2 insulin requiring, suboptimal control as of recent hemoglobin A1c of 9.06 September 2022, a1c 8.5 this admission. ? compliance issues. 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 mood disorder, very anxious today regarding this hip pain which was improved with Ativan. Cont PRN severe anxiety. past tobacco abuse hx MRSA morbid obesity DVT prophylaxis: SCDs hold Eliquis for now given gross hematuria at presentation. Full code Danielle Roy DO [facility] Hospitalist Admission and Anticipated Discharge Date Admission Date: January 23, 2023 Subjective 72-year-old female presented with sepsis secondary to UTI, resuscitated. She underwent cystoscopy with a right ureteral stent insertion on 01/24. Very faint hematuria today that was intermittent. Patient is mostly focused on left hip pain that is acute and present spontaneously postoperatively yesterday. She denies any history of hip pain in the past. Her pain is so severe she is in distress and does not seem to be able to get comfortable. Denies any significant shortness of breath and remains on oxygen supplementation today. She is oxygenating 90% on 3 L/min. She continues to reiterate to myself and the primary RN that she is worried that she is needing to be ambulatory prior to discharge and that her will not take care of her. Physical Exam Physical Exam: CONSTITUTIONAL: obese, vitals as above, generally in moderate distress EYES: EOMI bilaterally, PERRL, normal conjuctivae, no scleral icterus, no fundoscopic abnormality ENT: external ear and nose normal, oropharynx clear, no TM abnormality, no maxillary or ethmoid sinus tenderness NECK: trachea midline, no lymphadenopathy, normal thyroid RESPIRATORY: clear to auscultation bilaterally, no crackles, rales or wheezes, normal respiratory effort CARDIOVASCULAR: regular rate and rhythm, S1 and 2 heard without murmurs, gallops or rubs, no JVD, no peripheral edema, no carotid bruits CHEST: inspection of chest was normal (+pacemaker, +port) GASTROINTESTINAL: normal bowel sounds, soft, nontender, no hepatomegaly, no guarding MUSCULOSKELETAL: strength 5/5 throughout, head is normocephalic and atraumatic, neck supple, normal palpation of chest wall without tenderness SKIN: warm and dry, no rashes NEUROLOGIC: CN 2-12 grossly intact, no sensory deficit, normal cognition, normal speech, no tremor PSYCHIATRIC: alert cooperative and oriented to person, place and time. Results & Data Results & Data Vital Signs (Past 12 Hours) Vital Signs Temp Pulse Pulse Resp BP Pulse Ox Pulse Ox 01/25/23 00:00 98 01/24/23 23:58 79 22 98 01/24/23 23:58 96 01/25/23 03:26 36.7 C 88 18 115/83 96 01/25/23 02:48 96 H 27 H 96 01/24/23 23:00 96 H 24 96 01/24/23 23:29 37.0 C 90 16 114/69 91 01/24/23 21:00 O2 Del Method O2 Del Method O2 Flow Rate 01/25/23 00:00 CPAP 01/24/23 23:58 CPAP 01/24/23 23:58 CPAP 01/25/23 03:26 CPAP 01/25/23 02:48 3 01/24/23 23:00 3 01/24/23 23:29 CPAP 01/24/23 21:00 Nasal Cannula 2 Laboratory Results Short CBC 01/25/23 Range/Units 05:35 WBC 10.54 (4.8-10.8) K/ul Hgb 9.5 L (12.0-16.0) g/dl Hct 30.3 L (37.0-47.0) % Plt Count 122 L (130-400) K/uL BMP 01/25/23 05:35 Sodium 133 L Potassium 4.0 Chloride 97 L Carbon Dioxide 29 BUN 21 Creatinine 0.87 Glucose 244 H Calcium 9.1 Medications Administered Current Inpatient Medications Acetaminophen (Acetaminophen 500 Mg Tab) 500 mg PO Q6H PRN PRN Reason: fever/pain Stop: 02/22/23 22:28 Last Admin: 01/24/23 23:50 Dose: 500 mg Hydrocodone Bitart/Acetaminophen (Hydrocodone/Acetamophen 5/325mg Tab) 1 tab PO Q6 PRN PRN Reason: Pain Stop: 02/07/23 13:50 Last Admin: 01/25/23 02:23 Dose: 1 tab Atorvastatin Calcium (Atorvastatin 40 Mg Tab) 40 mg PO DAILY GARIMA Stop: 02/23/23 08:59 Dextrose (Dextrose 50% 50 Ml Syringe) 25 - 50 ml IV UD PRN; Protocol PRN Reason: Hypoglycemia Protocol Stop: 02/22/23 23:57 Diclofenac Sodium (Diclofenac Sod 1% Gel 100 Gm Tube) 4 gm EXT Q6H GARIMA; Protocol Stop: 02/23/23 13:59 Last Admin: 01/25/23 02:25 Dose: 4 gm Diltiazem HCl (Diltiazem Hcl 180 Mg Capcr) 180 mg PO DAILY [facility] Stop: 02/23/23 04:29 Last Admin: 01/24/23 05:41 Dose: 180 mg Famotidine (Famotidine 20 Mg Tab) 20 mg PO DAILY [facility] Stop: 02/23/23 08:59 Last Admin: 01/24/23 08:53 Dose: 20 mg Glucagon (Glucagon For Inj 1 Mg Vial) 1 mg SQ UD PRN; Protocol PRN Reason: Hypoglycemia Protocol Stop: 02/22/23 23:57 Glucose (Glucose 10 Tab/Tube) 4 - 8 tab PO UD PRN; Protocol PRN Reason: Hypoglycemia Treatment Stop: 02/22/23 23:57 Glucose (Glucose 40% Gel 15 Gm Tube) 15 - 30 gm PO UD PRN; Protocol PRN Reason: Hypoglycemia Protocol Stop: 02/22/23 23:57 Promethazine HCl 12.5 mg/ (Sodium Chloride) 50.5 mls @ 202 mls/hr IV Q6H PRN PRN Reason: Nausea And Vomiting Stop: 02/22/23 22:28 Daptomycin 550 mg/ Syringe 11 mls @ 5.5 mls/min IV Q24H [facility]; Protocol Stop: 02/03/23 04:59 Last Admin: 01/25/23 05:28 Dose: 5.5 mls/min Aztreonam 2,000 mg/ Dextrose 100 mls @ 100 mls/hr IV Q8H [facility] Stop: 02/03/23 11:59 Last Infusion: 01/25/23 05:36 Dose: Infused Insulin Aspart (Insulin Aspart Per Unit Charge) 0 units SC ACHS [facility] Stop: 02/23/23 13:29 Last Admin: 01/24/23 20:37 Dose: 8 units Insulin Glargine (Lantus Per Unit Charge) 40 units SQ BID [facility] Stop: 02/23/23 08:59 Last Admin: 01/24/23 20:39 Dose: 40 units Ipratropium [place] (Ipratropium [place] Nasal [place] 0.06% 15ml) 1 sprays ANIBAL AMHS [facility] Stop: 02/23/23 08:59 Last Admin: 01/24/23 20:40 Dose: 1 sprays Lidocaine (Lidocaine 5% 1 Patch) 1 patch TD HS GARIMA Stop: 02/23/23 00:44 Last Admin: 01/24/23 20:41 Dose: 1 patch Metoprolol Tartrate (Metoprolol Tartrate 25 Mg Tab) 75 mg PO BID GARIMA Stop: 02/23/23 08:59 Last Admin: 01/24/23 20:42 Dose: 75 mg Miscellaneous (Carbohydrates For Hypoglycemia ) 15 - 30 gm PO UD PRN PRN Reason: Hypoglycemia Protocol Stop: 02/22/23 23:57 Miscellaneous (Remove Lidoderm Patch) 1 each N/A QAM GARIMA Stop: 02/23/23 10:59 Last Admin: 01/24/23 12:08 Dose: 1 each Montelukast Sodium (Montelukast Sodium 10 Mg Tablet) 10 mg PO DAILY GARIMA Stop: 02/23/23 08:59 Last Admin: 01/24/23 12:07 Dose: 10 mg Nitroglycerin (Nitroglycerin Sl 0.4 Mg/Tab Tab) 0.4 mg SL Q5M PRN PRN Reason: Chest Pain Stop: 02/22/23 23:57 Pantoprazole Sodium (Pantoprazole 40 Mg Tab) 40 mg PO DAILY GARIMA Stop: 02/23/23 08:59 Last Admin: 01/24/23 08:54 Dose: 40 mg Tamsulosin HCl (Tamsulosin Hcl 0.4 Mg Cap) 0.4 mg PO HS [facility] Stop: 02/23/23 20:59 Last Admin: 01/24/23 20:43 Dose: 0.4 mg Thiamine HCl (Thiamine Hcl 100 Mg Tab) 100 mg PO QAM GARIMA Stop: 01/30/23 09:01 Last Admin: 01/24/23 08:52 Dose: 100 mg Tramadol HCl (Tramadol Hcl 50 Mg Tablet) 25 - 50 mg PO Q4H PRN PRN Reason: Pain Stop: 02/22/23 22:28 Last Admin: 01/24/23 21:57 Dose: 50 mg
[2023-01-25] MEDS: LANTUS PER UNIT CHARGE SQ SCH ×2 (08:17→21:22)
[2023-01-25] MEDS: THIAMINE HCL 100 MG TAB PO SCH (08:47)
[2023-01-25] MEDS: METOPROLOL TARTRATE 25 MG TAB PO SCH ×2 (08:48→21:25)
[2023-01-25] MEDS: FAMOTIDINE 20 MG TAB PO SCH (08:48)
[2023-01-25] MEDS: dilTIAZem HCL 180 MG CAPCR PO SCH (08:49)
[2023-01-25] MEDS: MONTELUKAST SODIUM 10 MG TABLET PO SCH (08:50)
[2023-01-25] MEDS: IPRATROPIUM BROMIDE NASAL SPRAY 0.06% 15ML NAE SCH ×2 (08:50→23:06)
--- NOTE | 2023-01-25 09:41 | Urology Progress Note ---
Date of Service January 25, 2023 Assessment & Plan (1) Hydronephrosis with renal and ureteral calculous obstruction: (2) Fever: (3) Ureteral calculus, right: Plan Overall, she is doing well s/p right ureteral stent placement on 01/25/2023 She should have adequate source control with ureteral stent in place for urinary tract infection. We will continue antibiotics and narrow as further culture data becomes available, from urology perspective will require 7 to 10-day course of antibiotics. No plan for further urologic intervention during this admission, we will arrange outpatient follow-up to coordinate stone management. Urology will sign off for now, please call with any questions or concerns. Admission and Anticipated Discharge Date Admission Date: January 23, 2023 Subjective Feeling okay this morning Denies any fevers or chills Tolerating the stent without any issues WBC improved from 18.3 to 10.54 Lactate improved from 2.4 down to 1.1 blood cultures negative at 24 hours, she remains on daptomycin Review of Systems Review of Systems: 12 point review of systems negative except for otherwise indicated. Physical Exam Physical Exam: Well-appearing, NAD Results & Data Vital Signs (Past 12 Hours) Vital Signs Temp Pulse Pulse Resp BP Pulse Ox Pulse Ox 01/25/23 08:03 36.6 C 86 18 127/84 97 01/25/23 00:00 98 01/24/23 23:58 79 22 98 01/24/23 23:58 96 01/25/23 03:26 36.7 C 88 18 115/83 96 01/25/23 02:48 96 H 27 H 96 01/24/23 23:00 96 H 24 96 01/24/23 23:29 37.0 C 90 16 114/69 91 O2 Del Method O2 Del Method O2 Flow Rate 01/25/23 08:03 Nasal Cannula 3 01/25/23 00:00 CPAP 01/24/23 23:58 CPAP 01/24/23 23:58 CPAP 01/25/23 03:26 CPAP 01/25/23 02:48 3 01/24/23 23:00 3 01/24/23 23:29 CPAP PG Care Time/CCT Total # of Minutes Spent Total Time Spent with Patient: Total time spent is greater than 50% in coordination of care (as documented) at patient's floor/unit and/or counseling patient: Coding Level of Care Code 86782 SUB INP/OBS CARE Diagnoses Hydronephrosis with renal and ureteral calculous obstruction N13.2 Fever R50.9 Fever type: unspecified Ureteral calculus, right N20.1 (2) Fever Fever type: unspecified Qualified Code(s): R50.9 - Fever, unspecified
[2023-01-25] MEDS: traMADol HCL 50 MG TABLET PO PRN (10:32)
[2023-01-25] MEDS: PANTOprazole 40 MG TAB PO SCH (10:33)
[2023-01-25] MEDS: ACETAMINOPHEN 500 MG TAB PO PRN (12:03)
--- NOTE | 2023-01-25 13:04 | Cardiology Progress Note ---
Date of Service January 25, 2023 Assessment & Plan (1) Acute heart failure with preserved ejection fraction (HFpEF): Plan This is a 72 year old female with a pmhx of HFpEF, morbid obesity, COPD, CVA, who was admitted for urinary symptoms and found to have sepsis 2/2 a complicated UTI/infected kidney stone now s/p stent. She also was found to have acute on chronic decompensated HFpEF. 1. Acute Exacerbation of HFpEF -she has chronic volume overloaded 2/2 non-compliance and acutely complicated by sepsis -recommend additional dose of 80mg IV lasix x 1 and follow up urine output -goal net negative I/O of 2L or more daily -No change in LV function as per recent TTE 2. Afib with RVR -improved HR -continue to treat underlying sepsis -continue beta patsy and CCB for now. I provided 55 min of time to direct patient care including physical examination, review of the chart, and counseling the patient in regards to acute exacerbation of HFpEF. Ham Bauman MD Admission and Anticipated Discharge Date Admission Date: January 23, 2023 Subjective Feeling better overnight. Less short of breath. Less swelling in b/l lower extremities Review of Systems Review of Systems: Review of systems is otherwise negative, unless noted above in the HPI. Physical Exam Physical Exam: Morbid obesity. NAD. AAOx3 Eyes: PERRL, conjunctivae normal, anicteric sclerae Neck: Cannot assess JVD 2/2 body habitus. Respiratory: Decreased breath sounds diffusely 2/2 body habitus. Cardiovascular: Irregular Rhythm; normal rate. Chest (Breasts): Chest: normal inspection of chest Gastrointestinal (Abdomen): normal bowel sounds, soft, nontender, no hepatosplenomegaly Skin: lower extremity erythema improved. Psychiatric: A+Ox3, euthymic affect Results & Data Vital Signs (Past 12 Hours) Vital Signs Temp Pulse Pulse Resp BP Pulse Ox O2 Del Method 01/25/23 11:03 36.3 C L 99 H 18 122/76 92 Nasal Cannula 01/25/23 07:30 Nasal Cannula 01/25/23 08:03 36.6 C 86 18 127/84 97 Nasal Cannula 01/25/23 03:26 36.7 C 88 18 115/83 96 CPAP 01/25/23 02:48 96 H 27 H 96 O2 Flow Rate 01/25/23 11:03 3 01/25/23 07:30 2 01/25/23 08:03 3 01/25/23 03:26 01/25/23 02:48 3
[2023-01-25] MEDS ORDERED: FUROSEMIDE 40 MG/4 ML VIAL IV ONE (13:06)
[2023-01-25] MEDS: KETOROLAC TROMETHAMINE 15 MG/ML VIAL IV SCH ×2 (15:40→23:06)
[2023-01-25] MEDS: ACETAMINOPHEN 500 MG TAB PO SCH ×2 (15:43→21:27)
[2023-01-25] MEDS: PHENAZOPYRIDINE HCL 100 MG TAB PO SCH ×2 (15:43→21:28)
[2023-01-25] MEDS: oxyCODONE HCL IR 5 MG TAB (IMMEDIATE RELEASE) PO PRN ×2 (16:11→23:59)
--- NOTE | 2023-01-25 16:35 | CT Scan Report ---
CT hip LT wo con CLINICAL HISTORY: severe L hip pain, post op TECHNIQUE: Multidetector row helical CT of the left hip was performed without intravenous contrast. C oronal and sagittal reformations were obtained. Automated dose lowering techniques and/or adjustment according to patient size were utilized for this examination. CT DOSE: 1001.12 mGy.cm Comparison: Comparison is made to CT abdomen and pelvis 01/23/2023 FINDINGS: The osseous structures are without fracture or dislocation. Seen. No joint effusion is seen. Diverti culosis is seen without colitis. Catheter is noted in the bladder with a right nephroureteral stent. IMPRESSION: No evidence of acute fracture or dislocation. ACT 112: Negative or not required by law. Electronically signed by: Sina Mars M.D. 01/25/2023 4:33 PM
[2023-01-25] MEDS: LORazepam 0.5 MG TAB PO PRN (16:51)
[2023-01-25] MEDS ORDERED: MICONAZOLE NITRATE POWDER 85 GM EXT PRN (17:58)
[2023-01-25] MEDS: TROLAMINE SALICYLATE 10% CRM 255 APPLN/85 GM TUBE EXT PRN (19:32)
[2023-01-25] MEDS: TAMSULOSIN HCL 0.4 MG CAP PO SCH (21:25)
[2023-01-25] MEDS: LIDOCAINE 5% 1 PATCH TD SCH (21:26)
[2023-01-26] MEDS: AZTREONAM 2,000 MG in DEXTROSE 5% MINI-B 100 ML IV SCH ×2 (04:18→12:48)
[2023-01-26] MEDS: ACETAMINOPHEN 500 MG TAB PO SCH ×3 (06:12→20:58)
[2023-01-26] MEDS: DAPTOmycin 550 MG in SYRINGE 0 ML IV SCH (06:13)
[2023-01-26 07:24] LABS: Hematocrit (blood only) 32.5 % (37.0-47.0); Hemoglobin 10.1 g/dl (12.0-16.0); Mean Corpuscular Hemoglobin 27.2 pg (25.0-34.0); Mean Corpuscular Hgb Conc 31.1 g/dL (32.0-36.0); Mean Corpuscular Volume 87.6 fL (80.0-100.0); Mean Platelet Volume 11.2 fL (9.4-12.4); Platelet Count 129 K/uL (130-400); RDW Standard Deviation 54.7 fL (36.4-46.3); Red Blood Count 3.71 M/uL (4.20-5.40); White Blood Count 9.21 K/ul (4.8-10.8)
[2023-01-26] MEDS: KETOROLAC TROMETHAMINE 15 MG/ML VIAL IV SCH ×2 (07:45→12:48)
[2023-01-26 07:47] LABS: BUN Creatinine Ratio 25.6 (10-20); Calcium 9.6 mg/dl (8.6-10.3); Creatinine Clr Calc Pharmacy 66.2 ml/min; Est GFR (African American) 54.7 ml/min; Est GFR (Non-African American) 47.2 ml/min
--- NOTE | 2023-01-26 08:01 | Hospitalist Progress Note ---
Date of Service January 26, 2023 Assessment & Plan (1) Ureteral calculus, right: (2) Acute heart failure with preserved ejection fraction (HFpEF): (3) Hydronephrosis with renal and ureteral calculous obstruction: (4) Morbid obesity: (5) Bipolar disorder: (6) Arthritis: (7) REENA (obstructive sleep apnea): (8) Paroxysmal atrial fibrillation: (9) Diabetes mellitus, type II: Plan 72 y/o F with PMH HTN, HLD, DM II, COPD, paroxysmal atrial fibrillation chronically anticoagulated on Eliquis, chronic diastolic heart failure, RBBB, CVA, kidney stones, bipolar disorder, REENA, morbid obesity presented to ER with multiple medical complaints.This is being managed for the following: Acute on chronic diastolic heart failure History of noncompliance, patient was dyspneic at presentation 2020 TTE with EF of 55 to 59%. Admitting BNP 156. Admitting echo with EF of 55 to 60%, no LV segmental wall motion abnormality. Diastolic dysfunction. Troponin negative at presentation. Admitting CXR with pulmonary edema. No airspace consolidation. CT chest with no PE. Volume overload secondary to noncompliance in the setting of acute sepsis. Strict I's and O's, cardiology on board, managing diuresis. Continue telemetry monitoring. An additional 20mg IV Lasix fgiven by cardiology tonight. Cont to trend BMP with slight rise in creatinine this am. Partially treated complicated UTI Infected renal stone/obstructive uropathy Severe sepsis POA: Secondary to above. SIRS positive, lactic acid elevation at presentation. Hematuria: Secondary to obstructive uropathy Patient came in with complaint of urinary frequency, dysuria in the setting of recent multiple courses of outpatient treatment for UTI. No evidence of cellulitis today. Admitting CTAP with obstructing 6 x 5 mm stone in the right proximal ureter and nonobstructing 5 mm right mid pole renal stone. Patient started on aztreonam and daptomycin. Blood cultures are negative and there are no UA or Ucx this admission to reflect a specific pathogen. Outpatient records reveal no recent infection or culture data. De-escalate abx to PO Cipro on 01/26 Status post cystoscopy and right ureteral stent placement by urology 01/24/2023. Post operatively she reports acute left hip pain that is TTP of lateral area over GTB. Left CT hip reveals no acute fracture or dislocation. She is requiring narcotic therapy. Pain still present despite Toradol overnight. Cont to encourage her to get out of bed and ambulate. PT and OT are seeing her. Will need follow-up with urology on discharge. Other chronic medical conditions: Continue with/resume home meds as and when able. hypertension, stable hyperlipidemia on statin Rx, held d/t pt being on dapto for now. PAF: Resume Eliquis once cleared per urology. At this time hematuria is still present so would hold. history CVA as per records COPD, not in acute exacerbation REENA on CPAP DM2 insulin requiring, suboptimal control as of recent hemoglobin A1c of 9.06 September 2022, a1c 8.5 this admission. ? 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 Continue with basal/bolus insulin. tightened correction factor today. mood disorder, very anxious today regarding this hip pain which was improved with Ativan. Cont PRN severe anxiety. past tobacco abuse hx MRSA morbid obesity DVT prophylaxis: SCDs hold Eliquis for now given gross hematuria at presentation. Full code Danielle Roy DO [facility] Hospitalist Admission and Anticipated Discharge Date Admission Date: January 23, 2023 Subjective 72-year-old female presented with sepsis secondary to UTI, resuscitated. She underwent cystoscopy with a right ureteral stent insertion on 01/24. Hematuria persists today and she likes the pyridium. Still reports left hip pain that is described as a stabbing toothache. Not improved with toradol. Asking for lidocaine patch. She continues to require oxygen supplementation and is reporting coughing up scant blood with mucous. Requesting mucinex. Also, adding humidification to her line which is not currently present. Physical Exam Physical Exam: CONSTITUTIONAL: obese, vitals as above, generally in moderate distress EYES: normal conjunctivae, no scleral icterus ENT: external ear and nose normal, oropharynx clear, MMM NECK: trachea midline RESPIRATORY: clear to auscultation bilaterally, no crackles, rales or wheezes, normal respiratory effort CARDIOVASCULAR: regular rate and rhythm, S1 and 2 heard without murmurs, gallops or rubs, no JVD, no peripheral edema CHEST: inspection of chest was normal GASTROINTESTINAL: soft, nontender, ND no guarding, protuberant abdomen. MUSCULOSKELETAL: strength 5/5 throughout, head is normocephalic and atraumatic, TTP of GTB present on left hip. No pain to palpation of right inguinal area. SKIN: warm and dry, no rashes NEUROLOGIC: CN 2-12 grossly intact, no sensory deficit, normal cognition, normal speech, no tremor PSYCHIATRIC: alert cooperative and oriented to person, place and time. Results & Data Results & Data Vital Signs (Past 12 Hours) Vital Signs Temp Pulse Pulse Resp BP Pulse Ox Pulse Ox 01/25/23 23:00 98 01/26/23 04:33 36.8 C 72 23 122/84 91 01/26/23 02:58 68 20 94 01/26/23 00:13 89 L 01/26/23 00:05 36.7 C 70 19 120/72 01/26/23 00:03 69 18 90 01/25/23 22:18 O2 Del Method O2 Del Method O2 Flow Rate 01/25/23 23:00 CPAP 01/26/23 04:33 CPAP 01/26/23 02:58 3 01/26/23 00:13 CPAP 01/26/23 00:05 01/26/23 00:03 3 01/25/23 22:18 Nasal Cannula 2 Laboratory Results Short CBC 01/26/23 Range/Units 06:32 WBC 9.21 (4.8-10.8) K/ul Hgb 10.1 L (12.0-16.0) g/dl Hct 32.5 L (37.0-47.0) % Plt Count 129 L (130-400) K/uL BMP 01/26/23 06:32 Sodium 134 L Potassium 4.0 Chloride 96 L Carbon Dioxide 29 BUN 30 H Creatinine 1.17 D Glucose 241 H Calcium 9.6 Medications Administered Current Inpatient Medications Acetaminophen (Acetaminophen 500 Mg Tab) 1,000 mg PO Q8 [facility] Stop: 02/24/23 15:15 Last Admin: 01/26/23 06:12 Dose: 500 mg Atorvastatin Calcium (Atorvastatin 40 Mg Tab) 40 mg PO DAILY [facility] Stop: 02/23/23 08:59 Dextrose (Dextrose 50% 50 Ml Syringe) 25 - 50 ml IV UD PRN; Protocol PRN Reason: Hypoglycemia Protocol Stop: 02/22/23 23:57 Diltiazem HCl (Diltiazem Hcl 180 Mg Capcr) 180 mg PO DAILY [facility] Stop: 02/23/23 04:29 Last Admin: 01/25/23 08:49 Dose: 180 mg Famotidine (Famotidine 20 Mg Tab) 20 mg PO DAILY [facility] Stop: 02/23/23 08:59 Last Admin: 01/25/23 08:48 Dose: 20 mg Glucagon (Glucagon For Inj 1 Mg Vial) 1 mg SQ UD PRN; Protocol PRN Reason: Hypoglycemia Protocol Stop: 02/22/23 23:57 Glucose (Glucose 10 Tab/Tube) 4 - 8 tab PO UD PRN; Protocol PRN Reason: Hypoglycemia Treatment Stop: 02/22/23 23:57 Glucose (Glucose 40% Gel 15 Gm Tube) 15 - 30 gm PO UD PRN; Protocol PRN Reason: Hypoglycemia Protocol Stop: 02/22/23 23:57 Promethazine HCl 12.5 mg/ (Sodium Chloride) 50.5 mls @ 202 mls/hr IV Q6H PRN PRN Reason: Nausea And Vomiting Stop: 02/22/23 22:28 Daptomycin 550 mg/ Syringe 11 mls @ 5.5 mls/min IV Q24H [facility]; Protocol Stop: 02/03/23 04:59 Last Admin: 01/26/23 06:13 Dose: 5.5 mls/min Aztreonam 2,000 mg/ Dextrose 100 mls @ 100 mls/hr IV Q8H [facility] Stop: 02/03/23 11:59 Last Infusion: 01/26/23 07:26 Dose: Infused Insulin Aspart (Insulin Aspart Per Unit Charge) 0 units SC ACHS [facility] Stop: 02/23/23 13:29 Last Admin: 01/25/23 21:22 Dose: 8 units Insulin Glargine (Lantus Per Unit Charge) 50 units SQ BID [facility] Stop: 02/23/23 08:59 Last Admin: 01/25/23 21:22 Dose: 50 units Ipratropium [place] (Ipratropium [place] 0.06% 15ml) 1 sprays ANIBAL AMHS [facility] Stop: 02/23/23 08:59 Last Admin: 01/25/23 23:06 Dose: 1 sprays Ketorolac Tromethamine (Ketorolac Tromethamine 15 Mg/Ml Vial) 15 mg IV Q6 [facility] Stop: 01/26/23 12:01 Last Admin: 01/26/23 07:45 Dose: 15 mg Lidocaine (Lidocaine 5% 1 Patch) 1 patch TD HS [facility] Stop: 02/23/23 00:44 Last Admin: 01/25/23 21:26 Dose: 1 patch Lorazepam (Lorazepam 0.5 Mg Tab) 0.5 mg PO Q8H PRN PRN Reason: Anxiety Stop: 02/24/23 16:21 Last Admin: 01/25/23 16:51 Dose: 0.5 mg Metoprolol Tartrate (Metoprolol Tartrate 25 Mg Tab) 75 mg PO BID [facility] Stop: 02/23/23 08:59 Last Admin: 01/25/23 21:25 Dose: 75 mg Miconazole Nitrate (Miconazole Nitrate Powder 85 Gm) 1 appln EXT BID PRN PRN Reason: skin fold irritation Stop: 02/24/23 17:57 Miscellaneous (Carbohydrates For Hypoglycemia ) 15 - 30 gm PO UD PRN PRN Reason: Hypoglycemia Protocol Stop: 02/22/23 23:57 Miscellaneous (Remove Lidoderm Patch) 1 each N/A QAM [facility] Stop: 02/23/23 10:59 Last Admin: 01/25/23 10:33 Dose: 1 each Montelukast Sodium (Montelukast Sodium 10 Mg Tablet) 10 mg PO DAILY [facility] Stop: 02/23/23 08:59 Last Admin: 01/25/23 08:50 Dose: 10 mg Nitroglycerin (Nitroglycerin Sl 0.4 Mg/Tab Tab) 0.4 mg SL Q5M PRN PRN Reason: Chest Pain Stop: 02/22/23 23:57 Oxycodone HCl (Oxycodone Hcl Ir 5 Mg Tab (Immediate Release)) 5 mg PO Q6H PRN PRN Reason: severe pain 7-10 Stop: 02/08/23 15:14 Last Admin: 01/25/23 23:59 Dose: 5 mg Pantoprazole Sodium (Pantoprazole 40 Mg Tab) 40 mg PO DAILY [facility] Stop: 02/23/23 08:59 Last Admin: 01/25/23 10:33 Dose: 40 mg Phenazopyridine HCl (Phenazopyridine Hcl 100 Mg Tab) 100 mg PO TID [facility] Stop: 02/24/23 15:29 Last Admin: 01/25/23 21:28 Dose: 100 mg Tamsulosin HCl (Tamsulosin Hcl 0.4 Mg Cap) 0.4 mg PO HS [facility] Stop: 02/23/23 20:59 Last Admin: 01/25/23 21:25 Dose: 0.4 mg Thiamine HCl (Thiamine Hcl 100 Mg Tab) 100 mg PO QAM [facility] Stop: 01/30/23 09:01 Last Admin: 01/25/23 08:47 Dose: 100 mg Tramadol HCl (Tramadol Hcl 50 Mg Tablet) 25 - 50 mg PO Q4H PRN PRN Reason: Pain Stop: 02/22/23 22:28 Last Admin: 01/25/23 10:32 Dose: 50 mg Trolamine Salicylate (Trolamine Salicylate 10% Crm 255 Appln/85 Gm Tube) 1 appln EXT TID PRN PRN Reason: joint pain Stop: 02/24/23 15:15 Last Admin: 01/25/23 19:32 Dose: 1 appln
[2023-01-26] MEDS: FAMOTIDINE 20 MG TAB PO SCH (08:18)
[2023-01-26] MEDS: dilTIAZem HCL 180 MG CAPCR PO SCH (08:18)
[2023-01-26] MEDS: MONTELUKAST SODIUM 10 MG TABLET PO SCH (08:19)
[2023-01-26] MEDS: PHENAZOPYRIDINE HCL 100 MG TAB PO SCH ×3 (08:19→21:02)
[2023-01-26] MEDS: PANTOprazole 40 MG TAB PO SCH (08:19)
[2023-01-26] MEDS: METOPROLOL TARTRATE 25 MG TAB PO SCH ×2 (08:19→21:02)
[2023-01-26] MEDS: THIAMINE HCL 100 MG TAB PO SCH (08:20)
[2023-01-26] MEDS: LANTUS PER UNIT CHARGE SQ SCH ×2 (09:14→21:07)
[2023-01-26] MEDS: IPRATROPIUM BROMIDE NASAL SPRAY 0.06% 15ML NAE SCH ×2 (09:14→21:03)
[2023-01-26] MEDS: INSULIN ASPART PER UNIT CHARGE SC SCH ×4 (09:14→21:07)
[2023-01-26] MEDS: oxyCODONE HCL IR 5 MG TAB (IMMEDIATE RELEASE) PO PRN (10:34)
--- NOTE | 2023-01-26 14:24 | Urology Progress Note ---
Date of Service January 26, 2023 Assessment & Plan (1) Hydronephrosis with renal and ureteral calculous obstruction: (2) Fever: (3) Ureteral calculus, right: Plan Overall, she is doing well s/p right ureteral stent placement on 01/24/2023 Afebrile and hemodynamically stable. Labs today show no leukocytosis, hemoglobin 10.1, and normal renal function. She continues on daptomycin and aztreonam, follow cultures. Miller catheter intact and draining with hematuria. Catheter irrigated at bedside today without difficulty. Some hematuria is expected with a ureteral stent in place. Continue to monitor. Okay to hand irrigate as needed. No plan for further urologic intervention during this admission, we will arrange outpatient follow-up to coordinate stone management. Urology will sign off for now, please call with any questions or concerns. Admission and Anticipated Discharge Date Admission Date: January 23, 2023 Subjective Patient examined at bedside this AM. Awake, resting in bed on arrival. No acute distress. Tolerating ureteral stent with minimal bother. Miller draining with hematuria. She does report left hip pain and is unable to get comfortable due to this. Denies fevers, chills, nausea, vomiting. Review of Systems Constitutional: as per Subjective / HPI Gastrointestinal: as per Subjective / HPI Genitourinary: as per Subjective / HPI Physical Exam Constitutional: no acute distress Respiratory: no respiratory distress and no labored breathing Skin: No visible rashes or lesions to exposed skin areas Neurologic: awake Psychiatric: A+Ox3, euthymic affect Genitourinary: Miller intact, draining with hematuria Results & Data Vital Signs (Past 12 Hours) Vital Signs Temp Pulse Pulse Resp BP Pulse Ox O2 Del Method 01/26/23 12:09 37.1 C 83 18 136/75 92 Nasal Cannula 01/26/23 10:45 Nasal Cannula 01/26/23 08:02 36.9 C 98 H 18 139/73 92 Nasal Cannula 01/26/23 04:33 36.8 C 72 23 122/84 91 CPAP 01/26/23 02:58 68 20 94 O2 Flow Rate 01/26/23 12:09 2 01/26/23 10:45 2 01/26/23 08:02 2 01/26/23 04:33 01/26/23 02:58 3 PG Care Time/CCT Total # of Minutes Spent Total Time Spent with Patient: Total time spent is greater than 50% in coordination of care (as documented) at patient's floor/unit and/or counseling patient: Coding Level of Care Code 57127 SUB INP/OBS CARE 2/35MIN Diagnoses Hydronephrosis with renal and ureteral calculous obstruction N13.2 Fever R50.9 Fever type: unspecified Ureteral calculus, right N20.1 (2) Fever Fever type: unspecified Qualified Code(s): R50.9 - Fever, unspecified
[2023-01-26] MEDS ORDERED: FUROSEMIDE INJ 20 MG/2 ML VIAL IV ONE (16:00)
--- NOTE | 2023-01-26 17:22 | Cardiology Progress Note ---
Date of Service January 26, 2023 Assessment & Plan (1) Acute heart failure with preserved ejection fraction (HFpEF): Plan This is a 72 year old female with a pmhx of HFpEF, morbid obesity, COPD, CVA, who was admitted for urinary symptoms and found to have sepsis 2/2 a complicated UTI/infected kidney stone now s/p stent. She also was found to have acute on chronic decompensated HFpEF. 1. Acute Exacerbation of HFpEF -Patient received furosemide 80 mg in 01/25/2023. 2 L of urine output noted in the interim. Creatinine slightly increased from 0.87 yesterday to 1.17 milligrams per deciliter. -Still volume overloaded on exam -Proceed with furosemide 20 mg IV x1 now and again tomorrow. 2. Afib with RVR -improved HR -continue to treat underlying sepsis -continue beta patsy and CCB for now. --Eliquis on hold due to hematuria. Discussed treatment of UTI with Dr. Roy. Plan is to de-escalate her IV antibiotics and transition to oral ciprofloxacin. Admission and Anticipated Discharge Date Admission Date: January 23, 2023 Subjective Patient seen in cardiology follow-up. Telemetry reveals rate controlled atrial fibrillation in the 80s. Patient in the bedside chair. Miller catheter in place with mild hematuria noted. Physical Exam Physical Exam: Morbid obesity. NAD. AAOx3 Eyes: PERRL, conjunctivae normal, anicteric sclerae Cardiovascular: Rate/Rhythm: + irregularly irregular; not tachycardic Extremities: + edema (1-2+ bilateral lower extremity edema) Chest (Breasts): Chest: normal inspection of chest Gastrointestinal (Abdomen): normal bowel sounds, soft, nontender, no hepatosplenomegaly Psychiatric: A+Ox3, euthymic affect Results & Data Vital Signs (Past 12 Hours) Vital Signs Temp Pulse Pulse Resp BP Pulse Ox O2 Del Method 01/26/23 16:50 37.0 C 78 18 124/64 93 Room Air 01/26/23 07:59 87 01/26/23 14:58 74 01/26/23 12:09 37.1 C 83 18 136/75 92 Nasal Cannula 01/26/23 10:45 Nasal Cannula 01/26/23 08:02 36.9 C 98 H 18 139/73 92 Nasal Cannula O2 Flow Rate 01/26/23 16:50 01/26/23 07:59 01/26/23 14:58 01/26/23 12:09 2 01/26/23 10:45 2 01/26/23 08:02 2 Laboratory Results CBC 01/26/23 Range/Units 06:32 WBC 9.21 (4.8-10.8) K/ul RBC 3.71 L (4.20-5.40) M/uL Hgb 10.1 L (12.0-16.0) g/dl Hct 32.5 L (37.0-47.0) % Plt Count 129 L (130-400) K/uL Comprehensive Metabolic Panel 01/26/23 Range/Units 06:32 Sodium 134 L (136-145) mmol/L Potassium 4.0 (3.5-5.1) mmol/L Chloride 96 L (98-107) mmol/L Carbon Dioxide 29 (21-32) mmol/L BUN 30 H (6-23) mg/dl Creatinine 1.17 D (0.6-1.2) mg/dl Glucose 241 H (70-99(Fasting)) mg/dl Calcium 9.6 (8.6-10.3) mg/dl Intake and Output 01/26/23 01/26/23 01/26/23 06:59 14:59 22:59 Intake Total 200 / 680 480 / 680 Output Total 107 / 2575 300 / 450 150 / 450 Balance -1075 / -1775 -100 / 230 330 / 230 Intake: IV 200 / 200 Aztreonam 2,000 mg In Dextrose 200 / 200 5% Mini-B 100 ml @ 100 mls/hr IV Q8H [facility] Rx#:[id number] Oral 480 / 480 Output: Urine Amount (Catheter) 107 / 2575 300 / 450 150 / 450 Miller/Indwelling 1075 / 2575 300 / 450 150 / 450 Other: Weight 148.778 kg Weight Measurement Method Built in [facility]
[2023-01-26] MEDS ORDERED: ALBUTEROL 0.5% NEB SOLN 2.5 MG/0.5 ML VIAL NEB STA (19:41)
[2023-01-26] MEDS ORDERED: ALBUTEROL 0.5% NEB SOLN 2.5 MG/0.5 ML VIAL NEB PRN (19:41)
[2023-01-26] MEDS: TAMSULOSIN HCL 0.4 MG CAP PO SCH (20:59)
[2023-01-26] MEDS: guaiFENesin 600 MG TABCR PO SCH (21:00)
[2023-01-26] MEDS: CIPROFLOXACIN 500 MG TAB PO SCH (21:00)
[2023-01-26] MEDS: LIDOCAINE 5% 1 PATCH TD SCH (21:00)
[2023-01-27] MEDS: oxyCODONE HCL IR 5 MG TAB (IMMEDIATE RELEASE) PO PRN ×4 (04:26→23:11)
[2023-01-27] MEDS: ACETAMINOPHEN 500 MG TAB PO SCH ×3 (05:43→21:08)
[2023-01-27 06:52] LABS: Hematocrit (blood only) 32.2 % (37.0-47.0); Hemoglobin 10.1 g/dl (12.0-16.0); Mean Corpuscular Hemoglobin 26.9 pg (25.0-34.0); Mean Corpuscular Hgb Conc 31.4 g/dL (32.0-36.0); Mean Corpuscular Volume 85.6 fL (80.0-100.0); Mean Platelet Volume 11.2 fL (9.4-12.4); Platelet Count 159 K/uL (130-400); RDW Coefficient of Variation 16.8 % (11.5-14.5); RDW Standard Deviation 53.1 fL (36.4-46.3); Red Blood Count 3.76 M/uL (4.20-5.40); White Blood Count 8.89 K/ul (4.8-10.8)
[2023-01-27 07:26] LABS: BUN Creatinine Ratio 34.4 (10-20); Calcium 9.4 mg/dl (8.6-10.3); Creatinine Clr Calc Pharmacy 80.2 ml/min; Est GFR (African American) 69.4 ml/min; Est GFR (Non-African American) 59.9 ml/min; Magnesium 1.9 mg/dl (1.7-2.4); Potassium 4.4 mmol/L (3.5-5.1)
[2023-01-27] MEDS: CIPROFLOXACIN 500 MG TAB PO SCH ×2 (08:19→20:55)
[2023-01-27] MEDS: FAMOTIDINE 20 MG TAB PO SCH (08:19)
[2023-01-27] MEDS: guaiFENesin 600 MG TABCR PO SCH ×2 (08:19→20:57)
[2023-01-27] MEDS: dilTIAZem HCL 180 MG CAPCR PO SCH (08:19)
[2023-01-27] MEDS: PANTOprazole 40 MG TAB PO SCH (08:19)
[2023-01-27] MEDS: ATORVASTATIN 40 MG TAB PO SCH (08:19)
[2023-01-27] MEDS: METOPROLOL TARTRATE 25 MG TAB PO SCH ×2 (08:19→20:56)
[2023-01-27] MEDS: IPRATROPIUM BROMIDE NASAL SPRAY 0.06% 15ML NAE SCH ×2 (08:20→20:58)
[2023-01-27] MEDS: PHENAZOPYRIDINE HCL 100 MG TAB PO SCH ×3 (08:20→21:07)
[2023-01-27] MEDS: MONTELUKAST SODIUM 10 MG TABLET PO SCH (08:20)
[2023-01-27] MEDS: THIAMINE HCL 100 MG TAB PO SCH (08:20)
[2023-01-27] MEDS: LANTUS PER UNIT CHARGE SQ SCH ×2 (08:26→21:06)
[2023-01-27] MEDS: INSULIN ASPART PER UNIT CHARGE SC SCH ×4 (08:26→21:00)
[2023-01-27] MEDS ORDERED: FUROSEMIDE INJ 20 MG/2 ML VIAL IV SCH (09:00)
[2023-01-27] MEDS ORDERED: PHARMACY GLYCEMIC MGMT CONSULT PRN (10:29)
--- NOTE | 2023-01-27 10:30 | Hospitalist Progress Note ---
Date of Service January 27, 2023 Assessment & Plan (1) Ureteral calculus, right: (2) Acute heart failure with preserved ejection fraction (HFpEF): (3) Hydronephrosis with renal and ureteral calculous obstruction: (4) Morbid obesity: (5) Bipolar disorder: (6) Arthritis: (7) REENA (obstructive sleep apnea): (8) Paroxysmal atrial fibrillation: (9) Diabetes mellitus, type II: Plan 72 y/o F with PMH HTN, HLD, DM II, COPD, paroxysmal atrial fibrillation chronically anticoagulated on Eliquis, chronic diastolic heart failure, RBBB, CVA, kidney stones, bipolar disorder, REENA, morbid obesity presented to ER with multiple medical complaints.This is being managed for the following: Acute on chronic diastolic heart failure History of noncompliance, patient was dyspneic at presentation 2020 TTE with EF of 55 to 59%. Admitting BNP 156. Admitting echo with EF of 55 to 60%, no LV segmental wall motion abnormality. Diastolic dysfunction. Troponin negative at presentation. Admitting CXR with pulmonary edema. No airspace consolidation. CT chest with no PE. Volume overload secondary to noncompliance in the setting of acute sepsis. Strict I's and O's, cardiology on board, managing diuresis. Continue telemetry monitoring. Lasix increased to 20mg IV TID for goal net -2L daily. Partially treated complicated UTI Infected renal stone/obstructive uropathy Severe sepsis POA: Secondary to above. SIRS positive, lactic acid elevation at presentation. Hematuria: Secondary to obstructive uropathy Patient came in with complaint of urinary frequency, dysuria in the setting of recent multiple courses of outpatient treatment for UTI. No evidence of cellulitis today. Admitting CTAP with obstructing 6 x 5 mm stone in the right proximal ureter and nonobstructing 5 mm right mid pole renal stone. Patient started on aztreonam and daptomycin. Blood cultures are negative and there are no UA or Ucx this admission to reflect a specific pathogen. Outpatient records reveal no recent infection or culture data. De-escalate abx to PO Cipro on 01/26 Status post cystoscopy and right ureteral stent placement by urology 01/24/2023. Post operatively she reports acute left hip pain that is TTP of lateral area over GTB. Left CT hip reveals no acute fracture or dislocation. She is requiring narcotic therapy. Pain still present despite Toradol overnight. Cont to encourage her to get out of bed and ambulate. PT and OT are seeing her. Will need follow-up with urology on discharge. Other chronic medical conditions: Continue with/resume home meds as and when able. hypertension, stable hyperlipidemia on statin Rx, held d/t pt being on dapto for now. PAF: Resume Eliquis once cleared per urology. At this time hematuria is still present so would hold. history CVA as per records COPD, not in acute exacerbation REENA on CPAP DM2 insulin requiring, suboptimal control as of recent hemoglobin A1c of 9.06 September 2022, a1c 8.5 this admission. ? 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 tightened correction factor today. mood disorder, very anxious today regarding this hip pain which was improved with Ativan. Cont PRN severe anxiety. past tobacco abuse hx MRSA morbid obesity DVT prophylaxis: SCDs hold Eliquis for now given gross hematuria at presentation. Full code [facility] Roy [facility] and Anticipated Discharge Date Admission Date: January 23, 2023 Subjective 72-year-old female presented with sepsis secondary to UTI, resuscitated. She underwent cystoscopy with a right ureteral stent insertion on 01/24. Hematuria persists today and she likes the pyridium. Still reports left hip pain that is described as a stabbing toothache. Not improved with toradol. Asking for lidocaine patch. She continues to require oxygen supplementation and is reporting coughing up scant blood with mucous. Requesting mucinex. Also, adding humidification to her line which is not currently present. Physical Exam Physical Exam: CONSTITUTIONAL: obese, vitals as above, generally in moderate distress EYES: normal conjunctivae, no scleral icterus ENT: external ear and nose normal, oropharynx clear, MMM NECK: trachea midline RESPIRATORY: clear to auscultation bilaterally, no crackles, rales or wheezes, normal respiratory effort CARDIOVASCULAR: regular rate and rhythm, S1 and 2 heard without murmurs, gallops or rubs, no JVD, no peripheral edema CHEST: inspection of chest was normal GASTROINTESTINAL: soft, nontender, ND no guarding, protuberant abdomen. MUSCULOSKELETAL: strength 5/5 throughout, head is normocephalic and atraumatic, TTP of GTB present on left hip. No pain to palpation of right inguinal area. SKIN: warm and dry, no rashes NEUROLOGIC: CN 2-12 grossly intact, no sensory deficit, normal cognition, normal speech, no tremor PSYCHIATRIC: alert cooperative and oriented to person, place and time. Results & Data Results & Data Vital Signs (Past 12 Hours) Vital Signs Temp Pulse Pulse Resp BP Pulse Ox Pulse Ox 01/27/23 08:00 95 01/27/23 07:00 84 01/27/23 08:00 36.8 C 81 18 115/70 92 01/27/23 03:49 36.9 C 87 22 168/89 H 90 01/27/23 00:00 92 01/26/23 23:00 93 01/26/23 23:28 37.1 C 95 H 21 119/70 01/26/23 23:15 102 H 21 91 O2 Del Method O2 Del Method O2 Flow Rate O2 Flow Rate 01/27/23 08:00 Nasal Cannula 4 01/27/23 07:00 01/27/23 08:00 Nasal Cannula 4 01/27/23 03:49 CPAP 01/27/23 00:00 CPAP 01/26/23 23:00 Nasal Cannula 2 01/26/23 23:28 CPAP 01/26/23 23:15 4 Laboratory Results Short CBC 01/27/23 Range/Units 06:08 WBC 8.89 (4.8-10.8) K/ul Hgb 10.1 L (12.0-16.0) g/dl Hct 32.2 L (37.0-47.0) % Plt Count 159 (130-400) K/uL BMP 01/27/23 06:08 Sodium 133 L Potassium 4.4 Chloride 96 L Carbon Dioxide 28 BUN 33 H Creatinine 0.96 Glucose 291 H Calcium 9.4 Medications Administered Current Inpatient Medications Acetaminophen (Acetaminophen 500 Mg Tab) 1,000 mg PO Q8 GARIMA Stop: 02/24/23 15:15 Last Admin: 01/27/23 05:43 Dose: 1,000 mg Albuterol (Albuterol 0.5% Neb Soln 2.5 Mg/0.5 Ml Vial) 2.5 mg NEB Q6R PRN; Protocol PRN Reason: sob/wheezing Stop: 02/26/23 00:59 Atorvastatin Calcium (Atorvastatin 40 Mg Tab) 40 mg PO DAILY GARIMA Stop: 02/23/23 08:59 Last Admin: 01/27/23 08:19 Dose: 40 mg Ciprofloxacin (Ciprofloxacin 500 Mg Tab) 500 mg PO BID [facility]; Protocol Stop: 01/30/23 09:01 Last Admin: 01/27/23 08:19 Dose: 500 mg Dextrose (Dextrose 50% 50 Ml Syringe) 25 - 50 ml IV UD PRN; Protocol PRN Reason: Hypoglycemia Protocol Stop: 02/22/23 23:57 Diltiazem HCl (Diltiazem Hcl 180 Mg Capcr) 180 mg PO DAILY [facility] Stop: 02/23/23 04:29 Last Admin: 01/27/23 08:19 Dose: 180 mg Famotidine (Famotidine 20 Mg Tab) 20 mg PO DAILY [facility] Stop: 02/23/23 08:59 Last Admin: 01/27/23 08:19 Dose: 20 mg Furosemide (Furosemide Inj 20 Mg/2 Ml Vial) 20 mg IV DAILY [facility] Stop: 02/26/23 08:59 Last Admin: 01/27/23 08:19 Dose: 20 mg Glucagon (Glucagon For Inj 1 Mg Vial) 1 mg SQ UD PRN; Protocol PRN Reason: Hypoglycemia Protocol Stop: 02/22/23 23:57 Glucose (Glucose 10 Tab/Tube) 4 - 8 tab PO UD PRN; Protocol PRN Reason: Hypoglycemia Treatment Stop: 02/22/23 23:57 Glucose (Glucose 40% Gel 15 Gm Tube) 15 - 30 gm PO UD PRN; Protocol PRN Reason: Hypoglycemia Protocol Stop: 02/22/23 23:57 Guaifenesin (Guaifenesin 600 Mg Tabcr) 600 mg PO Q12 [facility] Stop: 02/25/23 20:59 Last Admin: 01/27/23 08:19 Dose: 600 mg Promethazine HCl 12.5 mg/ (Sodium Chloride) 50.5 mls @ 202 mls/hr IV Q6H PRN PRN Reason: Nausea And Vomiting Stop: 02/22/23 22:28 Insulin Aspart (Insulin Aspart Per Unit Charge) 0 units SC ACHS [facility] Stop: 02/23/23 13:29 Last Admin: 01/27/23 08:26 Dose: 22 units Insulin Glargine (Lantus Per Unit Charge) 50 units SQ BID [facility] Stop: 02/23/23 08:59 Last Admin: 01/27/23 08:26 Dose: 50 units Ipratropium [place] (Ipratropium [place] Nasal [place] 0.06% 15ml) 1 sprays ANIBAL AMHS [facility] Stop: 02/23/23 08:59 Last Admin: 01/27/23 08:20 Dose: 1 sprays Lidocaine (Lidocaine 5% 1 Patch) 2 patch TD HS G[facility]IMA Stop: 02/25/23 20:59 Last Admin: 01/26/23 21:00 Dose: 2 patch Lorazepam (Lorazepam 0.5 Mg Tab) 0.5 mg PO Q8H PRN PRN Reason: Anxiety Stop: 02/24/23 16:21 Last Admin: 01/25/23 16:51 Dose: 0.5 mg Metoprolol Tartrate (Metoprolol Tartrate 25 Mg Tab) 75 mg PO BID [facility] Stop: 02/23/23 08:59 Last Admin: 01/27/23 08:19 Dose: 75 mg Miconazole Nitrate (Miconazole Nitrate Powder 85 Gm) 1 appln EXT BID PRN PRN Reason: skin fold irritation Stop: 02/24/23 17:57 Miscellaneous (Carbohydrates For Hypoglycemia ) 15 - 30 gm PO UD PRN PRN Reason: Hypoglycemia Protocol Stop: 02/22/23 23:57 Miscellaneous (Remove Lidoderm Patch) 2 each N/A QAM [facility] Stop: 02/23/23 10:59 Last Admin: 01/27/23 08:20 Dose: 2 each Miscellaneous Information (Pharmacy Glycemic Mgmt Consult) 1 each N/A UD PRN; Protocol PRN Reason: Consult Stop: 02/26/23 10:28 Montelukast Sodium (Montelukast Sodium 10 Mg Tablet) 10 mg PO DAILY [facility] Stop: 02/23/23 08:59 Last Admin: 01/27/23 08:20 Dose: 10 mg Nitroglycerin (Nitroglycerin Sl 0.4 Mg/Tab Tab) 0.4 mg SL Q5M PRN PRN Reason: Chest Pain Stop: 02/22/23 23:57 Oxycodone HCl (Oxycodone Hcl Ir 5 Mg Tab (Immediate Release)) 5 mg PO Q6H PRN PRN Reason: severe pain 7-10 Stop: 02/08/23 15:14 Last Admin: 01/27/23 10:29 Dose: 5 mg Pantoprazole Sodium (Pantoprazole 40 Mg Tab) 40 mg PO DAILY [facility]IM[facility] Stop: 02/23/23 08:59 Last Admin: 01/27/23 08:19 Dose: 40 mg Phenazopyridine HCl (Phenazopyridine Hcl 100 Mg Tab) 100 mg PO TID [facility] Stop: 02/24/23 15:29 Last Admin: 01/27/23 08:20 Dose: 100 mg Tamsulosin HCl (Tamsulosin Hcl 0.4 Mg Cap) 0.4 mg PO HS [facility] Stop: 02/23/23 20:59 Last Admin: 01/26/23 20:59 Dose: 0.4 mg Thiamine HCl (Thiamine Hcl 100 Mg Tab) 100 mg PO QAM [facility] Stop: 01/30/23 09:01 Last Admin: 01/27/23 08:20 Dose: 100 mg Tramadol HCl (Tramadol Hcl 50 Mg Tablet) 25 - 50 mg PO Q4H PRN PRN Reason: Pain Stop: 02/22/23 22:28 Last Admin: 01/25/23 10:32 Dose: 50 mg Trolamine Salicylate (Trolamine Salicylate 10% Crm 255 Appln/85 Gm Tube) 1 appln EXT TID PRN PRN Reason: joint pain Stop: 02/24/23 15:15 Last Admin: 01/25/23 19:32 Dose: 1 appln
[2023-01-27] MEDS ORDERED: LANTUS PER UNIT CHARGE SC ONE (10:45)
--- NOTE | 2023-01-27 10:58 | Pharmacy Report ---
Pharmacy Glycemic Short Note 2 - Date of Service January 27, 2023 - Glycemic Short BSG Results (Last 24 hours): 01/26/23 01/26/23 01/26/23 11:31 11:32 16:34 Glucose POC Glucose 313 H* 311 H* 270 H 01/26/23 01/27/23 01/27/23 20:52 06:08 07:38 Glucose 291 H POC Glucose 283 H 287 H OUTPATIENT ANTIDIABETIC REGIMEN: * Basaglar 65units SQ BID * Novolog 20-25 units BIDM * metformin 1gm PO BID * Ozempic 2mg SQ weekly HbA1C: 8.5% ASSESSMENT: * Pt is a 72 year old female admitted 01/23 with sepsis in the setting of an infected renal stone. History of DM2 on insulin, metformin and Ozempic at home. BSGs have remained elevated since admission. Pharmacy consulted to assist with glycemic management. * BSGs [phone]/dl the last 24h. Fasting BSG persistently elevated. Received 100 units of basal and 64 units of bolus insulin yesterday (titrated from 90 units and 42 units of bolus 01/25). * Tolerating diet and receiving PO antibiotics. * Further titrate basal today for total 60 units this AM and 58 units BID starting tonight. Novolog tightened to 12/4. PLAN FOR INPATIENT GLYCEMIC CONTROL: * Hold outpatient oral diabetes medications * Basal insulin * Lantus 10 units SQ X 1 (in addition to 50 units received this AM), then 58 units BID * Bolus insulin * NovoLog per scale ACHS or Q6hrs while NPO * Goal Range: Low 110 mg/dL - High 140 mg/dL * Correction Factor: 12 mg/dL/unit * Nutritional / Prandial insulin per carb ratio of 1 unit per 4 grams CHO consumed
--- NOTE | 2023-01-27 11:04 | Cardiology Progress Note ---
Date of Service January 27, 2023 Assessment & Plan (1) Acute heart failure with preserved ejection fraction (HFpEF): (2) Permanent atrial fibrillation: Plan This is a 72 year old female with a pmhx of HFpEF, morbid obesity, COPD, CVA, who was admitted for urinary symptoms and found to have sepsis 2/2 a complicated UTI/infected kidney stone now s/p stent. She also was found to have acute on chronic decompensated HFpEF. 1. Acute Exacerbation of HFpEF -per review of outpatient cardio note from 2021, pt on chronic diltiazem and has chronic LE edema -Continue furosemide, increase dose to 20 mg IV TID 2. Permanent atrial fibrillation -continue beta patsy and CCB for now. -Eliquis on hold due to hematuria. -h/o CVA so need to attempt to limit duration off Eliquis Differ treatment of cellulitis / UTI to hospitalist service. Admission and Anticipated Discharge Date Admission Date: January 23, 2023 Subjective Patient in good spirits. Feeling well. Miller catheter remains in place. Although she is on Pyridium, there appears to be mild superimposed hematuria as well. She tolerated doses of IV furosemide, 20 mg last evening and again thus far today from a blood pressure and kidney function standpoint. Physical Exam Physical Exam: Morbid obesity. NAD. AAOx3 Eyes: PERRL, conjunctivae normal, anicteric sclerae Cardiovascular: Rate/Rhythm: + irregularly irregular; not tachycardic Extremities: + edema (1-2+ bilateral lower extremity edema) Chest (Breasts): Chest: normal inspection of chest Gastrointestinal (Abdomen): normal bowel sounds, soft, nontender, no hepatosplenomegaly Psychiatric: A+Ox3, euthymic affect Results & Data Vital Signs (Past 12 Hours) Vital Signs Temp Pulse Pulse Resp BP Pulse Ox Pulse Ox 01/27/23 08:00 95 01/27/23 07:00 84 01/27/23 08:00 36.8 C 81 18 115/70 92 01/27/23 03:49 36.9 C 87 22 168/89 H 90 01/27/23 00:00 92 01/26/23 23:00 93 01/26/23 23:28 37.1 C 95 H 21 119/70 01/26/23 23:15 102 H 21 91 O2 Del Method O2 Del Method O2 Flow Rate O2 Flow Rate 01/27/23 08:00 Nasal Cannula 4 01/27/23 07:00 01/27/23 08:00 Nasal Cannula 4 01/27/23 03:49 CPAP 01/27/23 00:00 CPAP 01/26/23 23:00 Nasal Cannula 2 01/26/23 23:28 CPAP 01/26/23 23:15 4 Laboratory Results CBC 01/27/23 Range/Units 06:08 WBC 8.89 (4.8-10.8) K/ul RBC 3.76 L (4.20-5.40) M/uL Hgb 10.1 L (12.0-16.0) g/dl Hct 32.2 L (37.0-47.0) % Plt Count 159 (130-400) K/uL Comprehensive Metabolic Panel 01/27/23 Range/Units 06:08 Sodium 133 L (136-145) mmol/L Potassium 4.4 (3.5-5.1) mmol/L Chloride 96 L (98-107) mmol/L Carbon Dioxide 28 (21-32) mmol/L BUN 33 H (6-23) mg/dl Creatinine 0.96 (0.6-1.2) mg/dl Glucose 291 H (70-99(Fasting)) mg/dl Calcium 9.4 (8.6-10.3) mg/dl Intake and Output 01/26/23 01/27/23 01/27/23 22:59 06:59 14:59 Intake Total 480 / 1190 510 / 1190 Output Total 150 / 1275 825 / 1275 Balance 330 / -85 -315 / -85 Intake: Oral 480 / 990 510 / 990 Output: Urine Amount (Catheter) 150 / 1275 825 / 1275 Miller/Indwelling 150 / 1275 825 / 1275 Other: Weight 147.531 kg Weight Measurement Method Built in [place] [id number]
[2023-01-27] MEDS: FUROSEMIDE INJ 20 MG/2 ML VIAL IV SCH ×2 (12:10→17:04)
[2023-01-27] MEDS ORDERED: GLYCERIN ADULT 12 SUPP/BOX SUPP PR PRN (18:58)
[2023-01-27] MEDS: LIDOCAINE 5% 1 PATCH TD SCH (20:59)
[2023-01-27] MEDS: POLYETHYLENE (MIRALAX) 17 GM PACK PO SCH (21:07)
[2023-01-27] MEDS: TAMSULOSIN HCL 0.4 MG CAP PO SCH (21:08)
[2023-01-28] MEDS: oxyCODONE HCL IR 5 MG TAB (IMMEDIATE RELEASE) PO PRN ×2 (04:53→13:15)
[2023-01-28] MEDS: ACETAMINOPHEN 500 MG TAB PO SCH ×3 (04:54→20:48)
[2023-01-28 07:25] LABS: BUN Creatinine Ratio 33.3 (10-20); Est GFR (African American) 81.6 ml/min; Est GFR (Non-African American) 70.4 ml/min; Magnesium 1.8 mg/dl (1.7-2.4); Potassium 4.3 mmol/L (3.5-5.1)
[2023-01-28] MEDS: FUROSEMIDE INJ 20 MG/2 ML VIAL IV SCH ×3 (08:54→16:59)
--- NOTE | 2023-01-28 08:56 | Hospitalist Progress Note ---
Date of Service January 28, 2023 Assessment & Plan (1) Ureteral calculus, right: (2) Acute heart failure with preserved ejection fraction (HFpEF): (3) Hydronephrosis with renal and ureteral calculous obstruction: (4) Morbid obesity: (5) Bipolar disorder: (6) Arthritis: (7) REENA (obstructive sleep apnea): (8) Paroxysmal atrial fibrillation: (9) Diabetes mellitus, type II: Plan 72 y/o F with PMH HTN, HLD, DM II, COPD, paroxysmal atrial fibrillation chronically anticoagulated on Eliquis, chronic diastolic heart failure, RBBB, CVA, kidney stones, bipolar disorder, REENA, morbid obesity presented to ER with multiple medical complaints.This is being managed for the following: Acute on chronic diastolic heart failure History of noncompliance, patient was dyspneic at presentation 2020 TTE with EF of 55 to 59%. Admitting BNP 156. Admitting echo with EF of 55 to 60%, no LV segmental wall motion abnormality. Diastolic dysfunction. Troponin negative at presentation. Admitting CXR with pulmonary edema. No airspace consolidation. CT chest with no PE. Volume overload secondary to noncompliance in the setting of acute sepsis. Strict I's and O's, cardiology on board, managing diuresis. Continue telemetry monitoring. Cont. Lasix 20mg IV TID Partially treated complicated UTI Infected renal stone/obstructive uropathy Severe sepsis POA: Secondary to above. SIRS positive, lactic acid elevation at presentation. Hematuria: Secondary to obstructive uropathy Patient came in with complaint of urinary frequency, dysuria in the setting of recent multiple courses of outpatient treatment for UTI. +LLE cellulitis - started PO doxy Admitting CTAP with obstructing 6 x 5 mm stone in the right proximal ureter and nonobstructing 5 mm right mid pole renal stone. Patient started on aztreonam and daptomycin. Blood cultures are negative and there are no UA or Ucx this admission to reflect a specific pathogen. Outpatient records reveal no recent infection or culture data. De-escalate abx to PO Cipro on 01/26 Status post cystoscopy and right ureteral stent placement by urology 01/24/2023. Post operatively she reports acute left hip pain that is TTP of lateral area over GTB. Left CT hip reveals no acute fracture or dislocation. She is requiring narcotic therapy. Pain still present despite Toradol overnight. Cont to encourage her to get out of bed and ambulate. PT and OT are seeing her. Will need follow-up with urology on discharge. Other chronic medical conditions: Continue with/resume home meds as and when able. hypertension, stable hyperlipidemia on statin Rx, held d/t pt being on dapto. can resume PAF: Resume Eliquis history CVA as per records COPD, not in acute exacerbation REENA on CPAP DM2 insulin requiring, suboptimal control as of recent hemoglobin A1c of 9.06 September 2022, a1c 8.5 this admission. ? compliance issues. under cutter. Continue with basal/bolus insulin. tightened correction factor. mood disorder, very anxious regarding hip pain which was improved with Ativan (per previous provider). Cont PRN severe anxiety. past tobacco abuse hx MRSA morbid obesity DVT ppx - resume eliquis Full code Admission and Anticipated Discharge Date Admission Date: January 23, 2023 Subjective 72-year-old female presented with sepsis secondary to UTI, resuscitated. She underwent cystoscopy with a right ureteral stent insertion on 01/24. Hematuria is now resolved, pt is on pyridium. Still reports left hip pain. She continues to require oxygen supplementation, breathing comfortably. No fever, chills, chest pain. Review of Systems Review of Systems: All systems reviewed & are unremarkable except as noted in Subjective Physical Exam Physical Exam: CONSTITUTIONAL: obese F in NAD, on suppl. O2 EYES: normal conjunctivae, no scleral icterus ENT: external ear and nose normal, oropharynx clear, MMM NECK: trachea midline RESPIRATORY: clear to auscultation bilaterally, no crackles, rales or wheezes, normal respiratory effort CARDIOVASCULAR: regular rate and rhythm, S1 and 2 heard without murmurs, gallops or rubs, no JVD, no peripheral edema CHEST: inspection of chest was normal GASTROINTESTINAL: soft, nontender, ND no guarding, + obese abdomen. MUSCULOSKELETAL: head is normocephalic and atraumatic, moves extremities, + LLE erythema SKIN: warm and dry, no rashes NEURO/PSYCH: awake, alert, answers appropriately, no facial asymmetry, speech fluent, moves extremities Results & Data Results & Data Vital Signs (Past 12 Hours) Vital Signs Temp Pulse Pulse Resp BP Pulse Ox O2 Del Method 01/28/23 07:43 75 01/28/23 07:21 Nasal Cannula 01/28/23 07:15 36.6 C 70 20 136/81 95 Nasal Cannula 01/28/23 03:52 74 21 129/85 93 CPAP 01/28/23 02:08 74 21 92 01/27/23 23:37 36.9 C 89 21 125/81 91 Nasal Cannula 01/28/23 00:11 22 92 O2 Flow Rate 01/28/23 07:43 01/28/23 07:21 2 01/28/23 07:15 2.0 01/28/23 03:52 01/28/23 02:08 5 01/27/23 23:37 2 01/28/23 00:11 3 Laboratory Results 01/28/23 01/28/23 01/27/23 Range/Units 07:12 06:14 20:39 Sodium 137 (136-145) mmol/L Potassium 4.3 (3.5-5.1) mmol/L Chloride 100 (98-107) mmol/L Carbon Dioxide 28 (21-32) mmol/L Anion Gap 9 (3-11) BUN 28 H (6-23) mg/dl Creatinine 0.84 (0.6-1.2) mg/dl Est Cr Clr Drug Dosing 94.0 ml/min Est GFR ( Amer) 81.6 ml/min Est GFR (Non-Af Amer) 70.4 ml/min BUN/Creatinine Ratio 33.3 H (10-20) Glucose 243 H (70-99(Fasting)) mg/dl POC Glucose 254 H 277 H (70-99) mg/dl Calcium 10.0 (8.6-10.3) mg/dl Magnesium 1.8 (1.7-2.4) mg/dl 01/27/23 01/27/23 Range/Units 16:26 11:23 Sodium (136-145) mmol/L Potassium (3.5-5.1) mmol/L Chloride (98-107) mmol/L Carbon Dioxide (21-32) mmol/L Anion Gap (3-11) BUN (6-23) mg/dl Creatinine (0.6-1.2) mg/dl Est Cr Clr Drug Dosing ml/min Est GFR ( Amer) ml/min Est GFR (Non-Af Amer) ml/min BUN/Creatinine Ratio (10-20) Glucose (70-99(Fasting)) mg/dl POC Glucose 228 H 274 H (70-99) mg/dl Calcium (8.6-10.3) mg/dl Magnesium (1.7-2.4) mg/dl Medications Administered Current Inpatient Medications Acetaminophen (Acetaminophen 500 Mg Tab) 1,000 mg PO Q8 GARIMA Stop: 02/24/23 15:15 Last Admin: 01/28/23 04:54 Dose: 1,000 mg Albuterol (Albuterol 0.5% Neb Soln 2.5 Mg/0.5 Ml Vial) 2.5 mg NEB Q6R PRN; Protocol PRN Reason: sob/wheezing Stop: 02/26/23 00:59 Atorvastatin Calcium (Atorvastatin 40 Mg Tab) 40 mg PO DAILY GARIMA Stop: 02/23/23 08:59 Last Admin: 01/27/23 08:19 Dose: 40 mg Ciprofloxacin (Ciprofloxacin 500 Mg Tab) 500 mg PO BID GARIMA; Protocol Stop: 01/30/23 09:01 Last Admin: 01/27/23 20:55 Dose: 500 mg Dextrose (Dextrose 50% 50 Ml Syringe) 25 - 50 ml IV UD PRN; Protocol PRN Reason: Hypoglycemia Protocol Stop: 02/22/23 23:57 Diltiazem HCl (Diltiazem Hcl 180 Mg Capcr) 180 mg PO DAILY GARIMA Stop: 02/23/23 04:29 Last Admin: 01/27/23 08:19 Dose: 180 mg Famotidine (Famotidine 20 Mg Tab) 20 mg PO DAILY GARIMA Stop: 02/23/23 08:59 Last Admin: 01/27/23 08:19 Dose: 20 mg Furosemide (Furosemide Inj 20 Mg/2 Ml Vial) 20 mg IV TIDM GARIMA Stop: 02/26/23 13:59 Last Admin: 01/27/23 17:04 Dose: 20 mg Glucagon (Glucagon For Inj 1 Mg Vial) 1 mg SQ UD PRN; Protocol PRN Reason: Hypoglycemia Protocol Stop: 02/22/23 23:57 Glucose (Glucose 10 Tab/Tube) 4 - 8 tab PO UD PRN; Protocol PRN Reason: Hypoglycemia Treatment Stop: 02/22/23 23:57 Glucose (Glucose 40% Gel 15 Gm Tube) 15 - 30 gm PO UD PRN; Protocol PRN Reason: Hypoglycemia Protocol Stop: 02/22/23 23:57 Glycerin (Glycerin Adult 12 Supp/Box Supp) 1 supp SC Q24H PRN PRN Reason: Constipation Stop: 02/26/23 18:57 Guaifenesin (Guaifenesin 600 Mg Tabcr) 600 mg PO Q12 GARIMA Stop: 02/25/23 20:59 Last Admin: 01/27/23 20:57 Dose: 600 mg Promethazine HCl 12.5 mg/ (Sodium Chloride) 50.5 mls @ 202 mls/hr IV Q6H PRN PRN Reason: Nausea And Vomiting Stop: 02/22/23 22:28 Insulin Aspart (Insulin Aspart Per Unit Charge) 0 units SC ACHS GARIMA Stop: 02/23/23 13:29 Last Admin: 01/27/23 21:00 Dose: 12 units Insulin Glargine (Lantus Per Unit Charge) 58 units SQ BID [facility] Stop: 02/23/23 08:59 Last Admin: 01/27/23 21:06 Dose: 58 units Ipratropium [place] (Ipratropium [place] Nasal [place] 0.06% 15ml) 1 sprays ANIBAL [facility] Stop: 02/23/23 08:59 Last Admin: 01/27/23 20:58 Dose: 1 sprays Lidocaine (Lidocaine 5% 1 Patch) 2 patch TD HS [facility] Stop: 02/25/23 20:59 Last Admin: 01/27/23 20:59 Dose: 2 patch Lorazepam (Lorazepam 0.5 Mg Tab) 0.5 mg PO Q8H PRN PRN Reason: Anxiety Stop: 02/24/23 16:21 Last Admin: 01/25/23 16:51 Dose: 0.5 mg Metoprolol Tartrate (Metoprolol Tartrate 25 Mg Tab) 75 mg PO BID [facility] Stop: 02/23/23 08:59 Last Admin: 01/27/23 20:56 Dose: 75 mg Miconazole Nitrate (Miconazole Nitrate Powder 85 Gm) 1 appln EXT BID PRN PRN Reason: skin fold irritation Stop: 02/24/23 17:57 Miscellaneous (Carbohydrates For Hypoglycemia ) 15 - 30 gm PO UD PRN PRN Reason: Hypoglycemia Protocol Stop: 02/22/23 23:57 Miscellaneous (Remove Lidoderm Patch) 2 each N/A QAM G[facility]IM[facility] Stop: 02/23/23 10:59 Last Admin: 01/27/23 08:20 Dose: 2 each Miscellaneous Information (Pharmacy Glycemic Mgmt Consult) 1 each N/A UD PRN; Protocol PRN Reason: Consult Stop: 02/26/23 10:28 Montelukast Sodium (Montelukast Sodium 10 Mg Tablet) 10 mg PO DAILY GARIMA Stop: 02/23/23 08:59 Last Admin: 01/27/23 08:20 Dose: 10 mg Nitroglycerin (Nitroglycerin Sl 0.4 Mg/Tab Tab) 0.4 mg SL Q5M PRN PRN Reason: Chest Pain Stop: 02/22/23 23:57 Oxycodone HCl (Oxycodone Hcl Ir 5 Mg Tab (Immediate Release)) 5 mg PO Q6H PRN PRN Reason: severe pain 7-10 Stop: 02/08/23 15:14 Last Admin: 01/28/23 04:53 Dose: 5 mg Pantoprazole Sodium (Pantoprazole 40 Mg Tab) 40 mg PO DAILY GARIMA Stop: 02/23/23 08:59 Last Admin: 01/27/23 08:19 Dose: 40 mg Phenazopyridine HCl (Phenazopyridine Hcl 100 Mg Tab) 100 mg PO TID [facility] Stop: 02/24/23 15:29 Last Admin: 01/27/23 21:07 Dose: 100 mg Polyethylene Glycol (Polyethylene (Miralax) 17 Gm Pack) 17 gm PO DAILY GARIMA Stop: 02/26/23 18:59 Last Admin: 01/27/23 21:07 Dose: 17 gm Tamsulosin HCl (Tamsulosin Hcl 0.4 Mg Cap) 0.4 mg PO HS [facility] Stop: 02/23/23 20:59 Last Admin: 01/27/23 21:08 Dose: 0.4 mg Thiamine HCl (Thiamine Hcl 100 Mg Tab) 100 mg PO QAM [facility] Stop: 01/30/23 09:01 Last Admin: 01/27/23 08:20 Dose: 100 mg Tramadol HCl (Tramadol Hcl 50 Mg Tablet) 25 - 50 mg PO Q4H PRN PRN Reason: Pain Stop: 02/22/23 22:28 Last Admin: 01/25/23 10:32 Dose: 50 mg Trolamine Salicylate (Trolamine Salicylate 10% Crm 255 Appln/85 Gm Tube) 1 appln EXT TID PRN PRN Reason: joint pain Stop: 02/24/23 15:15 Last Admin: 01/25/23 19:32 Dose: 1 appln
[2023-01-28] MEDS: CIPROFLOXACIN 500 MG TAB PO SCH ×2 (08:57→20:31)
[2023-01-28] MEDS: ATORVASTATIN 40 MG TAB PO SCH (08:57)
[2023-01-28] MEDS: dilTIAZem HCL 180 MG CAPCR PO SCH (08:57)
[2023-01-28] MEDS: IPRATROPIUM BROMIDE NASAL SPRAY 0.06% 15ML NAE SCH ×2 (08:58→22:02)
[2023-01-28] MEDS: guaiFENesin 600 MG TABCR PO SCH ×2 (08:58→20:32)
[2023-01-28] MEDS: METOPROLOL TARTRATE 25 MG TAB PO SCH ×2 (08:58→22:17)
[2023-01-28] MEDS: FAMOTIDINE 20 MG TAB PO SCH (08:58)
[2023-01-28] MEDS: POLYETHYLENE (MIRALAX) 17 GM PACK PO SCH (08:59)
[2023-01-28] MEDS: PHENAZOPYRIDINE HCL 100 MG TAB PO SCH ×3 (08:59→22:17)
[2023-01-28] MEDS: PANTOprazole 40 MG TAB PO SCH (08:59)
[2023-01-28] MEDS: MONTELUKAST SODIUM 10 MG TABLET PO SCH (08:59)
[2023-01-28] MEDS: INSULIN ASPART PER UNIT CHARGE SC SCH ×4 (09:00→20:44)
[2023-01-28] MEDS: LANTUS PER UNIT CHARGE SQ SCH ×2 (09:00→20:46)
[2023-01-28] MEDS: THIAMINE HCL 100 MG TAB PO SCH (09:00)
--- NOTE | 2023-01-28 12:16 | Cardiology Progress Note ---
Date of Service January 28, 2023 Assessment & Plan (1) Acute heart failure with preserved ejection fraction (HFpEF): (2) Permanent atrial fibrillation: Plan This is a 72 year old female with a pmhx of HFpEF, morbid obesity, COPD, CVA, who was admitted for urinary symptoms and found to have sepsis 2/2 a complicated UTI/infected kidney stone now s/p stent. She also was found to have acute on chronic decompensated HFpEF. 1. Acute Exacerbation of HFpEF -per review of outpatient cardio note from 2021, pt on chronic diltiazem and has chronic LE edema -Continue furosemide, increase dose to 20 mg IV TID 2. Permanent atrial fibrillation -continue beta patsy and CCB for now. -Eliquis on hold due to hematuria which seems to have resolved. -She is on Pyridium -h/o CVA so need to attempt to limit duration off Eliquis and will resume it this evening. Differ treatment of cellulitis / UTI to hospitalist service. DVT prophylaxis: resume Eliquis Admission and Anticipated Discharge Date Admission Date: January 23, 2023 Subjective Most significant subjective complaint is left hip pain. She has chronic hip pain , but worse since cystoscopy. Telemetry reveals rate controlled AF. Miller draining clear orange tinged urine. Physical Exam Physical Exam: Morbid obesity. NAD. AAOx3 Eyes: PERRL, conjunctivae normal, anicteric sclerae Cardiovascular: Rate/Rhythm: + irregularly irregular; not tachycardic Extremities: + edema (1-2+ bilateral lower extremity edema) Chest (Breasts): Chest: normal inspection of chest Gastrointestinal (Abdomen): normal bowel sounds, soft, nontender, no hepatosplenomegaly Psychiatric: A+Ox3, euthymic affect Results & Data Vital Signs (Past 12 Hours) Vital Signs Temp Pulse Pulse Resp BP Pulse Ox O2 Del Method 01/28/23 10:58 36.7 C 82 18 136/83 93 Nasal Cannula 01/28/23 07:43 75 01/28/23 07:21 Nasal Cannula 01/28/23 07:15 36.6 C 70 20 136/81 95 Nasal Cannula 01/28/23 03:52 74 21 129/85 93 CPAP 01/28/23 02:08 74 21 92 O2 Flow Rate 01/28/23 10:58 2.0 01/28/23 07:43 01/28/23 07:21 2 01/28/23 07:15 2.0 01/28/23 03:52 01/28/23 02:08 5 Laboratory Results Comprehensive Metabolic Panel 01/28/23 Range/Units 06:14 Sodium 137 (136-145) mmol/L Potassium 4.3 (3.5-5.1) mmol/L Chloride 100 (98-107) mmol/L Carbon Dioxide 28 (21-32) mmol/L BUN 28 H (6-23) mg/dl Creatinine 0.84 (0.6-1.2) mg/dl Glucose 243 H (70-99(Fasting)) mg/dl Calcium 10.0 (8.6-10.3) mg/dl Intake and Output 01/27/23 01/28/23 01/28/23 22:59 06:59 14:59 Intake Total 340 / 1140 Output Total 625 / 1125 Balance -285 / 15 Intake: Oral 340 / 1140 Output: Urine Amount (Catheter) 625 / 1125 Miller/Indwelling 625 / 1125 Other: Weight 153.428 kg Weight Measurement Method Built in [facility]
--- NOTE | 2023-01-28 14:46 | Pharmacy Report ---
Pharmacy Glycemic Short Note 2 - Date of Service January 28, 2023 - Glycemic Short BSG Results (Last 24 hours): 01/27/23 01/27/23 01/28/23 16:26 20:39 06:14 Glucose 243 H POC Glucose 228 H 277 H 01/28/23 01/28/23 07:12 11:01 Glucose POC Glucose 254 H 265 H OUTPATIENT ANTIDIABETIC REGIMEN: * Basaglar 65units SQ BID * Novolog 20-25 units BIDM * metformin 1gm PO BID * Ozempic 2mg SQ weekly HbA1C: 8.5% ASSESSMENT: 01/28/23: * Tiffanie received 191 units of insulin yesterday of which 118 were basal * Fasting BSG elevated this AM, increase basal insulin by 10% back to home dosage * She continues on PO antibiotics, no additional glycemic stressors noted at this time * All BSGs over 200, tightened Novolog parameters further 01/27/23: * Pt is a 72 year old female admitted 01/23 with sepsis in the setting of an infected renal stone. History of DM2 on insulin, metformin and Ozempic at home. BSGs have remained elevated since admission. Pharmacy consulted to assist with glycemic management. * BSGs [phone]/dl the last 24h. Fasting BSG persistently elevated. Received 100 units of basal and 64 units of bolus insulin yesterday (titrated from 90 units and 42 units of bolus 01/25). * Tolerating diet and receiving PO antibiotics. * Further titrate basal today for total 60 units this AM and 58 units BID starting tonight. Novolog tightened to 12/4. PLAN FOR INPATIENT GLYCEMIC CONTROL: * Hold outpatient oral diabetes medications * Basal insulin * Lantus 65 units BID * Bolus insulin * NovoLog per scale ACHS or Q6hrs while NPO * Goal Range: Low 110 mg/dL - High 140 mg/dL * Correction Factor: 8 mg/dL/unit * Nutritional / Prandial insulin per carb ratio of 1 unit per 2.5 grams CHO consumed
[2023-01-28] MEDS: DOXYCYCLINE HYCLATE 100 MG CAP PO SCH (20:28)
[2023-01-28] MEDS: APIXABAN 5 MG TABLET PO SCH (20:30)
[2023-01-28] MEDS: LIDOCAINE 5% 1 PATCH TD SCH (22:01)
[2023-01-28] MEDS: TAMSULOSIN HCL 0.4 MG CAP PO SCH (22:15)
[2023-01-29] MEDS: oxyCODONE HCL IR 5 MG TAB (IMMEDIATE RELEASE) PO PRN ×3 (00:47→17:27)
[2023-01-29] MEDS: ACETAMINOPHEN 500 MG TAB PO SCH (06:09)
[2023-01-29] MEDS: TROLAMINE SALICYLATE 10% CRM 255 APPLN/85 GM TUBE EXT PRN (06:10)
[2023-01-29 06:18] LABS: Hematocrit (blood only) 32.8 % (37.0-47.0); Hemoglobin 10.4 g/dl (12.0-16.0); Mean Corpuscular Hemoglobin 27.3 pg (25.0-34.0); Mean Corpuscular Hgb Conc 31.7 g/dL (32.0-36.0); Mean Corpuscular Volume 86.1 fL (80.0-100.0); Mean Platelet Volume 10.2 fL (9.4-12.4); Nucleated RBC # (auto) 0.03 K/uL (0.00-0.12); Nucleated RBC % (auto) 0.3 %; Platelet Count 195 K/uL (130-400); RDW Coefficient of Variation 16.2 % (11.5-14.5); RDW Standard Deviation 51.4 fL (36.4-46.3); Red Blood Count 3.81 M/uL (4.20-5.40); White Blood Count 8.64 K/ul (4.8-10.8)
[2023-01-29 06:42] LABS: BUN Creatinine Ratio 32.6 (10-20); Calcium 9.3 mg/dl (8.6-10.3); Creatinine Clr Calc Pharmacy 88.7 ml/min; Est GFR (African American) 76.1 ml/min; Est GFR (Non-African American) 65.7 ml/min; Magnesium 1.5 mg/dl (1.7-2.4); Phosphorus 4.1 mg/dl (2.5-4.9); Potassium 4.1 mmol/L (3.5-5.1)
[2023-01-29] MEDS: FUROSEMIDE INJ 20 MG/2 ML VIAL IV SCH ×2 (09:12→12:08)
[2023-01-29] MEDS ORDERED: MAGNESIUM SULFATE / D5W 1 GM/100 ML BAG IV ONE (09:15)
[2023-01-29] MEDS: FAMOTIDINE 20 MG TAB PO SCH (09:24)
[2023-01-29] MEDS: METOPROLOL TARTRATE 25 MG TAB PO SCH (09:24)
[2023-01-29] MEDS: APIXABAN 5 MG TABLET PO SCH ×2 (09:25→20:41)
[2023-01-29] MEDS: CIPROFLOXACIN 500 MG TAB PO SCH ×2 (09:25→20:39)
[2023-01-29] MEDS: guaiFENesin 600 MG TABCR PO SCH ×2 (09:26→20:53)
[2023-01-29] MEDS: ATORVASTATIN 40 MG TAB PO SCH (09:26)
[2023-01-29] MEDS: DOXYCYCLINE HYCLATE 100 MG CAP PO SCH ×2 (09:26→20:53)
[2023-01-29] MEDS: MONTELUKAST SODIUM 10 MG TABLET PO SCH (09:27)
[2023-01-29] MEDS: dilTIAZem HCL 180 MG CAPCR PO SCH (09:27)
[2023-01-29] MEDS: PANTOprazole 40 MG TAB PO SCH (09:27)
[2023-01-29] MEDS: PHENAZOPYRIDINE HCL 100 MG TAB PO SCH ×3 (09:28→20:48)
[2023-01-29] MEDS: POLYETHYLENE (MIRALAX) 17 GM PACK PO SCH (09:29)
[2023-01-29] MEDS: THIAMINE HCL 100 MG TAB PO SCH (09:29)
[2023-01-29] MEDS: LANTUS PER UNIT CHARGE SQ SCH ×2 (09:30→21:43)
[2023-01-29] MEDS: INSULIN ASPART PER UNIT CHARGE SC SCH ×4 (09:38→21:44)
[2023-01-29] MEDS: IPRATROPIUM BROMIDE NASAL SPRAY 0.06% 15ML NAE SCH ×2 (10:06→20:52)
[2023-01-29] MEDS: MAGNESIUM OXIDE 400 MG TAB PO SCH (10:07)
--- NOTE | 2023-01-29 13:57 | Hospitalist Progress Note ---
Date of Service January 29, 2023 Assessment & Plan (1) Ureteral calculus, right: (2) Acute heart failure with preserved ejection fraction (HFpEF): (3) Hydronephrosis with renal and ureteral calculous obstruction: (4) Morbid obesity: (5) Bipolar disorder: (6) Arthritis: (7) REENA (obstructive sleep apnea): (8) Paroxysmal atrial fibrillation: (9) Diabetes mellitus, type II: Plan 72 y/o F with PMH HTN, HLD, DM II, COPD, paroxysmal atrial fibrillation chronically anticoagulated on Eliquis, chronic diastolic heart failure, RBBB, CVA, kidney stones, bipolar disorder, REENA, morbid obesity presented to ER with multiple medical complaints.This is being managed for the following: Acute on chronic diastolic heart failure History of noncompliance, patient was dyspneic at presentation 2020 TTE with EF of 55 to 59%. Admitting BNP 156. Admitting echo with EF of 55 to 60%, no LV segmental wall motion abnormality. Diastolic dysfunction. Troponin negative at presentation. Admitting CXR with pulmonary edema. No airspace consolidation. CT chest with no PE. Volume overload secondary to noncompliance in the setting of acute sepsis. Strict I's and O's, cardiology on board, managing diuresis. Continue telemetry monitoring. Increase IV furosemide to 40 mg IV twice daily next dose due at 2100 tonight. Stop diltiazem. Per cardiology - Reviewed outpatient medication regimen. Patient has been on diltiazem starting at a dose of 120 mg since 2018. Metoprolol tartrate was titrated to 75 mg twice daily in 2020. I am concerned that diltiazem is contributing to her chronic lower extremity edema. I think now is a good time to attempt to titrate the beta-patsy and we will therefore replace metoprolol tartrate 75 mg twice daily with metoprolol succinate 100 mg twice daily. Stop diltiazem. Increase IV furosemide to 40 mg IV twice daily next dose due at 2100 tonight. Future considerations include transitioning to torsemide at discharge. Patient with history of yeast infections and recurrent UTI, likely a poor candidate therefore for treatment with an SGLT2 inhibitor. Was on lisinopril in April, stopped due to dizziness. Partially treated complicated UTI Infected renal stone/obstructive uropathy Severe sepsis POA: Secondary to above. SIRS positive, lactic acid elevation at presentation. Hematuria: Secondary to obstructive uropathy Patient came in with complaint of urinary frequency, dysuria in the setting of recent multiple courses of outpatient treatment for UTI. +LLE cellulitis - started PO doxy Admitting CTAP with obstructing 6 x 5 mm stone in the right proximal ureter and nonobstructing 5 mm right mid pole renal stone. Patient started on aztreonam and daptomycin. Blood cultures are negative and there are no UA or Ucx this admission to reflect a specific pathogen. Outpatient records reveal no recent infection or culture data. De-escalate abx to PO Cipro on 01/26 Status post cystoscopy and right ureteral stent placement by urology 01/24/2023. Post operatively she reports acute left hip pain that is TTP of lateral area over GTB. Left CT hip reveals no acute fracture or dislocation. She is requiring narcotic therapy. Pain still present despite Toradol overnight. Cont to encourage her to get out of bed and ambulate. PT and OT are seeing her. Will need follow-up with urology on discharge. Other chronic medical conditions: Continue with/resume home meds as and when able. hypertension, stable hyperlipidemia on statin Rx, held d/t pt being on dapto. can resume PAF: Resumed Eliquis history CVA as per records COPD, not in acute exacerbation REENA on CPAP DM2 insulin requiring, suboptimal control as of recent hemoglobin A1c of 9.06 September 2022, a1c 8.5 this admission. ? 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 tightened correction factor. mood disorder, very anxious regarding hip pain which was improved with Ativan (per previous provider). Cont PRN severe anxiety. past tobacco abuse hx MRSA morbid obesity DVT ppx - eliquis Full code Admission and Anticipated Discharge Date Admission Date: January 23, 2023 Subjective 72-year-old female presented with sepsis secondary to UTI, resuscitated. She underwent cystoscopy with a right ureteral stent insertion on 01/24. Hematuria resolved yesterday and pt was restarted on eliquis - mild hematuria again noted today, pt is on pyridium. Still reports left hip pain. She continues to require oxygen supplementation, breathing comfortably. No fever, chills, chest pain. Cardiology following closely. Review of Systems Review of Systems: All systems reviewed & are unremarkable except as noted in Subjective Physical Exam Physical Exam: CONSTITUTIONAL: obese F in NAD, on suppl. O2 EYES: normal conjunctivae, no scleral icterus ENT: external ear and nose normal, oropharynx clear, MMM NECK: trachea midline RESPIRATORY: clear to auscultation bilaterally, no crackles, rales or wheezes, normal respiratory effort CARDIOVASCULAR: regular rate and rhythm, S1 and 2 heard without murmurs, gallops or rubs, no JVD, no peripheral edema CHEST: inspection of chest was normal GASTROINTESTINAL: soft, nontender, ND no guarding, + obese abdomen. MUSCULOSKELETAL: head is normocephalic and atraumatic, moves extremities, + LLE erythema SKIN: warm and dry, no rashes NEURO/PSYCH: awake, alert, answers appropriately, no facial asymmetry, speech fluent, moves extremities Results & Data Results & Data Vital Signs (Past 12 Hours) Vital Signs Temp Pulse Pulse Resp BP Pulse Ox O2 Del Method 01/29/23 11:31 36.3 C L 77 18 144/88 H 98 Nasal Cannula 01/29/23 07:45 36.4 C L 95 H 18 156/87 H 96 Nasal Cannula 01/29/23 07:43 77 01/29/23 04:37 36.7 C 86 22 129/75 93 Nasal Cannula O2 Flow Rate 01/29/23 11:31 3.0 01/29/23 07:45 3.0 01/29/23 07:43 01/29/23 04:37 3 Laboratory Results 01/29/23 01/29/23 01/29/23 Range/Units 11:31 07:45 05:55 WBC (4.8-10.8) K/ul RBC (4.20-5.40) M/uL Hgb (12.0-16.0) g/dl Hct (37.0-47.0) % MCV (80.0-100.0) fL MCH (25.0-34.0) pg MCHC (32.0-36.0) g/dL RDW Std Deviation (36.4-46.3) fL RDW Coeff of [place] (11.5-14.5) % Plt Count (130-400) K/uL MPV (9.4-12.4) fL Absolute Nucleated RBC (0.00-0.12) K/uL Nucleated RBC % (auto) % Sodium 138 (136-145) mmol/L Potassium 4.1 (3.5-5.1) mmol/L Chloride 98 (98-107) mmol/L Carbon Dioxide 32 (21-32) mmol/L Anion Gap 8 (3-11) BUN 29 H (6-23) mg/dl Creatinine 0.89 (0.6-1.2) mg/dl Est Cr Clr Drug Dosing 88.7 ml/min Est GFR ( Amer) 76.1 ml/min Est GFR (Non-Af Amer) 65.7 ml/min BUN/Creatinine Ratio 32.6 H (10-20) Glucose 250 H (70-99(Fasting)) mg/dl POC Glucose 322 H* 241 H (70-99) mg/dl Calcium 9.3 (8.6-10.3) mg/dl Phosphorus 4.1 (2.5-4.9) mg/dl Magnesium 1.5 L (1.7-2.4) mg/dl 01/29/23 01/28/23 01/28/23 Range/Units 05:55 20:08 16:22 WBC 8.64 (4.8-10.8) K/ul RBC 3.81 L (4.20-5.40) M/uL Hgb 10.4 L (12.0-16.0) g/dl Hct 32.8 L (37.0-47.0) % MCV 86.1 (80.0-100.0) fL MCH 27.3 (25.0-34.0) pg MCHC 31.7 L (32.0-36.0) g/dL RDW Std Deviation 51.4 H (36.4-46.3) fL RDW Coeff of [place] 16.2 H (11.5-14.5) % Plt Count 195 (130-400) K/uL MPV 10.2 (9.4-12.4) fL Absolute Nucleated RBC 0.03 (0.00-0.12) K/uL Nucleated RBC % (auto) 0.3 % Sodium (136-145) mmol/L Potassium (3.5-5.1) mmol/L Chloride (98-107) mmol/L Carbon Dioxide (21-32) mmol/L Anion Gap (3-11) BUN (6-23) mg/dl Creatinine (0.6-1.2) mg/dl Est Cr Clr Drug Dosing ml/min Est GFR ( Amer) ml/min Est GFR (Non-Af Amer) ml/min BUN/Creatinine Ratio (10-20) Glucose (70-99(Fasting)) mg/dl POC Glucose 225 H 207 H (70-99) mg/dl Calcium (8.6-10.3) mg/dl Phosphorus (2.5-4.9) mg/dl Magnesium (1.7-2.4) mg/dl Medications Administered Current Inpatient Medications Acetaminophen (Acetaminophen 500 Mg Tab) 1,000 mg PO Q8 PRN PRN Reason: Pain or Fever Stop: 02/24/23 15:15 Albuterol (Albuterol 0.5% Neb Soln 2.5 Mg/0.5 Ml Vial) 2.5 mg NEB Q6R PRN; Protocol PRN Reason: sob/wheezing Stop: 02/26/23 00:59 Apixaban (Apixaban 5 Mg Tablet) 10 mg PO BID [facility] Stop: 02/04/23 09:01 Last Admin: 01/29/23 09:25 Dose: 10 mg Atorvastatin Calcium (Atorvastatin 40 Mg Tab) 40 mg PO DAILY [facility] Stop: 02/23/23 08:59 Last Admin: 01/29/23 09:26 Dose: 40 mg Ciprofloxacin (Ciprofloxacin 500 Mg Tab) 500 mg PO BID [facility]; Protocol Stop: 01/30/23 09:01 Last Admin: 01/29/23 09:25 Dose: 500 mg Dextrose (Dextrose 50% 50 Ml Syringe) 25 - 50 ml IV UD PRN; Protocol PRN Reason: Hypoglycemia Protocol Stop: 02/22/23 23:57 Diltiazem HCl (Diltiazem Hcl 180 Mg Capcr) 180 mg PO DAILY [facility] Stop: 02/23/23 04:29 Last Admin: 01/29/23 09:27 Dose: 180 mg Doxycycline Hyclate (Doxycycline Hyclate 100 Mg Cap) 100 mg PO BID [facility] Stop: 02/04/23 20:59 Last Admin: 01/29/23 09:26 Dose: 100 mg Famotidine (Famotidine 20 Mg Tab) 20 mg PO DAILY [facility] Stop: 02/23/23 08:59 Last Admin: 01/29/23 09:24 Dose: 20 mg Furosemide (Furosemide Inj 20 Mg/2 Ml Vial) 20 mg IV TIDM [facility] Stop: 02/26/23 13:59 Last Admin: 01/29/23 12:08 Dose: 20 mg Glucagon (Glucagon For Inj 1 Mg Vial) 1 mg SQ UD PRN; Protocol PRN Reason: Hypoglycemia Protocol Stop: 02/22/23 23:57 Glucose (Glucose 10 Tab/Tube) 4 - 8 tab PO UD PRN; Protocol PRN Reason: Hypoglycemia Treatment Stop: 02/22/23 23:57 Glucose (Glucose 40% Gel 15 Gm Tube) 15 - 30 gm PO UD PRN; Protocol PRN Reason: Hypoglycemia Protocol Stop: 02/22/23 23:57 Glycerin (Glycerin Adult 12 Supp/Box Supp) 1 supp ND Q24H PRN PRN Reason: Constipation Stop: 02/26/23 18:57 Guaifenesin (Guaifenesin 600 Mg Tabcr) 600 mg PO Q12 [facility] Stop: 02/25/23 20:59 Last Admin: 01/29/23 09:26 Dose: 600 mg Promethazine HCl 12.5 mg/ (Sodium Chloride) 50.5 mls @ 202 mls/hr IV Q6H PRN PRN Reason: Nausea And Vomiting Stop: 02/22/23 22:28 Insulin Aspart (Insulin Aspart Per Unit Charge) 0 units SC ACHS [facility]; Protocol Stop: 02/23/23 13:29 Last Admin: 01/29/23 13:04 Dose: 42 units Insulin Glargine (Lantus Per Unit Charge) 65 units SQ BID [facility] Stop: 02/23/23 08:59 Last Admin: 01/29/23 09:30 Dose: 65 units Ipratropium [place] (Ipratropium [place] Nasal [place] 0.06% 15ml) 1 sprays ANIBAL AMHS [facility] Stop: 02/23/23 08:59 Last Admin: 01/29/23 10:06 Dose: 1 sprays Lidocaine (Lidocaine 5% 1 Patch) 2 patch TD HS [facility] Stop: 02/25/23 20:59 Last Admin: 01/28/23 22:01 Dose: 2 patch Lorazepam (Lorazepam 0.5 Mg Tab) 0.5 mg PO Q8H PRN PRN Reason: Anxiety Stop: 02/24/23 16:21 Last Admin: 01/25/23 16:51 Dose: 0.5 mg Magnesium Oxide (Magnesium Oxide 400 Mg Tab) 400 mg PO QAM [facility] Stop: 02/28/23 08:59 Last Admin: 01/29/23 10:07 Dose: 400 mg Metoprolol Tartrate (Metoprolol Tartrate 25 Mg Tab) 75 mg PO BID [facility] Stop: 02/23/23 08:59 Last Admin: 01/29/23 09:24 Dose: 75 mg Miconazole Nitrate (Miconazole Nitrate Powder 85 Gm) 1 appln EXT BID PRN PRN Reason: skin fold irritation Stop: 02/24/23 17:57 Miscellaneous (Carbohydrates For Hypoglycemia ) 15 - 30 gm PO UD PRN PRN Reason: Hypoglycemia Protocol Stop: 02/22/23 23:57 Miscellaneous (Remove Lidoderm Patch) 2 each N/A QAM [facility] Stop: 02/23/23 10:59 Last Admin: 01/29/23 09:28 Dose: 2 each Miscellaneous Information (Pharmacy Glycemic Mgmt Consult) 1 each N/A UD PRN; Protocol PRN Reason: Consult Stop: 02/26/23 10:28 Montelukast Sodium (Montelukast Sodium 10 Mg Tablet) 10 mg PO DAILY [facility] Stop: 02/23/23 08:59 Last Admin: 01/29/23 09:27 Dose: 10 mg Nitroglycerin (Nitroglycerin Sl 0.4 Mg/Tab Tab) 0.4 mg SL Q5M PRN PRN Reason: Chest Pain Stop: 02/22/23 23:57 Oxycodone HCl (Oxycodone Hcl Ir 5 Mg Tab (Immediate Release)) 5 mg PO Q6H PRN PRN Reason: severe pain 7-10 Stop: 02/08/23 15:14 Last Admin: 01/29/23 09:23 Dose: 5 mg Pantoprazole Sodium (Pantoprazole 40 Mg Tab) 40 mg PO DAILY [facility] Stop: 02/23/23 08:59 Last Admin: 01/29/23 09:27 Dose: 40 mg Phenazopyridine HCl (Phenazopyridine Hcl 100 Mg Tab) 100 mg PO TID [facility] Stop: 02/24/23 15:29 Last Admin: 01/29/23 09:28 Dose: 100 mg Polyethylene Glycol (Polyethylene (Miralax) 17 Gm Pack) 17 gm PO DAILY [facility] Stop: 02/26/23 18:59 Last Admin: 01/29/23 09:29 Dose: 17 gm Tamsulosin HCl (Tamsulosin Hcl 0.4 Mg Cap) 0.4 mg PO HS [facility] Stop: 02/23/23 20:59 Last Admin: 01/28/23 22:15 Dose: 0.4 mg Thiamine HCl (Thiamine Hcl 100 Mg Tab) 100 mg PO QAM [facility] Stop: 01/30/23 09:01 Last Admin: 01/29/23 09:29 Dose: 100 mg Tramadol HCl (Tramadol Hcl 50 Mg Tablet) 25 - 50 mg PO Q4H PRN PRN Reason: Pain Stop: 02/22/23 22:28 Last Admin: 01/25/23 10:32 Dose: 50 mg Trolamine Salicylate (Trolamine Salicylate 10% Crm 255 Appln/85 Gm Tube) 1 appln EXT TID PRN PRN Reason: joint pain Stop: 02/24/23 15:15 Last Admin: 01/29/23 06:10 Dose: 1 appln
--- NOTE | 2023-01-29 14:45 | Cardiology Progress Note ---
Date of Service January 29, 2023 Assessment & Plan (1) Acute heart failure with preserved ejection fraction (HFpEF): (2) Permanent atrial fibrillation: Plan This is a 72 year old female with a pmhx of HFpEF, morbid obesity, COPD, CVA, who was admitted for urinary symptoms and found to have sepsis 2/2 a complicated UTI/infected kidney stone now s/p stent. She also was found to have acute on chronic decompensated HFpEF. 1. Acute Exacerbation of HFpEF -per review of outpatient cardio note from 2021, pt on chronic diltiazem and has chronic LE edema -Continue furosemide, increase dose to 20 mg IV TID 2. Permanent atrial fibrillation -continue beta patsy and CCB for now. -Eliquis on hold due to hematuria which seems to have resolved. -She is on Pyridium -h/o CVA so need to attempt to limit duration off Eliquis and will resume it this evening. Differ treatment of cellulitis / UTI to hospitalist service. DVT prophylaxis: resume Eliquis Admission and Anticipated Discharge Date Admission Date: January 23, 2023 Subjective Patient seen in cardiology follow-up. Hip pain improved today. Miller catheter in place draining clear urine, has not orange tint likely from Pyridium, no hematuria. Telemetry reveals atrial fibrillation in the 70s to 80s. Physical Exam Physical Exam: Morbid obesity. NAD. AAOx3 Eyes: PERRL, conjunctivae normal, anicteric sclerae Cardiovascular: Rate/Rhythm: + irregularly irregular; not tachycardic Extremities: + edema (1-2+ bilateral lower extremity edema) Chest (Breasts): Chest: normal inspection of chest Gastrointestinal (Abdomen): normal bowel sounds, soft, nontender, no hepatosplenomegaly Psychiatric: A+Ox3, euthymic affect Results & Data Vital Signs (Past 12 Hours) Vital Signs Temp Pulse Pulse Resp BP Pulse Ox O2 Del Method 01/29/23 11:31 36.3 C L 77 18 144/88 H 98 Nasal Cannula 01/29/23 07:45 36.4 C L 95 H 18 156/87 H 96 Nasal Cannula 01/29/23 07:43 77 01/29/23 04:37 36.7 C 86 22 129/75 93 Nasal Cannula O2 Flow Rate 01/29/23 11:31 3.0 01/29/23 07:45 3.0 01/29/23 07:43 10/26/23 04:37 3 Laboratory Results CBC 01/29/23 Range/Units 05:55 WBC 8.64 (4.8-10.8) K/ul RBC 3.81 L (4.20-5.40) M/uL Hgb 10.4 L (12.0-16.0) g/dl Hct 32.8 L (37.0-47.0) % Plt Count 195 (130-400) K/uL Comprehensive Metabolic Panel 01/29/23 Range/Units 05:55 Sodium 138 (136-145) mmol/L Potassium 4.1 (3.5-5.1) mmol/L Chloride 98 (98-107) mmol/L Carbon Dioxide 32 (21-32) mmol/L BUN 29 H (6-23) mg/dl Creatinine 0.89 (0.6-1.2) mg/dl Glucose 250 H (70-99(Fasting)) mg/dl Calcium 9.3 (8.6-10.3) mg/dl Intake and Output 01/28/23 01/29/23 01/29/23 22:59 06:59 14:59 Intake Total 600 / 1080 100 / 100 Output Total 950 / 3954 1304 / 3954 Balance -950 / -2874 -704 / -2874 100 / 100 Intake: IV 100 / 100 Magnesium Sulfate / D5w 1 gm In 100 / 100 100 ml @ 50 mls/hr IV ONE ONE Rx#:[id number] Oral 600 / 1080 Output: Urine Amount (Catheter) 950 / 3950 1300 / 3950 Miller/Indwelling 950 / 3950 1300 / 3950 # Bowel Movements 4 / 4 Other: Weight 153.428 kg Weight Measurement Method Built in [facility]
[2023-01-29] MEDS: METOPROLOL SUCC 50MG EXT REL TAB PO SCH (20:40)
[2023-01-29] MEDS: TAMSULOSIN HCL 0.4 MG CAP PO SCH (20:42)
[2023-01-29] MEDS: FUROSEMIDE 40 MG/4 ML VIAL IV SCH (20:44)
[2023-01-29] MEDS: LIDOCAINE 5% 1 PATCH TD SCH (20:48)
[2023-01-29] MEDS: ACETAMINOPHEN 500 MG TAB PO PRN (21:48)
[2023-01-30] MEDS: oxyCODONE HCL IR 5 MG TAB (IMMEDIATE RELEASE) PO PRN ×2 (01:03→19:32)
[2023-01-30] MEDS: TROLAMINE SALICYLATE 10% CRM 255 APPLN/85 GM TUBE EXT PRN (03:02)
[2023-01-30] MEDS: LORazepam 0.5 MG TAB PO PRN (03:07)
[2023-01-30 07:09] LABS: Hemoglobin 10.7 g/dl (12.0-16.0); Mean Corpuscular Hemoglobin 27.2 pg (25.0-34.0); Mean Corpuscular Hgb Conc 31.5 g/dL (32.0-36.0); Mean Corpuscular Volume 86.5 fL (80.0-100.0); Mean Platelet Volume 10.5 fL (9.4-12.4); Nucleated RBC # (auto) 0.02 K/uL (0.00-0.12); Nucleated RBC % (auto) 0.2 %; Platelet Count 218 K/uL (130-400); RDW Coefficient of Variation 16.4 % (11.5-14.5); RDW Standard Deviation 52.1 fL (36.4-46.3); Red Blood Count 3.93 M/uL (4.20-5.40); White Blood Count 9.16 K/ul (4.8-10.8)
[2023-01-30 07:13] LABS: Calcium 9.2 mg/dl (8.6-10.3); Est GFR (African American) 66.1 ml/min; Magnesium 1.5 mg/dl (1.7-2.4); Phosphorus 4.5 mg/dl (2.5-4.9); Potassium 4.1 mmol/L (3.5-5.1)
[2023-01-30] MEDS: POLYETHYLENE (MIRALAX) 17 GM PACK PO SCH (08:05)
[2023-01-30] MEDS: INSULIN ASPART PER UNIT CHARGE SC SCH ×5 (08:54→23:56)
[2023-01-30] MEDS: LANTUS PER UNIT CHARGE SQ SCH ×2 (08:55→21:07)
[2023-01-30] MEDS ORDERED: MAGNESIUM SULFATE / D5W 1 GM/100 ML BAG IV ONE (09:39)
[2023-01-30] MEDS: guaiFENesin 600 MG TABCR PO SCH ×2 (09:46→21:06)
[2023-01-30] MEDS: ATORVASTATIN 40 MG TAB PO SCH (09:47)
[2023-01-30] MEDS: PHENAZOPYRIDINE HCL 100 MG TAB PO SCH ×3 (09:47→21:10)
[2023-01-30] MEDS: FAMOTIDINE 20 MG TAB PO SCH (09:48)
[2023-01-30] MEDS: DOXYCYCLINE HYCLATE 100 MG CAP PO SCH ×2 (09:48→21:05)
[2023-01-30] MEDS: THIAMINE HCL 100 MG TAB PO SCH (09:49)
[2023-01-30] MEDS: APIXABAN 5 MG TABLET PO SCH ×2 (09:49→21:05)
[2023-01-30] MEDS: CIPROFLOXACIN 500 MG TAB PO SCH (09:51)
[2023-01-30] MEDS: MONTELUKAST SODIUM 10 MG TABLET PO SCH (09:52)
[2023-01-30] MEDS: PANTOprazole 40 MG TAB PO SCH (09:52)
[2023-01-30] MEDS: METOPROLOL SUCC 50MG EXT REL TAB PO SCH ×2 (09:53→21:09)
[2023-01-30] MEDS: FUROSEMIDE 40 MG/4 ML VIAL IV SCH ×2 (09:55→21:06)
[2023-01-30] MEDS: IPRATROPIUM BROMIDE NASAL SPRAY 0.06% 15ML NAE SCH ×2 (10:02→21:23)
[2023-01-30] MEDS: MAGNESIUM OXIDE 400 MG TAB PO SCH ×2 (10:50→21:08)
--- NOTE | 2023-01-30 11:48 | Cardiology Progress Note ---
Date of Service January 30, 2023 Assessment & Plan (1) Acute heart failure with preserved ejection fraction (HFpEF): (2) Permanent atrial fibrillation: Plan This is a 72 year old female with a pmhx of HFpEF, morbid obesity, COPD, CVA, who was admitted for urinary symptoms and found to have sepsis 2/2 a complicated UTI/infected kidney stone now s/p stent. She also was found to have acute on chronic decompensated HFpEF. 1. Acute Exacerbation of HFpEF -per review of outpatient cardio note from 2021, pt on chronic diltiazem and has chronic LE edema -Continue furosemide, 40 mg IV BID (dose escalated on 01/29) 2. Permanent atrial fibrillation -She is on Pyridium -Eliquis resumed on 01/28, appropriate dose for her is 5 mg BID. Reviewed outpatient medication regimen. Patient has been on diltiazem starting at a dose of 120 mg since 2017. Metoprolol tartrate was titrated to 75 mg twice daily in 2020. I am concerned that diltiazem is contributing to her chronic lower extremity edema. I think now is a good time to attempt to titrate the beta-patsy and we will therefore replace metoprolol tartrate 75 mg twice daily with metoprolol succinate 100 mg twice daily. Oral Diltiazem stopped afternoon on 01/29. Metoprolol changed from tartrate 75 mg BID to succinate 100 mg BID. Future considerations include transitioning to torsemide at discharge. Patient with history of yeast infections and recurrent UTI, likely a poor candidate therefore for treatment with an SGLT2 inhibitor. Was on lisinopril in April, stopped due to dizziness. Differ treatment of cellulitis / UTI to hospitalist service. Left leg cellulitis improved. Antibiotics de-escalated to oral cipro. DVT prophylaxis: Eliquis Admission and Anticipated Discharge Date Admission Date: January 23, 2023 Subjective Patient without acute complaint. Sitting in beside chair. Miller catheter draining clear urine. telemetry reveals AF in the 80s. Physical Exam Physical Exam: Morbid obesity. NAD. AAOx3 Eyes: PERRL, conjunctivae normal, anicteric sclerae Cardiovascular: Rate/Rhythm: + irregularly irregular; not tachycardic Extremities: + edema (1-2+ bilateral lower extremity edema) Chest (Breasts): Chest: normal inspection of chest Gastrointestinal (Abdomen): normal bowel sounds, soft, nontender, no hepatosplenomegaly Psychiatric: A+Ox3, euthymic affect Results & Data Vital Signs (Past 12 Hours) Vital Signs Temp Pulse Pulse Resp BP Pulse Ox O2 Del Method 01/30/23 10:52 94 Nasal Cannula 01/30/23 10:40 95 Nasal Cannula 01/30/23 11:33 90 Nasal Cannula 01/30/23 11:29 36.6 C 90 24 109/71 86 L Room Air 01/30/23 07:48 36.4 C L 95 H 20 136/81 91 Nasal Cannula 01/30/23 07:18 72 01/30/23 03:41 36.3 C L 93 H 23 165/84 H 92 Nasal Cannula 01/30/23 02:13 90 15 92 01/30/23 00:09 102 H O2 Flow Rate 01/30/23 10:52 1 01/30/23 10:40 2 01/30/23 11:33 1 01/30/23 11:29 01/30/23 07:48 3.0 01/30/23 07:18 01/30/23 03:41 3 01/30/23 02:13 3 01/30/23 00:09
--- NOTE | 2023-01-30 12:00 | Pharmacy Report ---
Pharmacy Glycemic Short Note 2 - Date of Service January 30, 2023 - Glycemic Short BSG Results (Last 24 hours): 01/29/23 01/29/23 01/30/23 16:22 19:34 06:08 Glucose 314 H* POC Glucose 194 H 195 H 01/30/23 01/30/23 07:45 11:21 Glucose POC Glucose 392 H* 388 H* OUTPATIENT ANTIDIABETIC REGIMEN: * Basaglar 65units SQ BID * Novolog 20-25 units BIDM * metformin 1gm PO BID * Ozempic 2mg SQ weekly HbA1C: 8.5% ASSESSMENT: 01/30/23: * Patient received 256 units of insulin yesterday, 130 units of which were basal * "Fasting" this morning was 392 mg/dL; however per RN patient had uncovered snacks prior to this, therefore will continue current basal * Patient received 64 units of novolog for correctional this morning, ~0900 which may still be active with the lunch 388 mg/dL check, therefore loosened her correction factor with lunch to avoid stacking (had dropped from 322 to 194 mg/dL yesterday). * Patient having uncovered snacks; will add overnight BSG checks 01/28/23: * Tiffanie received 191 units of insulin yesterday of which 118 were basal * Fasting BSG elevated this AM, increase basal insulin by 10% back to home dosage * She continues on PO antibiotics, no additional glycemic stressors noted at this time * All BSGs over 200, tightened Novolog parameters further 01/27/23: * Pt is a 72 year old female admitted 01/23 with sepsis in the setting of an infected renal stone. History of DM2 on insulin, metformin and Ozempic at home. BSGs have remained elevated since admission. Pharmacy consulted to assist with glycemic management. * BSGs [phone]/dl the last 24h. Fasting BSG persistently elevated. Received 100 units of basal and 64 units of bolus insulin yesterday (titrated from 90 units and 42 units of bolus 01/25). * Tolerating diet and receiving PO antibiotics. * Further titrate basal today for total 60 units this AM and 58 units BID starting tonight. Novolog tightened to 12/4. PLAN FOR INPATIENT GLYCEMIC CONTROL: * Hold outpatient oral diabetes medications * Basal insulin * Lantus 65 units BID * Bolus insulin * NovoLog per scale ACHS or Q6hrs while NPO * Goal Range: Low 110 mg/dL - High 140 mg/dL * Correction Factor: 8 mg/dL/unit- loosened to 12 with lunch today- then back to 8 mg/dL/unit * Nutritional / Prandial insulin per carb ratio of 1 unit per 2 grams CHO consumed
--- NOTE | 2023-01-30 12:23 | Hospitalist Progress Note ---
Date of Service January 30, 2023 Assessment & Plan (1) Ureteral calculus, right: (2) Acute heart failure with preserved ejection fraction (HFpEF): (3) Hydronephrosis with renal and ureteral calculous obstruction: (4) Morbid obesity: (5) Bipolar disorder: (6) Arthritis: (7) REENA (obstructive sleep apnea): (8) Paroxysmal atrial fibrillation: (9) Diabetes mellitus, type II: Plan 72 y/o F with PMH HTN, HLD, DM II, COPD, paroxysmal atrial fibrillation chronically anticoagulated on Eliquis, chronic diastolic heart failure, RBBB, CVA, kidney stones, bipolar disorder, REENA, morbid obesity presented to ER with multiple medical complaints.This is being managed for the following: Acute on chronic diastolic heart failure History of noncompliance, patient was dyspneic at presentation 2020 TTE with EF of 55 to 59%. Admitting BNP 156. Admitting echo with EF of 55 to 60%, no LV segmental wall motion abnormality. Diastolic dysfunction. Troponin negative at presentation. Admitting CXR with pulmonary edema. No airspace consolidation. CT chest with no PE. Volume overload secondary to noncompliance in the setting of acute sepsis. Strict I's and O's, cardiology on board, managing diuresis. Continue telemetry monitoring. Increased IV furosemide to 40 mg IV twice daily Stopped diltiazem. Per cardiology - Reviewed outpatient medication regimen. Patient has been on diltiazem starting at a dose of 120 mg since 2017. Metoprolol tartrate was titrated to 75 mg twice daily in 2020. I am concerned that diltiazem is contributing to her chronic lower extremity edema. I think now is a good time to attempt to titrate the beta-patsy and we will therefore replace metoprolol tartrate 75 mg twice daily with metoprolol succinate 100 mg twice daily. Stop diltiazem. Increase IV furosemide to 40 mg IV twice daily Future considerations include transitioning to torsemide at discharge. Patient with history of yeast infections and recurrent UTI, likely a poor candidate therefore for treatment with an SGLT2 inhibitor. Was on lisinopril in April, stopped due to dizziness. Partially treated complicated UTI Infected renal stone/obstructive uropathy Severe sepsis POA: Secondary to above. SIRS positive, lactic acid elevation at presentation. Hematuria: Secondary to obstructive uropathy Patient came in with complaint of urinary frequency, dysuria in the setting of recent multiple courses of outpatient treatment for UTI. +LLE cellulitis - started PO doxy Admitting CTAP with obstructing 6 x 5 mm stone in the right proximal ureter and nonobstructing 5 mm right mid pole renal stone. Patient started on aztreonam and daptomycin. Blood cultures are negative and there are no UA or Ucx this admission to reflect a specific pathogen. Outpatient records reveal no recent infection or culture data. De-escalate abx to PO Cipro on 01/26 Status post cystoscopy and right ureteral stent placement by urology 01/24/2023. Post operatively she reports acute left hip pain that is TTP of lateral area over GTB. Left CT hip reveals no acute fracture or dislocation. pain med regimen, PT/OT Will need follow-up with urology on discharge. Other chronic medical conditions: Continue with/resume home meds as and when a ble. hypertension, stable hyperlipidemia on statin Rx, held d/t pt being on dapto. can resume PAF: Resumed Eliquis history CVA as per records COPD, not in acute exacerbation REENA on CPAP DM2 insulin requiring, suboptimal control as of recent hemoglobin A1c of 9.06 September 2022, a1c 8.5 this admission. ? 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 tightened correction factor. mood disorder, very anxious regarding hip pain which was improved with Ativan (per previous provider). Cont PRN severe anxiety. past tobacco abuse hx MRSA morbid obesity DVT ppx - eliquis Full code Admission and Anticipated Discharge Date Admission Date: January 23, 2023 Subjective 72-year-old female presented with sepsis secondary to UTI, resuscitated. She underwent cystoscopy with a right ureteral stent insertion on 01/24. Hematuria resolved and pt was restarted on eliquis - now w/mild hematuria again, pt is also on pyridium. She continues to require oxygen supplementation, breathing comfortably. No fever, chills, chest pain. Cardiology following closely. Review of Systems Review of Systems: All systems reviewed & are unremarkable except as noted in Subjective Physical Exam Physical Exam: CONSTITUTIONAL: obese F in NAD, on suppl. O2 EYES: normal conjunctivae, no scleral icterus ENT: external ear and nose normal, oropharynx clear, MMM NECK: trachea midline RESPIRATORY: clear to auscultation bilaterally, no crackles, rales or wheezes, normal respiratory effort CARDIOVASCULAR: regular rate and rhythm, S1 and 2 heard without murmurs, gallops or rubs, no JVD, no peripheral edema CHEST: inspection of chest was normal GASTROINTESTINAL: soft, nontender, ND no guarding, + obese abdomen. MUSCULOSKELETAL: head is normocephalic and atraumatic, moves extremities, + LLE erythema (improved) SKIN: warm and dry, no rashes NEURO/PSYCH: awake, alert, answers appropriately, no facial asymmetry, speech fluent, moves extremities Results & Data Results & Data Vital Signs (Past 12 Hours) Vital Signs Temp Pulse Pulse Resp BP Pulse Ox O2 Del Method 01/30/23 10:52 94 Nasal Cannula 01/30/23 10:40 95 Nasal Cannula 01/30/23 11:33 90 Nasal Cannula 01/30/23 11:29 36.6 C 90 24 109/71 86 L Room Air 01/30/23 07:48 36.4 C L 95 H 20 136/81 91 Nasal Cannula 01/30/23 07:18 72 01/30/23 03:41 36.3 C L 93 H 23 165/84 H 92 Nasal Cannula 01/30/23 02:13 90 15 92 O2 Flow Rate 01/30/23 10:52 1 01/30/23 10:40 2 01/30/23 11:33 1 01/30/23 11:29 01/30/23 07:48 3.0 01/30/23 07:18 01/30/23 03:41 3 01/30/23 02:13 3 Laboratory Results 01/30/23 01/30/23 01/30/23 Range/Units 11:21 07:45 06:08 WBC (4.8-10.8) K/ul RBC (4.20-5.40) M/uL Hgb (12.0-16.0) g/dl Hct (37.0-47.0) % MCV (80.0-100.0) fL MCH (25.0-34.0) pg MCHC (32.0-36.0) g/dL RDW Std Deviation (36.4-46.3) fL RDW Coeff of Juan [place] (11.5-14.5) % Plt Count (130-400) K/uL MPV (9.4-12.4) fL Absolute Nucleated RBC (0.00-0.12) K/uL Nucleated RBC % (auto) % Sodium 138 (136-145) mmol/L Potassium 4.1 (3.5-5.1) mmol/L Chloride 96 L (98-107) mmol/L Carbon Dioxide 32 (21-32) mmol/L Anion Gap 10 (3-11) BUN 27 H (6-23) mg/dl Creatinine 1.00 (0.6-1.2) mg/dl Est Cr Clr Drug Dosing 79.0 ml/min Est GFR ( Amer) 66.1 ml/min Est GFR (Non-Af Amer) 57.0 ml/min BUN/Creatinine Ratio 27.0 H (10-20) Glucose 314 H* (70-99(Fasting)) mg/dl POC Glucose 388 H* 392 H* (70-99) mg/dl Calcium 9.2 (8.6-10.3) mg/dl Phosphorus 4.5 (2.5-4.9) mg/dl Magnesium 1.5 L (1.7-2.4) mg/dl 01/30/23 01/29/23 01/29/23 Range/Units 06:08 19:34 16:22 WBC 9.16 (4.8-10.8) K/ul RBC 3.93 L (4.20-5.40) M/uL Hgb 10.7 L (12.0-16.0) g/dl Hct 34.0 L (37.0-47.0) % MCV 86.5 (80.0-100.0) fL MCH 27.2 (25.0-34.0) pg MCHC 31.5 L (32.0-36.0) g/dL RDW Std Deviation 52.1 H (36.4-46.3) fL RDW Coeff of [place] 16.4 H (11.5-14.5) % Plt Count 218 (130-400) K/uL MPV 10.5 (9.4-12.4) fL Absolute Nucleated RBC 0.02 (0.00-0.12) K/uL Nucleated RBC % (auto) 0.2 % Sodium (136-145) mmol/L Potassium (3.5-5.1) mmol/L Chloride (98-107) mmol/L Carbon Dioxide (21-32) mmol/L Anion Gap (3-11) BUN (6-23) mg/dl Creatinine (0.6-1.2) mg/dl Est Cr Clr Drug Dosing ml/min Est GFR ( Amer) ml/min Est GFR (Non-Af Amer) ml/min BUN/Creatinine Ratio (10-20) Glucose (70-99(Fasting)) mg/dl POC Glucose 195 H 194 H (70-99) mg/dl Calcium (8.6-10.3) mg/dl Phosphorus (2.5-4.9) mg/dl Magnesium (1.7-2.4) mg/dl Medications Administered Current Inpatient Medications Acetaminophen (Acetaminophen 500 Mg Tab) 1,000 mg PO Q8 PRN PRN Reason: Pain or Fever Stop: 02/24/23 15:15 Last Admin: 01/29/23 21:48 Dose: 1,000 mg Albuterol (Albuterol 0.5% Neb Soln 2.5 Mg/0.5 Ml Vial) 2.5 mg NEB Q6R PRN; Protocol PRN Reason: sob/wheezing Stop: 02/26/23 00:59 Apixaban (Apixaban 5 Mg Tablet) 5 mg PO BID GARIMA Stop: 03/01/23 20:59 Atorvastatin Calcium (Atorvastatin 40 Mg Tab) 40 mg PO DAILY GARIMA Stop: 02/23/23 08:59 Last Admin: 01/30/23 09:47 Dose: 40 mg Dextrose (Dextrose 50% 50 Ml Syringe) 25 - 50 ml IV UD PRN; Protocol PRN Reason: Hypoglycemia Protocol Stop: 02/22/23 23:57 Doxycycline Hyclate (Doxycycline Hyclate 100 Mg Cap) 100 mg PO BID GARIMA Stop: 02/04/23 20:59 Last Admin: 01/30/23 09:48 Dose: 100 mg Famotidine (Famotidine 20 Mg Tab) 20 mg PO DAILY GARIMA Stop: 02/23/23 08:59 Last Admin: 01/30/23 09:48 Dose: 20 mg Furosemide (Furosemide 40 Mg/4 Ml Vial) 40 mg IV BID GARIMA Stop: 02/28/23 20:59 Last Admin: 01/30/23 09:55 Dose: 40 mg Glucagon (Glucagon For Inj 1 Mg Vial) 1 mg SQ UD PRN; Protocol PRN Reason: Hypoglycemia Protocol Stop: 02/22/23 23:57 Glucose (Glucose 10 Tab/Tube) 4 - 8 tab PO UD PRN; Protocol PRN Reason: Hypoglycemia Treatment Stop: 02/22/23 23:57 Glucose (Glucose 40% Gel 15 Gm Tube) 15 - 30 gm PO UD PRN; Protocol PRN Reason: Hypoglycemia Protocol Stop: 02/22/23 23:57 Glycerin (Glycerin Adult 12 Supp/Box Supp) 1 supp SC Q24H PRN PRN Reason: Constipation Stop: 02/26/23 18:57 Guaifenesin (Guaifenesin 600 Mg Tabcr) 600 mg PO Q12 GARIMA Stop: 02/25/23 20:59 Last Admin: 01/30/23 09:46 Dose: 600 mg Promethazine HCl 12.5 mg/ (Sodium Chloride) 50.5 mls @ 202 mls/hr IV Q6H PRN PRN Reason: Nausea And Vomiting Stop: 02/22/23 22:28 Insulin Aspart (Insulin Aspart Per Unit Charge) 0 units SC [facility]; Protocol Stop: 02/23/23 13:29 Last Admin: 01/30/23 08:54 Dose: 64 units Insulin Glargine (Lantus Per Unit Charge) 65 units SQ BID [facility] Stop: 02/23/23 08:59 Last Admin: 01/30/23 08:55 Dose: 65 units Ipratropium [place] (Ipratropium [place] Nasal [place] 0.06% 15ml) 1 sprays [facility] Stop: 02/23/23 08:59 Last Admin: 01/30/23 10:02 Dose: 1 sprays Lidocaine (Lidocaine 5% 1 Patch) 2 patch TD HS [facility] Stop: 02/25/23 20:59 Last Admin: 01/29/23 20:48 Dose: 2 patch Lorazepam (Lorazepam 0.5 Mg Tab) 0.5 mg PO Q8H PRN PRN Reason: Anxiety Stop: 02/24/23 16:21 Last Admin: 01/30/23 03:07 Dose: 0.5 mg Magnesium Oxide (Magnesium Oxide 400 Mg Tab) 400 mg PO BID [facility] Stop: 03/01/23 20:59 Metoprolol Succinate (Metoprolol Succ 50mg Ext Rel Tab) 100 mg PO BID [facility] Stop: 02/28/23 20:59 Last Admin: 01/30/23 09:53 Dose: 100 mg Miconazole Nitrate (Miconazole Nitrate Powder 85 Gm) 1 appln EXT BID PRN PRN Reason: skin fold irritation Stop: 02/24/23 17:57 Miscellaneous (Carbohydrates For Hypoglycemia ) 15 - 30 gm PO UD PRN PRN Reason: Hypoglycemia Protocol Stop: 02/22/23 23:57 Miscellaneous (Remove Lidoderm Patch) 2 each N/A QAM GARIMA Stop: 02/23/23 10:59 Last Admin: 01/30/23 08:05 Dose: 2 each Miscellaneous Information (Pharmacy Glycemic Mgmt Consult) 1 each N/A UD PRN; Protocol PRN Reason: Consult Stop: 02/26/23 10:28 Montelukast Sodium (Montelukast Sodium 10 Mg Tablet) 10 mg PO DAILY GARIMA Stop: 02/23/23 08:59 Last Admin: 01/30/23 09:52 Dose: 10 mg Nitroglycerin (Nitroglycerin Sl 0.4 Mg/Tab Tab) 0.4 mg SL Q5M PRN PRN Reason: Chest Pain Stop: 02/22/23 23:57 Oxycodone HCl (Oxycodone Hcl Ir 5 Mg Tab (Immediate Release)) 5 mg PO Q6H PRN PRN Reason: severe pain 7-10 Stop: 02/08/23 15:14 Last Admin: 01/30/23 01:03 Dose: 5 mg Pantoprazole Sodium (Pantoprazole 40 Mg Tab) 40 mg PO DAILY GARIMA Stop: 02/23/23 08:59 Last Admin: 01/30/23 09:52 Dose: 40 mg Phenazopyridine HCl (Phenazopyridine Hcl 100 Mg Tab) 100 mg PO TID GARIMA Stop: 02/24/23 15:29 Last Admin: 01/30/23 09:47 Dose: 100 mg Polyethylene Glycol (Polyethylene (Miralax) 17 Gm Pack) 17 gm PO DAILY GARIMA Stop: 02/26/23 18:59 Last Admin: 01/30/23 08:05 Dose: Not Given Tamsulosin HCl (Tamsulosin Hcl 0.4 Mg Cap) 0.4 mg PO HS GARIMA Stop: 02/23/23 20:59 Last Admin: 01/29/23 20:42 Dose: 0.4 mg Tramadol HCl (Tramadol Hcl 50 Mg Tablet) 25 - 50 mg PO Q4H PRN PRN Reason: Pain Stop: 02/22/23 22:28 Last Admin: 01/25/23 10:32 Dose: 50 mg Trolamine Salicylate (Trolamine Salicylate 10% Crm 255 Appln/85 Gm Tube) 1 appln EXT TID PRN PRN Reason: joint pain Stop: 02/24/23 15:15 Last Admin: 01/30/23 03:02 Dose: 1 appln
[2023-01-30] MEDS: TAMSULOSIN HCL 0.4 MG CAP PO SCH (21:10)
[2023-01-30] MEDS: LIDOCAINE 5% 1 PATCH TD SCH (21:12)
[2023-01-30] MEDS: ACETAMINOPHEN 500 MG TAB PO PRN (23:58)
[2023-01-31] MEDS: INSULIN ASPART PER UNIT CHARGE SC SCH ×5 (04:37→20:52)
[2023-01-31 06:17] LABS: Hematocrit (blood only) 36.8 % (37.0-47.0); Hemoglobin 11.6 g/dl (12.0-16.0); Mean Corpuscular Hemoglobin 27.2 pg (25.0-34.0); Mean Corpuscular Hgb Conc 31.5 g/dL (32.0-36.0); Mean Corpuscular Volume 86.4 fL (80.0-100.0); Mean Platelet Volume 10.5 fL (9.4-12.4); Nucleated RBC # (auto) 0.02 K/uL (0.00-0.12); Nucleated RBC % (auto) 0.2 %; Platelet Count 252 K/uL (130-400); RDW Coefficient of Variation 16.5 % (11.5-14.5); RDW Standard Deviation 51.8 fL (36.4-46.3); Red Blood Count 4.26 M/uL (4.20-5.40); White Blood Count 10.02 K/ul (4.8-10.8)
[2023-01-31 06:44] LABS: BUN Creatinine Ratio 30.9 (10-20); Calcium 9.6 mg/dl (8.6-10.3); Creatinine Clr Calc Pharmacy 81.9 ml/min; Est GFR (African American) 71.2 ml/min; Est GFR (Non-African American) 61.5 ml/min; Magnesium 1.7 mg/dl (1.7-2.4); Potassium 3.8 mmol/L (3.5-5.1)
[2023-01-31] MEDS: PHENAZOPYRIDINE HCL 100 MG TAB PO SCH ×3 (08:08→21:00)
[2023-01-31] MEDS: METOPROLOL SUCC 50MG EXT REL TAB PO SCH ×2 (08:08→21:00)
[2023-01-31] MEDS: MAGNESIUM OXIDE 400 MG TAB PO SCH ×2 (08:09→21:01)
[2023-01-31] MEDS: DOXYCYCLINE HYCLATE 100 MG CAP PO SCH ×2 (08:09→20:54)
[2023-01-31] MEDS: guaiFENesin 600 MG TABCR PO SCH ×2 (08:09→20:59)
[2023-01-31] MEDS: MONTELUKAST SODIUM 10 MG TABLET PO SCH (08:10)
[2023-01-31] MEDS: APIXABAN 5 MG TABLET PO SCH ×2 (08:10→20:54)
[2023-01-31] MEDS: ATORVASTATIN 40 MG TAB PO SCH (08:11)
[2023-01-31] MEDS: FAMOTIDINE 20 MG TAB PO SCH (08:11)
[2023-01-31] MEDS: POLYETHYLENE (MIRALAX) 17 GM PACK PO SCH (08:11)
[2023-01-31] MEDS: PANTOprazole 40 MG TAB PO SCH (08:12)
[2023-01-31] MEDS: LANTUS PER UNIT CHARGE SQ SCH ×2 (08:32→20:53)
[2023-01-31] MEDS: FUROSEMIDE 40 MG/4 ML VIAL IV SCH ×2 (09:11→20:55)
[2023-01-31] MEDS: IPRATROPIUM BROMIDE NASAL SPRAY 0.06% 15ML NAE SCH ×2 (09:12→21:04)
[2023-01-31] MEDS: oxyCODONE HCL IR 5 MG TAB (IMMEDIATE RELEASE) PO PRN (09:52)
[2023-01-31] MEDS ORDERED: DIGOXIN 0.125 MG TAB PO ONE ×2 (10:59→18:00)
--- NOTE | 2023-01-31 11:08 | Cardiology Progress Note ---
Date of Service January 31, 2023 Assessment & Plan (1) Acute heart failure with preserved ejection fraction (HFpEF): (2) Permanent atrial fibrillation: Plan 72 year old female with a pmhx of HFpEF, morbid obesity, COPD, CVA, who was admitted for urinary symptoms and found to have sepsis 2/2 a complicated UTI/infected kidney stone now s/p stent. She also was found to have acute on chronic decompensated HFpEF. Volume status improved with initiation of IV diuresis. Fluid balance -2.1 L overnight. Renal function remained stable. Continue furosemide, 40 mg IV BID (dose escalated on 01/29). Chronically treated as outpatient with 40 mg of oral furosemide daily. Consider transition to oral torsemide at discharge. Diltiazem discontinued 01/29 with heart rates trending upward. Will add oral digoxin 250 mcg x 1 now with an additional dose at approximately 6 PM today. Would like to avoid restarting calcium channel patsy therapy due to ongoing issues with edema, however, she may require diltiazem or verapamil to maintain adequate rate control. Continue oral anticoagulation with Eliquis. Discolored urine likely due to use of Pyridium. Patient with history of yeast infections and recurrent UTI, likely a poor candidate therefore for treatment with an SGLT2 inhibitor. Lisinopril discontinued April due to dizziness. Differ treatment of cellulitis / UTI to hospitalist service. Left leg cellulitis improved. Antibiotics de-escalated to oral cipro. Admission and Anticipated Discharge Date Admission Date: January 23, 2023 Subjective Patient seen and examined at the bedside. Noting intermittent shortness of breath and wheezing. Heart rate elevated on telemetry over the past 24 hours. Denies chest pain. No orthopnea, PND, or edema. Diltiazem discontinued in favor of higher dose metoprolol, 100 mg twice daily. Review of Systems Review of Systems: All systems reviewed & are unremarkable except as noted in Subjective Physical Exam Constitutional: well nourished and + obese; no acute distress Respiratory: no respiratory distress, no labored breathing and no retractions Auscultation: no crackles, no rales, no rhonchi and no wheezes Cardiovascular: Rate/Rhythm: + tachycardic and + irregularly irregular Heart Sounds: normal S1 and normal S2 Vessels: no JVD and no carotid bruit Extremities: no edema Gastrointestinal (Abdomen): Inspection/Auscultation: normal bowel sounds; abdomen not distended Percussion/Palpation: abdomen soft; abdomen nontender, no guarding and abdomen not rigid Neurologic: CN's II-XI intact bilaterally and moves all extremities; no focal motor deficits Results & Data Vital Signs (Past 12 Hours) Vital Signs Temp Pulse Pulse Resp BP Pulse Ox Pulse Ox 01/31/23 08:00 93 H 01/31/23 07:53 37.3 C 92 H 20 125/76 94 01/31/23 03:15 36.5 C 97 H 18 110/70 95 01/31/23 00:20 21 93 01/31/23 01:54 16 01/30/23 23:44 94 O2 Del Method O2 Del Method O2 Flow Rate O2 Flow Rate 01/31/23 08:00 01/31/23 07:53 Nasal Cannula 2 01/31/23 03:15 Nasal Cannula 01/31/23 00:20 2 01/31/23 01:54 3 01/30/23 23:44 Nasal Cannula 1 Laboratory Results CBC 01/31/23 Range/Units 05:23 WBC 10.02 (4.8-10.8) K/ul RBC 4.26 (4.20-5.40) M/uL Hgb 11.6 L (12.0-16.0) g/dl Hct 36.8 L (37.0-47.0) % Plt Count 252 (130-400) K/uL Comprehensive Metabolic Panel 01/31/23 Range/Units 05:23 Sodium 138 (136-145) mmol/L Potassium 3.8 (3.5-5.1) mmol/L Chloride 96 L (98-107) mmol/L Carbon Dioxide 33 H (21-32) mmol/L BUN 29 H (6-23) mg/dl Creatinine 0.94 (0.6-1.2) mg/dl Glucose 177 H (70-99(Fasting)) mg/dl Calcium 9.6 (8.6-10.3) mg/dl Intake and Output 01/30/23 01/31/23 01/31/23 22:59 06:59 14:59 Intake Total 200 / 1140 480 / 1140 Output Total 1000 / 3251 901 / 3251 Balance -800 / -2110 -421 / -2110 - Intake: Oral 200 / 1040 480 / 1040 Output: Urine Amount (Catheter) 1000 / 3250 900 / 3250 Miller/Indwelling 1000 / 3250 900 / 3250 # Bowel Movements Other: Weight 147.3 kg Weight Measurement Method Built in [facility]
--- NOTE | 2023-01-31 11:47 | Hospitalist Progress Note ---
Date of Service January 31, 2023 Assessment & Plan (1) Ureteral calculus, right: (2) Acute heart failure with preserved ejection fraction (HFpEF): (3) Hydronephrosis with renal and ureteral calculous obstruction: (4) Morbid obesity: (5) Bipolar disorder: (6) Arthritis: (7) REENA (obstructive sleep apnea): (8) Paroxysmal atrial fibrillation: (9) Diabetes mellitus, type II: Plan 72 y/o F with PMH HTN, HLD, DM II, COPD, paroxysmal atrial fibrillation chronically anticoagulated on Eliquis, chronic diastolic heart failure, RBBB, CVA, kidney stones, bipolar disorder, REENA, morbid obesity presented to ER with multiple medical complaints.This is being managed for the following: Acute on chronic diastolic heart failure History of noncompliance, patient was dyspneic at presentation 2020 TTE with EF of 55 to 59%. Admitting BNP 156. Admitting echo with EF of 55 to 60%, no LV segmental wall motion abnormality. Diastolic dysfunction. Troponin negative at presentation. Admitting CXR with pulmonary edema. No airspace consolidation. CT chest with no PE. Atrial fibrillation Volume overload Currently on IV lasix 40mg BID. May consider torsemide when ready for dc Weatherization Technician evaluation and recommendations noted Patient had been on diltiazem starting at a dose of 120 mg since 2017. Metoprolol tartrate was titrated to 75 mg twice daily in 2020. Diltiazem was stopped on 01/29 due to leg edema Metoprolol succinate at 100mg BID Cardiology gave digoxin this morning Will monitor and follow up Weatherization Technician recs Continue eliquis Patient with history of yeast infections and recurrent UTI, likely a poor candidate therefore for treatment with an SGLT2 inhibitor. Was on lisinopril in April, stopped due to dizziness. Partially treated complicated UTI Infected renal stone/obstructive uropathy Severe sepsis POA: Secondary to above. SIRS positive, lactic acid elevation at presentation. Hematuria: Secondary to obstructive uropathy Patient came in with complaint of urinary frequency, dysuria in the setting of recent multiple courses of outpatient treatment for UTI. Admitting CTAP with obstructing 6 x 5 mm stone in the right proximal ureter and nonobstructing 5 mm right mid pole renal stone. Patient was started on aztreonam and daptomycin. Blood cultures are negative and there are no UA or Ucx this admission to reflect a specific pathogen. Outpatient records reveal no recent infection or culture data. Status post cystoscopy and right ureteral stent placement by urology 01/24/2023. Was on Ciprofloxacin till 01/30/23 Post operatively she reports acute left hip pain that is TTP of lateral area over GTB. Left CT hip reveals no acute fracture or dislocation. pain med regimen, PT/OT Will need follow-up with urology on discharge. Currently on po doxycycline for left leg cellulitis Other chronic medical conditions: Continue with/resume home meds as and when able. hypertension, stable hyperlipidemia on statin Rx, held d/t pt being on dapto. can resume history CVA as per records COPD, not in acute exacerbation REENA on CPAP DM2 insulin requiring, suboptimal control as of recent hemoglobin A1c of 9.06 September 2022, a1c 8.5 this admission. ? 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 tightened correction factor. mood disorder, very anxious regarding hip pain which was improved with Ativan (per previous provider). Cont PRN severe anxiety. past tobacco abuse hx MRSA morbid obesity DVT ppx - eliquis Full code I spent a total of 45 minutes coordinating, documenting and providing care for this patient excluding time spent in performance of separately billed services Admission and Anticipated Discharge Date Admission Date: January 23, 2023 Subjective Patient seen and examined Reports some shortness of breath Reports occasional cough Denied chest pain, nausea, vomiting, diarrhea Denied fever, chills Physical Exam Constitutional: + well hydrated and + obese; no acute distress Eyes: PERRL, conjunctivae normal, anicteric sclerae ENMT: external ear and nose normal, oropharynx normal Respiratory: normal respiratory effort; no respiratory distress Good air entry b/l, no wheeze Cardiovascular: Rate/Rhythm: + tachycardic and + irregularly irregular S1 S2 Gastrointestinal (Abdomen): normal bowel sounds, soft, nontender, no hepatosplenomegaly Musculoskeletal: No pedal edema Neurologic: PERRL, EOMI, accommodation nl, no face palsy, no dysarthria Psychiatric: A+Ox3, euthymic affect Genitourinary: Miller in situ Results & Data Results & Data Vital Signs (Past 12 Hours) Vital Signs Temp Pulse Pulse Resp BP Pulse Ox O2 Del Method 01/31/23 11:45 112 H 01/31/23 08:00 93 H 01/31/23 07:53 37.3 C 92 H 20 125/76 94 Nasal Cannula 01/31/23 03:15 36.5 C 97 H 18 110/70 95 Nasal Cannula 01/31/23 00:20 21 93 01/31/23 01:54 16 O2 Flow Rate 01/31/23 11:45 01/31/23 08:00 01/31/23 07:53 2 01/31/23 03:15 01/31/23 00:20 2 01/31/23 01:54 3 Laboratory Results Abnormal lab results 01/30/23 01/30/23 01/30/23 Range/Units 14:07 16:04 20:01 Hgb (12.0-16.0) g/dl Hct (37.0-47.0) % MCHC (32.0-36.0) g/dL RDW Std Deviation (36.4-46.3) fL RDW Coeff of Juan Diego (11.5-14.5) % Chloride (98-107) mmol/L Carbon Dioxide (21-32) mmol/L BUN (6-23) mg/dl BUN/Creatinine Ratio (10-20) Glucose (70-99(Fasting)) mg/dl POC Glucose 338 H* 232 H 257 H (70-99) mg/dl 01/30/23 01/31/23 01/31/23 Range/Units 23:47 04:04 05:23 Hgb (12.0-16.0) g/dl Hct (37.0-47.0) % MCHC (32.0-36.0) g/dL RDW Std Deviation (36.4-46.3) fL RDW Coeff of [place] (11.5-14.5) % Chloride 96 L (98-107) mmol/L Carbon Dioxide 33 H (21-32) mmol/L BUN 29 H (6-23) mg/dl BUN/Creatinine Ratio 30.9 H (10-20) Glucose 177 H (70-99(Fasting)) mg/dl POC Glucose 311 H* 171 H (70-99) mg/dl 01/31/23 01/31/23 01/31/23 Range/Units 05:23 07:20 11:30 Hgb 11.6 L (12.0-16.0) g/dl Hct 36.8 L (37.0-47.0) % MCHC 31.5 L (32.0-36.0) g/dL RDW Std Deviation 51.8 H (36.4-46.3) fL RDW Coeff of Juan Diego 16.5 H (11.5-14.5) % Chloride (98-107) mmol/L Carbon Dioxide (21-32) mmol/L BUN (6-23) mg/dl BUN/Creatinine Ratio (10-20) Glucose (70-99(Fasting)) mg/dl POC Glucose 216 H 253 H (70-99) mg/dl
[2023-01-31] MEDS: TAMSULOSIN HCL 0.4 MG CAP PO SCH (21:01)
[2023-01-31] MEDS: LIDOCAINE 5% 1 PATCH TD SCH (21:04)
[2023-01-31] MEDS: ACETAMINOPHEN 500 MG TAB PO PRN (21:06)
[2023-02-01] MEDS ORDERED: INSULIN ASPART PER UNIT CHARGE SC SCH
[2023-02-01 06:57] LABS: Hematocrit (blood only) 34.5 % (37.0-47.0); Hemoglobin 11.1 g/dl (12.0-16.0); Mean Corpuscular Hemoglobin 27.5 pg (25.0-34.0); Mean Corpuscular Hgb Conc 32.2 g/dL (32.0-36.0); Mean Corpuscular Volume 85.6 fL (80.0-100.0); Mean Platelet Volume 10.7 fL (9.4-12.4); Nucleated RBC # (auto) 0.02 K/uL (0.00-0.12); Nucleated RBC % (auto) 0.2 %; Platelet Count 245 K/uL (130-400); RDW Coefficient of Variation 16.7 % (11.5-14.5); RDW Standard Deviation 51.8 fL (36.4-46.3); Red Blood Count 4.03 M/uL (4.20-5.40); White Blood Count 8.25 K/ul (4.8-10.8)
[2023-02-01 07:40] LABS: BUN Creatinine Ratio 31.6 (10-20); Calcium 9.6 mg/dl (8.6-10.3); Creatinine Clr Calc Pharmacy 78.7 ml/min; Est GFR (African American) 67.7 ml/min; Est GFR (Non-African American) 58.4 ml/min; Magnesium 1.7 mg/dl (1.7-2.4); Phosphorus 5.3 mg/dl (2.5-4.9); Potassium 4.1 mmol/L (3.5-5.1)
[2023-02-01] MEDS: LANTUS PER UNIT CHARGE SQ SCH ×2 (08:03→20:14)
[2023-02-01] MEDS: INSULIN ASPART PER UNIT CHARGE SC SCH ×5 (08:03→23:30)
[2023-02-01] MEDS: guaiFENesin 600 MG TABCR PO SCH ×2 (08:19→20:20)
[2023-02-01] MEDS: MAGNESIUM OXIDE 400 MG TAB PO SCH ×2 (08:20→20:20)
[2023-02-01] MEDS: PANTOprazole 40 MG TAB PO SCH (08:20)
[2023-02-01] MEDS: FAMOTIDINE 20 MG TAB PO SCH (08:20)
[2023-02-01] MEDS: MONTELUKAST SODIUM 10 MG TABLET PO SCH (08:20)
[2023-02-01] MEDS: ATORVASTATIN 40 MG TAB PO SCH (08:21)
[2023-02-01] MEDS: METOPROLOL SUCC 50MG EXT REL TAB PO SCH ×2 (08:21→20:19)
[2023-02-01] MEDS: DOXYCYCLINE HYCLATE 100 MG CAP PO SCH ×2 (08:22→20:19)
[2023-02-01] MEDS: PHENAZOPYRIDINE HCL 100 MG TAB PO SCH ×3 (08:22→20:17)
[2023-02-01] MEDS: APIXABAN 5 MG TABLET PO SCH ×2 (08:23→20:17)
[2023-02-01] MEDS: POLYETHYLENE (MIRALAX) 17 GM PACK PO SCH (08:23)
[2023-02-01] MEDS: ACETAMINOPHEN 500 MG TAB PO PRN (08:24)
[2023-02-01] MEDS: IPRATROPIUM BROMIDE NASAL SPRAY 0.06% 15ML NAE SCH ×2 (08:25→20:21)
[2023-02-01] MEDS: FUROSEMIDE 40 MG/4 ML VIAL IV SCH (08:26)
[2023-02-01] MEDS ORDERED: DIGOXIN 0.125 MG TAB PO ONE (09:02)
--- NOTE | 2023-02-01 09:07 | Cardiology Progress Note ---
Date of Service February 01, 2023 Assessment & Plan (1) Acute heart failure with preserved ejection fraction (HFpEF): (2) Permanent atrial fibrillation: Plan 72 year old female with a pmhx of HFpEF, morbid obesity, COPD, CVA, who was admitted for urinary symptoms and found to have sepsis 2/2 a complicated UTI/infected kidney stone now s/p stent. She also was found to have acute on chronic decompensated HFpEF. Volume status improved with initiation of IV diuresis. Fluid balance -2.1 L overnight. Renal function remained stable. Discontinue IV Lasix. Transition patient to oral torsemide, 40 mg daily. Continue digoxin with additional 250 mcg this morning. She will then continue 250 mcg daily. Continue metoprolol succinate 100 mg twice daily. Prefer to avoid restarting calcium channel patsy therapy due to ongoing issues with edema, however, she may require diltiazem or verapamil to maintain adequate rate control. Continue oral anticoagulation with Eliquis. Discolored urine likely due to use of Pyridium. Patient with history of yeast infections and recurrent UTI, likely a poor candidate therefore for treatment with an SGLT2 inhibitor. Lisinopril discontinued April due to dizziness. Differ treatment of cellulitis / UTI to hospitalist service. Left leg cellulitis improved. Antibiotics de-escalated to oral cipro. Admission and Anticipated Discharge Date Admission Date: January 23, 2023 Subjective Patient seen and examined at the bedside. Heart rate improved with addition of digoxin. Denies chest pain or shortness of breath. No orthopnea or PND. Telemetry reveals atrial fibrillation in the 80s-90s. Review of Systems Review of Systems: All systems reviewed & are unremarkable except as noted in Subjective Physical Exam Constitutional: well nourished and + obese; no acute distress Respiratory: no respiratory distress, no labored breathing and no retractions Auscultation: no crackles, no rales, no rhonchi and no wheezes Cardiovascular: Rate/Rhythm: + irregularly irregular Heart Sounds: normal S1 and normal S2 Vessels: no JVD and no carotid bruit Extremities: no edema Gastrointestinal (Abdomen): Inspection/Auscultation: normal bowel sounds; abdomen not distended Percussion/Palpation: abdomen soft; abdomen nontender, no guarding and abdomen not rigid Neurologic: CN's II-XI intact bilaterally and moves all extremities; no focal motor deficits Results & Data Vital Signs (Past 12 Hours) Vital Signs Temp Pulse Pulse Resp BP Pulse Ox O2 Del Method 02/01/23 08:03 36.8 C 87 18 123/76 95 Nasal Cannula 02/01/23 07:48 82 02/01/23 03:00 36.6 C 89 19 131/83 95 Room Air 02/01/23 02:14 87 24 94 02/01/23 00:10 21 90 01/31/23 22:50 92 H 01/31/23 22:44 36.6 C 92 H 18 116/82 94 Room Air 01/31/23 22:47 68 18 94 Nasal Cannula 01/31/23 21:46 Nasal Cannula O2 Flow Rate 02/01/23 08:03 1 02/01/23 07:48 02/01/23 03:00 02/01/23 02:14 3 02/01/23 00:10 3 01/31/23 22:50 01/31/23 22:44 01/31/23 22:47 1 01/31/23 21:46 1 Laboratory Results CBC 02/01/23 Range/Units 05:48 WBC 8.25 (4.8-10.8) K/ul RBC 4.03 L (4.20-5.40) M/uL Hgb 11.1 L (12.0-16.0) g/dl Hct 34.5 L (37.0-47.0) % Plt Count 245 (130-400) K/uL Comprehensive Metabolic Panel 02/01/23 Range/Units 05:48 Sodium 136 (136-145) mmol/L Potassium 4.1 (3.5-5.1) mmol/L Chloride 96 L (98-107) mmol/L Carbon Dioxide 30 (21-32) mmol/L BUN 31 H (6-23) mg/dl Creatinine 0.98 (0.6-1.2) mg/dl Glucose 240 H (70-99(Fasting)) mg/dl Calcium 9.6 (8.6-10.3) mg/dl Intake and Output 01/31/23 02/01/23 02/01/23 22:59 06:59 14:59 Intake Total 200 / 200 Output Total 900 / 2801 650 / 2801 Balance -700 / -2601 -650 / -2601 Intake: Oral 200 / 200 Output: Urine Amount (Catheter) 900 / 2800 650 / 2800 Miller/Indwelling 900 / 2800 650 / 2800 Other: Weight 147.7 kg
[2023-02-01] MEDS: DIGOXIN 0.25 MG TAB PO SCH (16:55)
--- NOTE | 2023-02-01 19:19 | Hospitalist Progress Note ---
Date of Service February 01, 2023 Assessment & Plan (1) Ureteral calculus, right: (2) Acute heart failure with preserved ejection fraction (HFpEF): (3) Hydronephrosis with renal and ureteral calculous obstruction: (4) Morbid obesity: (5) Bipolar disorder: (6) Arthritis: (7) REENA (obstructive sleep apnea): (8) Paroxysmal atrial fibrillation: (9) Diabetes mellitus, type II: Plan 72 y/o F with PMH HTN, HLD, DM II, COPD, paroxysmal atrial fibrillation chronically anticoagulated on Eliquis, chronic diastolic heart failure, RBBB, CVA, kidney stones, bipolar disorder, REENA, morbid obesity presented to ER with multiple medical complaints.This is being managed for the following: Acute on chronic diastolic heart failure History of noncompliance, patient was dyspneic at presentation 2020 TTE with EF of 55 to 59%. Admitting BNP 156. Admitting echo with EF of 55 to 60%, no LV segmental wall motion abnormality. Diastolic dysfunction. Troponin negative at presentation. Admitting CXR with pulmonary edema. No airspace consolidation. CT chest with no PE. Atrial fibrillation Volume overload Currently on IV lasix 40mg BID. Transition to torsemide 40 mg daily [employer] evaluation and recommendations noted Continue digoxin with additional 250 mcg this morning. She will then continue 250 mcg daily. Continue metoprolol succinate 100 mg twice daily. Diltiazem was stopped on 01/29 due to leg edema Will monitor and follow up [employer] recs Continue eliquis Patient with history of yeast infections and recurrent UTI, likely a poor candidate therefore for treatment with an SGLT2 inhibitor. Was on lisinopril in April, stopped due to dizziness. Partially treated complicated UTI Infected renal stone/obstructive uropathy Severe sepsis POA: Secondary to above. SIRS positive, lactic acid elevation at presentation. Hematuria: Secondary to obstructive uropathy Patient came in with complaint of urinary frequency, dysuria in the setting of recent multiple courses of outpatient treatment for UTI. Admitting CTAP with obstructing 6 x 5 mm stone in the right proximal ureter and nonobstructing 5 mm right mid pole renal stone. Patient was started on aztreonam and daptomycin. Blood cultures are negative and there are no UA or Ucx this admission to reflect a specific pathogen. Outpatient records reveal no recent infection or culture data. Status post cystoscopy and right ureteral stent placement by urology 01/24/2023. Was on Ciprofloxacin till 01/30/23 Post operatively she reports acute left hip pain that is TTP of lateral area over GTB. Left CT hip reveals no acute fracture or dislocation. pain med regimen, PT/OT Will need follow-up with urology on discharge. Currently on po doxycycline for left leg cellulitis Other chronic medical conditions: Continue with/resume home meds as and when able. hypertension, stable hyperlipidemia on statin Rx, held d/t pt being on dapto. can resume history CVA as per records COPD, not in acute exacerbation REENA on CPAP DM2 insulin requiring, suboptimal control as of recent hemoglobin A1c of 9.06 September 2022, a1c 8.5 this admission. ? 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 tightened correction factor. mood disorder, very anxious regarding hip pain which was improved with Ativan (per previous provider). Cont PRN severe anxiety. past tobacco abuse hx MRSA morbid obesity DVT ppx - eliquis Full code Admission and Anticipated Discharge Date Admission Date: January 23, 2023 Subjective 72-year-old female presented with sepsis secondary to UTI, resuscitated. She underwent cystoscopy with a right ureteral stent insertion on 01/24. Hematuria resolved and pt was restarted on eliquis - pt is also on pyridium. She continues to require oxygen supplementation, breathing comfortably. No fever, chills, chest pain. Cardiology following closely. Review of Systems Review of Systems: All systems reviewed & are unremarkable except as noted in Subjective Physical Exam Physical Exam: CONSTITUTIONAL: obese F in NAD, on suppl. O2 EYES: normal conjunctivae, no scleral icterus ENT: external ear and nose normal, oropharynx clear, MMM NECK: trachea midline RESPIRATORY: clear to auscultation bilaterally, + crackles, no wheezes, normal respiratory effort CARDIOVASCULAR: irregular, S1 and 2 heard without murmurs, gallops or rubs, no JVD, no peripheral edema CHEST: inspection of chest was normal GASTROINTESTINAL: soft, nontender, ND no guarding, + obese abdomen. MUSCULOSKELETAL: head is normocephalic and atraumatic, moves extremities, + LLE erythema (improved) SKIN: warm and dry, no rashes NEURO/PSYCH: awake, alert, answers appropriately, no facial asymmetry, speech fluent, moves extremities Results & Data Results & Data Vital Signs (Past 12 Hours) Vital Signs Temp Pulse Pulse Resp BP Pulse Ox O2 Del Method 02/01/23 16:55 90 02/01/23 16:37 85 02/01/23 07:30 Nasal Cannula 02/01/23 14:56 36.7 C 87 20 127/74 90 Nasal Cannula 02/01/23 13:00 93 Nasal Cannula 02/01/23 13:00 87 L Room Air 02/01/23 11:46 36.7 C 89 18 139/80 92 Nasal Cannula 02/01/23 10:25 90 02/01/23 08:03 36.8 C 87 18 123/76 95 Nasal Cannula 02/01/23 07:48 82 O2 Flow Rate 02/01/23 16:55 02/01/23 16:37 02/01/23 07:30 1 02/01/23 14:56 1 02/01/23 13:00 1 02/01/23 13:00 02/01/23 11:46 1 02/01/23 10:25 02/01/23 08:03 1 02/01/23 07:48 Laboratory Results 02/01/23 02/01/23 02/01/23 Range/Units 16:10 11:17 08:12 WBC (4.8-10.8) K/ul RBC (4.20-5.40) M/uL Hgb (12.0-16.0) g/dl Hct (37.0-47.0) % MCV (80.0-100.0) fL MCH (25.0-34.0) pg MCHC (32.0-36.0) g/dL RDW Std Deviation (36.4-46.3) fL RDW Coeff of Juan [place] (11.5-14.5) % Plt Count (130-400) K/uL MPV (9.4-12.4) fL Absolute Nucleated RBC (0.00-0.12) K/uL Nucleated RBC % (auto) % Sodium (136-145) mmol/L Potassium (3.5-5.1) mmol/L Chloride (98-107) mmol/L Carbon Dioxide (21-32) mmol/L Anion Gap (3-11) BUN (6-23) mg/dl Creatinine (0.6-1.2) mg/dl Est Cr Clr Drug Dosing ml/min Est GFR ( Amer) ml/min Est GFR (Non-Af Amer) ml/min BUN/Creatinine Ratio (10-20) Glucose (70-99(Fasting)) mg/dl POC Glucose 257 H 270 H (70-99) mg/dl Calcium (8.6-10.3) mg/dl Phosphorus (2.5-4.9) mg/dl Magnesium (1.7-2.4) mg/dl Nasal Screen MRSA (PCR) Negative (Negative) 02/01/23 02/01/23 02/01/23 Range/Units 07:25 05:48 05:48 WBC 8.25 (4.8-10.8) K/ul RBC 4.03 L (4.20-5.40) M/uL Hgb 11.1 L (12.0-16.0) g/dl Hct 34.5 L (37.0-47.0) % MCV 85.6 (80.0-100.0) fL MCH 27.5 (25.0-34.0) pg MCHC 32.2 (32.0-36.0) g/dL RDW Std Deviation 51.8 H (36.4-46.3) fL RDW Coeff of [place] 16.7 H (11.5-14.5) % Plt Count 245 (130-400) K/uL MPV 10.7 (9.4-12.4) fL Absolute Nucleated RBC 0.02 (0.00-0.12) K/uL Nucleated RBC % (auto) 0.2 % Sodium 136 (136-145) mmol/L Potassium 4.1 (3.5-5.1) mmol/L Chloride 96 L (98-107) mmol/L Carbon Dioxide 30 (21-32) mmol/L Anion Gap 10 (3-11) BUN 31 H (6-23) mg/dl Creatinine 0.98 (0.6-1.2) mg/dl Est Cr Clr Drug Dosing 78.7 ml/min Est GFR ( Amer) 67.7 ml/min Est GFR (Non-Af Amer) 58.4 ml/min BUN/Creatinine Ratio 31.6 H (10-20) Glucose 240 H (70-99(Fasting)) mg/dl POC Glucose 253 H (70-99) mg/dl Calcium 9.6 (8.6-10.3) mg/dl Phosphorus 5.3 H (2.5-4.9) mg/dl Magnesium 1.7 (1.7-2.4) mg/dl Nasal Screen MRSA (PCR) (Negative) 01/31/23 01/31/23 Range/Units 23:53 20:03 WBC (4.8-10.8) K/ul RBC (4.20-5.40) M/uL Hgb (12.0-16.0) g/dl Hct (37.0-47.0) % MCV (80.0-100.0) fL MCH (25.0-34.0) pg MCHC (32.0-36.0) g/dL RDW Std Deviation (36.4-46.3) fL RDW Coeff of [place] (11.5-14.5) % Plt Count (130-400) K/uL MPV (9.4-12.4) fL Absolute Nucleated RBC (0.00-0.12) K/uL Nucleated RBC % (auto) % Sodium (136-145) mmol/L Potassium (3.5-5.1) mmol/L Chloride (98-107) mmol/L Carbon Dioxide (21-32) mmol/L Anion Gap (3-11) BUN (6-23) mg/dl Creatinine (0.6-1.2) mg/dl Est Cr Clr Drug Dosing ml/min Est GFR ( Amer) ml/min Est GFR (Non-Af Amer) ml/min BUN/Creatinine Ratio (10-20) Glucose (70-99(Fasting)) mg/dl POC Glucose 261 H 249 H (70-99) mg/dl Calcium (8.6-10.3) mg/dl Phosphorus (2.5-4.9) mg/dl Magnesium (1.7-2.4) mg/dl Nasal Screen MRSA (PCR) (Negative) Medications Administered Current Inpatient Medications Acetaminophen (Acetaminophen 500 Mg Tab) 1,000 mg PO Q8 PRN PRN Reason: Pain or Fever Stop: 02/24/23 15:15 Last Admin: 02/01/23 08:24 Dose: 1,000 mg Albuterol (Albuterol 0.5% Neb Soln 2.5 Mg/0.5 Ml Vial) 2.5 mg NEB Q6R PRN; Protocol PRN Reason: sob/wheezing Stop: 02/26/23 00:59 Last Admin: 01/31/23 22:44 Dose: 2.5 mg Apixaban (Apixaban 5 Mg Tablet) 5 mg PO BID GARIMA Stop: 03/01/23 20:59 Last Admin: 02/01/23 08:23 Dose: 5 mg Atorvastatin Calcium (Atorvastatin 40 Mg Tab) 40 mg PO DAILY GARIMA Stop: 02/23/23 08:59 Last Admin: 02/01/23 08:21 Dose: 40 mg Dextrose (Dextrose 50% 50 Ml Syringe) 25 - 50 ml IV UD PRN; Protocol PRN Reason: Hypoglycemia Protocol Stop: 02/22/23 23:57 Digoxin (Digoxin 0.25 Mg Tab) 0.25 mg PO DAILY@1600 [facility] Stop: 03/03/23 15:59 Last Admin: 02/01/23 16:55 Dose: 0.25 mg Doxycycline Hyclate (Doxycycline Hyclate 100 Mg Cap) 100 mg PO BID GARIMA Stop: 02/04/23 20:59 Last Admin: 02/01/23 08:22 Dose: 100 mg Famotidine (Famotidine 20 Mg Tab) 20 mg PO DAILY GARIMA Stop: 02/23/23 08:59 Last Admin: 02/01/23 08:20 Dose: 20 mg Glucagon (Glucagon For Inj 1 Mg Vial) 1 mg SQ UD PRN; Protocol PRN Reason: Hypoglycemia Protocol Stop: 02/22/23 23:57 Glucose (Glucose 10 Tab/Tube) 4 - 8 tab PO UD PRN; Protocol PRN Reason: Hypoglycemia Treatment Stop: 02/22/23 23:57 Glucose (Glucose 40% Gel 15 Gm Tube) 15 - 30 gm PO UD PRN; Protocol PRN Reason: Hypoglycemia Protocol Stop: 02/22/23 23:57 Glycerin (Glycerin Adult 12 Supp/Box Supp) 1 supp CO Q24H PRN PRN Reason: Constipation Stop: 02/26/23 18:57 Guaifenesin (Guaifenesin 600 Mg Tabcr) 600 mg PO Q12 GARIMA Stop: 02/25/23 20:59 Last Admin: 02/01/23 08:19 Dose: 600 mg Promethazine HCl 12.5 mg/ (Sodium Chloride) 50.5 mls @ 202 mls/hr IV Q6H PRN PRN Reason: Nausea And Vomiting Stop: 02/22/23 22:28 Insulin Aspart (Insulin Aspart Per Unit Charge) 0 units SC ACHS [facility]; Protocol Stop: 02/23/23 13:29 Last Admin: 02/01/23 17:05 Dose: 50 units Insulin Aspart (Insulin Aspart Per Unit Charge) 0 units SC 0000,0400 [facility]; Protocol Stop: 02/02/23 04:01 Insulin Glargine (Lantus Per Unit Charge) 75 units SQ BID [facility] Stop: 03/02/23 20:59 Last Admin: 02/01/23 08:03 Dose: 75 units Ipratropium [place] (Ipratropium [place] Nasal [place] 0.06% 15ml) 1 sprays ANIBAL [facility]HS [facility] Stop: 02/23/23 08:59 Last Admin: 02/01/23 08:25 Dose: 1 sprays Lidocaine (Lidocaine 5% 1 Patch) 2 patch TD HS [facility] Stop: 02/25/23 20:59 Last Admin: 01/31/23 21:04 Dose: 2 patch Lorazepam (Lorazepam 0.5 Mg Tab) 0.5 mg PO Q8H PRN PRN Reason: Anxiety Stop: 02/24/23 16:21 Last Admin: 01/30/23 03:07 Dose: 0.5 mg Magnesium Oxide (Magnesium Oxide 400 Mg Tab) 400 mg PO BID [facility] Stop: 03/01/23 20:59 Last Admin: 02/01/23 08:20 Dose: 400 mg Metoprolol Succinate (Metoprolol Succ 50mg Ext Rel Tab) 100 mg PO BID [facility] Stop: 02/28/23 20:59 Last Admin: 02/01/23 08:21 Dose: 100 mg Miconazole Nitrate (Miconazole Nitrate Powder 85 Gm) 1 appln EXT BID PRN PRN Reason: skin fold irritation Stop: 02/24/23 17:57 Miscellaneous (Carbohydrates For Hypoglycemia ) 15 - 30 gm PO UD PRN PRN Reason: Hypoglycemia Protocol Stop: 02/22/23 23:57 Miscellaneous (Remove Lidoderm Patch) 2 each N/A QAM [facility] Stop: 02/23/23 10:59 Last Admin: 02/01/23 08:23 Dose: 2 each Miscellaneous Information (Pharmacy Glycemic Mgmt Consult) 1 each N/A UD PRN; Protocol PRN Reason: Consult Stop: 02/26/23 10:28 Montelukast Sodium (Montelukast Sodium 10 Mg Tablet) 10 mg PO DAILY GARIMA Stop: 02/23/23 08:59 Last Admin: 02/01/23 08:20 Dose: 10 mg Nitroglycerin (Nitroglycerin Sl 0.4 Mg/Tab Tab) 0.4 mg SL Q5M PRN PRN Reason: Chest Pain Stop: 02/22/23 23:57 Oxycodone HCl (Oxycodone Hcl Ir 5 Mg Tab (Immediate Release)) 5 mg PO Q6H PRN PRN Reason: severe pain 7-10 Stop: 02/08/23 15:14 Last Admin: 01/31/23 09:52 Dose: 5 mg Pantoprazole Sodium (Pantoprazole 40 Mg Tab) 40 mg PO DAILY GARIMA Stop: 02/23/23 08:59 Last Admin: 02/01/23 08:20 Dose: 40 mg Phenazopyridine HCl (Phenazopyridine Hcl 100 Mg Tab) 100 mg PO TID G[facility]IMA Stop: 02/24/23 15:29 Last Admin: 02/01/23 14:10 Dose: 100 mg Polyethylene Glycol (Polyethylene (Miralax) 17 Gm Pack) 17 gm PO DAILY G[facility]IM[facility] Stop: 02/26/23 18:59 Last Admin: 02/01/23 08:23 Dose: Not Given Tamsulosin HCl (Tamsulosin Hcl 0.4 Mg Cap) 0.4 mg PO HS [facility] Stop: 02/23/23 20:59 Last Admin: 01/31/23 21:01 Dose: 0.4 mg Torsemide (Torsemide 10 Mg Tab) 20 mg PO QAM [facility] Stop: 03/04/23 08:59 Tramadol HCl (Tramadol Hcl 50 Mg Tablet) 25 - 50 mg PO Q4H PRN PRN Reason: Pain Stop: 02/22/23 22:28 Last Admin: 01/25/23 10:32 Dose: 50 mg Trolamine Salicylate (Trolamine Salicylate 10% Crm 255 Appln/85 Gm Tube) 1 appln EXT TID PRN PRN Reason: joint pain Stop: 02/24/23 15:15 Last Admin: 01/30/23 03:02 Dose: 1 appln
[2023-02-01] MEDS: TAMSULOSIN HCL 0.4 MG CAP PO SCH (20:18)
[2023-02-01] MEDS: LIDOCAINE 5% 1 PATCH TD SCH (20:22)
[2023-02-01] MEDS: LORazepam 0.5 MG TAB PO PRN (23:32)
[2023-02-02] MEDS: oxyCODONE HCL IR 5 MG TAB (IMMEDIATE RELEASE) PO PRN ×2 (02:14→08:21)
[2023-02-02] MEDS: INSULIN ASPART PER UNIT CHARGE SC SCH ×5 (03:56→20:42)
[2023-02-02 06:26] LABS: Hematocrit (blood only) 34.6 % (37.0-47.0); Hemoglobin 11.1 g/dl (12.0-16.0); Mean Corpuscular Hemoglobin 27.5 pg (25.0-34.0); Mean Corpuscular Hgb Conc 32.1 g/dL (32.0-36.0); Mean Corpuscular Volume 85.6 fL (80.0-100.0); Mean Platelet Volume 10.5 fL (9.4-12.4); Platelet Count 233 K/uL (130-400); RDW Coefficient of Variation 16.7 % (11.5-14.5); RDW Standard Deviation 52.1 fL (36.4-46.3); Red Blood Count 4.04 M/uL (4.20-5.40); White Blood Count 8.83 K/ul (4.8-10.8)
[2023-02-02 06:48] LABS: BUN Creatinine Ratio 33.8 (10-20); Calcium 9.5 mg/dl (8.6-10.3); Creatinine Clr Calc Pharmacy 96.4 ml/min; Est GFR (African American) 86.6 ml/min; Est GFR (Non-African American) 74.7 ml/min; Magnesium 1.7 mg/dl (1.7-2.4); Phosphorus 4.2 mg/dl (2.5-4.9); Potassium 3.7 mmol/L (3.5-5.1)
[2023-02-02] MEDS: LANTUS PER UNIT CHARGE SQ SCH ×2 (08:12→20:43)
[2023-02-02] MEDS: APIXABAN 5 MG TABLET PO SCH ×2 (08:26→20:39)
[2023-02-02] MEDS: PHENAZOPYRIDINE HCL 100 MG TAB PO SCH ×3 (08:26→20:37)
[2023-02-02] MEDS: DOXYCYCLINE HYCLATE 100 MG CAP PO SCH ×2 (08:27→20:39)
[2023-02-02] MEDS: ATORVASTATIN 40 MG TAB PO SCH (08:27)
[2023-02-02] MEDS: MAGNESIUM OXIDE 400 MG TAB PO SCH ×2 (08:28→20:38)
[2023-02-02] MEDS: guaiFENesin 600 MG TABCR PO SCH ×2 (08:29→20:38)
[2023-02-02] MEDS: METOPROLOL SUCC 50MG EXT REL TAB PO SCH ×2 (08:29→20:38)
[2023-02-02] MEDS: FAMOTIDINE 20 MG TAB PO SCH (08:30)
[2023-02-02] MEDS: MONTELUKAST SODIUM 10 MG TABLET PO SCH (08:30)
[2023-02-02] MEDS: PANTOprazole 40 MG TAB PO SCH (08:30)
[2023-02-02] MEDS: TORSEMIDE 10 MG TAB PO SCH (08:31)
[2023-02-02] MEDS: POLYETHYLENE (MIRALAX) 17 GM PACK PO SCH (08:32)
[2023-02-02] MEDS: IPRATROPIUM BROMIDE NASAL SPRAY 0.06% 15ML NAE SCH ×2 (08:32→20:45)
--- NOTE | 2023-02-02 11:36 | Pharmacy Report ---
Pharmacy Glycemic Short Note 2 - Date of Service February 02, 2023 - Glycemic Short BSG Results (Last 24 hours): 02/01/23 02/01/23 02/01/23 16:10 20:04 23:21 Glucose POC Glucose 257 H 197 H 225 H 02/02/23 02/02/23 02/02/23 03:50 05:31 07:38 Glucose 194 H POC Glucose 219 H 193 H 02/02/23 11:10 Glucose POC Glucose 220 H OUTPATIENT ANTIDIABETIC REGIMEN: * Basaglar 65 units SC BID * Novolog 20-25 units SC BIDM * Metformin 1gm PO BID * Ozempic 2mg SC weekly * HbA1C: 8.5% (01/23/23) ASSESSMENT: 02/02: * Tiffanie received 339 units of insulin yesterday, 150 units basal + 189 units bolus. BSGs were: [phone] mg/dL. * Patient continues to snack in between meals causing validity of accuchecks to be questioned. * Fasting BSG 193 mg/dL this AM. No change to insulin regimen today. 01/30: * Patient received 256 units of insulin yesterday, 130 units of which were basal * "Fasting" this morning was 392 mg/dL; however per RN patient had uncovered snacks prior to this, therefore will continue current basal * Patient received 64 units of novolog for correctional this morning, ~0900 which may still be active with the lunch 388 mg/dL check, therefore loosened her correction factor with lunch to avoid stacking (had dropped from 322 to 194 mg/dL yesterday). * Patient having uncovered snacks; will add overnight BSG checks 01/28: * Tiffanie received 191 units of insulin yesterday of which 118 were basal * Fasting BSG elevated this AM, increase basal insulin by 10% back to home dosage * She continues on PO antibiotics, no additional glycemic stressors noted at this time * All BSGs over 200, tightened Novolog parameters further 01/27: * Pt is a 72 year old female admitted 01/23 with sepsis in the setting of an infected renal stone. History of DM2 on insulin, metformin and Ozempic at home. BSGs have remained elevated since admission. Pharmacy consulted to assist with glycemic management. * BSGs [phone]/dl the last 24h. Fasting BSG persistently elevated. Received 100 units of basal and 64 units of bolus insulin yesterday (titrated from 90 units and 42 units of bolus 01/25). * Tolerating diet and receiving PO antibiotics. * Further titrate basal today for total 60 units this AM and 58 units BID starting tonight. Novolog tightened to 12/. PLAN FOR INPATIENT GLYCEMIC CONTROL: * Hold outpatient oral diabetes medications * Basal insulin * Lantus 75 units BID * Bolus insulin * NovoLog per scale ACHS or Q6hrs while NPO * Goal Range: Low 110 mg/dL - High 140 mg/dL * Correction Factor: 6 mg/dL/unit * Nutritional / Prandial insulin per carb ratio of 1 unit per 2 grams CHO consumed
--- NOTE | 2023-02-02 11:59 | Cardiology Progress Note ---
Date of Service February 02, 2023 Assessment & Plan (1) Permanent atrial fibrillation: (2) Chronic heart failure with preserved ejection fraction: Plan 72 year old female with a pmhx of HFpEF, morbid obesity, COPD, CVA, who was admitted for urinary symptoms and found to have sepsis 2/2 a complicated UTI/infected kidney stone now s/p stent. She also was found to have acute on chronic decompensated HFpEF. Volume status improved with IV diuresis during hospitalization. Transition to oral torsemide today. Recommend oral torsemide 20 mg daily as outpatient. Continue metoprolol succinate 100 mg twice daily with oral digoxin 250 mcg daily. Repeat basic metabolic panel and digoxin level in approximately 1-2 weeks No further inpatient testing or intervention recommended at this time. Cardiology will sign off. Please call with questions. Admission and Anticipated Discharge Date Admission Date: January 23, 2023 Subjective Patient seen examined the bedside. Heart rate improved with addition of digoxin. Denies palpitations or chest comfort. No edema. Anxious for discharge. Review of Systems Review of Systems: All systems reviewed & are unremarkable except as noted in Subjective Physical Exam Constitutional: well nourished and + obese; no acute distress Respiratory: no respiratory distress, no labored breathing and no retractions Auscultation: no crackles, no rales, no rhonchi and no wheezes Cardiovascular: Rate/Rhythm: + tachycardic and + irregularly irregular Heart Sounds: normal S1 and normal S2 Vessels: no JVD and no carotid bruit Extremities: no edema Gastrointestinal (Abdomen): Inspection/Auscultation: normal bowel sounds; abdomen not distended Percussion/Palpation: abdomen soft; abdomen nontender, no guarding and abdomen not rigid Neurologic: CN's II-XI intact bilaterally and moves all extremities; no focal motor deficits Results & Data Vital Signs (Past 12 Hours) Vital Signs Temp Pulse Pulse Resp BP BP Pulse Ox 02/02/23 11:13 36.7 C 90 19 109/78 96 02/02/23 07:29 66 02/02/23 09:54 02/02/23 08:00 85 18 123/86 02/02/23 06:49 36.6 C 90 20 172/105 H 91 02/02/23 03:08 25 H 02/02/23 02:12 36.6 C 97 H 20 126/77 90 02/02/23 02:06 89 02/01/23 23:56 36.6 C 92 H 20 131/67 92 O2 Del Method O2 Flow Rate 02/02/23 11:13 Nasal Cannula 2.0 02/02/23 07:29 02/02/23 09:54 Nasal Cannula 1 02/02/23 08:00 02/02/23 06:49 Nasal Cannula 1 02/02/23 03:08 3 02/02/23 02:12 Nasal Cannula 2 02/02/23 02:06 02/01/23 23:56 Nasal Cannula 1 Laboratory Results CBC 02/02/23 Range/Units 05:31 WBC 8.83 (4.8-10.8) K/ul RBC 4.04 L (4.20-5.40) M/uL Hgb 11.1 L (12.0-16.0) g/dl Hct 34.6 L (37.0-47.0) % Plt Count 233 (130-400) K/uL Comprehensive Metabolic Panel 02/02/23 Range/Units 05:31 Sodium 137 (136-145) mmol/L Potassium 3.7 (3.5-5.1) mmol/L Chloride 99 (98-107) mmol/L Carbon Dioxide 30 (21-32) mmol/L BUN 27 H (6-23) mg/dl Creatinine 0.80 (0.6-1.2) mg/dl Glucose 194 H (70-99(Fasting)) mg/dl Calcium 9.5 (8.6-10.3) mg/dl Intake and Output 02/01/23 02/02/23 02/02/23 22:59 06:59 14:59 Output Total 2050 Balance - - Output: Urine Amount (Catheter) 650 / 1450 Miller/Indwelling 650 / 1450 # Bowel Movements
--- NOTE | 2023-02-02 12:56 | Hospitalist Progress Note ---
Date of Service February 02, 2023 Assessment & Plan (1) Ureteral calculus, right: (2) Acute heart failure with preserved ejection fraction (HFpEF): (3) Hydronephrosis with renal and ureteral calculous obstruction: (4) Morbid obesity: (5) Bipolar disorder: (6) Arthritis: (7) REENA (obstructive sleep apnea): (8) Paroxysmal atrial fibrillation: (9) Diabetes mellitus, type II: Plan 72 y/o F with PMH HTN, HLD, DM II, COPD, paroxysmal atrial fibrillation chronically anticoagulated on Eliquis, chronic diastolic heart failure, RBBB, CVA, kidney stones, bipolar disorder, REENA, morbid obesity presented to ER with multiple medical complaints.This is being managed for the following: Acute on chronic diastolic heart failure History of noncompliance, patient was dyspneic at presentation 2020 TTE with EF of 55 to 59%. Admitting BNP 156. Admitting echo with EF of 55 to 60%, no LV segmental wall motion abnormality. Diastolic dysfunction. Troponin negative at presentation. Admitting CXR with pulmonary edema. No airspace consolidation. CT chest with no PE. Atrial fibrillation Volume overload Currently on IV lasix 40mg BID. Transition to torsemide 20 mg daily Nodulizer evaluation and recommendations noted Continue digoxin 250 mcg daily. Continue metoprolol succinate 100 mg twice daily. Repeat BMP and digoxin level in approximately 1-2 weeks. Diltiazem was stopped on 01/29 due to leg edema Will monitor and follow up Nodulizer recs Continue eliquis Patient with history of yeast infections and recurrent UTI, likely a poor candidate therefore for treatment with an SGLT2 inhibitor. Was on lisinopril in April, stopped due to dizziness. Partially treated complicated UTI Infected renal stone/obstructive uropathy Severe sepsis POA: Secondary to above. SIRS positive, lactic acid elevation at presentation. Hematuria: Secondary to obstructive uropathy Patient came in with complaint of urinary frequency, dysuria in the setting of recent multiple courses of outpatient treatment for UTI. Admitting CTAP with obstructing 6 x 5 mm stone in the right proximal ureter and nonobstructing 5 mm right mid pole renal stone. Patient was started on aztreonam and daptomycin. Blood cultures are negative and there are no UA or Ucx this admission to reflect a specific pathogen. Outpatient records reveal no recent infection or culture data. Status post cystoscopy and right ureteral stent placement by urology 01/24/2023. Was on Ciprofloxacin till 01/30/23 Post operatively she reports acute left hip pain that is TTP of lateral area over GTB. Left CT hip reveals no acute fracture or dislocation. pain med regimen, PT/OT Will need follow-up with urology on discharge. Currently on po doxycycline for left leg cellulitis Other chronic medical conditions: Continue with/resume home meds as and when able. hypertension, stable hyperlipidemia on statin Rx, held d/t pt being on dapto. can resume history CVA as per records COPD, not in acute exacerbation REENA on CPAP DM2 insulin requiring, suboptimal control as of recent hemoglobin A1c of 9.06 September 2022, a1c 8.5 this admission. ? 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 tightened correction factor. mood disorder, very anxious regarding hip pain which was improved with Ativan (per previous provider). Cont PRN severe anxiety. past tobacco abuse hx MRSA morbid obesity DVT ppx - eliquis Full code Admission and Anticipated Discharge Date Admission Date: January 23, 2023 Subjective 72-year-old female presented with sepsis secondary to UTI, resuscitated. She underwent cystoscopy with a right ureteral stent insertion on 01/24. Hematuria resolved and pt was restarted on eliquis - pt is also on pyridium. She continues to require oxygen supplementation, breathing comfortably. No fever, chills, chest pain. Cardiology following closely. Review of Systems Review of Systems: All systems reviewed & are unremarkable except as noted in Subjective Physical Exam Physical Exam: CONSTITUTIONAL: obese F in NAD, on suppl. O2 EYES: normal conjunctivae, no scleral icterus ENT: external ear and nose normal, oropharynx clear, MMM NECK: trachea midline RESPIRATORY: clear to auscultation bilaterally, no crackles, no wheezes, normal respiratory effort CARDIOVASCULAR: irregular, S1 and 2 heard without murmurs, gallops or rubs, no JVD, no peripheral edema CHEST: inspection of chest was normal GASTROINTESTINAL: soft, nontender, ND no guarding, + obese abdomen. MUSCULOSKELETAL: head is normocephalic and atraumatic, moves extremities, + LLE erythema (improved) SKIN: warm and dry, no rashes NEURO/PSYCH: awake, alert, answers appropriately, no facial asymmetry, speech fluent, moves extremities Results & Data Results & Data Vital Signs (Past 12 Hours) Vital Signs Temp Pulse Pulse Resp BP BP Pulse Ox 02/02/23 11:13 36.7 C 90 19 109/78 96 02/02/23 07:29 66 02/02/23 09:54 02/02/23 08:00 85 18 123/86 02/02/23 06:49 36.6 C 90 20 172/105 H 91 02/02/23 03:08 25 H 02/02/23 02:12 36.6 C 97 H 20 126/77 90 02/02/23 02:06 89 O2 Del Method O2 Flow Rate 02/02/23 11:13 Nasal Cannula 2.0 02/02/23 07:29 02/02/23 09:54 Nasal Cannula 1 02/02/23 08:00 02/02/23 06:49 Nasal Cannula 1 02/02/23 03:08 3 02/02/23 02:12 Nasal Cannula 2 02/02/23 02:06 Laboratory Results 02/02/23 02/02/23 02/02/23 Range/Units 11:10 07:38 05:31 WBC (4.8-10.8) K/ul RBC (4.20-5.40) M/uL Hgb (12.0-16.0) g/dl Hct (37.0-47.0) % MCV (80.0-100.0) fL MCH (25.0-34.0) pg MCHC (32.0-36.0) g/dL RDW Std Deviation (36.4-46.3) fL RDW Coeff of [place] (11.5-14.5) % Plt Count (130-400) K/uL MPV (9.4-12.4) fL Sodium 137 (136-145) mmol/L Potassium 3.7 (3.5-5.1) mmol/L Chloride 99 (98-107) mmol/L Carbon Dioxide 30 (21-32) mmol/L Anion Gap 8 (3-11) BUN 27 H (6-23) mg/dl Creatinine 0.80 (0.6-1.2) mg/dl Est Cr Clr Drug Dosing 96.4 ml/min Est GFR ( Amer) 86.6 ml/min Est GFR (Non-Af Amer) 74.7 ml/min BUN/Creatinine Ratio 33.8 H (10-20) Glucose 194 H (70-99(Fasting)) mg/dl POC Glucose 220 H 193 H (70-99) mg/dl Calcium 9.5 (8.6-10.3) mg/dl Phosphorus 4.2 D (2.5-4.9) mg/dl Magnesium 1.7 (1.7-2.4) mg/dl 02/02/23 02/02/23 02/01/23 Range/Units 05:31 03:50 23:21 WBC 8.83 (4.8-10.8) K/ul RBC 4.04 L (4.20-5.40) M/uL Hgb 11.1 L (12.0-16.0) g/dl Hct 34.6 L (37.0-47.0) % MCV 85.6 (80.0-100.0) fL MCH 27.5 (25.0-34.0) pg MCHC 32.1 (32.0-36.0) g/dL RDW Std Deviation 52.1 H (36.4-46.3) fL RDW Coeff of [place] 16.7 H (11.5-14.5) % Plt Count 233 (130-400) K/uL MPV 10.5 (9.4-12.4) fL Sodium (136-145) mmol/L Potassium (3.5-5.1) mmol/L Chloride (98-107) mmol/L Carbon Dioxide (21-32) mmol/L Anion Gap (3-11) BUN (6-23) mg/dl Creatinine (0.6-1.2) mg/dl Est Cr Clr Drug Dosing ml/min Est GFR ( Amer) ml/min Est GFR (Non-Af Amer) ml/min BUN/Creatinine Ratio (10-20) Glucose (70-99(Fasting)) mg/dl POC Glucose 219 H 225 H (70-99) mg/dl Calcium (8.6-10.3) mg/dl Phosphorus (2.5-4.9) mg/dl Magnesium (1.7-2.4) mg/dl 02/01/23 02/01/23 Range/Units 20:04 16:10 WBC (4.8-10.8) K/ul RBC (4.20-5.40) M/uL Hgb (12.0-16.0) g/dl Hct (37.0-47.0) % MCV (80.0-100.0) fL MCH (25.0-34.0) pg MCHC (32.0-36.0) g/dL RDW Std Deviation (36.4-46.3) fL RDW Coeff of [place] (11.5-14.5) % Plt Count (130-400) K/uL MPV (9.4-12.4) fL Sodium (136-145) mmol/L Potassium (3.5-5.1) mmol/L Chloride (98-107) mmol/L Carbon Dioxide (21-32) mmol/L Anion Gap (3-11) BUN (6-23) mg/dl Creatinine (0.6-1.2) mg/dl Est Cr Clr Drug Dosing ml/min Est GFR ( Amer) ml/min Est GFR (Non-Af Amer) ml/min BUN/Creatinine Ratio (10-20) Glucose (70-99(Fasting)) mg/dl POC Glucose 197 H 257 H (70-99) mg/dl Calcium (8.6-10.3) mg/dl Phosphorus (2.5-4.9) mg/dl Magnesium (1.7-2.4) mg/dl Medications Administered Current Inpatient Medications Acetaminophen (Acetaminophen 500 Mg Tab) 1,000 mg PO Q8 PRN PRN Reason: Pain or Fever Stop: 02/24/23 15:15 Last Admin: 02/01/23 08:24 Dose: 1,000 mg Albuterol (Albuterol 0.5% Neb Soln 2.5 Mg/0.5 Ml Vial) 2.5 mg NEB Q6R PRN; Protocol PRN Reason: sob/wheezing Stop: 02/26/23 00:59 Last Admin: 01/31/23 22:44 Dose: 2.5 mg Apixaban (Apixaban 5 Mg Tablet) 5 mg PO BID GARIMA Stop: 03/01/23 20:59 Last Admin: 02/02/23 08:26 Dose: 5 mg Atorvastatin Calcium (Atorvastatin 40 Mg Tab) 40 mg PO DAILY GARIMA Stop: 02/23/23 08:59 Last Admin: 02/02/23 08:27 Dose: 40 mg Dextrose (Dextrose 50% 50 Ml Syringe) 25 - 50 ml IV UD PRN; Protocol PRN Reason: Hypoglycemia Protocol Stop: 02/22/23 23:57 Digoxin (Digoxin 0.25 Mg Tab) 0.25 mg PO DAILY@1600 [facility] Stop: 03/03/23 15:59 Last Admin: 02/01/23 16:55 Dose: 0.25 mg Doxycycline Hyclate (Doxycycline Hyclate 100 Mg Cap) 100 mg PO BID [facility] Stop: 02/04/23 20:59 Last Admin: 02/02/23 08:27 Dose: 100 mg Famotidine (Famotidine 20 Mg Tab) 20 mg PO DAILY [facility] Stop: 02/23/23 08:59 Last Admin: 02/02/23 08:30 Dose: 20 mg Glucagon (Glucagon For Inj 1 Mg Vial) 1 mg SQ UD PRN; Protocol PRN Reason: Hypoglycemia Protocol Stop: 02/22/23 23:57 Glucose (Glucose 10 Tab/Tube) 4 - 8 tab PO UD PRN; Protocol PRN Reason: Hypoglycemia Treatment Stop: 02/22/23 23:57 Glucose (Glucose 40% Gel 15 Gm Tube) 15 - 30 gm PO UD PRN; Protocol PRN Reason: Hypoglycemia Protocol Stop: 02/22/23 23:57 Glycerin (Glycerin Adult 12 Supp/Box Supp) 1 supp LA Q24H PRN PRN Reason: Constipation Stop: 02/26/23 18:57 Guaifenesin (Guaifenesin 600 Mg Tabcr) 600 mg PO Q12 [facility] Stop: 02/25/23 20:59 Last Admin: 02/02/23 08:29 Dose: 600 mg Promethazine HCl 12.5 mg/ (Sodium Chloride) 50.5 mls @ 202 mls/hr IV Q6H PRN PRN Reason: Nausea And Vomiting Stop: 02/22/23 22:28 Insulin Aspart (Insulin Aspart Per Unit Charge) 0 units SC ACHS [facility]; Protocol Stop: 02/23/23 13:29 Last Admin: 02/02/23 12:10 Dose: 34 units Insulin Glargine (Lantus Per Unit Charge) 75 units SQ BID [facility]; Protocol Stop: 03/02/23 20:59 Last Admin: 02/02/23 08:12 Dose: 75 units Ipratropium [place] (Ipratropium [place] Nasal [place] 0.06% 15ml) 1 sprays ANIBAL AMHS [facility] Stop: 02/23/23 08:59 Last Admin: 02/02/23 08:32 Dose: 1 sprays Lidocaine (Lidocaine 5% 1 Patch) 2 patch TD HS [facility] Stop: 02/25/23 20:59 Last Admin: 02/01/23 20:22 Dose: 2 patch Lorazepam (Lorazepam 0.5 Mg Tab) 0.5 mg PO Q8H PRN PRN Reason: Anxiety Stop: 02/24/23 16:21 Last Admin: 02/01/23 23:32 Dose: 0.5 mg Magnesium Oxide (Magnesium Oxide 400 Mg Tab) 400 mg PO BID G[facility]IM[facility] Stop: 03/01/23 20:59 Last Admin: 02/02/23 08:28 Dose: 400 mg Metoprolol Succinate (Metoprolol Succ 50mg Ext Rel Tab) 100 mg PO BID [facility] Stop: 02/28/23 20:59 Last Admin: 02/02/23 08:29 Dose: 100 mg Miconazole Nitrate (Miconazole Nitrate Powder 85 Gm) 1 appln EXT BID PRN PRN Reason: skin fold irritation Stop: 02/24/23 17:57 Miscellaneous (Carbohydrates For Hypoglycemia ) 15 - 30 gm PO UD PRN PRN Reason: Hypoglycemia Protocol Stop: 02/22/23 23:57 Miscellaneous (Remove Lidoderm Patch) 2 each N/A QAM [facility] Stop: 02/23/23 10:59 Last Admin: 02/02/23 08:32 Dose: 2 each Miscellaneous Information (Pharmacy Glycemic Mgmt Consult) 1 each N/A UD PRN; Protocol PRN Reason: Consult Stop: 02/26/23 10:28 Montelukast Sodium (Montelukast Sodium 10 Mg Tablet) 10 mg PO DAILY [facility] Stop: 02/23/23 08:59 Last Admin: 02/02/23 08:30 Dose: 10 mg Nitroglycerin (Nitroglycerin Sl 0.4 Mg/Tab Tab) 0.4 mg SL Q5M PRN PRN Reason: Chest Pain Stop: 02/22/23 23:57 Oxycodone HCl (Oxycodone Hcl Ir 5 Mg Tab (Immediate Release)) 5 mg PO Q6H PRN PRN Reason: severe pain 7-10 Stop: 02/08/23 15:14 Last Admin: 02/02/23 08:21 Dose: 5 mg Pantoprazole Sodium (Pantoprazole 40 Mg Tab) 40 mg PO DAILY [facility] Stop: 02/23/23 08:59 Last Admin: 02/02/23 08:30 Dose: 40 mg Phenazopyridine HCl (Phenazopyridine Hcl 100 Mg Tab) 100 mg PO TID [facility] Stop: 02/24/23 15:29 Last Admin: 02/02/23 08:26 Dose: 100 mg Polyethylene Glycol (Polyethylene (Miralax) 17 Gm Pack) 17 gm PO DAILY [facility] Stop: 02/26/23 18:59 Last Admin: 02/02/23 08:32 Dose: 17 gm Tamsulosin HCl (Tamsulosin Hcl 0.4 Mg Cap) 0.4 mg PO HS [facility] Stop: 02/23/23 20:59 Last Admin: 02/01/23 20:18 Dose: 0.4 mg Torsemide (Torsemide 10 Mg Tab) 20 mg PO QAM [facility] Stop: 03/04/23 08:59 Last Admin: 02/02/23 08:31 Dose: 20 mg Tramadol HCl (Tramadol Hcl 50 Mg Tablet) 25 - 50 mg PO Q4H PRN PRN Reason: Pain Stop: 02/22/23 22:28 Last Admin: 01/25/23 10:32 Dose: 50 mg Trolamine Salicylate (Trolamine Salicylate 10% Crm 255 Appln/85 Gm Tube) 1 appln EXT TID PRN PRN Reason: joint pain Stop: 02/24/23 15:15 Last Admin: 01/30/23 03:02 Dose: 1 appln
[2023-02-02] MEDS: DIGOXIN 0.25 MG TAB PO SCH (16:14)
[2023-02-02] MEDS: TAMSULOSIN HCL 0.4 MG CAP PO SCH (20:37)
[2023-02-02] MEDS: LIDOCAINE 5% 1 PATCH TD SCH (20:39)
[2023-02-03] MEDS: INSULIN ASPART PER UNIT CHARGE SC SCH ×4 (08:38→20:37)
[2023-02-03] MEDS: metFORMIN HCL 500 MG TAB PO SCH ×2 (08:38→18:53)
[2023-02-03] MEDS: guaiFENesin 600 MG TABCR PO SCH ×2 (08:39→20:26)
[2023-02-03] MEDS: DOXYCYCLINE HYCLATE 100 MG CAP PO SCH ×2 (08:39→20:27)
[2023-02-03] MEDS: APIXABAN 5 MG TABLET PO SCH ×2 (08:39→20:27)
[2023-02-03] MEDS: METOPROLOL SUCC 50MG EXT REL TAB PO SCH ×2 (08:40→20:26)
[2023-02-03] MEDS: MAGNESIUM OXIDE 400 MG TAB PO SCH ×2 (08:40→20:26)
[2023-02-03] MEDS: IPRATROPIUM BROMIDE NASAL SPRAY 0.06% 15ML NAE SCH ×2 (08:40→20:30)
[2023-02-03] MEDS: TORSEMIDE 10 MG TAB PO SCH (08:41)
[2023-02-03] MEDS: PHENAZOPYRIDINE HCL 100 MG TAB PO SCH ×3 (08:41→20:26)
[2023-02-03] MEDS: ATORVASTATIN 40 MG TAB PO SCH (08:42)
[2023-02-03] MEDS: MONTELUKAST SODIUM 10 MG TABLET PO SCH (08:42)
[2023-02-03] MEDS: LANTUS PER UNIT CHARGE SQ SCH ×2 (08:43→20:37)
[2023-02-03] MEDS: PANTOprazole 40 MG TAB PO SCH (08:43)
[2023-02-03] MEDS: FAMOTIDINE 20 MG TAB PO SCH (08:44)
[2023-02-03] MEDS: POLYETHYLENE (MIRALAX) 17 GM PACK PO SCH (08:44)
--- NOTE | 2023-02-03 11:58 | Pharmacy Report ---
Pharmacy Glycemic Short Note 2 - Date of Service February 03, 2023 - Glycemic Short BSG Results (Last 24 hours): 02/02/23 02/02/23 02/03/23 16:28 20:23 07:41 POC Glucose 293 H 243 H 340 H* 02/03/23 02/03/23 02/03/23 07:42 11:32 11:33 POC Glucose 344 H* 364 H* 367 H* OUTPATIENT ANTIDIABETIC REGIMEN: * Basaglar 65 units SC BID * Novolog 20-25 units SC BIDM * Metformin 1gm PO BID * Ozempic 2mg SC weekly * HbA1C: 8.5% (01/23/23) ASSESSMENT: 02/03: * Patient received 324 units of insulin yesterday, 150 units basal + 174 units bolus. BSGs were: [phone] mg/dL. * Patient continues to snack so BSGs likely unreliable. RN today reports finding multiple empty sugar packets in room. * Will start Metformin from home today. No other changes. 02/02: * Tiffanie received 339 units of insulin yesterday, 150 units basal + 189 units bolus. BSGs were: [phone] mg/dL. * Patient continues to snack in between meals causing validity of accuchecks to be questioned. * Fasting BSG 193 mg/dL this AM. No change to insulin regimen today. 01/30: * Patient received 256 units of insulin yesterday, 130 units of which were basal * "Fasting" this morning was 392 mg/dL; however per RN patient had uncovered snacks prior to this, therefore will continue current basal * Patient received 64 units of novolog for correctional this morning, ~0900 which may still be active with the lunch 388 mg/dL check, therefore loosened her correction factor with lunch to avoid stacking (had dropped from 322 to 194 mg/dL yesterday). * Patient having uncovered snacks; will add overnight BSG checks 01/28: * Tiffanie received 191 units of insulin yesterday of which 118 were basal * Fasting BSG elevated this AM, increase basal insulin by 10% back to home dosage * She continues on PO antibiotics, no additional glycemic stressors noted at this time * All BSGs over 200, tightened Novolog parameters further 01/27: * Pt is a 72 year old female admitted 01/23 with sepsis in the setting of an infected renal stone. History of DM2 on insulin, metformin and Ozempic at home. BSGs have remained elevated since admission. Pharmacy consulted to assist with glycemic management. * BSGs [phone]/dl the last 24h. Fasting BSG persistently elevated. Received 100 units of basal and 64 units of bolus insulin yesterday (titrated from 90 units and 42 units of bolus 01/25). * Tolerating diet and receiving PO antibiotics. * Further titrate basal today for total 60 units this AM and 58 units BID starting tonight. Novolog tightened to 12/. PLAN FOR INPATIENT GLYCEMIC CONTROL: * Home Meds * Metformin 1000 mg PO BIDM * Basal insulin * Lantus 75 units BID * Bolus insulin * NovoLog per scale ACHS or Q6hrs while NPO * Goal Range: Low 110 mg/dL - High 140 mg/dL * Correction Factor: 6 mg/dL/unit * Nutritional / Prandial insulin per carb ratio of 1 unit per 2 grams CHO consumed
[2023-02-03] MEDS: ACETAMINOPHEN 500 MG TAB PO PRN ×2 (12:18→23:19)
[2023-02-03] MEDS: DIGOXIN 0.25 MG TAB PO SCH (17:15)
--- NOTE | 2023-02-03 19:05 | Hospitalist Progress Note ---
Date of Service February 03, 2023 Assessment & Plan (1) Ureteral calculus, right: (2) Acute heart failure with preserved ejection fraction (HFpEF): (3) Hydronephrosis with renal and ureteral calculous obstruction: (4) Morbid obesity: (5) Bipolar disorder: (6) Arthritis: (7) REENA (obstructive sleep apnea): (8) Paroxysmal atrial fibrillation: (9) Diabetes mellitus, type II: Plan 72 y/o F with PMH HTN, HLD, DM II, COPD, paroxysmal atrial fibrillation chronically anticoagulated on Eliquis, chronic diastolic heart failure, RBBB, CVA, kidney stones, bipolar disorder, REENA, morbid obesity presented to ER with multiple medical complaints.This is being managed for the following: Acute on chronic diastolic heart failure History of noncompliance, patient was dyspneic at presentation 2020 TTE with EF of 55 to 59%. Admitting BNP 156. Admitting echo with EF of 55 to 60%, no LV segmental wall motion abnormality. Diastolic dysfunction. Troponin negative at presentation. Admitting CXR with pulmonary edema. No airspace consolidation. CT chest with no PE. Atrial fibrillation Volume overload Currently on IV lasix 40mg BID. Transition to torsemide 20 mg daily Ekg Monitor Tech evaluation and recommendations noted Continue digoxin 250 mcg daily. Continue metoprolol succinate 100 mg twice daily. Repeat BMP and digoxin level in approximately 1-2 weeks. Diltiazem was stopped on 01/29 due to leg edema Will monitor and follow up Ekg Monitor Tech recs Continue eliquis Patient with history of yeast infections and recurrent UTI, likely a poor candidate therefore for treatment with an SGLT2 inhibitor. Was on lisinopril in April, stopped due to dizziness. Partially treated complicated UTI Infected renal stone/obstructive uropathy Severe sepsis POA: Secondary to above. SIRS positive, lactic acid elevation at presentation. Hematuria: Secondary to obstructive uropathy Patient came in with complaint of urinary frequency, dysuria in the setting of recent multiple courses of outpatient treatment for UTI. Admitting CTAP with obstructing 6 x 5 mm stone in the right proximal ureter and nonobstructing 5 mm right mid pole renal stone. Patient was started on aztreonam and daptomycin. Blood cultures are negative and there are no UA or Ucx this admission to reflect a specific pathogen. Outpatient records reveal no recent infection or culture data. Status post cystoscopy and right ureteral stent placement by urology 01/24/2023. Was on Ciprofloxacin till 01/30/23 Post operatively she reports acute left hip pain that is TTP of lateral area over GTB. Left CT hip reveals no acute fracture or dislocation. pain med regimen, PT/OT Will need follow-up with urology on discharge. Currently on po doxycycline for left leg cellulitis Other chronic medical conditions: Continue with/resume home meds as and when able. hypertension, stable hyperlipidemia on statin Rx, held d/t pt being on dapto. can resume history CVA as per records COPD, not in acute exacerbation REENA on CPAP DM2 insulin requiring, suboptimal control as of recent hemoglobin A1c of 9.06 September 2022, a1c 8.5 this admission. ? 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 tightened correction factor. mood disorder, very anxious regarding hip pain which was improved with Ativan (per previous provider). Cont PRN severe anxiety. past tobacco abuse hx MRSA morbid obesity DVT ppx - eliquis Full code Admission and Anticipated Discharge Date Admission Date: January 23, 2023 Subjective 72-year-old female presented with sepsis secondary to UTI, resuscitated. She underwent cystoscopy with a right ureteral stent insertion on 01/24. Hematuria resolved and pt was restarted on eliquis - pt is also on pyridium. She continues to require oxygen supplementation, breathing comfortably. No fever, chills, chest pain. Cardiology following closely. Plan to dc to rehab Review of Systems Review of Systems: All systems reviewed & are unremarkable except as noted in Subjective Physical Exam Physical Exam: CONSTITUTIONAL: obese F in NAD, on suppl. O2 EYES: normal conjunctivae, no scleral icterus ENT: external ear and nose normal, oropharynx clear, MMM NECK: trachea midline RESPIRATORY: clear to auscultation bilaterally, no crackles, no wheezes, normal respiratory effort CARDIOVASCULAR: irregular, S1 and 2 heard without murmurs, gallops or rubs, no JVD, no peripheral edema CHEST: inspection of chest was normal GASTROINTESTINAL: soft, nontender, ND no guarding, + obese abdomen. MUSCULOSKELETAL: head is normocephalic and atraumatic, moves extremities, + LLE erythema (improved) SKIN: warm and dry, no rashes NEURO/PSYCH: awake, alert, answers appropriately, no facial asymmetry, speech fluent, moves extremities Results & Data Results & Data Vital Signs (Past 12 Hours) Vital Signs Temp Pulse Pulse Resp BP BP Pulse Ox 02/03/23 17:15 92 H 02/03/23 15:53 36.4 C L 92 H 21 130/71 95 02/03/23 15:41 93 H 02/03/23 11:47 36.5 C 90 19 132/73 95 02/03/23 07:25 94 H 02/03/23 09:40 02/03/23 08:12 36.6 C 88 19 131/75 97 O2 Del Method O2 Flow Rate 02/03/23 17:15 02/03/23 15:53 Nasal Cannula 1 02/03/23 15:41 02/03/23 11:47 Room Air 02/03/23 07:25 02/03/23 09:40 Nasal Cannula 1 02/03/23 08:12 Nasal Cannula 1 Medications Administered Current Inpatient Medications Acetaminophen (Acetaminophen 500 Mg Tab) 1,000 mg PO Q8 PRN PRN Reason: Pain or Fever Stop: 02/24/23 15:15 Last Admin: 02/03/23 12:18 Dose: 1,000 mg Albuterol (Albuterol 0.5% Neb Soln 2.5 Mg/0.5 Ml Vial) 2.5 mg NEB Q6R PRN; Protocol PRN Reason: sob/wheezing Stop: 02/26/23 00:59 Last Admin: 01/31/23 22:44 Dose: 2.5 mg Apixaban (Apixaban 5 Mg Tablet) 5 mg PO BID GARIMA Stop: 03/01/23 20:59 Last Admin: 02/03/23 08:39 Dose: 5 mg Atorvastatin Calcium (Atorvastatin 40 Mg Tab) 40 mg PO DAILY GARIMA Stop: 02/23/23 08:59 Last Admin: 02/03/23 08:42 Dose: 40 mg Dextrose (Dextrose 50% 50 Ml Syringe) 25 - 50 ml IV UD PRN; Protocol PRN Reason: Hypoglycemia Protocol Stop: 02/22/23 23:57 Digoxin (Digoxin 0.25 Mg Tab) 0.25 mg PO DAILY@1600 GARIMA Stop: 03/03/23 15:59 Last Admin: 02/03/23 17:15 Dose: 0.25 mg Doxycycline Hyclate (Doxycycline Hyclate 100 Mg Cap) 100 mg PO BID GARIMA Stop: 02/04/23 20:59 Last Admin: 02/03/23 08:39 Dose: 100 mg Famotidine (Famotidine 20 Mg Tab) 20 mg PO DAILY GARIMA Stop: 02/23/23 08:59 Last Admin: 02/03/23 08:44 Dose: 20 mg Glucagon (Glucagon For Inj 1 Mg Vial) 1 mg SQ UD PRN; Protocol PRN Reason: Hypoglycemia Protocol Stop: 02/22/23 23:57 Glucose (Glucose 10 Tab/Tube) 4 - 8 tab PO UD PRN; Protocol PRN Reason: Hypoglycemia Treatment Stop: 02/22/23 23:57 Glucose (Glucose 40% Gel 15 Gm Tube) 15 - 30 gm PO UD PRN; Protocol PRN Reason: Hypoglycemia Protocol Stop: 02/22/23 23:57 Glycerin (Glycerin Adult 12 Supp/Box Supp) 1 supp PA Q24H PRN PRN Reason: Constipation Stop: 02/26/23 18:57 Guaifenesin (Guaifenesin 600 Mg Tabcr) 600 mg PO Q12 GARIMA Stop: 02/25/23 20:59 Last Admin: 02/03/23 08:39 Dose: 600 mg Promethazine HCl 12.5 mg/ (Sodium Chloride) 50.5 mls @ 202 mls/hr IV Q6H PRN PRN Reason: Nausea And Vomiting Stop: 02/22/23 22:28 Insulin Aspart (Insulin Aspart Per Unit Charge) 0 units SC ACHS [facility]; Protocol Stop: 02/23/23 13:29 Last Admin: 02/03/23 17:14 Dose: 37 units Insulin Glargine (Lantus Per Unit Charge) 75 units SQ BID [facility]; Protocol Stop: 03/02/23 20:59 Last Admin: 02/03/23 08:43 Dose: 75 units Ipratropium Dawson (Ipratropium Dawson Nasal [place] 0.06% 15ml) 1 sprays ANIBAL AMHS [facility] Stop: 02/23/23 08:59 Last Admin: 02/03/23 08:40 Dose: 1 sprays Lidocaine (Lidocaine 5% 1 Patch) 2 patch TD HS [facility] Stop: 02/25/23 20:59 Last Admin: 02/02/23 20:39 Dose: 1 patch Lorazepam (Lorazepam 0.5 Mg Tab) 0.5 mg PO Q8H PRN PRN Reason: Anxiety Stop: 02/24/23 16:21 Last Admin: 02/01/23 23:32 Dose: 0.5 mg Magnesium Oxide (Magnesium Oxide 400 Mg Tab) 400 mg PO BID [facility] Stop: 03/01/23 20:59 Last Admin: 02/03/23 08:40 Dose: 400 mg Metformin HCl (Metformin Hcl 500 Mg Tab) 1,000 mg PO BIDM [facility]; Protocol Stop: 03/05/23 07:59 Last Admin: 02/03/23 18:53 Dose: 1,000 mg Metoprolol Succinate (Metoprolol Succ 50mg Ext Rel Tab) 100 mg PO BID [facility] Stop: 02/28/23 20:59 Last Admin: 02/03/23 08:40 Dose: 100 mg Miconazole Nitrate (Miconazole Nitrate Powder 85 Gm) 1 appln EXT BID PRN PRN Reason: skin fold irritation Stop: 02/24/23 17:57 Miscellaneous (Carbohydrates For Hypoglycemia ) 15 - 30 gm PO UD PRN PRN Reason: Hypoglycemia Protocol Stop: 02/22/23 23:57 Miscellaneous (Remove Lidoderm Patch) 2 each N/A QAM [facility] Stop: 02/23/23 10:59 Last Admin: 02/03/23 08:43 Dose: 2 each Miscellaneous Information (Pharmacy Glycemic Mgmt Consult) 1 each N/A UD PRN; Protocol PRN Reason: Consult Stop: 02/26/23 10:28 Montelukast Sodium (Montelukast Sodium 10 Mg Tablet) 10 mg PO DAILY [facility] Stop: 02/23/23 08:59 Last Admin: 02/03/23 08:42 Dose: 10 mg Nitroglycerin (Nitroglycerin Sl 0.4 Mg/Tab Tab) 0.4 mg SL Q5M PRN PRN Reason: Chest Pain Stop: 02/22/23 23:57 Oxycodone HCl (Oxycodone Hcl Ir 5 Mg Tab (Immediate Release)) 5 mg PO Q6H PRN PRN Reason: severe pain 7-10 Stop: 02/08/23 15:14 Last Admin: 02/02/23 08:21 Dose: 5 mg Pantoprazole Sodium (Pantoprazole 40 Mg Tab) 40 mg PO DAILY [facility] Stop: 02/23/23 08:59 Last Admin: 02/03/23 08:43 Dose: 40 mg Phenazopyridine HCl (Phenazopyridine Hcl 100 Mg Tab) 100 mg PO TID [facility] Stop: 02/24/23 15:29 Last Admin: 02/03/23 14:57 Dose: 100 mg Polyethylene Glycol (Polyethylene (Miralax) 17 Gm Pack) 17 gm PO DAILY G[facility]IM[facility] Stop: 02/26/23 18:59 Last Admin: 02/03/23 08:44 Dose: 17 gm Tamsulosin HCl (Tamsulosin Hcl 0.4 Mg Cap) 0.4 mg PO HS [facility] Stop: 02/23/23 20:59 Last Admin: 02/02/23 20:37 Dose: 0.4 mg Torsemide (Torsemide 10 Mg Tab) 20 mg PO QAM [facility] Stop: 03/04/23 08:59 Last Admin: 02/03/23 08:41 Dose: 20 mg Tramadol HCl (Tramadol Hcl 50 Mg Tablet) 25 - 50 mg PO Q4H PRN PRN Reason: Pain Stop: 02/22/23 22:28 Last Admin: 01/25/23 10:32 Dose: 50 mg Trolamine Salicylate (Trolamine Salicylate 10% Crm 255 Appln/85 Gm Tube) 1 appln EXT TID PRN PRN Reason: joint pain Stop: 02/24/23 15:15 Last Admin: 01/30/23 03:02 Dose: 1 appln
[2023-02-03] MEDS: TAMSULOSIN HCL 0.4 MG CAP PO SCH (20:26)
[2023-02-03] MEDS: LIDOCAINE 5% 1 PATCH TD SCH (20:27)
[2023-02-03] MEDS: LORazepam 0.5 MG TAB PO PRN (23:20)
[2023-02-04] MEDS: metFORMIN HCL 500 MG TAB PO SCH ×2 (08:00→17:32)
[2023-02-04] MEDS: INSULIN ASPART PER UNIT CHARGE SC SCH ×4 (08:05→21:50)
[2023-02-04] MEDS: LANTUS PER UNIT CHARGE SQ SCH ×2 (08:06→21:52)
[2023-02-04] MEDS: APIXABAN 5 MG TABLET PO SCH ×2 (08:11→21:41)
[2023-02-04] MEDS: DOXYCYCLINE HYCLATE 100 MG CAP PO SCH (08:11)
[2023-02-04] MEDS: ATORVASTATIN 40 MG TAB PO SCH (08:12)
[2023-02-04] MEDS: MONTELUKAST SODIUM 10 MG TABLET PO SCH (08:12)
[2023-02-04] MEDS: FAMOTIDINE 20 MG TAB PO SCH (08:13)
[2023-02-04] MEDS: TORSEMIDE 10 MG TAB PO SCH (08:13)
[2023-02-04] MEDS: guaiFENesin 600 MG TABCR PO SCH ×2 (08:14→21:40)
[2023-02-04] MEDS: PHENAZOPYRIDINE HCL 100 MG TAB PO SCH ×3 (08:14→21:41)
[2023-02-04] MEDS: POLYETHYLENE (MIRALAX) 17 GM PACK PO SCH (08:15)
[2023-02-04] MEDS: MAGNESIUM OXIDE 400 MG TAB PO SCH (08:15)
[2023-02-04] MEDS: PANTOprazole 40 MG TAB PO SCH (08:15)
[2023-02-04] MEDS: METOPROLOL SUCC 50MG EXT REL TAB PO SCH ×2 (08:15→21:40)
[2023-02-04] MEDS: IPRATROPIUM BROMIDE NASAL SPRAY 0.06% 15ML NAE SCH ×2 (09:25→21:49)
--- NOTE | 2023-02-04 16:13 | Hospitalist Progress Note ---
Date of Service February 04, 2023 Assessment & Plan (1) Ureteral calculus, right: (2) Acute heart failure with preserved ejection fraction (HFpEF): (3) Hydronephrosis with renal and ureteral calculous obstruction: (4) Morbid obesity: (5) Bipolar disorder: (6) Arthritis: (7) REENA (obstructive sleep apnea): (8) Paroxysmal atrial fibrillation: (9) Diabetes mellitus, type II: Plan 72 y/o F with PMH HTN, HLD, DM II, COPD, paroxysmal atrial fibrillation chronically anticoagulated on Eliquis, chronic diastolic heart failure, RBBB, CVA, kidney stones, bipolar disorder, REENA, morbid obesity presented to ER with multiple medical complaints.This is being managed for the following: Acute on chronic diastolic heart failure History of noncompliance, patient was dyspneic at presentation Atrial fibrillation Volume overload --CXR:Cardiomegaly with evidence of congestive failure and mild pulmonary edema. Emphysema. No airspace consolidation or large pleural effusion is identified. --ECHO: The study was technically difficult. Contrast was used to opacify the LV. EF 55 to 60%. Normal LV segmental wall motion abnormalities. Diastolic function is abnormal. Right ventricle is not well visualized. --Venous Doppler:Exam compromised by suboptimal penetration but no evidence of deep venous thrombus within the left lower extremity. --Chest CTA:No acute pulmonary embolism. --BNP 156. --Negative Troponin --Patient with history of yeast infections and recurrent UTI, likely a poor candidate therefore for treatment with an SGLT2 inhibitor. Was on lisinopril in April, stopped due to dizziness. --IV lasix 40mg BID transitioned to torsemide 20 mg daily Appreciate Cardiology recommendations Continue digoxin 250 mcg daily, metoprolol succinate 100 mg twice daily. Diltiazem was stopped on 01/29 due to leg edema continue eliquis Volume status improved Needs follow-up with cardiology upon discharge As per prior provider: Partially treated complicated UTI Infected renal stone/obstructive uropathy Severe sepsis POA: Secondary to above. SIRS positive, lactic acid elevation at presentation. Hematuria: Secondary to obstructive uropathy Patient came in with complaint of urinary frequency, dysuria in the setting of recent multiple courses of outpatient treatment for UTI. Admitting CTAP with obstructing 6 x 5 mm stone in the right proximal ureter and nonobstructing 5 mm right mid pole renal stone. Patient was started on aztreonam and daptomycin. Blood cultures are negative and there are no UA or Ucx this admission to reflect a specific pathogen. Outpatient records reveal no recent infection or culture data. Status post cystoscopy and right ureteral stent placement by urology 01/24/2023. Was on Ciprofloxacin till 01/30/23 Post operatively she reports acute left hip pain that is TTP of lateral area ov er GTB. Left CT hip reveals no acute fracture or dislocation. pain med regimen, PT/OT Will need follow-up with urology on discharge. Currently on po doxycycline for left leg cellulitis Other chronic medical conditions: Continue with/resume home meds as and when able. hypertension, stable hyperlipidemia on statin Rx, held d/t pt being on dapto. can resume history CVA as per records COPD, not in acute exacerbation REENA on CPAP DM2 insulin requiring, suboptimal control as of recent hemoglobin A1c of 9.06 September 2022, a1c 8.5 this admission. ? compliance issues. 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 Continue with basal/bolus insulin. Monitor blood glucose levels mood disorder, very anxious regarding hip pain which was improved with Ativan (per previous provider). Cont PRN severe anxiety. past tobacco abuse Morbid obesity: BMI 53 DVT px Eliquis CODE STATUS Full code Disposition SNF as able Admission and Anticipated Discharge Date Admission Date: January 23, 2023 Subjective Patient is seen and examined at bedside States feeling well today Offers no new complaints Waiting for rehab placement Denies any chest pain, dyspnea, dizziness, nausea, vomiting, abdominal pain Review of Systems Review of Systems: All systems reviewed & are unremarkable except as noted in Subjective Physical Exam Physical Exam: Physical Exam: Vitals signs as noted above General Appearance:Obese, no apparent distress Head: normocephalic, Atraumatic Eyes: normal inspection, EOMI Neck: supple, Trachea midline Respiratory/Chest: Normal breath sounds, CTA, No accessory muscle use Cardiovascular: S1, S2, No murmur Abdomen/GI:Soft, Non tender, Bowel sounds present Extremities/Musculoskeletal:normal inspection, Trace pedal edema Neurologic/Psych:AAOX3, grossly no focal neurological deficits Skin: normal color, warm Results & Data Results & Data Vital Signs (Past 12 Hours) Vital Signs Temp Pulse Pulse Resp BP BP Pulse Ox 02/04/23 15:34 36.8 C 98 H 20 132/76 92 02/04/23 11:57 36.4 C L 99 H 19 121/73 93 02/04/23 07:52 84 02/04/23 07:45 02/04/23 07:54 36.7 C 86 20 131/71 90 O2 Del Method O2 Flow Rate 02/04/23 15:34 Nasal Cannula 1 02/04/23 11:57 Nasal Cannula 2 02/04/23 07:52 02/04/23 07:45 Nasal Cannula 1 02/04/23 07:54 Room Air
[2023-02-04] MEDS: DIGOXIN 0.25 MG TAB PO SCH (17:29)
[2023-02-04] MEDS: LIDOCAINE 5% 1 PATCH TD SCH (21:42)
[2023-02-04] MEDS: TAMSULOSIN HCL 0.4 MG CAP PO SCH (21:49)
[2023-02-05 07:06] LABS: BUN Creatinine Ratio 38.5 (10-20); Calcium 9.7 mg/dl (8.6-10.3); Creatinine Clr Calc Pharmacy 63.4 ml/min; Est GFR (Non-African American) 44.8 ml/min; Magnesium 1.3 mg/dl (1.7-2.4); Potassium 3.8 mmol/L (3.5-5.1)
[2023-02-05] MEDS: LANTUS PER UNIT CHARGE SQ SCH (08:31)
[2023-02-05] MEDS: INSULIN ASPART PER UNIT CHARGE SC SCH ×2 (08:31→11:59)
[2023-02-05] MEDS: FAMOTIDINE 20 MG TAB PO SCH (08:31)
[2023-02-05] MEDS: PHENAZOPYRIDINE HCL 100 MG TAB PO SCH (08:31)
[2023-02-05] MEDS: IPRATROPIUM BROMIDE NASAL SPRAY 0.06% 15ML NAE SCH (08:32)
[2023-02-05] MEDS: APIXABAN 5 MG TABLET PO SCH (08:32)
[2023-02-05] MEDS: guaiFENesin 600 MG TABCR PO SCH (08:32)
[2023-02-05] MEDS: metFORMIN HCL 500 MG TAB PO SCH (08:32)
[2023-02-05] MEDS: METOPROLOL SUCC 50MG EXT REL TAB PO SCH (08:32)
[2023-02-05] MEDS: MONTELUKAST SODIUM 10 MG TABLET PO SCH (08:32)
[2023-02-05] MEDS: ATORVASTATIN 40 MG TAB PO SCH (08:32)
[2023-02-05] MEDS: TORSEMIDE 10 MG TAB PO SCH (08:33)
[2023-02-05] MEDS: PANTOprazole 40 MG TAB PO SCH (08:33)
[2023-02-05] MEDS: POLYETHYLENE (MIRALAX) 17 GM PACK PO SCH (08:33)
[2023-02-05] MEDS ORDERED: MAGNESIUM OXIDE 400 MG TAB PO SCH ×2 (09:00→12:00)
[2023-02-05] MEDS ORDERED: MAGNESIUM SULFATE / D5W 1 GM/100 ML BAG IV ONE (09:45)
--- NOTE | 2023-02-05 12:56 | Hospitalist Progress Note ---
Date of Service February 05, 2023 Assessment & Plan (1) Ureteral calculus, right: (2) Acute heart failure with preserved ejection fraction (HFpEF): (3) Hydronephrosis with renal and ureteral calculous obstruction: (4) Morbid obesity: (5) Bipolar disorder: (6) Arthritis: (7) REENA (obstructive sleep apnea): (8) Paroxysmal atrial fibrillation: (9) Diabetes mellitus, type II: Plan 72 y/o F with PMH HTN, HLD, DM II, COPD, paroxysmal atrial fibrillation chronically anticoagulated on Eliquis, chronic diastolic heart failure, RBBB, CVA, kidney stones, bipolar disorder, REENA, morbid obesity presented to ER with multiple medical complaints.This is being managed for the following: Acute on chronic diastolic heart failure History of noncompliance, patient was dyspneic at presentation Atrial fibrillation Volume overload --CXR:Cardiomegaly with evidence of congestive failure and mild pulmonary edema. Emphysema. No airspace consolidation or large pleural effusion is identified. --ECHO: The study was technically difficult. Contrast was used to opacify the LV. EF 55 to 60%. Normal LV segmental wall motion abnormalities. Diastolic function is abnormal. Right ventricle is not well visualized. --Venous Doppler:Exam compromised by suboptimal penetration but no evidence of deep venous thrombus within the left lower extremity. --Chest CTA:No acute pulmonary embolism. --BNP 156. --Negative Troponin --Patient with history of yeast infections and recurrent UTI, likely a poor candidate therefore for treatment with an SGLT2 inhibitor. Was on lisinopril in April, stopped due to dizziness. --IV lasix 40mg BID transitioned to torsemide 20 mg daily Appreciate Cardiology recommendations Continue digoxin 250 mcg daily, metoprolol succinate 100 mg twice daily. Diltiazem was stopped on 01/29 due to leg edema continue Eliquis Volume status improved Needs follow-up with cardiology upon discharge Continue current management Plan to be discharged to rehab facility today As per prior provider: Partially treated complicated UTI Infected renal stone/obstructive uropathy Severe sepsis POA: Secondary to above. SIRS positive, lactic acid elevation at presentation. Hematuria: Secondary to obstructive uropathy Patient came in with complaint of urinary frequency, dysuria in the setting of recent multiple courses of outpatient treatment for UTI. Admitting CTAP with obstructing 6 x 5 mm stone in the right proximal ureter and nonobstructing 5 mm right mid pole renal stone. Patient was started on aztreonam and daptomycin. Blood cultures are negative and there are no UA or Ucx this admission to reflect a specific pathogen. Outpatient records reveal no recent infection or culture data. Status post cystoscopy and right ureteral stent placement by urology 01/24/2023. Was on Ciprofloxacin till 01/30/23 Post operatively she reports acute left hip pain that is TTP of lateral area over GTB. Left CT hip reveals no acute fracture or dislocation. pain med regimen, PT/OT Will need follow-up with urology on discharge. Currently on po doxycycline for left leg cellulitis Other chronic medical conditions: Continue with/resume home meds as and when able. hypertension, stable hyperlipidemia on statin Rx, held d/t pt being on dapto. can resume history CVA as per records COPD, not in acute exacerbation REENA on CPAP DM2 insulin requiring, suboptimal control as of recent hemoglobin A1c of 9.06 September 2022, a1c 8.5 this admission. ? compliance issues. 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 Continue with basal/bolus insulin. Monitor blood glucose levels mood disorder, very anxious regarding hip pain which was improved with Ativan (per previous provider). Cont PRN severe anxiety. past tobacco abuse Morbid obesity: BMI 53 DVT px Eliquis CODE STATUS Full code Disposition SNF Admission and Anticipated Discharge Date Admission Date: January 23, 2023 Subjective Patient is seen and examined at bedside States feeling tired but otherwise no new complaints Denies any chest pain, dyspnea, dizziness, nausea, vomiting, abdominal pain Plan to be discharged to rehab today Review of Systems Review of Systems: All systems reviewed & are unremarkable except as noted in Subjective Physical Exam Physical Exam: Physical Exam: Vitals signs as noted above General Appearance:Obese, no apparent distress Head: normocephalic, Atraumatic Eyes: normal inspection, EOMI Neck: supple, Trachea midline Respiratory/Chest: Normal breath sounds, CTA, No accessory muscle use Cardiovascular: S1, S2, No murmur Abdomen/GI:Soft, Non tender, Bowel sounds present Extremities/Musculoskeletal:normal inspection, Trace pedal edema Neurologic/Psych:AAOX3, grossly no focal neurological deficits Skin: normal color, warm Results & Data Results & Data Vital Signs (Past 12 Hours) Vital Signs Temp Pulse Pulse Resp BP BP Pulse Ox 02/05/23 12:10 36.5 C 94 H 16 145/79 H 132/76 92 02/05/23 11:11 36.5 C 94 H 16 145/79 H 92 02/05/23 08:00 92 H 02/05/23 08:00 02/05/23 07:38 36.6 C 90 18 114/80 93 02/05/23 03:00 36.6 C 89 21 96 O2 Del Method O2 Flow Rate 02/05/23 12:10 02/05/23 11:11 Nasal Cannula 1.0 02/05/23 08:00 02/05/23 08:00 Nasal Cannula 1 02/05/23 07:38 Nasal Cannula 1.0 02/05/23 03:00 Nasal Cannula Laboratory Results BMP 02/05/23 05:50 Sodium 135 L Potassium 3.8 Chloride 94 L Carbon Dioxide 28 BUN 47 H Creatinine 1.22 H Glucose 259 H Calcium 9.7
--- NOTE | 2023-02-05 13:07 | Discharge Summary ---
Date of Service February 05, 2023 Admission HPI Per Admitting Provider Patient is 72 y/o F with PMH HTN, HLD, DM II, COPD, paroxysmal atrial fibrillation chronically anticoagulated on Eliquis, chronic diastolic heart failure, RBBB, CVA, kidney stones, bipolar disorder, REENA, morbid obesity presented to ER with multiple medical complaints. History obtained from patient as well as chart review. Limited history obtained from patient secondary to patient's current dyspnea and lethargy. Spoke to daughter on phone who assists in history. Patient reports last week started with urinary symptoms with urinary frequency. Reports having urinary frequency, dysuria. Patient reports gave urin e sample Thursday at urology office. Reports she was called in Macrobid for UTI. (No urine studies from this week for review). Patient states started Macrobid today. Today started with left abdominal pain. Had Urine culture 01/05/2023 likely skin edmundo. Patients daughter states patient has had urinary frequency and dysuria for the past month and has been treated for UTI and finished 2 courses of Macrobid. States today started third course of Macrobid. Patient's daughter also states patient has been complaining of some nausea and "gassiness" for the past week that was thought secondary to Ozempic that patient restarted 1 to 2 weeks ago. Patient thinks has had a fever. Daughter is unsure if patient had fevers. Patient states yesterday was with her friend and her friend noted that patient seemed to be short of breath. Patient states she did not feel short of breath at the time. Patient does endorse cough however is unable to further clarify. When asked if this is a chronic cough she states "I have a heart condition". Patient states today she does feel short of breath. States past 2 days has been having increased weakness and lethargy. States chronic BLE edema and does not think it is worse. Denies nausea, vomiting, diarrhea, syncope, CP, palpitations, sore throat, rhinorrhea, rashes. Admission Exam Per Admitting Provider General: + distress, +ill appearing, obese elderly female Head: normocephalic, atraumatic Eyes: conjunctiva non-injected, anicteric ENT: normal inspection external ears, nose, mucous membranes dry Neck: supple, trachea midline Lungs: + Tachypnea, difficult to auscultate lungs secondary to body habitus and current lethargy however appears decreased without noted wheezing or rales CV: +tachycardia rate 116, regular Abd: protuberant, normal BS, soft, + diffuse tenderness to palpation without guarding Ext: BLE +edema bilaterally with erythematous skin changes bilateral lower legs with tenderness to palpation bilateral legs, no cyanosis Neuro: +drowsy and falling asleep while talking, oriented to person, place, month and year, no focal deficits noted Skin: +hot to palpation, dry Principal Diagnosis Sepsis- infected renal stone/obstructive uropathy Ureteral calculus, right: Acute heart failure with preserved ejection fraction (HFpEF): Hydronephrosis with renal and ureteral calculous obstruction: Morbid obesity: Paroxysmal atrial fibrillation: Diabetes mellitus, type II: Atrial fibrillation Discharge Data Allergies Allergy/AdvReac Type Severity Reaction Status Date / Time Cephalosporins Allergy Intermediate RASH Verified 01/23/23 21:42 Sulfa (Sulfonamide Allergy Intermediate "Sulfa Verified 01/23/23 21:42 Antibiotics) Drugs = rash" terconazole Allergy Intermediate ITCHING, Verified 01/23/23 21:42 BURNING clarithromycin Allergy Unknown UNKNOWN Verified 01/23/23 21:42 clavulanic acid Allergy Unknown UNKNOWN Verified 01/23/23 21:42 clobetasol Allergy Unknown Unknown Verified 01/23/23 21:42 adhesive AdvReac Mild BAND-AIDS Verified 01/23/23 21:42 = SKIN IRRITATION Consultations 01/23/23 20:26 ED Decision to Admit Stat 01/23/23 23:58 Consult Cardiology Routine Consult Urology Routine Procedures Performed Operation Date: 01/24/23 09:30 Actual Procedures p Cystoscopy, right Retrograde pyelogrom, right ureteral stent insertion(Right) - Edvin Ventura MD Ordered Studies 01/23/23 18:33 CT abd pelvis IV con only Stat CT angio chest PE protocol Stat 01/23/23 21:28 CT head/brain wo con Stat 01/24/23 09:00 FL retrograde includes kub Routine 01/24/23 13:47 US venous doppler LE LT Routine 01/25/23 15:16 CT hip LT wo con Urgent Laboratory Results WBC 8.83 K/ul (4.8-10.8) 02/02/23 05:31 RBC 4.04 M/uL (4.20-5.40) L 02/02/23 05:31 Hgb 11.1 g/dl (12.0-16.0) L 02/02/23 05:31 Hct 34.6 % (37.0-47.0) L 02/02/23 05:31 MCV 85.6 fL (80.0-100.0) 02/02/23 05:31 MCH 27.5 pg (25.0-34.0) 02/02/23 05:31 MCHC 32.1 g/dL (32.0-36.0) 02/02/23 05:31 RDW Std Deviation 52.1 fL (36.4-46.3) H 02/02/23 05:31 RDW Coeff of Juan [place] 16.7 % (11.5-14.5) H 02/02/23 05:31 Plt Count 233 K/uL (130-400) 02/02/23 05:31 MPV 10.5 fL (9.4-12.4) 02/02/23 05:31 Immature Gran % (Auto) 0.7 % 01/24/23 03:34 Neut % (Auto) 83.6 % 01/24/23 03:34 Lymph % (Auto) 9.3 % 01/24/23 03:34 [place] % (Auto) 6.1 % 01/24/23 03:34 Eos % (Auto) 0.0 % 01/24/23 03:34 Baso % (Auto) 0.3 % 01/24/23 03:34 Neut # (Auto) 15.31 K/uL (1.40-6.50) H 01/24/23 03:34 Lymph # (Auto) 1.71 K/uL (1.20-3.40) 01/24/23 03:34 [place] # (Auto) 1.12 K/uL (0.11-0.59) H 01/24/23 03:34 Eos # (Auto) 0.00 K/uL (0.00-0.50) 01/24/23 03:34 Baso # (Auto) 0.06 K/uL (0.00-0.20) 01/24/23 03:34 Immature Gran # (Auto) 0.12 K/uL (0.01-0.20) 01/24/23 03:34 Absolute Nucleated RBC 0.02 K/uL (0.00-0.12) 02/01/23 05:48 Nucleated RBC % (auto) 0.2 % 02/01/23 05:48 PT 10.8 Seconds (9.0-12.0) 01/23/23 17:14 INR 1.0 (0.9-1.1) 01/23/23 17:14 APTT 29.3 Seconds (21.0-31.0) 01/23/23 17:14 PTT Ratio 1.0 01/23/23 17:14 VBG pH 7.41 (7.36-7.41) 01/23/23 22:46 VBG pCO2 42 mmHg (38-50) 01/23/23 22:46 VBG pO2 39 mmHg 01/23/23 22:46 VBG HCO3 27 mmol/L 01/23/23 22:46 VBG O2 Saturation 63.5 % 01/23/23 22:46 VBG Base Excess 1.7 mEq/L 01/23/23 22:46 Sodium 135 mmol/L (136-145) L 02/05/23 05:50 Potassium 3.8 mmol/L (3.5-5.1) 02/05/23 05:50 Chloride 94 mmol/L (98-107) L 02/05/23 05:50 Carbon Dioxide 28 mmol/L (21-32) 02/05/23 05:50 Anion Gap 13 (3-11) H 02/05/23 05:50 BUN 47 mg/dl (6-23) H 02/05/23 05:50 Creatinine 1.22 mg/dl (0.6-1.2) H 02/05/23 05:50 Est Cr Clr Drug Dosing 63.4 ml/min 02/05/23 05:50 Est GFR ( Amer) 52.0 ml/min 02/05/23 05:50 Est GFR (Non-Af Amer) 44.8 ml/min 02/05/23 05:50 BUN/Creatinine Ratio 38.5 (10-20) H 02/05/23 05:50 Glucose 259 mg/dl (70-99(Fasting)) H 02/05/23 05:50 POC Glucose 286 mg/dl (70-99) H 02/05/23 11:29 Estimat Average Glucose 197 mg/dl 01/23/23 17:14 Hemoglobin A1c 8.5 % (4.5-5.6) H 01/23/23 17:14 Lactate 1.1 mmol/L (0.4-2.0) 01/25/23 05:35 Calcium 9.7 mg/dl (8.6-10.3) 02/05/23 05:50 Phosphorus 4.2 mg/dl (2.5-4.9) D 02/02/23 05:31 Magnesium 1.3 mg/dl (1.7-2.4) L 02/05/23 05:50 Total Bilirubin 0.7 mg/dl (0.2-1.0) 01/23/23 17:14 Direct Bilirubin 0.2 mg/dl (0-0.2) 01/23/23 17:14 AST 26 U/L (13-39) 01/23/23 17:14 ALT 29 U/L (7-52) 01/23/23 17:14 Alkaline Phosphatase 118 U/L (34-104) H 01/23/23 17:14 Ammonia 40.0 umol/L (18-72) 01/23/23 22:46 Troponin I High Sens 8.6 pg/ml (0-14) 01/23/23 17:14 B-Natriuretic Peptide 156 pg/ml (0-100) H 01/23/23 17:52 Total Protein 7.8 gm/dl (6.0-8.3) 01/23/23 17:14 Albumin 4.3 gm/dl (3.4-5.0) 01/23/23 17:14 Procalcitonin 0.12 ng/ml (0-0.5) 01/23/23 17:14 TSH 1.116 uIu/ml (0.300-4.500) 01/23/23 22:46 Urine Color Yellow 01/23/23 17:10 Urine Appearance Clear (Clear) 01/23/23 17:10 Urine pH 5.0 (4.5-7.5) 01/23/23 17:10 Ur Specific [place] 1.009 (1.000-1.030) 01/23/23 17:10 Urine Protein Negative (Negative) 01/23/23 17:10 Urine Glucose (UA) Negative (Negative) 01/23/23 17:10 Urine Ketones Negative (Negative) 01/23/23 17:10 Urine Blood 3+ (Negative) H 01/23/23 17:10 Urine Nitrite Negative (Negative) 01/23/23 17:10 Urine Bilirubin Negative (Negative) 01/23/23 17:10 Urine Urobilinogen Negative (Negative) 01/23/23 17:10 Ur Leukocyte Esterase Negative (Negative) 01/23/23 17:10 Urine WBC (Auto) 0 /hpf (0-5) 01/23/23 17:10 Urine RBC (Auto) 0-4 /hpf (0-4) 01/23/23 17:10 U Hyaline Cast (Auto) 0 /lpf (0-5) 01/23/23 17:10 U Epithel Cells (Auto) 0-5 /lpf (0-5) 01/23/23 17:10 Urine Bacteria (Auto) Negative (Negative) 01/23/23 17:10 Nasal Screen MRSA (PCR) Negative (Negative) 02/01/23 08:12 Adenovirus (PCR) Not Detected (NotDetected) 01/23/23 17:18 B. pertussis DNA (PCR) Not Detected (NotDetected) 01/23/23 17:18 B.parapertussis DNA PCR Not Detected (NotDetected) 01/23/23 17:18 C. pneumoniae DNA (PCR) Not Detected (NotDetected) 01/23/23 17:18 Coronavirus OC43 (PCR) Not Detected (NotDetected) 01/23/23 17:18 Coronavirus HKU1 (PCR) Not Detected (NotDetected) 01/23/23 17:18 Coronavirus 229E (PCR) Not Detected (NotDetected) 01/23/23 17:18 SARS-CoV-2 (PCR) NEGATIVE (Negative) 02/03/23 Unknown Coronavirus NL63 (PCR) Not Detected (NotDetected) 01/23/23 17:18 Human Metapneumovir PCR Not Detected (NotDetected) 01/23/23 17:18 Influenza Type A (PCR) Not Detected (NotDetected) 01/23/23 17:18 Influenza Type B (PCR) Not Detected (NotDetected) 01/23/23 17:18 M. pneumoniae (PCR) Not Detected (NotDetected) 01/23/23 17:18 Parainfluenza 1 (PCR) Not Detected (NotDetected) 01/23/23 17:18 Parainfluenza 2 (PCR) Not Detected (NotDetected) 01/23/23 17:18 Parainfluenza 3 (PCR) Not Detected (NotDetected) 01/23/23 17:18 Parainfluenza 4 (PCR) Not Detected (NotDetected) 01/23/23 17:18 RSV (PCR) Not Detected (NotDetected) 01/23/23 17:18 Entero/Rhino (PCR) Not Detected (NotDetected) 01/23/23 17:18 Blood Type O Positive 01/23/23 22:46 Antibody Screen NEGATIVE 01/23/23 22:46 Impressions Chest X-Ray 01/23/23 16:55 SINGLE VIEW CHEST CLINICAL HISTORY: Sepsis. FINDINGS: An AP, portable, upright chest radiograph is compared to study dated 04/04/2022. Correlation is made with chest CT dated 02/14/2021. The heart is enlarged noting atherosclerotic calcification of the thoracic area aorta. There is pulmonary vascular congestion an mild interstitial edema. Emphysema and chronic interstitial thickening is similar to previous. Scarring/atelectasis is seen at the lung bases. No airspace consolidation or large pleural effusion is identified. No pneumothorax is seen. The skeletal structures are osteopenic. The bony thorax is grossly intact. IMPRESSION: 1. Cardiomegaly with evidence of congestive failure and mild pulmonary edema. 2. Emphysema. 3. No airspace consolidation or large pleural effusion is identified. ACT 112: Negative or not required by law. Electronically signed by: Semaj Gonzalez M.D. 01/23/2023 5:31 PM Abdomen/Pelvis CT 01/23/23 18:33 Exam(s): CT ABDOMEN + PELVIS With Contrast IV Amt: 114 ml opti 320 EXAM: CT Abdomen and Pelvis With Intravenous Contrast CLINICAL HISTORY: Reason for exam: fever and pain. TECHNIQUE: Axial computed tomography images of the abdomen and pelvis with intravenous contrast. CTDI is 28.14 mGy and DLP is 1499.82 mGy-cm. Automated exposure control was utilized for the study. A dose lowering technique was utilized adhering to the principles of ALARA. CONTRAST: Patient received 114 ml opti 320 of IV contrast COMPARISON: No relevant prior studies available. FINDINGS: Lung bases: Unremarkable. No mass. No consolidation. ABDOMEN: Liver: Hepatic steatosis. Gallbladder and bile ducts: Unremarkable. No calcified stones. No ductal dilation. Pancreas: Unremarkable. No mass. No ductal dilation. Spleen: Unremarkable. No splenomegaly. Adrenals: Unremarkable. No mass. Kidneys and ureters: Obstructing 6 x 5 mm stone in the RIGHT proximal ureter. Mild fullness of the RIGHT renal collecting system. Nonobstructing 5 mm RIGHT mid pole renal stone. Stomach and bowel: Diverticulosis, without acute diverticulitis. No small bowel obstruction. No free intraperitoneal air. PELVIS: Appendix: No findings to suggest acute appendicitis. Bladder: Decompressed urinary bladder which contains a Miller catheter. Reproductive: Unremarkable as visualized. ABDOMEN and PELVIS: Intraperitoneal space: Unremarkable. No free air. No significant fluid collection. Bones/joints: Degenerative changes of the spine. No acute fracture. No dislocation. Soft tissues: Small fat-containing umbilical hernia. Vasculature: Atherosclerotic changes of the aorta. No abdominal aortic aneurysm. Lymph nodes: Unremarkable. No enlarged lymph nodes. IMPRESSION: 1. Obstructing 6 x 5 mm stone in the RIGHT proximal ureter. Mild fullness of the RIGHT renal collecting system. Nonobstructing 5 mm RIGHT mid pole renal stone. 2. Diverticulosis, without acute diverticulitis. No small bowel obstruction. No free intraperitoneal air. Electronically signed by: Kyler Chaney MD 01/23/23 20:04 PM Chest CTA 01/23/23 18:33 Exam(s): CTA CHEST IV Amt: 114 ml opti 320 EXAM: CT Angiography Chest With Intravenous Contrast CLINICAL HISTORY: Reason for exam: PE. TECHNIQUE: Axial computed tomographic angiography images of the chest with intravenous contrast. CTDI is 28.14 mGy and DLP is 894.74 mGy-cm. Automated exposure control was utilized for the study. A dose lowering technique was utilized adhering to the principles of ALARA. MIP reconstructed images were created and reviewed. COMPARISON: No relevant prior studies available. FINDINGS: Pulmonary arteries: Unremarkable. No acute pulmonary embolism. Aorta: No acute findings. No thoracic aortic aneurysm. Lungs: Atelectasis at the lung bases. No mass. Pleural space: Unremarkable. No significant effusion. No pneumothorax. Heart: Cardiomegaly. No significant pericardial effusion. No evidence of RV dysfunction. Bones/joints: No acute fracture. No dislocation. Soft tissues: Unremarkable. Lymph nodes: Unremarkable. No enlarged lymph nodes. Liver: Hepatic steatosis. IMPRESSION: No acute pulmonary embolism. Electronically signed by: Kyler Chaney MD 01/23/23 19:[address] 01/23/23 21:28 Exam(s): CT HEAD Without Contrast EXAM: CT Head Without Intravenous Contrast CLINICAL HISTORY: Reason for exam: mcclendon, ams, eliquis,. TECHNIQUE: Axial computed tomography images of the head/brain without intravenous contrast. CTDI is 36.31 mGy and DLP is 625.8 mGy-cm. Automated exposure control was utilized for the study. A dose lowering technique was utilized adhering to the principles of ALARA. COMPARISON: No relevant prior studies available. FINDINGS: No acute intracranial hemorrhage. No midline shift or mass effect. The territorial khan-white matter differentiation is maintained throughout. Age-related cerebral volume loss. Periventricular and subcortical white matter hypoattenuation, consistent with chronic microangiopathy. The visualized orbits appear grossly unremarkable. The calvarium is intact. The visualized paranasal sinuses and mastoid air cells are grossly clear. IMPRESSION: No acute intracranial hemorrhage, midline shift, or mass effect. Electronically signed by: Kyler Chaney MD 01/23/23 22:19 PM Retrograde Pyelogram 01/24/23 09:00 FL retrograde includes kub CLINICAL HISTORY: RT SIDE RETROGRADE COMPARISON STUDY: CT of the abdomen and pelvis January 23, 2023. FLUOROSCOPY TIME: 8 seconds. Ka, r: 7.93 mGy FLUOROSCOPIC IMAGES: 1 FINDINGS: Fluoroscopy was provided during right retrograde exam with right ureteral stent placement. Proximal aspect of the stent projects over the right renal pelvis. IMPRESSION: Fluoroscopy provided during right retrograde exam with right ureteral stent placement. ACT 112: Negative or not required by law. Electronically signed by: Hola Méndez M.D. 01/24/2023 11:03 AM Venous Doppler Study 01/24/23 13:47 LEFT LOWER EXTREMITY VENOUS DOPPLER CLINICAL HISTORY: Lower extremity swelling. Evaluate for deep venous thrombus. COMPARISON STUDY: No previous studies for comparison. TECHNIQUE: Sonography of the deep venous system of the left lower extremity was performed. Compression and augmentation were evaluated. FINDINGS: The left common femoral, superficial femoral and popliteal veins were compressible. Augmentation was normal. Calf vessels were suboptimally assessed but no deep venous thrombus was identified. IMPRESSION: Exam compromised by suboptimal penetration but no evidence of deep venous thrombus within the left lower extremity. ACT 112: Negative or not required by law. Electronically signed by: Hola Méndez M.D. 01/24/2023 3:[address] 01/25/23 15:16 CT hip LT wo con CLINICAL HISTORY: severe L hip pain, post op TECHNIQUE: Multidetector row helical CT of the left hip was performed without intravenous contrast. Coronal and sagittal reformations were obtained. Automated dose lowering techniques and/or adjustment according to patient size were utilized for this examination. CT DOSE: 1001.12 mGy.cm Comparison: Comparison is made to CT abdomen and pelvis 01/23/2023 FINDINGS: The osseous structures are without fracture or dislocation. Seen. No joint effusion is seen. Diverticulosis is seen without colitis. Catheter is noted in the bladder with a right nephroureteral stent. IMPRESSION: No evidence of acute fracture or dislocation. ACT 112: Negative or not required by law. Electronically signed by: Sina Mars M.D. 01/25/2023 4:33 PM Hospital Course (1) Ureteral calculus, right: (2) Acute heart failure with preserved ejection fraction (HFpEF): (3) Hydronephrosis with renal and ureteral calculous obstruction: (4) Morbid obesity: (5) Bipolar disorder: (6) Arthritis: (7) REENA (obstructive sleep apnea): (8) Paroxysmal atrial fibrillation: (9) Diabetes mellitus, type II: Plan 72 y/o F with PMH HTN, HLD, DM II, COPD, paroxysmal atrial fibrillation chronically anticoagulated on Eliquis, chronic diastolic heart failure, RBBB, CVA, kidney stones, bipolar disorder, REEAN, morbid obesity presented to ER with multiple medical complaints.This is being managed for the following: Acute on chronic diastolic heart failure History of noncompliance, patient was dyspneic at presentation Atrial fibrillation Volume overload --CXR:Cardiomegaly with evidence of congestive failure and mild pulmonary edema. Emphysema. No airspace consolidation or large pleural effusion is identified. --ECHO: The study was technically difficult. Contrast was used to opacify the LV. EF 55 to 60%. Normal LV segmental wall motion abnormalities. Diastolic function is abnormal. Right ventricle is not well visualized. --Venous Doppler:Exam compromised by suboptimal penetration but no evidence of deep venous thrombus within the left lower extremity. --Chest CTA:No acute pulmonary embolism. --BNP 156. --Negative Troponin --Patient with history of yeast infections and recurrent UTI, likely a poor candidate therefore for treatment with an SGLT2 inhibitor. Was on lisinopril in April, stopped due to dizziness. --IV lasix 40mg BID transitioned to torsemide 20 mg daily Appreciate Cardiology recommendations Continue digoxin 250 mcg daily, metoprolol succinate 100 mg twice daily. Diltiazem was stopped on 01/29 due to leg edema continue Eliquis Volume status improved Needs follow-up with cardiology upon discharge Continue current management Plan to be discharged to rehab facility today As per prior provider: Partially treated complicated UTI Infected renal stone/obstructive uropathy Severe sepsis POA: Secondary to above. SIRS positive, lactic acid elevation at presentation. Hematuria: Secondary to obstructive uropathy Patient came in with complaint of urinary frequency, dysuria in the setting of recent multiple courses of outpatient treatment for UTI. Admitting CTAP with obstructing 6 x 5 mm stone in the right proximal ureter and nonobstructing 5 mm right mid pole renal stone. Patient was started on aztreonam and daptomycin. Blood cultures are negative and there are no UA or Ucx this admission to reflect a specific pathogen. Outpatient records reveal no recent infection or culture data. Status post cystoscopy and right ureteral stent placement by urology 01/24/2023. Was on Ciprofloxacin till 01/30/23 Post operatively she reports acute left hip pain that is TTP of lateral area over GTB. Left CT hip reveals no acute fracture or dislocation. pain med regimen, PT/OT Will need follow-up with urology on discharge. Currently on po doxycycline for left leg cellulitis Other chronic medical conditions: Continue with/resume home meds as and when able. hypertension, stable hyperlipidemia on statin Rx, held d/t pt being on dapto. can resume history CVA as per records COPD, not in acute exacerbation REENA on CPAP DM2 insulin requiring, suboptimal control as of recent hemoglobin A1c of 9.06 September 2022, a1c 8.5 this admission. ? compliance issues. religious educator consulted. Continue with basal/bolus insulin. Monitor blood glucose levels mood disorder, very anxious regarding hip pain which was improved with Ativan (per previous provider). Cont PRN severe anxiety. past tobacco abuse Morbid obesity: BMI 53 DVT px Eliquis CODE STATUS Full code Disposition SNF Total Time Total Time Spent Total Time Spent (In Minutes): 55 minutes Discharge Plan Discharge Items Patient Disposition: Transfer Intermediate Fac Reason For Visit: CHF, SEPSIS Discharge Diagnosis: Sepsis- infected renal stone/obstructive uropathy Ureteral calculus, right: Acute heart failure with preserved ejection fraction (HFpEF): Hydronephrosis with renal and ureteral calculous obstruction: Morbid obesity: Paroxysmal atrial fibrillation: Diabetes mellitus, type II: Atrial fibrillation Activity: Per Instructions section Exercise/Sports: Gradually increase as tolerated Non-emergency contact: Primary Care Provider, Story Editor and Urologist Call non-emergency contact if: you have any medication questions, your symptoms worsen, your pain is concerning for you and you have a fever Follow-up/Referrals: Edvin Ventura MD [Physician] - (The Urology office will contact you for an appointment.) Sabine Mosley DO [Primary Care Provider] - Diet: Carb Consistent or DM2 and Heart Healthy Addtl Attending Provider Instructions: Follow-up with your primary care physician Dr. Sabine Mosley in 1 week upon discharge from rehab facility Follow-up with your urologist Dr. Edvin Ventura as advised Follow-up with your bingo cashier Dr. Aries Mosley in 2 weeks upon discharge from rehab facility Seek immediate medical attention if your symptoms reoccur or worsen Please take all medications as instructed on discharge list below. Please call if you have any questions or problems. You can reach a [facility] hospitalist on duty at [facility] 24 hours a day by calling [phone] Call your Primary Care doctor if any of the following symptoms or problems start or get worse: * Shortness of breath or difficulty breathing * Wake up at night short of breath * Chest pain * Cough * Swelling of your hands, feet, or legs * More fatigued or tired with your normal activity * Palpitations - sudden fast heart beats WEIGHT * Weigh yourself every morning after using the bathroom. * Use the same scale. * Wear the same amount of clothing. * Write your weight down on a chart. * Call your Primary Care doctor if you gain more than 2-3 pounds in 1-2 days. MEDICATIONS * Use this discharge instruction sheet for medication instructions. * Take your medications at the time your doctor ordered. * Do not skip a dose of your medicines. * If you miss a dose of medicine, take it as soon as possible, but DO NOT DOUBLE A DOSE. * Read your medicine information when you get home. * Know all of the side effects of your medicine. If in doubt, ask your pharmacist * Call your Primary Care doctor's office if you have any side effects. * Be sure all of your doctors know what medicine and herbs you take (including cold, flu, and herbal medicine). Take the following with you to your follow-up doctor appointments: * Weight Chart * Medication List * List of questions Do not drink excessive alcohol, beer or wine. Pending Studies at Discharge: No Stand-Alone Forms: My [facility] Skilled Items Patient informed of condition?: Yes DNR: No Discharge Level of Care: Skilled Communicable Disease: No Discharge Prognosis: Stable Lines: None Urinary Catheter: No Medications and DC Order Prescriptions: New digoxin 250 mcg (0.25 mg) Tablet 0.25 mg PO DAILY@1600 Qty: 30 0RF metoprolol succinate 100 mg tablet extended release 24 hr 100 mg PO BID Qty: 60 0RF polyethylene glycol 3350 [Miralax] 17 gram Powder In Packet 17 g PO DAILY PRN (Reason: constipation) Qty: 30 0RF torsemide 10 mg Tablet 20 mg PO QAM Qty: 30 0RF magnesium oxide 400 mg (241.3 mg magnesium) Tablet 400 mg PO DAILY@1200 Qty: 30 0RF phenazopyridine [Pyridium] 100 mg Tablet 100 mg PO TID PRN (Reason: dysuria) Qty: 30 0RF docusate sodium [Colace] 100 mg capsule 100 mg PO BID PRN (Reason: constipation) Qty: 60 0RF Continued levalbuterol HCl 0.63 mg/3 mL Solution For Nebulization 0.63 mg INHALATION Q4 PRN (Reason: Wheezing) hydrocodone-acetaminophen 5-325 mg tablet 1 tab PO Q6 PRN (Reason: Pain) hydrocortisone acetate 25 mg suppository [address] BID PRN (Reason: Hemorrhoids) famotidine 20 mg tablet 20 mg PO DAILY tamsulosin 0.4 mg capsule 0.4 mg PO HS baclofen 10 mg Tablet 10 mg PO BID PRN (Reason: Muscle Pain) pantoprazole 40 mg tablet,delayed release (DR/EC) 40 mg PO DAILY metformin 1,000 mg tablet 1,000 mg PO BID triamcinolone acetonide 0.1 % Ointment 1 applic TOPICAL BID PRN (Reason: .flare ups) nystatin-triamcinolone 100,000-0.1 unit/g-% cream 1 applic TOPICAL BID PRN (Reason: .flare ups) montelukast 10 mg Tablet 10 mg PO DAILY nystatin 100,000 unit/gram powder 1 applic TOPICAL BID Rx Instructions: Apply 0.5 g to groin ipratropium bromide 21 mcg (0.03 %) spray,non-aerosol 2 spray INTRANASAL [facility] insulin aspart U-100 [Novolog FlexPen U-100 Insulin] 100 unit/mL (3 mL) insulin pen 20 - 25 unit SUBCUT BIDM insulin glargine [Basaglar KwikPen U-100 Insulin] 100 unit/mL (3 mL) insulin pen 65 unit SUBCUT BID Eliquis 5 mg Tablet 5 mg PO BID Ozempic 2 mg/dose (8 mg/3 mL) pen injector 2 mg SUBCUT WK Rx Instructions: wed atorvastatin 40 mg tablet 40 mg PO DAILY albuterol sulfate 90 mcg/actuation HFA aerosol inhaler 2 inh INHALATION Q4H PRN (Reason: Shortness Of Breath Or Wheezing) Discontinued diltiazem HCl 180 mg capsule,extended release 24hr 180 mg PO DAILY metoprolol tartrate 50 mg tablet 75 mg PO BID Rx Instructions: Filled 01/15/23 fluconazole 150 mg tablet 150 mg PO ONCE nitrofurantoin monohyd/m-cryst 100 mg capsule 100 mg PO BID Discharge Orders: Discharge Order- CHF (Routine); Ordered 02/05/23 Ordered By: Kj Cullen/Other Patient Handouts: Managing Type 2 Diabetes Admission Data Admit Date/Time: 01/23/23 22:24 Attending Provider: Kj Martinez Admit Provider: Richard Gallardo Primary Care Provider: Sabine Mosley Other Providers: Richard Gallardo; Gwen Rowe; Dimitris Wells; Jose Villanueva; Aries Mosley; Cesar Carlton; Anup Benites; Shahrzad Eric; Katelin Lanier; Gwen Jesus; Ham Bauman; Darius Newton; Elisha Smith; Danica Grider; Abiodun Morales; Todd Benitez; Edvin Ventura; Med[facility] Olsen [facility] [place]; [place]; Danielle Roy; Drew Braga; Ama Coffman I. Other Interventions: Discharge Summary Assessment (RN) Last Done: 02/05/23 12:10
== END 2023-02-05 14:20 | DRG 853 ==
LOC: ED 16:28 → 2E 22:24 → SUATTDRO 22:24 → 2E 23:58

== ENCOUNTER 2023-03-07 08:19 | Inpatient (IN) ==
--- OUTSIDE RECORDS SUMMARY | 2023-03-07 08:25 | External Medical Summary | Summary of Care ---
Author Name Unknown Organization [facility] Address [address] [place] [address] Phone [phone] Care Team Providers Care Packaging Coordinator Name Role Phone Sabine Mosley DO Primary Care Provider Encounter Details Date Type Department Care Team (Late st Contact Info) Description 03/06/2023 Telephone [facility] [address] [place] [address] Sabine Mosley [address] [place] [address] Allergies Active Allergy Reactions Criticality Noted Date Comments Adhesive Tape 11/04/2017 sensitivity Cephalosporins Unknown 09/08/2000 Clarithromycin Rash 09/08/2000 Clavulanic Acid Unknown 02/17/2022 Clobetasol Unknown 02/17/2022 Sulfa Antibiotics High 09/08/2000 Unknown Other Reaction(s): "Sulfa Drugs = rash" Terconazole 09/09/2002 terazol - made her itchy documented as of this encounter (statuses as of 03/06/2023) Medications Medication Sig Dispensed Refills Start Date End Date Status INSULIN SYRINGES (DISP) 1ML U-100 MISCIndications:DM type 2, goal A1c below 7 as directed BID 100 6 04/17/2005 Active OMEGA 3-6-9 FATTY ACIDS PO CAPS 1 daily 0 Active ONE-A-DAY WOMENS PO TABS 1 daily 0 Active CRANBERRY JUICE EXTRACT 1000 MG PO CAPS 1 daily 0 Active MUCINEX 600 MG PO TB12 1 DAILY if needed 0 Active B COMPLEX-FOLIC ACID PO CAPS 1 daily 0 Active CINNAMON 500 MG PO CAPS 2 tab twice a day 0 Active EQ ARTHRITIS PAIN 650 MG PO TBCR 1-2 tabs daily 0 Active Magnesium 400 MG Capsule Take 1 Capsule by mouth in the morning. 60 Cap 17 07/11/2014 Active clobetasol propionate (TEMOVATE) 0.05 % cream As needed 0 07/05/2014 Active Insulin Syringe 31G X /16" 0.5 ML MISCIndications:DM type 2, not at goal (HCC) Use with insulin to inject 6 times per day as directed DX 250.00 6 Box 2 08/03/2014 Active levalbuterol (XOPENEX HFA) 45 MCG/ACT inhaler 0 07/16/2016 Active Bisacodyl 5 MG Oral Tablet Delayed Release Take 1 Tablet by mouth daily as needed for Constipation. 0 Active Cholecalciferol (VITAMIN D-3) 5000 units Tablet Take 1 Tablet by mouth in the morning. 0 Active ONETOUCH ULTRASOFT LANCETS MISC Use as directed 4 times a day as needed (fluctuations in blood glucose). Use up to four times a day as directed 3 Box Dosing Unit 3 02/12/2018 Active Glucose Blood (ONETOUCH VERIO) STRP Use up to 4 times a day E11.9 300 Strip 3 02/12/2018 Active Loratadine 10 MG Cap Take 1 Capsule by mouth in the morning. 0 Active Glucosamine-Chondro itin-MSM-D3 TABS Take 1 Tab by mouth daily. 0 Active Lactobacillus (PROBIOTIC ACIDOPHILUS) TABS Take by mouth. 0 Act luther Biotin 1 MG Oral Capsule Take 1 Capsule by mouth in the morning. 0 Active Co Q 10 10 MG Oral Capsule Take 1 Capsule by mouth daily. 0 Active Mupirocin 2 % External Ointment (Bactroban) Apply to the affected area three times daily for 3 weeks 22 g 1 06/26/2021 Active Triamcinolone Acetonide 55 MCG/ACT Nasal Aerosol Administer into nostril 2 Sprays in the morning. 16.9 mL 0 06/27/2021 Active Premarin 0.625 MG/GM Vaginal Cream (Estrogens, Conjugated)Indicati ons:Postmenopausal atrophic vaginitis ADMINISTER INTO THE VAGINA AT BEDTIME. DIRECTED. 90 g 2 11/15/2021 Active CPAP every night at bedtime. 0 Active Nebulizer/Tubing/Mo uthpiece Kit Please provide mask 1 Kit 0 02/10/2022 Active Metoprolol Tartrate 50 MG Oral Tablet (Lopressor)Indicati ons:Dilated aortic root (HCC) TAKE 1 AND 1/2 TABLETS BY MOUTH 2 TIMES A DAY. 270 Tablet 3 04/21/2022 Active Saccharomyces boulardii 250 MG Oral Capsule (Florastor) Take 1 Capsule by mouth in the morning and 1 Capsule before bedtime. 20 Capsule 0 05/06/2022 Active Levalbuterol HCl 0.63 MG/3ML Inhalation Nebulization Solution (Xopenex) Inhale 3 mL via nebulizer every 4 hours as needed for Wheezing. 1080 mL 5 05/15/2022 Active Albuterol Sulfate HFA 108 (90 Base) MCG/ACT Inhalation Aerosol SolutionIndications :COPD, group B, by GOLD 2017 classification ([facility]) Inhale 2 Puffs by mouth every 6 hours as needed for Cough, Shortness of Breath or Wheezing. 18 g 2 07/15/2022 Active Ozempic (2 MG/DOSE) 8 MG/3ML Subcutaneous Solution Pen-injector (Semaglutide (2 MG/DOSE)) Inject under the skin. 0 Active Fluconazole 150 MG Oral Tablet (Diflucan)Indicatio ns:Yeast infection TAKE 1 TABLET BY MOUTH EVERY DAY ONE DOSE 1 Tablet 1 08/04/2022 Active BD Pen Needle Isamar 2nd Gen 32G X 4 MMIndications:Type 2 diabetes mellitus with hemoglobin A1c goal of less than 7.0% ([facility]) Use to inject insulin four times daily E11.9 200 Each 3 08/18/2022 Active Nystatin-Triamcinol one 671420-7.1 UNIT/GM-% External Cream (Mycolog)Indication s:Melissa rash of groin APPLY TOPICALLY TO THE AFFECTED AREA TWICE DAILY FOR 14 DAYS. 30 g 1 08/27/2022 Active Nystatin 152065 UNIT/GM External Powder (Nystop)Indications :Melissa rash of groin APPLY 0.5 GRAM TO THE GROIN TWICE DAILY IN THE MORNING AND THE EVENING. 60 g 5 08/27/2022 Active Pantoprazole Sodium 40 MG Oral Tablet Delayed Release (Protonix)Indicatio ns:Gastroesophageal reflux disease without esophagitis TAKE 1 TABLET BY MOUTH EVERY DAY 90 Tablet 3 09/01/2022 Active Montelukast Sodium 10 MG Oral Tablet (Singulair)Indicati ons:Chronic rhinitis TAKE 1 TABLET BY MOUTH EVERY DAY 90 Tablet 1 09/19/2022 Active Triamcinolone Acetonide 0.1 % External Ointment (Aristocort)Indicat ions:Hand dermatitis Apply topically to affected area 2 times a day. To affected area. 15 g 5 09/22/2022 Active Hydrocortisone Acetate 25 MG Rectal Suppository (Anusol-HC) Administer 1 Suppository into the rectum in the morning and 1 Suppository before bedtime. As directed.. 12 Suppository 0 09/26/2022 Active Famotidine 20 MG Oral Tablet (Pepcid) TAKE 1 TABLET BY MOUTH EVERY DAY 90 Tablet 1 10/01/2022 Active NovoLOG FlexPen 100 UNIT/ML Subcutaneous Solution Pen-injector (insulin aspart) Inject 20-25 Units under the skin in the morning and 20-25 Units in the evening. With meals. 30 mL 5 10/08/2022 Active metFORMIN HCl 1000 MG Oral Tablet (Glucophage)Indicat ions:Type 2 diabetes mellitus with hemoglobin A1c goal of less than 7.0% ([facility]) TAKE 1 TABLET BY MOUTH TWICE A DAY 180 Tablet 1 10/23/2022 Active Baclofen 10 MG Oral Tablet (Lioresal)Indicatio ns:Spasm of lumbar paraspinous muscle,Chronic left-sided low back pain with left-sided sciatica TAKE 1 TABLET BY MOUTH IN THE MORNING AND BEFORE BEDTIME 20 Tablet 0 10/27/2022 Active Ipratropium Boyd 0.03 % Nasal Solution (Atrovent) Administer 2 Sprays into nostril in the morning and 2 Sprays before bedtime. 90 mL 4 11/11/2022 Active Tamsulosin HCl 0.4 MG Oral Capsule (Flomax) TAKE 1 CAPSULE BY MOUTH EVERYDAY AT BEDTIME 0 11/07/2022 Active HYDROcodone-Acetami nophen 5-325 MG Oral TabletIndications:N ephrolithiasis Take 1 Tablet by mouth every 6 hours as needed for Pain, Severe. 30 Tablet 0 11/11/2022 Active OneTouch Verio In Vitro Strip (Glucose Blood) Use up to 4 times a day E11.9 100 Strip 11 11/17/2022 Active OneTouch Verio w/Device Kit Use up to 3 times a day E11.9 1 Kit 0 11/20/2022 Active Insulin Glargine Solostar 100 UNIT/ML Subcutaneous Solution Pen-injector (Basaglar KwikPen)Indications :Type 2 diabetes mellitus with hemoglobin A1c goal of less than 7.0% ([facility]) INJECT 65 UNITS TWICE DAILY DIRECTED. 60 mL 1 01/13/2023 Active Eliquis 5 MG Oral Tablet (Apixaban)Indicatio ns:PAF (paroxysmal atrial fibrillation) ([facility]),Cerebrovascul ar disease, arteriosclerotic, post-stroke TAKE 1 TABLET BY MOUTH TWICE A DAY 180 Tablet 3 01/23/2023 Active Atorvastatin Calcium 40 MG Oral Tablet (Lipitor)Indication s:Dyslipidemia, goal LDL below 70 TAKE 1 TABLET BY MOUTH EVERY DAY 90 Tablet 1 02/16/2023 Active Nitrofurantoin Macrocrystal 100 MG Oral Capsule (Macrodantin) 0 02/15/2023 Active Torsemide 10 MG Oral Tablet (Demadex) 2 Tablets. 0 02/05/2023 Active Phenazopyridine HCl 100 MG Oral Tablet (Pyridium) 0 02/15/2023 Active Ondansetron HCl 4 MG Oral Tablet (Zofran)Indications :Nausea Take 1 Tablet by mouth every 8 hours as needed for Nausea. 30 Tablet 0 02/17/2023 Active Trelegy Ellipta 100-62.5-25 MCG/ACT Aerosol Powder Breath ActivatedIndication s:COPD, group B, by GOLD 2017 classification ([facility]) Inhale 1 Puff by mouth in the morning. 60 Blister Dosing Unit 5 03/03/2023 Active documented as of this encounter (statuses as of 03/06/2023) Active Problems Problem Noted Date Diagnosed Date History of cerebrovascular accident 02/17/2023 Former smoker 02/17/2023 Morbid obesity 02/05/2023 Major depressive disorder, single episode, unspe cified 02/05/2023 Chronic heart failure with preserved ejection fr action 07/21/2022 Chronic diastolic heart failure 01/31/2021 Hypertension 01/31/2021 Longstanding persistent atrial fibrillation 02/04 Gastroesophageal reflux disease without esophagi tis 12/09/2019 COPD, group B, by GOLD 2017 classification 10/16 Overview: Per COPD GOLD Classification Bipolar 2 disorder 07/01/2018 Type 2 diabetes mellitus 07/01/2018 Type 2 diabetes mellitus wit h hemoglobin A1c goal of less than 8.0% 12/19/2013 Overview: ICD-10 update of inactive term Dyslipidemia 04/08/2012 REENA on CPAP 03/02/2012 Overview: CPAP 12 cwp 05/26/12 Nocturnal ox CPAP 6 cwp / RA -- low 82%, mean 94%, <89% 9 mins, DORIS 3.5 04/15/12 -- new CPAP at 6 cwp Dx 1994 AHP Cerebrovascular disease, arteriosclerotic, post- stroke 07/18/2008 Overview: Modified per CVA protocol #8 documented as of this encounter (statuses as of 03/06/2023) Resolved Problems Problem Noted Date Diagnosed Date Resolved Date Dilated aortic root 03/04/2021 02/18/20 23 Dyslipidemia 01/31/2021 05/06/2022 Body mass index (BMI) of 50. 0 to 59.9 in adult 02/13/2020 05/06/2022 Overview: Per Obesity protocol Atrial flutter 01/14/2019 12/10/2019 Current use of insulin 06/09/201805/06 Mixed rhinitis 05/20/2018 02/16/2019 Restrictive pattern present on pulmonary function testing 02/02/2018 04/08/2018 Recurrent sinus infections 02/02/2018 0 04/08/2018 Chronic frontal sinusitis 01/07/2018 Atherosclerosis of aorta 11/19/2017 Morbid obesity with BMI of 45.0-49.9, adult 08/24/2017 02/16/2020 Overview: Per Obesity protocol RBBB (right bundle branch block) 06/26/2017 05/06/2022 BMI 45.0-49.9, adult 12/04/2016 018 Cellulitis of left lower extremity 10/27/2015 09/24/2016 Bilateral edema of lower extremity 07/11/2015 09/24/2016 Hx MRSA infection 09/12/2014 09/24/2016 History of tobacco use 08/25/201309/24 Preoperative cardiovascular examination 04/25/2013 09/24/2016 Hemorrhage of rectum and anus 01/03/2013 09/24/2016 Dizziness 01/03/2013 09/24/2016 Acute respiratory failure with hypoxia 01/03/2013 09/22/2016 Community acquired pneumonia 01/03/2013 09/24/2016 PAF (paroxysmal atrial fibrillation) 01/03/2013 02/14/2020 DM type 2, not at goal 01/03/201308/24 C. difficile colitis 12/09/2012 017 Genetic Sleep Disorder [facility] Other*[id number] 03/02/2012 11/01/2015 Tobacco use disorder 11/20/2011 014 Allergic rhinitis 11/20/2011 09/24/2016 Non-allergic rhinitis 11/20/20112016 MRSA cellulitis 11/10/2011 09/24/2016 COPD, moderate 06/11/2011 10/20/2019 Overview: Per COPD GOLD Classification Dermatitis 03/07/2011 09/24/2016 Overview: Strongly favor Allergic Contact Dermatitis (Dermatitis Medicamentosa) Stop all current topicals. mometasone .1% ointment Intramuscular Kenalog ADVANCE DIRECTIVE INFORMATION 09/13/2004 12/09/2019 Overview: information given to pt CVA 07/02/2004 07/20/2008 Overview: Modified per CVA protocol #8 Asthma exacerbation in COPD 07/15/2002 04/08/2018 Other chronic sinusitis 07/15/200209/05 ADJ DISORDER W/DEPRES MOOD 07/15/2002 0 12/09/2019 DM, UNCONTROLLED, TYPE II Tobacco use disorder 012 Chronic sinusitis 09/24/2016 Allergic rhinitis 11/20/2011 NON ALLERGIC RHINITIS 2011 Sensorineural hearing loss, bilateral 09/24/2016 Presbyacusis 05/06/2022 documented as of this encounter (statuses as of 03/06/2023) Immunizations Name Administration Dates Next Due COVID-19 mRNA, LNP-s, No Pre serve, 2-Dose Series (Moderna) 01/14/2021,06/06/2020,05/09/2020 COVID-19, MRNA-LNP, 23-24, P F, 30 MCG/0.3 mL, 12 YRS AND ABOVE, IM [facility] 12/30/2022 COVID-19, mRNA, LNP-s, PF, B ooster, 100mcg/0.5mg (Moderna) 08/12/2021 Covid-19, Mrna, Lnp-s, Pf, B ivalent, 30 Mcg, IM, 12 yrs and above (Pfizer) 12/30/2021 H1N1 2009 Influenza, IM 02/23/2009 Pneumococcal Conjugate Vacc, 13 Valent (Prevnar) 07/23/2017 Pneumococcal Polysaccharide PPV23 (Pneumovax) 08/10/2018,01/18/2002 SEASONAL INFLUENZA, PF, 6 M & Above, IM , (FLULAVAL or FLUZONE) 12/23/2019,01/15/2018,12/26/2016 12/26/2017 Season Influenza, Quad, PF, Adjuvanted, 65+ Yrs, IM (FLUAD) 12/30/2022 Seasonal Influenza Virus Vac cine, Unspecified Formulation 12/12/2021,12/31/2020,12/23/2019,01/04,01/15/2018,12/26/2016,12/06/19 17,01/16/2016,12/24/2015,01/04/2015,1 ,01/27/2013,01/15/2012,03/20,02/23/2009,01/18/2006, 5,02/22/2003,01/18/2002,02/22/2001 Seasonal Influenza, Quadriva lent Hd (Fluzone Hd) 12/12/2021,12/31/2020 Seasonal Influenza, Quadriva lent, No Preserve, IM 12/24/2015,12/28/2014 12/29/2015 Seasonal Influenza, Split, I IV3, With Preserve, Inj 01/18/2014,01/27/2013,01/15/2012,03/06,01/18/2006,05/03/2004,02/23/20 03,01/18/2002,02/22/2001 Seasonal Influenza, Trivalen t, Adjuvanted, 65+ yrs 01/14/2019 TDAP (age 10 and older)(Boostrix) 11/18/2010 TDAP (age 11 and older)(Adacel) 11/18/2010 Varicella Zoster Vaccine (Adult) 01/01/2012 Zoster Vaccine Recombinant (Shingrix) 02/10/2019 ,10/12/2018 12/13/2018 documented as of this encounter Social History Tobacco Use Types Packs/Day Years Used Date Smoking Tobacco: Former Cigarettes 2 30 Q uit: 12/16/2012 Passive Smoke Exposure: Current Smokeless Tobacco: Never Comments:started age 32, kyung t 2012 Alcohol Use Standard Drinks/Week Comments No 0 (1 standard drink = 0.6 oz pur e alcohol) PHQ-2 Answer Date Recorded PHQ-2 Score 0 01/20/2020 Hunger Vital Sign Answer Date Recorded Worried About Running Out of Food in the Last Ye ar Never true 01/14/2019 Ran Out of Food in the Last Year Never true 01/14/2019 Sex and Gender Information Value Date Recorded Sex Assigned at Female 07/21/2018 2:34 PM EDT Gender Identity Female 07/21/2018 2:34 PM EDT Sexual Orientation Straight 07/21/2018 2: 34 PM EDT Job Start Date Occupation Industry Not on file Not on file Not on file documented as of this encounter Miscellaneous Notes * Telephone Encounter - Sabine Mosley DO - 03/06/2023 2:09 PM EST Pls have her cont to monitor for low oxygen less than 95 and if so to callEMS * Telephone Encounter - Vaishnavi Torres, MED ASSIST - 03/06/2023 12:12 PM EST Pt states she does not have anyone to take her to the ER. Advised that she can call an ambulance but is insisting that if she did that she would be stranded because her has covid and cannot get her. * Telephone Encounter - Vaishnavi Torres MED ASSIST - 03/06/2023 11:49 AM EST Pt states she does have a pulse ox and that her level is at 95 when sitting. I had the pt walk around with the pulse ox on for a few minutes to see if the reading dropped at all. She sounds SOB and states it dropped down the 92 and HR is 80. Pt advised to go to the ER. Pt seems to be refusing the ER. * Telephone Encounter - Sabine Mosley DO - 03/06/2023 11:10 AM EST If she does not have access to a pulse ox then I would suggest an ER evaluation to get her vitals signs checked and a chest xray * Telephone Encounter - Cheyenne Galo CCMA - 03/06/2023 10:49 AM EST Called pt she tested positive for COVID on the , she states that she is having SOB when tried walking to her kitchen she states that she is feeling fatigue,weak, lightheaded, denies sore throat or fever. She states she is drinking lot of water. She states that she sharp pains on both leg and her feet our numb sometime. Please advise. Thank you. documented in this encounter Plan of Treatment Upcoming Encounters Date Type Department Care Team (Late st Contact Info) Description 03/16/2023 2:00 PM EST Office Visit Cardiology, [facility] [address] [address] Shahrzad Eric PA-C [address] [place] [address] 03/16/2023 5:30 PM EST Office Visit [facility] [address] [place] [address] Kyler Lawrence MD [address] [place] [address] 03/26/2023 2:15 PM EST Imaging Radiology [facility] [address] [place] [address] 04/09/2023 12:00 PM EST Telemedicine Pulmonary Medicine, [place] [address] [place] [address] Kevin Bell MD [address] [place] [address] Cart, Telemed Pulm Gw [address] [place] [address] 04/09/2023 1:00 PM EST Office Visit Pharmacy, [facility] [address] [place] [address] Kasi [facility] [address] [place] [address] 04/22/2023 2:15 PM EST Office Visit Urogynecology [facility] [address] [place] [address] Edvin Beasley MD [address] [facility] [place] [address] Nurse Kasi Urodung Bones [address] [facility] [address] Health Maintenance Due Date Last Done Comments Fecal Occult Blood Test 1997 Sigmoidoscopy 1997 Hepatitis B (1 of 3 - Risk 3-dose series) 2012 Colonoscopy 01/03/2020 01/02/2010 DTaP,Tdap,and Td Vaccines (3 - Td or Tdap) 11/18/2020 11/18/2010, 11/18/2010 Depression Screening 01/19/2021 01/20/2020 HbA1c 03/24/2023 09/22/2022, 05/07, 08/22/2021, Additional history exists Mammogram 03/24/2023 03/24/2022, 11/2020, 02/06/2020, Additional history exists B-12 05/19/2023 05/19/2022, 04/07, 10/20/2018, Additional history exists Diabetic Eye Exam 06/17/2023 06/16/2022, , 03/23/2020, Additional history exists Albumin/Creatinine Ratio 09/23/2023 023, 08/22/2021, 09/13/2020, Additional history exists Diabetic Foot Exam 09/23/2023 09/22/2022, 0 08/22/2021, 11/16/2020, Additional history exists GFR 09/23/2023 09/22/2022, 04/07, 08/22/2021, Additional history exists DXA Scan 01/04/2024 01/03/2019, 11/2013, 06/12/2000 O2 ASSESSMENT COMPLETED IN PAST YEAR FOR COPD 02/18/2024 02/17/2023 Cologuard 08/30/2024 08/30/2021, 08/05, 08/25/2021, Additional history exists Colorectal Cancer Screening 08/30/2024 Hepatitis C Screening Completed 09/12/2001 Pneumococcal Vaccine: 65+ Years Completed 08/10/2018, 07/23/2017, 01/18/2002 Zoster Vaccines Completed 02/10/2019, 12/2018, 01/01/2012 Alpha-1 Antitrypsin Completed 07/18/2021 LUNG CANCER SCREENING - USE SMARTSET 08495 Completed 09/08/2022, 08/26/2021, 01/23/2017 COVID-19 Vaccine Completed 12/30/2022, , 08/12/2021, Additional history exists Influenza Vaccine (FLU shot) Completed , 12/12/2021, 12/12/2021, Additional history exists GARDASIL-HPV IMMUNIZATION SERIES Aged Out No longer eligible based on patient's age to complete this topic MENINGOCOCCAL (MENACTRA/MENVEO) Aged Out No longer eligible based on patient's age to complete this topic documented as of this encounter Medical Devices Not on filedocumented as of this encounter Care Teams Packaging Coordinator Relationship Specialty Start Date End Date Sabine Mosley DO [address] [place] [facility] [place] [address] PCP - General Family Medicine 08/20/10 documented as of this encounter
--- OUTSIDE RECORDS SUMMARY | 2023-03-07 08:25 | External Medical Summary | Summary of Care ---
Author Name Unknown Organization [facility] Address [address] [place] [address] Phone [phone] Care Team Providers Care Plastic Boat Patcher Name Role Phone Sabine Mosley DO Primary Care Provider Encounter Details Date Type Department Care Team (Late st Contact Info) Description 03/06/2023 Telephone [facility] [address] [place] [address] Sabine Mosley [address] [place] [address] Allergies Active Allergy Reactions Criticality [...] :COPD, group B, by GOLD 2017 classification ([facility]) Inhale 2 Puffs by mouth every 6 [...] hemoglobin A1c goal of less than 7.0% ([facility]) Use to inject insulin four times daily E11.9 200 Each 3 08/18/2022 Active Nystatin-Triamcinol one 321230-9.1 UNIT/GM-% External Cream (Mycolog)Indication s:Melissa rash of groin APPLY TOPICALLY TO THE AFFECTED AREA TWICE DAILY FOR 14 DAYS. 30 g 1 08/27/2022 Active Nystatin 040025 UNIT/GM External Powder (Nystop)Indications :Melissa rash of [...] hemoglobin A1c goal of less than 7.0% ([facility]) TAKE 1 TABLET BY MOUTH TWICE A DAY 180 Tablet 1 10/23/2022 Active Baclofen 10 MG Oral Tablet (Lioresal)Indicatio ns:Spasm of lumbar paraspinous muscle,Chronic left-sided low back pain with left-sided sciatica TAKE 1 TABLET BY MOUTH IN THE MORNING AND BEFORE BEDTIME 20 Tablet 0 10/27/2022 Active Ipratropium [place] 0.03 % Nasal Solution (Atrovent) Administer 2 [...] hemoglobin A1c goal of less than 7.0% ([facility]) INJECT 65 UNITS TWICE DAILY DIRECTED. 60 mL 1 01/13/2023 Active Eliquis 5 MG Oral Tablet (Apixaban)Indicatio ns:PAF (paroxysmal atrial fibrillation) ([facility]),Cerebrovascul ar disease, arteriosclerotic, post-stroke TAKE 1 TABLET [...] s:COPD, group B, by GOLD 2017 classification ([facility]) Inhale 1 Puff by mouth in the [...] colitis 12/09/2012 017 Genetic Sleep Disorder [facility] Other*[id number] 03/02/2012 11/01/2015 Tobacco use disorder 11/20/2011 014 [...] MCG/0.3 mL, 12 YRS AND ABOVE, IM [facility] 12/30/2022 COVID-19, mRNA, LNP-s, PF, B ooster, [...] encounter Miscellaneous Notes * Telephone Encounter - Vaishnavi Torres MED [...] Team (Late st Contact Info) Description 03/06/2023 12:30 PM EST Scheduled Telephone Ancillary Department, [place] [address] [place] [address] [place], Nurse Follow Up Phone Call Schedule [address] [place] [address] Arrived 03/16/2023 2:00 PM EST Office Visit [facility] [address] Shahrzad Eric PA-C [address] [place] [address] 03/16/2023 5:30 PM EST Office [facility] [address] [place] [address] Kyler Lawrence MD [address] [place] [address] 03/26/2023 2:15 PM EST Imaging Radiology [facility] 1st [facility] [address] [facility] [place] [address] 04/09/2023 12:00 PM EST Telemedicine Pulmonary Medicine, [place] [address] [place] [address] Kevin Bell MD [address] [place] [address] Cart, Telemed Pulm Gw [address] [facility] [place] [address] 04/09/2023 1:00 PM EST Office Visit Pharmacy, [facility] [address] [facility] [place] [address] [facility] 132 [facility] [place] [address] 04/22/2023 2:15 PM EST Office Visit Urogynecology [facility] [address] [facility] [address] Edvin Beasley MD [address] [place] [address] Nurse Kasi Urodung [facility] [address] [place] [address] Health Maintenance Due Date Last Done Comments Fecal Occult Blood Test 1997 Sigmoidoscopy 1997 Hepatitis B (1 of 3 - Risk 3-dose series) 2012 Colonoscopy 01/03/2020 01/02/2010 DTaP,Tdap,and Td Vaccines (3 - Td or Tdap) 11/18/2020 11/18/2010, 11/18/2010 Depression Screening 01/19/2021 01/20/2020 HbA1c 03/24/2023 09/22/2022, 05/07, 08/22/2021, Additional history exists Mammogram 03/24/2023 03/24/2022, 110 11/2020, 02/06/2020, Additional history exists B-12 05/19/2023 05/19/2022, 04/07, 10/20/2018, Additional history exists Diabetic Eye Exam 06/17/2023 06/16/2022, , 03/23/2020, Additional history exists Albumin/Creatinine Ratio 09/23/2023 023, 08/22/2021, 09/13/2020, Additional history exists Diabetic Foot Exam 09/23/2023 09/22/2022, 0 08/22/2021, 11/16/2020, Additional history exists GFR 09/23/2023 09/22/2022, 04/07, 08/22/2021, Additional history exists DXA Scan 01/04/2024 01/03/2019, 0511/2013, 06/12/2000 O2 ASSESSMENT COMPLETED IN PAST YEAR FOR COPD 02/18/2024 02/17/2023 Cologuard 08/30/2024 08/30/2021, 08/05, 08/25/2021, Additional history exists Colorectal Cancer Screening 08/30/2024 Hepatitis C Screening Completed 09/12/2001 Pneumococcal Vaccine: 65+ Years Completed 08/10/2018, 07/23/2017, 01/18/2002 Zoster Vaccines Completed 02/10/2019, 12/2018, 01/01/2012 Alpha-1 Antitrypsin Completed 07/18/2021 LUNG CANCER SCREENING - USE SMARTSET 07808 Completed 09/08/2022, 08/26/2021, 01/23/2017 COVID-19 Vaccine Completed [...] filedocumented as of this encounter Care Teams Plastic Boat Patcher Relationship Specialty Start Date End Date Sabine Mosley DO [address] [place] [address] PCP - General Family Medicine 08/20/10 documented as of this encounter
--- OUTSIDE RECORDS SUMMARY | 2023-03-07 08:25 | External Medical Summary | Summary of Care ---
Author Name Unknown Organization [facility] Address [address] [place] [address] Phone [phone] Care Team Providers Care Experimental Worker Name Role Phone Sabine Mosley DO Primary Care Provider Reason for Visit * Reason Onset Date Comments Advice 03/06/2023 Encounter Details Date Type Department Care Team (Late st Contact Info) Description 03/06/2023 Telephone [facility] [address] [place] [address] Sabine Mosley [address] [place] [address] Advice Allergies Active Allergy Reactions Criticality Noted Date [...] 0 07/05/2014 Active Insulin Syringe 31G X 5/16" 0.5 ML MISCIndications:DM type 2, not at [...] MG Oral Tablet (Lopressor)Indicati ons:Dilated aortic root ([facility]) TAKE 1 AND 1/2 TABLETS BY MOUTH [...] :COPD, group B, by GOLD 2017 classification ([facility]) Inhale 2 Puffs by mouth every [...] hemoglobin A1c goal of less than 7.0% ([facility]) Use to inject insulin four times daily E11.9 200 Each 3 08/18/2022 Active Nystatin-Triamcinol one 558141-4.1 UNIT/GM-% External Cream (Mycolog)Indication s:Melissa rash of groin APPLY TOPICALLY TO THE AFFECTED AREA TWICE DAILY FOR 14 DAYS. 30 g 1 08/27/2022 Active Nystatin 663893 UNIT/GM External Powder (Nystop)Indications :Melissa rash of [...] hemoglobin A1c goal of less than 7.0% ([facility]) TAKE 1 TABLET BY MOUTH TWICE A DAY 180 Tablet 1 10/23/2022 Active Baclofen 10 MG Oral Tablet (Lioresal)Indicatio ns:Spasm of lumbar paraspinous muscle,Chronic left-sided low back pain with left-sided sciatica TAKE 1 TABLET BY MOUTH IN THE MORNING AND BEFORE BEDTIME 20 Tablet 0 10/27/2022 Active Ipratropium [place] 0.03 % Nasal Solution (Atrovent) Administer 2 [...] hemoglobin A1c goal of less than 7.0% ([facility]) INJECT 65 UNITS TWICE DAILY DIRECTED. 60 mL 1 01/13/2023 Active Eliquis 5 MG Oral Tablet (Apixaban)Indicatio ns:PAF (paroxysmal atrial fibrillation) ([facility]),Cerebrovascul ar disease, arteriosclerotic, post-stroke TAKE 1 [...] s:COPD, group B, by GOLD 2017 classification ([facility]) Inhale 1 Puff by mouth in [...] -- new CPAP at 8 cwp Dx 1993 AHP Cerebrovascular disease, arteriosclerotic, post- stroke 07/18/2008 [...] difficile colitis 12/09/2012 017 [facility] Other*[id number] 03/02/2012 11/01/2015 Tobacco use disorder 11/20/2011 014 [...] MCG/0.3 mL, 12 YRS AND ABOVE, IM (PFIZER-Comirnat) 12/30/2022 COVID-19, mRNA, LNP-s, PF, B ooster, [...] encounter Miscellaneous Notes * Telephone Encounter - Sary Ugalde LPN - 03/06/2023 2:12 PM EST Patient returned call. Informed of message. Verbalized understanding. Currently her SPO2 is 96% * Telephone Encounter - Sabine Mosley DO - 03/06/2023 2:09 PM EST Pls have her cont to monitor for low oxygen less than 95 and if so to callEMS * Telephone Encounter - Vaishnavi Torres MED ASSIST - 03/06/2023 12:12 PM EST [...] 03/16/2023 2:00 PM EST Office Visit Cardiology, [facility] [address] [facility] [place] [address] Shahrzad Eric PA-C 132 [facility] [place] [address] 03/16/2023 5:30 PM EST Office Visit Allergy/Immunology [facility] [address] [place] [address] Kyler Lawrence MD 200 [facility] [place] [address] 03/26/2023 2:15 PM EST Imaging Radiology [facility] 1st [facility] [address] [facility] [place] [address] 04/09/2023 12:00 PM EST Telemedicine Pulmonary Medicine, [place] [address] [place] [address] Kevin Bell MD [address] [place] [address] [place], Telemed Pulm [facility] [place] [address] 04/09/2023 1:00 PM EST Office Visit Pharmacy, [facility] [address] [facility] [place] [address] Villaseñor, [facility] 132 [place] [address] 04/22/2023 2:15 PM EST Office Visit Urogynecology [facility] [address] [facility] [place] [address] Edvin Beasley MD 132 [facility] [place] [address] Nurse Sadaf Villaseñor [address] [place] [address] Health Maintenance Due Date Last Done Comments [...] 07/18/2021 LUNG CANCER SCREENING - USE SMARTSET 37695 Completed 09/08/2022, 08/26/2021, 01/23/2017 COVID-19 Vaccine Completed [...] filedocumented as of this encounter Care Teams Experimental Worker Relationship Specialty Start Date End Date Sabine Mosley DO [address] [place] [address] PCP - General Family Medicine 08/20/10 documented as of this encounter
--- OUTSIDE RECORDS SUMMARY | 2023-03-07 08:25 | External Medical Summary | Summary of Care ---
Author Name Unknown Organization [facility] Address [address] [place] [address] Phone [phone] Care Team Providers Care Feeder Driver Name Role Phone Sabine Mosley DO Primary Care Provider Encounter Details Date Type Department Care Team (Late st Contact Info) Description 03/06/2023 Telephone [facility] [address] [place] [address] Sabine Mosley [address] [place] [address] Allergies Active Allergy Reactions Criticality [...] :COPD, group B, by GOLD 2017 classification ([facility]) Inhale 2 Puffs by mouth every [...] hemoglobin A1c goal of less than 7.0% ([facility]) Use to inject insulin four times daily E11.9 200 Each 3 08/18/2022 Active Nystatin-Triamcinol one 359663-0.1 UNIT/GM-% External Cream (Mycolog)Indication s:Melissa rash of groin APPLY TOPICALLY TO THE AFFECTED AREA TWICE DAILY FOR 14 DAYS. 30 g 1 08/27/2022 Active Nystatin 296657 UNIT/GM External Powder (Nystop)Indications :Melissa rash of [...] hemoglobin A1c goal of less than 7.0% ([facility]) TAKE 1 TABLET BY MOUTH TWICE A DAY 180 Tablet 1 10/23/2022 Active Baclofen 10 MG Oral Tablet (Lioresal)Indicatio ns:Spasm of lumbar paraspinous muscle,Chronic left-sided low back pain with left-sided sciatica TAKE 1 TABLET BY MOUTH IN THE MORNING AND BEFORE BEDTIME 20 Tablet 0 10/27/2022 Active Ipratropium [place] 0.03 % Nasal Solution (Atrovent) Administer 2 [...] hemoglobin A1c goal of less than 7.0% ([facility]) INJECT 65 UNITS TWICE DAILY DIRECTED. 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 [facility] Other*[id number] 03/02/2012 11/01/2015 Tobacco use disorder 11/20/2011 014 [...] MCG/0.3 mL, 12 YRS AND ABOVE, IM [facility] 12/30/2022 COVID-19, mRNA, LNP-s, PF, [...] 12:30 PM EST Scheduled Telephone Ancillary Department, [place] [address] [place] [address] [place], Nurse Follow Up Phone Call Schedule [address] [place] [address] Arrived 03/16/2023 2:00 PM EST Office Visit Cardiology, [facility] [address] [place] [address] Shahrzad Eric PA-C 132 [facility] [place] [address] 03/16/2023 5:30 PM EST Office Visit Allergy/Immunology [facility] 200 [facility] [place] [address] Kyler Lawrence MD [address] [place] [address] 03/26/2023 2:15 PM EST Imaging Radiology [facility] [facility] 132 [place] [address] 04/09/2023 12:00 PM EST Telemedicine Pulmonary Medicine, [place] [address] [place] [address] Kevin Bell MD [address] [place] [address] Cart, Telemed Pulm Gw [address] [place] [address] 04/09/2023 1:00 PM EST [facility] [address] [place] [address] Kasi [facility] [address] [place] [address] 04/22/2023 2:15 PM EST Office Visit Urogynecology Bonekr[facility]na Villaseñor [address] [place] [address] Edvin Beasley MD [address] [place] [address] Nurse Kasi Urogyn [place] [address] [place] [address] Health Maintenance Due Date Last Done Comments Fecal Occult Blood Test 1997 Sigmoidoscopy 1997 Hepatitis B (1 of 3 - Risk 3-dose series) 2012 Colonoscopy 01/03/2020 01/02/2010 DTaP,Tdap,and Td Vaccines (3 - Td or Tdap) 11/18/2020 11/18/2010, 11/18/2010 Depression Screening 01/19/2021 01/20/2020 HbA1c 03/24/2023 09/22/2022, 05/07, 08/22/2021, Additional history exists Mammogram 03/24/2023 03/24/2022, 11/0 11/2020, 02/06/2020, Additional history exists B-12 05/19/2023 [...] 07/18/2021 LUNG CANCER SCREENING - USE SMARTSET 72483 Completed 09/08/2022, 08/26/2021, 01/23/2017 COVID-19 Vaccine Completed [...] filedocumented as of this encounter Care Teams Feeder Driver Relationship Specialty Start Date End Date Sabine Mosley DO [address] [place] [address] PCP - General Family Medicine 08/20/10 documented as of this encounter
--- OUTSIDE RECORDS SUMMARY | 2023-03-07 08:25 | External Medical Summary | Summary of Care ---
Author Name Unknown Organization [facility] Address [address] [place] [address] Phone [phone] Care Team Providers Care Monorail Charger Operator Name Role Phone Sabine Mosley Primary Care Provider [phone] Reason for Visit * Reason Onset Date Comments COVID-19 Screening 03/06/2023 Called pt she tested positive for COVID on the , she states that she is having SOB when tried walking to her kitchen she states that she is feeling fatigue,weak, lightheaded, denies sore throat or fever. She states she is drinking lot of water. She states that she sharp pains on both leg and her feet our numb sometime. Please advise. Thank you. Encounter Details Date Type Department Care Team (Late st Contact Info) Description 03/06/2023 12:30 PM EST Scheduled Telephone Ancillary Department, [place] [address] [place] [address] [place], Nurse Follow Up Phone Call Schedule [address] [place] [address] Arrived Allergies Active Allergy Reactions Criticality Noted Date [...] :COPD, group B, by GOLD 2017 classification ([facility]) Inhale 2 Puffs by mouth every 6 [...] hemoglobin A1c goal of less than 7.0% ([facility]) Use to inject insulin four times daily E11.9 200 Each 3 08/18/2022 Active Nystatin-Triamcinol one 429163-3.1 UNIT/GM-% External Cream (Mycolog)Indication s:Melissa rash of groin APPLY TOPICALLY TO THE AFFECTED AREA TWICE DAILY FOR 14 DAYS. 30 g 1 08/27/2022 Active Nystatin 690957 UNIT/GM External Powder (Nystop)Indications :Melissa rash of [...] hemoglobin A1c goal of less than 7.0% ([facility]) TAKE 1 TABLET BY MOUTH TWICE A DAY 180 Tablet 1 10/23/2022 Active Baclofen 10 MG Oral Tablet (Lioresal)Indicatio ns:Spasm of lumbar paraspinous muscle,Chronic left-sided low back pain with left-sided sciatica TAKE 1 TABLET BY MOUTH IN THE MORNING AND BEFORE BEDTIME 20 Tablet 0 10/27/2022 Active Ipratropium [place] 0.03 % Nasal Solution (Atrovent) Administer 2 [...] hemoglobin A1c goal of less than 7.0% ([facility]) INJECT 65 UNITS TWICE DAILY DIRECTED. 60 mL 1 01/13/2023 Active Eliquis 5 MG Oral Tablet (Apixaban)Indicatio ns:PAF (paroxysmal atrial fibrillation) ([facility]),Cerebrovascul ar disease, arteriosclerotic, post-stroke TAKE 1 TABLET [...] s:COPD, group B, by GOLD 2017 classification ([facility]) Inhale 1 Puff by mouth in the [...] frontal sinusitis 01/07/2018 Atherosclerosis of aorta 11/19/2017 01/ Morbid obesity with BMI of 45.0-49.9, adult [...] colitis 12/09/2012 017 Genetic Sleep Disorder [facility] Other*[id number] 03/02/2012 11/01/2015 Tobacco use disorder 11/20/2011 014 [...] MCG/0.3 mL, 12 YRS AND ABOVE, IM (Outsmart-Comnat) 12/30/2022 COVID-19, mRNA, LNP-s, PF, B ooster, 100mcg/0.5mg (Moderna) 08/12/2021 Covid-19, Mrna, Lnp-s, Pf, B ivalent, 30 Mcg, IM, 12 yrs and above (Pfizer) 12/30/2021 H1N1 2009 Influenza, IM 02/23/2009 Pneumococcal Conjugate Vacc, 13 Valent (Prevnar) 07/23/2017 Pneumococcal Polysaccharide PPV23 (Pneumovax) 08/10/2018 SEASONAL INFLUENZA, PF, 6 M & Above, IM , (FLULAVAL or FLUZONE) 12/23/2019,01/15/2018,12/26/2016 12/26/2017 Season Influenza, Quad, PF, Adjuvanted, 65+ Yrs, IM (FLUAD) 12/30/2022 Seasonal Influenza Virus Vac cine, Unspecified Formulation 12/12/2021,12/31/2020,12/23/2019,01/04,01/15/2018,12/26/2016,12/06/19 17,01/16/2016,12/24/2015,01/04/2015,1 ,01/27/2013,01/15/2012,03/20,02/23/2009,01/18/2006, 5,02/22/2003,01/18/2002,02/22/2001 Seasonal Influenza, Quadriva lent Hd (Fluzone Hd) 12/12/2021,12/31/2020 Seasonal Influenza, Quadriva lent, No Preserve, IM 12/24/2015,12/28/2014 12/29/2015 Seasonal Influenza, Split, I IV3, With Preserve, Inj 01/18/2014,01/27/2013,01/15/2012,03/06,01/18/2006 Seasonal Influenza, Trivalen t, Adjuvanted, 65+ yrs [...] encounter Miscellaneous Notes * Telephone Encounter - Iraj [place], [facility] - 03/06/2023 10:43 AM EST Called pt she tested positive [...] 03/16/2023 2:00 PM EST Office Visit Cardiology, [facility] [address] [facility] [place] [address] Shahrzad Eric PA-C 132 [facility] [place] [address] 03/16/2023 5:30 PM EST Office Visit Allergy/Immunology [facility] [address] [place] [address] Kyler Lawrence MD 200 [facility] [place] [address] 03/26/2023 2:15 PM EST Imaging Radiology [facility]st [facility] [address] [facility] [place] [address] 04/09/2023 12:00 PM EST Telemedicine Pulmonary Medicine, [place] [address] [place] [address] Kevin Bell MD [address] [place] [address] [place] [address] [facility] [place] [address] 04/09/2023 1:00 PM EST Office Visit Pharmacy, [facility] [address] [facility] [place] [address] [facility] [address] [place] [address] 04/22/2023 2:15 PM EST Office Visit Urogynecology [address] [place] [address] Edvin Beasley MD [address] [place] [address] Nurse Sadaf Villaseñor [address] [place] [address] Health Maintenance Due Date Last Done Comments [...] 07/18/2021 LUNG CANCER SCREENING - USE SMARTSET [id number] Completed 09/08/2022, 08/26/2021, 01/23/2017 COVID-19 Vaccine Completed [...] filedocumented as of this encounter Care Teams Monorail Charger Operator Relationship Specialty Start Date End Date Sabine Mosley DO [address] [place] [address] PCP - General Family Medicine 08/20/10 documented as of this encounter
--- OUTSIDE RECORDS SUMMARY | 2023-03-07 08:25 | External Medical Summary | Summary of Care ---
Author Name Unknown Organization [facility] Address [address] [place] [address] Phone [phone] Care Team Providers Care Welder Repair Name Role Phone Sabine Mosley DO Primary Care Provider Encounter Details Date Type Department Care Team (Late st Contact Info) Description 03/06/2023 Telephone [facility] [address] [place] [address] Sabine Mosley [address] [place] [address] Allergies Active Allergy Reactions Criticality [...] group B, by GOLD 2017 classification ([facility]) Inhale 2 Puffs by mouth every 6 [...] A1c goal of less than 7.0% ([facility]) Use to inject insulin four times daily E11.9 200 Each 3 08/18/2022 Active Nystatin-Triamcinol one 577238-9.1 UNIT/GM-% External Cream (Mycolog)Indication s:Melissa rash of groin APPLY TOPICALLY TO THE AFFECTED AREA TWICE DAILY FOR 14 DAYS. 30 g 1 08/27/2022 Active Nystatin 524053 UNIT/GM External Powder (Nystop)Indications :Melissa rash of [...] A1c goal of less than 7.0% ([facility]) TAKE 1 TABLET BY MOUTH TWICE A DAY 180 Tablet 1 10/23/2022 Active Baclofen 10 MG Oral Tablet (Lioresal)Indicatio ns:Spasm of lumbar paraspinous muscle,Chronic left-sided low back pain with left-sided sciatica TAKE 1 TABLET BY MOUTH IN THE MORNING AND BEFORE BEDTIME 20 Tablet 0 10/27/2022 Active Ipratropium [place] 0.03 % Nasal Solution (Atrovent) Administer 2 [...] A1c goal of less than 7.0% ([facility]) INJECT 65 UNITS TWICE DAILY DIRECTED. 60 mL 1 01/13/2023 Active Eliquis 5 MG Oral Tablet (Apixaban)Indicatio ns:PAF (paroxysmal atrial fibrillation) ([facility]),Cerebrovascul ar disease, arteriosclerotic, post-stroke TAKE 1 TABLET [...] group B, by GOLD 2017 classification ([facility]) Inhale 1 Puff by mouth in the [...] colitis 12/09/2012 017 Genetic Sleep Disorder Resea [facility] Other*[id number] 03/02/2012 11/01/2015 Tobacco use disorder 11/20/2011 014 [...] MCG/0.3 mL, 12 YRS AND ABOVE, IM [facility] 12/30/2022 COVID-19, mRNA, LNP-s, PF, B ooster, [...] 12:30 PM EST Scheduled Telephone Ancillary Department, Shiela [address] [facility] [address] Shiela Nurse Follow Up Phone Call Schedule [address] [facility] [place] [address] Arrived 03/16/2023 2:00 PM EST Office Visit Cardiology, [facility] [address] [place] [address] Shahrzad Eric, BEBE [address] [place] [address] 03/16/2023 5:30 PM EST Office Visit [facility] [address] [place] [address] Kyler Lawrence MD [address] [place] [address] 03/26/2023 2:15 PM EST Imaging Radiology [facility] [address] [facility] [address] [facility] [place] [address] 04/09/2023 12:00 PM EST Telemedicine Pulmonary Medicine, [place] [address] [place] [address] Kevin Bell MD [address] [place] [address] Cart, Telemed Pulm Gw [address] [facility] [place] [address] 04/09/2023 1:00 PM EST Office Visit Pharmacy, [facility] [address] [facility] [place] [address] Kasi [facility] 132 [facility] [place] [address] 04/22/2023 2:15 PM EST Office Visit Urogynecology [facility] [address] [facility] [place] [address] Edvin Beasley MD [address] [place] [address] Nurse Kasi [facility] [place] [address] Health Maintenance Due Date Last Done Comments [...] 07/18/2021 LUNG CANCER SCREENING - USE SMARTSET 00616 Completed 09/08/2022, 08/26/2021, 01/23/2017 COVID-19 Vaccine Completed [...] filedocumented as of this encounter Care Teams Welder Repair Relationship Specialty Start Date End Date Sabine Mosley DO [address] [place] [address] PCP - General Family Medicine 08/20/10 documented as of this encounter
--- OUTSIDE RECORDS SUMMARY | 2023-03-07 08:26 | External Medical Summary | Summary of Care ---
Author Name Unknown Organization [facility] Address [address] [place] [address] Phone [phone] Care Team Providers Care Vending Machine Mechanic Name Role Phone Sabine Mosley DO Primary Care Provider Reason for Visit * Reason Onset Date Comments Medication Refill 03/03/2023 Consuelo lea 10-62.5-25 Encounter Details Date Type Department Care Team (Late st Contact Info) Description 03/03/2023 Refill Pulmonary Medicine Bárbara Roth [address] [place] [address] Lucien Mcgee MD [address] [place] [id number] COPD, group B, by GOLD 2017 classification ([facility])* Allergies Active Allergy Reactions Criticality Noted Date Comments Adhesive Tape 11/04/2017 sensitivity Cephalosporins Unknown 09/08/2000 Clarithromycin Rash 09/08/2000 Clavulanic Acid Unknown 02/17/2022 Clobetasol Unknown 02/17/2022 Sulfa Antibiotics High 09/08/2000 Unknown Other Reaction(s): "Sulfa Drugs = rash" Terconazole 09/09/2002 terazol - made her itchy documented as of this encounter (statuses as of 03/04/2023) Medications Medication Sig Dispensed Refills Start Date End Date Status INSULIN SYRINGES (DISP) 1ML U-100 MISCIndications:DM type 2, goal A1c below 7 as directed BID 100 6 6 Active OMEGA 3-6-9 FATTY ACIDS PO CAPS [...] mouth in the morning. 60 Cap 17 5 Active clobetasol propionate (TEMOVATE) 0.05 % cream As needed 0 5 Active Insulin Syringe 31G X 5/16" 0.5 ML MISCIndications:DM type 2, not at goal (HCC) Use with insulin to inject 6 times per day as directed DX 250.00 6 Box 2 5 Active levalbuterol (XOPENEX HFA) 45 MCG/ACT inhaler 0 7 Active Bisacodyl 5 MG Oral Tablet Delayed [...] as directed 3 Box Dosing Unit 3 8 Active Glucose Blood (ONETOUCH VERIO) STRP Use up to 4 times a day E11.9 300 Strip 3 8 Active Loratadine 10 MG Cap Take 1 [...] daily for 3 weeks 22 g 1 2 Active Triamcinolone Acetonide 55 MCG/ACT Nasal Aerosol Administer into nostril 2 Sprays in the morning. 16.9 mL 0 2 Active Premarin 0.625 MG/GM Vaginal Cream (Estrogens, Conjugated)Indicati ons:Postmenopausal atrophic vaginitis ADMINISTER INTO THE VAGINA AT BEDTIME. DIRECTED. 90 g 2 2 Active CPAP every night at bedtime. 0 Active Nebulizer/Tubing/Mo uthpiece Kit Please provide mask 1 Kit 0 2 Active Metoprolol Tartrate 50 MG Oral Tablet (Lopressor)Indicati ons:Dilated aortic root (HCC) TAKE 1 AND 1/2 TABLETS BY MOUTH 2 TIMES A DAY. 270 Tablet 3 3 Active Saccharomyces boulardii 250 MG Oral Capsule (Florastor) Take 1 Capsule by mouth in the morning and 1 Capsule before bedtime. 20 Capsule 0 3 Active Levalbuterol HCl 0.63 MG/3ML Inhalation Nebulization Solution (Xopenex) Inhale 3 mL via nebulizer every 4 hours as needed for Wheezing. 1080 mL 5 3 Active Albuterol Sulfate HFA 108 (90 Base) MCG/ACT Inhalation Aerosol SolutionIndications :COPD, group B, by GOLD 2017 classification ([facility]) Inhale 2 Puffs by mouth every 6 hours as needed for Cough, Shortness of Breath or Wheezing. 18 g 2 3 Active Ozempic (2 MG/DOSE) 8 MG/3ML Subcutaneous Solution Pen-injector (Semaglutide (2 MG/DOSE)) Inject under the skin. 0 Active Fluconazole 150 MG Oral Tablet (Diflucan)Indicatio ns:Yeast infection TAKE 1 TABLET BY MOUTH EVERY DAY ONE DOSE 1 Tablet 1 3 Active BD Pen Needle Isamar 2nd Gen 32G X 4 MMIndications:Type 2 diabetes mellitus with hemoglobin A1c goal of less than 7.0% ([facility]) Use to inject insulin four times daily E11.9 200 Each 3 3 Active Nystatin-Triamcinol one 589892-7.1 UNIT/GM-% External Cream (Mycolog)Indication s:Melissa rash of groin APPLY TOPICALLY TO THE AFFECTED AREA TWICE DAILY FOR 14 DAYS. 30 g 1 3 Active Nystatin 738953 UNIT/GM External Powder (Nystop)Indications :Melissa rash of groin APPLY 0.5 GRAM TO THE GROIN TWICE DAILY IN THE MORNING AND THE EVENING. 60 g 5 3 Active Pantoprazole Sodium 40 MG Oral Tablet Delayed Release (Protonix)Indicatio ns:Gastroesophageal reflux disease without esophagitis TAKE 1 TABLET BY MOUTH EVERY DAY 90 Tablet 3 3 Active Montelukast Sodium 10 MG Oral Tablet (Singulair)Indicati ons:Chronic rhinitis TAKE 1 TABLET BY MOUTH EVERY DAY 90 Tablet 1 3 Active Triamcinolone Acetonide 0.1 % External Ointment (Aristocort)Indicat ions:Hand dermatitis Apply topically to affected area 2 times a day. To affected area. 15 g 5 3 Active Hydrocortisone Acetate 25 MG Rectal Suppository (Anusol-HC) Administer 1 Suppository into the rectum in the morning and 1 Suppository before bedtime. As directed.. 12 Suppository 0 3 Active Famotidine 20 MG Oral Tablet (Pepcid) TAKE 1 TABLET BY MOUTH EVERY DAY 90 Tablet 1 3 Active NovoLOG FlexPen 100 UNIT/ML Subcutaneous Solution Pen-injector (insulin aspart) Inject 20-25 Units under the skin in the morning and 20-25 Units in the evening. With meals. 30 mL 5 3 Active metFORMIN HCl 1000 MG Oral Tablet (Glucophage)Indicat ions:Type 2 diabetes mellitus with hemoglobin A1c goal of less than 7.0% ([facility]) TAKE 1 TABLET BY MOUTH TWICE A DAY 180 Tablet 1 3 Active Baclofen 10 MG Oral Tablet (Lioresal)Indicatio ns:Spasm of lumbar paraspinous muscle,Chronic left-sided low back pain with left-sided sciatica TAKE 1 TABLET BY MOUTH IN THE MORNING AND BEFORE BEDTIME 20 Tablet 0 3 Active Ipratropium [place] 0.03 % Nasal Solution (Atrovent) Administer 2 Sprays into nostril in the morning and 2 Sprays before bedtime. 90 mL 4 3 Active Tamsulosin HCl 0.4 MG Oral Capsule (Flomax) TAKE 1 CAPSULE BY MOUTH EVERYDAY AT BEDTIME 0 3 Active HYDROcodone-Acetami nophen 5-325 MG Oral TabletIndications:N ephrolithiasis Take 1 Tablet by mouth every 6 hours as needed for Pain, Severe. 30 Tablet 0 3 Active OneTouch Verio In Vitro Strip (Glucose Blood) Use up to 4 times a day E11.9 100 Strip 11 3 Active OneTouch Verio w/Device Kit Use up to 3 times a day E11.9 1 Kit 0 3 Active Insulin Glargine Solostar 100 UNIT/ML Subcutaneous Solution Pen-injector (Basaglar KwikPen)Indications :Type 2 diabetes mellitus with hemoglobin A1c goal of less than 7.0% ([facility]) INJECT 65 UNITS TWICE DAILY DIRECTED. 60 mL 1 3 Active Eliquis 5 MG Oral Tablet (Apixaban)Indicatio ns:PAF (paroxysmal atrial fibrillation) ([facility]),Cerebrovascul ar disease, arteriosclerotic, post-stroke TAKE 1 TABLET BY MOUTH TWICE A DAY 180 Tablet 3 3 Active Atorvastatin Calcium 40 MG Oral Tablet (Lipitor)Indication s:Dyslipidemia, goal LDL below 70 TAKE 1 TABLET BY MOUTH EVERY DAY 90 Tablet 1 3 Active Nitrofurantoin Macrocrystal 100 MG Oral Capsule (Macrodantin) 0 3 Active Torsemide 10 MG Oral Tablet (Demadex) 2 Tablets. 0 3 Active Phenazopyridine HCl 100 MG Oral Tablet (Pyridium) 0 3 Active Ondansetron HCl 4 MG Oral Tablet (Zofran)Indications :Nausea Take 1 Tablet by mouth every 8 hours as needed for Nausea. 30 Tablet 0 3 Active Trelegy Ellipta 100-62.5-25 MCG/ACT Aerosol Powder Breath ActivatedIndication s:COPD, group B, by GOLD 2017 classification ([facility]) Inhale 1 Puff by mouth in the morning. 60 Blister Dosing Unit 5 3 Active Trelegy Ellipta 100-62.5-25 MCG/INH Aerosol Powder Breath Activated Inhale by mouth 1 Puff in the morning. 60 Blister Dosing Unit 5 2 03/03/20 23 Discontinu ed(Refill) documented as of this encounter (statuses as of 03/04/2023) Active Problems Problem Noted Date Diagnosed Date [...] as of this encounter (statuses as of 03/04/2023) Resolved Problems Problem Noted Date Diagnosed Date [...] colitis 12/09/2012 017 Genetic Sleep Disorder Resea [facility] Other*[id number] 03/02/2012 11/01/2015 Tobacco use disorder 11/20/2011 014 [...] as of this encounter (statuses as of 03/04/2023) Immunizations Name Administration Dates Next Due COVID-19 mRNA, LNP-s, No Pre serve, 2-Dose Series (Moderna) 01/14/2021,06/06/2020,05/09/2020 COVID-19, MRNA-LNP, 23-24, P F, 30 MCG/0.3 mL, 12 YRS AND ABOVE, IM ([facility]) 12/30/2022 COVID-19, mRNA, LNP-s, PF, B ooster, [...] encounter Miscellaneous Notes * Telephone Encounter - Lucien Mcgee MD - 03/03/2023 2:31 PM ESTSigned Prescriptions: Disp Refills Trelegy Ellipta 100-62.5-25 MCG/ACT Aeroso*60 Bli*5 Sig: Inhale 1 Puff by mouth in the morning. Authorizing Provider: LUCIEN MCGEE * Telephone Encounter - Maria Del Carmen Zimmerman LPN - 03/03/2023 10:25 AM EST m documented in this encounter Plan of Treatment Upcoming Encounters Date Type Department Care Team (Late st Contact Info) Description 03/06/2023 12:30 PM EST Scheduled Telephone Ancillary Department, [place] [address] [place] [address] [place], Nurse Follow Up Phone Call Schedule [address] [place] [address] 03/16/2023 2:00 PM EST Office Visit Cardiology, [facility] [address] [place] [address] Shahrzad Eric PA-C [address] [place] [address] 03/16/2023 5:30 PM EST Office Visit Allergy/Immunology [facility] [address] [facility] [place] [address] Kyler Lawrence MD 200 [facility] [place] [address] 03/26/2023 2:15 PM EST Imaging Radiology [facility] [facility] [address] [place] [address] 04/09/2023 12:00 PM EST Telemedicine Pulmonary Medicine, [place] [address] [place] [address] Kevin Bell MD [address] [place] [address] Cart, Telemed Pulm Gw [address] [facility] [place] [address] 04/09/2023 1:00 PM EST [facility] [address] [facility] [place] [address] Kasi [facility] [address] [place] [address] 04/22/2023 2:15 PM EST Office Visit Urogynecology [facility] [address] [facility] [place] [address] Edvin Beasley MD [address] [place] [address] Nurse Kasi Urogyn [facility] [address] [place] [address] Health Maintenance Due Date Last Done Comments [...] 07/18/2021 LUNG CANCER SCREENING - USE SMARTSET [id number] Completed 09/08/2022, 08/26/2021, 01/23/2017 COVID-19 Vaccine Completed [...] Not on filedocumented as of this encounter Visit Diagnoses Diagnosis COPD, group B, by GOLD 2017 classification (HCC)- Primary documented in this encounter Care Teams Vending Machine Mechanic Relationship Specialty Start Date End Date Sabine Mosley DO [address] [place] [address] PCP - General Family Medicine 08/20/10 documented as of this encounter
--- OUTSIDE RECORDS SUMMARY | 2023-03-07 08:26 | External Medical Summary | Summary of Care ---
Author Name Unknown Organization [facility] Address [address] [place] [address] Phone [phone] Care Team Providers Care Superintendent Custodian Janitor Name Role Phone Sabine Mosley DO Primary Care Provider Reason for Visit * Reason Onset Date Comments Advice 03/02/2023 COVID EXPOSURE Encounter Details Date Type Department Care Team (Late st Contact Info) Description 03/02/2023 Telephone [facility] [address] [place] [address] Sabine Mosley, [address] [place] [address] Advice (COVID EXPOSURE) Allergies Active Allergy Reactions Criticality Noted Date [...] 0 5 Active Insulin Syringe 31G X 16" 0.5 ML MISCIndications:DM type 2, not at [...] :COPD, group B, by GOLD 2017 classification ([facility]) Inhale 2 Puffs by mouth every [...] hemoglobin A1c goal of less than 7.0% ([facility]) Use to inject insulin four times daily E11.9 200 Each 3 3 Active Nystatin-Triamcinol one 917123-3.1 UNIT/GM-% External Cream (Mycolog)Indication s:Melissa rash of groin APPLY TOPICALLY TO THE AFFECTED AREA TWICE DAILY FOR 14 DAYS. 30 g 1 3 Active Nystatin 199685 UNIT/GM External Powder (Nystop)Indications :Melissa rash of [...] hemoglobin A1c goal of less than 7.0% ([facility]) TAKE 1 TABLET BY MOUTH TWICE A DAY 180 Tablet 1 3 Active Baclofen 10 MG Oral Tablet (Lioresal)Indicatio ns:Spasm of lumbar paraspinous muscle,Chronic left-sided low back pain with left-sided sciatica TAKE 1 TABLET BY MOUTH IN THE MORNING AND BEFORE BEDTIME 20 Tablet 0 3 Active Ipratropium [place] 0.03 % Nasal Solution (Atrovent) Administer 2 [...] hemoglobin A1c goal of less than 7.0% ([facility]) INJECT 65 UNITS TWICE DAILY DIRECTED. 60 mL 1 3 Active Eliquis 5 MG Oral Tablet (Apixaban)Indicatio ns:PAF (paroxysmal atrial fibrillation) ([facility]),Cerebrovascul ar disease, arteriosclerotic, post-stroke TAKE 1 [...] Tablet 0 3 Active Trelegy Ellipta 100-62.5-25 MCG/INH Aerosol [...] block) 06/26/2017 05/06/2022 BMI 45.0-49.9, adult 12/04/2016 05/21/2 018 Cellulitis of left lower extremity 10/27/2015 [...] colitis 12/09/2012 017 Genetic Sleep Disorder Resea [facility] Other*[id number] 03/02/2012 11/01/2015 Tobacco use disorder 11/20/2011 014 [...] MCG/0.3 mL, 12 YRS AND ABOVE, IM (PFIZER-Comirnaty) 12/30/2022 COVID-19, mRNA, LNP-s, PF, B ooster, [...] encounter Miscellaneous Notes * Telephone Encounter - Ayanna Lovett OSA - 03/04/2023 12:47 PM EST Scheduled. 03/04/2023 * Telephone Encounter - Sabine Mosley DO - 03/04/2023 11:17 AM EST At this point the antiviral medication Paxlovid would not be helpful Pls put pt on nurse visit on Thursday to check and see how she is doing with a call I had filled out paperwork in the past for home visits. * Telephone Encounter - Destiny Sanchez LPN - 03/03/2023 1:33 PM EST Patient calling back stating that she just took a Covid test today 03/03/2023 and it was positive. Symptoms: Congestion, cough, diarrhea, nausea, runny nose and sneezing Symptoms started on 02/20/2023 She stated that she is taking Mucinex and Coricidin Patient also stated that she has been waiting for paperwork to be completed for her to get a home health aid to assist her with ADL's. She stated that the process was started in September but the paperwork was not completed and had to be filled out again. Please advise * Telephone Encounter - Sary Ugalde LPN - 03/02/2023 11:40 AM EST Pt calling in about previous message. Informed of message. She will test herself and call back if positive. She would like to make PCP aware, [facility] has [facility]. He put her on macrobid until she has her surgery on 03/11. This is FYI * Telephone Encounter - Sabine Mosley DO - 03/02/2023 11:25 AM EST If able she should take a home covid test, and let us know if this is + * Telephone Encounter - Lyudmila Tran OSA - 03/02/2023 10:28 AM EST Patient advising that her tested positive for COVID over the weekend. She states she came down with congestion & cough last week however, it's resolving. She believes she may have given it to him but did not test. Patient used mucinex and felt it helped with her symptoms & they are resolving at this time. She is feeling fatigued at this time with slight congestion. She does report ongoing constipation & diarrhea as well. Please advise if she should do anything regarding. She is asking if she should be testing as well? [phone] documented in this encounter Plan of Treatment Upcoming Encounters Date Type Department Care Team (Late st Contact Info) Description 03/06/2023 12:30 PM EST Scheduled Telephone Ancillary Department, [place] [address] [place] [facility] [place] [address] [place], Nurse Follow Up Phone Call Schedule [address] [place] [address] 03/16/2023 2:00 PM EST Office Visit Cardiology, [facility] 132 [place] [address] Shahrzad Eric PA-C 132 [facility] [address] 03/16/2023 5:30 PM EST Office Visit Allergy/Immunology [facility] [address] [place] [address] Kyler Lawrence MD [address] [place] [address] 03/26/2023 2:15 PM EST Imaging Radiology [address] [place] [address] 04/09/2023 12:00 PM EST Telemedicine Pulmonary Medicine, [place] [address] [place] [address] Kevin Bell MD [address] [place] [address] Cart, Telemed Pulm Gw 132 [facility] [place] [address] 04/09/2023 1:00 PM EST [facility] [address] [place] [address] Kasi [facility] [place] [address] [place] [address] 04/22/2023 2:15 PM EST [facility] [address] [place] [address] Edvin Beasley MD [address] [place] [address] Nurse Kasi Urogyn [place] [address] [place] [address] Health Maintenance Due Date Last Done Comments [...] 07/18/2021 LUNG CANCER SCREENING - USE SMARTSET [id number] Completed 09/08/2022, 08/26/2021, 01/23/2017 COVID-19 Vaccine Completed [...] filedocumented as of this encounter Care Teams Superintendent Custodian Janitor Relationship Specialty Start Date End Date Sabine Mosley DO [address] [place] [address] PCP - General Family Medicine 08/20/10 documented as of this encounter
--- OUTSIDE RECORDS SUMMARY | 2023-03-07 08:26 | External Medical Summary | Summary of Care ---
Author Name Unknown Organization [facility] Address [address] [place] [address] Phone [phone] Care Team Providers Care Ecd Name Role Phone Sabine Mosley DO Primary Care Provider [phone] Encounter Details Date Type Department Care Team (Late st Contact Info) Description 02/27/2023 Telephone [facility] [address] [place] [address] Sabine Mosley [address] [place] [address] Allergies Active Allergy Reactions Criticality Noted Date Comments Adhesive Tape 11/04/2017 sensitivity Cephalosporins Unknown 09/08/2000 Clarithromycin Rash 09/08/2000 Clavulanic Acid Unknown 02/17/2022 Clobetasol Unknown 02/17/2022 Sulfa Antibiotics High 09/08/2000 Unknown Other Reaction(s): "Sulfa Drugs = rash" Terconazole 09/09/2002 terazol - made her itchy documented as of this encounter (statuses as of 02/27/2023) Medications Medication Sig Dispensed Refills Start Date [...] BEDTIME. DIRECTED. 90 g 2 11/15/2021 Active Trelegy Ellipta 100-62.5-25 MCG/INH Aerosol Powder Breath Activated Inhale by mouth 1 Puff in the morning. 60 Blister Dosing Unit 5 01/23/2022 Active CPAP every night at bedtime. 0 [...] :COPD, group B, by GOLD 2017 classification ([facility]) Inhale 2 Puffs by mouth every [...] hemoglobin A1c goal of less than 7.0% ([facility]) Use to inject insulin four times daily E11.9 200 Each 3 08/18/2022 Active Nystatin-Triamcinol one 152001-7.1 UNIT/GM-% External Cream (Mycolog)Indication s:Melissa rash of groin APPLY TOPICALLY TO THE AFFECTED AREA TWICE DAILY FOR 14 DAYS. 30 g 1 08/27/2022 Active Nystatin 498031 UNIT/GM External Powder (Nystop)Indications :Melissa rash of [...] hemoglobin A1c goal of less than 7.0% ([facility]) TAKE 1 TABLET BY MOUTH TWICE A DAY 180 Tablet 1 10/23/2022 Active Baclofen 10 MG Oral Tablet (Lioresal)Indicatio ns:Spasm of lumbar paraspinous muscle,Chronic left-sided low back pain with left-sided sciatica TAKE 1 TABLET BY MOUTH IN THE MORNING AND BEFORE BEDTIME 20 Tablet 0 10/27/2022 Active Ipratropium [place] 0.03 % Nasal Solution (Atrovent) Administer 2 [...] hemoglobin A1c goal of less than 7.0% ([facility]) INJECT 65 UNITS TWICE DAILY DIRECTED. 60 mL 1 01/13/2023 Active Eliquis 5 MG Oral Tablet (Apixaban)Indicatio ns:PAF (paroxysmal atrial fibrillation) ([facility]),Cerebrovascul ar disease, arteriosclerotic, post-stroke TAKE 1 [...] for Nausea. 30 Tablet 0 02/17/2023 Active documented as of this encounter (statuses as of 02/27/2023) Active Problems Problem Noted Date Diagnosed Date [...] as of this encounter (statuses as of 02/27/2023) Resolved Problems Problem Noted Date Diagnosed Date Resolved Date Dilated aortic root 03/04/2021 02/18/20 Dyslipidemia 01/31/2021 05/06/2022 Body mass index (BMI) [...] colitis 12/09/2012 017 Genetic Sleep Disorder [facility]ea [facility] Other*[id number] 03/02/2012 11/01/2015 Tobacco use disorder 11/20/2011 014 [...] as of this encounter (statuses as of 02/27/2023) Immunizations Name Administration Dates Next Due COVID-19 mRNA, LNP-s, No Pre serve, 2-Dose Series (Moderna) 01/14/2021,06/06/2020,05/09/2020 COVID-19, MRNA-LNP, 23-24, P F, 30 MCG/0.3 mL, 12 YRS AND ABOVE, IM ([facility]) 12/30/2022 COVID-19, mRNA, LNP-s, PF, B [...] encounter Miscellaneous Notes * Telephone Encounter - Lauren Arnold PHARM Tech - 02/27/2023 11:03 AM EST Patient calling to request appt. Transferred pt to scheduling for further assistance. Thanks, Lauren Arnold Journalism Professor [facility] ([facility]) 02/27/2023,11:03 AM documented in this encounter Plan of Treatment Upcoming Encounters Date Type Department Care Team (Late st Contact Info) Description 03/03/2023 10:25 AM EST Office Visit Urogynecology Mitzi Villaseñor [address] [place] [address] Edvin Beasley MD [address] [place] [address] Nurse Sadaf Villaseñor 132 [facility] [place] [address] 03/16/2023 2:00 PM EST Office Visit Cardiology, [facility] [address] [facility] [place] [address] Shahrzad Eric PA-C 132 [facility] [place] [address] 03/16/2023 5:30 PM EST Office Visit Allergy[facility]Immunology [facility] [address] [place] [address] Kyler Lawrence MD [address] [facility] [address] [place] [address] 03/26/2023 2:15 PM EST Imaging Radiology [facility] [address] [facility] [place] [address] 04/09/2023 12:00 PM EST Telemedicine Pulmonary Medicine, [place] [address] [place] [address] Kevin Bell MD [address] [place], [place] [id number] Cart, Telemed Pulm 132 [facility] [place] [address] 04/09/2023 1:00 PM EST Office Visit Pharmacy, [facility] [address] [facility] [place] [address] K[facility] 132 [facility] [place] [address] Health Maintenance Due Date Last Done Comments Fecal Occult Blood Test 1997 Sigmoidoscopy 1997 Hepatitis B (1 of 3 - Risk 3-dose series) 2012 Colonoscopy 01/03/2020 01/02/2010 DTaP,Tdap,and Td Vaccines (3 - Td or Tdap) 11/18/2020 11/18/2010, 11/18/2010 Depression Screening 01/19/2021 01/20/2020 HbA1c 03/24/2023 09/22/2022, 05/07, 08/22/2021, Additional history exists Mammogram 03/24/2023 03/24/2022, 1111/2020, 02/06/2020, Additional history exists B-12 05/19/2023 05/19/2022, [...] 07/18/2021 LUNG CANCER SCREENING - USE SMARTSET 61841 Completed 09/08/2022, 08/26/2021, 01/23/2017 COVID-19 Vaccine Completed [...] filedocumented as of this encounter Care Teams Ecd Relationship Specialty Start Date End Date Sabine Mosley DO [address] [place] [address] PCP - General Family Medicine 08/20/10 documented as of this encounter
--- OUTSIDE RECORDS SUMMARY | 2023-03-07 08:26 | External Medical Summary | Summary of Care ---
Author Name Unknown Organization [facility] Address [address] [place] [address] Phone [phone] Care Team Providers Care Saxophone Player Name Role Phone Sabine Mosley DO Primary Care Provider [phone] Encounter Details Date Type Department Care Team (Late st Contact Info) Description 03/06/2023 Telephone [facility] [address] [place] [address] Sabine Mosley [address] [place] [address] Allergies Active Allergy Reactions Criticality [...] group B, by GOLD 2017 classification ([facility]) Inhale 2 Puffs by mouth every 6 [...] A1c goal of less than 7.0% ([facility]) Use to inject insulin four times daily E11.9 200 Each 3 08/18/2022 Active Nystatin-Triamcinol one 123782-2.1 UNIT/GM-% External Cream (Mycolog)Indication s:Melissa rash of groin APPLY TOPICALLY TO THE AFFECTED AREA TWICE DAILY FOR 14 DAYS. 30 g 1 08/27/2022 Active Nystatin 769281 UNIT/GM External Powder (Nystop)Indications :Melissa rash of [...] A1c goal of less than 7.0% ([facility]) TAKE 1 TABLET BY MOUTH TWICE A DAY 180 Tablet 1 10/23/2022 Active Baclofen 10 MG Oral Tablet (Lioresal)Indicatio ns:Spasm of lumbar paraspinous muscle,Chronic left-sided low back pain with left-sided sciatica TAKE 1 TABLET BY MOUTH IN THE MORNING AND BEFORE BEDTIME 20 Tablet 0 10/27/2022 Active Ipratropium [place] 0.03 % Nasal Solution (Atrovent) Administer 2 [...] A1c goal of less than 7.0% ([facility]) INJECT 65 UNITS TWICE DAILY DIRECTED. 60 mL 1 01/13/2023 Active Eliquis 5 MG Oral Tablet (Apixaban)Indicatio ns:PAF (paroxysmal atrial fibrillation) ([facility]),Cerebrovascul ar disease, arteriosclerotic, post-stroke TAKE 1 TABLET [...] group B, by GOLD 2017 classification ([facility]) Inhale 1 Puff by mouth in the [...] colitis 12/09/2012 017 Genetic Sleep Disorder [facility] Other*[id number] 03/02/2012 11/01/2015 Tobacco use disorder 11/20/2011 014 [...] MCG/0.3 mL, 12 YRS AND ABOVE, IM [facility] 12/30/2022 COVID-19, mRNA, LNP-s, PF, B ooster, [...] encounter Miscellaneous Notes * Telephone Encounter - Cheyenne Galo CCMA [...] 03/06/2023 12:30 PM EST Scheduled Telephone Ancillary Department[address] [address] Shiela, Nurse Follow Up Phone Call Schedule [address] [place] [address] Arrived 03/16/2023 2:00 PM EST Office Visit Cardiology, [facility] 132 [facility] [place] [address] Shahrzad Eric PA-C 132 [facility] [place] [address] 03/16/2023 5:30 PM EST Office Visit All[facility]Immunology [facility] [address] [place] [address] Kyler Lawrence MD [address] [place] [address] 03/26/2023 2:15 PM EST Imaging Radiology [facility] 1st [facility] 132 [facility] [place] [address] 04/09/2023 12:00 PM EST Telemedicine Pulmonary Medicine, [place] [address] [place] [address] Kevin Bell MD [address] [place] [address] Cart, Telemed Pulm 132 [facility] [place] [address] 04/09/2023 1:00 PM EST Office Visit Pharmacy, [facility] 132 [facility] [place] [address] [facility] 132 [facility] [place] [address] 04/22/2023 2:15 PM EST Office Visit Urogynecology [facility] 132 [facility] [place] [address] Edvin Beasley MD [address] [place] [address] Nurse Sadaf Villaseñor [address] [place] [address] Health Maintenance Due Date Last Done Comments [...] 07/18/2021 LUNG CANCER SCREENING - USE SMARTSET 00399 Completed 09/08/2022, 08/26/2021, 01/23/2017 COVID-19 Vaccine Completed [...] filedocumented as of this encounter Care Teams Saxophone Player Relationship Specialty Start Date End Date Sabine Mosley DO [address] [place] [address] PCP - General Family Medicine 08/20/10 documented as of this encounter
--- OUTSIDE RECORDS SUMMARY | 2023-03-07 08:26 | External Medical Summary | Summary of Care ---
Author Name Unknown Organization [facility] Address [address] [place] [address] Phone [phone] Care Team Providers Care Sewing Machine Operator Semiautomatic Name Role Phone KarelySabine gutiérrez Primary Care Provider [phone] Reason for Visit * Reason Comments Appointment Encounter Details Date Type Department Care Team (Late st Contact Info) Description 02/24/2023 6:10 PM [facility] Pharm[facility] Pharmacy, [facility] [place] [address] [facility] [address] [place] [address] Type 2 diabetes mellitus with hemoglobin A1c goal of less than 7.0% ([facility])* Allergies Active Allergy Reactions Criticality Noted Date Comments Adhesive Tape 11/04/2017 sensitivity Cephalosporins Unknown 09/08/2000 Clarithromycin Rash 09/08/2000 Clavulanic Acid Unknown 02/17/2022 Clobetasol Unknown 02/17/2022 Sulfa Antibiotics High 09/08/2000 Unknown Other Reaction(s): "Sulfa Drugs = rash" Terconazole 09/09/2002 terazol - made her itchy documented as of this encounter (statuses as of 02/24/2023) Medications Medication Sig Dispensed Refills Start Date [...] B, by GOLD 2017 classification ([facility]) Inhale 2 Puffs by mouth every 6 [...] goal of less than 7.0% ([facility]) Use to inject insulin four times daily E11.9 200 Each 3 08/18/2022 Active Nystatin-Triamcinol one 253391-7.1 UNIT/GM-% External Cream (Mycolog)Indication s:Melissa rash of groin APPLY TOPICALLY TO THE AFFECTED AREA TWICE DAILY FOR 14 DAYS. 30 g 1 08/27/2022 Active Nystatin 395719 UNIT/GM External Powder (Nystop)Indications :Melissa rash of [...] goal of less than 7.0% ([facility]) TAKE 1 TABLET BY MOUTH TWICE A DAY 180 Tablet 1 10/23/2022 Active Baclofen 10 MG Oral Tablet (Lioresal)Indicatio ns:Spasm of lumbar paraspinous muscle,Chronic left-sided low back pain with left-sided sciatica TAKE 1 TABLET BY MOUTH IN THE MORNING AND BEFORE BEDTIME 20 Tablet 0 10/27/2022 Active Ipratropium [place] 0.03 % Nasal Solution (Atrovent) Administer 2 [...] goal of less than 7.0% ([facility]) INJECT 65 UNITS TWICE DAILY DIRECTED. 60 mL 1 01/13/2023 Active Eliquis 5 MG Oral Tablet (Apixaban)Indicatio ns:PAF (paroxysmal atrial fibrillation) ([facility]),Cerebrovascul ar disease, arteriosclerotic, post-stroke TAKE 1 TABLET [...] as of this encounter (statuses as of 02/24/2023) Active Problems Problem Noted Date Diagnosed Date [...] as of this encounter (statuses as of 02/24/2023) Resolved Problems Problem Noted Date Diagnosed Date [...] colitis 12/09/2012 017 Genetic Sleep Disorder [facility] Other*[id number] 03/02/2012 11/01/2015 Tobacco use disorder 11/20/2011 014 [...] as of this encounter (statuses as of 02/24/2023) Immunizations Name Administration Dates Next Due COVID-19 mRNA, LNP-s, No Pre serve, 2-Dose Series (Moderna) 01/14/2021,06/06/2020,05/09/2020 COVID-19, MRNA-LNP, 23-24, P F, 30 MCG/0.3 mL, 12 YRS AND ABOVE, IM [facility]) 12/30/2022 COVID-19, mRNA, LNP-s, PF, B ooster, [...] on file documented as of this encounter Progress Notes * Kristy Cardona PHARM Tech - 02/24/2023 9:32 AM EST Patient Phone Numbers Spoke with patient to schedule MTDM appointment for DM management. Appointment scheduled as noted below. 04/09/2023 Thank you, Kristy Cardona [employer] [facility] ([facility]) (Formerly Telepharmacy) 02/24/2023, 9:49 AM documented in this encounter Plan of Treatment Upcoming Encounters Date Type Department Care Team (Late st Contact Info) Description 03/03/2023 10:25 AM EST Office Visit Urogynecology [address] [place] [address] Edvin Beasley MD [address] [place] [address] Nurse Sadaf Villaseñor [address] [place] [address] 03/16/2023 2:00 PM EST Office Visit Cardiology, [facility] 132 [facility] [place] [address] Shahrzad Eric PA-C 132 [facility] [place] [address] 03/16/2023 5:30 PM EST Office Visit Allergy/Immunology [facility] 200 [facility] [place] [address] Kyler Lawrence MD 200 [place] [address] 03/26/2023 2:15 PM EST Imaging Radiology [facility] 1st [facility] 132 [facility] [place] [address] 04/09/2023 1:00 PM EST Office Visit Pharmacy, [facility] 132 [facility] [place] [address] [facility] 132 [facility] [place] [address] Health Maintenance Due Date Last Done Comments Fecal Occult Blood Test 1997 Sigmoidoscopy 1997 Hepatitis B (1 of 3 - Risk 3-dose series) 2012 Colonoscopy 01/03/2020 01/02/2010 DTaP,Tdap,and Td Vaccines (3 - Td or Tdap) 11/18/2020 11/18/2010, 11/18/2010 Depression Screening 01/19/2021 01/20/2020 HbA1c 03/24/2023 09/22/2022, 05/07, 08/22/2021, Additional history exists Mammogram 03/24/2023 03/24/2022, 0 11/2020, 02/06/2020, Additional history exists B-12 05/19/2023 [...] 07/18/2021 LUNG CANCER SCREENING - USE SMARTSET [id number] Completed 09/08/2022, 08/26/2021, 01/23/2017 COVID-19 Vaccine Completed [...] as of this encounter Visit Diagnoses Diagnosis Type 2 diabetes mellitus with hemoglobin A1c goal of less than 7.0% (HCC)- Primary documented in this encounter Care Teams Sewing Machine Operator Semiautomatic Relationship Specialty Start Date End Date Sabine Mosley DO [address] [place] [facility] [place] [address] PCP - General Family Medicine 08/20/10 documented as of this encounter
--- OUTSIDE RECORDS SUMMARY | 2023-03-07 08:26 | External Medical Summary ---
Author Name UNSPECIFIED Address Unknown Organization [facility] History of Encounters Reason for Assessment: Start of care - f urther visits planned Inpatient discharge facility: Past 14 Da ys: Discharged From Short Stay Acute Hospital Inpatient discharge facility: Past 14 Da ys: Discharged from Retirement Facility Most Recent Inpatient Discharge Date: Functional Assessment Patient Living Situation: Patient lives with other person(s) in the home: Around the clock When Dyspneic: With moderate exerti on (e.g., while dressing, using commode or bedpan, walking distances less than 20 feet) Urinary Incontinence or Urin bernice Catheter Present: Patient is incontinent Bowel Incontinence Frequency: Very rarel y or never has bowel incontinence Cognitive Functioning: Requires assistan ce/direction in specific situations (e.g., all tasks involving shifting of attention) or consistently requires low stimulus environmnt due to distractibility. When Confused (Reported or Observed): In new or complex situations only When Anxious (Reported or Observed): Les s often than daily Cognitive and Behavioral and Psychiatric Symptoms: Memory deficit: failure to recognize familiar persons/places, inability to recall events of past 24 hours, significant memory loss so that supervision is required Frequency of Behavior Problems: Several times a week Current Ability: Bathing: able to partic ipate in bathing self in shower or tub, but requires presence of another person throughout the bath for assistance or supervision. Current Ability: Ambulation: Able to wal k only with the supervision or assistance of another person at all times. Current: Management Of Oral Medications: Able to take medication(s) at the correct times if: (a) individual dosages are prepared in advance by another person; OR (b) another person develops a drug diary or chart Current: Management Of Injec table Medications: Able to take injectable medication(s) at the correct times if: (a) individual syringes are prepared in advance by another person; OR (b) another person develops a drug diary or chart. Procedures Treated for Urinary Tract Infection in P ast 14 Days: Yes Problems Primary Home Care Diagnosis ICD Code: I1 1.0, Hypertensive heart disease with heart failure Home Care Diagnosis 1: ICD Code: I50.33, Acute on chronic diastolic (congestive) heart failure Home Care Diagnosis 1: Severity Ratin Home Care Diagnosis 2: ICD Code: E11.42, Type 2 diabetes mellitus with diabetic polyneuropathy Home Care Diagnosis 2: Severity Ratin Home Care Diagnosis 3: ICD Code: I48.0, Paroxysmal atrial fibrillation Home Care Diagnosis 3: Severity Ratin Home Care Diagnosis 4: ICD Code: J44.9, Chronic obstructive pulmonary disease, unspecified Home Care Diagnosis 4: Severity Ratin Home Care Diagnosis 5: ICD Code: N13.2, Hydronephrosis with renal and ureteral calculous obstruction Home Care Diagnosis 5: Severity Ratin
[2023-03-07] MEDS ORDERED: ASPIRIN CHEW 324 MG PO STA (09:12)
--- NOTE | 2023-03-07 09:35 | XRay Report ---
XR chest 1V portable CLINICAL HISTORY: Chest pain, nonspecific COMPARISON STUDY: Chest radiograph and chest CT January 23, 2023. FINDINGS: No pneumothorax or pleural effusion is present. Moderate cardiomegaly is again noted. There is no evidence for pulmonary edema. There is no consolidation to suggest pneumonia. IMPRESSION: No acute cardiopulmonary findings. Stable cardiomegaly. ACT 112: Negative or not required by law. Electronically signed by: Hola Méndez M.D. 03/07/2023 9:32 AM
[2023-03-07 10:10] LABS: Base Excess VBG -0.6 mEq/L; HCO3 VBG 23 mmol/L; Oxygen Saturation VBG 92.6 %; PCO2 VBG 35 mmHg (38-50); PO2 VBG 64 mmHg; pH VBG 7.43 (7.36-7.41)
[2023-03-07 10:20] LABS: Basophils # (auto) 0.06 K/uL (0.00-0.20); Basophils % (auto) 0.7 %; Eosinophils # (auto) 0.18 K/uL (0.00-0.50); Eosinophils % (auto) 2.1 %; Hemoglobin 10.7 g/dl (12.0-16.0); Immature Granulocytes # (auto) 0.03 K/uL (0.01-0.20); Immature Granulocytes % (auto) 0.4 %; Lymphocytes % (auto) 32.1 %; Mean Corpuscular Hemoglobin 27.5 pg (25.0-34.0); Mean Corpuscular Hgb Conc 31.5 g/dL (32.0-36.0); Mean Corpuscular Volume 87.4 fL (80.0-100.0); Mean Platelet Volume 11.3 fL (9.4-12.4); Monocytes % (auto) 10.7 %; Neutrophils # (auto) 4.55 K/uL (1.40-6.50); Platelet Count 198 K/uL (130-400); RDW Coefficient of Variation 16.6 % (11.5-14.5); RDW Standard Deviation 52.5 fL (36.4-46.3); Red Blood Count 3.89 M/uL (4.20-5.40); White Blood Count 8.42 K/ul (4.8-10.8)
[2023-03-07 10:24] LABS: Alanine Aminotransferase 22 U/L (7-52); Albumin Globulin Ratio 1.3 (0.9-2); Albumin Level 3.4 gm/dl (3.4-5.0); Alkaline Phosphatase 64 U/L (34-104); Anion Gap 14 (3-11); Aspartate Aminotransferase 22 U/L (13-39); BUN Creatinine Ratio 16.4 (10-20); Bilirubin,Total 0.9 mg/dl (0.2-1.0); Blood Urea Nitrogen 23 mg/dl (6-23); Calcium 7.9 mg/dl (8.6-10.3); Carbon Dioxide 23 mmol/L (21-32); Chloride 105 mmol/L (98-107); Globulin 2.7 gm/dl (2.5-4.0); Glucose 198 mg/dl (70-99(Fasting)); Potassium 3.3 mmol/L (3.5-5.1); Sodium 142 mmol/L (136-145); Total Protein 6.1 gm/dl (6.0-8.3)
[2023-03-07 10:30] LABS: Troponin I High Sensitivity 17.7 pg/ml (0-14)
[2023-03-07 10:42] LABS: INR 1.2 (0.9-1.1); Partial Thromboplastin Time 29.3 Seconds (21.0-31.0); Prothrombin Time 12.7 Seconds (9.0-12.0)
--- NOTE | 2023-03-07 11:02 | Emergency Department Note ---
History of Present Illness General Chief Complaint: Shortness of Breath/Dyspnea Stated Complaint: SOB, REQUESTING XRAY Time Seen by Provider: 03/07/23 08:55 History of Present Illness Provider Complaint: shortness of breath Onset (ago): week(s) (2) Consistency/Duration: + progressively worsening Maximum Pain Intensity: 0 Relieved By: + rest Exacerbated By: + lying flat and + exertion Known history of: COPD and congestive heart failure Associated symptoms: + cough and + orthopnea; no chest pain, no pain with inspiration, no fever, no wheezing, no sputum production, no polyuria, no hemoptysis, no nausea/vomiting, no syncope or no abdominal pain Treatment prior to arrival: none Home Medications Medication Instructions Recorded Confirmed Type albuterol sulfate 90 mcg/actuation 2 inh inhalation Q4H PRN Shortness 01/23/23 03/05/23 History aerosol inhaler Of Breath Or Wheezing apixaban 5 mg tablet (Eliquis) 5 mg PO BID 01/23/23 03/05/23 History atorvastatin 40 mg tablet 40 mg PO QPM 01/23/23 03/05/23 History baclofen 10 mg tablet 10 mg PO BID PRN Muscle Pain 01/23/23 03/05/23 History famotidine 20 mg tablet 20 mg PO QPM 01/23/23 03/05/23 History hydrocodone 5 mg-acetaminophen 325 1 tab PO Q6 PRN Pain 01/23/23 03/05/23 History mg tablet hydrocortisone acetate 25 mg 25 mg [place] BID PRN Hemorrhoids 01/23/23 03/05/23 History rectal suppository insulin aspart U-100 100 unit/mL 20 - 25 unit subcut BIDM 01/23/23 03/05/23 History (3 mL) subcutaneous pen (Novolog FlexPen U-100 Insulin aspart) insulin glargine 100 unit/mL (3 65 unit subcut BID 01/23/23 03/05/23 History mL) subcutaneous pen (Basaglar KwikPen U-100 Insulin) ipratropium bromide 21 mcg (0.03 2 spray intranasal AMHS 01/23/23 03/05/23 History %) nasal spray levalbuterol HCl 0.63 mg/3 mL 0.63 mg inhalation Q4 PRN Wheezing 01/23/23 03/05/23 History solution for nebulization metformin 1,000 mg tablet 1,000 mg PO BID 01/23/23 03/05/23 History montelukast 10 mg tablet 10 mg PO QPM 01/23/23 03/05/23 History nystatin 100,000 unit/gram topical 1 applic topical BID 01/23/23 03/05/23 History powder nystatin-triamcinolone 100,000 1 applic topical BID PRN .flare ups 01/23/23 03/05/23 History unit/g-0.1 % topical cream pantoprazole 40 mg tablet,delayed 40 mg PO QAM 01/23/23 03/05/23 History release tamsulosin 0.4 mg capsule 0.4 mg PO HS 01/23/23 03/05/23 History triamcinolone acetonide 0.1 % 1 applic topical BID PRN .flare ups 01/23/23 03/05/23 History topical ointment docusate sodium 100 mg capsule 100 mg PO BID PRN constipation #60 02/05/23 03/05/23 Rx (Colace) caps magnesium oxide 400 mg (241.3 mg 400 mg PO DAILY@1200 #30 tabs 02/05/23 03/05/23 Rx magnesium) tablet metoprolol succinate 100 mg 100 mg PO BID #60 tabs 02/05/23 03/05/23 Rx tablet,extended release 24 hr phenazopyridine 100 mg tablet 100 mg PO TID PRN dysuria #30 tabs 02/05/23 03/05/23 Rx (Pyridium) polyethylene glycol 3350 17 gram 17 g PO DAILY PRN constipation #30 02/05/23 03/05/23 Rx oral powder packet (Miralax) ea torsemide 10 mg tablet 20 mg (2 x 10 mg) PO QAM #30 tabs 02/05/23 03/05/23 Rx nitrofurantoin 100 mg PO BID 10 days #20 caps 03/02/23 03/05/23 Rx monohydrate/macrocrystals 100 mg capsule (Macrobid) cholecalciferol (vitamin D3) 125 125 mcg PO QAM 03/05/23 03/05/23 History mcg (5,000 unit) tablet (Vitamin D3) digoxin 250 mcg (0.25 mg) tablet 0.25 mg PO QAM 03/05/23 03/05/23 History multivitamin 1 tab PO QAM 03/05/23 03/05/23 History omega-3 fatty acids 1,000 mg PO QAM 03/05/23 03/05/23 History Allergies Allergy/AdvReac Type Severity Reaction Status Date / Time Cephalosporins Allergy Intermediate RASH Verified 03/05/23 12:05 Sulfa (Sulfonamide Allergy Intermediate "Sulfa Verified 03/05/23 12:05 Antibiotics) Drugs = rash" terconazole Allergy Intermediate ITCHING, Verified 03/05/23 12:05 BURNING clarithromycin Allergy Unknown UNKNOWN Verified 03/05/23 12:05 clavulanic acid Allergy Unknown UNKNOWN Verified 03/05/23 12:05 clobetasol Allergy Unknown Unknown Verified 03/05/23 12:05 adhesive AdvReac Mild BAND-AIDS Verified 03/05/23 12:05 = SKIN IRRITATION Past Med/Surg History Medical History History of COVID-19 02/14/2023, continues with cough and runny nose currently Morbid obesity Chronic diastolic heart failure Chronic sinusitis Wound dehiscence 2015 s/p hysterectomy Kidney stones passed on own previously and also stent placed 01/[address] [facility] Dr [place] History of bleeding ulcers GERD (gastroesophageal reflux disease) Hypertension Post traumatic stress disorder Bipolar disorder Depression Anxiety Peripheral neuropathy bilateral 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 no problems since then. History of pneumococcal septicemia treated at [facility] 2012. History of cardioversion Nephrolithiasis RBBB Diabetes mellitus, type II IDDM Paroxysmal atrial fibrillation follows with Dr. Jason Mosley HLD (hyperlipidemia) REENA (obstructive sleep apnea) cpap at night H/O: CVA (cerebrovascular accident) 2004 -- no deficits. Arthritis COPD (chronic obstructive pulmonary disease) follows with [facility] Pulmonary (Dr Kat) Surgical History S/P laparotomy to repair hysterectomy wound dehiscence. History of cataract surgery bilateral History of tonsillectomy History of colonoscopy History of esophagogastroduodenoscopy (EGD) History of bronchoscopy S/P tendon repair bicep tendon repair (left) History of open reduction and internal fixation (ORIF) procedure Left elbow with hardware Hx of nasal septoplasty H/O: hysterectomy LUCERO with BSO Family History Other Diabetes No family history of adverse response to anesthesia Social History Smoking Status: Former smoker Tobacco Type: Cigarettes Cigarettes Per Day: 40; Second Hand Exposure: No; Do You Dip or Chew Tobacco: No; Hx Alcohol Use: No Hx Substance Use: No Preferred Language: Surinamese Communication Ability: Effective Director Public Policy Required: No Beliefs That Will Affect Care: None marital status: Current Living Situation: Spouse Feels Safe at Home: Yes Assistive Devices: Cane, Walker and Wheelchair Physical Exam 2 Vital Signs: Vital Signs - 24 hr 03/07/23 08:47 03/07/23 09:23 03/07/23 09:52 Temperature 37.1 C Temperature Source Oral Pulse Rate 74 66 Pulse Rate [Apical ] Pulse Rhythm [Apic al] Pulse Strength [Ap ical] Respiratory Rate 16 Respiratory Effort / Characteristics Non-Labored Respiratory Depth Normal Respiratory Patter n Blood Pressure 121/55 L Blood Pressure [Le ft Arm] Blood Pressure Lilia n 77 Blood Pressure Lilia n [Left Arm] Pulse Oximetry 95 Oxygen Delivery Me thod Room Air Room Air Oxygen Flow Rate 94 Sepsis Recent Feve r Within 48 Hours No Sepsis New/Unexpla ined Change in Men keshav Status N/A Sepsis Action Take n by Nursing No Action Required 03/07/23 10:00 Temperature Temperature Source Pulse Rate Pulse Rate [Apical ] 73 Pulse Rhythm [Apic al] Regular Pulse Strength [Ap ical] Normal Respiratory Rate 20 Respiratory Effort / Characteristics Non-Labored Respiratory Depth Normal Respiratory Patter n Regular Blood Pressure Blood Pressure [Le ft Arm] 108/57 L Blood Pressure Lilia n Blood Pressure Lilia n [Left Arm] 74 Pulse Oximetry 95 Oxygen Delivery Me thod Room Air Oxygen Flow Rate Sepsis Recent Feve r Within 48 Hours Sepsis New/Unexpla ined Change in Men keshav Status Sepsis Action Take n by Nursing Physical Exam: Physical Exam GENERAL: oriented to person, place, and time. appears well-developed and well- nourished. HENT: Exam performed. - Head: Normocephalic and atraumatic. EYES: Conjunctivae and EOM are normal. Right eye exhibits no discharge. Left eye exhibits no discharge. No scleral icterus. NECK: Normal range of motion. Neck supple. No JVD present. CV: Normal rate, regular rhythm, normal heart sounds and intact distal pulses. 2+ pitting edema of the bilateral lower extremities. Palpable radial pulses bue. PULM/CHEST: Faint inspiratory Rales bilaterally. ABD: The abdomen is soft. There is no tenderness. NEURO: Motor and sensation grossly intact. SKIN: Skin is warm and dry. He is not diaphoretic. PSYCH: normal mood and affect. Behavior is normal. Judgment and thought content normal. Course Course 08: The patient was evaluated in room B11. A complete history and physical exam was performed Cardiac monitoring: An order was placed for continuous cardiac monitoring. The monitor shows a rate of 70 with sinus rhythm interpreted by az 1121: Vital signs stable. Labs show an elevated high-sensitivity troponin. Chest x-ray shows cardiomegaly but no cephalization BNP is not elevated. [facility] given her dyspnea and elevated troponin. Discussed case with Dr. Martinez Administered Medications Discontinued Medications Aspirin (Aspirin Chew 324 Mg) 324 mg PO NOW STA Stop: 03/07/23 09:13 Last Admin: 03/07/23 10:31 Dose: Not Given Documented By: JENN Medical Decision Making Laboratory Data Attestation: I reviewed the patient's lab results. 03/07/23 09:22 03/07/23 09:37 Lab Results 03/07/23 03/07/23 03/07/23 Range/Units 09:22 09:35 09:37 WBC 8.42 (4.8-10.8) K/ul RBC 3.89 L (4.20-5.40) M/uL Hgb 10.7 L (12.0-16.0) g/dl Hct 34.0 L (37.0-47.0) % MCV 87.4 (80.0-100.0) fL MCH 27.5 (25.0-34.0) pg MCHC 31.5 L (32.0-36.0) g/dL RDW Std Deviation 52.5 H (36.4-46.3) fL RDW Coeff of Juan [place] 16.6 H (11.5-14.5) % Plt Count 198 (130-400) K/uL MPV 11.3 (9.4-12.4) fL Immature Gran % (Auto) 0.4 % Neut % (Auto) 54.0 % Lymph % (Auto) 32.1 % [place] % (Auto) 10.7 % Eos % (Auto) 2.1 % Baso % (Auto) 0.7 % Neut # (Auto) 4.55 (1.40-6.50) K/uL Lymph # (Auto) 2.70 (1.20-3.40) K/uL [place] # (Auto) 0.90 H (0.11-0.59) K/uL Eos # (Auto) 0.18 (0.00-0.50) K/uL Baso # (Auto) 0.06 (0.00-0.20) K/uL Immature Gran # (Auto) 0.03 (0.01-0.20) K/uL PT 12.7 H (9.0-12.0) Seconds INR 1.2 H (0.9-1.1) APTT 29.3 (21.0-31.0) Seconds PTT Ratio 1.0 VBG pH 7.43 H (7.36-7.41) VBG pCO2 35 L (38-50) mmHg VBG pO2 64 mmHg VBG HCO3 23 mmol/L VBG O2 Saturation 92.6 % VBG Base Excess -0.6 mEq/L Sodium 142 (136-145) mmol/L Potassium 3.3 L (3.5-5.1) mmol/L Chloride 105 (98-107) mmol/L Carbon Dioxide 23 (21-32) mmol/L Anion Gap 14 H (3-11) BUN 23 (6-23) mg/dl Creatinine 1.40 H (0.6-1.2) mg/dl Est Cr Clr Drug Dosing Not Reportable Est GFR ( Amer) 44.0 ml/min Est GFR (Non-Af Amer) 38.0 ml/min BUN/Creatinine Ratio 16.4 (10-20) Glucose 198 H (70-99(Fasting)) mg/dl Calcium 7.9 L (8.6-10.3) mg/dl Total Bilirubin 0.9 (0.2-1.0) mg/dl AST 22 (13-39) U/L ALT 22 (7-52) U/L Alkaline Phosphatase 64 (34-104) U/L Troponin I High Sens 17.7 H (0-14) pg/ml B-Natriuretic Peptide 96 (0-100) pg/ml Total Protein 6.1 (6.0-8.3) gm/dl Albumin 3.4 (3.4-5.0) gm/dl Globulin 2.7 (2.5-4.0) gm/dl Albumin/Globulin Ratio 1.3 (0.9-2) SARS-CoV-2, RNA, NAAT POSITIVE A* (NEGATIVE) Imaging Data Attestation: I personally reviewed and interpreted this imaging study as follows: My Impression: Chest x-ray negative. Airway clear. No pneumothorax. No consolidation. No cardiomegaly or cephalization.. No free air under the diaphragm. No fractures of the skeletal structures. Radiologist's Impression: Chest X-Ray 03/07/23 08:51 XR chest 1V portable CLINICAL HISTORY: Chest pain, nonspecific COMPARISON STUDY: Chest radiograph and chest CT January 23, 2023. FINDINGS: No pneumothorax or pleural effusion is present. Moderate cardiomegaly is again noted. There is no evidence for pulmonary edema. There is no consolidation to suggest pneumonia. IMPRESSION: No acute cardiopulmonary findings. Stable cardiomegaly. ACT 112: Negative or not required by law. Electronically signed by: Hola Méndez M.D. 03/07/2023 9:32 AM ECG Data Attestation: I personally reviewed and interpreted this ECG as follows: Interpretation: Atrial fibrillation with a rate of 76. QRS 122 QTc 445. Right bundle branch block present. No ST elevation or ST depression. No significant change from the EKG done in January 2023. [facility] Narrative 0855: The patient was evaluated in room B11. A complete history and physical exam was performed Cardiac monitoring: An order was placed for continuous cardiac monitoring. The monitor shows a rate of 70 with sinus rhythm interpreted by me 1121: Vital signs stable. Labs show an elevated high-sensitivity troponin. Chest x-ray shows cardiomegaly but no cephalization BNP is not elevated. [facility] for cardiac workup given her dyspnea and elevated troponin. Discussed case with Dr. Martinez Impression & Plan REID (dyspnea on exertion), Elevated troponin Discharge Plan Visit Data Chief Complaint: Shortness of Breath/Dyspnea Stated Complaint: SOB, REQUESTING XRAY ED Provider: Tima Da Silva Discharge Problem: REID (dyspnea on exertion), Elevated troponin Patient Disposition: Admitted As Inpatient Forms Stand Alone Forms: My [facility] Prescriptions Prescriptions: No Action nitrofurantoin monohyd/m-cryst [Macrobid] 100 mg capsule 100 mg PO BID 10 Days Qty: 20 0RF Rx Instructions: must administer with a meal/food levalbuterol HCl 0.63 mg/3 mL Solution For Nebulization 0.63 mg INHALATION Q4 PRN (Reason: Wheezing) hydrocodone-acetaminophen 5-325 mg tablet 1 tab PO Q6 PRN (Reason: Pain) hydrocortisone acetate 25 mg suppository 25 mg [place] BID PRN (Reason: Hemorrhoids) famotidine 20 mg tablet 20 mg PO QPM tamsulosin 0.4 mg capsule 0.4 mg PO HS baclofen 10 mg Tablet 10 mg PO BID PRN (Reason: Muscle Pain) pantoprazole 40 mg tablet,delayed release (DR/EC) 40 mg PO QAM metformin 1,000 mg tablet 1,000 mg PO BID triamcinolone acetonide 0.1 % Ointment 1 applic TOPICAL BID PRN (Reason: .flare ups) nystatin-triamcinolone 100,000-0.1 unit/g-% cream 1 applic TOPICAL BID PRN (Reason: .flare ups) montelukast 10 mg Tablet 10 mg PO QPM nystatin 100,000 unit/gram powder 1 applic TOPICAL BID Rx Instructions: Apply 0.5 g to groin ipratropium bromide 21 mcg (0.03 %) spray,non-aerosol 2 spray INTRANASAL AMHS insulin aspart U-100 [Novolog FlexPen U-100 Insulin] 100 unit/mL (3 mL) insulin pen 20 - 25 unit SUBCUT BIDM insulin glargine [Basaglar KwikPen U-100 Insulin] 100 unit/mL (3 mL) insulin pen 65 unit SUBCUT BID Eliquis 5 mg Tablet 5 mg PO BID atorvastatin 40 mg tablet 40 mg PO QPM albuterol sulfate 90 mcg/actuation HFA aerosol inhaler 2 inh INHALATION Q4H PRN (Reason: Shortness Of Breath Or Wheezing) metoprolol succinate 100 mg tablet extended release 24 hr 100 mg PO BID Qty: 60 0RF polyethylene glycol 3350 [Miralax] 17 gram Powder In Packet 17 g PO DAILY PRN (Reason: constipation) Qty: 30 0RF torsemide 10 mg Tablet 20 mg PO QAM Qty: 30 0RF magnesium oxide 400 mg (241.3 mg magnesium) Tablet 400 mg PO DAILY@1200 Qty: 30 0RF phenazopyridine [Pyridium] 100 mg Tablet 100 mg PO TID PRN (Reason: dysuria) Qty: 30 0RF docusate sodium [Colace] 100 mg capsule 100 mg PO BID PRN (Reason: constipation) Qty: 60 0RF digoxin 250 mcg (0.25 mg) tablet 0.25 mg PO QAM multivitamin Tablet 1 tab PO QAM cholecalciferol (vitamin D3) [Vitamin D3] 125 mcg (5,000 unit) Tablet 125 mcg PO QAM [place]-3 Capsule 1,000 mg PO QAM Referrals Referrals: Sabine Mosley DO [Primary Care Provider] -
--- NOTE | 2023-03-07 12:05 | Electrocardiogram Report ---
Test Reason : Blood Pressure : / mmHG Vent. Rate : 076 BPM Atrial Rate : 000 BPM P-R Int : 000 ms QRS Dur : 122 ms QT Int : 396 ms P-R-T Axes : 000 012 244 degrees QTc Int : 445 ms Atrial fibrillation Right bundle branch block Marked ST abnormality, possible lateral subendocardial injury Abnormal ECG When compared with ECG of 23-JAN-2023 16:51, ST abnormality now present Confirmed by Tor Zurita ([id number]) on 03/07/2023 12:04:47 PM Referred By: Confirmed By:Tor Zurita
--- NOTE | 2023-03-07 12:37 | History & Physical Report ---
Date of Service March 07, 2023 Assessment & Plan (1) COVID-19: (2) Elevated troponin: (3) Chronic heart failure with preserved ejection fraction: (4) Permanent atrial fibrillation: (5) Diabetes mellitus, type II: (6) HLD (hyperlipidemia): (7) Morbid obesity: (8) REENA (obstructive sleep apnea): (9) Bipolar disorder: (10) Hypokalemia: Plan: COVID-19 Shortness of breath Elevated troponin Hypokalemia - COVID-19 positive, known outpatient test positive since 02/20/2023 - Procalcitonin and CRP pending - CXR reviewed: Without any acute findings, pt is anticoagulated already so low suspicion for PE. - O2 sats 95% on room a, reports being low at 89% with exertion at home - WBC 8.42 -Patient does not qualify for remdesivir with having sx since 02/20 -Start decadron 6 mg IV daily - Trend troponin, initially elevated slightly at 17, no chest pain, EKG unchanged -K 3.2 on admission, replace with PO and IV, trend with am labs A-fib HTN CHF, chronic diastolic -Continue home meds- pt did not take this morning, will order - Continue eliquis anticoagulation Diarrhea -Check Cdiff, already on probiotic, taking macrobid for UTI/obstructive stone chronically since last admission UTI/obstructed uropathy - Cr/BUN stable, on macrobid since 02/06 discharge, anticipated to have urology f/u in 4 days, on 03/11, as outpatient to have removed - may need rescheduled based on this admission DM type II -Last A1c 9.3 in September on outpatient epic review, check with am labs - Pt is no longer on ozempic, may continue lantus and ISS while here, Holding metformin REENA on CPAP -Continue at bedtime Obesity -Diet and exercise modification, lifestyle changes encouraged at bedside Bipolar type II -Not on mood stabilizing medications DVT PPx- teds, scds Lines: 2 PIV FEN/GI: Heart healthy/DM diet CODE: Full Dispo: From home, likely to remain in the hospital x 1-2 days History of Present Illness Chief Complaint: Shortness of breath Primary Care Provider: Sabine Mosley, DO This is a 72-year-old female with PMHx of COPD, HTN, HLD, chronic diastolic CHF, DM type II, morbid obesity, bipolar type II, history of CVA and REENA on CPAP who presents to the hospital with acute worsening shortness of breath.The patient tested positive for COVID +19 on 02/20. She has had difficulty with shortness of breath since that point in time also with complaints of feeling weak, lightheaded and fatigued. She was previously admitted here for UTI/obstructing uropathy on at the hospital on 01/23 and was discharged to [facility] on 02/05, stayed there until 02/16, and was discharged home, then tested positive for covid at home on 02/20. She lives in an apartment and reports that she can walk about 10 steps before feeling winded. She is using a pulse ox to test, and is at the lowest at 89% on exertion, and then is at 95% at rest after a few minutes sitting down. Pt does not use supplemental O2 at baseline, but wears Cpap HS routinely. She has residual symptoms including cough, with white mucous, no hemoptysis. Denies fever, chills, but has been sweaty with exertion, denies cp/heaviness. Pt has had intermittent nausea on and off, and is c/o diarrhea and constipation which has been going on since her last hospitalization, it is no worse. Her last BM was today, which was yellow and has bowel cramping. She has hx of having c diff years ago in 2012, and was treated with IV antibiotics during that last hospitalization for UTI and obstructing stone, for which she is still on Macrobid currently. She is scheduled to have the surgery on on the 03/11/[address] Ventura for lithotripsy. Pt lives at home with her . Pt missed all her morning medications today. Allergies Allergy/AdvReac Type Severity Reaction Status Date / Time Cephalosporins Allergy Intermediate RASH Verified 03/07/23 12:54 Sulfa (Sulfonamide Allergy Intermediate "Sulfa Verified 03/07/23 12:54 Antibiotics) Drugs = rash" terconazole Allergy Intermediate ITCHING, Verified 03/07/23 12:54 BURNING clarithromycin Allergy Unknown UNKNOWN Verified 03/07/23 12:54 clavulanic acid Allergy Unknown UNKNOWN Verified 03/07/23 12:54 clobetasol Allergy Unknown Unknown Verified 03/07/23 12:54 adhesive AdvReac Mild BAND-AIDS Verified 03/07/23 12:54 = SKIN IRRITATION Home Medications Medication Instructions Recorded Confirmed Type albuterol sulfate 90 mcg/actuation 2 inh inhalation Q4H PRN Shortness 01/23/23 03/07/23 History aerosol inhaler Of Breath Or Wheezing apixaban 5 mg tablet (Eliquis) 5 mg PO BID 01/23/23 03/07/23 History atorvastatin 40 mg tablet 40 mg PO QPM 01/23/23 03/07/23 History baclofen 10 mg tablet 10 mg PO BID PRN Muscle Pain 01/23/23 03/07/23 History famotidine 20 mg tablet 20 mg PO QPM 01/23/23 03/07/23 History hydrocodone 5 mg-acetaminophen 325 1 tab PO Q6 PRN Pain 01/23/23 03/07/23 History mg tablet hydrocortisone acetate 25 mg 25 mg VA BID PRN Hemorrhoids 01/23/23 03/07/23 History rectal suppository insulin aspart U-100 100 unit/mL 20 - 25 unit subcut BIDM 01/23/23 03/07/23 History (3 mL) subcutaneous pen (Novolog FlexPen U-100 Insulin aspart) insulin glargine 100 unit/mL (3 65 unit subcut BID 01/23/23 03/07/23 History mL) subcutaneous pen (Basaglar KwikPen U-100 Insulin) ipratropium bromide 21 mcg (0.03 2 spray intranasal AMHS 01/23/23 03/07/23 History %) nasal spray levalbuterol HCl 0.63 mg/3 mL 0.63 mg inhalation Q4 PRN Wheezing 01/23/23 03/07/23 History solution for nebulization metformin 1,000 mg tablet 1,000 mg PO BID 01/23/23 03/07/23 History montelukast 10 mg tablet 10 mg PO QPM 01/23/23 03/07/23 History nystatin 100,000 unit/gram topical 1 applic topical BID 01/23/23 03/07/23 History powder nystatin-triamcinolone 100,000 1 applic topical BID PRN .flare ups 01/23/23 03/07/23 History unit/g-0.1 % topical cream pantoprazole 40 mg tablet,delayed 40 mg PO QAM 01/23/23 03/07/23 History release tamsulosin 0.4 mg capsule 0.4 mg PO HS 01/23/23 03/07/23 History triamcinolone acetonide 0.1 % 1 applic topical BID PRN .flare ups 01/23/23 03/07/23 History topical ointment docusate sodium 100 mg capsule 100 mg PO BID PRN constipation #60 02/05/23 03/07/23 Rx (Colace) caps magnesium oxide 400 mg (241.3 mg 400 mg PO DAILY@1200 #30 tabs 02/05/23 03/07/23 Rx magnesium) tablet metoprolol succinate 100 mg 100 mg PO BID #60 tabs 02/05/23 03/07/23 Rx tablet,extended release 24 hr phenazopyridine 100 mg tablet 100 mg PO TID PRN dysuria #30 tabs 02/05/23 03/07/23 Rx (Pyridium) polyethylene glycol 3350 17 gram 17 g PO DAILY PRN constipation #30 02/05/23 03/07/23 Rx oral powder packet (Miralax) ea torsemide 10 mg tablet 20 mg (2 x 10 mg) PO QAM #30 tabs 02/05/23 03/07/23 Rx nitrofurantoin 100 mg PO BID 10 days #20 caps 03/02/23 03/07/23 Rx monohydrate/macrocrystals 100 mg capsule (Macrobid) cholecalciferol (vitamin D3) 125 125 mcg PO QAM 03/05/23 03/07/23 History mcg (5,000 unit) tablet (Vitamin D3) digoxin 250 mcg (0.25 mg) tablet 0.25 mg PO QAM 03/05/23 03/07/23 History multivitamin 1 tab PO QAM 03/05/23 03/07/23 History omega-3 fatty acids 1,000 mg PO QAM 03/05/23 03/07/23 History Past Med/Surg History Medical History History of COVID-19 02/14/2023, continues with cough and runny nose currently Morbid obesity Chronic diastolic heart failure Chronic sinusitis Wound dehiscence 2016 s/p hysterectomy Kidney stones passed on own previously and also stent placed 01/[address] [facility] [address] Ventura History of bleeding ulcers GERD (gastroesophageal reflux disease) Hypertension Post traumatic stress disorder Bipolar disorder Depression Anxiety Peripheral neuropathy bilateral 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 no problems since then. History of pneumococcal septicemia treated at [facility] 2013. History of cardioversion Nephrolithiasis RBBB Diabetes mellitus, type II IDDM Paroxysmal atrial fibrillation follows with Dr. Jason Mosley HLD (hyperlipidemia) REENA (obstructive sleep apnea) cpap at night H/O: CVA (cerebrovascular accident) 2004 -- no deficits. Arthritis COPD (chronic obstructive pulmonary disease) follows with [facility] Pulmonary (Dr Kat) Surgical History S/P laparotomy to repair hysterectomy wound dehiscence. History of cataract surgery bilateral History of tonsillectomy History of colonoscopy History of esophagogastroduodenoscopy (EGD) History of bronchoscopy S/P tendon repair bicep tendon repair (left) History of open reduction and internal fixation (ORIF) procedure Left elbow with hardware Hx of nasal septoplasty H/O: hysterectomy LUCERO with BSO Family History Other Diabetes No family history of adverse response to anesthesia Social History Smoking Status: Former smoker Tobacco Type: Cigarettes Cigarettes Per Day: 40; Second Hand Exposure: No; Do You Dip or Chew Tobacco: No; Hx Alcohol Use: No Hx Substance Use: No Preferred Language: Chinese Communication Ability: Effective Bit Shaver Required: No Beliefs That Will Affect Care: None marital status: Current Living Situation: Spouse Feels Safe at Home: Yes Assistive Devices: Cane, Walker and Wheelchair Review of Systems Review of Systems: Constitutional: No fever, sweats or chills Eyes: No diplopia, no worsening or blurred vision ENT: normal hearing, no trouble swallowing Respiratory: As per HPI, +cough, + sputum, + REID Cardiovascular: No chest pain, tightness or palpitations Abdomen: No pain, nausea, vomiting, + diarrhea as per HPI, and intermittent constipation Musculoskeletal: No joint pain, calf pain, swelling Neurologic: No weakness, numbness/tingling, + balance problems, uses walker at baseline Psychiatric: No anxiety or depression Skin: No rash or itch Physical Exam Physical Exam: General: awake, alert, no apparent distress, + morbidly obese white female Head: Normocephalic, atraumatic ENT: PERRL, EOMI, no pharyngeal exudate, mucous membranes moist Chest: Clear to auscultation, on room air with sats at 95%, no adventitious breath sounds, slightly diminished at bases, possibly sounds diminished due to body habitus Cardiac: irregularly irregular, rate controlled, no murmur, no JVD, normal peripheral pulses, good capillary refill Abdominal: NABS x 4 quadrants, soft, nondistended, nontender to palpation, no rebound or guarding Extremities: + trace peripheral edema BLE, slight erythema but appears chronic and not bright red, no warmth, calfs nontender to palpation Psych: Normal mood and affect Neuro: AAO x 3, strength intact bilaterally and rated 5/5, no motor deficits, speech is clear, no peripheral sensory deficits Results & Data Results & Data Vital Signs (Past 12 Hours) Vital Signs Temp Pulse Pulse Resp BP BP Pulse Ox 03/07/23 12:00 78 21 137/67 95 03/07/23 10:00 73 20 108/57 L 95 03/07/23 09:52 66 03/07/23 09:23 03/07/23 08:47 37.1 C 74 16 121/55 L 95 O2 Del Method O2 Flow Rate 03/07/23 12:00 Room Air 03/07/23 10:00 Room Air 03/07/23 09:52 03/07/23 09:23 Room Air 94 03/07/23 08:47 Room Air Laboratory Results 03/07/23 03/07/23 03/07/23 09:37 09:35 09:22 WBC 8.42 RBC 3.89 L Hgb 10.7 L Hct 34.0 L MCV 87.4 MCH 27.5 MCHC 31.5 L RDW Std Deviation 52.5 H RDW Coeff of Juan Diego 16.6 H Plt Count 198 MPV 11.3 Immature Gran % (Auto) 0.4 Neut % (Auto) 54.0 Lymph % (Auto) 32.1 Mcmullen % (Auto) 10.7 Eos % (Auto) 2.1 Baso % (Auto) 0.7 Neut # (Auto) 4.55 Lymph # (Auto) 2.70 Mcmullen # (Auto) 0.90 H Eos # (Auto) 0.18 Baso # (Auto) 0.06 Immature Gran # (Auto) 0.03 PT 12.7 H INR 1.2 H APTT 29.3 PTT Ratio 1.0 VBG pH 7.43 H VBG pCO2 35 L VBG pO2 64 VBG HCO3 23 VBG O2 Saturation 92.6 VBG Base Excess -0.6 Sodium 142 Potassium 3.3 L Chloride 105 Carbon Dioxide 23 Anion Gap 14 H BUN 23 Creatinine 1.40 H Est Cr Clr Drug Dosing Not Reportable Est GFR ( Amer) 44.0 Est GFR (Non-Af Amer) 38.0 BUN/Creatinine Ratio 16.4 Glucose 198 H Calcium 7.9 L Total Bilirubin 0.9 AST 22 ALT 22 Alkaline Phosphatase 64 Troponin I High Sens 17.7 H B-Natriuretic Peptide 96 Total Protein 6.1 Albumin 3.4 Globulin 2.7 Albumin/Globulin Ratio 1.3 SARS-CoV-2, RNA, NAAT POSITIVE A* Diagnostic Findings Chest X-Ray 03/07/23 08:51 XR chest 1V portable CLINICAL HISTORY: Chest pain, nonspecific COMPARISON STUDY: Chest radiograph and chest CT January 23, 2023. FINDINGS: No pneumothorax or pleural effusion is present. Moderate cardiomegaly is again noted. There is no evidence for pulmonary edema. There is no consolidation to suggest pneumonia. IMPRESSION: No acute cardiopulmonary findings. Stable cardiomegaly. ACT 112: Negative or not required by law. Electronically signed by: Hola Méndez M.D. 03/07/2023 9:32 AM Code Status & VTE Plan Code Status Full code Supervising Physician Co-Signing Physician Notes Patient is a 72-year-old female with history of COPD, obstructive sleep apnea on CPAP, diastolic heart failure, diabetes mellitus, morbid obesity and other medical problems presents with history of worsening shortness of breath, generalized weakness, dizziness, fatigue and intermittent cough since about 2 weeks duration. She was tested positive for COVID 2 weeks ago. She has been having dyspnea on exertion lately. Home RN tested oxygen saturation with ambulation and was noted to be hypoxic in 80s. She denies any chest pain. She admits to have ongoing diarrhea for many days. Please review HPI for complete details of presentation. I personally reviewed blood work, imaging studies and EKG evaluated the time of admission. Physical Exam: Vitals signs as noted above General Appearance:Morbidly Obese, no apparent distress Head: normocephalic, Atraumatic Eyes: normal inspection, EOMI Neck: supple, Trachea midline Respiratory/Chest: Decreased breath sounds, CTA, No accessory muscle use Cardiovascular: Irregularly irregular, No murmur Abdomen/GI:Soft, Non tender, Bowel sounds present Extremities/Musculoskeletal:normal inspection, 1-2+ B/L LE edema, chronic minimal erythema, chronic venous stasis changes Neurologic/Psych:AAOX3, grossly no focal neurological deficits Skin: normal color, warm COVID-19 infection Deconditioning secondary to comorbidities Diarrhea Hypokalemia Mild troponin elevation likely demand ischemia REENA Chest x-ray showed no signs of pneumonia Normal Procalcitonin Given intermittent hypoxia, will start on dexamethasone No indication for remdesivir Replace electrolytes as needed Check stool studies PT OT as able Monitor volume status closely Continue home diuretics Continue insulin while hospitalized for diabetes management Glycemic pharmacist consulted Continue CPAP at bedtime I personally reviewed the record. Patient is interviewed and examined at bed side. Patient's care is coordinated with Brooklyn Bueno PA-C. Please refer to the documentation above for details of patient's presentation and for discussion of other issues.
[2023-03-07] MEDS ORDERED: ALBUTEROL HFA 8 GM INHALER INH PRN (14:01)
[2023-03-07] MEDS ORDERED: POLYETHYLENE (MIRALAX) 17 GM PACK PO PRN (14:01)
[2023-03-07] MEDS ORDERED: NYSTATIN/TRIAMCIN CR 15 GM TUBE EXT PRN (14:01)
[2023-03-07] MEDS ORDERED: BACLOFEN 10 MG TAB PO PRN (14:01)
[2023-03-07] MEDS ORDERED: PHENAZOPYRIDINE HCL 100 MG TAB PO PRN (14:01)
[2023-03-07 15:17] LABS: C Reactive Protein 0.59 mg/dl (0-0.5)
[2023-03-07 15:24] LABS: Troponin I High Sensitivity 17.3 pg/ml (0-14)
[2023-03-07] MEDS ORDERED: DEXTROSE 50% 50 ML SYRINGE IV PRN (15:29)
[2023-03-07] MEDS ORDERED: CARBOHYDRATES FOR HYPOGLYCEMIA PO PRN (15:29)
[2023-03-07] MEDS ORDERED: GLUCAGON FOR INJ 1 MG VIAL SQ PRN (15:29)
[2023-03-07] MEDS ORDERED: ONDANSETRON INJ 2 MG/ML 2 ML VIAL IV PRN (15:29)
[2023-03-07] MEDS ORDERED: POTASSIUM CHLORIDE CRTAB 20 MEQ TABCR PO STA (15:29)
[2023-03-07] MEDS ORDERED: GLUCOSE 40% GEL 15 GM TUBE PO PRN (15:29)
[2023-03-07] MEDS ORDERED: GLUCOSE 10 TAB/TUBE PO PRN (15:29)
[2023-03-07] MEDS: METOPROLOL SUCC 50MG EXT REL TAB PO SCH ×2 (15:51→22:12)
[2023-03-07] MEDS: BENZONATATE 100 MG CAPSULE PO SCH ×2 (15:51→22:10)
[2023-03-07] MEDS: ALBUTEROL HFA 8 GM INHALER INH SCH ×3 (15:52→22:08)
[2023-03-07] MEDS: PANTOprazole 40 MG TAB PO SCH (15:52)
[2023-03-07] MEDS: TORSEMIDE 10 MG TAB PO SCH (15:52)
[2023-03-07] MEDS: POTASSIUM CHLORIDE / WTR 10 MEQ/100 ML PLCT IV SCH ×2 (15:53→17:11)
[2023-03-07] MEDS: DIGOXIN 0.25 MG TAB PO SCH (15:59)
[2023-03-07] MEDS: dexAMETHasone 6 MG in SYRINGE 0 ML IV SCH (17:11)
[2023-03-07] MEDS: INSULIN ASPART PER UNIT CHARGE SC SCH ×2 (19:30→23:14)
[2023-03-07] MEDS ORDERED: PHARMACY GLYCEMIC MGMT CONSULT PRN (19:44)
[2023-03-07] MEDS: Patient's HEIGHT &/or WEIGHT Needed SCH (20:53)
[2023-03-07] MEDS ORDERED: LANTUS PER UNIT CHARGE SC ONE ×2 (21:00→23:15)
[2023-03-07] MEDS ORDERED: LANTUS PER UNIT CHARGE SC SCH (21:00)
[2023-03-07] MEDS ORDERED: LANTUS PER UNIT CHARGE SQ SCH (21:00)
[2023-03-07] MEDS: ADVANCED PROBIOTIC 1250 MG CAPSULE PO SCH (22:08)
[2023-03-07] MEDS: APIXABAN 5 MG TABLET PO SCH (22:09)
[2023-03-07] MEDS: ATORVASTATIN 40 MG TAB PO SCH (22:10)
[2023-03-07] MEDS: FAMOTIDINE 20 MG TAB PO SCH (22:11)
[2023-03-07] MEDS: guaiFENesin 600 MG TABCR PO SCH (22:11)
[2023-03-07] MEDS: TAMSULOSIN HCL 0.4 MG CAP PO SCH (22:13)
[2023-03-07] MEDS: NITROFURANTOIN MONOHYDRATE 100 MG CAP PO SCH (22:13)
[2023-03-07] MEDS: MONTELUKAST SODIUM 10 MG TABLET PO SCH (22:13)
[2023-03-07] MEDS: IPRATROPIUM BROMIDE NASAL SPRAY 0.06% 15ML SCH (22:14)
[2023-03-08] MEDS ORDERED: INSULIN ASPART PER UNIT CHARGE SC SCH
[2023-03-08] MEDS: Patient's HEIGHT &/or WEIGHT Needed SCH (00:25)
[2023-03-08] MEDS ORDERED: INSULIN ASPART PER UNIT CHARGE SC STA (01:52)
[2023-03-08] MEDS: ACETAMINOPHEN 325 MG TAB PO PRN (04:28)
[2023-03-08 04:41] LABS: Basophils # (auto) 0.02 K/uL (0.00-0.20); Basophils % (auto) 0.3 %; Hematocrit (blood only) 32.6 % (37.0-47.0); Hemoglobin 10.3 g/dl (12.0-16.0); Immature Granulocytes # (auto) 0.03 K/uL (0.01-0.20); Immature Granulocytes % (auto) 0.4 %; Lymphocytes # (auto) 1.44 K/uL (1.20-3.40); Lymphocytes % (auto) 20.7 %; Mean Corpuscular Hemoglobin 27.4 pg (25.0-34.0); Mean Corpuscular Hgb Conc 31.6 g/dL (32.0-36.0); Mean Corpuscular Volume 86.7 fL (80.0-100.0); Mean Platelet Volume 11.3 fL (9.4-12.4); Monocytes # (auto) 0.41 K/uL (0.11-0.59); Monocytes % (auto) 5.9 %; Neutrophils # (auto) 5.06 K/uL (1.40-6.50); Neutrophils % (auto) 72.7 %; Platelet Count 211 K/uL (130-400); RDW Coefficient of Variation 16.3 % (11.5-14.5); RDW Standard Deviation 51.5 fL (36.4-46.3); Red Blood Count 3.76 M/uL (4.20-5.40); White Blood Count 6.96 K/ul (4.8-10.8)
[2023-03-08 05:12] LABS: BUN Creatinine Ratio 19.6 (10-20); Calcium 7.4 mg/dl (8.6-10.3); Creatinine Clr Calc Pharmacy 53.7 ml/min; Est GFR (African American) 42.9 ml/min; Potassium 4.1 mmol/L (3.5-5.1)
[2023-03-08] MEDS: ALBUTEROL HFA 8 GM INHALER INH SCH ×4 (06:57→18:20)
[2023-03-08 07:35] LABS: Estimated Average Glucose 200 mg/dl; Hemoglobin A1C 8.6 % (4.5-5.6)
[2023-03-08] MEDS: guaiFENesin 600 MG TABCR PO SCH ×2 (07:49→21:09)
[2023-03-08] MEDS: BENZONATATE 100 MG CAPSULE PO SCH ×3 (07:49→21:08)
[2023-03-08] MEDS: IPRATROPIUM BROMIDE NASAL SPRAY 0.06% 15ML SCH (07:49)
[2023-03-08] MEDS: TORSEMIDE 10 MG TAB PO SCH (07:50)
[2023-03-08] MEDS: ADVANCED PROBIOTIC 1250 MG CAPSULE PO SCH (07:50)
[2023-03-08] MEDS: NITROFURANTOIN MONOHYDRATE 100 MG CAP PO SCH ×2 (07:51→21:08)
[2023-03-08] MEDS: APIXABAN 5 MG TABLET PO SCH ×2 (07:51→21:08)
[2023-03-08] MEDS: dexAMETHasone 6 MG in SYRINGE 0 ML IV SCH (07:51)
[2023-03-08] MEDS: OMEGA-3 (PURIFIED FISH OIL) 1 GM CAP PO SCH (07:51)
[2023-03-08] MEDS: CHOLECALCIFEROL 5,000 UNITS 125 MCG TAB PO SCH (07:52)
[2023-03-08] MEDS: METOPROLOL SUCC 50MG EXT REL TAB PO SCH ×2 (07:52→21:10)
[2023-03-08] MEDS: PANTOprazole 40 MG TAB PO SCH (07:52)
[2023-03-08] MEDS: MULTIVITAMIN TAB PO SCH (07:52)
[2023-03-08] MEDS ORDERED: PHARMACY GLYCEMIC MGMT CONSULT PRN (07:54)
[2023-03-08] MEDS: INSULIN ASPART PER UNIT CHARGE SC SCH ×5 (07:59→21:05)
[2023-03-08] MEDS ORDERED: LANTUS PER UNIT CHARGE SC ONE (08:00)
[2023-03-08] MEDS ORDERED: INSULIN HUMAN REGULAR PER UNIT 10 UNITS in SYRINGE 9.9 ML IV ONE (08:00)
[2023-03-08] MEDS ORDERED: INSULIN PROTOCOL GOAL RANGE ONE (12:04)
[2023-03-08] MEDS ORDERED: SEVERE STRESS LEVEL ONE (12:04)
[2023-03-08] MEDS ORDERED: NovoLIN-R BOLUS FROM BAG IV ONE (12:15)
[2023-03-08] MEDS: INSULIN REGULAR 250 UNITS in SODIUM CHLORIDE 0.9% 247.5 ML IV SCH (13:09)
[2023-03-08] MEDS: MAGNESIUM OXIDE 400 MG TAB PO SCH (13:13)
--- NOTE | 2023-03-08 14:10 | Pharmacy Report ---
Pharmacy Glycemic Short Note 2 - Date of Service March 08, 2023 - Glycemic Short BSG Results (Last 24 hours): 03/07/23 03/07/23 03/08/23 17:21 22:49 00:23 Glucose POC Glucose 260 H 425 H* 436 H* 03/08/23 03/08/23 03/08/23 01:35 04:11 04:12 Glucose POC Glucose 411 H* 320 H* 351 H* 03/08/23 03/08/23 03/08/23 04:13 07:46 11:32 Glucose 349 H* POC Glucose 328 H* 348 H* OUTPATIENT ANTIDIABETIC REGIMEN: * Basaglar 65 units SC BID * Novolog 20-25 units SC BIDM * Metformin 1g PO BIDM HbA1c: 8.6% (03/08/23) ASSESSMENT: * CF is a 72 year old female who presented to ED on 03/07/23 w/ worsening shortness of breath. Patient is positive for COVID-19. * Pertinent PMH includes T2DM (w/ history of profound insulin resistance while inpatient), obesity, HTN, and CHF * Dexamethasone 6 mg IV daily ordered ongoing, BSGs increased overnight > 400 mg/dL after first dose * Attempted to avoid insulin infusion this morning with large dose of basal, but lunchtime BSG still above > 300 mg/dL. Will initiate insulin infusion. * Of note, patient was requiring >300 units of insulin last admission w/ no steroids ordered * Home basal dose of 130 units/day + 0.4 unit/kg to account for steroids (~60 units) = ~190 units/day of basal. Will give slight reduction today. PLAN FOR INPATIENT GLYCEMIC CONTROL: * Hold outpatient oral diabetes medications * Basal insulin * Lantus 100 units SC x 1 this morning * Lantus 75 units SC x 1 HS * Reassess in AM * Insulin infusion at this time until BSGs are adequately controlled * Nutritional / Prandial insulin per carb ratio of 1 unit per 2 grams CHO consumed while on insulin infusion
--- NOTE | 2023-03-08 17:29 | Hospitalist Progress Note ---
Date of Service March 08, 2023 Assessment & Plan (1) COVID-19: (2) Elevated troponin: (3) Chronic heart failure with preserved ejection fraction: (4) Permanent atrial fibrillation: (5) Diabetes mellitus, type II: (6) HLD (hyperlipidemia): (7) Morbid obesity: (8) REENA (obstructive sleep apnea): (9) Bipolar disorder: (10) Hypokalemia: Plan: per admitting service notes with addendum: COVID-19 Shortness of breath Elevated troponin Hypokalemia - COVID-19 positive, known outpatient test positive since 02/20/2023 - Procalcitonin and CRP pending - CXR reviewed: Without any acute findings, pt is anticoagulated already so low suspicion for PE. - O2 sats 95% on room a, reports being low at 89% with exertion at home - WBC 8.42 -Patient does not qualify for remdesivir with having sx since 02/20 -Start decadron 6 mg IV daily - Trend troponin, initially elevated slightly at 17, no chest pain, EKG unchanged -K 3.2 on admission, replace with PO and IV, trend with am labs 03/08 Currently on room air, saturating 96% Chest x-ray: No signs of pneumonia Hold Decadron, patient already on room air Added Xopenex/Atrovent nebulization, with hypertonic saline twice daily Continue Mucinex Encouraged use of flutter valve and incentive spirometry On Eliquis Monitor close A-fib HTN CHF, chronic diastolic -Continue home meds- - Continue eliquis anticoagulation Diarrhea -Check Cdiff, already on probiotic, taking macrobid for UTI/obstructive stone chronically since last admission 03/08 Resolving C. difficile negative UTI/obstructed uropathy - Cr/BUN stable, on macrobid since 02/06 discharge, anticipated to have urology f/u in 4 days, on 03/11, as outpatient to have removed - may need rescheduled based on this admission DM type II -Last A1c 9.3 in September on outpatient epic review, check with am labs - Pt is no longer on ozempic, may continue lantus and ISS while here, Holding metformin 03/08 Hyperglycemic secondary to Decadron On insulin drip Pharmacy glycemic service consulted REENA on CPAP -Continue at bedtime Obesity -Diet and exercise modification, lifestyle changes encouraged at bedside Bipolar type II -Not on mood stabilizing medications DVT PPx- teds, scds Lines: 2 PIV FEN/GI: Heart healthy/DM diet CODE: Full Dispo: pending Admission and Anticipated Discharge Date Admission Date: March 07, 2023 Subjective Follow-up for COVID-19 infection, bronchitis, etc. Seen resting in chair, comfortable in good spirits On room air States that she feels improved compared to yesterday but still having some chest congestion, cough, productive of yellow sputum No chest pain, palpitations, nausea vomiting No other new symptoms Review of Systems Review of Systems: all noted and negative except for above Physical Exam Physical Exam: General- oriented x 3, not in distress, speaks in sentences with no effort or accessory muscle use Eyes- anicteric Neck- no JVD Lungs-mild intermittent wheezing bilaterally No crackles Heart- normal rate, regular rhythm; no murmurs Abdomen- normal bowel sounds, nondistended, soft, nontender Extremities-grade 1 lower extremity edema, no calf tenderness Neuro- alert, oriented x 3; no gross focal neurologic deficits Skin- warm & dry Results & Data Results & Data Vital Signs (Past 12 Hours) Vital Signs Pulse Pulse Resp BP Pulse Ox O2 Del Method 03/08/23 14:31 69 18 95 Room Air 03/08/23 11:02 69 16 95 Room Air 03/08/23 09:06 78 18 143/76 H 94 Room Air 03/08/23 07:20 69 03/08/23 06:57 84 16 98 Room Air all noted and reviewed including below
[2023-03-08] MEDS: DIGOXIN 0.25 MG TAB PO SCH (18:06)
[2023-03-08] MEDS ORDERED: XOPENEX/ATROVENT 1.25mg/0.5MG NEB COMBO NEB SCH (19:00)
[2023-03-08] MEDS: SODIUM CHLOR 7% 4 ML NEB NEB SCH (20:04)
[2023-03-08] MEDS: LEVALBUTEROL 1.25 MG/3 ML NEB NEB SCH (20:07)
[2023-03-08] MEDS: IPRATROPIUM BROMIDE NEB SOLN 0.02% 2.5 ML VIAL NEB SCH (20:07)
[2023-03-08] MEDS ORDERED: LANTUS PER UNIT CHARGE SC SCH (21:00)
[2023-03-08] MEDS: ATORVASTATIN 40 MG TAB PO SCH (21:08)
[2023-03-08] MEDS: FAMOTIDINE 20 MG TAB PO SCH (21:09)
[2023-03-08] MEDS: TAMSULOSIN HCL 0.4 MG CAP PO SCH (21:10)
[2023-03-08] MEDS: MONTELUKAST SODIUM 10 MG TABLET PO SCH (21:10)
[2023-03-08] MEDS: HYDROCODONE/ACETAMOPHEN 5/325MG TAB PO PRN (22:41)
[2023-03-09] MEDS: IPRATROPIUM BROMIDE NEB SOLN 0.02% 2.5 ML VIAL NEB SCH ×4 (02:20→20:45)
[2023-03-09] MEDS: LEVALBUTEROL 1.25 MG/3 ML NEB NEB SCH ×4 (02:20→20:44)
[2023-03-09] MEDS: ACETAMINOPHEN 325 MG TAB PO PRN (03:48)
[2023-03-09] MEDS: SODIUM CHLOR 7% 4 ML NEB NEB SCH ×2 (06:54→20:45)
[2023-03-09 07:12] LABS: BUN Creatinine Ratio 26.4 (10-20); Calcium 7.6 mg/dl (8.6-10.3); Creatinine Clr Calc Pharmacy 59.5 ml/min; Est GFR (African American) 48.6 ml/min; Est GFR (Non-African American) 41.9 ml/min; Potassium 3.3 mmol/L (3.5-5.1)
[2023-03-09] MEDS: APIXABAN 5 MG TABLET PO SCH ×2 (08:40→21:24)
[2023-03-09] MEDS: BENZONATATE 100 MG CAPSULE PO SCH ×3 (08:40→21:23)
[2023-03-09] MEDS: CHOLECALCIFEROL 5,000 UNITS 125 MCG TAB PO SCH (08:41)
[2023-03-09] MEDS: METOPROLOL SUCC 50MG EXT REL TAB PO SCH ×2 (08:41→21:24)
[2023-03-09] MEDS: TORSEMIDE 10 MG TAB PO SCH (08:41)
[2023-03-09] MEDS: ADVANCED PROBIOTIC 1250 MG CAPSULE PO SCH (08:41)
[2023-03-09] MEDS: guaiFENesin 600 MG TABCR PO SCH ×2 (08:41→21:20)
[2023-03-09] MEDS: OMEGA-3 (PURIFIED FISH OIL) 1 GM CAP PO SCH (08:41)
[2023-03-09] MEDS: MULTIVITAMIN TAB PO SCH (08:41)
[2023-03-09] MEDS: PANTOprazole 40 MG TAB PO SCH (08:42)
[2023-03-09] MEDS: LANTUS PER UNIT CHARGE SC SCH ×2 (09:03→21:14)
[2023-03-09] MEDS: HYDROCODONE/ACETAMOPHEN 5/325MG TAB PO PRN ×3 (10:06→23:44)
[2023-03-09] MEDS: INSULIN ASPART PER UNIT CHARGE SC SCH ×4 (10:06→21:38)
[2023-03-09] MEDS: INSULIN REGULAR 250 UNITS in SODIUM CHLORIDE 0.9% 247.5 ML IV SCH (10:15)
[2023-03-09] MEDS: POTASSIUM CHLORIDE CRTAB 20 MEQ TABCR PO SCH ×2 (12:39→21:20)
[2023-03-09] MEDS: MAGNESIUM OXIDE 400 MG TAB PO SCH (12:39)
[2023-03-09] MEDS: NITROFURANTOIN MONOHYDRATE 100 MG CAP PO SCH ×2 (13:22→19:32)
--- NOTE | 2023-03-09 14:19 | Pharmacy Report ---
Pharmacy Glycemic Short Note 2 - Date of Service March 09, 2023 - Glycemic Short BSG Results (Last 24 hours): 03/08/23 03/08/23 03/08/23 14:35 15:58 17:12 Glucose POC Glucose 379 H* 364 H* 307 H* 03/08/23 03/08/23 03/08/23 18:27 20:44 22:16 Glucose POC Glucose 302 H* 321 H* 230 H 03/08/23 03/09/23 03/09/23 23:50 01:14 02:09 Glucose POC Glucose 215 H 178 H 147 H 03/09/23 03/09/23 03/09/23 03:21 05:17 06:07 Glucose 151 H POC Glucose 139 H 182 H 03/09/23 03/09/23 03/09/23 06:13 08:20 10:26 Glucose POC Glucose 163 H 139 H 254 H 03/09/23 03/09/23 11:13 12:26 Glucose POC Glucose 259 H 210 H OUTPATIENT ANTIDIABETIC REGIMEN: * Basaglar 65 units SC BID * Novolog 20-25 units SC BIDM * Metformin 1g PO BIDM * HbA1c: 8.6% (03/08/23) ASSESSMENT: 03/09: * Tiffanie received 478 units of insulin yesterday (175 units basal + 142 units bolus + 161 units from insulin drip). BSGs remained in to 200-300 mg/dL range all day. * BSG this AM down to 139 mg/dL. Insulin drip running at 13.9 units/hr. Will increase basal by 15% today because Dexamethasone has been put on hold for the time being. Hope is that increasing basal will help to bring drip rate down where we can safely discontinue it. * Continuing with set carb ratio on drip calculator of 1 units of insulin for every 2 g of CHO consumed. * Potassium a little low this AM at 3.3 so recommended supplementation. PO KCl ordered by provider. * Patient is familiar to our service. During previous admissions, high amounts of insulin required and snacked often times between meals leading to inaccurate BSGs. 03/08: * CF is a 72 year old female who presented to ED on 03/07/23 w/ worsening shortness of breath. Patient is positive for COVID-19. * Pertinent PMH includes T2DM (w/ history of profound insulin resistance while inpatient), obesity, HTN, and CHF * Dexamethasone 6 mg IV daily ordered ongoing, BSGs increased overnight > 400 mg/dL after first dose * Attempted to avoid insulin infusion this morning with large dose of basal, but lunchtime BSG still above > 300 mg/dL. Will initiate insulin infusion. * Of note, patient was requiring >300 units of insulin last admission w/ no steroids ordered * Home basal dose of 130 units/day + 0.4 unit/kg to account for steroids (~60 units) = ~190 units/day of basal. Will give slight reduction today. PLAN FOR INPATIENT GLYCEMIC CONTROL: * Hold outpatient oral diabetes medications * Basal insulin * Lantus 100 units SC BID * Insulin infusion at this time until BSGs are adequately controlled * Nutritional / Prandial insulin per carb ratio of 1 unit per 2 grams CHO consumed while on insulin infusion * Current rate is 13.9 units/hr * Recommendations for discontinuation of insulin drip: * Drip rate < 5 units/hr AND BSG in goal range of 110-180 mg/dL * Start Novolog q4h with goal range of 110-140 mg/dL, Correction Factor of 6, Carb ratio of 2
--- NOTE | 2023-03-09 17:50 | Hospitalist Progress Note ---
Date of Service March 09, 2023 Assessment & Plan (1) COVID-19: (2) Elevated troponin: (3) Chronic heart failure with preserved ejection fraction: (4) Permanent atrial fibrillation: (5) Diabetes mellitus, type II: (6) HLD (hyperlipidemia): (7) Morbid obesity: (8) REENA (obstructive sleep apnea): (9) Bipolar disorder: (10) Hypokalemia: Plan: per admitting service notes with addendum: COVID-19 Shortness of breath Elevated troponin Hypokalemia - COVID-19 positive, known outpatient test positive since 02/20/2023 - Procalcitonin and CRP pending - CXR reviewed: Without any acute findings, pt is anticoagulated already so low suspicion for PE. - O2 sats 95% on room a, reports being low at 89% with exertion at home - WBC 8.42 -Patient does not qualify for remdesivir with having sx since 02/20 -Start decadron 6 mg IV daily - Trend troponin, initially elevated slightly at 17, no chest pain, EKG unchanged -K 3.2 on admission, replace with PO and IV, trend with am labs 03/08 Currently on room air, saturating 96% Chest x-ray: No signs of pneumonia Hold Decadron, patient already on room air Added Xopenex/Atrovent nebulization, with hypertonic saline twice daily Continue Mucinex Encouraged use of flutter valve and incentive spirometry On Eliquis Monitor close 03/09 Remained stable Decadron not indicated at this point Continue nebs, hypertonic saline Continue Mucinex Continue flutter valve incentive spirometry Already on Eliquis Monitor closely A-fib HTN CHF, chronic diastolic -Continue home meds- - Continue eliquis anticoagulation Diarrhea -Check Cdiff, already on probiotic, taking macrobid for UTI/obstructive stone chronically since last admission 03/09 Resolving C. difficile negative UTI/obstructed uropathy - Cr/BUN stable, on macrobid since 02/06 discharge, anticipated to have urology f/u in 4 days, on 03/11, as outpatient to have removed - may need rescheduled based on this admission DM type II -Last A1c 9.3 in September on outpatient epic review, check with am labs - Pt is no longer on ozempic, may continue lantus and ISS while here, Holding metformin 03/09 Hyperglycemic secondary to Decadron On insulin drip Pharmacy glycemic service consulted REEAN on CPAP -Continue at bedtime Obesity -Diet and exercise modification, lifestyle changes encouraged at bedside Bipolar type II -Not on mood stabilizing medications DVT PPx- teds, scds Lines: 2 PIV FEN/GI: Heart healthy/DM diet CODE: Full Dispo: pending PT and OT evaluation Admission and Anticipated Discharge Date Admission Date: March 07, 2023 Subjective Follow-up for COVID-19 infection, etc. Seen sitting up in chair, not in distress, in good spirits States that she feels that she is improving today Still feeling on the weak side No abdominal pain, diarrhea today No other new symptoms Review of Systems Review of Systems: all noted and negative except for above Physical Exam Physical Exam: General- oriented x 3, not in distress, speaks in sentences with no effort or accessory muscle use Eyes- anicteric Neck- no JVD Lungs- clear breath sounds bilaterally, no rales/wheezes Heart- normal rate, regular rhythm; no murmurs Abdomen- normal bowel sounds, nondistended, soft, nontender Extremities-grade 1 lower extremity edema, no calf tenderness Neuro- alert, oriented x 3; no gross focal neurologic deficits Skin- warm & dry Results & Data Results & Data Vital Signs (Past 12 Hours) Vital Signs Pulse Pulse Resp BP Pulse Ox O2 Del Method 03/09/23 15:54 77 03/09/23 12:43 66 18 94 Room Air 03/09/23 12:27 65 14 97/69 L 93 CPAP 03/09/23 08:35 65 25 H 122/71 94 Room Air 03/09/23 07:44 71 03/09/23 06:55 56 L 20 92 Room Air all noted and reviewed including below
[2023-03-09] MEDS: DIGOXIN 0.25 MG TAB PO SCH (19:28)
[2023-03-09] MEDS: FAMOTIDINE 20 MG TAB PO SCH (21:15)
[2023-03-09] MEDS: TAMSULOSIN HCL 0.4 MG CAP PO SCH (21:18)
[2023-03-09] MEDS: MONTELUKAST SODIUM 10 MG TABLET PO SCH (21:19)
[2023-03-09] MEDS: ATORVASTATIN 40 MG TAB PO SCH (21:23)
[2023-03-10] MEDS: IPRATROPIUM BROMIDE NEB SOLN 0.02% 2.5 ML VIAL NEB SCH ×4 (00:53→19:30)
[2023-03-10] MEDS: LEVALBUTEROL 1.25 MG/3 ML NEB NEB SCH ×4 (00:54→19:30)
[2023-03-10] MEDS: INSULIN REGULAR 250 UNITS in SODIUM CHLORIDE 0.9% 247.5 ML IV SCH ×5 (01:19→16:48)
[2023-03-10] MEDS: SODIUM CHLOR 7% 4 ML NEB NEB SCH ×2 (07:47→19:30)
[2023-03-10] MEDS: HYDROCODONE/ACETAMOPHEN 5/325MG TAB PO PRN (09:44)
[2023-03-10] MEDS: DOCUSATE SODIUM 100 MG CAP PO PRN (09:44)
[2023-03-10] MEDS: BENZONATATE 100 MG CAPSULE PO SCH ×3 (09:45→22:39)
[2023-03-10] MEDS: METOPROLOL SUCC 50MG EXT REL TAB PO SCH ×2 (09:45→22:41)
[2023-03-10] MEDS: CHOLECALCIFEROL 5,000 UNITS 125 MCG TAB PO SCH (09:45)
[2023-03-10] MEDS: guaiFENesin 600 MG TABCR PO SCH ×2 (09:45→22:40)
[2023-03-10] MEDS: OMEGA-3 (PURIFIED FISH OIL) 1 GM CAP PO SCH (09:45)
[2023-03-10] MEDS: APIXABAN 5 MG TABLET PO SCH ×2 (09:45→22:41)
[2023-03-10] MEDS: MULTIVITAMIN TAB PO SCH (09:45)
[2023-03-10] MEDS: POTASSIUM CHLORIDE CRTAB 20 MEQ TABCR PO SCH ×2 (09:45→22:42)
[2023-03-10] MEDS: TORSEMIDE 10 MG TAB PO SCH (09:46)
[2023-03-10] MEDS: LANTUS PER UNIT CHARGE SC SCH (09:46)
[2023-03-10] MEDS: ADVANCED PROBIOTIC 1250 MG CAPSULE PO SCH (09:46)
[2023-03-10 09:47] LABS: Creatinine Clr Calc Pharmacy 82.5 ml/min; Est GFR (African American) 72.2 ml/min; Est GFR (Non-African American) 62.3 ml/min; Potassium 3.5 mmol/L (3.5-5.1)
[2023-03-10] MEDS: INSULIN ASPART PER UNIT CHARGE SC SCH ×4 (09:47→22:33)
[2023-03-10] MEDS ORDERED: LANTUS PER UNIT CHARGE SC SCH (11:30)
[2023-03-10] MEDS: PANTOprazole 40 MG TAB PO SCH (12:14)
[2023-03-10] MEDS: MAGNESIUM OXIDE 400 MG TAB PO SCH (12:14)
[2023-03-10] MEDS: NITROFURANTOIN MONOHYDRATE 100 MG CAP PO SCH ×2 (12:14→16:38)
--- NOTE | 2023-03-10 14:04 | Pharmacy Report ---
Pharmacy Glycemic Short Note 2 - Date of Service March 10, 2023 - Glycemic Short BSG Results (Last 24 hours): 03/09/23 03/09/23 03/09/23 15:13 18:21 21:14 Glucose POC Glucose 204 H 182 H 193 H 03/09/23 03/10/23 03/10/23 23:30 01:14 02:20 Glucose POC Glucose 164 H 182 H 150 H 03/10/23 03/10/23 03/10/23 03:19 04:18 06:16 Glucose POC Glucose 145 H 142 H 138 H 03/10/23 03/10/23 03/10/23 08:20 09:02 12:20 Glucose 123 H POC Glucose 131 H 187 H 03/10/23 13:13 Glucose POC Glucose 173 H OUTPATIENT ANTIDIABETIC REGIMEN: * Basaglar 65 units SC BID * Novolog 20-25 units SC BIDM * Metformin 1g PO BIDM * HbA1c: 8.6% (03/08/23) ASSESSMENT: 03/10: * Tiffanie received 617 units of insulin yesterday (200 units basal + 80 units bolus + 337 units from the insulin drip). BSGs better controlled 150-250mg/dL * BSG this AM 131mg/dL. Insulin drip running at 24 units/hr. Increase basal insulin by 20% again today. * Planning to trial a slow transition to basal/bolus today. Will decrease rate slowing and monitor BSGs completely stopping the drip with dinner. Glycemic pharmacist available throughout the process today. * Tightened set carb ratio slightly to help drip transition. Will initiate correctional factor at previously effective level and use current carbohydrate ratio with dinner. 03/09: * Tiffanie received 478 units of insulin yesterday (175 units basal + 142 units bolus + 161 units from insulin drip). BSGs remained in to 200-300 mg/dL range all day. * BSG this AM down to 139 mg/dL. Insulin drip running at 13.9 units/hr. Will increase basal by 15% today because Dexamethasone has been put on hold for the time being. Hope is that increasing basal will help to bring drip rate down where we can safely discontinue it. * Continuing with set carb ratio on drip calculator of 1 units of insulin for every 2 g of CHO consumed. * Potassium a little low this AM at 3.3 so recommended supplementation. PO KCl ordered by provider. * Patient is familiar to our service. During previous admissions, high amounts of insulin required and snacked often times between meals leading to inaccurate BSGs. 03/08: * CF is a 72 year old female who presented to ED on 03/07/23 w/ worsening shortness of breath. Patient is positive for COVID-19. * Pertinent PMH includes T2DM (w/ history of profound insulin resistance while inpatient), obesity, HTN, and CHF * Dexamethasone 6 mg IV daily ordered ongoing, BSGs increased overnight > 400 mg/dL after first dose * Attempted to avoid insulin infusion this morning with large dose of basal, but lunchtime BSG still above > 300 mg/dL. Will initiate insulin infusion. * Of note, patient was requiring >300 units of insulin last admission w/ no steroids ordered * Home basal dose of 130 units/day + 0.4 unit/kg to account for steroids (~60 units) = ~190 units/day of basal. Will give slight reduction today. PLAN FOR INPATIENT GLYCEMIC CONTROL: * Hold outpatient oral diabetes medications * Basal insulin * Lantus 100 units SC BID * Lantus 50 units SC QDL * Insulin infusion * Nutritional / Prandial insulin per carb ratio of 1 unit per 1.5 grams CHO consumed while on insulin infusion * Current rate is 28.8 units/hr, decrease to 14 units/hr at 1430, then 7 units/hr at 1530, then stop at 1630 * Correctional Insulin: Novolog Correction per scale ACHS or Q4H while NPO beginning at 1630 * Goal Range: Low 110 mg/dL - High 140 mg/dL * Correction Factor: 6 mg/dL/unit * Carbohydrate Ratio: 1 unit per 1.5g CHO
[2023-03-10] MEDS: DIGOXIN 0.25 MG TAB PO SCH (16:38)
[2023-03-10] MEDS ORDERED: INSULIN ASPART PER UNIT CHARGE SC SCH (19:00)
--- NOTE | 2023-03-10 19:23 | Hospitalist Progress Note ---
Date of Service March 10, 2023 Assessment & Plan (1) COVID-19: (2) Elevated troponin: (3) REID (dyspnea on exertion): Plan: (1) COVID-19: (2) Elevated troponin: (3) Chronic heart failure with preserved ejection fraction: (4) Permanent atrial fibrillation: (5) Diabetes mellitus, type II: (6) HLD (hyperlipidemia): (7) Morbid obesity: (8) REENA (obstructive sleep apnea): (9) Bipolar disorder: (10) Hypokalemia: Plan: per admitting service notes with addendum: COVID-19 Shortness of breath Elevated troponin Hypokalemia - COVID-19 positive, known outpatient test positive since 02/20/2023 - CXR reviewed: Without any acute findings, pt is anticoagulated already so low suspicion for PE. - O2 sats 95% on room a, reports being low at 89% with exertion at home Currently on room air, saturating 96% Chest auscultation clear Decadron discontinued, was also causing hyperglycemia requiring insulin drip Continue [id number] Xopenex/Atrovent, hypertonic saline, and Pulmicort Continue Mucinex Encouraged use of flutter valve and incentive spirometry On Eliquis PT and OT evaluation as patient reporting weakness A-fib HTN CHF, chronic diastolic -Continue home meds - Continue eliquis anticoagulation Diarrhea - already on probiotic, taking macrobid for UTI/obstructive stone chronically since last admission Resolved C. difficile negative UTI/obstructed uropathy - Cr/BUN stable, on macrobid since 02/06 discharge, anticipated to have urology f/u in 4 days, on 03/11, as outpatient to have removed - may need rescheduled based on this admission DM type II -Last A1c 9.3 in September on outpatient epic review, check with am labs - Pt is no longer on ozempic, may continue lantus and ISS while here, Holding metformin 03/10 Patient developed hypoglycemia secondary to Decadron, has been discontinued Was on insulin drip Pharmacy glycemic service consulted REENA on CPAP -Continue at bedtime Obesity -Diet and exercise modification, lifestyle changes encouraged at bedside Bipolar type II -Not on mood stabilizing medications DVT PPx- teds, scds Lines: 2 PIV FEN/GI: Heart healthy/DM diet CODE: Full Dispo: pending PT and OT evaluation Admission and Anticipated Discharge Date Admission Date: March 07, 2023 Subjective Follow-up for COVID-19 infection, weakness, etc. Seen resting at the edge of the bed, comfortable, not in distress States she still having some chest congestion Unable to bring up sputum yet Breathing is okay No abdominal pain, diarrhea anymore No other symptoms Review of Systems Review of Systems: all noted and negative except for above Physical Exam Physical Exam: General- oriented x 3, not in distress, speaks in sentences with no effort or accessory muscle use Eyes- anicteric Neck- no JVD Lungs- clear breath sounds bilaterally, no crackles or wheezing noted, good air entry bilaterally Heart- normal rate, regular rhythm; no murmurs Abdomen- normal bowel sounds, nondistended, soft, nontender Extremities-mild lower leg edema-chronic as per patient, no erythema/tenderness/, no calf tenderness Neuro- alert, oriented x 3; no gross focal neurologic deficits Skin- warm & dry Results & Data Results & Data Vital Signs (Past 12 Hours) Vital Signs Temp Pulse Pulse Resp BP Pulse Ox O2 Del Method 03/10/23 16:38 73 03/10/23 15:22 70 03/10/23 14:56 36.5 C 81 20 169/68 H 92 Room Air 03/10/23 13:49 78 20 93 Room Air, Nasal Cannula 03/10/23 11:08 36.5 C 83 20 115/52 L 93 Room Air 03/10/23 10:00 Room Air 03/10/23 07:58 36.6 C 65 20 159/82 H 92 Room Air 03/10/23 07:48 70 18 94 Room Air 03/10/23 07:46 66 all noted and reviewed including below
[2023-03-10] MEDS ORDERED: LANTUS PER UNIT CHARGE SC ONE (21:00)
[2023-03-10] MEDS: MONTELUKAST SODIUM 10 MG TABLET PO SCH (22:39)
[2023-03-10] MEDS: ATORVASTATIN 40 MG TAB PO SCH (22:41)
[2023-03-10] MEDS: TAMSULOSIN HCL 0.4 MG CAP PO SCH (22:41)
[2023-03-10] MEDS: FAMOTIDINE 20 MG TAB PO SCH (22:42)
[2023-03-11] MEDS: INSULIN ASPART PER UNIT CHARGE SC SCH ×6 (01:51→21:15)
[2023-03-11] MEDS: HYDROCODONE/ACETAMOPHEN 5/325MG TAB PO PRN (01:53)
[2023-03-11] MEDS: BUDESONIDE 0.5 MG/2 ML VIAL (PULMICORT) NEB SCH ×3 (01:58→20:12)
[2023-03-11] MEDS: IPRATROPIUM BROMIDE NEB SOLN 0.02% 2.5 ML VIAL NEB SCH ×2 (01:58→07:52)
[2023-03-11] MEDS: LEVALBUTEROL 1.25 MG/3 ML NEB NEB SCH ×2 (01:58→07:53)
[2023-03-11] MEDS: SODIUM CHLOR 7% 4 ML NEB NEB SCH (08:01)
[2023-03-11 08:02] LABS: Calcium 7.7 mg/dl (8.6-10.3); Creatinine Clr Calc Pharmacy 76.5 ml/min; Est GFR (African American) 66.1 ml/min; Potassium 3.8 mmol/L (3.5-5.1)
[2023-03-11] MEDS ORDERED: LANTUS PER UNIT CHARGE SC ONE ×2 (09:15→12:30)
[2023-03-11] MEDS ORDERED: IPRATROPIUM BROMIDE NEB SOLN 0.02% 2.5 ML VIAL NEB PRN (10:38)
[2023-03-11] MEDS ORDERED: LEVALBUTEROL 1.25 MG/3 ML NEB NEB PRN (10:38)
[2023-03-11] MEDS: APIXABAN 5 MG TABLET PO SCH ×2 (11:54→21:16)
[2023-03-11] MEDS: guaiFENesin 600 MG TABCR PO SCH ×2 (11:54→21:17)
[2023-03-11] MEDS: METOPROLOL SUCC 50MG EXT REL TAB PO SCH ×2 (11:54→21:18)
[2023-03-11] MEDS: BENZONATATE 100 MG CAPSULE PO SCH ×3 (11:54→21:16)
[2023-03-11] MEDS: NITROFURANTOIN MONOHYDRATE 100 MG CAP PO SCH ×2 (11:54→17:21)
[2023-03-11] MEDS: OMEGA-3 (PURIFIED FISH OIL) 1 GM CAP PO SCH (11:55)
[2023-03-11] MEDS: CHOLECALCIFEROL 5,000 UNITS 125 MCG TAB PO SCH (11:55)
[2023-03-11] MEDS: PANTOprazole 40 MG TAB PO SCH (11:55)
[2023-03-11] MEDS: TORSEMIDE 10 MG TAB PO SCH (11:55)
[2023-03-11] MEDS: ADVANCED PROBIOTIC 1250 MG CAPSULE PO SCH (11:55)
[2023-03-11] MEDS: MULTIVITAMIN TAB PO SCH (11:55)
[2023-03-11] MEDS: MAGNESIUM OXIDE 400 MG TAB PO SCH (11:55)
[2023-03-11] MEDS: POTASSIUM CHLORIDE CRTAB 20 MEQ TABCR PO SCH ×2 (11:57→21:21)
--- NOTE | 2023-03-11 14:34 | Pharmacy Report ---
Pharmacy Glycemic Short Note 2 - Date of Service March 11, 2023 - Glycemic Short BSG Results (Last 24 hours): 03/10/23 03/10/23 03/10/23 15:31 16:36 20:08 Glucose POC Glucose 163 H 152 H 249 H 03/11/23 03/11/23 03/11/23 01:37 06:06 06:52 Glucose 175 H POC Glucose 255 H 163 H 03/11/23 03/11/23 08:31 11:37 Glucose POC Glucose 171 H 183 H OUTPATIENT ANTIDIABETIC REGIMEN: * Basaglar 65 units SC BID * Novolog 20-25 units SC BIDM * Metformin 1g PO BIDM * HbA1c: 8.6% (03/08/23) ASSESSMENT: 03/11: * Tiffanie received 686 units of insulin yesterday (200 units basal + 121 units bolus + 321 units of insulin from insulin drip. * Transitioned off of insulin drip yesterday at dinner successful. * Fasting BSG elevated this AM, increase basal dosage by ~10% * Novolog carbohydrate ratio significantly tightened yesterday, will continue to monitor for hypoglycemia. 03/10: * Tiffanie received 617 units of insulin yesterday (200 units basal + 80 units bolus + 337 units from the insulin drip). BSGs better controlled 150-250mg/dL * BSG this AM 131mg/dL. Insulin drip running at 24 units/hr. Increase basal insulin by 20% again today. * Planning to trial a slow transition to basal/bolus today. Will decrease rate slowing and monitor BSGs completely stopping the drip with dinner. Glycemic pharmacist available throughout the process today. * Tightened set carb ratio slightly to help drip transition. Will initiate correctional factor at previously effective level and use current carbohydrate ratio with dinner. 03/09: * Tiffanie received 478 units of insulin yesterday (175 units basal + 142 units bolus + 161 units from insulin drip). BSGs remained in to 200-300 mg/dL range all day. * BSG this AM down to 139 mg/dL. Insulin drip running at 13.9 units/hr. Will increase basal by 15% today because Dexamethasone has been put on hold for the time being. Hope is that increasing basal will help to bring drip rate down where we can safely discontinue it. * Continuing with set carb ratio on drip calculator of 1 units of insulin for every 2 g of CHO consumed. * Potassium a little low this AM at 3.3 so recommended supplementation. PO KCl ordered by provider. * Patient is familiar to our service. During previous admissions, high amounts of insulin required and snacked often times between meals leading to inaccurate BSGs. 03/08: * CF is a 72 year old female who presented to ED on 03/07/23 w/ worsening shortness of breath. Patient is positive for COVID-19. * Pertinent PMH includes T2DM (w/ history of profound insulin resistance while inpatient), obesity, HTN, and CHF * Dexamethasone 6 mg IV daily ordered ongoing, BSGs increased overnight > 400 mg/dL after first dose * Attempted to avoid insulin infusion this morning with large dose of basal, but lunchtime BSG still above > 300 mg/dL. Will initiate insulin infusion. * Of note, patient was requiring >300 units of insulin last admission w/ no steroids ordered * Home basal dose of 130 units/day + 0.4 unit/kg to account for steroids (~60 units) = ~190 units/day of basal. Will give slight reduction today. PLAN FOR INPATIENT GLYCEMIC CONTROL: * Hold outpatient oral diabetes medications * Basal insulin * Lantus 125 units SC QAM * Lantus 100 units SC HS * Correctional Insulin: Novolog Correction per scale ACHS or Q4H while NPO * Goal Range: Low 110 mg/dL - High 140 mg/dL * Correction Factor: 5 mg/dL/unit * Carbohydrate Ratio: 1 unit per 1g CHO
--- NOTE | 2023-03-11 15:06 | Hospitalist Progress Note ---
Date of Service March 11, 2023 Assessment & Plan (1) COVID-19: (2) Elevated troponin: (3) REID (dyspnea on exertion): Plan: (1) COVID-19: (2) Elevated troponin: (3) Chronic heart failure with preserved ejection fraction: (4) Permanent atrial fibrillation: (5) Diabetes mellitus, type II: (6) HLD (hyperlipidemia): (7) Morbid obesity: (8) REENA (obstructive sleep apnea): (9) Bipolar disorder: (10) Hypokalemia: Plan: per admitting service notes with addendum: COVID-19 Shortness of breath Elevated troponin Hypokalemia - COVID-19 positive, known outpatient test positive since 02/20/2023 - CXR reviewed: Without any acute findings, pt is anticoagulated already so low suspicion for PE. - O2 sats 95% on room a, reports being low at 89% with exertion at home Currently on room air, saturating 96% Chest auscultation clear Decadron discontinued, was also causing hyperglycemia requiring insulin drip Continue [id number] Xopenex/Atrovent, hypertonic saline, and Pulmicort Continue Mucinex Encouraged use of flutter valve and incentive spirometry On Eliquis A-fib HTN CHF, chronic diastolic -Continue home meds - Continue eliquis anticoagulation Diarrhea - already on probiotic, taking macrobid for UTI/obstructive stone chronically since last admission Resolved C. difficile negative UTI/obstructed uropathy - Cr/BUN stable, on macrobid since 02/06 discharge, anticipated to have urology f/u in 4 days, Will need follow-up as outpatient DM type II -Last A1c 9.3 in September on outpatient epic review, - Pt is no longer on ozempic, may continue lantus and ISS while here, Holding metformin REENA on CPAP -Continue at bedtime Obesity -Diet and exercise modification, lifestyle changes encouraged at bedside Bipolar type II -Not on mood stabilizing medications DVT PPx- teds, scds Lines: 2 PIV FEN/GI: Heart healthy/DM diet CODE: Full Dispo: Patient reports weakness given the recent hospitalization. She is considering to go to rehab. Case management on board; appreciate recommendation Please note the above document was generated using voice recognition software. It may contain grammatical, syntax or spelling errors. Any formal questions or concerns about the content, text or information contained within the body of this dictation should be directly addressed to the provider for clarification Admission and Anticipated Discharge Date Admission Date: March 07, 2023 Subjective Patient seen and examined at bedside. She is alert oriented x3; She is in room air. She reports ongoing weakness. Review of Systems Review of Systems: All systems reviewed & are unremarkable except as noted in Subjective Physical Exam Physical Exam: Constitutional: Alert oriented x3, not in distress. Morbidly obese. Respiratory: normal respiratory effort, lungs clear to auscultation, no wheeze, rales, rhonchi. Normal insp/exp effort, no accessory muscle use Cardiovascular: RRR, no murmur, no edema Vessels: no JVD or carotid bruit Chest: normal inspection of chest Abdomen: normal bowel sounds, soft, nontender, no hepatosplenomegaly Musculoskeletal: no cyanosis or clubbing, extremities motor strength 5/5 Skin: no rashes, warm and dry normal turgor Neurologic: PERRL, EOMI, accommodation nl, no face palsy, no dysarthria CN's II- XI intact bilaterally and moves all extremities Psychiatric: A+Ox3, euthymic affect Results & Data Results & Data Vital Signs (Past 12 Hours) Vital Signs Temp Pulse Pulse Resp BP BP Pulse Ox 03/11/23 10:48 36.7 C 64 16 142/64 H 92 03/11/23 10:00 03/11/23 07:55 78 18 93 03/11/23 07:49 36.7 C 61 16 141/65 H 90 03/11/23 07:42 63 03/11/23 03:27 36.6 C 76 20 145/61 H 93 O2 Del Method 03/11/23 10:48 Room Air 03/11/23 10:00 Room Air 03/11/23 07:55 Room Air 03/11/23 07:49 Room Air 03/11/23 07:42 03/11/23 03:27 Room Air Laboratory Results Laboratory Results WBC 6.96 K/ul (4.8-10.8) 03/08/23 04:13 RBC 3.76 M/uL (4.20-5.40) L 03/08/23 04:13 Hgb 10.3 g/dl (12.0-16.0) L 03/08/23 04:13 Hct 32.6 % (37.0-47.0) L 03/08/23 04:13 MCV 86.7 fL (80.0-100.0) 03/08/23 04:13 MCH 27.4 pg (25.0-34.0) 03/08/23 04:13 MCHC 31.6 g/dL (32.0-36.0) L 03/08/23 04:13 RDW Std Deviation 51.5 fL (36.4-46.3) H 03/08/23 04:13 RDW Coeff of [place] 16.3 % (11.5-14.5) H 03/08/23 04:13 Plt Count 211 K/uL (130-400) 03/08/23 04:13 MPV 11.3 fL (9.4-12.4) 03/08/23 04:13 Immature Gran % (Auto) 0.4 % 03/08/23 04:13 Neut % (Auto) 72.7 % 03/08/23 04:13 Lymph % (Auto) 20.7 % 03/08/23 04:13 Will[place] % (Auto) 5.9 % 03/08/23 04:13 Eos % (Auto) 0.0 % 03/08/23 04:13 Baso % (Auto) 0.3 % 03/08/23 04:13 Neut # (Auto) 5.06 K/uL (1.40-6.50) 03/08/23 04:13 Lymph # (Auto) 1.44 K/uL (1.20-3.40) 03/08/23 04:13 Willacy # (Auto) 0.41 K/uL (0.11-0.59) 03/08/23 04:13 Eos # (Auto) 0.00 K/uL (0.00-0.50) 03/08/23 04:13 Baso # (Auto) 0.02 K/uL (0.00-0.20) 03/08/23 04:13 Immature Gran # (Auto) 0.03 K/uL (0.01-0.20) 03/08/23 04:13 PT 12.7 Seconds (9.0-12.0) H 03/07/23 09:22 INR 1.2 (0.9-1.1) H 03/07/23 09:22 APTT 29.3 Seconds (21.0-31.0) 03/07/23 09:22 PTT Ratio 1.0 03/07/23 09:22 VBG pH 7.43 (7.36-7.41) H 03/07/23 09:35 VBG pCO2 35 mmHg (38-50) L 03/07/23 09:35 VBG pO2 64 mmHg 03/07/23 09:35 VBG HCO3 23 mmol/L 03/07/23 09:35 VBG O2 Saturation 92.6 % 03/07/23 09:35 VBG Base Excess -0.6 mEq/L 03/07/23 09:35 Sodium 141 mmol/L (136-145) 03/11/23 06:52 Potassium 3.8 mmol/L (3.5-5.1) 03/11/23 06:52 Chloride 106 mmol/L (98-107) 03/11/23 06:52 Carbon Dioxide 25 mmol/L (21-32) 03/11/23 06:52 Anion Gap 10 (3-11) 03/11/23 06:52 BUN 25 mg/dl (6-23) H 03/11/23 06:52 Creatinine 1.00 mg/dl (0.6-1.2) 03/11/23 06:52 Est Cr Clr Drug Dosing 76.5 ml/min 03/11/23 06:52 Est GFR ( Amer) 66.1 ml/min 03/11/23 06:52 Est GFR (Non-Af Amer) 57.0 ml/min 03/11/23 06:52 BUN/Creatinine Ratio 25.0 (10-20) H 03/11/23 06:52 Glucose 175 mg/dl (70-99(Fasting)) H 03/11/23 06:52 POC Glucose 183 mg/dl (70-99) H 03/11/23 11:37 Estimat Average Glucose 200 mg/dl 03/08/23 04:13 Hemoglobin A1c 8.6 % (4.5-5.6) H 03/08/23 04:13 Calcium 7.7 mg/dl (8.6-10.3) L 03/11/23 06:52 Total Bilirubin 0.9 mg/dl (0.2-1.0) 03/07/23 09:37 AST 22 U/L (13-39) 03/07/23 09:37 ALT 22 U/L (7-52) 03/07/23 09:37 Alkaline Phosphatase 64 U/L (34-104) 03/07/23 09:37 Troponin I High Sens 15.6 pg/ml (0-14) H 03/07/23 19:05 C-Reactive Protein 0.59 mg/dl (0-0.5) H 03/07/23 14:36 B-Natriuretic Peptide 96 pg/ml (0-100) 03/07/23 09:22 Total Protein 6.1 gm/dl (6.0-8.3) 03/07/23 09:37 Albumin 3.4 gm/dl (3.4-5.0) 03/07/23 09:37 Globulin 2.7 gm/dl (2.5-4.0) 03/07/23 09:37 Albumin/Globulin Ratio 1.3 (0.9-2) 03/07/23 09:37 Procalcitonin < 0.05 ng/ml (0-0.5) 03/07/23 14:36 Stl C. diff Tox B Gene Negative Cdiff Gene (Neg) 03/08/23 00:50 SARS-CoV-2, RNA, NAAT POSITIVE (NEGATIVE) A* 03/07/23 09:22 Impressions Chest X-Ray 03/07/23 08:51 XR chest 1V portable CLINICAL HISTORY: Chest pain, nonspecific COMPARISON STUDY: Chest radiograph and chest CT January 23, 2023. FINDINGS: No pneumothorax or pleural effusion is present. Moderate cardiomegaly is again noted. There is no evidence for pulmonary edema. There is no consolidation to suggest pneumonia. IMPRESSION: No acute cardiopulmonary findings. Stable cardiomegaly. ACT 112: Negative or not required by law. Electronically signed by: Hola Méndez M.D. 03/07/2023 9:32 AM
--- NOTE | 2023-03-11 15:24 | Electrocardiogram Report ---
Test Reason : Blood Pressure : / mmHG Vent. Rate : 077 BPM Atrial Rate : 163 BPM P-R Int : 000 ms QRS Dur : 116 ms QT Int : 672 ms P-R-T Axes : 000 -13 069 degrees QTc Int : 760 ms Atrial fibrillation with premature ventricular or aberrantly conducted complexes Low voltage QRS Right bundle branch block Marked ST abnormality, possible lateral subendocardial injury Abnormal ECG When compared with ECG of 07-MAR-2023 09:12, ST less depressed in Lateral leads T wave inversion less evident in Anterior leads QT has lengthened Confirmed by Tor Zruita ([id number]) on 03/11/2023 3:24:40 PM Referred By: REFERRED SELF Confirmed By:Tor Zurita
[2023-03-11] MEDS: DIGOXIN 0.25 MG TAB PO SCH (17:16)
[2023-03-11] MEDS ORDERED: LANTUS PER UNIT CHARGE SC SCH ×3 (21:00)
[2023-03-11] MEDS: ATORVASTATIN 40 MG TAB PO SCH (21:17)
[2023-03-11] MEDS: TAMSULOSIN HCL 0.4 MG CAP PO SCH (21:18)
[2023-03-11] MEDS: FAMOTIDINE 20 MG TAB PO SCH (21:18)
[2023-03-11] MEDS: MONTELUKAST SODIUM 10 MG TABLET PO SCH (21:18)
[2023-03-12] MEDS: HYDROCODONE/ACETAMOPHEN 5/325MG TAB PO PRN (02:11)
[2023-03-12] MEDS ORDERED: HYDROcodone/HOMATROPINE SYRUP 5MG/1.5MG 5ML UDP PO PRN (02:21)
[2023-03-12] MEDS: BUDESONIDE 0.5 MG/2 ML VIAL (PULMICORT) NEB SCH (07:48)
[2023-03-12 08:52] LABS: BUN Creatinine Ratio 26.9 (10-20); Calcium 7.8 mg/dl (8.6-10.3); Creatinine Clr Calc Pharmacy 82.4 ml/min; Est GFR (African American) 72.2 ml/min; Est GFR (Non-African American) 62.3 ml/min
[2023-03-12] MEDS ORDERED: LANTUS PER UNIT CHARGE SC SCH (09:00)
[2023-03-12] MEDS: INSULIN ASPART PER UNIT CHARGE SC SCH ×3 (09:08→17:51)
[2023-03-12] MEDS: POTASSIUM CHLORIDE CRTAB 20 MEQ TABCR PO SCH (09:20)
[2023-03-12] MEDS: PANTOprazole 40 MG TAB PO SCH (09:21)
[2023-03-12] MEDS: CHOLECALCIFEROL 5,000 UNITS 125 MCG TAB PO SCH (09:21)
[2023-03-12] MEDS: ADVANCED PROBIOTIC 1250 MG CAPSULE PO SCH (09:21)
[2023-03-12] MEDS: METOPROLOL SUCC 50MG EXT REL TAB PO SCH (09:21)
[2023-03-12] MEDS: MULTIVITAMIN TAB PO SCH (09:21)
[2023-03-12] MEDS: OMEGA-3 (PURIFIED FISH OIL) 1 GM CAP PO SCH (09:21)
[2023-03-12] MEDS: APIXABAN 5 MG TABLET PO SCH (09:22)
[2023-03-12] MEDS: TORSEMIDE 10 MG TAB PO SCH (09:22)
[2023-03-12] MEDS: guaiFENesin 600 MG TABCR PO SCH (09:22)
[2023-03-12] MEDS: NITROFURANTOIN MONOHYDRATE 100 MG CAP PO SCH ×2 (09:23→17:27)
[2023-03-12] MEDS: BENZONATATE 100 MG CAPSULE PO SCH ×2 (10:42→13:12)
[2023-03-12] MEDS: DOCUSATE SODIUM 100 MG CAP PO PRN (10:42)
[2023-03-12] MEDS ORDERED: LANTUS PER UNIT CHARGE SC ONE (11:30)
--- NOTE | 2023-03-12 13:04 | Discharge Summary ---
Date of Service March 12, 2023 Admission HPI Per Admitting Provider This is a 72-year-old female with PMHx of COPD, HTN, HLD, chronic diastolic CHF, DM type II, morbid obesity, bipolar type II, history of CVA and REENA on CPAP who presents to the hospital with acute worsening shortness of breath.The patient tested positive for COVID +19 on 02/20. She has had difficulty with shortness of breath since that point in time also with complaints of feeling weak, lightheaded and fatigued. She was previously admitted here for UTI/obstructing uropathy on at the hospital on 01/23 and was discharged to [facility] on 02/05, stayed there until 02/16, and was discharged home, then tested positive for covid at home on 02/20. She lives in an apartment and reports that she can walk about 10 steps before feeling winded. She is using a pulse ox to test, and is at the lowest at 89% on exertion, and then is at 95% at rest after a few minutes sitting down. Pt does not use supplemental O2 at baseline, but wears Cpap HS routinely. She has residual symptoms including cough, with white mucous, no hemoptysis. Denies fever, chills, but has been sweaty with exertion, denies cp/heaviness. Pt has had intermittent nausea on and off, and is c/o diarrhea and constipation which has been going on since her last hospitalization, it is no worse. Her last BM was today, which was yellow and has bowel cramping. She has hx of having c diff years ago in 2012, and was treated with IV antibiotics during that last hospitalization for UTI and obstructing stone, for which she is still on Macrobid currently. She is scheduled to have the surgery on on the 03/11/[address] Ventura for lithotripsy. Pt lives at home with her . Pt missed all her morning medications today. Admission Exam Per Admitting Provider General: awake, alert, no apparent distress, + morbidly obese white female Head: Normocephalic, atraumatic ENT: PERRL, EOMI, no pharyngeal exudate, mucous membranes moist Chest: Clear to auscultation, on room air with sats at 95%, no adventitious breath sounds, slightly diminished at bases, possibly sounds diminished due to body habitus Cardiac: irregularly irregular, rate controlled, no murmur, no JVD, normal peripheral pulses, good capillary refill Abdominal: NABS x 4 quadrants, soft, nondistended, nontender to palpation, no rebound or guarding Extremities: + trace peripheral edema BLE, slight erythema but appears chronic and not bright red, no warmth, calfs nontender to palpation Psych: Normal mood and affect Neuro: AAO x 3, strength intact bilaterally and rated 5/5, no motor deficits, speech is clear, no peripheral sensory deficits Principal Diagnosis 1) COVID-19: (2) Elevated troponin: (3) REID (dyspnea on exertion): Plan: (1) COVID-19: (2) Elevated troponin: (3) Chronic heart failure with preserved ejection fraction: (4) Permanent atrial fibrillation: (5) Diabetes mellitus, type II: (6) HLD (hyperlipidemia): (7) Morbid obesity: (8) REENA (obstructive sleep apnea): (9) Bipolar disorder: (10) Hypokalemia Discharge Exam Constitutional: Alert oriented x3, not in distress. Morbidly obese. Respiratory: normal respiratory effort, lungs clear to auscultation, no wheeze, rales, rhonchi. Normal insp/exp effort, no accessory muscle use Cardiovascular: RRR, no murmur, no edema Vessels: no JVD or carotid bruit Chest: normal inspection of chest Abdomen: normal bowel sounds, soft, nontender, no hepatosplenomegaly Musculoskeletal: no cyanosis or clubbing, extremities motor strength 5/5 Skin: no rashes, warm and dry normal turgor Neurologic: PERRL, EOMI, accommodation nl, no face palsy, no dysarthria CN's II- XI intact bilaterally and moves all extremities Psychiatric: A+Ox3, euthymic affect Discharge Data Allergies Allergy/AdvReac Type Severity Reaction Status Date / Time Cephalosporins Allergy Intermediate RASH Verified 03/07/23 12:54 Sulfa (Sulfonamide Allergy Intermediate "Sulfa Verified 03/07/23 12:54 Antibiotics) Drugs = rash" terconazole Allergy Intermediate ITCHING, Verified 03/07/23 12:54 BURNING clarithromycin Allergy Unknown UNKNOWN Verified 03/07/23 12:54 clavulanic acid Allergy Unknown UNKNOWN Verified 03/07/23 12:54 clobetasol Allergy Unknown Unknown Verified 03/07/23 12:54 adhesive AdvReac Mild BAND-AIDS Verified 12/02/23 12:54 = SKIN IRRITATION Consultations 03/07/23 10:41 ED Decision to Admit Stat Hospital Course (1) COVID-19: (2) Elevated troponin: (3) REID (dyspnea on exertion): (1) COVID-19: (2) Elevated troponin: (3) Chronic heart failure with preserved ejection fraction: (4) Permanent atrial fibrillation: (5) Diabetes mellitus, type II: (6) HLD (hyperlipidemia): (7) Morbid obesity: (8) REENA (obstructive sleep apnea): (9) Bipolar disorder: (10) Hypokalemia: Plan: per admitting service notes with addendum: COVID-19 Shortness of breath Elevated troponin Hypokalemia - COVID-19 positive, known outpatient test positive since 02/20/2023 - CXR reviewed: Without any acute findings, pt is anticoagulated already so low suspicion for PE. - O2 sats 95% on room a, reports being low at 89% with exertion at home At Discharge, patient was in room air, saturating 96% Chest auscultation clear Decadron discontinued, was also causing hyperglycemia requiring insulin drip Follow-up with PCP A-fib HTN CHF, chronic diastolic - Continue eliquis anticoagulation Diarrhea - already on probiotic, taking macrobid for UTI/obstructive stone chronically since last admission Resolved C. difficile negative UTI/obstructed uropathy - Cr/BUN stable, on macrobid since 02/06 discharge, anticipated to have urology f/u in 4 days, Will need follow-up as outpatient DM type II -Last A1c 9.3 in September on outpatient epic review, - Pt is no longer on ozempic, may continue lantus and ISS while here, Holding metformin REENA on CPAP -Continue at bedtime Obesity -Diet and exercise modification, lifestyle changes encouraged at bedside Bipolar type II -Not on mood stabilizing medications Patient discharged home with instruction to follow-up with PCP Please note the above document was generated using voice recognition software. It may contain grammatical, syntax or spelling errors. Any formal questions or concerns about the content, text or information contained within the body of this dictation should be directly addressed to the provider for clarification Total Time Total Time Spent Total Time Spent (In Minutes): 35 Total Time Includes: Examination of the Patient, Discharge Planning, Medication Reconciliation, Communication With Other Providers and Other Discharge Plan Discharge Items Patient Disposition: Home - Self-Care Reason For Visit: COVID Discharge Diagnosis: COVID-19 infection Activity: Resume your previous activity Non-emergency contact: Primary Care Provider Call non-emergency contact if: you have any medication questions and your symptoms worsen Follow-up/Referrals: Sabine Mosley DO [Primary Care Provider] - (Date & Time 03/20/2023 11:10 AM Provider Sabine Mosley DO Department [facility] ) Diet: Regular Addtl Attending Provider Instructions: You were admitted to the hospital due to COVID-19 infection. Chest x-ray did not show any pneumonia. Please follow-up with your primary care doctor after discharge. Please continue physical therapy and Occupational Therapy at home. Please call urology regarding your appointment. Pending Studies at Discharge: No Stand-Alone Forms: [employer], Smoking Cessation Medications and DC Order Prescriptions: New benzonatate 100 mg Capsule 100 mg PO TID PRN (Reason: cough) Qty: 20 0RF Continued nitrofurantoin monohyd/m-cryst [Macrobid] 100 mg capsule 100 mg PO BID 10 Days Qty: 20 0RF Rx Instructions: must administer with a meal/food. Start Date 03/02/23 - End Date 03/12/23 levalbuterol HCl 0.63 mg/3 mL Solution For Nebulization 0.63 mg INHALATION Q4 PRN (Reason: Wheezing) hydrocodone-acetaminophen 5-325 mg tablet 1 tab PO Q6 PRN (Reason: Pain) hydrocortisone acetate 25 mg suppository 25 mg MD BID PRN (Reason: Hemorrhoids) famotidine 20 mg tablet 20 mg PO QPM tamsulosin 0.4 mg capsule 0.4 mg PO HS baclofen 10 mg Tablet 10 mg PO BID PRN (Reason: Muscle Pain) pantoprazole 40 mg tablet,delayed release (DR/EC) 40 mg PO QAM metformin 1,000 mg tablet 1,000 mg PO BID triamcinolone acetonide 0.1 % Ointment 1 applic TOPICAL BID PRN (Reason: .flare ups) nystatin-triamcinolone 100,000-0.1 unit/g-% cream 1 applic TOPICAL BID PRN (Reason: .flare ups) montelukast 10 mg Tablet 10 mg PO QPM nystatin 100,000 unit/gram powder 1 applic TOPICAL BID Rx Instructions: Apply 0.5 g to groin ipratropium bromide 21 mcg (0.03 %) spray,non-aerosol 2 spray INTRANASAL [facility] insulin aspart U-100 [Novolog FlexPen U-100 Insulin] 100 unit/mL (3 mL) insulin pen 20 - 25 unit SUBCUT BIDM insulin glargine [Basaglar KwikPen U-100 Insulin] 100 unit/mL (3 mL) insulin pen 65 unit SUBCUT BID Eliquis 5 mg Tablet 5 mg PO BID atorvastatin 40 mg tablet 40 mg PO QPM albuterol sulfate 90 mcg/actuation HFA aerosol inhaler 2 inh INHALATION Q4H PRN (Reason: Shortness Of Breath Or Wheezing) metoprolol succinate 100 mg tablet extended release 24 hr 100 mg PO BID Qty: 60 0RF polyethylene glycol 3350 [Miralax] 17 gram Powder In Packet 17 g PO DAILY PRN (Reason: constipation) Qty: 30 0RF torsemide 10 mg Tablet 20 mg PO QAM Qty: 30 0RF magnesium oxide 400 mg (241.3 mg magnesium) Tablet 400 mg PO DAILY@1200 Qty: 30 0RF phenazopyridine [Pyridium] 100 mg Tablet 100 mg PO TID PRN (Reason: dysuria) Qty: 30 0RF docusate sodium [Colace] 100 mg capsule 100 mg PO BID PRN (Reason: constipation) Qty: 60 0RF digoxin 250 mcg (0.25 mg) tablet 0.25 mg PO QAM multivitamin Tablet 1 tab PO QAM cholecalciferol (vitamin D3) [Vitamin D3] 125 mcg (5,000 unit) Tablet 125 mcg PO QAM [place]-3 Capsule 1,000 mg PO QAM Discharge Orders: Discharge Order (Routine); Ordered 03/12/23 Ordered By: Deuce Cullen/Other Patient Handouts: Managing Type 2 Diabetes Admission Data Admit Date/Time: 03/07/23 12:53 Attending Provider: Deuce Harvey Admit Provider: Kj Martinez Primary Care Provider: Sabine Mosley Other Providers: Kj Martinez; Denilson Apple; [facility]; [facility]
[2023-03-12] MEDS: MAGNESIUM OXIDE 400 MG TAB PO SCH (13:12)
[2023-03-12] MEDS: DIGOXIN 0.25 MG TAB PO SCH (17:25)
== END 2023-03-12 19:15 | disposition home health service (06) | DRG 178 ==
LOC: ED 08:19 → SUATTDRO 12:53 → EDINP 12:53 → 2N 03-09 15:29

== ENCOUNTER 2023-04-08 13:52 | Inpatient (IN) ==
--- NOTE | 2023-04-08 13:55 | ED Triage Note ---
Date of Service April 08, 2023 Provider in Triage Author: Eulalia Moran History of Present Illness This patient was briefly evaluated while in triage. An abbreviated physical exam was performed. This patient is a 72-year-old Female who presents to the ED for evaluation of SOB with exertion x few days was having sharp left chest pains when home health aid was present, so was sent by nurse hx of CHF, COPD, Afib had COVID in February Physical Exam GENERAL: NAD CARDIOVASCULAR: RRR RESPIRATORY: CTA ABDOMEN: BS x 4. Nontender to palpation. Initial orders for labs and / or imaging were placed and patient was placed in the waiting area until a bed is available. Please see further documentation for the full ED course.
--- NOTE | 2023-04-08 15:55 | XRay Report ---
XR chest 2V PA/lateral HISTORY: 72 years-old Female Dyspnea COMPARISON: 03/07/2023 TECHNIQUE: PA and lateral views of the chest FINDINGS: Cardiac silhouette is enlarged. Pulmonary vascular congestion with interstitial coarsening. Atheroscl erosis of aorta. No pneumothorax or pleural effusion. Mild linear bibasilar subsegmental densities. IMPRESSION: 1. Cardiomegaly with pulmonary vascular congestion. 2. Mild linear bibasilar opacities favor atelectasis. ACT 112: Negative or not required by law. The above report was generated using voice recognition software. It may contain grammatical, syntax o r spelling errors. Electronically signed by: Gilbert Foster M.D. 04/08/2023 3:53 PM
[2023-04-08 16:35] LABS: Appearance Urine Turbid (Clear); Bacteria Urine Automated Negative (Negative); Blood Urine 3+ (Negative); Color Urine Orange; Epithelial Cell Urine Auto 20-30 /lpf (0-5); Glucose Urine UA 3+ (Negative); Ketones Urine Negative (Negative); Leukocyte Esterase Urine 1+ (Negative); Nitrite Urine Positive (Negative); Protein Urine 2+ (Negative); Specific Gravity Urine 1.022 (1.000-1.030); Urobilinogen Urine Negative (Negative); WBC Urine Automated >30 /hpf (0-5)
[2023-04-08 16:37] LABS: Basophils # (auto) 0.06 K/uL (0.00-0.20); Basophils % (auto) 0.8 %; Eosinophils # (auto) 0.21 K/uL (0.00-0.50); Eosinophils % (auto) 2.8 %; Hematocrit (blood only) 30.8 % (37.0-47.0); Hemoglobin 9.2 g/dl (12.0-16.0); Immature Granulocytes # (auto) 0.06 K/uL (0.01-0.20); Immature Granulocytes % (auto) 0.8 %; Lymphocytes # (auto) 2.16 K/uL (1.20-3.40); Lymphocytes % (auto) 29.1 %; Mean Corpuscular Hemoglobin 25.4 pg (25.0-34.0); Mean Corpuscular Hgb Conc 29.9 g/dL (32.0-36.0); Mean Corpuscular Volume 85.1 fL (80.0-100.0); Mean Platelet Volume 11.2 fL (9.4-12.4); Monocytes # (auto) 0.81 K/uL (0.11-0.59); Monocytes % (auto) 10.9 %; Neutrophils # (auto) 4.12 K/uL (1.40-6.50); Neutrophils % (auto) 55.6 %; Platelet Count 227 K/uL (130-400); RDW Coefficient of Variation 15.8 % (11.5-14.5); RDW Standard Deviation 49.2 fL (36.4-46.3); Red Blood Count 3.62 M/uL (4.20-5.40); White Blood Count 7.42 K/ul (4.8-10.8)
[2023-04-08 16:51] LABS: Bilirubin Urine 1+ (Negative)
[2023-04-08 17:02] LABS: Alanine Aminotransferase 24 U/L (7-52); Albumin Globulin Ratio 1.2 (0.9-2); Albumin Level 3.7 gm/dl (3.4-5.0); Alkaline Phosphatase 91 U/L (34-104); Anion Gap 9 (3-11); Aspartate Aminotransferase 23 U/L (13-39); BUN Creatinine Ratio 25.9 (10-20); Bilirubin,Total 0.7 mg/dl (0.2-1.0); Blood Urea Nitrogen 21 mg/dl (6-23); Carbon Dioxide 23 mmol/L (21-32); Chloride 104 mmol/L (98-107); Est GFR (African American) 85.3 ml/min; Est GFR (Non-African American) 73.6 ml/min; Glucose 311 mg/dl (70-99(Fasting)); Potassium 4.5 mmol/L (3.5-5.1); Sodium 136 mmol/L (136-145); Total Protein 6.7 gm/dl (6.0-8.3); Troponin I High Sensitivity 5.9 pg/ml (0-14)
[2023-04-08 17:21] LABS: RBC Urine Automated >30 /hpf (0-4)
[2023-04-08 17:29] LABS: Partial Thromboplastin Time 28 Seconds (21-31); Prothrombin Time 11.3 Seconds (9.0-12.0)
[2023-04-08] MEDS ORDERED: FAMOTIDINE 20 MG TAB PO ONE (22:30)
[2023-04-08] MEDS ORDERED: METOPROLOL SUCC 50MG EXT REL TAB PO STA (22:30)
[2023-04-08] MEDS ORDERED: APIXABAN 5 MG TABLET PO STA (22:30)
[2023-04-08] MEDS ORDERED: ATORVASTATIN 40 MG TAB PO STA (22:30)
[2023-04-08] MEDS ORDERED: MONTELUKAST SODIUM 10 MG TABLET PO ONE (22:30)
--- NOTE | 2023-04-08 22:42 | History & Physical Report ---
Date of Service April 08, 2023 Assessment & Plan (1) Acute heart failure with preserved ejection fraction (HFpEF): Plan: 72-year-old female with past med history significant for type 2 diabetes, hyperlipidemia, COPD, obstructive sleep apnea on CPAP, chronic diastolic CHF, history of CVA, longstanding persistent atrial fibrillation, hypertension, morbid obesity, GERD, bipolar 2 disorder, depression, former smoker presents with ongoing shortness of breath for last few days. Walking short distance making her short of breath. She ambulates with walker. States having on and off stabbing chest pains. Currently there is no chest pain. She states she drank 2 gallons of milk in 2 days and wondering whether it could be contributing to her symptoms. Has some headache and neck pain. Vision is okay. No runny nose or sore throat. No cough. No fevers. Currently no nausea. No abdominal pain. Normal bowel and bladder movements. Legs are somewhat swollen but she thinks they are better than last time. She is sleeps in elevated bed. Acute heart failure with preserved ejection fraction chest x-ray mild congestion Has lower extremity edema Will do IV Lasix 40 mg twice daily Daily weights and I's and O's S/p Miller Monitoring in telemetry Will follow echo Consult cardiology in a.m. On and off chest pains Initial troponin negative EKG no acute findings Will follow serial enzymes and echo Recent UTI On ampicillin started on 03/12/2023 for 1 week We will follow cultures Obstructive sleep apnea CPAP nightly History of COPD Continue home inhalers Diabetes Currently n.p.o. We will cut back on Lantus to 30 units twice daily and insulin sliding scale We will follow blood sugars and HbA1c levels Glycemic pharmacy consult History of atrial fibrillation Rate control with metoprolol succinate and digoxin On Eliquis Hyperlipidemia On statin Hypertension On metoprolol, diuretics Will monitor GERD On Protonix and Pepcid DVT prophylaxis On Eliquis Disposition Telemetry floor Full code History of Present Illness Chief Complaint: Shortness of breath Primary Care Provider: Sabine Mosley, 72-year-old female with past med history significant for type 2 diabetes, hyperlipidemia, COPD, obstructive sleep apnea on CPAP, chronic diastolic CHF, history of CVA, longstanding persistent atrial fibrillation, hypertension, morbid obesity, GERD, bipolar 2 disorder, depression, former smoker presents with ongoing shortness of breath for last few days. Walking short distance making her short of breath. She ambulates with walker. States having on and off stabbing chest pains. Currently there is no chest pain. She states she drank 2 gallons of milk in 2 days and wondering whether it could be contributing to her symptoms. Has some headache and neck pain. Vision is okay. No runny nose or sore throat. No cough. No fevers. Currently no nausea. No abdominal pain. Normal bowel and bladder movements. Legs are somewhat swollen but she thinks they are better than last time. She is sleeps in elevated bed. Past medical history. As mentioned above Past surgical history. Right breast biopsy. Colonoscopy cystoscopy tonsillectomy. Repair of nasal septum. Total abdominal hysterectomy with removal of tubes. Family history. Father has chronic rhinitis. COPD. Cancer. Nasal issues. Mother had breast cancer. Maternal grandmother had diabetes. Paternal grandmother had diabetes Social history. . Quit smoking 12/2012. Smoked 2 packs a day for 30 years. No alcohol use. No drug use. Allergies Allergy/AdvReac Type Severity Reaction Status Date / Time Cephalosporins Allergy Intermediate RASH Verified 03/07/23 12:54 Sulfa (Sulfonamide Allergy Intermediate "Sulfa Verified 03/07/23 12:54 Antibiotics) Drugs = rash" terconazole Allergy Intermediate ITCHING, Verified 03/07/23 12:54 BURNING clarithromycin Allergy Unknown UNKNOWN Verified 03/07/23 12:54 clavulanic acid Allergy Unknown UNKNOWN Verified 03/07/23 12:54 clobetasol Allergy Unknown Unknown Verified 03/07/23 12:54 adhesive AdvReac Mild BAND-AIDS Verified 03/07/23 12:54 = SKIN IRRITATION Home Medications Medication Instructions Recorded Confirmed Type albuterol sulfate 90 mcg/actuation 2 inh inhalation Q4H PRN Shortness 01/23/23 04/08/23 History aerosol inhaler Of Breath Or Wheezing apixaban 5 mg tablet (Eliquis) 5 mg PO BID 01/23/23 04/08/23 History atorvastatin 40 mg tablet 40 mg PO QPM 01/23/23 04/08/23 History baclofen 10 mg tablet 10 mg PO BID PRN Muscle Pain 01/23/23 04/08/23 History famotidine 20 mg tablet 20 mg PO QPM 01/23/23 04/08/23 History hydrocodone 5 mg-acetaminophen 325 1 tab PO Q6 PRN Pain 01/23/23 04/08/23 History mg tablet hydrocortisone acetate 25 mg 25 mg TN BID PRN Hemorrhoids 01/23/23 04/08/23 History rectal suppository insulin aspart U-100 100 unit/mL 20 - 25 unit subcut BIDM 01/23/23 04/08/23 History (3 mL) subcutaneous pen (Novolog FlexPen U-100 Insulin aspart) insulin glargine 100 unit/mL (3 65 unit subcut BID 01/23/23 04/08/23 History mL) subcutaneous pen (Basaglar KwikPen U-100 Insulin) ipratropium bromide 21 mcg (0.03 2 spray intranasal AMHS 01/23/23 04/08/23 History %) nasal spray levalbuterol HCl 0.63 mg/3 mL 0.63 mg inhalation Q4 PRN Wheezing 01/23/23 04/08/23 History solution for nebulization metformin 1,000 mg tablet 1,000 mg PO BID 01/23/23 04/08/23 History montelukast 10 mg tablet 10 mg PO QPM 01/23/23 04/08/23 History nystatin 100,000 unit/gram topical 1 applic topical BID 01/23/23 04/08/23 History powder nystatin-triamcinolone 100,000 1 applic topical BID PRN .flare ups 01/23/23 04/08/23 History unit/g-0.1 % topical cream pantoprazole 40 mg tablet,delayed 40 mg PO QAM 01/23/23 04/08/23 History release tamsulosin 0.4 mg capsule 0.4 mg PO HS 01/23/23 04/08/23 History triamcinolone acetonide 0.1 % 1 applic topical BID PRN .flare ups 01/23/23 04/08/23 History topical ointment docusate sodium 100 mg capsule 100 mg PO BID PRN constipation #60 02/05/23 04/08/23 Rx (Colace) caps magnesium oxide 400 mg (241.3 mg 400 mg PO DAILY@1200 #30 tabs 02/05/23 04/08/23 Rx magnesium) tablet metoprolol succinate 100 mg 100 mg PO BID #60 tabs 02/05/23 04/08/23 Rx tablet,extended release 24 hr phenazopyridine 100 mg tablet 100 mg PO TID PRN dysuria #30 tabs 02/05/23 04/08/23 Rx (Pyridium) polyethylene glycol 3350 17 gram 17 g PO DAILY PRN constipation #30 02/05/23 04/08/23 Rx oral powder packet (Miralax) ea torsemide 10 mg tablet 20 mg (2 x 10 mg) PO QAM #30 tabs 02/05/23 04/08/23 Rx cholecalciferol (vitamin D3) 125 125 mcg PO QAM 03/05/23 04/08/23 History mcg (5,000 unit) tablet (Vitamin D3) digoxin 250 mcg (0.25 mg) tablet 0.25 mg PO QAM 03/05/23 04/08/23 History multivitamin 1 tab PO QAM 03/05/23 04/08/23 History omega-3 fatty acids 1,000 mg PO QAM 03/05/23 04/08/23 History benzonatate 100 mg capsule 100 mg PO TID PRN cough #20 caps 03/12/23 04/08/23 Rx ampicillin 500 mg capsule 500 mg PO TID #21 caps 04/01/23 04/08/23 Rx fluticasone fur. 100 mcg-umeclid 1 inh inhalation DAILY 04/08/23 04/08/23 History 62.5 mcg-vilant 25 mcg inhalat.powder (Trelegy Ellipta) Past Med/Surg History Medical History Hypokalemia History of COVID-19 02/14/2023, continues with cough and runny nose currently Morbid obesity Chronic diastolic heart failure Chronic sinusitis Wound dehiscence 2016 s/p hysterectomy Kidney stones passed on own previously and also stent placed 01/[address] [facility] [address] [place] History of bleeding ulcers GERD (gastroesophageal reflux disease) Hypertension Post traumatic stress disorder Bipolar disorder Depression Anxiety Peripheral neuropathy bilateral 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 no problems since then. History of pneumococcal septicemia treated at [facility] 2012. History of cardioversion Nephrolithiasis RBBB Diabetes mellitus, type II IDDM Paroxysmal atrial fibrillation follows with Dr. Jason Mosley HLD (hyperlipidemia) REENA (obstructive sleep apnea) cpap at night H/O: CVA (cerebrovascular accident) 2004 -- no deficits. Arthritis COPD (chronic obstructive pulmonary disease) follows with [facility] Pulmonary (Dr Kat) Surgical History S/P laparotomy to repair hysterectomy wound dehiscence. History of cataract surgery bilateral History of tonsillectomy History of colonoscopy History of esophagogastroduodenoscopy (EGD) History of bronchoscopy S/P tendon repair bicep tendon repair (left) History of open reduction and internal fixation (ORIF) procedure Left elbow with hardware Hx of nasal septoplasty H/O: hysterectomy LUCERO with BSO Family History Other Diabetes No family history of adverse response to anesthesia Social History Smoking Status: Former smoker Tobacco Type: Cigarettes Cigarettes Per Day: 40; Second Hand Exposure: No; Do You Dip or Chew Tobacco: No; Hx Alcohol Use: No Hx Substance Use: No Preferred Language: Cuban Communication Ability: Effective Electronic Warfare Technical Required: No Beliefs That Will Affect Care: None marital status: Current Living Situation: Spouse Feels Safe at Home: Yes Safety Concerns: Feels Safe At This Time Assistive Devices: CPAP Review of Systems Review of Systems: All systems reviewed & are unremarkable except as noted in HPI & below Physical Exam Physical Exam: General- Not in distress Head- atraumatic Eyes- PERRL. ENT- oropharynx clear Neck- supple, no JVD. Lungs- clear to auscultation mild bibasilar crackles. Heart- regular rhythm; no murmur, no gallop. Abdomen- normal bowel sounds, soft, nontender, no distension. Extremities- b/l lower extremity edema present , chronic skin changes seen. Neuro- alert, oriented x 3; PERRL, no facial palsy; no dysarthria; moves extremities. Results & Data Results & Data Vital Signs (Past 12 Hours) Vital Signs Temp Pulse Pulse Resp BP BP Pulse Ox 04/08/23 20:40 99 H 25 H 94 04/08/23 20:32 120 H 28 H 87 L 04/08/23 20:02 90 21 04/08/23 20:00 96 H 32 H 169/88 H 04/08/23 19:50 95 H 26 H 04/08/23 19:40 91 H 21 01/03/24 19:32 91 H 22 184/65 H 04/08/23 19:30 100 H 25 H 04/08/23 19:20 97 H 20 04/08/23 19:10 20 94 04/08/23 19:08 91 H 04/08/23 19:08 95 04/08/23 19:00 94 H 24 130/76 96 04/08/23 18:59 98 H 28 H 127/68 97 04/08/23 18:59 89 14 130/76 96 04/08/23 18:59 91 H 20 100 04/08/23 14:07 36.3 C L 84 20 128/79 96 O2 Del Method 04/08/23 20:40 04/08/23 20:32 04/08/23 20:02 04/08/23 20:00 04/08/23 19:50 04/08/23 19:40 04/08/23 19:32 04/08/23 19:30 04/08/23 19:20 04/08/23 19:10 04/08/23 19:08 04/08/23 19:08 Room Air 04/08/23 19:00 04/08/23 18:59 04/08/23 18:59 Room Air 04/08/23 18:59 Room Air 04/08/23 14:07 Room Air Diagnostic Findings Laboratory Results WBC 7.42 K/ul (4.8-10.8) 04/08/23 16:12 RBC 3.62 M/uL (4.20-5.40) L 04/08/23 16:12 Hgb 9.2 g/dl (12.0-16.0) L 04/08/23 16:12 Hct 30.8 % (37.0-47.0) L 04/08/23 16:12 MCV 85.1 fL (80.0-100.0) 04/08/23 16:12 MCH 25.4 pg (25.0-34.0) 04/08/23 16:12 MCHC 29.9 g/dL (32.0-36.0) L 04/08/23 16:12 RDW Std Deviation 49.2 fL (36.4-46.3) H 04/08/23 16:12 RDW Coeff of [place] 15.8 % (11.5-14.5) H 04/08/23 16:12 Plt Count 227 K/uL (130-400) 04/08/23 16:12 MPV 11.2 fL (9.4-12.4) 04/08/23 16:12 Immature Gran % (Auto) 0.8 % 04/08/23 16:12 Neut % (Auto) 55.6 % 04/08/23 16:12 Lymph % (Auto) 29.1 % 04/08/23 16:12 [place] % (Auto) 10.9 % 04/08/23 16:12 Eos % (Auto) 2.8 % 04/08/23 16:12 Baso % (Auto) 0.8 % 04/08/23 16:12 Neut # (Auto) 4.12 K/uL (1.40-6.50) 04/08/23 16:12 Lymph # (Auto) 2.16 K/uL (1.20-3.40) 04/08/23 16:12 [place] # (Auto) 0.81 K/uL (0.11-0.59) H 04/08/23 16:12 Eos # (Auto) 0.21 K/uL (0.00-0.50) 04/08/23 16:12 Baso # (Auto) 0.06 K/uL (0.00-0.20) 04/08/23 16:12 Immature Gran # (Auto) 0.06 K/uL (0.01-0.20) 04/08/23 16:12 PT 11.3 Seconds (9.0-12.0) 04/08/23 16:12 INR 1.0 (0.9-1.1) 04/08/23 16:12 APTT 28 Seconds (21-31) 04/08/23 16:12 PTT Ratio 1.0 04/08/23 16:12 Sodium 136 mmol/L (136-145) 04/08/23 16:12 Potassium 4.5 mmol/L (3.5-5.1) 04/08/23 16:12 Chloride 104 mmol/L (98-107) 04/08/23 16:12 Carbon Dioxide 23 mmol/L (21-32) 04/08/23 16:12 Anion Gap 9 (3-11) 04/08/23 16:12 BUN 21 mg/dl (6-23) 04/08/23 16:12 Creatinine 0.81 mg/dl (0.6-1.2) 04/08/23 16:12 Est Cr Clr Drug Dosing Not Reportable 04/08/23 16:12 Est GFR ( Amer) 85.3 ml/min 04/08/23 16:12 Est GFR (Non-Af Amer) 73.6 ml/min 04/08/23 16:12 BUN/Creatinine Ratio 25.9 (10-20) H 04/08/23 16:12 Glucose 311 mg/dl (70-99(Fasting)) H* 04/08/23 16:12 Calcium 9.0 mg/dl (8.6-10.3) 04/08/23 16:12 Total Bilirubin 0.7 mg/dl (0.2-1.0) 04/08/23 16:12 AST 23 U/L (13-39) 04/08/23 16:12 ALT 24 U/L (7-52) 04/08/23 16:12 Alkaline Phosphatase 91 U/L (34-104) 04/08/23 16:12 Troponin I High Sens 5.9 pg/ml (0-14) 04/08/23 16:12 B-Natriuretic Peptide 161 pg/ml (0-100) H 04/08/23 16:12 Total Protein 6.7 gm/dl (6.0-8.3) 04/08/23 16:12 Albumin 3.7 gm/dl (3.4-5.0) 04/08/23 16:12 Globulin 3.0 gm/dl (2.5-4.0) 04/08/23 16:12 Albumin/Globulin Ratio 1.2 (0.9-2) 04/08/23 16:12 Urine Color [place] 04/08/23 16:12 Urine Appearance Turbid (Clear) A 04/08/23 16:12 Urine pH 5.0 (4.5-7.5) 04/08/23 16:12 Ur Specific [place] 1.022 (1.000-1.030) 04/08/23 16:12 Urine Protein 2+ (Negative) H 04/08/23 16:12 Urine Glucose (UA) 3+ (Negative) H 04/08/23 16:12 Urine Ketones Negative (Negative) 04/08/23 16:12 Urine Blood 3+ (Negative) H 04/08/23 16:12 Urine Nitrite Positive (Negative) A 04/08/23 16:12 Urine Bilirubin 1+ (Negative) H 04/08/23 16:12 Urine Urobilinogen Negative (Negative) 04/08/23 16:12 Ur Leukocyte Esterase 1+ (Negative) H 04/08/23 16:12 Urine WBC (Auto) >30 /hpf (0-5) H 04/08/23 16:12 Urine RBC (Auto) >30 /hpf (0-4) H 04/08/23 16:12 U Hyaline Cast (Auto) 1-5 /lpf (0-5) 04/08/23 16:12 U Epithel Cells (Auto) 20-30 /lpf (0-5) H 04/08/23 16:12 Urine Bacteria (Auto) Negative (Negative) 04/08/23 16:12 Urine Yeast Not Reportable 04/08/23 16:12 Impressions Chest X-Ray 04/08/23 14:06 XR chest 2V PA/lateral HISTORY: 72 years-old Female Dyspnea COMPARISON: 03/07/2023 TECHNIQUE: PA and lateral views of the chest FINDINGS: Cardiac silhouette is enlarged. Pulmonary vascular congestion with interstitial coarsening. Atherosclerosis of aorta. No pneumothorax or pleural effusion. Mild linear bibasilar subsegmental densities. IMPRESSION: 1. Cardiomegaly with pulmonary vascular congestion. 2. Mild linear bibasilar opacities favor atelectasis. ACT 112: Negative or not required by law. The above report was generated using voice recognition software. It may contain grammatical, syntax or spelling errors. Electronically signed by: Gilbert Foster M.D. 04/08/2023 3:53 PM ECG Additional Comments: ECG. Atrial fibrillation at a rate of 90. Nonspecific intraventricular conduction block. Nonspecific T wave abnormalities. Code Status & VTE Plan VTE Prophylaxis Plan VTE Prophylaxis will be ordered: Yes
[2023-04-08] MEDS ORDERED: FUROSEMIDE 40 MG/4 ML VIAL IV ONE (22:45)
[2023-04-08] MEDS ORDERED: LANTUS PER UNIT CHARGE SQ STA (23:00)
--- NOTE | 2023-04-08 23:36 | Emergency Department Note ---
History of Present Illness General Chief Complaint: Shortness of Breath/Dyspnea Stated Complaint: SOB Time Seen by Provider: 04/08/23 18:43 History of Present Illness Provider Complaint: shortness of breath Onset (ago): week(s) (2) Consistency/Duration: + progressively worsening Relieved By: + upright position Exacerbated By: + lying flat and + exertion Known history of: COPD and congestive heart failure Associated symptoms: + chest pain (Exertional) and + orthopnea; no pain with inspiration, no cough, no wheezing, no sputum production, no hemoptysis or no abdominal pain HPI Narrative: Patient reports increased leg swelling and reports that she has been eating increased amounts of sauerkraut with the recent new year. Home Medications Medication Instructions Recorded Confirmed Type albuterol sulfate 90 mcg/actuation 2 inh inhalation Q4H PRN Shortness 01/23/23 04/08/23 History aerosol inhaler Of Breath Or Wheezing apixaban 5 mg tablet (Eliquis) 5 mg PO BID 01/23/23 04/08/23 History atorvastatin 40 mg tablet 40 mg PO QPM 01/23/23 04/08/23 History baclofen 10 mg tablet 10 mg PO BID PRN Muscle Pain 01/23/23 04/08/23 History famotidine 20 mg tablet 20 mg PO QPM 01/23/23 04/08/23 History hydrocodone 5 mg-acetaminophen 325 1 tab PO Q6 PRN Pain 01/23/23 04/08/23 History mg tablet hydrocortisone acetate 25 mg 25 mg OK BID PRN Hemorrhoids 01/23/23 04/08/23 History rectal suppository insulin aspart U-100 100 unit/mL 20 - 25 unit subcut BIDM 01/23/23 04/08/23 History (3 mL) subcutaneous pen (Novolog FlexPen U-100 Insulin aspart) insulin glargine 100 unit/mL (3 65 unit subcut BID 01/23/23 04/08/23 History mL) subcutaneous pen (Basaglar KwikPen U-100 Insulin) ipratropium bromide 21 mcg (0.03 2 spray intranasal AMHS 01/23/23 04/08/23 History %) nasal spray levalbuterol HCl 0.63 mg/3 mL 0.63 mg inhalation Q4 PRN Wheezing 01/23/23 04/08/23 History solution for nebulization metformin 1,000 mg tablet 1,000 mg PO BID 01/23/23 04/08/23 History montelukast 10 mg tablet 10 mg PO QPM 01/23/23 04/08/23 History nystatin 100,000 unit/gram topical 1 applic topical BID 01/23/23 04/08/23 History powder nystatin-triamcinolone 100,000 1 applic topical BID PRN .flare ups 01/23/23 04/08/23 History unit/g-0.1 % topical cream pantoprazole 40 mg tablet,delayed 40 mg PO QAM 01/23/23 04/08/23 History release tamsulosin 0.4 mg capsule 0.4 mg PO HS 01/23/23 04/08/23 History triamcinolone acetonide 0.1 % 1 applic topical BID PRN .flare ups 01/23/23 04/08/23 History topical ointment docusate sodium 100 mg capsule 100 mg PO BID PRN constipation #60 02/05/23 04/08/23 Rx (Colace) caps magnesium oxide 400 mg (241.3 mg 400 mg PO DAILY@1200 #30 tabs 02/05/23 04/08/23 Rx magnesium) tablet metoprolol succinate 100 mg 100 mg PO BID #60 tabs 02/05/23 04/08/23 Rx tablet,extended release 24 hr phenazopyridine 100 mg tablet 100 mg PO TID PRN dysuria #30 tabs 02/05/23 04/08/23 Rx (Pyridium) polyethylene glycol 3350 17 gram 17 g PO DAILY PRN constipation #30 02/05/23 04/08/23 Rx oral powder packet (Miralax) ea torsemide 10 mg tablet 20 mg (2 x 10 mg) PO QAM #30 tabs 02/05/23 04/08/23 Rx cholecalciferol (vitamin D3) 125 125 mcg PO QAM 03/05/23 04/08/23 History mcg (5,000 unit) tablet (Vitamin D3) digoxin 250 mcg (0.25 mg) tablet 0.25 mg PO QAM 03/05/23 04/08/23 History multivitamin 1 tab PO QAM 03/05/23 04/08/23 History omega-3 fatty acids 1,000 mg PO QAM 03/05/23 04/08/23 History benzonatate 100 mg capsule 100 mg PO TID PRN cough #20 caps 03/12/23 04/08/23 Rx ampicillin 500 mg capsule 500 mg PO TID #21 caps 04/01/23 04/08/23 Rx fluticasone fur. 100 mcg-umeclid 1 inh inhalation DAILY 04/08/23 04/08/23 History 62.5 mcg-vilant 25 mcg inhalat.powder (Trelegy Ellipta) Allergies Allergy/AdvReac Type Severity Reaction Status Date / Time Cephalosporins Allergy Intermediate RASH Verified 03/07/23 12:54 Sulfa (Sulfonamide Allergy Intermediate "Sulfa Verified 03/07/23 12:54 Antibiotics) Drugs = rash" terconazole Allergy Intermediate ITCHING, Verified 03/07/23 12:54 BURNING clarithromycin Allergy Unknown UNKNOWN Verified 03/07/23 12:54 clavulanic acid Allergy Unknown UNKNOWN Verified 03/07/23 12:54 clobetasol Allergy Unknown Unknown Verified 03/07/23 12:54 adhesive AdvReac Mild BAND-AIDS Verified 03/07/23 12:54 = SKIN IRRITATION Past Med/Surg History Medical History Hypokalemia History of COVID-19 02/14/2023, continues with cough and runny nose currently Morbid obesity Chronic diastolic heart failure Chronic sinusitis Wound dehiscence 2015 s/p hysterectomy Kidney stones passed on own previously and also stent placed 01/2023 [facility] Dr [place] History of bleeding ulcers GERD (gastroesophageal reflux disease) Hypertension Post traumatic stress disorder Bipolar disorder Depression Anxiety Peripheral neuropathy bilateral 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 no problems since then. History of pneumococcal septicemia treated at [facility] 2012. History of cardioversion Nephrolithiasis RBBB Diabetes mellitus, type II IDDM Paroxysmal atrial fibrillation follows with Dr. Jason Mosley HLD (hyperlipidemia) REENA (obstructive sleep apnea) cpap at night H/O: CVA (cerebrovascular accident) 2004 -- no deficits. Arthritis COPD (chronic obstructive pulmonary disease) follows with [facility] Pulmonary (Dr Kat) Surgical History S/P laparotomy to repair hysterectomy wound dehiscence. History of cataract surgery bilateral History of tonsillectomy History of colonoscopy History of esophagogastroduodenoscopy (EGD) History of bronchoscopy S/P tendon repair bicep tendon repair (left) History of open reduction and internal fixation (ORIF) procedure Left elbow with hardware Hx of nasal septoplasty H/O: hysterectomy LUCERO with BSO Family History Other Diabetes No family history of adverse response to anesthesia Social History Smoking Status: Former smoker Tobacco Type: Cigarettes Cigarettes Per Day: 40; Second Hand Exposure: No; Do You Dip or Chew Tobacco: No; Hx Alcohol Use: No Hx Substance Use: No Preferred Language: Malian Communication Ability: Effective Syruper Required: No Beliefs That Will Affect Care: None marital status: Current Living Situation: Spouse Feels Safe at Home: Yes Assistive Devices: Cane and Walker Physical Exam 2 Vital Signs: Vital Signs - 24 hr 04/08/23 14:07 04/08/23 18:59 04/08/23 18:59 Temperature 36.3 C L Temperature Source Oral Pulse Rate 84 91 H Pulse Rate [Apical ] 89 Pulse Rate from Sp O2 Sensor Pulse Rhythm Irregular Respiratory Rate 20 20 14 Respiratory Effort / Characteristics Non-Labored Sponta neous Non-Labored Sponta neous Respiratory Depth Normal Normal Respiratory Patter n Regular Blood Pressure 128/79 Blood Pressure [Ri ght Arm] 130/76 Blood Pressure Lilia n 95 Blood Pressure Lilia n [Right Arm] 94 Blood Pressure Pos ition Sitting Pulse Oximetry 96 100 96 Oxygen Delivery Me thod Room Air Room Air Room Air Sepsis Recent Feve r Within 48 Hours No Sepsis New/Unexpla ined Change in Men keshav Status No Sepsis Action Take n by Nursing No Action Required 04/08/23 18:59 04/08/23 19:00 04/08/23 19:08 Temperature Temperature Source Pulse Rate 98 H 94 H Pulse Rate [Apical ] Pulse Rate from Sp O2 Sensor 96 H 95 H Pulse Rhythm Respiratory Rate 28 H 24 Respiratory Effort / Characteristics Respiratory Depth Respiratory Patter n Blood Pressure 127/68 130/76 Blood Pressure [Ri ght Arm] Blood Pressure Lilia n 87 94 Blood Pressure Lilia n [Right Arm] Blood Pressure Pos ition Pulse Oximetry 97 96 95 Oxygen Delivery Me thod Room Air Sepsis Recent Feve r Within 48 Hours Sepsis New/Unexpla ined Change in Men keshav Status Sepsis Action Take n by Nursing 04/08/23 19:08 04/08/23 19:10 04/08/23 19:20 Temperature Temperature Source Pulse Rate 91 H 97 H Pulse Rate [Apical ] Pulse Rate from Sp O2 Sensor 93 H Pulse Rhythm Respiratory Rate 20 20 Respiratory Effort / Characteristics Respiratory Depth Respiratory Patter n Blood Pressure Blood Pressure [Ri ght Arm] Blood Pressure Lilia n Blood Pressure Lilia n [Right Arm] Blood Pressure Pos ition Pulse Oximetry 94 Oxygen Delivery Me thod Sepsis Recent Feve r Within 48 Hours Sepsis New/Unexpla ined Change in Men keshav Status Sepsis Action Take n by Nursing 04/08/23 19:30 04/08/23 19:32 04/08/23 19:40 Temperature Temperature Source Pulse Rate 100 H 91 H 91 H Pulse Rate [Apical ] Pulse Rate from Sp O2 Sensor Pulse Rhythm Respiratory Rate 25 H 22 21 Respiratory Effort / Characteristics Respiratory Depth Respiratory Patter n Blood Pressure 184/65 H Blood Pressure [Ri ght Arm] Blood Pressure Lilia n 104 Blood Pressure Lilia n [Right Arm] Blood Pressure Pos ition Pulse Oximetry Oxygen Delivery Me thod Sepsis Recent Feve r Within 48 Hours Sepsis New/Unexpla ined Change in Men keshav Status Sepsis Action Take n by Nursing 04/08/23 19:50 04/08/23 20:00 04/08/23 20:02 Temperature Temperature Source Pulse Rate 95 H 96 H 90 Pulse Rate [Apical ] Pulse Rate from Sp O2 Sensor Pulse Rhythm Respiratory Rate 26 H 32 H 21 Respiratory Effort / Characteristics Respiratory Depth Respiratory Patter n Blood Pressure 169/88 H Blood Pressure [Ri ght Arm] Blood Pressure Lilia n 115 Blood Pressure Lilia n [Right Arm] Blood Pressure Pos ition Pulse Oximetry Oxygen Delivery Me thod Sepsis Recent Feve r Within 48 Hours Sepsis New/Unexpla ined Change in Men keshav Status Sepsis Action Take n by Nursing 04/08/23 20:32 04/08/23 20:40 04/08/23 23:06 Temperature Temperature Source Pulse Rate 120 H 99 H 105 H Pulse Rate [Apical ] Pulse Rate from Sp O2 Sensor 119 H 102 H Pulse Rhythm Respiratory Rate 28 H 25 H Respiratory Effort / Characteristics Respiratory Depth Respiratory Patter n Blood Pressure Blood Pressure [Ri ght Arm] Blood Pressure Lilia n Blood Pressure Lilia n [Right Arm] Blood Pressure Pos ition Pulse Oximetry 87 L 94 Oxygen Delivery Me thod Sepsis Recent Feve r Within 48 Hours Sepsis New/Unexpla ined Change in Men keshav Status Sepsis Action Take n by Nursing Physical Exam: Physical Exam GENERAL: oriented to person, place, and time. appears well-developed and well- nourished. HENT: Exam performed. - Head: Normocephalic and atraumatic. EYES: Conjunctivae and EOM are normal. Right eye exhibits no discharge. Left eye exhibits no discharge. No scleral icterus. NECK: Normal range of motion. Neck supple. No JVD present. CV: Normal rate, irregular rhythm, normal heart sounds and intact distal pulses. 2+ pitting edema of the bilateral lower EXTRemeties. Palpable radial pulses bue. PULM/CHEST: Inspiratory rales at the bases. ABD: The abdomen is soft. There is no tenderness. NEURO: Motor and sensation grossly intact. SKIN: Skin is warm and dry. He is not diaphoretic. PSYCH: normal mood and affect. Behavior is normal. Judgment and thought content normal. Course Course 1842: The patient was evaluated in room B6. A complete history and physical exam was performed Administered Medications Discontinued Medications Furosemide (Furosemide 40 Mg/4 Ml Vial) 40 mg IV ONE ONE Stop: 04/08/23 22:46 Last Admin: 04/08/23 22:57 Dose: 40 mg Documented By: GISELLA Medical Decision Making Laboratory Data Attestation: I reviewed the patient's lab results. 04/08/23 16:12 04/08/23 16:12 Lab Results 04/08/23 Range/Units 16:12 WBC 7.42 (4.8-10.8) K/ul RBC 3.62 L (4.20-5.40) M/uL Hgb 9.2 L (12.0-16.0) g/dl Hct 30.8 L (37.0-47.0) % MCV 85.1 (80.0-100.0) fL MCH 25.4 (25.0-34.0) pg MCHC 29.9 L (32.0-36.0) g/dL RDW Std Deviation 49.2 H (36.4-46.3) fL RDW Coeff of [place] 15.8 H (11.5-14.5) % Plt Count 227 (130-400) K/uL MPV 11.2 (9.4-12.4) fL Immature Gran % (Auto) 0.8 % Neut % (Auto) 55.6 % Lymph % (Auto) 29.1 % [place] % (Auto) 10.9 % Eos % (Auto) 2.8 % Baso % (Auto) 0.8 % Neut # (Auto) 4.12 (1.40-6.50) K/uL Lymph # (Auto) 2.16 (1.20-3.40) K/uL [place] # (Auto) 0.81 H (0.11-0.59) K/uL Eos # (Auto) 0.21 (0.00-0.50) K/uL Baso # (Auto) 0.06 (0.00-0.20) K/uL Immature Gran # (Auto) 0.06 (0.01-0.20) K/uL PT 11.3 (9.0-12.0) Seconds INR 1.0 (0.9-1.1) APTT 28 (21-31) Seconds PTT Ratio 1.0 Sodium 136 (136-145) mmol/L Potassium 4.5 (3.5-5.1) mmol/L Chloride 104 (98-107) mmol/L Carbon Dioxide 23 (21-32) mmol/L Anion Gap 9 (3-11) BUN 21 (6-23) mg/dl Creatinine 0.81 (0.6-1.2) mg/dl Est Cr Clr Drug Dosing Not Reportable Est GFR ( Amer) 85.3 ml/min Est GFR (Non-Af Amer) 73.6 ml/min BUN/Creatinine Ratio 25.9 H (10-20) Glucose 311 H* (70-99(Fasting)) mg/dl Calcium 9.0 (8.6-10.3) mg/dl Total Bilirubin 0.7 (0.2-1.0) mg/dl AST 23 (13-39) U/L ALT 24 (7-52) U/L Alkaline Phosphatase 91 (34-104) U/L Troponin I High Sens 5.9 (0-14) pg/ml B-Natriuretic Peptide 161 H (0-100) pg/ml Total Protein 6.7 (6.0-8.3) gm/dl Albumin 3.7 (3.4-5.0) gm/dl Globulin 3.0 (2.5-4.0) gm/dl Albumin/Globulin Ratio 1.2 (0.9-2) Urine Color [place] Urine Appearance Turbid A (Clear) Urine pH 5.0 (4.5-7.5) Ur Specific [place] 1.022 (1.000-1.030) Urine Protein 2+ H (Negative) Urine Glucose (UA) 3+ H (Negative) Urine Ketones Negative (Negative) Urine Blood 3+ H (Negative) Urine Nitrite Positive A (Negative) Urine Bilirubin 1+ H (Negative) Urine Urobilinogen Negative (Negative) Ur Leukocyte Esterase 1+ H (Negative) Urine WBC (Auto) >30 H (0-5) /hpf Urine RBC (Auto) >30 H (0-4) /hpf U Hyaline Cast (Auto) 1-5 (0-5) /lpf U Epithel Cells (Auto) 20-30 H (0-5) /lpf Urine Bacteria (Auto) Negative (Negative) Urine Yeast Not Reportable Imaging Data Attestation: I personally reviewed and interpreted this imaging study as follows: My Impression: Chest x-ray shows cardiomegaly with cephalization Radiologist's Impression: Chest X-Ray 04/08/23 14:06 XR chest 2V PA/lateral HISTORY: 72 years-old Female Dyspnea COMPARISON: 03/07/2023 TECHNIQUE: PA and lateral views of the chest FINDINGS: Cardiac silhouette is enlarged. Pulmonary vascular congestion with interstitial coarsening. Atherosclerosis of aorta. No pneumothorax or pleural effusion. Mild linear bibasilar subsegmental densities. IMPRESSION: 1. Cardiomegaly with pulmonary vascular congestion. 2. Mild linear bibasilar opacities favor atelectasis. ACT 112: Negative or not required by law. The above report was generated using voice recognition software. It may contain grammatical, syntax or spelling errors. Electronically signed by: Gilbert Foster M.D. 04/08/2023 3:53 PM ECG Data Attestation: I personally reviewed and interpreted this ECG as follows: Interpretation: Atrial fibrillation with a rate of 90. QRS [address] elevation or ST depression MDM Narrative Cardiac monitoring: An order was placed for continuous cardiac monitoring. The monitor shows a rate of 90 with atrial fibrilation rhythm interpreted by me Patient was seen during a time of extreme volume and extreme acuity. Nursing triage protocols were initiated labs and imaging was conducted by protocol in the triage area. Vital signs stable. Labs are within normal limits with exception of mildly elevated proBNP. Troponin within normal limits. Discussed inpatient treatment versus outpatient treatment and outpatient diuresis and the patient states she does not feel comfortable going home given her exertional chest pain and would like to be admitted. Will contact [facility] hospitalist team to admit the patient. Lasix ordered for the patient. Impression & Plan Chronic heart failure with preserved ejection fraction Discharge Plan Visit Data Chief Complaint: Shortness of Breath/Dyspnea Stated Complaint: SOB ED Provider: Tima Da Silva Discharge Problem: Chronic heart failure with preserved ejection fraction Patient Disposition: Admitted As Inpatient Forms Stand Alone Forms: [facility] Prescriptions Prescriptions: No Action ampicillin 500 mg capsule 500 mg PO TID Qty: 21 0RF levalbuterol HCl 0.63 mg/3 mL Solution For Nebulization 0.63 mg INHALATION Q4 PRN (Reason: Wheezing) hydrocodone-acetaminophen 5-325 mg tablet 1 tab PO Q6 PRN (Reason: Pain) hydrocortisone acetate 25 mg suppository 25 mg OK BID PRN (Reason: Hemorrhoids) famotidine 20 mg tablet 20 mg PO QPM tamsulosin 0.4 mg capsule 0.4 mg PO HS baclofen 10 mg Tablet 10 mg PO BID PRN (Reason: Muscle Pain) pantoprazole 40 mg tablet,delayed release (DR/EC) 40 mg PO QAM metformin 1,000 mg tablet 1,000 mg PO BID triamcinolone acetonide 0.1 % Ointment 1 applic TOPICAL BID PRN (Reason: .flare ups) nystatin-triamcinolone 100,000-0.1 unit/g-% cream 1 applic TOPICAL BID PRN (Reason: .flare ups) montelukast 10 mg Tablet 10 mg PO QPM nystatin 100,000 unit/gram powder 1 applic TOPICAL BID Rx Instructions: Apply 0.5 g to groin ipratropium bromide 21 mcg (0.03 %) spray,non-aerosol 2 spray INTRANASAL AMHS insulin aspart U-100 [Novolog FlexPen U-100 Insulin] 100 unit/mL (3 mL) insulin pen 20 - 25 unit SUBCUT BIDM Rx Instructions: has been needing to cover with more than 25 units to achieve a 200 blood sugar insulin glargine [Basaglar KwikPen U-100 Insulin] 100 unit/mL (3 mL) insulin pen 65 unit SUBCUT BID Eliquis 5 mg Tablet 5 mg PO BID atorvastatin 40 mg tablet 40 mg PO QPM albuterol sulfate 90 mcg/actuation HFA aerosol inhaler 2 inh INHALATION Q4H PRN (Reason: Shortness Of Breath Or Wheezing) metoprolol succinate 100 mg tablet extended release 24 hr 100 mg PO BID Qty: 60 0RF polyethylene glycol 3350 [Miralax] 17 gram Powder In Packet 17 g PO DAILY PRN (Reason: constipation) Qty: 30 0RF torsemide 10 mg Tablet 20 mg PO QAM Qty: 30 0RF magnesium oxide 400 mg (241.3 mg magnesium) Tablet 400 mg PO DAILY@1200 Qty: 30 0RF phenazopyridine [Pyridium] 100 mg Tablet 100 mg PO TID PRN (Reason: dysuria) Qty: 30 0RF docusate sodium [Colace] 100 mg capsule 100 mg PO BID PRN (Reason: constipation) Qty: 60 0RF digoxin 250 mcg (0.25 mg) tablet 0.25 mg PO QAM multivitamin Tablet 1 tab PO QAM cholecalciferol (vitamin D3) [Vitamin D3] 125 mcg (5,000 unit) Tablet 125 mcg PO QAM omega-3 fatty acids Capsule 1,000 mg PO QAM Trelegy Ellipta 100-62.5-25 mcg blister with device 1 inh INHALATION DAILY benzonatate 100 mg Capsule 100 mg PO TID PRN (Reason: cough) Qty: 20 0RF Referrals Referrals: Sabine Mosley DO [Primary Care Provider] -
--- OUTSIDE RECORDS SUMMARY | 2023-04-09 00:22 | External Medical Summary | Summary of Care ---
Author Name Unknown Organization [facility] Address [address] [place] [address] Phone [phone] Care Team Providers Care Tow Truck Dispatcher Name Role Phone Sabine Mosley DO Primary Care Provider Reason for Visit * Reason Onset Date Comments Advice 04/07/2023 Encounter Details Date Type Department Care Team (Late st Contact Info) Description 04/07/2023 Telephone [facility] [address] [place] [address] Sabine Mosley, [address] [place] [address] Advice Allergies Active Allergy Reactions Criticality Noted Date Comments Adhesive Tape 11/04/2017 sensitivity Cephalosporins Unknown 09/08/2000 Clarithromycin Rash 09/08/2000 Clavulanic Acid Unknown 02/17/2022 Clobetasol Unknown 02/17/2022 Sulfa Antibiotics High 09/08/2000 Unknown Other Reaction(s): "Sulfa Drugs = rash" Terconazole 09/09/2002 terazol - made her itchy documented as of this encounter (statuses as of 04/08/2023) Medications Medication Sig Dispensed Refills Start Date [...] for Wheezing. 1080 mL 5 05/15/2022 Active Ozempic (2 MG/DOSE) 8 MG/3ML Subcutaneous [...] 200 Each 3 08/18/2022 Active Nystatin-Triamcinol one 591891-1.1 UNIT/GM-% External Cream (Mycolog)Indication s:Melissa rash of groin APPLY TOPICALLY TO THE AFFECTED AREA TWICE DAILY FOR 14 DAYS. 30 g 1 08/27/2022 Active Nystatin 650023 UNIT/GM External Powder (Nystop)Indications :Melissa rash of [...] BEDTIME 20 Tablet 0 10/27/2022 Active Ipratropium [place] 0.03 % Nasal Solution (Atrovent) Administer 2 [...] for Nausea. 30 Tablet 0 02/17/2023 Active Albuterol Sulfate HFA 108 (90 Base) MCG/ACT Inhalation Aerosol SolutionIndications :COPD, group B, by GOLD 2017 classification ([facility]) Inhale 2 Puffs by mouth every 6 hours as needed for Cough, Shortness of Breath or Wheezing. 18 g 2 03/26/2023 Active Trelegy Ellipta 100-62.5-25 MCG/ACT Aerosol Powder Breath ActivatedIndication s:COPD, group B, by GOLD 2017 classification ([facility]) Inhale 1 Puff by mouth in the morning. 180 Blister Dosing Unit 3 03/27/2023 Active documented as of this encounter (statuses as of 04/08/2023) Active Problems Problem Noted Date Diagnosed Date [...] as of this encounter (statuses as of 04/08/2023) Resolved Problems Problem Noted Date Diagnosed Date [...] difficile colitis 12/09/2012 017 [facility] Other*[id number] 03/02/2012 11/01/2015 Tobacco use disorder 11/20/2011 014 [...] as of this encounter (statuses as of 04/08/2023) Immunizations Name Administration Dates Next Due COVID-19 [...] (Prevnar) 07/23/2017 Pneumococcal Polysaccharide PPV23 (Pneumovax) 08/10/2018 Season Influenza, Quad, PF, Adjuvanted, 65+ Yrs, IM (FLUAD) 12/30/2022 Seasonal Influenza Virus Vac cine, Unspecified Formulation 12/12/2021,12/31/2020,12/23/2019,01/04,01/15/2018,12/26/2016,12/06/19 17,01/16/2016,12/24/2015,01/04/2015,1 ,01/27/2013,01/15/2012,03/20,02/23/2009,01/18/2006, 5,02/22/2003,01/18/2002,02/22/2001 Seasonal Influenza, PF, 6 M & above, IM , (FluLaval or Fluzone) 12/23/2019,01/15/2018,12/26/2016 12/26/2017 Seasonal Influenza, Quadriva lent Hd (Fluzone Hd) [...] Telephone Encounter - Sabine Mosley DO - 04/08/2023 8:41 AM EST Called and spoke with pre anesthesia PA-- Shahrzad. She has concerns about procedure due to prior EKG changes when she had COVID in the hospital and ongoing SOB. Suggestions: to hold on procedure. Nursing pls call urology to let them know the below info about possible infection in the tract, and she needs a pre op arranged her to repeat EKG and listen to her lungs prior to the lithotripsy. * Telephone Encounter - Melissa Gabriel LPN - 04/08/2023 8:36 AM EST Cherise ANA called from [facility] Due for surgery tomorrow, but has changes in EKG and increase in trapin. ANA's direct number is [phone]. Please advise * Telephone Encounter - Destiny Sanchez LPN - 04/07/2023 2:40 PM EST Images from the original note were not included. Patient calling in stating that Urology told her that she has bacteria in her urine and started valeriy Ampicillin 500mg 1 cap 3 x per day. She gave another urine specimen today to see if the antibiotic cleared the bacteria. She has surgery on April 09. She stated that she came down with a yeast infection on Thursday. She has been using the powder and cream. She stated that she was extremely soreso she place a cloth between her leg to keep from rubbing together. She stated that when she removed the cloth the following day that it was green and foul smelling. She stated that she called [facility] urology and notified them but have not received a response from them. She also stated that she needs refills on the following medications that were started at [facility] when she was admitted. Daughter stated that she is concerned about her breathing as she is SOB with activities but this has been going on since she has been discharged from the hospital. She has [facility] nurses coming in [facility] and when they check her vitals they are always good. Last SPO2 was 93$ RA. documented in this encounter Plan of Treatment Upcoming Encounters Date Type Department Care Team (Late st Contact Info) Description 04/16/2023 2:30 PM EST Imaging Radiology [facility] 1st Floor, [place] [address] [facility] [place] [address] 04/16/2023 3:00 PM EST Imaging Radiology [facility] [address] [facility] [place] [address] 04/22/2023 2:15 PM EST Office Visit Urogynecology [facility] [address] [place] [address] Edvin Beasley MD [address] [place] [address] Nurse Sadaf Villaseñor Maricruz [address] [place] [address] 08/27/2023 9:30 AM EDT Office Visit [facility] [address] [place] [id number] Sabine Mosley DO [address], [place] [id number] Health Maintenance Due Date Last Done Comments Fecal Occult Blood Test 1997 Sigmoidoscopy 1997 Hepatitis B (1 of 3 - Risk 3-dose series) 2012 Colonoscopy 01/03/2020 01/02/2010 DTaP,Tdap,and Td Vaccines (3 - Td or Tdap) 11/18/2020 11/18/2010, 11/18/2010 Depression Screening 01/19/2021 01/20/2020 HbA1c 03/24/2023 09/22/2022, 05/07, 08/22/2021, Additional history exists B-12 05/19/2023 05/19/2022, 04/07, 10/20/2018, Additional history exists Diabetic Eye Exam 06/17/2023 06/16/2022, , 03/23/2020, Additional history exists Albumin/Creatinine Ratio 09/23/2023 023, 08/22/2021, 09/13/2020, Additional history exists Diabetic Foot Exam 09/23/2023 09/22/2022, 0 08/22/2021, 11/16/2020, Additional history exists GFR 09/23/2023 09/22/2022, 04/07, 08/22/2021, Additional history exists DXA Scan 01/04/2024 01/03/2019, 11/2013, 06/12/2000 O2 ASSESSMENT COMPLETED IN PAST YEAR FOR COPD 03/18/2024 03/18/2023 Mammogram 03/26/2024 03/26/2023, 03/06, 02/11/2021, Additional history exists Cologuard 08/30/2024 08/30/2021, 08/05, 08/25/2021, Additional history exists Colorectal Cancer Screening 08/30/2024 Hepatitis C Screening Completed 09/12/2001 Pneumococcal Vaccine: 65+ Years Completed 08/10/2018, 07/23/2017, 01/18/2002 Zoster Vaccines Completed 02/10/2019, 12/2018, 01/01/2012 Alpha-1 Antitrypsin Completed 07/18/2021 LUNG CANCER SCREENING - USE SMARTSET [id number] Completed 09/08/2022, 08/26/2021, 01/23/2017 COVID-19 Vaccine Completed [...] filedocumented as of this encounter Care Teams Tow Truck Dispatcher Relationship Specialty Start Date End Date Sabine Mosley DO [address] [place] [facility] [place] [address] PCP - General Family Medicine 08/20/10 documented as of this encounter
--- OUTSIDE RECORDS SUMMARY | 2023-04-09 00:22 | External Medical Summary | Summary of Care ---
Author Name Unknown Organization [facility] Address [address] [place] [address] Phone [phone] Care Team Providers Care Percussion Teacher Name Role Phone Sabine Mosley Primary Care Provider [phone] Reason for Visit * Reason Onset Date Comments Advice 04/03/2023 Medication Refill 04/03/2023 Encounter Details Date Type Department Care Team (Late st Contact Info) Description 04/03/2023 Telephone Cardiology, [facility] [address] [place] [address] Shahrzad Eric PA-C [address] [place] [address] Advice; Medication Refill Allergies Active Allergy Reactions Criticality Noted Date Comments Adhesive Tape 11/04/2017 sensitivity Cephalosporins Unknown 09/08/2000 Clarithromycin Rash 09/08/2000 Clavulanic Acid Unknown 02/17/2022 Clobetasol Unknown 02/17/2022 Sulfa Antibiotics High 09/08/2000 Unknown Other Reaction(s): "Sulfa Drugs = rash" Terconazole 09/09/2002 terazol - made her itchy documented as of this encounter (statuses as of 04/07/2023) Medications Medication Sig Dispensed Refills Start Date [...] 0 07/05/2014 Active Insulin Syringe 31G X 08/19" 0.5 ML MISCIndications:DM type 2, not at [...] goal of less than 7.0% ([facility]) Use to inject insulin four times daily E11.9 200 Each 3 08/18/2022 Active Nystatin-Triamcinol one 022604-2.1 UNIT/GM-% External Cream (Mycolog)Indication s:Melissa rash of groin APPLY TOPICALLY TO THE AFFECTED AREA TWICE DAILY FOR 14 DAYS. 30 g 1 08/27/2022 Active Nystatin 601580 UNIT/GM External Powder (Nystop)Indications :Melissa rash of [...] hemoglobin A1c goal of less than 7.0% ([facility]) TAKE 1 TABLET BY MOUTH TWICE A DAY 180 Tablet 1 10/23/2022 Active Baclofen 10 MG Oral Tablet (Lioresal)Indicatio ns:Spasm of lumbar paraspinous muscle,Chronic left-sided low back pain with left-sided sciatica TAKE 1 TABLET BY MOUTH IN THE MORNING AND BEFORE BEDTIME 20 Tablet 0 10/27/2022 Active Ipratropium [place] 0.03 % Nasal Solution (Atrovent) Administer 2 [...] goal of less than 7.0% ([facility]) INJECT 65 UNITS TWICE DAILY DIRECTED. 60 mL 1 01/13/2023 Active Eliquis 5 MG Oral Tablet (Apixaban)Indicatio ns:PAF (paroxysmal atrial fibrillation) ([facility]),Cerebrovascul ar disease, arteriosclerotic, post-stroke TAKE [...] B, by GOLD 2017 classification ([facility]) Inhale 2 Puffs by mouth every 6 hours as needed for Cough, Shortness of Breath or Wheezing. 18 g 2 03/26/2023 Active Trelegy Ellipta 100-62.5-25 MCG/ACT Aerosol Powder Breath ActivatedIndication s:COPD, group B, by GOLD 2017 classification ([facility]) Inhale 1 Puff by mouth in the morning. 180 Blister Dosing Unit 3 03/27/2023 Active documented as of this encounter (statuses as of 04/07/2023) Active Problems Problem Noted Date Diagnosed Date [...] as of this encounter (statuses as of 04/07/2023) Resolved Problems Problem Noted Date Diagnosed Date [...] colitis 12/09/2012 017 Genetic Sleep Disorder [facility] Other*[id number] 03/02/2012 11/01/2015 Tobacco use disorder 11/20/2011 014 [...] as of this encounter (statuses as of 04/07/2023) Immunizations Name Administration Dates Next Due COVID-19 [...] (Prevnar) 07/23/2017 Pneumococcal Polysaccharide PPV23 (Pneumovax) 08/10/2018,01/18/2002 Season Influenza, Quad, PF, Adjuvanted, 65+ Yrs, [...] encounter Miscellaneous Notes * Telephone Encounter - Any Henderson OSA - 04/07/2023 2:09 PM EST Pt is calling back for an update. Has questions about medications and would like to have them sent to [facility] [phone] * Telephone Encounter - Flavia Henry OSA - 04/07/2023 9:06 AM EST Person calling: Wendy Relationship to patient: friend Number to return call: [phone] Reason for call: medication refills Dr Dutta from [facility] home changed medication Metoprolol to 100 mg She also needs Magnesium Oxide 400 mg Also asking about Digoxin Pharmacy: [facility] Provider Name:Dr Mosley Please advise Thank you REENA Goins * Telephone Encounter - Sheila Harris OSA - 04/03/2023 4:29 PM EST Person calling: Patient, Tiffanie Relationship to patient: na/ Number to return call: [phone] Reason for call: Medication Refills Pharmacy: [facility] in [facility] Provider Name: Shahrzad Eric PA-C Patient called for medication refills for Metoprolol 100mg and Digoxin. Patient is wondering if sheneeds to stay on the Digoxin and clarification what dosage of the Metoprolol. Patient is also looking for advise for what medications she should be on prior to surgery. Patient is scheduled for 04/09/2023 to remove Kidney Stones at [facility]. Please advise. Thank you, REENA Gold documented in this encounter Plan of Treatment Upcoming Encounters Date Type Department Care Team (Late st Contact Info) Description 04/16/2023 2:30 PM EST Imaging Radiology [facility] 1st Floor, [place] [address] [place] [address] 04/16/2023 3:00 PM EST Imaging Radiology [facility] [address] [place] [address] 04/22/2023 2:15 PM EST Office Visit Urogynecology [facility] [address] [place] [address] Edvin Beasley MD [address] [facility] [place] [address] Nurse Sadaf Villaseñor [address] [place] [address] 08/27/2023 9:30 AM EDT [facility] [address] [facility] [phone] Sabine Mosley DO [address] [facility] [address] Health Maintenance Due Date Last Done Comments [...] Additional history exists DXA Scan 01/04/2024 01/03/2019, 05/0 11/2013, 06/12/2000 O2 ASSESSMENT COMPLETED IN PAST YEAR FOR COPD 03/18/2024 03/18/2023 Mammogram 03/26/2024 03/26/2023, 03/06, 02/11/2021, Additional history exists Cologuard 08/30/2024 08/30/2021, 08/05, 08/25/2021, Additional history exists Colorectal Cancer Screening 08/30/2024 Hepatitis C Screening Completed 09/12/2001 Pneumococcal Vaccine: 65+ Years Completed 08/10/2018, 07/23/2017, 01/18/2002 Zoster Vaccines Completed 02/10/2019, 12/2018, 01/01/2012 Alpha-1 Antitrypsin Completed 07/18/2021 LUNG CANCER SCREENING - USE SMARTSET [id number] Completed 09/08/2022, 08/26/2021, 01/23/2017 COVID-19 Vaccine Completed [...] filedocumented as of this encounter Care Teams Percussion Teacher Relationship Specialty Start Date End Date Sabine Mosley DO [address] [place] [address] PCP - General Family Medicine 08/20/10 documented as of this encounter
--- OUTSIDE RECORDS SUMMARY | 2023-04-09 00:22 | External Medical Summary | Summary of Care ---
Author Name Unknown Organization [facility] Address [address] [place] [address] Phone [phone] Care Team Providers Care Supervisor Silvering Department Name Role Phone Sabine Mosley Primary Care Provider Reason for Visit * Reason Onset Date Comments Advice 04/03/2023 Medication Refill 04/03/2023 Encounter Details Date Type Department Care Team (Late st Contact Info) Description 04/03/2023 Telephone Cardiology, [facility] [address] [place] [address] Shahrzad Eric PA-C [address] [place] [address] Advice; Medication Refill Allergies Active Allergy Reactions [...] hemoglobin A1c goal of less than 7.0% ([facility]) Use to inject insulin four times daily E11.9 200 Each 3 08/18/2022 Active Nystatin-Triamcinol one 049868-2.1 UNIT/GM-% External Cream (Mycolog)Indication s:Melissa rash of groin APPLY TOPICALLY TO THE AFFECTED AREA TWICE DAILY FOR 14 DAYS. 30 g 1 08/27/2022 Active Nystatin 966492 UNIT/GM External Powder (Nystop)Indications :Melissa rash of [...] BEDTIME 20 Tablet 0 10/27/2022 Active Ipratropium [place] 0.03 % Nasal Solution (Atrovent) Administer 2 [...] hemoglobin A1c goal of less than 7.0% ([facility]) INJECT 65 UNITS TWICE DAILY DIRECTED. 60 mL 1 01/13/2023 Active Eliquis 5 MG Oral Tablet (Apixaban)Indicatio ns:PAF (paroxysmal atrial fibrillation) ([facility]),Cerebrovascul ar disease, arteriosclerotic, post-stroke TAKE 1 TABLET [...] :COPD, group B, by GOLD 2017 classification ([facility]) Inhale 2 Puffs by mouth every 6 hours as needed for Cough, Shortness of Breath or Wheezing. 18 g 2 03/26/2023 Active Trelegy Ellipta 100-62.5-25 MCG/ACT Aerosol Powder Breath ActivatedIndication s:COPD, group B, by GOLD 2017 classification ([facility]) Inhale 1 Puff by mouth in the [...] Genetic Sleep Disorder Resea [facility] Other*[id number] 03/02/2012 11/01/2015 Tobacco use disorder 11/20/2011 014 [...] encounter Miscellaneous Notes * Telephone Encounter - Flavia Henry OSA - 04/07/2023 9:06 AM EST Person calling: Wendy Relationship to patient: friend Number to return call: [phone] Reason for call: medication refills Dr Dutta from [facility] home changed medication Metoprolol to 100 mg She also needs Magnesium Oxide 400 mg Also asking about Digoxin Pharmacy: [facility] Provider Name:Dr Mosley Please advise Thank you REENA Goins * Telephone Encounter - Sheila Harris OSA - 04/03/2023 4:29 PM EST Person calling: Tiffanie Downey Relationship to patient: na/ Number to return call: [phone] Reason for call: Medication Refills Pharmacy: [facility] in [facility] Provider Name: Shahrzad Eric PA-C Patient called for medication refills for Metoprolol 100mg and Digoxin. Patient is wondering if sheneeds to stay on the Digoxin and clarification what dosage of the Metoprolol. Patient is also looking for advise for what medications she should be on prior to surgery. Patient is scheduled for 04/09/2023 to remove Kid[address] Stones at [facility]. Please advise. Thank you, REENA Gold documented in this encounter Plan of Treatment Upcoming Encounters Date Type Department Care Team (Late st Contact Info) Description 04/16/2023 2:30 PM EST Imaging Radiology [facility] 1st [facility] [address] [facility] [place] [address] 04/16/2023 3:00 PM EST Imaging Radiology [facility] [address] [place] [address] 04/22/2023 2:15 PM EST Office Visit Urogynecology [facility] [address] [facility] [facility] [place] [address] Edvin Beasley MD [address] [place] [address] Nurse Sadaf Villaseñor [address] [place] [address] 08/27/2023 9:30 AM EDT Office Visit [facility] [address] [facility] [phone] Sabine Mosley DO [address] [facility] [address] Health Maintenance Due Date Last Done Comments [...] Additional history exists DXA Scan 01/04/2024 01/03/2019, 050 11/2013, 06/12/2000 O2 ASSESSMENT COMPLETED IN PAST YEAR FOR COPD 03/18/2024 03/18/2023 Mammogram 03/26/2024 03/26/2023, 03/06, 02/11/2021, Additional history exists Cologuard 08/30/2024 08/30/2021, 08/05, 08/25/2021, Additional history exists Colorectal Cancer Screening 08/30/2024 Hepatitis C Screening Completed 09/12/2001 Pneumococcal Vaccine: 65+ Years Completed 08/10/2018, 07/23/2017, 01/18/2002 Zoster Vaccines Completed 02/10/2019, 12/2018, 01/01/2012 Alpha-1 Antitrypsin Completed 07/18/2021 LUNG CANCER SCREENING - USE SMARTSET 23122 Completed 09/08/2022, 08/26/2021, 01/23/2017 COVID-19 Vaccine Completed [...] filedocumented as of this encounter Care Teams Supervisor Silvering Department Relationship Specialty Start Date End Date Sabine Mosley DO [address] [place] [address] PCP - General Family Medicine 08/20/10 documented as of this encounter
[2023-04-09] MEDS ORDERED: NITROGLYCERIN SL 0.4 MG/TAB TAB SL PRN (00:50)
[2023-04-09] MEDS ORDERED: DOCUSATE SODIUM 100 MG CAP PO PRN (00:50)
[2023-04-09] MEDS ORDERED: LEVALBUTEROL HCL 0.63 MG/3 ML NEB INH PRN (00:50)
[2023-04-09] MEDS ORDERED: POLYETHYLENE (MIRALAX) 17 GM PACK PO PRN ×2 (00:50)
[2023-04-09] MEDS ORDERED: GLUCOSE 40% GEL 15 GM TUBE PO PRN (00:50)
[2023-04-09] MEDS ORDERED: GLUCAGON FOR INJ 1 MG VIAL SQ PRN (00:50)
[2023-04-09] MEDS ORDERED: DEXTROSE 50% 50 ML SYRINGE IV PRN (00:50)
[2023-04-09] MEDS ORDERED: BENZONATATE 100 MG CAPSULE PO PRN (00:50)
[2023-04-09] MEDS ORDERED: HYDROCORTISONE ACETATE 25 MG SUPP PR PRN (00:50)
[2023-04-09] MEDS ORDERED: PHARMACY GLYCEMIC MGMT CONSULT PRN (00:50)
[2023-04-09] MEDS ORDERED: TRIAMCINOLONE ACET 0.1% OINT 15 GM TUBE TOP PRN (00:50)
[2023-04-09] MEDS ORDERED: GLUCOSE 10 TAB/TUBE PO PRN (00:50)
[2023-04-09] MEDS ORDERED: ALBUTEROL HFA 8 GM INHALER INH PRN (00:50)
[2023-04-09] MEDS ORDERED: CARBOHYDRATES FOR HYPOGLYCEMIA PO PRN (00:50)
[2023-04-09] MEDS ORDERED: HYDROCODONE/ACETAMOPHEN 5/325MG TAB PO ONE (01:04)
[2023-04-09] MEDS: HYDROCODONE/ACETAMOPHEN 5/325MG TAB PO PRN ×3 (01:10→17:16)
[2023-04-09] MEDS ORDERED: Patient's HEIGHT &/or WEIGHT Needed STA (02:10)
[2023-04-09] MEDS: INSULIN ASPART PER UNIT CHARGE SC SCH ×5 (04:49→21:59)
[2023-04-09] MEDS ORDERED: INSULIN HUMAN REGULAR PER UNIT 5 UNITS in SYRINGE 4.95 ML IV STA ×2 (06:13→07:26)
--- NOTE | 2023-04-09 08:52 | Cardiology Consultation ---
Date of Consultation April 09, 2023 Assessment & Plan (1) Acute heart failure with preserved ejection fraction (HFpEF): (2) Persistent atrial fibrillation: (3) Chest pain: (4) Hypertension: Plan Assessment: 72 year-old medically complex female presents with 3 days history of progressively worsening shortness of breath and lower extremity edema, multifactorial. Plan: 1. Acute heart failure with preserved ejection fraction -Echocardiogram pending to asses overall structure and function. -Demonstrates modest hypervolemia; however, does report improvement in her overall symptoms since time of admission. -No Daily weight to trend at this time. Negative 2202 fluid balance at this time. -Cause multifactorial given dietary indiscretions, and medication non- compliance. -Continue with IV diuresis with Furosemide 40mg IV BID, with close montioring of renal function and electrolytes in addition to daily weight/I&Os. -reassess fluid status in the AM -Stressed the importance in a low sodium diet as well as fluid restriction. Also stressed importance of medication compliance. 2. Persistent atrial fibrillation -Known history and typically rate controlled. -Continue with digoxin 0.25mg Daily -Chads-Vasc score 7 with high risk for thromboembolic event. -Continue Eliquis 5mg PO BID 3. Chest pain: -No ischemic changes on EKG, Troponin negative. -Pain has subsided with increased diuresis and ease of breathing suggestive it was precipitated by her volume status -Continue to monitor on telemetry 4. HTN: - At target. Continue Toprol xl, and furosemide. patient is also on Tamsulosin for urinary concerns (prior renal calculi) which will also facilitate in BP control. Case has been discussed with Dr. Villanueva. Further recommendations regarding plan of care as per his assessment. I spent a total of 30 minutes on the date of service in preparation, delivery, documentation of the care provided to the patient excluding any time spent in the performance of separately billed services. ELAINA Rosario [facility] Card[facility] Supervising Physician Co-Signing Physician Notes Patient seen and examined personally. Assessment and note as above. 72-year-old female with longstanding persistent atrial fibrillation, hypertension with hypertensive heart disease and diastolic heart failure/preserved ejection fraction Recent complicated history of obstructive uropathy and sepsis. Presents now noting increasing edema and shortness of breath with findings consistent with acute on chronic diastolic heart failure. Patient admits to dietary indiscretions and lapse in medical therapies Plan as outlined above Echocardiogram 04/09/2023 The left ventricle is of normal size and function EF 60-65% there is mild left ventricular Hypertrophy. There is no significant valvular disease History of Present Illness Reason for Consultation: CHF, Chest pain Requesting Physician: Patt hospitalist Attending Physician: Deuce Harvey MD History of Present Illness Patient is a 72 year old female with PMHx significant for Persistent A-fib, Obesity, HTN, Chronic HF with preserved EF, dyslipidemia, prior CVA that resent ed to the ER with complaints of 3 days history of significant shortness of breath, decreased mobility and lower extremity swelling. Patient states that she has been feeling her usual state of health until the last week. She denies any acute URI symptoms, fevers or chills. She does endorse some dietary indiscretion with sodium rich foods over both [place] and New Years. She also endorses having excessive thirst and consuming a Gallon of Milk over the past 2 days in addition to her other fluids. Patient also reports that she has not been very compliant with her medications stating that she will often skip doses of her diuretics, but that she also ran out of several of her pills, unsure exactly which ones. EKG on admission shows Atrial fibrillation with presence of a Right BBB, T wave abnormality (anterior-lateral) previously cited. Rate 90 bpm. Troponin negative. Patient is resting comfortably reclined in bed. She has her daughter on the cell phone to hear what is going on. She reports that her chest pressure has resolved and she denies any sharp pain or palpitations. She does endorse lower extremity edema, but states it is better than yesterday. No pre-syncopal or syncopal symptoms. Patient is for a echocardiogram today. Allergies Allergy/AdvReac Type Severity Reaction Status Date / Time Cephalosporins Allergy Intermediate RASH Verified 03/07/23 12:54 Sulfa (Sulfonamide Allergy Intermediate "Sulfa Verified 03/07/23 12:54 Antibiotics) Drugs = rash" terconazole Allergy Intermediate ITCHING, Verified 03/07/23 12:54 BURNING clarithromycin Allergy Unknown UNKNOWN Verified 03/07/23 12:54 clavulanic acid Allergy Unknown UNKNOWN Verified 03/07/23 12:54 clobetasol Allergy Unknown Unknown Verified 03/07/23 12:54 adhesive AdvReac Mild BAND-AIDS Verified 03/07/23 12:54 = SKIN IRRITATION Home Medications Medication Instructions Recorded Confirmed Type albuterol sulfate 90 mcg/actuation 2 inh inhalation Q4H PRN Shortness 01/23/23 04/08/23 History aerosol inhaler Of Breath Or Wheezing apixaban 5 mg tablet (Eliquis) 5 mg PO BID 01/23/23 04/08/23 History atorvastatin 40 mg tablet 40 mg PO QPM 01/23/23 04/08/23 History baclofen 10 mg tablet 10 mg PO BID PRN Muscle Pain 01/23/23 04/08/23 History famotidine 20 mg tablet 20 mg PO QPM 01/23/23 04/08/23 History hydrocodone 5 mg-acetaminophen 325 1 tab PO Q6 PRN Pain 01/23/23 04/08/23 History mg tablet hydrocortisone acetate 25 mg 25 mg VT BID PRN Hemorrhoids 01/23/23 04/08/23 History rectal suppository insulin aspart U-100 100 unit/mL 20 - 25 unit subcut BIDM 01/23/23 04/08/23 History (3 mL) subcutaneous pen (Novolog FlexPen U-100 Insulin aspart) insulin glargine 100 unit/mL (3 65 unit subcut BID 01/23/23 04/08/23 History mL) subcutaneous pen (Basaglar KwikPen U-100 Insulin) ipratropium bromide 21 mcg (0.03 2 spray intranasal AMHS 01/23/23 04/08/23 History %) nasal spray levalbuterol HCl 0.63 mg/3 mL 0.63 mg inhalation Q4 PRN Wheezing 01/23/23 04/08/23 History solution for nebulization metformin 1,000 mg tablet 1,000 mg PO BID 01/23/23 04/08/23 History montelukast 10 mg tablet 10 mg PO QPM 01/23/23 04/08/23 History nystatin 100,000 unit/gram topical 1 applic topical BID 01/23/23 04/08/23 History powder nystatin-triamcinolone 100,000 1 applic topical BID PRN .flare ups 01/23/23 04/08/23 History unit/g-0.1 % topical cream pantoprazole 40 mg tablet,delayed 40 mg PO QAM 10/20/23 01/03/24 History release tamsulosin 0.4 mg capsule 0.4 mg PO HS 01/23/23 04/08/23 History triamcinolone acetonide 0.1 % 1 applic topical BID PRN .flare ups 01/23/23 04/08/23 History topical ointment docusate sodium 100 mg capsule 100 mg PO BID PRN constipation #60 02/05/23 04/08/23 Rx (Colace) caps magnesium oxide 400 mg (241.3 mg 400 mg PO DAILY@1200 #30 tabs 02/05/23 04/08/23 Rx magnesium) tablet metoprolol succinate 100 mg 100 mg PO BID #60 tabs 02/05/23 04/08/23 Rx tablet,extended release 24 hr phenazopyridine 100 mg tablet 100 mg PO TID PRN dysuria #30 tabs 02/05/23 04/08/23 Rx (Pyridium) polyethylene glycol 3350 17 gram 17 g PO DAILY PRN constipation #30 02/05/23 04/08/23 Rx oral powder packet (Miralax) ea torsemide 10 mg tablet 20 mg (2 x 10 mg) PO QAM #30 tabs 02/05/23 04/08/23 Rx cholecalciferol (vitamin D3) 125 125 mcg PO QAM 03/05/23 04/08/23 History mcg (5,000 unit) tablet (Vitamin D3) digoxin 250 mcg (0.25 mg) tablet 0.25 mg PO QAM 03/05/23 04/08/23 History multivitamin 1 tab PO QAM 03/05/23 04/08/23 History omega-3 fatty acids 1,000 mg PO QAM 03/05/23 04/08/23 History benzonatate 100 mg capsule 100 mg PO TID PRN cough #20 caps 03/12/23 04/08/23 Rx ampicillin 500 mg capsule 500 mg PO TID #21 caps 04/01/23 04/08/23 Rx fluticasone fur. 100 mcg-umeclid 1 inh inhalation DAILY 04/08/23 04/08/23 History 62.5 mcg-vilant 25 mcg inhalat.powder (Trelegy Ellipta) Patient History Medical History Hypokalemia History of COVID-19 02/14/2023, continues with cough and runny nose currently Morbid obesity Chronic diastolic heart failure Chronic sinusitis Wound dehiscence 2015 s/p hysterectomy Kidney stones passed on own previously and also stent placed 01/[address] [facility] [address] [place] History of bleeding ulcers GERD (gastroesophageal reflux disease) Hypertension Post traumatic stress disorder Bipolar disorder Depression Anxiety Peripheral neuropathy bilateral 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 no problems since then. History of pneumococcal septicemia treated at [facility] 2012. History of cardioversion Nephrolithiasis RBBB Diabetes mellitus, type II IDDM Paroxysmal atrial fibrillation follows with Dr. Jason Mosley HLD (hyperlipidemia) REENA (obstructive sleep apnea) cpap at night H/O: CVA (cerebrovascular accident) 2004 -- no deficits. Arthritis COPD (chronic obstructive pulmonary disease) follows with [facility] (Dr Kat) Surgical History S/P laparotomy to repair hysterectomy wound dehiscence. History of cataract surgery bilateral History of tonsillectomy History of colonoscopy History of esophagogastroduodenoscopy (EGD) History of bronchoscopy S/P tendon repair bicep tendon repair (left) History of open reduction and internal fixation (ORIF) procedure Left elbow with hardware Hx of nasal septoplasty H/O: hysterectomy LUCERO with BSO Family History Other Diabetes No family history of adverse response to anesthesia Social History Smoking Status: Former smoker Tobacco Type: Cigarettes Cigarettes Per Day: 40; Second Hand Exposure: No; Do You Dip or Chew Tobacco: No; Hx Alcohol Use: No Hx Substance Use: No Preferred Language: Hebrew Communication Ability: Effective Baseball Coach Required: No Beliefs That Will Affect Care: None marital status: Current Living Situation: Spouse Feels Safe at Home: Yes Safety Concerns: Feels Safe At This Time Assistive Devices: Cane and Walker Review of Systems Review of Systems: All systems reviewed & are unremarkable except as noted in HPI & below Physical Exam Constitutional: well developed and + obese; no acute distress Neck: normal visual inspection and trachea midline Respiratory: normal respiratory effort; no respiratory distress Auscultation: + diminished lung sounds (diminished in bilateral bases. ) and + wheezes (faint expiratory wheeze in bilateral upper lobes) Cardiovascular: Rate/Rhythm: + irregularly irregular Heart Sounds: normal S1 and normal S2 Vessels: dorsalis pedis pulses present; no JVD Extremities: + edema (+1 BLE edema ) Skin: no rashes, warm and dry Psychiatric: A+Ox3, euthymic affect Results & Data Vital Signs (Past 12 Hours) Vital Signs Temp Pulse Pulse Resp BP BP Pulse Ox 04/09/23 07:05 36.9 C 86 20 129/70 92 04/09/23 04:45 04/09/23 04:19 36.6 C 87 20 132/77 91 04/09/23 01:00 110 H 23 92 04/09/23 00:31 112 H 21 92 04/09/23 00:31 130/111 H 04/09/23 00:00 115 H 23 94 04/08/23 23:31 155/104 H 04/08/23 23:31 106 H 21 04/08/23 23:06 105 H 04/08/23 23:01 103 H 26 H 94 04/08/23 23:01 143/66 H 04/08/23 23:00 109 H 26 H 94 04/08/23 22:37 90 04/08/23 21:31 137/83 04/08/23 21:31 100 H 23 04/08/23 21:02 95 H 21 04/08/23 21:02 168/106 H 04/08/23 21:00 106 H 27 H O2 Del Method 04/09/23 07:05 Nasal CPAP 04/09/23 04:45 Room Air 04/09/23 04:19 Nasal Cannula 04/09/23 01:00 04/09/23 00:31 04/09/23 00:31 04/09/23 00:00 04/08/23 23:31 04/08/23 23:31 04/08/23 23:06 04/08/23 23:01 04/08/23 23:01 04/08/23 23:00 04/08/23 22:37 04/08/23 21:31 04/08/23 21:31 04/08/23 21:02 04/08/23 21:02 04/08/23 21:00 Laboratory Results Cardiac Enzymes 04/08/23 04/09/23 Range/Units 16:12 06:56 AST 23 (13-39) U/L Troponin I High Sens 5.9 6.5 (0-14) pg/ml B-Natriuretic Peptide 161 H (0-100) pg/ml Coagulation 04/08/23 Range/Units 16:12 PT 11.3 (9.0-12.0) Seconds APTT 28 (21-31) Seconds B-Natriuretic Peptide 161 H (0-100) pg/ml CBC 04/08/23 Range/Units 16:12 WBC 7.42 (4.8-10.8) K/ul RBC 3.62 L (4.20-5.40) M/uL Hgb 9.2 L (12.0-16.0) g/dl Hct 30.8 L (37.0-47.0) % Plt Count 227 (130-400) K/uL Neut # (Auto) 4.12 (1.40-6.50) K/uL Lymph # (Auto) 2.16 (1.20-3.40) K/uL [place] # (Auto) 0.81 H (0.11-0.59) K/uL Eos # (Auto) 0.21 (0.00-0.50) K/uL Baso # (Auto) 0.06 (0.00-0.20) K/uL Comprehensive Metabolic Panel 04/08/23 Range/Units 16:12 Sodium 136 (136-145) mmol/L Potassium 4.5 (3.5-5.1) mmol/L Chloride 104 (98-107) mmol/L Carbon Dioxide 23 (21-32) mmol/L BUN 21 (6-23) mg/dl Creatinine 0.81 (0.6-1.2) mg/dl Glucose 311 H* (70-99(Fasting)) mg/dl Calcium 9.0 (8.6-10.3) mg/dl AST 23 (13-39) U/L ALT 24 (7-52) U/L Alkaline Phosphatase 91 (34-104) U/L Total Protein 6.7 (6.0-8.3) gm/dl Albumin 3.7 (3.4-5.0) gm/dl Intake and Output 04/08/23 04/09/23 04/09/23 22:59 06:59 14:59 Output Total 1550 / 1550 Balance -1550 / -1550 Output: Urine Amount (Catheter) 1550 / 1550 Miller/Indwelling 155 / 1550 Other: Other Intake Source Patient is NPO Weight 148.5 kg Weight Measurement Method Built in [facility] Diagnostic Findings EKG 04/07/23 Atrial fibrillation with Right BBB T wave abnormality (cited on previous EKG) Rate 90 bpm . (3) Chest pain Chest pain type: other chest pain Qualified Code(s): R07.89 - Other chest pain (4) Hypertension Hypertension type: primary hypertension Qualified Code(s): I10 - Essential (primary) hypertension
[2023-04-09] MEDS ORDERED: LANTUS PER UNIT CHARGE SQ SCH ×2 (09:00→21:00)
[2023-04-09] MEDS ORDERED: AMOXICILLIN 500 MG CAP PO SCH (09:00)
[2023-04-09] MEDS: FLUTICASONE FUROATE 100MCG 14 PUFFS/INHALER INH SCH (09:10)
[2023-04-09] MEDS: IPRATROPIUM BROMIDE NASAL SPRAY 0.06% 15ML NAE SCH ×2 (09:10→22:02)
[2023-04-09] MEDS: APIXABAN 5 MG TABLET PO SCH ×2 (09:11→22:05)
[2023-04-09] MEDS: METOPROLOL SUCC 50MG EXT REL TAB PO SCH ×2 (09:11→22:01)
[2023-04-09] MEDS: CHOLECALCIFEROL 5,000 UNITS 125 MCG TAB PO SCH (09:11)
[2023-04-09] MEDS: MULTIVITAMIN TAB PO SCH (09:11)
[2023-04-09] MEDS: UMECLIDINIUM/VILANTEROL 62.5/25MCG 7 PUFFS/INHALER INH SCH (09:11)
[2023-04-09] MEDS: PANTOprazole 40 MG TAB PO SCH (09:11)
[2023-04-09] MEDS: FUROSEMIDE 40 MG/4 ML VIAL IV SCH ×2 (09:12→17:16)
[2023-04-09] MEDS ORDERED: LANTUS PER UNIT CHARGE SC ONE (11:30)
[2023-04-09] MEDS: cefTRIAXone SODIUM 2,000 MG in DEXTROSE 5 % MINI-B 50 ML IV SCH (12:00)
[2023-04-09] MEDS: MAGNESIUM OXIDE 400 MG TAB PO SCH (12:00)
--- NOTE | 2023-04-09 13:00 | Pharmacy Report ---
Pharmacy Glycemic Short Note 2 - Date of Service April 09, 2023 - Glycemic Short BSG Results (Last 24 hours): 04/08/23 04/08/23 04/09/23 16:12 23:41 04:36 Glucose 311 H* POC Glucose 397 H* 409 H* 04/09/23 04/09/23 04/09/23 05:53 07:07 07:09 Glucose POC Glucose 363 H* 347 H* 328 H* 04/09/23 04/09/23 11:12 11:14 Glucose POC Glucose 401 H* 385 H* OUTPATIENT ANTIDIABETIC REGIMEN: * Lantus 65 units SQ BID * Novolog SS (20-25 units BIDM, patient reports that she has needed more to be below 200 per med rec) * metformin 1000mg BIDM * HbA1c 8.6% 03/08/23 ASSESSMENT: * Tiffanie is a 72 YOF admitted with shortness of breath and a history of T2DM. Pharmacy has been consulted to assist with glycemic management while inpatient. She is familiar to the service and typically has high insulin requirements. * Fasting BSGs this AM significantly elevated, half home dose Lantus ordered BID due to NPO status. * BSGs corrected twice with Novolog early this AM, IV insulin regular bolus ordered but held for concern for stacking. Before breakfast BSG still elevated, 5 units of IV regular insulin reordered at this time, correctional Novolog withheld due to NPO status and previous corrections. Lantus also given. * Lunchtime BSG increased further, likely due to insufficient correctional Novolog and additional of diet without carbohydrate coverage for breakfast. Novolog initiated at previously successful parameters. * Additional Lantus given at lunchtime to return to dosage that previously provided better control on previous admissions. PLAN FOR INPATIENT GLYCEMIC CONTROL: * Hold outpatient oral diabetes medications * Basal insulin * Lantus 75 units SQ BID (60 units if BSG is below goal range) * Bolus insulin * NovoLog per scale ACHS or Q6hrs while NPO * Goal Range: Low 110 mg/dL - High 140 mg/dL * Correction Factor: 6 mg/dL/unit * Nutritional / Prandial insulin per carb ratio of 1 unit per 2 grams CHO consumed
--- NOTE | 2023-04-09 13:48 | Electrocardiogram Report ---
Test Reason : Blood Pressure : / mmHG Vent. Rate : 090 BPM Atrial Rate : 000 BPM P-R Int : 000 ms QRS Dur : 134 ms QT Int : 378 ms P-R-T Axes : 000 021 094 degrees QTc Int : 462 ms Atrial fibrillation Right bundle branch block T wave abnormality, consider anterolateral ischemia Abnormal ECG When compared with ECG of 10-MAR-2023 10:13, T wave inversion no longer evident in Inferior leads T wave inversion more evident in Anterior leads Nonspecific T wave abnormality has replaced inverted T waves in Lateral leads QT has shortened Confirmed by Tor Zurita ([id number]) on 04/09/2023 1:48:38 PM Referred By: Confirmed By:Tor Zurita
--- NOTE | 2023-04-09 14:31 | Hospitalist Progress Note ---
Date of Service April 09, 2023 Assessment & Plan (1) Acute heart failure with preserved ejection fraction (HFpEF): Plan: 72-year-old female with past med history significant for type 2 diabetes, hyperlipidemia, COPD, obstructive sleep apnea on CPAP, chronic diastolic CHF, history of CVA, longstanding persistent atrial fibrillation, hypertension, morbid obesity, GERD, bipolar 2 disorder, depression, former smoker presents with ongoing shortness of breath for last few days. Acute on chronic CHF Patient presents with shortness of breath and lower extremity edema Chest x-ray personally reviewed; presence of pulmonary vascular congestion. Patient's reported noncompliance with torsemide at home Echocardiogram shows EF of 60 to 65% with mild concentric LVH. Continue on Lasix 40 mg twice daily Daily weights and I's and O's Monitoring in telemetry Chest pain EKG on admission personally reviewed; atrial fibrillation with RBBB High sensitive troponin negative Cardiology on board; appreciate recommendation Acute UTI Urine analysis suggestive of infection Urine Cx E.coli; resistant to amoxicillin and Floroquinolones. Currently on ceftriaxone Plan to treat for 3 to 5 days Obstructive sleep apnea CPAP nightly History of COPD Continue home inhalers Type II diabetes on Lantus to 30 units twice daily and insulin sliding scale We will follow blood sugars and HbA1c levels Glycemic pharmacy consult History of atrial fibrillation Rate control with metoprolol succinate and digoxin On Eliquis Hyperlipidemia On statin Hypertension On metoprolol, diuretics Will monitor GERD On Protonix and Pepcid DVT prophylaxis On Eliquis Disposition: Admitted to telemetry floor with acute on chronic diastolic heart failure. She is currently undergoing IV diuresis. Possible DC in next few days. Full code Time spent evaluating patient, direct bedside care, chart review, placing orders, interpretation of diagnostic studies, discussion with consultants, patient, and family members, as well as other required patient management activities is 60 minutes Please note the above document was generated using voice recognition software. It may contain grammatical, syntax or spelling errors. Any formal questions or concerns about the content, text or information contained within the body of this dictation should be directly addressed to the provider for clarification Admission and Anticipated Discharge Date Admission Date: April 08, 2023 Subjective Patient seen and examined at bedside. She reports that she is feeling slightly better. Shortness of breath has improved. Review of Systems Review of Systems: All systems reviewed & are unremarkable except as noted in Subjective Physical Exam Physical Exam: Constitutional: WD/WN, vitals as above, NAD, sitting up in bed, pleasant, conversing easily Respiratory: Bilateral basal crackles present. Cardiovascular: RRR, no murmur, no edema Vessels: no JVD or carotid bruit Chest: normal inspection of chest Abdomen: Soft, nontender Musculoskeletal: no cyanosis or clubbing, extremities motor strength 5/5. 1+ pitting edema Skin: no rashes, warm and dry normal turgor Results & Data Results & Data Vital Signs (Past 12 Hours) Vital Signs Temp Pulse Pulse Resp BP Pulse Ox O2 Del Method 04/09/23 12:03 36.8 C 91 H 20 126/68 91 Room Air 04/09/23 09:00 87 04/09/23 09:00 Room Air 04/09/23 07:05 36.9 C 86 20 129/70 92 Nasal CPAP 04/09/23 04:45 Room Air 04/09/23 04:19 36.6 C 87 20 132/77 91 Nasal Cannula
--- NOTE | 2023-04-09 14:41 | Electrocardiogram Report ---
Test Reason : Blood Pressure : / mmHG Vent. Rate : 098 BPM Atrial Rate : 098 BPM P-R Int : 000 ms QRS Dur : 124 ms QT Int : 330 ms P-R-T Axes : 000 035 233 degrees QTc Int : 421 ms Atrial fibrillation Right bundle branch block T wave abnormality, consider inferolateral ischemia Abnormal ECG When compared with ECG of 08-APR-2023 16:07, (unconfirmed) T wave inversion now evident in Inferior leads T wave inversion now evident in Lateral leads Confirmed by Tor Zurita ([id number]) on 04/09/2023 2:41:14 PM Referred By: Sabine Mosley Confirmed By:Tor Zurita
[2023-04-09] MEDS: DIGOXIN 0.25 MG TAB PO SCH (17:16)
[2023-04-09] MEDS: LANTUS PER UNIT CHARGE SQ SCH (21:59)
[2023-04-09] MEDS: MONTELUKAST SODIUM 10 MG TABLET PO SCH (22:00)
[2023-04-09] MEDS: ATORVASTATIN 40 MG TAB PO SCH (22:00)
[2023-04-09] MEDS: TAMSULOSIN HCL 0.4 MG CAP PO SCH (22:05)
[2023-04-09] MEDS: FAMOTIDINE 20 MG TAB PO SCH (22:05)
[2023-04-10 07:44] LABS: Basophils # (auto) 0.05 K/uL (0.00-0.20); Basophils % (auto) 0.6 %; Eosinophils % (auto) 2.4 %; Hematocrit (blood only) 33.6 % (37.0-47.0); Hemoglobin 10.1 g/dl (12.0-16.0); Immature Granulocytes # (auto) 0.07 K/uL (0.01-0.20); Immature Granulocytes % (auto) 0.8 %; Lymphocytes # (auto) 2.78 K/uL (1.20-3.40); Lymphocytes % (auto) 32.7 %; Mean Corpuscular Hemoglobin 25.4 pg (25.0-34.0); Mean Corpuscular Hgb Conc 30.1 g/dL (32.0-36.0); Mean Corpuscular Volume 84.4 fL (80.0-100.0); Mean Platelet Volume 11.1 fL (9.4-12.4); Monocytes # (auto) 0.96 K/uL (0.11-0.59); Monocytes % (auto) 11.3 %; Neutrophils # (auto) 4.44 K/uL (1.40-6.50); Neutrophils % (auto) 52.2 %; Platelet Count 241 K/uL (130-400); RDW Coefficient of Variation 15.9 % (11.5-14.5); RDW Standard Deviation 49.1 fL (36.4-46.3); Red Blood Count 3.98 M/uL (4.20-5.40)
[2023-04-10 07:59] LABS: Creatinine Clr Calc Pharmacy 77.4 ml/min; Est GFR (African American) 66.1 ml/min; Magnesium 1.5 mg/dl (1.7-2.4)
[2023-04-10] MEDS: UMECLIDINIUM/VILANTEROL 62.5/25MCG 7 PUFFS/INHALER INH SCH (08:40)
[2023-04-10] MEDS: FLUTICASONE FUROATE 100MCG 14 PUFFS/INHALER INH SCH (08:40)
[2023-04-10] MEDS: LANTUS PER UNIT CHARGE SQ SCH ×2 (08:40→21:53)
[2023-04-10] MEDS: INSULIN ASPART PER UNIT CHARGE SC SCH ×4 (08:41→21:53)
[2023-04-10] MEDS: METOPROLOL SUCC 50MG EXT REL TAB PO SCH ×2 (08:41→22:00)
[2023-04-10] MEDS: APIXABAN 5 MG TABLET PO SCH ×2 (08:41→21:59)
[2023-04-10] MEDS: MULTIVITAMIN TAB PO SCH (08:41)
[2023-04-10] MEDS: IPRATROPIUM BROMIDE NASAL SPRAY 0.06% 15ML NAE SCH ×2 (08:42→22:00)
[2023-04-10] MEDS: PANTOprazole 40 MG TAB PO SCH (08:42)
[2023-04-10] MEDS: CHOLECALCIFEROL 5,000 UNITS 125 MCG TAB PO SCH (08:42)
[2023-04-10] MEDS: HYDROCODONE/ACETAMOPHEN 5/325MG TAB PO PRN ×2 (08:46→18:17)
[2023-04-10] MEDS: FUROSEMIDE 40 MG/4 ML VIAL IV SCH ×2 (08:47→18:17)
--- NOTE | 2023-04-10 09:06 | Cardiology Progress Note ---
Date of Service April 10, 2023 Assessment & Plan (1) Acute heart failure with preserved ejection fraction (HFpEF): (2) Persistent atrial fibrillation: (3) Chest pain: (4) Hypertension: Plan Assessment: 72 year-old medically complex female presents with 3 days history of progressively worsening shortness of breath and lower extremity edema, multifactorial. Plan: 1. Acute heart failure with preserved ejection fraction -Echocardiogram demonstrates normal LVEF and wall motion. No significant valvular disease or pulmonary HTN -Continues with modest hypervolemia; however, does report improvement in her overall symptoms since time of admission. -No Daily weight to trend at this time. Negative 3152ml fluid balance. -Cause multifactorial given dietary indiscretions, and medication non- compliance. -Continue with IV diuresis with Furosemide 40mg IV BID, with close monitoring of renal function and electrolytes in addition to daily weight/I&Os. -reassess fluid status in the AM -Stressed the importance in a low sodium diet as well as fluid restriction. Also stressed importance of medication compliance. 2. Persistent atrial fibrillation -Known history and typically rate controlled. -Continue with digoxin 0.25mg Daily -Chads-Vasc score 7 with high risk for thromboembolic event. -Continue Eliquis 5mg PO BID 3. Chest pain: -No ischemic changes on EKG, Troponin negative. -Pain has subsided with increased diuresis and ease of breathing suggestive it was precipitated by her volume status -Continue to monitor on telemetry, no acute events overnight. 4. HTN: - At target. Continue Toprol xl, and furosemide. patient is also on Tamsulo sin for urinary concerns (prior renal calculi) which will also facilitate in BP control. Case has been discussed with Dr. Villanueva. Further recommendations regarding plan of care as per his assessment. I spent a total of 30 minutes on the date of service in preparation, delivery, documentation of the care provided to the patient excluding any time spent in the performance of separately billed services. ELAINA [facility] Admission and Anticipated Discharge Date Admission Date: April 08, 2023 Supervising Physician Co-Signing Physician Notes Patient was seen and personally examined. Feels more comfortable today. Greater than 3 L diuresis overnight. No further chest pain or chest tightness improved with respiratory improvement. No evidence of ischemia by enzyme, EKG or echocardiogram Plan as outlined above continue further diuresis Persistent atrial fibrillation present controlled with digoxin and metoprolol succinate continue as well as anticoagulation Discussed need for medical compliance and CHF and stroke Subjective 04/10/23: Patient seen and examined in follow up today. She is out of bed in the chair and reports improvement in her overall symptoms. She denies any chest pain, pressure, palpitations, pre-syncope or syncope. Reports that her legs are quite sore, but are less swollen. Urine remains dark, hollis catheter is in plac e. Labs, diagnostic testing, vitals and medications have been reviewed. Review of telemetry overnight shows no acute events, remains A-fib 70's-90's. Review of Systems Review of Systems: All systems reviewed & are unremarkable except as noted in HPI & below Physical Exam Constitutional: well developed and + obese; no acute distress Neck: normal visual inspection and trachea midline Respiratory: normal respiratory effort; no respiratory distress Auscultation: + diminished lung sounds (diminished in bilateral bases. ) Cardiovascular: Rate/Rhythm: + irregularly irregular Heart Sounds: normal S1 and normal S2 Vessels: dorsalis pedis pulses present; no JVD Extremities: + edema (+1 BLE edema ) Skin: no rashes, warm and dry Psychiatric: A+Ox3, euthymic affect Results & Data Vital Signs (Past 12 Hours) Vital Signs Temp Pulse Pulse Resp BP Pulse Ox O2 Del Method 04/10/23 07:25 36.7 C 93 H 18 129/70 91 Room Air 04/10/23 05:21 83 04/10/23 02:06 36.8 C 96 H 19 147/81 H 91 CPAP 04/09/23 22:39 Room Air 04/09/23 21:54 36.9 C 96 H 18 142/78 H 95 Room Air Laboratory Results Cardiac Enzymes 04/09/23 04/09/23 Range/Units 11:05 17:03 Troponin I High Sens 6.6 5.8 (0-14) pg/ml CBC 04/10/23 Range/Units 07:13 WBC 8.50 (4.8-10.8) K/ul RBC 3.98 L (4.20-5.40) M/uL Hgb 10.1 L (12.0-16.0) g/dl Hct 33.6 L (37.0-47.0) % Plt Count 241 (130-400) K/uL Neut # (Auto) 4.44 (1.40-6.50) K/uL Lymph # (Auto) 2.78 (1.20-3.40) K/uL [place] # (Auto) 0.96 H (0.11-0.59) K/uL Eos # (Auto) 0.20 (0.00-0.50) K/uL Baso # (Auto) 0.05 (0.00-0.20) K/uL Comprehensive Metabolic Panel 04/10/23 Range/Units 07:13 Sodium 137 (136-145) mmol/L Potassium 4.0 (3.5-5.1) mmol/L Chloride 100 (98-107) mmol/L Carbon Dioxide 28 (21-32) mmol/L BUN 20 (6-23) mg/dl Creatinine 1.00 (0.6-1.2) mg/dl Glucose 295 H (70-99(Fasting)) mg/dl Calcium 9.0 (8.6-10.3) mg/dl Intake and Output 04/09/23 04/10/23 04/10/23 22:59 06:59 14:59 Intake Total 750 / 1000 200 / 1000 Output Total 1500 / 4152 400 / 4152 Balance -750 / -3152 -200 / -3152 Intake: Oral 750 / 950 200 / 950 Output: Urine Amount (Catheter) 1500 / 4150 400 / 4150 Hollis/Indwelling 1500 / 4150 400 / 4150 Other: Weight 148.5 kg Weight Measurement Method Built in [facility] (3) Chest pain Chest pain type: other chest pain Qualified Code(s): R07.89 - Other chest pain (4) Hypertension Hypertension type: primary hypertension Qualified Code(s): I10 - Essential (primary) hypertension
--- NOTE | 2023-04-10 11:39 | Electrocardiogram Report ---
Test Reason : Blood Pressure : / mmHG Vent. Rate : 095 BPM Atrial Rate : 089 BPM P-R Int : 000 ms QRS Dur : 130 ms QT Int : 390 ms P-R-T Axes : 000 015 -26 degrees QTc Int : 490 ms Atrial fibrillation Right bundle branch block Abnormal ECG When compared with ECG of 09-APR-2023 09:49, T wave inversion no longer evident in Lateral leads QT has lengthened Confirmed by Tor Zurita ([id number]) on 04/10/2023 11:39:16 AM Referred By: Sabine Mosley Confirmed By:Tor Zurita
[2023-04-10] MEDS: cefTRIAXone SODIUM 2,000 MG in DEXTROSE 5 % MINI-B 50 ML IV SCH (12:07)
[2023-04-10] MEDS: MAGNESIUM OXIDE 400 MG TAB PO SCH (12:08)
--- NOTE | 2023-04-10 13:38 | Hospitalist Progress Note ---
Date of Service April 10, 2023 Assessment & Plan (1) Acute heart failure with preserved ejection fraction (HFpEF): Plan: 72-year-old female with past med history significant for type 2 diabetes, hyperlipidemia, COPD, obstructive sleep apnea on CPAP, chronic diastolic CHF, history of CVA, longstanding persistent atrial fibrillation, hypertension, morbid obesity, GERD, bipolar 2 disorder, depression, former smoker presents with ongoing shortness of breath for last few days. Acute on chronic CHF Patient presents with shortness of breath and lower extremity edema Chest x-ray personally reviewed; presence of pulmonary vascular congestion. Patient's reported noncompliance with torsemide at home Echocardiogram shows EF of 60 to 65% with mild concentric LVH. Continue on Lasix 40 mg twice daily. Discussed with Dr. Villanueva from cardiology. Daily weights and I's and O's Monitoring in telemetry Chest pain EKG on admission personally reviewed; atrial fibrillation with RBBB High sensitive troponin negative Cardiology on board; appreciate recommendation Acute UTI Urine analysis suggestive of infection Urine Cx E.coli; resistant to amoxicillin and Floroquinolones. Currently on ceftriaxone Plan to treat for 3 to 5 days Obstructive sleep apnea CPAP nightly History of COPD Continue home inhalers Type II diabetes on Lantus to 30 units twice daily and insulin sliding scale We will follow blood sugars and HbA1c levels Glycemic pharmacy consult History of atrial fibrillation Rate control with metoprolol succinate and digoxin On Eliquis Hyperlipidemia On statin Hypertension On metoprolol, diuretics Will monitor GERD On Protonix and Pepcid DVT prophylaxis On Eliquis Disposition: Admitted to telemetry floor with acute on chronic diastolic heart failure. She is currently undergoing IV diuresis. Possible DC in next few days. Full code Time spent evaluating patient, direct bedside care, chart review, placing orders, interpretation of diagnostic studies, discussion with consultants, patient, and family members, as well as other required patient management activities is 60 minutes Please note the above document was generated using voice recognition software. It may contain grammatical, syntax or spelling errors. Any formal questions or concerns about the content, text or information contained within the body of this dictation should be directly addressed to the provider for clarification Admission and Anticipated Discharge Date Admission Date: April 08, 2023 Subjective Patient seen and examined at bedside. She reports that she is feeling much better in terms of her breathing. She still reports shortness of breath on exertion. Urine output of 4 L in the last 24 hours. Review of Systems Review of Systems: All systems reviewed & are unremarkable except as noted in Subjective Physical Exam Physical Exam: Constitutional: WD/WN, vitals as above, NAD, sitting up in bed, pleasant, conversing easily Respiratory: Bilateral basal crackles present. Improved from yesterday's. Cardiovascular: RRR, no murmur, no edema Vessels: no JVD or carotid bruit Chest: normal inspection of chest Abdomen: Soft, nontender Musculoskeletal: no cyanosis or clubbing, extremities motor strength 5/5. 1+ pitting edema Skin: no rashes, warm and dry normal turgor Results & Data Results & Data Vital Signs (Past 12 Hours) Vital Signs Temp Pulse Pulse Resp BP Pulse Ox O2 Del Method 04/10/23 12:15 36.7 C 99 H 19 144/69 H 91 Room Air 04/10/23 09:00 93 H 04/10/23 09:00 Room Air 04/10/23 07:25 36.7 C 93 H 18 129/70 91 Room Air 04/10/23 05:21 83 04/10/23 02:06 36.8 C 96 H 19 147/81 H 91 CPAP
--- NOTE | 2023-04-10 15:28 | Pharmacy Report ---
Pharmacy Glycemic Short Note 2 - Date of Service April 10, 2023 - Glycemic Short BSG Results (Last 24 hours): 04/09/23 04/09/23 04/10/23 16:20 20:19 07:08 Glucose POC Glucose 296 H 244 H 316 H* 04/10/23 04/10/23 04/10/23 07:10 07:13 11:19 Glucose 295 H POC Glucose 296 H 361 H* 04/10/23 11:21 Glucose POC Glucose 354 H* OUTPATIENT ANTIDIABETIC REGIMEN: * Lantus 65 units SQ BID * Novolog SS (20-25 units BIDM, patient reports that she has needed more to be below 200 per med rec) * metformin 1000mg BIDM * HbA1c 8.6% 03/08/23 ASSESSMENT: 04/10 * Tiffanie received 305 units of insulin yesterday (150 were basal) * Fasting BSG this AM elevated, increase basal insulin slightly, allow for a lower dose if BSGs below goal range * She continues on ceftriaxone for urinary infection. * BSGs uncontrolled, tighten carbohydrate ratio. 04/09: * Tiffanie is a 72 YOF admitted with shortness of breath and a history of T2DM. Pharmacy has been consulted to assist with glycemic management while inpatient. She is familiar to the service and typically has high insulin requirements. * Fasting BSGs this AM significantly elevated, half home dose Lantus ordered BID due to NPO status. * BSGs corrected twice with Novolog early this AM, IV insulin regular bolus ordered but held for concern for stacking. Before breakfast BSG still elevated, 5 units of IV regular insulin reordered at this time, correctional Novolog withheld due to NPO status and previous corrections. Lantus also given. * Lunchtime BSG increased further, likely due to insufficient correctional Novolog and additional of diet without carbohydrate coverage for breakfast. Novolog initiated at previously successful parameters. * Additional Lantus given at lunchtime to return to dosage that previously provided better control on previous admissions. PLAN FOR INPATIENT GLYCEMIC CONTROL: * Hold outpatient oral diabetes medications * Basal insulin * Lantus 80 units SQ BID (65 units if BSG is below goal range) * Bolus insulin * NovoLog per scale ACHS or Q6hrs while NPO * Goal Range: Low 110 mg/dL - High 140 mg/dL * Correction Factor: 6 mg/dL/unit * Nutritional / Prandial insulin per carb ratio of 1 unit per 1.5 grams CHO consumed
[2023-04-10] MEDS: DIGOXIN 0.25 MG TAB PO SCH (15:53)
[2023-04-10] MEDS: ATORVASTATIN 40 MG TAB PO SCH (21:59)
[2023-04-10] MEDS: FAMOTIDINE 20 MG TAB PO SCH (21:59)
[2023-04-10] MEDS: MONTELUKAST SODIUM 10 MG TABLET PO SCH (22:01)
[2023-04-10] MEDS: TAMSULOSIN HCL 0.4 MG CAP PO SCH (22:01)
[2023-04-11] MEDS: BACLOFEN 10 MG TAB PO PRN (02:13)
[2023-04-11 06:35] LABS: Basophils # (auto) 0.06 K/uL (0.00-0.20); Basophils % (auto) 0.7 %; Eosinophils # (auto) 0.25 K/uL (0.00-0.50); Hematocrit (blood only) 30.8 % (37.0-47.0); Hemoglobin 9.3 g/dl (12.0-16.0); Immature Granulocytes # (auto) 0.08 K/uL (0.01-0.20); Lymphocytes # (auto) 2.47 K/uL (1.20-3.40); Mean Corpuscular Hemoglobin 25.4 pg (25.0-34.0); Mean Corpuscular Hgb Conc 30.2 g/dL (32.0-36.0); Mean Corpuscular Volume 84.2 fL (80.0-100.0); Mean Platelet Volume 11.6 fL (9.4-12.4); Monocytes # (auto) 0.95 K/uL (0.11-0.59); Monocytes % (auto) 11.5 %; Neutrophils # (auto) 4.43 K/uL (1.40-6.50); Neutrophils % (auto) 53.8 %; Nucleated RBC # (auto) 0.03 K/uL (0.00-0.12); Nucleated RBC % (auto) 0.4 %; Platelet Count 241 K/uL (130-400); RDW Coefficient of Variation 15.8 % (11.5-14.5); RDW Standard Deviation 47.9 fL (36.4-46.3); Red Blood Count 3.66 M/uL (4.20-5.40); White Blood Count 8.24 K/ul (4.8-10.8)
[2023-04-11 06:56] LABS: BUN Creatinine Ratio 22.5 (10-20); Calcium 8.9 mg/dl (8.6-10.3); Est GFR (African American) 64.5 ml/min; Est GFR (Non-African American) 55.7 ml/min; Potassium 3.9 mmol/L (3.5-5.1)
[2023-04-11] MEDS: APIXABAN 5 MG TABLET PO SCH ×2 (08:04→20:15)
[2023-04-11] MEDS: CHOLECALCIFEROL 5,000 UNITS 125 MCG TAB PO SCH (08:04)
[2023-04-11] MEDS: METOPROLOL SUCC 50MG EXT REL TAB PO SCH ×2 (08:05→20:15)
[2023-04-11] MEDS: FLUTICASONE FUROATE 100MCG 14 PUFFS/INHALER INH SCH (08:05)
[2023-04-11] MEDS: MULTIVITAMIN TAB PO SCH (08:05)
[2023-04-11] MEDS: PANTOprazole 40 MG TAB PO SCH (08:05)
[2023-04-11] MEDS: IPRATROPIUM BROMIDE NASAL SPRAY 0.06% 15ML NAE SCH ×2 (08:06→20:16)
[2023-04-11] MEDS: UMECLIDINIUM/VILANTEROL 62.5/25MCG 7 PUFFS/INHALER INH SCH (08:06)
[2023-04-11] MEDS: LANTUS PER UNIT CHARGE SQ SCH ×2 (08:24→20:40)
[2023-04-11] MEDS: INSULIN ASPART PER UNIT CHARGE SC SCH ×4 (08:24→20:39)
[2023-04-11] MEDS: FUROSEMIDE 40 MG/4 ML VIAL IV SCH ×2 (08:28→17:09)
[2023-04-11] MEDS: MAGNESIUM OXIDE 400 MG TAB PO SCH ×2 (11:20→20:15)
[2023-04-11] MEDS: ACETAMINOPHEN 325 MG TAB PO PRN (11:33)
[2023-04-11] MEDS: cefTRIAXone SODIUM 2,000 MG in DEXTROSE 5 % MINI-B 50 ML IV SCH (12:49)
--- NOTE | 2023-04-11 14:06 | Hospitalist Progress Note ---
Date of Service April 11, 2023 Assessment & Plan (1) Acute heart failure with preserved ejection fraction (HFpEF): Plan: 72-year-old female with past med history significant for type 2 diabetes, hyperlipidemia, COPD, obstructive sleep apnea on CPAP, chronic diastolic CHF, history of CVA, longstanding persistent atrial fibrillation, hypertension, morbid obesity, GERD, bipolar 2 disorder, depression, former smoker presents with ongoing shortness of breath for last few days. Acute on chronic CHF Patient presents with shortness of breath and lower extremity edema Chest x-ray personally reviewed; presence of pulmonary vascular congestion. Patient's reported noncompliance with torsemide at home Echocardiogram shows EF of 60 to 65% with mild concentric LVH. Continue on Lasix 40 mg twice daily. Discussed with cardiology Daily weights and I's and O's Monitoring in telemetry Chest pain EKG on admission personally reviewed; atrial fibrillation with RBBB High sensitive troponin negative Chest pain resolved. Acute UTI Urine analysis suggestive of infection Urine Cx E.coli; resistant to amoxicillin and Floroquinolones. Currently on ceftriaxone Plan to treat for 5 days Obstructive sleep apnea CPAP nightly History of COPD Continue home inhalers Type II diabetes on Lantus to 30 units twice daily and insulin sliding scale Glycemic pharmacy consult History of atrial fibrillation Rate control with metoprolol succinate and digoxin On Eliquis Hyperlipidemia On statin Hypertension On metoprolol, diuretics Will monitor GERD On Protonix and Pepcid DVT prophylaxis On Eliquis Disposition: Admitted to telemetry floor with acute on chronic diastolic heart failure. She is currently undergoing IV diuresis. Possible DC in next few days. Full code Time spent evaluating patient, direct bedside care, chart review, placing orders, interpretation of diagnostic studies, discussion with consultants, patient, and family members, as well as other required patient management activities is 50 minutes Please note the above document was generated using voice recognition software. It may contain grammatical, syntax or spelling errors. Any formal questions or concerns about the content, text or information contained within the body of this dictation should be directly addressed to the provider for clarification Admission and Anticipated Discharge Date Admission Date: April 08, 2023 Subjective Patient seen and examined at bedside. Comfortable; not in distress. Reports that her shortness of breath has improved slightly Denies fever, chills, chest pain, abdominal pain or urinary symptoms. No significant overnight events Review of Systems Review of Systems: All systems reviewed & are unremarkable except as noted in Subjective Physical Exam Physical Exam: Constitutional: WD/WN, vitals as above, NAD, sitting up in bed, pleasant, conversing easily Respiratory: Bilateral basal crackles present. Improved from yesterday's. Cardiovascular: RRR, no murmur, no edema Vessels: no JVD or carotid bruit Chest: normal inspection of chest Abdomen: Soft, nontender Musculoskeletal: no cyanosis or clubbing, extremities motor strength 5/5. 1+ pitting edema Skin: no rashes, warm and dry normal turgor Results & Data Results & Data Vital Signs (Past 12 Hours) Vital Signs Temp Pulse Pulse Resp BP Pulse Ox O2 Del Method 04/11/23 11:42 37.0 C 93 H 18 132/78 92 CPAP 04/11/23 10:06 94 H 04/11/23 08:04 36.6 C 69 18 116/69 95 Room Air 04/11/23 03:00 36.9 C 87 18 119/75 91 Room Air
--- NOTE | 2023-04-11 15:13 | Communication Note ---
Date of Service: April 11, 2023 Pt resting / sleeping comfortably with positive pressure ventilation and sleep mask. Miller catheter in place draining concentrated yellow urine. Telemetry reveals SR AF in the 80s. Legs with 2+ edema, erythema Glucose 317 this am. -Continue IV furosemide and Eliquis.
[2023-04-11] MEDS: DIGOXIN 0.25 MG TAB PO SCH (16:58)
[2023-04-11] MEDS: TAMSULOSIN HCL 0.4 MG CAP PO SCH (20:15)
[2023-04-11] MEDS: ATORVASTATIN 40 MG TAB PO SCH (20:15)
[2023-04-11] MEDS: FAMOTIDINE 20 MG TAB PO SCH (20:15)
[2023-04-11] MEDS: MONTELUKAST SODIUM 10 MG TABLET PO SCH (20:15)
[2023-04-12] MEDS: BACLOFEN 10 MG TAB PO PRN (03:46)
[2023-04-12] MEDS: HYDROCODONE/ACETAMOPHEN 5/325MG TAB PO PRN (03:46)
[2023-04-12 08:26] LABS: Basophils # (auto) 0.07 K/uL (0.00-0.20); Basophils % (auto) 0.7 %; Eosinophils # (auto) 0.29 K/uL (0.00-0.50); Eosinophils % (auto) 2.9 %; Hematocrit (blood only) 32.1 % (37.0-47.0); Hemoglobin 9.8 g/dl (12.0-16.0); Immature Granulocytes # (auto) 0.09 K/uL (0.01-0.20); Immature Granulocytes % (auto) 0.9 %; Lymphocytes # (auto) 3.14 K/uL (1.20-3.40); Lymphocytes % (auto) 31.3 %; Mean Corpuscular Hemoglobin 25.2 pg (25.0-34.0); Mean Corpuscular Hgb Conc 30.5 g/dL (32.0-36.0); Mean Corpuscular Volume 82.5 fL (80.0-100.0); Neutrophils # (auto) 5.44 K/uL (1.40-6.50); Neutrophils % (auto) 54.2 %; Nucleated RBC # (auto) 0.03 K/uL (0.00-0.12); Nucleated RBC % (auto) 0.3 %; Platelet Count 237 K/uL (130-400); RDW Coefficient of Variation 15.9 % (11.5-14.5); RDW Standard Deviation 47.7 fL (36.4-46.3); Red Blood Count 3.89 M/uL (4.20-5.40); White Blood Count 10.03 K/ul (4.8-10.8)
[2023-04-12] MEDS: FUROSEMIDE 40 MG/4 ML VIAL IV SCH (08:28)
[2023-04-12] MEDS: MULTIVITAMIN TAB PO SCH (08:28)
[2023-04-12] MEDS: LANTUS PER UNIT CHARGE SC SCH (08:28)
[2023-04-12] MEDS: INSULIN ASPART PER UNIT CHARGE SC SCH ×4 (08:28→20:55)
[2023-04-12] MEDS: CHOLECALCIFEROL 5,000 UNITS 125 MCG TAB PO SCH (08:28)
[2023-04-12] MEDS: MAGNESIUM OXIDE 400 MG TAB PO SCH ×2 (08:29→20:57)
[2023-04-12] MEDS: APIXABAN 5 MG TABLET PO SCH ×2 (08:29→20:56)
[2023-04-12] MEDS: METOPROLOL SUCC 50MG EXT REL TAB PO SCH ×2 (08:29→20:58)
[2023-04-12] MEDS: PANTOprazole 40 MG TAB PO SCH (08:29)
[2023-04-12] MEDS: UMECLIDINIUM/VILANTEROL 62.5/25MCG 7 PUFFS/INHALER INH SCH (08:29)
[2023-04-12] MEDS: FLUTICASONE FUROATE 100MCG 14 PUFFS/INHALER INH SCH (08:29)
[2023-04-12] MEDS: IPRATROPIUM BROMIDE NASAL SPRAY 0.06% 15ML NAE SCH ×2 (08:30→20:58)
[2023-04-12 08:42] LABS: Calcium 9.1 mg/dl (8.6-10.3); Creatinine Clr Calc Pharmacy 76.6 ml/min; Est GFR (African American) 66.1 ml/min; Potassium 3.7 mmol/L (3.5-5.1)
[2023-04-12] MEDS ORDERED: MAGNESIUM HYDROXIDE SUSP 30 ML UDC PO ONE (09:41)
[2023-04-12] MEDS: POLYETHYLENE (MIRALAX) 17 GM PACK PO SCH (11:19)
[2023-04-12] MEDS: cefTRIAXone SODIUM 2,000 MG in DEXTROSE 5 % MINI-B 50 ML IV SCH (12:19)
--- NOTE | 2023-04-12 12:56 | Cardiology Progress Note ---
Date of Service April 12, 2023 Assessment & Plan (1) Acute heart failure with preserved ejection fraction (HFpEF): (2) Persistent atrial fibrillation: (3) Chest pain: (4) Hypertension: Plan -edema improved compared to her prior baseline when I had seen her in January,. 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 -Continue digoxin and metoprolol. -Continue Eliquis. Volume status improved. But still has high blood glucose. Admission and Anticipated Discharge Date Admission Date: April 08, 2023 Subjective Pt seen in follow up . Awake . Sitting in bedside chair. Miller catheter remains in place. Telemetry reveals rate controlled AF in the 80s. Physical Exam Constitutional: well developed and + obese; no acute distress Neck: normal visual inspection and trachea midline Respiratory: normal respiratory effort; no respiratory distress Auscultation: + diminished lung sounds (mildly diminished in bilateral bases. ) Cardiovascular: Rate/Rhythm: + irregularly irregular Heart Sounds: normal S1 and normal S2 Vessels: dorsalis pedis pulses present; no JVD Extremities: + edema (+1 BLE edema ) Skin: no rashes, warm and dry Psychiatric: A+Ox3, euthymic affect Results & Data Vital Signs (Past 12 Hours) Vital Signs Temp Pulse Resp BP Pulse Ox O2 Del Method 04/12/23 12:32 36.5 C 89 21 137/68 93 Room Air 04/12/23 08:10 36.8 C 76 18 127/72 91 CPAP 04/12/23 03:31 Room Air 04/12/23 03:18 36.4 C L 87 18 141/94 H 90 Room Air Laboratory Results CBC 04/12/23 Range/Units 07:36 WBC 10.03 (4.8-10.8) K/ul RBC 3.89 L (4.20-5.40) M/uL Hgb 9.8 L (12.0-16.0) g/dl Hct 32.1 L (37.0-47.0) % Plt Count 237 (130-400) K/uL Neut # (Auto) 5.44 (1.40-6.50) K/uL Lymph # (Auto) 3.14 (1.20-3.40) K/uL [place] # (Auto) 1.00 H (0.11-0.59) K/uL Eos # (Auto) 0.29 (0.00-0.50) K/uL Baso # (Auto) 0.07 (0.00-0.20) K/uL Comprehensive Metabolic Panel 04/12/23 Range/Units 07:36 Sodium 136 (136-145) mmol/L Potassium 3.7 (3.5-5.1) mmol/L Chloride 96 L (98-107) mmol/L Carbon Dioxide 30 (21-32) mmol/L BUN 25 H (6-23) mg/dl Creatinine 1.00 (0.6-1.2) mg/dl Glucose 287 H (70-99(Fasting)) mg/dl Calcium 9.1 (8.6-10.3) mg/dl Intake and Output 04/11/23 04/12/23 04/12/23 22:59 06:59 14:59 Intake Total 236 / 676 150 / 676 Output Total 850 / 2526 525 / 2526 Balance -614 / -1850 -375 / -1850 Intake: Oral 236 / 626 150 / 626 Output: Urine Amount (Catheter) 850 / 2525 525 / 2525 [place]/Indwelling 850 / 2525 525 / 2525 Other: Weight 146.2 kg Weight Measurement Method Built in [facility] (3) Chest pain Chest pain type: other chest pain Qualified Code(s): R07.89 - Other chest pain (4) Hypertension Hypertension type: primary hypertension Qualified Code(s): I10 - Essential (primary) hypertension
--- NOTE | 2023-04-12 14:09 | Hospitalist Progress Note ---
Date of Service April 12, 2023 Assessment & Plan (1) Acute heart failure with preserved ejection fraction (HFpEF): Plan: 72-year-old female with past med history significant for type 2 diabetes, hyperlipidemia, COPD, obstructive sleep apnea on CPAP, chronic diastolic CHF, history of CVA, longstanding persistent atrial fibrillation, hypertension, morbid obesity, GERD, bipolar 2 disorder, depression, former smoker presents with ongoing shortness of breath for last few days. Acute on chronic CHF Patient presents with shortness of breath and lower extremity edema Chest x-ray personally reviewed; presence of pulmonary vascular congestion. Patient's reported noncompliance with torsemide at home Echocardiogram shows EF of 60 to 65% with mild concentric LVH. Continue on Lasix 40 mg twice daily. Discussed with cardiology Daily weights and I's and O's Monitoring in telemetry Plan to switch over to torsemide 40 mg once a day. Chest pain EKG on admission personally reviewed; atrial fibrillation with RBBB High sensitive troponin negative Chest pain resolved. Acute UTI Urine analysis suggestive of infection Urine Cx E.coli; resistant to amoxicillin and Floroquinolones. Currently on ceftriaxone Plan to treat for 5 days Obstructive sleep apnea CPAP nightly History of COPD Continue home inhalers Type II diabetes on Lantus to 30 units twice daily and insulin sliding scale Glycemic pharmacy consult History of atrial fibrillation Rate control with metoprolol succinate and digoxin On Eliquis Hyperlipidemia On statin Hypertension On metoprolol, diuretics Will monitor GERD On Protonix and Pepcid DVT prophylaxis On Eliquis Disposition: Admitted to telemetry floor with acute on chronic diastolic heart failure. She is currently undergoing IV diuresis. Possible DC in a.m. Full code Time spent evaluating patient, direct bedside care, chart review, placing orders, interpretation of diagnostic studies, discussion with consultants, patient, and family members, as well as other required patient management activities is 50 minutes Please note the above document was generated using voice recognition software. It may contain grammatical, syntax or spelling errors. Any formal questions or concerns about the content, text or information contained within the body of this dictation should be directly addressed to the provider for clarification Admission and Anticipated Discharge Date Admission Date: April 08, 2023 Subjective Patient seen and examined at bedside. Comfortable; not in distress. She reports that her shortness of breath has improved. Denies fever, chills, chest pain, shortness of breath, abdominal pain or urinary symptoms. No significant overnight events Review of Systems Review of Systems: All systems reviewed & are unremarkable except as noted in Subjective Physical Exam Physical Exam: Constitutional: WD/WN, vitals as above, NAD, sitting up in bed, pleasant, conversing easily Respiratory: Bilateral basal crackles present. Improved from yesterday's. Cardiovascular: RRR, no murmur, no edema Vessels: no JVD or carotid bruit Chest: normal inspection of chest Abdomen: Soft, nontender Musculoskeletal: no cyanosis or clubbing, extremities motor strength 5/5. 1+ pitting edema Skin: no rashes, warm and dry normal turgor Results & Data Results & Data Vital Signs (Past 12 Hours) Vital Signs Temp Pulse Resp BP Pulse Ox O2 Del Method 04/12/23 13:37 Room Air 04/12/23 12:32 36.5 C 89 21 137/68 93 Room Air 04/12/23 08:10 36.8 C 76 18 127/72 91 CPAP 04/12/23 03:31 Room Air 04/12/23 03:18 36.4 C L 87 18 141/94 H 90 Room Air
[2023-04-12] MEDS ORDERED: FUROSEMIDE 40 MG/4 ML VIAL IV ONE (16:00)
[2023-04-12] MEDS: DIGOXIN 0.25 MG TAB PO SCH (16:46)
[2023-04-12] MEDS: ACETAMINOPHEN 325 MG TAB PO PRN (17:31)
[2023-04-12] MEDS: FAMOTIDINE 20 MG TAB PO SCH (20:56)
[2023-04-12] MEDS: ATORVASTATIN 40 MG TAB PO SCH (20:56)
[2023-04-12] MEDS: TAMSULOSIN HCL 0.4 MG CAP PO SCH (20:57)
[2023-04-12] MEDS: MONTELUKAST SODIUM 10 MG TABLET PO SCH (20:57)
[2023-04-12] MEDS ORDERED: LANTUS PER UNIT CHARGE SC SCH ×2 (21:00)
[2023-04-13] MEDS ORDERED: INSULIN ASPART PER UNIT CHARGE SC ONE (02:00)
[2023-04-13] MEDS: HYDROCODONE/ACETAMOPHEN 5/325MG TAB PO PRN ×2 (02:59→12:57)
[2023-04-13] MEDS: BACLOFEN 10 MG TAB PO PRN (03:00)
[2023-04-13 07:51] LABS: Basophils # (auto) 0.08 K/uL (0.00-0.20); Basophils % (auto) 0.8 %; Eosinophils # (auto) 0.41 K/uL (0.00-0.50); Eosinophils % (auto) 4.1 %; Hematocrit (blood only) 31.5 % (37.0-47.0); Hemoglobin 9.7 g/dl (12.0-16.0); Immature Granulocytes # (auto) 0.09 K/uL (0.01-0.20); Immature Granulocytes % (auto) 0.9 %; Lymphocytes # (auto) 2.82 K/uL (1.20-3.40); Lymphocytes % (auto) 28.5 %; Mean Corpuscular Hemoglobin 25.1 pg (25.0-34.0); Mean Corpuscular Hgb Conc 30.8 g/dL (32.0-36.0); Mean Corpuscular Volume 81.6 fL (80.0-100.0); Mean Platelet Volume 11.1 fL (9.4-12.4); Monocytes # (auto) 1.13 K/uL (0.11-0.59); Monocytes % (auto) 11.4 %; Neutrophils # (auto) 5.38 K/uL (1.40-6.50); Neutrophils % (auto) 54.3 %; Nucleated RBC # (auto) 0.03 K/uL (0.00-0.12); Nucleated RBC % (auto) 0.3 %; Platelet Count 242 K/uL (130-400); RDW Standard Deviation 47.2 fL (36.4-46.3); Red Blood Count 3.86 M/uL (4.20-5.40); White Blood Count 9.91 K/ul (4.8-10.8)
[2023-04-13 08:12] LABS: BUN Creatinine Ratio 24.5 (10-20); Calcium 8.8 mg/dl (8.6-10.3); Creatinine Clr Calc Pharmacy 77.9 ml/min; Est GFR (African American) 67.7 ml/min; Est GFR (Non-African American) 58.4 ml/min; Potassium 3.5 mmol/L (3.5-5.1)
[2023-04-13] MEDS: UMECLIDINIUM/VILANTEROL 62.5/25MCG 7 PUFFS/INHALER INH SCH (08:21)
[2023-04-13] MEDS: POLYETHYLENE (MIRALAX) 17 GM PACK PO SCH (08:21)
[2023-04-13] MEDS: FLUTICASONE FUROATE 100MCG 14 PUFFS/INHALER INH SCH (08:21)
[2023-04-13] MEDS: IPRATROPIUM BROMIDE NASAL SPRAY 0.06% 15ML NAE SCH (08:21)
[2023-04-13] MEDS: MAGNESIUM OXIDE 400 MG TAB PO SCH (08:22)
[2023-04-13] MEDS: PANTOprazole 40 MG TAB PO SCH (08:22)
[2023-04-13] MEDS: MULTIVITAMIN TAB PO SCH (08:22)
[2023-04-13] MEDS: CHOLECALCIFEROL 5,000 UNITS 125 MCG TAB PO SCH (08:23)
[2023-04-13] MEDS: METOPROLOL SUCC 50MG EXT REL TAB PO SCH (08:23)
[2023-04-13] MEDS: INSULIN ASPART PER UNIT CHARGE SC SCH ×3 (08:23→17:28)
[2023-04-13] MEDS: APIXABAN 5 MG TABLET PO SCH (08:23)
[2023-04-13] MEDS: LANTUS PER UNIT CHARGE SC SCH (08:24)
[2023-04-13] MEDS ORDERED: TORSEMIDE 10 MG TAB PO SCH (09:00)
--- NOTE | 2023-04-13 12:47 | Discharge Summary ---
Date of Service April 13, 2023 Admission HPI Per Admitting Provider 72-year-old female with past med history significant for type 2 diabetes, hyperlipidemia, COPD, obstructive sleep apnea on CPAP, chronic diastolic CHF, history of CVA, longstanding persistent atrial fibrillation, hypertension, morbid obesity, GERD, bipolar 2 disorder, depression, former smoker presents with ongoing shortness of breath for last few days. Walking short distance making her short of breath. She ambulates with walker. States having on and off stabbing chest pains. Currently there is no chest pain. She states she drank 2 gallons of milk in 2 days and wondering whether it could be contributing to her symptoms. Has some headache and neck pain. Vision is okay. No runny nose or sore throat. No cough. No fevers. Currently no nausea. No abdominal pain. Normal bowel and bladder movements. Legs are somewhat swollen but she thinks they are better than last time. She is sleeps in elevated bed. Past medical history. As mentioned above Past surgical history. Right breast biopsy. Colonoscopy cystoscopy tonsillectomy. Repair of nasal septum. Total abdominal hysterectomy with removal of tubes. Family history. Father has chronic rhinitis. COPD. Cancer. Nasal issues. Mother had breast cancer. Maternal grandmother had diabetes. Paternal grandmother had diabetes Social history. . Quit smoking 12/2012. Smoked 2 packs a day for 30 years. No alcohol use. No drug use. Admission Exam Per Admitting Provider General- Not in distress Head- atraumatic Eyes- PERRL. ENT- oropharynx clear Neck- supple, no JVD. Lungs- clear to auscultation mild bibasilar crackles. Heart- regular rhythm; no murmur, no gallop. Abdomen- normal bowel sounds, soft, nontender, no distension. Extremities- b/l lower extremity edema present , chronic skin changes seen. Neuro- alert, oriented x 3; PERRL, no facial palsy; no dysarthria; moves extremities. Principal Diagnosis Acute on chronic diastolic heart failure Discharge Exam Constitutional: WD/WN, vitals as above, NAD, sitting up in bed, pleasant, conversing easily Respiratory: Occasional crackles at baseline. Cardiovascular: RRR, no murmur, no edema Vessels: no JVD or carotid bruit Chest: normal inspection of chest Abdomen: Soft, nontender Musculoskeletal: no cyanosis or clubbing, extremities motor strength 5/5. 1+ pitting edema Skin: no rashes, warm and dry normal turgor Discharge Data Allergies Allergy/AdvReac Type Severity Reaction Status Date / Time Cephalosporins Allergy Intermediate RASH Verified 03/07/23 12:54 Sulfa (Sulfonamide Allergy Intermediate "Sulfa Verified 03/07/23 12:54 Antibiotics) Drugs = rash" terconazole Allergy Intermediate ITCHING, Verified 03/07/23 12:54 BURNING clarithromycin Allergy Unknown UNKNOWN Verified 03/07/23 12:54 clavulanic acid Allergy Unknown UNKNOWN Verified 03/07/23 12:54 clobetasol Allergy Unknown Unknown Verified 03/07/23 12:54 adhesive AdvReac Mild BAND-AIDS Verified 03/07/23 12:54 = SKIN IRRITATION Consultations 04/08/23 19:11 ED Decision to Admit Stat 04/09/23 08:00 Consult Cardiology Routine Hospital Course (1) Acute heart failure with preserved ejection fraction (HFpEF): 72-year-old female with past med history significant for type 2 diabetes, hyperlipidemia, COPD, obstructive sleep apnea on CPAP, chronic diastolic CHF, history of CVA, longstanding persistent atrial fibrillation, hypertension, morbid obesity, GERD, bipolar 2 disorder, depression, former smoker presents with ongoing shortness of breath for last few days. Acute on chronic CHF Patient presents with shortness of breath and lower extremity edema Chest x-ray personally reviewed; presence of pulmonary vascular congestion. Patient's reported noncompliance with torsemide at home Echocardiogram shows EF of 60 to 65% with mild concentric LVH. During the hospitalization, patient was diuresed with IV Lasix 40 mg twice a day. She had brisk diuresis during the hospitalization with total of -10 L during the hospitalization. Cardiology was consulted for comanagement; they recommend torsemide 40 mg once a day at discharge. Discussed medical compliance at discharge. Acute UTI Urine analysis suggestive of infection Urine Cx E.coli; resistant to amoxicillin and Floroquinolones. Treated with ceftriaxone during the hospitalization. Please note the above document was generated using voice recognition software. It may contain grammatical, syntax or spelling errors. Any formal questions or concerns about the content, text or information contained within the body of this dictation should be directly addressed to the provider for clarification Total Time Total Time Spent Total Time Spent (In Minutes): 45 Total Time Includes: Examination of the Patient, Discharge Planning, Medication Reconciliation, Communication With Other Providers and Other Discharge Plan Discharge Items Patient Disposition: Home - Self-Care Reason For Visit: ACUTE DIASTOLIC CHF, CHEST PAIN Discharge Diagnosis: Acute on chronic diastolic CHF. Activity: Resume your previous activity Non-emergency contact: Primary Care Provider Call non-emergency contact if: you have any medication questions and your symptoms worsen Follow-up/Referrals: Sabine Mosley DO [Primary Care Provider] - 04/17/23 11:00 am Diet: Carb Consistent or DM2 Addtl Attending Provider Instructions: You were admitted to the hospital due to heart failure exacerbation. You were evaluated by cardiology during the hospitalization. They recommend that you were started on torsemide 40 mg once a day. Please measure your weight daily at home. Please make a note of it. If you notice your weight is going up by 3 to 5 pounds and noticed leg swelling; please take an extra dose of torsemide 40 mg in the afternoon. Please contact your primary care doctor as well. Please take 65 units of Lantus twice a day in the morning and night. Please take 30 units of NovoLog prior to meals (breakfast, lunch and dinner) Please follow-up with your primary care doctor as scheduled. Pending Studies at Discharge: No Stand-Alone Forms: [employer], Smoking Cessation Medications and DC Order Prescriptions: New torsemide 40 mg tablet 40 mg PO DAILY Qty: 30 0RF Continued levalbuterol HCl 0.63 mg/3 mL Solution For Nebulization 0.63 mg INHALATION Q4 PRN (Reason: Wheezing) hydrocodone-acetaminophen 5-325 mg tablet 1 tab PO Q6 PRN (Reason: Pain) hydrocortisone acetate 25 mg suppository 25 mg AK BID PRN (Reason: Hemorrhoids) famotidine 20 mg tablet 20 mg PO QPM tamsulosin 0.4 mg capsule 0.4 mg PO HS baclofen 10 mg Tablet 10 mg PO BID PRN (Reason: Muscle Pain) pantoprazole 40 mg tablet,delayed release (DR/EC) 40 mg PO QAM metformin 1,000 mg tablet 1,000 mg PO BID triamcinolone acetonide 0.1 % Ointment 1 applic TOPICAL BID PRN (Reason: .flare ups) nystatin-triamcinolone 100,000-0.1 unit/g-% cream 1 applic TOPICAL BID PRN (Reason: .flare ups) montelukast 10 mg Tablet 10 mg PO QPM nystatin 100,000 unit/gram powder 1 applic TOPICAL BID Rx Instructions: Apply 0.5 g to groin ipratropium bromide 21 mcg (0.03 %) spray,non-aerosol 2 spray INTRANASAL [facility] insulin glargine [Basaglar KwikPen U-100 Insulin] 100 unit/mL (3 mL) insulin pen 65 unit SUBCUT BID Eliquis 5 mg Tablet 5 mg PO BID atorvastatin 40 mg tablet 40 mg PO QPM albuterol sulfate 90 mcg/actuation HFA aerosol inhaler 2 inh INHALATION Q4H PRN (Reason: Shortness Of Breath Or Wheezing) polyethylene glycol 3350 [Miralax] 17 gram Powder In Packet 17 g PO DAILY PRN (Reason: constipation) Qty: 30 0RF magnesium oxide 400 mg (241.3 mg magnesium) Tablet 400 mg PO DAILY@1200 Qty: 30 0RF phenazopyridine [Pyridium] 100 mg Tablet 100 mg PO TID PRN (Reason: dysuria) Qty: 30 0RF docusate sodium [Colace] 100 mg capsule 100 mg PO BID PRN (Reason: constipation) Qty: 60 0RF multivitamin Tablet 1 tab PO QAM cholecalciferol (vitamin D3) [Vitamin D3] 125 mcg (5,000 unit) Tablet 125 mcg PO QAM omega-3 fatty acids Capsule 1,000 mg PO QAM Trelegy Ellipta 100-62.5-25 mcg blister with device 1 inh INHALATION DAILY metoprolol succinate 100 mg tablet extended release 24 hr 100 mg PO BID Qty: 60 0RF digoxin 250 mcg (0.25 mg) tablet 0.25 mg PO QAM Qty: 30 0RF benzonatate 100 mg Capsule 100 mg PO TID PRN (Reason: cough) Qty: 20 0RF Changed insulin aspart U-100 [Novolog FlexPen U-100 Insulin] 100 unit/mL (3 mL) insulin pen 30 unit SUBCUT BIDM Qty: 15 0RF Rx Instructions: has been needing to cover with more than 25 units to achieve a 200 blood sugar Discontinued ampicillin 500 mg capsule 500 mg PO TID Qty: 21 0RF torsemide 10 mg Tablet 20 mg PO QAM Qty: 30 0RF Discharge Orders: Discharge Order (Routine); Ordered 04/13/23 Ordered By: Deuce Harvey Admission Data Admit Date/Time: 04/08/23 22:30 Attending Provider: Deuce Harvey Admit Provider: Rakesh Palmer Primary Care Provider: Sabine Mosley Other Providers: Rakesh Palmer; Jose Villanueva; [facility]
[2023-04-13] MEDS: cefTRIAXone SODIUM 2,000 MG in DEXTROSE 5 % MINI-B 50 ML IV SCH (13:55)
[2023-04-13] MEDS ORDERED: POTASSIUM CHLORIDE CRTAB 20 MEQ TABCR PO ONE (14:25)
--- NOTE | 2023-04-13 14:34 | Cardiology Progress Note ---
Date of Service April 13, 2023 Assessment & Plan (1) Acute heart failure with preserved ejection fraction (HFpEF): (2) Persistent atrial fibrillation: (3) Chest pain: (4) Hypertension: Plan -edema improved. SOB improved -Volume status at baseline. -Miller removed and urinating without issue -Continue torsemide 40 mg PO (increase from 20 mg [employer]) -Potassium 3.5 this morning. Give one dose of potassium 20 meq now prior to discharge. -Historically she has had borderline high potassium and was not prescribed spironactone or potassium supplement. Monitor on discharge. Will need labs in 1- 2 weeks -Continue digoxin and metoprolol. -Continue Eliquis. -Compliance with CPAP recommended. -Treatment for Hyperglycemia per hospitalist/PCP -Will arrange about 2 week hospital f/u with [facility]. Stable for discharge from cardiac standpoint with above recommendations. Case discussed with Dr. Wells I spent a total of 25 minutes on the date of service in preparation, delivery, and documentation of the care provided to this patient, excluding any time spent in the performance of separately billed services. Shahrzad Eric PA-C Department of Cardiology, [facility] This chart was completed in part utilizing Speech Voice Recognition Software. Grammatical errors, random word insertions, pronoun errors, and incomplete sentences are an occasional consequence of this system due to software limitations, ambient noise, and hardware issues. Any formal questions or concerns about the content, text, or information contained within the body of this dictation should be directly addressed to the provider for clarification. Admission and Anticipated Discharge Date Admission Date: April 08, 2023 Supervising Physician Co-Signing Physician Notes Supervising Physician Attestation: I have personally performed a history and physical examination on the patient. I agree with the physician workers compensation claims assistant's findings and plan as documented with the following additions. Subjective: Patient feeling well, lying supine without difficulty. Exam: Cardiovascular: Irregular rhythm, trace bilateral lower extreme edema (edema better than previous baseline). Assessment and Plan: -Acute decompensation of chronic heart failure with preserved ejection fraction * Patient stable for discharge. She has been transitioned to oral diuretics, with dose as noted above. I spent a total of 20 minutes on the date of service in preparation, delivery, and documentation of the care provided to this patient, excluding any time spent in the performance of separately billed services. Dimitris Wells, DO Subjective Patient resting in bed. Feeling well. SOB greatly improved. Denies chest pain. Tolerating medications. feels back to her baseline. Slept well last night. Discharge is for later today. Review of Systems Review of Systems: All systems reviewed & are unremarkable except as noted in HPI & below Physical Exam Constitutional: well developed and + obese; no acute distress Neck: normal visual inspection and trachea midline Respiratory: normal respiratory effort; no respiratory distress Auscultation: + diminished lung sounds (mildly diminished in bilateral bases. ) Cardiovascular: Rate/Rhythm: + irregularly irregular Heart Sounds: normal S1 and normal S2 Vessels: dorsalis pedis pulses present; no JVD Extremities: + edema (trace b/l ) Skin: no rashes, warm and dry Psychiatric: A+Ox3, euthymic affect Results & Data Vital Signs (Past 12 Hours) Vital Signs Temp Pulse Resp BP Pulse Ox O2 Del Method 04/13/23 12:00 36.7 C 82 20 124/69 97 Room Air 04/13/23 07:30 37.0 C 74 18 115/69 98 Room Air 04/13/23 05:26 Room Air 04/13/23 02:30 36.8 C 81 20 120/63 98 CPAP Laboratory Results CBC 04/13/23 Range/Units 07:23 WBC 9.91 (4.8-10.8) K/ul RBC 3.86 L (4.20-5.40) M/uL Hgb 9.7 L (12.0-16.0) g/dl Hct 31.5 L (37.0-47.0) % Plt Count 242 (130-400) K/uL Neut # (Auto) 5.38 (1.40-6.50) K/uL Lymph # (Auto) 2.82 (1.20-3.40) K/uL [place] # (Auto) 1.13 H (0.11-0.59) K/uL Eos # (Auto) 0.41 (0.00-0.50) K/uL Baso # (Auto) 0.08 (0.00-0.20) K/uL Comprehensive Metabolic Panel 04/13/23 Range/Units 07:23 Sodium 136 (136-145) mmol/L Potassium 3.5 (3.5-5.1) mmol/L Chloride 97 L (98-107) mmol/L Carbon Dioxide 28 (21-32) mmol/L BUN 24 H (6-23) mg/dl Creatinine 0.98 (0.6-1.2) mg/dl Glucose 190 H (70-99(Fasting)) mg/dl Calcium 8.8 (8.6-10.3) mg/dl Intake and Output 04/12/23 04/13/23 04/13/23 22:59 06:59 14:59 Intake Total 250 / 550 250 / 550 Output Total 650 / 2175 350 / 2175 Balance -400 / -1625 -100 / -1625 Intake: Oral 250 / 500 250 / 500 Output: Urine Amount (Catheter) 650 / 2175 350 / 2175 Miller/Indwelling 650 / 2175 350 / 2175 Other: Weight 145.5 kg Weight Measurement Method Built in [facility] Diagnostic Findings Telemetry reviewed: Atrial fibrillation, controlled rates. Echo earlier this admission: Mild LVH Normal LVEF at 60-65% No significant valvular disease No pulm hypertension Medications Administered Current Inpatient Medications Acetaminophen (Acetaminophen 325 Mg Tab) 650 mg PO Q4H PRN PRN Reason: Pain or Fever Stop: 05/09/23 00:49 Last Admin: 04/12/23 17:31 Dose: 650 mg Hydrocodone Bitart/Acetaminophen (Hydrocodone/Acetamophen 5/325mg Tab) 1 tab PO Q6 PRN PRN Reason: Pain Stop: 04/23/23 00:49 Last Admin: 04/13/23 12:57 Dose: 1 tab Albuterol (Albuterol Hfa 8 Gm Inhaler) 2 puffs INH Q4H PRN PRN Reason: Shortness Of Breath Or Wheezin Stop: 05/09/23 00:49 Apixaban (Apixaban 5 Mg Tablet) 5 mg PO BID [facility] Stop: 05/09/23 08:59 Last Admin: 04/13/23 08:23 Dose: 5 mg Atorvastatin Calcium (Atorvastatin 40 Mg Tab) 40 mg PO QPM [facility] Stop: 05/09/23 20:59 Last Admin: 04/12/23 20:56 Dose: 40 mg Baclofen (Baclofen 10 Mg Tab) 10 mg PO BID PRN PRN Reason: Muscle Pain Stop: 05/09/23 00:49 Last Admin: 04/13/23 03:00 Dose: 10 mg Benzonatate (Benzonatate 100 Mg Capsule) 100 mg PO TID PRN PRN Reason: cough Stop: 05/09/23 00:49 Dextrose (Dextrose 50% 50 Ml Syringe) 25 - 50 ml IV UD PRN; Protocol PRN Reason: Hypoglycemia Protocol Stop: 05/09/23 00:49 Digoxin (Digoxin 0.25 Mg Tab) 0.25 mg PO DAILY@1600 [facility] Stop: 05/09/23 15:59 Last Admin: 04/12/23 16:46 Dose: 0.25 mg Docusate Sodium (Docusate Sodium 100 Mg Cap) 100 mg PO BID PRN PRN Reason: constipation Stop: 05/09/23 00:49 Famotidine (Famotidine 20 Mg Tab) 20 mg PO QPM [facility] Stop: 05/09/23 20:59 Last Admin: 04/12/23 20:56 Dose: 20 mg Fluticasone Furoate (Fluticasone Furoate 100mcg 14 Puffs/Inhaler) 1 puffs INH DAILY [facility] Stop: 05/09/23 08:59 Last Admin: 04/13/23 08:21 Dose: 1 puffs Glucagon (Glucagon For Inj 1 Mg Vial) 1 mg SQ UD PRN; Protocol PRN Reason: Hypoglycemia Protocol Stop: 05/09/23 00:49 Glucose (Glucose 10 Tab/Tube) 4 - 8 tab PO UD PRN; Protocol PRN Reason: Hypoglycemia Treatment Stop: 05/09/23 00:49 Glucose (Glucose 40% Gel 15 Gm Tube) 15 - 30 gm PO UD PRN; Protocol PRN Reason: Hypoglycemia Protocol Stop: 05/09/23 00:49 Hydrocortisone (Hydrocortisone Acetate 25 Mg Supp) 25 mg AR BID PRN PRN Reason: Hemorrhoids Stop: 05/09/23 00:49 Ceftriaxone Sodium 2,000 mg/ (Dextrose) 50 mls @ 100 mls/hr IV Q24H [facility] Stop: 04/14/23 11:59 Last Admin: 04/13/23 13:55 Dose: 100 mls/hr Insulin Aspart (Insulin Aspart Per Unit Charge) 0 units SC ACHS [facility] Stop: 05/09/23 11:29 Last Admin: 04/13/23 12:58 Dose: 72 units Insulin Glargine (Lantus Per Unit Charge) 125 units SC QAM [facility] Stop: 05/12/23 08:59 Last Admin: 04/13/23 08:24 Dose: 125 units Insulin Glargine (Lantus Per Unit Charge) 125 units SC HS [facility] Stop: 05/12/23 20:59 Last Admin: 04/12/23 20:54 Dose: 125 units Ipratropium [place] (Ipratropium [place] Nasal [place] 0.06% 15ml) 1 sprays ANIBAL [facility] Stop: 05/09/23 08:59 Last Admin: 04/13/23 08:21 Dose: 1 sprays Levalbuterol HCl (Levalbuterol Hcl 0.63 Mg/3 Ml Neb) 0.63 mg INH Q4H PRN; Protocol PRN Reason: Wheezing Stop: 05/09/23 00:49 Magnesium Oxide (Magnesium Oxide 400 Mg Tab) 400 mg PO BID [facility] Stop: 05/11/23 09:59 Last Admin: 04/13/23 08:22 Dose: 400 mg Metoprolol Succinate (Metoprolol Succ 50mg Ext Rel Tab) 100 mg PO BID [facility] Stop: 05/09/23 08:59 Last Admin: 04/13/23 08:23 Dose: 100 mg Miscellaneous (Carbohydrates For Hypoglycemia ) 15 - 30 gm PO UD PRN PRN Reason: Hypoglycemia Protocol Stop: 05/09/23 00:49 Miscellaneous Information (Pharmacy Glycemic Mgmt Consult) 1 each N/A UD PRN PRN Reason: Consult Stop: 05/09/23 00:49 Montelukast Sodium (Montelukast Sodium 10 Mg Tablet) 10 mg PO QPM [facility] Stop: 05/09/23 20:59 Last Admin: 04/12/23 20:57 Dose: 10 mg Multivitamins (Multivitamin Tab) 1 tab PO QAM [facility] Stop: 05/09/23 08:59 Last Admin: 04/13/23 08:22 Dose: 1 tab Nitroglycerin (Nitroglycerin Sl 0.4 Mg/Tab Tab) 0.4 mg SL Q5M PRN PRN Reason: Chest Pain Stop: 05/09/23 00:49 Pantoprazole Sodium (Pantoprazole 40 Mg Tab) 40 mg PO QAM [facility] Stop: 05/09/23 08:59 Last Admin: 04/13/23 08:22 Dose: 40 mg Polyethylene Glycol (Polyethylene (Miralax) 17 Gm Pack) 17 gm PO DAILY PRN PRN Reason: Constipation Stop: 05/09/23 00:49 Polyethylene Glycol (Polyethylene (Miralax) 17 Gm Pack) 17 gm PO DAILY [facility] Stop: 05/12/23 09:59 Last Admin: 04/13/23 08:21 Dose: 17 gm Potassium Chloride (Potassium Chloride Crtab 20 Meq Tabcr) 20 meq PO NOW ONE Stop: 04/13/23 14:26 Tamsulosin HCl (Tamsulosin Hcl 0.4 Mg Cap) 0.4 mg PO HS [facility] Stop: 05/09/23 20:59 Last Admin: 04/12/23 20:57 Dose: 0.4 mg Torsemide (Torsemide 10 Mg Tab) 40 mg PO QAM [facility] Stop: 05/13/23 08:59 Last Admin: 04/13/23 08:22 Dose: 40 mg Triamcinolone Acetonide (Triamcinolone Acet 0.1% Oint 15 Gm Tube) 1 appln TOP BID PRN PRN Reason: .flare ups Stop: 05/09/23 00:49 Umeclidinium/Vilanterol (Umeclidinium/Vilanterol 62.5/25mcg 7 Puffs/Inhaler) [facility] Stop: 05/09/23 08:59 Last Admin: 04/13/23 08:21 Dose: 1 puffs Vitamin D (Cholecalciferol 5,000 Units 125 Mcg Tab) 5,000 units PO QAM [facility] Stop: 05/09/23 08:59 Last Admin: 04/13/23 08:23 Dose: 5,000 units (3) Chest pain Chest pain type: other chest pain Qualified Code(s): R07.89 - Other chest pain (4) Hypertension Hypertension type: primary hypertension Qualified Code(s): I10 - Essential (primary) hypertension
[2023-04-13] MEDS: DIGOXIN 0.25 MG TAB PO SCH (17:24)
== END 2023-04-13 18:50 | disposition home or self-care (01) | DRG 291 ==
LOC: ED 13:52 → EDINP 22:30 → 2S 04-09 00:50

== ENCOUNTER 2023-07-16 16:40 | Observation (INO) ==
--- NOTE | 2023-07-16 16:55 | ED Triage Note ---
Date of Service July 16, 2023 Provider in Triage Author: Gabriela King History of Present Illness This patient was briefly evaluated while in triage. An abbreviated physical exam was performed. This patient is a 73-year-old Female who presents to the ED for evaluation of right groin pain. Pt. had stent placed on right side for kidney stone June 09. States since then, she's been having pain. Had outpatient US completed Thursday. States she called urology and nurse referred her here. Pt. believes stent was removed. Does believe she has UTI at this time. Physical Exam VITALS: Vitals are noted on the nurse's note and reviewed by myself. GENERAL: This is a 73 year old female, in no acute distress, nondiaphoretic, well-developed well-nourished. SKIN: No obvious rashes, edema, erythema HEAD: Normocephalic atraumatic. EYES: Conjunctivae without injection, sclerae without icterus. NECK: No JVD. LUNGS: No retractions or accessory muscle use. MUSCULOSKELETAL: Presents in wheelchair NEURO: Patient was alert and oriented to person place and time. No focal neurological deficits. Initial orders for labs and / or imaging were placed and patient was placed in the waiting area until a bed is available. Please see further documentation for the full ED course.
[2023-07-16] MEDS: SODIUM CHLORIDE 0.9% 500 ML IV STA (17:06)
[2023-07-16] MEDS: ACETAMINOPHEN 1,000 MG/100 ML VIAL IV STA (17:08)
[2023-07-16 17:30] LABS: Basophils # (auto) 0.08 K/uL (0.00-0.20); Basophils % (auto) 0.7 %; Eosinophils # (auto) 0.71 K/uL (0.00-0.50); Eosinophils % (auto) 6.4 %; Hemoglobin 9.3 g/dl (12.0-16.0); Immature Granulocytes # (auto) 0.09 K/uL (0.01-0.20); Immature Granulocytes % (auto) 0.8 %; Lymphocytes % (auto) 30.6 %; Mean Corpuscular Hemoglobin 22.5 pg (25.0-34.0); Mean Corpuscular Hgb Conc 29.1 g/dL (32.0-36.0); Mean Corpuscular Volume 77.5 fL (80.0-100.0); Monocytes # (auto) 0.93 K/uL (0.11-0.59); Monocytes % (auto) 8.4 %; Neutrophils % (auto) 53.1 %; Nucleated RBC # (auto) 0.02 K/uL (0.00-0.12); Nucleated RBC % (auto) 0.2 %; Platelet Count 172 K/uL (130-400); RDW Coefficient of Variation 20.3 % (11.5-14.5); RDW Standard Deviation 56.1 fL (36.4-46.3); Red Blood Count 4.13 M/uL (4.20-5.40); White Blood Count 11.11 K/ul (4.8-10.8)
[2023-07-16 17:48] LABS: Alanine Aminotransferase 22 U/L (7-52); Albumin Globulin Ratio 1.2 (0.9-2); Alkaline Phosphatase 89 U/L (34-104); Anion Gap 11 (3-11); Aspartate Aminotransferase 29 U/L (13-39); BUN Creatinine Ratio 18.9 (10-20); Bilirubin,Total 0.6 mg/dl (0.2-1.0); Blood Urea Nitrogen 21 mg/dl (6-23); Calcium 9.3 mg/dl (8.6-10.3); Carbon Dioxide 22 mmol/L (21-32); Chloride 102 mmol/L (98-107); Est GFR (African American) 57.9 ml/min; Est GFR (Non-African American) 49.9 ml/min; Globulin 3.4 gm/dl (2.5-4.0); Glucose 296 mg/dl (70-99(Fasting)); Lipase 9 U/L (11-82); Potassium 4.5 mmol/L (3.5-5.1); Sodium 135 mmol/L (136-145); Total Protein 7.4 gm/dl (6.0-8.3)
[2023-07-16 17:49] LABS: Anisocytosis Present; Polychromasia 1+
--- NOTE | 2023-07-16 18:24 | CT Scan Report ---
ABDOMEN AND PELVIS CT WITHOUT CONTRAST CT DOSE: 1591.82 mGy.cm HISTORY: Acute right-sided flank pain right flank pain, history kidney stone TECHNIQUE: Multiaxial CT images of the abdomen and pelvis were performed without contrast. A dose lo wering technique was utilized adhering to the principles of ALARA. COMPARISON STUDY: CT 01/23/2023 FINDINGS: Cardiomegaly with coronary artery calcifications. Moderate bibasilar atelectasis/scarring. No free air. Unenhanced spleen, mildly atrophic pancreas, contracted gallbladder and adrenal glands a re unremarkable. Hepatomegaly with suggestion of geographic hepatic steatosis. There are a few nonobstructing calculi left kidney measuring up to 4 mm. Punctate right renal calculi . There is mild right-sided hydroureteronephrosis. No obstructing ureteral calculi identified. Venous calcifications within the right abdomen redemonstrated. Decompressed urinary bladder with mild wall thickening. Hysterectomy. Atherosclerosis of the aorta. Mildly enlarged likely benign iliac and ingui nal chain lymph nodes. No bowel obstruction. Colonic diverticulosis without definite evidence of acute diverticulitis. Hyper dense material noted within a noninflamed appendix. Small fat filled umbilical hernia. No acute fract ure. Degenerative changes of the spine, pelvis and hips. IMPRESSION: 1. Mild right-sided hydroureteronephrosis without obstructing ureteral calculus or lesion identified. Findings may be secondary to a radiolucent stone, recently passed calculus or ascending infection. C orrelate with urinalysis. 2. Nonobstructing bilateral nephrolithiasis. 3. Hepatomegaly with hepatic steatosis. 4. Colonic diverticulosis. 5. Additional findings as above. ACT 112: Negative or not required by law. The above report was generated using voice recognition software. It may contain grammatical, syntax o r spelling errors. Electronically signed by: Gilbert Foster M.D. 07/16/2023 6:22 PM
[2023-07-16] MEDS: SODIUM CHLORIDE 0.9% 250 ML IV ONE (18:53)
[2023-07-16] MEDS: SODIUM CHLORIDE 0.9% 1,000 ML IV ONE (18:53)
[2023-07-16 19:25] LABS: Appearance Urine Clear (Clear); Bilirubin Urine Negative (Negative); Blood Urine Negative (Negative); Color Urine Dark Yellow; Glucose Urine UA 3+ (Negative); Ketones Urine Negative (Negative); Leukocyte Esterase Urine Negative (Negative); Nitrite Urine Negative (Negative); Protein Urine Negative (Negative); Specific Gravity Urine 1.027 (1.000-1.030); Urobilinogen Urine Negative (Negative); pH Urine 5.5 (4.5-7.5)
[2023-07-16] MEDS: PIPERACILLIN/TAZOBACTAM 4.5 GM/120 ML BAG IV ONE (19:57)
--- NOTE | 2023-07-16 20:34 | Emergency Department Note ---
History of Present Illness General Chief Complaint: Groin Pain Stated Complaint: STINT IN GROIN/TAKEN OUT, GROIN/BACK PAIN Time Seen by Provider: 07/16/23 18:50 History of Present Illness Provider Complaint: flank pain Onset (ago): 1 week(s) Pain Consistency: intermittent Location: R flank Radiation: RLQ Severity: severe Maximum Pain Intensity: 10 Current Pain Intensity: 8 Quality: + stabbing and + sharp Relieved By: + nothing Exacerbated By: + other (urinating) Context: + recent antibiotic use (Recently on Macrobid for UTI) and + history of similar episodes (History of kidney stones and pyelonephritis. Recently had a ureteral stent removed in June 2023) Associated Symptoms: + dysuria; no nausea, no vomiting, no diarrhea, no fever, no chills, no constipation, no hematemesis, no melena, no hematuria, no syncope, no headache, no chest pain and no breathing difficulty Home Medications Medication Instructions Recorded Confirmed Type apixaban 5 mg tablet (Eliquis) 5 mg PO BID 01/23/23 07/16/23 History atorvastatin 40 mg tablet 40 mg PO QPM 01/23/23 07/16/23 History baclofen 10 mg tablet 10 mg PO BID PRN Muscle Pain 01/23/23 07/16/23 History famotidine 20 mg tablet 20 mg PO QPM 01/23/23 07/16/23 History hydrocodone 5 mg-acetaminophen 325 1 tab PO Q6 PRN Pain 01/23/23 07/16/23 History mg tablet hydrocortisone acetate 25 mg 25 mg OK BID PRN Hemorrhoids 01/23/23 07/16/23 History rectal suppository ipratropium bromide 21 mcg (0.03 2 spray intranasal AMHS 01/23/23 07/16/23 History %) nasal spray metformin 1,000 mg tablet 1,000 mg PO BID 01/23/23 07/16/23 History montelukast 10 mg tablet 10 mg PO QPM 01/23/23 07/16/23 History nystatin 100,000 unit/gram topical 1 applic topical BID 01/23/23 07/16/23 History powder nystatin-triamcinolone 100,000 1 applic topical BID PRN .flare ups 01/23/23 07/16/23 History unit/g-0.1 % topical cream pantoprazole 40 mg tablet,delayed 40 mg PO QAM 01/23/23 07/16/23 History release triamcinolone acetonide 0.1 % 1 applic topical BID PRN .flare ups 01/23/23 07/16/23 History topical ointment docusate sodium 100 mg capsule 100 mg PO BID PRN constipation #60 02/05/23 07/16/23 Rx (Colace) caps magnesium oxide 400 mg (241.3 mg 400 mg PO DAILY@1200 #30 tabs 02/05/23 07/16/23 Rx magnesium) tablet phenazopyridine 100 mg tablet 100 mg PO TID PRN dysuria #30 tabs 02/05/23 07/16/23 Rx (Pyridium) polyethylene glycol 3350 17 gram 17 g PO DAILY PRN constipation #30 02/05/23 07/16/23 Rx oral powder packet (Miralax) ea multivitamin 1 tab PO QAM 03/05/23 07/16/23 History benzonatate 100 mg capsule 100 mg PO TID PRN cough #20 caps 03/12/23 07/16/23 Rx digoxin 250 mcg (0.25 mg) tablet 0.25 mg PO QAM #30 tabs 04/13/23 07/16/23 Rx metoprolol succinate 100 mg 100 mg PO BID #60 tabs 04/13/23 07/16/23 Rx tablet,extended release 24 hr torsemide 40 mg tablet 40 mg PO DAILY #30 tabs 04/13/23 07/16/23 Rx tamsulosin 0.4 mg capsule 0.4 mg PO HS #30 caps 05/21/23 07/16/23 Rx fluticasone fur. 100 mcg-umeclid 1 inh inhalation DAILY #60 ea 05/29/23 07/16/23 Rx 62.5 mcg-vilant 25 mcg inhalat.powder (Trelegy Ellipta) levalbuterol HCl 0.63 mg/3 mL 0.63 mg (3 mL) inhalation Q4 PRN 05/29/23 07/16/23 Rx solution for nebulization Wheezing #90 mL levalbuterol tartrate 45 2 inh inhalation Q6H PRN wheezing 06/03/23 07/16/23 Rx mcg/actuation aerosol inhaler #15 grams (Xopenex HFA) insulin regular hum U-500 conc 500 90 unit subcut ACHS 06/04/23 07/16/23 History unit/mL(3 mL) subcut pen (Humulin R U-500 (Conc) Insulin Kwikpen) omega-3 fatty acids 1,000 mg 1,000 mg PO QAM 07/16/23 07/16/23 History capsule Allergies Allergy/AdvReac Type Severity Reaction Status Date / Time Cephalosporins Allergy Intermediate RASH Verified 07/16/23 19:36 Sulfa (Sulfonamide Allergy Intermediate "Sulfa Verified 07/16/23 19:36 Antibiotics) Drugs = rash" terconazole Allergy Intermediate ITCHING, Verified 07/16/23 19:36 BURNING clarithromycin Allergy Unknown UNKNOWN Verified 07/16/23 19:36 clavulanic acid Allergy Unknown UNKNOWN Verified 07/16/23 19:36 clobetasol Allergy Unknown Unknown Verified 07/16/23 19:36 adhesive AdvReac Mild BAND-AIDS Verified 07/16/23 19:36 = SKIN IRRITATION Past Med/Surg History Medical History UTI (urinary tract infection) being treated w/ macrobid REID (dyspnea on exertion) History of COVID-19 03/07/23- hospitalized at [facility], "breathing issues" 02/14/2023, continues with cough and runny nose currently Chronic heart failure with preserved ejection fraction Morbid obesity Chronic sinusitis Wound dehiscence 2015 s/p hysterectomy Kidney stones passed on own previously and also stent placed 01/[address] [facility] [address] [place]ura History of bleeding ulcers GERD (gastroesophageal reflux disease) Hypertension Post traumatic stress disorder Bipolar disorder Depression Anxiety Peripheral neuropathy bilateral 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 no problems since then. History of pneumococcal septicemia treated at [facility] 2012. History of cardioversion RBBB Diabetes mellitus, type II IDDM Paroxysmal atrial fibrillation follows with Dr. Jason Mosley HLD (hyperlipidemia) REENA (obstructive sleep apnea) cpap at night H/O: CVA (cerebrovascular accident) 2004 -- no deficits. Arthritis COPD (chronic obstructive pulmonary disease) follows with [facility] Pulmonary (Dr Kat) Surgical History S/P laparotomy to repair hysterectomy wound dehiscence. History of cataract surgery bilateral History of tonsillectomy History of colonoscopy History of esophagogastroduodenoscopy (EGD) History of bronchoscopy S/P tendon repair bicep tendon repair (left) History of open reduction and internal fixation (ORIF) procedure Left elbow with hardware Hx of nasal septoplasty H/O: hysterectomy LUCERO with BSO Family History Other Diabetes No family history of adverse response to anesthesia Social History Smoking Status: Never smoker Tobacco Type: Cigarettes Cigarettes Per Day: 40; Second Hand Exposure: No; Do You Dip or Chew Tobacco: No; Hx Alcohol Use: No Hx Substance Use: No Preferred Language: Egyptian Communication Ability: Effective Materials Planning Analyst Required: No Beliefs That Will Affect Care: None marital status: Current Living Situation: Spouse Feels Safe at Home: Yes Assistive Devices: Cane, CPAP, Nebulizer and Walker Physical Exam 2 Vital Signs: Vital Signs - 24 hr 07/16/23 16:52 07/16/23 18:26 07/16/23 18:26 Temperature 36.7 C Temperature Source Temporal Artery Sc an Pulse Rate 101 H Pulse Rate [Apical ] 87 Pulse Rate from Sp O2 Sensor Respiratory Rate 20 24 Respiratory Effort / Characteristics Non-Labored Sponta neous Non-Labored Sponta neous Respiratory Depth Normal Normal Respiratory Patter n Regular Blood Pressure 141/77 H Blood Pressure [Ri ght Arm] 128/71 Blood Pressure Lilia n 98 Blood Pressure Lilia n [Right Arm] 90 Pulse Oximetry 94 93 94 Oxygen Delivery Me thod Room Air Room Air Room Air Sepsis Recent Feve r Within 48 Hours No Sepsis New/Unexpla ined Change in Men keshav Status No Sepsis Action Take n by Nursing No Action Required 07/16/23 18:32 07/16/23 18:39 07/16/23 19:17 Temperature Temperature Source Pulse Rate 75 90 87 Pulse Rate [Apical ] Pulse Rate from Sp O2 Sensor 88 Respiratory Rate 16 17 Respiratory Effort / Characteristics Respiratory Depth Respiratory Patter n Blood Pressure Blood Pressure [Ri ght Arm] Blood Pressure Lilia n Blood Pressure Lilia n [Right Arm] Pulse Oximetry 93 Oxygen Delivery Me thod Sepsis Recent Feve r Within 48 Hours Sepsis New/Unexpla ined Change in Men keshav Status Sepsis Action Take n by Nursing 07/16/23 20:00 07/16/23 20:01 07/16/23 20:01 Temperature Temperature Source Pulse Rate 74 82 Pulse Rate [Apical ] Pulse Rate from Sp O2 Sensor 78 87 Respiratory Rate 25 H 25 H Respiratory Effort / Characteristics Respiratory Depth Respiratory Patter n Blood Pressure 112/72 Blood Pressure [Ri ght Arm] Blood Pressure Lilia n 75 Blood Pressure Lilia n [Right Arm] Pulse Oximetry 93 94 Oxygen Delivery Me thod Room Air Sepsis Recent Feve r Within 48 Hours Sepsis New/Unexpla ined Change in Men keshav Status Sepsis Action Take n by Nursing Physical Exam: Physical Exam GENERAL: She is oriented to person, place, and time. She appears well-developed and well-nourished. She does not appear distressed. HENT: Exam performed. -Head: Normocephalic and atraumatic. -Right Ear: External ear normal. No mastoid erythema -Left Ear: External ear normal. No mastoid erythema -Mouth/Throat: The oropharynx is clear and moist. No trismus in the jaw. No dental abscesses or uvula swelling. No oropharyngeal exudate or tonsillar abscesses. EYES: Conjunctivae and EOM are normal.Right eye exhibits no discharge. Left eye exhibits no discharge. No scleral icterus. NECK: Normal range of motion. Neck supple. No JVD present. No tracheal deviation and normal range of motion present. CV: Normal rate, regular rhythm, normal heart sounds and intact distal pulses. There is no peripheral edema. Palpable radial pulses bue. PULM/CHEST: Effort normal and breath sounds normal. No respiratory distress. No stridor. She has no wheezes. She has no rales. -Chest Wall: She exhibits no tenderness. ABD: The abdomen is soft. Bowel sounds are normal. She has no distension. No mass is present. There is no tenderness. There is no rebound, no guarding, no Pitts's sign and no tenderness at McBurney's point. Rovsig negative. Right- sided CVA tenderness. MUSC/SKEL: Normal range of motion. There is no peripheral edema, tenderness or deformity. NEURO: Motor and sensation grossly intact. SKIN: Skin is warm and dry. She is not diaphoretic. PSYCH: She has a normal mood and affect. Behavior is normal. Judgment and thought content normal. Course Course 1849: The patient was evaluated in room A4. A complete history and physical exam was performed Administered Medications Discontinued Medications Sodium Chloride (Nss) 500 mls @ 999 mls/hr IV .Q31M STA Stop: 07/16/23 17:26 Last Infusion: 07/16/23 19:02 Dose: Infused Documented By: Admin: 07/16/23 17:06 Dose: 999 mls/hr Documented By: EMILY Acetaminophen (Ofirmev) 1,000 mg in 100 mls @ 400 mls/hr IV NOW STA Stop: 07/16/23 17:10 Last Infusion: 07/16/23 19:02 Dose: Infused Documented By: Admin: 07/16/23 17:08 Dose: 400 mls/hr Documented By: EMILY Sodium Chloride (Nss) 1,000 mls @ 999 mls/hr IV .Q1H1M ONE Stop: 07/16/23 19:50 Last Admin: 07/16/23 18:53 Dose: 999 mls/hr Documented By: ARVIN Sodium Chloride (Nss) 250 mls @ 999 mls/hr IV .Q16M ONE Stop: 07/16/23 19:05 Last Infusion: 07/16/23 19:58 Dose: Infused Documented By: Admin: 07/16/23 18:53 Dose: 999 mls/hr Documented By: ARVIN Piperacillin Sod/Tazobactam Sod (Zosyn) 4.5 gm in 120 mls @ 240 mls/hr IV NOW ONE Stop: 07/16/23 19:23 Last Admin: 07/16/23 19:57 Dose: 240 mls/hr Documented By: ARVIN Medical Decision Making Medical Records Attestation: I reviewed the patient's medical records. External medical records reviewed. Patient had a 6 mm right ureteral stone in January 2023 and she underwent a cystoscopy and right retrograde pyelogram and right ureteral stent insertion with Dr. Ventura on January 24, 2023. Laboratory Data Attestation: I reviewed the patient's lab results. 07/16/23 17:06 07/16/23 17:06 Lab Results 07/16/23 07/16/23 Range/Units 17:06 19:07 WBC 11.11 H (4.8-10.8) K/ul RBC 4.13 L (4.20-5.40) M/uL Hgb 9.3 L (12.0-16.0) g/dl Hct 32.0 L (37.0-47.0) % MCV 77.5 L (80.0-100.0) fL MCH 22.5 L (25.0-34.0) pg MCHC 29.1 L (32.0-36.0) g/dL RDW Std Deviation 56.1 H (36.4-46.3) fL RDW Coeff of [place] 20.3 H (11.5-14.5) % Plt Count 172 (130-400) K/uL MPV 11.0 (9.4-12.4) fL Immature Gran % (Auto) 0.8 % Neut % (Auto) 53.1 % Lymph % (Auto) 30.6 % [place] % (Auto) 8.4 % Eos % (Auto) 6.4 % Baso % (Auto) 0.7 % Neut # (Auto) 5.90 (1.40-6.50) K/uL Lymph # (Auto) 3.40 (1.20-3.40) K/uL [place] # (Auto) 0.93 H (0.11-0.59) K/uL Eos # (Auto) 0.71 H (0.00-0.50) K/uL Baso # (Auto) 0.08 (0.00-0.20) K/uL Immature Gran # (Auto) 0.09 (0.01-0.20) K/uL Absolute Nucleated RBC 0.02 (0.00-0.12) K/uL Nucleated RBC % (auto) 0.2 % Polychromasia 1+ Anisocytosis Present Sodium 135 L (136-145) mmol/L Potassium 4.5 (3.5-5.1) mmol/L Chloride 102 (98-107) mmol/L Carbon Dioxide 22 (21-32) mmol/L Anion Gap 11 (3-11) BUN 21 (6-23) mg/dl Creatinine 1.11 (0.6-1.2) mg/dl Est Cr Clr Drug Dosing Not Reportable Est GFR ( Amer) 57.9 ml/min Est GFR (Non-Af Amer) 49.9 ml/min BUN/Creatinine Ratio 18.9 (10-20) Glucose 296 H (70-99(Fasting)) mg/dl Lactate 2.8 H* (0.4-2.0) mmol/L Calcium 9.3 (8.6-10.3) mg/dl Total Bilirubin 0.6 (0.2-1.0) mg/dl AST 29 (13-39) U/L ALT 22 (7-52) U/L Alkaline Phosphatase 89 (34-104) U/L Total Protein 7.4 (6.0-8.3) gm/dl Albumin 4.0 (3.4-5.0) gm/dl Globulin 3.4 (2.5-4.0) gm/dl Albumin/Globulin Ratio 1.2 (0.9-2) Lipase 9 L (11-82) U/L Urine Color Dark Yellow Urine Appearance Clear (Clear) Urine pH 5.5 (4.5-7.5) Ur Specific [place] 1.027 (1.000-1.030) Urine Protein Negative (Negative) Urine Glucose (UA) 3+ H (Negative) Urine Ketones Negative (Negative) Urine Blood Negative (Negative) Urine Nitrite Negative (Negative) Urine Bilirubin Negative (Negative) Urine Urobilinogen Negative (Negative) Ur Leukocyte Esterase Negative (Negative) Imaging Data Radiologist's Impression: Abdomen/Pelvis CT 07/16/23 16:[address] WITHOUT CONTRAST CT DOSE: 1591.82 mGy.cm HISTORY: Acute right-sided flank pain right flank pain, history kidney stone TECHNIQUE: Multiaxial CT images of the abdomen and pelvis were performed without contrast. A dose lowering technique was utilized adhering to the principles of ALARA. COMPARISON STUDY: CT 01/23/2023 FINDINGS: Cardiomegaly with coronary artery calcifications. Moderate bibasilar atelectasis/scarring. No free air. Unenhanced spleen, mildly atrophic pancreas, contracted gallbladder and adrenal glands are unremarkable. Hepatomegaly with suggestion of geographic hepatic steatosis. There are a few nonobstructing calculi left kidney measuring up to 4 mm. Punctate right renal calculi. There is mild right-sided hydroureteronephrosis. No obstructing ureteral calculi identified. Venous calcifications within the right abdomen redemonstrated. Decompressed urinary bladder with mild wall thickening. Hysterectomy. Atherosclerosis of the aorta. Mildly enlarged likely benign iliac and inguinal chain lymph nodes. No bowel obstruction. Colonic diverticulosis without definite evidence of acute diverticulitis. Hyperdense material noted within a noninflamed appendix. Small fat filled umbilical hernia. No acute fracture. Degenerative changes of the spine, pelvis and hips. IMPRESSION: 1. Mild right-sided hydroureteronephrosis without obstructing ureteral calculus or lesion identified. Findings may be secondary to a radiolucent stone, recently passed calculus or ascending infection. Correlate with urinalysis. 2. Nonobstructing bilateral nephrolithiasis. 3. Hepatomegaly with hepatic steatosis. 4. Colonic diverticulosis. 5. Additional findings as above. ACT 112: Negative or not required by law. The above report was generated using voice recognition software. It may contain grammatical, syntax or spelling errors. Electronically signed by: Gilbert Foster M.D. 07/16/2023 6:22 PM MDM Narrative Cardiac monitoring: An order was placed for continuous cardiac monitoring. The monitor shows a rate of 80 with sinus rhythm interpreted by me Patient was seen during a time of extreme volume and extreme acuity. Nursing triage protocols were initiated labs and imaging was conducted by protocol in the triage area. Labs show a lactic acid of 2.8. Patient be treated with 30 cc/kg bolus based off of her ideal body weight. White blood cell count within normal limits. Patient was given urine sample which looked infected. CT of the abdomen pelvis shows possible ascending infection versus recently passed stone versus a radiolucent stone. Given the patient's history of recurrent pyelonephritis, recurrent kidney stones, and sepsis from pyelonephritis patient will be admitted to the hospitalist team with urology on consult. Discussed case with on-call urology Dr. Ventura who knows patient and agrees with the plan. IV antibiotics Zosyn ordered for the patient. Did speak with pharmacy states patient has had this in the past without any complications. Impression & Plan Hydronephrosis, Pyelonephritis Discharge Plan Visit Data Chief Complaint: Groin Pain Stated Complaint: STINT IN GROIN/TAKEN OUT, GROIN/BACK PAIN ED Provider: Tima Da Silva Discharge Problem: Hydronephrosis, Pyelonephritis Patient Disposition: Admitted As Inpatient Forms Stand Alone Forms: [place] Prescriptions Prescriptions: No Action tamsulosin 0.4 mg capsule 0.4 mg PO HS Qty: 30 2RF levalbuterol tartrate [Xopenex HFA] 45 mcg/actuation HFA aerosol inhaler 2 inh inhalation Q6H PRN (Reason: wheezing) Qty: 15 3RF Trelegy Ellipta 100-62.5-25 mcg blister with device 1 inh INHALATION DAILY Qty: 60 3RF levalbuterol HCl 0.63 mg/3 mL solution for nebulization 0.63 mg INHALATION Q4 PRN (Reason: Wheezing) Qty: 90 3RF hydrocodone-acetaminophen 5-325 mg tablet 1 tab PO Q6 PRN (Reason: Pain) hydrocortisone acetate 25 mg suppository 25 mg OK BID PRN (Reason: Hemorrhoids) famotidine 20 mg tablet 20 mg PO QPM baclofen 10 mg Tablet 10 mg PO BID PRN (Reason: Muscle Pain) pantoprazole 40 mg tablet,delayed release (DR/EC) 40 mg PO QAM metformin 1,000 mg tablet 1,000 mg PO BID triamcinolone acetonide 0.1 % Ointment 1 applic TOPICAL BID PRN (Reason: .flare ups) nystatin-triamcinolone 100,000-0.1 unit/g-% cream 1 applic TOPICAL BID PRN (Reason: .flare ups) montelukast 10 mg Tablet 10 mg PO QPM nystatin 100,000 unit/gram powder 1 applic TOPICAL BID Rx Instructions: Apply 0.5 g to groin ipratropium bromide 21 mcg (0.03 %) spray,non-aerosol 2 spray INTRANASAL AMHS Eliquis 5 mg Tablet 5 mg PO BID atorvastatin 40 mg tablet 40 mg PO QPM polyethylene glycol 3350 [Miralax] 17 gram Powder In Packet 17 g PO DAILY PRN (Reason: constipation) Qty: 30 0RF magnesium oxide 400 mg (241.3 mg magnesium) Tablet 400 mg PO DAILY@1200 Qty: 30 0RF phenazopyridine [Pyridium] 100 mg Tablet 100 mg PO TID PRN (Reason: dysuria) Qty: 30 0RF docusate sodium [Colace] 100 mg capsule 100 mg PO BID PRN (Reason: constipation) Qty: 60 0RF multivitamin Tablet 1 tab PO QAM Humulin R U-500 (Conc) Kwikpen 500 unit/mL (3 mL) insulin pen 90 unit SUBCUT ACHS torsemide 40 mg tablet 40 mg PO DAILY Qty: 30 0RF metoprolol succinate 100 mg tablet extended release 24 hr 100 mg PO BID Qty: 60 0RF digoxin 250 mcg (0.25 mg) tablet 0.25 mg PO QAM Qty: 30 0RF benzonatate 100 mg Capsule 100 mg PO TID PRN (Reason: cough) Qty: 20 0RF omega-3 fatty acids 1,000 mg Capsule 1,000 mg PO QAM Referrals Referrals: Sabine Mosley DO [Primary Care Provider] - Discharge Problem: Hydronephrosis Qualifiers: Hydronephrosis type: unspecified Qualified Code(s): N13.30 - Unspecified hydronephrosis
--- NOTE | 2023-07-16 20:55 | History & Physical Report ---
Date of Service July 16, 2023 Assessment & Plan (1) Groin pain: Plan: 73-year-old female with past medical history significant for type 2 diabetes, dyslipidemia, gastroparesis due to diabetes, COPD, obstructive sleep apnea on CPAP, chronic diastolic CHF, history of CVA, history of persistent atrial fibrillation, hypertension, morbid obesity, GERD, bipolar 2 disorder, depression, former smoker who lives at home with her and ambulates with a walker because of back issues comes because of right groin pain. Patient states she had ureteral stent and was taken out. And since then she is having pain in the right groin but lately it got progressively very severe. Any movement is causing pain to shoot up. Denies any fevers. No burning micturition. No blood in the urine. Somewhat constipated. Denies any abdominal pain. No chest pain . Sometimes gets short of breath. Has runny nose from allergies. Occasional cough. No difficulty swallowing. Mild dizziness. Mild headache. No blurred visions. Currently resting comfortably and hemodynamically stable. Right groin pain CT scan showing mild right-sided hydroureteronephrosis without stone. Possible radiolucent stone, possible recently passed stone or ascending infection UA is unremarkable Received Zosyn in the ER empirically initially which will be continued for now Will follow the cultures Will consult urology in a.m.-as patient recently had a ureteral stent Elevated lactic acid Follow repeat levels Obstructive sleep apnea CPAP nightly Type 2 diabetes Hold home meds Lantus and sliding scale Currently n.p.o. Adjust insulin Glycemic pharmacy consult COPD Continue home inhalers Chronic diastolic CHF On torsemide Will monitor GERD On Protonix and famotidine A-fib On digoxin, metoprolol and Eliquis Hyperlipidemia On statin History of CVA On Eliquis and statin Hypertension Metoprolol DVT prophylaxis On Eliquis Disposition Medical floor Full code History of Present Illness Chief Complaint: Right groin pain Primary Care Provider: Sabine Mosley DO 73-year-old female with past medical history significant for type 2 diabetes, dyslipidemia, gastroparesis due to diabetes, COPD, obstructive sleep apnea on CPAP, chronic diastolic CHF, history of CVA, history of persistent atrial fibrillation, hypertension, morbid obesity, GERD, bipolar 2 disorder, depression, former smoker who lives at home with her and ambulates with a walker because of back issues comes because of right groin pain. Patient states she had ureteral stent and was taken out. And since then she is having pain in the right groin but lately it got progressively very severe. Any movement is causing pain to shoot up. Denies any fevers. No burning micturition. No blood in the urine. Somewhat constipated. Denies any abdominal pain. No chest pain . Sometimes gets short of breath. Has runny nose from allergies. Occasional cough. No difficulty swallowing. Mild dizziness. Mild headache. No blurred visions. Currently resting comfortably and hemodynamically stable. Past medical history. As mentioned above Past surgical history. Right breast biopsy. Colonoscopy. Cystoscopy. Tonsillectomy. Repair of nasal septum. Total abdominal hysterectomy with removal of tubes. Social history. . Quit smoking 2012. Smoked 2 packs a day for 30 years. No alcohol use. No drug use. Family history. Father had chronic rhinitis. COPD. Skin cancer. Diabetes. Mother had breast cancer. Maternal grandmother had diabetes. Paternal grandmother had diabetes. Allergies Allergy/AdvReac Type Severity Reaction Status Date / Time Cephalosporins Allergy Intermediate RASH Verified 07/16/23 19:36 Sulfa (Sulfonamide Allergy Intermediate "Sulfa Verified 07/16/23 19:36 Antibiotics) Drugs = rash" terconazole Allergy Intermediate ITCHING, Verified 07/16/23 19:36 BURNING clarithromycin Allergy Unknown UNKNOWN Verified 07/16/23 19:36 clavulanic acid Allergy Unknown UNKNOWN Verified 07/16/23 19:36 clobetasol Allergy Unknown Unknown Verified 07/16/23 19:36 adhesive AdvReac Mild BAND-AIDS Verified 07/16/23 19:36 = SKIN IRRITATION Home Medications Medication Instructions Recorded Confirmed Type apixaban 5 mg tablet (Eliquis) 5 mg PO BID 01/23/23 07/16/23 History atorvastatin 40 mg tablet 40 mg PO QPM 01/23/23 07/16/23 History baclofen 10 mg tablet 10 mg PO BID PRN Muscle Pain 01/23/23 07/16/23 History famotidine 20 mg tablet 20 mg PO QPM 01/23/23 07/16/23 History hydrocodone 5 mg-acetaminophen 325 1 tab PO Q6 PRN Pain 01/23/23 07/16/23 History mg tablet hydrocortisone acetate 25 mg 25 mg [place] BID PRN Hemorrhoids 01/23/23 07/16/23 History rectal suppository ipratropium bromide 21 mcg (0.03 2 spray intranasal AMHS 01/23/23 07/16/23 History %) nasal spray metformin 1,000 mg tablet 1,000 mg PO BID 01/23/23 07/16/23 History montelukast 10 mg tablet 10 mg PO QPM 01/23/23 07/16/23 History nystatin 100,000 unit/gram topical 1 applic topical BID 01/23/23 07/16/23 History powder nystatin-triamcinolone 100,000 1 applic topical BID PRN .flare ups 01/23/23 07/16/23 History unit/g-0.1 % topical cream pantoprazole 40 mg tablet,delayed 40 mg PO QAM 01/23/23 07/16/23 History release triamcinolone acetonide 0.1 % 1 applic topical BID PRN .flare ups 01/23/2307/15 History topical ointment docusate sodium 100 mg capsule 100 mg PO BID PRN constipation #60 02/05/23 07/16/23 Rx (Colace) caps magnesium oxide 400 mg (241.3 mg 400 mg PO DAILY@1200 #30 tabs 02/05/23 07/16/23 Rx magnesium) tablet phenazopyridine 100 mg tablet 100 mg PO TID PRN dysuria #30 tabs 02/05/23 07/16/23 Rx (Pyridium) polyethylene glycol 3350 17 gram 17 g PO DAILY PRN constipation #30 02/05/23 07/16/23 Rx oral powder packet (Miralax) ea multivitamin 1 tab PO QAM 03/05/23 07/16/23 History benzonatate 100 mg capsule 100 mg PO TID PRN cough #20 caps 03/12/23 07/16/23 Rx digoxin 250 mcg (0.25 mg) tablet 0.25 mg PO QAM #30 tabs 04/13/23 07/16/23 Rx metoprolol succinate 100 mg 100 mg PO BID #60 tabs 04/13/23 07/16/23 Rx tablet,extended release 24 hr torsemide 40 mg tablet 40 mg PO DAILY #30 tabs 04/13/23 07/16/23 Rx tamsulosin 0.4 mg capsule 0.4 mg PO HS #30 caps 05/21/23 07/16/23 Rx fluticasone fur. 100 mcg-umeclid 1 inh inhalation DAILY #60 ea 05/29/23 07/16/23 Rx 62.5 mcg-vilant 25 mcg inhalat.powder (Trelegy Ellipta) levalbuterol HCl 0.63 mg/3 mL 0.63 mg (3 mL) inhalation Q4 PRN 05/29/23 07/16/23 Rx solution for nebulization Wheezing #90 mL levalbuterol tartrate 45 2 inh inhalation Q6H PRN wheezing 06/03/23 07/16/23 Rx mcg/actuation aerosol inhaler #15 grams (Xopenex HFA) insulin regular hum U-500 conc 500 90 unit subcut ACHS 06/04/23 07/16/23 History unit/mL(3 mL) subcut pen (Humulin R U-500 (Conc) Insulin Kwikpen) omega-3 fatty acids 1,000 mg 1,000 mg PO QAM 07/16/23 07/16/23 History capsule Past Med/Surg History Medical History UTI (urinary tract infection) being treated w/ macrobid REID (dyspnea on exertion) History of COVID-19 03/07/23- hospitalized at [facility], "breathing issues" 02/14/2023, continues with cough and runny nose currently Chronic heart failure with preserved ejection fraction Morbid obesity Chronic sinusitis Wound dehiscence 2015 s/p hysterectomy Kidney stones passed on own previously and also stent placed 01/[address] [facility] [address] [place] History of bleeding ulcers GERD (gastroesophageal reflux disease) Hypertension Post traumatic stress disorder Bipolar disorder Depression Anxiety Peripheral neuropathy bilateral 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 no problems since then. History of pneumococcal septicemia treated at [facility] 2012. History of cardioversion RBBB Diabetes mellitus, type II IDDM Paroxysmal atrial fibrillation follows with Dr. Jason Mosley HLD (hyperlipidemia) REENA (obstructive sleep apnea) cpap at night H/O: CVA (cerebrovascular accident) 2004 -- no deficits. Arthritis COPD (chronic obstructive pulmonary disease) follows with [facility] (Dr Kat) Surgical History S/P laparotomy to repair hysterectomy wound dehiscence. History of cataract surgery bilateral History of tonsillectomy History of colonoscopy History of esophagogastroduodenoscopy (EGD) History of bronchoscopy S/P tendon repair bicep tendon repair (left) History of open reduction and internal fixation (ORIF) procedure Left elbow with hardware Hx of nasal septoplasty H/O: hysterectomy LUCERO with BSO Family History Other Diabetes No family history of adverse response to anesthesia Social History Smoking Status: Former smoker Tobacco Type: Cigarettes Cigarettes Per Day: 40; Second Hand Exposure: No; Do You Dip or Chew Tobacco: No; Hx Alcohol Use: No Hx Substance Use: No Preferred Language: Mongolian Communication Ability: Effective Qualitative Field Coordinator Required: No Beliefs That Will Affect Care: None marital status: Current Living Situation: Spouse Other Information That Helps Us Care for You: No Feels Safe at Home: Yes Safety Concerns: Feels Safe At This Time Assistive Devices: Cane and Walker Review of Systems Review of Systems: All systems reviewed & are unremarkable except as noted in HPI & below Physical Exam Physical Exam: General- Not in distress. Head- atraumatic Eyes- PERRL. ENT- oropharynx clear Neck- supple, no JVD. Lungs- clear to auscultation no wheezing or crackles. Heart- regular rhythm; no murmur, no gallop. Abdomen- normal bowel sounds, soft, nontender, no distension. Extremities- no pretibial edema, no erythema seen.Right groin tender. No rash seen in right groin. Neuro- alert, oriented PERRL, no facial palsy; no dysarthria; moves extremities. Results & Data Results & Data Vital Signs (Past 12 Hours) Vital Signs Temp Pulse Pulse Resp BP BP Pulse Ox 07/16/23 20:01 112/72 07/16/23 20:01 82 25 H 94 07/16/23 20:00 74 25 H 93 07/16/23 19:17 87 17 07/16/23 18:39 90 07/16/23 18:32 75 16 93 07/16/23 18:26 94 07/16/23 18:26 87 24 128/71 93 07/16/23 16:52 36.7 C 101 H 20 141/77 H 94 O2 Del Method 04/11/24 20:01 07/16/23 20:01 Room Air 07/16/23 20:00 07/16/23 19:17 07/16/23 18:39 07/16/23 18:32 07/16/23 18:26 Room Air 07/16/23 18:26 Room Air 07/16/23 16:52 Room Air Diagnostic Findings Laboratory Results WBC 11.11 K/ul (4.8-10.8) H 07/16/23 17:06 RBC 4.13 M/uL (4.20-5.40) L 07/16/23 17:06 Hgb 9.3 g/dl (12.0-16.0) L 07/16/23 17:06 Hct 32.0 % (37.0-47.0) L 07/16/23 17:06 MCV 77.5 fL (80.0-100.0) L 07/16/23 17:06 MCH 22.5 pg (25.0-34.0) L 07/16/23 17:06 MCHC 29.1 g/dL (32.0-36.0) L 07/16/23 17:06 RDW Std Deviation 56.1 fL (36.4-46.3) H 07/16/23 17:06 RDW Coeff of [place] 20.3 % (11.5-14.5) H 07/16/23 17:06 Plt Count 172 K/uL (130-400) 07/16/23 17:06 MPV 11.0 fL (9.4-12.4) 07/16/23 17:06 Immature Gran % (Auto) 0.8 % 07/16/23 17:06 Neut % (Auto) 53.1 % 07/16/23 17:06 Lymph % (Auto) 30.6 % 07/16/23 17:06 [place] % (Auto) 8.4 % 07/16/23 17:06 Eos % (Auto) 6.4 % 07/16/23 17:06 Baso % (Auto) 0.7 % 07/16/23 17:06 Neut # (Auto) 5.90 K/uL (1.40-6.50) 07/16/23 17:06 Lymph # (Auto) 3.40 K/uL (1.20-3.40) 07/16/23 17:06 [place] # (Auto) 0.93 K/uL (0.11-0.59) H 07/16/23 17:06 Eos # (Auto) 0.71 K/uL (0.00-0.50) H 07/16/23 17:06 Baso # (Auto) 0.08 K/uL (0.00-0.20) 07/16/23 17:06 Immature Gran # (Auto) 0.09 K/uL (0.01-0.20) 07/16/23 17:06 Absolute Nucleated RBC 0.02 K/uL (0.00-0.12) 07/16/23 17:06 Nucleated RBC % (auto) 0.2 % 07/16/23 17:06 Polychromasia 1+ 07/16/23 17:06 Anisocytosis Present 07/16/23 17:06 Sodium 135 mmol/L (136-145) L 07/16/23 17:06 Potassium 4.5 mmol/L (3.5-5.1) 07/16/23 17:06 Chloride 102 mmol/L (98-107) 07/16/23 17:06 Carbon Dioxide 22 mmol/L (21-32) 07/16/23 17:06 Anion Gap 11 (3-11) 07/16/23 17:06 BUN 21 mg/dl (6-23) 07/16/23 17:06 Creatinine 1.11 mg/dl (0.6-1.2) 07/16/23 17:06 Est Cr Clr Drug Dosing Not Reportable 07/16/23 17:06 Est GFR ( Amer) 57.9 ml/min 07/16/23 17:06 Est GFR (Non-Af Amer) 49.9 ml/min 07/16/23 17:06 BUN/Creatinine Ratio 18.9 (10-20) 07/16/23 17:06 Glucose 296 mg/dl (70-99(Fasting)) H 07/16/23 17:06 Lactate 2.8 mmol/L (0.4-2.0) H* 07/16/23 17:06 Calcium 9.3 mg/dl (8.6-10.3) 07/16/23 17:06 Total Bilirubin 0.6 mg/dl (0.2-1.0) 07/16/23 17:06 AST 29 U/L (13-39) 07/16/23 17:06 ALT 22 U/L (7-52) 07/16/23 17:06 Alkaline Phosphatase 89 U/L (34-104) 07/16/23 17:06 Total Protein 7.4 gm/dl (6.0-8.3) 07/16/23 17:06 Albumin 4.0 gm/dl (3.4-5.0) 07/16/23 17:06 Globulin 3.4 gm/dl (2.5-4.0) 07/16/23 17:06 Albumin/Globulin Ratio 1.2 (0.9-2) 07/16/23 17:06 Lipase 9 U/L (11-82) L 07/16/23 17:06 Urine Color Dark Yellow 07/16/23 19:07 Urine Appearance Clear (Clear) 07/16/23 19:07 Urine pH 5.5 (4.5-7.5) 07/16/23 19:07 Ur Specific [place] 1.027 (1.000-1.030) 07/16/23 19:07 Urine Protein Negative (Negative) 07/16/23 19:07 Urine Glucose (UA) 3+ (Negative) H 07/16/23 19:07 Urine Ketones Negative (Negative) 07/16/23 19:07 Urine Blood Negative (Negative) 07/16/23 19:07 Urine Nitrite Negative (Negative) 07/16/23 19:07 Urine Bilirubin Negative (Negative) 07/16/23 19:07 Urine Urobilinogen Negative (Negative) 07/16/23 19:07 Ur Leukocyte Esterase Negative (Negative) 07/16/23 19:07 Impressions Abdomen/Pelvis CT 07/16/23 16:[address] WITHOUT CONTRAST CT DOSE: 1591.82 mGy.cm HISTORY: Acute right-sided flank pain right flank pain, history kidney stone TECHNIQUE: Multiaxial CT images of the abdomen and pelvis were performed without contrast. A dose lowering technique was utilized adhering to the principles of ALARA. COMPARISON STUDY: CT 01/23/2023 FINDINGS: Cardiomegaly with coronary artery calcifications. Moderate bibasilar atelectasis/scarring. No free air. Unenhanced spleen, mildly atrophic pancreas, contracted gallbladder and adrenal glands are unremarkable. Hepatomegaly with suggestion of geographic hepatic steatosis. There are a few nonobstructing calculi left kidney measuring up to 4 mm. Punctate right renal calculi. There is mild right-sided hydroureteronephrosis. No obstructing ureteral calculi identified. Venous calcifications within the right abdomen redemonstrated. Decompressed urinary bladder with mild wall thickening. Hysterectomy. Atherosclerosis of the aorta. Mildly enlarged likely benign iliac and inguinal chain lymph nodes. No bowel obstruction. Colonic diverticulosis without definite evidence of acute diverticulitis. Hyperdense material noted within a noninflamed appendix. Small fat filled umbilical hernia. No acute fracture. Degenerative changes of the spine, pelvis and hips. IMPRESSION: 1. Mild right-sided hydroureteronephrosis without obstructing ureteral calculus or lesion identified. Findings may be secondary to a radiolucent stone, recently passed calculus or ascending infection. Correlate with urinalysis. 2. Nonobstructing bilateral nephrolithiasis. 3. Hepatomegaly with hepatic steatosis. 4. Colonic diverticulosis. 5. Additional findings as above. ACT 112: Negative or not required by law. The above report was generated using voice recognition software. It may contain grammatical, syntax or spelling errors. Electronically signed by: Gilbert Foster M.D. 07/16/2023 6:22 PM Code Status & VTE Plan VTE Prophylaxis Plan VTE Prophylaxis will be ordered: Yes
[2023-07-16] MEDS ORDERED: DOCUSATE SODIUM 100 MG CAP PO PRN (23:22)
[2023-07-16] MEDS ORDERED: BENZONATATE 100 MG CAPSULE PO PRN (23:22)
[2023-07-16] MEDS ORDERED: ACETAMINOPHEN 325 MG TAB PO PRN (23:22)
[2023-07-16] MEDS ORDERED: CARBOHYDRATES FOR HYPOGLYCEMIA PO PRN (23:22)
[2023-07-16] MEDS ORDERED: GLUCOSE 40% GEL 15 GM TUBE PO PRN (23:22)
[2023-07-16] MEDS ORDERED: POLYETHYLENE (MIRALAX) 17 GM PACK PO PRN ×2 (23:22)
[2023-07-16] MEDS ORDERED: LEVALBUTEROL TARTRATE 15 GM HFA.AER.AD INH PRN (23:22)
[2023-07-16] MEDS ORDERED: ONDANSETRON INJ 2 MG/ML 2 ML VIAL IV PRN (23:22)
[2023-07-16] MEDS ORDERED: HYDROCORTISONE ACETATE 25 MG SUPP PR PRN (23:22)
[2023-07-16] MEDS ORDERED: GLUCAGON FOR INJ 1 MG VIAL SQ PRN (23:22)
[2023-07-16] MEDS ORDERED: TRIAMCINOLONE ACET 0.1% OINT 15 GM TUBE TOP PRN (23:22)
[2023-07-16] MEDS ORDERED: DEXTROSE 50% 50 ML SYRINGE IV PRN (23:22)
[2023-07-16] MEDS ORDERED: GLUCOSE 10 TAB/TUBE PO PRN (23:22)
[2023-07-16] MEDS ORDERED: PHARMACY GLYCEMIC MGMT CONSULT PRN (23:22)
[2023-07-16] MEDS ORDERED: BACLOFEN 10 MG TAB PO PRN (23:22)
[2023-07-16] MEDS ORDERED: LEVALBUTEROL HCL 0.63 MG/3 ML NEB INH PRN (23:22)
[2023-07-16] MEDS ORDERED: NYSTATIN/TRIAMCIN CR 15 GM TUBE EXT PRN (23:22)
[2023-07-17] MEDS: METOPROLOL SUCC 50MG EXT REL TAB PO SCH (01:11)
[2023-07-17] MEDS: ATORVASTATIN 40 MG TAB PO SCH (01:11)
[2023-07-17] MEDS: TAMSULOSIN HCL 0.4 MG CAP PO SCH (01:11)
[2023-07-17] MEDS: FAMOTIDINE 20 MG TAB PO SCH (01:11)
[2023-07-17] MEDS: APIXABAN 5 MG TABLET PO SCH (01:11)
[2023-07-17] MEDS: MONTELUKAST SODIUM 10 MG TABLET PO SCH (01:11)
[2023-07-17] MEDS: Patient's HEIGHT &/or WEIGHT Needed STA (01:12)
[2023-07-17] MEDS: IPRATROPIUM BROMIDE NASAL SPRAY 0.06% 15ML SCH (01:12)
[2023-07-17] MEDS: NYSTATIN POWDER 15GM BTL EXT SCH (01:12)
[2023-07-17] MEDS: HYDROCODONE/ACETAMOPHEN 5/325MG TAB PO PRN (01:21)
[2023-07-17] MEDS: LANTUS PER UNIT CHARGE SQ ONE ×3 (01:23→13:08)
[2023-07-17] MEDS: INSULIN ASPART PER UNIT CHARGE SC SCH ×2 (01:23→13:08)
[2023-07-17] MEDS: PIPERACILLIN/TAZOBACTAM 4.5 GM in DEXTROSE 5% MINI-B 100 ML IV SCH (03:07)
[2023-07-17 05:44] LABS: Basophils # (auto) 0.05 K/uL (0.00-0.20); Basophils % (auto) 0.6 %; Eosinophils # (auto) 0.55 K/uL (0.00-0.50); Eosinophils % (auto) 6.2 %; Hemoglobin 8.4 g/dl (12.0-16.0); Immature Granulocytes # (auto) 0.06 K/uL (0.01-0.20); Immature Granulocytes % (auto) 0.7 %; Lymphocytes # (auto) 2.53 K/uL (1.20-3.40); Lymphocytes % (auto) 28.5 %; Mean Corpuscular Hemoglobin 22.7 pg (25.0-34.0); Mean Corpuscular Volume 78.4 fL (80.0-100.0); Mean Platelet Volume 10.4 fL (9.4-12.4); Monocytes # (auto) 0.81 K/uL (0.11-0.59); Monocytes % (auto) 9.1 %; Neutrophils # (auto) 4.89 K/uL (1.40-6.50); Neutrophils % (auto) 54.9 %; Platelet Count 145 K/uL (130-400); RDW Coefficient of Variation 19.9 % (11.5-14.5); RDW Standard Deviation 56.3 fL (36.4-46.3); White Blood Count 8.89 K/ul (4.8-10.8)
[2023-07-17 06:01] LABS: BUN Creatinine Ratio 18.1 (10-20); Calcium 8.7 mg/dl (8.6-10.3); Creatinine Clr Calc Pharmacy 71.4 ml/min; Est GFR (African American) 61.9 ml/min; Est GFR (Non-African American) 53.4 ml/min; Magnesium 1.6 mg/dl (1.7-2.4); Potassium 4.1 mmol/L (3.5-5.1)
[2023-07-17 07:00] LABS: Estimated Average Glucose 240 mg/dl
--- NOTE | 2023-07-17 07:38 | Hospitalist Progress Note ---
Date of Service July 17, 2023 Assessment & Plan (1) Groin pain: Plan: Ms. Mercado is a 73-year-old female with past medical history significant type 2 diabetes, dyslipidemia, gastroparesis due to diabetes, COPD, obstructive sleep apnea on CPAP, chronic diastolic CHF, history of CVA, history of persistent atrial fibrillation, hypertension, morbid obesity, GERD, bipolar 2 disorder, depression, former smoker who lives at home with her and ambulates with a walker because of back issues comes because of right groin pain. #Ambulatory dysfunction #Right groin pain #Moderate hip osteoarthritis -history of multilevel degenerative joint disease based upon review, lumbar imaging from 08/2022 reviewed in OP record with multilevel vertebral space narrowing and multilevel facet arthropathy -suspect given low suspicion of infection and urologic findings likely coincidental on side of pain that her pain is radiculopathic in nature as it spreads from low back, wraps around and down front of right leg CT lumbar spine Pain management consult -Patient established with pain mgmt as OP but doesn't tolerate gabapentin or most opioids Consider ortho spine contingent on above #Recent nephrolithiasis s/p stent, right (removed on 06/11/2023) CT scan showing mild right-sided hydroureteronephrosis without stone. Possible radiolucent stone, possible recently passed stone or ascending infection UA is unremarkable Received Zosyn in the ER empirically initially which will be continued for now Will follow the cultures Will consult urology in a.m.-as patient recently had a ureteral stent Elevated lactic acid 2.8 to 2.0 #Obstructive sleep apnea CPAP nightly #Type 2 diabetes Hold home meds, A1C 10 Lantus and sliding scale Adjust insulin Glycemic pharmacy consult #COPD Continue home inhalers #Chronic heart failure with preserved EF #HTN On torsemide 20mg daily, metoprolol 100 mg BID Will monitor #GERD On Protonix and famotidine #A-fib On digoxin, metoprolol and Eliquis #Hyperlipidemia On statin #History of CVA On Eliquis and statin #Morbid obesity -BMI 56, encouraged lifestyle modifications DVT prophylaxis On Eliquis Disposition Medical floor Full code Admission and Anticipated Discharge Date Admission Date: July 16, 2023 Subjective Reports pain is a chronic pain, even prior to stent placement--radiates from back to groin down front of leg. Patient reports history of LIZABETH "months ago" for sciatica she denies any urinary complaints at this time Patient states pain radiates from right low back around front into groin down right leg anteriorly Physical Exam Constitutional: WD/WN, vitals as above Respiratory: normal respiratory effort, lungs clear to auscultation Cardiovascular: RRR, no murmur, no edema Results & Data Results & Data Vital Signs (Past 12 Hours) Vital Signs Temp Pulse Pulse Resp BP BP BP 07/17/23 07:22 36.6 C 75 16 152/84 H 07/16/23 23:59 36.4 C L 79 20 121/70 07/16/23 23:30 07/16/23 22:47 07/16/23 22:02 112/63 07/16/23 22:02 81 27 H 07/16/23 22:00 82 26 H 07/16/23 20:01 112/72 07/16/23 20:01 82 25 H 07/16/23 20:00 74 25 H Pulse Ox O2 Del Method 07/17/23 07:22 93 CPAP 07/16/23 23:59 93 Room Air 07/16/23 23:30 CPAP 07/16/23 22:47 Room Air 07/16/23 22:02 07/16/23 22:02 93 Room Air 07/16/23 22:00 07/16/23 20:01 07/16/23 20:01 94 Room Air 07/16/23 20:00 93 Laboratory Results Short CBC 07/16/23 07/17/23 Range/Units 17:06 05:29 WBC 11.11 H 8.89 (4.8-10.8) K/ul Hgb 9.3 L 8.4 L (12.0-16.0) g/dl Hct 32.0 L 29.0 L (37.0-47.0) % Plt Count 172 145 (130-400) K/uL BMP 07/16/23 07/17/23 17:06 05:29 Sodium 135 L 138 Potassium 4.5 4.1 Chloride 102 107 Carbon Dioxide 22 24 BUN 21 19 Creatinine 1.11 1.05 Glucose 296 H 256 H Calcium 9.3 8.7 Liver Function 07/16/23 Range/Units 17:06 Total Bilirubin 0.6 (0.2-1.0) mg/dl AST 29 (13-39) U/L ALT 22 (7-52) U/L Alkaline Phosphatase 89 (34-104) U/L Albumin 4.0 (3.4-5.0) gm/dl Urine 07/16/23 Range/Units 19:07 Urine Color Dark Yellow Urine Appearance Clear (Clear) Urine pH 5.5 (4.5-7.5) Ur Specific [place] 1.027 (1.000-1.030) Urine Protein Negative (Negative) Urine Glucose (UA) 3+ H (Negative) Medications Administered Home Medications Medication Instructions Recorded Confirmed Last Taken apixaban 5 mg tablet (Eliquis) 5 mg PO BID 01/23/23 07/16/23 07/16/23 12:00 atorvastatin 40 mg tablet 40 mg PO QPM 01/23/23 07/16/23 07/15/23 baclofen 10 mg tablet 10 mg PO BID PRN Muscle Pain 01/23/23 07/16/23 05/27/23 famotidine 20 mg tablet 20 mg PO QPM 01/23/23 07/16/23 07/15/23 hydrocodone 5 mg-acetaminophen 325 1 tab PO Q6 PRN Pain 01/23/23 07/16/23 06/08/23 mg tablet hydrocortisone acetate 25 mg 25 mg [place] BID PRN Hemorrhoids 01/23/23 07/16/23 Unknown rectal suppository ipratropium bromide 21 mcg (0.03 2 spray intranasal AMHS 01/23/23 07/16/23 07/16/23 12:00 %) nasal spray metformin 1,000 mg tablet 1,000 mg PO BID 01/23/23 07/16/23 07/16/23 12:00 montelukast 10 mg tablet 10 mg PO QPM 01/23/23 07/16/23 07/15/23 nystatin 100,000 unit/gram topical 1 applic topical BID 01/23/23 07/16/23 06/09/23 23:00 powder nystatin-triamcinolone 100,000 1 applic topical BID PRN .flare ups 01/23/23 07/16/23 Unknown unit/g-0.1 % topical cream pantoprazole 40 mg tablet,delayed 40 mg PO QAM 01/23/23 07/16/23 07/16/23 12:00 release triamcinolone acetonide 0.1 % 1 applic topical BID PRN .flare ups 01/23/23 07/16/23 Unknown topical ointment docusate sodium 100 mg capsule 100 mg PO BID PRN constipation #60 02/05/23 07/16/23 06/09/23 23:00 (Colace) caps magnesium oxide 400 mg (241.3 mg 400 mg PO DAILY@1200 #30 tabs 02/05/23 07/16/23 07/16/23 magnesium) tablet phenazopyridine 100 mg tablet 100 mg PO TID PRN dysuria #30 tabs 02/05/23 07/16/23 Unknown (Pyridium) polyethylene glycol 3350 17 gram 17 g PO DAILY PRN constipation #30 02/05/23 07/16/23 06/09/23 18:00 oral powder packet (Miralax) ea multivitamin 1 tab PO QAM 03/05/23 07/16/23 07/16/23 12:00 benzonatate 100 mg capsule 100 mg PO TID PRN cough #20 caps 03/12/23 07/16/23 Unknown digoxin 250 mcg (0.25 mg) tablet 0.25 mg PO QAM #30 tabs 04/13/23 07/16/23 07/16/23 12:00 metoprolol succinate 100 mg 100 mg PO BID #60 tabs 04/13/23 07/16/23 07/16/23 12:00 tablet,extended release 24 hr torsemide 40 mg tablet 40 mg PO DAILY #30 tabs 04/13/23 07/16/23 07/16/23 12:00 tamsulosin 0.4 mg capsule 0.4 mg PO HS #30 caps 05/21/23 07/16/23 07/15/23 fluticasone fur. 100 mcg-umeclid 1 inh inhalation DAILY #60 ea 05/29/23 07/16/23 07/16/23 12:00 62.5 mcg-vilant 25 mcg inhalat.powder (Trelegy Ellipta) levalbuterol HCl 0.63 mg/3 mL 0.63 mg (3 mL) inhalation Q4 PRN 05/29/23 07/16/23 Unknown solution for nebulization Wheezing #90 mL levalbuterol tartrate 45 2 inh inhalation Q6H PRN wheezing 06/03/23 07/16/23 Unknown mcg/actuation aerosol inhaler #15 grams (Xopenex HFA) insulin regular hum U-500 conc 500 90 unit subcut ACHS 06/04/23 07/16/23 07/16/23 12:00 unit/mL(3 mL) subcut pen (Humulin R U-500 (Conc) Insulin Kwikpen) omega-3 fatty acids 1,000 mg 1,000 mg PO QAM 07/16/23 07/16/23 07/16/23 12:00 capsule Active Medications Generic Name Dose Route Start Last Admin Trade Name Freq PRN Reason Stop Dose Admin Hydrocodone Bitart/Acetaminophen 1 tab 07/16/23 23:22 07/17/23 01:21 Hydrocodone/Acetamophen 5/325mg Tab PO 07/30/23 23:21 1 tab Q6 PRN Administration Pain Apixaban 5 mg 07/16/23 23:22 07/17/23 01:11 Apixaban 5 Mg Tablet PO 08/15/23 23:21 5 mg BID GARIMA Administration Atorvastatin Calcium 40 mg 07/16/23 23:22 07/17/23 01:11 Atorvastatin 40 Mg Tab PO 08/15/23 23:21 40 mg QPM GARIMA Administration Famotidine 20 mg 07/16/23 23:22 07/17/23 01:11 Famotidine 20 Mg Tab PO 08/15/23 23:21 20 mg QPM GARIMA Administration Piperacillin Sod/Tazobactam 100 mls @ 25 mls/hr 07/17/23 03:00 07/17/23 03:07 Sod 4.5 gm/ Dextrose IV 07/19/23 02:59 25 mls/hr Q8H GARIMA Administration Protocol Insulin Aspart 0 units 07/17/23 00:45 07/17/23 04:40 Insulin Aspart Per Unit Charge SC 08/16/23 00:44 18 units Q4 GARIMA Administration Ipratropium [place] 1 sprays 07/16/23 23:22 07/17/23 01:12 Ipratropium [place] Nasal [place] 0.06% 15ml NA 08/15/23 23:21 1 sprays BID GARIMA Administration Metoprolol Succinate 100 mg 07/16/23 23:22 07/17/23 01:11 Metoprolol Succ 50mg Ext Rel Tab PO 08/15/23 23:21 100 mg BID GARIMA Administration Montelukast Sodium 10 mg 07/16/23 23:22 07/17/23 01:11 Montelukast Sodium 10 Mg Tablet PO 08/15/23 23:21 10 mg QPM GARIMA Administration Nystatin 1 appln 07/16/23 23:22 07/17/23 01:12 Nystatin Powder 15gm Btl EXT 08/15/23 23:21 1 appln BID GARIMA Administration Tamsulosin HCl 0.4 mg 07/16/23 23:22 07/17/23 01:11 Tamsulosin Hcl 0.4 Mg Cap PO 08/15/23 23:21 0.4 mg HS GARIMA Administration
[2023-07-17] MEDS: MAGNESIUM SULFATE / D5W 1 GM/100 ML BAG IV SCH (07:54)
[2023-07-17] MEDS ORDERED: LANTUS PER UNIT CHARGE SQ ONE (08:00)
[2023-07-17] MEDS ORDERED: NON-FORMULARY MEDICATION (Fluticasone-Umeclidin-Vilanter [Trelegy Ellipta] 100-62.5-25 mcg INH SCH (09:00)
--- NOTE | 2023-07-17 09:35 | Pharmacy Report ---
Pharmacy Glycemic Short Note 2 - Date of Service July 17, 2023 - Glycemic Short BSG Results (Last 24 hours): 07/16/23 07/17/23 07/17/23 17:06 00:04 00:06 Glucose 296 H POC Glucose 324 H* 315 H* 07/17/23 07/17/23 07/17/23 04:18 04:19 05:29 Glucose 256 H POC Glucose 306 H* 314 H* 07/17/23 07:59 Glucose POC Glucose 220 H OUTPATIENT ANTIDIABETIC REGIMEN: * U-500 - 90 units SC ACHS * Metformin 1 g PO BIDM HbA1c: 10% (07/17/23) ASSESSMENT: * CF is 73 year old female well known to pharmacy glycemic service due to historically high insulin requirements * Patient presented to ED on 07/15 w/ complaints of groin pain * Originally NPO, now ordered diet w/ breakfast. Will give additional 50 units of Lantus at lunchtime and then start 100 units BID. * Historically, patient has required > 500 units of insulin/day while inpatient w/ aggressive carb ratio * Will utilize past data to guide initial insulin dosing PLAN FOR INPATIENT GLYCEMIC CONTROL: * Hold outpatient oral diabetes medications * Basal insulin * Lantus 100 units SC BID * Bolus insulin * NovoLog per scale ACHS or Q6hrs while NPO * Goal Range: Low 110 mg/dL - High 140 mg/dL * Correction Factor: 5 mg/dL/unit * Nutritional / Prandial insulin per carb ratio of 1 unit per 1 grams CHO consumed
--- NOTE | 2023-07-17 09:36 | Urology Consultation ---
<Statement entered by Edvin Ventura MD - 07/17/23 11:28> I have discussed Ms. Chaudhary's case with ELAINA Shabazz and agree with the above documentation. No clear explanation for her groin pain on CT scan. Leukocytosis and lactate have improved. Urinalysis from 07/16/2023 was not terribly impressive or overly concerning for infection. We will hold off urolog ic intervention for now. -Edvin Ventura MD. Date of Consultation July 17, 2023 Assessment & Plan (1) Groin pain: 73 yo/F with history of nephrolithiasis, recurrent UTIs and multiple comorbidities admitted for worsening right groin pain, elevated lactate, and concern for ascending urinary infection. She is status post cystoscopy, right ureteral nephroscopy, laser destruction and extraction of stone and right stent exchange on 06/10/[address] Ventura. She had a tethered stent which was dislodged and removed the following day. She has been experiencing worsening right groin pain over the last month. Patient afebrile and hemodynamically stable Today's labscreatinine 1.05, WBC 8.89, hemoglobin 8.4, repeat lactate 2.0 Urinalysis on admission was not suspicious for UTI No urine culture pending Blood cultures are pending CT A/P reviewed and showed nonobstructing bilateral nephrolithiasis, possible mild right hydronephrosis, no obstructing stones visualized Continues to have right groin/upper leg discomfort Plan: No acute intervention today, okay for diet Continue with conservative management with supportive care and antibiotics at this time Follow culture data, urine culture ordered Recommend evaluating for other etiologies of pain will follow History of Present Illness Reason for Consultation: right groin pain. recent ureteral stent Requesting Physician: Dr. Palmer Attending Physician: Mary Kate Sosa MD History of Present Illness This is a 73-year-old female with history of kidney stones, recurrent UTIs, and multiple comorbidities who presented to the emergency department on 07/16/2023 for right groin pain. She is status post cystoscopy, right ureteral nephroscopy, laser destruction and extraction of stone and right stent exchange on 06/10/[address] Ventura. She had a tethered stent which was dislodged and removed the following day. Work-up in ED included CT abdomen and pelvis without contrast which showed possible mild right hydronephrosis, no obstructing ureteral calculus; nonobstructing bilateral nephrolithiasis. Lab work showed normal creatinine (1.11), mild leukocytosis of 11.11, hemoglobin 9.3, sodium 135, and lactate 2.8. Urinalysis showed 3+ glucose, otherwise negative. Patient seen and examined at bedside. She reports ongoing right lower quadrant/groin discomfort also felt down to upper leg. Pain is about the same, not worsening. Pain has been ongoing since after her stone surgery and stent removal with progressive worsening. She reports she has mostly been in bed at home. Pain is worse when she gets up and moves around. Denies dysuria or hematuria. No nausea or vomiting. No fever or chills. Patient had a PCR culture obtained at urology office yesterday. Chart review: Labs today-Creatinine 1.05, WBC 8.89, hemoglobin 8.4 Blood cultures pending KARMA on 07/13 showed no hydronephrosis Allergies Allergy/AdvReac Type Severity Reaction Status Date / Time Cephalosporins Allergy Intermediate RASH Verified 07/16/23 19:36 Sulfa (Sulfonamide Allergy Intermediate "Sulfa Verified 07/16/23 19:36 Antibiotics) Drugs = rash" terconazole Allergy Intermediate ITCHING, Verified 07/16/23 19:36 BURNING clarithromycin Allergy Unknown UNKNOWN Verified 07/16/23 19:36 clavulanic acid Allergy Unknown UNKNOWN Verified 07/16/23 19:36 clobetasol Allergy Unknown Unknown Verified 07/16/23 19:36 adhesive AdvReac Mild BAND-AIDS Verified 07/16/23 19:36 = SKIN IRRITATION Home Medications Medication Instructions Recorded Confirmed Type apixaban 5 mg tablet (Eliquis) 5 mg PO BID 01/23/23 07/16/23 History atorvastatin 40 mg tablet 40 mg PO QPM 01/23/23 07/16/23 History baclofen 10 mg tablet 10 mg PO BID PRN Muscle Pain 01/23/23 07/16/23 History famotidine 20 mg tablet 20 mg PO QPM 01/23/23 07/16/23 History hydrocodone 5 mg-acetaminophen 325 1 tab PO Q6 PRN Pain 01/23/23 07/16/23 History mg tablet hydrocortisone acetate 25 mg 25 mg VA BID PRN Hemorrhoids 01/23/23 07/16/23 History rectal suppository ipratropium bromide 21 mcg (0.03 2 spray intranasal AMHS 01/23/23 07/16/23 History %) nasal spray metformin 1,000 mg tablet 1,000 mg PO BID 01/23/23 07/16/23 History montelukast 10 mg tablet 10 mg PO QPM 01/23/23 07/16/23 History nystatin 100,000 unit/gram topical 1 applic topical BID 01/23/23 07/16/23 Histor y powder nystatin-triamcinolone 100,000 1 applic topical BID PRN .flare ups 01/23/23 07/16/23 History unit/g-0.1 % topical cream pantoprazole 40 mg tablet,delayed 40 mg PO QAM 01/23/23 07/16/23 History release triamcinolone acetonide 0.1 % 1 applic topical BID PRN .flare ups 01/23/23 07/16/23 History topical ointment docusate sodium 100 mg capsule 100 mg PO BID PRN constipation #60 02/05/23 07/16/23 Rx (Colace) caps magnesium oxide 400 mg (241.3 mg 400 mg PO DAILY@1200 #30 tabs 02/05/23 07/16/23 Rx magnesium) tablet phenazopyridine 100 mg tablet 100 mg PO TID PRN dysuria #30 tabs 02/05/23 07/16/23 Rx (Pyridium) polyethylene glycol 3350 17 gram 17 g PO DAILY PRN constipation #30 02/05/23 07/16/23 Rx oral powder packet (Miralax) ea multivitamin 1 tab PO QAM 03/05/23 07/16/23 History benzonatate 100 mg capsule 100 mg PO TID PRN cough #20 caps 03/12/23 07/16/23 Rx digoxin 250 mcg (0.25 mg) tablet 0.25 mg PO QAM #30 tabs 04/13/23 07/16/23 Rx metoprolol succinate 100 mg 100 mg PO BID #60 tabs 04/13/23 07/16/23 Rx tablet,extended release 24 hr torsemide 40 mg tablet 40 mg PO DAILY #30 tabs 04/13/23 07/16/23 Rx tamsulosin 0.4 mg capsule 0.4 mg PO HS #30 caps 05/21/23 07/16/23 Rx fluticasone fur. 100 mcg-umeclid 1 inh inhalation DAILY #60 ea 05/29/23 07/16/23 Rx 62.5 mcg-vilant 25 mcg inhalat.powder (Trelegy Ellipta) levalbuterol HCl 0.63 mg/3 mL 0.63 mg (3 mL) inhalation Q4 PRN 05/29/23 07/16/23 Rx solution for nebulization Wheezing #90 mL levalbuterol tartrate 45 2 inh inhalation Q6H PRN wheezing 06/03/23 07/16/23 Rx mcg/actuation aerosol inhaler #15 grams (Xopenex HFA) insulin regular hum U-500 conc 500 90 unit subcut ACHS 06/04/23 07/16/23 History unit/mL(3 mL) subcut pen (Humulin R U-500 (Conc) Insulin Kwikpen) omega-3 fatty acids 1,000 mg 1,000 mg PO QAM 07/16/23 07/16/23 History capsule Patient History Medical History UTI (urinary tract infection) being treated w/ macrobid REID (dyspnea on exertion) History of COVID-19 03/07/23- hospitalized at [facility], "breathing issues" 02/14/2023, continues with cough and runny nose currently Chronic heart failure with preserved ejection fraction Morbid obesity Chronic sinusitis Wound dehiscence 2015 s/p hysterectomy Kidney stones passed on own previously and also stent placed 01/[address] [facility] [address] Ventura History of bleeding ulcers GERD (gastroesophageal reflux disease) Hypertension Post traumatic stress disorder Bipolar disorder Depression Anxiety Peripheral neuropathy bilateral 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 no problems since then. History of pneumococcal septicemia treated at [facility] 2012. History of cardioversion RBBB Diabetes mellitus, type II IDDM Paroxysmal atrial fibrillation follows with Dr. Jason Mosley HLD (hyperlipidemia) REENA (obstructive sleep apnea) cpap at night H/O: CVA (cerebrovascular accident) 2004 -- no deficits. Arthritis COPD (chronic obstructive pulmonary disease) follows with [facility] Pulmonary (Dr Kat) Surgical History S/P laparotomy to repair hysterectomy wound dehiscence. History of cataract surgery bilateral History of tonsillectomy History of colonoscopy History of esophagogastroduodenoscopy (EGD) History of bronchoscopy S/P tendon repair bicep tendon repair (left) History of open reduction and internal fixation (ORIF) procedure Left elbow with hardware Hx of nasal septoplasty H/O: hysterectomy LUCERO with BSO Family History Other Diabetes No family history of adverse response to anesthesia Social History Smoking Status: Former smoker Tobacco Type: Cigarettes Cigarettes Per Day: 40; Second Hand Exposure: No; Do You Dip or Chew Tobacco: No; Hx Alcohol Use: No Hx Substance Use: No Preferred Language: Maltese Communication Ability: Effective Production Lead Required: No Beliefs That Will Affect Care: None marital status: Current Living Situation: Spouse Other Information That Helps Us Care for You: No Feels Safe at Home: Yes Safety Concerns: Feels Safe At This Time Assistive Devices: Cane, CPAP, Nebulizer, Raised Toilet Seat, Walker, Wheelchair and Other Review of Systems Review of Systems: All systems reviewed & are unremarkable except as noted in HPI & below Physical Exam Constitutional: + morbidly obese; no acute distress Respiratory: no respiratory distress Cardiovascular: Rate/Rhythm: regular rate Gastrointestinal (Abdomen): Inspection/Auscultation: abdomen normal to inspection Percussion/Palpation: abdomen soft; abdomen nontender and no guarding Musculoskeletal: Head/Neck/Chest: normocephalic Neurologic: awake Psychiatric: Orientation: alert, oriented x 3 and cooperative Results & Data Vital Signs (Past 12 Hours) Vital Signs Temp Pulse Pulse Resp BP BP BP 07/17/23 07:55 07/17/23 07:22 36.6 C 75 16 152/84 H 07/16/23 23:59 36.4 C L 79 20 121/70 07/16/23 23:30 07/16/23 22:47 07/16/23 22:02 112/63 07/16/23 22:02 81 27 H 07/16/23 22:00 82 26 H Pulse Ox O2 Del Method 07/17/23 07:55 Room Air 07/17/23 07:22 93 CPAP 07/16/23 23:59 93 Room Air 07/16/23 23:30 CPAP 07/16/23 22:47 Room Air 07/16/23 22:02 07/16/23 22:02 93 Room Air 07/16/23 22:00 PG Care Time/CCT Total # of Minutes Spent Total Time Spent with Patient: Total time spent is greater than 50% in coordination of care (as documented) at patient's floor/unit and/or counseling patient: Coding Level of Care Code 83777 INT INP/OBS CARE 2/55MIN Diagnoses Groin pain R10.30
[2023-07-17] MEDS: PANTOprazole 40 MG TAB PO SCH (09:43)
[2023-07-17] MEDS: UMECLIDINIUM/VILANTEROL 62.5/25MCG 7 PUFFS/INHALER INH SCH (09:43)
[2023-07-17] MEDS: FLUTICASONE FUROATE 100MCG 14 PUFFS/INHALER INH SCH (09:43)
[2023-07-17] MEDS: TORSEMIDE 20 MG TAB PO SCH ×2 (09:43→12:35)
[2023-07-17] MEDS: MULTIVITAMIN TAB PO SCH (09:43)
[2023-07-17] MEDS: INSULIN ASPART PER UNIT CHARGE SC ONE (10:33)
[2023-07-17] MEDS: MAGNESIUM OXIDE 400 MG TAB PO SCH (12:31)
[2023-07-17] MEDS ORDERED: traMADol HCL 50 MG TABLET PO PRN (15:01)
[2023-07-17] MEDS: ACETAMINOPHEN 325 MG TAB PO SCH ×2 (15:03→16:03)
--- NOTE | 2023-07-17 15:58 | CT Scan Report ---
LUMBAR SPINE CT CT DOSE: 1067.16 mGy.cm HISTORY: lumbar back pain, radiculopathic like symptoms TECHNIQUE: Multiaxial CT images of the lumbar spine were performed and reformatted in the sagittal an d coronal plane without the use of contrast. A dose lowering technique was utilized adhering to the principles of ALARA. COMPARISON: Abdomen and pelvis CT 07/16/2023. FINDINGS: No fracture or subluxation within the lumbar spine. The visualized sacrum is intact. No ellis dence for spondylolysis. Moderate to severe disc space narrowing throughout the lumbar spine with ass ociated endplate osteophytes. This is most pronounced at the L3-L4 and L4-5 levels. Moderate facet de generative changes most pronounced at the L5-S1 level. Paravertebral soft tissues are unremarkable. L umbar subcutaneous edema is noted. Mild central canal narrowing at L1-L2 due to a broad-based posteri or disc bulge and ligamentum flavum hypertrophy. Moderate central canal narrowing at L2-L3 and L3-L4 due to broad-based posterior disc bulges and ligamentum flavum/facet hypertrophy. There is mild to mo derate central canal narrowing at L4-L5 and L5-S1 due to the broad-based posterior disc bulges and li gamentum/facet hypertrophy. Moderate to severe multilevel bilateral neural foraminal narrowing within the lumbar spine most pronounced at the L4-5 and L5-S1 levels. IMPRESSION: 1. No fracture or subluxation within the lumbar spine. 2. Degenerative changes as described above. ACT 112: Negative or not required by law. Electronically signed by: Laci Zepeda M.D. 07/17/2023 3:57 PM
[2023-07-17] MEDS: DIGOXIN 0.25 MG TAB PO SCH (16:04)
[2023-07-17] MEDS: LIDOCAINE 5% 1 PATCH TD SCH (16:04)
--- OUTSIDE RECORDS SUMMARY | 2023-07-17 18:29 | External Medical Summary | Summary of Care ---
Author Name Unknown Organization [facility] Address [address] [place] [address] Phone [phone] Care Team Providers Care Truck Repair Supervisor Name Role Phone Sabine Mosley DO Primary Care Provider Reason for Visit * Reason Onset Date Comments Med Request 07/10/2023 Encounter Details Date Type Department Care Team (Late st Contact Info) Description 07/10/[address] [facility] [address] [place] [address] Sabine Mosley [address] [place] [address] Med Request Allergies Active Allergy Reactions Criticality Noted Date Comments Adhesive Tape 11/04/2017 sensitivity Cephalosporins Unknown 09/08/2000 Clarithromycin Rash 09/08/2000 Clavulanic Acid Unknown 02/17/2022 Clobetasol Unknown 02/17/2022 Sulfa Antibiotics High 09/08/2000 Unknown Other Reaction(s): "Sulfa Drugs = rash" Terconazole 09/09/2002 terazol - made her itchy documented as of this encounter (statuses as of 07/15/2023) Medications Medication Sig Dispensed Refills Start Date [...] daily as needed for Constipation. 0 Active ONETOUCH ULTRASOFT LANCETS MISC Use [...] the morning. 16.9 mL 0 06/27/2021 Active CPAP every night at bedtime. 0 Active Nebulizer/Tubing/Mo uthpiece Kit Please provide mask 1 Kit 0 02/10/2022 Active Saccharomyces boulardii 250 MG Oral Capsule [...] MG/DOSE)) Inject under the skin. 0 Active BD Pen Needle Isamar 2nd Gen 32G X 4 MMIndications:Type 2 diabetes mellitus with hemoglobin A1c goal of less than 7.0% (HCC) Use to inject insulin four times daily E11.9 200 Each 3 08/18/2022 Active Pantoprazole Sodium 40 MG Oral Tablet [...] As directed.. 12 Suppository 0 09/26/2022 Active metFORMIN HCl 1000 MG Oral Tablet [...] BEDTIME 20 Tablet 0 10/27/2022 Active Ipratropium [place] 0.03 % Nasal Solution (Atrovent) Administer 2 Sprays into nostril in the morning and 2 Sprays before bedtime. 90 mL 4 11/11/2022 Active Tamsulosin HCl 0.4 MG Oral Capsule (Flomax) TAKE 1 CAPSULE BY MOUTH EVERYDAY AT BEDTIME 0 11/07/2022 Active OneTouch Verio In Vitro Strip (Glucose Blood) Use up to 4 times a day E11.9 100 Strip 11 11/17/2022 Active OneTouch Verio w/Device Kit Use up to 3 times a day E11.9 1 Kit 0 11/20/2022 Active Eliquis 5 MG Oral Tablet (Apixaban)Indicatio ns:PAF (paroxysmal atrial fibrillation) ([facility]),Cerebrovascul ar disease, arteriosclerotic, post-stroke TAKE 1 TABLET BY MOUTH TWICE A DAY 180 Tablet 3 01/23/2023 Active Atorvastatin Calcium 40 MG Oral Tablet (Lipitor)Indication s:Dyslipidemia, goal LDL below 70 TAKE 1 TABLET BY MOUTH EVERY DAY 90 Tablet 1 02/16/2023 Active Phenazopyridine HCl 100 MG Oral Tablet (Pyridium) 0 02/15/2023 Active Ondansetron HCl 4 MG Oral Tablet (Zofran)Indications :Nausea Take 1 Tablet by mouth every 8 hours as needed for Nausea. 30 Tablet 0 02/17/2023 Active Trelegy Ellipta 100-62.5-25 MCG/ACT Aerosol Powder Breath ActivatedIndication s:COPD, group B, by GOLD 2017 classification ([facility]) Inhale 1 Puff by mouth in the morning. 180 Blister Dosing Unit 3 03/27/2023 Active Torsemide 40 MG Oral Tablet Take 40 mg by mouth in the morning. 0 Active Fluconazole 150 MG Oral Tablet (Diflucan)Indicatio ns:Yeast infection TAKE 1 TABLET BY MOUTH EVERY DAY ONE DOSE 1 Tablet 1 04/17/2023 Active Digoxin 125 MCG Oral Tablet (Lanoxin) Take 1 Tablet by mouth in the morning. 90 Tablet 3 04/22/2023 Active Premarin 0.625 MG/GM Vaginal Cream (Estrogens Conjugated)Indicati ons:Postmenopausal atrophic vaginitis ADMINISTER INTO THE VAGINA AT BEDTIME. DIRECTED. 90 g 2 04/29/2023 Active Nystatin 812322 UNIT/GM External Powder (Nystop)Indications :Melissa rash of groin APPLY 0.5 GRAM TO THE GROIN TWICE DAILY IN THE MORNING AND THE EVENING. 180 g 1 05/06/2023 Active Nystatin-Triamcinol one 910190-4.1 UNIT/GM-% External Cream (Mycolog)Indication s:Melissa rash of groin APPLY TOPICALLY TO THE AFFECTED AREA TWICE DAILY FOR 14 DAYS. 60 g 1 05/07/2023 Active Insulin Glargine Solostar 100 UNIT/ML Subcutaneous Solution Pen-injector (Basaglar KwikPen)Indications :Type 2 diabetes mellitus with hemoglobin A1c goal of less than 7.0% ([facility]) INJECT 100 UNITS TWICE DAILY DIRECTED. E11.9 60 mL 3 05/19/2023 Active NovoLOG FlexPen 100 UNIT/ML Subcutaneous Solution Pen-injector (insulin aspart)Indications: Type 2 diabetes mellitus with hemoglobin A1c goal of less than 7.0% ([facility]) Use up to 75 units twice daily E11.975 45 mL 5 05/19/2023 Active HYDROcodone-Acetami nophen 5-325 MG Oral TabletIndications:N ephrolithiasis Take 1 Tablet by mouth every 6 hours as needed for Pain, Severe. 30 Tablet 0 05/27/2023 Active Metoprolol Succinate ER 100 MG Oral Tablet Extended Release 24 Hour (toPROL XL) Take 1 Tablet by mouth in the morning and 1 Tablet before bedtime. 180 Tablet 3 06/05/2023 Active HumuLIN R U-500 KwikPen 500 UNIT/ML Subcutaneous Solution Pen-injector (Insulin Regular Human (Conc)) Inject 90 Units under the skin in the morning and 90 Units at noon and 90 Units in the evening. Inject with meals. And with bedtime snack. 45 mL 5 06/24/2023 Active Albuterol Sulfate HFA 108 (90 Base) MCG/ACT Inhalation Aerosol SolutionIndications :COPD, group B, by GOLD 2017 classification ([facility]) Inhale 2 Puffs by mouth every 6 hours as needed for Cough, Shortness of Breath or Wheezing. 18 g 2 07/04/2023 Active documented as of this encounter (statuses as of 07/15/2023) Active Problems Problem Noted Date Diagnosed Date Gastroparesis due to DM 05/06/2023 History of cerebrovascular accident 02/17/2023 Former smoker [...] as of this encounter (statuses as of 07/15/2023) Resolved Problems Problem Noted Date Diagnosed Date [...] colitis 12/09/2012 017 Genetic Sleep Disorder [facility] Other*[id number] 03/02/2012 11/01/2015 Tobacco use disorder 11/20/2011 014 [...] as of this encounter (statuses as of 07/15/2023) Immunizations Name Administration Dates Next Due COVID-19 [...] Date Smoking Tobacco: Former Cigarettes 2 30 0 12/16/1982 - 12/16/2012 Passive Smoke Exposure: Current Smokeless Tobacco: [...] Telephone Encounter - Sabine Mosley DO - 07/15/2023 12:56 PM EDT Is she taking 20 mg or Torsemide or 40 mg? Which hospital stady? * Telephone Encounter - Elisha Morris CPhT - 07/10/2023 3:11 PM EDT Patient calling requesting Torsemide 40 MG Oral Tablet . Upon chart review, medication was last prescribed by hospital. Pt did schedule a hospital follow up visit. Please advise if you wish to continue this therapy for the patient. Provider told patient it would be 20mg. Given at [facility]. Thank you, Elisha Morris Chip Tester [facility] ([facility] (Formerly [facility]) 07/10/2023,3:12 PM documented in this encounter Plan of Treatment Upcoming Encounters Date Type Department Care Team (Late st Contact Info) Description 07/20/2023 12:40 PM EDT Office Visit [facility] [address] [place] [address] Adri Gibson MD [address] [place] [id number] 07/30/2023 3:50 PM EDT Office Visit Pharmacy, [facility] [address] [address] [facility] [id number] 08/27/2023 9:30 AM EDT Office Visit [address] [id number] Sabine Mosley, [address] [place] [id number] 01/01/2024 11:20 AM EDT Office Visit Nephrology, [facility] [address] [place] [address] Eliot Humphrey MD [address] [place] [address] Health Maintenance Due Date Last Done Comments Fecal Occult Blood Test 1997 Sigmoidoscopy 1997 Colonoscopy 01/03/2020 01/02/2010 DTaP,Tdap,and Td Vaccines (3 - Td or Tdap) 11/18/2020 11/18/2010, 11/18/2010 Diabetic Eye Exam 06/17/2023 06/16/2022, , 03/23/2020, Additional history exists Albumin/Creatinine Ratio 09/23/2023 023, 08/22/2021, 09/13/2020, Additional history exists Diabetic Foot Exam 09/23/2023 09/22/2022, 0 08/22/2021, 11/16/2020, Additional history exists HbA1c 10/16/2023 04/17/2023, 09/04, 05/19/2022, Additional history exists DXA Scan 01/04/2024 01/03/2019, 050 11/2013, 06/12/2000 Mammogram 03/26/2024 03/26/2023, 03/06, 02/11/2021, Additional history exists B-12 04/22/2024 04/22/2023, 05/07, 04/29/2021, Additional history exists DIG LEVEL FOR MEDICATION MONITORING YEARLY 05/13/2024 05/13/2023, 04/17/2023, 04/29/2012 GFR 05/13/2024 05/13/2023, 04/06, 04/17/2023, Additional history exists O2 ASSESSMENT COMPLETED IN PAST YEAR FOR COPD 07/02/2024 07/03/2023 Cologuard 08/30/2024 08/30/2021, 08/05, 08/25/2021, Additional history exists Colorectal Cancer Screening 08/30/2024 Hepatitis C Screening Completed 09/12/2001 Pneumococcal Vaccine: 65+ Years Completed 08/10/2018, 07/23/2017, 01/18/2002 Zoster Vaccines Completed 02/10/2019, 12/2018, 01/01/2012 Alpha-1 Antitrypsin Completed 07/18/2021 LUNG CANCER SCREENING - USE SMARTSET [id number] Completed 09/08/2022, 08/26/2021, 01/23/2017 COVID-19 Vaccine Completed 12/30/2022, , 08/12/2021, Additional history exists Influenza Vaccine (FLU shot) Completed , 12/12/2021, 12/12/2021, Additional history exists GARDASIL-HPV IMMUNIZATION SERIES Aged Out No longer eligible based on patient's age to complete this topic Hepatitis B Aged Out No longer eligi ble based on patient's age to complete this topic MENINGOCOCCAL (MENACTRA/MENVEO) Aged Out No longer eligible based on patient's age to complete this topic documented as of this encounter Medical Devices Not on filedocumented as of this encounter Care Teams Truck Repair Supervisor Relationship Specialty Start Date End Date Sabine Mosley DO [address] [place] [address] PCP - General Family Medicine 08/20/10 documented as of this encounter
[2023-07-17] MEDS: LANTUS PER UNIT CHARGE SQ SCH (20:55)
[2023-07-18] MEDS: INSULIN ASPART PER UNIT CHARGE SC SCH (02:25)
[2023-07-18 07:19] LABS: Hematocrit (blood only) 29.6 % (37.0-47.0); Hemoglobin 8.6 g/dl (12.0-16.0); Mean Corpuscular Hemoglobin 22.5 pg (25.0-34.0); Mean Corpuscular Hgb Conc 29.1 g/dL (32.0-36.0); Mean Corpuscular Volume 77.5 fL (80.0-100.0); Mean Platelet Volume 10.8 fL (9.4-12.4); Platelet Count 149 K/uL (130-400); RDW Coefficient of Variation 20.2 % (11.5-14.5); RDW Standard Deviation 56.3 fL (36.4-46.3); Red Blood Count 3.82 M/uL (4.20-5.40); White Blood Count 9.41 K/ul (4.8-10.8)
[2023-07-18 07:38] LABS: BUN Creatinine Ratio 17.9 (10-20); Calcium 9.1 mg/dl (8.6-10.3); Creatinine Clr Calc Pharmacy 78.9 ml/min; Est GFR (African American) 69.8 ml/min; Est GFR (Non-African American) 60.3 ml/min; Magnesium 1.8 mg/dl (1.7-2.4); Phosphorus 3.5 mg/dl (2.5-4.9); Potassium 4.5 mmol/L (3.5-5.1)
[2023-07-18 07:57] LABS: Ferritin 7.5 ng/ml (8-388)
[2023-07-18 08:03] LABS: Folate (Folic Acid),Ser orPlas > 22.30 ng/ml (>5.38)
[2023-07-18 08:04] LABS: Vitamin B12 577 pg/ml (180-914)
[2023-07-18] MEDS: HumuLIN-R 500 UNITS/ML VIAL SQ SCH (09:17)
--- NOTE | 2023-07-18 10:51 | Urology Progress Note ---
Date of Service July 18, 2023 Assessment & Plan (1) Groin pain: (2) Pyelonephritis: Plan Currently Tiffanie is well-appearing and hemodynamically stable. No leukocytosis at this point. Urine and blood cultures are pending but negative so far. No fevers off antibiotics. I have low suspicion that her pain is related to ureteral obstruction -I think is more likely musculoskeletal in nature. Will hold off on any urologic intervention for now. We will arrange outpatient follow-up to continue with stone prevention measures and surveillance. Urology will sign off for now. Please call with any questions or concerns. Admission and Anticipated Discharge Date Admission Date: July 16, 2023 Subjective Feeling well this morning Still having some right lower quadrant pain, reports some back pain as well bilaterally. No fevers or chills No leukocytosis (WBC 9.41), creatinine normal at 0.95, glucose slightly elevated. Urine culture pending although may be skewed as she was on antibiotics before was collected, blood cultures negative at [address] scan did not identify any obstructing stones. Physical Exam Physical Exam: Well-appearing, NAD, resting in bed. Results & Data Vital Signs (Past 12 Hours) Vital Signs Temp Pulse Resp BP Pulse Ox O2 Del Method 07/18/23 07:55 36.4 C L 75 18 146/82 H 94 Room Air PG Care Time/CCT Total # of Minutes Spent Total Time Spent with Patient: Total time spent is greater than 50% in coordination of care (as documented) at patient's floor/unit and/or counseling patient: Coding Level of Care Code 35917 SUB INP/OBS CARE 1/25MIN Diagnoses Groin pain R10.30 Pyelonephritis N12
--- NOTE | 2023-07-18 10:59 | Discharge Summary ---
Discharge Summary Date of Service July 18, 2023 Notes For Next Care Provider Medication Changes From Visit Discontinue hydrocodone-apap Start tramadol 50mg q 4-6h Admission HPI Per Admitting Provider 73-year-old female with past medical history significant for type 2 diabetes, dyslipidemia, gastroparesis due to diabetes, COPD, obstructive sleep apnea on CPAP, chronic diastolic CHF, history of CVA, history of persistent atrial fibrillation, hypertension, morbid obesity, GERD, bipolar 2 disorder, depression, former smoker who lives at home with her and ambulates with a walker because of back issues comes because of right groin pain. Patient states she had ureteral stent and was taken out. And since then she is having pain in the right groin but lately it got progressively very severe. Any movement is causing pain to shoot up. Denies any fevers. No burning micturition. No blood in the urine. Somewhat constipated. Denies any abdominal pain. No chest pain . Sometimes gets short of breath. Has runny nose from allergies. Occasional cough. No difficulty swallowing. Mild dizziness. Mild headache. No blurred visions. Currently resting comfortably and hemodynamically stable. Past medical history. As mentioned above Past surgical history. Right breast biopsy. Colonoscopy. Cystoscopy. Tonsillectomy. Repair of nasal septum. Total abdominal hysterectomy with removal of tubes. Social history. . Quit smoking 2012. Smoked 2 packs a day for 30 years. No alcohol use. No drug use. Family history. Father had chronic rhinitis. COPD. Skin cancer. Diabetes. Mother had breast cancer. Maternal grandmother had diabetes. Paternal grandmother had diabetes. Admission Exam Per Admitting Provider General- Not in distress. Head- atraumatic Eyes- PERRL. ENT- oropharynx clear Neck- supple, no JVD. Lungs- clear to auscultation no wheezing or crackles. Heart- regular rhythm; no murmur, no gallop. Abdomen- normal bowel sounds, soft, nontender, no distension. Extremities- no pretibial edema, no erythema seen.Right groin tender. No rash seen in right groin. Neuro- alert, oriented PERRL, no facial palsy; no dysarthria; moves extremities. Principal Dx & Hospital Course #1 = Principal Diagnosis (1) Groin pain: Ms. Mercado is a 73-year-old female with past medical history significant type 2 diabetes, dyslipidemia, gastroparesis due to diabetes, COPD, obstructive sleep apnea on CPAP, chronic diastolic CHF, history of CVA, history of persistent atrial fibrillation, hypertension, morbid obesity, GERD, bipolar 2 disorder, depression, former smoker who lives at home with her and ambulates with a walker because of back issues comes because of right groin pain. Pain determined not to be urological and likely related to ongoing spine disease with which she follows a specialist for. Patient states she feels safe to return home and follow up on with [facility] specialist. 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 The visualized sacrum is intact. No evidence for spondylolysis. Moderate to severe disc space narrowing throughout the lumbar spine with associated endplate osteophytes. This is most pronounced at the L3-L4 and L4-5 levels. Moderate facet degenerative changes most pronounced at the L5-S1 level. Paravertebral soft tissues are unremarkable. Lumbar subcutaneous edema is noted. Mild central canal narrowing at L1-L2 due to a broad-based posterior disc bulge and ligamentum flavum hypertrophy. Moderate central canal narrowing at L2-L3 and L3-L4 due to broad- based posterior disc bulges and ligamentum flavum/facet hypertrophy. There is mild to moderate central canal narrowing at L4-L5 and L5-S1 due to the broad- based posterior disc bulges and ligamentum/facet hypertrophy. Moderate to severe multilevel bilateral neural foraminal narrowing within the lumbar spine most pronounced at the L4-5 and L5-S1 levels. Pain management consult discontinued and orthospine as patient established as an OP and follows on 07/21 with Spine surgeonn #Recent nephrolithiasis s/p stent, right (removed on 06/11/2023) CT scan showing mild right-sided hydroureteronephrosis without stone. Possible radiolucent stone, possible recently passed stone or ascending infection UA is unremarkable Received Zosyn in the ER empirically initially which will be continued for now Will follow the cultures Will consult urology in a.m.-as patient recently had a ureteral stent Elevated lactic acid 2.8 to 2.0 #Obstructive sleep apnea CPAP nightly #Type 2 diabetes Hold home meds, A1C 10 Lantus and sliding scale Adjust insulin Glycemic pharmacy consult #COPD Continue home inhalers #Chronic heart failure with preserved EF #HTN On torsemide 20mg daily, metoprolol 100 mg BID Will monitor #GERD On Protonix and famotidine #A-fib On digoxin, metoprolol and Eliquis #Hyperlipidemia On statin #History of CVA On Eliquis and statin #Morbid obesity -BMI 56, encouraged lifestyle modifications Discharge Exam Constitutional WD/WN, vitals as above Cardiovascular RRR, no murmur, no edema Gastrointestinal (Abdomen) normal bowel sounds, soft, nontender, no hepatosplenomegaly Updated Medication List Medication Instructions Recorded Confirmed Type apixaban 5 mg tablet (Eliquis) 5 mg PO BID 01/23/23 07/16/23 History atorvastatin 40 mg tablet 40 mg PO QPM 01/23/23 07/16/23 History baclofen 10 mg tablet 10 mg PO BID PRN Muscle Pain 01/23/23 07/16/23 History famotidine 20 mg tablet 20 mg PO QPM 01/23/23 07/16/23 History hydrocortisone acetate 25 mg 25 mg VT BID PRN Hemorrhoids 01/23/23 07/16/23 History rectal suppository ipratropium bromide 21 mcg (0.03 2 spray intranasal AMHS 01/23/23 07/16/23 History %) nasal spray metformin 1,000 mg tablet 1,000 mg PO BID 01/23/23 07/16/23 History montelukast 10 mg tablet 10 mg PO QPM 01/23/23 07/16/23 History nystatin 100,000 unit/gram topical 1 applic topical BID 01/23/23 07/16/23 History powder nystatin-triamcinolone 100,000 1 applic topical BID PRN .flare ups 01/23/23 07/16/23 History unit/g-0.1 % topical cream pantoprazole 40 mg tablet,delayed 40 mg PO QAM 01/23/23 07/16/23 History release triamcinolone acetonide 0.1 % 1 applic topical BID PRN .flare ups 01/23/23 07/16/23 History topical ointment docusate sodium 100 mg capsule 100 mg PO BID PRN constipation #60 02/05/23 07/16/23 Rx (Colace) caps magnesium oxide 400 mg (241.3 mg 400 mg PO DAILY@1200 #30 tabs 02/05/23 07/16/23 Rx magnesium) tablet phenazopyridine 100 mg tablet 100 mg PO TID PRN dysuria #30 tabs 02/05/23 07/16/23 Rx (Pyridium) polyethylene glycol 3350 17 gram 17 g PO DAILY PRN constipation #30 02/05/23 07/16/23 Rx oral powder packet (Miralax) ea multivitamin 1 tab PO QAM 03/05/23 07/16/23 History benzonatate 100 mg capsule 100 mg PO TID PRN cough #20 caps 03/12/23 07/16/23 Rx digoxin 250 mcg (0.25 mg) tablet 0.25 mg PO QAM #30 tabs 04/13/23 07/16/23 Rx metoprolol succinate 100 mg 100 mg PO BID #60 tabs 04/13/23 07/16/23 Rx tablet,extended release 24 hr tamsulosin 0.4 mg capsule 0.4 mg PO HS #30 caps 05/21/23 07/16/23 Rx fluticasone fur. 100 mcg-umeclid 1 inh inhalation DAILY #60 ea 05/29/23 07/16/23 Rx 62.5 mcg-vilant 25 mcg inhalat.powder (Trelegy Ellipta) levalbuterol HCl 0.63 mg/3 mL 0.63 mg (3 mL) inhalation Q4 PRN 05/29/23 07/16/23 Rx solution for nebulization Wheezing #90 mL levalbuterol tartrate 45 2 inh inhalation Q6H PRN wheezing 06/03/23 07/16/23 Rx mcg/actuation aerosol inhaler #15 grams (Xopenex HFA) insulin regular hum U-500 conc 500 90 unit subcut ACHS 06/04/23 07/16/23 History unit/mL(3 mL) subcut pen (Humulin R U-500 (Conc) Insulin Kwikpen) omega-3 fatty acids 1,000 mg 1,000 mg PO QAM 07/16/23 07/16/23 History capsule acetaminophen 325 mg tablet 650 mg (2 x 325 mg) PO Q6H #120 07/18/23 Rx tabs lidocaine 5 % topical patch 1 patch transdermal QAM #30 ea 07/18/23 Rx torsemide 40 mg tablet 20 mg (1/2 x 40 mg) PO DAILY #30 07/18/23 Rx tabs tramadol 50 mg tablet 50 mg PO Q4H PRN pain #30 tabs 07/18/23 Rx Hospital Stay Data Consultations 07/16/23 19:19 ED Decision to Admit Stat 07/17/23 08:00 Consult Urology Routine 07/17/23 14:28 Consult Pain Management Routine 07/17/23 17:23 Consult Orthopedic Spine Surgery Routine Diagnostic Imagining Performed 07/16/23 16:57 CT abd pelvis wo con Stat 07/17/23 14:27 CT lumbar spine wo con Routine Pending Results Patient Have Any Pending Studies at Discharge: No Discharge Instructions Given to Patient (Per Discharging Provider) You were admitted for flank pain which was initially thought to be related to existing issues with right kidney; however, urine was not suspicious for infection and Urology did not feel symptoms were related. The description of your pain sounds like it is radiating from nerves in your back likely due to moderate/severe disease in your spine. Physical therapy and evaluation by Ortho Spine doctor; however, you noted you have an appointment upcoming with your Spine doctor on . It is strongly recommended you stay and follow up with your established specialist. Please continue tylenol 650mg every 6 hours and use Tramadol 50mg every 4-6 hours for severe pain. Total Time Total Time Spent Total Time Spent (In Minutes): 45
== END 2023-07-18 15:20 | disposition home or self-care (01) | DRG 552 ==
LOC: ED 16:40 → INTOOBSV 20:44 → 3N 20:44

== ENCOUNTER 2024-07-03 20:37 | Inpatient (IN) ==
--- OUTSIDE RECORDS SUMMARY | 2024-07-03 20:43 | External Medical Summary | Summary of Care ---
Author Name Unknown Organization [facility] Address [address] [place] [address] Phone [phone] Care Team Providers Care Net Developer Name Role Phone Paula Pan PA-C Primary Care Provider [phone] Reason for Visit * Reason Comments Outpatient Testing Encounter Details Date Type Department Care Team (Late st Contact Info) Description 06/25/2024 2:40 PM EDT Laboratory Laboratory, [facility] [address] [place] [id number] [facility] [address] [place] [address] Arrived Allergies Active Allergy Reactions Criticality Noted Date Comments Adhesive Tape 11/04/2017 sensitivity Cephalosporins Unknown 09/08/2000 Clarithromycin Rash 09/08/2000 Clobetasol Unknown 02/17/2022 Sulfa Antibiotics High 09/08/2000 Unknown Other Reaction(s): "Sulfa Drugs = rash" Terconazole 09/09/2002 terazol - made her itchy documented as of this encounter (statuses as of 06/25/2024) Medications INSULIN SYRINGES (DISP) 1ML U-100 MISCIndications:DM type 2, goal A1c below 7 as directed BID 100 6 04/17/200 6 Active OMEGA 3-6-9 FATTY ACIDS PO CAPS 1 daily Active MUCINEX 600 MG PO TB12 1 DAILY if needed Active CINNAMON 500 MG PO CAPS 2 tab twice a day Active EQ ARTHRITIS PAIN 650 MG PO TBCR 1-2 tabs daily Active clobetasol propionate (TEMOVATE) 0.05 % cream As needed 0 5 Active Insulin Syringe 31G X /" 0.5 ML MISCIndications:DM type 2, not at goal (HCC) Use with insulin to inject 6 times per day as directed DX 250.00 6 Box 2 5 Active levalbuterol (XOPENEX HFA) 45 MCG/ACT inhaler 7 Active Bisacodyl 5 MG Oral Tablet Delayed Release Take 1 Tablet by mouth daily as needed for Constipation. Active ONETOUCH ULTRASOFT LANCETS MISC Use as directed 4 times a day as needed (fluctuations in blood glucose). Use up to four times a day as directed 3 Box Dosing Unit 3 8 Active Glucose Blood (ONETOUCH VERIO) STRP Use up to 4 times a day E11.9 300 Strip 3 8 Active Lactobacillus (PROBIOTIC ACIDOPHILUS) TABS Take by mouth. Active Biotin 1 MG Oral Capsule Take 1 Capsule by mouth in the morning. Active Triamcinolone Acetonide 55 MCG/ACT Nasal Aerosol Administer into nostril 2 Sprays in the morning. 16.9 mL 2 Active CPAP every night at bedtime. Active Nebulizer/Tubing/M outhpiece Kit Please provide mask 1 Kit 2 Active Saccharomyces boulardii 250 MG Oral Capsule (Florastor) Take 1 Capsule by mouth in the morning and 1 Capsule before bedtime. 20 Capsule 3 Active Levalbuterol HCl 0.63 MG/3ML Inhalation Nebulization Solution (Xopenex) Inhale 3 mL via nebulizer every 4 hours as needed for Wheezing. 1080 mL 5 3 Active OneTouch Verio In Vitro Strip (Glucose Blood) Use up to 4 times a day E11.9 100 Strip 11 3 Active OneTouch Verio w/Device Kit Use up to 3 times a day E11.9 1 Kit 3 Active Albuterol Sulfate HFA 108 (90 Base) MCG/ACT Inhalation Aerosol SolutionIndication s:COPD, group B, by GOLD 2017 classification ([facility]) Inhale 2 Puffs by mouth every 6 hours as needed for Cough, Shortness of Breath or Wheezing. 18 g 2 4 Active Acetaminophen 325 MG Oral Capsule Take by mouth. Active Nystatin 229632 UNIT/GM External Powder (Nystop)Indication s:Melissa rash of groin APPLY 0.5 GRAM TO THE GROIN TWICE DAILY IN THE MORNING AND THE EVENING. 180 g 1 4 Active Nystatin-Triamcino lone 902236-3.1 UNIT/GM-% External Cream (Mycolog)Indicatio ns:Melissa rash of groin APPLY TOPICALLY TO THE AFFECTED AREA TWICE DAILY FOR 14 DAYS. 60 g 1 4 Active Ipratropium Bradley 0.03 % Nasal Solution (Atrovent) ADMINISTER 2 SPRAYS INTO NOSTRIL IN THE MORNING AND 2 SPRAYS BEFORE BEDTIME. 90 mL 4 4 Active traMADol HCl 50 MG Oral Tablet (Ultram)Indication s:Hip pain, left Take 1 Tablet by mouth at bedtime as needed for Pain, Severe. 15 Tablet 4 Active Triamcinolone Acetonide 0.1 % External Cream (Aristocort)Indica tions:Hand dermatitis Apply topically to affected area 2 times a day. To affected area. 80 g 5 4 Active Digoxin 125 MCG Oral Tablet (Lanoxin) TAKE 1 TABLET BY MOUTH EVERY DAY IN THE MORNING 90 Tablet 5 Active Eliquis 5 MG Oral Tablet (Apixaban)Indicati ons:PAF (paroxysmal atrial fibrillation) ([facility]),Cerebrovascu lar disease, arteriosclerotic, post-stroke TAKE 1 TABLET BY MOUTH TWICE A DAY 180 Tablet 5 Active Pregabalin 50 MG Oral Capsule (Lyrica)Indication s:Primary osteoarthritis of both hips,Hip pain, right,Degeneration 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 60 Capsule 1 5 Active Trelegy Ellipta 100-62.5-25 MCG/ACT Aerosol Powder Breath ActivatedIndicatio ns:COPD, group B, by GOLD 2017 classification ([facility]) INHALE 1 PUFF BY MOUTH IN THE MORNING 180 Each 3 5 Active Doxycycline Hyclate 100 MG Oral CapsuleIndications :Pneumonia of right lower lobe due to infectious organism Take 1 Capsule by mouth in the morning and 1 Capsule before bedtime. Do all this for 10 days. Until gone.. 20 Capsule 5 025 Active Atorvastatin Calcium 40 MG Oral Tablet (Lipitor)Indicatio ns:Dyslipidemia, goal LDL below 70 Take 1 Tablet by mouth in the morning. 90 Tablet 2 5 Active BD Pen Needle Isamar 2nd Gen 32G X 4 MMIndications:Type 2 diabetes mellitus with hemoglobin A1c goal of less than 7.0% ([facility]) Use to inject insulin four times daily E11.9 200 Each 1 5 Active Diclofenac Sodium 1 % External Gel (Voltaren) Apply topically to affected area 2 times a day. Apply to painful joints 100 g 2 5 Active Famotidine 20 MG Oral Tablet (Pepcid) Take 1 Tablet by mouth in the morning. 90 Tablet 5 Active HumuLIN R U-500 KwikPen 500 UNIT/ML Solution Pen-injectorIndica tions:Type 2 diabetes mellitus with hemoglobin A1c goal of less than 8.0% ([facility]) Inject 100 units with meals and bedtime snack if blood glucose <200 and inject 120 units with meals and bedtime snack if blood glucose >=200. 90 mL 5 Active metFORMIN HCl 1000 MG Oral Tablet (Glucophage)Indica tions:Type 2 diabetes mellitus with hemoglobin A1c goal of less than 7.0% (HCC) Take 1 Tablet by mouth in the morning and 1 Tablet before bedtime. 180 Tablet 5 Active Metoprolol Succinate ER 100 MG Oral Tablet Extended Release 24 Hour (toPROL XL) Take 1 Tablet by mouth in the morning and 1 Tablet before bedtime. 180 Tablet 1 5 Active Montelukast Sodium 10 MG Oral Tablet (Singulair)Indicat ions:Chronic rhinitis Take 1 Tablet by mouth in the morning. 90 Tablet 1 5 Active OXcarbazepine 150 MG Oral Tablet (Trileptal)Indicat ions:Bipolar 2 disorder (HCC) Take 1 Tablet by mouth in the morning. 30 Tablet 1 5 Active Pantoprazole Sodium 40 MG Oral Tablet Delayed Release (Protonix)Indicati ons:Gastroesophage al reflux disease without esophagitis Take 1 Tablet by mouth daily. 90 Tablet 2 5 Active Tamsulosin HCl 0.4 MG Oral Capsule (Flomax) Take 1 Capsule by mouth in the morning. 90 Capsule 5 Active Torsemide 20 MG Oral Tablet (Demadex)Indicatio ns:Chronic diastolic heart failure (HCC) Take 2 Tablets by mouth in the morning. 180 Tablet 5 Active Sucralfate 1 GM Oral Tablet (Carafate)Indicati ons:Upset stomach One tab by mouth up to 4 times a day as needed for acid reflux or upset stomach 360 Tablet 5 Active Potassium Citrate ER 10 MEQ (1080 MG) Oral Tablet Extended Release (potassium citrate-10) Take 1 Tablet by mouth in the morning and 1 Tablet before bedtime. 180 Tablet 1 5 Active Prazosin HCl 1 MG Oral Capsule (Minipress)Indicat ions:Vivid dream Take 1 Capsule by mouth at bedtime. 30 Capsule 5 5 Active Cranberry Juice Extract 1000 MG Oral Capsule Take 1 Tablet by mouth in the morning. 90 Capsule 1 5 Active Loratadine 10 MG Oral Capsule Take 1 Capsule by mouth in the morning. 90 Capsule 1 5 Active Magnesium 400 MG Oral Capsule Take 1 Capsule by mouth in the morning. 90 Capsule 1 5 Active Glucosamine Chondroitin + D3 Oral Tablet Take 1 Tablet by mouth in the morning. 90 Tablet 1 5 Active B Complex-Folic Acid 500-5-200 MCG-MG-MCG Oral Tablet Take 1 Tablet by mouth in the morning. 90 Tablet 1 5 Active One-A-Day Womens Oral Tablet Take 1 Tablet by mouth at bedtime. 90 Tablet 1 5 Active Co Q 10 10 MG Oral Capsule Take 1 Capsule by mouth in the morning. 90 Capsule 1 5 Active documented as of this encounter (statuses as of 06/25/2024) Active Problems Problem Noted Date Diagnosed Date POLST (Physician Orders for Life-Sustaining Ibeth tment) 03/16/2024 Chronic kidney disease, stage 3a 09/14/2023 Overview: Per CKD protocol Assessment & Plan (06/22/2024 11:28 AM EDT): Orders: PHOSPHORUS; Future COMPREHENSIVE METABOLIC PANEL; Future Gastroparesis due to DM 05/06/2023 History of [...] COPD GOLD Classification Bipolar 2 disorder 07/01/2018 Assessment & Plan (06/22/2024 11:28 AM EDT): Orders: OXcarbazepine 150 MG Oral Tablet (Trileptal); Take 1 Tablet by mouth in the morning. Type 2 diabetes mellitus 07/01/2018 Type 2 diabetes mellitus wit h hemoglobin A1c goal of less than 8.0% 12/19/2013 Overview (07/31/2015): ICD-10 update of inactive term Dyslipidemia 04/08/2012 REENA on CPAP 03/02/2012 Overview (02/17/2023): CPAP 12 cwp 05/26/12 Nocturnal ox CPAP 6 cwp / RA -- low 82%, mean 94%, <89% 9 mins, DORIS 3.5 04/15/12 -- new CPAP at 6 cwp Dx 1993 AHP Cerebrovascular disease, arteriosclerotic, post- stroke 07/18/2008 Overview (07/20/2008): Modified per CVA protocol #8 documented as of this encounter (statuses as of 06/25/2024) Resolved Problems Problem Noted Date Diagnosed Date [...] colitis 12/09/2012 017 Genetic Sleep Disorder [facility] Other*[id number] 03/02/2012 11/01/2015 Tobacco use disorder 11/20/2011 014 Allergic rhinitis 11/20/2011 09/24/2016 Non-allergic rhinitis 11/20/20112016 MRSA cellulitis 11/10/2011 09/24/2016 COPD, moderate 06/11/2011 10/20/2019 Overview: Per COPD GOLD Classification Dermatitis 03/07/2011 09/24/2016 Overview (03/07/2011): Strongly favor Allergic Contact Dermatitis (Dermatitis Medicamentosa) Stop all current topicals. mometasone .1% ointment Intramuscular Kenalog ADVANCE DIRECTIVE INFORMATION 09/13/2004 12/09/2019 Overview (09/13/2004): information given to pt CVA 07/02/2004 07/20/2008 Overview (07/20/2008): Modified per CVA protocol #8 Asthma exacerbation in COPD 07/15/2002 04/08/2018 Other chronic sinusitis 07/15/200209/05 ADJ DISORDER W/DEPRES MOOD 07/15/2002 0 12/09/2019 DM, UNCONTROLLED, TYPE II Tobacco use disorder 012 Chronic sinusitis 09/24/2016 Allergic rhinitis 11/20/2011 NON ALLERGIC RHINITIS 2011 Sensorineural hearing loss, bilateral 09/24/2016 Presbyacusis 05/06/2022 documented as of this encounter (statuses as of 06/25/2024) Immunizations Name Administration Dates Next Due COVID-19 mRNA, LNP-s, No Pre serve, 2-Dose Series (Moderna) 01/14/2021,06/06/2020,05/09/2020 COVID-19, MRNA-LNP, 24-25, P R, 30MCG/0.3ML, IM, 12YRS AND ABOVE ([employer] US-Comirnaty) 12/17/2023 COVID-19, MRNA-LNP, PF, 30 M CG/0.3 mL, 12 YRS AND ABOVE, IM ([employer]-Comirnaty) 12/30/2022 COVID-19, mRNA, LNP-s, PF, B ooster, 100mcg/0.5mg (Moderna) 08/12/2021 Covid-19, Mrna, Lnp-s, Pf, B ivalent, 30 Mcg, IM, 12 yrs and above (Pfizer) 12/30/2021 H1N1 2009 Influenza, IM 02/23/2009 Pneumococcal Conjugate Vacc, 13 Valent (Prevnar) 07/23/2017 Pneumococcal Polysaccharide PPV23 (Pneumovax) 08/10/2018 RSV Vac., Recomb, Adjuvant, PF,0.5 Ml (Arexvy) 12/17/2023 Season Influenza, Quad, PF, Adjuvanted, 65+ Yrs, IM (FLUAD) 12/30/2022 Seasonal Influenza Vac., MDV , IM, 0.5 mL (Fluzone) 01/18/2014,01/27/2013,01/15/2012,03/06,01/18/2006 Seasonal Influenza Virus Vac cine, Unspecified Formulation 12/12/2021,12/31/2020,12/23/2019,01/04,01/15/2018,12/26/2016,12/06/19 17,01/16/2016,12/24/2015,01/04/2015,1 ,01/27/2013,01/15/2012,03/20,02/23/2009,01/18/2006, 5,02/22/2003,01/18/2002,02/22/2001 Seasonal Influenza, High Dos e, Trivalent, PF, IM (Fluzone HD) 01/14/2024 Seasonal Influenza, PF, 6 M & above, IM , (FluLaval or Fluzone) 12/23/2019,01/15/2018,12/26/2016 12/26/2017 Seasonal Influenza, Quadriva lent Hd (Fluzone Hd) 12/12/2021,12/31/2020 Seasonal Influenza, Quadriva lent, No Preserve, IM 12/24/2015,12/28/2014 12/29/2015 Seasonal Influenza, Trivalen t, Adjuvanted, 65+ YRS, PF, (Fluad) 01/14/2019 TDAP (age 10 and older)(Boostrix) 11/18/2010 TDAP, Age 7 and older, IM (Adacel) 03/16/2024, Varicella Zoster Vaccine (Adult) 01/01/2012 Zoster Vaccine Recombinant (Shingrix) 02/10/2019 ,10/12/2018 12/13/2018 documented as of this encounter Social History Tobacco Use Types Packs/Day Years Used Date Smoking Tobacco: Former Cigarettes 2 30 0 12/16/1982 - 12/16/2012 Passive Smoke Exposure: Current Smokeless Tobacco: Never Comments:started age 32, kyung t 2013 Alcohol Use Standard Drinks/Week Comments No 0 (1 standard drink = 0.6 oz pur e alcohol) PHQ-2 Answer Date Recorded PHQ Adult Total Score 13 06/22/2024 Hunger Vital Sign Answer Date Recorded Within the past 12 months, y ou worried that your food would run out before you got the money to buy more. Never true 07/31/19 24 Within the past 12 months, t he food you bought just didn't last and you didn't have money to get more. Never true 07/31/2023 Childcare Answer Date Recorded Do you feel overwhelmed with taking care of a child, family member or friend? No 07/31/2023 Does your family need help f inding childcare? (Household - for ages 0-17 years) Not on file 07/31/2023 Clothing Answer Date Recorded Have you been unable to get clothing when it was really needed? No 07/31/2023 Is your family able to get c lothes or diapers when needed? (Household - for ages 0-17 years) Not on file 07/31/2023 Personal Safety Answer Date Recorded Do you feel unsafe or have concerns for your saf ety? No 07/31/2023 Do you have concerns for you r family's safety? (Household - for ages 0-17 years) Not on file 07/31/2023 Utilities Answer Date Recorded Do you have trouble paying y our heating, water, or electric bill? No 07/31/2023 Is your family able to pay t he heat, water, or electric bill? (Household - for ages 0-17 years) Not on file 07/31/2023 Does your family have access to good internet? (Household - for ages 0-17 years) Not on file 07/31/2023 Employment Status Answer Date Recorded Are you unemployed or without regular income? No 07/31/2023 Does the household have a re gular source of income? (Household - for ages 0-17 years) Not on file 07/31/2023 Social Connections Answer Date Recorded How often do you feel lonely or isolated from th ose around you? Never 07/31/2023 Financial Resource Strain Answer Date R ecorded Do you have any trouble payi ng for your medications, or do you think you might in the future? No 07/31/2023 Does your family have troubl e paying for medicine? (Household - for ages 0-17 years) Not on file 07/31/2023 Transportation Needs Answer Date Record ed READ ONLY Do you have troubl e getting a ride to medical visits or work? Never True 07/31/2023 Does your family have a hard time getting a ride to doctors visits? (Household - for ages 0-17 years) Not on file 07/31/2023 Has lack of transportation k ept you from medical appointments, meetings, work, or from getting things needed for daily living? Check all that apply. (Adult - for ages 18 years and over) Not on file 07/31/2023 Do you (or your family) have trouble finding or paying for a ride (transportation)? (Household - for ages 0-17 years) Not on file 07/31/2023 Housing Stability Answer Date Recorded Do you currently live in a s helter or have no steady place to sleep at night? No 07/31/2023 READ ONLY Do you think you a re at risk of becoming homeless? No 07/31/2023 Does your family worry about paying for your home or becoming homeless? (Household - for ages 0-17 years) Not on file 0 07/31/2023 Are you homeless or worried that you might be in the future? (Adult - for ages 18 years and over) Not on file Are you (or your family) yeimy eless or worried that you might be in the future? (Household - for ages 0-17 years) Not on file Food Insecurity Answer Date Recorded Do you need food for this week? No 07/31/2023 Are you able to get enough f ood for your family? (Household - for ages 0-17 years) Not on file 07/31/2023 Does your family need food t his week? (Household - for ages 0-17 years) Not on file 07/31/2023 Do you always have enough fo od for your family? (Household - for ages 0-17 years) Not on file 07/31/2023 Food Insecurity Answer Date Recorded Within the past 12 months, y ou worried that your food would run out before you got the money to buy more. Never true 07/31/19 24 Within the past 12 months, t he food you bought just didn't last and you didn't have money to get more. Never true 07/31/2023 Do you need food for this week? 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 Not on file Not on file Not on file documented as of this encounter Plan of Treatment Upcoming Encounters Date Type Department Care Team (Late st Contact Info) Description 07/05/2024 2:00 PM EDT Office Visit Family [facility], Shiela Cab[address] [phone] Paula Pan PA-C [address] [place] [id number] 07/05/2024 2:40 PM EDT Office Visit Pharmacy, Shiela Ramirez [facility] [address] [place] [phone] Shiela [address] [place] [address] 09/22/2024 9:30 AM EDT Office Visit Family [facility], Shiela Caban [address] [phone] Sabine Mosley DO [address] [place] [phone] 10/18/2024 1:30 PM EDT Office Visit Cardiology, [facility] [address] [place] [phone] Danica Grider, ELAINA [address] [place] [phone] Health Maintenance Due Date Last Done Comments Fecal Occult Blood Test 1997 Sigmoidoscopy 1997 Adult Wellness Visit 2018 Colonoscopy 01/03/2020 01/02/2010 Diabetic Eye Exam 06/17/2023 06/16/2022, , 03/23/2020, Additional history exists Diabetic Foot Exam 09/23/2023 09/22/2022, 0 08/22/2021, 11/16/2020, Additional history exists DXA Scan 01/04/2024 01/03/2019, 05/11/2013, 06/12/2000 COVID-19 Vaccine (3 - Pfizer risk series) 01/14/2024 12/17/2023, 12/30/2022, 12/30/2021, Additional history exists Mammogram 03/26/2024 03/26/2023, 03/06, 02/11/2021, Additional history exists Cologuard 08/30/2024 08/30/2021, 08/05, 08/25/2021, Additional history exists Colorectal Cancer Screening 08/30/2024 GFR 12/23/2024 06/22/2024, 08/05, 05/13/2023, Additional history exists HbA1c 12/23/2024 06/22/2024, 01/04, 07/28/2023, Additional history exists Albumin/Creatinine Ratio 02/11/2025 024, 01/23/2024, 09/22/2022, Additional history exists DIG LEVEL FOR MEDICATION MONITORING YEARLY 04/22/2025 04/22/2024, 05/13/2023, 04/17/2023, Additional history exists B-12 06/22/2025 06/22/2024, 04/06, 05/19/2022, Additional history exists CKD HGB USE SMARTSET 41308 06/22/202506/22, 06/22/2024, 04/22/2024, Additional history exists CKD PHOS USE SMARTSET 38168 06/22/2025 06/22/2024, 0 05/13/2023 Depression Monitoring 06/22/2025 06/22/2024, 025 O2 ASSESSMENT COMPLETED IN PAST YEAR FOR COPD 06/22/2025 06/22/2024 DTap/Tdap Vaccines (4 - Td or Tdap) 03/16/2034 03/16/2024, 11/18/2010, 11/18/2010 Hepatitis C Screening Completed 09/12/2001 Pneumococcal Vaccine: 50+ Years Completed 08/10/2018, 07/23/2017, 01/18/2002 Zoster Vaccines Completed 02/10/2019, 12/2018, 01/01/2012 Alpha-1 Antitrypsin Completed 07/18/2021 Lung Cancer Screening Completed 09/10/2023 , 09/08/2022, 08/26/2021, Additional history exists Influenza Vaccine (FLU shot) Completed 01/2024, 12/30/2022, 12/12/2021, Additional history exists HPV (Gardasil) Vaccine Aged Out No lo nger eligible based on patient's age to complete this topic Hepatitis B Vaccine Aged Out No longe r eligible based on patient's age to complete this topic MENINGOCOCCAL (MENACTRA/MENVEO) Aged Out No longer eligible based on patient's age to complete this topic Meningitis B Vaccine (Bexsero/Trumemba) Aged Out No longer eligible based on patient's age to complete this topic documented as of this encounter Medical Devices Not on filedocumented as of this encounter Care Teams Net Developer Relationship Specialty Start Date End Date Paula Pan PA-C [address] [place] [phone] PCP - General Physician Commercial Loan Collection Officer 04/14/24 documented as of this encounter
--- OUTSIDE RECORDS SUMMARY | 2024-07-03 20:43 | External Medical Summary | Summary of Care ---
Author Name Unknown Organization [facility] Address [address] [place] [address] Phone [phone] Care Team Providers [employer] Mill Work Name Role Phone Paula Tyler PA-C Primary Care Provider [phone] Reason for Visit * Reason Onset Date Comments Medication Refill 06/22/2024 Encounter Details Date Type Department Care Team (Late st Contact Info) Description 06/22/2024 Refill [facility] [address] [phone] Paula Tyler PA-C [address] [facility] [place] [address] [address] Chronic diastolic heart failure (HCC); Upset stomach Allergies Active Allergy Reactions Criticality Noted Date Comments Adhesive Tape 11/04/2017 sensitivity Cephalosporins Unknown 09/08/2000 Clarithromycin Rash 09/08/2000 Clobetasol Unknown 02/17/2022 Sulfa Antibiotics High 09/08/2000 Unknown Other Reaction(s): "Sulfa Drugs = rash" Terconazole 09/09/2002 terazol - made her itchy documented as of this encounter (statuses as of 06/23/2024) Medications INSULIN SYRINGES (DISP) 1ML U-100 MISCIndications:DM type 2, goal A1c below 7 as directed BID 100 6 04/17/19 06 Active OMEGA 3-6-9 FATTY ACIDS PO CAPS 1 daily Active ONE-A-DAY WOMENS PO TABS 1 daily Active CRANBERRY JUICE EXTRACT 1000 MG PO CAPS 1 daily Active MUCINEX 600 MG PO TB12 1 DAILY if needed Active B COMPLEX-FOLIC ACID PO CAPS 1 daily Active CINNAMON 500 MG PO CAPS 2 tab twice a day Active EQ ARTHRITIS PAIN 650 MG PO TBCR 1-2 tabs daily Active Magnesium 400 MG Capsule Take 1 Capsule by mouth in the morning. 60 Cap 17 07/12/19 15 Active clobetasol propionate (TEMOVATE) 0.05 % cream As needed 0 07/06/19 15 Active Insulin Syringe 31G X 5/16" 0.5 ML MISCIndications:DM type 2, not at goal (HCC) Use with insulin to inject 6 times per day as directed DX 250.00 6 Box 2 08/04/19 15 Active levalbuterol (XOPENEX HFA) 45 MCG/ACT inhaler 07/17/19 17 Active Bisacodyl 5 MG Oral Tablet Delayed Release Take 1 Tablet by mouth daily as needed for Constipation. Active ONETOUCH ULTRASOFT LANCETS MISC Use as directed 4 times a day as needed (fluctuations in blood glucose). Use up to four times a day as directed 3 Box Dosing Unit 3 02/13/20 18 Active Glucose Blood (ONETOUCH VERIO) STRP Use up to 4 times a day E11.9 300 Strip 3 02/13/20 18 Active Loratadine 10 MG Cap Take 1 Capsule by mouth in the morning. Active Glucosamine-Chondr [id number]-Y9 TABS Take 1 Tab by mouth daily. Active Lactobacillus (PROBIOTIC ACIDOPHILUS) TABS Take by mouth. Active Biotin 1 MG Oral Capsule Take 1 Capsule by mouth in the morning. Active Co Q 10 10 MG Oral Capsule Take 1 Capsule by mouth daily. Active Triamcinolone Acetonide 55 MCG/ACT Nasal Aerosol Administer into nostril 2 Sprays in the morning. 16.9 mL 06/28/19 22 Active CPAP every night at bedtime. Active Nebulizer/Tubing/M outhpiece Kit Please provide mask 1 Kit 02/11/20 22 Active Saccharomyces boulardii 250 MG Oral Capsule (Florastor) Take 1 Capsule by mouth in the morning and 1 Capsule before bedtime. 20 Capsule 05/06/19 23 Active Levalbuterol HCl 0.63 MG/3ML Inhalation Nebulization Solution (Xopenex) Inhale 3 mL via nebulizer every 4 hours as needed for Wheezing. 1080 mL 5 05/15/19 23 Active OneTouch Verio In Vitro Strip (Glucose Blood) Use up to 4 times a day E11.9 100 Strip 11 11/18/19 23 Active OneTouch Verio w/Device Kit Use up to 3 times a day E11.9 1 Kit 11/21/19 23 Active Albuterol Sulfate HFA 108 (90 Base) MCG/ACT Inhalation Aerosol SolutionIndication s:COPD, group B, by GOLD 2017 classification ([facility]) Inhale 2 Puffs by mouth every 6 hours as needed for Cough, Shortness of Breath or Wheezing. 18 g 2 07/04/19 24 Active Acetaminophen 325 MG Oral Capsule Take by mouth. Active Nystatin 619011 UNIT/GM External Powder (Nystop)Indication s:Melissa rash of groin APPLY 0.5 GRAM TO THE GROIN TWICE DAILY IN THE MORNING AND THE EVENING. 180 g 1 12/01/19 24 Active Nystatin-Triamcino lone 301247-5.1 UNIT/GM-% External Cream (Mycolog)Indicatio ns:Melissa rash of groin APPLY TOPICALLY TO THE AFFECTED AREA TWICE DAILY FOR 14 DAYS. 60 g 1 12/01/19 24 Active Prazosin HCl 1 MG Oral Capsule (Minipress)Indicat ions:Vivid dream Take 1 Capsule by mouth at bedtime. 30 Capsule 5 02/03/20 24 Active Ipratropium [place] 0.03 % Nasal Solution (Atrovent) ADMINISTER 2 SPRAYS INTO NOSTRIL IN THE MORNING AND 2 SPRAYS BEFORE BEDTIME. 90 mL 4 02/05/20 24 Active traMADol HCl 50 MG Oral Tablet (Ultram)Indication s:Hip pain, left Take 1 Tablet by mouth at bedtime as needed for Pain, Severe. 15 Tablet 03/16/20 24 Active Triamcinolone Acetonide 0.1 % External Cream (Aristocort)Indica tions:Hand dermatitis Apply topically to affected area 2 times a day. To affected area. 80 g 5 03/29/20 24 Active Digoxin 125 MCG Oral Tablet (Lanoxin) TAKE 1 TABLET BY MOUTH EVERY DAY IN THE MORNING 90 Tablet 04/07/19 25 Active Eliquis 5 MG Oral Tablet (Apixaban)Indicati ons:PAF (paroxysmal atrial fibrillation) ([facility]),Cerebrovascu lar disease, arteriosclerotic, post-stroke TAKE 1 TABLET BY MOUTH TWICE A DAY 180 Tablet 04/12/19 25 Active Pregabalin 50 MG Oral Capsule (Lyrica)Indication s:Primary osteoarthritis of both hips,Hip pain, right,Degeneration 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 60 Capsule 1 05/26/19 25 Active Trelegy Ellipta 100-62.5-25 MCG/ACT Aerosol Powder Breath ActivatedIndicatio ns:COPD, group B, by GOLD 2017 classification ([facility]) INHALE 1 PUFF BY MOUTH IN THE MORNING 180 Each 3 05/29/19 25 Active Doxycycline Hyclate 100 MG Oral CapsuleIndications :Pneumonia of right lower lobe due to infectious organism Take 1 Capsule by mouth in the morning and 1 Capsule before bedtime. Do all this for 10 days. Until gone.. 20 Capsule 06/23/19 25 025 Active Tamsulosin HCl 0.4 MG Oral Capsule (Flomax) Take 1 Capsule by mouth in the morning. 90 Capsule 06/24/19 25 Active Torsemide 20 MG Oral Tablet (Demadex)Indicatio ns:Chronic diastolic heart failure ([facility]) Take 2 Tablets by mouth in the morning. 180 Tablet 06/24/19 25 Active Sucralfate 1 GM Oral Tablet (Carafate)Indicati ons:Upset stomach One tab by mouth up to 4 times a day as needed for acid reflux or upset stomach 360 Tablet 06/24/19 25 Active BD Pen Needle Isamar 2nd Gen 32G X 4 MMIndications:Type 2 diabetes mellitus with hemoglobin A1c goal of less than 7.0% ([facility]) Use to inject insulin four times daily E11.9 200 Each 3 09/08/19 24 025 Discontin ued(Refil l) Tamsulosin HCl 0.4 MG Oral Capsule (Flomax) Take 1 Capsule by mouth in the morning. 90 Capsule 3 09/21/19 24 025 Discontin ued(Refil l) Diclofenac Sodium 1 % External Gel (Voltaren) Apply topically to affected area 2 times a day. Apply to painful joints 100 g 3 12/11/19 24 025 Discontin ued(Refil l) HumuLIN R U-500 KwikPen 500 UNIT/ML Solution Pen-injectorIndica tions:Type 2 diabetes mellitus with hemoglobin A1c goal of less than 8.0% (HCC) Inject 100 units with meals and bedtime snack if blood glucose <200 and inject 120 units with meals and bedtime snack if blood glucose >=200. 90 mL 5 01/14/20 24 025 Discontin ued(Refil l) Potassium Citrate ER 10 MEQ (1080 MG) Oral Tablet Extended Release (potassium citrate-10) Take 1 Tablet by mouth in the morning and 1 Tablet before bedtime. 180 Tablet 3 01/20/20 24 025 Discontin ued(Refil l) Torsemide 20 MG Oral Tablet (Demadex)Indicatio ns:Chronic diastolic heart failure (HCC) Take 2 Tablets by mouth in the morning. 180 Tablet 1 03/16/20 24 025 Discontin ued(Refil l) Atorvastatin Calcium 40 MG Oral Tablet (Lipitor)Indicatio ns:Dyslipidemia, goal LDL below 70 TAKE 1 TABLET BY MOUTH EVERY DAY 90 Tablet 3 05/05/19 25 025 Discontin ued(Refil l) Pantoprazole Sodium 40 MG Oral Tablet Delayed Release (Protonix)Indicati ons:Gastroesophage al reflux disease without esophagitis TAKE 1 TABLET BY MOUTH EVERY DAY 90 Tablet 3 05/05/19 25 025 Discontin ued(Refil l) Metoprolol Succinate ER 100 MG Oral Tablet Extended Release 24 Hour (toPROL XL) TAKE 1 TABLET BY MOUTH IN THE MORNING AND BEFORE BEDTIME 180 Tablet 2 05/26/19 25 025 Discontin ued(Refil l) Famotidine 20 MG Oral Tablet (Pepcid) TAKE 1 TABLET BY MOUTH EVERY DAY IN THE MORNING 90 Tablet 1 05/26/19 25 025 Discontin ued(Refil l) Montelukast Sodium 10 MG Oral Tablet (Singulair)Indicat ions:Chronic rhinitis TAKE 1 TABLET BY MOUTH EVERY DAY IN THE MORNING 90 Tablet 2 05/26/19 25 025 Discontin ued(Refil l) metFORMIN HCl 1000 MG Oral Tablet (Glucophage)Indica tions:Type 2 diabetes mellitus with hemoglobin A1c goal of less than 7.0% (HCC) Take 1 Tablet by mouth in the morning and 1 Tablet before bedtime. 180 Tablet 1 06/01/19 25 025 Discontin ued(Refil l) Sucralfate 1 GM Oral Tablet (Carafate)Indicati ons:Upset stomach One tab by mouth up to 4 times a day as needed for acid reflux or upset stomach 360 Tablet 06/17/19 25 025 Discontin ued(Refil l) OXcarbazepine 150 MG Oral Tablet (Trileptal)Indicat ions:Bipolar 2 disorder (HCC) Take 1 Tablet by mouth in the morning. 30 Tablet 1 06/23/19 25 025 Discontin ued(Refil l) documented as of this encounter (statuses as of 06/23/2024) Active Problems Problem Noted Date Diagnosed Date [...] as of this encounter (statuses as of 06/23/2024) Resolved Problems Problem Noted Date Diagnosed Date [...] colitis 12/09/2012 017 Genetic Sleep Disorder Resea [facility] Other*[id number] 03/02/2012 11/01/2015 Tobacco use disorder 11/20/2011 014 [...] as of this encounter (statuses as of 06/23/2024) Immunizations Name Administration Dates Next Due COVID-19 mRNA, LNP-s, No Pre serve, 2-Dose Series (Moderna) 01/14/2021,06/06/2020,05/09/2020 COVID-19, MRNA-LNP, 24-25, P R, 30MCG/0.3ML, IM, 12YRS AND ABOVE ([employer]) 12/17/2023 COVID-19, MRNA-LNP, PF, 30 M CG/0.3 mL, 12 YRS AND ABOVE, IM ([employer]cub[employer]) 12/30/2022 COVID-19, mRNA, LNP-s, PF, B ooster, [...] encounter Miscellaneous Notes * Telephone Encounter - Chris Olmedo RP - 06/23/2024 10:37 AM EDTSigned Prescriptions: Disp Refills Tamsulosin HCl 0.4 MG Oral Capsule (Flomax)90 Cap*0 Sig: Take 1 Capsule by mouth in the morning.Authorizing Provider: PAULA TYLER AOrdering User: CHRIS OLMEDO Torsemide 20 MG Oral Tablet (Demadex) 180 Ta*0 Sig: Take 2 Tablets by mouth in the morning.Authorizing Provider: PAULA TYLER User: CHRIS OLMEDO Sucralfate 1 GM Oral Tablet (Carafate)360 Ta*0 Sig: One tab by mouth up to 4 times a day as needed for acid reflux or upset stomachAuthorizing Provider: PAULA TYLER User: CHRIS OLMEDO * Telephone Encounter - Chris Olmedo RPh - 06/23/2024 10:37 AM EDT Rerouted remaining refills to new pharmacy as requested. ThanksChris PharmD Clinical Pharmacist [facility] [phone] 06/23/2024, 10:37 AM * Telephone Encounter - Bianka Daniels PHARM Tech - 06/22/2024 2:52 PM EDT Refills needed for pill packs Did you pend patient's preferred pharmacy and medication before forwarding?yes Pharmacy: [facility] Pending Prescriptions: Disp Refills Tamsulosin HCl 0.4 MG Oral Capsule (Floma*90 Cap*3 Sig: Take 1 Capsule by mouth in the morning. Torsemide 20 MG Oral Tablet (Demadex) 180 Ta*1 Sig: Take 2 Tablets by mouth in the morning. Sucralfate 1 GM Oral Tablet (Carafate) 360 Ta*0 Sig: One tab by mouth up to 4 times a day as needed for acid reflux or upset stomach Last Visit: 06/22/2024 (in office), Visit date not found (telemedicine) Next Visit: 07/05/2024 If no future appointments scheduled, and last appointment is greater than a year ago, please schedule patient for a follow-up appointment Last date the medication was ordered: 06/16/24-09/21/23-03/16/24 Is this request for a controlled substance?No Urine Drug Screen:No results found. However, due to the size of the patient record, not all encounters were searched. Please check Results Review for a complete set of results. Patient Phone Numbers Labs: Lab Results Component Value Date/Time CREAT 1.1 (H) 08/27/2023 11:57 AM CREAT 0.8 01/24/2020 03:55 PM POTASSIUM 3.7 08/27/2023 11:57 AM POTASSIUM 4.3 01/24/2020 03:55 PM TSH 1.77 07/03/2020 04:30 PM TSH 1.660 03/15/2018 12:00 AM TSH 1.65 03/20/2017 12:47 PM LDL 27 02/12/2024 11:04 AM LDL 38 02/12/2024 11:04 AM LDL 36 10/13/2019 12:01 PM LDL NOT APPLICABLE 10/13/2019 12:01 PM LDLCALC 43 10/04/2015 12:00 AM ALT 32 04/29/2021 09:21 AM ALT 28 03/11/2018 11:14 AM HGBA1C 7.7 (H) 01/14/2024 09:40 AM HGBA1C 7.4 (H) 01/24/2020 03:55 PM documented in this encounter Plan of Treatment Upcoming Encounters Date Type Department Care Team (Late st Contact Info) Description 07/05/2024 2:00 PM EDT Office Visit Family Practice, Shiela Caban [address] [phone] Paula Tyler PA-C [address] [phone] 07/05/2024 2:40 PM EDT Office Visit Pharmacy, Shiela Ramirez [address] [phone] [facility] [address] [facility] [address] [place] [phone] 09/22/2024 9:30 AM EDT Office Visit Family Practice, Shiela [address]rey Caban [address] [phone] Sabine Mosley DO [address] [place] [address] 10/18/2024 1:30 PM EDT Office Visit Cardiology, [facility] [address] [place] [phone] Danica Grider CRNP [address] [phone] Health Maintenance Due Date Last Done Comments Fecal Occult Blood Test 1997 Sigmoidoscopy 1997 Adult Wellness Visit 2018 Colonoscopy 01/03/2020 01/02/2010 Diabetic Eye Exam 06/17/2023 06/16/2022, , 03/23/2020, Additional history exists Diabetic Foot Exam 09/23/2023 09/22/2022, 0 08/22/2021, 11/16/2020, Additional history exists DXA Scan 01/04/2024 01/03/2019, 05/0 11/2013, 06/12/2000 COVID-19 Vaccine (3 - Pfizer risk [...] Additional history exists CKD HGB USE SMARTSET 43678 06/22/202506/22, 06/22/2024, 04/22/2024, Additional history exists CKD PHOS USE SMARTSET 26099 06/22/2025 06/22/2024, 0 05/13/2023 Depression Monitoring 06/22/2025 [...] as of this encounter Visit Diagnoses Diagnosis Bipolar 2 disorder (HCC)- Primary Other bipolar disorders Screening for depression Type 2 diabetes mellitus with hemoglobin A1c goal of less than 7.0% (HCC) Chronic kidney disease, stage 3a (HCC) Fever, unspecified fever cause SOB (shortness of breath) Shortness of breath Cough, unspecified type Pneumonia of right lower lobe due to infectious organism Chronic diastolic heart failure (HCC) Chronic diastolic heart failure Upset stomach Dyspepsia and other specified disorders of function of stomach documented in this encounter Care Teams Mill Work Relationship Specialty Start Date End Date Paula Tyler PA-C [address] [address] PCP - General Physician Retail Account Manager 04/14/24 documented as of this encounter
--- OUTSIDE RECORDS SUMMARY | 2024-07-03 20:43 | External Medical Summary | Summary of Care ---
Author Name Unknown Organization [facility] Address [address] [place] [address] Phone [phone] Care Team Providers Care Flask Cleaner Name Role Phone Paula Tyler PA-C Primary Care Provider [phone] Reason for Visit * Reason Onset Date Comments Medication Refill 06/22/2024 Encounter Details Date Type Department Care Team (Late st Contact Info) Description 06/22/2024 Refill [facility] [address] [facility] [place] [address] Paula Tyler PA-C [address] [facility] [place], [place] [id number] Dyslipidemia, goal LDL below 70; Type 2 diabetes mellitus with hemoglobin A1c goal of less than 7.0% ([facility]); Type 2 diabetes mellitus with hemoglobin A1c goal of less than 8.0% ([facility]); Chronic rhinitis; Bipolar 2 disorder ([facility]); Gastroesophageal reflux disease without esophagitis; Vivid dream; Primary osteoarthritis of both hips; Hip pain, right; Degeneration of intervertebral disc of lumbar region with discogenic back pain; Melissa rash of groin Allergies Active Allergy Reactions Criticality Noted Date Comments Adhesive Tape 11/04/2017 sensitivity Cephalosporins Unknown 09/08/2000 Clarithromycin Rash 09/08/2000 Clobetasol Unknown 02/17/2022 Sulfa Antibiotics High 09/08/2000 Unknown Other Reaction(s): "Sulfa Drugs = rash" Terconazole 09/09/2002 terazol - made her itchy documented as of this encounter (statuses as of 06/23/2024) Medications INSULIN SYRINGES (DISP) 1ML U-100 MISCIndications:D M type 2, goal A1c below 7 as directed BID 100 6 006 Active OMEGA 3-6-9 FATTY ACIDS PO CAPS 1 daily Active MUCINEX 600 MG PO TB12 1 DAILY if needed Active CINNAMON 500 MG PO CAPS 2 tab twice a day Active EQ ARTHRITIS PAIN 650 MG PO TBCR 1-2 tabs daily Active clobetasol propionate (TEMOVATE) 0.05 % cream As needed 0 015 Active Insulin Syringe 31G X 5/16" 0.5 ML MISCIndications:D M type 2, not at goal (HCC) Use with insulin to inject 6 times per day as directed DX 250.00 6 Box 2 015 Active levalbuterol (XOPENEX HFA) 45 MCG/ACT inhaler 017 Active Bisacodyl 5 MG Oral Tablet Delayed Release Take 1 Tablet by mouth daily as needed for Constipation. Active ONETOUCH ULTRASOFT LANCETS MISC Use as directed 4 times a day as needed (fluctuations in blood glucose). Use up to four times a day as directed 3 Box Dosing Unit 3 018 Active Glucose Blood (ONETOUCH VERIO) STRP Use up to 4 times a day E11.9 300 Strip 3 018 Active Lactobacillus (PROBIOTIC ACIDOPHILUS) TABS Take by mouth. Active Biotin 1 MG Oral Capsule Take 1 Capsule by mouth in the morning. Active Triamcinolone Acetonide 55 MCG/ACT Nasal Aerosol Administer into nostril 2 Sprays in the morning. 16.9 mL 022 Active CPAP every night at bedtime. Active Nebulizer/Tubing/ Mouthpiece Kit Please provide mask 1 Kit 022 Active Saccharomyces boulardii 250 MG Oral Capsule (Florastor) Take 1 Capsule by mouth in the morning and 1 Capsule before bedtime. 20 Capsule 023 Active Levalbuterol HCl 0.63 MG/3ML Inhalation Nebulization Solution (Xopenex) Inhale 3 mL via nebulizer every 4 hours as needed for Wheezing. 1080 mL 5 023 Active OneTouch Verio In Vitro Strip (Glucose Blood) Use up to 4 times a day E11.9 100 Strip 11 023 Active OneTouch Verio w/Device Kit Use up to 3 times a day E11.9 1 Kit 023 Active Albuterol Sulfate HFA 108 (90 Base) MCG/ACT Inhalation Aerosol SolutionIndicatio ns:COPD, group B, by GOLD 2017 classification ([facility]) Inhale 2 Puffs by mouth every 6 hours as needed for Cough, Shortness of Breath or Wheezing. 18 g 2 024 Active Acetaminophen 325 MG Oral Capsule Take by mouth. Active Nystatin 492782 UNIT/GM External Powder (Nystop)Indicatio ns:Melissa rash of groin APPLY 0.5 GRAM TO THE GROIN TWICE DAILY IN THE MORNING AND THE EVENING. 180 g 1 024 Active Nystatin-Triamcin olone 395127-7.1 UNIT/GM-% External Cream (Mycolog)Indicati ons:Melissa rash of groin APPLY TOPICALLY TO THE AFFECTED AREA TWICE DAILY FOR 14 DAYS. 60 g 1 024 Active Ipratropium [place] 0.03 % Nasal Solution (Atrovent) ADMINISTER 2 SPRAYS INTO NOSTRIL IN THE MORNING AND 2 SPRAYS BEFORE BEDTIME. 90 mL 4 024 Active traMADol HCl 50 MG Oral Tablet (Ultram)Indicatio ns:Hip pain, left Take 1 Tablet by mouth at bedtime as needed for Pain, Severe. 15 Tablet 024 Active Triamcinolone Acetonide 0.1 % External Cream (Aristocort)Indic ations:Hand dermatitis Apply topically to affected area 2 times a day. To affected area. 80 g 5 024 Active Digoxin 125 MCG Oral Tablet (Lanoxin) TAKE 1 TABLET BY MOUTH EVERY DAY IN THE MORNING 90 Tablet 025 Active Eliquis 5 MG Oral Tablet (Apixaban)Indicat ions:PAF (paroxysmal atrial fibrillation) ([facility]),Cerebrovasc ular disease, arteriosclerotic, post-stroke TAKE 1 TABLET BY MOUTH TWICE A DAY 180 Tablet 025 Active Pregabalin 50 MG Oral Capsule (Lyrica)Indicatio ns:Primary osteoarthritis of both hips,Hip pain, right,Degeneratio n 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 60 Capsule 1 Active Trelegy Ellipta 100-62.5-25 MCG/ACT Aerosol Powder Breath ActivatedIndicati ons:COPD, group B, by GOLD 2017 classification ([facility]) INHALE 1 PUFF BY MOUTH IN THE MORNING 180 Each 3 Active Doxycycline Hyclate 100 MG Oral CapsuleIndication s:Pneumonia of right lower lobe due to infectious organism Take 1 Capsule by mouth in the morning and 1 Capsule before bedtime. Do all this for 10 days. Until gone.. 20 Capsule 025 2024 Active Atorvastatin Calcium 40 MG Oral Tablet (Lipitor)Indicati ons:Dyslipidemia, goal LDL below 70 Take 1 Tablet by mouth in the morning. 90 Tablet 2 Active BD Pen Needle Isamar 2nd Gen 32G X 4 MMIndications:Typ e 2 diabetes mellitus with hemoglobin A1c goal of less than 7.0% ([facility]) Use to inject insulin four times daily E11.9 200 Each 1 Active Diclofenac Sodium 1 % External Gel (Voltaren) Apply topically to affected area 2 times a day. Apply to painful joints 100 g 2 Active Famotidine 20 MG Oral Tablet (Pepcid) Take 1 Tablet by mouth in the morning. 90 Tablet Active HumuLIN R U-500 KwikPen 500 UNIT/ML Solution Pen-injectorIndic ations:Type 2 diabetes mellitus with hemoglobin A1c goal of less than 8.0% ([facility]) Inject 100 units with meals and bedtime snack if blood glucose <200 and inject 120 units with meals and bedtime snack if blood glucose >=200. 90 mL Active metFORMIN HCl 1000 MG Oral Tablet (Glucophage)Indic ations:Type 2 diabetes mellitus with hemoglobin A1c goal of less than 7.0% ([facility]) Take 1 Tablet by mouth in the morning and 1 Tablet before bedtime. 180 Tablet Active Metoprolol Succinate ER 100 MG Oral Tablet Extended Release 24 Hour (toPROL XL) Take 1 Tablet by mouth in the morning and 1 Tablet before bedtime. 180 Tablet 1 025 Active Montelukast Sodium 10 MG Oral Tablet (Singulair)Indica tions:Chronic rhinitis Take 1 Tablet by mouth in the morning. 90 Tablet 1 025 Active OXcarbazepine 150 MG Oral Tablet (Trileptal)Indica tions:Bipolar 2 disorder (HCC) Take 1 Tablet by mouth in the morning. 30 Tablet 1 025 Active Pantoprazole Sodium 40 MG Oral Tablet Delayed Release (Protonix)Indicat ions:Gastroesopha geal reflux disease without esophagitis Take 1 Tablet by mouth daily. 90 Tablet 2 025 Active Prazosin HCl 1 MG Oral Capsule (Minipress)Indica tions:Vivid dream Take 1 Capsule by mouth at bedtime. 30 Capsule 5 025 Active ONE-A-DAY WOMENS PO TABS 1 daily 2024 Discontinued(R efill) CRANBERRY JUICE EXTRACT 1000 MG PO CAPS 1 daily 2024 Discontinued(R efill) B COMPLEX-FOLIC ACID PO CAPS 1 daily 2024 Discontinued Magnesium 400 MG Capsule Take 1 Capsule by mouth in the morning. 60 Cap 17 015 2024 Discontinued(R efill) Loratadine 10 MG Cap Take 1 Capsule by mouth in the morning. 2024 Discontinued(R efill) Glucosamine-Chond [id number] TABS Take 1 Tab by mouth daily. 2024 Discontinued(M edication/Dose Changed) Co Q 10 10 MG Oral Capsule Take 1 Capsule by mouth daily. 2024 Discontinued(R efill) BD Pen Needle Isamar 2nd Gen 32G X 4 MMIndications:Typ e 2 diabetes mellitus with hemoglobin A1c goal of less than 7.0% (HCC) Use to inject insulin four times daily E11.9 200 Each 3 024 2024 Discontinued(R efill) Tamsulosin HCl 0.4 MG Oral Capsule (Flomax) Take 1 Capsule by mouth in the morning. 90 Capsule 3 024 2024 Discontinued(R efill) Diclofenac Sodium 1 % External Gel (Voltaren) Apply topically to affected area 2 times a day. Apply to painful joints 100 g 3 024 2024 Discontinued(R efill) HumuLIN R U-500 KwikPen 500 UNIT/ML Solution Pen-injectorIndic ations:Type 2 diabetes mellitus with hemoglobin A1c goal of less than 8.0% (HCC) Inject 100 units with meals and bedtime snack if blood glucose <200 and inject 120 units with meals and bedtime snack if blood glucose >=200. 90 mL 5 024 2024 Discontinued(R efill) Potassium Citrate ER 10 MEQ (1080 MG) Oral Tablet Extended Release (potassium citrate-10) Take 1 Tablet by mouth in the morning and 1 Tablet before bedtime. 180 Tablet 3 024 2024 Discontinued(R efill) Prazosin HCl 1 MG Oral Capsule (Minipress)Indica tions:Vivid dream Take 1 Capsule by mouth at bedtime. 30 Capsule 5 024 2024 Discontinued(R efill) Torsemide 20 MG Oral Tablet (Demadex)Indicati ons:Chronic diastolic heart failure (HCC) Take 2 Tablets by mouth in the morning. 180 Tablet 1 024 2024 Discontinued(R efill) Atorvastatin Calcium 40 MG Oral Tablet (Lipitor)Indicati ons:Dyslipidemia, goal LDL below 70 TAKE 1 TABLET BY MOUTH EVERY DAY 90 Tablet 3 025 2024 Discontinued(R efill) Pantoprazole Sodium 40 MG Oral Tablet Delayed Release (Protonix)Indicat ions:Gastroesopha geal reflux disease without esophagitis TAKE 1 TABLET BY MOUTH EVERY DAY 90 Tablet 3 025 2024 Discontinued(R efill) Metoprolol Succinate ER 100 MG Oral Tablet Extended Release 24 Hour (toPROL XL) TAKE 1 TABLET BY MOUTH IN THE MORNING AND BEFORE BEDTIME 180 Tablet 2 2024 Discontinued(R efill) Famotidine 20 MG Oral Tablet (Pepcid) TAKE 1 TABLET BY MOUTH EVERY DAY IN THE MORNING 90 Tablet 1 025 2024 Discontinued(R efill) Montelukast Sodium 10 MG Oral Tablet (Singulair)Indica tions:Chronic rhinitis TAKE 1 TABLET BY MOUTH EVERY DAY IN THE MORNING 90 Tablet 2 025 2024 Discontinued(R efill) metFORMIN HCl 1000 MG Oral Tablet (Glucophage)Indic ations:Type 2 diabetes mellitus with hemoglobin A1c goal of less than 7.0% (HCC) Take 1 Tablet by mouth in the morning and 1 Tablet before bedtime. 180 Tablet 1 025 2024 Discontinued(R efill) Sucralfate 1 GM Oral Tablet (Carafate)Indicat ions:Upset stomach One tab by mouth up to 4 times a day as needed for acid reflux or upset stomach 360 Tablet 025 2024 Discontinued(R efill) OXcarbazepine 150 MG Oral Tablet (Trileptal)Indica tions:Bipolar 2 disorder (HCC) Take 1 Tablet by mouth in the morning. 30 Tablet 1 025 2024 Discontinued(R efill) documented as of this encounter (statuses as [...] colitis 12/09/2012 017 Genetic Sleep Disorder [facility] Other*[id number] 03/02/2012 11/01/2015 Tobacco use disorder 11/20/2011 014 [...] P R, 30MCG/0.3ML, IM, 12YRS AND ABOVE ([employer]) 12/17/2023 COVID-19, MRNA-LNP, PF, 30 M CG/0.3 mL, 12 YRS AND ABOVE, IM ([employer]) 12/30/2022 COVID-19, mRNA, LNP-s, PF, B ooster, 100mcg/0.5mg ([employer]) 08/12/2021 Covid-19, Mrna, Lnp-s, Pf, B ivalent, 30 Mcg, IM, 12 yrs and above ([employer]) 12/30/2021 H1N1 2009 Influenza, IM 02/23/2009 Pneumococcal [...] No 07/31/2023 Does the household have a [facility] source of income? (Household - for ages [...] encounter Miscellaneous Notes * Telephone Encounter - Paula Tyler PA-C - 06/23/2024 2:19 PM EDTSigned Prescriptions: Disp Refills Atorvastatin Calcium 40 MG Oral Tablet (Li*90 Tab*2 Sig: Take 1 Tablet by mouth in the morning.Authorizing Provider: PAULA TYLER User: NA CALVILLO BD Pen Needle Isamar 2nd Gen 32G X 4 MM 200 Ea*1 Sig: Use to inject insulin four times daily E11.9 Authorizing Provider: PAULA TYLER User: NA CALVILLO Diclofenac Sodium 1 % External Gel (Voltar*100 g 2 Sig: Apply topically to affected area 2 times a day. Apply to painful jointsAuthorizing Provider: NORMA MOSLEY User: NA CALVILLO Famotidine 20 MG Oral T ablet (Pepcid) 90 Tab*0 Sig: Take 1 Tablet by mouth in the morning.Authorizing Provider: PAULA TYLER User: NA CALVILLO HumuLIN R U-500 KwikPen 500 UNIT/ML Soluti*90 mL 0 Sig: Inject 100units with meals and bedtime snack if blood glucose <200 and inject 120 units with meals and bedtime snack if blood glucose >=200.Authorizing Provider: NORMA MOSLEY User: NA CALVILLO metFORMIN HCl 1000 MG Oral Tablet (Glucoph*180 Ta*0 Sig: Take 1 Tablet by mouth in the morning and 1 Tablet before bedtime.Authorizing Provider: PAULA TYLER User: NA CALVILLO Metoprolol Succinate ER 100 MG Oral Tablet*180 Ta*1 Sig: Take 1 Tablet by mouth in the morning and 1 Tablet before bedtime.Authorizing Provider: PAULA TYLER User: NA CALVILLO MontelukastSodium 10 MG Oral Tablet (Sing*90 Tab*1 Sig: Take 1 Tablet by mouth in the morning.Authorizing Provi errol: PAULA TYLER User: NA CALVILLO OXcarbazepine 150 MG Oral Tablet (Trilepta*30 Tab*1 Sig: Take 1 Tablet by mouth in the morning.Authorizing Provider: PAULA TYLER User: NA CALVILLO Pantoprazole Sodium 40 MG Oral Tablet Dori*90 Tab*2 Sig: Take 1 Tablet by mouth daily.Authorizing Provider: [facility] User: NA CALVILLO Prazosin HCl 1 MG Oral Capsule (Minipress) 30 Cap*5 Sig: Take 1 Capsule by mouth at bedtime.Authorizing Provider: PAULA TYLER * Telephone Encounter - Na Calvillo [facility] - 06/23/2024 10:52 AM EDTPending Prescriptions: Disp Refills Prazosin HCl 1 MG Oral Capsule (Minipress) 30 Cap*5 Sig: Take 1 Capsule by mouth at bedtime. Signed Prescriptions: Disp Refills Atorvastatin Calcium 40 MG Oral Tablet (Li*90 Tab*2 Sig: Take 1 Tablet by mouth in the morning. Authorizing Provider: PAULA TYLER Ordering User: NA CALVILLO BD Pen Nee dle Isamar 2nd Gen 32G X 4 MM 200 Ea*1 Sig: Use to inject insulin four times daily E11.9 Authorizing Provider: PAULA TYLER Ordering User: NA CALVILLO Diclofenac Sodium 1 % External Gel (Voltar*100 g 2 Sig: Apply topically to affected area 2 times a day. Apply to painful joints Authorizing Provider: NORMA MOSLEY Ordering User: NA CALVILLO Famotidine 20 MG O ral Tablet (Pepcid) 90 Tab*0 Sig: Take 1 Tablet by mouth in the morning. Authorizing Provider: PAULA TYLER Ordering User: NA CALVILLO HumuLIN R U-500 KwikPen 500 UNIT/ML Soluti*90 mL 0 Sig: Inject 100 units with meals and bedtime snack if blood glucose <200 and inject 120 units with meals and bedtime snack if blood glucose >=200. Authorizing Provider: NORMA LAZO Ordering User: NA CALVILLO metFORMIN HCl 1000 MG Oral Tablet (Glucoph*180 Ta*0 Sig: Take 1 Tablet by mouth in the morning and 1 Tablet before bedtime. Authorizing Provider: PAULA TYLER Ordering User: NA CALVILLO Metoprolol Succinate ER 100 MG Oral Tablet*180 Ta*1 Sig: Take 1 Tablet by mouth in the morning and 1 Tablet before bedtime. Bridget jaime Provider: PAULA TYLER Ordering User: NA CALVILLO Montelukast Sodium 10 MG Oral Tablet (Sing*90 Tab*1 Sig: Take 1 Tablet by mouth in the morning. Authorizing Provider: PAULA TYLER Ordering User: NA CALVILLO OXcarbazepine 150 MG Oral Tablet (Trilepta*30 Tab*1 Sig: Take 1 Tablet by mouth in the morning. Authorizing Provider: PAULA TYLER Ordering User: NA VALVERDE Pantoprazole Sodium 40 MG Oral Tablet Dori*90 Tab*2 Sig: Take 1 Tablet by mouth daily. Authorizing Provider: PAULA TYLER Ordering User: NA CALVILLO * Telephone Encounter - Na Calvillo RPh - 06/23/2024 10:51 AM EDT Med was ordered for an acute issue.. Please approve if appropriate to continue. Pending Prescriptions: Disp Refills Prazosin HCl 1 MG Oral Capsule (Minipress)30 Cap*5 Sig: Take 1 Capsule by mouth at bedtime. Last Visit: 06/22/2024 (in office), Visit date not found (telemedicine) Next Visit: 07/05/2024 If no future appointments scheduled, and last appointment is greater than a year ago, please schedule patient for a follow-up appointment Last date the medication was ordered: 02/03/24 Pharmacy: [address] [place] Is this request for a controlled substance? No Urine Drug Screen:No results found. However, due to the size of the patient record, not all encounters were searched. Please check Results Review for a complete set of results. Patient Phone Numbers Labs: Lab Results Component Value Date/Time CREAT 0.9 06/22/2024 11:54 AM CREAT 0.8 01/24/2020 03:55 PM POTASSIUM 4.8 06/22/2024 11:54 AM POTASSIUM 4.3 01/24/2020 03:55 PM TSH 1.77 07/03/2020 04:30 PM TSH 1.660 03/15/2018 12:00 AM TSH 1.65 03/20/2017 12:47 PM LDL 27 02/12/2024 11:04 AM LDL 38 02/12/2024 11:04 AM LDL 36 10/13/2019 12:01 PM LDL NOT APPLICABLE 10/13/2019 12:01 PM LDLCALC 43 10/04/2015 12:00 AM ALT 27 06/22/2024 11:54 AM ALT 28 03/11/2018 11:14 AM HGBA1C 8.5 (H) 06/22/2024 11:54 AM HGBA1C 7.7 (H) 01/14/2024 09:40 AM HGBA1C 7.4 (H) 01/24/2020 03:55 PM Na Funk PharmD Clinical Pharmacist [facility] [phone] 06/23/2024 10:51 AM * Telephone Encounter - Na Calvillo RPh - 06/23/2024 10:43 AM EDT Patient is switching pharmacies. Reissued balance of refills on current prescription(s) to [facility] [address] Na Funk PharmD Clinical Pharmacist [facility] [phone] 06/23/2024 10:43 AM * Telephone Encounter - Bianka Daniels, malted milk mixer - 06/22/2024 2:11 PM EDT Please reroute Rx to [facility] [address] [place] [address] . Pending Prescriptions: Disp Refills Atorvastatin Calcium 40 MG Oral Tablet (L*90 Tab*2 Sig: Take 1 Tablet by mouth in the morning. BD Pen Needle Isamar 2nd Gen 32G X 4 MM 200 Ea*2 Sig: Use to inject insulin four times daily E11.9 Diclofenac Sodium 1 % External Gel (Grainola*100 g 2 Sig: Apply topically to affected area 2 times a day. Apply to painful joints Famotidine 20 MG Oral Tablet (Pepcid) 90 Tab*0 HumuLIN R U-500 KwikPen 500 UNIT/ML Solut*90 mL 0 Sig: Inject 100 units with meals and bedtime snack if blood glucose <200 and inject 120 units with meals and bedtime snack if blood glucose >=200. metFORMIN HCl 1000 MG Oral Tablet (Glucop*180 Ta*0 Sig: Take 1 Tablet by mouth in the morning and 1 Tablet before bedtime. Metoprolol Succinate ER 100 MG Oral Table*180 Ta*1 Montelukast Sodium 10 MG Oral Tablet (Sin*90 Tab*1 OXcarbazepine 150 MG Oral Tablet (Trilept*30 Tab*1 Sig: Take 1 Tablet by mouth in the morning. Pantoprazole Sodium 40 MG Oral Tablet Del*90 Tab*2 Sig: Take 1 Tablet by mouth in the morning. Potassium Citrate ER 10 MEQ (1080 MG) Ora*180 Ta*1 Sig: Take 1 Tablet by mouth in the morning and 1 Tablet before bedtime. Prazosin HCl 1 MG Oral Capsule (Minipress)30 Cap*0 Sig: Take 1 Capsule by mouth at bedtime. Last Visit: 06/22/2024 (in office), Visit date not found (telemedicine) 07/05/2024 If no future appointments scheduled, and last appointment is greater than a year ago, please schedule patient for a follow-up appointment Last date the medication was ordered: 05/05/24-09/08/23-12/11/23-/-01/14/24-06/01/24-05/26/24-/ -05/05/24-01/20/24-02/03/24 Patient Phone Numbers Labs: Lab Results Component [...] 07/05/2024 2:00 PM [place] [phone] Paula Tyler PA-C [address] [address] 07/05/2024 2:40 PM EDT Office Visit Pharmacy, Shiela Ramirez [address] [phone] [place] [address] [place] [address] 09/22/2024 9:30 AM EDT Office Visit Family Practice, Shiela Caban [address] [place] [phone] Norma Mosley DO [address] [place] [address] 10/18/2024 1:30 PM EDT Office Visit Cardiology, [facility] [address] [place] [address] Danica Grider CRNP [address] [place] [address] Health Maintenance Due Date Last Done Comments [...] Additional history exists CKD HGB USE SMARTSET 38998 06/22/202506/22, 06/22/2024, 04/22/2024, Additional history exists CKD PHOS USE SMARTSET 22351 06/22/2025 06/22/2024, 0 05/13/2023 Depression Monitoring 06/22/2025 [...] right lower lobe due to infectious organism Dyslipidemia, goal LDL below 70 Other and unspecified hyperlipidemia Type 2 diabetes mellitus with hemoglobin A1c goal of less than 7.0% (HCC) Type 2 diabetes mellitus with hemoglobin A1c goal of less than 8.0% (HCC) Chronic rhinitis Bipolar 2 disorder (HCC) Other bipolar disorders Gastroesophageal reflux disease without esophagitis Esophageal reflux Vivid dream Other dysfunctions of sleep stages or arousal from sleep Primary osteoarthritis of both hips Primary localized osteoarthrosis, pelvic region and thigh Hip pain, right Pain in joint, pelvic region and thigh Degeneration of intervertebral disc of lumbar region with discogenic back pain Melissa rash of groin Other candidiasis of other specified sites documented in this encounter Care Teams Flask Cleaner Relationship Specialty Start Date End Date Paula Tyler PA-C [address] [place] [address] [place] [address] PCP - General Physician Operator [employer] 04/14/24 documented as of this encounter
--- OUTSIDE RECORDS SUMMARY | 2024-07-03 20:43 | External Medical Summary ---
Author Name Unknown Address Unknown Organization K01:LAB[facility] [address] [address] Laboratory Report Ordering Provider Test Date Status JAYSON FUENTES 06/25/2024 14:25:56 Final Rheumatoid factor at a level above 50 IU/mL may lead to an overestimation of the D-dimer level. A normal D-dimer result (<0.50 ug/mL FEU) has a negative predictive value of approximately 95% for the exclusion of acute pulmonary embolism (PE) or deep vein thrombosis when there is low or moderate pretest PE probability. Increased D-dimer values are abnormal but do not indicate a specific disease state and the D-dimer increase does not definitively correlate with clinical severity of disease. Observation Date Value Abnormality Reference (Units ) Status Fibrin D-dimer FEU [Mass/volume] in Platelet poor plasma by Immunoassay 06/25/2024 14:25:56 <0.27 <0.50 (ug/mL FEU) Final Performing Location LABORATORY [address] [facility] [address]
--- OUTSIDE RECORDS SUMMARY | 2024-07-03 20:43 | External Medical Summary | Summary of Care ---
Author Name Unknown Organization [facility] Address [address] [place] [address] Phone [phone] Care Team Providers Care Physical Science Technician Name Role Phone Paula Pan PA-C Primary Care Provider [phone] Reason for Visit * Reason Onset Date Comments Medication Refill 06/22/2024 Encounter Details Date Type Department Care Team (Late st Contact Info) Description 06/22/2024 Telephone [facility] [address] [facility] [place] [address] Paula Pan PA-C [address] [facility] [place] [address] Medication Refill Allergies Active Allergy Reactions Criticality Noted Date Comments Adhesive Tape 11/04/2017 sensitivity Cephalosporins Unknown 09/08/2000 Clarithromycin Rash 09/08/2000 Clobetasol Unknown 02/17/2022 Sulfa Antibiotics High 09/08/2000 Unknown Other Reaction(s): "Sulfa Drugs = rash" Terconazole 09/09/2002 terazol - made her itchy documented as of this encounter (statuses as of 06/24/2024) Medications INSULIN SYRINGES (DISP) 1ML U-100 MISCIndications:D [...] ns:COPD, group B, by GOLD 2017 classification ([facility]) Inhale 2 Puffs by mouth every 6 hours as needed for Cough, Shortness of Breath or Wheezing. 18 g 2 024 Active Acetaminophen 325 MG Oral Capsule Take by mouth. Active Nystatin 497459 UNIT/GM External Powder (Nystop)Indicatio ns:Melissa rash of groin APPLY 0.5 GRAM TO THE GROIN TWICE DAILY IN THE MORNING AND THE EVENING. 180 g 1 024 Active Nystatin-Triamcin olone 579275-0.1 UNIT/GM-% External Cream (Mycolog)Indicati ons:Melissa rash of groin APPLY TOPICALLY TO THE AFFECTED AREA TWICE DAILY FOR 14 DAYS. 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 60 Capsule 1 025 Active Trelegy Ellipta 100-62.5-25 MCG/ACT Aerosol Powder Breath ActivatedIndicati ons:COPD, group B, by GOLD 2017 classification ([facility]) INHALE 1 PUFF BY MOUTH IN THE MORNING 180 Each 3 025 Active Doxycycline Hyclate 100 MG Oral CapsuleIndication s:Pneumonia of right lower lobe due to infectious organism Take 1 Capsule by mouth in the morning and 1 Capsule before bedtime. Do all this for 10 days. Until gone.. 20 Capsule 025 2024 Active Cranberry Juice Extract 1000 MG Oral Capsule Take 1 Tablet by mouth in the morning. 90 Capsule 1 Active Loratadine 10 MG Oral Capsule Take 1 Capsule by mouth in the morning. 90 Capsule 1 025 Active Magnesium 400 MG Oral Capsule Take 1 Capsule by mouth in the morning. 90 Capsule 1 025 Active Glucosamine Chondroitin + D3 Oral Tablet Take 1 Tablet by mouth in the morning. 90 Tablet 1 Active B Complex-Folic Acid 500-5-200 MCG-MG-MCG Oral Tablet Take 1 Tablet by mouth in the morning. 90 Tablet 1 025 Active One-A-Day Womens Oral Tablet Take 1 Tablet by mouth at bedtime. 90 Tablet 1 Active Co Q 10 10 MG Oral Capsule Take 1 Capsule by mouth in the morning. 90 Capsule 1 025 Active ONE-A-DAY WOMENS PO TABS 1 [...] in the morning. 2024 Discontinued(R efill) Glucosamine-Chond ephuep-CSQ-H3 TABS Take 1 Tab by mouth daily. 2024 Discontinued(M edication/Dose Changed) Co Q 10 10 MG Oral Capsule Take 1 Capsule by mouth daily. 2024 Discontinued(R efill) documented as of this encounter (statuses as of 06/24/2024) Active Problems Problem Noted Date Diagnosed Date [...] as of this encounter (statuses as of 06/24/2024) Resolved Problems Problem Noted Date Diagnosed Date [...] colitis 12/09/2012 017 Genetic Sleep Disorder Resea [facility] Other*[id number] 03/02/2012 11/01/2015 Tobacco use disorder 11/20/2011 014 [...] CVA 07/02/2004 07/20/2008 Overview (07/20/2008): Modified per [facility] protocol #8 Asthma exacerbation in COPD 07/15/2002 04/08/2018 Other chronic sinusitis 07/15/200209/05 ADJ DISORDER W/DEPRES MOOD 07/15/2002 0 12/09/2019 DM, UNCONTROLLED, TYPE II Tobacco use disorder 012 Chronic sinusitis 09/24/2016 Allergic rhinitis 11/20/2011 NON ALLERGIC RHINITIS 2011 Sensorineural hearing loss, bilateral 09/24/2016 Presbyacusis 05/06/2022 documented as of this encounter (statuses as of 06/24/2024) Immunizations Name Administration Dates Next Due COVID-19 mRNA, LNP-s, No Pre serve, 2-Dose Series (Moderna) 01/14/2021,06/06/2020,05/09/2020 COVID-19, MRNA-LNP, 24-25, P R, 30MCG/0.3ML, IM, 12YRS AND ABOVE (Pfizer-Comirnaty) 12/17/2023 COVID-19, MRNA-LNP, PF, 30 M CG/0.3 mL, 12 YRS AND ABOVE, IM (PFIZER-Comirnaty) [...] Miscellaneous Notes * Telephone Encounter - Paula Pan PA-C - 06/23/2024 4:36 PM EDT sent what I can send We do not prescribe biotin or cinnamon Paula Pan PA-C Inboxologist Note: * Telephone Encounter - Bianka Daniels compliance reviewer - 06/22/2024 2:55 PM EDT Refilled needed for pill packs Pt calling requesting the following medication below that is listed as "Historical". The following information was provided: Medication Name: COMPLEX-FOLIC ACID PO CAPS Strength: Directions: 1 time per day Preferred Quantity: 30 Previous Prescriber: not listed Preferred Pharmacy: [address] Medication Name: Biotin 1 MG Oral Capsule Strength: 1 mg Directions: Take 1 Capsule by mouth in the morning Preferred Quantity: 30 Previous Prescriber: not listed Preferred Pharmacy: [address] Medication Name: CINNAMON 500 MG PO CAPS Strength: 500 mg Directions: 2 tab twice a day Preferred Quantity: 120 Previous Prescriber: not listed Preferred Pharmacy: [address] Medication Name: Co Q 10 10 MG Oral Capsule Strength: 10 mg Directions: Take 1 Capsule by mouth daily Preferred Quantity: 30 Previous Prescriber: not listed Preferred Pharmacy:[address] Medication Name: CRANBERRY JUICE EXTRACT 1000 MG PO CAPS Strength: 1000 mg Directions: 1 capsule per day Preferred Quantity: 30 Previous Prescriber: not listed Preferred Pharmacy: [address] Medication Name: Ukopswiqsep-Hqmnmveonor-AIV-D3 TABS Strength: Directions: Take 1 Tab by mouth daily., Preferred Quantity: 30 Previous Prescriber: not listed Preferred Pharmacy: [address] Medication Name: Loratadine 10 MG Cap Strength: 10 mg Directions: Take 1 Capsule by mouth in the morning Preferred Quantity: 30 Previous Prescriber: not listed Preferred Pharmacy: [address] Medication Name: Magnesium 400 MG Capsule Strength: 400 mg Directions: Take 1 Capsule by mouth in the morning Preferred Quantity: 30 Previous Prescriber: not listed Preferred Pharmacy: [address] Medication Name: OMEGA 3-6-9 FATTY ACIDS PO CAPS Strength: 3-6-9 Directions: Take 1 capsule daily Preferred Quantity: 30 Previous Prescriber: not listed Preferred Pharmacy: [address] Medication Name: ONE-A-DAY WOMENS PO TABS Strength: Directions: 1 tab daily Preferred Quantity: 30 Previous Prescriber: not listed Preferred Pharmacy: [address] Please review and approve if appropriate. Thank you, Bianka Daniels Singer Songwriter [facility] 06/22/2024,2:58 PM documented in this encounter Plan of Treatment Upcoming Encounters Date Type Department Care Team (Late st Contact Info) Description 07/05/2024 2:00 PM EDT Office Visit Family [facility], Shiela Caban [address] [phone] Paula Pan PA-C [address] [id number] 07/05/2024 2:40 PM EDT Office Visit Pharmacy, Shiela Ramirez [address] [phone] Shiela [address] [place] [address] 09/22/2024 9:30 AM EDT Office Visit [facility], [address] [phone] Sabine Mosley DO [address] [phone] 10/18/2024 1:30 PM EDT Office Visit Cardiology, [facility] [address] [address] Danica Grider CRNP [address] [place] [address] Health Maintenance Due Date Last Done Comments [...] Additional history exists CKD HGB USE SMARTSET 54690 06/22/202506/22, 06/22/2024, 04/22/2024, Additional history exists CKD PHOS USE SMARTSET [id number] 06/22/2025 06/22/2024, 0 05/13/2023 Depression Monitoring 06/22/2025 06/22/2024, 025 O2 ASSESSMENT COMPLETED IN PAST YEAR FOR COPD 06/22/2025 06/22/2024 DTap/Tdap Vaccines (4 - Td or Tdap) 03/16/2034 03/16/2024, 11/18/2010, 11/18/2010 Hepatitis C Screening Completed 09/12/2001 Pneumococcal Vaccine: 50+ Years Completed 08/10/2018, 07/23/2017, 01/18/2002 Zoster Vaccines Completed 02/10/2019, 07/0 12/2018, 01/01/2012 Alpha-1 Antitrypsin Completed 07/18/2021 Lung [...] filedocumented as of this encounter Care Teams Physical Science Technician Relationship Specialty Start Date End Date Paula Pan PA-C [address] [id number] PCP - General Physician Pharmacy General Manager 04/14/24 documented as of this encounter
--- OUTSIDE RECORDS SUMMARY | 2024-07-03 20:43 | External Medical Summary | Summary of Care ---
Author Name Unknown Organization [facility] Address [address] [place] [address] Phone [phone] Care Team Providers Care Housekeeping Assistant Name Role Phone Paula Pan PA-C Primary Care Provider [phone] Reason for Visit * Reason Comments Outpatient Testing Encounter Details Date Type Department Care Team (Late st Contact Info) Description 06/22/2024 12:00 PM EDT Laboratory Laboratory, [facility] [address] [place] [phone] [facility] [address] [place] [address] Type 2 diabetes mellitus with hemoglobin A1c goal of less than 8.0% ([facility]); Type 2 diabetes mellitus with hemoglobin A1c goal of less than 7.0% ([facility]); Chronic kidney disease, stage 3a ([facility]); Fever, unspecified fever cause; SOB (shortness of breath); Cough, unspecified type Allergies Active Allergy Reactions Criticality Noted Date Comments Adhesive Tape 11/04/2017 sensitivity Cephalosporins Unknown 09/08/2000 Clarithromycin Rash 09/08/2000 Clobetasol Unknown 02/17/2022 Sulfa Antibiotics High 09/08/2000 Unknown Other Reaction(s): "Sulfa Drugs = rash" Terconazole 09/09/2002 terazol - made her itchy documented as of this encounter (statuses as of 06/25/2024) Medications INSULIN SYRINGES (DISP) 1ML U-100 MISCIndications:D [...] ns:COPD, group B, by GOLD 2017 classification ([facility]) Inhale 2 Puffs by mouth every 6 hours as needed for Cough, Shortness of Breath or Wheezing. 18 g 2 024 Active Acetaminophen 325 MG Oral Capsule Take by mouth. Active Nystatin 399936 UNIT/GM External Powder (Nystop)Indicatio ns:Melisas rash of groin APPLY 0.5 GRAM TO THE GROIN TWICE DAILY IN THE MORNING AND THE EVENING. 180 g 1 024 Active Nystatin-Triamcin olone 860753-6.1 UNIT/GM-% External Cream (Mycolog)Indicati ons:Melissa rash of groin APPLY TOPICALLY TO THE AFFECTED AREA TWICE DAILY FOR 14 DAYS. 60 g 1 024 Active Ipratropium [place] 0.03 % Nasal Solution (Atrovent) ADMINISTER 2 [...] Oral Tablet (Apixaban)Indicat ions:PAF (paroxysmal atrial fibrillation) ([facility]),Cerebrovasc ular disease, arteriosclerotic, post-stroke TAKE 1 TABLET [...] ons:COPD, group B, by GOLD 2017 classification ([facility]) INHALE 1 PUFF BY MOUTH IN THE MORNING 180 Each 3 025 Active Doxycycline Hyclate 100 MG Oral CapsuleIndication s:Pneumonia of right lower lobe due to infectious organism Take 1 Capsule by mouth in the morning and 1 Capsule before bedtime. Do all this for 10 days. Until gone.. 20 Capsule 025 2024 Active ONE-A-DAY WOMENS PO TABS 1 daily [...] in the morning. 2024 Discontinued(R efill) Glucosamine-Chond xfqdnn-AIL-C4 TABS Take 1 Tab by mouth daily. [...] by mouth at bedtime. 30 Capsule 5 2024 Discontinued(R efill) Torsemide 20 MG Oral Tablet (Demadex)Indicati ons:Chronic diastolic heart failure (HCC) Take 2 Tablets by mouth in the morning. 180 Tablet 1 2024 Discontinued(R efill) Atorvastatin Calcium 40 MG Oral Tablet (Lipitor)Indicati ons:Dyslipidemia, goal LDL below 70 TAKE 1 TABLET BY MOUTH EVERY DAY 90 Tablet 3 2024 Discontinued(R efill) Pantoprazole Sodium 40 MG [...] DAY IN THE MORNING 90 Tablet 1 2024 Discontinued(R efill) Montelukast Sodium 10 MG [...] colitis 12/09/2012 017 Genetic Sleep Disorder Resea [facility] Other*[id number] 03/02/2012 11/01/2015 Tobacco use disorder 11/20/2011 014 [...] P R, 30MCG/0.3ML, IM, 12YRS AND ABOVE ([email or web address]) 12/17/2023 COVID-19, MRNA-LNP, PF, 30 M CG/0.3 mL, 12 YRS AND ABOVE, IM ([email or web address]) 12/30/2022 COVID-19, mRNA, LNP-s, PF, B ooster, 100mcg/0.5mg (Moderna) 08/12/2021 Covid-19, Mrna, Lnp-s, Pf, B ivalent, 30 Mcg, IM, 12 yrs and above (Pfizer) 12/30/2021 H1N1 2009 Influenza, IM 02/23/2009 Pneumococcal Conjugate Vacc, 13 Valent (Prevnar) 07/23/2017 Pneumococcal Polysaccharide PPV23 (Pneumovax) 08/10/2018,01/18/2002 RSV Vac., Recomb, Adjuvant, PF,0.5 Ml (Arexvy) 12/17/2023 Season Influenza, Quad, PF, Adjuvanted, 65+ Yrs, IM (FLUAD) 12/30/2022 Seasonal Influenza Vac., MDV , IM, 0.5 mL (Fluzone) 01/18/2014,01/27/2013,01/15/2012,03/06,01/18/2006,05/03/2004,02/23/20 03,01/18/2002,02/22/2001 Seasonal Influenza Virus Vac cine, Unspecified Formulation 12/12/2021,12/31/2020,12/23/2019,01/04,01/15/2018,12/26/2016,12/06/19 17,01/16/2016,12/24/2015,01/04/2015,1 ,01/27/2013,01/15/2012,03/20,02/23/2009,01/18/2006,,02/22/2003,01/18/2002,02/22/2001 Seasonal Influenza, High Dos e, Trivalent, PF, [...] 07/31/2023 Does the household have a re lar source of income? (Household - for ages [...] Description 06/25/2024 2:40 PM EDT Laboratory Laboratory, [address] [place] [phone] Mario Villaseñor [facility] [address] [place] [address] Arrived 07/05/2024 2:00 PM EDT Office Visit Family Practice, Shiela Caban [address] [place] [phone] Paula Pan PA-C [address] [place] [address] 07/05/2024 2:40 PM EDT Office Visit Pharmacy, [place] [phone] [address] [address] 09/22/2024 9:30 AM EDT Office Visit Family Practice, [place] [phone] Sabine Mosley DO [address] [address] 10/18/2024 1:30 PM EDT Office Visit Cardiology, [facility] [address] [place] [phone] Danica Grider CRNP [address] [place] [address] Pending Results Name Type Priority Associated Diagnoses Date /Time D-DIMER Lab Routine SOB (shortness of breath) Cough, unspecified type 06/25/2024 2:25 PM EDT Health Maintenance Due Date Last Done Comments [...] Additional history exists CKD HGB USE SMARTSET 02781 06/22/202506/22, 06/22/2024, 04/22/2024, Additional history exists CKD PHOS USE SMARTSET 21395 06/22/2025 06/22/2024, 0 05/13/2023 Depression Monitoring 06/22/2025 [...] Not on filedocumented as of this encounter Procedures Procedure Name Priority Date/Time Associated Diagnosis Comments DIFFERENTIAL, AUTOMATED Routine 06/22/2024 11:54 AM EDT Fever, unspecified fever cause SOB (shortness of breath) Cough, unspecified type HEMOGLOBIN A1C Routine 06/22/2024 11:54 AM EDT Type 2 diabetes mellitus with hemoglobin A1c goal of less than 8.0% (HCC) BNP (NT-PROBNP) Routine 06/22/2024 11:54 AM EDT SOB (shortness of breath) Cough, unspecified type COMPREHENSIVE METABOLIC PANEL Routine 06/22/2024 11:54 AM EDT Type 2 diabetes mellitus with hemoglobin A1c goal of less than 8.0% (HCC) CBC Routine 06/22/2024 11:54 AM EDT Fever, unspecified fever cause SOB (shortness of breath) Cough, unspecified type PHOSPHORUS Routine 06/22/2024 11:54 AM EDT Chronic kidney disease, stage 3a (HCC) CBC Routine 06/22/2024 11:54 AM EDT Fever, unspecified fever cause SOB (shortness of breath) Cough, unspecified type DIFFERENTIAL, TECHNOLOGIST REVIEW Routine 06/22/2024 11:54 AM EDT Fever, unspecified fever cause SOB (shortness of breath) Cough, unspecified type VITAMIN B12 Routine 06/22/2024 11:54 AM EDT Type 2 diabetes mellitus with hemoglobin A1c goal of less than 7.0% (HCC) documented in this encounter Results * (ABNORMAL) DIFFERENTIAL, TECHNOLOGIST REVIEW (06/22/2024 11:54 AM EDT) Pathologist [facility] Ovalocytes Moderate(A ) None Seen 06/22/2024 11:19 PM EDT LAB[facility]ATORY [facility] Blood Venous blood specimen / Unknown Venipuncture / Unknown 06/22/2024 11:54 AM EDT 06/22/2024 11:54 AM EDT us Paula Pan PA-C LAB BLOOD ORDERABLES Katie l Result LAB[facility] [address] [place] [address] * DIFFERENTIAL, AUTOMATED (06/22/2024 11:54 AM EDT) WBC 9.82 4.00 - 10.80 K/uL 06/22/2024 11:19 PM EDT [facility] Neutrophils % 62.0 40.0 - 75.0 % 06/22/2024 11:19 PM EDT LAB[facility] Lymphocytes % 27.4 18.0 - 42.0 % 06/22/2024 11:19 PM EDT [facility] Monocytes % 7.5 1.0 - 11.0 % 06/22/2024 11:19 PM EDT LAB[facility]AT[facility] Eosinophils % 1.7 0.0 - 6.0 % 06/22/2024 11:19 PM EDT [facility] Basophils % 0.7 0.0 - 2.0 % 06/22/2024 11:19 PM EDT LAB[facility]ORY [facility] Immature Granulocytes % 0.7 0.0 - 2.0 % 06/22/2024 11:19 PM EDT LAB[facility]ORY [facility] Absolute Neutrophils 6.08 1.80 - 7.70 K/uL 06/22/2024 11:19 PM EDT LAB[facility]ATORY [facility] Absolute Lymphocytes 2.69 1.00 - 4.80 K/ul 06/22/2024 11:19 PM EDT LAB[facility]ATORY [facility] Absolute Monocytes 0.74 0.00 - 1.10 K/uL 06/22/2024 11:19 PM EDT LAB[facility]ORY [facility] Absolute Eosinophils 0.17 0.00 - 0.70 K/uL 06/22/2024 11:19 PM EDT LAB[facility]ATORY [facility] Absolute Basophils 0.07 0.00 - 0.20 K/uL 06/22/2024 11:19 PM EDT LAB[facility]ATORY [facility] Absolute Immature Granulocytes 0.07 0.00 - 0.20 K/uL 06/22/2024 11:19 PM EDT LAB[facility]ORY [facility] Blood Venous blood specimen / Unknown Venipuncture / Unknown 06/22/2024 11:54 AM EDT 06/22/2024 11:54 AM EDT us Paula Pan PA-C LAB BLOOD ORDERABLES Katie l Result LABORATORY [facility] [address] [place] [address] * (ABNORMAL) CBC (06/22/2024 11:54 AM EDT) [facility] WBC 9.82 4.00 - 10.80 K/uL 06/22/2024 10:37 PM EDT LAB[facility]ATORY [facility] RBC 4.22 3.85 - 5.15 M/uL 06/22/2024 10:37 PM EDT LAB[facility] HGB 10.2(L) 12.0 - 15.3 g/dL 06/22/2024 10:37 PM EDT [facility] HCT 36.4 36.0 - 45.2 % 06/22/2024 10:37 PM EDT [facility] MCV 86.3 81.5 - 97.5 fL 06/22/2024 10:37 PM EDT LABORATORY [facility] MCH 24.2 27.0 - 34.0 pg 06/22/2024 10:37 PM EDT LABORATORY [facility] MCHC 28.0 32.0 - 36.0 g/dL 06/22/2024 10:37 PM EDT LABORATORY [facility] RDW 21.1 11.5 - 15.5 % 06/22/2024 10:37 PM EDT LABORATORY [facility] PLT 148 140 - 400 K/uL 06/22/2024 10:37 PM EDT LABORATORY [facility] MPV 11.9 6.6 - 11.1 fL 06/22/2024 10:37 PM EDT LABORATORY [facility] nRBCs 0 <=0 /100 WBCs 06/22/2024 10:37 PM EDT LABORATORY [facility] Blood Venous blood specimen / Unknown Venipuncture / Unknown 06/22/2024 11:54 AM EDT 06/22/2024 11:54 AM EDT Paula Pan PA-C LAB BLOOD ORDERABLES Katie l Result LABORATORY [facility] [address] [place] [address] * (ABNORMAL) BNP, NT-PRO (06/22/2024 11:54 AM EDT) BNP, NT-Pro 836(H) <300 pg/mL 06/22/2024 10:57 PM EDT LABORATORY [facility] Blood Venous blood specimen / Unknown Venipuncture / Unknown 06/22/2024 11:54 AM EDT 06/22/2024 11:54 AM EDT Narrative LABORATORY [facility] - 06/22/2024 10:57 PM EDT Exclude Heart Failure: <300 pg/mL Diagnose Heart Failure: Age <50 yr: >450 pg/mL 50-75 yr: >900 pg/mL >75 yr: >1800 pg/mL GFR is 30-59 mL/min: >1200 pg/mL or Age-adjusted values GFR <30 mL/min: do not use, not reliable Prognostic threshold: 1000 pg/mL Paula Jud Mingear PA-C LAB BLOOD ORDERABLES Katie l Result Performing Organization Address [facility] Co de Phone Number LABORATORY [facility] [address] [place] [address] * PHOSPHORUS (06/22/2024 11:54 AM EDT) Pathologist [facility] Phosphorus 4.2 2.5 - 4.8 mg/dL 06/22/2024 10:57 PM EDT LABORATORY [facility] Blood Venous blood specimen / Unknown Venipuncture / Unknown 06/22/2024 11:54 AM EDT 06/22/2024 11:54 AM EDT Paula Renner Mingear PA-C LAB BLOOD ORDERABLES Katie l Result Performing Organization Address [facility] de Phone Number LABORATORY [place] [address] [place] [address] * (ABNORMAL) VITAMIN B12 (06/22/2024 11:54 AM EDT) [facility] Vitamin B12 1,634(H) 232 - 1,245 pg/mL 06/23/2024 1:00 AM EDT LABORATORY [facility] Blood Venous blood specimen / Unknown Venipuncture / Unknown 06/22/2024 11:54 AM EDT 06/22/2024 11:54 AM EDT Paula Renner Mingear PA-C LAB BLOOD ORDERABLES Katie l Result Performing Organization Address [facility] Co de Phone Number LABORATORY [facility] [address] [place] [address] * (ABNORMAL) HEMOGLOBIN A1C (06/22/2024 11:54 AM EDT) Pathologist [facility] Hemoglobin A1C 8.5(H) 4.0 - 5.6 % 06/22/2024 10:56 PM EDT LABORATORY [facility] Comment:The use of HbA1c to monitor glycemic status is based on normal hemoglobin and HbA composition. This test should not be used in patients with abnormal hemoglobin that affects the half life of the red blood cell or the in vivo glycation rates. Estimated Average Glucose 197(H) <126 mg/dL 06/22/2024 10:56 PM EDT LABORATORY [facility] Blood Venous blood specimen / Unknown Venipuncture / Unknown 06/22/2024 11:54 AM EDT 06/22/2024 11:54 AM EDT us Paula Pan PA-C LAB BLOOD ORDERABLES Katie guerra Result LABORATORY [facility] [address] [place], [place] [id number] * (ABNORMAL) COMPREHENSIVE METABOLIC PANEL (06/22/2024 11:54 AM EDT) BUN 20 6 - 20 mg/dL 06/22/2024 10:57 PM EDT LABORATORY C CREATININE 0.9 0.5 - 1.0 mg/dL 06/22/2024 10:57 PM EDT LABORATORY [facility] EGFR 70 >=60 mL/min 06/22/2024 10:57 PM EDT LABORATORY C Comment:eGFR is calculated b ased on the CKD-EPI 2020 equation. SODIUM 142 135 - 146 mmol/L 06/22/2024 10:57 PM EDT LABORATORY C POTASSIUM 4.8 3.5 - 5.1 mmol/L 06/22/2024 10:57 PM EDT LABORATORY C CHLORIDE 104 98 - 107 mmol/L 06/22/2024 10:57 PM EDT LABORATORY C CO2 25 22 - 32 mmol/L 06/22/2024 10:57 PM EDT LABORATORY C ANION GAP 13 7 - 15 mmol/L 06/22/2024 10:57 PM EDT LABORATORY C GLUCOSE 255(H) 70 - 120 mg/dL 06/22/2024 10:57 PM EDT LABORATORY C Albumin 4.0 3.8 - 5.0 g/dL 06/22/2024 10:57 PM EDT LABORATORY C AST 22 10 - 35 U/L 06/22/2024 10:57 PM EDT LABORATORY C Alkaline Phosphatase 105 35 - 130 U/L 06/22/2024 10:57 PM EDT LAB[facility]ATORY [facility] Bilirubin, Total 0.6 <=1.2 mg/dL 06/22/2024 10:57 PM EDT LAB[facility]ORY [facility] CALCIUM 9.8 8.4 - 10.2 mg/dL 06/22/2024 10:57 PM EDT LAB[facility]ORY [facility] Protein 6.9 6.0 - 8.3 g/dL 06/22/2024 10:57 PM EDT LAB[facility]ATORY [facility] ALT 27 10 - 35 U/L 06/22/2024 10:57 PM EDT LAB[facility]ORY [facility] Blood Venous blood specimen / Unknown Venipuncture / Unknown 06/22/2024 11:54 AM EDT 06/22/2024 11:54 AM EDT us Paula Pan PA-C LAB BLOOD ORDERABLES Katie l Result LAB[facility]ATORY [facility] [address] [facility] [place] [address] documented in this encounter Visit Diagnoses Diagnosis Bipolar 2 disorder (HCC)- Primary Other bipolar disorders Screening for depression Type 2 diabetes mellitus with hemoglobin A1c goal of less than 7.0% (HCC) Chronic kidney disease, stage 3a (HCC) Fever, unspecified fever cause SOB (shortness of breath) Shortness of breath Cough, unspecified type Pneumonia of right lower lobe due to infectious organism Type 2 diabetes mellitus with hemoglobin A1c goal of less than 8.0% (HCC) Type 2 diabetes mellitus with hemoglobin A1c goal of less than 7.0% (HCC) Chronic kidney disease, stage 3a (HCC) Fever, unspecified fever cause SOB (shortness of breath) Shortness of breath Cough, unspecified type documented in this encounter Care Teams Housekeeping Assistant Relationship Specialty Start Date End Date Paula Pan PA-C [address] [place] [address] [place] [address] PCP - General Physician Precision Lens Technician 04/14/24 documented as of this encounter
--- OUTSIDE RECORDS SUMMARY | 2024-07-03 20:43 | External Medical Summary | Summary of Care ---
Author Name Unknown Organization [facility] Address [address] [place] [address] Phone [phone] Care Team Providers Care Police Inspector Name Role Phone Paula Pan PA-C Primary Care Provider [phone] Reason for Visit * Reason Onset Date Comments Medication Refill 06/23/2024 Encounter Details Date Type Department Care Team (Late st Contact Info) Description 06/23/2024 [facility] [address] [place] [address] Roro Ceron MD [address] [place] [address] Medication Refill Allergies Active Allergy Reactions Criticality [...] 07/06/19 15 Active Insulin Syringe 31G X /16" 0.5 [...] by mouth in the morning. Active Glucosamine-Chondr mfcjn-PIM-E3 TABS Take 1 Tab by mouth daily. [...] s:COPD, group B, by GOLD 2017 classification ([facility]) Inhale 2 Puffs by mouth every 6 hours as needed for Cough, Shortness of Breath or Wheezing. 18 g 2 07/04/19 24 Active Acetaminophen 325 MG Oral Capsule Take by mouth. Active Nystatin 083017 UNIT/GM External Powder (Nystop)Indication s:Melissa rash of groin APPLY 0.5 GRAM TO THE GROIN TWICE DAILY IN THE MORNING AND THE EVENING. 180 g 1 12/01/19 24 Active Nystatin-Triamcino lone 117172-4.1 UNIT/GM-% External Cream (Mycolog)Indicatio ns:Melissa rash of groin APPLY TOPICALLY TO THE AFFECTED AREA TWICE DAILY FOR 14 DAYS. 60 g 1 12/01/19 24 Active Prazosin HCl 1 MG Oral Capsule (Minipress)Indicat ions:Vivid dream Take 1 Capsule by mouth at bedtime. 30 Capsule 5 02/03/20 24 Active Ipratropium [place] 0.03 % Nasal Solution (Atrovent) ADMINISTER 2 [...] Oral Tablet (Apixaban)Indicati ons:PAF (paroxysmal atrial fibrillation) ([facility]),Cerebrovascu lar disease, arteriosclerotic, post-stroke TAKE 1 TABLET [...] ns:COPD, group B, by GOLD 2017 classification ([facility]) INHALE 1 PUFF BY MOUTH IN THE MORNING 180 Each 3 05/29/19 25 Active Doxycycline Hyclate 100 MG Oral CapsuleIndications :Pneumonia of right lower lobe due to infectious organism Take 1 Capsule by mouth in the morning and 1 Capsule before bedtime. Do all this for 10 days. Until gone.. 20 Capsule 06/23/19 25 025 Active Atorvastatin Calcium 40 MG Oral Tablet (Lipitor)Indicatio ns:Dyslipidemia, goal LDL below 70 Take 1 Tablet by mouth in the morning. 90 Tablet 2 06/24/19 25 Active BD Pen Needle Isamar 2nd Gen 32G X 4 MMIndications:Type 2 diabetes mellitus with hemoglobin A1c goal of less than 7.0% ([facility]) Use to inject insulin four times daily E11.9 200 Each 1 06/24/19 25 Active Diclofenac Sodium 1 % External Gel (Voltaren) Apply topically to affected area 2 times a day. Apply to painful joints 100 g 2 06/24/19 25 Active Famotidine 20 MG Oral Tablet (Pepcid) Take 1 Tablet by mouth in the morning. 90 Tablet 06/24/19 25 Active HumuLIN R U-500 KwikPen 500 UNIT/ML Solution Pen-injectorIndica tions:Type 2 diabetes mellitus with hemoglobin A1c goal of less than 8.0% ([facility]) Inject 100 units with meals and bedtime snack if blood glucose <200 and inject 120 units with meals and bedtime snack if blood glucose >=200. 90 mL 06/24/19 25 Active metFORMIN HCl 1000 MG Oral Tablet (Glucophage)Indica tions:Type 2 diabetes mellitus with hemoglobin A1c goal of less than 7.0% ([facility]) Take 1 Tablet by mouth in the morning and 1 Tablet before bedtime. 180 Tablet 06/24/19 25 Active Metoprolol Succinate ER 100 MG Oral Tablet Extended Release 24 Hour (toPROL XL) Take 1 Tablet by mouth in the morning and 1 Tablet before bedtime. 180 Tablet 1 06/24/19 25 Active Montelukast Sodium 10 MG Oral Tablet (Singulair)Indicat ions:Chronic rhinitis Take 1 Tablet by mouth in the morning. 90 Tablet 1 06/24/19 25 Active OXcarbazepine 150 MG Oral Tablet (Trileptal)Indicat ions:Bipolar 2 disorder (HCC) Take 1 Tablet by mouth in the morning. 30 Tablet 1 06/24/19 25 Active Pantoprazole Sodium 40 MG Oral Tablet Delayed Release (Protonix)Indicati ons:Gastroesophage al reflux disease without esophagitis Take 1 Tablet by mouth daily. 90 Tablet 2 06/24/19 25 Active Tamsulosin HCl 0.4 MG Oral Capsule [...] upset stomach 360 Tablet 06/24/19 25 Active Potassium Citrate ER 10 MEQ (1080 MG) Oral Tablet Extended Release (potassium citrate-10) Take 1 Tablet by mouth in the morning and 1 Tablet before bedtime. 180 Tablet 1 06/24/19 25 Active Potassium Citrate ER 10 MEQ (1080 MG) Oral Tablet Extended Release (potassium citrate-10) Take 1 Tablet by mouth in the morning and 1 Tablet before bedtime. 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 Resea [facility] Other*[id number] 03/02/2012 11/01/2015 Tobacco use disorder 11/20/2011 014 [...] CVA 07/02/2004 07/20/2008 Overview (07/20/2008): Modified per [facility] protocol #8 Asthma exacerbation in COPD 07/15/2002 [...] mRNA, LNP-s, No Pre serve, 2-Dose Series ([employer]) 01/14/2021,06/06/2020,05/09/2020 COVID-19, MRNA-LNP, 24-25, P R, 30MCG/0.3ML, IM, 12YRS AND ABOVE ([facility]) 12/17/2023 COVID-19, MRNA-LNP, PF, 30 M CG/0.3 mL, 12 YRS AND ABOVE, IM ([employer]) 12/30/2022 COVID-19, mRNA, LNP-s, PF, B ooster, 100mcg/0.5mg ([employer]) 08/12/2021 Covid-19, Mrna, Lnp-s, Pf, B ivalent, [...] encounter Miscellaneous Notes * Telephone Encounter - Yue Calvillo RPh - 06/23/2024 10:50 AM EDT Patient is switching pharmacies. Reissued balance of refills on current prescription(s) to [address] ThanksYue, PharmD Clinical Pharmacist [facility] [phone] 06/23/2024 10:50 AM * Telephone Encounter - Yue Calvillo RPh - 06/23/2024 10:47 AM EDT Please reroute Rx to [address] Pending Prescriptions: Disp Refills Potassium Citrate ER 10 MEQ (1080 MG) Ora*180 Ta*1 Sig: Take 1 Tablet by mouth in the morning and 1 Tablet before bedtime. Last Visit: 11/03/2023 (in office), Visit date not found (telemedicine) Visit date not found If no future appointments scheduled, and last appointment is greater than a year ago, please schedule patient for a follow-up appointment Last date the medication was ordered: 01/20/24 Patient Phone Numbers Labs: Lab Results Component [...] 07/05/2024 2:00 PM EDT Office Visit [facility], Shiela [address] [place] [phone] Paula Pan PA-C [address] [facility] [place] [address] 07/05/2024 2:40 PM EDT Office Visit Pharmacy, Shiela Ramirez [address] [place] [phone] Shiela [facility] [address] [place] [address] [place] [address] 09/22/2024 9:30 AM EDT Office Visit [facility], Shiela Caban [address] [place] [phone] Sabine Mosley DO [address] [place] [address] 10/18/2024 1:30 PM EDT Office Visit Cardiology, [facility] [address] [place] [address] Danica Grider CRNP [address] [place] [address] Health Maintenance Due Date Last Done Comments [...] Additional history exists CKD HGB USE SMARTSET 38927 06/22/202506/22, 06/22/2024, 04/22/2024, Additional history exists CKD PHOS USE SMARTSET 19378 06/22/2025 06/22/2024, 0 05/13/2023 Depression Monitoring 06/22/2025 [...] filedocumented as of this encounter Care Teams Police Inspector Relationship Specialty Start Date End Date Paula Pan PA-C [address] [place] [address] PCP - General Physician Ice Cream Freezer 04/14/24 documented as of this encounter
--- OUTSIDE RECORDS SUMMARY | 2024-07-03 20:44 | External Medical Summary | Summary of Care ---
Author Name Unknown Organization [facility] Address [address] [place] [address] Phone [phone] Care Team Providers Care Electronics Scale Tester Name Role Phone Paula Pan PA-C Primary Care Provider [phone] Reason for Visit * Reason Onset Date Comments Advice 06/20/2024 Encounter Details Date Type Department Care Team (Late st Contact Info) Description 06/20/[address] [facility] [address] [facility] [facility] [place] [phone] Paula Pan PA-C [address] [facility] [place] [address] Advice Allergies Active Allergy Reactions Criticality Noted Date Comments Adhesive Tape 11/04/2017 sensitivity Cephalosporins Unknown 09/08/2000 Clarithromycin Rash 09/08/2000 Clobetasol Unknown 02/17/2022 Sulfa Antibiotics High 09/08/2000 Unknown Other Reaction(s): "Sulfa Drugs = rash" Terconazole 09/09/2002 terazol - made her itchy documented as of this encounter (statuses as of 06/22/2024) Medications INSULIN SYRINGES (DISP) 1ML U-100 MISCIndications: DM type 2, goal A1c below 7 as [...] in the morning. 60 Cap 17 015 Active clobetasol propionate (TEMOVATE) 0.05 % cream As needed 0 015 Active Insulin Syringe 31G X 5/16" 0.5 ML MISCIndications: DM type 2, not at goal (HCC) Use [...] as directed 3 Box Dosing Unit 3 Active Glucose Blood (ONETOUCH VERIO) STRP Use up to 4 times a day E11.9 300 Strip 3 018 Active Loratadine 10 MG Cap Take 1 Capsule by mouth in the morning. Active Glucosamine-Roque [id number] TABS Take 1 Tab by mouth daily. [...] Active CPAP every night at bedtime. Active Nebulizer/Tubing /Mouthpiece Kit Please provide mask 1 Kit 022 [...] HFA 108 (90 Base) MCG/ACT Inhalation Aerosol SolutionIndicati ons:COPD, group B, by GOLD 2017 classification ([facility]) Inhale 2 Puffs by mouth every 6 hours as needed for Cough, Shortness of Breath or Wheezing. 18 g 2 024 Active Acetaminophen 325 MG Oral Capsule Take by mouth. Active BD Pen Needle Isamar 2nd Gen 32G X 4 MMIndications:Ty pe 2 diabetes mellitus with hemoglobin A1c goal of less than 7.0% ([facility]) Use to inject insulin four times daily E11.9 200 Each 3 024 Active Tamsulosin HCl 0.4 MG Oral Capsule (Flomax) Take 1 Capsule by mouth in the morning. 90 Capsule 3 024 Active Nystatin 526767 UNIT/GM External Powder (Nystop)Indicati ons:Melissa rash of groin APPLY 0.5 GRAM TO THE GROIN TWICE DAILY IN THE MORNING AND THE EVENING. 180 g 1 024 Active Nystatin-Triamci nolone 498213-9.1 UNIT/GM-% External Cream (Mycolog)Indicat ions:Melissa rash of groin APPLY TOPICALLY TO THE AFFECTED AREA TWICE DAILY FOR 14 DAYS. 60 g 1 024 Active Diclofenac Sodium 1 % External Gel (Voltaren) Apply topically to affected area 2 times a day. Apply to painful joints 100 g 3 024 Active HumuLIN R U-500 KwikPen 500 UNIT/ML Solution Pen-injectorIndi cations:Type 2 diabetes mellitus with hemoglobin A1c goal of less than 8.0% ([facility]) Inject 100 units with meals and bedtime snack if blood glucose <200 and inject 120 units with meals and bedtime snack if blood glucose >=200. 90 mL 5 024 Active Potassium Citrate ER 10 MEQ (1080 MG) Oral Tablet Extended Release (potassium citrate-10) Take 1 Tablet by mouth in the morning and 1 Tablet before bedtime. 180 Tablet 3 024 Active Prazosin HCl 1 MG Oral Capsule (Minipress)Indic ations:Vivid dream Take 1 Capsule by mouth at bedtime. 30 Capsule 5 024 Active Ipratropium [place] 0.03 % Nasal Solution (Atrovent) ADMINISTER 2 SPRAYS INTO NOSTRIL IN THE MORNING AND 2 SPRAYS BEFORE BEDTIME. 90 mL 4 024 Active traMADol HCl 50 MG Oral Tablet (Ultram)Indicati ons:Hip pain, left Take 1 Tablet by mouth at bedtime as needed for Pain, Severe. 15 Tablet 024 Active Torsemide 20 MG Oral Tablet (Demadex)Indicat ions:Chronic diastolic heart failure (HCC) Take 2 Tablets by mouth in the morning. 180 Tablet 1 024 Active Triamcinolone Acetonide 0.1 % External Cream (Aristocort)Katina cations:Hand dermatitis Apply topically to affected area 2 times a day. To affected area. 80 g 5 024 Active Digoxin 125 MCG Oral Tablet (Lanoxin) TAKE 1 TABLET BY MOUTH EVERY DAY IN THE MORNING 90 Tablet 025 Active Eliquis 5 MG Oral Tablet (Apixaban)Indica tions:PAF (paroxysmal atrial fibrillation) (HCC),Cerebrovas cular disease, arteriosclerotic , post-stroke TAKE 1 TABLET BY MOUTH TWICE A DAY 180 Tablet 025 Active Atorvastatin Calcium 40 MG Oral Tablet (Lipitor)Indicat ions:Dyslipidemi a, goal LDL below 70 TAKE 1 TABLET BY MOUTH EVERY DAY 90 Tablet 3 025 Active Pantoprazole Sodium 40 MG Oral Tablet Delayed Release (Protonix)Indica tions:Gastroesop hageal reflux disease without esophagitis TAKE 1 TABLET BY MOUTH EVERY DAY 90 Tablet 3 025 Active Metoprolol Succinate ER 100 MG Oral Tablet Extended Release 24 Hour (toPROL XL) TAKE 1 TABLET BY MOUTH IN THE MORNING AND BEFORE BEDTIME 180 Tablet 2 025 Active Famotidine 20 MG Oral Tablet (Pepcid) TAKE 1 TABLET BY MOUTH EVERY DAY IN THE MORNING 90 Tablet 1 025 Active Montelukast Sodium 10 MG Oral Tablet (Singulair)Indic ations:Chronic rhinitis TAKE 1 TABLET BY MOUTH EVERY DAY IN THE MORNING 90 Tablet 2 025 Active Pregabalin 50 MG Oral Capsule (Lyrica)Indicati ons:Primary osteoarthritis of both hips,Hip pain, right,Degenerati on 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 60 Capsule 1 025 Active Trelegy Ellipta 100-62.5-25 MCG/ACT Aerosol Powder Breath ActivatedIndicat ions:COPD, group B, by GOLD 2017 classification ([facility]) INHALE 1 PUFF BY MOUTH IN THE MORNING 180 Each 3 025 Active metFORMIN HCl 1000 MG Oral Tablet (Glucophage)Katina cations:Type 2 diabetes mellitus with hemoglobin A1c goal of less than 7.0% ([facility]) Take 1 Tablet by mouth in the morning and 1 Tablet before bedtime. 180 Tablet 1 025 Active Sucralfate 1 GM Oral Tablet (Carafate)Indica tions:Upset stomach One tab by mouth up to 4 times a day as needed for acid reflux or upset stomach 360 Tablet 025 Active Hydrocortisone Acetate 25 MG Rectal Suppository (Anusol-HC) Administer 1 Suppository into the rectum in the morning and 1 Suppository before bedtime. As directed.. 12 Suppository 023 2024 Discontinued OXcarbazepine 150 MG Oral Tablet (Trileptal) Take 1 Tablet by mouth in the morning. 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 [facility] Other*[id number] 03/02/2012 11/01/2015 Tobacco use disorder 11/20/2011 014 [...] CVA 07/02/2004 07/20/2008 Overview (07/20/2008): Modified per [facility] protocol #8 Asthma exacerbation in COPD 07/15/2002 04/08/2018 Other chronic sinusitis 07/15/200209/05 ADJ DISORDER W/DEPRES MOOD 07/15/2002 0 12/09/2019 DM, UNCONTROLLED, TYPE II Tobacco use disorder 012 Chronic sinusitis 09/24/2016 Allergic rhinitis 11/20/2011 NON ALLERGIC RHINITIS 2011 Sensorineural hearing loss, bilateral 09/24/2016 Presbyacusis 05/06/2022 documented as of this encounter (statuses as of 06/22/2024) Immunizations Name Administration Dates Next Due COVID-19 mRNA, LNP-s, No Pre serve, 2-Dose Series (Moderna) 01/14/2021,06/06/2020,05/09/2020 COVID-19, MRNA-LNP, 24-25, P R, 30MCG/0.3ML, IM, 12YRS AND ABOVE ([employer]) 12/17/2023 COVID-19, MRNA-LNP, PF, 30 M CG/0.3 mL, 12 YRS AND ABOVE, IM ([employer]) 12/30/2022 COVID-19, mRNA, LNP-s, PF, B ooster, [...] No 07/31/2023 Does the household have a peak behavioral health serviceslar source of income? 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 Advised her that Moises Kaufman PA-C advised acute apt. Scheduled on 05/25 @ 10:40 AM with Paula Pan PA-C. Sabine will make pt aware of apt date/time. Call back [facility] with any advice or orders at [phone] Please fax new orders to [phone] * Telephone Encounter - Moises Kaufman PA-C - 06/21/2024 8:03 AM EDT Recurrent fever warrants re-evaluation in office. May need labs, CXR, ENT referral, etc. Please assist in scheduling with any available provider. * Telephone Encounter - Sofía Myrick LPN - 06/20/2024 4:56 PM EDT Patient was seen on 06/03 with Sinusitis- treatment with prednisone, Amoxicillin, and Mucinex. She completed Amoxicillin and Prednisone and still feels fatigue,productive cough with yellow mucus,Fever 101- 03/16, nasal drainage (clear), head ache and right ear pain. She states she does not feel like she got any better with multiple antibiotic treatments and prednisone. [id number] [address] [facility] Please contact patient with advice/orders @ [phone] * Telephone Encounter - Allison Raygoza OSA - 06/20/2024 4:51 PM EDT Reason for patient's call: Fever, drainage, yellow mucus. Appts on 05/11 and 06/03/24. Caller was transferred to [facility] at the nurse line. documented in this encounter Plan of Treatment Upcoming Encounters Date Type Department Care Team ([facility] st Contact Info) Description 07/05/2024 2:00 PM EDT Office Visit Family [facility], Shiela Caban [address] [place] [phone] Paula Pan PA-C [address] [place] [address] 07/05/2024 2:40 PM EDT Office Visit Pharmacy, Shiela Ramirez [address] [phone] [address] [place] [address] 09/22/2024 9:30 AM EDT Office Visit Family [facility], Elkin Andrey Caban [address] [phone] Sabine Mosley DO [address] [place] [address] 10/18/2024 1:30 PM EDT Office Visit Cardiology, [facility] [address] [place] [address] Danica Grider CRNP [address] [place] [id number] Health Maintenance Due Date Last Done Comments Fecal Occult Blood Test 1997 Sigmoidoscopy 1997 Adult Wellness Visit 2018 Colonoscopy 01/03/2020 01/02/2010 Diabetic Eye Exam 06/17/2023 06/16/2022, , 03/23/2020, Additional history exists Diabetic Foot Exam 09/23/2023 09/22/2022, 0 08/22/2021, 11/16/2020, Additional history exists DXA Scan 01/04/2024 01/03/2019, 05/0 11/2013, 06/12/2000 COVID-19 Vaccine (3 - Pfizer risk series) 01/14/2024 12/17/2023, 12/30/2022, 12/30/2021, Additional history exists GFR 02/27/2024 08/27/2023, 02/0 10/2023, 04/22/2023, Additional history exists Mammogram 03/26/2024 03/26/2023, 03/06, 02/11/2021, Additional history exists B-12 04/22/2024 04/22/2023, 05/07, 04/29/2021, Additional history exists CKD PHOS USE SMARTSET 66243 05/13/2024 05/13/2023 HbA1c 07/14/2024 01/14/2024, 07/06, 04/17/2023, Additional history exists Cologuard 08/30/2024 08/30/2021, 08/05, 08/25/2021, Additional history exists Colorectal Cancer Screening 08/30/2024 Albumin/Creatinine Ratio 02/11/2025 024, 01/23/2024, 09/22/2022, Additional history exists CKD HGB USE SMARTSET 36375 04/22/202504/22, 04/22/2024, 04/17/2023, Additional history exists DIG LEVEL FOR MEDICATION MONITORING YEARLY 04/22/2025 04/22/2024, 05/13/2023, 04/17/2023, Additional history exists Depression Monitoring 06/22/2025 06/22/2024, 025 O2 ASSESSMENT [...] filedocumented as of this encounter Care Teams Electronics Scale Tester Relationship Specialty Start Date End Date Paula Pan PA-C [address] [place] [address] PCP - General Physician [facility] Practitioner 04/14/24 documented as of this encounter
--- OUTSIDE RECORDS SUMMARY | 2024-07-03 20:44 | External Medical Summary | Summary of Care ---
Author Name Unknown Organization [facility] Address [address] [place] [address] Phone [phone] Care Team Providers Care Production Support Engineer Name Role Phone Paula Pan PA-C Primary Care Provider [phone] Reason for Visit * Reason Comments Acute Pt states that she h as been having a earache, fever, and running nose, she states that it has been on and off. Encounter Details Date Type Department Care Team (Late st Contact Info) Description 06/22/2024 10:40 AM EDT Office Visit [facility] [address] [facility] [place] [place] [phone] Paula Pan PA-C [address] [place] [address] Bipolar 2 disorder ([facility])*; Screening for depression; Type 2 diabetes mellitus with hemoglobin A1c goal of less than 7.0% ([facility]); Chronic kidney disease, stage 3a ([facility]); Fever, unspecified fever cause; SOB (shortness of breath); Cough, unspecified type; Pneumonia of right lower lobe due to infectious organism Allergies Active Allergy Reactions Criticality Noted Date [...] by mouth in the morning. Active Glucosamine-Roque [id number] TABS Take 1 Tab by mouth daily. [...] ons:COPD, group B, by GOLD 2017 classification ([facility]) Inhale 2 Puffs by mouth every 6 hours as needed for Cough, Shortness of Breath or Wheezing. 18 g 2 024 Active Acetaminophen 325 MG Oral Capsule Take by mouth. Active BD Pen Needle Isamar 2nd Gen 32G X 4 MMIndications:Ty pe 2 diabetes mellitus with hemoglobin A1c goal of less than 7.0% ([facility]) Use to inject insulin four times daily E11.9 200 Each 3 024 Active Tamsulosin HCl 0.4 MG Oral Capsule (Flomax) Take 1 Capsule by mouth in the morning. 90 Capsule 3 024 Active Nystatin 264965 UNIT/GM External Powder (Nystop)Indicati ons:Melissa rash of groin APPLY 0.5 GRAM TO THE GROIN TWICE DAILY IN THE MORNING AND THE EVENING. 180 g 1 024 Active Nystatin-Triamci nolone 372582-5.1 UNIT/GM-% External Cream (Mycolog)Indicat ions:Melissa rash of [...] hemoglobin A1c goal of less than 8.0% ([facility]) Inject 100 units with meals [...] bedtime. 30 Capsule 5 024 Active Ipratropium [place] 0.03 % Nasal Solution (Atrovent) ADMINISTER 2 [...] Oral Tablet (Apixaban)Indica tions:PAF (paroxysmal atrial fibrillation) ([facility]),Cerebrovas cular disease, arteriosclerotic , post-stroke TAKE 1 [...] ions:COPD, group B, by GOLD 2017 classification ([facility]) INHALE 1 PUFF BY MOUTH IN THE MORNING 180 Each 3 025 Active metFORMIN HCl 1000 MG Oral Tablet (Glucophage)Katina cations:Type 2 diabetes mellitus with hemoglobin A1c goal of less than 7.0% ([facility]) Take 1 Tablet by mouth in the morning and 1 Tablet before bedtime. 180 Tablet 1 025 Active Sucralfate 1 GM Oral Tablet (Carafate)Indica tions:Upset stomach One tab by mouth up to 4 times a day as needed for acid reflux or upset stomach 360 Tablet 025 Active OXcarbazepine 150 MG Oral Tablet (Trileptal)Indic ations:Bipolar 2 disorder (HCC) Take 1 Tablet by mouth in the morning. 30 Tablet 1 025 Active Doxycycline Hyclate 100 MG Oral CapsuleIndicatio ns:Pneumonia of right lower lobe due to infectious organism Take 1 Capsule by mouth in the morning and 1 Capsule before bedtime. Do all this for 10 days. Until gone.. 20 Capsule 025 2024 Active Hydrocortisone Acetate 25 MG Rectal Suppository [...] Sleep Disorder Resea [facility] Other*[id number] 03/02/2012 11/01/2015 Tobacco use disorder 11/20/2011 014 [...] P R, 30MCG/0.3ML, IM, 12YRS AND ABOVE ([facility]) 12/17/2023 COVID-19, MRNA-LNP, PF, 30 [...] Passive Smoke Exposure: Current Smokeless Tobacco: Never Tobacco Cessation:Counseling Given: Not Answered Comments:started age 32, quit 2012 Alcohol Use Standard Drinks/Week Comments No [...] on file documented as of this encounter Last Filed Vital Signs Vital Sign Reading Time Taken Comments Blood Pressure 110/76 06/22/2024 10:55 AM EDT Pulse 95 06/22/2024 10:55 AM EDT Temperature 36.7 °C (98 °F) 06/22/2024 10:55 AM EDT Respiratory Rate 18 06/22/2024 10:55 AM EDT Oxygen Saturation 96% 06/22/2024 10:55 AM EDT Inhaled Oxygen Concentration - - Weight - - Height 165.1 cm (5' 5") 06/22/2024 10:55 AM EDT Body Mass Index - - documented in this encounter Progress Notes * Paula Pan PA-C - 06/22/2024 11:01 AM EDT Images from the original note were not included. Subjective [place] Mercado is a 73 year old female that presents for Acute (Pt states that she has been having a earache, fever, and running nose, she states that it has been on and off.) Here for multiple issues She sees psychiatry and her doc is on maternity leave until My. She is the one who prescribes her oxcarbazepine. Ivy has called and they apparently told her that pcp should prescribe med in her absence. She does want to move her medications to the [facility] as they will deliver and put themin blister packs for her. Was in at the end fo May for uri. Had been on 2 weeks of abx at that time and no better. Given 10 cooley of Augmentin ans steroid This did not open anything up. She is using her inhalers and they help as does the neb. She reports that fevers went away and have returned. They returned yesterday when the nurse was there . Today has no fever She feels rotten today She just does not feel good Has no energy, lethargic Took her pills this morning Has had toast + sob. Cough - this is the same cough she always has She is coughing up phlegm She is taking up mucinex Phlegm is thick Sometimes it is clear Other times it is yellow Her R ear is sore - she points to behind her ear and the lobe + headaches Pt really does not go out but has numerous aides that come into the home. Saw cardiology in April. Past Medical History: Diagnosis Date ADJ DISORDER W/DEPRES MOOD 07/15/2002 Asthma exacerbation in COPD 07/15/2002 Atherosclerosis of aorta ([facility]) 11/19/2017 Bipolar 2 disorder ([facility]) 07/01/2018 Bipolar I disorder, most recent episode depressed ([facility]) Bipolar Affective Disorder Depressed-Unspecified Chronic frontal sinusitis 01/07/2018 Chronic sinusitis 2007 COPD (chronic obstructive pulmonary disease) ([facility]) COPD, moderate ([facility]) 06/11/2011 DM type 2, not at goal ([facility]) Diabetes Type II, Uncontrolled Dyslipidemia, goal LDL below 160 Hypercholesterolemia Emphysema, unspecified ([facility]) Gastric ulcer Gastroesophageal reflux disease without esophagitis 12/09/2019 HTN, goal below 130/80 01/31/2021 HTN, goal below 140/90 Hypertension, benign Lung nodule Morbid obesity with BMI of 45.0-49.9, adult ([facility]) 08/24/2017 PAF (paroxysmal atrial fibrillation) ([facility]) 01/03/2013 Post traumatic stress disorder Presbyacusis 2006 RBBB (right bundle branch block) 06/26/2017 Sensorineural hearing loss, bilateral 2007 Sequelae, post-stroke CVA Sleep apnea, obstructive 03/02/2012 CPAP 12 cwp 05/26/12 Nocturnal ox CPAP 6 cwp / RA -- low 82%, mean 94%, <89% 9 mins, DORIS 3.5 04/15/12 -- new CPAP at 6 cwp Dx 1993 AHP Doxycycline Hyclate 100 MG Oral Capsule OXcarbazepine 150 MG Oral Tablet (Trileptal) Sucralfate 1 GM Oral Tablet (Carafate) metFORMIN HCl 1000 MG Oral Tablet (Glucophage) Trelegy Ellipta 100-62.5-25 MCG/ACT Aerosol Powder Breath Activated Famotidine 20 MG Oral Tablet (Pepcid) Metoprolol Succinate ER 100 MG Oral Tablet Extended Release 24 Hour (toPROL XL) Montelukast Sodium 10 MG Oral Tablet (Singulair) Pregabalin 50 MG Oral Capsule (Lyrica) Atorvastatin Calcium 40 MG Oral Tablet (Lipitor) Pantoprazole Sodium 40 MG Oral Tablet Delayed Release (Protonix) Eliquis 5 MG Oral Tablet (Apixaban) Digoxin 125 MCG Oral Tablet (Lanoxin) Triamcinolone Acetonide 0.1 % External Cream (Aristocort) Torsemide 20 MG Oral Tablet (Demadex) traMADol HCl 50 MG Oral Tablet (Ultram) Ipratropium [place] 0.03 % Nasal Solution (Atrovent) Prazosin HCl 1 MG Oral Capsule (Minipress) Potassium Citrate ER 10 MEQ (1080 MG) Oral Tablet Extended Release (potassium citrate-10) HumuLIN R U-500 KwikPen 500 UNIT/ML Solution Pen-injector Diclofenac Sodium 1 % External Gel (Voltaren) Nystatin 505707 UNIT/GM External Powder (Nystop) Nystatin-Triamcinolone 927854-0.1 UNIT/GM-% External Cream (Mycolog) Tamsulosin HCl 0.4 MG Oral Capsule (Flomax) BD Pen Needle Isamar 2nd Gen 32G X 4 MM Acetaminophen 325 MG Oral Capsule Albuterol Sulfate HFA 108 (90 Base) MCG/ACT Inhalation Aerosol Solution CiiNOW w/Device Kit CiiNOW In Vitro Strip (Glucose Blood) Levalbuterol HCl 0.63 MG/3ML Inhalation Nebulization Solution (Xopenex) Saccharomyces boulardii 250 MG Oral Capsule (Florastor) CPAP Nebulizer/Tubing/Mouthpiece Kit Triamcinolone Acetonide 55 MCG/ACT Nasal Aerosol Co Q 10 10 MG Oral Capsule Biotin 1 MG Oral Capsule Lactobacillus (PROBIOTIC ACIDOPHILUS) TABS Xwjppocmvxg-Dvnpcivmiei-ZDI-D3 TABS Loratadine 10 MG Cap Glucose Blood (ONETOUCH VERIO) STRP ONETOUCH ULTRASOFT LANCETS MISC Bisacodyl 5 MG Oral Tablet Delayed Release levalbuterol (XOPENEX HFA) 45 MCG/ACT inhaler Insulin Syringe 31G X 5/16" 0.5 ML MISC clobetasol propionate (TEMOVATE) 0.05 % cream Magnesium 400 MG Capsule B COMPLEX-FOLIC ACID PO CAPS CINNAMON 500 MG PO CAPS CRANBERRY JUICE EXTRACT 1000 MG PO CAPS EQ ARTHRITIS PAIN 650 MG PO TBCR MUCINEX 600 MG PO TB12 OMEGA 3-6-9 FATTY ACIDS PO CAPS ONE-A-DAY WOMENS PO TABS INSULIN SYRINGES (DISP) 1ML U-100 MISC Objective BP 110/76 | Pulse 95 | Temp 98 °F (36.7 °C) (Tympanic) | Resp 18 | Ht 5' 5" (1.651 m) | SpO2 96% | BMI 53.82 kg/m² | BSA 2.59 m² BP Readings from Last 3 Encounters: 06/22/24 110/76 06/03/24 108/54 05/11/24 110/70 Wt Readings from Last 3 Encounters: 06/03/24 (!) 323 lb 6.4 oz (146.7 kg) 03/29/24 (!) 325 lb (147.4 kg) 03/16/24 (!) 317 lb 6.4 oz (144 kg) BMI Readings from Last 3 Encounters: 06/22/24 53.82 kg/m² 06/03/24 53.82 kg/m² 03/29/24 54.08 kg/m² Ht Readings from Last 3 Encounters: 06/22/24 5' 5" (1.651 m) 03/29/24 5' 5" (1.651 m) 03/16/24 5' 5" (1.651 m) General: alert, ill looking, obese, pale, and visible respiratory effort Head: Normocephalic, No masses, lesions, tenderness or abnormalities Eye Exam: PERRLA, extraocular movements intact, conjunctiva are pink and non- injected, sclera clear Ears: External ears normal, Canals clear, TM's Normal Nose: no mucosal erythema, no mucosal edema, no purulent discharge Oropharynx: no exudate, no erythema, lips, buccal mucosa, and tongue normal, and mucous membranes are moist Neck: supple, no adenopathy, no bruits, thyroid normal size, non-tender, without nodularity Heart: regular rate & rhythm, no gallops, S-1 normal, and S-2 normal Lungs: chest symmetric with normal AP diameter, no chest deformities noted, no chest wall tenderness, rhonchi R base, otherwise ctab Assessment and Plan Screening for depression Orders: DEPRESSION SCREENING PERFORMED Bipolar 2 disorder ([facility]) Orders: OXcarbazepine 150 MG Oral Tablet (Trileptal); Take 1 Tablet by mouth in the morning. Type 2 diabetes mellitus with hemoglobin A1c goal of less than 7.0% ([facility]) Orders: VITAMIN B12; Future COMPREHENSIVE METABOLIC PANEL; Future HEMOGLOBIN A1C; Future Chronic kidney disease, stage 3a ([facility]) Orders: PHOSPHORUS; Future COMPREHENSIVE METABOLIC PANEL; Future Fever, unspecified fever cause Orders: XR CHEST 2 VIEWS; Future CBC WITH WBC DIFFERENTIAL; Future SOB (shortness of breath) Orders: XR CHEST 2 VIEWS; Future CBC WITH WBC DIFFERENTIAL; Future D-DIMER; Future BNP, NT-PRO; Future Cough, unspecified type Orders: XR CHEST 2 VIEWS; Future CBC WITH WBC DIFFERENTIAL; Future D-DIMER; Future BNP, NT-PRO; Future Pneumonia of right lower lobe due to infectious organism Orders: XR CHEST 2 VIEWS; Future Doxycycline Hyclate 100 MG Oral Capsule; Take 1 Capsule by mouth in the morning and 1 Capsule before bedtime. Do all this for 10 days. Until gone.. Wrap-Up Check-out note: Pt got new insurance card - needs to gie at check out Suspect pnx X[facility] Start abx - doxy I spent a total of 20-29 minutes (exact time 28 mins) on the date of service in preparation, delivery, and documentation of the care provided to Tiffanie Mercado excluding any time spent in the performance of separately billed services. Rev with patient - we can short term prescribe her medication but we are NOT TAKING OVER HER PSYCH MEDICATION. Will cover until she returns in August. Paula Pan PA-C 06/22/2024 11:28 AM documented in this encounter Miscellaneous Notes * Assessment & Plan Note - Paula Pan PA-C - 06/22/2024 11:28 AM EDT Associated Problem(s): Bipolar 2 disorder (HCC) Orders: OXcarbazepine 150 MG Oral Tablet (Trileptal); Take 1 Tablet by mouth in the morning. * Assessment & Plan Note - Palua Pan PA-C - 06/22/2024 11:28 AM EDT Associated Problem(s): Chronic kidney disease, stage 3a (HCC) Orders: PHOSPHORUS; Future COMPREHENSIVE METABOLIC PANEL; Future documented in this encounter Plan of Treatment Upcoming Encounters Date Type Department Care Team (Late st Contact Info) Description 07/05/2024 2:00 PM EDT [place] [facility] [address] [facility] [place] [phone] Paula Pan PA-C [address] [facility] [place] [address] 07/05/2024 2:40 PM EDT Office Visit Pharmacy, Shiela Ramirez [address] [place] [phone] Shiel[facility] [address] [place] [address] [place] [address] 09/22/2024 9:30 AM EDT [place] [facility] [address] [place] [phone] Sabine Mosley DO [address] [place] [address] 10/18/2024 1:30 PM EDT Office Visit Cardiology, [facility] [address] [place] [phone] Danica Grider CRNP [address] [place] [phone] Pending Results Name Type Priority Associated Diagnoses Date /Time VITAMIN B12 Lab Routine Type 2 diabetes mellitus with hemoglobin A1c goal of less than 7.0% ([facility]) 06/22/2024 11:54 AM EDT PHOSPHORUS Lab Routine Chronic kidney disease, stage 3a ([facility]) 06/22/2024 11:54 AM EDT CBC WITH WBC DIFFERENTIAL Lab Routine Fever, unspecified fever cause SOB (shortness of breath) Cough, unspecified type 06/22/2024 11:54 AM EDT D-DIMER Lab Routine SOB (shortness of breath) Cough, unspecified type 06/22/2024 11:54 AM EDT BNP, NT-PRO Lab Routine SOB (shortness of breath) Cough, unspecified type 06/22/2024 11:54 AM EDT Scheduled Orders Name Type Priority Associated Diagnoses Orde r Schedule VITAMIN B12 Lab Routine Type 2 diabetes mellitus with hemoglobin A1c goal of less than 7.0% ([facility]) Expected: 06/22/2024 (Approximate), Expires: 06/22/2025 PHOSPHORUS Lab Routine Chronic kidney disease, stage 3a ([facility]) Expected: 06/22/2024 (Approximate), Expires: 06/22/2025 CBC WITH WBC DIFFERENTIAL Lab Routine Fever, unspecified fever cause SOB (shortness of breath) Cough, unspecified type Expected: 06/22/2024 (Approximate), Expires: 06/22/2025 D-DIMER Lab Routine SOB (shortness of breath) Cough, unspecified type Expected: 06/22/2024 (Approximate), Expires: 06/22/2025 BNP, NT-PRO Lab Routine SOB (shortness of breath) Cough, unspecified type Expected: 06/22/2024 (Approximate), Expires: 06/22/2025 Health Maintenance Due Date Last Done Comments [...] Additional history exists CKD PHOS USE SMARTSET 23942 05/13/2024 05/13/2023 HbA1c 07/14/2024 01/14/2024, 2 06/2023, 04/17/2023, Additional history exists Cologuard 08/30/2024 08/30/2021, 08/05, 08/25/2021, Additional history exists Colorectal Cancer Screening 08/30/2024 Albumin/Creatinine Ratio 02/11/2025 024, 01/23/2024, 09/22/2022, Additional history exists CKD HGB USE SMARTSET 54298 04/22/202504/22, 04/22/2024, 04/17/2023, Additional history exists DIG [...] Not on filedocumented as of this encounter Results * XR CHEST 2 VIEWS (06/22/2024 11:47 AM EDT) Anatomical Region Laterality Modality Chest Digital Radiogra phy 06/22/2024 11:5 8 AM EDT Impressions 06/22/2024 11:56 AM EDT IMPRESSION Indistinct airspace opacity in the lingula, suspicious for pneumonia. Narrative 06/22/2024 11:56 AM EDT EXAM XR CHEST 2 VIEWS-06/22/2024 11:47 am HISTORY fever, sob, cough COMPARISON Chest CT dated 09/10/2023 and chest radiograph dated 07/07/2018 TECHNIQUE PA and lateral views of the chest were obtained FINDINGS LINES/DEVICES: None. LUNGS/PLEURA: Indistinct airspace opacities in the lingula, which are not seen on the prior studies and are suspicious for pneumonia. No pleural effusion or pneumothorax. CARDIOVASCULAR/MEDIASTINUM: Enlargement of the cardiomediastinal silhouette, which is unchanged since 2023. OTHER: Unremarkable upper abdomen. No acute osseous abnormality. Procedure Note Mitch Glez MD - 06/22/2024 EXAM XR CHEST 2 VIEWS-06/22/2024 11:47 am HISTORY fever, sob, cough COMPARISON Chest CT dated 09/10/2023 and chest radiograph dated 07/07/2018 TECHNIQUE PA and lateral views of the chest were obtained FINDINGS LINES/DEVICES: None. LUNGS/PLEURA: Indistinct airspace opacities in the lingula, which are notseen on the prior studies and are suspicious for pneumonia. No pleuraleffusion or pneumothorax. CARDIOVASCULAR/MEDIASTINUM: Enlargement of the cardiomediastinalsilhouette, which is unchanged since 2023. OTHER: Unremarkable upper abdomen. No acute osseous abnormality. IMPRESSION IMPRESSION Indistinct airspace opacity in the lingula, suspicious for pneumonia. us Paula aPn PA-C RADIOLOGY ([facility]) F inal Result documented in this encounter Visit Diagnoses Diagnosis Bipolar 2 disorder (HCC)- Primary Other bipolar disorders Screening for depression Type 2 diabetes mellitus with hemoglobin A1c goal of less than 7.0% (HCC) Chronic kidney disease, stage 3a (HCC) Fever, unspecified fever cause SOB (shortness of breath) Shortness of breath Cough, unspecified type Pneumonia of right lower lobe due to infectious organism Fever, unspecified fever cause SOB (shortness of breath) Shortness of breath Cough, unspecified type Pneumonia of right lower lobe due to infectious organism documented in this encounter Care Teams Production Support Engineer Relationship Specialty Start Date End Date Paula Pan PA-C [facility] [place] [phone] PCP - General Physician Health Commissioner 04/14/24 documented as of this encounter
--- OUTSIDE RECORDS SUMMARY | 2024-07-03 20:44 | External Medical Summary ---
Author Name Unknown Address Unknown Organization [id number]:LABORATORY [facility] [place] - [address] [place] [address] Laboratory Report Ordering Provider Test Date Status JAYSON FUENTES 06/22/2024 11:54:23 Final Observation Date Value Abnormality Reference (Units ) Status Ovalocytes [Presence] in Blood by Light microscopy 06/22/2024 11:54:23 Moderate Abnormal None Seen Final Performing Location LABORATORY [facility] - [address] [place] [address]
--- OUTSIDE RECORDS SUMMARY | 2024-07-03 20:44 | External Medical Summary ---
Author Name Unknown Address Unknown Organization [id number][place] [place] [address] [facility] [address] Laboratory Report Ordering Provider Test Date Status JAYSON FUENTES 06/22/2024 11:54:23 Final Observation Date Value Abnormality Reference (Units ) Status SYNC LEUKOCYTES IN BLOOD BY AUTOMATED COUNT 06/22/2024 11:54:23 9.82 4.00-10.80 (K/uL) Final Segs 06/22/2024 11:54:23 62.0 40.0-75.0 (%) Final Lymphs % 06/22/2024 11:54:23 27.4 18.0-42.0 (%) Final Monos 06/22/2024 11:54:23 7.5 1.0-11.0 (%) Final Eosinophils 06/22/2024 11:54:23 1.7 0.0-6.0 (%) Final Basos 06/22/2024 11:54:23 0.7 0.0-2.0 (%) Final Immature Granulocyte, Percent 06/22/2024 11:54:23 0.7 0.0-2.0 (%) Final Absolute Segs 06/22/2024 11:54:23 6.08 1.80-7.70 (K/uL) Final Lymphs, absolute 06/22/2024 11:54:23 2.69 1.00-4.80 (K/ul) Final Monos, Abs 06/22/2024 11:54:23 0.74 0.00-1.10 (K/uL) Final Eos, Abs 06/22/2024 11:54:23 0.17 0.00-0.70 (K/uL) Final Basos, Abs 06/22/2024 11:54:23 0.07 0.00-0.20 (K/uL) Final Immature Granulocytes, Number 06/22/2024 11:54:23 0.07 0.00-0.20 (K/uL) Final Performing Location [facility] [facility] [place] [facility] [place] [address]
--- OUTSIDE RECORDS SUMMARY | 2024-07-03 20:44 | External Medical Summary ---
Author Name Unknown Address Unknown Organization [id number]:[facility] [place] [address] [place] [address] Laboratory Report Ordering Provider Test Date Status JAYSON FUENTES 06/22/2024 11:54:23 Final Observation Date Value Abnormality Reference (Units ) Status Vitamin B12 06/22/2024 11:54:23 1634 Above high normal 232-1245 (pg/mL) Final Performing Location LABORATORY C - [address] [place] [address]
--- OUTSIDE RECORDS SUMMARY | 2024-07-03 20:44 | External Medical Summary ---
Author Name Unknown Address Unknown Organization K01:LABORATORY [facility] [place] - [address] [facility] [address] Laboratory Report Ordering Provider Test Date Status JAYSON FUENTES 06/22/2024 11:54:23 Final Observation Date Value Abnormality Reference (Units ) Status BUN 06/22/2024 11:54:23 20 6-20 (mg/dL) Final Creatinine 06/22/2024 11:54:23 0.9 0.5-1.0 (mg/dL) Final Glomerular filtration rate/1.73 sq M.predicted [Volume Rate/Area] in Serum, Plasma or Blood by Creatinine-based formula (CKD-EPI) 06/22/2024 11:54:23 70 >=60 (mL/min) Final eGFR is calculated based on the CKD-EPI 2020 equation. Sodium 06/22/2024 11:54:23 142 135-146 (m mol/L) Final Potassium 06/22/2024 11:54:23 4.8 3.5-5.1 (m mol/L) Final Cl 06/22/2024 11:54:23 104 98-107 (mm ol/L) Final CO2 06/22/2024 11:54:23 25 22-32 (mmo l/L) Final Anion gap 06/22/2024 11:54:23 13 7-15 (mmol /L) Final Glucose 06/22/2024 11:54:23 255 Above high normal 70 -120 (mg/dL) Final Albumin 06/22/2024 11:54:23 4.0 3.8-5.0 (g /dL) Final AST (Aspartate aminotransferase) 06/22/2024 11:54:23 22 10-35 (U/L) Fin al Alk Phos 06/22/2024 11:54:23 105 35-130 (U/ L) Final Bilirubin, Total 06/22/2024 11:54:23 0.6 <=1 .2 (mg/dL) Final Calcium 06/22/2024 11:54:23 9.8 8.4-10.2 ( mg/dL) Final Protein 06/22/2024 11:54:23 6.9 6.0-8.3 (g /dL) Final ALT (Alanine aminotransferase) 06/22/2024 11:54:23 27 10-35 (U/L) Jalil horta Performing Location LABORATORY [facility] [place] - [address] [facility] [address]
--- OUTSIDE RECORDS SUMMARY | 2024-07-03 20:44 | External Medical Summary ---
Author Name Unknown Address Unknown Organization K01:LABORATORY [facility] [place] - [facility] [address] [facility] [place] [place] [address] Laboratory Report Ordering Provider Test Date Status JAYSON FUENTES 06/22/2024 11:54:23 Final Observation Date Value Abnormality Reference (Units ) Status WBC, Total 06/22/2024 11:54:23 9.82 4.00-10.80 (K/uL) Final RBC 06/22/2024 11:54:23 4.22 3.85-5.15 (M/uL) Final Hemoglobin 06/22/2024 11:54:23 10.2 Below low normal 12.0-15.3 (g/dL) Final HCT 06/22/2024 11:54:23 36.4 36.0-45.2 (%) Final MCV 06/22/2024 11:54:23 86.3 81.5-97.5 (fL) Final MCH 06/22/2024 11:54:23 24.2 27.0-34.0 (pg) Final MCHC 06/22/2024 11:54:23 28.0 32.0-36.0 (g/dL) Final RDW 06/22/2024 11:54:23 21.1 11.5-15.5 (%) Final Platelets 06/22/2024 11:54:23 148 140-400 (K/uL) Final MPV 06/22/2024 11:54:23 11.9 6.6-11.1 (fL) Final Nucleated erythrocytes/100 leukocytes [Ratio] in Blood by Automated count 06/22/2024 11:54:23 0 <=0 (/100 WBCs) Final Performing Location LABORATORY [facility] – [place] - [address] [place] [address]
--- OUTSIDE RECORDS SUMMARY | 2024-07-03 20:44 | External Medical Summary ---
Author Name Unknown Address Unknown Organization K01:[facility] - [address] [place] [address] Laboratory Report Ordering Provider Test Date Status ALFREDODENISEJD 06/22/2024 11:54:23 Final Observation Date Value Abnormality Reference (Units ) Status Phosphate 06/22/2024 11:54:23 4.2 2.5-4.8 (m g/dL) Final Performing Location [facility] - [address] [place] [address]
--- OUTSIDE RECORDS SUMMARY | 2024-07-03 20:44 | External Medical Summary | Summary of Care ---
Author Name Unknown Organization [facility] Address [address] [place] [address] Phone [phone] Care Team Providers Care Senior Research Associate Name Role Phone Paula Pan PA-C Primary Care Provider [phone] Reason for Visit * Reason Comments Outpatient Testing Encounter Details Date Type Department Care Team (Late st Contact Info) Description 06/22/2024 12:00 PM EDT Laboratory Laboratory, [facility] [address] [place] [id number] [facility] [address] [place] [address] Type 2 diabetes mellitus with hemoglobin A1c goal of less than 8.0% ([facility]); Type 2 diabetes mellitus with hemoglobin A1c goal of less than 7.0% ([facility]); Chronic kidney disease, stage 3a ([facility]); Fever, unspecified fever cause; SOB (shortness of [...] 06/22/2024) Medications INSULIN SYRINGES (DISP) 1ML U-100 MISCIndications:DM [...] by mouth in the morning. Active Glucosamine-Chondr gntto-SKG-N2 TABS Take 1 Tab by mouth daily. [...] B, by GOLD 2017 classification ([facility]) Inhale 2 Puffs by mouth every 6 hours as needed for Cough, Shortness of Breath or Wheezing. 18 g 2 4 Active Acetaminophen 325 MG Oral Capsule Take by mouth. Active BD Pen Needle Isamar 2nd Gen 32G X 4 MMIndications:Type 2 diabetes mellitus with hemoglobin A1c goal of less than 7.0% ([facility]) Use to inject insulin four times daily E11.9 200 Each 3 4 Active Tamsulosin HCl 0.4 MG Oral Capsule (Flomax) Take 1 Capsule by mouth in the morning. 90 Capsule 3 4 Active Nystatin 868861 UNIT/GM External Powder (Nystop)Indication s:Melissa rash of groin APPLY 0.5 GRAM TO THE GROIN TWICE DAILY IN THE MORNING AND THE EVENING. 180 g 1 4 Active Nystatin-Triamcino lone 455211-7.1 UNIT/GM-% External Cream (Mycolog)Indicatio ns:Melissa rash of groin APPLY TOPICALLY TO THE AFFECTED AREA TWICE DAILY FOR 14 DAYS. 60 g 1 4 Active Diclofenac Sodium 1 % External Gel (Voltaren) Apply topically to affected area 2 times a day. Apply to painful joints 100 g 3 4 Active HumuLIN R U-500 KwikPen 500 UNIT/ML Solution Pen-injectorIndica tions:Type 2 diabetes mellitus with hemoglobin A1c goal of less than 8.0% (HCC) Inject 100 units with meals and bedtime snack if blood glucose <200 and inject 120 units with meals and bedtime snack if blood glucose >=200. 90 mL 5 4 Active Potassium Citrate ER 10 MEQ (1080 MG) Oral Tablet Extended Release (potassium citrate-10) Take 1 Tablet by mouth in the morning and 1 Tablet before bedtime. 180 Tablet 3 4 Active Prazosin HCl 1 MG Oral Capsule (Minipress)Indicat ions:Vivid dream Take 1 Capsule by mouth at bedtime. 30 Capsule 5 4 Active Ipratropium [place] 0.03 % Nasal Solution (Atrovent) ADMINISTER 2 SPRAYS INTO NOSTRIL IN THE MORNING AND 2 SPRAYS BEFORE BEDTIME. 90 mL 4 4 Active traMADol HCl 50 MG Oral Tablet (Ultram)Indication s:Hip pain, left Take 1 Tablet by mouth at bedtime as needed for Pain, Severe. 15 Tablet 4 Active Torsemide 20 MG Oral Tablet (Demadex)Indicatio ns:Chronic diastolic heart failure (HCC) Take 2 Tablets by mouth in the morning. 180 Tablet 1 4 Active Triamcinolone Acetonide 0.1 % External Cream (Aristocort)Indica tions:Hand dermatitis Apply topically to affected area 2 times a day. To affected area. 80 g 5 4 Active Digoxin 125 MCG Oral Tablet (Lanoxin) TAKE 1 TABLET BY MOUTH EVERY DAY IN THE MORNING 90 Tablet 5 Active Eliquis 5 MG Oral Tablet (Apixaban)Indicati ons:PAF (paroxysmal atrial fibrillation) ([facility]),Cerebrovascu lar disease, arteriosclerotic, post-stroke TAKE 1 TABLET BY MOUTH TWICE A DAY 180 Tablet 5 Active Atorvastatin Calcium 40 MG Oral Tablet (Lipitor)Indicatio ns:Dyslipidemia, goal LDL below 70 TAKE 1 TABLET BY MOUTH EVERY DAY 90 Tablet 3 5 Active Pantoprazole Sodium 40 MG Oral Tablet Delayed Release (Protonix)Indicati ons:Gastroesophage al reflux disease without esophagitis TAKE 1 TABLET BY MOUTH EVERY DAY 90 Tablet 3 5 Active Metoprolol Succinate ER 100 MG Oral Tablet Extended Release 24 Hour (toPROL XL) TAKE 1 TABLET BY MOUTH IN THE MORNING AND BEFORE BEDTIME 180 Tablet 2 5 Active Famotidine 20 MG Oral Tablet (Pepcid) TAKE 1 TABLET BY MOUTH EVERY DAY IN THE MORNING 90 Tablet 1 5 Active Montelukast Sodium 10 MG Oral Tablet (Singulair)Indicat ions:Chronic rhinitis TAKE 1 TABLET BY MOUTH EVERY DAY IN THE MORNING 90 Tablet 2 5 Active Pregabalin 50 MG Oral Capsule (Lyrica)Indication s:Primary osteoarthritis of both hips,Hip pain, right,Degeneration 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 60 Capsule 1 5 Active Trelegy Ellipta 100-62.5-25 MCG/ACT Aerosol Powder Breath ActivatedIndicatio ns:COPD, group B, by GOLD 2017 classification ([facility]) INHALE 1 PUFF BY MOUTH IN THE MORNING 180 Each 3 5 Active metFORMIN HCl 1000 MG Oral Tablet (Glucophage)Indica tions:Type 2 diabetes mellitus with hemoglobin A1c goal of less than 7.0% ([facility]) Take 1 Tablet by mouth in the morning and 1 Tablet before bedtime. 180 Tablet 1 5 Active Sucralfate 1 GM Oral Tablet (Carafate)Indicati ons:Upset stomach One tab by mouth up to 4 times a day as needed for acid reflux or upset stomach 360 Tablet 5 Active OXcarbazepine 150 MG Oral Tablet (Trileptal)Indicat ions:Bipolar 2 disorder ([facility]) Take 1 Tablet by mouth in the morning. 30 Tablet 1 5 Active Doxycycline Hyclate 100 MG Oral CapsuleIndications :Pneumonia of right lower lobe due to infectious organism Take 1 Capsule by mouth in the morning and 1 Capsule before bedtime. Do all this for 10 days. Until gone.. 20 Capsule 5 025 Active documented as of this encounter (statuses [...] colitis 12/09/2012 017 Genetic Sleep Disorder [facility] Other*[id number] 03/02/2012 11/01/2015 Tobacco use disorder 11/20/2011 014 [...] CVA 07/02/2004 07/20/2008 Overview (07/20/2008): Modified per [facility] protocol #8 Asthma exacerbation in COPD [...] P R, 30MCG/0.3ML, IM, 12YRS AND ABOVE (eNovance-Comirnaty) 12/17/2023 COVID-19, MRNA-LNP, PF, 30 M CG/0.3 [...] Practice, [facility] [address] [place] [phone] Paula Pan PA-C [address] [place] [address] 07/05/2024 2:40 PM EDT Office Visit Pharmacy, [facility] Balderas [facility] [address] [phone] [facility] [address] [place], [place] [address] [address] 09/22/2024 9:30 AM EDT Office Visit Family Practice, [facility] [address] [place] [phone] Sabine Mosley DO [address] [address] 10/18/2024 1:30 PM EDT Office Visit Cardiology, [facility] [address] [place] [address] Danica Grider CRNP [address] [address] Pending Results Name Type Priority Associated Diagnoses Date /Time COMPREHENSIVE METABOLIC PANEL Lab Routine Type 2 diabetes mellitus with hemoglobin A1c goal of less than 8.0% ([facility]) 06/22/2024 11:54 AM EDT HEMOGLOBIN A1C Lab Routine Type 2 diabetes mellitus with hemoglobin A1c goal of less than 8.0% ([facility]) 06/22/2024 11:54 AM EDT VITAMIN B12 Lab Routine Type 2 diabetes mellitus with hemoglobin A1c goal of less than 7.0% ([facility]) 06/22/2024 11:54 AM EDT PHOSPHORUS Lab Routine Chronic kidney disease, stage 3a ([facility]) 06/22/2024 11:54 AM EDT CBC WITH WBC DIFFERENTIAL Lab Routine Fever, unspecified fever cause SOB (shortness of breath) Cough, unspecified type 06/22/2024 11:54 AM EDT D-DIMER Lab Routine SOB (shortness of breath) Cough, unspecified type 06/22/2024 11:54 AM EDT BNP, NT-PRO Lab Routine SOB (shortness of breath) Cough, unspecified type 06/22/2024 11:54 AM EDT CBC Lab Routine Fever, unspecified fever cause SOB (shortness of breath) Cough, unspecified type 06/22/2024 11:54 AM EDT DIFFERENTIAL, AUTOMATED Lab Routine Fever, unspecified fever cause SOB (shortness of breath) Cough, unspecified type 06/22/2024 11:54 AM EDT Health Maintenance Due Date Last Done [...] 12/30/2021, Additional history exists GFR 02/27/2024 08/27/2023, 10/2023, 04/22/2023, Additional history exists Mammogram 03/26/2024 03/26/2023, 03/06, 02/11/2021, Additional history exists B-12 04/22/2024 04/22/2023, 05/07, 04/29/2021, Additional history exists CKD PHOS USE SMARTSET 19450 05/13/2024 05/13/2023 HbA1c 07/14/2024 01/14/2024, 07/06, 04/17/2023, Additional history exists Cologuard 08/30/2024 08/30/2021, 08/05, 08/25/2021, Additional history exists Colorectal Cancer Screening 08/30/2024 Albumin/Creatinine Ratio 02/11/2025 024, 01/23/2024, 09/22/2022, Additional history exists CKD HGB USE SMARTSET 26201 04/22/202504/22, 04/22/2024, 04/17/2023, Additional history exists DIG [...] type documented in this encounter Care Teams Senior Research Associate Relationship Specialty Start Date End Date Paula Pan PA-C [address] [facility] [place] [address] PCP - General Physician Retail Associate Manager Bilingual 04/14/24 documented as of this encounter
--- OUTSIDE RECORDS SUMMARY | 2024-07-03 20:44 | External Medical Summary | Summary of Care ---
Author Name Unknown Organization [facility] Address [address] [place] [address] Phone [phone] Care Team Providers Care Public Policy Manager Name Role Phone Paula Pan PA-C Primary Care Provider [phone] Reason for Referral * Evaluate & Treat - Unlimited Visits (Within 3 days (urgent)) - Authorized Specialty Diagnoses / Procedures Referred By Contact Referred To Contact GI NUTRITION/IM / Gastroenterology Diagnoses Primary osteoarthritis of one hip, right Obesity, unspecified Gissel Landeros, [address] [address] Phone: tel:[phone] fax:[phone] Referral ID Status Reason Start Date Expiration Date Visits Requested Visits Authorized [id number] Authorized Specialty Services Required 06/16/2024 999 999 Question Answer Referral Priority Within 3 days (urgent) Where should this appointment be scheduled? [facility] For what condition is the patient being seen? Weight Loss Medication Is this referral for a GLP1 medication? No Comments THE PATIENT WILL NOT BE PRESCRIBED GLP-1 MEDICATIONS UNLESS: *Documentation of an unsuccessful trial of losing at least 5% of weight loss *Documentation the patient has had tried and failed two [2] non-GLP1 agonists (Phentermine and Wellbutrin/ Naltrexone) *Documentation of two [2] or more appointments discussing weight loss and lifestyle changes *Documentation of a blood pressure and weight within the EMR before initiation of the GLP-1 or non-GLP-1 medications REFERRING PROVIDER MUST ACKNOWLEDGE ALL OF THE CONDITIONS ABOVE ARE MET AND HAVE A BMI >35. IF THESE CONDITIONS ARE NOT MET THE PATIENT WILL NOT BE PRESCRIBED GLP- 1 PRESCRIPTIONS. Encounter Details Date Type Department Care Team (Late st Contact Info) Description 06/16/2024 Orders Only Access Center, [place] [facility] [address] [place] [address] Av Ext *DO NOT REMOVE THIS DEPARTMENT* [place] [id number] Request, External Referral Primary osteoarthritis of one hip, right*; Obesity, unspecified Allergies Active Allergy Reactions Criticality Noted Date Comments Adhesive Tape 11/04/2017 sensitivity Cephalosporins Unknown 09/08/2000 Clarithromycin Rash 09/08/2000 Clobetasol Unknown 02/17/2022 Sulfa Antibiotics High 09/08/2000 Unknown Other Reaction(s): "Sulfa Drugs = rash" Terconazole 09/09/2002 terazol - made her itchy documented as of this encounter (statuses as of 06/16/2024) Medications INSULIN SYRINGES (DISP) 1ML U-100 MISCIndications:DM [...] by mouth in the morning. Active Glucosamine-Chondr ohhtl-BQL-Z6 TABS Take 1 Tab by mouth daily. [...] Wheezing. 1080 mL 5 05/15/19 23 Active Hydrocortisone Acetate 25 MG Rectal Suppository (Anusol-HC) Administer 1 Suppository into the rectum in the morning and 1 Suppository before bedtime. As directed.. 12 Suppository 09/27/19 23 Active Additional Information Patient not taking.Reported on 06/03/2024 OneTouch Verio In Vitro Strip (Glucose Blood) Use up to 4 times a day E11.9 100 Strip 11 11/18/19 23 Active OneTouch Verio w/Device Kit Use up to 3 times a day E11.9 1 Kit 11/21/19 23 Active Albuterol Sulfate HFA 108 (90 Base) MCG/ACT Inhalation Aerosol SolutionIndication s:COPD, group B, by GOLD 2017 classification ([facility]) Inhale 2 Puffs by mouth every 6 hours as needed for Cough, Shortness of Breath or Wheezing. 18 g 2 07/04/19 24 Active Acetaminophen 325 MG Oral Capsule Take by mouth. Active BD Pen Needle Isamar 2nd Gen 32G X 4 MMIndications:Type 2 diabetes mellitus with hemoglobin A1c goal of less than 7.0% ([facility]) Use to inject insulin four times daily E11.9 200 Each 3 09/08/19 24 Active Tamsulosin HCl 0.4 MG Oral Capsule (Flomax) Take 1 Capsule by mouth in the morning. 90 Capsule 3 09/21/19 24 Active OXcarbazepine 150 MG Oral Tablet (Trileptal) Take 1 Tablet by mouth in the morning. 09/16/19 24 Active Nystatin 449992 UNIT/GM External Powder (Nystop)Indication s:Melissa rash of groin APPLY 0.5 GRAM TO THE GROIN TWICE DAILY IN THE MORNING AND THE EVENING. 180 g 1 12/01/19 24 Active Nystatin-Triamcino lone 926364-5.1 UNIT/GM-% External Cream (Mycolog)Indicatio ns:Melissa rash of groin APPLY TOPICALLY TO THE AFFECTED AREA TWICE DAILY FOR 14 DAYS. 60 g 1 12/01/19 24 Active Diclofenac Sodium 1 % External Gel (Voltaren) Apply topically to affected area 2 times a day. Apply to painful joints 100 g 3 12/11/19 24 Active HumuLIN R U-500 KwikPen 500 UNIT/ML Solution Pen-injectorIndica tions:Type 2 diabetes mellitus with hemoglobin A1c goal of less than 8.0% ([facility]) Inject 100 units with meals and bedtime snack if blood glucose <200 and inject 120 units with meals and bedtime snack if blood glucose >=200. 90 mL 5 01/14/20 24 Active Potassium Citrate ER 10 MEQ (1080 MG) Oral Tablet Extended Release (potassium citrate-10) Take 1 Tablet by mouth in the morning and 1 Tablet before bedtime. 180 Tablet 3 01/20/20 24 Active Prazosin HCl 1 MG Oral Capsule (Minipress)Indicat ions:Vivid dream Take 1 Capsule by mouth at bedtime. 30 Capsule 5 02/03/20 24 Active Ipratropium [place] 0.03 % Nasal Solution (Atrovent) ADMINISTER 2 SPRAYS INTO NOSTRIL IN THE MORNING AND 2 SPRAYS BEFORE BEDTIME. 90 mL 4 02/05/20 24 Active traMADol HCl 50 MG Oral Tablet (Ultram)Indication s:Hip pain, left Take 1 Tablet by mouth at bedtime as needed for Pain, Severe. 15 Tablet 03/16/20 24 Active Torsemide 20 MG Oral Tablet (Demadex)Indicatio ns:Chronic diastolic heart failure (HCC) Take 2 Tablets by mouth in the morning. 180 Tablet 1 03/16/20 24 Active Triamcinolone Acetonide 0.1 % External Cream (Aristocort)Indica tions:Hand dermatitis Apply topically to affected area 2 times a day. To affected area. 80 g 5 03/29/20 24 Active Digoxin 125 MCG Oral Tablet (Lanoxin) TAKE 1 TABLET BY MOUTH EVERY DAY IN THE MORNING 90 Tablet 04/07/19 25 Active Eliquis 5 MG Oral Tablet (Apixaban)Indicati ons:PAF (paroxysmal atrial fibrillation) (HCC),Cerebrovascu lar disease, arteriosclerotic, post-stroke TAKE 1 TABLET BY MOUTH TWICE A DAY 180 Tablet 04/12/19 25 Active Atorvastatin Calcium 40 MG Oral Tablet (Lipitor)Indicatio ns:Dyslipidemia, goal LDL below 70 TAKE 1 TABLET BY MOUTH EVERY DAY 90 Tablet 3 05/05/19 25 Active Pantoprazole Sodium 40 MG Oral Tablet Delayed Release (Protonix)Indicati ons:Gastroesophage al reflux disease without esophagitis TAKE 1 TABLET BY MOUTH EVERY DAY 90 Tablet 3 05/05/19 25 Active Metoprolol Succinate ER 100 MG Oral Tablet Extended Release 24 Hour (toPROL XL) TAKE 1 TABLET BY MOUTH IN THE MORNING AND BEFORE BEDTIME 180 Tablet 2 05/26/19 25 Active Famotidine 20 MG Oral Tablet (Pepcid) TAKE 1 TABLET BY MOUTH EVERY DAY IN THE MORNING 90 Tablet 1 05/26/19 25 Active Montelukast Sodium 10 MG Oral Tablet (Singulair)Indicat ions:Chronic rhinitis TAKE 1 TABLET BY MOUTH EVERY DAY IN THE MORNING 90 Tablet 2 05/26/19 25 Active Pregabalin 50 MG Oral Capsule [...] ns:COPD, group B, by GOLD 2017 classification ([facility]) INHALE 1 PUFF BY MOUTH IN THE MORNING 180 Each 3 05/29/19 25 Active metFORMIN HCl 1000 MG Oral Tablet (Glucophage)Indica tions:Type 2 diabetes mellitus with hemoglobin A1c goal of less than 7.0% ([facility]) Take 1 Tablet by mouth in the morning and 1 Tablet before bedtime. 180 Tablet 1 06/01/19 25 Active Sucralfate 1 GM Oral Tablet (Carafate)Indicati ons:Upset stomach One tab by mouth up to 4 times a day as needed for acid reflux or upset stomach 360 Tablet 06/17/19 25 Active documented as of this encounter (statuses as of 06/16/2024) Active Problems Problem Noted Date Diagnosed Date POLST (Physician Orders for Life-Sustaining Ibeth tment) 03/16/2024 Chronic kidney disease, stage 3a 09/14/2023 Overview: Per CKD protocol Gastroparesis due to DM 05/06/2023 History of [...] as of this encounter (statuses as of 06/16/2024) Resolved Problems Problem Noted Date Diagnosed Date [...] colitis 12/09/2012 017 Genetic Sleep Disorder Resea [facility] Other*[id number] 03/02/2012 11/01/2015 Tobacco use disorder 11/20/2011 014 [...] as of this encounter (statuses as of 06/16/2024) Immunizations Name Administration Dates Next Due COVID-19 mRNA, LNP-s, No Pre serve, 2-Dose Series (Moderna) 01/14/2021,06/06/2020,05/09/2020 COVID-19, MRNA-LNP, 24-25, P R, 30MCG/0.3ML, IM, 12YRS AND ABOVE ([facility]) 12/17/2023 COVID-19, MRNA-LNP, PF, 30 M [...] 01/20/2020 Hunger Vital Sign Answer Date Recorded Within [...] 07/05/2024 2:00 PM EDT [facility] [address] [phone] Paula Pan PA-C [address] [address] 07/05/2024 2:40 PM EDT Office Visit Pharmacy, Shiela Ramirez [address] [phone] [facility] [address] [place] [address] [place] [address] 09/22/2024 9:30 AM EDT [facility] [address] [place] [phone] Sabine Mosley DO [address] [place] [address] 10/18/2024 1:30 PM EDT Office Visit Cardiology, [facility] [address] [place] [address] Danica Grider CRNP [address] [place] [address] Scheduled Referrals Name Type Priority Associated Diagnoses Orde r Schedule GI NUTRITION REFERRAL OP Referral Within 3 days (urgent) Primary osteoarthritis of one hip, right Obesity, unspecified Ordered: 06/16/2024 Health Maintenance Due Date Last Done Comments Fecal Occult Blood Test 1997 Sigmoidoscopy 1997 Adult Wellness Visit 2018 Colonoscopy 01/03/2020 01/02/2010 Depression Monitoring 01/19/2021 01/20/2020 Diabetic Eye Exam 06/17/2023 06/16/2022, , 03/23/2020, [...] Additional history exists CKD PHOS USE SMARTSET 46435 05/13/2024 05/13/2023 HbA1c 07/14/2024 01/14/2024, 07/06, 04/17/2023, Additional history exists Cologuard 08/30/2024 08/30/2021, 08/05, 08/25/2021, Additional history exists Colorectal Cancer Screening 08/30/2024 Albumin/Creatinine Ratio 02/11/2025 024, 01/23/2024, 09/22/2022, Additional history exists CKD HGB USE SMARTSET 03502 04/22/202504/22, 04/22/2024, 04/17/2023, Additional history exists DIG LEVEL FOR MEDICATION MONITORING YEARLY 04/22/2025 04/22/2024, 05/13/2023, 04/17/2023, Additional history exists O2 ASSESSMENT COMPLETED IN PAST YEAR FOR COPD 06/03/2025 06/03/2024 DTap/Tdap Vaccines (4 - Td or Tdap) [...] as of this encounter Visit Diagnoses Diagnosis Primary osteoarthritis of one hip, right- Primary Obesity, unspecified documented in this encounter Care Teams Public Policy Manager Relationship Specialty Start Date End Date Paula Pan PA-C [address] [facility] [place] [address] PCP - General Physician Forest Resource Specialist 04/14/24 documented as of this encounter
--- OUTSIDE RECORDS SUMMARY | 2024-07-03 20:44 | External Medical Summary ---
Author Name Unknown Address Unknown Organization K01:LAB[facility]ATORY [place] [address] [address] [facility] [address] Laboratory Report Ordering Provider Test Date Status DENISE FUENTESJD 06/22/2024 11:54:23 Final Exclude Heart Failure: <300 pg/mL
Diagnose Heart Failure:
Age <50 yr: >450 pg/mL
50-75 yr: >900 pg/mL
>75 yr: >1800 pg/mL
GFR is 30-59 mL/min: >1200 pg/mL or Age- adjusted values
GFR <30 mL/min: do not use, not reliable

Prognostic threshold: 1000 pg/mL Observation Date Value Abnormality Reference (Units ) Status BNP, Pro-hormone 06/22/2024 11:54:23 836 Above high no rmal <300 (pg/mL) Final Performing Location LABORATORY [place] - [facility] [address] [place] [address]
--- OUTSIDE RECORDS SUMMARY | 2024-07-03 20:44 | External Medical Summary | Continuity of Care Document ---
Author Name Unknown Organization [facility] [id number] Address [address] [place] [address] [id number] Care Team Providers Care Transportation Supervisor Name Role Phone Sabine Mosley Primary Care Physician [phone] Encounter [facility] [id number] Date(s): 05/30/24 - 05/30/24 [facility] [address] [facility] [address] [address] Encounter Diagnosis Osteoarthritis of right hip(Discharge Diagnosis) - 05/30/24 Obesity(Discharge Diagnosis) - 05/30/24 Discharge Disposition: Home or Self Care Attending Physician: DO Landeros Mehwish Encounter Type: Clinic Allergies, Adverse Reactions, Alerts Substance Criticality Severity Reaction Reaction Severity Status sulfa drugs unknown Active Adhesive bandage Rash Act luther Assessment and Plan Extracted from: Title:Office Visit Note Author:DO Landeros Me hwish Date:05/30/24 1. Osteoarthritis of right hip 2. Obesity Chronic, not well-controlled At this point, I think ultrasound-guided corticosteroid injections offer her short-term relief, but we discussed to help with long-term management of this discomfort and believe weight loss and a possible joint replacement would be most beneficial for her. She notes that she has previously been on Ozempic, but did not tolerate this well due to side effects. I offered a referral to [facility] obesity medicine/medical weight loss clinic as I do think weight loss will help reduce symptoms of pain in her hip, she expresses understanding of this and would like to proceed with this referral. I would like to follow-up with her in approximately 3 months. Medications acetaminophen-hydrocodone 325 mg-5 mg oral tablet Start: 11/28/22 10:03:00 AM EDT, 30 each, TAKE 1 TABLET BY MOUTH EVERY 6 HOURS NEEDED FOR SEVERE PAIN Start Date: 11/28/22 Status: Ordered Repeat number: 1 Albuterol (Eqv-ProAir HFA) 90 mcg/inh inhalation aerosol Start: 11/28/22 10:03:00 AM EDT, 8 g, INHALE 2 PUFFS BY MOUTH EVERY 6 HOURS NEEDED FOR COUGH, SHORTNESS OF BREATH OR WHEEZING. Start Date: 11/28/22 Status: Ordered Repeat number: 1 amoxicillin 875 mg oral tablet Start: 05/30/24 1:57:00 PM EST Start Date: 05/30/24 Status: Ordered Repeat number: 1 atorvastatin 40 mg oral tablet Start: 11/28/22 10:03:00 AM EDT, 90 each, TAKE 1 TABLET BY MOUTH EVERY DAY Start Date: 11/28/22 Status: Ordered Repeat number: 1 Basaglar KwikPen 100 units/mL subcutaneous solution Start: 11/28/22 10:03:00 AM EDT, 60 mL, INJECT 40 UNITS TWICE DAILY DIRECTED. Start Date: 11/28/22 Status: Ordered Repeat number: 1 CVS ACETAMINOPHEN 325 MG TAB CVS ACETAMINOPHEN 325 MG TAB, TAKE 2 TABLETS BY MOUTH EVERY 6 HOURS Start Date: 07/23/23 Status: Ordered Repeat number: 1 digoxin 125 mcg (0.125 mg) oral tablet Start: 07/23/23 11:17:00 AM EDT, 1 tab, PO, ONCE Start Date: 07/23/23 Status: Ordered Repeat number: 1 DilTIAZem (Eqv-Cardizem CD) 180 mg/24 hours oral capsule, extended release Start: 11/28/22 10:03:00 AM EDT, 90 each, TAKE 1 CAPSULE BY MOUTH EVERY DAY Start Date: 11/28/22 Status: Ordered Repeat number: 1 Eliquis 5 mg oral tablet Start: 11/28/22 10:03:00 AM EDT, 180 each, TAKE 1 TABLET BY MOUTH TWICE A DAY Start Date: 11/28/22 Status: Ordered Repeat number: 1 famotidine 20 mg oral tablet Start: 11/28/22 10:03:00 AM EDT, 90 each, TAKE 1 TABLET BY MOUTH EVERY DAY Start Date: 11/28/22 Status: Ordered Repeat number: 1 fluconazole 150 mg oral tablet Start: 11/28/22 10:03:00 AM EDT, 6 each, TAKE 1 TABLET BY MOUTH ONCE FOR 1 DOSE. TAKE ANOTHER DOSE AFTER 24 HRS Start Date: 11/28/22 Status: Ordered Repeat number: 1 hydrocortisone 25 mg rectal suppository Start: 11/28/22 10:03:00 AM EDT, 12 each, Administer 1 Suppository into the rectum in the morning and 1 Suppository before bedtime. As directed.. Start Date: 11/28/22 Status: Ordered Repeat number: 1 ipratropium 21 mcg/inh (0.03%) nasal spray Start: 11/28/22 10:03:00 AM EDT, 90 mL, ADMINISTER 2 SPRAYS INTO NOSTRIL IN THE MORNING AND 2 SPRAYSBEFORE BEDTIME. Start Date: 11/28/22 Status: Ordered Repeat number: 1 metFORMIN 1000 mg oral tablet Start: 11/28/22 10:03:00 AM EDT, 180 each, TAKE 1 TABLET BY MOUTH TWICE A DAY Start Date: 11/28/22 Status: Ordered Repeat number: 1 Metoprolol Tartrate 50 mg oral tablet Start: 11/28/22 10:03:00 AM EDT, 270 each, TAKE 1 AND 1/2 TABLETS BY MOUTH 2 TIMES A DAY. Start Date: 11/28/22 Status: Ordered Repeat number: 1 montelukast 10 mg oral tablet Start: 11/28/22 10:03:00 AM EDT, 90 each, TAKE 1 TABLET BY MOUTH EVERY DAY Start Date: 11/28/22 Status: Ordered Repeat number: 1 NovoLIN 70/30 Vial subcutaneous suspension Start: 11/28/22 10:04:00 AM EDT, 50 mL, INJECT 65-80 UNITS BEFORE BREAKFAST THEN 65-80 UNITS BEFORE SUPPER Start Date: 11/28/22 Status: Ordered Repeat number: 1 NovoLOG FlexPen 100 units/mL injectable solution Start: 11/28/22 10:04:00 AM EDT, 30 mL, INJECT 20-25 UNITS UNDER THE SKIN IN THE MORNING AND 20-25 UNITS IN THE EVENING. WITH MEALS. Start Date: 11/28/22 Status: Ordered Repeat number: 1 nystatin 100,000 units/g topical powder Start: 11/28/22 10:04:00 AM EDT, 60 g, APPLY 0.5 GRAMS TO THE GROIN TWICE DAILY-- IN THE MORNING ANDTHE EVENING. Start Date: 11/28/22 Status: Ordered Repeat number: 1 Ozempic (0.25 mg or 0.5 mg dose) 2 mg/3 mL subQ pen Start: 11/28/22 10:04:00 AM EDT, 3 mL, INJECT 0.25MG ONCE WEEKLY DIRECTED, Supply Start Date: 11/28/22 Status: Ordered Repeat number: 1 pantoprazole 40 mg oral delayed release tablet Start: 11/28/22 10:04:00 AM EDT, 90 each, TAKE 1 TABLET BY MOUTH EVERY DAY Start Date: 11/28/22 Status: Ordered Repeat number: 1 Premarin 0.625 mg/g vaginal cream with applicator Start: 11/28/22 10:04:00 AM EDT, 90 g, ADMINISTER INTO THE VAGINA AT BEDTIME. DIRECTED. Start Date: 11/28/22 Status: Ordered Repeat number: 1 tamsulosin 0.4 mg oral capsule Start: 11/28/22 10:04:00 AM EDT, 30 each, TAKE 1 CAPSULE BY MOUTH EVERYDAY AT BEDTIME Start Date: 11/28/22 Status: Ordered Repeat number: 1 traMADol 50 mg oral tablet Start: 07/23/23 11:17:00 AM EDT, 1 tab, PO, q4h, PRN: as needed for pain Start Date: 07/23/23 Status: Ordered Repeat number: 1 Trelegy Ellipta 100 mcg-62.5 mcg-25 mcg/inh inhalation powder Start: 11/28/22 10:04:00 AM EDT, 60 each, INHALE 1 PUFF BY MOUTH IN THE MORNING Start Date: 11/28/22 Status: Ordered Repeat number: 1 Mental Status 05/30/24 Barriers to Learning one year None evide nt Mandatory Health Literacy Documentation Yes Health Literacy Communication Barriers N ever Primary Language [place] Problem List Condition Confirmation Course Effective Dates Status H ealth Status Informant Muscle cramps Confirmed Active Sacroiliitis Confirmed Active Osteoarthritis of right hip Confirmed Active Diagnosis Diagnosis Type Effective Dates Health Status Clinical Service Informant Osteoarthritis of right hip Discharge Diagnosis 05/30/24 Non-Specified Obesity Discharge Diagnosis 05/30/24 Non-Specified Social History Social History Type Response Smoking Status Never smoked cigaret perri Sex Female Sex Representation Female (finding) Ortho Outpt Note * DO Landeros Mehwish: PERFORM Event Display: Ortho Outpt Note Authored Date: Chief Complaint FU Rt hip. Pt states Moist heat and hand held massager and Volteran helps. Pt states she has painwhen trying to get off toilet. Pt uses lift chair. History of Present Illness Asher is a 73yo female who presents for f/u of her right hip pain due to arthritis. She had an ultrasound-guided right hip joint injection on 04/27/24. She did not have any issues following the injection. She did note improvement in pain, though cannot quantify how much reduction in pain she had. Today she notes that her pain is a 10/10. She notes that on a good day her pain of her right hip is a 5/10. She notes a lot of her pain also gets worse related to colder weather. She notes that topical Voltaren gel has been helpful. She has been using a hand massager as well. She has been trying to do exercises. She notes difficulty with getting up from the commode. Physical Exam Right hip: Patient presents in wheelchair, also has a cane with her for ambulation. Right lower extremity strength hip flexion 4+/5, hip abduction 4/5, hip abduction 4/5. Dorsiflexion 5/5, plantarflexion 5/5 Assessment/Plan 1. Osteoarthritis of right hip 2. Obesity Chronic, not well-controlled At this point, I think ultrasound-guided corticosteroid injections offer her short-term relief, but we discussed to help with long-term management of this discomfort and believe weight loss daisy possible joint replacement would be most beneficial for her. She notes that she has previously been on Ozempic, but did not tolerate this well due to side effects. I offered a referral to [facility] obesity medicine/medical weight loss clinic as I do think weight loss will help reduce symptoms of pain in her hip, she expresses understanding of this and would like to proceed with this referral. I would like to follow-up with her in approximately 3 months. Problem List/Past Medical History Ongoing Muscle cramps Osteoarthritis of right hip Sacroiliitis Medications acetaminophen-hydrocodone(acetaminophen-hydrocodone 325 mg-5 mg oral tablet) albuterol(Albuterol (Eqv-ProAir HFA) 90 mcg/inh inhalation aerosol) amoxicillin(amoxicillin 875 mg oral tablet) apixaban(Eliquis 5 mg oral tablet) atorvastatin(atorvastatin 40 mg oral tablet) conjugated estrogens topical(Premarin 0.625 mg/g vaginal cream with applicator) digoxin(digoxin 125 mcg (0.125 mg) oral tablet), 125 mcg= 1 tab, PO, ONCE dilTIAZem(DilTIAZem (Eqv-Cardizem CD) 180 mg/24 hours oral capsule, extended release) famotidine(famotidine 20 mg oral tablet) fluconazole(fluconazole 150 mg oral tablet) fluticasone/umeclidinium/vilanterol(Trelegy Ellipta 100 mcg-62.5 mcg-25 mcg/inh inhalation powder) hydrocortisone topical(hydrocortisone 25 mg rectal suppository) insulin aspart(NovoLOG FlexPen 100 units/mL injectable solution) insulin glargine(Basaglar KwikPen 100 units/mL subcutaneous solution) insulin isophane (NPH)-insulin regular(NovoLIN 70/30 Vial subcutaneous suspension) ipratropium nasal(ipratropium 21 mcg/inh (0.03%) nasal spray) metFORMIN(metFORMIN 1000 mg oral tablet) metoprolol(Metoprolol Tartrate 50 mg oral tablet) montelukast(montelukast 10 mg oral tablet) nystatin topical(nystatin 100,000 units/g topical powder) pantoprazole(pantoprazole 40 mg oral delayed release tablet) semaglutide(Ozempic (0.25 mg or 0.5 mg dose) 2 mg/3 mL subQ pen) tamSULOsin(tamsulosin 0.4 mg oral capsule) traMADol(traMADol 50 mg oral tablet), 50 mg= 1 tab, PO, q4h, PRN unlisted medication([facility]S ACETAMINOPHEN 325 MG TAB) Allergies Adhesive bandage Rash sulfa drugs unknown Social History Smoking Status Never smoked cigarettes Intake (IView) Smoking History Cigarette smoker: Never smoked cigarettes Tobacco Product Use: Never used other tobacco products Recommendations Health Maintenance Pending (in the next year) OverDue Adult Influenza Vaccine due 10/05/23 and every 1 year Due Adult Social Determinants of Health Screening due 05/30/24 Unknown Frequency Adult Tdap/Td Vaccine due 05/30/24 Unknown Frequency Body Mass Index due 05/30/24 Unknown Frequency Breast Cancer Screening due 05/30/24 Unknown Frequency Colorectal Cancer Screening due 05/30/24 Unknown Frequency Hepatitis C Screening due 05/30/24 One-time only Lipid Screening due 05/30/24 Unknown Frequency Medicare Annual Wellness Visit due 05/30/24 and every 1 year Osteoporosis Screening due 05/30/24 One-time only Pneumococcal Vaccine Older Adults due 05/30/24 One-time only Shingles Vaccine due 05/30/24 One-time only Satisfied (in the past 1 year) There are no satisfied recommendations within the defined date range Electronic Signature on File CC: Sabine Mosley DO [address] [place] [id number] * Electronically Reviewed/Signed by: Gissel Landeros DO Author Signature Dt/Tm:05/30/2024 08:31 PM Division of Sports Medicine MM Patient Care team information Care Team Personnel Name: DO Mosley Laura L Position: Referring DIRECT Member Role: Primary Care Provider Address: [address] [place] [address] Telecom: [phone] Insurance Providers Guarantor name: ASHER JACKSON Health Plan Information #: 1 Payer: IVONNE Member Number: [id number] Policy Number: NA Group Number: [id number] Health Plan Information #: 2 Payer: [employer] Member Number: [id number] Policy Number: NA Group Number: [id number]
--- OUTSIDE RECORDS SUMMARY | 2024-07-03 20:44 | External Medical Summary | Summary of Care ---
Author Name Unknown Organization [facility] Address [address] [place] [address] Phone [phone] Care Team Providers Care Medication Technician Name Role Phone Paula Pan PA-C Primary Care Provider [phone] Reason for Visit * Reason Onset Date Comments Medication Refill 06/16/2024 Encounter Details Date Type Department Care Team (Late st Contact Info) Description 06/16/2024 Refill [facility] [address] [phone] Paula Pan PA-C [address] [facility] [place] [address] Upset stomach Allergies Active Allergy Reactions Criticality Noted Date Comments Adhesive Tape 11/04/2017 sensitivity Cephalosporins Unknown 09/08/2000 Clarithromycin Rash 09/08/2000 Clobetasol Unknown 02/17/2022 Sulfa Antibiotics High 09/08/2000 Unknown Other Reaction(s): "Sulfa Drugs = rash" Terconazole 09/09/2002 terazol - made her itchy documented as of this encounter (statuses as of 06/16/2024) Medications INSULIN SYRINGES (DISP) 1ML U-100 MISCIndications:D [...] Capsule by mouth in the morning. Active Glucosamine-Chond [id number] TABS Take 1 Tab by mouth daily. [...] Mouthpiece Kit Please provide mask 1 Kit 02/11/20 [...] before bedtime. As directed.. 12 Suppository 09/27/19 Active Additional Information Patient not taking.Reported on 06/03/2024 OneTouch Verio In Vitro Strip (Glucose Blood) Use up to 4 times a day E11.9 100 Strip 11 11/18/19 23 Active OneTouch Verio w/Device Kit Use up to 3 times a day E11.9 1 Kit 11/21/19 23 Active Albuterol Sulfate HFA 108 (90 Base) MCG/ACT Inhalation Aerosol SolutionIndicatio ns:COPD, group B, by GOLD 2017 classification ([facility]) Inhale 2 Puffs by mouth every 6 hours as needed for Cough, Shortness of Breath or Wheezing. 18 g 2 07/04/19 24 Active Acetaminophen 325 MG Oral Capsule Take by mouth. Active BD Pen Needle Isamar 2nd Gen 32G X 4 MMIndications:Typ e 2 diabetes mellitus with hemoglobin A1c goal of less than 7.0% ([facility]) Use to inject insulin four times daily E11.9 200 Each 3 09/08/19 24 Active Tamsulosin HCl 0.4 MG Oral Capsule (Flomax) Take 1 Capsule by mouth in the morning. 90 Capsule 3 09/21/19 24 Active OXcarbazepine 150 MG Oral Tablet (Trileptal) Take 1 Tablet by mouth in the morning. 09/16/19 24 Active Nystatin 269419 UNIT/GM External Powder (Nystop)Indicatio ns:Melissa rash of groin APPLY 0.5 GRAM TO THE GROIN TWICE DAILY IN THE MORNING AND THE EVENING. 180 g 1 12/01/19 24 Active Nystatin-Triamcin olone 947345-1.1 UNIT/GM-% External Cream (Mycolog)Indicati ons:Melissa rash of [...] hemoglobin A1c goal of less than 8.0% ([facility]) Inject 100 units with meals [...] 30 Capsule 5 02/03/20 24 Active Ipratropium [place] 0.03 % Nasal Solution (Atrovent) ADMINISTER 2 SPRAYS INTO NOSTRIL IN THE MORNING AND 2 SPRAYS BEFORE BEDTIME. 90 mL 4 02/05/20 24 Active traMADol HCl 50 MG Oral Tablet (Ultram)Indicatio ns:Hip pain, left Take 1 Tablet by mouth at bedtime as needed for Pain, Severe. 15 Tablet 03/16/20 24 Active Torsemide 20 MG Oral Tablet (Demadex)Indicati ons:Chronic [...] 25 Active Eliquis 5 MG Oral Tablet (Apixaban)Indicat ions:PAF (paroxysmal atrial fibrillation) ([facility]),Cerebrovasc ular disease, arteriosclerotic, post-stroke TAKE [...] 25 Active Pregabalin 50 MG Oral Capsule (Lyrica)Indicatio [...] ons:COPD, group B, by GOLD 2017 classification ([facility]) INHALE 1 PUFF BY MOUTH IN THE MORNING 180 Each 3 05/29/19 25 Active metFORMIN HCl 1000 MG Oral Tablet (Glucophage)Indic ations:Type 2 diabetes mellitus with hemoglobin A1c goal of less than 7.0% ([facility]) Take 1 Tablet by mouth in the morning and 1 Tablet before bedtime. 180 Tablet 1 06/01/19 25 Active Sucralfate 1 GM Oral Tablet (Carafate)Indicat ions:Upset stomach One tab by mouth up to 4 times a day as needed for acid reflux or upset stomach 360 Tablet 06/17/19 25 Active Sucralfate 1 GM Oral Tablet (Carafate)Indicat ions:Upset stomach One tab by mouth up to 4 times a day as needed for acid reflux or upset stomach 120 Tablet 05/24/19 25 025 Disconti nued(Ref ill) documented as of this encounter (statuses as [...] difficile colitis 12/09/2012 017 Genetic Sleep Disorder [facility] Other*[id number] 03/02/2012 11/01/2015 Tobacco use disorder 11/20/2011 014 [...] P R, 30MCG/0.3ML, IM, 12YRS AND ABOVE (Penana-Comirnaty) 12/17/2023 COVID-19, MRNA-LNP, PF, 30 M CG/0.3 mL, 12 YRS AND ABOVE, IM ([facility]) 12/30/2022 COVID-19, mRNA, LNP-s, PF, B ooster, [...] Telephone Encounter - Paula Pan PA-C - 06/16/2024 2:08 PM EDTSigned Prescriptions: Disp Refills Sucralfate 1 GM Oral Tablet (Carafate) 360 Ta*0 Sig: One tab by mouth up to 4 times a day as needed for acid reflux or upset stomachAuthorizing Provider: PAULA PAN * Telephone Encounter - Paula Pan PA-C - 06/16/2024 2:07 PM EDT Inboxologist Note: Refilling Upset stomach - Sucralfate 1 GM Oral Tablet (Carafate); One tab by mouth up to 4 times a day as needed for acid reflux or upset stomach Paula Pan PA-C 06/16/2024 2:07 PM * Telephone Encounter - Lynette Collado OSA - 06/16/2024 1:58 PM EDT Did you pend patient's preferred pharmacy and medication before forwarding?yes Pharmacy: [id number] [address] [facility] Pending Prescriptions: Disp Refills Sucralfate 1 GM Oral Tablet (Carafate) 120 Ta*0 Sig: One tab by mouth up to 4 times a day as needed for acid reflux or upset stomach Last Visit: 06/03/2024 (in office), Visit date not found (telemedicine) Next Visit: 07/05/2024 If no future appointments scheduled, and last appointment is greater than a year ago, please schedule patient for a follow-up appointment Last date the medication was ordered: 90 day Is this request for a controlled substance?No [...] Description 07/05/2024 2:00 PM EDT [facility] [address] [phone] Paula Pan PA-C [address] [place] [address] 07/05/2024 2:40 PM EDT Office Visit Pharmacy, [facility] [address] [place] [phone] [facility] [address] [facility] [place] [address] 09/22/2024 9:30 AM EDT Office Visit Family Practice, [facility] [address] [place] [phone] Sabine Mosley DO [address] [place] [address] 10/18/2024 1:30 PM EDT Office Visit Cardiology, [facility] [address] [place] [address] Danica Grider CRNP [address] [place] [address] Health Maintenance Due Date Last Done Comments [...] Additional history exists CKD PHOS USE SMARTSET 26657 05/13/2024 05/13/2023 HbA1c 07/14/2024 01/14/2024, 07/06, 04/17/2023, Additional history exists Cologuard 08/30/2024 08/30/2021, 08/05, 08/25/2021, Additional history exists Colorectal Cancer Screening 08/30/2024 Albumin/Creatinine Ratio 02/11/2025 024, 01/23/2024, 09/22/2022, Additional history exists CKD HGB USE SMARTSET 31713 04/22/202504/22, 04/22/2024, 04/17/2023, Additional history exists DIG [...] as of this encounter Visit Diagnoses Diagnosis Upset stomach Dyspepsia and other specified disorders of function of stomach documented in this encounter Care Teams Medication Technician Relationship Specialty Start Date End Date Paula Pan PA-C [address] [facility] [phone] PCP - General Physician Procurement Analyst 04/14/24 documented as of this encounter
--- OUTSIDE RECORDS SUMMARY | 2024-07-03 20:44 | External Medical Summary | Summary of Care ---
Author Name Unknown Organization [facility] Address [address] [place] [address] Phone [phone] Care Team Providers Care Brickmason Supervisor Name Role Phone Paula Pan PA-C Primary Care Provider [phone] Reason for Visit * Reason Comments Status Check Patient is here with complaints of cold symptoms that have come back since being seen on 05/11/[address] Javed. She was prescribed antibiotics and feels this did not work. Complains of yellow mucus and congestion in chest. Encounter Details Date Type Department Care Team (Late st Contact Info) Description 06/03/2024 10:00 AM EST Office Visit [facility] [address] [place] [phone] Moises Kaufman PA-C [address] [place] [address] Acute sinusitis, recurrence not specified, unspecified location* Allergies Active Allergy Reactions Criticality Noted Date Comments Adhesive Tape 11/04/2017 sensitivity Cephalosporins Unknown 09/08/2000 Clarithromycin Rash 09/08/2000 Clobetasol Unknown 02/17/2022 Sulfa Antibiotics High 09/08/2000 Unknown Other Reaction(s): "Sulfa Drugs = rash" Terconazole 09/09/2002 terazol - made her itchy documented as of this encounter (statuses as of 06/03/2024) Medications INSULIN SYRINGES (DISP) 1ML U-100 MISCIndications:DM [...] by mouth in the morning. Active Glucosamine-Chondr [id number]-L4 TABS Take 1 Tab by mouth daily. [...] in the morning. 09/16/19 24 Active Nystatin 591389 UNIT/GM External Powder (Nystop)Indication s:Melissa rash of groin APPLY 0.5 GRAM TO THE GROIN TWICE DAILY IN THE MORNING AND THE EVENING. 180 g 1 12/01/19 24 Active Nystatin-Triamcino lone 646779-2.1 UNIT/GM-% External Cream (Mycolog)Indicatio ns:Melissa rash of [...] goal of less than 8.0% ([facility]) Inject 100 units with meals and bedtime [...] 30 Capsule 5 02/03/20 24 Active Ipratropium [place] 0.03 % Nasal Solution (Atrovent) ADMINISTER 2 [...] Oral Tablet (Apixaban)Indicati ons:PAF (paroxysmal atrial fibrillation) ([facility]),Cerebrovascu lar disease, arteriosclerotic, post-stroke TAKE 1 TABLET [...] DAY 90 Tablet 3 05/05/19 25 Active Sucralfate 1 GM Oral Tablet (Carafate)Indicati ons:Upset stomach One tab by mouth up to 4 times a day as needed for acid reflux or upset stomach 120 Tablet 05/24/19 25 Active Metoprolol Succinate ER 100 MG [...] classification ([facility]) INHALE 1 PUFF BY MOUTH IN THE MORNING 180 Each 3 05/29/19 25 Active metFORMIN HCl 1000 MG Oral Tablet (Glucophage)Indica tions:Type 2 diabetes mellitus with hemoglobin A1c goal of less than 7.0% ([facility]) Take 1 Tablet by mouth in the morning and 1 Tablet before bedtime. 180 Tablet 1 06/01/19 25 Active predniSONE 20 MG Oral Tablet (Deltasone)Indicat ions:Acute sinusitis, recurrence not specified, unspecified location Take 2 Tablets by mouth in the morning for 5 days. 10 Tablet 06/03/19 25 025 Active Amoxicillin-Pot Clavulanate 875-125 MG Oral Tablet (Augmentin)Indicat ions:Acute sinusitis, recurrence not specified, unspecified location Take 1 Tablet by mouth in the morning and 1 Tablet before bedtime. Do all this for 10 days. 20 Tablet 06/03/19 25 025 Active documented as of this encounter (statuses as of 06/03/2024) Active Problems Problem Noted Date Diagnosed Date [...] as of this encounter (statuses as of 06/03/2024) Resolved Problems Problem Noted Date Diagnosed Date [...] colitis 12/09/2012 017 Genetic Sleep Disorder Resea [facility] Other*[id number] 03/02/2012 11/01/2015 Tobacco use disorder 11/20/2011 014 [...] CVA 07/02/2004 07/20/2008 Overview (07/20/2008): Modified per CV protocol #8 Asthma exacerbation in COPD 07/15/2002 04/08/2018 Other chronic sinusitis 07/15/200209/05 ADJ DISORDER W/DEPRES MOOD 07/15/2002 0 12/09/2019 DM, UNCONTROLLED, TYPE II Tobacco use disorder 012 Chronic sinusitis 09/24/2016 Allergic rhinitis 11/20/2011 NON ALLERGIC RHINITIS 2011 Sensorineural hearing loss, bilateral 09/24/2016 Presbyacusis 05/06/2022 documented as of this encounter (statuses as of 06/03/2024) Immunizations Name Administration Dates Next Due COVID-19 mRNA, LNP-s, No Pre serve, 2-Dose Series (Moderna) 01/14/2021,06/06/2020,05/09/2020 COVID-19, MRNA-LNP, 24-25, P R, 30MCG/0.3ML, IM, 12YRS AND ABOVE ([employer] (Inspect Manager)-Comirnaty) 12/17/2023 COVID-19, MRNA-LNP, PF, 30 M CG/0.3 [...] Sign Reading Time Taken Comments Blood Pressure 108/54 06/03/2024 10:25 AM EST Pulse 88 06/03/2024 10:25 AM EST Temperature 36.6 °C (97.8 °F) 06/03/2024 1 0:25 AM EST Respiratory Rate 20 06/03/2024 10:2 5 AM EST Oxygen Saturation 90% 06/03/2024 10: 25 AM EST Inhaled Oxygen Concentration - - Weight 146.7 kg (323 lb 6.4 oz) 025 10:25 AM EST Height - - Body Mass Index 53.82 03/29/2024 12:38 PM EST documented in this encounter Progress Notes * Moises Kaufman PA-C - 06/03/2024 10:29 AM EST Images from the original note were not included. History of Present Illness Ivy Mercado is a 73 year old female that presents for Status Check (Patient is here with complaints of cold symptoms that have come back since being seen on 05/11/[address] Javed. She was prescribed antibiotics and feels this did not work. Complains of yellow mucus and congestion in chest. ) History of Present Illness The patient, with a history of diabetes and allergies, presents with a persistent sinus infection that began in late April. Despite two courses of antibiotics (doxycycline for a week and amoxicillin for a week), the patient reports worsening symptoms, including nasal congestion and productive cough with yellow sputum. She also describes a severe headache and mild right ear soreness. The patientdenies fever. She has been using an inhaler and nasal sprays, including Atrovent, for symptom management. The patient also takes loratadine and montelukast for allergies year-round. She mentions thather has been experiencing sinus drainage and cough, which he attributes to dental issues. The patient's blood sugars have been fluctuating, with her last A1c at 7.7 in January. She also reports some swelling in her legs, which she manages with a diuretic and wrapping; currently better than before. Physical Exam Vitals: 06/03/24 1025 Temp: 97.8 °F (36.6 °C) Pulse: 88 Resp: 20 SpO2: 90% BP: 108/54 Wt Readings from Last 3 Encounters: 06/03/24 (!) 323 lb 6.4 oz (146.7 kg) 03/29/24 (!) 325 lb (147.4 kg) 03/16/24 (!) 317 lb 6.4 oz (144 kg) Physical Exam Vitals and nursing note reviewed. Constitutional: General: She is not in acute distress. Appearance: She is obese. HENT: Head: Normocephalic and atraumatic. Right Ear: Tympanic membrane, ear canal and external ear normal. Left Ear: Tympanic membrane, ear canal and external ear normal. Nose: Congestion present. Mouth/Throat: Mouth: Mucous membranes are moist. Pharynx: Oropharynx is clear. Cardiovascular: Rate and Rhythm: Normal rate and regular rhythm. Pulmonary: Effort: Pulmonary effort is normal. Breath sounds: Normal breath sounds. Musculoskeletal: Cervical back: Neck supple. Comments: Compression wrapping LEs. Lymphadenopathy: Cervical: No cervical adenopathy. Neurological: Mental Status: She is alert and oriented to person, place, and time. I have reviewed the following results: Hemoglobin AIC Assessment and Plan . Assessment & Plan Sinusitis Persistent symptoms despite two courses of antibiotics (Doxycycline and Amoxicillin). Patient reports nasal congestion, cough with yellow sputum, headache, and right ear soreness. No fever reported. -Start Augmentin for a longer course. Denies allergy to this medication, has tolerated well in the past; allergy list updated per patient indication. -Consider a short course of Prednisone, with caution due to potential blood sugar elevation. Allergic Rhinitis Chronic symptoms managed with Atrovent, Loratadine, and Montelukast. Patient also uses saline nasalspray. -Continue current regimen. Type 2 Diabetes Mellitus Last A1c was 7.7 in January. Blood sugars reported as "up and down." -Continue current management and monitor blood sugars closely, especially with the introduction of Prednisone. -Continue with [place] pharmacist for diabetes management. Lower Extremity Edema Mild, patient is managing with diuretic. -Continue current management. Acute sinusitis, recurrence not specified, unspecified location - predniSONE 20 MG Oral Tablet (Deltasone); Take 2 Tablets by mouth in the morning for 5 days. - Amoxicillin-Pot Clavulanate 875-125 MG Oral Tablet (Augmentin); Take 1 Tablet by mouth in the morning and 1 Tablet before bedtime. Do all this for 10 days. Wrap-Up Follow Up: Return if symptoms worsen or fail to improve. Time: I spent a total of 20-29 minutes (exact time 20 mins) on the date of service in preparation, delivery, and documentation of the care provided to Tiffanie Mercado excluding any time spent in the performance of separately billed services. Text in this note was generated using an [employer] documentation service. I discussed the use of a device to record and summarize our discussion today. All persons present during the encounter consented to its use. documented in this encounter Nursing Notes * Sary Mari LPN - 06/03/2024 10:24 AM EST The patient has been properly identified by confirmation of name and date of . Chief Complaint Patient presents with Status Check Patient is here with complaints of cold symptoms that have come back since being seen on 05/11/[address] Javed. She was prescribed antibiotics and feels this did not work. Complains of yellow mucus andcongestion in chest. documented in this encounter Plan of Treatment Upcoming Encounters Date Type Department Care Team (Late st Contact Info) Description 07/05/2024 2:00 PM EDT Office Visit [facility] [address] [phone] Paula Pan PA-C [address] [place] [address] 07/05/2024 2:40 PM EDT Office Visit Pharmacy, Shiela Ramirez [address] [place] [phone] Shiela [facility] [address] [facility] [place] [address] 09/22/2024 9:30 AM EDT Office Visit Family Practice, Shiela Caban [address] [place] [phone] Sabine Mosley DO [address] [place] [address] 10/18/2024 1:30 PM EDT Office Visit Cardiology, [facility] [address] [place] [address] Danica Grider CRNP [address] [place] [address] Health Maintenance Due Date Last Done Comments [...] Additional history exists CKD PHOS USE SMARTSET 79540 05/13/2024 05/13/2023 HbA1c 07/14/2024 01/14/2024, 07/06, 04/17/2023, Additional history exists Cologuard 08/30/2024 08/30/2021, 08/05, 08/25/2021, Additional history exists Colorectal Cancer Screening 08/30/2024 Albumin/Creatinine Ratio 02/11/2025 024, 01/23/2024, 09/22/2022, Additional history exists CKD HGB USE SMARTSET 82374 04/22/202504/22, 04/22/2024, 04/17/2023, Additional history exists DIG [...] as of this encounter Visit Diagnoses Diagnosis Acute sinusitis, recurrence not specified, unspecified location- Primary documented in this encounter Care Teams Brickmason Supervisor Relationship Specialty Start Date End Date Paula Pan [facility]-C [address] [facility] [place] [address] PCP - General Physician Call Center Operator 04/14/24 documented as of this encounter
--- OUTSIDE RECORDS SUMMARY | 2024-07-03 20:44 | External Medical Summary ---
Author Name Unknown Address Unknown Organization K01:[facility] [place] [facility] [place] [address] [facility] [address] Laboratory Report Ordering Provider Test Date Status JAYSON FUENTES 06/22/2024 11:54:23 Final Observation Date Value Abnormality Reference (Units ) Status HbA1C 06/22/2024 11:54:23 8.5 Above high normal 4. 0-5.6 (%) Final The use of HbA1c to monitor glycemic status is based on normal hemoglobin and HbA composition. This test should not be used in patients with abnormal hemoglobin that affects the half life of the red blood cell or the in vivo glycation rates. Glucose, estimated average 06/22/2024 11:54:23 197 Above high normal <126 (mg/dL) Fin al Performing Location [facility] [place] [address] [facility] [address]
--- OUTSIDE RECORDS SUMMARY | 2024-07-03 20:45 | External Medical Summary | Summary of Care ---
Author Name Unknown Organization [facility] Address [address] [place] [address] Phone [phone] Care Team Providers Care Maths Tutor Name Role Phone Paula Tyler PA-C Primary Care Provider [phone] Reason for Visit * Reason Onset Date Comments Medication Refill 05/26/2024 Encounter Details Date Type Department Care Team (Late st Contact Info) Description 05/26/2024 Refill [facility] [address] [facility] [place] [address] Paula Tyler PA-C [address] [facility] [place], [place] [phone] Primary osteoarthritis of both hips; Hip pain, right; Degeneration of intervertebral disc of lumbar region with discogenic back pain Allergies Active Allergy Reactions Criticality Noted Date Comments Adhesive Tape 11/04/2017 sensitivity Cephalosporins Unknown 09/08/2000 Clarithromycin Rash 09/08/2000 Clavulanic Acid Unknown 02/17/2022 Clobetasol Unknown 02/17/2022 Sulfa Antibiotics High 09/08/2000 Unknown Other Reaction(s): "Sulfa Drugs = rash" Terconazole 09/09/2002 terazol - made her itchy documented as of this encounter (statuses as of 05/26/2024) Medications INSULIN SYRINGES (DISP) 1ML U-100 MISCIndications:D [...] by mouth in the morning. Active Glucosamine-Chond [id number] TABS Take 1 Tab by mouth daily. [...] needed for Wheezing. 1080 mL 5 05/15/19 Active Hydrocortisone Acetate 25 MG Rectal Suppository (Anusol-HC) Administer 1 Suppository into the rectum in the morning and 1 Suppository before bedtime. As directed.. 12 Suppository 09/27/19 Active Additional Information Patient not taking.Reported on 05/11/2024 OneTouch Verio In Vitro Strip (Glucose Blood) Use up to 4 times a day E11.9 100 Strip 11 11/18/19 23 Active OneTouch Verio w/Device Kit Use up to 3 times a day E11.9 1 Kit 11/21/19 Active Trelegy Ellipta 100-62.5-25 MCG/ACT Aerosol Powder Breath ActivatedIndicati ons:COPD, group B, by GOLD 2017 classification ([facility]) Inhale 1 Puff by mouth in the morning. 180 Blister Dosing Unit 3 03/27/20 23 Active Albuterol Sulfate HFA 108 (90 Base) MCG/ACT Inhalation Aerosol SolutionIndicatio ns:COPD, group B, by GOLD 2017 classification ([facility]) Inhale 2 Puffs by mouth every 6 hours as needed for Cough, Shortness of Breath or Wheezing. 18 g 2 07/04/19 24 Active Acetaminophen 325 MG Oral Capsule Take by mouth. Active BD Pen Needle Isamar 2nd Gen 32G X 4 MMIndications:Typ e 2 diabetes mellitus with hemoglobin A1c goal of less than 7.0% ([facility]) Use to inject insulin four times daily E11.9 200 Each 3 09/08/19 24 Active Tamsulosin HCl 0.4 MG Oral Capsule (Flomax) Take 1 Capsule by mouth in the morning. 90 Capsule 3 09/21/19 24 Active OXcarbazepine 150 MG Oral Tablet (Trileptal) Take 1 Tablet by mouth in the morning. 09/16/19 24 Active metFORMIN HCl 1000 MG Oral Tablet (Glucophage)Indic ations:Type 2 diabetes mellitus with hemoglobin A1c goal of less than 7.0% ([facility]) Take 1 Tablet by mouth in the morning and 1 Tablet before bedtime. 180 Tablet 1 10/16/19 24 Active Nystatin 275055 UNIT/GM External Powder (Nystop)Indicatio ns:Melissa rash of groin APPLY 0.5 GRAM TO THE GROIN TWICE DAILY IN THE MORNING AND THE EVENING. 180 g 1 12/01/19 24 Active Nystatin-Triamcin olone 195882-2.1 UNIT/GM-% External Cream (Mycolog)Indicati ons:Melissa rash of [...] 30 Capsule 5 02/03/20 24 Active Ipratropium [place] 0.03 % Nasal Solution (Atrovent) ADMINISTER 2 [...] Oral Tablet (Apixaban)Indicat ions:PAF (paroxysmal atrial fibrillation) ([facility]),Cerebrovasc ular disease, arteriosclerotic, post-stroke TAKE 1 TABLET [...] upset stomach 120 Tablet 05/24/19 25 Active Amoxicillin 875 MG Oral TabletIndications :Acute non-recurrent frontal sinusitis Take 1 Tablet by mouth in the morning and 1 Tablet before bedtime. Do all this for 7 days. 14 Tablet 05/24/19 25 025 Active Metoprolol Succinate ER 100 MG [...] bedtime. 60 Capsule 1 05/26/19 25 Active Pregabalin 50 MG Oral Capsule (Lyrica)Indicatio ns:Primary osteoarthritis of both hips,Hip pain, right,Degeneratio n 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 60 Capsule 1 03/16/20 24 025 Disconti nued(Ref ill) documented as of this encounter (statuses as of 05/26/2024) Active Problems Problem Noted Date Diagnosed Date [...] as of this encounter (statuses as of 05/26/2024) Resolved Problems Problem Noted Date Diagnosed Date [...] colitis 12/09/2012 017 Genetic Sleep Disorder Resea [facility] Other*[id number] 03/02/2012 11/01/2015 Tobacco use disorder 11/20/2011 014 [...] as of this encounter (statuses as of 05/26/2024) Immunizations Name Administration Dates Next Due COVID-19 [...] Telephone Encounter - Paula Tyler PA-C - 05/26/2024 4:02 PM EST Inboxologist Note: Primary osteoarthritis of both hips - Pregabalin 50 MG Oral Capsule (Lyrica); Take 1 Capsule by mouth in the morning and 1 Capsule at noon and 1 Capsule before bedtime. Hip pain, right - Pregabalin 50 MG Oral Capsule (Lyrica); Take 1 Capsule by mouth in the morning and 1 Capsule at noon and 1 Capsule before bedtime. Degeneration of intervertebral disc of lumbar region with discogenic back pain - Pregabalin 50 MG Oral Capsule (Lyrica); Take 1 Capsule by mouth in the morning and 1 Capsule at noon and 1 Capsule before bedtime. Paula Tyler PA-C 05/26/2024 4:02 PM * Telephone Encounter - Paula Tyler PA-C - 05/26/2024 4:01 PM ESTSigned Prescriptions: Disp Refills Pregabalin 50 MG Oral Capsule (Lyrica) 60 Cap*1 Sig: Take 1 Capsule by mouth in the morning and 1 Capsule at noon and 1 Capsule before bedtime. Authorizing Provider: PAULA TYLER * Telephone Encounter - Tiffanie Antonio, [facility] - 05/26/2024 3:31 PM EST Pending Prescriptions: Disp Refills Pregabalin 50 MG Oral Capsule (Lyrica) 60 Cap*1 Sig: Take 1 Capsule by mouth in the morning and 1 Capsule at noon and 1 Capsule before bedtime. * Telephone Encounter - Tiffanie Antonio, [facility] - 05/26/2024 3:30 PM EST I have reviewed the patient’s controlled substance dispensing history in the Prescription Drug Monitoring Program in compliance with the [facility] regulations before prescribing a controlled substance. PDMP checked on 05/26/2024. Pending Prescriptions: Disp Refills Pregabalin 50 MG Oral Capsule (Lyrica) 60 Cap*1 Sig: Take 1 Capsule by mouth in the morning and 1 Capsule at noon and 1 Capsule before bedtime. Last Visit: 05/11/2024 (in office), Visit date not found (telemedicine) Next Visit: 07/05/2024 Date medication was last filled: 04/16/24 Date medication is due for refill: 05/06/24 Pharm[facility]: [id number] [id number] [facility] Is this request for a controlled substance? Yes and Urine Drug Screen Not completed Toxicology results: No results found. However, due to the size of the patient record, not all encounters were searched.Please check Results Review for a complete set of results. Please approve if appropriate. Thank you, Tiffanie Plank, PharmD, [facility] Clinical Pharmacist [facility] ([facility]) 05/26/24 3:30 PM [phone] * Telephone Encounter - Serg Sullivan, multimedia services manager - 05/26/2024 2:02 PM EST Pt has four days of medication remaining Did you pend patient's preferred pharmacy and medication before forwarding?yes Pharmacy: [id number] [address] [facility] Pending Prescriptions: Disp Refills Pregabalin 50 MG Oral Capsule (Lyrica) 60 Cap*1 Sig: Take 1 Capsule by mouth in the morning and 1 Capsule at noon and 1 Capsule before bedtime. Last Visit: 05/11/2024 (in office), Visit date not found (telemedicine) Next Visit: 07/05/2024 If no future appointments scheduled, and last appointment is greater than a year ago, please schedule patient for a follow-up appointment Last date the medication was ordered: 03/16/2024 Is this request for a controlled substance?Yes, What was the last refill date 04/16/2024 w/ [id number] and dosage 50 and Urine Drug Screen Not completed Urine Drug Screen:No results found. However, due [...] Care Team (Late st Contact Info) Description 06/07/2024 2:40 PM EST Office Visit Pharmacy, [facility] [address] [place] [address] [facility] [address] [place] [address] 06/07/2024 3:20 PM EST Pharmacy Pharmacy, [facility] [address] [address] [facility] [address] [place] [address] 07/05/2024 2:00 PM EDT Office Visit [facility] [address] [place] [phone] Paula Tyler PAHattieC [address] [place] [address] 09/22/2024 9:30 AM EDT Office Visit Family Practice, [facility]iela [facility] [address] [place] [phone] Sabine Mosley DO [address] [place] [address] 10/18/2024 1:30 PM EDT Office Visit Cardiology, [facility] [address] [place] [address] Danica Grider CRNP [address] [place] [address] Health Maintenance Due Date Last Done Comments [...] Additional history exists CKD PHOS USE SMARTSET 11830 05/13/2024 05/13/2023 HbA1c 07/14/2024 01/14/2024, 07/06, 04/17/2023, Additional history exists Cologuard 08/30/2024 08/30/2021, 08/05, 08/25/2021, Additional history exists Colorectal Cancer Screening 08/30/2024 Albumin/Creatinine Ratio 02/11/2025 024, 01/23/2024, 09/22/2022, Additional history exists CKD HGB USE SMARTSET 33001 04/22/202504/22, 04/22/2024, 04/17/2023, Additional history exists DIG LEVEL FOR MEDICATION MONITORING YEARLY 04/22/2025 04/22/2024, 05/13/2023, 04/17/2023, Additional history exists O2 ASSESSMENT COMPLETED IN PAST YEAR FOR COPD 05/11/2025 05/11/2024 DTap/Tdap Vaccines (4 - Td or Tdap) [...] encounter Visit Diagnoses Diagnosis Primary osteoarthritis of both hips Primary localized osteoarthrosis, pelvic region and thigh Hip pain, right Pain in joint, pelvic region and thigh Degeneration of intervertebral disc of lumbar region with discogenic back pain documented in this encounter Care Teams Maths Tutor Relationship Specialty Start Date End Date Paula Tyler PA-C [address] [address] PCP - General Physician Steamer Tender 04/14/24 documented as of this encounter
--- OUTSIDE RECORDS SUMMARY | 2024-07-03 20:45 | External Medical Summary | Summary of Care ---
Author Name Unknown Organization [facility] Address [address] [place] [address] Phone [phone] Care Team Providers Care Production Team Advisor Name Role Phone Paula Pan PA-C Primary Care Provider [phone] [phone] Reason for Visit * Reason Comments eRx-Medication Refill Encounter Details Date Type Department Care Team (Late st Contact Info) Description 05/25/2024 Refill [facility] [address] [place] [address] Sabine Mosley, DO [address] [place], [place] [id number] Chronic rhinitis Allergies Active Allergy Reactions Criticality Noted Date [...] by mouth in the morning. Active Glucosamine-Chond lamvpn-FZP-L1 TABS Take 1 Tab by mouth daily. [...] for Wheezing. 1080 mL 5 023 Active Hydrocortisone Acetate 25 MG Rectal Suppository (Anusol-HC) Administer 1 Suppository into the rectum in the morning and 1 Suppository before bedtime. As directed.. 12 Suppository 023 Active Additional Information Patient not taking.Reported on 05/11/2024 OneTouch Verio In Vitro Strip (Glucose Blood) Use up to 4 times a day E11.9 100 Strip 11 023 Active OneTouch Verio w/Device Kit Use up to 3 times a day E11.9 1 Kit 023 Active Trelegy Ellipta 100-62.5-25 MCG/ACT Aerosol Powder Breath ActivatedIndicati ons:COPD, group B, by GOLD 2017 classification ([facility]) Inhale 1 Puff by mouth in the morning. 180 Blister Dosing Unit 3 023 Active Albuterol Sulfate HFA 108 (90 Base) MCG/ACT Inhalation Aerosol SolutionIndicatio ns:COPD, group B, by GOLD 2017 classification ([facility]) Inhale 2 Puffs by mouth every 6 hours as needed for Cough, Shortness of Breath or Wheezing. 18 g 2 024 Active Acetaminophen 325 MG Oral Capsule Take by mouth. Active BD Pen Needle Isamar 2nd Gen 32G X 4 MMIndications:Typ e 2 diabetes mellitus with hemoglobin A1c goal of less than 7.0% ([facility]) Use to inject insulin four times daily E11.9 200 Each 3 024 Active Tamsulosin HCl 0.4 MG Oral Capsule (Flomax) Take 1 Capsule by mouth in the morning. 90 Capsule 3 024 Active OXcarbazepine 150 MG Oral Tablet (Trileptal) Take 1 Tablet by mouth in the morning. 024 Active metFORMIN HCl 1000 MG Oral Tablet (Glucophage)Indic ations:Type 2 diabetes mellitus with hemoglobin A1c goal of less than 7.0% ([facility]) Take 1 Tablet by mouth in the morning and 1 Tablet before bedtime. 180 Tablet 1 024 Active Nystatin 935484 UNIT/GM External Powder (Nystop)Indicatio ns:Melissa rash of groin APPLY 0.5 GRAM TO THE GROIN TWICE DAILY IN THE MORNING AND THE EVENING. 180 g 1 024 Active Nystatin-Triamcin olone 067818-3.1 UNIT/GM-% External Cream (Mycolog)Indicati ons:Melissa rash of [...] goal of less than 8.0% ([facility]) Inject 100 units with meals and [...] bedtime. 30 Capsule 5 024 Active Ipratropium [place] 0.03 % Nasal Solution (Atrovent) ADMINISTER 2 SPRAYS INTO NOSTRIL IN THE MORNING AND 2 SPRAYS BEFORE BEDTIME. 90 mL 4 024 Active traMADol HCl 50 MG Oral Tablet (Ultram)Indicatio ns:Hip pain, left Take 1 Tablet by mouth at bedtime as needed for Pain, Severe. 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 60 Capsule 1 024 Active Torsemide 20 MG Oral Tablet (Demadex)Indicati [...] EVERY DAY 90 Tablet 3 025 Active Sucralfate 1 GM Oral Tablet (Carafate)Indicat ions:Upset stomach One tab by mouth up to 4 times a day as needed for acid reflux or upset stomach 120 Tablet 025 Active Amoxicillin 875 MG Oral TabletIndications :Acute non-recurrent frontal sinusitis Take 1 Tablet by mouth in the morning and 1 Tablet before bedtime. Do all this for 7 days. 14 Tablet 025 2024 Active Metoprolol Succinate ER 100 MG Oral [...] THE MORNING 90 Tablet 2 025 Active Metoprolol Succinate ER 100 MG Oral Tablet Extended Release 24 Hour (toPROL XL) Take 1 Tablet by mouth in the morning and 1 Tablet before bedtime. 180 Tablet 3 024 2024 Discontinued Famotidine 20 MG Oral Tablet (Pepcid) TAKE 1 TABLET BY MOUTH EVERY DAY IN THE MORNING 90 Tablet 1 024 2024 Discontinued Montelukast Sodium 10 MG Oral Tablet (Singulair)Indica tions:Chronic rhinitis TAKE 1 TABLET BY MOUTH EVERY DAY IN THE MORNING 90 Tablet 1 024 2024 Discontinued documented as of this encounter (statuses as [...] colitis 12/09/2012 017 Genetic Sleep Disorder [facility] Other*[id number] 03/02/2012 11/01/2015 Tobacco use disorder 11/20/2011 014 [...] encounter Miscellaneous Notes * Telephone Encounter - May Muniz RP - 05/26/2024 9:10 AM ESTSigned Prescriptions: Disp Refills Metoprolol Succinate ER 100 MG Oral Tablet*180 Ta*2 Sig: TAKE 1 TABLET BY MOUTH IN THE MORNING AND BEFORE BEDTIMEAuthorizing Provider: PAULA PAN User: MAY MUNIZ Famotidine 20 MG Oral Tablet (Pepcid) 90 Tab*1 Sig: TAKE 1 TABLET BY MOUTH EVERYDAY IN THE MORNINGAuthorizing Provider: PAULA PAN User: MAY MUNIZ Montelukast Sodium 10 MG Oral Tablet (Sing*90 Tab*2 Sig: TAKE 1 TABLET BY MOUTH EVERY DAY IN THE MORNINGAuthorizing Provider: PAULA PAN User: MAY MUNIZ documented in this encounter Plan of Treatment Upcoming Encounters Date Type Department Care Team (Late st Contact Info) Description 06/07/2024 2:40 PM EST Office Visit Pharmacy, [facility] [address] [place] [address] [facility] [address] [place] [address] 06/07/2024 3:20 PM EST Pharmacy Pharmacy, [facility] [address] [place] [address] [facility] [address] [place] [address] 07/05/2024 2:00 PM EDT Office Visit Family Practice, [facility] [address] [place] [phone] Paula Pan PA-C [address] [place] [address] 09/22/2024 9:30 AM EDT Office Visit Family Practice, [facility] [address] [place] [phone] Sabine Mosley DO [address] [place] [address] 10/18/2024 1:30 PM EDT Office Visit Cardiology, [facility] [address] [place] [address] Danica Grider CRNP [address] [place] [address] Health Maintenance Due Date Last Done Comments [...] 12/30/2021, Additional history exists GFR 02/27/2024 08/27/2023, 020 10/2023, 04/22/2023, Additional history exists Mammogram 03/26/2024 03/26/2023, 03/06, 02/11/2021, Additional history exists B-12 04/22/2024 04/22/2023, 05/07, 04/29/2021, Additional history exists CKD PHOS USE SMARTSET 84721 05/13/2024 05/13/2023 HbA1c 07/14/2024 01/14/2024, 07/06, 04/17/2023, Additional history exists Cologuard 08/30/2024 08/30/2021, 08/05, 08/25/2021, Additional history exists Colorectal Cancer Screening 08/30/2024 Albumin/Creatinine Ratio 02/11/2025 024, 01/23/2024, 09/22/2022, Additional history exists CKD HGB USE SMARTSET 29071 04/22/202504/22, 04/22/2024, 04/17/2023, Additional history exists DIG [...] as of this encounter Visit Diagnoses Diagnosis Chronic rhinitis documented in this encounter Care Teams Production Team Advisor Relationship Specialty Start Date End Date Paula Pan PA-C [address] [place] [address] [place] [address] PCP - General Physician Call Box Wirer 04/14/24 documented as of this encounter
--- OUTSIDE RECORDS SUMMARY | 2024-07-03 20:45 | External Medical Summary | Summary of Care ---
Author Name Unknown Organization [facility] Address [address] [place] [address] Phone [phone] Care Team Providers Care Inspector Water Pollution Control Name Role Phone Paula Pan PA-C Primary Care Provider [phone] Reason for Visit * Reason Onset Date Comments Medication Refill 05/30/2024 Encounter Details Date Type Department Care Team (Late st Contact Info) Description 05/30/2024 Refill [facility] [address] [place] [phone] Paula Pan PA-C [address] [facility] [place] [address] Allergies Active Allergy Reactions Criticality Noted Date Comments Adhesive Tape 11/04/2017 sensitivity Cephalosporins Unknown 09/08/2000 Clarithromycin Rash 09/08/2000 Clavulanic Acid Unknown 02/17/2022 Clobetasol Unknown 02/17/2022 Sulfa Antibiotics High 09/08/2000 Unknown Other Reaction(s): "Sulfa Drugs = rash" Terconazole 09/09/2002 terazol - made her itchy documented as of this encounter (statuses as of 05/30/2024) Medications INSULIN SYRINGES (DISP) 1ML U-100 MISCIndications:DM [...] by mouth in the morning. Active Glucosamine-Chondr punsi-GZZ-E4 TABS Take 1 Tab by mouth daily. [...] Additional Information Patient not taking.Reported on 05/11/2024 REPUCOMTouch Verio In Vitro Strip (Glucose Blood) Use up to 4 times a day E11.9 100 Strip 11 11/18/19 23 Active OneTouch Verio w/Device Kit Use up to 3 times a day E11.9 1 Kit 11/21/19 Active Albuterol Sulfate HFA 108 (90 Base) MCG/ACT Inhalation Aerosol SolutionIndication s:COPD, group B, by GOLD 2017 classification ([facility]) Inhale 2 Puffs by mouth every 6 hours as needed for Cough, Shortness of Breath or Wheezing. 18 g 2 07/04/19 24 Active Acetaminophen 325 MG Oral Capsule Take by mouth. Active BD Pen Needle Isamar 2nd Gen 32G X 4 MMIndications:Type 2 diabetes mellitus with hemoglobin A1c goal of less than 7.0% ([facility]) Use to inject insulin [...] A1c goal of less than 7.0% ([facility]) Take 1 Tablet by mouth in the morning and 1 Tablet before bedtime. 180 Tablet 1 10/16/19 24 Active Nystatin 832634 UNIT/GM External Powder (Nystop)Indication s:Melissa rash of groin APPLY 0.5 GRAM TO THE GROIN TWICE DAILY IN THE MORNING AND THE EVENING. 180 g 1 12/01/19 24 Active Nystatin-Triamcino lone 474342-1.1 UNIT/GM-% External Cream (Mycolog)Indicatio ns:Melissa rash of [...] hemoglobin A1c goal of less than 8.0% ([facility]) Inject 100 units with [...] 30 Capsule 5 02/03/20 24 Active Ipratropium [place] 0.03 % Nasal Solution (Atrovent) ADMINISTER 2 [...] Oral Tablet (Apixaban)Indicati ons:PAF (paroxysmal atrial fibrillation) ([facility]),Cerebrovascu lar disease, arteriosclerotic, post-stroke TAKE [...] 05/24/19 25 Active Amoxicillin 875 MG Oral TabletIndications: Acute non-recurrent frontal sinusitis Take 1 Tablet by [...] ns:COPD, group B, by GOLD 2017 classification ([facility]) INHALE 1 PUFF BY MOUTH IN THE MORNING 180 Each 3 05/29/19 25 Active documented as of this encounter (statuses as of 05/30/2024) Active Problems Problem Noted Date Diagnosed Date [...] as of this encounter (statuses as of 05/30/2024) Resolved Problems Problem Noted Date Diagnosed Date [...] difficile colitis 12/09/2012 017 Genetic Sleep Disorder [facility] Other*[id number] 03/02/2012 11/01/2015 Tobacco use disorder 11/20/2011 014 [...] as of this encounter (statuses as of 05/30/2024) Immunizations Name Administration Dates Next Due COVID-19 mRNA, LNP-s, No Pre serve, 2-Dose Series (Moderna) 01/14/2021,06/06/2020,05/09/2020 COVID-19, MRNA-LNP, 24-25, P R, 30MCG/0.3ML, IM, 12YRS AND ABOVE (Accessbio-ComirnatSassor) 12/17/2023 COVID-19, MRNA-LNP, PF, 30 M CG/0.3 mL, 12 YRS AND ABOVE, IM (Keko-ComirnatSassor) 12/30/2022 COVID-19, mRNA, LNP-s, PF, B ooster, [...] encounter Miscellaneous Notes * Telephone Encounter - Aleja May CPhT - 05/30/2024 2:47 PM EST Patient calling in regarding metformin. This was last prescribed by PCP office, transferring callerto Medication Refill Line for further assistance. Thank you, Aleja May CPhT Milk Condenser II [facility] 05/30/2024,2:48 PM documented in this encounter Plan of Treatment Upcoming Encounters Date Type Department Care Team (Late st Contact Info) Description 06/07/2024 2:40 PM EST Office Visit Pharmacy, [facility] [address] [place] [address] [facility] [address] [place] [address] 06/07/2024 3:20 PM EST Pharmacy Pharmacy, [facility] [address] [place] [address] [facility] [place] [address] 07/05/2024 2:00 PM EDT Office Visit [facility] [address] [place] [phone] Paula Pan PA-C [address] [place] [address] 09/22/2024 9:30 AM EDT Office Visit [facility] [address] [place] [phone] Sabine Mosley DO [address] [place] [address] 10/18/2024 1:30 PM EDT Office Visit Cardiology, [facility] [address] [place] [address] Danica Grider CRNP [address] [place] [address] Health Maintenance Due Date Last Done Comments [...] Additional history exists CKD PHOS USE SMARTSET 25185 05/13/2024 05/13/2023 HbA1c 07/14/2024 01/14/2024, 07/06, 04/17/2023, Additional history exists Cologuard 08/30/2024 08/30/2021, 08/05, 08/25/2021, Additional history exists Colorectal Cancer Screening 08/30/2024 Albumin/Creatinine Ratio 02/11/20252 024, 01/23/2024, 09/22/2022, Additional history exists CKD HGB USE SMARTSET 38505 04/22/202504/22, 04/22/2024, 04/17/2023, Additional history exists DIG [...] filedocumented as of this encounter Care Teams Inspector Water Pollution Control Relationship Specialty Start Date End Date Paula Pan PA-C [address] [place] [address] PCP - General Physician Senior Attorney 04/14/24 documented as of this encounter
--- OUTSIDE RECORDS SUMMARY | 2024-07-03 20:45 | External Medical Summary | Summary of Care ---
Author Name Unknown Organization [facility] Address [address] [place] [address] Phone [phone] Care Team Providers Care Foster Care Case Manager Name Role Phone Paula Pan PA-C Primary Care Provider [phone] [phone] Reason for Visit * Reason Onset Date Comments Medication Refill 05/30/2024 Encounter Details Date Type Department Care Team (Late st Contact Info) Description 05/30/2024 Refill [facility] [address] [place] [phone] Paula Pan PA-C [address] [facility] [place] [address] Allergies Active Allergy Reactions [...] by mouth in the morning. Active Glucosamine-Chondr eyrrl-DYK-E1 TABS Take 1 Tab by mouth daily. [...] Additional Information Patient not taking.Reported on 05/11/2024 PaperlitTouch Verio In Vitro Strip (Glucose Blood) Use [...] 180 Tablet 1 10/16/19 24 Active Nystatin 369270 UNIT/GM External Powder (Nystop)Indication s:Melissa rash of groin APPLY 0.5 GRAM TO THE GROIN TWICE DAILY IN THE MORNING AND THE EVENING. 180 g 1 12/01/19 24 Active Nystatin-Triamcino lone 404184-3.1 UNIT/GM-% External Cream (Mycolog)Indicatio ns:Melissa rash of [...] 30 Capsule 5 02/03/20 24 Active Ipratropium [place] 0.03 % Nasal Solution (Atrovent) ADMINISTER 2 [...] (Apixaban)Indicati ons:PAF (paroxysmal atrial fibrillation) ([facility]),Cerebrovascu lar disease, arteriosclerotic, post-stroke TAKE 1 [...] 2017 classification ([facility]) INHALE 1 PUFF BY MOUTH IN [...] difficile colitis 12/09/2012 017 Genetic Sleep Disorder [facility] Other*[id number] 03/02/2012 11/01/2015 Tobacco use disorder 11/20/2011 014 [...] P R, 30MCG/0.3ML, IM, 12YRS AND ABOVE (MiniLuxe-ComirnatHome Inventory S[pecialists) 12/17/2023 COVID-19, MRNA-LNP, PF, 30 M CG/0.3 mL, 12 YRS AND ABOVE, IM (Enmetric Systems-ComirnatHome Inventory S[pecialists) 12/30/2022 COVID-19, mRNA, LNP-s, PF, B ooster, [...] further assistance. Thank you, Aleja May CPhT Transportation Supervisor II [facility] 05/30/2024,2:48 PM documented in this encounter Plan of Treatment Upcoming Encounters Date Type Department Care Team (Late st Contact Info) Description 06/07/2024 2:40 PM EST Office Visit Pharmacy, [facility] [address] [place] [address] [facility] [address] [place] [address] 06/07/2024 3:20 PM EST Pharmacy Pharmacy, [facility] [address] [place] [address] [facility] [place] [address] 07/05/2024 2:00 PM EDT Office Visit [facility] [address] [address] [place] [phone] Paula Pan PA-C [address] [place] [address] 09/22/2024 9:30 AM EDT Office Visit [facility] [address] [place] [phone] Sabine Mosley DO [address] [place] [address] 10/18/2024 1:30 PM EDT Office Visit Cardiology, [facility] [address] [place] [address] Danica Grider CRNP [address] [place] [address] Health Maintenance Due Date Last Done Comments [...] Additional history exists CKD PHOS USE SMARTSET 74216 05/13/2024 05/13/2023 HbA1c 07/14/2024 01/14/2024, 07/06, 04/17/2023, Additional history exists Cologuard 08/30/2024 08/30/2021, 08/05, 08/25/2021, Additional history exists Colorectal Cancer Screening 08/30/2024 Albumin/Creatinine Ratio 02/11/20252 024, 01/23/2024, 09/22/2022, Additional history exists CKD HGB USE SMARTSET 75837 04/22/202504/22, 04/22/2024, 04/17/2023, Additional history exists DIG [...] filedocumented as of this encounter Care Teams Foster Care Case Manager Relationship Specialty Start Date End Date Paula Pan PA-C [address] [place] [address] PCP - General Physician Cloth Sander 04/14/24 documented as of this encounter
--- OUTSIDE RECORDS SUMMARY | 2024-07-03 20:45 | External Medical Summary | Summary of Care ---
Author Name Unknown Organization [facility] Address [address] [place] [address] Phone [phone] Care Team Providers Care Equipment Technician Name Role Phone Paula Pan PA-C Primary Care Provider [phone] [phone] Reason for Visit * Reason Onset Date Comments eRx-Medication Refill Medication Refill 05/27/2024 Markleleticia Ellipt a 100-62.5-25 MCG/ACT Aerosol Powder Breath Activated Encounter Details Date Type Department Care Team (Late st Contact Info) Description 05/27/2024 Refill [facility] [place] [address] [place] [place] [address] Denilson Holbrook PA-C [address] [facility] [place] [address] COPD, group B, by GOLD 2017 classification ([facility]) Allergies Active Allergy Reactions Criticality Noted Date Comments Adhesive Tape 11/04/2017 sensitivity Cephalosporins Unknown 09/08/2000 Clarithromycin Rash 09/08/2000 Clavulanic Acid Unknown 02/17/2022 Clobetasol Unknown 02/17/2022 Sulfa Antibiotics High 09/08/2000 Unknown Other Reaction(s): "Sulfa Drugs = rash" Terconazole 09/09/2002 terazol - made her itchy documented as of this encounter (statuses as of 05/29/2024) Medications INSULIN SYRINGES (DISP) 1ML U-100 MISCIndications:D [...] by mouth in the morning. Active Glucosamine-Chond ucjodj-SWL-Q7 TABS Take 1 Tab by mouth daily. [...] Mouthpiece Kit Please provide mask 1 Kit 11/07/2 022 Active Saccharomyces boulardii 250 MG Oral [...] Additional Information Patient not taking.Reported on 05/11/2024 [employer] LimitedTouch Verio In Vitro Strip (Glucose Blood) Use up to 4 times a day E11.9 100 Strip 11 023 Active OneTouch Verio w/Device Kit Use up to 3 times a day E11.9 1 Kit 023 Active Albuterol Sulfate HFA 108 (90 Base) MCG/ACT Inhalation Aerosol SolutionIndicatio ns:COPD, group B, by GOLD 2017 classification ([facility]) Inhale 2 Puffs by mouth every 6 hours as needed for Cough, Shortness of Breath or Wheezing. 18 g 2 024 Active Acetaminophen 325 MG Oral Capsule Take by mouth. Active BD Pen Needle Isamar 2nd Gen 32G X 4 MMIndications:Typ e 2 diabetes mellitus with hemoglobin A1c goal of less than 7.0% ([facility]) Use to inject insulin four [...] hemoglobin A1c goal of less than 7.0% ([facility]) Take 1 Tablet by mouth in the morning and 1 Tablet before bedtime. 180 Tablet 1 024 Active Nystatin 054729 UNIT/GM External Powder (Nystop)Indicatio ns:Melissa rash of groin APPLY 0.5 GRAM TO THE GROIN TWICE DAILY IN THE MORNING AND THE EVENING. 180 g 1 024 Active Nystatin-Triamcin olone 957102-9.1 UNIT/GM-% External Cream (Mycolog)Indicati ons:Melissa rash of [...] hemoglobin A1c goal of less than 8.0% ([facility]) Inject 100 units with meals and [...] bedtime. 30 Capsule 5 024 Active Ipratropium [place] 0.03 % Nasal Solution (Atrovent) ADMINISTER 2 [...] Oral Tablet (Apixaban)Indicat ions:PAF (paroxysmal atrial fibrillation) ([facility]),Cerebrovasc ular disease, arteriosclerotic, post-stroke TAKE 1 TABLET [...] ons:COPD, group B, by GOLD 2017 classification ([facility]) INHALE 1 PUFF BY MOUTH IN THE MORNING 180 Each 3 025 Active Trelegy Ellipta 100-62.5-25 MCG/ACT Aerosol Powder Breath ActivatedIndicati ons:COPD, group B, by GOLD 2017 classification ([facility]) Inhale 1 Puff by mouth in the morning. 180 Blister Dosing Unit 3 023 2024 Discontinued documented as of this encounter (statuses as of 05/29/2024) Active Problems Problem Noted Date Diagnosed Date [...] as of this encounter (statuses as of 05/29/2024) Resolved Problems Problem Noted Date Diagnosed Date [...] colitis 12/09/2012 017 Genetic Sleep Disorder [facility] Other*[id number] 03/02/2012 11/01/2015 Tobacco use disorder 11/20/2011 014 [...] as of this encounter (statuses as of 05/29/2024) Immunizations Name Administration Dates Next Due COVID-19 mRNA, LNP-s, No Pre serve, 2-Dose Series (Moderna) 01/14/2021,06/06/2020,05/09/2020 COVID-19, MRNA-LNP, 24-25, P R, 30MCG/0.3ML, IM, 12YRS AND ABOVE (Fabricly-ComirnatSopheon) 12/17/2023 COVID-19, MRNA-LNP, PF, 30 M CG/0.3 mL, 12 YRS AND ABOVE, IM (ideacts innovations-Comirnaty) 12/30/2022 COVID-19, mRNA, LNP-s, PF, B ooster, [...] encounter Miscellaneous Notes * Telephone Encounter - Gus Mena MD - 05/29/2024 5:51 PM EST Signed Prescriptions: Disp Refills Trelegy Ellipta 100-62.5-25 MCG/ACT Aeroso*180 Ea*3 Sig: INHALE 1 PUFF BY MOUTH IN THE MORNINGAuthorizing Provider: GUS MENA * Telephone Encounter - Gus Mena MD - 05/29/2024 5:50 PM EST Signed Prescriptions: Disp Refills Trelegy Ellipta 100-62.5-25 MCG/ACT Aeroso*180 Ea*3 Sig: INHALE 1 PUFF BY MOUTH IN THE MORNING Authorizing Provider: GUS MENA * Telephone Encounter - Ashanti Guardado LPN - 05/27/2024 8:21 AM ESTPending Prescriptions: Disp Refills Consuelo Ellipta 100-62.5-25 MCG/ACT Aeroso*180 Ea*3 Sig: Inhale1 Puff by mouth in the morning. documented in this encounter Plan of Treatment Upcoming Encounters Date Type Department Care Team (Late st Contact Info) Description 06/07/2024 2:40 PM EST Office Visit Pharmacy, [facility] [address] [place] [address] [facility] [address] [place] [address] 06/07/2024 3:20 PM EST Pharmacy Pharmacy, [facility] [address] [address] [facility] [address] [place] [place] [address] 07/05/2024 2:00 PM EDT Office Visit [facility], [facility]iela [facility] [address] [place] [phone] Paula Pan PA-C [address] [place] [id number] 09/22/2024 9:30 AM EDT Office Visit [facility], Shiela [address] [phone] Sabine Mosley, DO [address] [place] [address] 10/18/2024 1:30 PM EDT Office Visit Cardiology, [facility] [address] [place] [address] Danica Grider CRNP [address] [place] [address] Health Maintenance Due Date Last Done Comments [...] Additional history exists CKD PHOS USE SMARTSET 74752 05/13/2024 05/13/2023 HbA1c 07/14/2024 01/14/2024, 07/06, 04/17/2023, Additional history exists Cologuard 08/30/2024 08/30/2021, 08/05, 08/25/2021, Additional history exists Colorectal Cancer Screening 08/30/2024 Albumin/Creatinine Ratio 02/11/20252 024, 01/23/2024, 09/22/2022, Additional history exists CKD HGB USE SMARTSET 41670 04/22/202504/22, 04/22/2024, 04/17/2023, Additional history exists DIG [...] COPD, group B, by GOLD 2017 classification (HCC) documented in this encounter Care Teams Equipment Technician Relationship Specialty Start Date End Date Paula Pan PA-C [address] [place] [address] PCP - General Physician Lbd Teacher 04/14/24 documented as of this encounter
--- OUTSIDE RECORDS SUMMARY | 2024-07-03 20:45 | External Medical Summary | Summary of Care ---
Author Name Unknown Organization [facility] Address [address] [place] [address] Phone [phone] Care Team Providers Care Mass Spectrometry Specialist Name Role Phone Paula Pan PA-C Primary Care Provider [phone] Reason for Visit * Reason Onset Date Comments eRx-Medication Refill Medication Refill 05/27/2024 Markleleticia Ellipt a 100-62.5-25 MCG/ACT Aerosol Powder Breath Activated Encounter Details Date Type Department Care Team (Late st Contact Info) Description 05/27/2024 Refill Pulmonary Medicine [place] [address] [place] [phone] Denilson Holbrook PA-C [address] [facility] [place] [address] COPD, group B, by GOLD 2017 classification ([facility]) Allergies Active Allergy Reactions Criticality Noted Date [...] by mouth in the morning. Active Glucosamine-Chond [id number] TABS Take 1 Tab by mouth daily. [...] Additional Information Patient not taking.Reported on 05/11/2024 [email or web address] Verio In Vitro Strip (Glucose Blood) Use up to 4 times a day E11.9 100 Strip 11 023 Active OneTouch Verio w/Device Kit Use up to 3 times a day E11.9 1 Kit 023 Active Albuterol Sulfate HFA 108 (90 Base) MCG/ACT Inhalation Aerosol SolutionIndicatio ns:COPD, group B, by GOLD 2017 classification ([facility]) Inhale 2 Puffs by mouth every 6 hours as needed for Cough, Shortness of Breath or Wheezing. 18 g 2 024 Active Acetaminophen 325 MG Oral Capsule Take by mouth. Active BD Pen Needle Isamar 2nd Gen 32G X 4 MMIndications:Typ e 2 diabetes mellitus with hemoglobin A1c goal of less than 7.0% ([facility]) Use to inject insulin four [...] hemoglobin A1c goal of less than 7.0% ([facility]) Take 1 Tablet by mouth in the morning and 1 Tablet before bedtime. 180 Tablet 1 024 Active Nystatin 877731 UNIT/GM External Powder (Nystop)Indicatio ns:Melissa rash of groin APPLY 0.5 GRAM TO THE GROIN TWICE DAILY IN THE MORNING AND THE EVENING. 180 g 1 024 Active Nystatin-Triamcin olone 713393-3.1 UNIT/GM-% External Cream (Mycolog)Indicati ons:Melissa rash of [...] hemoglobin A1c goal of less than 8.0% ([facility]) Inject 100 units with meals [...] bedtime. 30 Capsule 5 024 Active Ipratropium [place] 0.03 % Nasal Solution (Atrovent) ADMINISTER 2 [...] Oral Tablet (Apixaban)Indicat ions:PAF (paroxysmal atrial fibrillation) ([facility]),Cerebrovasc ular disease, arteriosclerotic, post-stroke TAKE [...] ons:COPD, group B, by GOLD 2017 classification ([facility]) INHALE 1 PUFF BY MOUTH IN THE MORNING 180 Each 3 025 Active Trelegy Ellipta 100-62.5-25 MCG/ACT Aerosol Powder Breath ActivatedIndicati ons:COPD, group B, by GOLD 2017 classification ([facility]) Inhale 1 Puff by mouth [...] colitis 12/09/2012 017 Genetic Sleep Disorder [facility] Other*[id number] 03/02/2012 11/01/2015 Tobacco use disorder 11/20/2011 014 [...] P R, 30MCG/0.3ML, IM, 12YRS AND ABOVE ([employer]irnat[employer]ewa) 12/17/2023 COVID-19, MRNA-LNP, PF, 30 M CG/0.3 mL, 12 YRS AND ABOVE, IM ([employer]-Comirnaty) 12/30/2022 COVID-19, mRNA, LNP-s, PF, B ooster, [...] 06/07/2024 2:40 PM EST Office Visit Pharmacy, [facility] [address] [address] [facility] [address] [address] 06/07/2024 3:20 PM EST Pharmacy Pharmacy, [facility] [address] [address] [facility] [address] [place] [address] 07/05/2024 2:00 PM EDT Office Visit [facility], [address]iel[address] [phone] Paula Pan PA-C [address] [phone] 09/22/2024 9:30 AM EDT Office Visit [facility], [address] [phone] Sabine Mosley, DO [address] [address] 10/18/2024 1:30 PM EDT Office Visit Cardiology, [facility] [address] [place] [address] Danica Grider CRNP [address] [place] [address] Health Maintenance Due Date Last Done Comments [...] Additional history exists CKD PHOS USE SMARTSET 17401 05/13/2024 05/13/2023 HbA1c 07/14/2024 01/14/2024, 07/06, 04/17/2023, Additional history exists Cologuard 08/30/2024 08/30/2021, 08/05, 08/25/2021, Additional history exists Colorectal Cancer Screening 08/30/2024 Albumin/Creatinine Ratio 02/11/20252 024, 01/23/2024, 09/22/2022, Additional history exists CKD HGB USE SMARTSET 82461 04/22/202504/22, 04/22/2024, 04/17/2023, Additional history exists DIG [...] (HCC) documented in this encounter Care Teams Mass Spectrometry Specialist Relationship Specialty Start Date End Date Paula Pan PA-C [address] [address] PCP - General Physician Recorder Of Deeds 04/14/24 documented as of this encounter
--- OUTSIDE RECORDS SUMMARY | 2024-07-03 20:45 | External Medical Summary | Summary of Care ---
Author Name Unknown Organization [facility] Address [address] [place] [address] Phone [phone] Care Team Providers Care Belting And Webbing Inspector Name Role Phone Paula Tyler PA-C Primary Care Provider [phone] Reason for Visit * Reason Onset Date Comments Medication Refill 05/30/2024 Encounter Details Date Type Department Care Team (Late st Contact Info) Description 05/30/2024 Refill [facility] [address] [facility] [place] [address] Paula Tyler PA-C [address] [facility] [place] [address] Type 2 diabetes mellitus with hemoglobin A1c goal of less than 7.0% ([facility]) Allergies Active Allergy Reactions Criticality Noted Date Comments Adhesive Tape 11/04/2017 sensitivity Cephalosporins Unknown 09/08/2000 Clarithromycin Rash 09/08/2000 Clavulanic Acid Unknown 02/17/2022 Clobetasol Unknown 02/17/2022 Sulfa Antibiotics High 09/08/2000 Unknown Other Reaction(s): "Sulfa Drugs = rash" Terconazole 09/09/2002 terazol - made her itchy documented as of this encounter (statuses as of 06/01/2024) Medications INSULIN SYRINGES (DISP) 1ML U-100 MISCIndications:D [...] by mouth in the morning. Active Glucosamine-Chond [id number]-[id number] TABS Take 1 Tab by mouth daily. [...] Additional Information Patient not taking.Reported on 05/11/2024 [employer]Touch Verio In Vitro Strip (Glucose Blood) Use up to 4 times a day E11.9 100 Strip 11 11/18/19 23 Active OneTouch Verio w/Device Kit Use up to 3 times a day E11.9 1 Kit 11/21/19 23 Active Albuterol Sulfate HFA 108 (90 Base) MCG/ACT Inhalation Aerosol SolutionIndicatio ns:COPD, group B, by GOLD 2017 classification ([facility]) Inhale 2 Puffs by mouth every 6 hours as needed for Cough, Shortness of Breath or Wheezing. 18 g 2 07/04/19 24 Active Acetaminophen 325 MG Oral Capsule Take by mouth. Active BD Pen Needle Isamar 2nd Gen 32G X 4 MMIndications:Typ e 2 diabetes mellitus with hemoglobin A1c goal of less than 7.0% ([facility]) Use to inject insulin four times daily E11.9 200 Each 3 09/08/19 24 Active Tamsulosin HCl 0.4 MG Oral Capsule (Flomax) Take 1 Capsule by mouth in the morning. 90 Capsule 3 09/21/19 24 Active OXcarbazepine 150 MG Oral Tablet (Trileptal) Take 1 Tablet by mouth in the morning. 09/16/19 24 Active Nystatin 674553 UNIT/GM External Powder (Nystop)Indicatio ns:Melissa rash of groin APPLY 0.5 GRAM TO THE GROIN TWICE DAILY IN THE MORNING AND THE EVENING. 180 g 1 12/01/19 24 Active Nystatin-Triamcin olone 792819-7.1 UNIT/GM-% External Cream (Mycolog)Indicati ons:Melissa rash of [...] hemoglobin A1c goal of less than 8.0% ([facility]) Inject 100 units with meals [...] 30 Capsule 5 02/03/20 24 Active Ipratropium [place] 0.03 % Nasal Solution (Atrovent) ADMINISTER 2 [...] Oral Tablet (Apixaban)Indicat ions:PAF (paroxysmal atrial fibrillation) ([facility]),Cerebrovasc ular disease, arteriosclerotic, post-stroke TAKE [...] ons:COPD, group B, by GOLD 2017 classification ([facility]) INHALE 1 PUFF BY MOUTH IN THE MORNING 180 Each 3 05/29/19 25 Active metFORMIN HCl 1000 MG Oral Tablet (Glucophage)Indic ations:Type 2 diabetes mellitus with hemoglobin A1c goal of less than 7.0% ([facility]) Take 1 Tablet by mouth in the morning and 1 Tablet before bedtime. 180 Tablet 1 06/01/19 25 Active metFORMIN HCl 1000 MG Oral Tablet (Glucophage)Indic ations:Type 2 diabetes mellitus with hemoglobin A1c goal of less than 7.0% ([facility]) Take 1 Tablet by mouth in the morning and 1 Tablet before bedtime. 180 Tablet 1 10/16/19 24 025 Disconti nued(Ref ill) documented as of this encounter (statuses as of 06/01/2024) Active Problems Problem Noted Date Diagnosed Date [...] as of this encounter (statuses as of 06/01/2024) Resolved Problems Problem Noted Date Diagnosed Date [...] difficile colitis 12/09/2012 017 Genetic Sleep Disorder [facility] Other*[id number] 03/02/2012 11/01/2015 Tobacco use disorder 11/20/2011 014 [...] CVA 07/02/2004 07/20/2008 Overview (07/20/2008): Modified per [facility] protocol #8 Asthma exacerbation in COPD 07/15/2002 04/08/2018 Other chronic sinusitis 07/15/200209/05 ADJ DISORDER W/DEPRES MOOD 07/15/2002 0 12/09/2019 DM, UNCONTROLLED, TYPE II Tobacco use disorder 012 Chronic sinusitis 09/24/2016 Allergic rhinitis 11/20/2011 NON ALLERGIC RHINITIS 2011 Sensorineural hearing loss, bilateral 09/24/2016 Presbyacusis 05/06/2022 documented as of this encounter (statuses as of 06/01/2024) Immunizations Name Administration Dates Next Due COVID-19 mRNA, LNP-s, No Pre serve, 2-Dose Series ([employer]) 01/14/2021,06/06/2020,05/09/2020 COVID-19, MRNA-LNP, 24-25, P R, 30MCG/0.3ML, IM, 12YRS AND ABOVE ([employer]-Comirnat[employer]) 12/17/2023 COVID-19, MRNA-LNP, PF, 30 M CG/0.3 mL, 12 YRS AND ABOVE, IM ([employer]-ComirnatCodekko) 12/30/2022 COVID-19, mRNA, LNP-s, PF, B ooster, [...] encounter Miscellaneous Notes * Telephone Encounter - Wendy Cruz [facility] - 06/01/2024 8:24 AM ESTSigned Prescriptions: Disp Refills metFORMIN HCl 1000 MG Oral Tablet (Glucoph*180 Ta*1 Sig: Take 1 Tablet by mouth in the morning and 1 Tablet before bedtime. Authorizing Provider: PAULA TYLER User: WENDY CRUZ * Telephone Encounter - Bianka Daniels, snowboard instructor - 05/30/2024 2:49 PM EST Did you pend patient's preferred pharmacy and medication before forwarding?yes Pharmacy: [id number] [address] [facility] Pending Prescriptions: Disp Refills metFORMIN HCl 1000 MG Oral Tablet (Glucop*180 Ta*1 Sig: Take 1 Tablet by mouth in the morning and 1 Tablet before bedtime. Last Visit: 05/11/2024 (in office), Visit date not found (telemedicine) Next Visit: 07/05/2024 If no future appointments scheduled, and last appointment is greater than a year ago, please schedule patient for a follow-up appointment Last date the medication was ordered: 10/16/23 Is this request for a controlled substance?No [...] 06/07/2024 2:40 PM EST Office Visit Pharmacy, [facility] [address] [address] [address] [facility] [address] [place] [address] 06/07/2024 3:20 PM EST Pharmacy Pharmacy, [facility] [address] [address] [address] [facility] [address] [address] 07/05/2024 2:00 PM EDT Office Visit [facility] [address] [facility] [place] [phone] Paula Tyler PA-C [address] [address] 09/22/2024 9:30 AM EDT Office Visit Family Practice, [place] [facility] [address] [place] [phone] Sabine Mosley DO [address] [address] 10/18/2024 1:30 PM EDT Office Visit Cardiology, [facility] [address] [place] [address] Danica Grider CRNP [address] [place] [address] Health Maintenance Due Date Last Done Comments Fecal Occult Blood Test 1997 Sigmoidoscopy 1997 Adult Wellness Visit 2018 Colonoscopy 01/03/2020 01/02/2010 Depression Monitoring 01/19/2021 01/20/2020 Diabetic Eye Exam 06/17/2023 06/16/2022, , 03/23/2020, Additional history exists Diabetic Foot Exam 09/23/2023 09/22/2022, 0 08/22/2021, 11/16/2020, Additional history exists DXA Scan 01/04/2024 01/03/2019, 11/2013, 06/12/2000 COVID-19 Vaccine (3 - Pfizer risk series) 01/14/2024 12/17/2023, 12/30/2022, 12/30/2021, Additional history exists GFR 02/27/2024 08/27/2023, 10/2023, 04/22/2023, Additional history exists Mammogram 03/26/2024 03/26/2023, 03/06, 02/11/2021, Additional history exists B-12 04/22/2024 04/22/2023, 05/07, 04/29/2021, Additional history exists CKD PHOS USE SMARTSET 47474 05/13/2024 05/13/2023 HbA1c 07/14/2024 01/14/2024, 07/06, 04/17/2023, Additional history exists Cologuard 08/30/2024 08/30/2021, 08/05, 08/25/2021, Additional history exists Colorectal Cancer Screening 08/30/2024 Albumin/Creatinine Ratio 02/11/2025 024, 01/23/2024, 09/22/2022, Additional history exists CKD HGB USE SMARTSET 54980 04/22/202504/22, 04/22/2024, 04/17/2023, Additional history exists DIG [...] than 7.0% (HCC) documented in this encounter Care Teams Belting And Webbing Inspector Relationship Specialty Start Date End Date Paula Tyelr PA-C [address] [place] [address] PCP - General Physician Safety Relief Valve Technician 04/14/24 documented as of this encounter
[2024-07-03 21:26] LABS: Appearance Urine Clear (Clear); Bacteria Urine Automated None Seen (None Seen); Bilirubin Urine Negative (Negative); Blood Urine Negative (Negative); Cast Urine Automated 0-2 /lpf (0-2); Color Urine Dark Yellow; Epithelial Cell Urine Auto 0-2 /hpf (0-2); Glucose Urine UA Negative (Negative); Ketones Urine Negative (Negative); Leukocyte Esterase Urine Negative (Negative); Nitrite Urine Negative (Negative); Protein Urine 1+ (Negative); RBC Urine Automated 0-2 /hpf (0-2); Urobilinogen Urine Negative (Negative); WBC Urine Automated 0-5 /hpf (0-5); pH Urine 7.5 (4.5-7.5)
[2024-07-03] MEDS: LEVALBUTEROL 1.25 MG/3 ML NEB NEB STA (21:35)
[2024-07-03 21:39] LABS: Basophils # (auto) 0.08 K/uL (0.00-0.20); Basophils % (auto) 0.4 %; Eosinophils # (auto) 0.08 K/uL (0.00-0.50); Eosinophils % (auto) 0.4 %; Hematocrit (blood only) 32.4 % (37.0-47.0); Hemoglobin 9.8 g/dl (12.0-16.0); Immature Granulocytes # (auto) 0.13 K/uL (0.01-0.20); Immature Granulocytes % (auto) 0.7 %; Lymphocytes # (auto) 2.13 K/uL (1.20-3.40); Lymphocytes % (auto) 11.2 %; Mean Corpuscular Hemoglobin 24.4 pg (25.0-34.0); Mean Corpuscular Hgb Conc 30.2 g/dL (32.0-36.0); Mean Corpuscular Volume 80.6 fL (80.0-100.0); Mean Platelet Volume 11.7 fL (9.4-12.4); Monocytes # (auto) 1.05 K/uL (0.11-0.59); Monocytes % (auto) 5.5 %; Neutrophils # (auto) 15.61 K/uL (1.40-6.50); Neutrophils % (auto) 81.8 %; Platelet Count 156 K/uL (130-400); RDW Coefficient of Variation 19.3 % (11.5-14.5); RDW Standard Deviation 56.2 fL (36.4-46.3); Red Blood Count 4.02 M/uL (4.20-5.40); White Blood Count 19.08 K/ul (4.8-10.8)
[2024-07-03 21:40] LABS: Albumin Globulin Ratio 1.1 (0.9-2); Albumin Level 4.1 gm/dl (3.4-5.0); BUN Creatinine Ratio 19.3 (10-20); Bilirubin,Total 1.1 mg/dl (0.2-1.0); Calcium 9.6 mg/dl (8.6-10.3); Creatinine Clr Calc Pharmacy 89.1 ml/min; Globulin 3.6 gm/dl (2.5-4.0); Magnesium 1.3 mg/dl (1.7-2.4); Potassium 4.3 mmol/L (3.5-5.1); Total Protein 7.7 gm/dl (6.0-8.3)
--- NOTE | 2024-07-03 21:52 | Emergency Department Note ---
Impression & Plan Acute hypoxemic respiratory failure, REID (dyspnea on exertion), Acute exacerbation of CHF (congestive heart failure), Bilateral cellulitis of lower leg, COPD (chronic obstructive pulmonary disease) ED Provider Note NAME: ASHER JACKSON AGE: 73 SEX: F : 1950 ARRIVES VIA: Walk-In INFORMANT: Patient, Nursing report ED PROVIDER(S): Denilson Silverio MD CHIEF COMPLAINT: Shortness of breath MEDICAL DECISION MAKING: Patient presents with the above. IV was established and blood work is obtained. Chest x-ray obtained. Patient did have blood cultures completed along with lactate and procalcitonin. Patient does have significant lower extremity edema and likely cellulitis. Patient was ordered IV Zosyn after discussing with pharmacy to ensure that patient is tolerated this medication the past given her prior allergy history. Patient's chest x-ray by my read shows pulmonary edema with possible concomitant right lower lobe pneumonia. Patient was placed on BiPAP as the patient does have evidence of volume overload. Blood work shows a white count of 19. Hemoglobin 9.8 which is chronic and stable. Patient's platelet count is unremarkable. Kidney function unremarkable lactate initially of 2.2 with a BSG 187 nonfasting not DKA. Magnesium 1.3. Patient was ordered 1 g for replacement. Troponin not elevated. BNP 246. Patient patient's procalcitonin is not elevated. Urinalysis negative for blood or infection. BioFire negative. Patient was ordered IV Lasix [address] does not show obvious obstructing stone. I did speak the on-call hospitalist service Dr. Palmer and the patient was admitted to the medicine service. Patient comfortable on her current BiPAP. Respiratory rate improved and not hypoxic. Critical Care: I have personally spent 77 minutes of critical care time in direct management of this patient. This includes bedside care, interpretation of diagnostic studies, and testing, discussion with consultants, patient, and family members, and other require inpatient management activities. This 77 minutes is in excess of all separately billable procedures. Discussion w/ other healthcare providers: Respiratory therapy Dr. Palmer inpatient medicine service Prior /Outside records reviewed: None Differential diagnosis: Reactive airway disease, pneumonia, pneumothorax, COPD, CHF, ACS, pulmonary embolism, musculoskeletal, GERD as well as other pathologies were considered. Diagnostics, as interpreted by me: ECG: A-fib, rate of 91, wide QRS, right bundle branch block. No obvious ST elevations. Cardiac monitoring: An order was placed for continuous cardiac monitoring. The monitor shows a rate of 95 with regular irregular rhythm. Patient was placed on pulse oximetry Medical decision rules: None Imaging studies: I informally interpreted the patient's chest x-ray shows pulmonary edema possible right lower lobe pneumonia with formal report to follow. HPI: Patient presents due to concern for difficulty with breathing. The patient states that when she woke up this morning she was having difficulty with breathing exertional dyspnea. The patient does have a history of CHF as well as COPD. The patient reports that she has been using her nebulizer with mild improvement. Patient states that she essentially waited until her daughter got home from work so she did not have to come in by ambulance. Patient states that she is compliant with medications. Patient denies any chest pains. Patient states that she has had some cough. She does have some urinary hesitancy and was concerned about the possibility of a bladder stone. Patient reports that she has had a prior history of obstructing kidney stones. Patient denies any falls or trauma. Patient does believe that her legs are more swollen. Patient denies any abdominal pain. No nausea or vomiting. Patient does wear CPAP at night. Patient does report that she is more short of breath lying flat. PAST MEDICAL HISTORY: See Below PAST SURGICAL HISTORY: See Below SOCIAL HISTORY: See Below HOME MEDICATIONS: See Below ALLERGIES: See Below VITALS: See Below PHYSICAL EXAMINATION: GENERAL: NAD, non-toxic. Nasal cannula in place. EYE EXAM: Normal conjunctiva. PERRL, no anisocoria and EOM's grossly intact w/o pain. OROPHARYNX: Moist mucus membranes, grossly normal dentition. NECK: Trachea midline, no stridor. Supple, no nuchal rigidity, no adenopathy, non-tender. No signs of meningismus. FROM of the neck with good chin to chest and neck extension. LUNGS: Bibasilar crackles, wheezing bilaterally. Normal chest wall mechanics. HEART: Irregularly irregular, no MRG. ABDOMEN: Abdomen soft, non-tender, no masses, no rebound or guarding. BACK: No CVA TTP. SKIN: No rashes and no bruising. UPPER EXTREMITIES: Upper extremities are grossly normal. LOWER EXTREMITIES: Bilateral lower extremity edema, mild pitting, significant erythema and warmth noted. NEURO EXAM: A&O x3, cranial nerves II-XII grossly intact, normal speech, moves all 4 extremities. Past Med/Surg History Problem List (Updated 07/04/24 @ 00:09 by Denilson Silverio MD) COPD (chronic obstructive pulmonary disease) (Acute) Bilateral cellulitis of lower leg (Acute) Acute exacerbation of CHF (congestive heart failure) (Acute) Acute hypoxemic respiratory failure (Acute) Abnormal ankle brachial index Chronic venous insufficiency Venous stasis ulcers of both lower extremities (Acute) Overactive bladder Groin pain Pyelonephritis (Acute) COVID-19 Elevated troponin (Acute) UTI (urinary tract infection) Permanent atrial fibrillation Acute heart failure with preserved ejection fraction (HFpEF) Acute urinary retention (Acute) Hypomagnesemia (Acute) Fever (Acute) Hydronephrosis with renal and ureteral calculous obstruction (Acute) Chronic diastolic heart failure Hypomagnesemia Sepsis Ureteral calculus, right Encounter for pre-operative examination Urinary frequency Urge incontinence UTI symptoms Dysuria Nephrolithiasis Severe sepsis Hydronephrosis (Acute) Renal colic (Acute) Former smoker Pulmonary emphysema Chest pain Atrial fibrillation with RVR (Acute) Mood disorder (Chronic) REID (dyspnea on exertion) (Acute) Chronic heart failure with preserved ejection fraction (Acute) Morbid obesity Bipolar disorder Hypertension Arthritis (Chronic) H/O: CVA (cerebrovascular accident) (Chronic) 2004 -- no deficits. REENA (obstructive sleep apnea) (Chronic) cpap at night HLD (hyperlipidemia) (Chronic) Paroxysmal atrial fibrillation (Chronic) follows with Dr. Jason Mosley Diabetes mellitus, type II (Chronic) IDDM RBBB (Chronic) Medical History UTI (urinary tract infection) being treated w/ macrobid History of COVID-19 03/07/23- hospitalized at [facility], "breathing issues" 02/14/2023, continues with cough and runny nose currently Chronic sinusitis Wound dehiscence 2016 s/p hysterectomy Kidney stones passed on own previously and also stent placed 01/[address] [facility] [address] [place] History of bleeding ulcers GERD (gastroesophageal reflux disease) Post traumatic stress disorder Depression Anxiety Peripheral neuropathy bilateral 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 no problems since then. History of pneumococcal septicemia treated at [facility] 2012. History of cardioversion Surgical History S/P laparotomy to repair hysterectomy wound dehiscence. History of cataract surgery bilateral History of tonsillectomy History of colonoscopy History of esophagogastroduodenoscopy (EGD) History of bronchoscopy S/P tendon repair bicep tendon repair (left) History of open reduction and internal fixation (ORIF) procedure Left elbow with hardware Hx of nasal septoplasty H/O: hysterectomy LUCERO with BSO Family History Other Diabetes No family history of adverse response to anesthesia Social History Smoking Status: Former smoker Tobacco Type: Cigarettes Cigarettes Per Day: 40; Second Hand Exposure: No; Do You Dip or Chew Tobacco: No; Hx Alcohol Use: No Hx Substance Use: No Preferred Language: Burundian Communication Ability: Effective Printing Pressman Required: No Beliefs That Will Affect Care: None marital status: Current Living Situation: Spouse Feels Safe at Home: Yes Assistive Devices: Cane, CPAP, Nebulizer, Raised Toilet Seat, Walker, Wheelchair and Other Allergies Allergies Allergy/AdvReac Type Severity Reaction Status Date / Time Cephalosporins Allergy Intermediate RASH Verified 07/03/24 22:50 clarithromycin Allergy Intermediate Rash Verified 07/03/24 22:50 Sulfa (Sulfonamide Allergy Intermediate "Sulfa Verified 07/03/24 22:50 Antibiotics) Drugs = rash" terconazole Allergy Intermediate ITCHING, Verified 07/03/24 22:50 BURNING clavulanic acid Allergy Unknown UNKNOWN Verified 07/03/24 22:50 clobetasol Allergy Unknown Unknown Verified 07/03/24 22:50 adhesive AdvReac Mild BAND-AIDS Verified 07/03/24 22:50 = SKIN IRRITATION Home Meds Home Medications Medication Instructions Recorded Confirmed apixaban 5 mg tablet (Eliquis) 5 mg PO BID 01/23/23 07/03/24 atorvastatin 40 mg tablet 40 mg PO QAM 01/23/23 07/03/24 famotidine 20 mg tablet 20 mg PO QAM 01/23/23 07/03/24 ipratropium bromide 21 mcg (0.03 2 spray intranasal AMHS 01/23/23 07/03/24 %) nasal spray metformin 1,000 mg tablet 1,000 mg PO BID 01/23/23 07/03/24 montelukast 10 mg tablet 10 mg PO QAM 01/23/23 07/03/24 nystatin 100,000 unit/gram topical 1 applic topical BID PRN Skin 01/23/23 07/03/24 powder Irritation nystatin-triamcinolone 100,000 1 applic topical BID PRN .flare ups 01/23/23 07/03/24 unit/g-0.1 % topical cream pantoprazole 40 mg tablet,delayed 40 mg PO QAM 01/23/23 07/03/24 release triamcinolone acetonide 0.1 % 1 applic topical BID PRN .flare ups 01/23/23 07/03/24 topical ointment omega-3 fatty acids 1,000 mg 1,000 mg PO QAM 07/16/23 07/03/24 capsule Lactobacillus acidophilus 250 1,000 mmu cells PO BID 03/08/24 07/03/24 million cell capsule (Probiotic Acidophilus) albuterol sulfate 90 mcg/actuation 2 puff inhalation Q6H PRN 03/08/24 07/03/24 aerosol inhaler Shortness Of Breath Or Wheezing biotin 1 mg capsule 1 mg PO DAILY 03/08/24 07/03/24 bisacodyl 5 mg tablet,delayed 5 mg PO DAILY PRN constipation 03/08/24 07/03/24 release cinnamon bark 500 mg capsule 1,000 mg PO BID 03/08/24 07/03/24 (Cinnamon) clobetasol 0.05 % topical cream 1 applic topical DAILY PRN Skin 03/08/24 07/03/24 Irritation coenzyme Q10 10 mg capsule (Co 10 mg PO DAILY 03/08/24 07/03/24 Q-10) cranberry 500 mg capsule 1,000 mg PO DAILY 03/08/24 07/03/24 glucosamine 750 za-ivehhf-upz 2-C 1 tab PO DAILY 03/08/24 07/03/24 30 mg-D3 1,000 unit-danny 1 mg tablet (Adhriohofab-Mgkrgelzagc-GTY + vitD) insulin regular hum U-500 conc 500 100 unit subcut ACHS 03/08/24 07/03/24 unit/mL(3 mL) subcut pen (Humulin R U-500 (Conc) Insulin Kwikpen) loratadine 10 mg tablet 10 mg PO DAILY 03/08/24 07/03/24 oxcarbazepine 150 mg tablet 150 mg PO DAILY 03/08/24 07/03/24 (Trileptal) potassium citrate 10 mEq (1,080 10 meq PO BID 03/08/24 07/03/24 mg) tablet,extended release prazosin 1 mg capsule 1 mg PO HS 03/08/24 07/03/24 triamcinolone acetonide 55 mcg 2 spray intranasal DAILY 03/08/24 07/03/24 nasal spray aerosol vitamin B complex-folic acid 0.4 1 tab PO DAILY 03/08/24 07/03/24 mg tablet acetaminophen 325 mg tablet 650 mg PO Q6H PRN Pain 07/03/24 07/03/24 acetaminophen 650 mg 650 mg PO BID 07/03/24 07/03/24 tablet,extended release (Arthritis Pain Relief (acetaminophen) ER) diclofenac sodium 1 % topical gel 2 g topical BID PRN PAINFUL JOINTS 07/03/24 07/03/24 digoxin 125 mcg (0.125 mg) tablet 0.125 mg PO QAM 07/03/24 07/03/24 guaifenesin 600 mg tablet, 600 mg PO DAILY PRN Congestion 07/03/24 07/03/24 extended release 12 hr (Mucinex) magnesium oxide 400 mg (241.3 mg 400 mg PO QAM 07/03/24 07/03/24 magnesium) tablet niqhavlj-vms-vbmh-FA-Ca carb-vit K 1 tab PO HS 07/03/24 07/03/24 18 mg iron-400 mcg-500 mg tablet (Women's One Daily) pregabalin 50 mg capsule 50 mg PO TID 07/03/24 07/03/24 sucralfate 1 gram tablet (Carafate) 1 g PO QID PRN ACID REFLUX/UPSET 07/03/24 07/03/24 STOMACH tamsulosin 0.4 mg capsule 0.4 mg PO QAM 07/03/24 07/03/24 torsemide 40 mg tablet 40 mg PO DAILY 07/03/24 07/03/24 tramadol 50 mg tablet 50 mg PO HS PRN pain 07/03/24 07/03/24 Previous Rx's Medication Instructions Recorded metoprolol succinate 100 mg 100 mg PO BID #60 tabs 04/13/23 tablet,extended release 24 hr fluticasone fur. 100 mcg-umeclid 1 inh inhalation DAILY #60 ea 05/29/23 62.5 mcg-vilant 25 mcg inhalat.powder (Trelegy Ellipta) levalbuterol HCl 0.63 mg/3 mL 0.63 mg (3 mL) inhalation Q4 PRN 05/29/23 solution for nebulization Wheezing #90 mL levalbuterol tartrate 45 2 inh inhalation Q6H PRN wheezing 06/03/23 mcg/actuation aerosol inhaler #15 grams (Xopenex HFA) Results & Data (ED) Vital Signs Vital Signs - 24 hr 07/03/24 20:43 07/03/24 20:58 07/03/24 20:58 Temperature 37.0 C Temperature Source Oral Pulse Rate 97 H Pulse Rate [Apical] Pulse Rhythm Regular Pulse Strength Normal Respiratory Rate 28 H Respiratory Effort / Characteristics Spontaneous Labored Respiratory Depth Normal Respiratory Pattern Regular Blood Pressure 105/56 L Blood Pressure [Left Arm] Blood Pressure Mean 72 Blood Pressure Mean [Left Arm] Blood Pressure Position Lying Pulse Oximetry 85 L 81 L 81 L Oxygen Delivery Method Room Air Room Air Nasal Cannula Room Air Oxygen Flow Rate Sepsis Recent Fever Within 48 Hours Yes Sepsis New/Unexplained Change in Mental Status No Sepsis Action Taken by Nursing No Action Required Oxygen Flow Rate - Titration 6 Pulse Oximetry Post Tiitration 94 07/03/24 20:59 07/03/24 21:01 07/03/24 22:08 Temperature Temperature Source Pulse Rate 98 H Pulse Rate [Apical] 93 H 90 Pulse Rhythm Pulse Strength Respiratory Rate 28 H 22 Respiratory Effort / Characteristics Respiratory Depth Respiratory Pattern Blood Pressure Blood Pressure [Left Arm] 141/87 H 118/68 Blood Pressure Mean Blood Pressure Mean [Left Arm] 105 84 Blood Pressure Position Pulse Oximetry 94 93 Oxygen Delivery Method Nasal Cannula Nasal Cannula Oxygen Flow Rate 6 6 Sepsis Recent Fever Within 48 Hours Sepsis New/Unexplained Change in Mental Status Sepsis Action Taken by Nursing Oxygen Flow Rate - Titration Pulse Oximetry Post Tiitration 07/03/24 22:20 07/03/24 22:46 07/03/24 23:00 Temperature Temperature Source Pulse Rate 90 Pulse Rate [Apical] 92 H 88 Pulse Rhythm Pulse Strength Respiratory Rate 26 H 24 22 Respiratory Effort / Characteristics Non-Labored Spontaneous Respiratory Depth Normal Respiratory Pattern Regular Blood Pressure Blood Pressure [Left Arm] 144/82 H 141/65 H Blood Pressure Mean Blood Pressure Mean [Left Arm] 102 90 Blood Pressure Position Pulse Oximetry 95 97 96 Oxygen Delivery Method BiPAP Room Air Oxygen Flow Rate 5 Sepsis Recent Fever Within 48 Hours Sepsis New/Unexplained Change in Mental Status Sepsis Action Taken by Nursing Oxygen Flow Rate - Titration Pulse Oximetry Post Tiitration Home Medications Current Medication List: was personally reviewed by me Laboratory Data Attestation: I reviewed the patient's lab results. 07/03/24 21:00 07/03/24 21:00 Lab Results 07/03/24 07/03/24 07/03/24 Range/Units 21:00 21:05 21:31 WBC 19.08 H (4.8-10.8) K/ul RBC 4.02 L (4.20-5.40) M/uL Hgb 9.8 L (12.0-16.0) g/dl Hct 32.4 L (37.0-47.0) % MCV 80.6 (80.0-100.0) fL MCH 24.4 L (25.0-34.0) pg MCHC 30.2 L (32.0-36.0) g/dL RDW Std Deviation 56.2 H (36.4-46.3) fL RDW Coeff of [place] 19.3 H (11.5-14.5) % Plt Count 156 (130-400) K/uL MPV 11.7 (9.4-12.4) fL Immature Gran % (Auto) 0.7 % Neut % (Auto) 81.8 % Lymph % (Auto) 11.2 % Ballard % (Auto) 5.5 % Eos % (Auto) 0.4 % Baso % (Auto) 0.4 % Neut # (Auto) 15.61 H (1.40-6.50) K/uL Lymph # (Auto) 2.13 (1.20-3.40) K/uL Ballard # (Auto) 1.05 H (0.11-0.59) K/uL Eos # (Auto) 0.08 (0.00-0.50) K/uL Baso # (Auto) 0.08 (0.00-0.20) K/uL Immature Gran # (Auto) 0.13 (0.01-0.20) K/uL PT 12.2 H (9.0-12.0) Seconds INR 1.1 (0.9-1.1) APTT 32 H (21-31) Seconds PTT Ratio 1.2 Sodium 140 (136-145) mmol/L Potassium 4.3 (3.5-5.1) mmol/L Chloride 107 (98-107) mmol/L Carbon Dioxide 27 (21-32) mmol/L Anion Gap 6 (3-11) BUN 17 (6-23) mg/dl Creatinine 0.88 (0.6-1.2) mg/dl Est Cr Clr Drug Dosing 89.1 ml/min eGFR 70.22 BUN/Creatinine Ratio 19.3 (10-20) Glucose 187 H (70-99(Fasting)) mg/dl Lactate 2.2 H* (0.4-2.0) mmol/L Calcium 9.6 (8.6-10.3) mg/dl Magnesium 1.3 L (1.7-2.4) mg/dl Total Bilirubin 1.1 H (0.2-1.0) mg/dl AST 17 (13-39) U/L ALT 16 (7-52) U/L Alkaline Phosphatase 81 (34-104) U/L Troponin I High Sens 6.0 (0-14) pg/ml B-Natriuretic Peptide (0-100) pg/ml Total Protein 7.7 (6.0-8.3) gm/dl Albumin 4.1 (3.4-5.0) gm/dl Globulin 3.6 (2.5-4.0) gm/dl Albumin/Globulin Ratio 1.1 (0.9-2) Procalcitonin 0.09 (0-0.5) ng/ml Urine Color Dark Yellow Urine Appearance Clear (Clear) Urine pH 7.5 (4.5-7.5) Ur Specific [place] 1.020 (1.000-1.030) Urine Protein 1+ H (Negative) Urine Glucose (UA) Negative (Negative) Urine Ketones Negative (Negative) Urine Blood Negative (Negative) Urine Nitrite Negative (Negative) Urine Bilirubin Negative (Negative) Urine Urobilinogen Negative (Negative) Ur Leukocyte Esterase Negative (Negative) Urine WBC (Auto) 0-5 (0-5) /hpf Urine RBC (Auto) 0-2 (0-2) /hpf U Hyaline Cast (Auto) 0-2 (0-2) /lpf U Epithel Cells (Auto) 0-2 (0-2) /hpf Urine Bacteria (Auto) None Seen (None Seen) Adenovirus (PCR) Not Detected (NotDetected) B. pertussis DNA (PCR) Not Detected (NotDetected) B.parapertussis DNA PCR Not Detected (NotDetected) C. pneumoniae DNA (PCR) Not Detected (NotDetected) Coronavirus OC43 (PCR) Not Detected (NotDetected) Coronavirus HKU1 (PCR) Not Detected (NotDetected) Coronavirus 229E (PCR) Not Detected (NotDetected) SARS-CoV-2 (PCR) Not Detected (NotDetected) Coronavirus NL63 (PCR) Not Detected (NotDetected) Human Metapneumovir PCR Not Detected (NotDetected) Influenza Type A (PCR) Not Detected (NotDetected) Influenza Type B (PCR) Not Detected (NotDetected) M. pneumoniae (PCR) Not Detected (NotDetected) Parainfluenza 1 (PCR) Not Detected (NotDetected) Parainfluenza 2 (PCR) Not Detected (NotDetected) Parainfluenza 3 (PCR) Not Detected (NotDetected) Parainfluenza 4 (PCR) Not Detected (NotDetected) RSV (PCR) Not Detected (NotDetected) Entero/Rhino (PCR) Not Detected (NotDetected) 07/03/24 07/03/24 Range/Units 21:38 23:18 WBC (4.8-10.8) K/ul RBC (4.20-5.40) M/uL Hgb (12.0-16.0) g/dl Hct (37.0-47.0) % MCV (80.0-100.0) fL MCH (25.0-34.0) pg MCHC (32.0-36.0) g/dL RDW Std Deviation (36.4-46.3) fL RDW Coeff of [place] (11.5-14.5) % Plt Count (130-400) K/uL MPV (9.4-12.4) fL Immature Gran % (Auto) % Neut % (Auto) % Lymph % (Auto) % Ballard % (Auto) % Eos % (Auto) % Baso % (Auto) % Neut # (Auto) (1.40-6.50) K/uL Lymph # (Auto) (1.20-3.40) K/uL [place] # (Auto) (0.11-0.59) K/uL Eos # (Auto) (0.00-0.50) K/uL Baso # (Auto) (0.00-0.20) K/uL Immature Gran # (Auto) (0.01-0.20) K/uL PT (9.0-12.0) Seconds INR (0.9-1.1) APTT (21-31) Seconds PTT Ratio Sodium (136-145) mmol/L Potassium (3.5-5.1) mmol/L Chloride (98-107) mmol/L Carbon Dioxide (21-32) mmol/L Anion Gap (3-11) BUN (6-23) mg/dl Creatinine (0.6-1.2) mg/dl Est Cr Clr Drug Dosing ml/min eGFR BUN/Creatinine Ratio (10-20) Glucose (70-99(Fasting)) mg/dl Lactate 1.8 (0.4-2.0) mmol/L Calcium (8.6-10.3) mg/dl Magnesium (1.7-2.4) mg/dl Total Bilirubin (0.2-1.0) mg/dl AST (13-39) U/L ALT (7-52) U/L Alkaline Phosphatase (34-104) U/L Troponin I High Sens (0-14) pg/ml B-Natriuretic Peptide 246 H (0-100) pg/ml Total Protein (6.0-8.3) gm/dl Albumin (3.4-5.0) gm/dl Globulin (2.5-4.0) gm/dl Albumin/Globulin Ratio (0.9-2) Procalcitonin (0-0.5) ng/ml Urine Color Urine Appearance (Clear) Urine pH (4.5-7.5) Ur Specific [place] (1.000-1.030) Urine Protein (Negative) Urine Glucose (UA) (Negative) Urine Ketones (Negative) Urine Blood (Negative) Urine Nitrite (Negative) Urine Bilirubin (Negative) Urine Urobilinogen (Negative) Ur Leukocyte Esterase (Negative) Urine WBC (Auto) (0-5) /hpf Urine RBC (Auto) (0-2) /hpf U Hyaline Cast (Auto) (0-2) /lpf U Epithel Cells (Auto) (0-2) /hpf Urine Bacteria (Auto) (None Seen) Adenovirus (PCR) (NotDetected) B. pertussis DNA (PCR) (NotDetected) B.parapertussis DNA PCR (NotDetected) C. pneumoniae DNA (PCR) (NotDetected) Coronavirus OC43 (PCR) (NotDetected) Coronavirus HKU1 (PCR) (NotDetected) Coronavirus 229E (PCR) (NotDetected) SARS-CoV-2 (PCR) (NotDetected) Coronavirus NL63 (PCR) (NotDetected) Human Metapneumovir PCR (NotDetected) Influenza Type A (PCR) (NotDetected) Influenza Type B (PCR) (NotDetected) M. pneumoniae (PCR) (NotDetected) Parainfluenza 1 (PCR) (NotDetected) Parainfluenza 2 (PCR) (NotDetected) Parainfluenza 3 (PCR) (NotDetected) Parainfluenza 4 (PCR) (NotDetected) RSV (PCR) (NotDetected) Entero/Rhino (PCR) (NotDetected) Administered Medications Discontinued Medications Furosemide (Furosemide 40 Mg/4 Ml Vial) 40 mg IV ONE ONE Stop: 07/03/24 22:34 Last Admin: 07/03/24 22:42 Dose: 40 mg Documented By: AN Levalbuterol HCl (Levalbuterol 1.25 Mg/3 Ml Neb) 1.25 mg NEB NOW STA Stop: 07/03/24 21:30 Last Admin: 07/03/24 21:35 Dose: 1.25 mg Documented By: AN Methylprednisolone (Methylprednisolone 125 Mg/2 Ml Vial) 60 mg IV NOW STA Stop: 07/03/24 21:40 Last Admin: 07/03/24 22:16 Dose: 60 mg Documented By: AN Imaging Data Radiologist's Impression: Chest X-Ray 07/03/24 21:04 Exam(s): XR CXR 1 VIEW EXAM: XR Chest, 1 View CLINICAL HISTORY: Reason for exam: Sepsis. TECHNIQUE: Frontal view of the chest. COMPARISON: 04/08/2023 FINDINGS: Lungs: Interstitial edema and atelectasis at the lung bases. Pleural space: No pleural effusion. No pneumothorax. Heart: Cardiomegaly. IMPRESSION: 1. Interstitial edema and atelectasis at the lung bases. 2. Cardiomegaly. Electronically signed by: Gurjit Roberts MD 07/03/24 23:10 PM Abdomen/Pelvis CT 07/03/24 21:27 Exam(s): CT ABDOMEN + PELVIS Without Contrast EXAM: CT Abdomen and Pelvis Without Intravenous Contrast CLINICAL HISTORY: Reason for exam: fever; h/o obstructing stones. TECHNIQUE: Axial computed tomography images of the abdomen and pelvis without intravenous contrast. CTDI is 28.14 mGy and DLP is 1457.61 mGy-cm. Automated exposure control was utilized for the study. A dose lowering technique was utilized adhering to the principles of ALARA. COMPARISON: CT 07/16/2023. FINDINGS: ABDOMEN: Liver: Liver is enlarged measuring 25 cm. Gallbladder and bile ducts: Unremarkable. Pancreas: Unremarkable. Spleen: Unremarkable. Adrenals: Unremarkable. Kidneys and ureters: No ureteral stone or obstructive uropathy. Stomach and bowel: Colonic diverticulosis without acute diverticulitis. PELVIS: Appendix: No findings to suggest acute appendicitis. Bladder: Unremarkable. Reproductive: Hysterectomy. ABDOMEN and PELVIS: Intraperitoneal space: Unremarkable. No free air. No significant fluid collection. 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 Soft tissues: Edema of the ventral abdominal wall. No fluid collection or soft tissue gas. Vasculature: Atherosclerotic calcifications. Lymph nodes: Unremarkable. IMPRESSION: 1. No ureteral stone or obstructive uropathy. 2. Colonic diverticulosis without acute diverticulitis. 3. Hepatomegaly. Electronically signed by: Gurjit Roberts MD 07/03/24 23:30 PM Discharge Plan Visit Data Chief Complaint: Fever Stated Complaint: FEVER, SOB, TROUBLE URINATING ED Provider: Denilson Silverio Discharge Problem: Acute hypoxemic respiratory failure, REID (dyspnea on exertion), Acute exacerbation of CHF (congestive heart failure), Bilateral cellulitis of lower leg, COPD (chronic obstructive pulmonary disease) Forms Stand Alone Forms: [place] Prescriptions Prescriptions: No Action Probiotic Acidophilus 250 million cell capsule 1,000 mmu cells PO BID biotin 1 mg capsule 1 mg PO DAILY coenzyme Q10 [Co Q-10] 10 mg capsule 10 mg PO DAILY loratadine 10 mg tablet 10 mg PO DAILY Dwktansu-Gnahhm-ROE with vit D 750-30-1,000-1 fq-wc-wekh-mg tablet 1 tab PO DAILY cranberry 500 mg capsule 1,000 mg PO DAILY Rx Instructions: administer with meals cinnamon bark [Cinnamon] 500 mg capsule 1,000 mg PO BID bisacodyl 5 mg tablet,delayed release (DR/EC) 5 mg PO DAILY PRN (Reason: constipation) vitamin B complex-folic acid 0.4 mg tablet 1 tab PO DAILY clobetasol 0.05 % cream 1 applic topical DAILY PRN (Reason: Skin Irritation) oxcarbazepine [Trileptal] 150 mg tablet 150 mg PO DAILY prazosin 1 mg capsule 1 mg PO HS potassium citrate 10 mEq (1,080 mg) tablet extended release 10 meq PO BID albuterol sulfate 90 mcg/actuation HFA aerosol inhaler 2 puff inhalation Q6H PRN (Reason: Shortness Of Breath Or Wheezing) triamcinolone acetonide 55 mcg aerosol,spray 2 spray intranasal DAILY Rx Instructions: administer into each nostril levalbuterol tartrate [Xopenex HFA] 45 mcg/actuation HFA aerosol inhaler 2 inh inhalation Q6H PRN (Reason: wheezing) Qty: 15 3RF Trelegy Ellipta 100-62.5-25 mcg blister with device 1 inh INHALATION DAILY Qty: 60 3RF levalbuterol HCl 0.63 mg/3 mL solution for nebulization 0.63 mg INHALATION Q4 PRN (Reason: Wheezing) Qty: 90 3RF famotidine 20 mg tablet 20 mg PO QAM pantoprazole 40 mg tablet,delayed release (DR/EC) 40 mg PO QAM metformin 1,000 mg tablet 1,000 mg PO BID triamcinolone acetonide 0.1 % Ointment 1 applic TOPICAL BID PRN (Reason: .flare ups) nystatin-triamcinolone 100,000-0.1 unit/g-% cream 1 applic TOPICAL BID PRN (Reason: .flare ups) montelukast 10 mg Tablet 10 mg PO QAM nystatin 100,000 unit/gram powder 1 applic TOPICAL BID PRN (Reason: Skin Irritation) Rx Instructions: Apply 0.5 g to groin ipratropium bromide 21 mcg (0.03 %) spray,non-aerosol 2 spray INTRANASAL [facility] Eliquis 5 mg Tablet 5 mg PO BID atorvastatin 40 mg tablet 40 mg PO QAM Humulin R U-500 (Conc) Kwikpen 500 unit/mL (3 mL) insulin pen 100 unit SUBCUT ACHS Rx Instructions: if blood glucose <200 give 100 units if blood glucose >200 give 120 units metoprolol succinate 100 mg tablet extended release 24 hr 100 mg PO BID Qty: 60 0RF omega-3 fatty acids 1,000 mg Capsule 1,000 mg PO QAM sucralfate [Carafate] 1 gram Tablet 1 g PO QID PRN (Reason: ACID REFLUX/UPSET STOMACH) acetaminophen [Arthritis Pain Relief (acetam)] 650 mg Tablet Extended Release 650 mg PO BID digoxin 125 mcg (0.125 mg) tablet 0.125 mg PO QAM pregabalin 50 mg capsule 50 mg PO TID diclofenac sodium [Voltaren] 1 % Gel 2 g TOPICAL BID PRN (Reason: PAINFUL JOINTS) Women's One Daily 18 mg iron-400 mcg-500 mg Tablet 1 tab PO HS guaifenesin [Mucinex] 600 mg Tablet Extended Release 12hr 600 mg PO DAILY PRN (Reason: Congestion) acetaminophen 325 mg tablet 650 mg PO Q6H PRN (Reason: Pain) tramadol 50 mg tablet 50 mg PO HS PRN (Reason: pain) magnesium oxide 400 mg (241.3 mg magnesium) tablet 400 mg PO QAM tamsulosin 0.4 mg capsule 0.4 mg PO QAM torsemide 40 mg tablet 40 mg PO DAILY Referrals Referrals: Sabine Mosley DO [Primary Care Provider] - Discharge Problem: Acute exacerbation of CHF (congestive heart failure) Qualifiers: Heart failure type: unspecified Qualified Code(s): I50.9 - Heart failure, unspecified COPD (chronic obstructive pulmonary disease) Qualifiers: COPD type: COPD with acute lower respiratory infection Qualified Code(s): J44.0 - Chronic obstructive pulmonary disease with (acute) lower respiratory infection
[2024-07-03 21:59] LABS: INR 1.1 (0.9-1.1); Partial Thromboplastin Ratio 1.2; Partial Thromboplastin Time 32 Seconds (21-31); Prothrombin Time 12.2 Seconds (9.0-12.0)
[2024-07-03] MEDS: methylPREDNISolone 125 MG/2 ML VIAL IV STA (22:16)
[2024-07-03 22:32] LABS: Adenovirus PCR Not Detected (NotDetected); Bordetella parapertussis PCR Not Detected (NotDetected); Bordetella pertussis PCR Not Detected (NotDetected); Chlamydia pneumoniae PCR Not Detected (NotDetected); Coronavirus 229E PCR Not Detected (NotDetected); Coronavirus CoV-2 (COVID19)PCR Not Detected (NotDetected); Coronavirus HKU1 PCR Not Detected (NotDetected); Coronavirus NL63 PCR Not Detected (NotDetected); Coronavirus OC43PCR Not Detected (NotDetected); Human Metapneumovirus PCR Not Detected (NotDetected); Influenza A PCR Not Detected (NotDetected); Influenza B PCR Not Detected (NotDetected); Mycoplasma pneumoniae PCR Not Detected (NotDetected); Parainfluenza Virus 1 PCR Not Detected (NotDetected); Parainfluenza Virus 2 PCR Not Detected (NotDetected); Parainfluenza Virus 3 PCR Not Detected (NotDetected); Parainfluenza Virus 4 PCR Not Detected (NotDetected); Respiratory Syncytial VirusPCR Not Detected (NotDetected); Rhinovirus/Enterovirus PCR Not Detected (NotDetected)
[2024-07-03] MEDS: FUROSEMIDE 40 MG/4 ML VIAL IV ONE (22:42)
--- NOTE | 2024-07-03 23:11 | XRay Report ---
Exam(s): XR CXR 1 VIEW EXAM: XR Chest, 1 View CLINICAL HISTORY: Reason for exam: Sepsis. TECHNIQUE: Frontal view of the chest. COMPARISON: 04/08/2023 FINDINGS: Lungs: Interstitial edema and atelectasis at the lung bases. Pleural space: No pleural effusion. No pneumothorax. Heart: Cardiomegaly. IMPRESSION: 1. Interstitial edema and atelectasis at the lung bases. 2. Cardiomegaly. Electronically signed by: Gurjit Roberts MD 07/03/24 23:10 PM
--- NOTE | 2024-07-03 23:31 | CT Scan Report ---
Exam(s): CT ABDOMEN + PELVIS Without Contrast EXAM: CT Abdomen and Pelvis Without Intravenous Contrast CLINICAL HISTORY: Reason for exam: fever; h/o obstructing stones. TECHNIQUE: Axial computed tomography images of the abdomen and pelvis without intravenous contrast. CTDI is 28.14 mGy and DLP is 1457.61 mGy-cm. Automated exposure control was utilized for the study. A dose lowering technique was utilized adhering to the principles of ALARA. COMPARISON: CT 07/16/2023. FINDINGS: ABDOMEN: Liver: Liver is enlarged measuring 25 cm. Gallbladder and bile ducts: Unremarkable. Pancreas: Unremarkable. Spleen: Unremarkable. Adrenals: Unremarkable. Kidneys and ureters: No ureteral stone or obstructive uropathy. Stomach and bowel: Colonic diverticulosis without acute diverticulitis. PELVIS: Appendix: No findings to suggest acute appendicitis. Bladder: Unremarkable. Reproductive: Hysterectomy. ABDOMEN and PELVIS: Intraperitoneal space: Unremarkable. No free air. No significant fluid collection. 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 Soft tissues: Edema of the ventral abdominal wall. No fluid collection or soft tissue gas. Vasculature: Atherosclerotic calcifications. Lymph nodes: Unremarkable. IMPRESSION: 1. No ureteral stone or obstructive uropathy. 2. Colonic diverticulosis without acute diverticulitis. 3. Hepatomegaly. Electronically signed by: Gurjit Roberts MD 07/03/24 23:30 PM
--- NOTE | 2024-07-04 01:23 | History & Physical Report ---
Date of Service July 04, 2024 Assessment & Plan (1) Acute exacerbation of CHF (congestive heart failure): Plan: 73-year-old female with past medical history significant for type 2 diabetes, dyslipidemia, gastroparesis due to diabetes, COPD, obstructive sleep apnea on CPAP, chronic diastolic CHF, history of CVA, persistent atrial fibrillation, hypertension, morbid obesity, GERD, CKD stage III, bipolar 2 disorder, major depression, former smoker comes because of shortness of breath. Patient says she is feeling short of breath for last 4 days. But got worse today. Also today she had temp spike. Recently was treated for sinus infection with doxycycline and was coughing a lot of thick phlegm but that decreased today.Was hypoxic on room air and currently on BiPAP. Denies any chest pain. Has some headache. Has some runny nose. No sore throat. No nausea. No abdominal pain. Somewhat constipated. Micturating okay. Hemodynamics are okay. Acute on chronic diastolic CHF Hypoxia Continue BiPAP for now Received IV Lasix 40 mg in ER Continue IV Lasix 40 mg twice daily Daily weights and I's and O's Will follow echo Telemetry Will follow CT chest for any underlying pneumonia Consult cardiology in a.m. for further recommendation Bilateral lower extremity cellulitis Empirically placed on Zosyn and doxycycline Patient is allergic to cephalosporin but seems tolerated Zosyn in the past Will monitor the response History of COPD No obvious wheezing received a dose of steroid in the ER For now we will continue nebs [id number] and as needed and home inhalers and monitor Obstructive sleep apnea CPAP/BiPAP nightly Type 2 diabetes Continue home long-acting insulin Hold metformin Sliding scale Glycemic pharmacy consult Follow HbA1c levels History of persistent atrial fibrillation On metoprolol succinate, digoxin and Eliquis Will monitor Morbid obesity Counseling Bipolar 2 disorder Depression On oxcarbazepine Dyslipidemia On statin GERD On famotidine and Protonix Hypertension On metoprolol and prazosin and diuretics Will monitor DVT prophylaxis On Eliquis Disposition Telemetry Full code. History of Present Illness Chief Complaint: Shortness of breath Primary Care Provider: Sabine Mosley DO 73-year-old female with past medical history significant for type 2 diabetes, dyslipidemia, gastroparesis due to diabetes, COPD, obstructive sleep apnea on CPAP, chronic diastolic CHF, history of CVA, persistent atrial fibrillation, hypertension, morbid obesity, GERD, CKD stage III, bipolar 2 disorder, major depression, former smoker comes because of shortness of breath. Patient says she is feeling short of breath for last 4 days. But got worse today. Also today she had temp spike. Recently was treated for sinus infection with doxycycline and was coughing a lot of thick phlegm but that decreased today.Was hypoxic on room air and currently on BiPAP. Denies any chest pain. Has some headache. Has some runny nose. No sore throat. No nausea. No abdominal pain. Somewhat constipated. Micturating okay. Hemodynamics are okay. Past medical history. As mentioned above. Past surgical history. Right breast biopsy. Colonoscopy, cystoscopy. Tonsillectomy. Repair of nasal septum. Total abdominal hysterectomy with removal of tubes. Social history. . Quit smoking 2012. Smoked 2 packs a day for 30 years. No alcohol use. No drug use. Family history. Father had allergies. COPD. Cancer. Diabetes. Mother had breast cancer. Allergies Allergy/AdvReac Type Severity Reaction Status Date / Time Cephalosporins Allergy Intermediate RASH Verified 07/03/24 22:50 clarithromycin Allergy Intermediate Rash Verified 07/03/24 22:50 Sulfa (Sulfonamide Allergy Intermediate "Sulfa Verified 07/03/24 22:50 Antibiotics) Drugs = rash" terconazole Allergy Intermediate ITCHING, Verified 07/03/24 22:50 BURNING clavulanic acid Allergy Unknown UNKNOWN Verified 07/03/24 22:50 clobetasol Allergy Unknown Unknown Verified 07/03/24 22:50 adhesive AdvReac Mild BAND-AIDS Verified 07/03/24 22:50 = SKIN IRRITATION Home Medications Medication Instructions Recorded Confirmed Type apixaban 5 mg tablet (Eliquis) 5 mg PO BID 01/23/23 07/03/24 History atorvastatin 40 mg tablet 40 mg PO QAM 01/23/23 07/03/24 History famotidine 20 mg tablet 20 mg PO QAM 01/23/23 07/03/24 History ipratropium bromide 21 mcg (0.03 2 spray intranasal AMHS 01/23/23 07/03/24 History %) nasal spray metformin 1,000 mg tablet 1,000 mg PO BID 01/23/23 07/03/24 History montelukast 10 mg tablet 10 mg PO QAM 01/23/23 07/03/24 History nystatin 100,000 unit/gram topical 1 applic topical BID PRN Skin 01/23/23 07/03/24 History powder Irritation nystatin-triamcinolone 100,000 1 applic topical BID PRN .flare ups 01/23/23 07/03/24 History unit/g-0.1 % topical cream pantoprazole 40 mg tablet,delayed 40 mg PO QAM 01/23/23 07/03/24 History release triamcinolone acetonide 0.1 % 1 applic topical BID PRN .flare ups 01/23/23 07/03/24 History topical ointment metoprolol succinate 100 mg 100 mg PO BID #60 tabs 04/13/23 07/03/24 Rx tablet,extended release 24 hr fluticasone fur. 100 mcg-umeclid 1 inh inhalation DAILY #60 ea 05/29/23 07/03/24 Rx 62.5 mcg-vilant 25 mcg inhalat.powder (Trelegy Ellipta) levalbuterol HCl 0.63 mg/3 mL 0.63 mg (3 mL) inhalation Q4 PRN 05/29/23 07/03/24 Rx solution for nebulization Wheezing #90 mL levalbuterol tartrate 45 2 inh inhalation Q6H PRN wheezing 06/03/23 07/03/24 Rx mcg/actuation aerosol inhaler #15 grams (Xopenex HFA) omega-3 fatty acids 1,000 mg 1,000 mg PO QAM 07/16/23 07/03/24 History capsule Lactobacillus acidophilus 250 1,000 mmu cells PO BID 03/08/24 07/03/24 History million cell capsule (Probiotic Acidophilus) albuterol sulfate 90 mcg/actuation 2 puff inhalation Q6H PRN 03/08/24 07/03/24 History aerosol inhaler Shortness Of Breath Or Wheezing biotin 1 mg capsule 1 mg PO DAILY 03/08/24 07/03/24 History bisacodyl 5 mg tablet,delayed 5 mg PO DAILY PRN constipation 03/08/24 07/03/24 History release cinnamon bark 500 mg capsule 1,000 mg PO BID 03/08/24 07/03/24 History (Cinnamon) clobetasol 0.05 % topical cream 1 applic topical DAILY PRN Skin 03/08/24 07/03/24 History Irritation coenzyme Q10 10 mg capsule (Co 10 mg PO DAILY 03/08/24 07/03/24 History Q-10) cranberry 500 mg capsule 1,000 mg PO DAILY 03/08/24 07/03/24 History glucosamine 750 ue-okwdga-noh 2-C 1 tab PO DAILY 03/08/24 07/03/24 History 30 mg-D3 1,000 unit-danny 1 mg tablet (Tjjqpezhnem-Pcazegqarjh-UGB + vitD) insulin regular hum U-500 conc 500 100 unit subcut ACHS 03/08/24 07/03/24 History unit/mL(3 mL) subcut pen (Humulin R U-500 (Conc) Insulin Kwikpen) loratadine 10 mg tablet 10 mg PO DAILY 03/08/24 07/03/24 History oxcarbazepine 150 mg tablet 150 mg PO DAILY 03/08/24 07/03/24 History (Trileptal) potassium citrate 10 mEq (1,080 10 meq PO BID 03/08/24 07/03/24 History mg) tablet,extended release prazosin 1 mg capsule 1 mg PO HS 03/08/24 07/03/24 History triamcinolone acetonide 55 mcg 2 spray intranasal DAILY 03/08/24 07/03/24 History nasal spray aerosol vitamin B complex-folic acid 0.4 1 tab PO DAILY 03/08/24 07/03/24 History mg tablet acetaminophen 325 mg tablet 650 mg PO Q6H PRN Pain 07/03/24 07/03/24 History acetaminophen 650 mg 650 mg PO BID 07/03/24 07/03/24 History tablet,extended release (Arthritis Pain Relief (acetaminophen) ER) diclofenac sodium 1 % topical gel 2 g topical BID PRN PAINFUL JOINTS 07/03/24 07/03/24 History digoxin 125 mcg (0.125 mg) tablet 0.125 mg PO QAM 07/03/24 07/03/24 History guaifenesin 600 mg tablet, 600 mg PO DAILY PRN Congestion 07/03/24 07/03/24 History extended release 12 hr (Mucinex) magnesium oxide 400 mg (241.3 mg 400 mg PO QAM 07/03/24 07/03/24 History magnesium) tablet xlkbelkh-wcw-fgws-FA-Ca carb-vit K 1 tab PO HS 07/03/24 07/03/24 History 18 mg iron-400 mcg-500 mg tablet (Women's One Daily) pregabalin 50 mg capsule 50 mg PO TID 07/03/24 07/03/24 History sucralfate 1 gram tablet (Carafate) 1 g PO QID PRN ACID REFLUX/UPSET 07/03/24 07/03/24 History STOMACH tamsulosin 0.4 mg capsule 0.4 mg PO QAM 07/03/24 07/03/24 History torsemide 40 mg tablet 40 mg PO DAILY 07/03/24 07/03/24 History tramadol 50 mg tablet 50 mg PO HS PRN pain 07/03/24 07/03/24 History Past Med/Surg History Problem List (Updated 07/04/24 @ 00:09 by Denilson Silverio MD) COPD (chronic obstructive pulmonary disease) (Acute) Bilateral cellulitis of lower leg (Acute) Acute exacerbation of CHF (congestive heart failure) (Acute) Acute hypoxemic respiratory failure (Acute) Abnormal ankle brachial index Chronic venous insufficiency Venous stasis ulcers of both lower extremities (Acute) Overactive bladder Groin pain Pyelonephritis (Acute) COVID-19 Elevated troponin (Acute) UTI (urinary tract infection) Permanent atrial fibrillation Acute heart failure with preserved ejection fraction (HFpEF) Acute urinary retention (Acute) Hypomagnesemia (Acute) Fever (Acute) Hydronephrosis with renal and ureteral calculous obstruction (Acute) Chronic diastolic heart failure Hypomagnesemia Sepsis Ureteral calculus, right Encounter for pre-operative examination Urinary frequency Urge incontinence UTI symptoms Dysuria Nephrolithiasis Severe sepsis Hydronephrosis (Acute) Renal colic (Acute) Former smoker Pulmonary emphysema Chest pain Atrial fibrillation with RVR (Acute) Mood disorder (Chronic) REID (dyspnea on exertion) (Acute) Chronic heart failure with preserved ejection fraction (Acute) Morbid obesity Bipolar disorder Hypertension Arthritis (Chronic) H/O: CVA (cerebrovascular accident) (Chronic) 2004 -- no deficits. REENA (obstructive sleep apnea) (Chronic) cpap at night HLD (hyperlipidemia) (Chronic) Paroxysmal atrial fibrillation (Chronic) follows with Dr. Jason Mosley Diabetes mellitus, type II (Chronic) IDDM RBBB (Chronic) Medical History UTI (urinary tract infection) being treated w/ macrobid History of COVID-19 03/07/23- hospitalized at [facility], "breathing issues" 02/14/2023, continues with cough and runny nose currently Chronic sinusitis Wound dehiscence 2016 s/p hysterectomy Kidney stones passed on own previously and also stent placed 01/[address] [facility] [address] [place] History of bleeding ulcers GERD (gastroesophageal reflux disease) Post traumatic stress disorder Depression Anxiety Peripheral neuropathy bilateral 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 no problems since then. History of pneumococcal septicemia treated at [facility] 2012. History of cardioversion Surgical History S/P laparotomy to repair hysterectomy wound dehiscence. History of cataract surgery bilateral History of tonsillectomy History of colonoscopy History of esophagogastroduodenoscopy (EGD) History of bronchoscopy S/P tendon repair bicep tendon repair (left) History of open reduction and internal fixation (ORIF) procedure Left elbow with hardware Hx of nasal septoplasty H/O: hysterectomy LUCERO with BSO Family History Other Diabetes No family history of adverse response to anesthesia Social History Smoking Status: Former smoker Tobacco Type: Cigarettes Second Hand Exposure: No; Do You Dip or Chew Tobacco: No; Hx Alcohol Use: No Hx Substance Use: No Preferred Language: Mozambican Communication Ability: Effective Med Aide Required: No Beliefs That Will Affect Care: None marital status: Current Living Situation: Spouse Feels Safe at Home: Yes Assistive Devices: Cane, CPAP, Nebulizer, Raised Toilet Seat, Walker, Wheelchair and Other Review of Systems Review of Systems: All systems reviewed & are unremarkable except as noted in HPI & below Physical Exam Physical Exam: General- Not in distress Head- atraumatic Eyes- PERRL. ENT- oropharynx clear Neck- supple, no JVD. Lungs- clear to auscultation no wheezing, mild bibasilar crackles Heart- regular rhythm; no murmur, no gallop. Abdomen- normal bowel sounds, soft, nontender, no distension Extremities- b/l lower extremity edema with chronic skin changes with erythema seen. Neuro- alert, oriented PERRL, no facial palsy; no dysarthria; moves extremities Results & Data Results & Data Vital Signs (Past 12 Hours) Vital Signs Temp Pulse Pulse Resp BP BP Pulse Ox 07/04/24 00:55 87 07/03/24 23:00 88 22 141/65 H 96 07/03/24 22:46 92 H 24 144/82 H 97 07/03/24 22:20 90 26 H 95 07/03/24 22:08 90 22 118/68 93 07/03/24 21:01 93 H 28 H 141/87 H 94 07/03/24 20:59 98 H 07/03/24 20:58 81 L 07/03/24 20:58 81 L 07/03/24 20:43 37.0 C 97 H 28 H 105/56 L 85 L O2 Del Method O2 Flow Rate 07/04/24 00:55 07/03/24 23:00 Room Air 07/03/24 22:46 BiPAP 07/03/24 22:20 5 07/03/24 22:08 Nasal Cannula 6 07/03/24 21:01 Nasal Cannula 6 07/03/24 20:59 07/03/24 20:58 Room Air 07/03/24 20:58 Room Air, Nasal Cannula 07/03/24 20:43 Room Air Diagnostic Findings Laboratory Results WBC 19.08 K/ul (4.8-10.8) H 07/03/24 21:00 RBC 4.02 M/uL (4.20-5.40) L 07/03/24 21:00 Hgb 9.8 g/dl (12.0-16.0) L 07/03/24 21:00 Hct 32.4 % (37.0-47.0) L 07/03/24 21:00 MCV 80.6 fL (80.0-100.0) 07/03/24 21:00 MCH 24.4 pg (25.0-34.0) L 07/03/24 21:00 MCHC 30.2 g/dL (32.0-36.0) L 07/03/24 21:00 RDW Std Deviation 56.2 fL (36.4-46.3) H 07/03/24 21:00 RDW Coeff of [place] 19.3 % (11.5-14.5) H 07/03/24 21:00 Plt Count 156 K/uL (130-400) 07/03/24 21:00 MPV 11.7 fL (9.4-12.4) 07/03/24 21:00 Immature Gran % (Auto) 0.7 % 07/03/24 21:00 Neut % (Auto) 81.8 % 07/03/24 21:00 Lymph % (Auto) 11.2 % 07/03/24 21:00 Porter % (Auto) 5.5 % 07/03/24 21:00 Eos % (Auto) 0.4 % 07/03/24 21:00 Baso % (Auto) 0.4 % 07/03/24 21:00 Neut # (Auto) 15.61 K/uL (1.40-6.50) H 07/03/24 21:00 Lymph # (Auto) 2.13 K/uL (1.20-3.40) 07/03/24 21:00 Porter # (Auto) 1.05 K/uL (0.11-0.59) H 07/03/24 21:00 Eos # (Auto) 0.08 K/uL (0.00-0.50) 07/03/24 21:00 Baso # (Auto) 0.08 K/uL (0.00-0.20) 07/03/24 21:00 Immature Gran # (Auto) 0.13 K/uL (0.01-0.20) 07/03/24 21:00 PT 12.2 Seconds (9.0-12.0) H 07/03/24 21:00 INR 1.1 (0.9-1.1) 07/03/24 21:00 APTT 32 Seconds (21-31) H 07/03/24 21:00 PTT Ratio 1.2 07/03/24 21:00 Sodium 140 mmol/L (136-145) 07/03/24 21:00 Potassium 4.3 mmol/L (3.5-5.1) 07/03/24 21:00 Chloride 107 mmol/L (98-107) 07/03/24 21:00 Carbon Dioxide 27 mmol/L (21-32) 07/03/24 21:00 Anion Gap 6 (3-11) 07/03/24 21:00 BUN 17 mg/dl (6-23) 07/03/24 21:00 Creatinine 0.88 mg/dl (0.6-1.2) 07/03/24 21:00 Est Cr Clr Drug Dosing 89.1 ml/min 07/03/24 21:00 eGFR 70.22 07/03/24 21:00 BUN/Creatinine Ratio 19.3 (10-20) 07/03/24 21:00 Glucose 187 mg/dl (70-99(Fasting)) H 07/03/24 21:00 Lactate 1.8 mmol/L (0.4-2.0) 07/03/24 23:18 Calcium 9.6 mg/dl (8.6-10.3) 07/03/24 21:00 Magnesium 1.3 mg/dl (1.7-2.4) L 07/03/24 21:00 Total Bilirubin 1.1 mg/dl (0.2-1.0) H 07/03/24 21:00 AST 17 U/L (13-39) 07/03/24 21:00 ALT 16 U/L (7-52) 07/03/24 21:00 Alkaline Phosphatase 81 U/L (34-104) 07/03/24 21:00 Troponin I High Sens 6.0 pg/ml (0-14) 07/03/24 21:00 B-Natriuretic Peptide 246 pg/ml (0-100) H 07/03/24 21:38 Total Protein 7.7 gm/dl (6.0-8.3) 07/03/24 21:00 Albumin 4.1 gm/dl (3.4-5.0) 07/03/24 21:00 Globulin 3.6 gm/dl (2.5-4.0) 07/03/24 21:00 Albumin/Globulin Ratio 1.1 (0.9-2) 07/03/24 21:00 Procalcitonin 0.09 ng/ml (0-0.5) 07/03/24 21:00 Urine Color Dark Yellow 07/03/24 21:05 Urine Appearance Clear (Clear) 07/03/24 21: Urine pH 7.5 (4.5-7.5) 07/03/24 21:05 Ur Specific [place] 1.020 (1.000-1.030) 07/03/24 21:05 Urine Protein 1+ (Negative) H 07/03/24 21:05 Urine Glucose (UA) Negative (Negative) 07/03/24 21:05 Urine Ketones Negative (Negative) 07/03/24 21:05 Urine Blood Negative (Negative) 07/03/24 21:05 Urine Nitrite Negative (Negative) 07/03/24 21:05 Urine Bilirubin Negative (Negative) 07/03/24 21:05 Urine Urobilinogen Negative (Negative) 07/03/24 21:05 Ur Leukocyte Esterase Negative (Negative) 07/03/24 21:05 Urine WBC (Auto) 0-5 /hpf (0-5) 07/03/24 21:05 Urine RBC (Auto) 0-2 /hpf (0-2) 07/03/24 21:05 U Hyaline Cast (Auto) 0-2 /lpf (0-2) 07/03/24 21:05 U Epithel Cells (Auto) 0-2 /hpf (0-2) 07/03/24 21:05 Urine Bacteria (Auto) None Seen (None Seen) 07/03/24 21:05 Adenovirus (PCR) Not Detected (NotDetected) 07/03/24 21:31 B. pertussis DNA (PCR) Not Detected (NotDetected) 07/03/24 21:31 B.parapertussis DNA PCR Not Detected (NotDetected) 07/03/24 21:31 C. pneumoniae DNA (PCR) Not Detected (NotDetected) 07/03/24 21:31 Coronavirus OC43 (PCR) Not Detected (NotDetected) 07/03/24 21:31 Coronavirus HKU1 (PCR) Not Detected (NotDetected) 07/03/24 21:31 Coronavirus 229E (PCR) Not Detected (NotDetected) 07/03/24 21:31 SARS-CoV-2 (PCR) Not Detected (NotDetected) 07/03/24 21:31 Coronavirus NL63 (PCR) Not Detected (NotDetected) 07/03/24 21:31 Human Metapneumovir PCR Not Detected (NotDetected) 07/03/24 21:31 Influenza Type A (PCR) Not Detected (NotDetected) 07/03/24 21:31 Influenza Type B (PCR) Not Detected (NotDetected) 07/03/24 21:31 M. pneumoniae (PCR) Not Detected (NotDetected) 07/03/24 21:31 Parainfluenza 1 (PCR) Not Detected (NotDetected) 07/03/24 21:31 Parainfluenza 2 (PCR) Not Detected (NotDetected) 07/03/24 21:31 Parainfluenza 3 (PCR) Not Detected (NotDetected) 07/03/24 21:31 Parainfluenza 4 (PCR) Not Detected (NotDetected) 07/03/24 21:31 RSV (PCR) Not Detected (NotDetected) 07/03/24 21:31 Entero/Rhino (PCR) Not Detected (NotDetected) 07/03/24 21:31 Impressions Chest X-Ray 07/03/24 21:04 Exam(s): XR CXR 1 VIEW EXAM: XR Chest, 1 View CLINICAL HISTORY: Reason for exam: Sepsis. TECHNIQUE: Frontal view of the chest. COMPARISON: 04/08/2023 FINDINGS: Lungs: Interstitial edema and atelectasis at the lung bases. Pleural space: No pleural effusion. No pneumothorax. Heart: Cardiomegaly. IMPRESSION: 1. Interstitial edema and atelectasis at the lung bases. 2. Cardiomegaly. Electronically signed by: Gurjit Roberts MD 07/03/24 23:10 PM Abdomen/Pelvis CT 07/03/24 21:27 Exam(s): CT ABDOMEN + PELVIS Without Contrast EXAM: CT Abdomen and Pelvis Without Intravenous Contrast CLINICAL HISTORY: Reason for exam: fever; h/o obstructing stones. TECHNIQUE: Axial computed tomography images of the abdomen and pelvis without intravenous contrast. CTDI is 28.14 mGy and DLP is 1457.61 mGy-cm. Automated exposure control was utilized for the study. A dose lowering technique was utilized adhering to the principles of ALARA. COMPARISON: CT 07/16/2023. FINDINGS: ABDOMEN: Liver: Liver is enlarged measuring 25 cm. Gallbladder and bile ducts: Unremarkable. Pancreas: Unremarkable. Spleen: Unremarkable. Adrenals: Unremarkable. Kidneys and ureters: No ureteral stone or obstructive uropathy. Stomach and bowel: Colonic diverticulosis without acute diverticulitis. PELVIS: Appendix: No findings to suggest acute appendicitis. Bladder: Unremarkable. Reproductive: Hysterectomy. ABDOMEN and PELVIS: Intraperitoneal space: Unremarkable. No free air. No significant fluid collection. 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 Soft tissues: Edema of the ventral abdominal wall. No fluid collection or soft tissue gas. Vasculature: Atherosclerotic calcifications. Lymph nodes: Unremarkable. IMPRESSION: 1. No ureteral stone or obstructive uropathy. 2. Colonic diverticulosis without acute diverticulitis. 3. Hepatomegaly. Electronically signed by: Gurjit Roberts MD 07/03/24 23:30 PM ECG Additional Comments: ECG. Atrial fibrillation with PVCs at the rate of 91. Right bundle branch block. Inverted T waves in lateral leads. Code Status & VTE Plan VTE Prophylaxis Plan VTE Prophylaxis will be ordered: Yes (1) Acute exacerbation of CHF (congestive heart failure) Heart failure type: unspecified Qualified Code(s): I50.9 - Heart failure, unspecified
[2024-07-04] MEDS: APIXABAN 5 MG TABLET PO ONE (02:15)
[2024-07-04] MEDS: MAGNESIUM SULFATE / D5W 1 GM/100 ML BAG IV STA (02:15)
[2024-07-04] MEDS: METOPROLOL SUCC 50MG EXT REL TAB PO STA (02:15)
[2024-07-04] MEDS: PREGABALIN 50 MG CAP PO STA (02:18)
[2024-07-04] MEDS ORDERED: NITROGLYCERIN SL 0.4 MG/TAB TAB SL PRN (02:41)
[2024-07-04] MEDS ORDERED: ALBUTEROL HFA 8 GM INHALER INH PRN (02:41)
[2024-07-04] MEDS ORDERED: GLUCOSE 10 TAB/TUBE PO PRN (02:41)
[2024-07-04] MEDS ORDERED: CARBOHYDRATES FOR HYPOGLYCEMIA PO PRN (02:41)
[2024-07-04] MEDS ORDERED: DEXTROSE 50% 50 ML SYRINGE IV PRN (02:41)
[2024-07-04] MEDS ORDERED: PHARMACY GLYCEMIC MGMT CONSULT PRN (02:41)
[2024-07-04] MEDS ORDERED: GLUCOSE 40% GEL 15 GM TUBE PO PRN (02:41)
[2024-07-04] MEDS ORDERED: LEVALBUTEROL TARTRATE 15 GM HFA.AER.AD INH PRN (02:41)
[2024-07-04] MEDS ORDERED: GLUCAGON FOR INJ 1 MG VIAL SQ PRN (02:41)
[2024-07-04] MEDS: 4.5GM X1 IV STA (04:34)
[2024-07-04] MEDS: DOXYCYCLINE HYCLATE 100 MG in DEXTROSE 5% MINI-B 100 ML IV SCH (04:34)
--- NOTE | 2024-07-04 04:38 | CT Scan Report ---
EXAM: CT chest diagnostic wo con CLINICAL HISTORY: Shortness of breath. cough. chf/pnneumonia TECHNIQUE: Contiguous axial CT images of the chest were acquired without the administration of intravenous contrast. Coronal and sagittal reconstructions were obtained. One of the following dose reduction techniques were utilized for this exam: Automated exposure control, adjustment of the mA and/or kV according to patient size, and use of iterative reconstruction. COMPARISON: 01/23/2023. FINDINGS: Lungs: Bilateral diffuse centrilobular emphysematous changes are more evident at both upper lung lobes. Bilateral diffuse predominant ground glassing is most evident at basal segments. A ground glass nodule is seen along the anterolateral aspect of right upper lung lobe measuring about 8 mm. Another perifissural nodule is seen aling the right major fissure, measuring about 9 mm. Bilateral mild pleural thickening/pleural effusion with bilateral basal atelectasis Mediastinum: The mediastinum is normal in size and contour. Multiple mediastinal lymph nodes are noted, the largest measuring about 22x17 mm seen at pretracheal group. Cardiomegaly is noted. Trachea and Main Bronchi: The trachea and main bronchi are patent without evidence of obstruction or abnormality. Chest Wall: The chest wall is unremarkable with no evidence of soft tissue or bony abnormalities. Upper Abdomen: Visualized portions of the liver, spleen, adrenal glands, and kidneys are unremarkable. Bones: Diffuse spondylotic changes of scanned spine. Stable. IMPRESSION: 1. Bilateral diffuse predominant ground glassing, most evident at basal segments, could reflect pulmonary congestive status. Progression. 2. Bilateral mild pleural thickening/pleural effusion with bilateral basal atelectasis.Progressive.. 3. A ground glass nodule is seen along the anterolateral aspect of right upper lung lobe measuring about 8 mm[address]New finding[address]Recommend CT at 6-12 months according to Fleschnier criteria. 4. Bilateral diffuse centrilobular emphysematous changes are more evident at both upper lung lobes. Stable 5. Multiple mediastinal lymph nodes are noted , the largest measures about 22x17 mm seen at pretracheal group.New finding. 6. Recommend clinical correlation and follow up. Electronically signed by Kingston Melo 07-04-2024 04:37 AM
[2024-07-04] MEDS: INSULIN ASPART PER UNIT CHARGE SC SCH ×2 (04:39→17:18)
[2024-07-04 05:39] LABS: Basophils # (auto) 0.05 K/uL (0.00-0.20); Basophils % (auto) 0.3 %; Hemoglobin 9.6 g/dl (12.0-16.0); Immature Granulocytes # (auto) 0.21 K/uL (0.01-0.20); Immature Granulocytes % (auto) 1.2 %; Lymphocytes # (auto) 1.57 K/uL (1.20-3.40); Lymphocytes % (auto) 9.3 %; Mean Corpuscular Hemoglobin 23.9 pg (25.0-34.0); Mean Corpuscular Volume 79.8 fL (80.0-100.0); Monocytes # (auto) 0.16 K/uL (0.11-0.59); Monocytes % (auto) 0.9 %; Neutrophils # (auto) 14.89 K/uL (1.40-6.50); Neutrophils % (auto) 88.3 %; Platelet Count 155 K/uL (130-400); RDW Coefficient of Variation 19.2 % (11.5-14.5); RDW Standard Deviation 55.8 fL (36.4-46.3); Red Blood Count 4.01 M/uL (4.20-5.40); White Blood Count 16.88 K/ul (4.8-10.8)
[2024-07-04 05:55] LABS: Anion Gap 7 (3-11); BUN Creatinine Ratio 16.7 (10-20); Blood Urea Nitrogen 15 mg/dl (6-23); Calcium 9.3 mg/dl (8.6-10.3); Carbon Dioxide 27 mmol/L (21-32); Chloride 105 mmol/L (98-107); Creatinine Clr Calc Pharmacy 87.2 ml/min; Glucose 219 mg/dl (70-99(Fasting)); Magnesium 1.5 mg/dl (1.7-2.4); Potassium 4.6 mmol/L (3.5-5.1); Sodium 139 mmol/L (136-145)
[2024-07-04 06:02] LABS: Troponin I High Sensitivity < 2.3 pg/ml (0-14)
[2024-07-04] MEDS: LEVALBUTEROL 1.25 MG/3 ML NEB NEB SCH (07:04)
[2024-07-04] MEDS ORDERED: NON-FORMULARY MEDICATION (Insulin Regular Hum U-500 Conc [Humulin R U-500 (Conc) Kwikpen] SQ SCH (07:30)
[2024-07-04 08:16] LABS: Estimated Average Glucose 197 mg/dl; Hemoglobin A1C 8.5 % (4.5-5.6)
--- NOTE | 2024-07-04 08:39 | Electrocardiogram Report ---
Test Reason : Blood Pressure : */* mmHG Vent. Rate : 91 BPM Atrial Rate : * BPM P-R Int : * ms QRS Dur : 130 ms QT Int : 402 ms P-R-T Axes : * -4 -59 degrees QTcB Int : 494 ms Atrial fibrillation with premature ventricular or aberrantly conducted complexes Right bundle branch block Nonspecific ST abnormality Lateral leads Abnormal ECG When compared with ECG of 10-Apr-2023 06:46, Inverted T waves have replaced nonspecific T wave abnormality in Lateral leads Confirmed by Jet Danielson ([id number]) on 07/04/2024 8:38:50 AM Referred By: Confirmed By: Jet Danielson
[2024-07-04] MEDS ORDERED: [UNRECOGNIZED DRUG - OTHER] PO SCH (09:00)
[2024-07-04] MEDS ORDERED: MANG PO SCH (09:00)
[2024-07-04] MEDS ORDERED: LANTUS PER UNIT CHARGE SC SCH (09:00)
[2024-07-04] MEDS ORDERED: VIT D PO SCH (09:00)
[2024-07-04] MEDS: UMECLIDINIUM/VILANTEROL 62.5/25MCG 7 PUFFS/INHALER INH SCH (09:13)
[2024-07-04] MEDS: FLUTICASONE FUROATE 100MCG 14 PUFFS/INHALER INH SCH (09:13)
[2024-07-04] MEDS: FLUTICASONE PROPIONATE NA SPR 16 GM BTL NAE SCH (09:13)
[2024-07-04] MEDS: OXcarbazepine 150 MG TABLET PO SCH (09:13)
[2024-07-04] MEDS: IPRATROPIUM BROMIDE NASAL SPRAY 0.03% 30 ML SCH (09:13)
[2024-07-04] MEDS: LORATADINE 10 MG TAB PO SCH (09:14)
[2024-07-04] MEDS: PANTOprazole 40 MG TAB PO SCH (09:14)
[2024-07-04] MEDS: guaiFENesin 600 MG TABCR PO PRN (09:14)
[2024-07-04] MEDS: MONTELUKAST SODIUM 10 MG TABLET PO SCH (09:14)
[2024-07-04] MEDS: POTASSIUM CITRATE 10 MEQ TAB PO SCH (09:14)
[2024-07-04] MEDS: FUROSEMIDE 40 MG/4 ML VIAL IV SCH (09:14)
[2024-07-04] MEDS: VITAMIN B COMPLEX TAB PO SCH (09:14)
[2024-07-04] MEDS: ADVANCED PROBIOTIC 625 MG CAPSULE PO SCH (09:14)
[2024-07-04] MEDS: MAGNESIUM OXIDE 400 MG TAB PO SCH (09:14)
[2024-07-04] MEDS: SUCRALFATE 1 GM TAB PO PRN (09:14)
[2024-07-04] MEDS: TAMSULOSIN HCL 0.4 MG CAP PO SCH (09:15)
[2024-07-04] MEDS: METOPROLOL SUCC 50MG EXT REL TAB PO SCH (09:15)
[2024-07-04] MEDS: FOLIC ACID 400 MCG TAB PO SCH (09:15)
[2024-07-04] MEDS: ATORVASTATIN 40 MG TAB PO SCH (09:15)
[2024-07-04] MEDS: PIPERACILLIN/TAZOBACTAM 4.5 GM/100 ML BAG IV SCH (09:18)
[2024-07-04] MEDS: PREGABALIN 50 MG CAP PO SCH (09:23)
[2024-07-04] MEDS: FAMOTIDINE 20 MG TAB PO SCH (09:23)
[2024-07-04] MEDS: ACETAMINOPHEN 325 MG TAB PO SCH (09:23)
--- NOTE | 2024-07-04 09:23 | Hospitalist Progress Note ---
Date of Service July 04, 2024 Assessment & Plan (1) Acute exacerbation of CHF (congestive heart failure): Plan: 73-year-old female with past medical history significant for type 2 diabetes, dyslipidemia, gastroparesis due to diabetes, COPD, obstructive sleep apnea on CPAP, chronic diastolic CHF, history of CVA, persistent atrial fibrillation, hypertension, morbid obesity, GERD, CKD stage III, bipolar 2 disorder, major depression, former smoker comes because of shortness of breath for 4 days Acute on chronic diastolic CHF Acute hypoxic respiratory failure Patient presented to the hospital with shortness of breath for [address] chest showed bilateral diffuse groundglass opacity concerning for pulmonary edema. Lung nodule seen in right upper lobe of 8 mm Last echocardiogram in April 2023 shows EF of 60 to 65%; Echo shows EF of 60-65%; severely dilated left atrium. Continue IV Lasix twice a day Daily weights A strict EDIL's Patient reports that she has not been taking torsemide for several days. Bilateral lower extremity cellulitis Empirically placed on Zosyn and doxycycline Patient is allergic to cephalosporin but seems tolerated Zosyn in the past Will monitor the response History of COPD No obvious wheezing received a dose of steroid in the ER For we will continue nebs [id number]-fgtyb and as needed and home inhalers and monitor Obstructive sleep apnea CPAP/BiPAP nightly Type 2 diabetes Continue home long-acting insulin Hold metformin Sliding scale Glycemic pharmacy consult History of persistent atrial fibrillation On metoprolol succinate, digoxin and Eliquis Will monitor Obesity Class III Follow up as outpatient Bipolar 2 disorder Depression On oxcarbazepine,continue Dyslipidemia On statin,continue GERD On famotidine and Protonix,continue Hypertension On metoprolol and prazosin and diuretics Will monitor DVT prophylaxis On Eliquis Disposition Telemetry Full code. Time spent evaluating patient, direct bedside care, chart review, placing orders, interpretation of diagnostic studies, discussion with consultants, patient, and family members, as well as other required patient management activities is 50 minutes Please note the above document was generated using voice recognition software. It may contain grammatical, syntax or spelling errors. Any formal questions or concerns about the content, text or information contained within the body of this dictation should be directly addressed to the provider for clarification Admission and Anticipated Discharge Date Admission Date: July 04, 2024 Subjective Patient seen and examined at bedside. She reports shortness of breath on minima l exertion Reports she is feeling better compared to before She is alert oriented x 3. She is requiring 2 L of oxygen by nasal cannula Review of Systems Review of Systems: All systems reviewed & are unremarkable except as noted in Subjective Physical Exam Physical Exam: General- Not in distress Head- atraumatic Eyes- PERRL. ENT- oropharynx clear Neck- supple, no JVD. Lungs- clear to auscultation no wheezing, mild bibasilar crackles Heart- regular rhythm; no murmur, no gallop. Abdomen- normal bowel sounds, soft, nontender, no distension Extremities- b/l lower extremity edema with chronic skin changes with erythema seen. Neuro- alert, oriented PERRL, no facial palsy; no dysarthria; moves extremities Results & Data Results & Data Vital Signs (Past 12 Hours) Vital Signs Temp Pulse Pulse Resp BP Pulse Ox Pulse Ox 07/04/24 07:42 37.0 C 86 20 148/80 H 91 07/04/24 07:41 07/04/24 07:04 85 18 91 07/04/24 05:18 88 24 95 07/04/24 02:52 36.6 C 87 22 149/80 H 87 L 07/04/24 02:47 90 25 H 96 07/04/24 02:41 93 H 07/04/24 02:41 07/04/24 02:41 96 07/04/24 02:30 86 20 95 07/04/24 01:00 93 H 26 H 165/96 H 97 07/04/24 00:55 87 07/03/24 23:00 88 22 141/65 H 96 07/03/24 22:46 92 H 24 144/82 H 97 07/03/24 22:20 90 26 H 95 07/03/24 22:08 90 22 118/68 93 O2 Del Method O2 Del Method O2 Flow Rate O2 Flow Rate 07/04/24 07:42 Nasal Cannula 4 07/04/24 07:41 Nasal Cannula 4 07/04/24 07:04 Nasal Cannula 4 07/04/24 05:18 4 07/04/24 02:52 Nasal Cannula 6 07/04/24 02:47 Nasal Cannula 4 07/04/24 02:41 07/04/24 02:41 Nasal Cannula 6 07/04/24 02:41 Nasal Cannula 6 07/04/24 02:30 5 07/04/24 01:00 BiPAP 07/04/24 00:55 07/03/24 23:00 Room Air 07/03/24 22:46 BiPAP 07/03/24 22:20 5 07/03/24 22:08 Nasal Cannula 6 (1) Acute exacerbation of CHF (congestive heart failure) Heart failure type: unspecified Qualified Code(s): I50.9 - Heart failure, unspecified
[2024-07-04] MEDS: LANTUS PER UNIT CHARGE SC SCH (09:24)
--- NOTE | 2024-07-04 10:54 | Cardiology Consultation ---
Date of Consultation July 04, 2024 Assessment & Plan (1) Acute on chronic heart failure with preserved ejection fraction (HFpEF): (2) Permanent atrial fibrillation: (3) Acute hypoxemic respiratory failure: (4) Bilateral cellulitis of lower leg: (5) Morbid obesity: (6) REENA (obstructive sleep apnea): Plan 73-year-old female admitted with acute on chronic heart failure with preserved ejection fraction due to noncompliance with diuretic therapy in the outpatient setting. Recommendations: * Continue IV Lasix 40 mg twice daily * Maintain negative fluid balance 2-5 L per 24 hours * Consider titration of Lasix to 60 mg twice daily pending review of urine output/fluid balance * Monitor fluid balance, daily weight, GFR, and electrolytes * Maintain serum potassium greater than 4.0, serum magnesium greater than 2.0 * Fluid restrict patient to 1.5 L daily. * Preliminary review of bedside echocardiogram demonstrates preserved LV systolic function * Continue chronic anticoagulation with Eliquis * Continue metoprolol succinate and daily digoxin as ordered * Supplemental oxygen as needed (SaO2 >90%) with CPAP nightly Aries Mosley DO [facility] History of Present Illness Reason for Consultation: CHF Requesting Physician: Dr. Palmer Attending Physician: Deuce Harvey MD History of Present Illness 73-year-old female presented to the emergency department 07/03/2024 due to worsening shortness of breath. Admits to noncompliance with diuretic therapy for more than 1 week prior to admission. Reports difficulty getting out of a chair to use the commode due to ongoing hip pain. Significant weight gain and edema noted. Reports orthopnea and paroxysmal nocturnal dyspnea. Complex history includes permanent atrial fibrillation, chronic heart failure with preserved ejection fraction, diabetes, dyslipidemia, morbid obesity with obstructive sleep apnea on CPAP, CVA, and chronic kidney disease stage III. Currently patient feeling somewhat better with IV diuresis. Denies chest pain or heaviness. Telemetry with atrial fibrillation in the 80s. Offers no other concerns/complaints. Allergies Allergy/AdvReac Type Severity Reaction Status Date / Time Cephalosporins Allergy Intermediate RASH Verified 07/03/24 22:50 clarithromycin Allergy Intermediate Rash Verified 07/03/24 22:50 Sulfa (Sulfonamide Allergy Intermediate "Sulfa Verified 07/03/24 22:50 Antibiotics) Drugs = rash" terconazole Allergy Intermediate ITCHING, Verified 07/03/24 22:50 BURNING clavulanic acid Allergy Unknown UNKNOWN Verified 07/03/24 22:50 clobetasol Allergy Unknown Unknown Verified 07/03/24 22:50 adhesive AdvReac Mild BAND-AIDS Verified 07/03/24 22:50 = SKIN IRRITATION Home Medications Medication Instructions Recorded Confirmed Type apixaban 5 mg tablet (Eliquis) 5 mg PO BID 01/23/23 07/03/24 History atorvastatin 40 mg tablet 40 mg PO QAM 01/23/23 07/03/24 History famotidine 20 mg tablet 20 mg PO QAM 01/23/23 07/03/24 History ipratropium bromide 21 mcg (0.03 2 spray intranasal AMHS 01/23/23 07/03/24 History %) nasal spray metformin 1,000 mg tablet 1,000 mg PO BID 01/23/23 07/03/24 History montelukast 10 mg tablet 10 mg PO QAM 01/23/23 07/03/24 History nystatin 100,000 unit/gram topical 1 applic topical BID PRN Skin 01/23/23 07/03/24 History powder Irritation nystatin-triamcinolone 100,000 1 applic topical BID PRN .flare ups 01/23/23 07/03/24 History unit/g-0.1 % topical cream pantoprazole 40 mg tablet,delayed 40 mg PO QAM 01/23/23 07/03/24 History release triamcinolone acetonide 0.1 % 1 applic topical BID PRN .flare ups 01/23/23 07/03/24 History topical ointment metoprolol succinate 100 mg 100 mg PO BID #60 tabs 04/13/23 07/03/24 Rx tablet,extended release 24 hr fluticasone fur. 100 mcg-umeclid 1 inh inhalation DAILY #60 ea 05/29/23 07/03/24 Rx 62.5 mcg-vilant 25 mcg inhalat.powder (Trelegy Ellipta) levalbuterol HCl 0.63 mg/3 mL 0.63 mg (3 mL) inhalation Q4 PRN 05/29/23 07/03/24 Rx solution for nebulization Wheezing #90 mL levalbuterol tartrate 45 2 inh inhalation Q6H PRN wheezing 06/03/23 07/03/24 Rx mcg/actuation aerosol inhaler #15 grams (Xopenex HFA) omega-3 fatty acids 1,000 mg 1,000 mg PO QAM 07/16/23 07/03/24 History capsule Lactobacillus acidophilus 250 1,000 mmu cells PO BID 03/08/24 07/03/24 History million cell capsule (Probiotic Acidophilus) albuterol sulfate 90 mcg/actuation 2 puff inhalation Q6H PRN 03/08/24 07/03/24 History aerosol inhaler Shortness Of Breath Or Wheezing biotin 1 mg capsule 1 mg PO DAILY 03/08/24 07/03/24 History bisacodyl 5 mg tablet,delayed 5 mg PO DAILY PRN constipation 03/08/24 07/03/24 History release cinnamon bark 500 mg capsule 1,000 mg PO BID 03/08/24 07/03/24 History (Cinnamon) clobetasol 0.05 % topical cream 1 applic topical DAILY PRN Skin 03/08/24 07/03/24 History Irritation coenzyme Q10 10 mg capsule (Co 10 mg PO DAILY 03/08/24 07/03/24 History Q-10) cranberry 500 mg capsule 1,000 mg PO DAILY 03/08/24 07/03/24 History glucosamine 750 bq-ymyxlq-ljz 2-C 1 tab PO DAILY 03/08/24 07/03/24 History 30 mg-D3 1,000 unit-danny 1 mg tablet (Xhvvxfpwoqf-Yyldfboywxt-WWE + vitD) insulin regular hum U-500 conc 500 100 unit subcut ACHS 03/08/24 07/03/24 History unit/mL(3 mL) subcut pen (Humulin R U-500 (Conc) Insulin Kwikpen) loratadine 10 mg tablet 10 mg PO DAILY 03/08/24 07/03/24 History oxcarbazepine 150 mg tablet 150 mg PO DAILY 03/08/24 07/03/24 History (Trileptal) potassium citrate 10 mEq (1,080 10 meq PO BID 03/08/24 07/03/24 History mg) tablet,extended release prazosin 1 mg capsule 1 mg PO HS 03/08/24 07/03/24 History triamcinolone acetonide 55 mcg 2 spray intranasal DAILY 03/08/24 07/03/24 History nasal spray aerosol vitamin B complex-folic acid 0.4 1 tab PO DAILY 03/08/24 07/03/24 History mg tablet acetaminophen 325 mg tablet 650 mg PO Q6H PRN Pain 07/03/24 07/03/24 History acetaminophen 650 mg 650 mg PO BID 07/03/24 07/03/24 History tablet,extended release (Arthritis Pain Relief (acetaminophen) ER) diclofenac sodium 1 % topical gel 2 g topical BID PRN PAINFUL JOINTS 07/03/24 07/03/24 History digoxin 125 mcg (0.125 mg) tablet 0.125 mg PO QAM 07/03/24 07/03/24 History guaifenesin 600 mg tablet, 600 mg PO DAILY PRN Congestion 07/03/24 07/03/24 History extended release 12 hr (Mucinex) magnesium oxide 400 mg (241.3 mg 400 mg PO QAM 07/03/24 07/03/24 History magnesium) tablet ukxnrfuk-kxv-nqct-FA-Ca carb-vit K 1 tab PO HS 07/03/24 07/03/24 History 18 mg iron-400 mcg-500 mg tablet (Women's One Daily) pregabalin 50 mg capsule 50 mg PO TID 07/03/24 07/03/24 History sucralfate 1 gram tablet (Carafate) 1 g PO QID PRN ACID REFLUX/UPSET 07/03/24 07/03/24 History STOMACH tamsulosin 0.4 mg capsule 0.4 mg PO QAM 07/03/24 07/03/24 History torsemide 40 mg tablet 40 mg PO DAILY 07/03/24 07/03/24 History tramadol 50 mg tablet 50 mg PO HS PRN pain 07/03/24 07/03/24 History Patient History Medical History UTI (urinary tract infection) being treated w/ macrobid History of COVID-19 03/07/23- hospitalized at [facility], "breathing issues" 02/14/2023, continues with cough and runny nose currently Chronic sinusitis Wound dehiscence 2015 s/p hysterectomy Kidney stones passed on own previously and also stent placed 01/[address] [facility] [place] History of bleeding ulcers GERD (gastroesophageal reflux disease) Post traumatic stress disorder Depression Anxiety Peripheral neuropathy bilateral 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 no problems since then. History of pneumococcal septicemia treated at [facility] 2012. History of cardioversion Surgical History S/P laparotomy to repair hysterectomy wound dehiscence. History of cataract surgery bilateral History of tonsillectomy History of colonoscopy History of esophagogastroduodenoscopy (EGD) History of bronchoscopy S/P tendon repair bicep tendon repair (left) History of open reduction and internal fixation (ORIF) procedure Left elbow with hardware Hx of nasal septoplasty H/O: hysterectomy LUCERO with BSO Family History Other Diabetes No family history of adverse response to anesthesia Social History Smoking Status: Former smoker Tobacco Type: Cigarettes Second Hand Exposure: No; Do You Dip or Chew Tobacco: No; Hx Alcohol Use: No Hx Substance Use: No Preferred Language: Greenlandic Communication Ability: Effective Television Operator Required: No Beliefs That Will Affect Care: None marital status: Current Living Situation: Spouse Feels Safe at Home: Yes Assistive Devices: Cane, CPAP, Nebulizer, Raised Toilet Seat, Walker, Wheelchair and Other Review of Systems Review of Systems: All systems reviewed & are unremarkable except as noted in Subjective Physical Exam Constitutional: + morbidly obese; no acute distress Respiratory: no respiratory distress and no labored breathing Auscultation: + diminished lung sounds (B/L bases) and + rales (B/L); no wheezes Cardiovascular: Rate/Rhythm: + irregularly irregular Heart Sounds: normal S1 and normal S2; no murmur Vessels: + JVD Extremities: + edema (2+ pretibial with stasis changes) Gastrointestinal (Abdomen): Inspection/Auscultation: normal bowel sounds; abdomen not distended Percussion/Palpation: abdomen soft; abdomen nontender, no guarding and abdomen not rigid Neurologic: CN's II-XI intact bilaterally and moves all extremities; no focal motor deficits Results & Data Vital Signs (Past 12 Hours) Vital Signs Temp Pulse Pulse Resp BP Pulse Ox Pulse Ox 07/04/24 10:41 18 91 07/04/24 07:42 37.0 C 86 20 148/80 H 91 07/04/24 07:41 07/04/24 07:04 85 18 91 07/04/24 05:18 88 24 95 07/04/24 02:52 36.6 C 87 22 149/80 H 87 L 07/04/24 02:47 90 25 H 96 07/04/24 02:41 93 H 07/04/24 02:41 07/04/24 02:41 96 07/04/24 02:30 86 20 95 07/04/24 01:00 93 H 26 H 165/96 H 97 07/04/24 00:55 87 07/03/24 23:00 88 22 141/65 H 96 O2 Del Method O2 Del Method O2 Flow Rate O2 Flow Rate 07/04/24 10:41 Nasal Cannula 2 07/04/24 07:42 Nasal Cannula 4 07/04/24 07:41 Nasal Cannula 4 07/04/24 07:04 Nasal Cannula 4 07/04/24 05:18 4 07/04/24 02:52 Nasal Cannula 6 07/04/24 02:47 Nasal Cannula 4 07/04/24 02:41 07/04/24 02:41 Nasal Cannula 6 07/04/24 02:41 Nasal Cannula 6 07/04/24 02:30 5 07/04/24 01:00 BiPAP 07/04/24 00:55 07/03/24 23:00 Room Air Laboratory Results Cardiac Enzymes 07/03/24 07/03/24 07/04/24 Range/Units 21:00 21:38 05:21 AST 17 (13-39) U/L Troponin I High Sens 6.0 < 2.3 (0-14) pg/ml B-Natriuretic Peptide 246 H (0-100) pg/ml Coagulation 07/03/24 07/03/24 Range/Units 21:00 21:38 PT 12.2 H (9.0-12.0) Seconds APTT 32 H (21-31) Seconds B-Natriuretic Peptide 246 H (0-100) pg/ml CBC 07/03/24 07/04/24 Range/Units 21:00 05:21 WBC 19.08 H 16.88 H (4.8-10.8) K/ul RBC 4.02 L 4.01 L (4.20-5.40) M/uL Hgb 9.8 L 9.6 L (12.0-16.0) g/dl Hct 32.4 L 32.0 L (37.0-47.0) % Plt Count 156 155 (130-400) K/uL Neut # (Auto) 15.61 H 14.89 H (1.40-6.50) K/uL Lymph # (Auto) 2.13 1.57 (1.20-3.40) K/uL [place] # (Auto) 1.05 H 0.16 (0.11-0.59) K/uL Eos # (Auto) 0.08 0.00 (0.00-0.50) K/uL Baso # (Auto) 0.08 0.05 (0.00-0.20) K/uL Comprehensive Metabolic Panel 07/03/24 07/04/24 Range/Units 21:00 05:21 Sodium 140 139 (136-145) mmol/L Potassium 4.3 4.6 (3.5-5.1) mmol/L Chloride 107 105 (98-107) mmol/L Carbon Dioxide 27 27 (21-32) mmol/L BUN 17 15 (6-23) mg/dl Creatinine 0.88 0.90 (0.6-1.2) mg/dl Glucose 187 H 219 H (70-99(Fasting)) mg/dl Calcium 9.6 9.3 (8.6-10.3) mg/dl AST 17 (13-39) U/L ALT 16 (7-52) U/L Alkaline Phosphatase 81 (34-104) U/L Total Protein 7.7 (6.0-8.3) gm/dl Albumin 4.1 (3.4-5.0) gm/dl Intake and Output 07/03/24 07/04/24 07/04/24 22:59 06:59 14:59 Intake Total 400 / 400 Output Total 250 / 250 Balance 150 / 150 Intake: IV 300 / 300 Doxycycline Hyclate 100 mg In 100 / 100 Dextrose 5% Mini-B 100 ml @ 50 mls/hr IV Q12H GARIMA Rx#:[id number] Magnesium Sulfate / D5w 1 gm In 100 / 100 100 ml @ 100 mls/hr IV NOW STA Rx#:[id number] Piperacillin/Tazobactam 4.5 gm 100 / 100 In 100 ml @ 200 mls/hr IV NOW STA Rx#:[id number] Oral 100 / 100 Output: Urine Amount (Catheter) 250 / 250 External 250 / 250 Other: # Unmeasured Voids 1 Weight 158.7 kg 162 kg Weight Measurement Method [facility] in [facility]
[2024-07-04] MEDS: APIXABAN 5 MG TABLET PO SCH (12:07)
[2024-07-04] MEDS: SIMETHICONE 80 MG CHEW PO ONE (12:07)
--- NOTE | 2024-07-04 12:50 | Pharmacy Report ---
Pharmacy Glycemic Short Note 2 - Date of Service July 04, 2024 - Glycemic Short BSG Results (Last 24 hours): 07/03/24 07/04/24 07/04/24 21:00 04:27 05:21 Glucose 187 H 219 H POC Glucose 231 H 07/04/24 07/04/24 07/04/24 07:19 11:33 11:34 Glucose POC Glucose 260 H 495 H* 306 H* OUTPATIENT ANTIDIABETIC REGIMEN: * Humulin U-500 100 units ACHS * metformin 1000mg BID * HbA1c 8.5% (07/04/24) ASSESSMENT: * Tiffanie is a 73 YOF admitted with shortness of breath and a history of insulin dependent type 2 diabetes mellitus. Pharmacy has been consulted to assist with glycemic management while inpatient. She is familiar to the glycemic service from previous admissions * Initially started basal insulin at previously used dosing, MD decreased dosing this AM, plan to transition to U-500 with dinner at approx 75% home dosing. * NovoLog at previously used, very tight parameters, will remove carbohydrate ratio with addition of U-500. * She is on Zosyn and doxycycline IV currently, also received IV Solumedrol 60mg x1 yesterday evening which is likely contributing to hyperglycemia. PLAN FOR INPATIENT GLYCEMIC CONTROL: * Hold outpatient oral diabetes medications * Basal insulin * Lantus 80 units SQ x1 * Humulin U-500 150 units SQ x1 at dinner (plan 150 units QDB and QDD at this time, re-eval in AM) * Bolus insulin * NovoLog per scale ACHS or Q6hrs while NPO * Goal Range: Low 140 mg/dL - High 180 mg/dL * Correction Factor: 5 mg/dL/unit * Nutritional / Prandial insulin per carb ratio of 1 unit per 1/NONE grams CHO consumed (remove carbohydrate ratio with dinner and beginning on U-500)
--- NOTE | 2024-07-04 13:20 | Pharmacy Report ---
Pharmacy Glycemic Short Note 2 - Date of Service July 04, 2024 - Glycemic Short BSG Results (Last 24 hours): 07/03/24 07/04/24 07/04/24 21:00 04:27 05:21 Glucose 187 H 219 H POC Glucose 231 H 07/04/24 07/04/24 07/04/24 07:19 11:33 11:34 Glucose POC Glucose 260 H 495 H* 306 H* OUTPATIENT ANTIDIABETIC REGIMEN: * ASSESSMENT: * PLAN FOR INPATIENT GLYCEMIC CONTROL: * Hold outpatient oral diabetes medications * Basal insulin * Lantus [] units SQ BID * Bolus insulin * NovoLog per scale ACHS or Q6hrs while NPO * Goal Range: Low [] mg/dL - High [] mg/dL * Correction Factor: [] mg/dL/unit * Nutritional / Prandial insulin per carb ratio of 1 unit per [] grams CHO consumed
[2024-07-04] MEDS: DIGOXIN 0.125 MG TAB PO SCH (17:05)
[2024-07-04] MEDS: HumuLIN-R 500 UNITS/ML VIAL SQ SCH (17:18)
[2024-07-04] MEDS: CEROVITE ADV FORMULA TAB PO SCH (19:50)
[2024-07-04] MEDS: PRAZOSIN HCL 1 MG CAP PO SCH (19:51)
[2024-07-05] MEDS: INSULIN ASPART PER UNIT CHARGE SC SCH (02:10)
[2024-07-05 06:21] LABS: Basophils # (auto) 0.06 K/uL (0.00-0.20); Basophils % (auto) 0.5 %; Eosinophils # (auto) 0.12 K/uL (0.00-0.50); Eosinophils % (auto) 1.1 %; Hematocrit (blood only) 30.7 % (37.0-47.0); Hemoglobin 9.2 g/dl (12.0-16.0); Immature Granulocytes # (auto) 0.08 K/uL (0.01-0.20); Immature Granulocytes % (auto) 0.7 %; Lymphocytes % (auto) 29.1 %; Mean Corpuscular Hemoglobin 24.1 pg (25.0-34.0); Mean Corpuscular Volume 80.6 fL (80.0-100.0); Mean Platelet Volume 11.8 fL (9.4-12.4); Monocytes # (auto) 0.94 K/uL (0.11-0.59); Monocytes % (auto) 8.3 %; Neutrophils # (auto) 6.83 K/uL (1.40-6.50); Neutrophils % (auto) 60.3 %; Platelet Count 159 K/uL (130-400); RDW Coefficient of Variation 19.6 % (11.5-14.5); RDW Standard Deviation 57.1 fL (36.4-46.3); Red Blood Count 3.81 M/uL (4.20-5.40); White Blood Count 11.33 K/ul (4.8-10.8)
[2024-07-05 06:50] LABS: BUN Creatinine Ratio 22.3 (10-20); Calcium 9.1 mg/dl (8.6-10.3); Creatinine Clr Calc Pharmacy 66.1 ml/min
[2024-07-05] MEDS: HumuLIN-R 500 UNITS/ML VIAL SQ SCH (08:02)
--- NOTE | 2024-07-05 12:48 | Hospitalist Progress Note ---
Date of Service July 05, 2024 Assessment & Plan (1) Acute exacerbation of CHF (congestive heart failure): Plan: 73-year-old female with past medical history significant for type 2 diabetes, dyslipidemia, gastroparesis due to diabetes, COPD, obstructive sleep apnea on CPAP, chronic diastolic CHF, history of CVA, persistent atrial fibrillation, hypertension, morbid obesity, GERD, CKD stage III, bipolar 2 disorder, major depression, former smoker comes because of shortness of breath for 4 days Acute on chronic diastolic CHF Acute hypoxic respiratory failure Patient presented to the hospital with shortness of breath for [address] chest showed bilateral diffuse groundglass opacity concerning for pulmonary edema. Lung nodule seen in right upper lobe of 8 mm Last echocardiogram in April 2023 shows EF of 60 to 65%; Echo shows EF of 60-65%; severely dilated left atrium. Diuretics to IV Lasix 40 mg 3 times daily; creatinine slightly bumped up to 1.2. Monitor kidney function. Discuss with Cardiology Miller catheter placed for strict EDIL's and elevated creatinine. Daily weights A strict EDIL's Patient reports that she has not been taking torsemide for several days. Bilateral lower extremity cellulitis Empirically placed on Zosyn and doxycycline Patient is allergic to cephalosporin but seems tolerated Zosyn in the past Will monitor the response Plan to treat for 5 to 7 days. History of COPD No obvious wheezing received a dose of steroid in the ER For we will continue nebs izegih-gvj-ksieu and as needed and home inhalers and monitor Obstructive sleep apnea CPAP/BiPAP nightly Type 2 diabetes Continue home long-acting insulin Hold metformin Sliding scale Glycemic pharmacy consult History of persistent atrial fibrillation On metoprolol succinate, digoxin and Eliquis Will monitor Obesity Class III Follow up as outpatient Bipolar 2 disorder Depression On oxcarbazepine,continue Dyslipidemia On statin,continue GERD On famotidine and Protonix,continue Hypertension On metoprolol and prazosin and diuretics Will monitor DVT prophylaxis On Eliquis Disposition Telemetry Full code. Time spent evaluating patient, direct bedside care, chart review, placing orders, interpretation of diagnostic studies, discussion with consultants, patient, and family members, as well as other required patient management activities is 50 minutes Please note the above document was generated using voice recognition software. It may contain grammatical, syntax or spelling errors. Any formal questions or concerns about the content, text or information contained within the body of this dictation should be directly addressed to the provider for clarification Admission and Anticipated Discharge Date Admission Date: July 04, 2024 Subjective From so patient seen and examined at bedside. She still continues to complain of shortness of breath; bilateral pitting edema significant. Review of Systems Review of Systems: All systems reviewed & are unremarkable except as noted in Subjective Physical Exam Physical Exam: General- Not in distress Head- atraumatic Eyes- PERRL. ENT- oropharynx clear Neck- supple, no JVD. Lungs- clear to auscultation no wheezing, mild bibasilar crackles Heart- regular rhythm; no murmur, no gallop. Abdomen- normal bowel sounds, soft, nontender, no distension Extremities- b/l lower extremity edema with chronic skin changes with erythema seen. Neuro- alert, oriented PERRL, no facial palsy; no dysarthria; moves extremities Results & Data Results & Data Vital Signs (Past 12 Hours) Vital Signs Temp Pulse Pulse Resp BP Pulse Ox O2 Del Method 07/05/24 11:09 79 18 91 Nasal Cannula 07/05/24 11:02 36.4 C L 68 20 118/71 89 L Room Air 07/05/24 07:50 60 07/05/24 07:45 36.5 C 72 22 128/65 96 Room Air 07/05/24 07:06 61 14 88 L Nasal Cannula 07/05/24 03:37 66 24 90 07/05/24 03:05 36.6 C 62 18 115/63 90 CPAP O2 Flow Rate 07/05/24 11:09 1 07/05/24 11:02 07/05/24 07:50 07/05/24 07:45 07/05/24 07:06 2 07/05/24 03:37 2 07/05/24 03:05 (1) Acute exacerbation of CHF (congestive heart failure) Heart failure type: unspecified Qualified Code(s): I50.9 - Heart failure, unspecified
[2024-07-05] MEDS: traMADol HCL 50 MG TABLET PO PRN (13:20)
[2024-07-05] MEDS: FUROSEMIDE 40 MG/4 ML VIAL IV SCH (13:21)
--- NOTE | 2024-07-05 14:26 | Cardiology Progress Note ---
Date of Service July 05, 2024 Assessment & Plan (1) Acute on chronic heart failure with preserved ejection fraction (HFpEF): (2) Permanent atrial fibrillation: (3) Acute hypoxemic respiratory failure: (4) Bilateral cellulitis of lower leg: (5) Morbid obesity: (6) REENA (obstructive sleep apnea): Plan 73-year-old female admitted with acute on chronic heart failure with preserved ejection fraction due to noncompliance with diuretic therapy in the outpatient setting. Recommendations: * Titrate Lasix to 40 mg 3 times daily with potassium supplementation * Maintain negative fluid balance 2-5 L per 24 hours * Consider titration of Lasix to 60 mg twice daily pending review of urine output/fluid balance * Monitor fluid balance, daily weight, GFR, and electrolytes * Maintain serum potassium greater than 4.0, serum magnesium greater than 2.0 * Fluid restrict patient to 1.5 L daily. * Continue chronic anticoagulation with Eliquis * Continue metoprolol succinate and daily digoxin as ordered * Supplemental oxygen as needed (SaO2 >90%) with CPAP nightly Aries Mosley DO [facility] Admission and Anticipated Discharge Date Admission Date: July 04, 2024 Subjective 73-year-old female seen examined at the bedside. Moderate diuresis noted. Creatinine trending upward slightly. Rate controlled atrial fibrillation on telemetry. Denies chest pain. Notes orthopnea and dyspnea with minimal exertion. Review of Systems Review of Systems: All systems reviewed & are unremarkable except as noted in Subjective Physical Exam Constitutional: + morbidly obese; no acute distress Respiratory: no respiratory distress and no labored breathing Auscultation: + diminished lung sounds (B/L bases) and + rales (B/L); no wheezes Cardiovascular: Rate/Rhythm: + irregularly irregular Heart Sounds: normal S1 and normal S2; no murmur Vessels: + JVD Extremities: + edema (1+ pretibial with stasis changes) Gastrointestinal (Abdomen): Inspection/Auscultation: normal bowel sounds; abdomen not distended Percussion/Palpation: abdomen soft; abdomen nontender, no guarding and abdomen not rigid Neurologic: CN's II-XI intact bilaterally and moves all extremities; no focal motor deficits Results & Data Vital Signs (Past 12 Hours) Vital Signs Temp Pulse Pulse Resp BP Pulse Ox O2 Del Method 07/05/24 11:09 79 18 91 Nasal Cannula 07/05/24 11:02 36.4 C L 68 20 118/71 89 L Room Air 07/05/24 07:50 60 07/05/24 07:45 36.5 C 72 22 128/65 96 Room Air 07/05/24 07:06 61 14 88 L Nasal Cannula 07/05/24 03:37 66 24 90 07/05/24 03:05 36.6 C 62 18 115/63 90 CPAP O2 Flow Rate 07/05/24 11:09 1 07/05/24 11:02 07/05/24 07:50 07/05/24 07:45 07/05/24 07:06 2 07/05/24 03:37 2 07/05/24 03:05 Laboratory Results CBC 07/05/24 Range/Units 05:35 WBC 11.33 H (4.8-10.8) K/ul RBC 3.81 L (4.20-5.40) M/uL Hgb 9.2 L (12.0-16.0) g/dl Hct 30.7 L (37.0-47.0) % Plt Count 159 (130-400) K/uL Neut # (Auto) 6.83 H (1.40-6.50) K/uL Lymph # (Auto) 3.30 (1.20-3.40) K/uL [place]rell # (Auto) 0.94 H (0.11-0.59) K/uL Eos # (Auto) 0.12 (0.00-0.50) K/uL Baso # (Auto) 0.06 (0.00-0.20) K/uL Comprehensive Metabolic Panel 07/05/24 Range/Units 05:35 Sodium 141 (136-145) mmol/L Potassium 4.0 (3.5-5.1) mmol/L Chloride 103 (98-107) mmol/L Carbon Dioxide 31 (21-32) mmol/L BUN 27 H (6-23) mg/dl Creatinine 1.21 H D (0.6-1.2) mg/dl Glucose 145 H (70-99(Fasting)) mg/dl Calcium 9.1 (8.6-10.3) mg/dl Intake and Output 07/04/24 07/05/24 07/05/24 22:59 06:59 14:59 Intake Total 300 / 740 100 / 740 92.5 / 92.5 Output Total 575 / 1025 250 / 1025 1850 / 1850 Balance -275 / -285 -150 / -285 -1757.5 / -1757.5 Intake: IV 200 / 400 100 / 400 92.5 / 92.5 Doxycycline Hyclate 100 mg In 100 / 100 92.5 / 92.5 Dextrose 5% Mini-B 100 ml @ 50 mls/hr IV Q12H [facility] Rx#:[id number] Piperacillin/Tazobactam 4.5 gm 100 / 300 100 / 300 In 100 ml @ 25 mls/hr IV Q8H [facility] Rx#:[id number] Oral 100 / 340 Output: Urine 575 / 775 850 / 850 Urine Amount (Catheter) 250 / 250 1000 / 1000 External 250 / 250 Miller/Indwelling 1000 / 1000 Other: Weight 163.3 kg Weight Measurement Method Built in [facility]
--- NOTE | 2024-07-05 14:38 | Pharmacy Report ---
Pharmacy Glycemic Short Note 2 - Date of Service July 05, 2024 - Glycemic Short BSG Results (Last 24 hours): 07/04/24 07/04/24 07/04/24 16:36 20:25 20:27 Glucose POC Glucose 284 H 332 H* 308 H* 07/05/24 07/05/24 07/05/24 01:56 05:35 07:12 Glucose 145 H POC Glucose 195 H 185 H 07/05/24 11:18 Glucose POC Glucose 207 H OUTPATIENT ANTIDIABETIC REGIMEN: * Humulin U-500 100 units ACHS * metformin 1000mg BID * HbA1c 8.5% (07/04/24) ASSESSMENT: 07/05 * Tiffanie received 416 units of insulin yesterday (80 were Lantus, 186 bolus, and 150 were Humulin U-500) * Fasting BSG this improved with correctional insulin overnight, expect further improvement tomorrow with U-500 transition. No changes to basal regimen at this time, consider increase of U-500 if continually elevated * No carbohydrate ratio at this time, continue current correction factor. 07/04 * Tiffanie is a 73 YOF admitted with shortness of breath and a history of insulin dependent type 2 diabetes mellitus. Pharmacy has been consulted to assist with glycemic management while inpatient. She is familiar to the glycemic service from previous admissions * Initially started basal insulin at previously used dosing, MD decreased dosing this AM, plan to transition to U-500 with dinner at approx 75% home dosing. * NovoLog at previously used, very tight parameters, will remove carbohydrate ratio with addition of U-500. * She is on Zosyn and doxycycline IV currently, also received IV Solumedrol 60mg x1 yesterday evening which is likely contributing to hyperglycemia. PLAN FOR INPATIENT GLYCEMIC CONTROL: * Hold outpatient oral diabetes medications * Basal insulin * Humulin U-500 150 units SQ QDB and QDD * Bolus insulin * NovoLog per scale ACHS or Q6hrs while NPO * Goal Range: Low 120 mg/dL - High 160 mg/dL * Correction Factor: 4 mg/dL/unit * Nutritional / Prandial insulin per carb ratio of 1 unit per -- grams CHO consumed
[2024-07-05] MEDS: LEVALBUTEROL HCL 0.63 MG/3 ML NEB INH PRN (19:42)
[2024-07-05] MEDS: SIMETHICONE 80 MG CHEW PO PRN (22:54)
[2024-07-06 06:30] LABS: Basophils # (auto) 0.07 K/uL (0.00-0.20); Basophils % (auto) 0.8 %; Eosinophils # (auto) 0.26 K/uL (0.00-0.50); Eosinophils % (auto) 2.9 %; Hematocrit (blood only) 32.1 % (37.0-47.0); Hemoglobin 9.5 g/dl (12.0-16.0); Immature Granulocytes # (auto) 0.06 K/uL (0.01-0.20); Immature Granulocytes % (auto) 0.7 %; Lymphocytes # (auto) 2.67 K/uL (1.20-3.40); Lymphocytes % (auto) 29.3 %; Mean Corpuscular Hemoglobin 23.8 pg (25.0-34.0); Mean Corpuscular Hgb Conc 29.6 g/dL (32.0-36.0); Mean Corpuscular Volume 80.5 fL (80.0-100.0); Mean Platelet Volume 11.3 fL (9.4-12.4); Monocytes # (auto) 0.88 K/uL (0.11-0.59); Monocytes % (auto) 9.7 %; Neutrophils # (auto) 5.16 K/uL (1.40-6.50); Neutrophils % (auto) 56.6 %; Platelet Count 179 K/uL (130-400); RDW Coefficient of Variation 19.5 % (11.5-14.5); Red Blood Count 3.99 M/uL (4.20-5.40)
[2024-07-06 06:32] LABS: BUN Creatinine Ratio 21.7 (10-20); Creatinine Clr Calc Pharmacy 56.5 ml/min; Potassium 3.8 mmol/L (3.5-5.1)
[2024-07-06] MEDS: FUROSEMIDE 40 MG/4 ML VIAL IV SCH (08:29)
[2024-07-06] MEDS: DICLOFENAC SOD 1% GEL 100 GM TUBE EXT PRN (08:40)
[2024-07-06 09:13] LABS: Magnesium 1.4 mg/dl (1.7-2.4)
--- NOTE | 2024-07-06 10:00 | Cardiology Progress Note ---
Date of Service July 06, 2024 Assessment & Plan (1) Acute on chronic heart failure with preserved ejection fraction (HFpEF): (2) Permanent atrial fibrillation: (3) Acute hypoxemic respiratory failure: (4) Bilateral cellulitis of lower leg: (5) Morbid obesity: (6) REENA (obstructive sleep apnea): Plan 73-year-old female admitted with acute on chronic heart failure with preserved ejection fraction due to noncompliance with diuretic therapy in the outpatient setting. Recommendations: * Reduce Lasix to 40 mg IV daily. * Maintain negative fluid balance 2-5 L per 24 hours * Monitor fluid balance, daily weight, GFR, and electrolytes * Maintain serum potassium greater than 4.0, serum magnesium greater than 2.0 * Fluid restrict patient to 1.5 L daily. * Continue chronic anticoagulation with Eliquis * Continue metoprolol succinate and daily digoxin as ordered * Supplemental oxygen as needed (SaO2 >90%) with CPAP nightly Aries Mosley DO, [facility] Admission and Anticipated Discharge Date Admission Date: July 04, 2024 Subjective 73-year-old female seen examined at the bedside. IV furosemide titrated to 3 times daily dosing/04/30. 6.9 L negative fluid balance documented. Edema improved. Patient reports dyspnea is improved as well. Aries reveals rate controlled atrial fibrillation. Creatinine trending upward to 1.38. Review of Systems Review of Systems: All systems reviewed & are unremarkable except as noted in Subjective Physical Exam Constitutional: + morbidly obese; no acute distress Respiratory: no respiratory distress and no labored breathing Auscultation: + diminished lung sounds (B/L bases) and + rales (B/L); no wheezes Cardiovascular: Rate/Rhythm: + irregularly irregular Heart Sounds: normal S1 and normal S2; no murmur Vessels: + JVD Extremities: + edema (1+ pretibial with stasis changes) Gastrointestinal (Abdomen): Inspection/Auscultation: normal bowel sounds; abdomen not distended Percussion/Palpation: abdomen soft; abdomen nontender, no guarding and abdomen not rigid Neurologic: CN's II-XI intact bilaterally and moves all extremities; no focal motor deficits Results & Data Vital Signs (Past 12 Hours) Vital Signs Temp Pulse Pulse Resp BP Pulse Ox O2 Del Method 07/06/24 07:13 36.7 C 78 20 135/80 95 Nasal Cannula 07/06/24 07:10 78 20 95 Nasal Cannula 07/06/24 02:42 73 24 92 07/06/24 02:39 36.5 C 68 18 128/68 92 CPAP 07/05/24 23:14 36.4 C L 91 H 20 115/69 94 Nasal Cannula 07/05/24 23:04 72 19 92 O2 Flow Rate 07/06/24 07:13 2.0 07/06/24 07:10 2 07/06/24 02:42 1 07/06/24 02:39 07/05/24 23:14 2 07/05/24 23:04 1 Laboratory Results CBC 07/06/24 Range/Units 05:39 WBC 9.10 (4.8-10.8) K/ul RBC 3.99 L (4.20-5.40) M/uL Hgb 9.5 L (12.0-16.0) g/dl Hct 32.1 L (37.0-47.0) % Plt Count 179 (130-400) K/uL Neut # (Auto) 5.16 (1.40-6.50) K/uL Lymph # (Auto) 2.67 (1.20-3.40) K/uL [place] # (Auto) 0.88 H (0.11-0.59) K/uL Eos # (Auto) 0.26 (0.00-0.50) K/uL Baso # (Auto) 0.07 (0.00-0.20) K/uL Comprehensive Metabolic Panel 07/06/24 Range/Units 05:39 Sodium 141 (136-145) mmol/L Potassium 3.8 (3.5-5.1) mmol/L Chloride 98 (98-107) mmol/L Carbon Dioxide 36 H (21-32) mmol/L BUN 30 H (6-23) mg/dl Creatinine 1.38 H (0.6-1.2) mg/dl Glucose 120 H (70-99(Fasting)) mg/dl Calcium 9.0 (8.6-10.3) mg/dl Intake and Output 07/05/24 07/06/24 07/06/24 22:59 06:59 14:59 Intake Total 200 / 692.5 300 / 692.5 200 / 200 Output Total 1601 / 7601 4150 / 7601 Balance -1401 / -6908.5 -3850 / -6908.5 200 / 200 Intake: IV 200 / 392.5 200 / 200 Doxycycline Hyclate 100 mg In 100 / 192.5 100 / 100 Dextrose 5% Mini-B 100 ml @ 50 mls/hr IV Q12H [facility] Rx#:[id number] Piperacillin/Tazobactam 4.5 gm 100 / 200 100 / 100 In 100 ml @ 25 mls/hr IV Q8H [facility] Rx#:[id number] Oral 300 / 300 Output: Urine Amount (Catheter) 1600 / 6750 4150 / 6750 Miller/Indwelling 1600 / 6750 4150 / 6750 # Bowel Movements Other: Weight 157.3 kg Weight Measurement Method Built in [facility]
[2024-07-06] MEDS: MAGNESIUM SULFATE / D5W 1 GM/100 ML BAG IV SCH (12:59)
--- NOTE | 2024-07-06 13:50 | Pharmacy Report ---
Pharmacy Glycemic Short Note 2 - Date of Service July 06, 2024 - Glycemic Short BSG Results (Last 24 hours): 07/05/24 07/05/24 07/06/24 16:24 20:10 05:39 Glucose 120 H POC Glucose 192 H 186 H 07/06/24 07/06/24 07:13 11:23 Glucose POC Glucose 138 H 239 H OUTPATIENT ANTIDIABETIC REGIMEN: * Humulin U-500 100 units ACHS * metformin 1000mg BID * HbA1c 8.5% (07/04/24) ASSESSMENT: 07/06 * Patient received 343 units of insulin yesterday (300 units were Humulin R U- 500 and 43 units were bolus). BSGs were still above goal range yesterday ([phone]/dL). * Fasting BSG was 138mg/dL this morning. Will continue U-500 dosing as is, but if BSGs elevated through the rest of the day today, may consider increasing just the AM dose since fasting was in the goal range. * Bolus parameters to continue without change. 07/05 * Tiffanie received 416 units of insulin yesterday (80 were Lantus, 186 bolus, and 150 were Humulin U-500) * Fasting BSG this improved with correctional insulin overnight, expect further improvement tomorrow with U-500 transition. No changes to basal regimen at this time, consider increase of U-500 if continually elevated * No carbohydrate ratio at this time, continue current correction factor. 07/04 * Tiffanie is a 73 YOF admitted with shortness of breath and a history of insulin dependent type 2 diabetes mellitus. Pharmacy has been consulted to assist with glycemic management while inpatient. She is familiar to the glycemic service from previous admissions * Initially started basal insulin at previously used dosing, decreased dosing this AM, plan to transition to U-500 with dinner at approx 75% home dosing. * NovoLog at previously used, very tight parameters, will remove carbohydrate ratio with addition of U-500. * She is on Zosyn and doxycycline IV currently, also received IV Solumedrol 60mg x1 yesterday evening which is likely contributing to hyperglycemia. PLAN FOR INPATIENT GLYCEMIC CONTROL: * Hold outpatient diabetes medications * Basal insulin * Humulin R U-500 150 units SQ QDB and QDD * Bolus insulin * NovoLog per scale ACHS or Q6hrs while NPO * Goal Range: Low 120 mg/dL - High 160 mg/dL * Correction Factor: 4 mg/dL/unit * Nutritional / Prandial insulin per carb ratio of 1 unit per -- grams CHO consumed
--- NOTE | 2024-07-06 16:58 | Hospitalist Progress Note ---
Date of Service July 06, 2024 Assessment & Plan (1) Acute exacerbation of CHF (congestive heart failure): Plan: 73-year-old female with past medical history significant for type 2 diabetes, dyslipidemia, gastroparesis due to diabetes, COPD, obstructive sleep apnea on CPAP, chronic diastolic CHF, history of CVA, persistent atrial fibrillation, hypertension, morbid obesity, GERD, CKD stage III, bipolar 2 disorder, major depression, former smoker comes because of shortness of breath for 4 days Acute on chronic diastolic CHF Acute hypoxic respiratory failure Patient presented to the hospital with shortness of breath for [address] chest showed bilateral diffuse groundglass opacity concerning for pulmonary edema. Lung nodule seen in right upper lobe of 8 mm Last echocardiogram in April 2023 shows EF of 60 to 65%; Echo shows EF of 60-65%; severely dilated left atrium. Diuretics to IV Lasix 40 mg daily; creatinine slightly bumped up. Monitor kidney function. Miller catheter on for strict EDIL's and elevated creatinine. Daily weights A strict EDIL's Patient reports that she has not been taking torsemide for several days [employer] Cards on board, appreciate comanagement Bilateral lower extremity cellulitis Empirically placed on Zosyn and doxycycline Patient is allergic to cephalosporin but seems tolerated Zosyn in the past Will monitor the response Plan to treat for 5 to 7 days. History of COPD No obvious wheezing received a dose of steroid in the ER For we will continue nebs [id number] and as needed and home inhalers and monitor Obstructive sleep apnea CPAP/BiPAP nightly Type 2 diabetes Continue home long-acting insulin Hold metformin Sliding scale Glycemic pharmacy consult History of persistent atrial fibrillation On metoprolol succinate, digoxin and Eliquis Will monitor Obesity Class III Follow up as outpatient Bipolar 2 disorder Depression On oxcarbazepine,continue Dyslipidemia On statin,continue GERD On famotidine and Protonix,continue Hypertension On metoprolol and prazosin and diuretics Will monitor DVT prophylaxis On Eliquis Disposition Telemetry Full code. Please note the above document was generated using voice recognition software. It may contain grammatical, syntax or spelling errors. Any formal questions or concerns about the content, text or information contained within the body of this dictation should be directly addressed to the provider for clarification Admission and Anticipated Discharge Date Admission Date: July 04, 2024 Subjective From so patient seen and examined at bedside. She reports improvement in shortness of breath; bilateral pitting edema improving. Physical Exam Physical Exam: General- Not in distress Head- atraumatic Eyes- PERRL. ENT- oropharynx clear Neck- supple, no JVD. Lungs- clear to auscultation no wheezing, mild bibasilar crackles Heart- regular rhythm; no murmur, no gallop. Abdomen- normal bowel sounds, soft, nontender, no distension Extremities- b/l lower extremity edema with chronic skin changes with erythema seen --> improving Neuro- alert, oriented PERRL, no facial palsy; no dysarthria; moves extremities Results & Data Results & Data Vital Signs (Past 12 Hours) Vital Signs Temp Pulse Pulse Resp BP Pulse Ox O2 Del Method 07/06/24 16:13 71 07/06/24 15:54 36.4 C L 84 18 102/59 L 91 Nasal Cannula 07/06/24 15:23 67 07/06/24 14:30 84 18 95 Nasal Cannula 07/06/24 12:01 36.5 C 71 18 124/75 91 Nasal Cannula 07/06/24 11:07 85 18 92 Nasal Cannula 07/06/24 11:05 65 07/06/24 10:58 Nasal Cannula 07/06/24 07:13 36.7 C 78 20 135/80 95 Nasal Cannula 07/06/24 07:10 78 20 95 Nasal Cannula O2 Flow Rate 07/06/24 16:13 07/06/24 15:54 1.0 07/06/24 15:23 07/06/24 14:30 1 07/06/24 12:01 1.0 07/06/24 11:07 1 07/06/24 11:05 07/06/24 10:58 2 07/06/24 07:13 2.0 07/06/24 07:10 2 (1) Acute exacerbation of CHF (congestive heart failure) Heart failure type: unspecified Qualified Code(s): I50.9 - Heart failure, unspecified
[2024-07-07 06:47] LABS: BUN Creatinine Ratio 25.4 (10-20); Calcium 9.7 mg/dl (8.6-10.3); Creatinine Clr Calc Pharmacy 61.4 ml/min; Magnesium 1.9 mg/dl (1.7-2.4); Phosphorus 4.2 mg/dl (2.5-4.9); Potassium 4.1 mmol/L (3.5-5.1)
[2024-07-07 07:00] LABS: Hematocrit (blood only) 36.4 % (37.0-47.0); Hemoglobin 10.7 g/dl (12.0-16.0); Mean Corpuscular Hemoglobin 23.4 pg (25.0-34.0); Mean Corpuscular Hgb Conc 29.4 g/dL (32.0-36.0); Mean Corpuscular Volume 79.5 fL (80.0-100.0); Mean Platelet Volume 11.2 fL (9.4-12.4); Platelet Count 221 K/uL (130-400); RDW Coefficient of Variation 19.2 % (11.5-14.5); Red Blood Count 4.58 M/uL (4.20-5.40); White Blood Count 10.46 K/ul (4.8-10.8)
[2024-07-07] MEDS: HumuLIN-R 500 UNITS/ML VIAL SQ SCH (08:08)
[2024-07-07] MEDS: FUROSEMIDE 40 MG/4 ML VIAL IV SCH ×2 (08:52→17:10)
--- NOTE | 2024-07-07 12:39 | Cardiology Progress Note ---
Date of Service July 07, 2024 Assessment & Plan (1) Acute on chronic heart failure with preserved ejection fraction (HFpEF): (2) Permanent atrial fibrillation: (3) Acute hypoxemic respiratory failure: (4) Bilateral cellulitis of lower leg: (5) Morbid obesity: (6) REENA (obstructive sleep apnea): Plan 73-year-old female admitted with acute on chronic heart failure with preserved ejection fraction due to noncompliance with diuretic therapy in the outpatient setting. Recommendations: * Increase furosemide to 40 mg IV twice daily. * Maintain negative fluid balance 2-5 L per 24 hours * Monitor fluid balance, daily weight, GFR, and electrolytes * Maintain serum potassium greater than 4.0, serum magnesium greater than 2.0 * Fluid restrict patient to 1.5 L daily. * Continue chronic anticoagulation with Eliquis * Continue metoprolol succinate and daily digoxin as ordered * Supplemental oxygen as needed (SaO2 >90%) with CPAP nightly Aries Mosley DO [facility] Admission and Anticipated Discharge Date Admission Date: July 04, 2024 Subjective 73-year-old female seen examined at the bedside. Feeling better today. Dyspnea improved. Creatinine trending downward. Offers no new concerns/complaints. Review of Systems Review of Systems: All systems reviewed & are unremarkable except as noted in Subjective Physical Exam Constitutional: + morbidly obese; no acute distress Respiratory: no respiratory distress and no labored breathing Auscultation: + diminished lung sounds (B/L bases) and + rales (B/L); no wheezes Cardiovascular: Rate/Rhythm: + irregularly irregular Heart Sounds: normal S1 and normal S2; no murmur Extremities: + edema (1+ pretibial with stasis changes) Gastrointestinal (Abdomen): Inspection/Auscultation: normal bowel sounds; abdomen not distended Percussion/Palpation: abdomen soft; abdomen nontender, no guarding and abdomen not rigid Neurologic: CN's II-XI intact bilaterally and moves all extremities; no focal motor deficits Results & Data Vital Signs (Past 12 Hours) Vital Signs Temp Pulse Pulse Resp BP Pulse Ox O2 Del Method 07/07/24 11:33 74 18 95 Nasal Cannula 07/07/24 11:00 36.5 C 70 18 158/69 H 94 Nasal Cannula 07/07/24 07:52 36.4 C L 81 19 150/71 H 92 Nasal Cannula 07/07/24 06:59 80 18 92 CPAP 07/07/24 04:51 81 27 H 90 07/07/24 04:09 36.6 C 77 18 131/77 91 Room Air, CPAP O2 Flow Rate 07/07/24 11:33 4 07/07/24 11:00 07/07/24 07:52 1.0 07/07/24 06:59 2 07/07/24 04:51 2 07/07/24 04:09 Laboratory Results CBC 07/07/24 Range/Units 05:44 WBC 10.46 (4.8-10.8) K/ul RBC 4.58 (4.20-5.40) M/uL Hgb 10.7 L (12.0-16.0) g/dl Hct 36.4 L (37.0-47.0) % Plt Count 221 (130-400) K/uL Comprehensive Metabolic Panel 07/07/24 Range/Units 05:44 Sodium 138 (136-145) mmol/L Potassium 4.1 (3.5-5.1) mmol/L Chloride 96 L (98-107) mmol/L Carbon Dioxide 34 H (21-32) mmol/L BUN 32 H (6-23) mg/dl Creatinine 1.26 H (0.6-1.2) mg/dl Glucose 146 H (70-99(Fasting)) mg/dl Calcium 9.7 (8.6-10.3) mg/dl Intake and Output 07/06/24 07/07/24 07/07/24 22:59 06:59 14:59 Intake Total 754.167 / 1354.167 200 / 1354.167 200 / 200 Output Total 1701 / 2101 400 / 2101 Balance -946.833 / -746.833 -200 / -746.833 200 / 200 Intake: IV 394.167 / 794.167 200 / 200 Doxycycline Hyclate 100 mg In 100 / 200 100 / 100 Dextrose 5% Mini-B 100 ml @ 50 mls/hr IV Q12H [facility] Rx#:[id number] Magnesium Sulfate / D5w 1 gm In 194.167 / 294.167 100 ml @ 50 mls/hr IV Q2H [facility] Rx#:[id number] Piperacillin/Tazobactam 4.5 gm 100 / 300 100 / 100 In 100 ml @ 25 mls/hr IV Q8H [facility] Rx#:[id number] Oral 360 / 560 200 / 560 Output: Urine Amount (Catheter) 1700 / 2099 400 / 2100 Miller/Indwelling 1700 / 2099 400 / 2100 # Bowel Movements Other: Weight 155.4 kg Weight Measurement Method Built in [facility]
--- NOTE | 2024-07-07 14:43 | Hospitalist Progress Note ---
Date of Service July 07, 2024 Assessment & Plan (1) Acute exacerbation of CHF (congestive heart failure): Plan: 73-year-old female with past medical history significant for type 2 diabetes, dyslipidemia, gastroparesis due to diabetes, COPD, obstructive sleep apnea on CPAP, chronic diastolic CHF, history of CVA, persistent atrial fibrillation, hypertension, morbid obesity, GERD, CKD stage III, bipolar 2 disorder, major depression, former smoker comes because of shortness of breath for 4 days Acute on chronic diastolic CHF Acute hypoxic respiratory failure Patient presented to the hospital with shortness of breath for [address] chest showed bilateral diffuse groundglass opacity concerning for pulmonary edema. Lung nodule seen in right upper lobe of 8 mm Last echocardiogram in April 2023 shows EF of 60 to 65%; Echo shows EF of 60-65%; severely dilated left atrium. Diuretics to IV Lasix 40 mg twice daily; creatinine improving. Monitor kidney function. Miller catheter on for strict I&O's and elevated creatinine. Daily weights Patient reports that she has not been taking torsemide for several days [employer] Cards on board, appreciate comanagement Bilateral lower extremity cellulitis Empirically placed on Zosyn and doxycycline Patient is allergic to cephalosporin but seems tolerated Zosyn in the past Will monitor the response Plan to treat for 5 to 7 days. History of COPD No obvious wheezing received a dose of steroid in the ER For we will continue nebs [id number] and as needed and home inhalers and monitor Obstructive sleep apnea CPAP/BiPAP nightly Type 2 diabetes Continue home long-acting insulin Hold metformin Sliding scale Glycemic pharmacy consult History of persistent atrial fibrillation On metoprolol succinate, digoxin and Eliquis Will monitor Obesity Class III Follow up as outpatient Bipolar 2 disorder Depression On oxcarbazepine,continue Dyslipidemia On statin,continue GERD On famotidine and Protonix,continue Hypertension On metoprolol and prazosin and diuretics Will monitor DVT prophylaxis On Eliquis Disposition Telemetry Full code. Please note the above document was generated using voice recognition software. It may contain grammatical, syntax or spelling errors. Any formal questions or concerns about the content, text or information contained within the body of this dictation should be directly addressed to the provider for clarification Admission and Anticipated Discharge Date Admission Date: July 04, 2024 Subjective From so patient seen and examined at bedside. She reports improvement in shortness of breath; bilateral pitting edema improving. Physical Exam Physical Exam: General- Not in distress Head- atraumatic Eyes- PERRL. ENT- oropharynx clear Neck- supple, no JVD. Lungs- clear to auscultation no wheezing, mild bibasilar crackles Heart- regular rhythm; no murmur, no gallop. Abdomen- normal bowel sounds, soft, nontender, no distension Extremities- b/l lower extremity edema with chronic skin changes with erythema seen --> improving Neuro- alert, oriented PERRL, no facial palsy; no dysarthria; moves extremities Results & Data Results & Data Vital Signs (Past 12 Hours) Vital Signs Temp Pulse Pulse Resp BP Pulse Ox O2 Del Method 07/07/24 14:19 78 18 96 Nasal Cannula 07/07/24 11:33 74 18 95 Nasal Cannula 07/07/24 11:00 36.5 C 70 18 158/69 H 94 Nasal Cannula 07/07/24 07:52 36.4 C L 81 19 150/71 H 92 Nasal Cannula 07/07/24 06:59 80 18 92 CPAP 07/07/24 04:51 81 27 H 90 07/07/24 04:09 36.6 C 77 18 131/77 91 Room Air, CPAP O2 Flow Rate 07/07/24 14:19 3 07/07/24 11:33 4 07/07/24 11:00 07/07/24 07:52 1.0 07/07/24 06:59 2 07/07/24 04:51 2 07/07/24 04:09 (1) Acute exacerbation of CHF (congestive heart failure) Heart failure type: unspecified Qualified Code(s): I50.9 - Heart failure, unspecified
[2024-07-07] MEDS: DOXYCYCLINE HYCLATE 100 MG CAP PO SCH (16:41)
[2024-07-08 06:29] LABS: BUN Creatinine Ratio 22.3 (10-20); Calcium 9.4 mg/dl (8.6-10.3); Creatinine Clr Calc Pharmacy 55.7 ml/min; Magnesium 1.7 mg/dl (1.7-2.4); Potassium 3.9 mmol/L (3.5-5.1)
[2024-07-08] MEDS: MAGNESIUM SULFATE / D5W 1 GM/100 ML BAG IV SCH (09:45)
[2024-07-08] MEDS: HumuLIN-R 500 UNITS/ML VIAL SQ SCH ×2 (09:46→12:15)
--- NOTE | 2024-07-08 11:56 | Cardiology Progress Note ---
Date of Service July 08, 2024 Assessment & Plan (1) Acute on chronic heart failure with preserved ejection fraction (HFpEF): (2) Permanent atrial fibrillation: (3) Acute hypoxemic respiratory failure: (4) Bilateral cellulitis of lower leg: (5) Morbid obesity: (6) REENA (obstructive sleep apnea): Plan 73-year-old female admitted with acute on chronic heart failure with preserved ejection fraction due to noncompliance with diuretic therapy in the outpatient setting. Productive cough with green sputum concerning for URI. Recommendations: * Continue furosemide to 40 mg IV twice daily * Maintain negative fluid balance 2-5 L per 24 hours * Monitor fluid balance, daily weight, GFR, and electrolytes * Maintain serum potassium greater than 4.0, serum magnesium greater than 2.0 * Fluid restrict patient to 1.5 L daily. * Continue chronic anticoagulation with Eliquis * Continue metoprolol succinate and daily digoxin as ordered * Supplemental oxygen as needed (SaO2 >90%) with CPAP nightly * Repeat chest x-ray today Aries Mosley DO [facility] Admission and Anticipated Discharge Date Admission Date: July 04, 2024 Subjective 73-year-old female seen and examined at the bedside. Fluid balance -3.1 L overnight. Creatinine trending upward slightly. Edema improved. Telemetry reveals rate controlled atrial fibrillation. Reports green-colored sputum and intermittent cough. Currently receiving antibiotics per internal medicine for treatment of cellulitis. Review of Systems Review of Systems: All systems reviewed & are unremarkable except as noted in Subjective Physical Exam Constitutional: + morbidly obese; no acute distress Respiratory: no respiratory distress and no labored breathing Auscultation: + diminished lung sounds (B/L bases) and + rales (B/L); no wheezes Cardiovascular: Rate/Rhythm: + irregularly irregular Heart Sounds: normal S1 and normal S2; no murmur Vessels: + JVD Extremities: + edema (1+ pretibial with stasis changes) Gastrointestinal (Abdomen): Inspection/Auscultation: normal bowel sounds; abdomen not distended Percussion/Palpation: abdomen soft; abdomen nontender, no guarding and abdomen not rigid Neurologic: CN's II-XI intact bilaterally and moves all extremities; no focal motor deficits Results & Data Vital Signs (Past 12 Hours) Vital Signs Temp Pulse Pulse Resp BP BP Pulse Ox 07/08/24 11:29 76 16 94 07/08/24 10:57 07/08/24 10:49 36.3 C L 76 18 113/69 93 07/08/24 08:00 07/08/24 07:28 36.5 C 75 18 108/59 L 94 07/08/24 07:03 85 19 90 07/08/24 05:46 75 07/08/24 04:47 36.7 C 70 18 129/75 92 07/08/24 02:15 21 Pulse Ox Pulse Ox Pulse Ox O2 Del Method O2 Flow Rate O2 Flow Rate O2 Flow Rate 07/08/24 11:29 Nasal Cannula 3 07/08/24 10:57 94 94 84 L 3 3 07/08/24 10:49 Nasal Cannula 2.0 07/08/24 08:00 Nasal Cannula 3 07/08/24 07:28 Room Air 07/08/24 07:03 Room Air 07/08/24 05:46 07/08/24 04:47 Room Air 07/08/24 02:15 2 O2 Flow Rate 07/08/24 11:29 07/08/24 10:57 0 07/08/24 10:49 07/08/24 08:00 07/08/24 07:28 07/08/24 07:03 07/08/24 05:46 07/08/24 04:47 07/08/24 02:15 Laboratory Results Comprehensive Metabolic Panel 07/08/24 Range/Units 05:37 Sodium 138 (136-145) mmol/L Potassium 3.9 (3.5-5.1) mmol/L Chloride 96 L (98-107) mmol/L Carbon Dioxide 34 H (21-32) mmol/L BUN 31 H (6-23) mg/dl Creatinine 1.39 H (0.6-1.2) mg/dl Glucose 224 H (70-99(Fasting)) mg/dl Calcium 9.4 (8.6-10.3) mg/dl Intake and Output 07/07/24 07/08/24 07/08/24 22:59 06:59 14:59 Intake Total 200 / 500 100 / 500 133.333 / 133.333 Output Total 1750 / 3501 1300 / 1300 Balance -1550 / -3001 100 / -3001 -1166.667 / -1166.667 Intake: IV 200 / 500 100 / 500 93.333 / 93.333 Magnesium Sulfate / D5w 1 gm In 93.333 / 93.333 100 ml @ 50 mls/hr IV Q2H [facility] Rx#:[id number] Piperacillin/Tazobactam 4.5 gm 200 / 400 100 / 400 In 100 ml @ 25 mls/hr IV Q8H [facility] Rx#:[id number] Oral 40 / 40 Output: Urine Amount (Catheter) 1750 / 3500 1300 / 1300 Miller/Indwelling 1750 / 3500 1300 / 1300
--- NOTE | 2024-07-08 12:31 | XRay Report ---
XR chest 1V portable HISTORY: 73 years-old Female CHF possible pneumonia given for breath COMPARISON: Chest CT 07/04/2024 TECHNIQUE: AP view of the chest FINDINGS: Cardiac silhouette is enlarged. Atherosclerosis of the aorta. Emphysema with interstitial coarsening and mild patchy bibasilar opacities. Interstitial coarsening. Bones appear grossly intact. No pneumot horax. Trace pleural effusions. IMPRESSION: 1. Cardiomegaly with suggestion of mild interstitial pulmonary edema with trace pleural effusions. 2. Mild bibasilar densities favor atelectasis. A mild pneumonitis could appear similarly. ACT 112: Negative or not required by law. The above report was generated using voice recognition software. It may contain grammatical, syntax o r spelling errors. Electronically signed by: Gilbert Foster M.D. 07/08/2024 12:30 PM
--- NOTE | 2024-07-08 13:39 | Hospitalist Progress Note ---
Date of Service July 08, 2024 Assessment & Plan (1) Acute exacerbation of CHF (congestive heart failure): Plan: 73-year-old female with past medical history significant for type 2 diabetes, dyslipidemia, gastroparesis due to diabetes, COPD, obstructive sleep apnea on CPAP, chronic diastolic CHF, history of CVA, persistent atrial fibrillation, hypertension, morbid obesity, GERD, CKD stage III, bipolar 2 disorder, major depression, former smoker comes because of shortness of breath for 4 days Acute on chronic diastolic CHF Acute hypoxic respiratory failure Patient presented to the hospital with shortness of breath for [address] chest showed bilateral diffuse groundglass opacity concerning for pulmonary edema. Lung nodule seen in right upper lobe of 8 mm Last echocardiogram in April 2023 shows EF of 60 to 65%; Echo shows EF of 60-65%; severely dilated left atrium. Diuretics to IV Lasix 40 mg twice daily; creatinine slightly uptrended today. Monitor kidney function. Miller catheter on for strict I&O's and elevated cre atinine. Daily weights Patient reports that she has not been taking torsemide for several days [employer] Cards on board, appreciate comanagement Bilateral lower extremity cellulitis Empirically placed on Zosyn and doxycycline Patient is allergic to cephalosporin but seems tolerated Zosyn in the past Will monitor the response Plan to treat for 5 to 7 days. History of COPD No obvious wheezing received a dose of steroid in the ER For we will continue nebs [id number] and as needed and home inhalers and monitor Obstructive sleep apnea CPAP/BiPAP nightly Type 2 diabetes Continue home long-acting insulin Hold metformin Sliding scale Glycemic pharmacy consult History of persistent atrial fibrillation On metoprolol succinate, digoxin and Eliquis Will monitor Obesity Class III Follow up as outpatient Bipolar 2 disorder Depression On oxcarbazepine,continue Dyslipidemia On statin,continue GERD On famotidine and Protonix,continue Hypertension On metoprolol and prazosin and diuretics Will monitor DVT prophylaxis On Eliquis Disposition Telemetry Full code. Please note the above document was generated using voice recognition software. It may contain grammatical, syntax or spelling errors. Any formal questions or concerns about the content, text or information contained within the body of this dictation should be directly addressed to the provider for clarification Admission and Anticipated Discharge Date Admission Date: July 04, 2024 Subjective From so patient seen and examined at bedside. She reports improvement in shortness of breath; bilateral pitting edema improving. Physical Exam Physical Exam: General- Not in distress Head- atraumatic Eyes- PERRL. ENT- oropharynx clear Neck- supple, no JVD. Lungs- clear to auscultation no wheezing, mild bibasilar crackles Heart- regular rhythm; no murmur, no gallop. Abdomen- normal bowel sounds, soft, nontender, no distension Extremities- b/l lower extremity edema with chronic skin changes with erythema seen --> improving Neuro- alert, oriented PERRL, no facial palsy; no dysarthria; moves extremities Results & Data Results & Data Vital Signs (Past 12 Hours) Vital Signs Temp Pulse Pulse Resp BP BP Pulse Ox 07/08/24 11:29 76 16 94 07/08/24 10:57 07/08/24 10:49 36.3 C L 76 18 113/69 93 07/08/24 08:00 07/08/24 07:28 36.5 C 75 18 108/59 L 94 07/08/24 07:03 85 19 90 07/08/24 05:46 75 07/08/24 04:47 36.7 C 70 18 129/75 92 07/08/24 02:15 21 Pulse Ox Pulse Ox Pulse Ox O2 Del Method O2 Flow Rate O2 Flow Rate O2 Flow Rate 07/08/24 11:29 Nasal Cannula 3 07/08/24 10:57 94 94 84 L 3 3 07/08/24 10:49 Nasal Cannula 2.0 07/08/24 08:00 Nasal Cannula 3 07/08/24 07:28 Room Air 07/08/24 07:03 Room Air 07/08/24 05:46 07/08/24 04:47 Room Air 07/08/24 02:15 2 O2 Flow Rate 07/08/24 11:29 07/08/24 10:57 0 07/08/24 10:49 07/08/24 08:00 07/08/24 07:28 07/08/24 07:03 07/08/24 05:46 07/08/24 04:47 07/08/24 02:15 (1) Acute exacerbation of CHF (congestive heart failure) Heart failure type: unspecified Qualified Code(s): I50.9 - Heart failure, unspecified
--- NOTE | 2024-07-08 14:23 | Pharmacy Report ---
Pharmacy Glycemic Short Note 2 - Date of Service July 08, 2024 - Glycemic Short BSG Results (Last 24 hours): 07/07/24 07/07/24 07/07/24 16:16 17:59 20:32 Glucose POC Glucose 176 H 219 H 239 H 07/08/24 07/08/24 07/08/24 05:37 07:15 10:51 Glucose 224 H POC Glucose 265 H 346 H* 07/08/24 10:52 Glucose POC Glucose 331 H* OUTPATIENT ANTIDIABETIC REGIMEN: * Humulin U-500 100 units ACHS * metformin 1000mg BID * HbA1c 8.5% (07/04/24) ASSESSMENT: 07/08 * Patient received total 364 units of insulin yesterday (320 units were Humulin R U-500 and 44 units were bolus). * BSGs were [phone] mg/dl. * For better post-prandial coverage, added 80 units of U-500 insulin at lunch today to total 380 units of U-500 between all three meals. This is an 18% increase from yesterday. * Pre-lunch BSG was above 300 mg/dl since the U-500 dose was given late this AM and the pre-lunch BSG was checked only an hour later before the AM insulin dose could fully take effect. Anticipate BSGs to trend down this evening. 07/06 * Patient received 343 units of insulin yesterday (300 units were Humulin R U- 500 and 43 units were bolus). BSGs were still above goal range yesterday ([phone]/dL). * Fasting BSG was 138mg/dL this morning. Will continue U-500 dosing as is, but if BSGs elevated through the rest of the day today, may consider increasing just the AM dose since fasting was in the goal range. * Bolus parameters to continue without change. 07/05 * Tiffanie received 416 units of insulin yesterday (80 were Lantus, 186 bolus, and 150 were Humulin U-500) * Fasting BSG this improved with correctional insulin overnight, expect further improvement tomorrow with U-500 transition. No changes to basal regimen at this time, consider increase of U-500 if continually elevated * No carbohydrate ratio at this time, continue current correction factor. 07/04 * Tiffanie is a 73 YOF admitted with shortness of breath and a history of insulin dependent type 2 diabetes mellitus. Pharmacy has been consulted to assist with glycemic management while inpatient. She is familiar to the glycemic service from previous admissions * Initially started basal insulin at previously used dosing, decreased dosing this AM, plan to transition to U-500 with dinner at approx 75% home dosing. * NovoLog at previously used, very tight parameters, will remove carbohydrate ra jessy with addition of U-500. * She is on Zosyn and doxycycline IV currently, also received IV Solumedrol 60mg x1 yesterday evening which is likely contributing to hyperglycemia. PLAN FOR INPATIENT GLYCEMIC CONTROL: * Hold outpatient diabetes medications * Basal insulin * Humulin R U-500 150 units SQ with breakfast, 80 units at lunch and 150 units SQ with dinner * Bolus insulin * NovoLog per scale ACHS or Q6hrs while NPO * Goal Range: Low 120 mg/dL - High 160 mg/dL * Correction Factor: 4 mg/dL/unit * Nutritional / Prandial insulin per carb ratio of 1 unit per -- grams CHO consumed
[2024-07-08] MEDS: bisacodyL 5 MG TABEC PO PRN (17:47)
[2024-07-09] MEDS: HumuLIN-R 500 UNITS/ML VIAL SQ SCH ×2 (08:49→18:06)
[2024-07-09 08:53] LABS: BUN Creatinine Ratio 24.8 (10-20); Calcium 9.6 mg/dl (8.6-10.3); Magnesium 1.9 mg/dl (1.7-2.4); Potassium 4.1 mmol/L (3.5-5.1)
--- NOTE | 2024-07-09 12:44 | Cardiology Progress Note ---
Date of Service July 09, 2024 Assessment & Plan (1) Acute on chronic heart failure with preserved ejection fraction (HFpEF): (2) Permanent atrial fibrillation: (3) Acute hypoxemic respiratory failure: (4) Bilateral cellulitis of lower leg: (5) REENA (obstructive sleep apnea): Plan 73-year-old female admitted with acute on chronic heart failure with preserved ejection fraction due to noncompliance with diuretic therapy in the outpatient setting. - responding well to diuresis, weight trending down - continue furosemide IV 40 mg twice daily, transition to PO diuretics once euvolemic - Maintain serum potassium greater than 4.0, serum magnesium greater than 2.0 - strict I and Os, daily weights - 2 gm sodium restriction, 2 L fluid restriction - continue Eliquis, metoprolol succinate, digoxin - continue to monitor on telemetry Case discussed with attending physician, further recommendations per Dr. Newton. I spent a total of 30 minutes on the date of service in preparation, delivery, and documentation of the care provided to this patient excluding any time spent in the performance of separately billed services. This visit was a split-shared visit with the substantial portion of the decision making performed by the supervising oyster unloader/billing provider. Admission and Anticipated Discharge Date Admission Date: July 04, 2024 Supervising Physician Co-Signing Physician Notes I spent a total of 30 minutes on the date of service in preparation, delivery, and documentation of the care provided to this patient, excluding any time spent in the performance of separately billed services. I have personally performed a history and physical examination on the patient. I have reviewed the advance practitioner's documentation, and I agree with, and take responsibility for the plan of care. 73-year-old female with past medical history of chronic diastolic heart failure, permanent atrial fibrillation, septic sleep apnea, CKD, diabetes, HLD noncompliance with CHF diet and diuretics presenting with worsening shortness of breath and lower extremity edema. She states she is responding well to IV diuresis. Her renal function stable with creatinine 1.4. Echocardiogram done on 07/03/2024 showed LVEF of 60 to 65%, normal RV size and systolic function, with mild TR and mild pulmonary hypertension with pulmonary systolic pressure 44 mmHg. Volume status difficult to assess due to patient body habitus. Patient states she is improving with IV diuresis and will continue IV diuresis. Subjective 73 year old female seen today in cardiology follow up. Overall is feeling better. Denies chest pain, shortness of breath. Weight is trending down, continues to have good urine output. Review of Systems Review of Systems: CONSTITUTIONAL: No change in weight, No weakness, No fatigue and No fevers, No sweats or chills. PULMONARY: No cough, sputum, or hemoptysis, No wheezing, No shortness of breath and No recent change in breathing. CARDIOVASCULAR: No chest pain, No dyspnea on exertion, No edema, No palpitations and No syncope. GASTROINTESTINAL: No abdominal pain, No change in bowel habits, No significant heartburn, No nausea, No vomiting, No diarrhea, No constipation, No blood in stools or black tarry stools. No dysphagia. HEMATOLOGIC: No abnormal bleeding and No bruising. NEUROLOGICAL: Normal balance, No headaches and No weakness. Physical Exam Physical Exam: General: No acute distress. A+Ox3. HEENT: Normocephalic. Atraumatic. PERRL. EOMI. Conjunctiva and sclera clear. NECK: No carotid bruits. No JVD. Carotid upstrokes are brisk. Heart: Irregularly irregular. S1 and S2 noted. No murmur. No rubs or gallops. PMI non displaced. Lungs: Clear to auscultation. No wheezes. No rhonchi. No rales. Abdomen: Normal bowel sounds. Soft. Nontender. No masses or organomegaly. No abdominal bruits. Extremities: No edema. No clubbing or cyanosis. Pulses: radial=2/4, posterior tibial=2/4, dorsalis pedis = 2/4. NEURO: No focal deficits. PSYCH: Appropriate affect and insight. Results & Data Vital Signs (Past 12 Hours) Vital Signs Temp Pulse Pulse Resp BP BP Pulse Ox 07/09/24 11:11 18 94 07/09/24 10:41 36.8 C 70 18 122/61 94 07/09/24 07:24 18 93 07/09/24 07:03 36.6 C 79 18 136/72 93 07/09/24 03:20 83 21 95 07/09/24 02:52 36.7 C 72 16 117/67 95 O2 Del Method O2 Flow Rate 07/09/24 11:11 Nasal Cannula 3 07/09/24 10:41 Nasal Cannula 3.0 07/09/24 07:24 Nasal Cannula 3 07/09/24 07:03 Nasal Cannula 3.0 07/09/24 03:20 2 07/09/24 02:52 Nasal Cannula 2 Laboratory Results Comprehensive Metabolic Panel 07/09/24 Range/Units 08:07 Sodium 138 (136-145) mmol/L Potassium 4.1 (3.5-5.1) mmol/L Chloride 94 L (98-107) mmol/L Carbon Dioxide 38 H (21-32) mmol/L BUN 35 H (6-23) mg/dl Creatinine 1.41 H (0.6-1.2) mg/dl Glucose 247 H (70-99(Fasting)) mg/dl Calcium 9.6 (8.6-10.3) mg/dl Intake and Output 07/08/24 07/09/24 07/09/24 22:59 06:59 14:59 Intake Total 900 / 1483.333 250 / 1483.333 Output Total 2049 350 / 3700 Balance -1150 / -2216.667 -100 / -2216.667 Intake: IV 100 / 493.333 100 / 493.333 Piperacillin/Tazobactam 4.5 gm 100 / 300 100 / 300 In 100 ml @ 25 mls/hr IV Q8H [facility] Rx#:[id number] Oral 800 / 990 150 / 990 Output: Urine Amount (Catheter) 2049 350 / 3700 Miller/Indwelling 2049 350 / 3700 Other: Weight 151.7 kg Weight Measurement Method Built in [facility] Diagnostic Findings Telemetry with afib in the 80s
--- NOTE | 2024-07-09 15:06 | Pharmacy Report ---
Pharmacy Glycemic Short Note 2 - Date of Service July 09, 2024 - Glycemic Short BSG Results (Last 24 hours): 07/08/24 07/08/24 07/09/24 16:32 20:20 07:01 Glucose POC Glucose 198 H 178 H 226 H 07/09/24 07/09/24 08:07 11:24 Glucose 247 H POC Glucose 283 H OUTPATIENT ANTIDIABETIC REGIMEN: * Humulin U-500 100 units ACHS * metformin 1000mg BID * HbA1c 8.5% (07/04/24) ASSESSMENT: 07/09 * Tiffanie received 465 units of insulin yesterday (380 were basal as U-500, 85 were bolus) * Fasting BSG this AM elevated, will increase Humulin U-500 to approximately yesterday's insulin total to hopefully avoid the need for as much bolus correctional. This is an 18% over yesterday's dosage and 12% above home dosing regimen (some room for adjustment with A1c at 8.5%). No changes to NovoLog at this time. Will monitor trends daily to adjust dosage if needed. * She continues on Zosyn, no other glycemic stressors noted at this time. 07/08 * Patient received total 364 units of insulin yesterday (320 units were Humulin R U-500 and 44 units were bolus). * BSGs were [phone] mg/dl. * For better post-prandial coverage, added 80 units of U-500 insulin at lunch today to total 380 units of U-500 between all three meals. This is an 18% increase from yesterday. * Pre-lunch BSG was above 300 mg/dl since the U-500 dose was given late this AM and the pre-lunch BSG was checked only an hour later before the AM insulin dose could fully take effect. Anticipate BSGs to trend down this evening. 07/06 * Patient received 343 units of insulin yesterday (300 units were Humulin R U- 500 and 43 units were bolus). BSGs were still above goal range yesterday ([phone]/dL). * Fasting BSG was 138mg/dL this morning. Will continue U-500 dosing as is, but if BSGs elevated through the rest of the day today, may consider increasing just the AM dose since fasting was in the goal range. * Bolus parameters to continue without change. 07/05 * Tiffanie received 416 units of insulin yesterday (80 were Lantus, 186 bolus, and 150 were Humulin U-500) * Fasting BSG this improved with correctional insulin overnight, expect further improvement tomorrow with U-500 transition. No changes to basal regimen at this time, consider increase of U-500 if continually elevated * No carbohydrate ratio at this time, continue current correction factor. 07/04 * Tiffanie is a 73 YOF admitted with shortness of breath and a history of insulin dependent type 2 diabetes mellitus. Pharmacy has been consulted to assist with glycemic management while inpatient. She is familiar to the glycemic service from previous admissions * Initially started basal insulin at previously used dosing, decreased dosing this AM, plan to transition to U-500 with dinner at approx 75% home dosing. * NovoLog at previously used, very tight parameters, will remove carbohydrate ratio with addition of U-500. * She is on Zosyn and doxycycline IV currently, also received IV Solumedrol 60mg x1 yesterday evening which is likely contributing to hyperglycemia. PLAN FOR INPATIENT GLYCEMIC CONTROL: * Hold outpatient diabetes medications * Basal insulin * Humulin R U-500 250 units SQ QDB * Humulin R U-500 200 units SQ QDD * Bolus insulin * NovoLog per scale ACHS or Q6hrs while NPO * Goal Range: Low 120 mg/dL - High 160 mg/dL * Correction Factor: 4 mg/dL/unit * Nutritional / Prandial insulin per carb ratio of 1 unit per -- grams CHO consumed
--- NOTE | 2024-07-09 15:46 | Hospitalist Progress Note ---
Date of Service July 09, 2024 Assessment & Plan (1) Acute exacerbation of CHF (congestive heart failure): Plan: 73-year-old female with past medical history significant for type 2 diabetes, dyslipidemia, gastroparesis due to diabetes, COPD, obstructive sleep apnea on CPAP, chronic diastolic CHF, history of CVA, persistent atrial fibrillation, hypertension, morbid obesity, GERD, CKD stage III, bipolar 2 disorder, major depression, former smoker comes because of shortness of breath for 4 days Acute on chronic diastolic CHF Acute hypoxic respiratory failure Patient presented to the hospital with shortness of breath for [address] chest showed bilateral diffuse groundglass opacity concerning for pulmonary edema. Lung nodule seen in right upper lobe of 8 mm Last echocardiogram in April 2023 shows EF of 60 to 65%; Echo shows EF of 60-65%; severely dilated left atrium. Diuretics to IV Lasix 40 mg twice daily; creatinine up around 1.4. Monitor kidney function. Miller catheter on for strict I&O's and elevated creatinine. 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 History of COPD No obvious wheezing received a dose of steroid in the ER For we will continue nebs [id number] and as needed and home inhalers and monitor Obstructive sleep apnea CPAP/BiPAP nightly Type 2 diabetes Continue home long-acting insulin Hold metformin Sliding scale Glycemic pharmacy consult History of persistent atrial fibrillation On metoprolol succinate, digoxin and Eliquis Will monitor Obesity Class III Follow up as outpatient Bipolar 2 disorder Depression On oxcarbazepine,continue Dyslipidemia On statin,continue GERD On famotidine and Protonix,continue Hypertension On metoprolol and prazosin and diuretics Will monitor DVT prophylaxis On Eliquis Disposition Telemetry Full code. Please note the above document was generated using voice recognition software. It may contain grammatical, syntax or spelling errors. Any formal questions or concerns about the content, text or information contained within the body of this dictation should be directly addressed to the provider for clarification Admission and Anticipated Discharge Date Admission Date: July 04, 2024 Subjective From so patient seen and examined at bedside. She reports improvement in shortness of breath; bilateral pitting edema improving. Physical Exam Physical Exam: General- Not in distress Head- atraumatic Eyes- PERRL. ENT- oropharynx clear Neck- supple, no JVD. Lungs- clear to auscultation no wheezing, mild bibasilar crackles Heart- regular rhythm; no murmur, no gallop. Abdomen- normal bowel sounds, soft, nontender, no distension Extremities- b/l lower extremity edema with chronic skin changes with erythema seen --> improving Neuro- alert, oriented PERRL, no facial palsy; no dysarthria; moves extremities Results & Data Results & Data Vital Signs (Past 12 Hours) Vital Signs Temp Pulse Pulse Pulse Resp BP Pulse Ox 07/09/24 15:07 96 H 07/09/24 15:06 96 H 07/09/24 14:40 36.4 C L 86 18 138/76 93 07/09/24 13:03 76 07/09/24 13:03 07/09/24 11:11 18 94 07/09/24 10:41 36.8 C 70 18 122/61 94 07/09/24 07:24 18 93 07/09/24 07:03 36.6 C 79 18 136/72 93 O2 Del Method O2 Flow Rate 07/09/24 15:07 07/09/24 15:06 07/09/24 14:40 Nasal Cannula 3.0 07/09/24 13:03 07/09/24 13:03 Nasal Cannula 3 07/09/24 11:11 Nasal Cannula 3 07/09/24 10:41 Nasal Cannula 3.0 07/09/24 07:24 Nasal Cannula 3 07/09/24 07:03 Nasal Cannula 3.0 (1) Acute exacerbation of CHF (congestive heart failure) Heart failure type: unspecified Qualified Code(s): I50.9 - Heart failure, unspecified
[2024-07-10 10:04] LABS: BUN Creatinine Ratio 30.5 (10-20); Calcium 9.5 mg/dl (8.6-10.3); Creatinine Clr Calc Pharmacy 70.3 ml/min; Magnesium 1.7 mg/dl (1.7-2.4)
--- NOTE | 2024-07-10 12:28 | Cardiology Progress Note ---
Date of Service July 10, 2024 Assessment & Plan (1) Acute on chronic heart failure with preserved ejection fraction (HFpEF): (2) Permanent atrial fibrillation: (3) Acute hypoxemic respiratory failure: (4) Bilateral cellulitis of lower leg: (5) REENA (obstructive sleep apnea): Plan 73-year-old female admitted with acute on chronic heart failure with preserved ejection fraction due to noncompliance with diuretic therapy in the outpatient setting. - responding well to diuresis, weight trending down - continue furosemide IV 40 mg twice daily, transition to PO diuretics once euvolemic - Maintain serum potassium greater than 4.0, serum magnesium greater than 2.0 - strict I and Os, daily weights - 2 gm sodium restriction, 2 L fluid restriction - continue Eliquis, metoprolol succinate, digoxin - continue to monitor on telemetry Case discussed with attending physician, further recommendations per Dr. Newton. I spent a total of 25 minutes on the date of service in preparation, delivery, and documentation of the care provided to this patient excluding any time spent in the performance of separately billed services. This visit was a split-shared visit with the substantial portion of the decision making performed by the supervising recreation programmer/billing provider. Admission and Anticipated Discharge Date Admission Date: July 04, 2024 Supervising Physician Co-Signing Physician Notes I spent a total of 30 minutes on the date of service in preparation, delivery, and documentation of the care provided to this patient, excluding any time spent in the performance of separately billed services. I have personally performed a history and physical examination on the patient. I have reviewed the advance practitioner's documentation, and I agree with, and take responsibility for the plan of care. 73-year-old female with past medical history of chronic diastolic heart failure, permanent atrial fibrillation, septic sleep apnea, CKD, diabetes, HLD noncompliance with CHF diet and diuretics presenting with worsening shortness of breath and lower extremity edema. She states she is responding well to IV diuresis. Her renal function stable with creatinine 1.4. Echocardiogram done on 07/03/2024 showed LVEF of 60 to 65%, normal RV size and systolic function, with mild TR and mild pulmonary hypertension with pulmonary systolic pressure 44 mmHg. Volume status difficult to assess due to patient body habitus. Patient states she is improving with IV diuresis and will continue IV diuresis. Subjective 73 year old female was seen today in cardiology follow up. Overall feels well, but does not feel she is at her baseline. Denies chest pain, shortness of breath. Weight trending down. Review of Systems Review of Systems: CONSTITUTIONAL: No change in weight, No weakness, No fatigue and No fevers, No sweats or chills. PULMONARY: No cough, sputum, or hemoptysis, No wheezing, No shortness of breath and No recent change in breathing. CARDIOVASCULAR: No chest pain, No dyspnea on exertion, No edema, No palpitations and No syncope. GASTROINTESTINAL: No abdominal pain, No change in bowel habits, No significant heartburn, No nausea, No vomiting, No diarrhea, No constipation, No blood in stools or black tarry stools. No dysphagia. HEMATOLOGIC: No abnormal bleeding and No bruising. NEUROLOGICAL: Normal balance, No headaches and No weakness. Physical Exam Physical Exam: General: No acute distress. A+Ox3. HEENT: Normocephalic. Atraumatic. PERRL. EOMI. Conjunctiva and sclera clear. NECK: No carotid bruits. No JVD. Carotid upstrokes are brisk. Heart: RRR. S1 and S2 noted. No murmur. No rubs or gallops. PMI non displaced. Lungs: Clear to auscultation. No wheezes. No rhonchi. No rales. Abdomen: Normal bowel sounds. Soft. Nontender. No masses or organomegaly. No abdominal bruits. Extremities: No edema. No clubbing or cyanosis. Pulses: radial=2/4, posterior tibial=2/4, dorsalis pedis = 2/4. NEURO: No focal deficits. PSYCH: Appropriate affect and insight. Results & Data Vital Signs (Past 12 Hours) Vital Signs Temp Pulse Resp BP BP Pulse Ox O2 Del Method 07/10/24 11:15 36.5 C 70 18 117/71 91 Nasal Cannula 07/10/24 07:55 36.5 C 88 18 129/73 91 Nasal Cannula 07/10/24 03:07 26 H 95 07/10/24 02:30 36.7 C 72 16 119/77 95 CPAP O2 Flow Rate 07/10/24 11:15 3.0 07/10/24 07:55 3.0 07/10/24 03:07 2 07/10/24 02:30 Laboratory Results Comprehensive Metabolic Panel 07/10/24 Range/Units 08:44 Sodium 138 (136-145) mmol/L Potassium 4.0 (3.5-5.1) mmol/L Chloride 96 L (98-107) mmol/L Carbon Dioxide 35 H (21-32) mmol/L BUN 32 H (6-23) mg/dl Creatinine 1.05 D (0.6-1.2) mg/dl Glucose 314 H* (70-99(Fasting)) mg/dl Calcium 9.5 (8.6-10.3) mg/dl Intake and Output 07/09/24 07/10/24 07/10/24 22:59 06:59 14:59 Intake Total 800 / 1300 400 / 1300 Output Total 2650 / 3150 500 / 3150 Balance -1850 / -1850 -100 / -1850 Intake: IV 100 / 300 100 / 300 Piperacillin/Tazobactam 4.5 gm 100 / 300 100 / 300 In 100 ml @ 25 mls/hr IV Q8H [facility] Rx#:[id number] Oral 700 / 1000 300 / 1000 Output: Urine Amount (Catheter) 2650 / 3150 500 / 3150 Miller/Indwelling 2650 / 3150 500 / 3150 Other: Weight 144.5 kg Weight Measurement Method Standing Scale Diagnostic Findings Telemetry with afib in 80s
--- NOTE | 2024-07-10 14:05 | Hospitalist Progress Note ---
Date of Service July 10, 2024 Assessment & Plan (1) Acute exacerbation of CHF (congestive heart failure): Plan: 73-year-old female with past medical history significant for type 2 diabetes, dyslipidemia, gastroparesis due to diabetes, COPD, obstructive sleep apnea on CPAP, chronic diastolic CHF, history of CVA, persistent atrial fibrillation, hypertension, morbid obesity, GERD, CKD stage III, bipolar 2 disorder, major depression, former smoker comes because of shortness of breath for 4 days Acute on chronic diastolic CHF Acute hypoxic respiratory failure Patient presented to the hospital with shortness of breath for [address] chest showed bilateral diffuse groundglass opacity concerning for pulmonary edema. Lung nodule seen in right upper lobe of 8 mm Last echocardiogram in April 2023 shows EF of 60 to 65%; Echo shows EF of 60-65%; severely dilated left atrium. Diuretics to IV Lasix 40 mg twice daily; creatinine up around 1.4. Monitor kidney function. Miller catheter on for strict I&O's and elevated creatinine. 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 . Plan to treat for 5 to 7 days. will complete atb jeffy. History of COPD: No obvious wheezing, continue nebs [id number] and as needed and home inhalers and monitor Obstructive sleep apnea: CPAP/BiPAP nightly Type 2 diabetes: Continue home long-acting insulin. Hold metformin. Sliding scale. Glycemic pharmacy consult. f/u diabetic clinic on dc. History of persistent atrial fibrillation: On metoprolol succinate, digoxin and Eliquis. Will monitor Obesity Class III: Follow up as outpatient Bipolar 2 disorder, Depression: On oxcarbazepine,continue Dyslipidemia: On statin,continue GERD: On famotidine and Protonix,continue Hypertension: On metoprolol and prazosin and diuretics. Will monitor DVT prophylaxis: On Eliquis Disposition: Telemetry Full code. Please note the above document was generated using voice recognition software. It may contain grammatical, syntax or spelling errors. Any formal questions or concerns about the content, text or information contained within the body of this dictation should be directly addressed to the provider for clarification Admission and Anticipated Discharge Date Admission Date: July 04, 2024 Subjective From so patient seen and examined at bedside. She reports improvement in shortness of breath; bilateral pitting edema improving. Offers no new complaints. Physical Exam Physical Exam: General- Not in distress Head- atraumatic Eyes- PERRL. ENT- oropharynx clear Neck- supple, no JVD. Lungs- clear to auscultation no wheezing, mild bibasilar crackles Heart- regular rhythm; no murmur, no gallop. Abdomen- normal bowel sounds, soft, nontender, no distension Extremities- b/l lower extremity edema with chronic skin changes with erythema seen --> improving Neuro- alert, oriented PERRL, no facial palsy; no dysarthria; moves extremities Results & Data Results & Data Vital Signs (Past 12 Hours) Vital Signs Temp Pulse Resp BP BP Pulse Ox O2 Del Method 07/10/24 11:15 36.5 C 70 18 117/71 91 Nasal Cannula 07/10/24 07:55 36.5 C 88 18 129/73 91 Nasal Cannula 07/10/24 03:07 26 H 95 07/10/24 02:30 36.7 C 72 16 119/77 95 CPAP O2 Flow Rate 07/10/24 11:15 3.0 07/10/24 07:55 3.0 07/10/24 03:07 2 07/10/24 02:30 (1) Acute exacerbation of CHF (congestive heart failure) Heart failure type: unspecified Qualified Code(s): I50.9 - Heart failure, unspecified
[2024-07-10] MEDS: MAGNESIUM SULFATE / D5W 1 GM/100 ML BAG IV SCH (15:03)
[2024-07-11 06:54] LABS: Calcium 9.4 mg/dl (8.6-10.3); Magnesium 1.9 mg/dl (1.7-2.4)
[2024-07-11 06:59] LABS: BUN Creatinine Ratio 27.3 (10-20); Creatinine Clr Calc Pharmacy 52.4 ml/min
[2024-07-11] MEDS: INSULIN HUMAN NPH SC SCH ×2 (08:38→17:10)
[2024-07-11] MEDS: INSULIN HUMAN REGULAR PER UNIT 10 UNITS in SYRINGE 9.9 ML IV ONE ×2 (08:38→12:03)
--- NOTE | 2024-07-11 10:50 | Cardiology Progress Note ---
Date of Service July 11, 2024 Assessment & Plan (1) Acute on chronic heart failure with preserved ejection fraction (HFpEF): (2) Permanent atrial fibrillation: (3) Acute hypoxemic respiratory failure: (4) Bilateral cellulitis of lower leg: (5) REENA (obstructive sleep apnea): Plan 73-year-old female admitted with acute on chronic heart failure with preserved ejection fraction due to noncompliance with diuretic therapy in the outpatient setting. 07/10/24 - responding well to diuresis, weight trending down - continue furosemide IV 40 mg twice daily, transition to PO diuretics once euvolemic - Maintain serum potassium greater than 4.0, serum magnesium greater than 2.0 - strict I and Os, daily weights - 2 gm sodium restriction, 2 L fluid restriction - continue Eliquis, metoprolol succinate, digoxin - continue to monitor on telemetry 07/11/24: -Ongoing diuresis noted. -Weight trending downward. Daily weight with standing scale recommended -Monitor I+O's -Mild rise in creatinine today to 1.39, (was 1.05 yesterday) but this is similar to earlier this admission. Will monitor -Continue furosemide 40 mg IV BID today. -Try to wean oxygen as tolerated -Continue all other cardiac meds - Eliquis, metoprolol, digoxin Case discussed with Dr. Villanueva. I spent a total of 25 minutes on the date of service in preparation, delivery, and documentation of the care provided to this patient excluding any time spent in the performance of separately billed services. This visit was a split-shared visit with the substantial portion of the decision making performed by the supervising safemaker/billing provider. Admission and Anticipated Discharge Date Admission Date: July 04, 2024 Supervising Physician Co-Signing Physician Notes Patient seen personally and physically examined. Care and management discussed with advanced provider as above. Personally endorsed Responding to IV diuretics but still with significant volume overload Plan as above. Continue IV furosemide Add spironolactone 12.5 mg daily beginning today I spent a total of 20 minutes on the date of service in preparation, delivery, and documentation of the care provided to this patient excluding any time spent in the performance of separately billed services. Subjective Patient resting in chair. Reports continued improvement in her dyspnea/volume status. Still requiring supplemental O2. Weight trending downward. Good urine outputs. She voices no acute complaints but reports continued improvement and progress each day with IV diuretics Review of Systems Review of Systems: All systems reviewed & are unremarkable except as noted in HPI & below Physical Exam Constitutional: + morbidly obese; no acute distress Respiratory: no respiratory distress and no labored breathing Auscultation: + diminished lung sounds (B/L bases) and + rales (B/L); no wheezes Cardiovascular: Rate/Rhythm: + irregularly irregular Heart Sounds: normal S1 and normal S2; no murmur Vessels: + JVD Extremities: + edema (1+ pretibial with stasis changes) Gastrointestinal (Abdomen): Inspection/Auscultation: normal bowel sounds; abdomen not distended Percussion/Palpation: abdomen soft; abdomen nontender, no guarding and abdomen not rigid Neurologic: CN's II-XI intact bilaterally and moves all extremities; no focal motor deficits Results & Data Vital Signs (Past 12 Hours) Vital Signs Temp Pulse Pulse Resp BP Pulse Ox O2 Del Method 07/11/24 07:49 36.7 C 82 18 122/74 93 Nasal Cannula 07/11/24 03:00 36.8 C 81 16 108/70 94 CPAP 07/11/24 02:41 75 22 96 07/11/24 00:30 85 27 H 95 O2 Flow Rate 07/11/24 07:49 2 07/11/24 03:00 07/11/24 02:41 2 07/11/24 00:30 2 Laboratory Results Comprehensive Metabolic Panel 07/11/24 Range/Units 06:10 Sodium 138 (136-145) mmol/L Potassium 4.0 (3.5-5.1) mmol/L Chloride 95 L (98-107) mmol/L Carbon Dioxide 36 H (21-32) mmol/L BUN 38 H (6-23) mg/dl Creatinine 1.39 H D (0.6-1.2) mg/dl Glucose 269 H (70-99(Fasting)) mg/dl Calcium 9.4 (8.6-10.3) mg/dl Intake and Output 07/10/24 07/11/24 07/11/24 22:59 06:59 14:59 Intake Total 764 / 1324 100 / 1324 Output Total 1600 / 2750 Balance -836 / -1426 100 / -1426 Intake: IV 300 / 500 100 / 500 Magnesium Sulfate / D5w 1 gm In 200 / 200 100 ml @ 50 mls/hr IV Q2H [facility] Rx#:[id number] Piperacillin/Tazobactam 4.5 gm 100 / 300 100 / 300 In 100 ml @ 25 mls/hr IV Q8H [facility] Rx#:[id number] Oral 464 / 824 Output: Urine Amount (Catheter) 1600 / 2750 Miller/Indwelling 1600 / 2750 Other: Weight 141.6 kg Weight Measurement Method Standing Scale Diagnostic Findings Telemetry reviewed: Afib with controlled rates in the 60-70s Medications Administered Current Inpatient Medications Acetaminophen (Acetaminophen 325 Mg Tab) 650 mg PO Q4H PRN PRN Reason: Pain rating 1-5 or Fever Stop: 08/03/24 02:40 Acetaminophen (Acetaminophen 325 Mg Tab) 650 mg PO BID [facility] Stop: 08/03/24 08:59 Last Admin: 07/11/24 09:32 Dose: 650 mg Apixaban (Apixaban 5 Mg Tablet) 5 mg PO BID [facility] Stop: 08/03/24 10:59 Last Admin: 07/11/24 09:30 Dose: 5 mg Atorvastatin Calcium (Atorvastatin 40 Mg Tab) [facility] [place] [place] Stop: 08/03/24 08:59 Last Admin: 07/11/24 09:29 Dose: 40 mg Bisacodyl (Bisacodyl 5 Mg Tabec) 5 mg PO DAILY PRN PRN Reason: constipation Stop: 08/03/24 02:40 Last Admin: 07/08/24 17:47 Dose: 5 mg Dextrose (Dextrose 50% 50 Ml Syringe) 25 - 50 ml IV UD PRN; Protocol PRN Reason: Hypoglycemia Protocol Stop: 08/03/24 02:40 Diclofenac Sodium (Diclofenac Sod 1% Gel 100 Gm Tube) 2 gm EXT BID PRN; Protocol PRN Reason: PAINFUL JOINTS Stop: 08/03/24 02:40 Last Admin: 07/10/24 22:23 Dose: 2 gm Digoxin (Digoxin 0.125 Mg Tab) 0.125 mg PO DAILY@1600 [facility] Stop: 08/03/24 15:59 Last Admin: 07/10/24 15:08 Dose: 0.125 mg Famotidine (Famotidine 20 Mg Tab) 20 mg PO QAM [facility] Stop: 08/03/24 08:59 Last Admin: 07/11/24 09:31 Dose: 20 mg Fluticasone Furoate (Fluticasone Furoate 100mcg 14 Puffs/Inhaler) 1 puffs INH DAILY GARIMA Stop: 08/03/24 08:59 Last Admin: 07/11/24 09:28 Dose: 1 puffs Fluticasone Propionate (Fluticasone Propionate Na Spr 16 Gm Btl) 2 sprays ANIBAL DAILY GARIMA Stop: 08/03/24 08:59 Last Admin: 07/11/24 09:32 Dose: Not Given Folic Acid (Folic Acid 400 Mcg Tab) 400 mcg PO QAM [facility] Stop: 08/03/24 08:59 Last Admin: 07/11/24 09:29 Dose: 400 mcg Furosemide (Furosemide 40 Mg/4 Ml Vial) 40 mg IV BID17 GARIMA Stop: 08/06/24 16:59 Last Admin: 07/11/24 09:31 Dose: 40 mg Glucagon (Glucagon For Inj 1 Mg Vial) 1 mg SQ UD PRN; Protocol PRN Reason: Hypoglycemia Protocol Stop: 08/03/24 02:40 Glucose (Glucose 40% Gel 15 Gm Tube) 15 - 30 gm PO UD PRN; Protocol PRN Reason: Hypoglycemia Protocol Stop: 08/03/24 02:40 Glucose (Glucose 10 Tab/Tube) 4 - 8 tab PO UD PRN; Protocol PRN Reason: Hypoglycemia Protocol Stop: 08/03/24 02:40 Guaifenesin (Guaifenesin 600 Mg Tabcr) 600 mg PO DAILY PRN PRN Reason: Congestion Stop: 08/03/24 02:40 Last Admin: 07/11/24 09:30 Dose: 600 mg Insulin Aspart (Insulin Aspart Per Unit Charge) 0 units SC ACHS [facility] Stop: 08/03/24 16:29 Last Admin: 07/11/24 08:37 Dose: 97 units Insulin Human NPH (Insulin Human Nph) 75 units SC TODAY@0800,0801 GARIMA Stop: 08/10/24 07:59 Last Admin: 07/11/24 08:45 Dose: 75 units Ipratropium [place] (Ipratropium [place] Nasal [place] 0.03% 30 Ml) 2 sprays NA BID [facility] Stop: 08/03/24 08:59 Last Admin: 07/11/24 09:28 Dose: 2 sprays Lactobacillus Acidophilus (Advanced Probiotic 625 Mg Capsule) 625 mg PO BID [facility] Stop: 08/03/24 08:59 Last Admin: 07/11/24 09:29 Dose: 625 mg Levalbuterol HCl (Levalbuterol Hcl 0.63 Mg/3 Ml Neb) 0.63 mg INH Q4 PRN; Protocol PRN Reason: Wheezing Stop: 08/03/24 02:40 Last Admin: 07/06/24 21:42 Dose: 0.63 mg Levalbuterol HCl (Levalbuterol Tartrate 15 Gm Hfa.Aer.Ad) 2 puffs INH Q6H PRN PRN Reason: wheezing Stop: 08/03/24 02:40 Loratadine (Loratadine 10 Mg Tab) 10 mg PO DAILY GARIMA Stop: 08/03/24 08:59 Last Admin: 07/11/24 09:29 Dose: 10 mg Magnesium Oxide (Magnesium Oxide 400 Mg Tab) 400 mg PO QAM G[facility]IM[facility] Stop: 08/03/24 08:59 Last Admin: 07/11/24 09:30 Dose: 400 mg Metoprolol Succinate (Metoprolol Succ 50mg Ext Rel Tab) 100 mg PO BID G[facility]IMA Stop: 08/03/24 08:59 Last Admin: 07/11/24 09:29 Dose: 100 mg Miscellaneous (Carbohydrates For Hypoglycemia ) 15 - 30 gm PO UD PRN PRN Reason: Hypoglycemia Protocol Stop: 08/03/24 02:40 Miscellaneous Information (Pharmacy Glycemic Mgmt Consult) 1 each N/A UD PRN PRN Reason: Consult Stop: 08/03/24 02:40 Montelukast Sodium (Montelukast Sodium 10 Mg Tablet) 10 mg PO QAM [facility] Stop: 08/03/24 08:59 Last Admin: 07/11/24 09:29 Dose: 10 mg Multivitamins/Minerals (Cerovite Adv Formula Tab) 1 tab PO HS [facility] Stop: 08/03/24 20:59 Last Admin: 07/10/24 20:53 Dose: 1 tab Nitroglycerin (Nitroglycerin Sl 0.4 Mg/Tab Tab) 0.4 mg SL Q5M PRN PRN Reason: Chest Pain Stop: 08/03/24 02:40 Oxcarbazepine (Oxcarbazepine 150 Mg Tablet) 150 mg PO DAILY GARIMA Stop: 08/03/24 08:59 Last Admin: 07/11/24 09:30 Dose: 150 mg Pantoprazole Sodium (Pantoprazole 40 Mg Tab) 40 mg PO QAM [facility] Stop: 08/03/24 08:59 Last Admin: 07/11/24 09:31 Dose: 40 mg Polyethylene Glycol (Polyethylene (Miralax) 17 Gm Pack) 17 gm PO DAILY PRN PRN Reason: Constipation Stop: 08/03/24 02:40 Potassium Citrate (Potassium Citrate 10 Meq Tab) 10 meq PO BID G[facility]IM[facility] Stop: 08/03/24 08:59 Last Admin: 07/11/24 09:29 Dose: 10 meq Prazosin HCl (Prazosin Hcl 1 Mg Cap) 1 mg PO HS GARIMA Stop: 08/03/24 20:59 Last Admin: 07/10/24 20:54 Dose: 1 mg Pregabalin (Pregabalin 50 Mg Cap) 50 mg PO TID [facility]IM[facility] Stop: 08/03/24 08:59 Last Admin: 07/11/24 09:31 Dose: 50 mg Simethicone (Simethicone 80 Mg Chew) 80 mg PO Q6H PRN PRN Reason: Gas or Constipation Stop: 08/04/24 22:12 Last Admin: 07/08/24 17:47 Dose: 80 mg Sucralfate (Sucralfate 1 Gm Tab) 1 gm PO QID PRN PRN Reason: ACID REFLUX/UPSET STOMACH Stop: 08/03/24 02:40 Last Admin: 07/11/24 09:30 Dose: 1 gm Tamsulosin HCl (Tamsulosin Hcl 0.4 Mg Cap) 0.4 mg PO QAM [facility] Stop: 08/03/24 08:59 Last Admin: 07/11/24 09:30 Dose: 0.4 mg Tramadol HCl (Tramadol Hcl 50 Mg Tablet) 50 mg PO HS PRN PRN Reason: pain rating 6-10 Stop: 08/03/24 02:40 Last Admin: 07/10/24 20:54 Dose: 50 mg Umeclidinium/Vilanterol (Umeclidinium/Vilanterol 62.5/25mcg 7 Puffs/Inhaler) 1 puffs INH DAILY GARIMA Stop: 08/03/24 08:59 Last Admin: 07/11/24 09:28 Dose: 1 puffs Vitamin B Complex (Vitamin B Complex Tab) 1 tab PO DAILY GARIMA Stop: 08/03/24 08:59 Last Admin: 07/11/24 09:29 Dose: 1 tab
[2024-07-11] MEDS: POLYETHYLENE (MIRALAX) 17 GM PACK PO PRN (12:54)
--- NOTE | 2024-07-11 15:21 | Pharmacy Report ---
Pharmacy Glycemic Short Note 2 - Date of Service July 11, 2024 - Glycemic Short BSG Results (Last 24 hours): 07/10/24 07/10/24 07/11/24 16:23 20:26 06:10 Glucose 269 H POC Glucose 272 H 250 H 07/11/24 07/11/24 07/11/24 07:31 07:32 10:52 Glucose POC Glucose 329 H* 348 H* 381 H* 07/11/24 07/11/24 10:53 14:19 Glucose POC Glucose 371 H* 284 H OUTPATIENT ANTIDIABETIC REGIMEN: * Humulin U-500 100 units ACHS * metformin 1000mg BID * HbA1c 8.5% (07/04/24) ASSESSMENT: 07/11/24: * Blood sugars have been very poorly controlled over past 72 hours despite high doses of U-500 insulin (>500 unit of insulin/day) * Will trial change to NPH and Novolog with carb ratio today rather than increase U-500 doses further * Blood sugars remain elevated today, will see if improvement is noted throughout day. If not, may consider TID-QID U-500 tomorrow * Will utilize overnight checks given extent of hyperglycemia 07/09 * Tiffanie received 465 units of insulin yesterday (380 were basal as U-500, 85 were bolus) * Fasting BSG this AM elevated, will increase Humulin U-500 to approximately yesterday's insulin total to hopefully avoid the need for as much bolus correctional. This is an 18% over yesterday's dosage and 12% above home dosing regimen (some room for adjustment with A1c at 8.5%). No changes to NovoLog at this time. Will monitor trends daily to adjust dosage if needed. * She continues on Zosyn, no other glycemic stressors noted at this time. 07/08 * Patient received total 364 units of insulin yesterday (320 units were Humulin R U-500 and 44 units were bolus). * BSGs were [phone] mg/dl. * For better post-prandial coverage, added 80 units of U-500 insulin at lunch today to total 380 units of U-500 between all three meals. This is an 18% increase from yesterday. * Pre-lunch BSG was above 300 mg/dl since the U-500 dose was given late this AM and the pre-lunch BSG was checked only an hour later before the AM insulin dose could fully take effect. Anticipate BSGs to trend down this evening. 07/06 * Patient received 343 units of insulin yesterday (300 units were Humulin R U- 500 and 43 units were bolus). BSGs were still above goal range yesterday ([phone]/dL). * Fasting BSG was 138mg/dL this morning. Will continue U-500 dosing as is, but if BSGs elevated through the rest of the day today, may consider increasing just the AM dose since fasting was in the goal range. * Bolus parameters to continue without change. 07/05 * Tiffanie received 416 units of insulin yesterday (80 were Lantus, 186 bolus, and 150 were Humulin U-500) * Fasting BSG this improved with correctional insulin overnight, expect further improvement tomorrow with U-500 transition. No changes to basal regimen at this time, consider increase of U-500 if continually elevated * No carbohydrate ratio at this time, continue current correction factor. 07/04 * Tiffanie is a 73 YOF admitted with shortness of breath and a history of insulin dependent type 2 diabetes mellitus. Pharmacy has been consulted to assist with glycemic management while inpatient. She is familiar to the glycemic service from previous admissions * Initially started basal insulin at previously used dosing, decreased dosing this AM, plan to transition to U-500 with dinner at approx 75% home dosing. * NovoLog at previously used, very tight parameters, will remove carbohydrate ratio with addition of U-500. * She is on Zosyn and doxycycline IV currently, also received IV Solumedrol 60mg x1 yesterday evening which is likely contributing to hyperglycemia. PLAN FOR INPATIENT GLYCEMIC CONTROL: * Hold outpatient diabetes medications * Basal insulin * NPH 150 units SC qAM w/ breakfast * NPH 120 units SC qPM w/ dinner * Bolus insulin * NovoLog per scale ACHS or Q6hrs while NPO * Goal Range: Low 110 mg/dL - High 140 mg/dL * Correction Factor: 5 mg/dL/unit, 8 mg/dL/unit (at 00,04) * Nutritional / Prandial insulin per carb ratio of 1 unit per 1 grams CHO consumed
--- NOTE | 2024-07-11 15:23 | Hospitalist Progress Note ---
Date of Service July 11, 2024 Assessment & Plan (1) Acute exacerbation of CHF (congestive heart failure): Plan: 73-year-old female with past medical history significant for type 2 diabetes, dyslipidemia, gastroparesis due to diabetes, COPD, obstructive sleep apnea on CPAP, chronic diastolic CHF, history of CVA, persistent atrial fibrillation, hypertension, morbid obesity, GERD, CKD stage III, bipolar 2 disorder, major depression, former smoker comes because of shortness of breath for 4 days Acute on chronic diastolic CHF Acute hypoxic respiratory failure Patient presented to the hospital with shortness of breath for [address] chest showed bilateral diffuse groundglass opacity concerning for pulmonary edema. Lung nodule seen in right upper lobe of 8 mm Last echocardiogram in April 2023 shows EF of 60 to 65%; Echo shows EF of 60-65%; severely dilated left atrium. Diuretics IV Lasix 40 mg twice daily; creatinine up around 1.39. Monitor kidney function. Miller catheter on for strict I&O's and elevated creatinine. Daily weights Patient reports that she has not been taking torsemide for several days [employer] Cards on board, appreciate comanagement Bilateral lower extremity cellulitis: Empirically placed on Zosyn and doxycycline, pt allergic to cephalosporin. s/p atb course. History of COPD: No obvious wheezing, continue nebs [id number] and as needed and home inhalers and monitor Obstructive sleep apnea: CPAP/BiPAP nightly Type 2 diabetes: Continue home long-acting insulin. Hold metformin. Sliding scale. Glycemic pharmacy consult. f/u diabetic clinic on dc. History of persistent atrial fibrillation: On metoprolol succinate, digoxin and Eliquis. Will monitor Obesity Class III: Follow up as outpatient Bipolar 2 disorder, Depression: On oxcarbazepine,continue Dyslipidemia: On statin,continue GERD: On famotidine and Protonix,continue Hypertension: On metoprolol and prazosin and diuretics. Will monitor DVT prophylaxis: On Eliquis Disposition: Telemetry Full code. Please note the above document was generated using voice recognition software. It may contain grammatical, syntax or spelling errors. Any formal questions or concerns about the content, text or information contained within the body of this dictation should be directly addressed to the provider for clarification Admission and Anticipated Discharge Date Admission Date: July 04, 2024 Subjective From so patient seen and examined at bedside. She reports improvement in shortness of breath; bilateral pitting edema improving. Offers no new complaints. Physical Exam Physical Exam: General- Not in distress Head- atraumatic Eyes- PERRL. ENT- oropharynx clear Neck- supple, no JVD. Lungs- clear to auscultation no wheezing, mild bibasilar crackles Heart- regular rhythm; no murmur, no gallop. Abdomen- normal bowel sounds, soft, nontender, no distension Extremities- b/l lower extremity edema with chronic skin changes with erythema seen --> improving Neuro- alert, oriented PERRL, no facial palsy; no dysarthria; moves extremities Results & Data Results & Data Vital Signs (Past 12 Hours) Vital Signs Temp Pulse Resp BP Pulse Ox O2 Del Method O2 Flow Rate 07/11/24 12:57 Nasal Cannula 3 07/11/24 10:44 36.7 C 79 16 105/62 91 Room Air 07/11/24 07:49 36.7 C 82 18 122/74 93 Nasal Cannula 2 (1) Acute exacerbation of CHF (congestive heart failure) Heart failure type: unspecified Qualified Code(s): I50.9 - Heart failure, unspecified
[2024-07-12] MEDS: INSULIN ASPART PER UNIT CHARGE SC SCH ×2 (00:28→18:01)
[2024-07-12 07:51] LABS: BUN Creatinine Ratio 34.9 (10-20); Calcium 9.3 mg/dl (8.6-10.3); Creatinine Clr Calc Pharmacy 69.5 ml/min; Magnesium 1.7 mg/dl (1.7-2.4); Potassium 3.6 mmol/L (3.5-5.1)
[2024-07-12] MEDS: POTASSIUM CHLORIDE CRTAB 20 MEQ TABCR PO STA (08:17)
[2024-07-12] MEDS: MAGNESIUM SULFATE / D5W 1 GM/100 ML BAG IV SCH (08:21)
[2024-07-12] MEDS: INSULIN HUMAN NPH SC SCH (08:46)
--- NOTE | 2024-07-12 11:41 | Cardiology Progress Note ---
Date of Service July 12, 2024 Assessment & Plan (1) Permanent atrial fibrillation: (2) Acute on chronic heart failure with preserved ejection fraction (HFpEF): (3) Acute hypoxemic respiratory failure: (4) Chronic venous insufficiency: Plan Acute decompensated heart failure with preserved ejection fraction, HFpEF, obesity hypoventilation syndrome, pickwickian physiology Cumulative I's/O's -18.5 L overall, with ongoing signs and symptoms of acute decompensated heart failure - Miller catheter in place - Continue IV diuresis at least another day - Supplement potassium orally - Avoid spironolactone noting chronic use of potassium citrate for nephrolithiasis, intermittent borderline elevated potassium, CKD - Recommend CPAP at nighttime and when napping during the day - Sodium and fluid restrictions reviewed Permanent atrial fibrillation. Continue rate control with metoprolol and digoxin. Continue apixaban (Eliquis) anticoagulation. Hypertension. Controlled. Follow. Dyslipidemia. Continue atorvastatin 40 mg/day Admission and Anticipated Discharge Date Admission Date: July 04, 2024 Supervising Physician Co-Signing Physician Notes Patient seen personally and physically examined. Care and management discussed with advanced provider as above. Personally endorsed Responding to IV diuretics but still with significant volume overload Plan as above Subjective Patient seen and examined, in bedside chair. Chart, medications, telemetry reviewed Breathing has improved. Ongoing fluid retention. Chronic shoulder and hip pain Cumulative I/O's -18,489 mL overall Weights difficult to discern as charted, down at least 8 kg Creatinine stable. Telemetry: Atrial fibrillation in the 80's. Physical Exam Physical Exam: General: A&Ox3. NAD. HENT: Normocephalic. Atraumatic. Eyes: PER. Conjunctiva pink, sclera clear. Neck: Neck veins not appreciated. Heart: Irregularly irregular at 84 bpm. No murmur. Lungs: Clear to auscultation. Abdomen: +BS. Soft. Nontender. No masses or organomegaly. Extremities: 1-2+ indurated edema. Stasis changes. No overt cellulitis. Limited neurological examination is without focal deficits. Distal pulses not appreciated. Results & Data Vital Signs (Past 12 Hours) Vital Signs Temp Pulse Pulse Resp BP BP Pulse Ox 07/12/24 11:34 36.6 C 74 18 128/64 91 07/12/24 10:45 07/12/24 08:06 36.8 C 75 16 134/72 93 07/12/24 07:00 81 07/12/24 03:38 36.7 C 85 18 150/72 H 07/12/24 03:26 85 22 91 O2 Del Method O2 Flow Rate 07/12/24 11:34 Nasal Cannula 2 07/12/24 10:45 Nasal Cannula 2 07/12/24 08:06 Nasal Cannula 2 07/12/24 07:00 07/12/24 03:38 07/12/24 03:26 2 Laboratory Results Comprehensive Metabolic Panel 07/12/24 Range/Units 06:09 Sodium 140 (136-145) mmol/L Potassium 3.6 (3.5-5.1) mmol/L Chloride 96 L (98-107) mmol/L Carbon Dioxide 35 H (21-32) mmol/L BUN 38 H (6-23) mg/dl Creatinine 1.09 D (0.6-1.2) mg/dl Glucose 235 H (70-99(Fasting)) mg/dl Calcium 9.3 (8.6-10.3) mg/dl Intake and Output 07/11/24 07/12/24 07/12/24 22:59 06:59 14:59 Intake Total 300 / 600 94.167 / 94.167 Output Total 800 / 2900 650 / 2900 Balance -800 / -2300 -350 / -2300 94.167 / 94.167 Intake: IV 94.167 / 94.167 Magnesium Sulfate / D5w 1 gm In 94.167 / 94.167 100 ml @ 50 mls/hr IV Q2H [facility] Rx#:[id number] Oral 300 / 600 Output: Urine Amount (Catheter) 800 / 2900 650 / 2900 Miller/Indwelling 800 / 2900 650 / 2900 Other: Weight 150.5 kg Weight Measurement Method Built in [facility]
[2024-07-12] MEDS: INSULIN HUMAN NPH SC ONE ×2 (12:37→18:01)
[2024-07-12] MEDS ORDERED: SEVERE STRESS LEVEL ONE (15:03)
[2024-07-12] MEDS ORDERED: INSULIN PROTOCOL GOAL RANGE ONE (15:03)
[2024-07-12] MEDS ORDERED: STAT IV Infusion **Titration per Protocol STA (15:03)
--- NOTE | 2024-07-12 15:12 | Pharmacy Report ---
Pharmacy Glycemic Short Note 2 - Date of Service July 12, 2024 - Glycemic Short BSG Results (Last 24 hours): 07/11/24 07/11/24 07/12/24 16:07 20:10 00:18 Glucose POC Glucose 260 H 287 H 269 H 07/12/24 07/12/24 07/12/24 04:24 06:09 08:17 Glucose 235 H POC Glucose 300 H 221 H 07/12/24 07/12/24 07/12/24 11:58 11:59 14:43 Glucose POC Glucose 326 H* 325 H* 323 H* OUTPATIENT ANTIDIABETIC REGIMEN: * Humulin U-500 100 units ACHS * metformin 1000mg BID * HbA1c 8.5% (07/04/24) ASSESSMENT: 07/12/24: * Blood sugars continue to be very poorly controlled * Attempted transition to TID NPH, but still above 300 mg/dL this afternoon * Discussed with hospitalist and will utilize temporary insulin gtt to more safely reduce blood sugars (concern for stacking/accumulation w/ increasing doses of NPH 07/11/24: * Blood sugars have been very poorly controlled over past 72 hours despite high doses of U-500 insulin (>500 unit of insulin/day) * Will trial change to NPH and Novolog with carb ratio today rather than increase U-500 doses further * Blood sugars remain elevated today, will see if improvement is noted throughout day. If not, may consider TID-QID U-500 tomorrow * Will utilize overnight checks given extent of hyperglycemia 07/09 * Tiffanie received 465 units of insulin yesterday (380 were basal as U-500, 85 were bolus) * Fasting BSG this AM elevated, will increase Humulin U-500 to approximately yesterday's insulin total to hopefully avoid the need for as much bolus correctional. This is an 18% over yesterday's dosage and 12% above home dosing regimen (some room for adjustment with A1c at 8.5%). No changes to NovoLog at this time. Will monitor trends daily to adjust dosage if needed. * She continues on Zosyn, no other glycemic stressors noted at this time. 07/08 * Patient received total 364 units of insulin yesterday (320 units were Humulin R U-500 and 44 units were bolus). * BSGs were [phone] mg/dl. * For better post-prandial coverage, added 80 units of U-500 insulin at lunch today to total 380 units of U-500 between all three meals. This is an 18% increase from yesterday. * Pre-lunch BSG was above 300 mg/dl since the U-500 dose was given late this AM and the pre-lunch BSG was checked only an hour later before the AM insulin dose could fully take effect. Anticipate BSGs to trend down this evening. 07/06 * Patient received 343 units of insulin yesterday (300 units were Humulin R U- 500 and 43 units were bolus). BSGs were still above goal range yesterday ([phone]/dL). * Fasting BSG was 138mg/dL this morning. Will continue U-500 dosing as is, but if BSGs elevated through the rest of the day today, may consider increasing just the AM dose since fasting was in the goal range. * Bolus parameters to continue without change. 07/05 * Tiffanie received 416 units of insulin yesterday (80 were Lantus, 186 bolus, and 150 were Humulin U-500) * Fasting BSG this improved with correctional insulin overnight, expect further improvement tomorrow with U-500 transition. No changes to basal regimen at this time, consider increase of U-500 if continually elevated * No carbohydrate ratio at this time, continue current correction factor. 07/04 * Tiffanie is a 73 YOF admitted with shortness of breath and a history of insulin dependent type 2 diabetes mellitus. Pharmacy has been consulted to assist with glycemic management while inpatient. She is familiar to the glycemic service from previous admissions * Initially started basal insulin at previously used dosing, decreased dosing this AM, plan to transition to U-500 with dinner at approx 75% home dosing. * NovoLog at previously used, very tight parameters, will remove carbohydrate ratio with addition of U-500. * She is on Zosyn and doxycycline IV currently, also received IV Solumedrol 60mg x1 yesterday evening which is likely contributing to hyperglycemia. PLAN FOR INPATIENT GLYCEMIC CONTROL: * Hold outpatient diabetes medications * Initiate insulin infusion per protocol * Basal insulin * NPH 200 units SC qAM w/ breakfast * NPH 100 units SC qPM w/ lunch * NPH 100 units SC @1800 * Bolus insulin * NovoLog per scale ACHS or Q6hrs while NPO * Nutritional / Prandial insulin per carb ratio of 1 unit per 1 grams CHO consumed
--- NOTE | 2024-07-12 15:24 | Hospitalist Progress Note ---
Date of Service July 12, 2024 Assessment & Plan (1) Acute exacerbation of CHF (congestive heart failure): Plan: 73-year-old female with past medical history significant for type 2 diabetes, dyslipidemia, gastroparesis due to diabetes, COPD, obstructive sleep apnea on CPAP, chronic diastolic CHF, history of CVA, persistent atrial fibrillation, hypertension, morbid obesity, GERD, CKD stage III, bipolar 2 disorder, major depression, former smoker comes because of shortness of breath for 4 days Acute on chronic diastolic CHF Acute hypoxic respiratory failure Patient presented to the hospital with shortness of breath for [address] chest showed bilateral diffuse groundglass opacity concerning for pulmonary edema. Lung nodule seen in right upper lobe of 8 mm Last echocardiogram in April 2023 shows EF of 60 to 65%; Echo shows EF of 60-65%; severely dilated left atrium. Diuretics IV Lasix 40 mg twice daily; creatinine up around 1.39. Monitor kidney function. Miller catheter on for strict I&O's and elevated creatinine. Daily weights Patient reports that she has not been taking torsemide for several days [employer] Cards on board, appreciate comanagement Bilateral lower extremity cellulitis: Empirically placed on Zosyn and doxycycline, pt allergic to cephalosporin. s/p atb course. History of COPD: No obvious wheezing, continue nebs [id number] and as needed and home inhalers and monitor Obstructive sleep apnea: CPAP/BiPAP nightly Type 2 diabetes: Continue home long-acting insulin. Hold metformin. Sliding scale. Glycemic pharmacy consult. f/u diabetic clinic on dc. d/w pharmacy, plan for insulin gtt today as pt's glucose very difficult to control w/ sc insulin History of persistent atrial fibrillation: On metoprolol succinate, digoxin and Eliquis. Will monitor Obesity Class III: Follow up as outpatient Bipolar 2 disorder, Depression: On oxcarbazepine,continue Dyslipidemia: On statin,continue GERD: On famotidine and Protonix,continue Hypertension: On metoprolol and prazosin and diuretics. Will monitor DVT prophylaxis: On Eliquis Disposition: Telemetry Full code. Please note the above document was generated using voice recognition software. It may contain grammatical, syntax or spelling errors. Any formal questions or concerns about the content, text or information contained within the body of this dictation should be directly addressed to the provider for clarification Admission and Anticipated Discharge Date Admission Date: July 04, 2024 Subjective From so patient seen and examined at bedside. She reports improvement in shortness of breath; bilateral pitting edema improving. Offers no new complaints. Physical Exam Physical Exam: General- Not in distress Head- atraumatic Eyes- PERRL. ENT- oropharynx clear Neck- supple, no JVD. Lungs- clear to auscultation no wheezing, mild bibasilar crackles Heart- regular rhythm; no murmur, no gallop. Abdomen- normal bowel sounds, soft, nontender, no distension Extremities- b/l lower extremity edema with chronic skin changes with erythema s een --> improving Neuro- alert, oriented PERRL, no facial palsy; no dysarthria; moves extremities Results & Data Results & Data Vital Signs (Past 12 Hours) Vital Signs Temp Pulse Pulse Resp BP BP Pulse Ox 07/12/24 14:06 91 07/12/24 11:34 36.6 C 74 18 128/64 91 07/12/24 10:45 07/12/24 08:06 36.8 C 75 16 134/72 93 07/12/24 07:00 81 07/12/24 03:38 36.7 C 85 18 150/72 H 07/12/24 03:26 85 22 91 O2 Del Method O2 Flow Rate 07/12/24 14:06 2 07/12/24 11:34 Nasal Cannula 2 07/12/24 10:45 Nasal Cannula 2 07/12/24 08:06 Nasal Cannula 2 07/12/24 07:00 07/12/24 03:38 07/12/24 03:26 2 (1) Acute exacerbation of CHF (congestive heart failure) Heart failure type: unspecified Qualified Code(s): I50.9 - Heart failure, unspecified
[2024-07-12] MEDS: INSULIN REGULAR 250 UNITS in SODIUM CHLORIDE 0.9% 247.5 ML IV SCH (16:02)
[2024-07-12] MEDS: INSULIN HUMAN REGULAR IV BOLUS 6 UNITS in SYRINGE 0 ML IV ONE (16:02)
[2024-07-13] MEDS ORDERED: INSULIN ASPART PER UNIT CHARGE SC SCH
[2024-07-13 08:31] LABS: BUN Creatinine Ratio 29.5 (10-20); Calcium 9.5 mg/dl (8.6-10.3); Creatinine Clr Calc Pharmacy 78.5 ml/min; Magnesium 1.9 mg/dl (1.7-2.4); Phosphorus 3.3 mg/dl (2.5-4.9); Potassium 3.6 mmol/L (3.5-5.1)
--- NOTE | 2024-07-13 09:24 | Hospitalist Progress Note ---
Date of Service July 13, 2024 Assessment & Plan (1) Acute exacerbation of CHF (congestive heart failure): Plan: 73-year-old female with past medical history significant for type 2 diabetes, dyslipidemia, gastroparesis due to diabetes, COPD, obstructive sleep apnea on CPAP, chronic diastolic CHF, history of CVA, persistent atrial fibrillation, hypertension, morbid obesity, GERD, CKD stage III, bipolar 2 disorder, major depression, former smoker comes because of shortness of breath for 4 days Acute on chronic diastolic CHF Acute hypoxic respiratory failure Patient presented to the hospital with shortness of breath for [address] chest showed bilateral diffuse groundglass opacity concerning for pulmonary edema. Lung nodule seen in right upper lobe of 8 mm Echocardiogram in April 2023 shows EF of 60 to 65%; Echo this time shows EF of 60-65%; severely dilated left atrium. Currently on IV Lasix 40 mg BID Daily weights, I/O Patient reports that she has not been taking torsemide for several days [employer] Cards on board. Appreciate recs Wean off oxygen and monitor Bilateral lower extremity cellulitis: Completed antibiotics History of COPD: Stable Continue nebs prn Wean off oxygen. Reported she is not on oxygen at home 2 step prior to dc Obstructive sleep apnea: CPAP/BiPAP nightly Type 2 diabetes: Glycemic pharm on board Currently on insulin drip for better glycemic control due to high insulin requirements HbA1c is 8.5 F/u Diabetes [facility] clinic History of persistent atrial fibrillation: Rate controlled on metoprolol succinate, digoxin Continue Eliquis. Obesity Class III: Counseled patient about need for weight loss Follow up as outpatient Bipolar 2 disorder, Depression: On oxcarbazepine,continue Dyslipidemia: On statin,continue GERD: On famotidine and Protonix,continue DVT prophylaxis: On Eliquis Disposition: Telemetry Full code. RN to remove telma Maxwell spent a total of 50 minutes coordinating, documenting and providing care for this patient excluding time spent in performance of separately billed services Admission and Anticipated Discharge Date Admission Date: July 04, 2024 Subjective Patient seen and examined Reports cough Denied any SOB or any other complaints today Reports feeling better Physical Exam Constitutional: + well hydrated and + obese; no acute di stress Eyes: PERRL, conjunctivae normal, anicteric sclerae ENMT: external ear and nose normal, oropharynx normal Respiratory: On nasal cannula, not in respiratory distress, CTA b/l Cardiovascular: Rate/Rhythm: + irregularly irregular Gastrointestinal (Abdomen): normal bowel sounds, soft, nontender, no hepatosplenomegaly Musculoskeletal: +edema. Stasis changes Neurologic: PERRL, EOMI, accommodation nl, no face palsy, no dysarthria Psychiatric: A+Ox3, euthymic affect Genitourinary: Miller in situ Results & Data Results & Data Vital Signs (Past 12 Hours) Vital Signs Temp Pulse Pulse Resp BP BP Pulse Ox 07/13/24 07:16 36.8 C 80 18 146/78 H 96 07/13/24 07:00 78 07/13/24 03:00 36.5 C 79 22 164/75 H 93 07/12/24 23:37 07/12/24 23:00 36.5 C 83 20 153/89 H 96 07/12/24 21:53 77 O2 Del Method O2 Flow Rate 07/13/24 07:16 Nasal Cannula 2 07/13/24 07:00 07/13/24 03:00 Nasal Cannula 2 07/12/24 23:37 Nasal Cannula 2 07/12/24 23:00 Nasal Cannula 2 07/12/24 21:53 Laboratory Results Abnormal lab results 07/12/24 07/12/24 07/12/24 Range/Units 11:58 11:59 14:43 Chloride (98-107) mmol/L Carbon Dioxide (21-32) mmol/L BUN (6-23) mg/dl BUN/Creatinine Ratio (10-20) Glucose (70-99(Fasting)) mg/dl POC Glucose 326 H* 325 H* 323 H* (70-99) mg/dl 07/12/24 07/12/24 07/12/24 Range/Units 16:04 17:04 18:06 Chloride (98-107) mmol/L Carbon Dioxide (21-32) mmol/L BUN (6-23) mg/dl BUN/Creatinine Ratio (10-20) Glucose (70-99(Fasting)) mg/dl POC Glucose 276 H 251 H 250 H (70-99) mg/dl 07/12/24 07/12/24 07/12/24 Range/Units 19:02 20:06 21:05 Chloride (98-107) mmol/L Carbon Dioxide (21-32) mmol/L BUN (6-23) mg/dl BUN/Creatinine Ratio (10-20) Glucose (70-99(Fasting)) mg/dl POC Glucose 254 H 262 H 219 H (70-99) mg/dl 07/12/24 07/12/24 07/13/24 Range/Units 22:09 23:15 00:01 Chloride (98-107) mmol/L Carbon Dioxide (21-32) mmol/L BUN (6-23) mg/dl BUN/Creatinine Ratio (-20) Glucose (70-99(Fasting)) mg/dl POC Glucose 211 H 201 H 213 H (70-99) mg/dl 07/13/24 07/13/24 07/13/24 Range/Units 01:03 02:08 03:02 Chloride (98-107) mmol/L Carbon Dioxide (21-32) mmol/L BUN (6-23) mg/dl BUN/Creatinine Ratio (-20) Glucose (70-99(Fasting)) mg/dl POC Glucose 206 H 193 H 187 H (70-99) mg/dl 07/13/24 07/13/24 07/13/24 Range/Units 04:05 05:08 06:06 Chloride (98-107) mmol/L Carbon Dioxide (21-32) mmol/L BUN (6-23) mg/dl BUN/Creatinine Ratio (-20) Glucose (70-99(Fasting)) mg/dl POC Glucose 177 H 169 H 160 H (70-99) mg/dl 07/13/24 07/13/24 Range/Units 07:41 08:06 Chloride 97 L (98-107) mmol/L Carbon Dioxide 37 H (21-32) mmol/L BUN 28 H (6-23) mg/dl BUN/Creatinine Ratio 29.5 H (10-20) Glucose 146 H (70-99(Fasting)) mg/dl POC Glucose 164 H (70-99) mg/dl (1) Acute exacerbation of CHF (congestive heart failure) Heart failure type: unspecified Qualified Code(s): I50.9 - Heart failure, unspecified
[2024-07-13] MEDS: HumuLIN-R 500 UNITS/ML VIAL SQ SCH ×4 (09:43→22:22)
--- NOTE | 2024-07-13 11:12 | Cardiology Progress Note ---
Date of Service July 13, 2024 Assessment & Plan (1) Permanent atrial fibrillation: (2) Acute on chronic heart failure with preserved ejection fraction (HFpEF): (3) Acute hypoxemic respiratory failure: (4) Chronic venous insufficiency: Plan Acute decompensated heart failure with preserved ejection fraction, HFpEF, obesity hypoventilation syndrome, pickwickian physiology Cumulative I's/O's -19.4 L overall - Continue IV diuresis today then transition to oral - Supplement potassium orally - Avoid spironolactone noting chronic use of potassium citrate for nephrolithiasis, intermittent borderline elevated potassium, CKD - CPAP therapy encouraged when napping during the day and every night. Permanent atrial fibrillation. Continue rate control with metoprolol and digoxin. Continue apixaban (Eliquis) anticoagulation. Hypertension. Controlled. Follow. Dyslipidemia. Continue atorvastatin 40 mg/day Admission and Anticipated Discharge Date Admission Date: July 04, 2024 Supervising Physician Co-Signing Physician Notes Patient seen personally and physically examined. Care and management discussed with advanced provider as above. Personally endorsed Responding to IV diuretics and now demonstrating evidence of reduced volume overload/edema. Plan additional day as noted of IV furosemide today then transition to oral diuretics tomorrow no other recommendations Plan as above Subjective Patient seen and examined. Chart, medications, telemetry reviewed. Patient more lethargic. She did not utilize CPAP overnight. Breathing is OK. Fluid has improved. Miller catheter remains in place. Cumulative I/O's -19,413.9 mL overall Telemetry: Atrial fibrillation in the 80's. Physical Exam Physical Exam: General: NAD. HENT: Normocephalic. Atraumatic. Eyes: PER. Conjunctiva pink, sclera clear. Neck: Neck veins not appreciated. Heart: Irregularly irregular at 80 bpm. No murmur. Lungs: Clear to auscultation. Abdomen: +BS. Soft. Nontender. No masses or organomegaly. Extremities: 1-2+ indurated edema. Stasis changes. No overt cellulitis. Limited neurological examination is without focal deficits. Distal pulses not appreciated. Results & Data Vital Signs (Past 12 Hours) Vital Signs Temp Pulse Pulse Resp BP BP Pulse Ox 07/13/24 08:30 07/13/24 07:16 36.8 C 80 18 146/78 H 96 07/13/24 07:00 78 07/13/24 03:00 36.5 C 79 22 164/75 H 93 07/12/24 23:37 O2 Del Method O2 Flow Rate 07/13/24 08:30 Nasal Cannula 2 07/13/24 07:16 Nasal Cannula 2 07/13/24 07:00 07/13/24 03:00 Nasal Cannula 2 07/12/24 23:37 Nasal Cannula 2 Laboratory Results Comprehensive Metabolic Panel 07/13/24 Range/Units 07:41 Sodium 141 (136-145) mmol/L Potassium 3.6 (3.5-5.1) mmol/L Chloride 97 L (98-107) mmol/L Carbon Dioxide 37 H (21-32) mmol/L BUN 28 H (6-23) mg/dl Creatinine 0.95 (0.6-1.2) mg/dl Glucose 146 H (70-99(Fasting)) mg/dl Calcium 9.5 (8.6-10.3) mg/dl Intake and Output 07/12/24 07/13/24 07/13/24 22:59 06:59 14:59 Intake Total 40.106 / 1407.979 573.706 / 1407.979 50.743 / 50.743 Output Total 1425 / 2275 Balance 40.106 / -867.021 -851.294 / -867.021 50.743 / 50.743 Intake: IV 40.106 / 307.979 73.706 / 307.979 50.743 / 50.743 Insulin Regular 250 units In 40.106 / 113.812 73.706 / 113.812 50.743 / 50.743 Sodium Chloride 0.9% 247.5 ml @ 9.6 UNITS/HR 9.6 mls/hr IV . Q24H [facility] Rx#:[id number] Oral 500 / 1100 Output: Urine Amount (Catheter) 142 / 2275 Miller/Indwelling 1425 / 2275 Other: Weight 150.184 kg Weight Measurement Method Built in [facility]
[2024-07-13] MEDS: POTASSIUM CHLORIDE 10 MEQ TABCR PO ONE (11:52)
--- NOTE | 2024-07-13 15:02 | Pharmacy Report ---
Pharmacy Glycemic Short Note 2 - Date of Service July 13, 2024 - Glycemic Short BSG Results (Last 24 hours): 07/12/24 07/12/24 07/12/24 16:04 17:04 18:06 Glucose POC Glucose 276 H 251 H 250 H 07/12/24 07/12/24 07/12/24 19:02 20:06 21:05 Glucose POC Glucose 254 H 262 H 219 H 07/12/24 07/12/24 07/13/24 22:09 23:15 00:01 Glucose POC Glucose 211 H 201 H 213 H 07/13/24 07/13/24 07/13/24 01:03 02:08 03:02 Glucose POC Glucose 206 H 193 H 187 H 07/13/24 07/13/24 07/13/24 04:05 05:08 06:06 Glucose POC Glucose 177 H 169 H 160 H 07/13/24 07/13/24 07/13/24 07:41 08:06 09:59 Glucose 146 H POC Glucose 164 H 240 H 07/13/24 07/13/24 07/13/24 10:57 11:59 12:55 Glucose POC Glucose 264 H 221 H 196 H 07/13/24 14:03 Glucose POC Glucose 279 H OUTPATIENT ANTIDIABETIC REGIMEN: * Humulin U-500 100 units ACHS * metformin 1000mg BID * HbA1c 8.5% (07/04/24) ASSESSMENT: 07/13/24: * Blood sugars improved overnight w/ IV insulin infusion * We will plan to transition back to SC today and will switch back to U-500 insulin (mimicking patient's home regimen) * Still unclear rationale for profound insulin resistance at this time. * Possible d/c in next couple of days. Will restart metformin to see if that helps with glycemic control. 07/12/24: * Blood sugars continue to be very poorly controlled * Attempted transition to TID NPH, but still above 300 mg/dL this afternoon * Discussed with hospitalist and will utilize temporary insulin gtt to more safely reduce blood sugars (concern for stacking/accumulation w/ increasing doses of NPH 07/11/24: * Blood sugars have been very poorly controlled over past 72 hours despite high doses of U-500 insulin (>500 unit of insulin/day) * Will trial change to NPH and Novolog with carb ratio today rather than increase U-500 doses further * Blood sugars remain elevated today, will see if improvement is noted throughout day. If not, may consider TID-QID U-500 tomorrow * Will utilize overnight checks given extent of hyperglycemia 07/09 * Tiffanie received 465 units of insulin yesterday (380 were basal as U-500, 85 were bolus) * Fasting BSG this AM elevated, will increase Humulin U-500 to approximately yesterday's insulin total to hopefully avoid the need for as much bolus correctional. This is an 18% over yesterday's dosage and 12% above home dosing regimen (some room for adjustment with A1c at 8.5%). No changes to NovoLog at this time. Will monitor trends daily to adjust dosage if needed. * She continues on Zosyn, no other glycemic stressors noted at this time. 07/08 * Patient received total 364 units of insulin yesterday (320 units were Humulin R U-500 and 44 units were bolus). * BSGs were [phone] mg/dl. * For better post-prandial coverage, added 80 units of U-500 insulin at lunch today to total 380 units of U-500 between all three meals. This is an 18% increase from yesterday. * Pre-lunch BSG was above 300 mg/dl since the U-500 dose was given late this AM and the pre-lunch BSG was checked only an hour later before the AM insulin d ose could fully take effect. Anticipate BSGs to trend down this evening. 07/06 * Patient received 343 units of insulin yesterday (300 units were Humulin R U- 500 and 43 units were bolus). BSGs were still above goal range yesterday ([phone]/dL). * Fasting BSG was 138mg/dL this morning. Will continue U-500 dosing as is, but if BSGs elevated through the rest of the day today, may consider increasing just the AM dose since fasting was in the goal range. * Bolus parameters to continue without change. 07/05 * Tiffanie received 416 units of insulin yesterday (80 were Lantus, 186 bolus, and 150 were Humulin U-500) * Fasting BSG this improved with correctional insulin overnight, expect further improvement tomorrow with U-500 transition. No changes to basal regimen at this time, consider increase of U-500 if continually elevated * No carbohydrate ratio at this time, continue current correction factor. 07/04 * Tiffanie is a 73 YOF admitted with shortness of breath and a history of insulin dependent type 2 diabetes mellitus. Pharmacy has been consulted to assist with glycemic management while inpatient. She is familiar to the glycemic service from previous admissions * Initially started basal insulin at previously used dosing, MD decreased dosing this AM, plan to transition to U-500 with dinner at approx 75% home dosing. * NovoLog at previously used, very tight parameters, will remove carbohydrate ratio with addition of U-500. * She is on Zosyn and doxycycline IV currently, also received IV Solumedrol 60mg x1 yesterday evening which is likely contributing to hyperglycemia. PLAN FOR INPATIENT GLYCEMIC CONTROL: * Restart metformin 1000 mg PO BIDM * Transition IV insulin infusion back to SC regimen * Will allow for 3 doses of U-500 to be on board before discontinuation, or sooner if needed * Basal insulin * U-500 insulin 100 units SC ACHS * Bolus insulin - start once insulin infusion discontinued * NovoLog per scale ACHS or Q6hrs while NPO * Goal range: 110-140 mg/dL * Correction Factor: 4 mg/dL/unit
[2024-07-13] MEDS: metFORMIN HCL 500 MG TAB PO SCH (16:01)
[2024-07-13 18:23] LABS: iSTAT Arterial Blood Gas HCO3 34 meg/L (19-24); iSTAT Arterial Blood Gas pCO2 53 mmHg (35-46); iSTAT Arterial Blood Gas pH 7.42 (7.35-7.45); iSTAT Arterial Blood Gas pO2 59 mmHg (80-95); iSTAT Carbon Dioxide 36 mmol/L (24-31); iSTAT Hematocrit 34 % (37-47); iSTAT Hemoglobin 11.6 g/dl (12.0-16.0); iSTAT Potassium 3.6 mmol/L (3.3-5.0); iSTAT Sodium 141 mmol/L (135-144)
[2024-07-13] MEDS: ACETAMINOPHEN 325 MG TAB PO PRN (18:26)
--- NOTE | 2024-07-13 18:26 | Communication Note ---
Called to bedside for cross coverage regarding increased patient lethargy. Patient states she feels ok right now, just tired as she states shes not sleeping well. On exam, tachycardic, regular rhythm, no pitting edema, alert and orriented x3, no focal deficits noted, per nurse close to baseline. Discussed close watching with nurse, if continued drowsiness will check basic labs and CT head. Date of Service: July 13, 2024
[2024-07-13] MEDS: STOP ORDER: INSULIN GTT ONE (18:34)
[2024-07-13] MEDS: INSULIN ASPART PER UNIT CHARGE SC SCH (20:50)
[2024-07-14] MEDS: INSULIN ASPART PER UNIT CHARGE SC SCH (00:30)
[2024-07-14] MEDS: MICONAZOLE NITRATE POWDER 85 GM EXT PRN (05:55)
[2024-07-14 06:52] LABS: Hematocrit (blood only) 34.4 % (37.0-47.0); Hemoglobin 10.2 g/dl (12.0-16.0); Mean Corpuscular Hemoglobin 24.3 pg (25.0-34.0); Mean Corpuscular Hgb Conc 29.7 g/dL (32.0-36.0); Mean Corpuscular Volume 82.1 fL (80.0-100.0); Mean Platelet Volume 11.5 fL (9.4-12.4); Nucleated RBC # (auto) 0.03 K/uL (0.00-0.12); Nucleated RBC % (auto) 0.3 %; Platelet Count 172 K/uL (130-400); RDW Coefficient of Variation 19.6 % (11.5-14.5); RDW Standard Deviation 57.2 fL (36.4-46.3); Red Blood Count 4.19 M/uL (4.20-5.40); White Blood Count 9.53 K/ul (4.8-10.8)
[2024-07-14 07:33] LABS: BUN Creatinine Ratio 28.2 (10-20); Calcium 9.7 mg/dl (8.6-10.3); Creatinine Clr Calc Pharmacy 60.2 ml/min; Magnesium 1.9 mg/dl (1.7-2.4); Phosphorus 3.8 mg/dl (2.5-4.9); Potassium 4.1 mmol/L (3.5-5.1)
[2024-07-14] MEDS: HumuLIN-R 500 UNITS/ML VIAL SQ SCH ×4 (10:20→22:21)
--- NOTE | 2024-07-14 12:45 | Hospitalist Progress Note ---
Date of Service July 14, 2024 Assessment & Plan (1) Acute exacerbation of CHF (congestive heart failure): Plan: 73-year-old female with past medical history significant for type 2 diabetes, dyslipidemia, gastroparesis due to diabetes, COPD, obstructive sleep apnea on CPAP, chronic diastolic CHF, history of CVA, persistent atrial fibrillation, hypertension, morbid obesity, GERD, CKD stage III, bipolar 2 disorder, major depression, former smoker comes because of shortness of breath for 4 days Acute on chronic diastolic CHF Acute hypoxic respiratory failure Patient presented to the hospital with shortness of breath for [address] chest showed bilateral diffuse groundglass opacity concerning for pulmonary edema. Lung nodule seen in right upper lobe of 8 mm Echocardiogram in April 2023 shows EF of 60 to 65%; Echo this time shows EF of 60-65%; severely dilated left atrium. 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 Obesity Class III: Counseled patient about need for weight loss Follow up as outpatient Bipolar 2 disorder, Depression: On oxcarbazepine,continue Dyslipidemia: On statin,continue GERD: On famotidine and Protonix,continue DVT prophylaxis: On Eliquis Disposition: Telemetry Full code. Had declined hollis removal yesterday. Explained to patient need for hollis removal. Agreed for removal today. RN notified I spent a total of 40 minutes coordinating, documenting and providing care for this patient excluding time spent in performance of separately billed services Admission and Anticipated Discharge Date Admission Date: July 04, 2024 Subjective Patient seen and examined Reports feeling quite weak today and does not feel ready to go home Cough and SOB improved No other complaints Physical Exam Constitutional: + well hydrated and + obese; no acute di stress Eyes: PERRL, conjunctivae normal, anicteric sclerae ENMT: external ear and nose normal, oropharynx normal Respiratory: On nasal cannula, CTA b/l Cardiovascular: Rate/Rhythm: + irregularly irregular Gastrointestinal (Abdomen): normal bowel sounds, soft, nontender, no hepatosplenomegaly Musculoskeletal: Stasis changes in legs. +edema Neurologic: PERRL, EOMI, accommodation nl, no face palsy, no dysarthria Psychiatric: A+Ox3, euthymic affect Results & Data Results & Data Vital Signs (Past 12 Hours) Vital Signs Temp Pulse Pulse Pulse Pulse Pulse Pulse 07/14/24 11:52 36.7 C 84 07/14/24 09:30 94 H 93 H 94 H 94 H 07/14/24 07:59 36.8 C 98 H 07/14/24 03:48 85 07/14/24 03:00 36.8 C 84 Pulse Resp Resp Resp Resp Resp Resp 07/14/24 11:52 18 07/14/24 09:30 93 H 19 21 21 21 17 07/14/24 07:59 20 07/14/24 03:48 20 07/14/24 03:00 22 BP BP Pulse Ox Pulse Ox Pulse Ox Pulse Ox Pulse Ox 07/14/24 11:52 143/83 H 93 07/14/24 09:30 92 87 L 92 85 L 07/14/24 07:59 131/72 90 07/14/24 03:48 93 07/14/24 03:00 128/72 93 Pulse Ox O2 Del Method O2 Flow Rate O2 Flow Rate O2 Flow Rate O2 Flow Rate O2 Flow Rate 07/14/24 11:52 Nasal Cannula 2 07/14/24 09:30 85 L 1 2 3 1 07/14/24 07:59 CPAP 07/14/24 03:48 3 07/14/24 03:00 CPAP 2 Laboratory Results Abnormal lab results 07/13/24 07/13/24 07/13/24 Range/Units 14:03 14:52 16:00 RBC (4.20-5.40) M/uL Hgb (12.0-16.0) g/dl POC Hgb (12.0-16.0) g/dl Hct (37.0-47.0) % POC Hct (37-47) % MCH (25.0-34.0) pg MCHC (32.0-36.0) g/dL RDW Std Deviation (36.4-46.3) fL RDW Coeff of [place] (11.5-14.5) % POC pCO2 (35-46) mmHg POC pO2 (80-95) mmHg POC HCO3 (19-24) huang/L POC Total CO2 (24-31) mmol/L POC Base Excess (-9-1.8) huang/L Carbon Dioxide (21-32) mmol/L BUN (6-23) mg/dl Creatinine (0.6-1.2) mg/dl BUN/Creatinine Ratio (10-20) Glucose (70-99(Fasting)) mg/dl POC Glucose 279 H 259 H 228 H (70-99) mg/dl 07/13/24 07/13/24 07/13/24 Range/Units 16:59 17:33 18:03 RBC (4.20-5.40) M/uL Hgb (12.0-16.0) g/dl POC Hgb (12.0-16.0) g/dl Hct (37.0-47.0) % POC Hct (37-47) % MCH (25.0-34.0) pg MCHC (32.0-36.0) g/dL RDW Std Deviation (36.4-46.3) fL RDW Coeff of [place] (11.5-14.5) % POC pCO2 (35-46) mmHg POC pO2 (80-95) mmHg POC HCO3 (19-24) huang/L POC Total CO2 (24-31) mmol/L POC Base Excess (-9-1.8) huang/L Carbon Dioxide (21-32) mmol/L BUN (6-23) mg/dl Creatinine (0.6-1.2) mg/dl BUN/Creatinine Ratio (10-20) Glucose (70-99(Fasting)) mg/dl POC Glucose 236 H 225 H 207 H (70-99) mg/dl 07/13/24 07/13/24 07/14/24 Range/Units 18:04 20:20 00:11 RBC (4.20-5.40) M/uL Hgb (12.0-16.0) g/dl POC Hgb 11.6 L (12.0-16.0) g/dl Hct (37.0-47.0) % POC Hct 34 L (37-47) % MCH (25.0-34.0) pg MCHC (32.0-36.0) g/dL RDW Std Deviation (36.4-46.3) fL RDW Coeff of [place] (11.5-14.5) % POC pCO2 53 H (35-46) mmHg POC pO2 59 L (80-95) mmHg POC HCO3 34 H (19-24) huang/L POC Total CO2 36 H (24-31) mmol/L POC Base Excess 10.0 H (-9-1.8) huang/L Carbon Dioxide (21-32) mmol/L BUN (6-23) mg/dl Creatinine (0.6-1.2) mg/dl BUN/Creatinine Ratio (10-20) Glucose (70-99(Fasting)) mg/dl POC Glucose 263 H 247 H (70-99) mg/dl 07/14/24 07/14/24 07/14/24 Range/Units 04:14 06:29 08:18 RBC 4.19 L (4.20-5.40) M/uL Hgb 10.2 L (12.0-16.0) g/dl POC Hgb (12.0-16.0) g/dl Hct 34.4 L (37.0-47.0) % POC Hct (37-47) % MCH 24.3 L (25.0-34.0) pg MCHC 29.7 L (32.0-36.0) g/dL RDW Std Deviation 57.2 H (36.4-46.3) fL RDW Coeff of [place] 19.6 H (11.5-14.5) % POC pCO2 (35-46) mmHg POC pO2 (80-95) mmHg POC HCO3 (19-24) huang/L POC Total CO2 (24-31) mmol/L POC Base Excess (-9-1.8) huang/L Carbon Dioxide 35 H (21-32) mmol/L BUN 35 H (6-23) mg/dl Creatinine 1.24 H (0.6-1.2) mg/dl BUN/Creatinine Ratio 28.2 H (10-20) Glucose 189 H (70-99(Fasting)) mg/dl POC Glucose 194 H 242 H (70-99) mg/dl 07/14/24 07/14/24 Range/Units 12:12 12:14 RBC (4.20-5.40) M/uL Hgb (12.0-16.0) g/dl POC Hgb (12.0-16.0) g/dl Hct (37.0-47.0) % POC Hct (37-47) % MCH (25.0-34.0) pg MCHC (32.0-36.0) g/dL RDW Std Deviation (36.4-46.3) fL RDW Coeff of [place] (11.5-14.5) % POC pCO2 (35-46) mmHg POC pO2 (80-95) mmHg POC HCO3 (19-24) huang/L POC Total CO2 (24-31) mmol/L POC Base Excess (-9-1.8) huang/L Carbon Dioxide (21-32) mmol/L BUN (6-23) mg/dl Creatinine (0.6-1.2) mg/dl BUN/Creatinine Ratio (10-20) Glucose (70-99(Fasting)) mg/dl POC Glucose 340 H* 344 H* (70-99) mg/dl (1) Acute exacerbation of CHF (congestive heart failure) Heart failure type: unspecified Qualified Code(s): I50.9 - Heart failure, unspecified
--- NOTE | 2024-07-14 13:41 | Cardiology Progress Note ---
Date of Service July 14, 2024 Assessment & Plan (1) Permanent atrial fibrillation: (2) Acute on chronic heart failure with preserved ejection fraction (HFpEF): (3) Acute hypoxemic respiratory failure: (4) Chronic venous insufficiency: Plan Presentation with acute decompensated heart failure, HFpEF, obesity hypoventilation syndrome, pickwickian physiology - Compliance with oral diuretic therapy was an issue prior to arrival - Resume oral Torsemide, 40 mg/day - Avoiding spironolactone noting chronic use of potassium citrate for nephrolithiasis, intermittent borderline elevated potassium, CKD - CPAP therapy encouraged when napping during the day and every night. Permanent atrial fibrillation. Continue rate control with metoprolol and digoxin. Continue apixaban (Eliquis) anticoagulation. Hypertension. Controlled. Follow. Dyslipidemia. Continue atorvastatin 40 mg/day Outpatient cardiology follow-up. Please contact with any cardiology questions or concerns. Admission and Anticipated Discharge Date Admission Date: July 04, 2024 Supervising Physician Co-Signing Physician Notes Patient seen and personally examined. Assessment and plan as outlined above. Care and management personally endorsed. Will transition to oral diuretic. Discussed need for diuretic compliance, CHF instructions given Subjective Patient seen and examined after multiple thwarted attempts earlier this morning More alert after utilizing CPAP during the day yesterday and overnight. Breathing and fluid improved. No chest pain or palpitations. Participated in PT/OT earlier today, significantly reduced exercise tolerance; insurance will not cover rehab Cumulative I's and O's -20.4 L overall. Physical Exam Physical Exam: General: NAD. HENT: Normocephalic. Atraumatic. Eyes: PER. Conjunctiva pink, sclera clear. Neck: Neck veins not appreciated. Heart: Irregularly irregular at 80 bpm. No murmur. Lungs: Clear to auscultation. Abdomen: +BS. Soft. Nontender. No masses or organomegaly. Extremities: 1+ indurated edema. Stasis changes. No overt cellulitis. Limited neurological examination is without focal deficits. Distal pulses not appreciated. Results & Data Vital Signs (Past 12 Hours) Vital Signs Temp Pulse Pulse Pulse Pulse Pulse Pulse 07/14/24 12:50 07/14/24 11:52 36.7 C 84 07/14/24 09:30 94 H 93 H 94 H 94 H 07/14/24 07:59 36.8 C 98 H 07/14/24 03:48 85 04/10/25 03:00 36.8 C 84 Pulse Resp Resp Resp Resp Resp Resp 07/14/24 12:50 07/14/24 11:52 18 07/14/24 09:30 93 H 19 21 21 21 17 07/14/24 07:59 20 07/14/24 03:48 20 07/14/24 03:00 22 BP BP Pulse Ox Pulse Ox Pulse Ox Pulse Ox Pulse Ox 07/14/24 12:50 07/14/24 11:52 143/83 H 93 07/14/24 09:30 92 87 L 92 85 L 07/14/24 07:59 131/72 90 07/14/24 03:48 93 07/14/24 03:00 128/72 93 Pulse Ox O2 Del Method O2 Flow Rate O2 Flow Rate O2 Flow Rate O2 Flow Rate O2 Flow Rate 07/14/24 12:50 Nasal Cannula 2 07/14/24 11:52 Nasal Cannula 2 07/14/24 09:30 85 L 1 2 3 1 07/14/24 07:59 CPAP 07/14/24 03:48 3 07/14/24 03:00 CPAP 2 Laboratory Results CBC 07/14/24 Range/Units 06:29 WBC 9.53 (4.8-10.8) K/ul RBC 4.19 L (4.20-5.40) M/uL Hgb 10.2 L (12.0-16.0) g/dl Hct 34.4 L (37.0-47.0) % Plt Count 172 (130-400) K/uL Comprehensive Metabolic Panel 07/14/24 Range/Units 06:29 Sodium 142 (136-145) mmol/L Potassium 4.1 (3.5-5.1) mmol/L Chloride 100 (98-107) mmol/L Carbon Dioxide 35 H (21-32) mmol/L BUN 35 H (6-23) mg/dl Creatinine 1.24 H (0.6-1.2) mg/dl Glucose 189 H (70-99(Fasting)) mg/dl Calcium 9.7 (8.6-10.3) mg/dl Intake and Output 07/13/24 07/14/24 07/14/24 22:59 06:59 14:59 Intake Total 972.850 / 1085.505 Output Total 1800 / 1999 200 / 2000 Balance -827.150 / -914.495 -200 / -914.495 Intake: IV 72.850 / 185.505 Insulin Regular 250 units In 72.850 / 185.505 Sodium Chloride 0.9% 247.5 ml @ 21.7 UNITS/HR 21.7 mls/hr IV . [id number] [facility] Rx#:[id number] Oral 900 / 900 Output: Urine Amount (Catheter) 1799 Miller/Indwelling 1799 Other: Other Intake Source SIPS Weight 150.457 kg Weight Measurement Method Built in [facility]
[2024-07-14] MEDS: INSULIN HUMAN REGULAR PER UNIT 5 UNITS in SYRINGE 4.95 ML IV ONE (13:48)
[2024-07-15] MEDS: INSULIN ASPART PER UNIT CHARGE SC SCH (01:40)
[2024-07-15 07:09] LABS: BUN Creatinine Ratio 32.5 (10-20); Calcium 10.2 mg/dl (8.6-10.3); Creatinine Clr Calc Pharmacy 59.8 ml/min; Potassium 3.9 mmol/L (3.5-5.1)
[2024-07-15 07:51] VITALS: O2SAT 94
[2024-07-15] MEDS: HumuLIN-R 500 UNITS/ML VIAL SQ SCH (08:17)
[2024-07-15] MEDS: TORSEMIDE 20 MG TAB PO SCH (08:20)
--- NOTE | 2024-07-15 08:50 | Pharmacy Report ---
Pharmacy Glycemic Short Note 2 - Date of Service July 15, 2024 - Glycemic Short BSG Results (Last 24 hours): 07/14/24 07/14/24 07/14/24 12:12 12:14 14:40 Glucose POC Glucose 340 H* 344 H* 351 H* 07/14/24 07/14/24 07/14/24 14:42 16:42 20:11 Glucose POC Glucose 335 H* 289 H 232 H 07/15/24 07/15/24 07/15/24 01:33 05:25 06:18 Glucose 148 H POC Glucose 159 H 167 H 07/15/24 08:09 Glucose POC Glucose 195 H OUTPATIENT ANTIDIABETIC REGIMEN: * Humulin U-500 100 units ACHS * Metformin 1000mg BID * HbA1c 8.5% (07/04/24) ASSESSMENT: 07/15: * Tiffanie received 622 units of insulin yesterday: 460 units from U-500, 157 units from Novolog, and 5 units IV push. She also received 1000 mg of Metformin BID. BSGs are starting to improve: [phone] mg/dL yesterday. * Fasting BSG 195 mg/dL this AM. Continue with Metformin BID. Continue with increased U-500 dose that was started yesterday. Continue with Novolog correction factor only. 07/13: * Blood sugars improved overnight w/ IV insulin infusion * We will plan to transition back to SC today and will switch back to U-500 insulin (mimicking patient's home regimen) * Still unclear rationale for profound insulin resistance at this time. * Possible d/c in next couple of days. Will restart metformin to see if that helps with glycemic control. 07/12: * Blood sugars continue to be very poorly controlled * Attempted transition to TID NPH, but still above 300 mg/dL this afternoon * Discussed with hospitalist and will utilize temporary insulin gtt to more safely reduce blood sugars (concern for stacking/accumulation w/ increasing doses of NPH 07/11: * Blood sugars have been very poorly controlled over past 72 hours despite high doses of U-500 insulin (>500 unit of insulin/day) * Will trial change to NPH and Novolog with carb ratio today rather than increase U-500 doses further * Blood sugars remain elevated today, will see if improvement is noted throughout day. If not, may consider TID-QID U-500 tomorrow * Will utilize overnight checks given extent of hyperglycemia 07/09: * Tiffanie received 465 units of insulin yesterday (380 were basal as U-500, 85 were bolus) * Fasting BSG this AM elevated, will increase Humulin U-500 to approximately yesterday's insulin total to hopefully avoid the need for as much bolus correctional. This is an 18% over yesterday's dosage and 12% above home dosing regimen (some room for adjustment with A1c at 8.5%). No changes to NovoLog at this time. Will monitor trends daily to adjust dosage if needed. * She continues on Zosyn, no other glycemic stressors noted at this time. 07/08: * Patient received total 364 units of insulin yesterday (320 units were Humulin R U-500 and 44 units were bolus). * BSGs were [phone] mg/dl. * For better post-prandial coverage, added 80 units of U-500 insulin at lunch today to total 380 units of U-500 between all three meals. This is an 18% increase from yesterday. * Pre-lunch BSG was above 300 mg/dl since the U-500 dose was given late this AM and the pre-lunch BSG was checked only an hour later before the AM insulin dose could fully take effect. Anticipate BSGs to trend down this evening. 07/06: * Patient received 343 units of insulin yesterday (300 units were Humulin R U- 500 and 43 units were bolus). BSGs were still above goal range yesterday ([phone]/dL). * Fasting BSG was 138mg/dL this morning. Will continue U-500 dosing as is, but if BSGs elevated through the rest of the day today, may consider increasing just the AM dose since fasting was in the goal range. * Bolus parameters to continue without change. 07/05: * Tiffanie received 416 units of insulin yesterday (80 were Lantus, 186 bolus, and 150 were Humulin U-500) * Fasting BSG this improved with correctional insulin overnight, expect further improvement tomorrow with U-500 transition. No changes to basal regimen at this time, consider increase of U-500 if continually elevated * No carbohydrate ratio at this time, continue current correction factor. 07/04: * Tiffanie is a 73 YOF admitted with shortness of breath and a history of insulin dependent type 2 diabetes mellitus. Pharmacy has been consulted to assist with glycemic management while inpatient. She is familiar to the glycemic service from previous admissions * Initially started basal insulin at previously used dosing, MD decreased dosing this AM, plan to transition to U-500 with dinner at approx 75% home dosing. * NovoLog at previously used, very tight parameters, will remove carbohydrate ratio with addition of U-500. * She is on Zosyn and doxycycline IV currently, also received IV Solumedrol 60mg x1 yesterday evening which is likely contributing to hyperglycemia. PLAN FOR INPATIENT GLYCEMIC CONTROL: * Metformin 1000 mg PO BIDM * Basal insulin * U-500 insulin 120 units SC ACHS * Bolus insulin - start once insulin infusion discontinued * NovoLog per scale ACHS or Q6hrs while NPO * Goal range: 110-140 mg/dL * Correction Factor: 4 mg/dL/unit
--- NOTE | 2024-07-15 09:34 | Discharge Summary ---
Date of Service July 15, 2024 Admission HPI Per Admitting Provider 73-year-old female with past medical history significant for type 2 diabetes, dyslipidemia, gastroparesis due to diabetes, COPD, obstructive sleep apnea on CPAP, chronic diastolic CHF, history of CVA, persistent atrial fibrillation, hypertension, morbid obesity, GERD, CKD stage III, bipolar 2 disorder, major depression, former smoker comes because of shortness of breath. Patient says she is feeling short of breath for last 4 days. But got worse today. Also today she had temp spike. Recently was treated for sinus infection with doxycycline and was coughing a lot of thick phlegm but that decreased today.Was hypoxic on room air and currently on BiPAP. Denies any chest pain. Has some headache. Has some runny nose. No sore throat. No nausea. No abdominal pain. Somewhat constipated. Micturating okay. Hemodynamics are okay. Past medical history. As mentioned above. Past surgical history. Right breast biopsy. Colonoscopy, cystoscopy. Tonsillectomy. Repair of nasal septum. Total abdominal hysterectomy with removal of tubes. Social history. . Quit smoking 2012. Smoked 2 packs a day for 30 years. No alcohol use. No drug use. Family history. Father had allergies. COPD. Cancer. Diabetes. Mother had breast cancer. Admission Exam Per Admitting Provider General- Not in distress Head- atraumatic Eyes- PERRL. ENT- oropharynx clear Neck- supple, no JVD. Lungs- clear to auscultation no wheezing, mild bibasilar crackles Heart- regular rhythm; no murmur, no gallop. Abdomen- normal bowel sounds, soft, nontender, no distension Extremities- b/l lower extremity edema with chronic skin changes with erythema seen. Neuro- alert, oriented PERRL, no facial palsy; no dysarthria; moves extremities Principal Diagnosis Acute respiratory failure with hypoxia Acute on chronic diastolic heart failure Cellulitis Discharge Exam Constitutional + well hydrated and + obese; no acute distress Eyes PERRL, conjunctivae normal, anicteric sclerae ENMT external ear and nose normal, oropharynx normal Respiratory On nasal cannula, diminished breath sounds Cardiovascular Rate/Rhythm: + irregularly irregular Gastrointestinal (Abdomen) normal bowel sounds, soft, nontender, no hepatosplenomegaly Neurologic PERRL, EOMI, accommodation nl, no face palsy, no dysarthria Psychiatric A+Ox3, euthymic affect Discharge Data Allergies Allergy/AdvReac Type Severity Reaction Status Date / Time Cephalosporins Allergy Intermediate RASH Verified 07/03/24 22:50 clarithromycin Allergy Intermediate Rash Verified 07/03/24 22:50 Sulfa (Sulfonamide Allergy Intermediate "Sulfa Verified 07/03/24 22:50 Antibiotics) Drugs = rash" terconazole Allergy Intermediate ITCHING, Verified 07/03/24 22:50 BURNING clavulanic acid Allergy Unknown UNKNOWN Verified 07/03/24 22:50 clobetasol Allergy Unknown Unknown Verified 07/03/24 22:50 adhesive AdvReac Mild BAND-AIDS Verified 07/03/24 22:50 = SKIN IRRITATION Consultations 07/04/24 00:16 ED Decision to Admit Stat 07/04/24 08:00 Consult Cardiology Routine Ordered Studies 07/03/24 21:27 CT abd pelvis wo con Stat 07/04/24 02:41 CT chest diagnostic wo con Urgent Hospital Course (1) Acute exacerbation of CHF (congestive heart failure): 73-year-old female with past medical history significant for type 2 diabetes, dyslipidemia, gastroparesis due to diabetes, COPD, obstructive sleep apnea on CPAP, chronic diastolic CHF, history of CVA, persistent atrial fibrillation, hypertension, morbid obesity, GERD, CKD stage III, bipolar 2 disorder, major d epression, former smoker comes because of shortness of breath for 4 days Acute on chronic diastolic CHF Acute hypoxic respiratory failure Patient presented to the hospital with shortness of breath for 4 days Patient reports that she has not been taking torsemide for several days [employer] CT chest showed bilateral diffuse groundglass opacity concerning for pulmonary edema. Lung nodule seen in right upper lobe of 8 mm Echocardiogram in April 2023 shows EF of 60 to 65%; Echo this time shows EF of 60-65%; severely dilated left atrium. Patient was managed with IV diuresis She was evaluated by Cardiology inpatient Symptoms improved Patient discharged home to resume [employer] torsemide Counseled extensively on need for medication adherence. She reports she has enough torsemide at home and doesn't need refill 2 step showed patient needs 2L at rest and 3L with activity CM arranged home oxygen Bilateral lower extremity cellulitis: Completed antibiotics History of COPD: Stable Continue nebs prn Obstructive sleep apnea: CPAP/BiPAP nightly Type 2 diabetes: HbA1c is 8.5 She reports she follows with [facility] History of persistent atrial fibrillation: Rate controlled on metoprolol succinate, digoxin Continue Eliquis. Obesity Class III: Counseled patient about need for weight loss Follow up as outpatient Bipolar 2 disorder, Depression: On oxcarbazepine,continue Dyslipidemia: On statin,continue GERD: On famotidine and Protonix,continue Total Time Total Time Spent Total Time Spent (In Minutes): 45 Total Time Includes: Examination of the Patient, Discharge Planning and Medication Reconciliation Discharge Plan Discharge Items Patient Disposition: Home - Self-Care Reason For Visit: SOB, FEVER Discharge Diagnosis: Acute respiratory failure with hypoxia Acute on chronic diastolic heart failure Cellulitis Activity: Resume your previous activity Non-emergency contact: Primary Care Provider and Sign Language Translator Call non-emergency contact if: you have any medication questions and your symptoms worsen Follow-up/Referrals: Sabine Mosley DO [Primary Care Provider] - (Date & Time 07/20/2024 10:30 AM Provider: Sabine Mosley DO [facility] ) Diet: Carb Consistent or DM2, Heart Healthy and Low Sodium (2gm) Addtl Attending Provider Instructions: Mrs Mercado You were hospitalized and managed for the above listed diagnoses. It is very important that you take your meds including your water pills as prescribed. You are being discharged on nasal oxygen at 1L at rest and 3L with activity. Please ensure follow up with your Primary Doctor and Sign Language Translator. It was a pleasure taking care of you Pending Studies at Discharge: No Stand-Alone Forms: My [facility] [employer], Smoking Cessation Medications and DC Order Prescriptions: Continued Probiotic Acidophilus 250 million cell capsule 1,000 mmu cells PO BID biotin 1 mg capsule 1 mg PO DAILY coenzyme Q10 [Co Q-10] 10 mg capsule 10 mg PO DAILY loratadine 10 mg tablet 10 mg PO DAILY Anmyepar-Nyxpyg-OSS with vit D 750-30-1,000-1 nc-uo-fhzk-mg tablet 1 tab PO DAILY cranberry 500 mg capsule 1,000 mg PO DAILY Rx Instructions: administer with meals cinnamon bark [Cinnamon] 500 mg capsule 1,000 mg PO BID bisacodyl 5 mg tablet,delayed release (DR/EC) 5 mg PO DAILY PRN (Reason: constipation) vitamin B complex-folic acid 0.4 mg tablet 1 tab PO DAILY clobetasol 0.05 % cream 1 applic topical DAILY PRN (Reason: Skin Irritation) oxcarbazepine [Trileptal] 150 mg tablet 150 mg PO DAILY prazosin 1 mg capsule 1 mg PO HS potassium citrate 10 mEq (1,080 mg) tablet extended release 10 meq PO BID albuterol sulfate 90 mcg/actuation HFA aerosol inhaler 2 puff inhalation Q6H PRN (Reason: Shortness Of Breath Or Wheezing) triamcinolone acetonide 55 mcg aerosol,spray 2 spray intranasal DAILY Rx Instructions: administer into each nostril levalbuterol tartrate [Xopenex HFA] 45 mcg/actuation HFA aerosol inhaler 2 inh inhalation Q6H PRN (Reason: wheezing) Qty: 15 3RF Trelegy Ellipta 100-62.5-25 mcg blister with device 1 inh INHALATION DAILY Qty: 60 3RF levalbuterol HCl 0.63 mg/3 mL solution for nebulization 0.63 mg INHALATION Q4 PRN (Reason: Wheezing) Qty: 90 3RF famotidine 20 mg tablet 20 mg PO QAM pantoprazole 40 mg tablet,delayed release (DR/EC) 40 mg PO QAM metformin 1,000 mg tablet 1,000 mg PO BID triamcinolone acetonide 0.1 % Ointment 1 applic TOPICAL BID PRN (Reason: .flare ups) nystatin-triamcinolone 100,000-0.1 unit/g-% cream 1 applic TOPICAL BID PRN (Reason: .flare ups) montelukast 10 mg Tablet 10 mg PO QAM nystatin 100,000 unit/gram powder 1 applic TOPICAL BID PRN (Reason: Skin Irritation) Rx Instructions: Apply 0.5 g to groin ipratropium bromide 21 mcg (0.03 %) spray,non-aerosol 2 spray INTRANASAL [facility] Eliquis 5 mg Tablet 5 mg PO BID atorvastatin 40 mg tablet 40 mg PO QAM Humulin R U-500 (Conc) Kwikpen 500 unit/mL (3 mL) insulin pen 100 unit SUBCUT ACHS Rx Instructions: if blood glucose <200 give 100 units if blood glucose >200 give 120 units metoprolol succinate 100 mg tablet extended release 24 hr 100 mg PO BID Qty: 60 0RF omega-3 fatty acids 1,000 mg Capsule 1,000 mg PO QAM sucralfate [Carafate] 1 gram Tablet 1 g PO QID PRN (Reason: ACID REFLUX/UPSET STOMACH) acetaminophen [Arthritis Pain Relief (acetam)] 650 mg Tablet Extended Release 650 mg PO BID digoxin 125 mcg (0.125 mg) tablet 0.125 mg PO QAM pregabalin 50 mg capsule 50 mg PO TID diclofenac sodium 1 % Gel 2 g TOPICAL BID PRN (Reason: PAINFUL JOINTS) Women's One Daily 18 mg iron-400 mcg-500 mg Tablet 1 tab PO HS guaifenesin [Mucinex] 600 mg Tablet Extended Release 12hr 600 mg PO DAILY PRN (Reason: Congestion) acetaminophen 325 mg tablet 650 mg PO Q6H PRN (Reason: Pain) tramadol 50 mg tablet 50 mg PO HS PRN (Reason: pain) magnesium oxide 400 mg (241.3 mg magnesium) tablet 400 mg PO QAM tamsulosin 0.4 mg capsule 0.4 mg PO QAM torsemide 40 mg tablet 40 mg PO DAILY Discharge Orders: Discharge Order (Routine); Ordered 07/15/24 Ordered By: Ama Cullen/Other Patient Handouts: Managing Type 2 Diabetes Admission Data Admit Date/Time: 07/04/24 01:16 Attending Provider: Ama Coffman I. Admit Provider: Rakesh Palmer Primary Care Provider: Sabine Mosley Other Providers: [facility],Home Healthcare; Rakesh Palmer; IRB Approved Study,Gonzalo Tobin Other Interventions: Discharge Summary Assessment (RN) Last Done: 07/15/24 10:27
[2024-07-15 11:36] VITALS: BP 119/75; PULSE 79; RESP 20; TEMP 97.9
== END 2024-07-15 15:36 | disposition home health service (06) | DRG 291 ==
LOC: ED 20:37 → SUATTDRO 07-04 01:16 → 2S 07-04 01:16 → 2N 07-11 21:45